=== PATIENT | male | born 1935 | race Two or more races ===

== ENCOUNTER → 2019-11-28 08:22 | Outpatient (BNVA) | payer MEDICARE, SELFPAY | PROVIDERS: PCP Internal Medicine; Referring Provider Internal Medicine; Visit Provider Internal Medicine | DX: I48.0 Paroxysmal atrial fibrillation (principal); Z51.81 Encounter for therapeutic drug level monitoring; Z79.01 Long term (current) use of anticoagulants | CPT/HCPCS: 85610; 99211 ==

== ENCOUNTER → 2019-12-12 11:10 | Outpatient (BNVA) | payer MEDICARE, SELFPAY | PROVIDERS: PCP Internal Medicine; Visit Provider Internal Medicine | DX: I48.0 Paroxysmal atrial fibrillation (principal); Z51.81 Encounter for therapeutic drug level monitoring; Z79.01 Long term (current) use of anticoagulants | CPT/HCPCS: 85610 ==

== ENCOUNTER → 2019-12-20 08:06 | Outpatient (BNVA) | payer MEDICARE, SELFPAY | PROVIDERS: PCP Internal Medicine; Referring Provider Internal Medicine; Visit Provider Nurse Practitioner Family | DX: G47.33 Obstructive sleep apnea (adult) (pediatric) (principal) | CPT/HCPCS: 99204 ==

== ENCOUNTER → 2019-12-21 10:58 | Outpatient (BNVA) | payer MEDICARE, SELFPAY | PROVIDERS: PCP Internal Medicine; Referring Provider Internal Medicine; Visit Provider Orthopaedic Surgery | DX: M17.11 Unilateral primary osteoarthritis, right knee (principal); S83.241D Other tear of medial meniscus, current injury, right knee, subsequent encounter | CPT/HCPCS: 99212 ==

== ENCOUNTER → 2019-12-26 10:36 | Outpatient (BNVA) | payer MEDICARE, SELFPAY | PROVIDERS: PCP Internal Medicine; Visit Provider Internal Medicine | DX: I48.0 Paroxysmal atrial fibrillation (principal); Z51.81 Encounter for therapeutic drug level monitoring; Z79.01 Long term (current) use of anticoagulants | CPT/HCPCS: 85610; 99211 ==

== ENCOUNTER → 2020-01-09 10:36 | Outpatient (BNVA) | payer MEDICARE, SELFPAY | PROVIDERS: PCP Internal Medicine; Visit Provider Internal Medicine | DX: I48.0 Paroxysmal atrial fibrillation (principal); Z51.81 Encounter for therapeutic drug level monitoring; Z79.01 Long term (current) use of anticoagulants | CPT/HCPCS: 85610; 99211 ==

== ENCOUNTER 2020-01-14 11:07 | Emergency (ER) | payer MEDICARE, SELFPAY ==
[2020-01-14 11:48] VITALS: BP 123/52; PULSE 70; RESP 16; TEMP 38.1; O2SAT 97; BMI 38.5
[2020-01-14 12:23] VITALS: BP 117/51; PULSE 64; RESP 18; TEMP 37.5; O2SAT 96
--- NOTE | 2020-01-14 12:59 | ED.ABDPAIN ---
HPI - Abdominal Pain General Chief Complaint: Abdominal Pain Stated Complaint: abd, face, eye pain Time Seen by Provider: 01/14/20 12:58 Source: patient Mode of arrival: ambulatory Limitations: no limitations History of Present Illness HPI narrative: This is a 84-year-old male with past medical history as noted below including history of anemia, anxiety / depression, BPH, COPD not on oxygen, gastroesophageal reflux disease, prior history of CVA, hypercholesteremia, hypertension, obesity, obstructive sleep apnea, paroxysmal atrial fibrillation on Pradaxa/Eliquis, peripheral vascular disease with surgical history of left knee replacement, tonsillectomy, total hip replacement transurethral reduction of the prostate presenting today with complaint of 1 day of left-sided abdominal pain in the left lower quadrant. Pain described as sharp and achy intermittent. There is some associated nausea but no vomiting or diarrhea. No dysuria. Patient is noted to be febrile with T-max on triage of 100.6 he otherwise denies any rhinorrhea, cough. Denies any dysuria or hematuria. MD elicited complaint: abdominal pain Pertinent past history: none Onset (ago): hour(s) Pain Consistency: constant Location: [facility] Severity: moderate Pain scale (0-10): 5 Quality: stabbing and aching Migration to: no migration Exacerbating factors: nothing Relieving factors: nothing Associated symptoms: denies other symptoms Related Data Home Medications Medication Instructions Recorded Confirmed albuterol sulfate 90 mcg/actuation 2 puff INHALATION Q4-6H PRN 12/15/19 01/13/20 aerosol inhaler atorvastatin 80 mg tablet 80 mg PO DAILY 12/15/19 01/13/20 carvedilol 25 mg tablet 25 mg PO BID 12/15/19 01/13/20 chlorthalidone 25 mg tablet 25 mg PO DAILY 12/15/19 01/13/20 losartan 100 mg tablet 100 mg PO DAILY 12/15/19 01/13/20 multivitamin-ferrous 1 tab PO DAILY 12/15/19 01/13/20 fumarate-folic acid 18 mg-400 mcg tablet qzliwtbqnadc-ortqwpjq-jhltja tablet 1 tab PO DAILY 12/15/19 01/13/20 sennosides 8.6 mg tablet 8.6 mg PO DAILY 12/15/19 01/13/20 terazosin 5 mg capsule 5 mg PO DAILY 12/15/19 01/13/20 verapamil 180 mg 24 hr 180 mg PO DAILY 12/15/19 01/13/20 capsule,extended release warfarin 5 mg tablet 5 mg PO DAILY 12/15/19 01/13/20 Previous Rx's Medication Instructions Recorded warfarin 5 mg tablet 5 mg PO DAILY #90 tab 11/28/19 diaper,brief,adult,disposable #56 ea 12/15/19 adult pull ups XL #120 ea 12/28/19 duloxetine 30 mg capsule,delayed 30 mg PO DAILY #28 cap 01/10/20 release furosemide 20 mg tablet 20 mg PO DAILY #28 tab 01/10/20 amoxicillin-pot clavulanate 1 tab PO Q12H 10 Days #20 tab 01/14/20 [Augmentin] ondansetron HCl [Zofran] 4 mg PO Q8H PRN #10 tab 01/14/20 Allergies Allergy/AdvReac Type Severity Reaction Status Date / Time dabigatran etexilate Allergy Intermediate ITCHING Verified 12/26/19 11:11 [From PRADAXA] JORGE L Inhibitors Allergy Mild UNKNOWN, Verified 12/26/19 11:11 [Jorge L Inhibitors] FOUND IN MEDICAL RECORD 04/[address] GIPSON ezetimibe [From Zetia] Allergy Mild ANAPHYLAXIS Verified 12/26/19 11:11 apixaban [From ELIQUIS] Allergy Unknown UNKNOWN, Verified 12/26/19 11:11 rash atorvastatin [From LIPITOR] Allergy Unknown UNKNOWN Verified 12/26/19 11:11 rosuvastatin [Crestor] Allergy Unknown myalgia Verified 12/26/19 11:11 Review of Systems Review of Systems Constitutional: No Weight loss, No Fever, No Chills, No Night Sweats, No Fatigue, No Malaise ENT/Mouth: No Hearing loss, No Ear Pain, No Nasal Congestion, No Sinus Pain, No Hoarseness, No sore throat, No Rhinorrhea, No Swallowing Difficulty Eyes: No Eye Pain, No Swelling, No Redness, No Foreign Body, No Discharge, No Vision Changes Cardiovascular: No Chest Pain, No SOB, No Dyspnea on Exertion, No Orthopnea, No Edema, No Palpitations Respiratory: No Cough, No Sputum, No Wheezing, No Smoke Exposure, No Dyspnea Gastrointestinal: + Nausea, No Vomiting, No Diarrhea, No Constipation, + abdominal Pain, No Hematochezia, No Melena Genitourinary: no irregular bleeding, No Dysuria, No Urinary Frequency, No Hematuria, No Urinary Incontinence, No Urgency, No Flank Pain, No Urinary Flow Changes, No Hesitancy Musculoskeletal: No joint pain, No Myalgias, No Joint Swelling Skin: No Skin Lesions, No rash Neuro: No Weakness, No Numbness, No Paresthesias, No Loss of Consciousness, No Dizziness, No Headache Psych: No Anxiety/Panic, No Depression, No SI/HI/AH/VH, No Social Issues Heme/Lymph: No Bruising, No Bleeding,No Lymphadenopathy Endocrine: No Polyuria, No Polydipsia, No Temperature Intolerance Yes all other systems are reviewed and are negative Physical Exam Vital Signs: Vital Signs: Last Vital Signs Temp 98.7 F 01/14/20 15:59 Pulse 62 01/14/20 15:59 Resp 14 01/14/20 15:59 BP 142/59 H 01/14/20 15:59 Pulse Ox 98 01/14/20 15:59 Body Mass Index 38.5 Reviewed Const: General: cooperative and healthy appearing; No acute distress or intoxicated appearing Nutritional Appearance: average body habitus Orientation/consciousness: patient oriented x3 HENMT: Head: Yes normal to inspection Ears: hearing grossly normal bilaterally Eyes: General: appearance normal, both eyes and all related structures Visual Rose: normal visual rose by confrontation Neck: Neck: Yes normal visual inspection and No tender Thyroid: Thyroid normal Chest: Chest palpation & inspection: normal inspection of the chest Resp: Effort & Inspection: normal respiratory effort Cardio: Jugular venous distension: no JVD GI: Inspection: Yes normal to inspection Palpation (GI): Soft to palpation, no guarding, not rigid and no masses Percussion: Yes normal to percussion Auscultation: normal bowel sounds : General: Yes no CVA tenderness Back/Spine/Pelvis: Back: no CVA tenderness Skin: General skin exam: no rashes or lesions noted Neuro: General: patient oriented x3 Extrem: General: Yes normal to inspection Course Course Course Narrative: Labs overall stable. No leukocytosis. Chest x-ray, COVID-19 negative[address]. [address] CT shows acute uncomplicated diverticulitis at the junction of the descending colon and sigmoid colon. No evidence of peritonitis. Patient well nontoxic appearing declined any pain medicine here. Will be discharged home with Augmentin/Zofran with clear return follow-up instructions. Stable for discharge. MDM - Abdominal Pain Differential Diagnosis Differential diagnosis: Likely abdominal pain, calculus of kidney and diverticulitis; Unlikely aortic dissection, acute appendicitis, bowel perforation, constipation, gastroenteritis, gastritis, mesenteric ischemia, pancreatitis, peptic ulcer disease, renal colic and small bowel obstruction Medical Records Attestation: I reviewed the patient's medical records. Lab Data Attestation: I reviewed the patient's lab results. Result diagrams: 01/14/20 13:51 01/14/20 13:51 Labs: Lab Results 01/14/20 01/14/20 01/14/20 Range/Units 13:51 13:51 13:51 WBC 10.3 (4.8-10.8) X10*3/uL RBC 3.93 L (4.60-5.80) X10*6/uL Hgb 11.0 L (14.0-18.0) g/dl Hct 34.3 L (42-52) % MCV 87.3 (80-98) fL MCH 28.0 (27.0-33.0) pg MCHC 32.1 (31.0-36.0) g/dl RDW 14.3 (11.0-16.0) % Plt Count 229 (160-400) X10*3/uL MPV 10.3 (9.4-12.4) fL Immature Gran % (Auto) 0.3 (0.0-0.4) % Neut % (Auto) 63.3 (45-73) % Lymph % (Auto) 27.1 (20-40) % Crisp % (Auto) 7.4 (2-11) % Eos % (Auto) 1.6 (0-4) % Baso % (Auto) 0.3 (0-2) % Lymph # (Auto) 2.8 (1.2-4.9) X10*3/uL Crisp # (Auto) 0.8 (0.1-1.2) X10*3/uL Eos # (Auto) 0.2 (0.0-0.4) X10*3/uL Baso # (Auto) 0.0 (0.0-0.2) X10*3/uL Abs Immat Gran (auto) 0.03 (0.00-0.03) X10*3/uL Absolute Neuts (auto) 6.5 (2.0-8.3) X10*3/uL Absolute Nucleated RBC 0.000 (0.0-0.012) X10*3/uL Nucleated RBC % (auto) 0.0 (0.0-0.2) /100WBC PT 38.5 H (10.8-13.0) SEC INR 3.2 H (0.9-1.1) APTT 46.2 H (24.1-38.0) SEC Sodium (135-145) mmol/L Potassium (3.3-5.1) mmol/l Chloride (96-108) mmol/L Carbon Dioxide (22-29) mmol/L Anion Gap (12-20) BUN (9-16) mg/dL Creatinine (0.5-1.4) mg/dL Estim Creat Clear Calc Estimated GFR Random Glucose (60-115) mg/dL Lactic Acid (0.5-2.0) mmol/L Calcium (8.4-10.2) mg/dL Total Bilirubin (0.0-1.0) mg/dL AST (5-37) U/L ALT (0-40) U/L Alkaline Phosphatase (39-117) U/L Total Protein (6.5-8.0) g/dL Albumin (3.5-5.0) g/dL Urine Color Urine Appearance Urine pH (5.0-8.0) Ur Specific [place] (1.005-1.025) Urine Protein (NEG-TRACE) MG/DL Urine Glucose (UA) (NEG) MG/DL Urine Ketones (NEG) MG/DL Urine Blood (NEG) Urine Nitrite (NEG) Ur Leukocyte Esterase (NEG) Urine RBC (0) /HPF Urine WBC (0-4) /HPF Ur Squamous Epith Cells /LPF Urine Bacteria /LPF COVID-19 (FERMIN) Negative (Negative) COVID-19 Clin Com See Note 01/14/20 01/14/20 01/14/20 Range/Units 13:51 13:51 13:51 WBC (4.8-10.8) X10*3/uL RBC (4.60-5.80) X10*6/uL Hgb (14.0-18.0) g/dl Hct (42-52) % MCV (80-98) fL MCH (27.0-33.0) pg MCHC (31.0-36.0) g/dl RDW (11.0-16.0) % Plt Count (160-400) X10*3/uL MPV (9.4-12.4) fL Immature Gran % (Auto) (0.0-0.4) % Neut % (Auto) (45-73) % Lymph % (Auto) (20-40) % Crisp % (Auto) (2-11) % Eos % (Auto) (0-4) % Baso % (Auto) (0-2) % Lymph # (Auto) (1.2-4.9) X10*3/uL Crisp # (Auto) (0.1-1.2) X10*3/uL Eos # (Auto) (0.0-0.4) X10*3/uL Baso # (Auto) (0.0-0.2) X10*3/uL Abs Immat Gran (auto) (0.00-0.03) X10*3/uL Absolute Neuts (auto) (2.0-8.3) X10*3/uL Absolute Nucleated RBC (0.0-0.012) X10*3/uL Nucleated RBC % (auto) (0.0-0.2) /100WBC PT (10.8-13.0) SEC INR (0.9-1.1) APTT (24.1-38.0) SEC Sodium 140 (135-145) mmol/L Potassium 3.3 (3.3-5.1) mmol/l Chloride 104 (96-108) mmol/L Carbon Dioxide 25 (22-29) mmol/L Anion Gap 14 (12-20) BUN 16 (9-16) mg/dL Creatinine 1.00 (0.5-1.4) mg/dL Estim Creat Clear Calc 56.2 Estimated GFR > 60 Random Glucose 95 (60-115) mg/dL Lactic Acid 1.2 (0.5-2.0) mmol/L Calcium 8.3 L (8.4-10.2) mg/dL Total Bilirubin 0.5 (0.0-1.0) mg/dL AST 19 (5-37) U/L ALT 20 (0-40) U/L Alkaline Phosphatase 71 (39-117) U/L Total Protein 6.1 L (6.5-8.0) g/dL Albumin 3.9 (3.5-5.0) g/dL Urine Color YELLOW Urine Appearance CLEAR Urine pH 6.5 (5.0-8.0) Ur Specific [place] 1.010 (1.005-1.025) Urine Protein NEG (NEG-TRACE) MG/DL Urine Glucose (UA) NEG (NEG) MG/DL Urine Ketones NEG (NEG) MG/DL Urine Blood NEG (NEG) Urine Nitrite NEG (NEG) Ur Leukocyte Esterase NEG (NEG) Urine RBC 0 (0) /HPF Urine WBC 0 (0-4) /HPF Ur Squamous Epith Cells TRACE /LPF Urine Bacteria NONE /LPF COVID-19 (FERMIN) (Negative) COVID-19 Clin Com Imaging Data CT scan - abdomen: Radiologist's impression: [place] [id number] CT Scan Report Signed Patient: Pal Da Silva SRMR#: [id number] : 1935cct:[id number] Age/Sex: 84 / MADM Date: 01/14/20 Loc: HO.ED Attending Dr: Ordering Physician: Bo Pierce NP Date of Service: 01/14/20 Procedure(s): CT abdomen pelvis wo con Accession Number(s): [id number] cc: Bo Pierce NP~ EXAMINATION: CT ABDOMEN AND PELVIS WITHOUT CONTRAST CLINICAL INFORMATION: Left-sided abdominal pain and fever COMPARISON: CT abdomen pelvis 11/15/2019 TECHNIQUE: Multidetector volumetric imaging was performed from the superior aspect of the liver through the pubic symphysis. Sagittal and coronal reformatted images were obtained on the technologist's workstation. This CT examination was performed using dose optimization techniques as appropriate, variously including the following: *Automated exposure control *Adjustment of mA and/or kV according to patient size (this includes techniques or standardized protocols for targeted exams where dose is matched to indication/reason for exam; i.e. extremities or head) *Use of iterative reconstruction technique DLP: 919 mGy-cm FINDINGS: LUNG BASES: Old left-sided rib fractures are seen. No infiltrates or effusions are present. LIVER, GALLBLADDER, AND BILIARY TREE: The liver is normal in size, shape, and attenuation. No focal hepatic lesion or biliary ductal dilatation is present. The gallbladder is unremarkable with no evidence of radiopaque gallstones, gallbladder wall thickening, or obvious pericholecystic inflammatory changes. PANCREAS: Unremarkable. SPLEEN: Unremarkable. ADRENAL GLANDS: Unremarkable. KIDNEYS AND URETERS: The kidneys are normal in size, shape, and attenuation. No hydronephrosis, hydroureter, or calculi seen. No perinephric stranding. BLADDER: Unremarkable. GASTROINTESTINAL TRACT: Diverticular changes are present in the colon, at the junction of the descending colon and sigmoid colon there are pericolonic inflammatory changes present with thickening of the anterior pararenal and lateral conal fascia consistent with acute diverticulitis. No extraluminal air or drainable fluid collection is seen. The small and large bowel are otherwise unremarkable. The appendix is is not seen. ABDOMINAL WALL: No significant hernia is appreciated. Tiny periumbilical hernia seen containing only fat. LYMPH NODES: No retroperitoneal lymphadenopathy seen. VASCULAR: Calcific atherosclerotic changes present in the aorta and iliofemoral vessels PELVIC VISCERA: Prostate and seminal vesicles appear normal. OSSEOUS STRUCTURES: A right hip prosthesis is present. Degenerative changes present in the spine with grade 1 anterolisthesis of L5 upon S1 with associated L5 bilateral pars defects. CT/CT abdomen pelvis wo con IMPRESSION: Acute uncomplicated diverticulitis at the junction of the descending colon and sigmoid colon. Dictated By:JACKSON CAZARES MD Signed By:<Electronically signed by JACKSON CAZARES MD in OV>01/14/20 1507 DD/ 1315 TD/TT: [employer] Operator: PAMELA Chest x-ray: Attestation: I personally reviewed and interpreted this imaging study as follows: Radiologist's impression: [address] [address] XRay Report Signed Patient: Pal Da Silva SRMR#: [id number] : 1936Acct:[id number] Age/Sex: 84 / MADM Date: 01/14/20 Loc: HO.ED Attending Dr: Ordering Physician: Bo Pierce NP Date of Service: 01/14/20 Procedure(s): XR chest 1V Accession Number(s): [id number] cc: Bo Pierce COVERING AND LINING SUPERVISOR~ EXAMINATION: XR CHEST CLINICAL INFORMATION: Fever COMPARISON: Previous chest x-ray February 2019 TECHNIQUE: Frontal view of the chest was obtained. FINDINGS: The cardiac and mediastinal contours are stable. The lungs are clear. There is no pleural effusion or pneumothorax. There are degenerative changes of the spine and right shoulder. XR/XR chest 1V IMPRESSION: No evidence of pneumonia. Dictated By:DAVEY SORIANO MD Signed By:<Electronically signed by DAVEY SORIANO MD in OV>01/14/20 1322 DD/ 1300 TD/TT: [employer] Operator: BETTY Discharge Plan Discharge Clinical Impression: Diverticulitis Patient Disposition: Home, Self-Care Instructions: Diverticulitis (ED), Diverticulitis Diet (ED) Prescriptions: New amoxicillin-pot clavulanate [Augmentin] 875-125 mg tablet 1 tab PO Q12H 10 Days Qty: 20 RF: 0 ondansetron HCl [Zofran] 4 mg tablet 4 mg PO Q8H PRN (Reason: nausea and vomiting) Qty: 10 RF: 0 No Action (DME) adult pull ups XL See Rx Instructions .Route .MEDSUPPLY Qty: 120 RF: 5 duloxetine 30 mg capsule,delayed release(DR/EC) 30 mg PO DAILY Qty: 28 RF: 3 furosemide 20 mg tablet 20 mg PO DAILY Qty: 28 RF: 3 Cerovite Advanced Formula 18-400 mg-mcg tablet 1 tab PO DAILY RF: 0 sennosides [Natural Senna Laxative] 8.6 mg tablet 8.6 mg PO DAILY RF: 0 omjzjqwnocjt-ceawioro-lxslhn Tablet 1 tab PO DAILY RF: 0 atorvastatin 80 mg tablet 80 mg PO DAILY RF: 0 terazosin 5 mg capsule 5 mg PO DAILY RF: 0 albuterol sulfate [ProAir HFA] 90 mcg/actuation HFA aerosol inhaler 2 puff inhalation Q4-6H PRN (Reason: Shortness Of Breath) RF: 0 losartan 100 mg tablet 100 mg PO DAILY RF: 0 carvedilol 25 mg tablet 25 mg PO BID RF: 0 verapamil [Verelan] 180 mg capsule,ext rel. pellets 24 hr 180 mg PO DAILY RF: 0 chlorthalidone 25 mg tablet 25 mg PO DAILY RF: 0 warfarin 5 mg tablet 5 mg PO DAILY RF: 0 (DME) Depend Underwear For Men L-XL Misc See Rx Instructions .ROUTE .MEDSUPPLY Qty: 56 RF: 0 warfarin 5 mg tablet 5 mg PO DAILY Qty: 90 RF: 0 Referrals: Po,Kenny Chavez MD [Primary Care Provider] - 5 days PMF Past Medical History Attestation statement: The following information was validated with the patient. Medical History Anemia Anxiety and depression BPH (benign prostatic hyperplasia) COPD (chronic obstructive pulmonary disease) GERD (gastroesophageal reflux disease) History of CVA (cerebrovascular accident) History of rib fracture Hypercholesterolemia Hypertension Obesity (BMI 30-39.9) Obstructive sleep apnea Paroxysmal atrial fibrillation Peripheral vascular disease Protrusion of lumbar intervertebral disc Surgical History History of left knee replacement History of tonsillectomy History of total right hip replacement History of transurethral resection of prostate Family History Family History (Updated 12/15/19 @ 09:07 by CHRISTY Patterson) Father No problems noted. Mother No problems noted. Social History Social History (Updated 12/21/19 @ 11:10 by Brittny Maldonado CMA) Smoking Status: Never smoker Use of substances other than those prescribed or required for medical reasons: No Advance Directives: No Advance Directives Information Provided: Yes Current occupational status: retired Current occupation: Right Handed
--- NOTE | 2020-01-14 13:00 | ECG_ITS ---
Test Reason : LLQPAIN Blood Pressure : / mmHG Vent. Rate : 063 BPM Atrial Rate : 063 BPM P-R Int : 264 ms QRS Dur : 132 ms QT Int : 470 ms P-R-T Axes : 052 003 057 degrees QTc Int : 480 ms Sinus rhythm with 1st degree A-V block Right bundle branch block Possible Lateral infarct (cited on or before 21-APR-2017) Abnormal ECG When compared with ECG of 15-NOV-2019 00:35, No significant change was found Referred By: Bo Pierce Electronically Signed By:MARIA FERNANDA ZHANG MD
--- NOTE | 2020-01-14 13:15 | CT_ITS ---
EXAMINATION: CT ABDOMEN AND PELVIS WITHOUT CONTRAST CLINICAL INFORMATION: Left-sided abdominal pain and fever COMPARISON: CT abdomen pelvis 11/15/2019 TECHNIQUE: Multidetector volumetric imaging was performed from the superior aspect of the liver through the pubic symphysis. Sagittal and coronal reformatted images were obtained on the technologist's workstation. This CT examination was performed using dose optimization techniques as appropriate, variously including the following: *Automated exposure control *Adjustment of mA and/or kV according to patient size (this includes techniques or standardized protocols for targeted exams where dose is matched to indication/reason for exam; i.e. extremities or head) *Use of iterative reconstruction technique DLP: 919 mGy-cm FINDINGS: LUNG BASES: Old left-sided rib fractures are seen. No infiltrates or effusions are present. LIVER, GALLBLADDER, AND BILIARY TREE: The liver is normal in size, shape, and attenuation. No focal hepatic lesion or biliary ductal dilatation is present. The gallbladder is unremarkable with no evidence of radiopaque gallstones, gallbladder wall thickening, or obvious pericholecystic inflammatory changes. PANCREAS: Unremarkable. SPLEEN: Unremarkable. ADRENAL GLANDS: Unremarkable. KIDNEYS AND URETERS: The kidneys are normal in size, shape, and attenuation. No hydronephrosis, hydroureter, or calculi seen. No perinephric stranding. BLADDER: Unremarkable. GASTROINTESTINAL TRACT: Diverticular changes are present in the colon, at the junction of the descending colon and sigmoid colon there are pericolonic inflammatory changes present with thickening of the anterior pararenal and lateral conal fascia consistent with acute diverticulitis. No extraluminal air or drainable fluid collection is seen. The small and large bowel are otherwise unremarkable. The appendix is is not seen. ABDOMINAL WALL: No significant hernia is appreciated. Tiny periumbilical hernia seen containing only fat. LYMPH NODES: No retroperitoneal lymphadenopathy seen. VASCULAR: Calcific atherosclerotic changes present in the aorta and iliofemoral vessels PELVIC VISCERA: Prostate and seminal vesicles appear normal. OSSEOUS STRUCTURES: A right hip prosthesis is present. Degenerative changes present in the spine with grade 1 anterolisthesis of L5 upon S1 with associated L5 bilateral pars defects. CT/CT abdomen pelvis wo con IMPRESSION: Acute uncomplicated diverticulitis at the junction of the descending colon and sigmoid colon.
--- NOTE | 2020-01-14 13:55 | PC.NURSE ---
PT DIFFICULT STICK. APRIL RN TO BEDSIDE WITH ULTRASOUND
[2020-01-14] MEDS: 0.9 % Sodium Chloride 1,000 ML 1000 ML IV (13:59)
[2020-01-14 14:22] LABS: MANUAL DIFF FLAG NO
[2020-01-14 14:26] LABS: Basophils Percent Auto 0.3 % (0-2); Eosinophils Absolute Auto 0.2 X10*3/uL (0.0-0.4); Eosinophils Percent Auto 1.6 % (0-4); Hematocrit 34.3 % (42-52); Imm Gran Abs Auto 0.03 X10*3/uL (0.00-0.03); Imm Gran Pct Auto 0.3 % (0.0-0.4); Lymphocytes Absolute Auto 2.8 X10*3/uL (1.2-4.9); Lymphocytes Percent Auto 27.1 % (20-40); Mean Corpuscular HGB Conc 32.1 g/dl (31.0-36.0); Mean Corpuscular Volume 87.3 fL (80-98); Mean Platelet Volume 10.3 fL (9.4-12.4); Monocytes Absolute Auto 0.8 X10*3/uL (0.1-1.2); Monocytes Percent Auto 7.4 % (2-11); Neutrophils Absolute Auto 6.5 X10*3/uL (2.0-8.3); Neutrophils Percent Auto 63.3 % (45-73); Platelet Count 229 X10*3/uL (160-400); Red Blood Count 3.93 X10*6/uL (4.60-5.80); Red Cell Distribution Width 14.3 % (11.0-16.0); White Blood Count 10.3 X10*3/uL (4.8-10.8)
[2020-01-14 14:31] LABS: Glucose Urine UA NEG (NEG); Leukocyte Esterase Urine NEG (NEG); Nitrite Urine NEG (NEG); PH 6.5 (5.0-8.0); Urine Blood NEG (NEG); Urine Ketones NEG (NEG); Urine Protein NEG (NEG-TRACE)
[2020-01-14 14:35] LABS: Appearance Urine CLEAR; Color Urine YELLOW
[2020-01-14 14:37] VITALS: BP 134/54; PULSE 63; RESP 16; TEMP 37; O2SAT 98
[2020-01-14 14:37] LABS: INTERNATIONAL NORM RATIO 3.2 (0.9-1.1); Prothrombin Time 38.5 SEC (10.8-13.0)
[2020-01-14 14:38] LABS: RBC Urine 0 /HPF (0); Squamous Epithelial Cell Urine TRACE /LPF; WBC Urine 0 /HPF (0-4)
[2020-01-14 14:40] LABS: COVID-19 Test Negative (Negative); IDNOW Serial# 9DD0AD1C; Partial Thromboplastin Time 46.2 SEC (24.1-38.0)
[2020-01-14 14:43] LABS: Lactic Acid 1.2 mmol/L (0.5-2.0)
[2020-01-14 14:48] LABS: Alanine Aminotransferase 20 U/L (0-40); Albumin Level 3.9 g/dL (3.5-5.0); Alkaline Phosphatase 71 U/L (39-117); Anion Gap 14 (12-20); Aspartate Amino Transferase 19 U/L (5-37); Bilirubin Total 0.5 mg/dL (0.0-1.0); Blood Urea Nitrogen 16 mg/dL (9-16); Calcium 8.3 mg/dL (8.4-10.2); Carbon Dioxide 25 mmol/L (22-29); Chloride 104 mmol/L (96-108); Creatinine Clr Calc Pharmacy 56.2; Estimated Glomerular Filt Rate > 60; Glucose Random 95 mg/dL (60-115); Potassium 3.3 mmol/l (3.3-5.1); Sodium 140 mmol/L (135-145); Total Protein 6.1 g/dL (6.5-8.0)
--- NOTE | 2020-01-14 15:11 | PC.NURSE ---
PT REFUSED MORPHINE AND ZOFRAN, STATING HE DID IS NOT EXPERIENCING PAIN AT THIS TIME, AND WOULD LIKE TO BE ABLE TO DRIVE HOME IF HE HAS TO. ALSO DENYING ANY NAUSEA AT THIS TIME. PAIN CURRENTLY CONTROLLED AT REST, BUT REMAINS REPRODUCIBLE IN [facility].
[2020-01-14 15:59] VITALS: BP 142/59; PULSE 62; RESP 14; TEMP 37.1; O2SAT 98
== END 2020-01-14 16:29 | disposition home or self-care (01) ==
PROVIDERS: Nurse Practitioner Primary Care; Emergency Provider Emergency Medicine; PCP Internal Medicine
DX: K57.92 Diverticulitis of intestine, part unspecified, without perforation or abscess without bleeding (principal); J44.9 Chronic obstructive pulmonary disease, unspecified; R10.12 Left upper quadrant pain; Z79.899 Other long term (current) drug therapy; Z20.828 Contact with and (suspected) exposure to other viral communicable diseases
CPT/HCPCS: 36415; 71045; 74176; 80053; 81001; 83605; 85025; 85610; 85730; 87040; 87635; 93005; 96361; 96374; 96375; 99284

== ENCOUNTER → 2020-01-16 13:46 | Outpatient (BNVA) | payer MEDICARE, SELFPAY | PROVIDERS: PCP Internal Medicine; Referring Provider Internal Medicine; Visit Provider Nurse Practitioner Family | DX: K21.9 Gastro-esophageal reflux disease without esophagitis (principal); K59.00 Constipation, unspecified | CPT/HCPCS: Q3014 ==

== ENCOUNTER → 2020-01-31 14:12 | Outpatient (BNVA) | payer MEDICARE, SELFPAY | PROVIDERS: PCP Internal Medicine; Visit Provider Internal Medicine | DX: I48.0 Paroxysmal atrial fibrillation (principal); Z51.81 Encounter for therapeutic drug level monitoring; Z79.01 Long term (current) use of anticoagulants | CPT/HCPCS: 85610; 99211 ==

== ENCOUNTER → 2020-02-07 09:09 | Outpatient (BNVA) | payer MEDICARE, SELFPAY | PROVIDERS: Visit Provider Student in an Organized Health Care Education/Training Program | DX: Z76.89 Persons encountering health services in other specified circumstances (principal) | CPT/HCPCS: 99202 ==

== ENCOUNTER 2020-02-07 13:32 | Emergency (ER) | payer MEDICARE, SELFPAY ==
[2020-02-07 13:34] VITALS: BP 135/66; PULSE 61; RESP 18; TEMP 37.1; O2SAT 98; BMI 37.3
[2020-02-07 16:00] VITALS: BP 132/62; PULSE 66; RESP 16; TEMP 37.1; O2SAT 100
== END 2020-02-07 16:30 | disposition left against medical advice (07) ==
PROVIDERS: Emergency Provider Emergency Medicine; PCP Internal Medicine
DX: R10.9 Unspecified abdominal pain (principal)
CPT/HCPCS: 99283

== ENCOUNTER 2020-02-08 14:33 | Inpatient (IN) | payer MEDICARE, SELFPAY ==
[2020-02-08 14:41] VITALS: BP 131/43; BP 135/70; PULSE 60; PULSE 85; RESP 16; TEMP 36.5; O2SAT 100; O2SAT 98; BMI 36.6
--- NOTE | 2020-02-08 14:49 | ECG_ITS ---
Test Reason : ABD PAIN Blood Pressure : / mmHG Vent. Rate : 053 BPM Atrial Rate : 053 BPM P-R Int : 230 ms QRS Dur : 124 ms QT Int : 490 ms P-R-T Axes : 044 008 073 degrees QTc Int : 459 ms Sinus bradycardia with 1st degree A-V block Right bundle branch block Abnormal ECG When compared with ECG of 14-JAN-2020 15:17, No significant changes seen Referred By: Nena Dumont Electronically Signed By:Jose F Lee
--- NOTE | 2020-02-08 14:53 | ED_ITS ---
HPI - Abdominal Pain General Chief Complaint: Abdominal Pain Stated Complaint: ABDPAIN Time Seen by Provider: 02/08/20 14:33 Source: patient and EMS Mode of arrival: EMS Limitations: no limitations History of Present Illness HPI narrative: 84-year-old male with past medical history of GERD, obstructive sleep apnea, BPH, hypertension, hyperlipidemia, AFib on Coumadin, COPD, hypertension presenting to the emergency department with abdominal pain x4 days. He states the pain is diffuse across his abdomen, described as a burning sensation. He states that has been intermittent pain but today has been more constant. He does suffer from constipation but had a bowel movement earlier today. He denies fevers, chest pain, cough, vomiting, dysuria, hematuria. He has shortness of breath which is his baseline due to his COPD disease, not on supplemental oxygen. MD elicited complaint: abdominal pain Onset (ago): day(s) (4) Related Data Home Medications Medication Instructions Recorded Confirmed albuterol sulfate 90 mcg/actuation 2 puff INHALATION Q4-6H PRN 12/15/19 02/07/20 aerosol inhaler atorvastatin 80 mg tablet 80 mg PO DAILY 12/15/19 02/07/20 carvedilol 25 mg tablet 25 mg PO BID 12/15/19 02/07/20 chlorthalidone 25 mg tablet 25 mg PO DAILY 12/15/19 02/07/20 losartan 100 mg tablet 100 mg PO DAILY 12/15/19 02/07/20 multivitamin-ferrous 1 tab PO DAILY 12/15/19 02/07/20 fumarate-folic acid 18 mg-400 mcg tablet dsjbvauyrjpw-kwhszqrl-aewfug tablet 1 tab PO DAILY 12/15/19 02/07/20 sennosides 8.6 mg tablet 8.6 mg PO DAILY 12/15/19 02/07/20 terazosin 5 mg capsule 5 mg PO DAILY 12/15/19 02/07/20 verapamil 180 mg 24 hr 180 mg PO DAILY 12/15/19 02/07/20 capsule,extended release warfarin 5 mg tablet 5 mg PO DAILY tab 02/07/20 02/07/20 Previous Rx's Medication Instructions Recorded diaper,brief,adult,disposable #56 ea 12/15/19 adult pull ups XL #120 ea 12/28/19 duloxetine 30 mg capsule,delayed 30 mg PO DAILY #28 cap 11/17/20 release furosemide 20 mg tablet 20 mg PO DAILY #28 tab 01/10/20 ondansetron HCl [Zofran] 4 mg PO Q8H PRN #10 tab 01/14/20 docusate sodium 100 mg capsule 100 mg PO DAILY #30 cap 01/16/20 fluticasone furoate 200 1 ea PO DAILY #56 cap 01/24/20 mcg-vilanterol 25 mcg/dose inhalation powder pantoprazole 40 mg tablet,delayed 40 mg PO DAILY #30 tab 01/24/20 release Allergies Allergy/AdvReac Type Severity Reaction Status Date / Time dabigatran etexilate Allergy Intermediate ITCHING Verified 02/07/20 09:24 [From PRADAXA] JORGE L Inhibitors Allergy Mild UNKNOWN, Verified 02/07/20 09:24 [Jorge L Inhibitors] FOUND IN MEDICAL RECORD 04/[address] GIPSON ezetimibe [From Zetia] Allergy Mild ANAPHYLAXIS Verified 02/07/20 09:24 apixaban [From ELIQUIS] Allergy Unknown UNKNOWN, Verified 02/07/20 09:24 rash atorvastatin [From LIPITOR] Allergy Unknown UNKNOWN Verified 02/07/20 09:24 rosuvastatin [Crestor] Allergy Unknown myalgia Verified 02/07/20 09:24 Review of Systems Constitutional: Denies fever(s) and Denies headache(s) Eyes: Reports no additional eye complaints Denies headache(s) and Denies nasal congestion Cardiovascular: Denies chest pain Respiratory: Denies cough Gastrointestinal: Reports abdominal pain, Denies constipation, Denies diarrhea and Denies vomiting Genitourinary: Denies hematuria Comments: no dysuria Musculoskeletal: Denies back pain Denies headache(s) Hematologic/Lymphatic: Reports easy bleeding and Reports easy bruising Physical Exam Vital Signs: Vital Signs: Last Vital Signs Temp 99.2 F 02/08/20 15:14 Pulse 57 02/08/20 15:14 Resp 13 02/08/20 15:14 BP 126/46 L 02/08/20 15:14 Pulse Ox 99 02/08/20 15:14 Body Mass Index 36.6 Const: General: cooperative Orientation/consciousness: patient oriented x3 HENMT: Head: Yes atraumatic Eyes: Pupils: Equal, round and reactive pupils present Neck: Neck: Yes trachea midline and Yes supple Chest: Chest palpation & inspection: normal inspection of the chest Resp: Effort & Inspection: normal respiratory effort and able to speak in complete sentences Auscultation: clear to auscultation bilaterally Cardio: Rate: regular rate Rhythm: regular rhythm and abnormal rhythm irregularly irregular GI: Inspection: No distended Palpation (GI): Soft to palpation and Tenderness to palpation present (GI) (diffuse tendernes but more focal to LLQ ) : General: Yes no CVA tenderness Back/Spine/Pelvis: Back: no CVA tenderness Skin: Other: warm skin Rashes: no rashes Neuro: General: patient oriented x3 and moves all extremities Cranial nerves: Yes Equal, round and reactive pupils present Extrem: General: No edema Course Reevaluation(s) Reevaluation #1: pt. resting, VS remain stable. He states he is resting, abdominal pain improving. Time: 16:07 Reevaluation #2: Labs reviewed, leukocytosis of 14.4, stable anemia, baseline, BUN is elevated. Normal LFTs. Normal lipase. Troponin unremarkable. Urine is negative for infection. Waiting on CT imaging of his abdomen. Time: 16:43 Reevaluation #3: CT reviewed, pt.having persistent inflammatory changes and focally tender to abdomen will admit and provide IV antibiotics. Pt. aware of admission. Awaiting database administration manager back from hospitalist. Time: 18:20 Additional Reevaluation(s): 18:39, hospitalist called and accepted the pt. MDM - Abdominal Pain MDM Narrative Medical decision making narrative: 84-year-old male presenting to the emergency department with abdominal pain x4 days, recent diverticulitis on 01/13, history of prior cholecystectomy Vitals stable, nontoxic appearing, hemodynamically stable Check basic labs to assess for leukocytosis, anemia, renal dysfunction. We will check for electrolyte abnormalities. Will check LFTs for acute hepatobiliary disease, lipase for acute pancreatitis. Will check UA for signs of infection. Patient has diffuse tenderness will plan for abdominal CT. He had a recent diagnosis of diverticulitis that was treated with antibiotics pain could be secondary to gastritis however this is a diagnosis of exclusion. Will assess for perforation on CT as well, however the this has been several weeks since his treatment therefore this is lower suspicion. Mesenteric ischemia considered given his history however pain is not out of proportion to exam. Less likely h ave an obstruction given he is not vomiting, had a bowel movement today. Will check troponin and EKG for signs of ischemia as well. Will check INR given he is on Coumadin. EKG is sinus bradycardia rate 53, T wave inversion V1, RBBB, no STEMI Will give him a GI cocktail and monitor on the property assessment monitor Lab Data Result diagrams: 02/08/20 15:48 02/08/20 15:48 Labs: Lab Results 02/08/20 02/08/20 02/08/20 Range/Units 15:48 15:48 15:48 WBC 14.4 H (4.8-10.8) X10*3/uL RBC 3.98 L (4.60-5.80) X10*6/uL Hgb 11.3 L (14.0-18.0) g/dl Hct 35.1 L (42-52) % MCV 88.2 (80-98) fL MCH 28.4 (27.0-33.0) pg MCHC 32.2 (31.0-36.0) g/dl RDW 14.9 (11.0-16.0) % Plt Count 222 (160-400) X10*3/uL MPV 10.0 (9.4-12.4) fL Immature Gran % (Auto) 0.5 H (0.0-0.4) % Neut % (Auto) 72.6 (45-73) % Lymph % (Auto) 18.0 L (20-40) % [place] % (Auto) 8.5 (2-11) % Eos % (Auto) 0.3 (0-4) % Baso % (Auto) 0.1 (0-2) % Lymph # (Auto) 2.6 (1.2-4.9) X10*3/uL [place] # (Auto) 1.2 (0.1-1.2) X10*3/uL Eos # (Auto) 0.0 (0.0-0.4) X10*3/uL Baso # (Auto) 0.0 (0.0-0.2) X10*3/uL Abs Immat Gran (auto) 0.07 H (0.00-0.03) X10*3/uL Absolute Neuts (auto) 10.5 H (2.0-8.3) X10*3/uL Absolute Nucleated RBC 0.000 (0.0-0.012) X10*3/uL Nucleated RBC % (auto) 0.0 (0.0-0.2) /100WBC PT (10.8-13.0) SEC INR (0.9-1.1) Sodium 140 (135-145) mmol/L Potassium 4.2 D (3.3-5.1) mmol/l Chloride 107 (96-108) mmol/L Carbon Dioxide 27 (22-29) mmol/L Anion Gap 10 L (12-20) BUN 33 H D (9-16) mg/dL Creatinine 1.11 (0.5-1.4) mg/dL Estim Creat Clear Calc 49.2 Estimated GFR > 60 Random Glucose 118 H (60-115) mg/dL Lactic Acid (0.5-2.0) mmol/L Calcium 8.1 L (8.4-10.2) mg/dL Total Bilirubin 0.3 (0.0-1.0) mg/dL Direct Bilirubin 0.2 (0.0-0.5) mg/dL AST 21 (5-37) U/L ALT 26 (0-40) U/L Alkaline Phosphatase 57 (39-117) U/L Troponin I High Sens (<3.5-35.0) ng/L Total Protein 6.0 L (6.5-8.0) g/dL Albumin 3.9 (3.5-5.0) g/dL Lipase 24 (8-78) U/L Urine Color Urine Appearance Urine pH (5.0-8.0) Ur Specific [place] (1.005-1.025) Urine Protein (NEG-TRACE) MG/DL Urine Glucose (UA) (NEG) MG/DL Urine Ketones (NEG) MG/DL Urine Blood (NEG) Urine Nitrite (NEG) Ur Leukocyte Esterase (NEG) 02/08/20 02/08/20 02/08/20 Range/Units 15:48 15:48 15:48 WBC (4.8-10.8) X10*3/uL RBC (4.60-5.80) X10*6/uL Hgb (14.0-18.0) g/dl Hct (42-52) % MCV (80-98) fL MCH (27.0-33.0) pg MCHC (31.0-36.0) g/dl RDW (11.0-16.0) % Plt Count (160-400) X10*3/uL MPV (9.4-12.4) fL Immature Gran % (Auto) (0.0-0.4) % Neut % (Auto) (45-73) % Lymph % (Auto) (20-40) % [place] % (Auto) (2-11) % Eos % (Auto) (0-4) % Baso % (Auto) (0-2) % Lymph # (Auto) (1.2-4.9) X10*3/uL [place] # (Auto) (0.1-1.2) X10*3/uL Eos # (Auto) (0.0-0.4) X10*3/uL Baso # (Auto) (0.0-0.2) X10*3/uL Abs Immat Gran (auto) (0.00-0.03) X10*3/uL Absolute Neuts (auto) (2.0-8.3) X10*3/uL Absolute Nucleated RBC (0.0-0.012) X10*3/uL Nucleated RBC % (auto) (0.0-0.2) /100WBC PT 33.6 H (10.8-13.0) SEC INR 2.8 H (0.9-1.1) Sodium (135-145) mmol/L Potassium (3.3-5.1) mmol/l Chloride (96-108) mmol/L Carbon Dioxide (22-29) mmol/L Anion Gap (12-20) BUN (9-16) mg/dL Creatinine (0.5-1.4) mg/dL Estim Creat Clear Calc Estimated GFR Random Glucose (60-115) mg/dL Lactic Acid 1.4 (0.5-2.0) mmol/L Calcium (8.4-10.2) mg/dL Total Bilirubin (0.0-1.0) mg/dL Direct Bilirubin (0.0-0.5) mg/dL AST (5-37) U/L ALT (0-40) U/L Alkaline Phosphatase (39-117) U/L Troponin I High Sens 14.1 (<3.5-35.0) ng/L Total Protein (6.5-8.0) g/dL Albumin (3.5-5.0) g/dL Lipase (8-78) U/L Urine Color Urine Appearance Urine pH (5.0-8.0) Ur Specific [place] (1.005-1.025) Urine Protein (NEG-TRACE) MG/DL Urine Glucose (UA) (NEG) MG/DL Urine Ketones (NEG) MG/DL Urine Blood (NEG) Urine Nitrite (NEG) Ur Leukocyte Esterase (NEG) 02/08/20 Range/Units 15:48 WBC (4.8-10.8) X10*3/uL RBC (4.60-5.80) X10*6/uL Hgb (14.0-18.0) g/dl Hct (42-52) % MCV (80-98) fL MCH (27.0-33.0) pg MCHC (31.0-36.0) g/dl RDW (11.0-16.0) % Plt Count (160-400) X10*3/uL MPV (9.4-12.4) fL Immature Gran % (Auto) (0.0-0.4) % Neut % (Auto) (45-73) % Lymph % (Auto) (20-40) % [place] % (Auto) (2-11) % Eos % (Auto) (0-4) % Baso % (Auto) (0-2) % Lymph # (Auto) (1.2-4.9) X10*3/uL [place] # (Auto) (0.1-1.2) X10*3/uL Eos # (Auto) (0.0-0.4) X10*3/uL Baso # (Auto) (0.0-0.2) X10*3/uL Abs Immat Gran (auto) (0.00-0.03) X10*3/uL Absolute Neuts (auto) (2.0-8.3) X10*3/uL Absolute Nucleated RBC (0.0-0.012) X10*3/uL Nucleated RBC % (auto) (0.0-0.2) /100WBC PT (10.8-13.0) SEC INR (0.9-1.1) Sodium (135-145) mmol/L Potassium (3.3-5.1) mmol/l Chloride (96-108) mmol/L Carbon Dioxide (22-29) mmol/L Anion Gap (12-20) BUN (9-16) mg/dL Creatinine (0.5-1.4) mg/dL Estim Creat Clear Calc Estimated GFR Random Glucose (60-115) mg/dL Lactic Acid (0.5-2.0) mmol/L Calcium (8.4-10.2) mg/dL Total Bilirubin (0.0-1.0) mg/dL Direct Bilirubin (0.0-0.5) mg/dL AST (5-37) U/L ALT (0-40) U/L Alkaline Phosphatase (39-117) U/L Troponin I High Sens (<3.5-35.0) ng/L Total Protein (6.5-8.0) g/dL Albumin (3.5-5.0) g/dL Lipase (8-78) U/L Urine Color YELLOW Urine Appearance CLEAR Urine pH 5.5 (5.0-8.0) Ur Specific [place] 1.020 (1.005-1.025) Urine Protein NEG (NEG-TRACE) MG/DL Urine Glucose (UA) NEG (NEG) MG/DL Urine Ketones NEG (NEG) MG/DL Urine Blood NEG (NEG) Urine Nitrite NEG (NEG) Ur Leukocyte Esterase NEG (NEG) [place] [id number] CT Scan Report Signed Patient: Pal Da Silva SRMR#: [id number] : 7Acct:[id number] Age/Sex: 84 / MADM Date: 02/08/20 Loc: HO.ED Attending Dr: Ordering Physician: JANETT LUGO Date of Service: 02/08/20 Procedure(s): CT abdomen pelvis w con Accession Number(s): [id number] cc: JANETT LUGO~ EXAMINATION: CT ABDOMEN AND PELVIS WITH CONTRAST CLINICAL INFORMATION: Abdominal pain with recent diagnosis of diverticulitis. COMPARISON: CT abdomen and pelvis 01/14/2020. TECHNIQUE: Multidetector volumetric images were obtained from the superior aspect of the liver through the pubic symphysis following administration 85 mL of Omnipaque 350 intravenous contrast. Sagittal and coronal reformatted images were obtained on the technologist's workstation. Oral Contrast: No. This CT examination was performed using dose optimization techniques as appropriate, variously including the following: *Automated exposure control. *Adjustment of mA and/or kV according to patient size (this includes techniques or standardized protocols for targeted exams where dose is matched to indication/reason for exam; i.e. extremities or head). *Use of iterative reconstruction technique. DLP: 923 mGy-cm FINDINGS: LUNG BASES: The visualized lung bases are unremarkable. LIVER, GALLBLADDER, AND BILIARY TREE: The liver is normal in size, shape, and attenuation. No focal hepatic lesion or biliary ductal dilatation is present. The gallbladder is contracted but otherwise unremarkable with no evidence of radiopaque gallstones, gallbladder wall thickening, or obvious pericholecystic inflammatory changes. PANCREAS: Unremarkable. SPLEEN: Unremarkable. ADRENAL GLANDS: Unremarkable. KIDNEYS AND URETERS: The kidneys are normal in size, shape, and attenuation. A small right lower pole renal cyst is apparent. No solid masses are seen. No hydronephrosis, hydroureter, or calculi seen. No perinephric stranding. BLADDER: Unremarkable. GASTROINTESTINAL TRACT: Again seen are changes of diverticulitis in the distal descending colon and proximal sigmoid. Compared to the prior study, the inflammatory changes are slightly improved with decreased thickening of the anterior pararenal fascia. As before, no extraluminal air or fluid collections are seen. Diverticular changes are also present right in the right colon without evidence of diverticulitis. The small and large bowel are otherwise unremarkable. The appendix is not seen. ABDOMINAL WALL: A tiny periumbilical hernia is seen containing only fat. LYMPH NODES: No retroperitoneal lymphadenopathy. VASCULAR: Again seen are calcific atherosclerotic changes in the aorta and iliofemoral vessels. PELVIC VISCERA: Unremarkable. OSSEOUS STRUCTURES: Right hip prosthesis present along with redemonstrated degenerative changes in the spine most marked at L5-S1. CT/CT abdomen pelvis w con IMPRESSION: A cause for worsening abdominal pain has not been found. Resolving changes of diverticulitis as described above. Some inflammatory changes persist. Dictated By:JACKSON CAZARES MD Signed By:<Electronically signed by JACKSON CAZARES MD in OV>02/08/20 1871 Discharge Plan Discharge Clinical Impression: Diverticulitis Patient Disposition: Admitted As Inpatient [facility] Past Medical History Medical History Anemia Anxiety and depression BPH (benign prostatic hyperplasia) COPD (chronic obstructive pulmonary disease) GERD (gastroesophageal reflux disease) History of CVA (cerebrovascular accident) History of rib fracture Hypercholesterolemia Hypertension Obesity (BMI 30-39.9) Obstructive sleep apnea Paroxysmal atrial fibrillation Peripheral vascular disease Protrusion of lumbar intervertebral disc Surgical History History of left knee replacement History of tonsillectomy History of total right hip replacement History of transurethral resection of prostate Family History Family History Father No problems noted. Mother No problems noted. 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
[2020-02-08 15:14] VITALS: BP 126/46; PULSE 57; RESP 13; TEMP 37.3; O2SAT 99
[2020-02-08] MEDS: Famotidine/PF 20 MG/2 ML VIAL IVPUSH (15:52)
[2020-02-08] MEDS: Lidocaine HCl Viscous 2 % 15 ML SOLUTION MUCOUS MEM (15:52)
[2020-02-08] MEDS: Magnesium Hydrox/Alum Hydrox 30 ML ORAL.SUSP PO (15:52)
[2020-02-08 16:02] LABS: Basophils Percent Auto 0.1 % (0-2); Eosinophils Percent Auto 0.3 % (0-4); Hematocrit 35.1 % (42-52); Hemoglobin 11.3 g/dl (14.0-18.0); Imm Gran Abs Auto 0.07 X10*3/uL (0.00-0.03); Imm Gran Pct Auto 0.5 % (0.0-0.4); Lymphocytes Absolute Auto 2.6 X10*3/uL (1.2-4.9); MANUAL DIFF FLAG NO; Mean Corpuscular HGB Conc 32.2 g/dl (31.0-36.0); Mean Corpuscular Hemoglobin 28.4 pg (27.0-33.0); Mean Corpuscular Volume 88.2 fL (80-98); Monocytes Absolute Auto 1.2 X10*3/uL (0.1-1.2); Monocytes Percent Auto 8.5 % (2-11); Neutrophils Absolute Auto 10.5 X10*3/uL (2.0-8.3); Neutrophils Percent Auto 72.6 % (45-73); Platelet Count 222 X10*3/uL (160-400); Red Blood Count 3.98 X10*6/uL (4.60-5.80); Red Cell Distribution Width 14.9 % (11.0-16.0); White Blood Count 14.4 X10*3/uL (4.8-10.8)
[2020-02-08 16:05] LABS: Glucose Urine UA NEG (NEG); Leukocyte Esterase Urine NEG (NEG); Nitrite Urine NEG (NEG); PH 5.5 (5.0-8.0); Urine Blood NEG (NEG); Urine Ketones NEG (NEG); Urine Protein NEG (NEG-TRACE)
[2020-02-08 16:09] LABS: Appearance Urine CLEAR; Color Urine YELLOW; INTERNATIONAL NORM RATIO 2.8 (0.9-1.1); Prothrombin Time 33.6 SEC (10.8-13.0)
[2020-02-08 16:27] LABS: Lactic Acid 1.4 mmol/L (0.5-2.0)
[2020-02-08 16:31] LABS: Anion Gap 10 (12-20); Blood Urea Nitrogen 33 mg/dL (9-16); Calcium 8.1 mg/dL (8.4-10.2); Carbon Dioxide 27 mmol/L (22-29); Chloride 107 mmol/L (96-108); Creatinine Clr Calc Pharmacy 49.2; Estimated Glomerular Filt Rate > 60; Glucose Random 118 mg/dL (60-115); Potassium 4.2 mmol/l (3.3-5.1); Sodium 140 mmol/L (135-145)
[2020-02-08 16:32] LABS: Alanine Aminotransferase 26 U/L (0-40); Albumin Level 3.9 g/dL (3.5-5.0); Alkaline Phosphatase 57 U/L (39-117); Aspartate Amino Transferase 21 U/L (5-37); Bilirubin Direct 0.2 mg/dL (0.0-0.5); Bilirubin Total 0.3 mg/dL (0.0-1.0); Lipase 24 U/L (8-78)
[2020-02-08 16:36] LABS: Troponin-I High Sensitivity 14.1 ng/L (<3.5-35.0)
[2020-02-08] MEDS: iohexoL 350 MG/ML 100 ML INFUS..BTL IV (16:50)
[2020-02-08] MEDS: cefTRIAXone sodium 1 GM in 0.9 % Sodium Chloride 50 ML IV (18:46)
[2020-02-08 18:49] VITALS: BP 160/66; PULSE 57; RESP 13; TEMP 37.3; O2SAT 99
[2020-02-08] MEDS: metroNIDAZOLE/NS 500 MG/100 ML PIGGYBACK 100 MG IV (19:23)
[2020-02-08 19:53] LABS: COVID-19 Test Negative (Negative)
--- NOTE | 2020-02-08 21:58 | PM.IMHP ---
History of Present Illness Date of Service: 02/08/20 Chief Complaint: abdominal pain 84 y/o male who PMHX of PMH of TIA, COPD, GHULAM, HTN, AFib who presented from home c/o abdominal pain x 4 days. Per history provided by the patient, for the past 4 days has been having worsening abdominal pain, diffuse, 10/10 in intensity, diffuse, sharp like, not associated with any chest pain, SOB, nausea or vomiting. Patient was treated one month ago for diverticulitis. On presentation to the ED vitals were stable, no evidence of fever, WBC of 14, CT abdomen showing resolving diverticulitis but inflammatory changes that persist. Patient was given Rocephin, Flagyl and Pain control meds in the ED. Decision for admission given. Patient seen and examined at the bedside, laying down in bed in no acute distress. Abdominal pain resolved at present. ROS as above otherwise negative. Physical exam unremarkable. PMHx: TIA, COPD, GHULAM, HTN, HOCM and AFib PSx; 1. Left total knee arthroplasty in 2007 about . 2. Tonsillectomy. 3. He has also reported that he has had a hip surgery on the right side before. Toxic habits: Remote smoker, no hx of alcohol abuse or IVDA Review of Systems Constitutional: Constitutional: Reports as per HPI Gastrointestinal: Gastrointestinal: Reports abdominal pain [facility] Medical History Anemia Anxiety and depression BPH (benign prostatic hyperplasia) COPD (chronic obstructive pulmonary disease) GERD (gastroesophageal reflux disease) History of CVA (cerebrovascular accident) History of rib fracture Hypercholesterolemia Hypertension Obesity (BMI 30-39.9) Obstructive sleep apnea Paroxysmal atrial fibrillation Peripheral vascular disease Protrusion of lumbar intervertebral disc Family History Father No problems noted. Mother No problems noted. 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 GIPSON ezetimibe [From Zetia] Allergy Mild ANAPHYLAXIS Verified 02/07/20 09:24 apixaban [From ELIQUIS] Allergy Unknown UNKNOWN, Verified 02/07/20 09:24 rash atorvastatin [From LIPITOR] Allergy Unknown UNKNOWN Verified 02/07/20 09:24 rosuvastatin [Crestor] Allergy Unknown myalgia Verified 02/07/20 09:24 Home Medications Medication Instructions Recorded Confirmed Type albuterol sulfate 90 mcg/actuation 2 puff INHALATION Q4-6H PRN 12/15/19 02/08/20 History aerosol inhaler atorvastatin 80 mg tablet 80 mg PO DAILY 12/15/19 02/08/20 History carvedilol 25 mg tablet 25 mg PO BID 12/15/19 02/08/20 History chlorthalidone 25 mg tablet 25 mg PO DAILY 12/15/19 02/08/20 History losartan 100 mg tablet 100 mg PO DAILY 12/15/19 02/08/20 History sennosides 8.6 mg tablet 8.6 mg PO DAILY PRN 12/15/19 02/08/20 History terazosin 5 mg capsule 5 mg PO DAILY 12/15/19 02/08/20 History verapamil 180 mg 24 hr 180 mg PO DAILY 12/15/19 02/08/20 History capsule,extended release warfarin 5 mg tablet 5 mg PO DAILY tab 02/07/20 02/07/20 History [id number] tab PO 02/08/20 History [Cerovite Senior] simethicone [Mi-Acid Gas mg PO 02/08/20 History Relief(simethicon)] tamsulosin 1 cap PO DAILY 02/08/20 02/08/20 History warfarin 2.5 mg PO SUTUWETHSA@1800 02/08/20 02/08/20 History warfarin 5 mg PO MOWEFR@1800 02/08/20 02/08/20 History Physical Exam Vital Signs and Narrative: Vital Signs: Last Vital Signs Temp 99.1 F 02/08/20 18:49 Pulse 57 02/08/20 18:49 Resp 13 02/08/20 18:49 BP 160/66 H 02/08/20 18:49 Pulse Ox 99 02/08/20 18:49 Body Mass Index 36.6 Const: General: cooperative, comfortable and no acute distress HENMT: Head: Yes normal to inspection Eyes: General: appearance normal, both eyes and all related structures Neck: Yes normal visual inspection Chest: Chest palpation & inspection: normal inspection of the chest Resp: Effort & Inspection: normal respiratory effort Auscultation: clear to auscultation bilaterally Cardio: Jugular venous distension: no JVD Rate: regular rate Rhythm: regular rhythm Heart sounds: S1 normal heart sound present and S2 normal heart sound present GI: Inspection: Yes normal to inspection Percussion: Yes normal to percussion Skin: General skin exam: no rashes or lesions noted Results Labs CBC and Chem 7: 02/08/20 15:48 02/08/20 15:48 Labs: Laboratory Results - last 24 hr 02/08/20 02/08/20 02/08/20 15:48 15:48 15:48 MCV 88.2 MCH 28.4 MCHC 32.2 RDW 14.9 Plt Count 222 MPV 10.0 Immature Gran % (Auto) 0.5 H Neut % (Auto) 72.6 Lymph % (Auto) 18.0 L [place] % (Auto) 8.5 Eos % (Auto) 0.3 Baso % (Auto) 0.1 Lymph # (Auto) 2.6 [place] # (Auto) 1.2 Eos # (Auto) 0.0 Baso # (Auto) 0.0 Abs Immat Gran (auto) 0.07 H Absolute Neuts (auto) 10.5 H Absolute Nucleated RBC 0.000 Nucleated RBC % (auto) 0.0 PT INR Anion Gap 10 L Estim Creat Clear Calc 49.2 Estimated GFR > 60 Random Glucose 118 H Lactic Acid Calcium 8.1 L Total Bilirubin 0.3 Direct Bilirubin 0.2 AST 21 ALT 26 Alkaline Phosphatase 57 Troponin I High Sens Total Protein 6.0 L Albumin 3.9 Lipase 24 Urine Color Urine Appearance Urine pH Ur Specific [place] Urine Protein Urine Glucose (UA) Urine Ketones Urine Blood Urine Nitrite Ur Leukocyte Esterase COVID-19 (FERMIN) COVID-19 Clin Com 02/08/20 02/08/20 02/08/20 15:48 15:48 15:48 MCV MCH MCHC RDW Plt Count MPV Immature Gran % (Auto) Neut % (Auto) Lymph % (Auto) [place] % (Auto) Eos % (Auto) Baso % (Auto) Lymph # (Auto) [place] # (Auto) Eos # (Auto) Baso # (Auto) Abs Immat Gran (auto) Absolute Neuts (auto) Absolute Nucleated RBC Nucleated RBC % (auto) PT 33.6 H INR 2.8 H Anion Gap Estim Creat Clear Calc Estimated GFR Random Glucose Lactic Acid 1.4 Calcium Total Bilirubin Direct Bilirubin AST ALT Alkaline Phosphatase Troponin I High Sens 14.1 Total Protein Albumin Lipase Urine Color Urine Appearance Urine pH Ur Specific [place] Urine Protein Urine Glucose (UA) Urine Ketones Urine Blood Urine Nitrite Ur Leukocyte Esterase COVID-19 (FERMIN) COVID-19 [employer] Com 02/08/20 02/08/20 15:48 19:29 MCV MCH MCHC RDW Plt Count MPV Immature Gran % (Auto) Neut % (Auto) Lymph % (Auto) [place] % (Auto) Eos % (Auto) Baso % (Auto) Lymph # (Auto) [place] # (Auto) Eos # (Auto) Baso # (Auto) Abs Immat Gran (auto) Absolute Neuts (auto) Absolute Nucleated RBC Nucleated RBC % (auto) PT INR Anion Gap Estim Creat Clear Calc Estimated GFR Random Glucose Lactic Acid Calcium Total Bilirubin Direct Bilirubin AST ALT Alkaline Phosphatase Troponin I High Sens Total Protein Albumin Lipase Urine Color YELLOW Urine Appearance CLEAR Urine pH 5.5 Ur Specific [place] 1.020 Urine Protein NEG Urine Glucose (UA) NEG Urine Ketones NEG Urine Blood NEG Urine Nitrite NEG Ur Leukocyte Esterase NEG COVID-19 (FERMIN) Negative COVID-19 Clin Com See Note Imaging Radiologist's Impressions: Impressions Abdomen/Pelvis CT 02/08/20 14:51 IMPRESSION: A cause for worsening abdominal pain has not been found. Resolving changes of diverticulitis as described above. Some inflammatory changes persist. Assessment and Plan (1) Diverticulitis: Status: Acute NPO / advance diet as tolerated Continue with IV antbx as ordered Follow up Bcx Pain control Infectious disease consult in the am GI consult in the am (2) COPD (chronic obstructive pulmonary disease): Qualifiers: COPD type: emphysema Emphysema type: unspecified Qualified Code(s): J43.9 - Emphysema, unspecified Status: Acute continue with inhalers home dose (3) Hypercholesterolemia: Status: Acute continue with statin home dose (4) Hypertension: Qualifiers: Hypertension type: essential hypertension Qualified Code(s): I10 - Essential (primary) hypertension Status: Acute continue with carvedilol home dose continue with chlorthalidone home dose continue with losartan home dose continue with verapamil home dose (5) Constipation: Status: Acute continue with docusate home dose continue with senna home dose (6) Peripheral neuropathy: Status: Acute continue with duloxetine home dose (7) CHF (congestive heart failure): Status: Acute continue with lasix home dose (8) GERD (gastroesophageal reflux disease): Status: Acute (9) BPH (benign prostatic hyperplasia): Problem details: Dora Alegria 11/2017 Status: Acute continue with flomax home dose (10) Paroxysmal atrial fibrillation: Problem details: May 2018 normal LV with a symmetric hypertrophy, mild dilatation left atrium mild mitral regurg, H 0 cm cardiomyopathy nuclear stress June 24 [id number] July 2018 negative Status: Acute continue with coumadin home dose monitor INR daily
[2020-02-08 22:01] VITALS: BP 133/55; PULSE 57
[2020-02-08] MEDS: carvediloL 25 MG TABLET PO (22:01)
[2020-02-08] MEDS: Heparin Sodium,Porcine 5,000 UNIT/ML VIAL 5000 UNIT SUBCUT (22:04)
[2020-02-09 01:01] VITALS: BP 164/71; PULSE 50; RESP 18; TEMP 36.8; O2SAT 99
[2020-02-09] MEDS: 0.9 % Sodium Chloride Flush 3 ML SYRINGE IVFLUSH ×2 (01:14→10:39)
[2020-02-09 03:05] VITALS: BP 137/58; PULSE 54; RESP 17; TEMP 36.1; O2SAT 99
[2020-02-09] MEDS: metroNIDAZOLE/NS 500 MG/100 ML PIGGYBACK 100 MG IV ×2 (03:26→10:43)
[2020-02-09] MEDS: Omeprazole 20 MG CAPSULE.DR PO (05:44)
[2020-02-09 06:48] LABS: MANUAL DIFF FLAG NO
[2020-02-09 06:56] LABS: Basophils Percent Auto 0.1 % (0-2); Eosinophils Percent Auto 0.3 % (0-4); Hematocrit 36.2 % (42-52); Hemoglobin 11.5 g/dl (14.0-18.0); Imm Gran Abs Auto 0.06 X10*3/uL (0.00-0.03); Imm Gran Pct Auto 0.5 % (0.0-0.4); Lymphocytes Absolute Auto 2.5 X10*3/uL (1.2-4.9); Lymphocytes Percent Auto 22.3 % (20-40); Mean Corpuscular HGB Conc 31.8 g/dl (31.0-36.0); Mean Corpuscular Volume 88.1 fL (80-98); Mean Platelet Volume 10.4 fL (9.4-12.4); Monocytes Absolute Auto 0.8 X10*3/uL (0.1-1.2); Monocytes Percent Auto 6.8 % (2-11); Neutrophils Absolute Auto 7.7 X10*3/uL (2.0-8.3); Platelet Count 191 X10*3/uL (160-400); Red Blood Count 4.11 X10*6/uL (4.60-5.80)
[2020-02-09 07:07] LABS: INTERNATIONAL NORM RATIO 2.3 (0.9-1.1); Prothrombin Time 28.1 SEC (10.8-13.0)
[2020-02-09 07:11] LABS: Anion Gap 14 (12-20); Blood Urea Nitrogen 26 mg/dL (9-16); Calcium 8.3 mg/dL (8.4-10.2); Carbon Dioxide 25 mmol/L (22-29); Chloride 107 mmol/L (96-108); Estimated Glomerular Filt Rate > 60; Glucose Random 94 mg/dL (60-115); Potassium 4.5 mmol/l (3.3-5.1); Sodium 141 mmol/L (135-145)
[2020-02-09 07:29] VITALS: BP 178/77; PULSE 52; RESP 16; TEMP 36.9; O2SAT 99
--- NOTE | 2020-02-09 09:33 | MHC.CM.PN ---
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 PT REPORTS HE HAS A CANE, WALKER AND CPAP, BUT DOES NOT ALWAYS REQUIRE AND ASSISTIVE DEVICE TO AMBULATE. 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 PT HAS A HCP ON FILE AND CONFIRMS HIS PCP IS BERENICE GIPSON. IMM DELIVERED CURRENT DC PLAN IS HOME WITH RESUMPTION OF PROCESSOR INSPECTOR AND [employer] PT WILL NEED A CHAIR VAN HOME
[2020-02-09] MEDS: hydroCHLOROthiazide 25 MG TABLET PO (10:38)
[2020-02-09] MEDS: carvediloL 25 MG TABLET PO (10:38)
[2020-02-09] MEDS: Furosemide 20 MG TABLET PO (10:38)
[2020-02-09] MEDS: VerapamiL HCL SR 180 MG TABLET.ER PO (10:38)
[2020-02-09] MEDS: Tamsulosin HCL 0.4 MG CAPSULE PO (10:38)
[2020-02-09] MEDS: DULoxetine HCl 30 MG CAPSULE.DR PO (10:38)
[2020-02-09] MEDS: Docusate Sodium 100 MG CAPSULE PO (10:38)
[2020-02-09] MEDS: Atorvastatin Calcium 80 MG TABLET PO (10:39)
[2020-02-09] MEDS: Losartan Potassium 50 MG TABLET 100 MG PO (10:39)
[2020-02-09] MEDS: Fluticasone/Vilanterol 200/25 BLST.W.DEV 1 PUFF INHALE (10:43)
[2020-02-09 10:49] VITALS: BP 187/84; PULSE 52; RESP 18; TEMP 36.8; O2SAT 98
--- NOTE | 2020-02-09 11:44 | P.CDIC_ITS ---
CDI Concurrent Query Service Date: 02/09/20 Documentation Clarification: Please clarify if you are treating a proba ble/suspected/likely or confirmed: Specifics: Chronic diastolic and/or systolic Congestive heart failure Acute on chronic diastolic and/or systolic Congestive heart failure Please specify if known Provider Response: Other ( chronic diastolic CHF compensated) Other Diagnosis: chronic diastolic CHF compensated PLEASE DO NOT DELETE/MODIFY EXISTING CONTENT Additional information is needed in order to code to the highest accuracy and appropriate Severity of Illness (SOI). Please clarify the information noted below in your progress notes and discharge summary. Risk Factors/Clinical Indicators/Treatments Past medical history: Congestive heart failure H&P: Assessment/plan: CHF Continue home Lasix. CDS: Aneta Dhillon CCS, CDIS Contact Number: [phone] Please Review the information above and exercise your independent professional judgment in responding to the query. If you concur, pleas document in the PROGRESS NOTES and DISCHARGE SUMMARY. If you do not agree with the query, please document in the query above. THIS QUERY IS PART OF THE PERMANENT MEDICAL RECORD
[2020-02-09 13:09] VITALS: BMI 36.6
--- NOTE | 2020-02-09 13:18 | P.PNIM_ITS ---
Subjective Subjective Date of Service: 02/09/20 Interval History: Patient seen and examined at bedside patient reported abdominal pain improving Constitutional Constitutional: Reports as per HPI Gastrointestinal Gastrointestinal: Reports abdominal pain Physical Exam Vital Signs: Vital Signs: Last Vital Signs Temp 98.2 F 02/09/20 10:49 Pulse 52 02/09/20 10:49 Resp 18 02/09/20 10:49 BP 187/84 H 02/09/20 10:49 Pulse Ox 98 02/09/20 10:49 Body Mass Index 36.6 Const: General: cooperative, comfortable and no acute distress HENMT: Head: Yes normal to inspection Eyes: General: appearance normal, both eyes and all related structures Neck: Neck: Yes normal visual inspection Chest: Chest palpation & inspection: normal inspection of the chest Resp: Effort & Inspection: normal respiratory effort Auscultation: clear to auscultation bilaterally Cardio: Jugular venous distension: no JVD Rate: regular rate Rhythm: regular rhythm Heart sounds: S1 normal heart sound present and S2 normal heart sound present GI: Inspection: Yes normal to inspection Percussion: Yes normal to percussion Skin: General skin exam: no rashes or lesions noted Objective Data Current Medications Generic Name Dose Route Start Last Admin Trade Name Freq PRN Reason Stop Dose Admin Albuterol Sulfate 2 puff 02/08/20 20:16 Albuterol Sulfate 90 Mcg 8 Gm Inhaler INHALE Q4H PRN Shortness Of Breath Atorvastatin Calcium 80 mg 02/09/20 09:00 02/09/20 10:39 Atorvastatin Calcium 80 Mg Tablet PO 80 mg DAILY DEEPAK Administration Carvedilol 25 mg 02/08/20 21:00 02/09/20 10:38 Carvedilol 25 Mg Tablet PO 25 mg BID DEEPAK Administration Protocol Docusate Sodium 100 mg 02/09/20 09:00 02/09/20 10:38 Docusate Sodium 100 Mg Capsule PO 100 mg DAILY DEEPAK Administration Duloxetine HCl 30 mg 02/09/20 09:00 02/09/20 10:38 Duloxetine Hcl 30 Mg Capsule.Dr PO 30 mg DAILY DEEPAK Administration Fluticasone/Vilanterol 1 puff 02/09/20 09:00 02/09/20 10:43 Fluticasone/Vilanterol 200/25 Blst.W.Dev INHALE 1 puff DAILY DEEPAK Administration Furosemide 20 mg 02/09/20 09:00 02/09/20 10:38 Furosemide 20 Mg Tablet PO 20 mg DAILY [facility] Administration Protocol Heparin Sodium (Porcine) 5,000 unit 02/08/20 21:45 02/09/20 05:44 Heparin Sodium,Porcine 5,000 Unit/Ml Vial SUBCUT Not Given Q8H [facility] Hydrochlorothiazide 25 mg 02/09/20 09:00 02/09/20 10:38 Hydrochlorothiazide 25 Mg Tablet PO 25 mg DAILY [facility] Administration Ceftriaxone Sodium 1 gm/ 50 mls @ 100 mls/hr 02/09/20 18:00 Sodium Chloride IV Q24H DEEPAK Metronidazole 500 mg in 100 mls @ 100 mls/hr 02/09/20 03:00 02/09/20 12:13 Flagyl IV Infused Q8H [facility] Infusion Sodium Chloride 1,000 mls @ 75 mls/hr 02/09/20 12:45 Ns IVCONT .[id number] [facility] Losartan Potassium 100 mg 02/09/20 09:00 02/09/20 10:39 Losartan Potassium 50 Mg Tablet PO 100 mg DAILY [facility] Administration Protocol Omeprazole 20 mg 02/09/20 06:30 02/09/20 05:44 Omeprazole 20 Mg Capsule. PO 20 mg DAILY@0630 [facility] Administration Pharmacy Consult 1 each 02/08/20 19:25 Consult Rx Perform Med Rec MISCELLANE ONCE PRN Consult order Senna 8.6 mg 02/08/20 20:16 Sennosides 8.6 Mg Tablet PO DAILY PRN Constipation Sodium Chloride 3 ml 02/09/20 00:00 02/09/20 10:39 0.9 % Sodium Chloride Flush 3 Ml Syringe IVFLUSH 3 ml QSHIFT [facility] Administration Tamsulosin HCl 0.4 mg 02/09/20 09:00 02/09/20 10:38 Tamsulosin Hcl 0.4 Mg Capsule PO 0.4 mg DAILY [facility] Administration Verapamil HCl 180 mg 02/09/20 09:00 02/09/20 10:38 Verapamil Hcl Sr 180 Mg Tablet.Er PO 180 mg DAILY [facility] Administration Protocol Warfarin Sodium 2.5 mg 02/09/20 18:00 Warfarin Sodium 2.5 Mg Tablet PO SUTUWETHSA@1800 [facility] Warfarin Sodium 5 mg 02/10/20 18:00 Warfarin Sodium 5 Mg Tablet PO MOWEFR@1800 [facility] Labs CBC & Chem 7: 02/09/20 06:12 02/09/20 06:12 Assessment and Plan (1) Diverticulitis: Status: Acute (2) COPD (chronic obstructive pulmonary disease): Status: Acute (3) Hypercholesterolemia: Status: Acute (4) Hypertension: Status: Acute (5) Constipation: Status: Acute (6) Peripheral neuropathy: Status: Acute (7) CHF (congestive heart failure): Status: Acute (8) GERD (gastroesophageal reflux disease): Status: Acute (9) BPH (benign prostatic hyperplasia): Problem details: Laser Dr. Alegria 11/2017 Status: Acute (10) Paroxysmal atrial fibrillation: Status: Acute Assessment and Plan: Diverticulitis patient recently treated for diverticulitis NPO / advance diet as tolerated Continue with IV antbx as ordered Follow up Bcx Pain control Infectious disease consult in the am GI consult in the am continue with inhalers home dose continue with statin home dose continue with carvedilol home dose continue with chlorthalidone home dose continue with losartan home dose continue with verapamil home dose continue with docusate home dose continue with senna home dose continue with duloxetine home dose continue with lasix home dose continue with flomax home dose continue with coumadin home dose monitor INR daily
--- NOTE | 2020-02-09 13:33 | PM.DS ---
DS: Providers Provider Date of admission: 02/08/20 21:40 Primary care physician: Unknown Physician Consults: 02/08/20 21:40 Consult to Gastroenterology Routine Consulting Provider: [facility] Reason for consultation: diverticulitis Has provider been notified: No Consult to Infectious Diseases Routine Consulting Provider: Marilyn Quintero Reason for consultation: diverticulitis Has provider been notified: No DS: Diagnosis Discharge Diagnosis (1) Diverticulitis: Status: Acute (2) COPD (chronic obstructive pulmonary disease): Status: Acute (3) Hypercholesterolemia: Status: Acute (4) Hypertension: Status: Acute (5) Constipation: Status: Acute (6) Peripheral neuropathy: Status: Acute (7) CHF (congestive heart failure): Status: Acute (8) GERD (gastroesophageal reflux disease): Status: Acute (9) BPH (benign prostatic hyperplasia): Status: Acute Problem details: Dora Alegria 11/2017 (10) Paroxysmal atrial fibrillation: Status: Acute DS: Medications Discharge Medications Home Medications: Home Medications Medication Instructions Recorded Confirmed albuterol sulfate 90 mcg/actuation 2 puff INHALATION Q4-6H PRN 12/15/19 02/08/20 aerosol inhaler atorvastatin 80 mg tablet 80 mg PO DAILY 12/15/19 02/08/20 carvedilol 25 mg tablet 25 mg PO BID 12/15/19 02/08/20 chlorthalidone 25 mg tablet 25 mg PO DAILY 12/15/19 02/08/20 losartan 100 mg tablet 100 mg PO DAILY 12/15/19 02/08/20 sennosides 8.6 mg tablet 8.6 mg PO DAILY PRN 12/15/19 02/08/20 terazosin 5 mg capsule 5 mg PO DAILY 12/15/19 02/08/20 verapamil 180 mg 24 hr 180 mg PO DAILY 12/15/19 02/08/20 capsule,extended release Cerovite Senior tab PO 02/08/20 simethicone [Mi-Acid Gas mg PO 02/08/20 Relief(simethicon)] tamsulosin 1 cap PO DAILY 02/08/20 02/08/20 warfarin 2.5 mg PO SUTUWETHSA@1800 02/08/20 02/08/20 warfarin 5 mg PO MOWEFR@1800 02/08/20 02/08/20 Previous Rx's Medication Instructions Recorded duloxetine 30 mg capsule,delayed 30 mg PO DAILY #28 cap 01/10/20 release furosemide 20 mg tablet 20 mg PO DAILY #28 tab 01/10/20 docusate sodium 100 mg capsule 100 mg PO DAILY #30 cap 01/16/20 fluticasone furoate 200 1 ea PO DAILY #56 cap 01/24/20 mcg-vilanterol 25 mcg/dose inhalation powder pantoprazole 40 mg tablet,delayed 40 mg PO DAILY #30 tab 01/24/20 release cefuroxime axetil 500 mg PO BID 10 Days #20 tab 02/09/20 metronidazole [Flagyl] 500 mg PO TID #21 tab 02/09/20 DS: Summary Hospital Course Hospital Course: HPI 84 y/o male who PMHX of PMH of TIA, COPD, GHULAM, HTN, AFib who presented from home c/o abdominal pain x 4 days. Per history provided by the patient, for the past 4 days has been having worsening abdominal pain, diffuse, 10/10 in intensity, diffuse, sharp like, not associated with any chest pain, SOB, nausea or vomiting. Patient was treated one month ago for diverticulitis. On presentation to the ED vitals were stable, no evidence of fever, WBC of 14, CT abdomen showing resolving diverticulitis but inflammatory changes that persist. Patient was given Rocephin, Flagyl and Pain control meds in the ED. Decision for admission given. Patient seen and examined at the bedside, laying down in bed in no acute distress. Abdominal pain resolved at present. ROS as above otherwise negative. Physical exam unremarkable. hospital course 84-year-old male recently treated for diverticulitis presented with worsening abdominal pain , CT abdomen on admission shows diverticulitis improving, patient was started on Rocephin and Flagyl, patient's abdominal pain resolved, patient was tolerating a diet, patient was seen by GI recommended continue antibiotic follow-up as outpatient in 4-6 weeks for colonoscopy, patient wants to go home, patient was stable discharged home on p.o. Ceftin and Flagyl, patient will follow up Gastroenterology Dr. taylor as outpatient for colonoscopy in 4-6 weeks PMHx: TIA, COPD, GHULAM, HTN, HOCM and AFib Time Spent with Patient Time attestation: Total time spent providing and/or coordinating discharge services: Physical Exam Vital Signs: Vital Signs: Last Vital Signs Temp 98.2 F 12/17/20 10:49 Pulse 52 02/09/20 10:49 Resp 18 02/09/20 10:49 BP 187/84 H 02/09/20 10:49 Pulse Ox 98 02/09/20 10:49 Body Mass Index 36.6 Const: General: cooperative, comfortable and no acute distress Orientation/consciousness: patient oriented x3 HENMT: Head: Yes normal to inspection and Yes atraumatic Eyes: General: appearance normal, both eyes and all related structures Pupils: Equal, round and reactive pupils present Neck: Neck: Yes normal visual inspection, Yes trachea midline and Yes supple Chest: Chest palpation & inspection: normal inspection of the chest Resp: Effort & Inspection: normal respiratory effort and able to speak in complete sentences Auscultation: clear to auscultation bilaterally Cardio: Jugular venous distension: no JVD Rate: regular rate Rhythm: regular rhythm and abnormal rhythm irregularly irregular Heart sounds: S1 normal heart sound present and S2 normal heart sound present GI: Inspection: Yes normal to inspection and No distended Palpation (GI): Soft to palpation and Tenderness to palpation present (GI) (diffuse tendernes but more focal to LLQ ) Percussion: Yes normal to percussion : General: Yes no CVA tenderness Back/Spine/Pelvis: Back: no CVA tenderness Skin: General skin exam: no rashes or lesions noted Rashes: no rashes Neuro: General: patient oriented x3 and moves all extremities Cranial nerves: Yes Equal, round and reactive pupils present Extrem: General: No edema DS: Data Data Completed and Pending Labs on day of discharge: 02/08/20 14:49 ECG 12 lead EKG Stat Famotidine/PF [Pepcid/PF] 20 mg IVPUSH ONCE ONE Lidocaine HCl Viscous 2 % [Xylocaine Viscous 2 % Oral Kimi] 15 ml MUCOUS MEM ONCE ONE Magnesium Hydrox/Alum Hydrox [Maalox] 30 ml PO ONCE ONE 02/08/20 14:50 EKG Documentation DIRECTED 02/08/20 14:51 CT abdomen pelvis w con Stat 02/08/20 15:48 Basic Metabolic Panel Stat Complete Blood Count Auto Diff Stat Lactic Acid Stat Lipase Stat Liver Panel Stat Prothrombin Time INR Stat Troponin-I High Sensitivity Stat UA CC w/rflx Micro + Cult Stat 02/08/20 16:49 iohexoL 350 MG/ML [Omnipaque 350 MG/ML] 100 ml IV ONCE ONE 02/08/20 18:12 cefTRIAXone sodium [Rocephin] 1 gm 0.9 % Sodium Chloride [Ns] 50 ml IV ONCE metroNIDAZOLE/NS [Flagyl] 500 mg in 100 ml IV ONCE 02/08/20 18:31 cefTRIAXone sodium [Rocephin] 1 gm .ROUTE .STK-MED ONE 02/08/20 19:29 COVID-19 ID NOW ([place]) Stat 02/08/20 20:20 Transfer Order Routine 02/08/20 21:40 Intake and Output QSHIFTE Vital Signs QSHIFT 02/09/20 06:12 Basic Metabolic Panel Routine Complete Blood Count Auto Diff Routine Prothrombin Time INR Stat 02/09/20 12:45 0.9 % Sodium Chloride [Ns] 1,000 ml IVCONT 75 mls/hr Laboratory Last Values WBC 11.0 X10*3/uL (4.8-10.8) H 02/09/20 06:12 RBC 4.11 X10*6/uL (4.60-5.80) L 02/09/20 06:12 Hgb 11.5 g/dl (14.0-18.0) L 02/09/20 06:12 Hct 36.2 % (42-52) L 02/09/20 06:12 MCV 88.1 fL (80-98) 02/09/20 06:12 MCH 28.0 pg (27.0-33.0) 02/09/20 06:12 MCHC 31.8 g/dl (31.0-36.0) 02/09/20 06:12 RDW 15.0 % (11.0-16.0) 02/09/20 06:12 Plt Count 191 X10*3/uL (160-400) 02/09/20 06:12 MPV 10.4 fL (9.4-12.4) 02/09/20 06:12 Immature Gran % (Auto) 0.5 % (0.0-0.4) H 02/09/20 06:12 Neut % (Auto) 70.0 % (45-73) 02/09/20 06:12 Lymph % (Auto) 22.3 % (20-40) 02/09/20 06:12 [place] % (Auto) 6.8 % (2-11) 02/09/20 06:12 Eos % (Auto) 0.3 % (0-4) 02/09/20 06:12 Baso % (Auto) 0.1 % (0-2) 02/09/20 06:12 Lymph # (Auto) 2.5 X10*3/uL (1.2-4.9) 02/09/20 06:12 [place] # (Auto) 0.8 X10*3/uL (0.1-1.2) 02/09/20 06:12 Eos # (Auto) 0.0 X10*3/uL (0.0-0.4) 02/09/20 06:12 Baso # (Auto) 0.0 X10*3/uL (0.0-0.2) 02/09/20 06:12 Abs Immat Gran (auto) 0.06 X10*3/uL (0.00-0.03) H 02/09/20 06:12 Absolute Neuts (auto) 7.7 X10*3/uL (2.0-8.3) 02/09/20 06:12 Absolute Nucleated RBC 0.000 X10*3/uL (0.0-0.012) 02/09/20 06:12 Nucleated RBC % (auto) 0.0 /100WBC (0.0-0.2) 02/09/20 06:12 PT 28.1 SEC (10.8-13.0) H 02/09/20 06:12 INR 2.3 (0.9-1.1) H 02/09/20 06:12 Sodium 141 mmol/L (135-145) 02/09/20 06:12 Potassium 4.5 mmol/l (3.3-5.1) 02/09/20 06:12 Chloride 107 mmol/L (96-108) 02/09/20 06:12 Carbon Dioxide 25 mmol/L (22-29) 02/09/20 06:12 Anion Gap 14 (12-20) 02/09/20 06:12 BUN 26 mg/dL (9-16) H 02/09/20 06:12 Creatinine 0.91 mg/dL (0.5-1.4) 02/09/20 06:12 Estim Creat Clear Calc 60.0 02/09/20 06:12 Estimated GFR > 60 02/09/20 06:12 Random Glucose 94 mg/dL (60-115) 02/09/20 06:12 Lactic Acid 1.4 mmol/L (0.5-2.0) 02/08/20 15:48 Calcium 8.3 mg/dL (8.4-10.2) L 02/09/20 06:12 Total Bilirubin 0.3 mg/dL (0.0-1.0) 02/08/20 15:48 Direct Bilirubin 0.2 mg/dL (0.0-0.5) 02/08/20 15:48 AST 21 U/L (5-37) 02/08/20 15:48 ALT 26 U/L (0-40) 02/08/20 15:48 Alkaline Phosphatase 57 U/L (39-117) 02/08/20 15:48 Troponin I High Sens 14.1 ng/L (<3.5-35.0) 02/08/20 15:48 Total Protein 6.0 g/dL (6.5-8.0) L 02/08/20 15:48 Albumin 3.9 g/dL (3.5-5.0) 02/08/20 15:48 Lipase 24 U/L (8-78) 02/08/20 15:48 Urine Color YELLOW 02/08/20 15:48 Urine Appearance CLEAR 02/08/20 15:48 Urine pH 5.5 (5.0-8.0) 02/08/20 15:48 Ur Specific [place] 1.020 (1.005-1.025) 02/08/20 15:48 Urine Protein NEG MG/DL (NEG-TRACE) 02/08/20 15:48 Urine Glucose (UA) NEG MG/DL (NEG) 02/08/20 15:48 Urine Ketones NEG MG/DL (NEG) 02/08/20 15:48 Urine Blood NEG (NEG) 02/08/20 15:48 Urine Nitrite NEG (NEG) 02/08/20 15:48 Ur Leukocyte Esterase NEG (NEG) 02/08/20 15:48 COVID-19 (FERMIN) Negative (Negative) 02/08/20 19:29 COVID-19 Clin Com See Note 02/08/20 19:29 Discharge Plan Discharge Anticipated Discharge Date/Time: 02/09/20 13:24 Patient Disposition: Home, Self-Care Referrals: Ayah Taylor MD [Physician] - Physician,Unknown [Primary Care Provider] - Discharge Medications: New cefuroxime axetil 500 mg tablet 500 mg PO BID 10 Days Qty: 20 RF: 0 metronidazole [Flagyl] 500 mg tablet 500 mg PO TID Qty: 21 RF: 0 Continued duloxetine 30 mg capsule,delayed release(DR/EC) 30 mg PO DAILY Qty: 28 RF: 3 furosemide 20 mg tablet 20 mg PO DAILY Qty: 28 RF: 3 pantoprazole 40 mg tablet,delayed release (DR/EC) 40 mg PO DAILY Qty: 30 RF: 4 fluticasone furoate-vilanterol [Breo Ellipta] 200-25 mcg/dose blister with device 1 ea PO DAILY Qty: 56 RF: 2 warfarin 2.5 mg Tablet 2.5 mg PO SUTUWETHSA@1800 RF: 0 tamsulosin 0.4 mg capsule 1 cap PO DAILY RF: 0 warfarin 5 mg Tablet 5 mg PO MOWEFR@1800 RF: 0 simethicone [Mi-Acid Gas Relief(simethicon)] 80 mg tablet,chewable PO RF: 0 Cerovite Senior Tablet PO RF: 0 sennosides [Natural Senna Laxative] 8.6 mg tablet 8.6 mg PO DAILY PRN (Reason: Constipation) RF: 0 atorvastatin 80 mg tablet 80 mg PO DAILY RF: 0 terazosin 5 mg capsule 5 mg PO DAILY RF: 0 albuterol sulfate [ProAir HFA] 90 mcg/actuation HFA aerosol inhaler 2 puff inhalation Q4-6H PRN (Reason: Shortness Of Breath) RF: 0 losartan 100 mg tablet 100 mg PO DAILY RF: 0 carvedilol 25 mg tablet 25 mg PO BID RF: 0 verapamil [Verelan] 180 mg capsule,ext rel. pellets 24 hr 180 mg PO DAILY RF: 0 chlorthalidone 25 mg tablet 25 mg PO DAILY RF: 0 docusate sodium 100 mg capsule 100 mg PO DAILY Qty: 30 RF: 3 Discharge Orders: Discharge Order (Routine); Ordered 02/09/20 Ordered By: [place] Diet: advance to usual diet Activity on Discharge: As tolerated Discharge Date/Time: 02/09/20 16:23 Visit Report Forms: Patient Portal Discharge page Care Plan Goals: treat diverticulitis Health Concerns: diverticulitis Plan of Treatment: p.o. antibiotic and follow-up with GI
--- NOTE | 2020-02-09 13:34 | MHC.CM.PN ---
Addendum entered by Hoa Rodrigues 02/09/20 14:33: transportation via [employer] Original Note: Pt will DC home today with resumption of [employer] services. Family to transport
[2020-02-09 13:51] VITALS: BP 145/66; RESP 18
--- NOTE | 2020-02-09 21:45 | P.CNGI_ITS ---
History of Present Illness Data of Consult Service Date: 02/09/20 Requesting physician: [place] Primary Care Provider: Unknown Physician HPI Reason for consult: abdominal pain 84 y/o male w/ PMHX of PMH of TIA, COPD, GHULAM, HTN, AFib who I am seeing for assessment for 4 d of lower left abdominal pain. He had sudden onset sharp LLQ pain 10/10 severity, no radiaiton and no exacerbating factors, joaquín fevr, chills or nausea and vomiting. HE had no diarrhea or constipation. On presentation to the ED vitals were stable, no evidence of fever, WBC of 14, CT abdomen showing resolving diverticulitis but persistent inflammatory changes. Patient was given Rocephin, Flagyl and Pain control meds in the ED. Now he feels totally fine today and is keen to go home, he ate and had no problems with PO diet. He had an episode of diverticulitis 3-4 weeks ago. Review of Systems Constitutional: Constitutional: Denies headache(s) ENT: Denies headache(s) Neurologic: Denies headache(s) [facility] Past Medical History Medical History Anemia Anxiety and depression BPH (benign prostatic hyperplasia) COPD (chronic obstructive pulmonary disease) GERD (gastroesophageal reflux disease) History of CVA (cerebrovascular accident) History of rib fracture Hypercholesterolemia Hypertension Obesity (BMI 30-39.9) Obstructive sleep apnea Paroxysmal atrial fibrillation Peripheral vascular disease Protrusion of lumbar intervertebral disc Family History Family History Father No problems noted. Mother No problems noted. Surgical History Surgical History History of left knee replacement History of tonsillectomy History of total right hip replacement History of transurethral resection of prostate Social History Social History Household Members: Spouse Housing: House Do you presently have visiting nurse or other home services: Yes Alcohol intake: never Smoking Status: Former smoker Smoked in Last 30 Days: No Use of substances other than those prescribed or required for medical reasons: No Currently Displaying Signs/Symptoms of Drug Intoxication Withdrawal: No Have you been hit, kicked, punched, or otherwise hurt by someone within the past year? If so, by whom?: No Do you feel safe in your current relationship?: Yes Is there a partner from a previous relationship who is making you feel unsafe now?: No Are you made to feel afraid or neglected: No Advance Directives: No Advance Directives Information Provided: No Do you have thoughts of harming others: None Do you have a plan to hurt others: No Plan Recently lost weight without trying: No service: No Current occupational status: retired Current occupation: Right [employer]ed Meds Allergies Allergy/AdvReac Type Severity Reaction Status Date / Time dabigatran etexilate Allergy Intermediate ITCHING Verified 02/07/20 09:24 [From PRADAXA] JORGE L Inhibitors Allergy Mild UNKNOWN, Verified 02/07/20 09:24 [Jorge L Inhibitors] FOUND IN MEDICAL RECORD 04/[address] GIPSON ezetimibe [From Zetia] Allergy Mild ANAPHYLAXIS Verified 02/07/20 09:24 apixaban [From ELIQUIS] Allergy Unknown UNKNOWN, Verified 02/07/20 09:24 rash atorvastatin [From LIPITOR] Allergy Unknown UNKNOWN Verified 02/07/20 09:24 rosuvastatin [Crestor] Allergy Unknown myalgia Verified 02/07/20 09:24 Home Medications Medication Instructions Recorded Confirmed Type albuterol sulfate 90 mcg/actuation 2 puff INHALATION Q4-6H PRN 12/15/19 02/08/20 History aerosol inhaler atorvastatin 80 mg tablet 80 mg PO DAILY 12/15/19 02/08/20 History carvedilol 25 mg tablet 25 mg PO BID 12/15/19 02/08/20 History chlorthalidone 25 mg tablet 25 mg PO DAILY 12/15/19 02/08/20 History losartan 100 mg tablet 100 mg PO DAILY 12/15/19 02/08/20 History sennosides 8.6 mg tablet 8.6 mg PO DAILY PRN 12/15/19 02/08/20 History terazosin 5 mg capsule 5 mg PO DAILY 12/15/19 02/08/20 History verapamil 180 mg 24 hr 180 mg PO DAILY 12/15/19 02/08/20 History capsule,extended release Cerovite Senior tab PO 02/08/20 History simethicone [Mi-Acid Gas mg PO 02/08/20 History Relief(simethicon)] tamsulosin 1 cap PO DAILY 02/08/20 02/08/20 History warfarin 2.5 mg PO SUTUWETHSA@1800 02/08/20 02/08/20 History warfarin 5 mg PO MOWEFR@1800 02/08/20 02/08/20 History Physical Exam Vital Signs: Vital Signs: Last Vital Signs Temp 98.2 F 02/09/20 10:49 Pulse 52 02/09/20 10:49 Resp 18 02/09/20 13:51 BP 145/66 H 02/09/20 13:51 Pulse Ox 98 02/09/20 10:49 Body Mass Index 36.6 Const: General: cooperative, comfortable and no acute distress Orientation/consciousness: patient oriented x3 HENMT: Head: Yes normal to inspection and Yes atraumatic Eyes: General: appearance normal, both eyes and all related structures Pupils: Equal, round and reactive pupils present Neck: Neck: Yes normal visual inspection, Yes trachea midline and Yes supple Chest: Chest palpation & inspection: normal inspection of the chest Resp: Effort & Inspection: normal respiratory effort and able to speak in complete sentences Auscultation: clear to auscultation bilaterally Cardio: Jugular venous distension: no JVD Rate: regular rate Rhythm: reg ular rhythm and abnormal rhythm irregularly irregular Heart sounds: S1 normal heart sound present and S2 normal heart sound present GI: Inspection: Yes normal to inspection and No distended Palpation (GI): Soft to palpation Percussion: Yes normal to percussion : General: Yes no CVA tenderness Back/Spine/Pelvis: Back: no CVA tenderness Skin: General skin exam: no rashes or lesions noted Rashes: no rashes Neuro: General: patient oriented x3 and moves all extremities Cranial nerves: Yes Equal, round and reactive pupils present Extrem: General: No edema Results Labs CBC & Chem 7: 02/09/20 06:12 02/09/20 06:12 Labs: Short CBC 02/09/20 Range/Units 06:12 WBC 11.0 H (4.8-10.8) X10*3/uL Hgb 11.5 L (14.0-18.0) g/dl Hct 36.2 L (42-52) % Plt Count 191 (160-400) X10*3/uL [facility] 02/09/20 06:12 Sodium 141 Potassium 4.5 Chloride 107 Carbon Dioxide 25 BUN 26 H Creatinine 0.91 Calcium 8.3 L Assessment and Plan (1) Diverticulitis: Status: Acute 1/ Recurrent diverticulitis, he has not had a colonoscopy for at least 10 years. He feels totally fine now, recommend o/p colonoscopy for assessment to r/o underlying polyp or mass and assess severity of diverticulosis. He can be d/c'ed on antiibiotics, should maintain high fiber diet and avoid constipation. If he has recurrent bouts of diverticulitis he may need surgical assessment for left hemicolectomy
== END 2020-02-09 16:23 | disposition home or self-care (01) | DRG 392 ==
LOC: HO.ED 18:34 → HO.IMC 23:22
PROVIDERS: Physician Assistant Medical; Admitting Provider Internal Medicine; Emergency Provider Emergency Medicine; Visit Provider Internal Medicine
DX: K57.32 Diverticulitis of large intestine without perforation or abscess without bleeding (principal); I50.32 Chronic diastolic (congestive) heart failure; K21.9 Gastro-esophageal reflux disease without esophagitis; N40.0 Benign prostatic hyperplasia without lower urinary tract symptoms; Z96.652 Presence of left artificial knee joint; Z96.641 Presence of right artificial hip joint; J43.9 Emphysema, unspecified; I48.0 Paroxysmal atrial fibrillation; I11.0 Hypertensive heart disease with heart failure; Z20.828 Contact with and (suspected) exposure to other viral communicable diseases; Z86.73 Personal history of transient ischemic attack (TIA), and cerebral infarction without residual deficits; Z87.891 Personal history of nicotine dependence; Z79.01 Long term (current) use of anticoagulants; Z79.51 Long term (current) use of inhaled steroids; Z79.899 Other long term (current) drug therapy
CPT/HCPCS: 36415; 74177; 80048; 80076; 81003; 83605; 83690; 84484; 85025; 85610; 87635; 93005; 96365; 96375; 99202; 99283; 99285; J0696; Q9967

== ENCOUNTER 2020-02-14 11:19 | Emergency (ER) | payer MEDICARE, SELFPAY ==
[2020-02-14 11:25] VITALS: BP 108/55; BP 118/62; PULSE 56; PULSE 73; RESP 18; TEMP 36.8; O2SAT 98; BMI 37.9
--- NOTE | 2020-02-14 11:44 | CT_ITS ---
EXAMINATION: CT HEAD WITHOUT CONTRAST CLINICAL INFORMATION: Left-sided headache and dizziness. Patient is anticoagulated. COMPARISON: Previous exam October 2019 TECHNIQUE: Contiguous axial imaging was performed from the skull base to vertex without intravenous administration of contrast. This CT examination was performed using dose optimization techniques as appropriate, variously including the following: *Automated exposure control *Adjustment of mA and/or kV according to patient size (this includes techniques or standardized protocols for targeted exams where dose is matched to indication/reason for exam; i.e. extremities or head) *Use of iterative reconstruction technique DLP: 730 mGy-cm FINDINGS: There is no evidence of acute intracranial hemorrhage or territorial infarction. No abnormal mass effect or midline shift is seen. Nunez to white matter differentiation is well preserved. No extra-axial fluid collections are identified. The ventricles are normal in size. There is no abnormal attenuation within the brain parenchyma. The osseous structures and soft tissues are normal. The mastoid air cells and visualized portions of the paranasal sinuses are well aerated. CT/CT head/brain wo con IMPRESSION: No acute intracranial pathology.
--- NOTE | 2020-02-14 11:46 | ED.HA ---
HPI - Headache General Chief Complaint: Headache Stated Complaint: HEADACHE Time Seen by Provider: 02/14/20 11:42 Source: patient and EMS Mode of arrival: EMS Limitations: no limitations History of Present Illness HPI Narrative: 84 y/o male with history of headaches, PAF on Coumadin, anxiety/depression, HTN, HLD, COPD, recent dx diverticulitis 02/07 presenting with left sided headache that started 4 hours ago. He took 2 XR Tylenol without improvement. He states this headache is worse that his usual headaches. It starts behind his left eye, extends to the back of his head and into his lateral neck. It is not worse with noise or light. He denies vision changes, weakness. He admits to dizziness but states it is chronic for years. No vision changes. MD elicited complaint: headache Pertinent past history: migraines and hypertension Onset (ago): hour(s) (4) Location: left and retro-orbital Severity: severe Quality & Timing: aching and throbbing Exacerbating factors: none Relieving factors: nothing Context: occurred at rest Associated symptoms: eye pain Treatments prior to arrival: acetaminophen Related Data Home Medications Medication Instructions Recorded Confirmed albuterol sulfate 90 mcg/actuation 2 puff INHALATION Q4-6H PRN 12/15/19 02/08/20 aerosol inhaler atorvastatin 80 mg tablet 80 mg PO DAILY 12/15/19 02/08/20 carvedilol 25 mg tablet 25 mg PO BID 12/15/19 02/08/20 chlorthalidone 25 mg tablet 25 mg PO DAILY 12/15/19 02/08/20 losartan 100 mg tablet 100 mg PO DAILY 12/15/19 02/08/20 sennosides 8.6 mg tablet 8.6 mg PO DAILY PRN 12/15/19 02/08/20 terazosin 5 mg capsule 5 mg PO DAILY 12/15/19 02/08/20 verapamil 180 mg 24 hr 180 mg PO DAILY 12/15/19 02/08/20 capsule,extended release Cerovite Senior tab PO 02/08/20 simethicone [Mi-Acid Gas mg PO 02/08/20 Relief(simethicon)] tamsulosin 1 cap PO DAILY 02/08/20 02/08/20 warfarin 2.5 mg PO SUTUWETHSA@1800 02/08/20 02/08/20 warfarin 5 mg PO MOWEFR@1800 02/08/20 02/08/20 Previous Rx's Medication Instructions Recorded duloxetine 30 mg capsule,delayed 30 mg PO DAILY #28 cap 01/10/20 release furosemide 20 mg tablet 20 mg PO DAILY #28 tab 01/10/20 docusate sodium 100 mg capsule 100 mg PO DAILY #30 cap 01/16/20 fluticasone furoate 200 1 ea PO DAILY #56 cap 01/24/20 mcg-vilanterol 25 mcg/dose inhalation powder pantoprazole 40 mg tablet,delayed 40 mg PO DAILY #30 tab 01/24/20 release cefuroxime axetil 500 mg PO BID 10 Days #20 tab 02/09/20 metronidazole [Flagyl] 500 mg PO TID #21 tab 02/09/20 Allergies Allergy/AdvReac Type Severity Reaction Status Date / Time dabigatran etexilate Allergy Intermediate ITCHING Verified 02/07/20 09:24 [From PRADAXA] JORGE L Inhibitors Allergy Mild UNKNOWN, Verified 02/07/20 09:24 [Jorge L Inhibitors] FOUND IN MEDICAL RECORD 04/[address] GIPSON ezetimibe [From Zetia] Allergy Mild ANAPHYLAXIS Verified 02/07/20 09:24 apixaban [From ELIQUIS] Allergy Unknown UNKNOWN, Verified 02/07/20 09:24 rash atorvastatin [From LIPITOR] Allergy Unknown UNKNOWN Verified 02/07/20 09:24 rosuvastatin [Crestor] Allergy Unknown myalgia Verified 02/07/20 09:24 Review of Systems Review of Systems: Constitutional: No Fever, No Chills ENT/Mouth: No sore throat, No Rhinorrhea, No Swallowing Difficulty Eyes: +Eye Pain, No Swelling, No Redness Cardiovascular: No Chest Pain, No SOB, No Orthopnea, No Edema Respiratory: No Cough, No Sputum, No Wheezing, No dyspnea Gastrointestinal: No Nausea, No Vomiting, No Diarrhea, No abdominal Pain Genitourinary: No Dysuria, No Urinary Frequency, No Hematuria Musculoskeletal: + joint pain (neck), No Myalgias Skin: No Skin Lesions, No rash Neuro: No Weakness, No Numbness, + Dizziness, + Headache Psych: No Anxiety/Panic, No Depression Heme/Lymph: No Bruising, No Lymphadenopathy Endocrine: No Polyuria, No Polydipsia PMFSH Past Medical History Medical History Anemia Anxiety and depression BPH (benign prostatic hyperplasia) COPD (chronic obstructive pulmonary disease) GERD (gastroesophageal reflux disease) History of CVA (cerebrovascular accident) History of rib fracture Hypercholesterolemia Hypertension Obesity (BMI 30-39.9) Obstructive sleep apnea Paroxysmal atrial fibrillation Peripheral vascular disease Protrusion of lumbar intervertebral disc Surgical History History of left knee replacement History of tonsillectomy History of total right hip replacement History of transurethral resection of prostate Family History Family History Father No problems noted. Mother No problems noted. Social History Social History Household Members: Spouse Housing: House Alcohol intake: never Smoking Status: Former smoker Advance Directives: No Advance Directives Information Provided: Yes service: No Current occupational status: retired Current occupation: Right Handed Physical Exam Vital Signs: Vital Signs: Last Vital Signs Temp 98.2 F 02/14/20 11:25 Pulse 100 02/14/20 11:54 Resp 18 02/14/20 11:25 BP 94/44 L 02/14/20 11:54 Pulse Ox 98 02/14/20 11:25 Body Mass Index 37.9 Appearance: Alert. Oriented X3. No acute distress. Eyes: Pupils equal, round and reactive to light. Pterygium noted on medial right eye. No nystagmus ENT: Pharynx normal. Neck: Normal inspection. Neck supple. CVS: Normal heart rate and rhythm. Pulses normal. Respiratory: No respiratory distress. Breath sounds normal. Abdomen: Obese, soft and nontender. +BS x4 Skin: Skin warm and dry. Normal skin color. Normal skin turgor. No rashes. Extremities: No lower extremity edema. Neuro: Oriented X 3. No motor deficit. No sensory deficit. Normal speech Course Course Course Narrative: 84 y/o male presenting with acute onset of left sided headache, retroorbital, worse than usual headaches. No trauma. Neuro exam is non-focal. Given he is on anticoagulation will check CT head. Low dose oxycodone given for headache, will avoid benadryl, reglan and NSAID given age. Doubt posterior CVA given his report of chronic dizziness for several years, unchanged. Reevaluation(s) Reevaluation #1: CT head negative. Pain completely resolved after low dose oxycodone. He is stable for discharge. MDM - Headache Differential Diagnosis Differential diagnosis: Likely migraine, tension headache, subarachnoid hemorrhage and headache Discharge Plan Discharge Clinical Impression: Migraine Qualifiers: Migraine type: ophthalmoplegic Intractability: not intractable Qualified Code(s): G43.B0 - Ophthalmoplegic migraine, not intractable Patient Disposition: Home, Self-Care Instructions: Migraine Headache (ED), Ocular Migraine (ED) Additional Instructions: Follow up with your doctor as needed. Take Tylenol as needed for headaches. Do not exceed 4,000 mg in a 24 hour period. If you develop weakness, worsening dizziness, difficulty walking or speaking, recurrent headache call 911 or come back to the ER for further evaluation. Prescriptions: No Action duloxetine 30 mg capsule,delayed release(DR/EC) 30 mg PO DAILY Qty: 28 RF: 3 furosemide 20 mg tablet 20 mg PO DAILY Qty: 28 RF: 3 pantoprazole 40 mg tablet,delayed release (DR/EC) 40 mg PO DAILY Qty: 30 RF: 4 fluticasone furoate-vilanterol [Breo Ellipta] 200-25 mcg/dose blister with device 1 ea PO DAILY Qty: 56 RF: 2 warfarin 2.5 mg Tablet 2.5 mg PO SUTUWETHSA@1800 RF: 0 tamsulosin 0.4 mg capsule 1 cap PO DAILY RF: 0 warfarin 5 mg Tablet 5 mg PO MOWEFR@1800 RF: 0 simethicone [Mi-Acid Gas Relief(simethicon)] 80 mg tablet,chewable PO RF: 0 Cerovite Senior Tablet PO RF: 0 cefuroxime axetil 500 mg tablet 500 mg PO BID 10 Days Qty: 20 RF: 0 metronidazole [Flagyl] 500 mg tablet 500 mg PO TID Qty: 21 RF: 0 sennosides [Natural Senna Laxative] 8.6 mg tablet 8.6 mg PO DAILY PRN (Reason: Constipation) RF: 0 atorvastatin 80 mg tablet 80 mg PO DAILY RF: 0 terazosin 5 mg capsule 5 mg PO DAILY RF: 0 albuterol sulfate [ProAir HFA] 90 mcg/actuation HFA aerosol inhaler 2 puff inhalation Q4-6H PRN (Reason: Shortness Of Breath) RF: 0 losartan 100 mg tablet 100 mg PO DAILY RF: 0 carvedilol 25 mg tablet 25 mg PO BID RF: 0 verapamil [Verelan] 180 mg capsule,ext rel. pellets 24 hr 180 mg PO DAILY RF: 0 chlorthalidone 25 mg tablet 25 mg PO DAILY RF: 0 docusate sodium 100 mg capsule 100 mg PO DAILY Qty: 30 RF: 3
[2020-02-14 11:53] VITALS: BP 95/51; BP 97/51; PULSE 78; PULSE 92
[2020-02-14 11:54] VITALS: BP 94/44; PULSE 100
[2020-02-14] MEDS: oxyCODONE HCl Immed Release 5 MG TABLET PO (11:58)
--- NOTE | 2020-02-14 12:03 | PC.NURSE ---
Patient in CT scan
== END 2020-02-14 13:59 | disposition home or self-care (01) ==
PROVIDERS: Emergency Provider Emergency Medicine
DX: G43.B0 Ophthalmoplegic migraine, not intractable (principal); H57.13 Ocular pain, bilateral; Z87.891 Personal history of nicotine dependence; Z79.01 Long term (current) use of anticoagulants; Z79.899 Other long term (current) drug therapy; Z86.73 Personal history of transient ischemic attack (TIA), and cerebral infarction without residual deficits
CPT/HCPCS: 70450; 99284

== ENCOUNTER → 2020-02-21 14:24 | Outpatient (BNVA) | payer MEDICARE, SELFPAY | PROVIDERS: PCP Internal Medicine; Visit Provider Internal Medicine | DX: I48.0 Paroxysmal atrial fibrillation (principal); Z51.81 Encounter for therapeutic drug level monitoring; Z79.01 Long term (current) use of anticoagulants | CPT/HCPCS: 85610; 99211 ==

== ENCOUNTER → 2020-02-23 13:31 | Outpatient (BNVA) | payer MEDICARE, SELFPAY | PROVIDERS: PCP Internal Medicine; Visit Provider Nurse Practitioner Family | DX: Z13.89 Encounter for screening for other disorder (principal) | CPT/HCPCS: Q3014 ==

== ENCOUNTER 2020-02-27 14:15 | Outpatient (REF) | payer MEDICARE, SELFPAY ==
[2020-02-27 15:32] LABS: Hematocrit 34.2 % (42-52); Mean Corpuscular HGB Conc 32.2 g/dl (31.0-36.0); Mean Corpuscular Hemoglobin 28.6 pg (27.0-33.0); Mean Corpuscular Volume 88.8 fL (80-98); Mean Platelet Volume 10.1 fL (9.4-12.4); Platelet Count 201 X10*3/uL (160-400); Red Blood Count 3.85 X10*6/uL (4.60-5.80); White Blood Count 9.1 X10*3/uL (4.8-10.8)
[2020-02-27 15:51] LABS: INTERNATIONAL NORM RATIO 2.3 (0.9-1.1); Prothrombin Time 27.7 SEC (10.8-13.0)
[2020-02-27 16:14] LABS: Alanine Aminotransferase 26 U/L (0-40); Albumin Level 3.5 g/dL (3.5-5.0); Alkaline Phosphatase 41 U/L (39-117); Anion Gap 9 (12-20); Aspartate Amino Transferase 18 U/L (5-37); Bilirubin Total 0.3 mg/dL (0.0-1.0); Blood Urea Nitrogen 21 mg/dL (9-16); Calcium 8.2 mg/dL (8.4-10.2); Carbon Dioxide 28 mmol/L (22-29); Chloride 108 mmol/L (96-108); Estimated Glomerular Filt Rate > 60; Glucose Random 94 mg/dL (60-115); Sodium 141 mmol/L (135-145); Total Protein 5.4 g/dL (6.5-8.0)
== END 2020-02-27 14:16 | disposition home or self-care (01) ==
LOC: HO.LAB 14:15
PROVIDERS: PCP Internal Medicine; Visit Provider Nurse Practitioner Family
DX: Z12.11 Encounter for screening for malignant neoplasm of colon (principal); Z79.01 Long term (current) use of anticoagulants
CPT/HCPCS: 36415; 80053; 85027; 85610; 99202; Q3014

== ENCOUNTER → 2020-02-28 09:06 | Outpatient (BNVA) | payer MEDICARE, SELFPAY | PROVIDERS: PCP Internal Medicine; Visit Provider Nurse Practitioner Family | DX: Z76.89 Persons encountering health services in other specified circumstances (principal) ==

== ENCOUNTER → 2020-03-13 14:01 | Outpatient (BNVA) | payer MEDICARE, SELFPAY | PROVIDERS: PCP Internal Medicine; Visit Provider Internal Medicine | DX: I48.0 Paroxysmal atrial fibrillation (principal); Z51.81 Encounter for therapeutic drug level monitoring; Z79.01 Long term (current) use of anticoagulants | CPT/HCPCS: 85610; 99211 ==

== ENCOUNTER 2020-03-19 16:44 | Emergency (ER) | payer MEDICARE, SELFPAY ==
[2020-03-19 16:56] VITALS: BP 146/79; PULSE 80; RESP 18; TEMP 37.8; O2SAT 96; BMI 36.7
--- NOTE | 2020-03-19 17:14 | PC.NURSE ---
tolerated walking to br well. no increased work of breathing. [id number] [id number]%
--- NOTE | 2020-03-19 17:27 | ED.GENADULT ---
HPI - General Adult General Chief complaint: Upper Respiratory Symptoms Stated complaint: fever headache Time Seen by Provider: 03/19/20 16:58 Source: patient Mode of arrival: EMS Limitations: no limitations History of Present Illness HPI narrative: [age] old male notes emergency your. Patient states that last night he felt hot at around 11:00 p.m.. He states that his took his temperature and it was normal. Today at around 1:00 p.m. he again felt warm. His took his temperature was 100.4?. He states that he has headache chronically x3 years which is unchanged from his baseline. He denied sore throat. He states he has a cough which is occasionally productive. He denied chest pain or pleuritic symptoms. He denied myalgias arthralgias, diarrhea, loss of sense of taste or smell. He denied weakness or fatigue. The patient states that he has been vaccinated for influenza, he has not received his COVID-19 vaccine yet. He has no known primary COVID exposure. Related Data Home Medications Medication Instructions Recorded Confirmed albuterol sulfate 90 mcg/actuation 2 puff INHALATION Q4-6H PRN 12/15/19 03/16/20 aerosol inhaler atorvastatin 80 mg tablet 80 mg PO DAILY 12/15/19 03/16/20 carvedilol 25 mg tablet 25 mg PO BID 12/15/19 03/16/20 chlorthalidone 25 mg tablet 25 mg PO DAILY 12/15/19 03/16/20 losartan 100 mg tablet 100 mg PO DAILY 12/15/19 02/23/20 Cerovite Senior tab PO 02/08/20 03/16/20 warfarin 2.5 mg PO SUTUWETHSA@1800 02/08/20 03/16/20 warfarin 5 mg PO MOWEFR@1800 02/08/20 03/16/20 Previous Rx's Medication Instructions Recorded furosemide 20 mg tablet 20 mg PO DAILY #28 tab 01/10/20 fluticasone furoate 200 1 ea PO DAILY #56 cap 01/24/20 mcg-vilanterol 25 mcg/dose inhalation powder pantoprazole 40 mg tablet,delayed 40 mg PO DAILY #30 tab 01/24/20 release bisacodyl 5 mg tablet,delayed 10 mg PO ONCE 1 Days #2 tab 02/16/20 release sucralfate 1 gram tablet 1 g PO DAILY #30 tab 02/27/20 Allergies Allergy/AdvReac Type Severity Reaction Status Date / Time dabigatran etexilate Allergy Intermediate ITCHING Verified 03/13/20 14:22 [From PRADAXA] JORGE L Inhibitors Allergy Mild UNKNOWN, Verified 03/13/20 14:22 [Jorge L Inhibitors] FOUND IN MEDICAL RECORD 04/[address] GIPSON ezetimibe [From Zetia] Allergy Mild ANAPHYLAXIS Verified 03/13/20 14:22 apixaban [From ELIQUIS] Allergy Unknown UNKNOWN, Verified 03/13/20 14:22 rash atorvastatin [From LIPITOR] Allergy Unknown UNKNOWN Verified 03/13/20 14:22 rosuvastatin [Crestor] Allergy Unknown myalgia Verified 03/13/20 14:22 Review of Systems Review of Systems: Yes all other systems are reviewed and are negative Neurologic: Reports Abnormal speech present PMFSH Past Medical History Source: unable to obtain Medical History (Updated 03/19/20 @ 17:41 by Darryl Donato MD) Anemia Anxiety and depression BPH (benign prostatic hyperplasia) Chronic abdominal pain COPD (chronic obstructive pulmonary disease) GERD (gastroesophageal reflux disease) History of CVA (cerebrovascular accident) History of rib fracture Hypercholesterolemia Hypertension Obesity (BMI 30-39.9) Obstructive sleep apnea Paroxysmal atrial fibrillation Peripheral vascular disease Protrusion of lumbar intervertebral disc Surgical History History of left knee replacement History of tonsillectomy History of total right hip replacement History of transurethral resection of prostate Family History Family History Father No problems noted. Mother Hx of type 1 diabetes mellitus Social History Social History Household Members: Spouse Housing: House Alcohol intake: never Smoking Status: Former smoker Tobacco Type: Cigarette Years Smoked: 30 yrs ago Advance Directives: No Advance Directives Information Provided: No service: No Current occupational status: retired Current occupation: Right Handed Physical Exam Vital Signs: Vital Signs: Last Vital Signs Temp 100.1 F 03/19/20 16:56 Pulse 80 03/19/20 16:56 Resp 18 03/19/20 16:56 BP 146/79 H 03/19/20 16:56 Pulse Ox 96 01/25/21 16:56 Body Mass Index 36.7 Const: General: cooperative and healthy appearing Orientation/consciousness: oriented to person and oriented to place Limitations: no limitations HENMT: Head: Yes normal to inspection, Yes normocephalic and Yes atraumatic Ears: external ears normal General nose exam: Normal external nose present Face and sinus: Yes normal facial exam Mouth: Normal oral and palatal mucosa present Throat: Yes posterior oropharynx normal Eyes: Periorbital: periorbital findings normal Eyelids: Yes eyelids normal Conjunctivae: conjunctivae normal Sclerae: sclerae normal Corneas: corneas normal Pupils: Equal, round and reactive pupils present Direct Ophthalmoscopy: normal light reflex Neck: Neck: Yes full ROM, Yes no lymphadenopathy, Yes no meningeal signs, Yes trachea midline and Yes supple Chest: Chest palpation & inspection: normal inspection of the chest and normal palpation of entire chest wall Resp: Effort & Inspection: normal respiratory effort and able to speak in complete sentences Auscultation: clear to auscultation bilaterally Cardio: Rate: regular rate Rhythm: regular rhythm Heart sounds: S1 normal heart sound present, S2 normal heart sound present and no murmurs GI: Inspection: Yes normal to inspection Palpation (GI): Soft to palpation, nontender, no guarding, not rigid and No hepatosplenomegaly present : General: Yes no CVA tenderness Back/Spine/Pelvis: Back: no CVA tenderness Cervical Spine: normal cervical lordosis Thoracic/Lumbar Spine: thoracic and lumbar spine normal to inspection Skin: Lesions: no lesions Rashes: no rashes Wounds: no wounds Neuro: General: oriented to person, oriented to place and no meningeal signs Cranial nerves: Yes CN's II-XII intact bilaterally, Yes Equal, round and reactive pupils present and Yes Nystagmus not present Cognition (Neuro): normal cognition Speech: Abnormal speech present Motor exam (neuro): 5/5 motor strength present throughout Extrem: General: Yes normal to inspection and Yes full ROM Psych: Appearance: well kempt Mental Status: mental status grossly normal Speech and movement: Normal speech and movement present Affect: normal affect Attitude: cooperative Thought process: Normal thought process present Thought content: Normal thought content present Course Course Course Narrative: 84-year-old male who presents emergency department for evaluation of fever which developed yesterday, he has a occasional cough with no other significant symptoms. Patient's physical examination here was unremarkable with normal O2 saturation at rest and with exertion. The patient most likely has a viral syndrome. He will be tested for COVID-19, influenza and RSV. I will discharge the patient home with printed instructions and I did advise him that we will contact him with these results but he should isolate until he gets his results. Discharge Plan Discharge Clinical Impression: Viral syndrome Patient Disposition: Home, Self-Care Additional Instructions: Based on your symptoms and history, you were tested forCOVID-19, influenza and RSV virus. Your results are PENDING at this time. Your result should be back today, I will call you with results. You will be contacted with either a NEGATIVE OR POSITIVE results. Please wait until we contact you for your results. Based on your evaluation today, it is okay to send you home. Please plan for self quarantine for up to 14 days. Do not expose yourself to others. You may not go to work. If testing does come back negative you may return to activities as long as you are no longer having any symptoms for at least 3 days. Please continue to wear a mask, follow cold instructions and wash your hands frequently. You may take Tylenol 325 mg pills, 2 pills every 4 hours as needed for pain or fever. You may also take ibuprofen(Motrin/Advil) 200 mg pills, 2 pills every 6 hours as needed for pain or fever. Patient seen in the emergency department should be excused from work until negative test results AND until 72 hours without any symptoms have gone away completely OR at least 10 days have passed since symptoms first appeared or since last exposure to COVID-19 positive patient CDC Guidelines for home isolation: - Stay away from others - WEAR A MASK if you are sick AND STAY HOME - Cover your mouth and nose with a tissue when you cough or sneeze. Dispose of tissues in a lined trash can and wash your hands immediately with soap and water for at least 20 seconds. If soap and water are not available, clean hands with alcohol-based hand oral health therapist that contains at least 60% alcohol. - Clean your hands often with soap and water for at least 20 seconds - Avoid touching your eyes, nose and mouth with unwashed hands - Do not share dishes, drinking glasses, cups, eating utensils, towels, or bedding with other people in your home. After using these items, wash them thoroughly with soap and water or put in the grants director. - Clean high-touch surfaces in your isolation area ( sick room and bathroom) every day; let a caregiver clean and disinfect high-touch surfaces in other areas of the home. Clean the area or item with soap and water or another detergent if it is dirty. Then, use a household disinfectant. - Limit contact with pets and animals: If you must care for a pet, wash your hands before and after interacting with them). Prescriptions: No Action furosemide 20 mg tablet 20 mg PO DAILY Qty: 28 RF: 3 pantoprazole 40 mg tablet,delayed release (DR/EC) 40 mg PO DAILY Qty: 30 RF: 4 fluticasone furoate-vilanterol [Breo Ellipta] 200-25 mcg/dose blister with device 1 ea PO DAILY Qty: 56 RF: 2 bisacodyl [Dulcolax (bisacodyl)] 5 mg tablet,delayed release (DR/EC) 10 mg PO ONCE 1 Days Qty: 2 RF: 0 warfarin 2.5 mg Tablet 2.5 mg PO SUTUWETHSA@1800 RF: 0 warfarin 5 mg Tablet 5 mg PO MOWEFR@1800 RF: 0 Cerovite Senior Tablet PO RF: 0 atorvastatin 80 mg tablet 80 mg PO DAILY RF: 0 albuterol sulfate [ProAir HFA] 90 mcg/actuation HFA aerosol inhaler 2 puff inhalation Q4-6H PRN (Reason: Shortness Of Breath) RF: 0 losartan 100 mg tablet 100 mg PO DAILY RF: 0 carvedilol 25 mg tablet 25 mg PO BID RF: 0 chlorthalidone 25 mg tablet 25 mg PO DAILY RF: 0 sucralfate 1 gram tablet 1 g PO DAILY Qty: 30 RF: 2
[2020-03-19 18:23] VITALS: BP 127/62; PULSE 74; RESP 14; TEMP 36.6; O2SAT 97
[2020-03-19 19:13] LABS: Influenza A PCR NEGATIVE (Negative); Influenza B PCR NEGATIVE (Negative); Resp Syncy Virus RNA Qual PCR NEGATIVE (Negative); SARS COV2 PCR INHOUSE POSITIVE (Negative)
== END 2020-03-19 20:37 | disposition home or self-care (01) ==
PROVIDERS: Emergency Provider Emergency Medicine Emergency Medical Services
DX: U07.1 COVID-19 (principal); I10 Essential (primary) hypertension; I48.91 Unspecified atrial fibrillation; J44.9 Chronic obstructive pulmonary disease, unspecified; F17.210 Nicotine dependence, cigarettes, uncomplicated
CPT/HCPCS: 0241U; 36415; 99283

== ENCOUNTER 2020-04-01 05:00 | Inpatient (IN) | payer MEDICARE, SELFPAY ==
[2020-04-01] VITALS (18 sets, daily range): BP systolic 80–164; BP diastolic 39–83; PULSE 83–102; RESP 16–45; TEMP 36.9–40.2; O2SAT 84–99; BMI 35.9
--- NOTE | ~2020-04-01 | XR_ITS ---
EXAMINATION: CHEST 1 VIEW CLINICAL INFORMATION: Shortness of breath. COMPARISON: 01/14/2020. TECHNIQUE: An AP view of the chest is provided. FINDINGS: The cardiac silhouette is stable. The mediastinal and hilar contours are unremarkable. There are neither pleural effusions nor pneumothoraces. There are no consolidations. There is nonspecific interstitial prominence noted throughout both lungs. The osseous structures are stable. XR/XR chest 1V IMPRESSION: Nonspecific interstitial prominence present throughout both lungs.
--- NOTE | ~2020-04-01 | XR_ITS ---
EXAMINATION: XR CHEST CLINICAL INFORMATION: Central line COMPARISON: 04/01/2020 and priors TECHNIQUE: AP upright portable view of the chest was obtained. FINDINGS: There is a right central venous catheter with tip projecting over the lower SVC. No pneumothorax. Lung volumes have slightly diminished in the interval. Nevertheless, multifocal bilateral pneumonia appears to have significantly worsened. Some increasing prominence of the heart and mediastinum may reflect volume status. Nonobstructive gas pattern. Chronic deformity of the right proximal humerus. XR/XR chest 1V IMPRESSION: 1. Right central venous catheter tip projects over lower SVC. 2. Rapidly worsening multifocal bilateral airspace disease.
--- NOTE | ~2020-04-01 | XR_ITS ---
EXAMINATION: XR CHEST CLINICAL INFORMATION: Covid COMPARISON: April 05, 2020 and April 01, 2020 TECHNIQUE: AP portable view of the chest was obtained. FINDINGS: There is a similar appearance to previous study with bilateral regions of patchy disease more prominent peripherally. No pneumothorax or significant pleural effusion appreciated. Heart normal size. No evidence of pulmonary edema. Nasogastric tube seen traversing to the stomach. Endotracheal tube tip 2 cm above the solitario. A right internal jugular central venous catheter seen with tip at the caval atrial junction. There is severe degenerative change of the right shoulder. XR/XR chest 1V IMPRESSION: Stable appearance of patchy disease bilaterally which support devices as described above.
--- NOTE | ~2020-04-01 | CT_ITS ---
EXAMINATION: CT HEAD WITHOUT CONTRAST CLINICAL INFORMATION: INR 8 COMPARISON: 02/14/2020 TECHNIQUE: Contiguous axial imaging was performed from the skull base to vertex without intravenous administration of contrast. This CT examination was performed using dose optimization techniques as appropriate, variously including the following: *Automated exposure control *Adjustment of mA and/or kV according to patient size (this includes techniques or standardized protocols for targeted exams where dose is matched to indication/reason for exam; i.e. extremities or head) *Use of iterative reconstruction technique DLP: 792 mGy-cm FINDINGS: There is no evidence of acute intracranial hemorrhage or territorial infarction. No abnormal mass effect or midline shift is seen. Nunez to white matter differentiation is well preserved. No extra-axial fluid collections are identified. The ventricles are normal in size. Similar appearance of patchy periventricular and subcortical white matter hypodensity consistent with chronic microvascular white matter ischemic changes. The osseous structures and soft tissues are normal. The mastoid air cells and visualized portions of the paranasal sinuses are well aerated. CT/CT head/brain wo con IMPRESSION: No acute intracranial pathology.
--- NOTE | ~2020-04-01 | CT_ITS ---
EXAMINATION: CT CHEST WITHOUT CONTRAST CLINICAL INFORMATION: Acute respiratory failure. COVID pneumonia. COMPARISON: Plain chest radiographs from 04/01/2020 the most recent demonstrate rapidly progressive multifocal airspace disease consistent with known COVID pneumonia. TECHNIQUE: Multidetector volumetric CT imaging of the chest was done. Axial MIP volume rendering provided. Sagittal and coronal reformatted images were obtained. Patient was unable to breath-hold resulting in motion artifact. Arms at sides resulting in artifact. This CT examination was performed using dose optimization techniques as appropriate, variously including the following: *Automated exposure control *Adjustment of mA and/or kV according to patient size (this includes techniques or standardized protocols for targeted exams where dose is matched to indication/reason for exam; i.e. extremities or head) *Use of iterative reconstruction technique DLP: 599 mGy-cm FINDINGS: TURNER MACHINE: Multifocal airspace disease is again noted increased compared with this morning's chest radiograph. LUNGS: As on plain radiography, there is multifocal confluent peripheral consolidation and patchy groundglass opacities consistent with atypical viral pneumonia. Lung volumes and decreased compared with priors. No complicating pneumothorax. No evidence for cavitation. The central airways are grossly patent. MEDIASTINUM: No bulky adenopathy. Three-vessel coronary disease. Aortic valve disease with top normal caliber 4 cm ascending thoracic aorta. Regurgitant/stenotic valve is suspected. No thyroid lesion. No esophageal lesion. Mediastinal lipomatosis. PLEURA: No pleural or pericardial effusion. Minor pleural thickening at the lung bases underlying lung consolidation. AXILLA: Marked bilateral gynecomastia. No axillary adenopathy. UPPER ABDOMEN: Atherosclerotic peripheral vascular disease. The gallbladder is distended without wall thickening stones or pericholecystic fluid. This may represent physiologic distention. No biliary ductal dilation. Nonspecific perinephric fat stranding, typically age-related. OSSEOUS STRUCTURES: Old healed left rib fractures. Severe deformity with heterotopic calcifications of the proximal right humerus consistent with remote trauma. CT/CT chest wo con IMPRESSION: 1. Rapidly progressive multifocal pneumonia. 2. Aortic valve disease. Coronary artery disease. Atherosclerotic peripheral vascular disease.
--- NOTE | ~2020-04-01 | XR_ITS ---
EXAMINATION: XR CHEST CLINICAL INFORMATION: COVID positive. COMPARISON: 04/01/2020 chest radiograph. TECHNIQUE: Frontal view of the chest was obtained. FINDINGS: Support devices: Interval placement of endotracheal tube with tip approximately 1.5 cm proximal to solitario. Right internal jugular catheter with tip terminating in superior vena cava. Nasogastric tube with tip not included on the study, but tip and side-port below the left hemidiaphragm. Persistent diffuse infiltrates are seen bilaterally with interval improvement. The heart and mediastinal structures are unremarkable. XR/XR chest 1V IMPRESSION: 1. Persistent bilateral diffuse infiltrates with mild interval improvement. 2. Support devices as detailed above.
--- NOTE | 2020-04-01 05:21 | ECG_ITS ---
Test Reason : DIFF BREATHING Blood Pressure : / mmHG Vent. Rate : 091 BPM Atrial Rate : 091 BPM P-R Int : 200 ms QRS Dur : 126 ms QT Int : 432 ms P-R-T Axes : 093 -25 008 degrees QTc Int : 531 ms Sinus rhythm with marked sinus arrhythmia Right bundle branch block Abnormal ECG When compared with ECG of 08-FEB-2020 18:38, No significant changes seen Referred By: Mariusz Javed Electronically Signed By:CAM MALDONADO
--- NOTE | 2020-04-01 05:23 | ED.GENADULT ---
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 And cough. No fever or chills. Patient declined any chest pain, Related Data Home Medications Medication Instructions Recorded Confirmed albuterol sulfate 90 mcg/actuation 2 puff INHALATION Q4-6H PRN 12/15/19 03/16/20 aerosol inhaler atorvastatin 80 mg tablet 80 mg PO DAILY 12/15/19 04/01/20 carvedilol 25 mg tablet 25 mg PO BID 12/15/19 04/01/20 warfarin 2.5 mg PO SUTUWETHSA@1800 02/08/20 03/16/20 warfarin 5 mg PO MOWEFR@1800 02/08/20 03/16/20 Previous Rx's Medication Instructions Recorded furosemide 20 mg tablet 20 mg PO DAILY #28 tab 01/10/20 fluticasone furoate 200 1 ea PO DAILY #56 cap 01/24/20 mcg-vilanterol 25 mcg/dose inhalation powder pantoprazole 40 mg tablet,delayed 40 mg PO DAILY #30 tab 01/24/20 release bisacodyl 5 mg tablet,delayed 10 mg PO ONCE 1 Days #2 tab 02/16/20 release sucralfate 1 gram tablet 1 g PO DAILY #30 tab 02/27/20 chlorthalidone 25 mg tablet 25 mg PO QAM #28 tab 03/30/20 docusate sodium 100 mg capsule 100 mg PO DAILY #30 cap 03/30/20 losartan 100 mg tablet 100 mg PO DAILY #28 tab 03/30/20 ypxptpqeznot-ggiqhudd-qnqegu tablet 1 tab PO DAILY #28 tab 03/30/20 tamsulosin 0.4 mg capsule 0.4 mg PO DAILY #28 cap 03/30/20 verapamil 180 mg 24 hr 180 mg PO DAILY #28 cap 03/30/20 capsule,extended release Allergies Allergy/AdvReac Type Severity Reaction Status Date / Time dabigatran etexilate Allergy Intermediate ITCHING Verified 03/13/20 14:22 [From PRADAXA] JORGE L Inhibitors Allergy Mild UNKNOWN, Verified 03/13/20 14:22 [Jorge L Inhibitors] FOUND IN MEDICAL RECORD 04/[address] GIPSON ezetimibe [From Zetia] Allergy Mild ANAPHYLAXIS Verified 03/13/20 14:22 apixaban [From ELIQUIS] Allergy Unknown UNKNOWN, Verified 03/13/20 14:22 rash atorvastatin [From LIPITOR] Allergy Unknown UNKNOWN Verified 03/13/20 14:22 rosuvastatin [Crestor] Allergy Unknown myalgia Verified 03/13/20 14:22 Review of Systems Review of Systems: All other systems are reviewed and are negative Constitutional: Reports as per HPI and Reports no additional constitutional complaints Eyes: Reports as per HPI and Reports no additional eye complaints Reports system reviewed and no additional complaints, except as documented Cardiovascular: Reports as per HPI and Reports no additional cardiovascular complaints Respiratory: Reports as per HPI and Reports no additional respiratory complaints Gastrointestinal: Reports as per HPI and Reports no additional gastrointestinal complaints Genitourinary: Reports no additional female genitourinary complaints Musculoskeletal: Reports no additional musculoskeletal complaints Skin/Breast: Reports system reviewed and no additional complaints, except as docu Psychiatric: Reports no additional psychiatric complaints Endocrine: Reports no additional endocrine complaints Hematologic/Lymphatic: Reports no additional hematologic/lymphatic complaints Allergic/Immunologic: Reports no additional allergic/immunologic complaints Reports system reviewed and no additional complaints, except as documented and Reports Abnormal speech present COUNTS INCLUDE 234 BEDS AT THE [facility] Past Medical History Medical History Anemia Anxiety and depression BPH (benign prostatic hyperplasia) Chronic abdominal pain COPD (chronic obstructive pulmonary disease) GERD (gastroesophageal reflux disease) History of CVA (cerebrovascular accident) History of rib fracture Hypercholesterolemia Hypertension Obesity (BMI 30-39.9) Obstructive sleep apnea Paroxysmal atrial fibrillation Peripheral vascular disease Protrusion of lumbar intervertebral disc Surgical History History of left knee replacement History of tonsillectomy History of total right hip replacement History of transurethral resection of prostate Family History Family History Father No problems noted. Mother Hx of type 1 diabetes mellitus Social History Social History Household Members: Spouse Housing: House Alcohol intake: never Smoking Status: Never smoker Tobacco Type: Cigarette Years Smoked: 30 yrs ago Advance Directives: No Advance Directives Information Provided: No service: No Current occupational status: retired Current occupation: Right Handed Physical Exam Vital Signs: Vital Signs: Last Vital Signs Temp 98.5 F 04/01/20 05:24 Pulse 94 04/01/20 05:24 Resp 30 H 04/01/20 05:24 BP 125/65 04/01/20 05:24 Pulse Ox 98 04/01/20 05:33 Body Mass Index 35.9 Vital signs have been reviewed as normal and appeared to be correct. Blood pressure normal. Heart rate normal. Respiration rate normal. Temperature normal. Oxygen saturation: Hypoxic 93% on room air.. Appearance: Alert. Oriented X3. No acute distress. Head: Normal external exam. Normocephalic. Atraumatic. No Norris signs noted. No raccoon eyes noted Eyes: PERRLA. EOMI. Conjunctiva and sclera normal. Eyelids normal. ENT: EAC normal. TM's Normal. Pharynx normal. Uvula midline. Moist mucous membranes. No trismus noted. No drooling noted. No muffled voice noted. Neck: Normal inspection. Neck supple. FROM. No adenopathy. Thyroid Normal. No meningeal signs. No neck mass noted. CVS: Normal heart rate and rhythm. Heart sound normal. No murmurs noted. Pulses normal throughout. Respiratory: Mild respiratory distress. Painless inspiration. Breath sounds normal. Diffuse expiratory wheezing, no rales/rhonchi noted. Chest nontender. No accessory muscle usage noted or decreased air movement noted. Abdomen: Soft and nontender. Bowel sounds normal in all 4 quadrants. No distention noted. No organomegaly noted. No visible injury noted. Back: No CVA tenderness. Full range of motion noted. Skin: Skin warm and dry. Normal skin color. Normal skin turgor. No rashes/lesions/lacerations noted. Extremities: No lower extremity edema. Extremities exhibit normal range of motion. Extremities nontender. Neuro: Oriented X 3. No motor deficit. No sensory deficit. Reflexes normal. Course Course Course Narrative: Assessment and plan 84-year-old male with history of COPD recently diagnosed with COVID 19 infection, patient complaining of shortness of breath and becoming hypoxic at 81% on room air at home, patient improved with 3 L of oxygen while in the emergency department now is satting 91-93%. Medical Decision Making Lab Data Lab results reviewed: Yes I reviewed the patient's lab results. Result diagrams: 04/01/20 05:54 04/01/20 05:54 Labs: Lab Results 04/01/20 04/01/20 Range/Units 05:54 05:54 WBC 8.2 (4.8-10.8) X10*3/uL RBC 4.11 L (4.60-5.80) X10*6/uL Hgb 11.7 L (14.0-18.0) g/dl Hct 35.3 L (42-52) % MCV 85.9 (80-98) fL MCH 28.5 (27.0-33.0) pg MCHC 33.1 (31.0-36.0) g/dl RDW 15.8 (11.0-16.0) % Plt Count 226 (160-400) X10*3/uL MPV 11.3 (9.4-12.4) fL Immature Gran % (Auto) 0.7 H (0.0-0.4) % Neut % (Auto) 83.3 H (45-73) % Lymph % (Auto) 12.9 L (20-40) % Andrews % (Auto) 2.9 (2-11) % Eos % (Auto) 0.1 (0-4) % Baso % (Auto) 0.1 (0-2) % Lymph # (Auto) 1.1 L (1.2-4.9) X10*3/uL Andrews # (Auto) 0.2 (0.1-1.2) X10*3/uL Eos # (Auto) 0.0 (0.0-0.4) X10*3/uL Baso # (Auto) 0.0 (0.0-0.2) X10*3/uL Abs Immat Gran (auto) 0.06 H (0.00-0.03) X10*3/uL Absolute Neuts (auto) 6.9 (2.0-8.3) X10*3/uL Absolute Nucleated RBC 0.000 (0.0-0.012) X10*3/uL Nucleated RBC % (auto) 0.0 (0.0-0.2) /100WBC Smear Tech's Comments VERIFIED Troponin I High Sens 215.3 H D (<3.5-35.0) ng/L B-Natriuretic Peptide 636 H (<100) pg/mL Imaging Data Chest x-ray: Radiologist's impression: Nonspecific interstitial prominence present throughout both lungs. ECG Data Interpretation: Sinus rhythm with marked sinus arrhythmia, at 91 beats per minute, right bundle-branch block. Discharge Plan Discharge Clinical Impression: COVID-19 virus infection, Acute exacerbation of chronic obstructive pulmonary disease (COPD) Patient Disposition: Admitted As Inpatient
[2020-04-01 06:12] LABS: Eosinophils Percent Auto 0.1 % (0-4); MANUAL DIFF FLAG SCAN; Mean Corpuscular HGB Conc 33.1 g/dl (31.0-36.0); Mean Corpuscular Hemoglobin 28.5 pg (27.0-33.0); PLT CLUMP 1; Red Cell Distribution Width 15.8 % (11.0-16.0); SCAN SMEAR FLAG 1
[2020-04-01 06:14] LABS: Basophils Percent Auto 0.1 % (0-2); Hematocrit 35.3 % (42-52); Hemoglobin 11.7 g/dl (14.0-18.0); Imm Gran Abs Auto 0.06 X10*3/uL (0.00-0.03); Imm Gran Pct Auto 0.7 % (0.0-0.4); Lymphocytes Absolute Auto 1.1 X10*3/uL (1.2-4.9); Lymphocytes Percent Auto 12.9 % (20-40); Mean Corpuscular Volume 85.9 fL (80-98); Mean Platelet Volume 11.3 fL (9.4-12.4); Monocytes Absolute Auto 0.2 X10*3/uL (0.1-1.2); Monocytes Percent Auto 2.9 % (2-11); Neutrophils Absolute Auto 6.9 X10*3/uL (2.0-8.3); Neutrophils Percent Auto 83.3 % (45-73); Platelet Count 226 X10*3/uL (160-400); Red Blood Count 4.11 X10*6/uL (4.60-5.80); SLIDE REVIEW VERIFIED; White Blood Count 8.2 X10*3/uL (4.8-10.8)
[2020-04-01 06:40] LABS: B Type Natriuretic Peptide 636 pg/mL (<100); Troponin-I High Sensitivity 215.3 ng/L (<3.5-35.0)
[2020-04-01 09:26] LABS: Alanine Aminotransferase 50 U/L (0-40); Alkaline Phosphatase 91 U/L (39-117); Anion Gap 19 (12-20); Aspartate Amino Transferase 91 U/L (5-37); Bilirubin Direct 0.3 mg/dL (0.0-0.5); Bilirubin Total 0.4 mg/dL (0.0-1.0); Blood Urea Nitrogen 27 mg/dL (9-16); Calcium 7.4 mg/dL (8.4-10.2); Carbon Dioxide 20 mmol/L (22-29); Chloride 107 mmol/L (96-108); Creatinine Clr Calc Pharmacy 55.2; Estimated Glomerular Filt Rate > 60; Glucose Random 102 mg/dL (60-115); Lipase 36 U/L (8-78); Potassium 2.8 mmol/L (3.3-5.1); Sodium 143 mmol/L (135-145); Total Protein 5.3 g/dL (6.5-8.0)
--- NOTE | 2020-04-01 09:43 | P.HPHOSP_ITS ---
History of Present Illness Date of Service: 04/01/20 Chief Complaint: Shortness of breath cough 84-year-old male with history of COPD presented with flu-like symptoms and was diagnosed with covid on 03/19/20, patient was reporting worsening cough and shortness of breath last 4-5 days, patient denies any fever chills or sick contact, patient was found to be hypoxic with saturation in 80s placed on oxygen, COVID PCR was positive and chest x-ray shows bilateral infiltrates, patient denies any chest pain nausea vomiting or diarrhea, inpatient admission was requested for acute hypoxic respiratory failure secondary to COVID pneumonia, Review of Systems Constitutional: Constitutional: Reports fatigue, Denies fever(s) and Reports weakness Eyes: Eyes: Reports no additional eye complaints Cardiovascular: Cardiovascular: Denies chest pain and Reports dyspnea Respiratory: Respiratory: Reports cough and Reports dyspnea Gastrointestinal: Gastrointestinal: Denies vomiting Musculoskeletal: Musculoskeletal: Reports no additional musculoskeletal complaints Neurologic: Denies focal weakness and Reports weakness Endocrine: Endocrine: Reports fatigue [facility] Medical History Anemia Anxiety and depression BPH (benign prostatic hyperplasia) Chronic abdominal pain COPD (chronic obstructive pulmonary disease) GERD (gastroesophageal reflux disease) History of CVA (cerebrovascular accident) History of rib fracture Hypercholesterolemia Hypertension Obesity (BMI 30-39.9) Obstructive sleep apnea Paroxysmal atrial fibrillation Peripheral vascular disease Protrusion of lumbar intervertebral disc Family History Father No problems noted. Mother Hx of type 1 diabetes mellitus Surgical History History of left knee replacement History of tonsillectomy History of total right hip replacement History of transurethral resection of prostate Social History (Updated 04/01/20 @ 10:12 by [place] Or[place]ñez MD) Household Members: Spouse Housing: Apartment Do you presently have visiting nurse or other home services: No Alcohol intake: never Smoking Status: Former smoker Tobacco Type: Cigarette Years Smoked: 30 yrs ago Smoked in Last 30 Days: No Patient Interested in Nicotine Replacement: No Patient Given Instructions on How to Stop Smoking: Yes Date Education Initiated: 04/02/20 Second Hand Smoke Exposure: No Use of substances other than those prescribed or required for medical reasons: No Currently Displaying Signs/Symptoms of Drug Intoxication Withdrawal: No Any prior treatment program specific to substance use: No Have you been hit, kicked, punched, or otherwise hurt by someone within the past year? 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 GIPSON ezetimibe [From Zetia] Allergy Mild ANAPHYLAXIS Verified 03/13/20 14:22 apixaban [From ELIQUIS] Allergy Unknown UNKNOWN, Verified 03/13/20 14:22 rash atorvastatin [From LIPITOR] Allergy Unknown UNKNOWN Verified 03/13/20 14:22 rosuvastatin [Crestor] Allergy Unknown myalgia Verified 03/13/20 14:22 Home Medications Medication Instructions Recorded Confirmed Type albuterol sulfate 90 mcg/actuation 2 puff INHALATION Q4-6H PRN 12/15/19 03/16/20 History aerosol inhaler atorvastatin 80 mg tablet 80 mg PO DAILY 12/15/19 04/01/20 History carvedilol 25 mg tablet 25 mg PO BID 12/15/19 04/01/20 History warfarin 2.5 mg PO SUTUWETHSA@1800 02/08/20 03/16/20 History warfarin 5 mg PO MOWEFR@1800 02/08/20 03/16/20 History Physical Exam Vital Signs and Narrative: Vital Signs: Last Vital Signs Temp 98.5 F 04/01/20 05:24 Pulse 94 04/01/20 05:24 Resp 30 H 04/01/20 05:24 BP 125/65 04/01/20 05:24 Pulse Ox 98 02/07/21 05:33 Body Mass Index 35.9 Const: General: no acute distress and tired appearing Eyes: General: appearance normal, both eyes and all related structures Neck: Yes normal visual inspection Resp: Effort & Inspection: Actively coughing Auscultation: wheezes Cardio: Jugular venous distension: no JVD Heart sounds: S1 normal heart sound present and S2 normal heart sound present GI: Inspection: Yes normal to inspection Auscultation: normal bowel sounds Skin: General skin exam: no rashes or lesions noted Neuro: General: patient oriented x3 Motor exam (neuro): 5/5 motor strength present throughout Results Labs CBC and Chem 7: 04/02/20 05:53 04/02/20 05:52 Labs: Laboratory Results - last 24 hr 04/01/20 04/01/20 04/01/20 05:54 05:54 08:09 MCV 85.9 MCH 28.5 MCHC 33.1 RDW 15.8 Plt Count 226 MPV 11.3 Immature Gran % (Auto) 0.7 H Neut % (Auto) 83.3 H Lymph % (Auto) 12.9 L [place] % (Auto) 2.9 Eos % (Auto) 0.1 Baso % (Auto) 0.1 Lymph # (Auto) 1.1 L [place] # (Auto) 0.2 Eos # (Auto) 0.0 Baso # (Auto) 0.0 Abs Immat Gran (auto) 0.06 H Absolute Neuts (auto) 6.9 Absolute Nucleated RBC 0.000 Nucleated RBC % (auto) 0.0 Smear Tech's Comments VERIFIED Anion Gap 19 Estim Creat Clear Calc 55.2 Estimated GFR > 60 Random Glucose 102 Lactic Acid Calcium 7.4 L D Total Bilirubin 0.4 Direct Bilirubin 0.3 AST 91 H ALT 50 H Alkaline Phosphatase 91 D Troponin I High Sens 215.3 H D B-Natriuretic Peptide 636 H Total Protein 5.3 L Albumin 3.0 L Lipase 36 04/01/20 08:09 MCV MCH MCHC RDW Plt Count MPV Immature Gran % (Auto) Neut % (Auto) Lymph % (Auto) [place] % (Auto) Eos % (Auto) Baso % (Auto) Lymph # (Auto) [place] # (Auto) Eos # (Auto) Baso # (Auto) Abs Immat Gran (auto) Absolute Neuts (auto) Absolute Nucleated RBC Nucleated RBC % (auto) Smear Tech's Comments Anion Gap Estim Creat Clear Calc Estimated GFR Random Glucose Lactic Acid 2.0 Calcium Total Bilirubin Direct Bilirubin AST ALT Alkaline Phosphatase Troponin I High Sens B-Natriuretic Peptide Total Protein Albumin Lipase Imaging Radiologist's Impressions: Impressions Chest X-Ray 04/01/20 05:21 IMPRESSION: Nonspecific interstitial prominence present throughout both lungs. Assessment and Plan (1) COVID-19 virus infection: Status: Acute (2) Acute exacerbation of chronic obstructive pulmonary disease (COPD): Status: Acute (3) GERD with esophagitis: Qualifiers: Esophagitis bleeding: without hemorrhage Qualified Code(s): K21.00 - Gastro-esophageal reflux disease with esophagitis, without bleeding Status: Acute (4) CHF (congestive heart failure): Qualifiers: Heart failure chronicity: chronic Heart failure type: diastolic Qualified Code(s): I50.32 - Chronic diastolic (congestive) heart failure Status: Acute (5) Urinary incontinence: Status: Acute (6) Obstructive sleep apnea: Problem details: Cannot tolerate CPAP. Status: Acute (7) BPH (benign prostatic hyperplasia): Qualifiers: Lower urinary tract symptom detail: urinary frequency Lower urinary tr act symptom presence: symptoms present Qualified Code(s): N40.1 - Benign prostatic hyperplasia with lower urinary tract symptoms; R35.0 - Frequency of micturition Problem details: Dora Alegria 11/2017 Status: Acute (8) Paroxysmal atrial fibrillation: Status: Acute (9) Anxiety and depression: Status: Acute (10) Hypertension: Qualifiers: Hypertension type: essential hypertension Qualified Code(s): I10 - Essential (primary) hypertension Status: Acute 84-year-old male presented with shortness of breath and cough for last 4- 5 days found to be hypoxic and COVID positive, chest x-ray shows bilateral infiltrates Acute hypoxic respiratory failure secondary to COVID pneumonia Continue dexamethasone Continue supportive management Will start on Rocephin and doxycycline Continue oxygen supplementation Continue isolation COPD with exacerbation Continue Breo Continue albuterol as needed Continue steroid Hypokalemia replaced Monitor potassium Hypercholesterolemia: Continue statin Hypertension: continue with carvedilol continue with chlorthalidone continue with losartan continue with verapamil CHF not in exacerbation continue with lasix GERD Continue PPI BPH continue with flomax home dose Paroxysmal atrial fibrillation: Continue Coreg Continue verapamil Hold Coumadin given INR supratherapeutic 8.7 DVT prophylax INR supratherapeutic hold Coumadin
[2020-04-01] MEDS: Potassium Chloride ER 20 MEQ TAB.ER.PRT 40 MEQ PO (10:00)
[2020-04-01 10:41] LABS: Prothrombin Time 105.6 SEC (10.8-13.0)
[2020-04-01 10:46] LABS: INTERNATIONAL NORM RATIO 8.7 (0.9-1.1)
[2020-04-01] MEDS: Losartan Potassium 50 MG TABLET 100 MG PO (12:00)
[2020-04-01] MEDS: carvediloL 25 MG TABLET PO (12:00)
[2020-04-01] MEDS: Tamsulosin HCL 0.4 MG CAPSULE PO (12:00)
[2020-04-01] MEDS: cefTRIAXone sodium 1 GM in 0.9 % Sodium Chloride 50 ML IV (12:01)
[2020-04-01] MEDS: VerapamiL HCL SR 180 MG TABLET.ER PO (12:34)
--- NOTE | 2020-04-01 13:29 | PC.NURSE ---
up to commode for second time. pt is unsteady on feet and hesitant with motions. sa o2 remains above 90% on 4l NC but patient is tachpnic with exertion. Diarrhea in small amount both times. brown.
--- NOTE | 2020-04-01 15:35 | PC.NURSE ---
patient had large bm at bedside commode.
--- NOTE | 2020-04-01 16:15 | PC.NURSE ---
pt was sating 77-79% on 6l NC while at rest in bed. Sats improving to 90% on 55% VENTI MASK. WAS TACHIPNIC BUT DENIES DISTRESS. [employer] HEAD TO BEDSIDE TO DESCRIBE BENIFITS OF LYING PRONE. PT STATES HE'LL TRY.
[2020-04-01] MEDS: 0.9 % Sodium Chloride Flush 3 ML SYRINGE IVFLUSH (16:17)
--- NOTE | 2020-04-01 17:13 | PC.NURSE ---
pt positioned left side lying without good effect. sao2 in mid 80's on 55% venti and tachipnea remains. primary rn in communication with MD regarding fever. now positioned supine at 45% but sao2 not imporoving. This rn to use NRB again and consult RT.
--- NOTE | 2020-04-01 17:55 | PC.NURSE ---
pt becoming slightl aggitated in bed, trying to sit up. hospitalist contacted again by Matt PAYNE. bp dropping, fever feels like it's broke but rectal needed. was on NRB in high 90's and now switched back to venti mask.
--- NOTE | 2020-04-01 18:02 | PC.NURSE ---
doc sing on phone. aware of patient condition and decompensation. bp improving and pt attempting to urinate. still tachipnic and now slightly diaphoretic.
[2020-04-01 18:29] LABS: ABG PCO2 25 mmHg (32-45); pH ABG 7.54 (7.35-7.45)
[2020-04-01 18:31] LABS: Base Excess ABG 0.9; HCO3 ABG 21 mmol/L (22-26); PO2 ABG 50 mmHg (83-108)
[2020-04-01] MEDS: Acetaminophen Supp 650 MG SUPP.RECT PR (18:38)
--- NOTE | 2020-04-01 18:42 | PC.NURSE ---
continues to be tachipnic. less dioriented after urinating. remains on nrb. anwers questions to person only but is not speaking much. increased work of breathing, denae lipscomb at bedside.
--- NOTE | 2020-04-01 19:05 | PC.NURSE ---
resp called by this rn. will reassess patient and consider high flow NC.
--- NOTE | 2020-04-01 19:22 | PM.EVENT ---
Event Note Date of Service: 04/01/20 Event Note: Called by the ED staff: Patient is becoming more hypoxic and blood pressure fluctuating. Patient seems to be confused Could able to say his name but says sob Follows some commands moves all extremities but seems very confused This morning's labs seems to be significant hadley: Acute respiratory failure secondary to COVID pneumonia, hypokalemia, INR of 8 Physical exam: Cvs: rrr, [id number] , no murmur res:diminished breath sounds at bases , few rhonchi but no rales. abd: no rebound or guarding ,nt, bs present. ext pulses present , no cyanosis neuro: axo1, nonfocal. Assessment and plan coordinated in H&P note In addition patient has acute respiratory hypoxemic respiratory failure secondary to COVID infection. Will repeat CBC, BMP, INR, lactic acid, chest and head CT ABG reviewed Id evaluation added-for remdesvir will need. ICU consult added and ICU is aware to follow-up on the patient. Night staff is aware to follow the patient and the labs above. Discussed with the patient's over the phone in detail she says the patient is full code.
--- NOTE | 2020-04-01 19:47 | ED.SOB ---
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 Mode of arrival: ambulatory Limitations: no limitations Related Data Home Medications Medication Instructions Recorded Confirmed albuterol sulfate 90 mcg/actuation 2 puff INHALATION Q4-6H PRN 12/15/19 03/16/20 aerosol inhaler atorvastatin 80 mg tablet 80 mg PO DAILY 12/15/19 04/01/20 carvedilol 25 mg tablet 25 mg PO BID 12/15/19 04/01/20 warfarin 2.5 mg PO SUTUWETHSA@1800 02/08/20 03/16/20 warfarin 5 mg PO MOWEFR@1800 02/08/20 03/16/20 Previous Rx's Medication Instructions Recorded furosemide 20 mg tablet 20 mg PO DAILY #28 tab 01/10/20 fluticasone furoate 200 1 ea PO DAILY #56 cap 01/24/20 mcg-vilanterol 25 mcg/dose inhalation powder pantoprazole 40 mg tablet,delayed 40 mg PO DAILY #30 tab 01/24/20 release bisacodyl 5 mg tablet,delayed 10 mg PO ONCE 1 Days #2 tab 02/16/20 release sucralfate 1 gram tablet 1 g PO DAILY #30 tab 02/27/20 chlorthalidone 25 mg tablet 25 mg PO QAM #28 tab 03/30/20 docusate sodium 100 mg capsule 100 mg PO DAILY #30 cap 03/30/20 losartan 100 mg tablet 100 mg PO DAILY #28 tab 03/30/20 nqfcagmklgna-cfiahluh-dvgumd tablet 1 tab PO DAILY #28 tab 03/30/20 tamsulosin 0.4 mg capsule 0.4 mg PO DAILY #28 cap 03/30/20 verapamil 180 mg 24 hr 180 mg PO DAILY #28 cap 03/30/20 capsule,extended release Allergies Allergy/AdvReac Type Severity Reaction Status Date / Time dabigatran etexilate Allergy Intermediate ITCHING Verified 03/13/20 14:22 [From PRADAXA] JORGE L Inhibitors Allergy Mild UNKNOWN, Verified 03/13/20 14:22 [Jorge L Inhibitors] FOUND IN MEDICAL RECORD 04/[address] GIPSON ezetimibe [From Zetia] Allergy Mild ANAPHYLAXIS Verified 03/13/20 14:22 apixaban [From ELIQUIS] Allergy Unknown UNKNOWN, Verified 03/13/20 14:22 rash atorvastatin [From LIPITOR] Allergy Unknown UNKNOWN Verified 03/13/20 14:22 rosuvastatin [Crestor] Allergy Unknown myalgia Verified 03/13/20 14:22 [facility] Past Medical History Medical History Anemia Anxiety and depression BPH (benign prostatic hyperplasia) Chronic abdominal pain COPD (chronic obstructive pulmonary disease) GERD (gastroesophageal reflux disease) History of CVA (cerebrovascular accident) History of rib fracture Hypercholesterolemia Hypertension Obesity (BMI 30-39.9) Obstructive sleep apnea Paroxysmal atrial fibrillation Peripheral vascular disease Protrusion of lumbar intervertebral disc Surgical History History of left knee replacement History of tonsillectomy History of total right hip replacement History of transurethral resection of prostate Family History Family History Father No problems noted. Mother Hx of type 1 diabetes mellitus Social History Social History (Updated 04/01/20 @ 10:12 by North Ordoñez MD) Household Members: Spouse Housing: House Alcohol intake: never Smoking Status: Former smoker Tobacco Type: Cigarette Years Smoked: 30 yrs ago Advance Directives: No Advance Directives Information Provided: No service: No Current occupational status: retired Current occupation: Right Handed Physical Exam Vital Signs: Vital Signs: Last Vital Signs Temp 104.4 F H 04/01/20 18:10 Pulse 92 04/01/20 18:10 Resp 35 H 04/01/20 18:10 BP 116/52 L 04/01/20 18:10 Pulse Ox 86 L 04/01/20 18:10 Body Mass Index 35.9 Procedures Central Line Placement Right IJ: Time Out Performed: Yes Patient Placed on Monitor/Pulse Ox: Yes MD Prep: mask, gown and gloves Central Line Prep: Chlorhexidine scrub Local Anesthetic: lidocaine 2% Amount of anesthesia used (mL): 5 Ultrasound Used for Placement: Yes Central Line Lumen Inserted: triple Post Procedure: sutured in place, good blood return, all ports aspirated, flushed, capped and sterile dressing applied Post Procedure X-Ray: tip of catheter in good position and no pneumothorax seen Patient Tolerated Procedure: well Complications: none MDM - SOB/Dyspnea Lab Data Result diagrams: 04/01/20 05:54 04/01/20 08:09 Labs: Lab Results 04/01/20 04/01/20 04/01/20 Range/Units 05:54 05:54 08:09 WBC 8.2 (4.8-10.8) X10*3/uL RBC 4.11 L (4.60-5.80) X10*6/uL Hgb 11.7 L (14.0-18.0) g/dl Hct 35.3 L (42-52) % MCV 85.9 (80-98) fL MCH 28.5 (27.0-33.0) pg MCHC 33.1 (31.0-36.0) g/dl RDW 15.8 (11.0-16.0) % Plt Count 226 (160-400) X10*3/uL MPV 11.3 (9.4-12.4) fL Immature Gran % (Auto) 0.7 H (0.0-0.4) % Neut % (Auto) 83.3 H (45-73) % Lymph % (Auto) 12.9 L (20-40) % Davidson % (Auto) 2.9 (2-11) % Eos % (Auto) 0.1 (0-4) % Baso % (Auto) 0.1 (0-2) % Lymph # (Auto) 1.1 L (1.2-4.9) X10*3/uL Davidson # (Auto) 0.2 (0.1-1.2) X10*3/uL Eos # (Auto) 0.0 (0.0-0.4) X10*3/uL Baso # (Auto) 0.0 (0.0-0.2) X10*3/uL Abs Immat Gran (auto) 0.06 H (0.00-0.03) X10*3/uL Absolute Neuts (auto) 6.9 (2.0-8.3) X10*3/uL Absolute Nucleated RBC 0.000 (0.0-0.012) X10*3/uL Nucleated RBC % (auto) 0.0 (0.0-0.2) /100WBC Smear Tech's Comments VERIFIED Sodium 143 (135-145) mmol/L Potassium 2.8 L (3.3-5.1) mmol/L Chloride 107 (96-108) mmol/L Carbon Dioxide 20 L (22-29) mmol/L Anion Gap 19 (12-20) BUN 27 H (9-16) mg/dL Creatinine 0.98 (0.5-1.4) mg/dL Estim Creat Clear Calc 55.2 Estimated GFR > 60 Random Glucose 102 (60-115) mg/dL Lactic Acid (0.5-2.0) mmol/L Calcium 7.4 L D (8.4-10.2) mg/dL Total Bilirubin 0.4 (0.0-1.0) mg/dL Direct Bilirubin 0.3 (0.0-0.5) mg/dL AST 91 H (5-37) U/L ALT 50 H (0-40) U/L Alkaline Phosphatase 91 D (39-117) U/L Troponin I High Sens 215.3 H D (<3.5-35.0) ng/L B-Natriuretic Peptide 636 H (<100) pg/mL Total Protein 5.3 L (6.5-8.0) g/dL Albumin 3.0 L (3.5-5.0) g/dL Lipase 36 (8-78) U/L 04/01/20 Range/Units 08:09 WBC (4.8-10.8) X10*3/uL RBC (4.60-5.80) X10*6/uL Hgb (14.0-18.0) g/dl Hct (42-52) % MCV (80-98) fL MCH (27.0-33.0) pg MCHC (31.0-36.0) g/dl RDW (11.0-16.0) % Plt Count (160-400) X10*3/uL MPV (9.4-12.4) fL Immature Gran % (Auto) (0.0-0.4) % Neut % (Auto) (45-73) % Lymph % (Auto) (20-40) % Davidson % (Auto) (2-11) % Eos % (Auto) (0-4) % Baso % (Auto) (0-2) % Lymph # (Auto) (1.2-4.9) X10*3/uL Davidson # (Auto) (0.1-1.2) X10*3/uL Eos # (Auto) (0.0-0.4) X10*3/uL Baso # (Auto) (0.0-0.2) X10*3/uL Abs Immat Gran (auto) (0.00-0.03) X10*3/uL Absolute Neuts (auto) (2.0-8.3) X10*3/uL Absolute Nucleated RBC (0.0-0.012) X10*3/uL Nucleated RBC % (auto) (0.0-0.2) /100WBC Smear Tech's Comments Sodium (135-145) mmol/L Potassium (3.3-5.1) mmol/L Chloride (96-108) mmol/L Carbon Dioxide (22-29) mmol/L Anion Gap (12-20) BUN (9-16) mg/dL Creatinine (0.5-1.4) mg/dL Estim Creat Clear Calc Estimated GFR Random Glucose (60-115) mg/dL Lactic Acid 2.0 (0.5-2.0) mmol/L Calcium (8.4-10.2) mg/dL Total Bilirubin (0.0-1.0) mg/dL Direct Bilirubin (0.0-0.5) mg/dL AST (5-37) U/L ALT (0-40) U/L Alkaline Phosphatase (39-117) U/L Troponin I High Sens (<3.5-35.0) ng/L B-Natriuretic Peptide (<100) pg/mL Total Protein (6.5-8.0) g/dL Albumin (3.5-5.0) g/dL Lipase (8-78) U/L Discharge Plan Discharge Clinical Impression: COVID-19 virus infection, Acute exacerbation of chronic obstructive pulmonary disease (COPD) Patient Disposition: Admitted As Inpatient
[2020-04-01 19:52] LABS: Hematocrit 33.6 % (42-52); Hemoglobin 11.1 g/dl (14.0-18.0); Mean Corpuscular Hemoglobin 28.4 pg (27.0-33.0); Mean Corpuscular Volume 85.9 fL (80-98); Mean Platelet Volume 9.8 fL (9.4-12.4); Platelet Count 433 X10*3/uL (160-400); Red Blood Count 3.91 X10*6/uL (4.60-5.80); Red Cell Distribution Width 15.9 % (11.0-16.0); White Blood Count 10.1 X10*3/uL (4.8-10.8)
--- NOTE | 2020-04-01 20:00 | PC.NURSE ---
Late entry. Patient was a very difficulrt stick and was consisitently tachipnic. Dr. Thompson and Doc Doug were at bedside, Donna trying initially for peripheral access via ultrasound but changing to central line. pt didn't tolerate central line well and was moving, slightly diaphoretic and complaining of diff breathing. Access was established however. At 45 degrees RR improved and patient was no longer diaphoretic. Pt brought to CT with Pat RN for CTA.
[2020-04-01 20:04] LABS: Prothrombin Time 94.8 SEC (10.8-13.0)
[2020-04-01 20:07] LABS: INTERNATIONAL NORM RATIO 7.8 (0.9-1.1)
[2020-04-01 20:34] LABS: Alanine Aminotransferase 44 U/L (0-40); Albumin Level 2.9 g/dL (3.5-5.0); Alkaline Phosphatase 83 U/L (39-117); Anion Gap 18 (12-20); Aspartate Amino Transferase 73 U/L (5-37); Bilirubin Direct 0.3 mg/dL (0.0-0.5); Bilirubin Total 0.4 mg/dL (0.0-1.0); Blood Urea Nitrogen 28 mg/dL (9-16); Calcium 7.2 mg/dL (8.4-10.2); Carbon Dioxide 21 mmol/L (22-29); Chloride 108 mmol/L (96-108); Creatinine Clr Calc Pharmacy 51.1; Estimated Glomerular Filt Rate > 60; Glucose Random 118 mg/dL (60-115); Lactic Acid 2.2 mmol/L (0.5-2.0); Magnesium 1.6 mg/dL (1.6-2.6); Potassium 3.5 mmol/L (3.3-5.1); Sodium 143 mmol/L (135-145); Total Protein 5.2 g/dL (6.5-8.0)
--- NOTE | 2020-04-01 20:45 | PC.NURSE ---
LE Rivas in ICU recommending patient remain in hospitalist care, have HOB at 45 with pillow between scapula, RT reeval, and continue to monitor BP and SaO2. Enoc lo, given update [phone]
--- NOTE | 2020-04-01 21:22 | PC.NURSE ---
frazier was difficult to pass and inflate but 150ml clear turning pink urine out. bladder scan afterwards shows empty bladder.
[2020-04-01 21:50] LABS: Reflex Lactate? Lactic Acid Added
[2020-04-01] MEDS: Potassium Chloride Packet 20 MEQ PACKET 40 MEQ PO (22:18)
--- NOTE | 2020-04-01 22:20 | PC.NURSE ---
sitting upright, alert, no increased work of breathing. nsr on monitor. taking po fluids and meds, has spoken with son on phone. still tachipnic but improving. high flow o2 remains at 40L/80%
[2020-04-02] VITALS (12 sets, daily range): BP systolic 105–134; BP diastolic 55–63; PULSE 80–106; RESP 18–30; TEMP 35.9–37.2; O2SAT 92–100; BMI 35.9
--- NOTE | 2020-04-02 00:45 | PC.NURSE ---
rn to rn elijah patterson on I[facility]
[2020-04-02 01:03] LABS: Glucose Urine UA NEG (NEG); Leukocyte Esterase Urine NEG (NEG); Nitrite Urine NEG (NEG); PH 6.5 (5.0-8.0); Specific Gravity - Urine 1.025 (1.005-1.025); Urine Blood 2+ (NEG); Urine Ketones NEG (NEG); Urine Protein 2+ MG/DL (NEG-TRACE)
[2020-04-02 01:06] LABS: Appearance Urine HAZY; Color Urine YELLOW
[2020-04-02 01:09] LABS: Glucose, Whole Blood 122 mg/dL (60-115)
[2020-04-02 01:11] LABS: Bacteria Urine 1+ /LPF; RBC Urine 50-75 /HPF (0); Squamous Epithelial Cell Urine 1+ /LPF
[2020-04-02 01:19] LABS: ~Lactic Acid-LAB USE ONLY 1.6 mmol/L (0.5-2.0)
[2020-04-02] MEDS: 0.9 % Sodium Chloride Flush 3 ML SYRINGE IVFLUSH ×3 (02:29→17:04)
[2020-04-02 06:10] LABS: MANUAL DIFF FLAG NO
[2020-04-02 06:16] LABS: Basophils Percent Auto 0.1 % (0-2); Hematocrit 33.3 % (42-52); Imm Gran Abs Auto 0.05 X10*3/uL (0.00-0.03); Imm Gran Pct Auto 0.5 % (0.0-0.4); Lymphocytes Absolute Auto 1.2 X10*3/uL (1.2-4.9); Lymphocytes Percent Auto 13.6 % (20-40); Mean Corpuscular Hemoglobin 28.8 pg (27.0-33.0); Mean Corpuscular Volume 87.2 fL (80-98); Mean Platelet Volume 10.2 fL (9.4-12.4); Monocytes Absolute Auto 0.4 X10*3/uL (0.1-1.2); Monocytes Percent Auto 4.1 % (2-11); Neutrophils Absolute Auto 7.5 X10*3/uL (2.0-8.3); Neutrophils Percent Auto 81.7 % (45-73); Platelet Count 395 X10*3/uL (160-400); Red Blood Count 3.82 X10*6/uL (4.60-5.80); Red Cell Distribution Width 16.1 % (11.0-16.0); White Blood Count 9.1 X10*3/uL (4.8-10.8)
[2020-04-02 06:50] LABS: Anion Gap 15 (12-20); Blood Urea Nitrogen 36 mg/dL (9-16); Calcium 7.3 mg/dL (8.4-10.2); Carbon Dioxide 25 mmol/L (22-29); Chloride 107 mmol/L (96-108); Creatinine Clr Calc Pharmacy 38.7; Estimated Glomerular Filt Rate 48; Glucose Random 115 mg/dL (60-115); Potassium 3.8 mmol/L (3.3-5.1); Sodium 143 mmol/L (135-145)
[2020-04-02 07:01] LABS: Prothrombin Time 78.6 SEC (10.8-13.0)
[2020-04-02 07:31] LABS: INTERNATIONAL NORM RATIO 6.5 (0.9-1.1)
[2020-04-02] MEDS: dexAMETHasone sod phosphate 4 MG/ML VIAL 6 MG IVPUSH (07:35)
[2020-04-02] MEDS: Docusate Sodium 100 MG CAPSULE PO (07:39)
[2020-04-02] MEDS: Fluticasone/Vilanterol 100/25 BLST.W.DEV 1 PUFF INHALE (07:59)
--- NOTE | 2020-04-02 08:46 | MHC.CM.PN ---
Addendum entered by Hoa Rodrigues 04/02/20 16:23: unable to reach pt/. UPSTAIRS MAID completed using EMR. per records, pt lives at home with his and has both a AWAKE OVERNIGHT MONITOR and CCA nurse. Pt uses a walker, CPAP and O2 at home. Pts PCP is Jakub Lin and he has a HCP on file. VM left regarding pts medicare rights and a copy was sent. current DC plan is home with resumption of services. Original Note: CM ATTEMPTING TO REACH PT. CM CALLED PTS CELL PHONE, , AND ROOM EXTENSION 0612. A VM MESSAGE WAS LEFT ON PTS CELL PHONE EXPLAINING HIS MEDICARE RIGHTS AND INFORMING HIM A COPY WOULD BE MAILED TO HIS HOME. CM WILL TRY TO CONTACT PT LATER IN THE DAY, IF PT STILL UNAVAILABLE, CM WILL CONTACT HIS .
[2020-04-02 10:12] LABS: D Dimer 317 NG/ML
--- NOTE | 2020-04-02 10:28 | P.CDIC_ITS ---
CDI Concurrent Query Service Date: 04/03/20 Documentation Clarification: Please clarify if you are treating a proba ble/suspected/likely or confirmed: Acute hypoxic respiratory failure Acute on chronic hypoxic respiratory failure Please specify if known Provider Response: Other Other Diagnosis: acute on chronic hypoxic respiratory failure PLEASE DO NOT DELETE/MODIFY EXISTING CONTENT Additional information is needed in order to code to the highest accuracy and appropriate Severity of Illness (SOI). Please clarify the information noted below in your progress notes and discharge summary. Risk Factors/Clinical Indicators/Treatments Ed: patient normally uses 3 liters supplemental oxygen at home, difficulty breathing, satting to 81%. hypoxic Acute hypoxic respiratory failure 2nd to covid pneumonia. CDS: Aneta Dhillon CCS, CDIS Contact Number: [phone] Please Review the information above and exercise your independent professional judgment in responding to the query. If you concur, pleas document in the PROGRESS NOTES and DISCHARGE SUMMARY. If you do not agree with the query, please document in the query above. THIS QUERY IS PART OF THE PERMANENT MEDICAL RECORD
--- NOTE | 2020-04-02 11:11 | CONS_ITS ---
DATE OF SERVICE: 04/02/2020 REFERRING PHYSICIAN: Notrh Ordoñez MD REASON FOR CONSULTATION: Worsening respiratory failure. CHIEF COMPLAINT: Shortness of breath. HISTORY OF PRESENT ILLNESS: Mr. Da Silva is an 84-year-old gentleman with a known history of COPD, cardiovascular disease, obesity, who apparently was in usual state of health until back on March 19 when he started developing flu-like symptoms. He did come in and he got swab positive for COVID-19 via PCR. The patient denied any sick contacts at the time. He was under quarantine at home. However, his symptoms got worse and decided to come back to the ED for further evaluation. There, he was found to be hypoxic down to the 80s. Chest x-ray, bilateral airspace disease. The patient had a CT scan of the chest demonstrating diffuse airspace disease and some tracheobronchomalacia. The patient was admitted to the intermediate medical care unit. There, he is initially on a Ventimask and now on high-flow. The patient is getting more short of breath. He has been coughing, some productive phlegm. Complains of the shortness of breath. Denies any chest pains. On further evaluation as far as his blood work, he does have an IgG level of 543, demonstrating evidence of hypogammaglobulinemia and likely this immunocompromised condition that may result in worsening of the viral syndrome. REVIEW OF SYSTEMS: Ten systems reviewed. Complains of constitutional symptoms as stated above, malaise. Complains of the respiratory symptoms as stated above. Denies any cardiac symptoms. Denies any GI symptoms except for decreased p.o. intake. Denies any symptoms. Does feel generalized weakness. The rest of the 10-organ system is negative. PAST MEDICAL HISTORY: Please refer to the HPI, but includes anemia, anxiety, BPH, COPD, GERD, CVA, rib fractures causes anemia, hypertension, obesity, GHULAM, atrial fibrillation on Coumadin, peripheral vascular disease, and lumbar intervertebral disk disease. FAMILY HISTORY: Positive for diabetes. PAST SURGICAL HISTORY: Knee replacement, tonsillectomy, right hip replacement, and TURP for prostate cancer apparently. ALLERGIES: PLEASE REFER TO THE MAR FOR THE FULL LIST. MEDICATIONS: Please refer to the MAR for the full list. Currently on albuterol, Coreg, losartan, Flomax, verapamil, ceftriaxone, doxycycline, Breo, dexamethasone 6 mg IV daily, multivitamins, and Lipitor. He is off Coumadin right now, because the INR is elevated. PHYSICAL EXAMINATION: GENERAL: The patient is a pleasant gentleman, ill-appearing. VITAL SIGNS: The patient is afebrile, although T-max was 102.6 that was yesterday, breathing 24 times a minute, saturating 92% on high-flow 100%. Pleasant gentleman, ill-appearing. HEENT: Pupils equal and reactive to light. Oropharynx clear. LUNGS: With some crackles, some rhonchi. CARDIAC: Regular rhythm. Tachycardic. ABDOMEN: Positive bowel sound, soft. EXTREMITIES: No clubbing or cyanosis. LABORATORY DATA: His white count was 9.1, hemoglobin 11.0, platelet count stable, he has a left shift. Microbiology, no growth to date. Again, serology positive for COVID back on . IgG level back on 03/15/2019 was 543, also has IgM deficiency consistent with hypogammaglobulinemia. His INR was elevated at 6.5 today. IMAGING STUDIES: CT scan of the chest with extensive airspace disease consistent with viral process and likely now postviral bacterial pneumonia, coronary artery disease, aortic valve disease also mentioned. ASSESSMENT: Mr. Da Silva is an 84-year-old gentleman with significant comorbidities, presenting after developing COVID-19, now with acute respiratory failure. 1. The patient with acute hypoxic respiratory failure secondary to significant lower respiratory disease with significant pneumonitis and pneumonia, resulting worsening V/Q mismatch and significant oxygen requirements. 2. 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 Da Silva can develop a longer course and a more severe course of disease based on his immunodeficiencies. It is unlikely the patient is able to mount an antibody response. Therefore, convalescent plasma become helpful. 3. Pneumonia, likely bacterial. RECOMMENDATIONS: 1. Continue with current antibiotics, ceftriaxone, and doxycycline. 2. Continue dexamethasone 6 mg IV daily for now. 3. No need for anticoagulation since he is supratherapeutic on his Coumadin. Try to get that INR down to avoid diffuse alveolar hemorrhage. 4. We will check his antibodies for SARS-CoV-2, but also order convalescent plasma since it may delay his treatment and the patient should receive 2 dosages of convalescent plasma. Further recommendations, continue with the high-flow. Continue with awake proning and the patient is a full code at this time. MD CHAI Patino/TYRESE / [id number]
[2020-04-02] MEDS: cefTRIAXone sodium 1 GM in 0.9 % Sodium Chloride 50 ML IV (13:27)
--- NOTE | 2020-04-02 16:16 | P.CNID_ITS ---
History of Present Illness Data of Consult Service Date: 04/02/20 Requesting physician: [place] Primary Care Provider: Unknown Physician HPI Reason for consult: shortness of breath He has shortness of breath for last four days He has increased oxygen requirements He has had Zpack and no better Review of Systems Cardiovascular: Cardiovascular: Reports dyspnea Respiratory: Respiratory: Reports dyspnea PMFSH Past Medical History Medical History Anemia Anxiety and depression BPH (benign prostatic hyperplasia) Chronic abdominal pain COPD (chronic obstructive pulmonary disease) GERD (gastroesophageal reflux disease) History of CVA (cerebrovascular accident) History of rib fracture Hypercholesterolemia Hypertension Obesity (BMI 30-39.9) Obstructive sleep apnea Paroxysmal atrial fibrillation Peripheral vascular disease Protrusion of lumbar intervertebral disc Family History Family History Father No problems noted. Mother Hx of type 1 diabetes mellitus Family history: reviewed and not pertinent Surgical History Surgical History History of left knee replacement History of tonsillectomy History of total right hip replacement History of transurethral resection of prostate Social History Social History Household Members: Spouse Housing: Apartment Do you presently have visiting nurse or other home services: No Alcohol intake: never Smoking Status: Former smoker Tobacco Type: Cigarette Years Smoked: 30 yrs ago Smoked in Last 30 Days: No Patient Interested in Nicotine Replacement: No Patient Given Instructions on How to Stop Smoking: Yes Date Education Initiated: 04/02/20 Second Hand Smoke Exposure: No Use of substances other than those prescribed or required for medical reasons: No Currently Displaying Signs/Symptoms of Drug Intoxication Withdrawal: No Any prior treatment program specific to substance use: No Have you been hit, kicked, punched, or otherwise hurt by someone within the past year? 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 GIPSON ezetimibe [From Zetia] Allergy Mild ANAPHYLAXIS Verified 03/13/20 14:22 apixaban [From ELIQUIS] Allergy Unknown UNKNOWN, Verified 03/13/20 14:22 rash atorvastatin [From LIPITOR] Allergy Unknown UNKNOWN Verified 03/13/20 14:22 rosuvastatin [Crestor] Allergy Unknown myalgia Verified 03/13/20 14:22 Home Medications Medication Instructions Recorded Confirmed Type albuterol sulfate 90 mcg/actuation 2 puff INHALATION Q4-6H PRN 12/15/19 03/16/20 History aerosol inhaler atorvastatin 80 mg tablet 80 mg PO DAILY 12/15/19 04/01/20 History carvedilol 25 mg tablet 25 mg PO BID 12/15/19 04/01/20 History warfarin 2.5 mg PO SUTUWETHSA@1800 02/08/20 03/16/20 History warfarin 5 mg PO MOWEFR@1800 02/08/20 03/16/20 History Physical Exam Vital Signs: Vital Signs: Last Vital Signs Temp 98.5 F 04/02/20 15:41 Pulse 89 04/02/20 15:41 Resp 30 H 04/02/20 15:41 BP 109/58 L 04/02/20 15:41 Pulse Ox 98 04/02/20 15:41 Body Mass Index 35.9 Const: General: cooperative HENMT: Head: Yes normal to inspection General nose exam: Normal external nose present Mouth: Normal oral and palatal mucosa present Eyes: General: appearance normal, both eyes and all related structures Resp: Effort & Inspection: normal respiratory effort Cardio: Rate: regular rate Rhythm: regular rhythm GI: Palpation (GI): nontender Skin: General skin exam: no rashes or lesions noted Extrem: General: Yes normal to inspection Assessment and Plan (1) COVID-19 virus infection: Problem details: He has had shortness of breath He has oxygen requirements above baseline He has no signs of bacterial pneumonia Status: Acute Continue Dexamethasone Oxygen as needed Results Labs CBC & Chem 7: 04/02/20 05:53 04/02/20 05:52 Labs: Short CBC 04/01/20 04/02/20 Range/Units 19:42 05:53 WBC 10.1 9.1 (4.8-10.8) X10*3/uL Hgb 11.1 L 11.0 L (14.0-18.0) g/dl Hct 33.6 L 33.3 L (42-52) % Plt Count 433 H D 395 (160-400) X10*3/uL BMP 04/01/20 04/02/20 19:42 05:52 Sodium 143 143 Potassium 3.5 D 3.8 Chloride 108 107 Carbon Dioxide 21 L 25 BUN 28 H 36 H Creatinine 1.06 1.40 Calcium 7.2 L 7.3 L Liver Function 04/01/20 Range/Units 19:42 Total Bilirubin 0.4 (0.0-1.0) mg/dL Direct Bilirubin 0.3 (0.0-0.5) mg/dL AST 73 H (5-37) U/L ALT 44 H (0-40) U/L Alkaline Phosphatase 83 (39-117) U/L Albumin 2.9 L (3.5-5.0) g/dL Urine 04/02/20 Range/Units 00:51 Urine Color YELLOW Urine Appearance HAZY Urine pH 6.5 (5.0-8.0) Ur Specific [place] 1.025 (1.005-1.025) Urine Protein 2+ H (NEG-TRACE) MG/DL Urine Glucose (UA) NEG (NEG) MG/DL Microbiology Microbiology Results: Microbiology 04/01/20 06:18 Blood - Venous Blood Culture - Preliminary No growth after 24 hours. 04/01/20 05:54 Blood - Venous Blood Culture - Preliminary No growth after 24 hours.
--- NOTE | 2020-04-02 17:15 | HO.PM.IMPN ---
Subjective Subjective Date of Service: 04/02/20 Interval History: Patient seen and examined at bedside patient currently on high-flow Constitutional Constitutional: Reports fatigue, Denies fever(s) and Reports weakness Eyes Eyes: Reports no additional eye complaints Cardiovascular Cardiovascular: Denies chest pain and Reports dyspnea Respiratory Respiratory: Reports cough and Reports dyspnea Gastrointestinal Gastrointestinal: Denies vomiting Musculoskeletal Musculoskeletal: Reports no additional musculoskeletal complaints Neurologic Neurologic: Denies focal weakness and Reports weakness Endocrine Endocrine: Reports fatigue Physical Exam Vital Signs: Vital Signs: Last Vital Signs Temp 98.5 F 04/02/20 15:41 Pulse 89 04/02/20 15:41 Resp 20 04/02/20 16:14 BP 109/58 L 04/02/20 15:41 Pulse Ox 98 04/02/20 15:41 Body Mass Index 35.9 Const: General: no acute distress and tired appearing Orientation/consciousness: patient oriented x3 Eyes: General: appearance normal, both eyes and all related structures Neck: Neck: Yes normal visual inspection Resp: Effort & Inspection: Actively coughing Auscultation: wheezes Cardio: Jugular venous distension: no JVD Heart sounds: S1 normal heart sound present and S2 normal heart sound present GI: Inspection: Yes normal to inspection Auscultation: normal bowel sounds Skin: General skin exam: no rashes or lesions noted Neuro: General: patient oriented x3 Motor exam (neuro): 5/5 motor strength present throughout Objective Data Current Medications Generic Name Dose Route Start Last Admin Trade Name Freq PRN Reason Stop Dose Admin Acetaminophen 650 mg 04/01/20 18:29 04/01/20 18:38 Acetaminophen Supp 650 Mg Supp.Rect SC 650 mg Q6H PRN Administration Fever Albuterol Sulfate 2 puff 04/01/20 11:15 Albuterol Sulfate 90 Mcg 8 Gm Inhaler INHALE RQ4H PRN Dyspnea Atorvastatin Calcium 80 mg 04/02/20 21:00 Atorvastatin Calcium 80 Mg Tablet PO BEDTIME DEEPAK Carvedilol 25 mg 04/01/20 11:15 04/01/20 12:00 Carvedilol 25 Mg Tablet PO 25 mg BID DEEPAK Administration Protocol Dexamethasone Sodium Phosphate 6 mg 04/02/20 09:00 04/02/20 07:35 Dexamethasone Sod Phosphate 4 Mg/Ml Vial IVPUSH 6 mg DAILY DEEPAK Administration Docusate Sodium 100 mg 04/02/20 09:00 04/02/20 07:39 Docusate Sodium 100 Mg Capsule PO 100 mg DAILY DEEPAK Administration Doxycycline Hyclate 100 mg 04/01/20 20:00 04/02/20 07:39 Doxycycline Hyclate 100 Mg Tablet PO 100 mg Q12H DEEPAK Administration Fluticasone/Vilanterol 1 puff 04/02/20 08:00 04/02/20 07:59 Fluticasone/Vilanterol 100/25 Blst.W.Dev INHALE 1 puff RDAILY [facility] Administration Ceftriaxone Sodium 1 gm/ 50 mls @ 100 mls/hr 04/01/20 12:00 04/02/20 14:38 Sodium Chloride IV Infused Q24H DEEPAK Infusion Remdesivir 200 mg/ Sodium 210 mls @ 105 mls/hr 04/02/20 18:00 Chloride IV 04/02/20 19:59 ONCE ONE Remdesivir 100 mg/ Sodium 230 mls @ 115 mls/hr 04/03/20 18:00 Chloride IV 04/06/20 19:59 Q24H DEEPAK Losartan Potassium 100 mg 04/01/20 11:15 04/01/20 12:00 Losartan Potassium 50 Mg Tablet PO 100 mg DAILY [facility] Administration Protocol Multivitamins/Minerals 1 tab 04/02/20 09:00 04/02/20 07:39 Multivitamin With Minerals Tablet PO 1 tab DAILY [facility] Administration Sodium Chloride 3 ml 04/01/20 16:00 04/02/20 17:04 0.9 % Sodium Chloride Flush 3 Ml Syringe IVFLUSH 3 ml QSHIFT [facility] Administration Tamsulosin HCl 0.4 mg 04/01/20 11:15 04/01/20 12:00 Tamsulosin Hcl 0.4 Mg Capsule PO 0.4 mg DAILY [facility] Administration Verapamil HCl 180 mg 04/01/20 11:15 04/01/20 12:34 Verapamil Hcl Sr 180 Mg Tablet.Er PO 180 mg DAILY [facility] Administration Protocol Labs CBC & Chem 7: 04/02/20 05:53 04/02/20 05:52 Microbiology Microbiology Results: Microbiology 04/01/20 06:18 Blood - Venous Blood Culture - Preliminary No growth after 24 hours. 04/01/20 05:54 Blood - Venous Blood Culture - Preliminary No growth after 24 hours. Assessment and Plan (1) COVID-19 virus infection: Problem details: H Status: Acute (2) Acute exacerbation of chronic obstructive pulmonary disease (COPD): Status: Acute (3) GERD with esophagitis: Status: Acute (4) CHF (congestive heart failure): Status: Acute (5) Urinary incontinence: Status: Acute (6) Obstructive sleep apnea: Problem details: Cannot tolerate CPAP. Status: Acute (7) BPH (benign prostatic hyperplasia): Problem details: Laser Dr. Alegria 11/2017 Status: Acute (8) Paroxysmal atrial fibrillation: Status: Acute (9) Anxiety and depression: Status: Acute (10) Hypertension: Status: Acute Assessment and Plan: 84-year-old male presented with shortness of breath and cough for last 4- 5 days found to be hypoxic and COVID positive, chest x-ray shows bilateral infiltrates Acute hypoxic respiratory failure secondary to COVID pneumonia Continue dexamethasone Continue supportive management continueRocephin and doxycycline Continue oxygen supplementation currently on high-flow Continue isolation COPD with exacerbation Continue Breo Continue albuterol as needed Continue steroid Hypokalemia replaced Monitor potassium Hypercholesterolemia: Continue statin Hypertension: continue with carvedilol continue with chlorthalidone continue with losartan continue with verapamil CHF not in exacerbation continue with lasix GERD Continue PPI BPH continue with flomax home dose Paroxysmal atrial fibrillation: Continue Coreg Continue verapamil Hold Coumadin given INR supratherapeutic 8.7 DVT prophylax INR supratherapeutic hold Coumadin
[2020-04-02 18:37] LABS: NT-proBNP 5850 pg/mL
[2020-04-02] MEDS: Remdesivir 200 MG in 0.9 % Sodium Chloride 210 ML 105 MG IV (19:02)
[2020-04-02] MEDS: Atorvastatin Calcium 80 MG TABLET PO (21:07)
[2020-04-03] VITALS (10 sets, daily range): BP systolic 104–140; BP diastolic 58–72; PULSE 77–128; RESP 18–22; TEMP 36.3–36.7; O2SAT 94–98
[2020-04-03] MEDS: 0.9 % Sodium Chloride Flush 3 ML SYRINGE IVFLUSH ×3 (01:50→15:45)
[2020-04-03] MEDS: VerapamiL HCL SR 180 MG TABLET.ER PO (04:35)
--- NOTE | 2020-04-03 06:10 | PC.NURSE ---
care assumed 3am...awake..alert...oriented but vague at times..hi-son o2 55% & 40 l/m..no distress at rest...sao2 96-97%...monitor atrial fib hr 120's-130's...coreg & verapamil previously held 04/01 for marginal bp...bp stable now..hospitalist updated....verapamil er order resumed and am dose given eraly per md...current hr 98-102...nsr 1sr-degree av-block with pac's...denies discomfort
[2020-04-03 07:08] LABS: Prothrombin Time 67.2 SEC (10.8-13.0)
[2020-04-03 07:12] LABS: INTERNATIONAL NORM RATIO 5.6 (0.9-1.1)
[2020-04-03] MEDS: Fluticasone/Vilanterol 100/25 BLST.W.DEV 1 PUFF INHALE (07:47)
[2020-04-03] MEDS: dexAMETHasone sod phosphate 4 MG/ML VIAL 6 MG IVPUSH (08:46)
[2020-04-03] MEDS: Docusate Sodium 100 MG CAPSULE PO (08:47)
--- NOTE | 2020-04-03 09:17 | MHC.CM.PN ---
CM spoke wiith patient's /HCP [place] [phone] who reports patient has [employer] services with [facility] and his son is his GENERAL SCRAP WORKER who lives with patient and his . Patient amb with a cane and sometimes a walker. HCP is on file and patient does not have VNA at this time. Patient will need transportation home. CM will continue to follow for discharge needs.
--- NOTE | 2020-04-03 10:50 | PM.PNPUL ---
Subjective Subjective Date of Service: 04/03/20 Interval history: The patient was seen on exam. The patient has been doing a little better. He was weaned off the high-flow to 10 L nasal cannula. He did not receive the cuffless and plasma. Objective Data Labs CBC & Chem 7: 04/02/20 05:53 04/02/20 05:52 Labs: Laboratory Results - last 24 hr 04/01/20 04/02/20 04/03/20 19:42 15:12 05:57 PT 67.2 H INR 5.6 H* NT-Pro-B Natriuret Pep 5850 H Blood Type A Positive Antibody Screen NEGATIVE Microbiology Microbiology Results: Microbiology 04/01/20 06:18 Blood - Venous Blood Culture - Preliminary No growth after 48 hours. 04/01/20 05:54 Blood - Venous Blood Culture - Preliminary No growth after 48 hours. Physical Exam Vital Signs: Vital Signs: Last Vital Signs Temp 97.6 F 04/03/20 07:51 Pulse 86 04/03/20 07:54 Resp 20 04/03/20 07:56 BP 140/72 H 04/03/20 07:51 Pulse Ox 98 04/03/20 07:51 Body Mass Index 35.9 Assessment and Plan Assessment and plan (1) COVID-19 virus infection: Problem details: H Status: Acute (2) Acute exacerbation of chronic obstructive pulmonary disease (COPD): Status: Acute (3) Acute respiratory failure with hypoxia: Status: Acute (4) Pneumonia: Status: Acute Assessment and Plan: continue respiratory therapy Dry HF Awake proning Tacho Nash Time Spent With Patient Time: Total time spent is greater than 50% in coordination of care (as documented) at patient's floor/unit and/or counseling patient: Time with patient: 15 - 24 minutes
[2020-04-03] MEDS: cefTRIAXone sodium 1 GM in 0.9 % Sodium Chloride 50 ML IV (13:47)
--- NOTE | 2020-04-03 17:00 | HO.PM.IMPN ---
Subjective Subjective Date of Service: 04/03/20 Interval History: Patient seen and examined at bedside patient currently on high-flow reported weakness Constitutional Constitutional: Reports fatigue, Denies fever(s) and Reports weakness Eyes Eyes: Reports no additional eye complaints Cardiovascular Cardiovascular: Denies chest pain and Reports dyspnea Respiratory Respiratory: Reports cough and Reports dyspnea Gastrointestinal Gastrointestinal: Denies vomiting Musculoskeletal Musculoskeletal: Reports no additional musculoskeletal complaints Neurologic Neurologic: Denies focal weakness and Reports weakness Endocrine Endocrine: Reports fatigue Physical Exam Vital Signs: Vital Signs: Last Vital Signs Temp 97.6 F 04/03/20 15:35 Pulse 77 04/03/20 15:35 Resp 18 04/03/20 15:35 BP 131/60 04/03/20 15:35 Pulse Ox 98 04/03/20 15:35 Body Mass Index 35.9 Const: General: no acute distress and tired appearing Orientation/consciousness: patient oriented x3 Eyes: General: appearance normal, both eyes and all related structures Neck: Neck: Yes normal visual inspection Resp: Effort & Inspection: Actively coughing Auscultation: wheezes Cardio: Jugular venous distension: no JVD Heart sounds: S1 normal heart sound present and S2 normal heart sound present GI: Inspection: Yes normal to inspection Auscultation: normal bowel sounds Skin: General skin exam: no rashes or lesions noted Neuro: General: patient oriented x3 Motor exam (neuro): 5/5 motor strength present throughout Objective Data Current Medications Generic Name Dose Route Start Last Admin Trade Name Freq PRN Reason Stop Dose Admin Acetaminophen 650 mg 04/01/20 18:29 04/01/20 18:38 Acetaminophen Supp 650 Mg Supp.Rect MS 650 mg Q6H PRN Administration Fever Albuterol Sulfate 2 puff 04/01/20 11:15 Albuterol Sulfate 90 Mcg 8 Gm Inhaler INHALE RQ4H PRN Dyspnea Atorvastatin Calcium 80 mg 04/02/20 21:00 04/02/20 21:07 Atorvastatin Calcium 80 Mg Tablet PO 80 mg BEDTIME DEEPAK Administration Carvedilol 25 mg 04/01/20 11:15 04/01/20 12:00 Carvedilol 25 Mg Tablet PO 25 mg BID DEEPAK Administration Protocol Dexamethasone Sodium Phosphate 6 mg 04/02/20 09:00 04/03/20 08:46 Dexamethasone Sod Phosphate 4 Mg/Ml Vial IVPUSH 6 mg DAILY DEEPAK Administration Docusate Sodium 100 mg 04/02/20 09:00 04/03/20 08:47 Docusate Sodium 100 Mg Capsule PO 100 mg DAILY DEEPAK Administration Doxycycline Hyclate 100 mg 04/01/20 20:00 04/03/20 08:46 Doxycycline Hyclate 100 Mg Tablet PO 100 mg Q12H DEEPAK Administration Fluticasone/Vilanterol 1 puff 04/02/20 08:00 04/03/20 07:47 Fluticasone/Vilanterol 100/25 Blst.W.Dev INHALE 1 puff RDAILY [facility] Administration Ceftriaxone Sodium 1 gm/ 50 mls @ 100 mls/hr 04/01/20 12:00 04/03/20 15:50 Sodium Chloride IV Infused Q24H DEEPAK Infusion Remdesivir 100 mg/ Sodium 230 mls @ 115 mls/hr 04/03/20 18:00 Chloride IV 04/06/20 19:59 Q24H DEEPAK Losartan Potassium 100 mg 04/01/20 11:15 04/01/20 12:00 Losartan Potassium 50 Mg Tablet PO 100 mg DAILY [facility] Administration Protocol Multivitamins/Minerals 1 tab 04/02/20 09:00 04/03/20 08:47 Multivitamin With Minerals Tablet PO 1 tab DAILY [facility] Administration Sodium Chloride 3 ml 04/01/20 16:00 04/03/20 15:45 0.9 % Sodium Chloride Flush 3 Ml Syringe IVFLUSH 3 ml QSHIFT [facility] Administration Tamsulosin HCl 0.4 mg 04/01/20 11:15 04/01/20 12:00 Tamsulosin Hcl 0.4 Mg Capsule PO 0.4 mg DAILY [facility] Administration Verapamil HCl 180 mg 04/01/20 11:15 04/03/20 04:35 Verapamil Hcl Sr 180 Mg Tablet.Er PO 180 mg DAILY DEEPAK Administration Protocol Labs CBC & Chem 7: 04/02/20 05:53 04/02/20 05:52 Microbiology Microbiology Results: Microbiology 04/01/20 06:18 Blood - Venous Blood Culture - Preliminary No growth after 48 hours. 04/01/20 05:54 Blood - Venous Blood Culture - Preliminary No growth after 48 hours. Assessment and Plan (1) COVID-19 virus infection: Problem details: H Status: Acute (2) Acute exacerbation of chronic obstructive pulmonary disease (COPD): Status: Acute (3) GERD with esophagitis: Status: Acute (4) CHF (congestive heart failure): Status: Acute (5) Urinary incontinence: Status: Acute (6) Obstructive sleep apnea: Problem details: Cannot tolerate CPAP. Status: Acute (7) BPH (benign prostatic hyperplasia): Problem details: Laser Dr. Alegria 11/2017 Status: Acute (8) Paroxysmal atrial fibrillation: Status: Acute (9) Anxiety and depression: Status: Acute (10) Hypertension: Status: Acute Assessment and Plan: 84-year-old male presented with shortness of breath and cough for last 4- 5 days found to be hypoxic and COVID positive, chest x-ray shows bilateral infiltrates Acute hypoxic respiratory failure secondary to COVID pneumonia still requiring high-flow Continue dexamethasone Continue supportive management continue Rocephin and doxycycline Continue oxygen supplementation currently on high-flow Continue isolation COPD with exacerbation Continue Breo Continue albuterol as needed Continue steroid Hypokalemia replaced Monitor potassium Hypercholesterolemia: Continue statin Hypertension: continue with carvedilol continue with chlorthalidone continue with losartan continue with verapamil CHF not in exacerbation continue with lasix GERD Continue PPI BPH continue with flomax home dose Paroxysmal atrial fibrillation: Continue Coreg Continue verapamil Hold Coumadin given INR supratherapeutic 8.7 DVT prophylax INR supratherapeutic hold Coumadin
[2020-04-03] MEDS: Remdesivir 100 MG in 0.9 % Sodium Chloride 230 ML 115 MG IV (18:11)
[2020-04-03] MEDS: Atorvastatin Calcium 80 MG TABLET PO (20:56)
[2020-04-04] VITALS (10 sets, daily range): BP systolic 136–174; BP diastolic 63–81; PULSE 74–87; RESP 16–20; TEMP 36.3–36.8; O2SAT 91–98
[2020-04-04] MEDS: 0.9 % Sodium Chloride Flush 3 ML SYRINGE IVFLUSH ×3 (00:04→15:52)
[2020-04-04 06:42] LABS: INTERNATIONAL NORM RATIO 3.2 (0.9-1.1)
[2020-04-04] MEDS: Fluticasone/Vilanterol 100/25 BLST.W.DEV 1 PUFF INHALE (07:21)
[2020-04-04] MEDS: dexAMETHasone sod phosphate 4 MG/ML VIAL 6 MG IVPUSH (08:28)
[2020-04-04] MEDS: Docusate Sodium 100 MG CAPSULE PO (08:28)
[2020-04-04] MEDS: VerapamiL HCL SR 180 MG TABLET.ER PO (08:28)
--- NOTE | 2020-04-04 09:28 | P.PNPL_ITS ---
Subjective Subjective Date of Service: 04/04/20 Interval history: The patient was seen on exam. Overall doing a little better. Oxygen has been decreasing now to 8 L nasal cannula. Eating some breakfast this morning. He did receive the convalescent plasma 1 unit last night. Which still waiting for his IgG levels. His IgG levels are low could also consider IVIG. Objective Data Labs CBC & Chem 7: 04/02/20 05:53 04/02/20 05:52 Labs: Laboratory Results - last 24 hr 04/02/20 04/04/20 15:12 05:22 PT 39.0 H D INR 3.2 H Blood Type A Positive Antibody Screen NEGATIVE Microbiology Microbiology Results: Microbiology 04/01/20 06:18 Blood - Venous Blood Culture - Preliminary No growth after 48 hours. 04/01/20 05:54 Blood - Venous Blood Culture - Preliminary No growth after 48 hours. Review of Systems Constitutional: Denies night sweats Denies change in voice, Denies mouth pain, Reports nasal congestion and Reports nasal discharge Cardiovascular: Denies chest pain and Reports dyspnea on exertion Respiratory: Reports cough and Reports dyspnea on exertion Gastrointestinal: Denies abdominal pain Musculoskeletal: Denies no additional musculoskeletal complaints Psychiatric: Denies no additional psychiatric complaints Hematologic/Lymphatic: Denies easy bleeding and Denies lymphadenopathy Physical Exam Vital Signs: Vital Signs: Last Vital Signs Temp 97.9 F 04/04/20 08:00 Pulse 87 04/04/20 08:00 Resp 20 04/04/20 08:00 BP 159/71 H 04/04/20 08:00 Pulse Ox 98 04/04/20 08:00 Body Mass Index 35.9 Const: General: alert Neck: Neck: Yes normal visual inspection, Yes full ROM and Yes no lymphadenopathy Chest: Chest palpation & inspection: normal inspection of the chest Resp: Auscultation: diminished lung sounds Cardio: Rate: regular rate Rhythm: regular rhythm Heart sounds: S1 normal heart sound present and S2 normal heart sound present GI: Palpation (GI): Soft to palpation and nontender Auscultation: normal bowel sounds Assessment and Plan Assessment and plan (1) Pneumonia: Status: Acute (2) Acute respiratory failure with hypoxia: Status: Acute (3) COVID-19 virus infection: Problem details: H Status: Acute (4) Hypogammaglobulinemia: Status: Acute Assessment and Plan: Continue oxygen supplementation to maintain a pulse ox above 90% Completing Remdisivir Status post convalescent plasma x1 unit Continue Decadron Complete 8 days of antibiotics. Out of bed to chair Awaiting IgG levels, if low she received 40 g of Flebogamma Time Spent With Patient Time: Total time spent is greater than 50% in coordination of care (as document ed) at patient's floor/unit and/or counseling patient: Time with patient: 15 - 24 minutes
--- NOTE | 2020-04-04 11:36 | MHC.CM.PN ---
Patient is on IV Ceftriaxone for +UTI. Also on 8 liters O2 via [place], IV Decadron and IV Remdesivir for +COVID. Discharge plan is home with resumption of [employer] services with [place] who will also provide transport. CM will continue to follow patient for discharge needs.
[2020-04-04] MEDS: cefTRIAXone sodium 1 GM in 0.9 % Sodium Chloride 50 ML IV (12:51)
[2020-04-04 13:58] LABS: Immunoglobulin G 494 mg/dL (600-1540)
[2020-04-04] MEDS: Acetaminophen Supp 650 MG SUPP.RECT PR (15:51)
--- NOTE | 2020-04-04 16:06 | HO.PM.IMPN ---
Subjective Subjective Date of Service: 04/04/20 Interval History: Patient seen and examined at bedside patient reported some improvement Constitutional Constitutional: Reports fatigue, Denies fever(s) and Reports weakness Eyes Eyes: Reports no additional eye complaints Cardiovascular Cardiovascular: Denies chest pain and Reports dyspnea Respiratory Respiratory: Reports cough and Reports dyspnea Gastrointestinal Gastrointestinal: Denies vomiting Musculoskeletal Musculoskeletal: Reports no additional musculoskeletal complaints Neurologic Neurologic: Denies focal weakness and Reports weakness Endocrine Endocrine: Reports fatigue Physical Exam Vital Signs: Vital Signs: Last Vital Signs Temp 97.4 F 04/04/20 15:50 Pulse 79 04/04/20 15:50 Resp 16 04/04/20 15:50 BP 144/75 H 04/04/20 15:50 Pulse Ox 96 04/04/20 15:50 Body Mass Index 35.9 Const: General: no acute distress and tired appearing Orientation/consciousness: patient oriented x3 Eyes: General: appearance normal, both eyes and all related structures Neck: Neck: Yes normal visual inspection Resp: Effort & Inspection: Actively coughing Auscultation: wheezes Cardio: Jugular venous distension: no JVD Heart sounds: S1 normal heart sound present and S2 normal heart sound present GI: Inspection: Yes normal to inspection Auscultation: normal bowel sounds Skin: General skin exam: no rashes or lesions noted Neuro: General: patient oriented x3 Motor exam (neuro): 5/5 motor strength present throughout Objective Data Current Medications Generic Name Dose Route Start Last Admin Trade Name Freq PRN Reason Stop Dose Admin Acetaminophen 650 mg 04/01/20 18:29 04/04/20 15:51 Acetaminophen Supp 650 Mg Supp.Rect NV 650 mg Q6H PRN Administration Fever Albuterol Sulfate 2 puff 04/01/20 11:15 Albuterol Sulfate 90 Mcg 8 Gm Inhaler INHALE RQ4H PRN Dyspnea Atorvastatin Calcium 80 mg 04/02/20 21:00 04/03/20 20:56 Atorvastatin Calcium 80 Mg Tablet PO 80 mg BEDTIME DEEPAK Administration Carvedilol 25 mg 04/01/20 11:15 04/01/20 12:00 Carvedilol 25 Mg Tablet PO 25 mg BID DEEPAK Administration Protocol Dexamethasone Sodium Phosphate 6 mg 04/02/20 09:00 04/04/20 08:28 Dexamethasone Sod Phosphate 4 Mg/Ml Vial IVPUSH 6 mg DAILY DEEPAK Administration Docusate Sodium 100 mg 04/02/20 09:00 04/04/20 08:28 Docusate Sodium 100 Mg Capsule PO 100 mg DAILY DEEPAK Administration Doxycycline Hyclate 100 mg 04/01/20 20:00 04/04/20 08:28 Doxycycline Hyclate 100 Mg Tablet PO 100 mg Q12H DEEPAK Administration Fluticasone/Vilanterol 1 puff 04/02/20 08:00 04/04/20 07:21 Fluticasone/Vilanterol 100/25 Blst.W.Dev INHALE 1 puff RDAILY DEEPAK Administration Ceftriaxone Sodium 1 gm/ 50 mls @ 100 mls/hr 04/01/20 12:00 04/04/20 13:28 Sodium Chloride IV Infused Q24H DEEPAK Infusion Remdesivir 100 mg/ Sodium 230 mls @ 115 mls/hr 04/03/20 18:00 04/03/20 20:56 Chloride IV 04/06/20 19:59 Infused Q24H DEEPAK Infusion Losartan Potassium 100 mg 04/01/20 11:15 04/01/20 12:00 Losartan Potassium 50 Mg Tablet PO 100 mg DAILY DEEPAK Administration Protocol Multivitamins/Minerals 1 tab 04/02/20 09:00 04/04/20 08:28 Multivitamin With Minerals Tablet PO 1 tab DAILY DEEPAK Administration Sodium Chloride 3 ml 04/01/20 16:00 04/04/20 15:52 0.9 % Sodium Chloride Flush 3 Ml Syringe IVFLUSH 3 ml QSHIFT DEEPAK Administration Tamsulosin HCl 0.4 mg 04/01/20 11:15 04/01/20 12:00 Tamsulosin Hcl 0.4 Mg Capsule PO 0.4 mg DAILY DEEPAK Administration Verapamil HCl 180 mg 04/01/20 11:15 04/04/20 08:28 Verapamil Hcl Sr 180 Mg Tablet.Er PO 180 mg DAILY DEEPAK Administration Protocol Labs CBC & Chem 7: 04/02/20 05:53 04/02/20 05:52 Microbiology Microbiology Results: Microbiology 04/01/20 06:18 Blood - Venous Blood Culture - Preliminary No growth after 48 hours. 04/01/20 05:54 Blood - Venous Blood Culture - Preliminary No growth after 48 hours. Assessment and Plan (1) COVID-19 virus infection: Problem details: H Status: Acute (2) Acute exacerbation of chronic obstructive pulmonary disease (COPD): Status: Acute (3) GERD with esophagitis: Status: Acute (4) CHF (congestive heart failure): Status: Acute (5) Urinary incontinence: Status: Acute (6) Obstructive sleep apnea: Problem details: Cannot tolerate CPAP. Status: Acute (7) BPH (benign prostatic hyperplasia): Problem details: Laser Dr. Alegria 11/2017 Status: Acute (8) Paroxysmal atrial fibrillation: Status: Acute (9) Anxiety and depression: Status: Acute (10) Hypertension: Status: Acute Assessment and Plan: 84-year-old male presented with shortness of breath and cough for last 4- 5 days found to be hypoxic and COVID positive, chest x-ray shows bilateral infiltrates Acute hypoxic respiratory failure secondary to COVID pneumonia weaned down from high-flow to 8 L of Oxy Continue dexamethasone Continue supportive management continue Rocephin and doxycycline Continue oxygen supplementation Continue isolation COPD with exacerbation Continue Breo Continue albuterol as needed Continue steroid Hypokalemia replaced Monitor potassium Hypercholesterolemia: Continue statin Hypertension: continue with carvedilol continue with chlorthalidone continue with losartan continue with verapamil CHF not in exacerbation continue with lasix GERD Continue PPI BPH continue with flomax home dose Paroxysmal atrial fibrillation: Continue Coreg Continue verapamil Hold Coumadin given INR supratherapeutic 3.2 DVT prophylax INR supratherapeutic hold Coumadin
[2020-04-04] MEDS: Remdesivir 100 MG in 0.9 % Sodium Chloride 230 ML 115 MG IV (18:12)
[2020-04-04] MEDS: carvediloL 25 MG TABLET PO (20:18)
[2020-04-04] MEDS: Atorvastatin Calcium 80 MG TABLET PO (20:19)
[2020-04-05] VITALS (11 sets, daily range): BP systolic 93–174; BP diastolic 59–79; PULSE 50–102; RESP 13–20; TEMP 35.1–36.8; O2SAT 90–99
[2020-04-05] MEDS: 0.9 % Sodium Chloride Flush 3 ML SYRINGE IVFLUSH ×3 (00:05→23:50)
[2020-04-05] MEDS: guaiFENesin DM 100/10/5 ML 5 ML SYRUP PO ×2 (04:45→11:48)
[2020-04-05 07:11] LABS: INTERNATIONAL NORM RATIO 3.5 (0.9-1.1); Prothrombin Time 41.6 SEC (10.8-13.0)
[2020-04-05] MEDS: Fluticasone/Vilanterol 100/25 BLST.W.DEV 1 PUFF INHALE (07:43)
--- NOTE | 2020-04-05 09:31 | PM.PNPUL ---
Subjective Subjective Date of Service: 04/05/20 Interval history: The patient was seen on exam. Oxygen requirements are going down. He is IgG is critically low. The patient did respond well to the convalescent plasma. At this point based on his or respiratory failure, extensive pneumonia the patient will benefit from IVIG. I did submit a request to the pharmacy. The patient appears to be more confused today. Seems to be delirious. Objective Data Labs CBC & Chem 7: 04/02/20 05:53 04/02/20 05:52 Labs: Laboratory Results - last 24 hr 04/03/20 04/05/20 09:40 06:23 PT 41.6 H INR 3.5 H IgG 494 L Microbiology Microbiology Results: Microbiology 04/01/20 06:18 Blood - Venous Blood Culture - Preliminary No growth after 48 hours. 04/01/20 05:54 Blood - Venous Blood Culture - Preliminary No growth after 48 hours. Review of Systems Constitutional: Denies night sweats Denies change in voice, Denies mouth pain, Reports nasal congestion and Reports nasal discharge Cardiovascular: Denies chest pain and Reports dyspnea on exertion Respiratory: Reports cough and Reports dyspnea on exertion Gastrointestinal: Denies abdominal pain Musculoskeletal: Denies no additional musculoskeletal complaints Reports confusion Psychiatric: Denies no additional psychiatric complaints and Reports confusion Hematologic/Lymphatic: Denies easy bleeding and Denies lymphadenopathy Physical Exam Vital Signs: Vital Signs: Last Vital Signs Temp 97.1 F 04/05/20 03:27 Pulse 102 H 04/05/20 07:29 Resp 20 04/05/20 07:29 BP 165/66 H 04/05/20 07:29 Pulse Ox 93 04/05/20 07:29 Body Mass Index 35.9 Const: General: confusion Orientation/consciousness: oriented to person, No oriented to place and confusion HENMT: General nose exam: Abnormal external nose present and Nasal discharge present Neck: Neck: Yes normal visual inspection, Yes full ROM and Yes no lymphadenopathy Chest: Chest palpation & inspection: normal inspection of the chest Resp: Auscultation: diminished lung sounds Cardio: Rate: regular rate Rhythm: regular rhythm Heart sounds: S1 normal heart sound present and S2 normal heart sound present GI: Palpation (GI): Soft to palpation and nontender Auscultation: normal bowel sounds Neuro: General: oriented to person, No oriented to place and confusion Assessment and Plan Assessment and plan (1) Hypogammaglobulinemia: Status: Acute (2) Pneumonia: Status: Acute (3) Acute respiratory failure with hypoxia: Status: Acute (4) COVID-19 virus infection: Problem details: H Status: Acute (5) Confusion: Status: Acute Assessment and Plan: IVIG Decrease steroids if the patient continues to be confused Continue oxygen requirements to maintain a pulse ox above 90% Time Spent With Patient Time: Total time spent is greater than 50% in coordination of care (as documented) at patient's floor/unit and/or counseling patient: Time with patient: 15 - 24 minutes
[2020-04-05] MEDS: dexAMETHasone sod phosphate 4 MG/ML VIAL 6 MG IVPUSH (09:40)
[2020-04-05] MEDS: Docusate Sodium 100 MG CAPSULE PO (09:41)
[2020-04-05] MEDS: Losartan Potassium 50 MG TABLET 100 MG PO (09:41)
[2020-04-05] MEDS: VerapamiL HCL SR 180 MG TABLET.ER PO (09:41)
[2020-04-05] MEDS: carvediloL 25 MG TABLET PO (09:41)
[2020-04-05] MEDS: Acetaminophen 325 MG TABLET 650 MG PO (10:29)
[2020-04-05] MEDS: diphenhydrAMINE HCL 50 MG/ML VIAL 25 MG IVPUSH (10:30)
[2020-04-05] MEDS: LORazepam 2 MG/ML VIAL 0.5 MG IVPUSH ×2 (11:36→15:08)
--- NOTE | 2020-04-05 11:42 | PC.NURSE ---
pt has been very confused and agitated today. He has removed monitor, attempted to exit, and tried to pull out his central line. He needed frequent redirection from staff. He was medicated for agitation with little improvement. Pt currently has sitter at bedside and continues to attempt to manipulate monitors, wires and tubing
[2020-04-05] MEDS: cefTRIAXone sodium 1 GM in 0.9 % Sodium Chloride 50 ML IV (13:10)
--- NOTE | 2020-04-05 13:40 | HO.PM.IMPN ---
Subjective Subjective Date of Service: 04/05/20 Interval History: Patient seen and examined at bedside patient reported shortness of breath patient was confused today Constitutional Constitutional: Reports fatigue, Denies fever(s) and Reports weakness Eyes Eyes: Reports no additional eye complaints Cardiovascular Cardiovascular: Denies chest pain and Reports dyspnea Respiratory Respiratory: Reports cough and Reports dyspnea Gastrointestinal Gastrointestinal: Denies vomiting Musculoskeletal Musculoskeletal: Reports no additional musculoskeletal complaints Neurologic Neurologic: Denies focal weakness and Reports weakness Endocrine Endocrine: Reports fatigue Physical Exam Vital Signs: Vital Signs: Last Vital Signs Temp 98.2 F 04/05/20 11:11 Pulse 82 04/05/20 11:11 Resp 18 04/05/20 11:11 BP 143/59 H 04/05/20 11:11 Pulse Ox 93 04/05/20 11:11 Body Mass Index 35.9 Const: General: no acute distress and tired appearing Orientation/consciousness: patient oriented x3 Eyes: General: appearance normal, both eyes and all related structures Neck: Neck: Yes normal visual inspection Resp: Effort & Inspection: Actively coughing Auscultation: wheezes Cardio: Jugular venous distension: no JVD Heart sounds: S1 normal heart sound present and S2 normal heart sound present GI: Inspection: Yes normal to inspection Auscultation: normal bowel sounds Skin: General skin exam: no rashes or lesions noted Neuro: General: patient oriented x3 Motor exam (neuro): 5/5 motor strength present throughout Objective Data Current Medications Generic Name Dose Route Start Last Admin Trade Name Freq PRN Reason Stop Dose Admin Acetaminophen 650 mg 04/01/20 18:29 04/04/20 15:51 Acetaminophen Supp 650 Mg Supp.Rect IN 650 mg Q6H PRN Administration Fever Albuterol Sulfate 2 puff 04/01/20 11:15 Albuterol Sulfate 90 Mcg 8 Gm Inhaler INHALE RQ4H PRN Dyspnea Atorvastatin Calcium 80 mg 04/02/20 21:00 04/04/20 20:19 Atorvastatin Calcium 80 Mg Tablet PO 80 mg BEDTIME DEEPAK Administration Carvedilol 25 mg 04/01/20 11:15 04/05/20 09:41 Carvedilol 25 Mg Tablet PO 25 mg BID DEEPAK Administration Protocol Dexamethasone Sodium Phosphate 6 mg 04/02/20 09:00 04/05/20 09:40 Dexamethasone Sod Phosphate 4 Mg/Ml Vial IVPUSH 6 mg DAILY DEEPAK Administration Diphenhydramine HCl 25 mg 04/05/20 10:30 04/05/20 10:30 Diphenhydramine Hcl 50 Mg/Ml Vial IVPUSH 25 mg ONCE DEEPAK Administration Docusate Sodium 100 mg 04/02/20 09:00 04/05/20 09:41 Docusate Sodium 100 Mg Capsule PO 100 mg DAILY DEEPAK Administration Doxycycline Hyclate 100 mg 04/01/20 20:00 04/05/20 09:42 Doxycycline Hyclate 100 Mg Tablet PO 100 mg Q12H DEEPAK Administration Fluticasone/Vilanterol 1 puff 04/02/20 08:00 04/05/20 07:43 Fluticasone/Vilanterol 100/25 Blst.W.Dev INHALE 1 puff RDAILY DEEPAK Administration Guaifenesin/Dextromethorphan 5 ml 04/05/20 02:53 04/05/20 11:48 Guaifenesin Dm 100/10/5 Ml 5 Ml Syrup PO 5 ml Q6H PRN Administration Cough Ceftriaxone Sodium 1 gm/ 50 mls @ 100 mls/hr 04/01/20 12:00 04/05/20 13:10 Sodium Chloride IV 100 mls/hr Q24H DEEPAK Administration Remdesivir 100 mg/ Sodium 230 mls @ 115 mls/hr 04/03/20 18:00 04/04/20 20:23 Chloride IV 04/06/20 19:59 Infused Q24H DEEPAK Infusion Immune Globulin 20 gm in 200 mls @ 50 mls/hr 04/05/20 11:00 04/05/20 11:30 Flebogamma 10% IV 50 mls/hr ONCE@1100 DEEPAK Administration As Directed Immune Globulin 20 gm in 200 mls @ 50 mls/hr 04/05/20 15:00 Flebogamma 10% IV 04/05/20 18:59 ONCE@1500 ONE As Directed Losartan Potassium 100 mg 04/01/20 11:15 04/05/20 09:41 Losartan Potassium 50 Mg Tablet PO 100 mg DAILY DEEPAK Administration Protocol Multivitamins/Minerals 1 tab 04/02/20 09:00 04/05/20 09:41 Multivitamin With Minerals Tablet PO 1 tab DAILY DEEPAK Administration Sodium Chloride 3 ml 04/01/20 16:00 04/05/20 08:22 0.9 % Sodium Chloride Flush 3 Ml Syringe IVFLUSH 3 ml QSHIFT DEEPAK Administration Tamsulosin HCl 0.4 mg 04/01/20 11:15 04/01/20 12:00 Tamsulosin Hcl 0.4 Mg Capsule PO 0.4 mg DAILY DEEPAK Administration Verapamil HCl 180 mg 04/01/20 11:15 04/05/20 09:41 Verapamil Hcl Sr 180 Mg Tablet.Er PO 180 mg DAILY DEEPAK Administration Protocol Labs CBC & Chem 7: 04/02/20 05:53 04/02/20 05:52 Microbiology Microbiology Results: Microbiology 04/01/20 06:18 Blood - Venous Blood Culture - Preliminary No growth after 48 hours. 04/01/20 05:54 Blood - Venous Blood Culture - Preliminary No growth after 48 hours. Assessment and Plan (1) COVID-19 virus infection: Problem details: H Status: Acute (2) Acute exacerbation of chronic obstructive pulmonary disease (COPD): Status: Acute (3) GERD with esophagitis: Status: Acute (4) CHF (congestive heart failure): Status: Acute (5) Urinary incontinence: Status: Acute (6) Obstructive sleep apnea: Problem details: Cannot tolerate CPAP. Status: Acute (7) BPH (benign prostatic hyperplasia): Problem details: Laser Dr. Alegria 11/2017 Status: Acute (8) Paroxysmal atrial fibrillation: Status: Acute (9) Anxiety and depression: Status: Acute (10) Hypertension: Status: Acute Assessment and Plan: 84-year-old male presented with shortness of breath and cough for last 4- 5 days found to be hypoxic and COVID positive, chest x-ray shows bilateral infiltrates Acute hypoxic respiratory failure secondary to COVID pneumonia currently requiring 8 L of oxygen Continue dexamethasone Continue supportive management continue Rocephin and doxycycline Continue oxygen supplementation Continue isolation toxic metabolic encephalopathy likely secondary to hypoxia and COVID pneumonia patient is more confused today monitor mental status COPD with exacerbation Continue Breo Continue albuterol as needed Continue steroid Hypokalemia replaced Monitor potassium Hypercholesterolemia: Continue statin Hypertension: continue with carvedilol continue with chlorthalidone continue with losartan continue with verapamil CHF not in exacerbation continue with lasix GERD Continue PPI BPH continue with flomax home dose Paroxysmal atrial fibrillation: Continue Coreg Continue verapamil Hold Coumadin given INR supratherapeutic 3.2 DVT prophylax INR supratherapeutic hold Coumadin
[2020-04-05 14:17] LABS: MANUAL DIFF FLAG NO
[2020-04-05 14:19] LABS: Basophils Percent Auto 0.1 % (0-2); Hematocrit 35.2 % (42-52); Hemoglobin 11.5 g/dl (14.0-18.0); Imm Gran Abs Auto 0.19 X10*3/uL (0.00-0.03); Imm Gran Pct Auto 1.2 % (0.0-0.4); Lymphocytes Absolute Auto 1.1 X10*3/uL (1.2-4.9); Lymphocytes Percent Auto 6.7 % (20-40); Mean Corpuscular HGB Conc 32.7 g/dl (31.0-36.0); Mean Corpuscular Hemoglobin 28.7 pg (27.0-33.0); Mean Corpuscular Volume 87.8 fL (80-98); Mean Platelet Volume 10.3 fL (9.4-12.4); Monocytes Absolute Auto 0.5 X10*3/uL (0.1-1.2); NRBC Pct Auto 0.3 /100WBC (0.0-0.2); Neutrophils Absolute Auto 14.2 X10*3/uL (2.0-8.3); Platelet Count 162 X10*3/uL (160-400); Red Blood Count 4.01 X10*6/uL (4.60-5.80); Red Cell Distribution Width 16.5 % (11.0-16.0); White Blood Count 15.9 X10*3/uL (4.8-10.8)
--- NOTE | 2020-04-05 14:30 | ECG_ITS ---
Test Reason : QTC CHECK Blood Pressure : / mmHG Vent. Rate : 082 BPM Atrial Rate : 082 BPM P-R Int : 224 ms QRS Dur : 122 ms QT Int : 438 ms P-R-T Axes : 108 006 -52 degrees QTc Int : 511 ms Sinus rhythm with 1st degree A-V block Right bundle branch block Possible Lateral infarct (cited on or before 05-APR-2020) Abnormal ECG When compared with ECG of 05-APR-2020 14:50, ST no longer depressed in Anterior leads Nonspecific T wave abnormality, improved in Lateral leads Referred By: [place] Electronically Signed By: DEON DALAL MD MTDD
[2020-04-05 14:42] LABS: Anion Gap 18 (12-20); Blood Urea Nitrogen 46 mg/dL (9-16); Calcium 8.1 mg/dL (8.4-10.2); Carbon Dioxide 23 mmol/L (22-29); Chloride 109 mmol/L (96-108); Creatinine Clr Calc Pharmacy 44.4; Estimated Glomerular Filt Rate 57; Glucose Random 135 mg/dL (60-115); Potassium 4.2 mmol/L (3.3-5.1); Sodium 146 mmol/L (135-145)
[2020-04-05 17:22] LABS: Pt Ventilation O2% 5 L
--- NOTE | 2020-04-05 17:37 | PM.EVENT ---
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
[2020-04-05 17:43] LABS: ABG PCO2 30 mmHg (32-45); Base Excess ABG -3.5; HCO3 ABG 19 mmol/L (22-26); PO2 ABG 61 mmHg (83-108); pH ABG 7.41 (7.35-7.45)
[2020-04-05 17:45] LABS: Base Excess VBG -1.5 mmol/L; HCO3 VBG 23 mmol/L; PCO2 VBG 38 mmHg; PO2 VBG 42 mmHg; pH VBG 7.38 (7.32-7.43)
[2020-04-05 18:09] LABS: Alanine Aminotransferase 46 U/L (0-40); Alkaline Phosphatase 82 U/L (39-117); Aspartate Amino Transferase 50 U/L (5-37); Bilirubin Direct 0.2 mg/dL (0.0-0.5); Bilirubin Total 0.3 mg/dL (0.0-1.0); Total Protein 6.1 g/dL (6.5-8.0)
--- NOTE | 2020-04-05 18:21 | P.CONCC_ITS ---
History of Present Illness Data of Consult Service Date: 04/05/20 Requesting physician: [place] Primary Care Provider: Unknown Physician HPI Reason for consult: Altered mental status/agitated delirium 84-year-old male with with morbid obesity type 2 diabetes and hypertension obstructive sleep apnea admitted with bilateral COVID-19 pneumonitis and ARDS developing progressive acute on chronic hypercarbic and hypoxic respiratory failure and today developed progressive agitated delirium and while waiting for blood gas could no longer delay and presented to the ICU for emergent intubation which went without complication Subsequent to intubation for his mental status we noted that the blood gas came back and did not reflect an elevated pCO2 so this was not an an acute hypercarbic respiratory failure so presumably there was another toxic mechanism and could veno this could easily be the no as and encephalitis related to COVID but unfortunately we cannot access cerebrospinal fluid because of elevated INR He supposedly has a background of CHF and when looking at his CT scan given the extensive parenchymal involvement very difficult to rule out co associated pulmonary edema but INR is modest for man his age diminishing that likelihood but until the CVP is up I did bedside echo showing marked concentric left ventricular hypertrophy with small LV cavity but preserved systolic ejection fraction and no pericardial or primary valve disease at the very least 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 and possibly secondary to hypertension but he will have diastolic dysfunction so it CVP arbitrarily is greater than 8 I would withhold IV fluids Review of Systems Review of Systems: Yes Unobtainable due to mental status PMFSH Past Medical History Medical History (Updated 04/06/20 @ 11:50 by Daisy Vicente MD) Anemia Anxiety and depression BPH (benign prostatic hyperplasia) Chronic abdominal pain COPD (chronic obstructive pulmonary disease) GERD (gastroesophageal reflux disease) History of CVA (cerebrovascular accident) History of rib fracture Hypercholesterolemia Hypertension Hypogammaglobulinemia Obesity (BMI 30-39.9) Obstructive sleep apnea Paroxysmal atrial fibrillation Peripheral vascular disease Protrusion of lumbar intervertebral disc Family History Family History Father No problems noted. Mother Hx of type 1 diabetes mellitus Family history: reviewed and not pertinent Surgical History Surgical History History of left knee replacement History of tonsillectomy History of total right hip replacement History of transurethral resection of prostate Social History Social History Household Members: Spouse Housing: Apartment Do you presently have visiting nurse or other home services: No Alcohol intake: never Smoking Status: Former smoker Tobacco Type: Cigarette Years Smoked: 30 yrs ago Smoked in Last 30 Days: No Patient Interested in Nicotine Replacement: No Patient Given Instructions on How to Stop Smoking: Yes Date Education Initiated: 04/02/20 Second Hand Smoke Exposure: No Use of substances other than those prescribed or required for medical reasons: No Currently Displaying Signs/Symptoms of Drug Intoxication Withdrawal: No Any prior treatment program specific to substance use: No Have you been hit, kicked, punched, or otherwise hurt by someone within the past year? 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 GIPSON ezetimibe [From Zetia] Allergy Mild ANAPHYLAXIS Verified 03/13/20 14:22 apixaban [From ELIQUIS] Allergy Unknown UNKNOWN, Verified 03/13/20 14:22 rash atorvastatin [From LIPITOR] Allergy Unknown UNKNOWN Verified 03/13/20 14:22 rosuvastatin [Crestor] Allergy Unknown myalgia Verified 03/13/20 14:22 Active Medications: Current Medications Generic Name Dose Route Start Last Admin Trade Name Freq PRN Reason Stop Dose Admin Acetaminophen 650 mg 04/01/20 18:29 04/04/20 15:51 Acetaminophen Supp 650 Mg Supp.Rect AL 650 mg Q6H PRN Administration Fever Albuterol Sulfate 2 puff 04/01/20 11:15 Albuterol Sulfate 90 Mcg 8 Gm Inhaler INHALE RQ4H PRN Dyspnea Atorvastatin Calcium 80 mg 04/02/20 21:00 04/04/20 20:19 Atorvastatin Calcium 80 Mg Tablet PO 80 mg BEDTIME DEEPAK Administration Carvedilol 25 mg 04/01/20 11:15 04/05/20 09:41 Carvedilol 25 Mg Tablet PO 25 mg BID DEEPAK Administration Protocol Dexamethasone Sodium Phosphate 6 mg 04/02/20 09:00 04/05/20 09:40 Dexamethasone Sod Phosphate 4 Mg/Ml Vial IVPUSH 6 mg DAILY DEEPAK Administration Diphenhydramine HCl 25 mg 04/05/20 10:30 04/05/20 10:30 Diphenhydramine Hcl 50 Mg/Ml Vial IVPUSH 25 mg ONCE DEEPAK Administration Docusate Sodium 100 mg 04/02/20 09:00 04/05/20 09:41 Docusate Sodium 100 Mg Capsule PO 100 mg DAILY DEEPAK Administration Doxycycline Hyclate 100 mg 04/01/20 20:00 04/05/20 09:42 Doxycycline Hyclate 100 Mg Tablet PO 100 mg Q12H DEEPAK Administration Fluticasone/Vilanterol 1 puff 04/02/20 08:00 04/05/20 07:43 Fluticasone/Vilanterol 100/25 Blst.W.Dev INHALE 1 puff RDAILY DEEPAK Administration Guaifenesin/Dextromethorphan 5 ml 04/05/20 02:53 04/05/20 11:48 Guaifenesin Dm 100/10/5 Ml 5 Ml Syrup PO 5 ml Q6H PRN Administration Cough Ceftriaxone Sodium 1 gm/ 50 mls @ 100 mls/hr 04/01/20 12:00 04/05/20 14:29 Sodium Chloride IV Infused Q24H DEEPAK Infusion Immune Globulin 20 gm in 200 mls @ 50 mls/hr 04/05/20 15:00 04/05/20 15:10 Flebogamma 10% IV 04/05/20 18:59 50 mls/hr ONCE@1500 ONE Administration As Directed Losartan Potassium 100 mg 04/01/20 11:15 04/05/20 09:41 Losartan Potassium 50 Mg Tablet PO 100 mg DAILY DEEPAK Administration Protocol Multivitamins/Minerals 1 tab 04/02/20 09:00 04/05/20 09:41 Multivitamin With Minerals Tablet PO 1 tab DAILY DEEPAK Administration Sodium Chloride 3 ml 04/01/20 16:00 04/05/20 15:21 0.9 % Sodium Chloride Flush 3 Ml Syringe IVFLUSH Not Given QSHIFT [facility] Tamsulosin HCl 0.4 mg 04/01/20 11:15 04/01/20 12:00 Tamsulosin Hcl 0.4 Mg Capsule PO 0.4 mg DAILY DEEPAK Administration Verapamil HCl 180 mg 04/01/20 11:15 04/05/20 09:41 Verapamil Hcl Sr 180 Mg Tablet.Er PO 180 mg DAILY DEEPAK Administration Protocol Home Medications Medication Instructions Recorded Confirmed Last Taken Type albuterol sulfate 90 mcg/actuation 2 puff INHALATION Q4-6H PRN 12/15/19 03/16/20 03/31/20 History aerosol inhaler atorvastatin 80 mg tablet 80 mg PO DAILY 12/15/19 04/01/20 03/31/20 History carvedilol 25 mg tablet 25 mg PO BID 12/15/19 04/01/20 03/31/20 History warfarin 2.5 mg PO SUTUWETHSA@1800 02/08/20 03/16/20 Unknown History warfarin 5 mg PO MOWEFR@1800 02/08/20 03/16/20 03/31/20 History Physical Exam Vital Signs: Vital Signs: Last Vital Signs Temp 98.2 F 04/05/20 11:11 Pulse 71 04/05/20 16:00 Resp 20 04/05/20 16:00 BP 143/59 H 04/05/20 11:11 Pulse Ox 98 04/05/20 16:00 Body Mass Index 35.9 On physical exam he had no new cognitive function and was clearly agitated but on vital signs was not hypoxic Skin was intact with no edema no acrocyanosis no wounds no rash Neurological pupils were equal and reactive to light and he had negative Babinski's Abdomen soft with no organomegaly and good bowel sounds Chest with scattered bilateral expiratory wheezing with diaphragmatic effort and scattered rales Results Labs CBC & Chem 7: 04/06/20 05:16 04/06/20 05:16 Labs: Short CBC 04/05/20 Range/Units 14:02 WBC 15.9 H (4.8-10.8) X10*3/uL Hgb 11.5 L (14.0-18.0) g/dl Hct 35.2 L (42-52) % Plt Count 162 D (160-400) X10*3/uL BMP 04/05/20 14:02 Sodium 146 H Potassium 4.2 Chloride 109 H Carbon Dioxide 23 BUN 46 H Creatinine 1.22 Calcium 8.1 L D Liver Function 04/05/20 Range/Units 14:02 Total Bilirubin 0.3 (0.0-1.0) mg/dL Direct Bilirubin 0.2 (0.0-0.5) mg/dL AST 50 H (5-37) U/L ALT 46 H (0-40) U/L Alkaline Phosphatase 82 (39-117) U/L Albumin 3.0 L (3.5-5.0) g/dL Microbiology Microbiology Results: Microbiology 04/01/20 06:18 Blood - Venous Blood Culture - Preliminary No growth after 48 hours. 04/01/20 05:54 Blood - Venous Blood Culture - Preliminary No growth after 48 hours. Assessment and Plan (1) Confusion: Status: Acute (2) Acute respiratory failure with hypoxia: Status: Acute (3) Hypogammaglobulinemia: Status: Acute (4) Pneumonia: Status: Acute (5) COVID-19 virus infection: Problem details: H Status: Acute (6) Acute exacerbation of chronic obstructive pulmonary disease (COPD): Status: Acute (7) Headache: Status: Acute (8) Anemia: Status: Acute (9) Polyarthralgia: Status: Acute (10) Diverticulitis: Status: Acute (11) Constipation: Status: Acute (12) Peripheral neuropathy: Status: Acute (13) CHF (congestive heart failure): Qualifiers: Heart failure type: diastolic Heart failure chronicity: chronic Qualified Code(s): I50.32 - Chronic diastolic (congestive) heart failure Status: Acute (14) GERD with esophagitis: Qualifiers: Esophagitis bleeding: without hemorrhage Qualified Code(s): K21.00 - Gastro-esophageal reflux disease with esophagitis, without bleeding Status: Acute (15) Chronic abdominal pain: Status: Acute (16) Frequency of micturition: Status: Acute (17) GERD (gastroesophageal reflux disease): Status: Acute (18) Obstructive sleep apnea: Problem details: Cannot tolerate CPAP. Status: Acute (19) BPH (benign prostatic hyperplasia): Qualifiers: Lower urinary tract symptom presence: symptoms present Lower urinary tract symptom detail: urinary frequency Qualified Code(s): N40.1 - Benign prostatic hyperplasia with lower urinary tract symptoms; R35.0 - Frequency of micturition Problem details: Dora Alegria 11/2017 Status: Acute (20) Paroxysmal atrial fibrillation: Status: Acute (21) COPD (chronic obstructive pulmonary disease): Qualifiers: COPD type: emphysema Emphysema type: unspecified Qualified Code(s): J43.9 - Emphysema, unspecified Status: Acute (22) Obesity (BMI 30-39.9): Status: Acute (23) Hypercholesterolemia: Status: Acute (24) Hypertension: Qualifiers: Hypertension type: essential hypertension Qualified Code(s): I10 - Essential (primary) hypertension Status: Acute (25) Current use of anticoagulant therapy: Status: Acute (26) ARDS (adult respiratory distress syndrome): Status: Acute (27) Diastolic CHF, acute on chronic: Status: Acute (28) Delirium: Status: Acute The plan is to maintain ventilator and sedation for now while actively delirious and this will help protect his airway as well in case aspiration might have contributed and treat his hemodynamics fluid management via CVP readings and frequently test cognitive function by weaning his medication and assessing with a strip catcher in the room The thinking of a MRI with gadolinium to look for signs of a in cephalo meningeal inflammation
--- NOTE | 2020-04-05 18:24 | W.PM.CCHP ---
Procedures Intubation Intubation Comments: Progressive delirium in the face of acute hypoxic and hypercarbic respiratory failure from COVID-19 ARDS and underwent emergent intubation using a 8. ET tube and glide scope ultrasound guidance with easy visualization of the vocal cords and very rapid uncomplicated intubation with confirmation by end-tidal CO2 ultimately chest x-ray showing with 24 cm at the lip that the tip was of just above the solitario no evidence of barotrauma Consent for Procedure: Emergent-no informed consent obtained Time out performed: Yes Sedative: propofol Paralytic: rocuronium Laryngoscope: fiber optic video scope ET tube size: 8 ET tube uncuffed: No Tube secured depth (cm): 24 Tube secured location: lips Tube placement confirmation: visualized tube passing through cords, equal breath sounds bilaterally, no breath sounds over epigastrium and confirmation by capnometry Patient tolerated procedure: well and no complications Intubation complications: none
[2020-04-05] MEDS: Rocuronium Bromide 50 MG/5 ML VIAL 40 MG IVPUSH (19:19)
--- NOTE | 2020-04-05 19:24 | PC.NURSE ---
Patient IMC transfer to ICU at approximately 1800. Pt emergently intubated. OGT and central line placement verified by CXR. Propofol infusion started for sedation. Sigala catheter placed. Vitals stable. Patient continues on IVIG. Will continue to monitor.
[2020-04-05] MEDS: vancomycin HCL 1,000 MG in 0.9 % Sodium Chloride 250 ML 270 MG IV (20:43)
[2020-04-05 21:09] LABS: Lactic Acid 2.1 mmol/L (0.5-2.0)
[2020-04-05] MEDS: Midazolam HCl/NS 50 MG/50 ML PLAST..BAG IVCONT (22:19)
[2020-04-05 22:24] LABS: B Type Natriuretic Peptide 131 pg/mL (<100)
[2020-04-05] MEDS: propofoL 1,000 MG/100 ML VIAL 10.7 MG IVCONT (22:25)
[2020-04-05 22:33] LABS: Reflex Lactate? Lactic Acid Added
[2020-04-06] VITALS (30 sets, daily range): BP systolic 93–169; BP diastolic 49–72; PULSE 59–81; RESP 18–23; TEMP 35.4–37.1; O2SAT 92–98; BMI 35.9
[2020-04-06 00:07] LABS: ~Lactic Acid-LAB USE ONLY 1.1 mmol/L (0.5-2.0)
[2020-04-06] MEDS: Chlorhexidine Gluc Oral Rinse 15 ML MOUTHWASH BUCCAL ×3 (01:59→17:23)
[2020-04-06 05:27] LABS: MANUAL DIFF FLAG NO
[2020-04-06 05:30] LABS: pH VBG 7.47 (7.32-7.43)
[2020-04-06 05:31] LABS: HCO3 VBG 24 mmol/L; PCO2 VBG 32 mmHg; PO2 VBG 57 mmHg
[2020-04-06 05:35] LABS: Basophils Percent Auto 0.1 % (0-2); Hematocrit 31.3 % (42-52); Hemoglobin 10.2 g/dl (14.0-18.0); Imm Gran Abs Auto 0.14 X10*3/uL (0.00-0.03); Lymphocytes Absolute Auto 1.1 X10*3/uL (1.2-4.9); Lymphocytes Percent Auto 8.1 % (20-40); Mean Corpuscular HGB Conc 32.6 g/dl (31.0-36.0); Mean Corpuscular Hemoglobin 28.4 pg (27.0-33.0); Mean Corpuscular Volume 87.2 fL (80-98); Mean Platelet Volume 10.5 fL (9.4-12.4); Monocytes Absolute Auto 0.6 X10*3/uL (0.1-1.2); Monocytes Percent Auto 4.4 % (2-11); NRBC Pct Auto 0.2 /100WBC (0.0-0.2); Neutrophils Absolute Auto 11.7 X10*3/uL (2.0-8.3); Neutrophils Percent Auto 86.4 % (45-73); Platelet Count 185 X10*3/uL (160-400); Red Blood Count 3.59 X10*6/uL (4.60-5.80); Red Cell Distribution Width 16.2 % (11.0-16.0); White Blood Count 13.6 X10*3/uL (4.8-10.8)
[2020-04-06] MEDS: Pantoprazole Sodium 40 MG/10 ML VIAL IVPUSH (05:37)
[2020-04-06 05:52] LABS: INTERNATIONAL NORM RATIO 3.1 (0.9-1.1); Prothrombin Time 37.4 SEC (10.8-13.0)
[2020-04-06 05:54] LABS: Partial Thromboplastin Time 34.6 SEC (24.1-38.0)
[2020-04-06 06:01] LABS: B Type Natriuretic Peptide 153 pg/mL (<100)
[2020-04-06 06:09] LABS: Anion Gap 12 (12-20); Blood Urea Nitrogen 40 mg/dL (9-16); Calcium 7.6 mg/dL (8.4-10.2); Carbon Dioxide 24 mmol/L (22-29); Chloride 111 mmol/L (96-108); Creatinine Clr Calc Pharmacy 52.6; Estimated Glomerular Filt Rate > 60; Glucose Random 155 mg/dL (60-115); Lactate Dehydrogenase 608 U/L (118-273); Magnesium 1.9 mg/dL (1.6-2.6); Phosphorus 2.9 mg/dL (2.7-4.5); Potassium 3.4 mmol/L (3.3-5.1); Sodium 144 mmol/L (135-145)
[2020-04-06 06:20] LABS: TSH reflex Free T4 0.49 uIU/mL (0.32-4.0)
[2020-04-06 06:21] LABS: Ferritin 396 ng/mL (20-250)
[2020-04-06] MEDS: Midazolam HCl/NS 50 MG/50 ML PLAST..BAG IVCONT ×2 (06:39→22:08)
[2020-04-06] MEDS: propofoL 1,000 MG/100 ML VIAL 10.7 MG IVCONT ×3 (06:39→22:08)
[2020-04-06 06:58] LABS: D Dimer 7770 NG/ML
[2020-04-06 07:57] LABS: Free T4 (Free Thyroxine) 0.91 ng/dL (0.71-1.85)
[2020-04-06] MEDS: vancomycin HCL 1,000 MG in 0.9 % Sodium Chloride 250 ML 270 MG IV (08:20)
[2020-04-06] MEDS: dexAMETHasone sod phosphate 4 MG/ML VIAL 6 MG IVPUSH (08:21)
[2020-04-06] MEDS: carvediloL 6.25 MG TABLET PO (08:22)
[2020-04-06] MEDS: Losartan Potassium 50 MG TABLET 100 MG PO (08:22)
[2020-04-06 08:41] LABS: Base Excess VBG 2.5 mmol/L; HCO3 VBG 25 mmol/L; PCO2 VBG 34 mmHg; PO2 VBG 48 mmHg; pH VBG 7.48 (7.32-7.43)
--- NOTE | 2020-04-06 10:40 | MHC.CLN ---
RECOMMEND TF PROMOTE AT MAX GOAL RATE 50CC/HR TO PROVIDE 1200KCALS (1428KCALS WITH SEDATION; 22KCALS/KG BASED ON CMW), 75G PROTEIN (1.1G/KG), 1007CC FREE WATER FROM FORMULA MONITOR RESIDUALS, TOLERANCE AND LYTES
--- NOTE | 2020-04-06 10:43 | MHC.CM.PN ---
Patient was transferred to ICU on 04/05. Patient currently intubated/vented. Patient is from home with his and his son who is his [employer]. Continue to monitor for d/c needs.
[2020-04-06 12:04] LABS: PCO2 VBG 32 mmHg; pH VBG 7.47 (7.32-7.43)
[2020-04-06 12:05] LABS: Base Excess VBG 0.7 mmol/L; HCO3 VBG 23 mmol/L; PO2 VBG 54 mmHg
[2020-04-06 12:06] LABS: Baso%MD 0.1 %; Hematocrit 29.8 % (42-52); Hemoglobin 9.7 g/dl (14.0-18.0); IG%MD 1.5 %; Lymph%MD 7.9 %; Mean Corpuscular HGB Conc 32.6 g/dl (31.0-36.0); Mean Corpuscular Hemoglobin 28.3 pg (27.0-33.0); Mean Corpuscular Volume 86.9 fL (80-98); Mean Platelet Volume 10.6 fL (9.4-12.4); Mono%MD 4.2 %; NRBC Pct Auto 0.2 /100WBC (0.0-0.2); Neut%MD 86.3 %; Platelet Count 170 X10*3/uL (160-400); Red Blood Count 3.43 X10*6/uL (4.60-5.80); Red Cell Distribution Width 16.5 % (11.0-16.0); White Blood Count 12.7 X10*3/uL (4.8-10.8)
[2020-04-06 12:12] LABS: Fibrinogen 379 MG/DL (259-690); INTERNATIONAL NORM RATIO 3.1 (0.9-1.1); Prothrombin Time 36.7 SEC (10.8-13.0)
[2020-04-06 12:14] LABS: Partial Thromboplastin Time 33.1 SEC (24.1-38.0)
[2020-04-06 12:30] LABS: Anion Gap 10 (12-20); Blood Urea Nitrogen 33 mg/dL (9-16); Calcium 6.4 mg/dL (8.4-10.2); Carbon Dioxide 23 mmol/L (22-29); Chloride 118 mmol/L (96-108); Creatinine Clr Calc Pharmacy 66.8; Estimated Glomerular Filt Rate > 60; Glucose Random 119 mg/dL (60-115); Potassium 2.9 mmol/L (3.3-5.1); Sodium 148 mmol/L (135-145)
[2020-04-06 13:30] LABS: Band Neutrophils Percent 1 % (3-5); Lymphocytes Percent Manual 8 % (20-40); Monocytes Absolute Manual 0.9 X10*3/uL (0.0-1.2); Monocytes Percent Manual 7 % (2-11); Neutrophils Absolute Manual 10.8 X10*3/uL (2.2-7.9); Neutrophils Percent Manual 84 % (45-73)
[2020-04-06 13:31] LABS: Platelet Estimate NORMAL (NORMAL); Platelet Morphology Comment NORMAL; RBC Morphology NOTED
[2020-04-06 13:32] LABS: Acanthocytes 1+; Hypochromasia 1+; Ovalocytes 1+
--- NOTE | 2020-04-06 14:17 | PM.CCPN ---
Subjective Subjective Date of Service: 04/06/20 Interval History: 84-year-old male with bilateral COVID-19 pneumonitis/ARDS 5 days in the hospital yesterday developed altered mental status with clearly an agitated delirium it was not due to hypercarbia and toxicologic screen was negative cultures are pending and because of length of time in the hospital covered so far with 2 stat doses of meropenem and vancomycin and INR is still elevated at 3.1 so no spinal tap could be undertaken for airway protection patient was intubated and is currently doing well on the on the ventilator he does awaken if you stop the sedation ever so briefly he did have a hypertrophic myopathy with small LV cavity diastolic dysfunction and were watching his CVP and currently he remains hypernatremic and hyperchloremic and hypo Ayleen soha and so I am based on a low CVP now all of below 7 I will replete free water as well as potassium in I am going to initiated diet with free water by that mechanism follow his electrolytes with the intent of a sedation holiday in the morning Physical Exam Vital Signs: Vital Signs: Last Vital Signs Temp 97.5 F 04/06/20 14:00 Pulse 63 04/06/20 14:00 Resp 18 04/06/20 14:00 BP 120/63 04/06/20 14:00 Pulse Ox 96 04/06/20 14:00 Body Mass Index 35.9 Const: Other: Sedated and intubated but but he does awaken Respiratory with bilateral ventilator associated breath sounds Cardiac known hyper trophic cardiomyopathy and CVP measures below 7 currently in sinus rhythm with borderline 1st degree AV block Skin intact with no wounds no acrocyanosis Abdomen soft with good bowel sounds Objective Data Labs CBC & Chem 7: 04/06/20 11:50 04/06/20 11:50 Labs: Laboratory Results - last 24 hr 04/05/20 04/05/20 04/05/20 14:02 14:02 17:17 WBC 15.9 H RBC 4.01 L Hgb 11.5 L Hct 35.2 L MCV 87.8 MCH 28.7 MCHC 32.7 RDW 16.5 H Plt Count 162 D MPV 10.3 Immature Gran % (Auto) 1.2 H Neut % (Auto) 89.0 H Lymph % (Auto) 6.7 L Stephenson % (Auto) 3.0 Eos % (Auto) 0.0 Baso % (Auto) 0.1 Lymph # (Auto) 1.1 L Stephenson # (Auto) 0.5 Eos # (Auto) 0.0 Baso # (Auto) 0.0 Abs Immat Gran (auto) 0.19 H Absolute Neuts (auto) 14.2 H Absolute Nucleated RBC 0.050 H Nucleated RBC % (auto) 0.3 H Neutrophils % (Manual) Band Neutrophils % Lymphocytes % (Manual) Monocytes % (Manual) Abs Neuts (Manual) Lymphocytes # (Manual) Monocytes # (Manual) Platelet Estimate Plt Morphology Comment RBC Morphology Hypochromasia Ovalocytes Acanthocytes (Spur) PT INR APTT Fibrinogen D-Dimer ABG pH 7.41 ABG pCO2 30 L ABG pO2 61 L ABG HCO3 19 L ABG O2 Saturation 88.0 ABG Base Excess -3.5 VBG pH VBG pCO2 VBG pO2 VBG HCO3 VBG O2 Saturation VBG Base Excess Oxygen Given 5 L Sodium 146 H Potassium 4.2 Chloride 109 H Carbon Dioxide 23 Anion Gap 18 BUN 46 H Creatinine 1.22 Estim Creat Clear Calc 44.4 Estimated GFR 57 Random Glucose 135 H Lactic Acid Lactic Acid Fup @ 2Hr Calcium 8.1 L D Phosphorus Magnesium Ferritin Total Bilirubin 0.3 Direct Bilirubin 0.2 AST 50 H ALT 46 H Alkaline Phosphatase 82 Lactate Dehydrogenase B-Natriuretic Peptide Total Protein 6.1 L Albumin 3.0 L TSH Free T4 04/05/20 04/05/20 04/05/20 17:24 20:20 21:28 WBC RBC Hgb Hct MCV MCH MCHC RDW Plt Count MPV Immature Gran % (Auto) Neut % (Auto) Lymph % (Auto) Stephenson % (Auto) Eos % (Auto) Baso % (Auto) Lymph # (Auto) Stephenson # (Auto) Eos # (Auto) Baso # (Auto) Abs Immat Gran (auto) Absolute Neuts (auto) Absolute Nucleated RBC Nucleated RBC % (auto) Neutrophils % (Manual) Band Neutrophils % Lymphocytes % (Manual) Monocytes % (Manual) Abs Neuts (Manual) Lymphocytes # (Manual) Monocytes # (Manual) Platelet Estimate Plt Morphology Comment RBC Morphology Hypochromasia Ovalocytes Acanthocytes (Spur) PT INR APTT Fibrinogen D-Dimer ABG pH ABG pCO2 ABG pO2 ABG HCO3 ABG O2 Saturation ABG Base Excess VBG pH 7.38 VBG pCO2 38 VBG pO2 42 VBG HCO3 23 VBG O2 Saturation 68.0 VBG Base Excess -1.5 Oxygen Given Sodium Potassium Chloride Carbon Dioxide Anion Gap BUN Creatinine Estim Creat Clear Calc Estimated GFR Random Glucose Lactic Acid 2.1 H* Lactic Acid Fup @ 2Hr Calcium Phosphorus Magnesium Ferritin Total Bilirubin Direct Bilirubin AST ALT Alkaline Phosphatase Lactate Dehydrogenase B-Natriuretic Peptide 131 H Total Protein Albumin TSH Free T4 04/05/20 04/06/20 04/06/20 23:45 05:16 05:16 WBC RBC Hgb Hct MCV MCH MCHC RDW Plt Count MPV Immature Gran % (Auto) Neut % (Auto) Lymph % (Auto) Stephenson % (Auto) Eos % (Auto) Baso % (Auto) Lymph # (Auto) Stephenson # (Auto) Eos # (Auto) Baso # (Auto) Abs Immat Gran (auto) Absolute Neuts (auto) Absolute Nucleated RBC Nucleated RBC % (auto) Neutrophils % (Manual) Band Neutrophils % Lymphocytes % (Manual) Monocytes % (Manual) Abs Neuts (Manual) Lymphocytes # (Manual) Monocytes # (Manual) Platelet Estimate Plt Morphology Comment RBC Morphology Hypochromasia Ovalocytes Acanthocytes (Spur) PT 37.4 H INR 3.1 H APTT 34.6 D Fibrinogen D-Dimer 7770 ABG pH ABG pCO2 ABG pO2 ABG HCO3 ABG O2 Saturation ABG Base Excess VBG pH VBG pCO2 VBG pO2 VBG HCO3 VBG O2 Saturation VBG Base Excess Oxygen Given Sodium 144 Potassium 3.4 Chloride 111 H Carbon Dioxide 24 Anion Gap 12 BUN 40 H Creatinine 1.03 Estim Creat Clear Calc 52.6 Estimated GFR > 60 Random Glucose 155 H Lactic Acid Lactic Acid Fup @ 2Hr 1.1 Calcium 7.6 L D Phosphorus 2.9 Magnesium 1.9 Ferritin 396 H Total Bilirubin Direct Bilirubin AST ALT Alkaline Phosphatase Lactate Dehydrogenase 608 H B-Natriuretic Peptide Total Protein Albumin TSH Free T4 04/06/20 04/06/20 04/06/20 05:16 05:16 05:16 WBC 13.6 H RBC 3.59 L Hgb 10.2 L Hct 31.3 L MCV 87.2 MCH 28.4 MCHC 32.6 RDW 16.2 H Plt Count 185 MPV 10.5 Immature Gran % (Auto) 1.0 H Neut % (Auto) 86.4 H Lymph % (Auto) 8.1 L Stephenson % (Auto) 4.4 Eos % (Auto) 0.0 Baso % (Auto) 0.1 Lymph # (Auto) 1.1 L Stephenson # (Auto) 0.6 Eos # (Auto) 0.0 Baso # (Auto) 0.0 Abs Immat Gran (auto) 0.14 H Absolute Neuts (auto) 11.7 H Absolute Nucleated RBC 0.030 H Nucleated RBC % (auto) 0.2 Neutrophils % (Manual) Band Neutrophils % Lymphocytes % (Manual) Monocytes % (Manual) Abs Neuts (Manual) Lymphocytes # (Manual) Monocytes # (Manual) Platelet Estimate Plt Morphology Comment RBC Morphology Hypochromasia Ovalocytes Acanthocytes (Spur) PT INR APTT Fibrinogen D-Dimer ABG pH ABG pCO2 ABG pO2 ABG HCO3 ABG O2 Saturation ABG Base Excess VBG pH VBG pCO2 VBG pO2 VBG HCO3 VBG O2 Saturation VBG Base Excess Oxygen Given Sodium Potassium Chloride Carbon Dioxide Anion Gap BUN Creatinine Estim Creat Clear Calc Estimated GFR Random Glucose Lactic Acid Lactic Acid Fup @ 2Hr Calcium Phosphorus Magnesium Ferritin Total Bilirubin Direct Bilirubin AST ALT Alkaline Phosphatase Lactate Dehydrogenase B-Natriuretic Peptide 153 H Total Protein Albumin TSH 0.49 Free T4 04/06/20 04/06/20 04/06/20 05:16 07:00 08:22 WBC RBC Hgb Hct MCV MCH MCHC RDW Plt Count MPV Immature Gran % (Auto) Neut % (Auto) Lymph % (Auto) Stephenson % (Auto) Eos % (Auto) Baso % (Auto) Lymph # (Auto) Stephenson # (Auto) Eos # (Auto) Baso # (Auto) Abs Immat Gran (auto) Absolute Neuts (auto) Absolute Nucleated RBC Nucleated RBC % (auto) Neutrophils % (Manual) Band Neutrophils % Lymphocytes % (Manual) Monocytes % (Manual) Abs Neuts (Manual) Lymphocytes # (Manual) Monocytes # (Manual) Platelet Estimate Plt Morphology Comment RBC Morphology Hypochromasia Ovalocytes Acanthocytes (Spur) PT INR APTT Fibrinogen D-Dimer ABG pH ABG pCO2 ABG pO2 ABG HCO3 ABG O2 Saturation ABG Base Excess VBG pH 7.47 H 7.48 H VBG pCO2 32 34 VBG pO2 57 48 VBG HCO3 24 25 VBG O2 Saturation 87.0 79.0 VBG Base Excess 1.0 2.5 Oxygen Given Sodium Potassium Chloride Carbon Dioxide Anion Gap BUN Creatinine Estim Creat Clear Calc Estimated GFR Random Glucose Lactic Acid Lactic Acid Fup @ 2Hr Calcium Phosphorus Magnesium Ferritin Total Bilirubin Direct Bilirubin AST ALT Alkaline Phosphatase Lactate Dehydrogenase B-Natriuretic Peptide Total Protein Albumin TSH Free T4 0.91 04/06/20 04/06/20 04/06/20 11:50 11:50 11:50 WBC 12.7 H RBC 3.43 L Hgb 9.7 L Hct 29.8 L MCV 86.9 MCH 28.3 MCHC 32.6 RDW 16.5 H Plt Count 170 MPV 10.6 Immature Gran % (Auto) Neut % (Auto) Lymph % (Auto) Stephenson % (Auto) Eos % (Auto) Baso % (Auto) Lymph # (Auto) Stephenson # (Auto) Eos # (Auto) Baso # (Auto) Abs Immat Gran (auto) Absolute Neuts (auto) Absolute Nucleated RBC 0.020 H Nucleated RBC % (auto) 0.2 Neutrophils % (Manual) 84 H Band Neutrophils % 1 L Lymphocytes % (Manual) 8 L Monocytes % (Manual) 7 Abs Neuts (Manual) 10.8 H Lymphocytes # (Manual) 1.0 Monocytes # (Manual) 0.9 Platelet Estimate NORMAL Plt Morphology Comment NORMAL RBC Morphology NOTED Hypochromasia 1+ Ovalocytes 1+ Acanthocytes (Spur) 1+ PT 36.7 H INR 3.1 H APTT 33.1 Fibrinogen 379 D-Dimer ABG pH ABG pCO2 ABG pO2 ABG HCO3 ABG O2 Saturation ABG Base Excess VBG pH VBG pCO2 VBG pO2 VBG HCO3 VBG O2 Saturation VBG Base Excess Oxygen Given Sodium 148 H Potassium 2.9 L Chloride 118 H Carbon Dioxide 23 Anion Gap 10 L BUN 33 H Creatinine 0.81 Estim Creat Clear Calc 66.8 Estimated GFR > 60 Random Glucose 119 H Lactic Acid Lactic Acid Fup @ 2Hr Calcium 6.4 L D Phosphorus Magnesium Ferritin Total Bilirubin Direct Bilirubin AST ALT Alkaline Phosphatase Lactate Dehydrogenase B-Natriuretic Peptide Total Protein Albumin TSH Free T4 04/06/20 11:50 WBC RBC Hgb Hct MCV MCH MCHC RDW Plt Count MPV Immature Gran % (Auto) Neut % (Auto) Lymph % (Auto) Stephenson % (Auto) Eos % (Auto) Baso % (Auto) Lymph # (Auto) Stephenson # (Auto) Eos # (Auto) Baso # (Auto) Abs Immat Gran (auto) Absolute Neuts (auto) Absolute Nucleated RBC Nucleated RBC % (auto) Neutrophils % (Manual) Band Neutrophils % Lymphocytes % (Manual) Monocytes % (Manual) Abs Neuts (Manual) Lymphocytes # (Manual) Monocytes # (Manual) Platelet Estimate Plt Morphology Comment RBC Morphology Hypochromasia Ovalocytes Acanthocytes (Spur) PT INR APTT Fibrinogen D-Dimer ABG pH ABG pCO2 ABG pO2 ABG HCO3 ABG O2 Saturation ABG Base Excess VBG pH 7.47 H VBG pCO2 32 VBG pO2 54 VBG HCO3 23 VBG O2 Saturation 87.0 VBG Base Excess 0.7 Oxygen Given Sodium Potassium Chloride Carbon Dioxide Anion Gap BUN Creatinine Estim Creat Clear Calc Estimated GFR Random Glucose Lactic Acid Lactic Acid Fup @ 2Hr Calcium Phosphorus Magnesium Ferritin Total Bilirubin Direct Bilirubin AST ALT Alkaline Phosphatase Lactate Dehydrogenase B-Natriuretic Peptide Total Protein Albumin TSH Free T4 Microbiology Microbiology Results: Microbiology 04/05/20 21:10 Urine Catheterized - Sigala Catheter Urine Culture - Preliminary No growth to date. 04/05/20 21:10 Sputum - Suctioned Gram Stain - Final 04/05/20 21:10 Sputum - Suctioned Sputum Culture - Preliminary Culture in progress. 04/01/20 06:18 Blood - Venous Blood Culture - Final No growth after 5 days. 04/01/20 05:54 Blood - Venous Blood Culture - Final No growth after 5 days. Progress Note: A&P Assessment and plan (1) Delirium: Status: Acute (2) Diastolic CHF, acute on chronic: Status: Acute (3) ARDS (adult respiratory distress syndrome): Status: Acute (4) Hypogammaglobulinemia: Status: Acute (5) Pneumonia: Status: Acute (6) Acute respiratory failure with hypoxia: Status: Acute (7) COVID-19 virus infection: Problem details: H Status: Acute (8) Acute exacerbation of chronic obstructive pulmonary disease (COPD): Status: Acute (9) GERD with esophagitis: Status: Acute (10) CHF (congestive heart failure): Status: Acute (11) Peripheral neuropathy: Status: Acute (12) Constipation: Status: Acute (13) Diverticulitis: Status: Acute (14) Polyarthralgia: Status: Acute (15) Anemia: Status: Acute (16) Obstructive sleep apnea: Problem details: Cannot tolerate CPAP. Status: Acute (17) BPH (benign prostatic hyperplasia): Problem details: Laser Dr. Alegria 11/2017 Status: Acute (18) Anxiety and depression: Status: Acute (19) Paroxysmal atrial fibrillation: Status: Acute (20) COPD (chronic obstructive pulmonary disease): Status: Acute (21) Obesity (BMI 30-39.9): Status: Acute (22) Hypercholesterolemia: Status: Acute (23) Hypertension: Status: Acute (24) Current use of anticoagulant therapy: Status: Acute (25) Hypernatremia: Status: Acute (26) Hyperchloremia: Status: Acute (27) Hypokalemia due to excessive renal loss of potassium: Status: Acute Assessment and Plan: Will replete free water and potassium and keep him sedated the rest of the night recheck electrolytes and then recheck in the morning on sedation holiday his cognitive function continue to attempt ventilator weaning if he awakens appropriately Time Spent With Patient Time: Total time spent is greater than 50% in coordination of care (as documented) at patient's floor/unit and/or counseling patient: Total time spent with greater than 50% in coordination of care (as documented) at patient's floor/unit and/or counseling patient:: 45
[2020-04-06] MEDS: Potassium Chloride Packet 20 MEQ PACKET 40 MEQ PO ×2 (14:26→17:23)
[2020-04-06] MEDS: Dextrose 5 % 1,000 ML 75 ML IVCONT ×2 (15:02→22:08)
--- NOTE | 2020-04-06 15:18 | PC.NURSE ---
pt remains sedated on propofol and versed, levo at 0.02mcg, AC settings on ventilator, fio2 40%, no secretions noted orally or inline, mouth care done, pt bathed, repositioned q2h, updated family, plan to let patient rest today, pt moves arms and coughs when repositioned, MD aware, urine output 0-10ml/hr, MD aware, promote tube feed started at 20ml/hr, potassium replacement as ordered, will cont to monitor
[2020-04-06] MEDS: 0.9 % Sodium Chloride Flush 3 ML SYRINGE IVFLUSH (15:51)
[2020-04-06 22:30] LABS: pH VBG 7.45 (7.32-7.43)
[2020-04-06 22:31] LABS: Base Excess VBG -0.1 mmol/L; HCO3 VBG 23 mmol/L; PCO2 VBG 32 mmHg; PO2 VBG 52 mmHg
[2020-04-07] VITALS (28 sets, daily range): BP systolic 86–144; BP diastolic 45–69; PULSE 55–93; RESP 18–22; TEMP 35.4–37.4; O2SAT 91–99
[2020-04-07] MEDS: 0.9 % Sodium Chloride Flush 3 ML SYRINGE IVFLUSH ×4 (03:13→21:03)
[2020-04-07 03:37] LABS: Triiodothyronine T3 Free 1.5 pg/mL (2.3-4.2)
[2020-04-07 05:33] LABS: Basophils Percent Auto 0.1 % (0-2); Hematocrit 27.4 % (42-52); Hemoglobin 8.9 g/dl (14.0-18.0); Imm Gran Abs Auto 0.09 X10*3/uL (0.00-0.03); Lymphocytes Absolute Auto 0.5 X10*3/uL (1.2-4.9); Lymphocytes Percent Auto 5.9 % (20-40); MANUAL DIFF FLAG SCAN; Mean Corpuscular HGB Conc 32.5 g/dl (31.0-36.0); Mean Corpuscular Hemoglobin 28.3 pg (27.0-33.0); Mean Corpuscular Volume 87.3 fL (80-98); Mean Platelet Volume 10.5 fL (9.4-12.4); Monocytes Absolute Auto 0.4 X10*3/uL (0.1-1.2); NRBC Pct Auto 0.2 /100WBC (0.0-0.2); Neutrophils Absolute Auto 7.8 X10*3/uL (2.0-8.3); Platelet Count 135 X10*3/uL (160-400); Red Blood Count 3.14 X10*6/uL (4.60-5.80); Red Cell Distribution Width 16.8 % (11.0-16.0); SCAN SMEAR FLAG 1; White Blood Count 8.8 X10*3/uL (4.8-10.8)
[2020-04-07] MEDS: Chlorhexidine Gluc Oral Rinse 15 ML MOUTHWASH BUCCAL ×3 (05:49→18:25)
[2020-04-07] MEDS: propofoL 1,000 MG/100 ML VIAL 10.7 MG IVCONT ×2 (05:49→20:59)
[2020-04-07] MEDS: Pantoprazole Sodium 40 MG/10 ML VIAL IVPUSH (05:49)
[2020-04-07 06:11] LABS: Anion Gap 9 (12-20); Blood Urea Nitrogen 34 mg/dL (9-16); Calcium 7.2 mg/dL (8.4-10.2); Carbon Dioxide 24 mmol/L (22-29); Chloride 111 mmol/L (96-108); Creatinine Clr Calc Pharmacy 59.5; Estimated Glomerular Filt Rate > 60; Glucose Random 247 mg/dL (60-115); Lactate Dehydrogenase 410 U/L (118-273); Phosphorus 1.9 mg/dL (2.7-4.5); Potassium 4.2 mmol/L (3.3-5.1); Sodium 140 mmol/L (135-145)
[2020-04-07 06:12] LABS: B Type Natriuretic Peptide 84 pg/mL (<100)
[2020-04-07 06:29] LABS: Ferritin 276 ng/mL (20-250)
[2020-04-07 06:34] LABS: INTERNATIONAL NORM RATIO 2.6 (0.9-1.1); Prothrombin Time 31.1 SEC (10.8-13.0)
[2020-04-07 06:37] LABS: Partial Thromboplastin Time 31.1 SEC (24.1-38.0)
[2020-04-07 07:46] LABS: D Dimer 6000 NG/ML
[2020-04-07] MEDS: dexAMETHasone sod phosphate 4 MG/ML VIAL 6 MG IVPUSH (08:57)
[2020-04-07 09:20] LABS: SLIDE REVIEW VERIFIED
--- NOTE | 2020-04-07 10:00 | PC.NURSE ---
Sedation vacation initiated at 0900. Patient over breathing vent settings. Placed on PS. Patient became tachycardia and tachypneic. Patient attempting to lift arms but unable to open his eyes or follow commands with use of a motor vehicle parts interpreter at bedside. 0945 patient placed back on sedation and previous vent settings: AC rate 18, tidal volume of 500, PEEP 5, fi02 30%.
--- NOTE | 2020-04-07 11:26 | PM.CCPN ---
Subjective Subjective Date of Service: 04/07/20 Interval History: 84-year-old male with bilateral COVID-19 pneumonitis and ARDS developed altered mental status with agitated delirium without apparent metabolic etiology so presumably an encephalitic process related to the COVID and the brought down for intubation and today again he failed reduction of his sedation because no demonstrable cognitive function and then he failed on pressure support with clear-cut evidence of respiratory insufficiency My bedside echo demonstrated concentric left ventricular hypertrophy consistent with some form of hypertrophic myopathy but he has got a stable CVP that were following from the standpoint of his volume Physical Exam Vital Signs: Vital Signs: Last Vital Signs Temp 99.3 F 04/07/20 08:00 Pulse 70 04/07/20 11:00 Resp 18 04/07/20 11:00 BP 97/47 L 04/07/20 11:00 Pulse Ox 96 04/07/20 11:00 Body Mass Index 35.9 Const: Other: Off sedation still delirious but nonfocal neurologically Persistent ventilator dependence but no wheezing and no other adventitious sounds Cardiac exam no gallops no neck vein distension with Sable stable CVP Skin intact no acrocyanosis Objective Data Labs CBC & Chem 7: 04/07/20 05:15 04/07/20 05:15 Labs: Laboratory Results - last 24 hr 04/06/20 04/06/20 04/06/20 07:00 07:00 11:50 WBC 12.7 H RBC 3.43 L Hgb 9.7 L Hct 29.8 L MCV 86.9 MCH 28.3 MCHC 32.6 RDW 16.5 H Plt Count 170 MPV 10.6 Immature Gran % (Auto) Neut % (Auto) Lymph % (Auto) [place] % (Auto) Eos % (Auto) Baso % (Auto) Lymph # (Auto) [place] # (Auto) Eos # (Auto) Baso # (Auto) Abs Immat Gran (auto) Absolute Neuts (auto) Absolute Nucleated RBC 0.020 H Nucleated RBC % (auto) 0.2 Neutrophils % (Manual) 84 H Band Neutrophils % 1 L Lymphocytes % (Manual) 8 L Monocytes % (Manual) 7 Abs Neuts (Manual) 10.8 H Lymphocytes # (Manual) 1.0 Monocytes # (Manual) 0.9 Platelet Estimate NORMAL Plt Morphology Comment NORMAL RBC Morphology NOTED Hypochromasia 1+ Ovalocytes 1+ Acanthocytes (Spur) 1+ Smear Tech's Comments PT INR APTT Fibrinogen D-Dimer VBG pH VBG pCO2 VBG pO2 VBG HCO3 VBG O2 Saturation VBG Base Excess Sodium Potassium Chloride Carbon Dioxide Anion Gap BUN Creatinine Estim Creat Clear Calc Estimated GFR Random Glucose Calcium Phosphorus Magnesium Ferritin Lactate Dehydrogenase B-Natriuretic Peptide Free T3 1.5 L Cortisol 4.1 04/06/20 04/06/20 04/06/20 11:50 11:50 11:50 WBC RBC Hgb Hct MCV MCH MCHC RDW Plt Count MPV Immature Gran % (Auto) Neut % (Auto) Lymph % (Auto) [place] % (Auto) Eos % (Auto) Baso % (Auto) Lymph # (Auto) [place] # (Auto) Eos # (Auto) Baso # (Auto) Abs Immat Gran (auto) Absolute Neuts (auto) Absolute Nucleated RBC Nucleated RBC % (auto) Neutrophils % (Manual) Band Neutrophils % Lymphocytes % (Manual) Monocytes % (Manual) Abs Neuts (Manual) Lymphocytes # (Manual) Monocytes # (Manual) Platelet Estimate Plt Morphology Comment RBC Morphology Hypochromasia Ovalocytes Acanthocytes (Spur) Smear Tech's Comments PT 36.7 H INR 3.1 H APTT 33.1 Fibrinogen 379 D-Dimer VBG pH 7.47 H VBG pCO2 32 VBG pO2 54 VBG HCO3 23 VBG O2 Saturation 87.0 VBG Base Excess 0.7 Sodium 148 H Potassium 2.9 L Chloride 118 H Carbon Dioxide 23 Anion Gap 10 L BUN 33 H Creatinine 0.81 Estim Creat Clear Calc 66.8 Estimated GFR > 60 Random Glucose 119 H Calcium 6.4 L D Phosphorus Magnesium Ferritin Lactate Dehydrogenase B-Natriuretic Peptide Free T3 Cortisol 04/06/20 04/07/20 04/07/20 22:05 05:15 05:15 WBC RBC Hgb Hct MCV MCH MCHC RDW Plt Count MPV Immature Gran % (Auto) Neut % (Auto) Lymph % (Auto) [place] % (Auto) Eos % (Auto) Baso % (Auto) Lymph # (Auto) [place] # (Auto) Eos # (Auto) Baso # (Auto) Abs Immat Gran (auto) Absolute Neuts (auto) Absolute Nucleated RBC Nucleated RBC % (auto) Neutrophils % (Manual) Band Neutrophils % Lymphocytes % (Manual) Monocytes % (Manual) Abs Neuts (Manual) Lymphocytes # (Manual) Monocytes # (Manual) Platelet Estimate Plt Morphology Comment RBC Morphology Hypochromasia Ovalocytes Acanthocytes (Spur) Smear Tech's Comments PT 31.1 H INR 2.6 H APTT 31.1 Fibrinogen D-Dimer 6000 VBG pH 7.45 H VBG pCO2 32 VBG pO2 52 VBG HCO3 23 VBG O2 Saturation 82.0 VBG Base Excess -0.1 Sodium 140 Potassium 4.2 D Chloride 111 H Carbon Dioxide 24 Anion Gap 9 L BUN 34 H Creatinine 0.91 Estim Creat Clear Calc 59.5 Estimated GFR > 60 Random Glucose 247 H D Calcium 7.2 L D Phosphorus 1.9 L Magnesium 2.0 Ferritin 276 H Lactate Dehydrogenase 410 H B-Natriuretic Peptide Free T3 Cortisol 04/07/20 04/07/20 05:15 05:15 WBC 8.8 RBC 3.14 L Hgb 8.9 L Hct 27.4 L MCV 87.3 MCH 28.3 MCHC 32.5 RDW 16.8 H Plt Count 135 L MPV 10.5 Immature Gran % (Auto) 1.0 H Neut % (Auto) 89.0 H Lymph % (Auto) 5.9 L [place] % (Auto) 4.0 Eos % (Auto) 0.0 Baso % (Auto) 0.1 Lymph # (Auto) 0.5 L [place] # (Auto) 0.4 Eos # (Auto) 0.0 Baso # (Auto) 0.0 Abs Immat Gran (auto) 0.09 H Absolute Neuts (auto) 7.8 Absolute Nucleated RBC 0.020 H Nucleated RBC % (auto) 0.2 Neutrophils % (Manual) Band Neutrophils % Lymphocytes % (Manual) Monocytes % (Manual) Abs Neuts (Manual) Lymphocytes # (Manual) Monocytes # (Manual) Platelet Estimate Plt Morphology Comment RBC Morphology Hypochromasia Ovalocytes Acanthocytes (Spur) Smear Tech's Comments VERIFIED PT INR APTT Fibrinogen D-Dimer VBG pH VBG pCO2 VBG pO2 VBG HCO3 VBG O2 Saturation VBG Base Excess Sodium Potassium Chloride Carbon Dioxide Anion Gap BUN Creatinine Estim Creat Clear Calc Estimated GFR Random Glucose Calcium Phosphorus Magnesium Ferritin Lactate Dehydrogenase B-Natriuretic Peptide 84 Free T3 Cortisol Microbiology Microbiology Results: Microbiology 04/05/20 20:20 Blood - Venous Blood Culture - Preliminary No growth after 24 hours. 04/05/20 20:25 Blood - Venous Blood Culture - Preliminary No growth after 24 hours. 04/05/20 21:10 Urine Catheterized - Sigala Catheter Urine Culture - Preliminary No growth to date. 04/05/20 21:10 Sputum - Suctioned Gram Stain - Final 04/05/20 21:10 Sputum - Suctioned Sputum Culture - Preliminary Culture in progress. 04/01/20 06:18 Blood - Venous Blood Culture - Final No growth after 5 days. 04/01/20 05:54 Blood - Venous Blood Culture - Final No growth after 5 days. Progress Note: A&P Assessment and plan (1) Hypokalemia due to excessive renal loss of potassium: Status: Acute (2) Hyperchloremia: Status: Acute (3) Hypernatremia: Status: Acute (4) Delirium: Status: Acute (5) Diastolic CHF, acute on chronic: Status: Acute (6) ARDS (adult respiratory distress syndrome): Status: Acute (7) Confusion: Status: Acute (8) Hypogammaglobulinemia: Status: Acute (9) Pneumonia: Status: Acute (10) Acute respiratory failure with hypoxia: Status: Acute (11) COVID-19 virus infection: Problem details: H Status: Acute (12) Acute exacerbation of chronic obstructive pulmonary disease (COPD): Status: Acute (13) Headache: Status: Acute (14) Frequency of micturition: Status: Acute (15) Chronic abdominal pain: Status: Acute (16) GERD with esophagitis: Status: Acute (17) CHF (congestive heart failure): Status: Acute (18) Peripheral neuropathy: Status: Acute (19) Constipation: Status: Acute (20) Diverticulitis: Status: Acute (21) Polyarthralgia: Status: Acute (22) Anemia: Status: Acute (23) Cholecystitis: Status: Acute (24) GERD (gastroesophageal reflux disease): Status: Acute (25) Obstructive sleep apnea: Problem details: Cannot tolerate CPAP. Status: Acute (26) BPH (benign prostatic hyperplasia): Problem details: Dora Alegria 11/2017 Status: Acute (27) Anxiety and depression: Status: Acute (28) Paroxysmal atrial fibrillation: Status: Acute (29) COPD (chronic obstructive pulmonary disease): Status: Acute (30) Obesity (BMI 30-39.9): Status: Acute (31) Hypercholesterolemia: Status: Acute (32) Hypertension: Status: Acute (33) Current use of anticoagulant therapy: Status: Acute Assessment and Plan: Recent dated and replaced on assist control for now and still therapeutically anticoagulated from Coumadin and all surveillance cultures remain negative to date Time Spent With Patient Time: Total time spent is greater than 50% in coordination of care (as documented) at patient's floor/unit and/or counseling patient: Total time spent with greater than 50% in coordination of care (as documented) at patient's floor/unit and/or counseling patient:: 35
[2020-04-07] MEDS: Dextrose 5 % 1,000 ML 75 ML IVCONT ×2 (11:38→21:02)
[2020-04-07] MEDS: propofoL 1,000 MG/100 ML VIAL 8.56 MG IVCONT (14:40)
[2020-04-08] VITALS (30 sets, daily range): BP systolic 104–174; BP diastolic 51–78; PULSE 54–106; RESP 18–44; TEMP 35.8–36.9; O2SAT 91–98
[2020-04-08] MEDS: Midazolam HCl/NS 50 MG/50 ML PLAST..BAG IVCONT
[2020-04-08] MEDS: propofoL 1,000 MG/100 ML VIAL 10.7 MG IVCONT ×3 (02:39→20:53)
[2020-04-08] MEDS: Chlorhexidine Gluc Oral Rinse 15 ML MOUTHWASH BUCCAL ×3 (02:39→17:32)
[2020-04-08] MEDS: Pantoprazole Sodium 40 MG/10 ML VIAL IVPUSH (06:09)
[2020-04-08 06:38] LABS: Basophils Percent Auto 0.1 % (0-2); Hematocrit 27.8 % (42-52); Hemoglobin 8.9 g/dl (14.0-18.0); Imm Gran Abs Auto 0.19 X10*3/uL (0.00-0.03); Lymphocytes Absolute Auto 0.6 X10*3/uL (1.2-4.9); Lymphocytes Percent Auto 6.8 % (20-40); MANUAL DIFF FLAG SCAN; Mean Corpuscular Volume 87.4 fL (80-98); Mean Platelet Volume 11.6 fL (9.4-12.4); Monocytes Absolute Auto 0.6 X10*3/uL (0.1-1.2); Monocytes Percent Auto 5.8 % (2-11); NRBC Pct Auto 0.3 /100WBC (0.0-0.2); Neutrophils Absolute Auto 8.1 X10*3/uL (2.0-8.3); Neutrophils Percent Auto 85.3 % (45-73); Platelet Count 143 X10*3/uL (160-400); Red Blood Count 3.18 X10*6/uL (4.60-5.80); Red Cell Distribution Width 16.4 % (11.0-16.0); SCAN SMEAR FLAG 1; White Blood Count 9.5 X10*3/uL (4.8-10.8)
[2020-04-08 06:54] LABS: Partial Thromboplastin Time 28.8 SEC (24.1-38.0)
[2020-04-08 06:55] LABS: INTERNATIONAL NORM RATIO 2.3 (0.9-1.1); Prothrombin Time 27.1 SEC (10.8-13.0)
[2020-04-08 07:02] LABS: B Type Natriuretic Peptide 50 pg/mL (<100)
[2020-04-08 07:15] LABS: Anion Gap 10 (12-20); Blood Urea Nitrogen 28 mg/dL (9-16); Carbon Dioxide 23 mmol/L (22-29); Chloride 105 mmol/L (96-108); Creatinine Clr Calc Pharmacy 68.5; Estimated Glomerular Filt Rate > 60; Glucose Random 250 mg/dL (60-115); Lactate Dehydrogenase 392 U/L (118-273); Magnesium 1.9 mg/dL (1.6-2.6); Phosphorus 2.6 mg/dL (2.7-4.5); Sodium 134 mmol/L (135-145)
[2020-04-08 07:23] LABS: Ferritin 268 ng/mL (20-250)
[2020-04-08 07:24] LABS: D Dimer 7895 NG/ML
[2020-04-08 07:44] LABS: SLIDE REVIEW VERIFIED
[2020-04-08] MEDS: 0.9 % Sodium Chloride Flush 3 ML SYRINGE IVFLUSH (08:22)
[2020-04-08] MEDS: dexAMETHasone sod phosphate 4 MG/ML VIAL 6 MG IVPUSH (08:25)
--- NOTE | 2020-04-08 10:32 | PC.NURSE ---
Addendum entered by Thais Garrison RN 04/08/20 20:25: FAMILY UPDATED BY THIS RN. Original Note: SEDATION VACATION STARTED AT 08. PROPOFOL AND VERSED GTTS OFF. REMAINED ON AC 18 TV 500 PEEP 5 ON 30% FI02, COUGHING BUT TOLERATING SETTINGS UNTIL 914. VENT SETTINGS CHANGED TO PSV 25/5 ON 30% FI02. PT MOVING ALL 4 EXTREMEITIES, BUT UNABLE TO FOLLOW COMMANDS - DOES NOT SQUEEZE HANDS, TRACK OR OPEN EYES ON COMMAND. HR IN 90S, SBP ELEVATED. PER MD SEDATION TURNED BACK ON AT 1015 - PROPOFOL RESUMED AT 20 MCG/KG/MIN AND VERSED 2 MG/HR. VENT SETTING PC 18/5 ON 30% FI02, TOLERATING WELL. HR 60S, SBP 110-120. WILL CONTINUE TO MONITOR. TUBE FEEDS ON HOLD FROM [id number]. RESUMED AT PREVIOUS SETTINGS OF 50ML/HR.
--- NOTE | 2020-04-08 13:35 | P.PNCC_ITS ---
Subjective Subjective Date of Service: 04/08/20 Interval History: Sedated and intubated and off sedation still it and has his delirium with poor cognitive function but moves all 4 extremities became dyssynchronous with the ventilator markedly tachypneic and had to be restored to assist control because of persistent respiratory failure He has bilateral COVID pneumonitis with ARDS as well as a hypertrophic cardiomyopathy probable contribution from diastolic CHF Physical Exam Vital Signs: Vital Signs: Last Vital Signs Temp 97.9 F 04/08/20 11:57 Pulse 58 04/08/20 13:00 Resp 18 04/08/20 13:00 BP 122/60 04/08/20 13:00 Pulse Ox 98 04/08/20 13:00 Body Mass Index 35.9 Const: Other: Sedated and intubated but nonfocal neurologically Skin intact no wounds no edema no acrocyanosis Cardiac exam CVP of approximately 3 and good bilateral carotid upstrokes normal sinus rhythm no gallops Abdomen obese but benign good bowel sounds no organomegaly Chest with could coarse bilateral ventilator sounds Objective Data Labs CBC & Chem 7: 04/08/20 05:15 04/08/20 05:16 Labs: Laboratory Results - last 24 hr 04/08/20 04/08/20 04/08/20 05:15 05:15 05:15 WBC 9.5 RBC 3.18 L Hgb 8.9 L Hct 27.8 L MCV 87.4 MCH 28.0 MCHC 32.0 RDW 16.4 H Plt Count 143 L MPV 11.6 Immature Gran % (Auto) 2.0 H Neut % (Auto) 85.3 H Lymph % (Auto) 6.8 L [place] % (Auto) 5.8 Eos % (Auto) 0.0 Baso % (Auto) 0.1 Lymph # (Auto) 0.6 L [place] # (Auto) 0.6 Eos # (Auto) 0.0 Baso # (Auto) 0.0 Abs Immat Gran (auto) 0.19 H Absolute Neuts (auto) 8.1 Absolute Nucleated RBC 0.030 H Nucleated RBC % (auto) 0.3 H Smear Tech's Comments VERIFIED PT 27.1 H INR 2.3 H APTT 28.8 D-Dimer 7895 Sodium Potassium Chloride Carbon Dioxide Anion Gap BUN Creatinine Estim Creat Clear Calc Estimated GFR Random Glucose Calcium Phosphorus Magnesium Ferritin Lactate Dehydrogenase B-Natriuretic Peptide 50 04/08/20 05:16 WBC RBC Hgb Hct MCV MCH MCHC RDW Plt Count MPV Immature Gran % (Auto) Neut % (Auto) Lymph % (Auto) [place] % (Auto) Eos % (Auto) Baso % (Auto) Lymph # (Auto) [place] # (Auto) Eos # (Auto) Baso # (Auto) Abs Immat Gran (auto) Absolute Neuts (auto) Absolute Nucleated RBC Nucleated RBC % (auto) Smear Tech's Comments PT INR APTT D-Dimer Sodium 134 L Potassium 4.0 Chloride 105 Carbon Dioxide 23 Anion Gap 10 L BUN 28 H Creatinine 0.79 Estim Creat Clear Calc 68.5 Estimated GFR > 60 Random Glucose 250 H Calcium 7.0 L Phosphorus 2.6 L Magnesium 1.9 Ferritin 268 H Lactate Dehydrogenase 392 H B-Natriuretic Peptide Microbiology Microbiology Results: Microbiology 04/05/20 21:10 Urine Catheterized - Sigala Catheter Urine Culture - Final No growth. 04/05/20 20:25 Blood - Venous Blood Culture - Preliminary No growth after 48 hours. 04/05/20 20:20 Blood - Venous Blood Culture - Preliminary No growth after 48 hours. 04/05/20 21:10 Sputum - Suctioned Gram Stain - Final 04/05/20 21:10 Sputum - Suctioned Sputum Culture - Final 04/01/20 06:18 Blood - Venous Blood Culture - Final No growth after 5 days. 04/01/20 05:54 Blood - Venous Blood Culture - Final No growth after 5 days. Progress Note: A&P Assessment and plan (1) Hypokalemia due to excessive renal loss of potassium: Status: Acute (2) Hyperchloremia: Status: Acute (3) Hypernatremia: Status: Acute (4) Delirium: Status: Acute (5) Diastolic CHF, acute on chronic: Status: Acute (6) ARDS (adult respiratory distress syndrome): Status: Acute (7) Confusion: Status: Acute (8) Hypogammaglobulinemia: Status: Acute (9) Pneumonia: Status: Acute (10) Acute respiratory failure with hypoxia: Status: Acute (11) COVID-19 virus infection: Problem details: H Status: Acute (12) Acute exacerbation of chronic obstructive pulmonary disease (COPD): Status: Acute (13) Headache: Status: Acute (14) Frequency of micturition: Status: Acute (15) Chronic abdominal pain: Status: Acute (16) GERD with esophagitis: Status: Acute (17) CHF (congestive heart failure): Status: Acute (18) Peripheral neuropathy: Status: Acute (19) Constipation: Status: Acute (20) Diverticulitis: Status: Acute (21) Polyarthralgia: Status: Acute (22) Anemia: Status: Acute (23) Tear of medial meniscus of knee: Status: Acute (24) Primary osteoarthritis of right knee: Status: Acute (25) Cholecystitis: Status: Acute (26) Urinary incontinence: Status: Acute (27) GERD (gastroesophageal reflux disease): Status: Acute (28) Obstructive sleep apnea: Problem details: Cannot tolerate CPAP. Status: Acute (29) BPH (benign prostatic hyperplasia): Problem details: Laser Dr. Alegria 11/2017 Status: Acute (30) Anxiety and depression: Status: Acute (31) Obesity (BMI 30-39.9): Status: Acute (32) Paroxysmal atrial fibrillation: Status: Acute (33) COPD (chronic obstructive pulmonary disease): Status: Acute (34) Hypercholesterolemia: Status: Acute (35) Hypertension: Status: Acute (36) Current use of anticoagulant therapy: Status: Acute Assessment and Plan: So over tonight he will remain sedated and on the ventilator but currently pressure control for synchrony Time Spent With Patient Time: Total time spent is greater than 50% in coordination of care (as documented) at patient's floor/unit and/or counseling patient: Total time spent with greater than 50% in coordination of care (as documented) at patient's floor/unit and/or counseling patient:: 40
[2020-04-09] VITALS (31 sets, daily range): BP systolic 98–194; BP diastolic 51–160; PULSE 58–98; RESP 18–29; TEMP 36.1–37.3; O2SAT 94–99
[2020-04-09] MEDS: 0.9 % Sodium Chloride Flush 3 ML SYRINGE IVFLUSH ×3 (01:32→15:58)
[2020-04-09] MEDS: propofoL 1,000 MG/100 ML VIAL 10.7 MG IVCONT ×3 (01:32→16:29)
[2020-04-09] MEDS: Midazolam HCl/NS 50 MG/50 ML PLAST..BAG IVCONT (01:33)
[2020-04-09] MEDS: Chlorhexidine Gluc Oral Rinse 15 ML MOUTHWASH BUCCAL ×3 (03:07→16:28)
[2020-04-09 05:21] LABS: Base Excess VBG -1.7 mmol/L; HCO3 VBG 21 mmol/L; PCO2 VBG 31 mmHg; PO2 VBG 44 mmHg; pH VBG 7.44 (7.32-7.43)
[2020-04-09 05:37] LABS: MANUAL DIFF FLAG NO
[2020-04-09 05:39] LABS: Basophils Percent Auto 0.2 % (0-2); Hematocrit 28.5 % (42-52); Hemoglobin 9.3 g/dl (14.0-18.0); Imm Gran Abs Auto 0.26 X10*3/uL (0.00-0.03); Imm Gran Pct Auto 2.3 % (0.0-0.4); Lymphocytes Absolute Auto 0.7 X10*3/uL (1.2-4.9); Lymphocytes Percent Auto 6.6 % (20-40); Mean Corpuscular HGB Conc 32.6 g/dl (31.0-36.0); Mean Corpuscular Hemoglobin 28.6 pg (27.0-33.0); Mean Corpuscular Volume 87.7 fL (80-98); Mean Platelet Volume 11.2 fL (9.4-12.4); Monocytes Absolute Auto 0.8 X10*3/uL (0.1-1.2); NRBC Pct Auto 0.3 /100WBC (0.0-0.2); Neutrophils Absolute Auto 9.3 X10*3/uL (2.0-8.3); Neutrophils Percent Auto 83.9 % (45-73); Platelet Count 149 X10*3/uL (160-400); Red Blood Count 3.25 X10*6/uL (4.60-5.80); Red Cell Distribution Width 16.3 % (11.0-16.0); White Blood Count 11.1 X10*3/uL (4.8-10.8)
[2020-04-09 05:45] LABS: INTERNATIONAL NORM RATIO 1.9 (0.9-1.1); Prothrombin Time 22.3 SEC (10.8-13.0)
[2020-04-09 05:48] LABS: Partial Thromboplastin Time 27.1 SEC (24.1-38.0)
[2020-04-09] MEDS: Pantoprazole Sodium 40 MG/10 ML VIAL IVPUSH (05:49)
[2020-04-09 06:03] LABS: C Reactive Protein 1.73 mg/dL (< or = 0.50)
[2020-04-09 06:09] LABS: B Type Natriuretic Peptide 78 pg/mL (<100)
[2020-04-09 06:13] LABS: D Dimer 7195 NG/ML
[2020-04-09 06:17] LABS: Anion Gap 11 (12-20); Blood Urea Nitrogen 31 mg/dL (9-16); Calcium 7.1 mg/dL (8.4-10.2); Carbon Dioxide 24 mmol/L (22-29); Chloride 107 mmol/L (96-108); Creatinine Clr Calc Pharmacy 72.2; Estimated Glomerular Filt Rate > 60; Glucose Random 186 mg/dL (60-115); Lactate Dehydrogenase 402 U/L (118-273); Magnesium 1.9 mg/dL (1.6-2.6); Phosphorus 2.8 mg/dL (2.7-4.5); Potassium 4.5 mmol/L (3.3-5.1); Sodium 137 mmol/L (135-145)
[2020-04-09 06:28] LABS: Ferritin 302 ng/mL (20-250)
[2020-04-09] MEDS: dexAMETHasone sod phosphate 4 MG/ML VIAL 6 MG IVPUSH (07:02)
[2020-04-09] MEDS: Heparin Sodium,Porcine 5,000 UNIT/ML VIAL 5000 UNIT SUBCUT ×2 (08:43→15:59)
--- NOTE | 2020-04-09 10:51 | MHC.CLN ---
F/U PT RECEIVING TF PROMOTE AT MAX GOAL RATE 50CC/HR TO PROVIDE 1200KCALS (1428KCALS WITH SEDATION; 22KCALS/KG BASED ON CMW), 75G PROTEIN (1.1G/KG), 1487CC TOTAL FREE WATER FROM FORMULA AND FLUSHES MONITOR RESIDUALS, TOLERANCE AND LYTES
--- NOTE | 2020-04-09 12:51 | PM.CCPN ---
Subjective Subjective Date of Service: 04/09/20 Interval History: 84-year-old gentleman with underlying history of COPD, chronic abdominal pain CVA, rib fractures, AFib, PVD, diastolic dysfunction diagnosed with COVID and 03/19/2020 admitted to [facility] with dyspnea and progressive hypoxemia on 04/01/2020. Treated with dexamethasone, remdesivir, IVIG. With hospital course complicated by progressive hypoxemia requiring transfer to intensive care unit and intubation on 04/05/2020. With hospital course further complicated by encephalopathy and poor return to baseline with sedation vacation. Physical Exam Vital Signs: Vital Signs: Last Vital Signs Temp 98.1 F 04/09/20 12:00 Pulse 79 04/09/20 12:00 Resp 18 04/09/20 12:00 BP 142/83 H 04/09/20 12:00 Pulse Ox 98 04/09/20 12:00 Body Mass Index 35.9 Const: General: no acute distress and other (Sedated on the vent) Eyes: Sclerae: sclerae normal EOM: EOMs intact bilaterally Neck: Neck: Yes no lymphadenopathy, Yes trachea midline and Yes supple Resp: Auscultation: crackles (Bibasilar) Cardio: Rate: regular rate Rhythm: regular rhythm Heart sounds: no gallops, no murmurs and no rubs GI: Palpation (GI): Soft to palpation and Other GI palpation findings present ( Nontender) Auscultation: normal bowel sounds Extrem: General: No clubbing, No cyanosis and Yes edema (Trace bilateral) Objective Data Labs CBC & Chem 7: 04/09/20 05:05 04/09/20 05:05 Labs: Laboratory Results - last 24 hr 04/09/20 04/09/20 04/09/20 05:05 05:05 05:05 WBC RBC Hgb Hct MCV MCH MCHC RDW Plt Count MPV Immature Gran % (Auto) Neut % (Auto) Lymph % (Auto) [place] % (Auto) Eos % (Auto) Baso % (Auto) Lymph # (Auto) [place] # (Auto) Eos # (Auto) Baso # (Auto) Abs Immat Gran (auto) Absolute Neuts (auto) Absolute Nucleated RBC Nucleated RBC % (auto) PT 22.3 H INR 1.9 H APTT 27.1 D-Dimer 7195 VBG pH VBG pCO2 VBG pO2 VBG HCO3 VBG O2 Saturation VBG Base Excess Sodium 137 Potassium 4.5 Chloride 107 Carbon Dioxide 24 Anion Gap 11 L BUN 31 H Creatinine 0.75 Estim Creat Clear Calc 72.2 Estimated GFR > 60 Random Glucose 186 H Calcium 7.1 L Phosphorus 2.8 Magnesium 1.9 Ferritin 302 H Lactate Dehydrogenase 402 H C-Reactive Protein B-Natriuretic Peptide 78 04/09/20 04/09/20 04/09/20 05:05 05:05 05:05 WBC 11.1 H RBC 3.25 L Hgb 9.3 L Hct 28.5 L MCV 87.7 MCH 28.6 MCHC 32.6 RDW 16.3 H Plt Count 149 L MPV 11.2 Immature Gran % (Auto) 2.3 H Neut % (Auto) 83.9 H Lymph % (Auto) 6.6 L [place] % (Auto) 7.0 Eos % (Auto) 0.0 Baso % (Auto) 0.2 Lymph # (Auto) 0.7 L [place] # (Auto) 0.8 Eos # (Auto) 0.0 Baso # (Auto) 0.0 Abs Immat Gran (auto) 0.26 H Absolute Neuts (auto) 9.3 H Absolute Nucleated RBC 0.030 H Nucleated RBC % (auto) 0.3 H PT INR APTT D-Dimer VBG pH 7.44 H VBG pCO2 31 VBG pO2 44 VBG HCO3 21 VBG O2 Saturation 74.0 VBG Base Excess -1.7 Sodium Potassium Chloride Carbon Dioxide Anion Gap BUN Creatinine Estim Creat Clear Calc Estimated GFR Random Glucose Calcium Phosphorus Magnesium Ferritin Lactate Dehydrogenase C-Reactive Protein 1.73 H B-Natriuretic Peptide Microbiology Microbiology Results: Microbiology 04/05/20 21:10 Urine Catheterized - Sigala Catheter Urine Culture - Final No growth. 04/05/20 20:25 Blood - Venous Blood Culture - Preliminary No growth after 48 hours. 04/05/20 20:20 Blood - Venous Blood Culture - Preliminary No growth after 48 hours. 04/05/20 21:10 Sputum - Suctioned Gram Stain - Final 04/05/20 21:10 Sputum - Suctioned Sputum Culture - Final 04/01/20 06:18 Blood - Venous Blood Culture - Final No growth after 5 days. 04/01/20 05:54 Blood - Venous Blood Culture - Final No growth after 5 days. Progress Note: A&P Assessment and plan (1) Diastolic CHF, acute on chronic: Status: Acute Assessment and Plan: Assessment: 84-year-old gentleman with underlying history of CVA, diastolic dysfunction, COPD admitted with acute hypoxic respiratory failure secondary to COVID-19 ARDS with further progression now requiring intubation and ventilatory support. Plan: Neuro: Encephalopathy, likely critical illness related. Also, may be related to underlying history of cerebrovascular accident. Will consider reimaging if no improvement within next 24-48 hours with sedation vacation. Cardiac: Diastolic dysfunction, acute on chronic, continue with gentle diuresis. Underlying history of AFib. Pulmonary: Acute hypoxic respiratory failure secondary to COVID-19 and acute on chronic diastolic dysfunction. Continue to titrate off ventilatory support as tolerated. Renal: No acute issues. Endo: No acute issues. GI: No acute issues. ID: No acute issues Heme/Onc: No acute issues. Psych: No acute issues. Miscellaneous: No acute issues. Prophylaxis: Heparin, ppi Diet: Tube feeds Critical care time spent: 60 minutes (2) Acute respiratory failure with hypoxia: Status: Acute (3) COVID-19 virus infection: Status: Acute Time Spent With Patient Total time spent with greater than 50% in coordination of care (as documented) at patient's floor/unit and/or counseling patient:: 0 Critical Care Time Critical Care Time (minutes): 60
--- NOTE | 2020-04-09 14:47 | PC.NURSE ---
SEDATION VACATION FROM 1205 - 1400. PT MOVES ALL 4 EXTREMITIES, OPENS EYES - BUT NOT TRACKING OR FOLLOWING COMMANDS. AFEBRILE. VSS. MCARE OUTPUT WNL. NO BM THIS SHIFT AT THIS TIME, ONLY SMEARING. TLC DRESSING CHANGED. BATHED, BARRIER CREAM, Q2H REPO, PREVLON MATTRESS AND PILLOWS UTILIZED. FAMILY UPDATED THIS SHIFT.
[2020-04-09] MEDS: propofoL 1,000 MG/100 ML VIAL 16.06 MG IVCONT (20:56)
[2020-04-10] VITALS (28 sets, daily range): BP systolic 100–220; BP diastolic 53–94; PULSE 57–117; RESP 12–30; TEMP 36.5–37.4; O2SAT 90–98
[2020-04-10] MEDS: 0.9 % Sodium Chloride Flush 3 ML SYRINGE IVFLUSH ×4 (02:03→23:23)
[2020-04-10] MEDS: Heparin Sodium,Porcine 5,000 UNIT/ML VIAL 5000 UNIT SUBCUT ×3 (02:03→16:12)
[2020-04-10] MEDS: Chlorhexidine Gluc Oral Rinse 15 ML MOUTHWASH BUCCAL ×2 (02:04→08:07)
[2020-04-10] MEDS: propofoL 1,000 MG/100 ML VIAL 16.06 MG IVCONT ×2 (02:09→06:12)
[2020-04-10 05:42] LABS: MANUAL DIFF FLAG NO
[2020-04-10 05:45] LABS: Basophils Percent Auto 0.1 % (0-2); Hematocrit 29.3 % (42-52); Hemoglobin 9.5 g/dl (14.0-18.0); Imm Gran Pct Auto 4.3 % (0.0-0.4); Lymphocytes Absolute Auto 0.9 X10*3/uL (1.2-4.9); Mean Corpuscular HGB Conc 32.4 g/dl (31.0-36.0); Mean Corpuscular Hemoglobin 28.4 pg (27.0-33.0); Mean Corpuscular Volume 87.5 fL (80-98); Mean Platelet Volume 10.7 fL (9.4-12.4); Monocytes Absolute Auto 0.9 X10*3/uL (0.1-1.2); Monocytes Percent Auto 7.8 % (2-11); NRBC Pct Auto 0.2 /100WBC (0.0-0.2); Neutrophils Absolute Auto 9.3 X10*3/uL (2.0-8.3); Neutrophils Percent Auto 79.8 % (45-73); Platelet Count 169 X10*3/uL (160-400); Red Blood Count 3.35 X10*6/uL (4.60-5.80); Red Cell Distribution Width 16.6 % (11.0-16.0); White Blood Count 11.6 X10*3/uL (4.8-10.8)
[2020-04-10 05:47] LABS: Base Excess VBG -0.6 mmol/L; HCO3 VBG 21 mmol/L; PCO2 VBG 27 mmHg; PO2 VBG 48 mmHg
[2020-04-10 06:19] LABS: Albumin Level 2.3 g/dL (3.5-5.0); Anion Gap 10 (12-20); Blood Urea Nitrogen 31 mg/dL (9-16); Calcium 7.4 mg/dL (8.4-10.2); Carbon Dioxide 27 mmol/L (22-29); Chloride 110 mmol/L (96-108); Creatinine Clr Calc Pharmacy 74.2; Estimated Glomerular Filt Rate > 60; Glucose Random 159 mg/dL (60-115); Phosphorus 2.5 mg/dL (2.7-4.5); Potassium 4.6 mmol/L (3.3-5.1); Sodium 142 mmol/L (135-145)
[2020-04-10] MEDS: dexAMETHasone sod phosphate 4 MG/ML VIAL 6 MG IVPUSH (08:07)
[2020-04-10] MEDS: Sodium,Potassium Phosphates POWD.PACK 2 PACKET PO (08:59)
[2020-04-10] MEDS: Calcium Gluconate/NaCl,Iso-Osm 2 GM/100 ML PLAST..BAG IV (08:59)
[2020-04-10] MEDS: Albumin Human 25 % 100 ML IV (08:59)
[2020-04-10] MEDS: Metoprolol Tartrate 5 MG/5 ML VIAL IVPUSH (13:10)
--- NOTE | 2020-04-10 13:12 | MHC.CM.PN ---
Pt remains intubated in ICU with COVID: starting a sedation vacation to better assess his mentation. Pt will likely require STR d/t extreme deconditioning. Will re-review on 04/11 for ? PT/OT eval to determine d/c needs.
[2020-04-10] MEDS: Albumin Human 25 % 100 ML 200 ML IV ×2 (13:38→19:59)
[2020-04-10] MEDS: niCARdipine HCL 25 MG in 0.9 % Sodium Chloride 250 ML 52 MG IVCONT (14:15)
--- NOTE | 2020-04-10 14:45 | P.PNCC_ITS ---
Subjective Subjective Date of Service: 04/10/20 Interval History: 84-year-old gentleman with underlying history of COPD, chronic abdominal pain CVA, rib fractures, AFib, PVD, diastolic dysfunction diagnosed with COVID and 03/19/2020 admitted to [facility] with dyspnea and progressive hypoxemia on 04/01/2020. Treated with dexamethasone, remdesivir, IVIG. With hospital course complicated by progressive hypoxemia requiring transfer to intensive care unit and intubation on 04/05/2020. With hospital course further complicated by encephalopathy and poor return to baseline with sedation vacation. No events overnight. Mental status improved overnight, responsive to commands with sedation vacation, extubated uneventfully. Physical Exam Vital Signs: Vital Signs: Last Vital Signs Temp 98.8 F 04/10/20 14:00 Pulse 102 H 04/10/20 14:00 Resp 22 H 04/10/20 14:00 BP 220/92 H 04/10/20 14:00 Pulse Ox 95 04/10/20 14:00 Body Mass Index 35.9 Const: General: no acute distress and lethargic (Arousable, follows commands) Nutritional Appearance: obese Eyes: Sclerae: sclerae normal EOM: EOMs intact bilaterally Neck: Neck: Yes no lymphadenopathy, Yes trachea midline and Yes supple Resp: Effort & Inspection: normal respiratory effort and no respiratory distress Auscultation: crackles (Mild bibasilar) Cardio: Rate: regular rate Rhythm: regular rhythm Heart sounds: no gallops, no murmurs and no rubs GI: Palpation (GI): Soft to palpation and Other GI palpation findings present ( Nontender) Auscultation: normal bowel sounds Extrem: General: No clubbing, No cyanosis and Yes edema (Trace bilateral) Objective Data Labs CBC & Chem 7: 04/10/20 05:25 04/10/20 05:25 Labs: Laboratory Results - last 24 hr 04/10/20 04/10/20 04/10/20 05:25 05:25 05:25 WBC 11.6 H RBC 3.35 L Hgb 9.5 L Hct 29.3 L MCV 87.5 MCH 28.4 MCHC 32.4 RDW 16.6 H Plt Count 169 MPV 10.7 Immature Gran % (Auto) 4.3 H Neut % (Auto) 79.8 H Lymph % (Auto) 8.0 L [place] % (Auto) 7.8 Eos % (Auto) 0.0 Baso % (Auto) 0.1 Lymph # (Auto) 0.9 L [place] # (Auto) 0.9 Eos # (Auto) 0.0 Baso # (Auto) 0.0 Abs Immat Gran (auto) 0.50 H Absolute Neuts (auto) 9.3 H Absolute Nucleated RBC 0.020 H Nucleated RBC % (auto) 0.2 VBG pH 7.50 H VBG pCO2 27 VBG pO2 48 VBG HCO3 21 VBG O2 Saturation 74.0 VBG Base Excess -0.6 Sodium 142 Potassium 4.6 Chloride 110 H Carbon Dioxide 27 Anion Gap 10 L BUN 31 H Creatinine 0.73 Estim Creat Clear Calc 74.2 Estimated GFR > 60 Random Glucose 159 H Calcium 7.4 L Phosphorus 2.5 L Magnesium 2.0 Albumin 2.3 L D Microbiology Microbiology Results: Microbiology 04/05/20 21:10 Urine Catheterized - Sigala Catheter Urine Culture - Final No growth. 04/05/20 20:25 Blood - Venous Blood Culture - Preliminary No growth after 48 hours. 04/05/20 20:20 Blood - Venous Blood Culture - Preliminary No growth after 48 hours. 04/05/20 21:10 Sputum - Suctioned Gram Stain - Final 04/05/20 21:10 Sputum - Suctioned Sputum Culture - Final 04/01/20 06:18 Blood - Venous Blood Culture - Final No growth after 5 days. 04/01/20 05:54 Blood - Venous Blood Culture - Final No growth after 5 days. Progress Note: A&P Assessment and plan (1) Diastolic CHF, acute on chronic: Status: Acute Assessment and Plan: Assessment: 84-year-old gentleman with underlying history of CVA, diastolic dysfunction, COPD admitted with acute hypoxic respiratory failure secondary to COVID-19 ARDS with further progression requiring intubation and ventilatory support. Plan: Neuro: Encephalopathy, likely critical illness related. Also, may be related to underlying history of cerebrovascular accident. Improved significantly, follows commands. Cardiac: Diastolic dysfunction, acute on chronic, continue with gentle diuresis. Underlying history of AFib. Now requiring antihypertensive drip. Pulmonary: Acute hypoxic respiratory failure secondary to COVID-19 and acute on chronic diastolic dysfunction. Extubated this a.m.. Renal: No acute issues. Endo: No acute issues. GI: No acute issues. ID: No acute issues Heme/Onc: No acute issues. Psych: No acute issues. Miscellaneous: No acute issues. Prophylaxis: Heparin, ppi Diet: Tube feeds Critical care time spent: 60 minutes (2) Delirium: Status: Acute (3) COVID-19 virus infection: Status: Acute (4) Acute respiratory failure with hypoxia: Status: Acute (5) COPD (chronic obstructive pulmonary disease): Status: Acute Time Spent With Patient Total time spent with greater than 50% in coordination of care (as documented) at patient's floor/unit and/or counseling patient:: 0 Critical Care Time Critical Care Time (minutes): 60
--- NOTE | 2020-04-10 17:08 | PC.NURSE ---
S/E Afebrile Extubated @ 1230 to 3L NC w/ CO2 monitoring Intermittently following directions, restless at times, pulling wires/lines/etc, mumbled speech BP up to 204/94 - started on Nicardipine gtt - BP stable 152/71 Electrolytes replaced HR 100-110's, sinus - MD aware LS dim throughout, dry weak intermittent cough Last BM 04/09 Sigala output 100cc/hr, yellow Buttocks red, blanchable Bathed, repo q2hr Family updated Plan swallow eval tomorrow Second Pot Phosphate dose held d/t impaired swallowing - MD aware
[2020-04-10] MEDS: niCARdipine HCL 25 MG in 0.9 % Sodium Chloride 250 ML 20.8 MG IVCONT (22:42)
[2020-04-11] VITALS (20 sets, daily range): BP systolic 101–158; BP diastolic 48–80; PULSE 68–114; RESP 16–25; TEMP 36.1–37.7; O2SAT 95–100
[2020-04-11] MEDS: Heparin Sodium,Porcine 5,000 UNIT/ML VIAL 5000 UNIT SUBCUT ×3 (01:06→16:48)
[2020-04-11] MEDS: Chlorhexidine Gluc Oral Rinse 15 ML MOUTHWASH BUCCAL (02:10)
[2020-04-11] MEDS: Albumin Human 25 % 100 ML 200 ML IV (02:11)
[2020-04-11 05:29] LABS: Basophils Percent Auto 0.1 % (0-2); Hematocrit 27.4 % (42-52); Imm Gran Abs Auto 0.41 X10*3/uL (0.00-0.03); Imm Gran Pct Auto 3.7 % (0.0-0.4); Lymphocytes Absolute Auto 1.2 X10*3/uL (1.2-4.9); Lymphocytes Percent Auto 10.8 % (20-40); MANUAL DIFF FLAG NO; Mean Corpuscular HGB Conc 32.8 g/dl (31.0-36.0); Mean Corpuscular Hemoglobin 28.9 pg (27.0-33.0); Mean Corpuscular Volume 88.1 fL (80-98); Mean Platelet Volume 10.1 fL (9.4-12.4); Monocytes Absolute Auto 1.1 X10*3/uL (0.1-1.2); Monocytes Percent Auto 10.1 % (2-11); Neutrophils Absolute Auto 8.3 X10*3/uL (2.0-8.3); Neutrophils Percent Auto 75.3 % (45-73); Platelet Count 172 X10*3/uL (160-400); Red Blood Count 3.11 X10*6/uL (4.60-5.80); Red Cell Distribution Width 16.4 % (11.0-16.0)
[2020-04-11 05:39] LABS: pH VBG 7.53 (7.32-7.43)
[2020-04-11 05:40] LABS: Base Excess VBG 7.3 mmol/L; HCO3 VBG 30 mmol/L; PCO2 VBG 35 mmHg; PO2 VBG 47 mmHg
[2020-04-11 06:18] LABS: Albumin Level 3.7 g/dL (3.5-5.0); Anion Gap 12 (12-20); Blood Urea Nitrogen 23 mg/dL (9-16); Calcium 8.6 mg/dL (8.4-10.2); Carbon Dioxide 29 mmol/L (22-29); Chloride 107 mmol/L (96-108); Creatinine Clr Calc Pharmacy 78.5; Estimated Glomerular Filt Rate > 60; Glucose Random 69 mg/dL (60-115); Magnesium 2.3 mg/dL (1.6-2.6); Phosphorus 3.7 mg/dL (2.7-4.5); Potassium 4.2 mmol/L (3.3-5.1); Sodium 144 mmol/L (135-145)
[2020-04-11] MEDS: dexAMETHasone sod phosphate 4 MG/ML VIAL 6 MG IVPUSH (08:07)
[2020-04-11] MEDS: 0.9 % Sodium Chloride Flush 3 ML SYRINGE IVFLUSH ×2 (08:08→16:48)
[2020-04-11] MEDS: Losartan Potassium 50 MG TABLET 100 MG PO (10:05)
[2020-04-11] MEDS: Furosemide 40 MG TABLET PO (10:06)
[2020-04-11] MEDS: VerapamiL HCL SR 180 MG TABLET.ER PO (10:06)
--- NOTE | 2020-04-11 10:48 | MHC.CLN ---
F/U PT EXTUBATED DIET ADVANCING TO REGULAR-APPROPRIATE MONITOR PO INTAKE
--- NOTE | 2020-04-11 12:03 | ECG_ITS ---
Test Reason : RYTHM CHANGE Blood Pressure : / mmHG Vent. Rate : 098 BPM Atrial Rate : 202 BPM P-R Int : 000 ms QRS Dur : 108 ms QT Int : 416 ms P-R-T Axes : 000 017 133 degrees QTc Int : 531 ms Atrial fibrillation Incomplete right bundle branch block Possible Lateral infarct , age undetermined Possible Inferior infarct , age undetermined Prolonged QT Abnormal ECG When compared to the previous EKG of Atrial fibrillation Present now Referred By: Bijan Perea Electronically Signed By:Jose F Lee
[2020-04-11] MEDS: fentaNYL citrate/PF 100 MCG/2 ML VIAL 25 MCG IVPUSH (12:32)
--- NOTE | 2020-04-11 12:32 | P.PNCC_ITS ---
Subjective Subjective Date of Service: 04/11/20 Interval History: 84-year-old gentleman with underlying history of COPD, chronic abdominal pain CVA, rib fractures, AFib, PVD, diastolic dysfunction diagnosed with COVID and 03/19/2020 admitted to [facility] with dyspnea and progressive hypoxemia on 04/01/2020. Treated with dexamethasone, remdesivir, IVIG. With hospital course complicated by progressive hypoxemia requiring transfer to intensive care unit and intubation on 04/05/2020. With hospital course further complicated by encephalopathy and poor return to baseline with sedation vacation. Extubated 04/10/2020. No events overnight. No events overnight, titrated off Cardene. Physical Exam Vital Signs: Vital Signs: Last Vital Signs Temp 99.1 F 04/11/20 12:00 Pulse 81 04/11/20 12:00 Resp 20 04/11/20 12:00 BP 112/48 L 04/11/20 12:00 Pulse Ox 99 04/11/20 12:00 Body Mass Index 35.9 Const: General: no acute distress, alert and awake Nutritional Appearance: obese Eyes: Sclerae: sclerae normal EOM: EOMs intact bilaterally Neck: Neck: Yes no lymphadenopathy, Yes trachea midline and Yes supple Resp: Effort & Inspection: normal respiratory effort and no respiratory distress Auscultation: clear to auscultation bilaterally Cardio: Rate: regular rate Rhythm: abnormal rhythm irregularly irregular Heart sounds: no gallops, no murmurs and no rubs GI: Palpation (GI): Soft to palpation and Other GI palpation findings present ( Nontender) Auscultation: normal bowel sounds Extrem: General: No clubbing, No cyanosis and Yes edema (Trace bilateral) Objective Data Labs CBC & Chem 7: 04/11/20 05:20 04/11/20 05:20 Labs: Laboratory Results - last 24 hr 04/11/20 04/11/20 04/11/20 05:20 05:20 05:20 WBC 11.0 H RBC 3.11 L Hgb 9.0 L Hct 27.4 L MCV 88.1 MCH 28.9 MCHC 32.8 RDW 16.4 H Plt Count 172 MPV 10.1 Immature Gran % (Auto) 3.7 H Neut % (Auto) 75.3 H Lymph % (Auto) 10.8 L [place] % (Auto) 10.1 Eos % (Auto) 0.0 Baso % (Auto) 0.1 Lymph # (Auto) 1.2 [place] # (Auto) 1.1 Eos # (Auto) 0.0 Baso # (Auto) 0.0 Abs Immat Gran (auto) 0.41 H Absolute Neuts (auto) 8.3 Absolute Nucleated RBC 0.000 Nucleated RBC % (auto) 0.0 VBG pH 7.53 H VBG pCO2 35 VBG pO2 47 VBG HCO3 30 VBG O2 Saturation 77.0 VBG Base Excess 7.3 Sodium 144 Potassium 4.2 Chloride 107 Carbon Dioxide 29 Anion Gap 12 BUN 23 H Creatinine 0.69 Estim Creat Clear Calc 78.5 Estimated GFR > 60 Random Glucose 69 D Calcium 8.6 D Phosphorus 3.7 Magnesium 2.3 Albumin 3.7 D Microbiology Microbiology Results: Microbiology 04/05/20 20:25 Blood - Venous Blood Culture - Final No growth after 5 days. 04/05/20 20:20 Blood - Venous Blood Culture - Final No growth after 5 days. 04/05/20 21:10 Urine Catheterized - Sigala Catheter Urine Culture - Final No growth. 04/05/20 21:10 Sputum - Suctioned Gram Stain - Final 04/05/20 21:10 Sputum - Suctioned Sputum Culture - Final 04/01/20 06:18 Blood - Venous Blood Culture - Final No growth after 5 days. 04/01/20 05:54 Blood - Venous Blood Culture - Final No growth after 5 days. Progress Note: A&P Assessment and plan (1) Acute respiratory failure with hypoxia: Status: Acute Assessment and Plan: Assessment: 84-year-old gentleman with underlying history of CVA, diastolic dysfunction, COPD admitted with acute hypoxic respiratory failure secondary to COVID-19 ARDS with further progression requiring intubation and ventilatory support. Plan: Neuro: Encephalopathy, likely critical illness related. Also, may be related to underlying history of cerebrovascular accident. Essentially resolved. Cardiac: Diastolic dysfunction, acute on chronic, continue with gentle diuresis. Underlying history of AFib. Titrated off Cardene. Restarted on furosemide and losartan. Pulmonary: Acute hypoxic respiratory failure secondary to COVID-19 and acute on chronic diastolic dysfunction. Extubated on 04/10/2020. Underlying supplemental oxygen 2-3 L dependent COPD. Renal: No acute issues. Endo: No acute issues. GI: No acute issues. ID: No acute issues Heme/Onc: Restarted on Coumadin, will follow INR. Psych: No acute issues. Miscellaneous: No acute issues. Prophylaxis: Heparin, ppi Diet: Tube feeds Critical care time spent: 60 minutes (2) COVID-19 virus infection: Status: Acute (3) COPD (chronic obstructive pulmonary disease): Status: Acute (4) Obesity (BMI 30-39.9): Status: Acute (5) Hypertension: Status: Acute (6) Current use of anticoagulant therapy: Status: Acute (7) Afib: Status: Acute Time Spent With Patient Total time spent with greater than 50% in coordination of care (as documented) at patient's floor/unit and/or counseling patient:: 0 Critical Care Time Critical Care Time (minutes): 60
--- NOTE | 2020-04-11 12:35 | P.CDIC_ITS ---
CDI Concurrent Query Service Date: 04/11/20 Documentation Clarification: Please clarify if you are treating a proba ble/suspected/likely or confirmed: Acute encephalopathy Metabolic/toxic encephalopathy Please specify if known or other Provider Response: Other Other Diagnosis: Critical illness encephalopathy, now resolved PLEASE DO NOT DELETE/MODIFY EXISTING CONTENT Additional information is needed in order to code to the highest accuracy and appropriate Severity of Illness (SOI). Please clarify the information noted below in your progress notes and discharge summary. Risk Factors/Clinical Indicators/Treatments AMS, delirium, agitation ICU: altered mental status without apparent metabolic etiology so presumably an encephalopathic process related to covid, acute hypoxic respiratory failure. Assessment - Encephalopathy - poor return to baseline w sedation vacation. Encephalopathy likely critical illness related. CDS: Aneta Dhillon CCS, CDIS Contact Number: [phone] Please Review the information above and exercise your independent professional judgment in responding to the query. If you concur, pleas document in the PROGRESS NOTES and DISCHARGE SUMMARY. If you do not agree with the query, please document in the query above. THIS QUERY IS PART OF THE PERMANENT MEDICAL RECORD
--- NOTE | 2020-04-11 12:41 | PC.NURSE ---
Patient [place] [facility] [place] Restarted on home medications verapimil 180mg & Losartan 100mg PO - Cardene gtt off. Patient bathed, OOB to chair, ate 100% of breakfast. 1157 - patient converted from SR to AFib HR 80-90's - MD notified. Coumadin restarted. 1220 - Patient c/o 10/10 mid chest pain radiating to right arm starting 10mins prior - patient placed back to bed, outreach clinician at bedside. EKG obtained. BP 101/62. Fentanyl 25mch IVP and LR 500c bolus ordered and administered. Patient states pain is better . VSS - HR 70-90's AFib, BP 123/58, O2 100% on 3L NC, RR 24. Patient in bed with eyes closed, easily arousable, asking for water and tolerating po liquids well. Home medication doses to be adjusted per MD - Will continue to monitor.
[2020-04-11] MEDS: Lactated Ringers 500 ML 999 ML IVCONT (12:55)
[2020-04-11] MEDS: Warfarin Sodium 5 MG TABLET PO (16:48)
[2020-04-12] VITALS (10 sets, daily range): BP systolic 140–186; BP diastolic 60–88; PULSE 70–77; RESP 16–20; TEMP 36.1–36.7; O2SAT 97–100
[2020-04-12] MEDS: 0.9 % Sodium Chloride Flush 3 ML SYRINGE IVFLUSH ×4 (01:56→20:08)
[2020-04-12] MEDS: Heparin Sodium,Porcine 5,000 UNIT/ML VIAL 5000 UNIT SUBCUT ×3 (03:28→17:10)
[2020-04-12 05:59] LABS: MANUAL DIFF FLAG NO
[2020-04-12 06:09] LABS: Basophils Percent Auto 0.1 % (0-2); Hematocrit 30.4 % (42-52); Hemoglobin 9.7 g/dl (14.0-18.0); Imm Gran Pct Auto 1.5 % (0.0-0.4); Lymphocytes Absolute Auto 1.3 X10*3/uL (1.2-4.9); Lymphocytes Percent Auto 9.5 % (20-40); Mean Corpuscular HGB Conc 31.9 g/dl (31.0-36.0); Mean Corpuscular Hemoglobin 28.5 pg (27.0-33.0); Mean Corpuscular Volume 89.4 fL (80-98); Mean Platelet Volume 11.3 fL (9.4-12.4); Monocytes Absolute Auto 1.1 X10*3/uL (0.1-1.2); Monocytes Percent Auto 8.5 % (2-11); Neutrophils Absolute Auto 10.8 X10*3/uL (2.0-8.3); Neutrophils Percent Auto 80.4 % (45-73); Platelet Count 208 X10*3/uL (160-400); Red Cell Distribution Width 16.2 % (11.0-16.0); White Blood Count 13.4 X10*3/uL (4.8-10.8)
[2020-04-12 06:15] LABS: INTERNATIONAL NORM RATIO 1.3 (0.9-1.1); Prothrombin Time 15.1 SEC (10.8-13.0)
[2020-04-12 06:44] LABS: Albumin Level 3.3 g/dL (3.5-5.0); Anion Gap 14 (12-20); Blood Urea Nitrogen 26 mg/dL (9-16); Calcium 7.7 mg/dL (8.4-10.2); Carbon Dioxide 26 mmol/L (22-29); Chloride 107 mmol/L (96-108); Creatinine Clr Calc Pharmacy 77.4; Estimated Glomerular Filt Rate > 60; Glucose Random 99 mg/dL (60-115); Potassium 4.4 mmol/L (3.3-5.1); Sodium 143 mmol/L (135-145)
[2020-04-12] MEDS: Losartan Potassium 50 MG TABLET 100 MG PO (09:50)
[2020-04-12] MEDS: carvediloL 12.5 MG TABLET PO (09:51)
[2020-04-12] MEDS: Furosemide 40 MG TABLET PO (09:51)
[2020-04-12] MEDS: VerapamiL HCL SR 180 MG TABLET.ER PO (09:55)
[2020-04-12] MEDS: Sucralfate 1 GM TABLET PO (17:10)
[2020-04-12] MEDS: Warfarin Sodium 5 MG TABLET PO (17:10)
--- NOTE | 2020-04-12 18:05 | HO.PM.IMPN ---
Subjective Subjective Date of Service: 04/13/20 Interval History: Respiratory failure initially due to COVID pneumonia. Review of Systems Shortness of breath hadley seems improving still feels generalized weak No fever overnight Denies any new complaints Physical Exam Vital Signs: Vital Signs: Last Vital Signs Temp 97.5 F 04/12/20 15:24 Pulse 70 04/12/20 15:24 Resp 20 04/12/20 15:24 BP 140/60 H 04/12/20 15:24 Pulse Ox 100 04/12/20 15:24 Body Mass Index 35.9 Physical exam: Constitutional: Not in acute distress. Cvs: rrr, [id number] , no murmur res: Fair air entry ,no rhonchii or wheezing abd: no rebound or guarding ,nt, bs present. ext pulses present , no cyanosis neuro: More awake and alert, nonfocal. Objective Data Current Medications Generic Name Dose Route Start Last Admin Trade Name Freq PRN Reason Stop Dose Admin Carvedilol 12.5 mg 04/12/20 09:00 04/12/20 09:51 Carvedilol 12.5 Mg Tablet PO 12.5 mg BID DEEPAK Administration Protocol Furosemide 40 mg 04/11/20 10:00 04/12/20 09:51 Furosemide 40 Mg Tablet PO 40 mg DAILY DEEPAK Administration Protocol Heparin Sodium (Porcine) 5,000 unit 04/09/20 09:00 04/12/20 17:10 Heparin Sodium,Porcine 5,000 Unit/Ml Vial SUBCUT 5,000 unit Q8H DEEPAK Administration Lactated Ringer's 500 mls @ 999 mls/hr 04/11/20 12:30 04/11/20 13:30 Lr IVCONT Infused .Q31M DEEPAK Infusion Losartan Potassium 100 mg 04/11/20 09:50 04/12/20 09:50 Losartan Potassium 50 Mg Tablet PO 100 mg DAILY DEEPAK Administration Protocol Omeprazole 40 mg 04/13/20 06:30 Omeprazole 40 Mg Capsule.Dr PO DAILY@0630 DEEPAK Sodium Chloride 3 ml 04/06/20 16:00 04/12/20 17:09 0.9 % Sodium Chloride Flush 3 Ml Syringe IVFLUSH 3 ml QSHIFT DEEPAK Administration Sucralfate 1 gm 04/12/20 16:30 04/12/20 17:10 Sucralfate 1 Gm Tablet PO 1 gm BIDAC DEEPAK Administration Verapamil HCl 180 mg 04/12/20 09:00 04/12/20 09:55 Verapamil Hcl Sr 180 Mg Tablet.Er PO 180 mg DAILY DEEPAK Administration Protocol Warfarin Sodium 5 mg 04/11/20 18:00 04/12/20 17:10 Warfarin Sodium 5 Mg Tablet PO 5 mg DAILY@1800 DEEPAK Administration Labs CBC & Chem 7: 04/12/20 05:14 04/12/20 05:14 Microbiology Microbiology Results: Microbiology 04/05/20 20:25 Blood - Venous Blood Culture - Final No growth after 5 days. 04/05/20 20:20 Blood - Venous Blood Culture - Final No growth after 5 days. 04/05/20 21:10 Urine Catheterized - Sigala Catheter Urine Culture - Final No growth. 04/05/20 21:10 Sputum - Suctioned Gram Stain - Final 04/05/20 21:10 Sputum - Suctioned Sputum Culture - Final 04/01/20 06:18 Blood - Venous Blood Culture - Final No growth after 5 days. 04/01/20 05:54 Blood - Venous Blood Culture - Final No growth after 5 days. Assessment and Plan (1) ARDS (adult respiratory distress syndrome): Status: Acute (2) Confusion: Status: Acute Assessment and Plan: 1.admitted with bilateral COVID-19 pneumonitis and ARDS developing progressive acute on chronic hypercarbic and hypoxic respiratory failure: Subsequently went to ICU and got intubated. I see course was complicated by delirium also. Acute hypoxic respiratory failure secondary to COVID pneumonia, also treated for the acute on chronic diastolic CHF. as per ICU chart review -Treated with dexamethasone, remdesivir, IVIG. With hospital course complicated by progressive hypoxemia requiring transfer to intensive care unit and intubation on 04/05/2020. With hospital course further complicated by encephalopathy and poor return to baseline with sedation. Status post [id number]/16/2021. Patient was on Cardenedrip, Lasix Mental status seems to be improving hypoxia is alos improving 2. COPD: Continue Breo Continue albuterol as needed 3.Hypertension: Of Cardene drip. continue with carvedilol, losartan,verapamil 4.GERD Continue PPI 5.BPH continue with flomax home dose 6.Paroxysmal atrial fibrillation: Continue Coreg Continue verapamil Hold Coumadin given INR supratherapeutic , on warfarin -will adjust. DVT prophylax INR supratherapeutic hold Coumadin
[2020-04-12] MEDS: Warfarin Sodium 1 MG TABLET PO (18:35)
[2020-04-13] VITALS (13 sets, daily range): BP systolic 117–182; BP diastolic 62–86; PULSE 67–111; RESP 16–20; TEMP 36.1–37.6; O2SAT 92–97
[2020-04-13] MEDS: Heparin Sodium,Porcine 5,000 UNIT/ML VIAL 5000 UNIT SUBCUT ×3 (03:11→17:51)
[2020-04-13] MEDS: guaiFEN/Codeine SF 200/20/10ML 10 ML LIQUID 5 ML PO (03:31)
[2020-04-13] MEDS: Fluticasone/Vilanterol 200/25 BLST.W.DEV 1 PUFF INHALE (07:13)
[2020-04-13] MEDS: Furosemide 40 MG TABLET PO (08:14)
[2020-04-13] MEDS: Omeprazole 40 MG CAPSULE.DR PO (08:14)
[2020-04-13] MEDS: Sucralfate 1 GM TABLET PO ×2 (08:14→17:50)
[2020-04-13] MEDS: carvediloL 12.5 MG TABLET PO ×2 (08:15→20:44)
[2020-04-13] MEDS: Losartan Potassium 50 MG TABLET 100 MG PO (08:15)
[2020-04-13] MEDS: VerapamiL HCL SR 180 MG TABLET.ER PO (08:15)
[2020-04-13] MEDS: 0.9 % Sodium Chloride Flush 3 ML SYRINGE IVFLUSH ×3 (08:16→20:44)
[2020-04-13 08:49] LABS: INTERNATIONAL NORM RATIO 1.8 (0.9-1.1); Prothrombin Time 21.3 SEC (10.8-13.0)
--- NOTE | 2020-04-13 09:50 | MHC.CM.PN ---
CM spoke with patient's /HCP [place] to discuss discharge plan since PT recommends [facility]. [facility]'s 1st choice is [facility]. Referrals made via [facility]. Patient will need BLS transport. CM will continue to follow for discharge needs.
--- NOTE | 2020-04-13 14:04 | MHC.CLN ---
F/U 75% AVG PO DIET RX: REGULAR-APPROPRIATE FOLLOWING
--- NOTE | 2020-04-13 14:44 | MHC.CM.PN ---
Patient has been accepted to [facility]. Transport set up for Thursday04/14/2020 at 12:30 pm. [place] is aware.
--- NOTE | 2020-04-13 15:53 | HO.PM.IMPN ---
Subjective Subjective Date of Service: 04/13/20 Interval History: Respiratory failure initially due to COVID pneumonia. Subtherapeutic INR, generalized weak. Review of Systems Patient still feels weak, denies any chest pain, Was trying to get out of the bed and it helped him to sit on the floor since he has multiple assist. Physical Exam Vital Signs: Vital Signs: Last Vital Signs Temp 98.6 F 04/13/20 15:18 Pulse 67 04/13/20 15:18 Resp 20 04/13/20 15:18 BP 133/67 04/13/20 15:18 Pulse Ox 95 04/13/20 15:18 Body Mass Index 35.9 Physical exam Cvs: rrr, [id number] , no murmur res: clear to auscultation ,no rhonchii or wheezing abd: no rebound or guarding ,nt, bs present. ext pulses present , no cyanosis neuro: nonfocal. Objective Data Current Medications Generic Name Dose Route Start Last Admin Trade Name Freq PRN Reason Stop Dose Admin Albuterol Sulfate 1 puff 04/12/20 18:16 Albuterol Sulfate 90 Mcg 8 Gm Inhaler INHALE RQ4H PRN Wheezing Carvedilol 12.5 mg 04/12/20 09:00 04/13/20 08:15 Carvedilol 12.5 Mg Tablet PO 12.5 mg BID DEEPAK Administration Protocol Fluticasone/Vilanterol 1 puff 04/13/20 08:00 04/13/20 07:13 Fluticasone/Vilanterol 200/25 Blst.W.Dev INHALE 1 puff RDAILY DEEPAK Administration Furosemide 40 mg 04/11/20 10:00 04/13/20 08:14 Furosemide 40 Mg Tablet PO 40 mg DAILY DEEPAK Administration Protocol Guaifenesin/Codeine Phosphate 5 ml 04/13/20 03:20 04/13/20 03:31 Guaifen/Codeine Sf 200/20/10ml 10 Ml Liquid PO 5 ml Q6H PRN Administration Cough Heparin Sodium (Porcine) 5,000 unit 04/09/20 09:00 04/13/20 08:15 Heparin Sodium,Porcine 5,000 Unit/Ml Vial SUBCUT 5,000 unit Q8H DEEPAK Administration Losartan Potassium 100 mg 04/11/20 09:50 04/13/20 08:15 Losartan Potassium 50 Mg Tablet PO 100 mg DAILY DEEPAK Administration Protocol Omeprazole 40 mg 04/13/20 06:30 04/13/20 08:14 Omeprazole 40 Mg Capsule.Dr PO 40 mg DAILY@0630 DEEPAK Administration Sodium Chloride 3 ml 04/06/20 16:00 04/13/20 14:54 0.9 % Sodium Chloride Flush 3 Ml Syringe IVFLUSH 3 ml QSHIFT DEEPAK Administration Sucralfate 1 gm 04/12/20 16:30 04/13/20 08:14 Sucralfate 1 Gm Tablet PO 1 gm BIDAC DEEPAK Administration Verapamil HCl 180 mg 04/12/20 09:00 04/13/20 08:15 Verapamil Hcl Sr 180 Mg Tablet.Er PO 180 mg DAILY DEEPAK Administration Protocol Warfarin Sodium 5 mg 04/11/20 18:00 04/12/20 17:10 Warfarin Sodium 5 Mg Tablet PO 5 mg DAILY@1800 DEEPAK Administration Labs CBC & Chem 7: 04/12/20 05:14 04/12/20 05:14 Microbiology Microbiology Results: Microbiology 04/05/20 20:25 Blood - Venous Blood Culture - Final No growth after 5 days. 04/05/20 20:20 Blood - Venous Blood Culture - Final No growth after 5 days. 04/05/20 21:10 Urine Catheterized - Sigala Catheter Urine Culture - Final No growth. 04/05/20 21:10 Sputum - Suctioned Gram Stain - Final 04/05/20 21:10 Sputum - Suctioned Sputum Culture - Final 04/01/20 06:18 Blood - Venous Blood Culture - Final No growth after 5 days. 04/01/20 05:54 Blood - Venous Blood Culture - Final No growth after 5 days. Assessment and Plan (1) Acute respiratory failure with hypoxia: Status: Acute (2) Pneumonia: Status: Acute (3) ARDS (adult respiratory distress syndrome): Status: Acute (4) Confusion: Status: Acute Assessment and Plan: 1.admitted with bilateral COVID-19 pneumonitis and ARDS developing progressive acute on chronic hypercarbic and hypoxic respiratory failure: Subsequently went to ICU and got intubated. I see course was complicated by delirium also. Acute hypoxic respiratory failure secondary to COVID pneumonia, also treated for the acute on chronic diastolic CHF. as per ICU chart review -Treated with dexamethasone, remdesivir, IVIG. With hospital course complicated by progressive hypoxemia requiring transfer to intensive care unit and intubation on 04/05/2020. With hospital course further complicated by encephalopathy and poor return to baseline with sedation.in addition Patient was on Cardenedrip, Lasix. Status post [id number]/16/2021. Mental status seems to be improving hypoxia is also improving continue lasix , losatran , coreg.oxygen support. 2. COPD: Continue Breo, albuterol as needed 3.Hypertension: continue with carvedilol, losartan. 4.GERD:Continue PPI. 5.BPH:continue with flomax home dose. 6.Paroxysmal atrial fibrillation: Continue Coreg, verapamil continue warfrain: inr subtherapeutic. DVT prophylax INR subtherpaeutic-continue Coumadin.
[2020-04-13] MEDS: Warfarin Sodium 5 MG TABLET PO (17:50)
[2020-04-14] MEDS: Heparin Sodium,Porcine 5,000 UNIT/ML VIAL 5000 UNIT SUBCUT ×2 (01:48→08:43)
[2020-04-14 03:25] VITALS: BP 135/72; PULSE 69; RESP 18; TEMP 36.7; O2SAT 93
[2020-04-14] MEDS: Omeprazole 40 MG CAPSULE.DR PO (05:42)
[2020-04-14 06:59] LABS: Hematocrit 31.4 % (42-52); Mean Corpuscular HGB Conc 31.8 g/dl (31.0-36.0); Mean Platelet Volume 11.1 fL (9.4-12.4); Platelet Count 216 X10*3/uL (160-400); Red Blood Count 3.45 X10*6/uL (4.60-5.80); Red Cell Distribution Width 15.9 % (11.0-16.0); White Blood Count 10.7 X10*3/uL (4.8-10.8)
[2020-04-14 07:15] LABS: Anion Gap 13 (12-20); Blood Urea Nitrogen 33 mg/dL (9-16); Calcium 7.7 mg/dL (8.4-10.2); Carbon Dioxide 28 mmol/L (22-29); Chloride 107 mmol/L (96-108); Creatinine Clr Calc Pharmacy 68.5; Estimated Glomerular Filt Rate > 60; Glucose Random 75 mg/dL (60-115); Potassium 3.6 mmol/L (3.3-5.1); Sodium 144 mmol/L (135-145)
[2020-04-14 08:00] VITALS: BP 130/81; PULSE 82; RESP 18; TEMP 36.3; O2SAT 95
[2020-04-14 08:41] VITALS: BP 135/72; PULSE 69
[2020-04-14] MEDS: Losartan Potassium 50 MG TABLET 100 MG PO (08:41)
[2020-04-14 08:42] VITALS: BP 135/72; PULSE 69
[2020-04-14] MEDS: Furosemide 40 MG TABLET PO (08:42)
[2020-04-14] MEDS: Sucralfate 1 GM TABLET PO (08:42)
[2020-04-14] MEDS: VerapamiL HCL SR 180 MG TABLET.ER PO (08:42)
[2020-04-14] MEDS: carvediloL 12.5 MG TABLET PO (08:42)
[2020-04-14] MEDS: 0.9 % Sodium Chloride Flush 3 ML SYRINGE IVFLUSH (08:45)
--- NOTE | 2020-04-14 10:14 | P.DS_ITS ---
DS: Providers Provider Date of Service: 04/14/20 Date of admission: 04/01/20 09:10 Primary care physician: Unknown Physician Consults: 04/01/20 18:44 Consult to Infectious Diseases Routine Consulting Provider: Marilyn Quintero Reason for consultation: acute respiratory failure due to covid Has provider been notified: No DS: Diagnosis Discharge Diagnosis (1) COVID-19 virus infection: Status: Acute (2) Acute respiratory failure with hypoxia: Status: Acute (3) ARDS (adult respiratory distress syndrome): Status: Acute (4) Pneumonia: Status: Acute (5) Toxic metabolic encephalopathy: Status: Acute DS: Medications Discharge Medications Home Medications: Home Medications Medication Instructions Recorded Confirmed albuterol sulfate 90 mcg/actuation 2 puff INHALATION Q4-6H PRN 12/15/19 03/16/20 aerosol inhaler atorvastatin 80 mg tablet 80 mg PO DAILY 12/15/19 04/01/20 warfarin 2.5 mg PO SUTUWETHSA@1800 02/08/20 03/16/20 warfarin 5 mg PO MOWEFR@1800 02/08/20 03/16/20 Previous Rx's Medication Instructions Recorded fluticasone furoate 200 1 ea PO DAILY #56 cap 01/24/20 mcg-vilanterol 25 mcg/dose inhalation powder pantoprazole 40 mg tablet,delayed 40 mg PO DAILY #30 tab 01/24/20 release bisacodyl 5 mg tablet,delayed 10 mg PO ONCE 1 Days #2 tab 02/16/20 release docusate sodium 100 mg capsule 100 mg PO DAILY #30 cap 03/30/20 losartan 100 mg tablet 100 mg PO DAILY #28 tab 03/30/20 [id number] tablet 1 tab PO DAILY #28 tab 03/30/20 tamsulosin 0.4 mg capsule 0.4 mg PO DAILY #28 cap 03/30/20 verapamil 180 mg 24 hr 180 mg PO DAILY #28 cap 03/30/20 capsule,extended release carvedilol 12.5 mg PO BID #60 tab 04/14/20 furosemide 40 mg PO DAILY #30 tab 04/14/20 sucralfate 1 g PO BIDAC #60 tab 04/14/20 DS: Summary Hospital Course Hospital Course: Patient presented with respiratory symptoms and was diagnosed with COVID-19 pneumonia. He was started on supplemental oxygen and IV Decadron. Unfortunately, his mentation and respiratory status worsened and was ultimately transferred to the intensive care unit where he required intubation and mechanical ventilation. He continued treatment with steroids, remdesivir and IVIG were also added reportedly. Fortunately with these measures, patient melodie nued to improve and was able to be successfully extubated. He was further monitored on the floor for several days past this and his oxygen requirements remained stable at 3 L nasal cannula. Mentation also appeared to be towards baseline. [facility] to [facility] further recovery. His oxygen can be weaned as tolerated. In regards to his AFib, INR level is 2.6 (up from 1.8 the day before) on the day of discharge and this can be monitored serially with goal of INR between 2- 3. Anticipate less than 30 days at SNF Time Spent with Patient Time attestation: Total time spent providing and/or coordinating discharge services: Discharge coordination time: Greater than 30 minutes Physical Exam Vital Signs: Vital Signs: Last Vital Signs Temp 97.4 F 04/14/20 08:00 Pulse 69 04/14/20 08:42 Resp 18 04/14/20 08:00 BP 135/72 04/14/20 08:42 Pulse Ox 95 04/14/20 08:00 Body Mass Index 35.9 Const: Other: General - no acute distress, appears comfortable Cardiovascular - s1s2 Lungs - normal respiratory effort, clear to auscultation bilaterally, no wheezing Abdomen - soft, nontender, no rebound or guarding Extremities - no edema bilaterally Neuro - awake and alert, no focal deficits DS: Data Data Completed and Pending Labs on day of discharge: Laboratory Results - last 24 hr 04/14/20 04/14/20 05:47 05:47 WBC 10.7 RBC 3.45 L Hgb 10.0 L Hct 31.4 L MCV 91.0 MCH 29.0 MCHC 31.8 RDW 15.9 Plt Count 216 MPV 11.1 Absolute Nucleated RBC 0.000 Nucleated RBC % (auto) 0.0 Sodium 144 Potassium 3.6 Chloride 107 Carbon Dioxide 28 Anion Gap 13 BUN 33 H Creatinine 0.79 Estim Creat Clear Calc 68.5 Estimated GFR > 60 Random Glucose 75 Calcium 7.7 L Discharge Plan Discharge Patient Disposition: [facility] Referrals: [facility] [Outside] Physician,Unknown [Primary Care Provider] - Discharge Medications: New carvedilol 12.5 mg Tablet 12.5 mg PO BID Qty: 60 RF: 0 furosemide 40 mg Tablet 40 mg PO DAILY Qty: 30 RF: 0 sucralfate 1 gram Tablet 1 g PO BIDAC Qty: 60 RF: 0 Continued pantoprazole 40 mg tablet,delayed release (DR/EC) 40 mg PO DAILY Qty: 30 RF: 4 fluticasone furoate-vilanterol [Breo Ellipta] 200-25 mcg/dose blister with device 1 ea PO DAILY Qty: 56 RF: 2 bisacodyl [Dulcolax (bisacodyl)] 5 mg tablet,delayed release (DR/EC) 10 mg PO ONCE 1 Days Qty: 2 RF: 0 [id number] [Cerovite Senior] Tablet 1 tab PO DAILY Qty: 28 RF: 11 losartan 100 mg tablet 100 mg PO DAILY Qty: 28 RF: 5 tamsulosin 0.4 mg capsule 0.4 mg PO DAILY Qty: 28 RF: 11 verapamil 180 mg capsule,ext rel. pellets 24 hr 180 mg PO DAILY Qty: 28 RF: 11 docusate sodium 100 mg capsule 100 mg PO DAILY Qty: 30 RF: 3 warfarin 2.5 mg Tablet 2.5 mg PO SUTUWETHSA@1800 RF: 0 warfarin 5 mg Tablet 5 mg PO MOWEFR@1800 RF: 0 atorvastatin 80 mg tablet 80 mg PO DAILY RF: 0 albuterol sulfate [ProAir HFA] 90 mcg/actuation HFA aerosol inhaler 2 puff inhalation Q4-6H PRN (Reason: Shortness Of Breath) RF: 0 Discontinued chlorthalidone 25 mg tablet 25 mg PO QAM Qty: 28 RF: 5 furosemide 20 mg tablet 20 mg PO DAILY Qty: 28 RF: 11 carvedilol 25 mg tablet 25 mg PO BID RF: 0 sucralfate 1 gram tablet 1 g PO DAILY Qty: 30 RF: 2 Discharge Orders: Discharge Order (Routine); Ordered 04/14/20 Ordered By: Leonardo Crowe Diet: advance to usual diet Activity on Discharge: As tolerated Stand Alone Forms: Patient Portal Discharge page Care Plan Goals: To stay healthy and out of the hospital. Health Concerns: COVID Respiratory Failure with Hypoxia Plan of Treatment: Continue recovery at SNF. Continue to use oxygen and wean as tolerated
[2020-04-14 10:50] LABS: INTERNATIONAL NORM RATIO 2.6 (0.9-1.1); Prothrombin Time 31.5 SEC (10.8-13.0)
== END 2020-04-14 14:11 | disposition skilled nursing facility (03) | DRG 207 ==
LOC: HO.ED 07:20 → HO.EDOVER 09:40 → HO.IMC 23:02 → HO.ICU 04-05 18:05 → HO.IMC 04-11 17:53
PROVIDERS: Hospitalist; Internal Medicine; Internal Medicine Cardiovascular Disease; Internal Medicine Pulmonary Disease; Physician Assistant; Admitting Provider Internal Medicine; Emergency Provider Emergency Medicine; PCP Internal Medicine; Visit Provider Family Medicine
DX: U07.1 COVID-19 (principal); J12.82 Pneumonia due to coronavirus disease 2019; J80 Acute respiratory distress syndrome; G92 Toxic encephalopathy; J44.1 Chronic obstructive pulmonary disease with (acute) exacerbation; J44.0 Chronic obstructive pulmonary disease with (acute) lower respiratory infection; F05 Delirium due to known physiological condition; I50.32 Chronic diastolic (congestive) heart failure; J96.11 Chronic respiratory failure with hypoxia; F41.9 Anxiety disorder, unspecified; I11.0 Hypertensive heart disease with heart failure; K21.9 Gastro-esophageal reflux disease without esophagitis; N40.1 Benign prostatic hyperplasia with lower urinary tract symptoms; N39.498 Other specified urinary incontinence; I48.0 Paroxysmal atrial fibrillation; Z96.641 Presence of right artificial hip joint; Z96.652 Presence of left artificial knee joint; G47.33 Obstructive sleep apnea (adult) (pediatric); E66.9 Obesity, unspecified; Z68.36 Body mass index [BMI] 36.0-36.9, adult; Z87.891 Personal history of nicotine dependence; Z86.73 Personal history of transient ischemic attack (TIA), and cerebral infarction without residual deficits; Z99.81 Dependence on supplemental oxygen; E78.00 Pure hypercholesterolemia, unspecified; F32.9 Major depressive disorder, single episode, unspecified; Z79.01 Long term (current) use of anticoagulants; Z79.52 Long term (current) use of systemic steroids; Z79.899 Other long term (current) drug therapy
CPT/HCPCS: 11104; 36415; 36600; 70450; 71045; 71250; 80048; 80076; 81001; 82040; 82533; 82728; 82784; 82803; 82947; 83605; 83615; 83690; 83735; 83880; 84100; 84439; 84443; 84481; 84484; 85007; 85025; 85027; 85379; 85384; 85610; 85730; 86140; 86850; 86900; 86901; 87040; 87070; 87086; 87205; 93005; 94002; 94003; 94799; 97110; 97163; 97530; 99285; J0610; J0696; J1100; J1200; J1572; J2060; J2185; J2250; J3010; J3370; J3490; P9047

== ENCOUNTER 2020-04-16 07:07 | Outpatient (REF) | payer MEDICARE, SELFPAY ==
[2020-04-16 07:47] LABS: INTERNATIONAL NORM RATIO 2.7 (0.9-1.1); Prothrombin Time 31.8 SEC (10.8-13.0)
[2020-04-16 08:13] LABS: Basophils Percent Auto 0.1 % (0-2); Eosinophils Absolute Auto 0.2 X10*3/uL (0.0-0.4); Eosinophils Percent Auto 1.7 % (0-4); Hematocrit 31.4 % (42-52); Imm Gran Abs Auto 0.08 X10*3/uL (0.00-0.03); Imm Gran Pct Auto 0.7 % (0.0-0.4); Lymphocytes Percent Auto 9.4 % (20-40); MANUAL DIFF FLAG SCAN; Mean Corpuscular HGB Conc 31.8 g/dl (31.0-36.0); Mean Corpuscular Hemoglobin 29.1 pg (27.0-33.0); Mean Corpuscular Volume 91.3 fL (80-98); Mean Platelet Volume 12.5 fL (9.4-12.4); Monocytes Absolute Auto 0.6 X10*3/uL (0.1-1.2); Monocytes Percent Auto 5.4 % (2-11); Neutrophils Absolute Auto 9.1 X10*3/uL (2.0-8.3); Neutrophils Percent Auto 82.7 % (45-73); PLT CLUMP 1; Red Blood Count 3.44 X10*6/uL (4.60-5.80); Red Cell Distribution Width 15.9 % (11.0-16.0); SCAN SMEAR FLAG 1
[2020-04-16 08:19] LABS: Alanine Aminotransferase 72 U/L (0-40); Albumin Level 3.3 g/dL (3.5-5.0); Alkaline Phosphatase 68 U/L (39-117); Anion Gap 19 (12-20); Aspartate Amino Transferase 42 U/L (5-37); Bilirubin Total 0.8 mg/dL (0.0-1.0); Blood Urea Nitrogen 38 mg/dL (9-16); Calcium 7.7 mg/dL (8.4-10.2); Carbon Dioxide 24 mmol/L (22-29); Chloride 108 mmol/L (96-108); Estimated Glomerular Filt Rate > 60; Glucose Random 72 mg/dL (60-115); Potassium 3.5 mmol/L (3.3-5.1); Sodium 147 mmol/L (135-145); Total Protein 6.3 g/dL (6.5-8.0)
[2020-04-16 08:57] LABS: SLIDE REVIEW VERIFIED
== END 2020-04-16 07:08 | disposition home or self-care (01) ==
LOC: HO.MMNH1L 07:07
PROVIDERS: Visit Provider Family Medicine
DX: I48.91 Unspecified atrial fibrillation (principal); J18.9 Pneumonia, unspecified organism
CPT/HCPCS: 36415; 80053; 85025; 85610

== ENCOUNTER 2020-04-18 | Outpatient (REF) | payer MEDICARE, SELFPAY ==
[2020-04-18 09:41] LABS: INTERNATIONAL NORM RATIO 2.2 (0.9-1.1); Prothrombin Time 26.8 SEC (10.8-13.0)
== END 2020-04-18 00:01 | disposition home or self-care (01) ==
LOC: HO.MMNH1L
PROVIDERS: Visit Provider Family Medicine
DX: I48.91 Unspecified atrial fibrillation (principal); Z79.01 Long term (current) use of anticoagulants; Z51.81 Encounter for therapeutic drug level monitoring
CPT/HCPCS: 36415; 85610

== ENCOUNTER 2020-04-23 09:49 | Outpatient (REF) | payer MEDICARE, SELFPAY ==
[2020-04-23 08:30] LABS: Hematocrit 26.4 % (42-52); Hemoglobin 8.6 g/dl (14.0-18.0); Mean Corpuscular HGB Conc 32.6 g/dl (31.0-36.0); Mean Corpuscular Hemoglobin 29.7 pg (27.0-33.0); Mean Platelet Volume 10.7 fL (9.4-12.4); Platelet Count 173 X10*3/uL (160-400); Red Cell Distribution Width 16.6 % (11.0-16.0); White Blood Count 5.6 X10*3/uL (4.8-10.8)
[2020-04-23 08:33] LABS: INTERNATIONAL NORM RATIO 2.5 (0.9-1.1); Prothrombin Time 30.4 SEC (10.8-13.0)
[2020-04-23 09:51] LABS: Anion Gap 14 (12-20); Blood Urea Nitrogen 16 mg/dL (9-16); Calcium 7.3 mg/dL (8.4-10.2); Carbon Dioxide 24 mmol/L (22-29); Chloride 109 mmol/L (96-108); Estimated Glomerular Filt Rate > 60; Glucose Random 71 mg/dL (60-115); Potassium 2.9 mmol/L (3.3-5.1); Sodium 144 mmol/L (135-145)
== END 2020-04-23 09:50 | disposition home or self-care (01) ==
LOC: HO.MMNH1L 09:49
PROVIDERS: Visit Provider Family Medicine
DX: I48.91 Unspecified atrial fibrillation (principal); J18.9 Pneumonia, unspecified organism
CPT/HCPCS: 36415; 80048; 85027; 85610

== ENCOUNTER 2020-04-30 00:12 | Outpatient (REF) | payer MEDICARE, SELFPAY ==
[2020-04-30 07:39] LABS: Hemoglobin 9.2 g/dl (14.0-18.0); Mean Corpuscular HGB Conc 32.9 g/dl (31.0-36.0); Mean Corpuscular Hemoglobin 29.5 pg (27.0-33.0); Mean Corpuscular Volume 89.7 fL (80-98); Mean Platelet Volume 10.6 fL (9.4-12.4); Platelet Count 308 X10*3/uL (160-400); Red Blood Count 3.12 X10*6/uL (4.60-5.80); Red Cell Distribution Width 15.9 % (11.0-16.0); White Blood Count 7.7 X10*3/uL (4.8-10.8)
[2020-04-30 08:01] LABS: Anion Gap 13 (12-20); Blood Urea Nitrogen 11 mg/dL (9-16); Carbon Dioxide 27 mmol/L (22-29); Chloride 104 mmol/L (96-108); Estimated Glomerular Filt Rate > 60; Glucose Random 108 mg/dL (60-115); Sodium 142 mmol/L (135-145)
[2020-04-30 08:48] LABS: Potassium 2.4 mmol/L (3.3-5.1)
== END 2020-04-30 00:13 | disposition home or self-care (01) ==
LOC: HO.MMNH1L 00:12
PROVIDERS: Visit Provider Family Medicine
DX: I48.91 Unspecified atrial fibrillation (principal); J18.9 Pneumonia, unspecified organism
CPT/HCPCS: 36415; 80048; 85027; 85610

== ENCOUNTER 2020-05-03 09:45 | Emergency (ER) | payer MEDICARE, SELFPAY ==
--- NOTE | ~2020-05-03 | US_ITS ---
EXAMINATION: US ABDOMEN LIMITED CLINICAL INFORMATION: Right upper quadrant/epigastric abdominal pain x4 days. COMPARISON: None TECHNIQUE: Real-time imaging of the right upper quadrant abdominal viscera. FINDINGS: PANCREAS: Normal. LIVER: Normal. The liver is normal in size. The liver contour is normal. Parenchymal echogenicity is normal. No focal hepatic lesion. There is no intrahepatic biliary duct dilatation seen. GALLBLADDER: There is echogenic bile with sludge and mild gallbladder wall thickening measuring 0.52 cm. No echogenic stones are pericholecystic fluid collection seen. COMMON BILE DUCT: Normal in caliber measuring 0.25 cm in diameter. RIGHT KIDNEY: No hydronephrosis. No renal calculi or focal parenchymal lesions. The kidney measures there is echogenic cyst in the lower pole measuring 1.6 x 1.0 x 1.1 cm in maximum dimension. FREE FLUID: None. US/US abdomen limited IMPRESSION: Echogenic sludge with gravel. Mild gallbladder wall thickening measuring 0.52 cm. Small anechoic cyst lower pole measuring 1.6 cm.
--- NOTE | ~2020-05-03 | XR_ITS ---
EXAMINATION: XR CHEST CLINICAL INFORMATION: Intermittent cough; history COVID in February 2020. COMPARISON: None TECHNIQUE: Sitting AP and lateral views of the chest are obtained. FINDINGS: There are low lung volumes with inspiration to the eighth posterior intercostal space. Patchy bilateral streaky groundglass opacities are present upper and lower zones slightly increased from prior exam 04/07/2020. There is no effusion. There is no pneumothorax or pneumomediastinum. The heart is normal in size. No acute bony abnormality. Chronic changes right shoulder again seen. XR/XR chest 2V IMPRESSION: Patchy bilateral streaky groundglass opacities slightly increased from prior exam 04/07/2020. Low lung volumes.
--- NOTE | ~2020-05-03 | CT_ITS ---
EXAMINATION: CT ABDOMEN AND PELVIS WITHOUT CONTRAST CLINICAL INFORMATION: Epigastric and right upper quadrant pain. COMPARISON: Abdominal ultrasound 05/03/2020, CT abdomen 02/08/2020; upper GI series 03/17/2019. TECHNIQUE: Multidetector volumetric imaging was performed from the superior aspect of the liver through the pubic symphysis. Sagittal and coronal reformatted images were obtained on the technologist's workstation. No oral or intravenous contrast. This CT examination was performed using dose optimization techniques as appropriate, variously including the following: *Automated exposure control *Adjustment of mA and/or kV according to patient size (this includes techniques or standardized protocols for targeted exams where dose is matched to indication/reason for exam; i.e. extremities or head) *Use of iterative reconstruction technique DLP: 797 mGy-cm FINDINGS: LUNG BASES: Scattered patchy airspace opacities and coarsening interstitial markings. Small right effusion with dependent atelectasis. LIVER, GALLBLADDER, AND BILIARY TREE: The liver is normal in size and smooth in contour and homogeneous. The gallbladder is distended to 5 cm in diameter. There is circumferential gallbladder wall thickening and stranding in the adjacent mesentery extending towards the descending duodenum and pancreatic head. No fluid collection. There are no visible calculi. No intrahepatic ductal dilatation. Common duct unremarkable. PANCREAS: Normal in size. No pancreatic ductal distention. There are a few small gas bubbles between the duodenum and pancreatic head similar to prior CT 02/08/2020 and likely corresponding to the duodenal diverticulum noted on upper GI 03/17/2019. SPLEEN: Unremarkable. ADRENAL GLANDS: Unremarkable. KIDNEYS AND URETERS: The kidneys are normal in size, shape, and attenuation. No hydronephrosis, hydroureter, or calculi seen. No perinephric stranding. BLADDER: Unremarkable. GASTROINTESTINAL TRACT: No bowel obstruction or intestinal inflammatory changes. No pneumatosis. No ascites or loculated fluid collection. ABDOMINAL WALL: Small fat-containing umbilical hernia, under 3 cm. LYMPH NODES: No lymphadenopathy. VASCULAR: Unremarkable. PELVIC VISCERA: Unremarkable. OSSEOUS STRUCTURES: No acute bony abnormality. Degenerative changes again seen lower thoracic and lumbosacral spine. CT/CT abdomen pelvis wo con IMPRESSION: 1. Enlarged gallbladder with circumferential wall thickening and pericholecystic inflammatory changes extending to descending duodenum and pancreatic groove. Findings are consistent with cholecystitis. No visible calculi. No ductal dilatation. 2. Pancreas normal in size. No pancreatic ductal distention. 3. Scattered patchy bibasilar airspace opacities. Small right effusion.
[2020-05-03 09:52] VITALS: BP 112/48; PULSE 80; RESP 18; TEMP 36.6; O2SAT 98; BMI 34.5
--- NOTE | 2020-05-03 11:06 | PC.NURSE ---
ultrasound at bedside
[2020-05-03 12:11] LABS: Basophils Percent Auto 0.1 % (0-2); Eosinophils Absolute Auto 0.1 X10*3/uL (0.0-0.4); Eosinophils Percent Auto 1.2 % (0-4); Hematocrit 29.7 % (42-52); Hemoglobin 9.5 g/dl (14.0-18.0); Imm Gran Abs Auto 0.05 X10*3/uL (0.00-0.03); Imm Gran Pct Auto 0.6 % (0.0-0.4); Lymphocytes Absolute Auto 0.7 X10*3/uL (1.2-4.9); Lymphocytes Percent Auto 7.5 % (20-40); MANUAL DIFF FLAG SCAN; Mean Corpuscular Hemoglobin 29.1 pg (27.0-33.0); Mean Corpuscular Volume 91.1 fL (80-98); Mean Platelet Volume 9.9 fL (9.4-12.4); Monocytes Absolute Auto 0.8 X10*3/uL (0.1-1.2); Monocytes Percent Auto 9.6 % (2-11); Platelet Count 325 X10*3/uL (160-400); Red Blood Count 3.26 X10*6/uL (4.60-5.80); Red Cell Distribution Width 15.5 % (11.0-16.0); SCAN SMEAR FLAG 1; White Blood Count 8.7 X10*3/uL (4.8-10.8)
[2020-05-03 12:16] LABS: INTERNATIONAL NORM RATIO 2.6 (0.9-1.1); Prothrombin Time 31.6 SEC (10.8-13.0)
--- NOTE | 2020-05-03 12:28 | ED.ABDPAIN ---
HPI - Abdominal Pain General Chief Complaint: Abdominal Pain Stated Complaint: RUQ PAIN Time Seen by Provider: 05/03/20 10:03 Source: patient and EMS Mode of arrival: EMS Limitations: language barrier (Greek-speaking) History of Present Illness HPI narrative: 84-year-old male with multiple comorbidities which include CVA, atrial fibrillation currently on anticoagulation, CHF, hypertension, hypercholesterolemia, COPD, anemia, GERD with esophagitis and chronic cholecystitis being followed by Dr. Velazquez and SARAI Caraballo seen on 02/27/2020 currently residing at [facility] presenting to the ED with complaints of right upper quadrant abdominal pain for the past 4 days worse today reports he was unable to sleep all night due to the pain. Denies any dizziness, headaches, nausea/vomiting, chest pain, shortness of breath, dyspnea on exertion, orthopnea, palpitations, radiation of the abdominal pain, back pain, dysuria, hematuria, diarrhea constipation or any other symptom complaints or concerns at this time. Denies recent travel or sick contacts. MD elicited complaint: abdominal pain Pertinent past history: other (Chronic cholecystitis) Onset (ago): day(s) (4 days worse today) Pain Consistency: constant Location: RUQ Severity: moderate Quality: aching Radiation: none Migration to: no migration Exacerbating factors: eating Relieving factors: nothing Associated symptoms: denies other symptoms Related Data Home Medications Medication Instructions Recorded Confirmed albuterol sulfate 90 mcg/actuation 2 puff INHALATION Q4-6H PRN 12/15/19 03/16/20 aerosol inhaler atorvastatin 80 mg tablet 80 mg PO DAILY 12/15/19 04/01/20 warfarin 2.5 mg PO SUTUWETHSA@1800 02/08/20 03/16/20 warfarin 5 mg PO MOWEFR@1800 02/08/20 03/16/20 Previous Rx's Medication Instructions Recorded fluticasone furoate 200 1 ea PO DAILY #56 cap 01/24/20 mcg-vilanterol 25 mcg/dose inhalation powder pantoprazole 40 mg tablet,delayed 40 mg PO DAILY #30 tab 01/24/20 release bisacodyl 5 mg tablet,delayed 10 mg PO ONCE 1 Days #2 tab 02/16/20 release docusate sodium 100 mg capsule 100 mg PO DAILY #30 cap 03/30/20 losartan 100 mg tablet 100 mg PO DAILY #28 tab 03/30/20 sdjlwjmvekau-nmurrjdw-hnkjpb tablet 1 tab PO DAILY #28 tab 03/30/20 tamsulosin 0.4 mg capsule 0.4 mg PO DAILY #28 cap 03/30/20 verapamil 180 mg 24 hr 180 mg PO DAILY #28 cap 03/30/20 capsule,extended release carvedilol 12.5 mg PO BID #60 tab 04/14/20 furosemide 40 mg PO DAILY #30 tab 04/14/20 sucralfate 1 g PO BIDAC #60 tab 04/14/20 tramadol 100 mg PO TID PRN #20 tab 05/03/20 Allergies Allergy/AdvReac Type Severity Reaction Status Date / Time dabigatran etexilate Allergy Intermediate ITCHING Verified 03/13/20 14:22 [From PRADAXA] JORGE L Inhibitors Allergy Mild UNKNOWN, Verified 03/13/20 14:22 [Jorge L Inhibitors] FOUND IN MEDICAL RECORD 04/[address] GIPSON ezetimibe [From Zetia] Allergy Mild ANAPHYLAXIS Verified 03/13/20 14:22 apixaban [From ELIQUIS] Allergy Unknown UNKNOWN, Verified 03/13/20 14:22 rash atorvastatin [From LIPITOR] Allergy Unknown UNKNOWN Verified 03/13/20 14:22 rosuvastatin [Crestor] Allergy Unknown myalgia Verified 03/13/20 14:22 Review of Systems Review of Systems Constitutional : No Weight loss, No Fever, No Chills, No Night Sweats, No Fatigue, No Malaise ENT/Mouth: No ear pain, No sore throat, No Difficulty swallowing Cardiovascular : No Chest Pain, No SOB, No Dyspnea on Exertion, No Orthopnea, NoEdema, No Palpitations Respiratory : No Cough, No Sputum, No Wheezing, No Dyspnea Gastrointestinal : + Abdominal pain, No Nausea, No Vomiting, No Diarrhea, No Hematochezia, No Melena Genitourinary : No irregular bleeding, No Dysuria, No Urinary Frequency, No Hematuria,No Urinary Incontinence, No Urgency, No Flank Pain Musculoskeletal : No joint pain, No Myalgias, No Joint Swelling Skin : No Skin Lesions, No rash Neuro : No Weakness, No Numbness, No Paresthesias, No Loss of Consciousness, NoDizziness, No Headache Psych : No Social Issues, Heme/Lymph: No Bruising, No Bleeding,No Lymphadenopathy Endocrine : No Polyuria, No Polydipsia, No Temperature Intolerance Yes all other systems are reviewed and are negative Physical Exam Vital Signs: Vital Signs: Last Vital Signs Temp 97.8 F 05/03/20 14:00 Pulse 81 05/03/20 14:00 Resp 14 05/03/20 14:00 BP 154/65 H 05/03/20 14:00 Pulse Ox 94 05/03/20 14:00 Body Mass Index 34.5 vital signs have been reviewed as normal and appeared to be correct. Blood pressure hypotensive at 112/48. Heart rate normal. Respiration rate normal. Temperature normal. Oxygen saturation normal. Appearance: Alert. Oriented X3. No acute distress. Head: Normal external exam. Normocephalic. Eyes: PERRLA. EOMI. Conjunctiva and sclera normal. Eyelids normal. ENT: Pharynx normal. Uvula midline. Moist mucous membranes. Neck: Normal inspection. Neck supple. FROM. No adenopathy. No meningeal signs. CVS: Normal heart rate and rhythm. Heart sound normal. No murmurs noted. Pulses normal throughout. Respiratory: No respiratory distress. Painless inspiration. Breath sounds normal. No wheezes/rales/rhonchi noted. Chest nontender. No accessory muscle usage noted or decreased air movement noted. Abdomen: Soft and moderate right upper quadrant/epigastric abdominal pain with guarding positive Chaudhari sign. Nondistended. No guarding. No rigidity. Bowel sounds normal in all 4 quadrants. No distention noted. No organomegaly noted. No visible injury noted. No rebound tenderness. Negative Rovsing sign. Negative obturator's sign. Negative psoas sign. Back: No CVA tenderness. Full range of motion noted. Skin: Skin warm and dry. Normal skin color. Normal skin turgor. No rashes/lesions/lacerations noted. Extremities: Extremities exhibit normal range of motion. Extremities nontender. Neuro: Oriented X 3. No motor deficit. No sensory deficit. Reflexes normal. Course Course Course Narrative: 10:15am - 84-year-old male with multiple comorbidities which include CVA, atrial fibrillation currently on anticoagulation, CHF, hypertension, hypercholesterolemia, COPD, anemia, GERD with esophagitis and chronic cholecystitis being followed by Dr. Velazquez and SARAI Caraballo seen on 02/27/2020 currently residing at [facility] presenting to the ED with complaints of right upper quadrant abdominal pain for the past 4 days worse today - on exam patient is alert and oriented x3. Not in any acute distress. Mildly hypotensive at 112/48 otherwise all other vitals are within normal limits. Patient is neuro intact no focal neuro deficits noted. CV RRR, lungs clear to auscultation, abdomen is soft although patient has moderate tenderness to the epigastric/right upper quadrant. Patient also noted to have bilateral +1 pitting edema. No calf tenderness noted. - concern for acute on chronic cholecystitis vs ACS vs CHF exacerbation - Plan: Labs, chest x-ray, EKG, limited abdominal ultrasound to right upper quadrant/epigastric abdominal area if negative will obtain a CT scan of abdomen and pelvis then re-evaluate. Reevaluation(s) Reevaluation #1: - patient with baseline anemia similar compared to prior. - potassium 3.2 - BUN/creatinine 32/1.5 increased when compared to prior patient has never had an elevated BUN or creatinine - BNP 516 - troponin 31.3 - otherwise all other labs are within normal limits including amylase and lipase. - patient with patchy bilateral streaky ground-glass opacity slightly increased from prior exam 04/07/2020 with low lung volumes patient was positive for COVID in February of 2020 although reports he has been having a persistent intermittent cough which has been improving since February 2020. - abdominal ultrasound revealed Echogenic sludge with gravel. Mild gallbladder wall thickening measuring 0.52 cm. Small anechoic cyst lower pole measuring 1.6 cm. - therefore will repeat a troponin in 3 hours. Give 500 mL of IV fluids and 40 mg of IV Lasix and 40 mg of p.o. potassium - then recheck the patient's kidney function - will also do a CT scan of abdomen and pelvis without IV contrast due to patient's elevated kidney function - patient's was updated via phone - will then re-evaluate - patient and understand and agree with this plan. Time: 13:15 Reevaluation #2: - repeat labs of BUN and creatinine have improved. GFR improved. - BNP improved. - troponin trended down there for negative delta. - EKG sinus rhythm with premature atrial complexes with a ventricular rate of 84 with a right bundle-branch block with nonspecific ST wave abnormality similar when compared to prior EKG on 04/05/2019 - CT scan of abdomen and pelvis revealed IMPRESSION: 1. Enlarged gallbladder with circumferential wall thickening and pericholecystic inflammatory changes extending to descending duodenum and pancreatic groove. Findings are consistent with cholecystitis. No visible calculi. No ductal dilatation. 2. Pancreas normal in size. No pancreatic ductal distention. 3. Scattered patchy bibasilar airspace opacities. Small right effusion. - therefore consulted with Dr. Nobles from General surgery he reported nothing to do at this time for the patient's chronic cholecystitis that he can continue to follow-up with GI for this. Will DC home with symptomatic treatment along with instructions to return if any new or worsening symptoms to follow up with GI as usual. Patient and understand and agree with this plan. Time: 16:21 MDM - Abdominal Pain Medical Records Attestation: I reviewed the patient's medical records. Lab Data Attestation: I reviewed the patient's lab results. Result diagrams: 05/03/20 12:01 05/03/20 15:14 Labs: Lab Results 05/03/20 05/03/20 05/03/20 Range/Units 12:01 12:01 12:01 WBC 8.7 (4.8-10.8) X10*3/uL RBC 3.26 L (4.60-5.80) X10*6/uL Hgb 9.5 L (14.0-18.0) g/dl Hct 29.7 L (42-52) % MCV 91.1 (80-98) fL MCH 29.1 (27.0-33.0) pg MCHC 32.0 (31.0-36.0) g/dl RDW 15.5 (11.0-16.0) % Plt Count 325 (160-400) X10*3/uL MPV 9.9 (9.4-12.4) fL Immature Gran % (Auto) 0.6 H (0.0-0.4) % Neut % (Auto) 81.0 H (45-73) % Lymph % (Auto) 7.5 L (20-40) % [place] % (Auto) 9.6 (2-11) % Eos % (Auto) 1.2 (0-4) % Baso % (Auto) 0.1 (0-2) % Lymph # (Auto) 0.7 L (1.2-4.9) X10*3/uL [place] # (Auto) 0.8 (0.1-1.2) X10*3/uL Eos # (Auto) 0.1 (0.0-0.4) X10*3/uL Baso # (Auto) 0.0 (0.0-0.2) X10*3/uL Abs Immat Gran (auto) 0.05 H (0.00-0.03) X10*3/uL Absolute Neuts (auto) 7.0 (2.0-8.3) X10*3/uL Absolute Nucleated RBC 0.000 (0.0-0.012) X10*3/uL Nucleated RBC % (auto) 0.0 (0.0-0.2) /100WBC Smear Tech's Comments VERIFIED Hold Purple Top PT 31.6 H (10.8-13.0) SEC INR 2.6 H (0.9-1.1) Sodium 139 (135-145) mmol/L Potassium 3.2 L D (3.3-5.1) mmol/L Chloride 101 (96-108) mmol/L Carbon Dioxide 29 (22-29) mmol/L Anion Gap 12 (12-20) BUN 32 H D (9-16) mg/dL Creatinine 1.50 H (0.5-1.4) mg/dL Estim Creat Clear Calc 35.3 Estimated GFR 45 Random Glucose 93 (60-115) mg/dL Calcium 7.5 L D (8.4-10.2) mg/dL Magnesium 1.7 (1.6-2.6) mg/dL Total Bilirubin 0.3 (0.0-1.0) mg/dL Direct Bilirubin 0.3 (0.0-0.5) mg/dL AST 28 (5-37) U/L ALT 41 H (0-40) U/L Alkaline Phosphatase 130 H D (39-117) U/L Lactate Dehydrogenase (118-273) U/L Troponin I High Sens (<3.5-35.0) ng/L B-Natriuretic Peptide (<100) pg/mL Total Protein 5.2 L (6.5-8.0) g/dL Albumin 2.8 L (3.5-5.0) g/dL Amylase 42 (28-100) U/L Lipase (8-78) U/L Urine Color Urine Appearance Urine pH (5.0-8.0) Ur Specific Ina (1.005-1.025) Urine Protein (NEG-TRACE) MG/DL Urine Glucose (UA) (NEG) MG/DL Urine Ketones (NEG) MG/DL Urine Blood (NEG) Urine Nitrite (NEG) Ur Leukocyte Esterase (NEG) Urine RBC (0) /HPF Urine WBC (0-4) /HPF Ur Squamous Epith Cells /LPF Urine Bacteria /LPF 05/03/20 05/03/20 05/03/20 Range/Units 12:01 12:01 12:01 WBC (4.8-10.8) X10*3/uL RBC (4.60-5.80) X10*6/uL Hgb (14.0-18.0) g/dl Hct (42-52) % MCV (80-98) fL MCH (27.0-33.0) pg MCHC (31.0-36.0) g/dl RDW (11.0-16.0) % Plt Count (160-400) X10*3/uL MPV (9.4-12.4) fL Immature Gran % (Auto) (0.0-0.4) % Neut % (Auto) (45-73) % Lymph % (Auto) (20-40) % [place] % (Auto) (2-11) % Eos % (Auto) (0-4) % Baso % (Auto) (0-2) % Lymph # (Auto) (1.2-4.9) X10*3/uL [place] # (Auto) (0.1-1.2) X10*3/uL Eos # (Auto) (0.0-0.4) X10*3/uL Baso # (Auto) (0.0-0.2) X10*3/uL Abs Immat Gran (auto) (0.00-0.03) X10*3/uL Absolute Neuts (auto) (2.0-8.3) X10*3/uL Absolute Nucleated RBC (0.0-0.012) X10*3/uL Nucleated RBC % (auto) (0.0-0.2) /100WBC Smear Tech's Comments Hold Purple Top SEE NOTE PT (10.8-13.0) SEC INR (0.9-1.1) Sodium (135-145) mmol/L Potassium (3.3-5.1) mmol/L Chloride (96-108) mmol/L Carbon Dioxide (22-29) mmol/L Anion Gap (12-20) BUN (9-16) mg/dL Creatinine (0.5-1.4) mg/dL Estim Creat Clear Calc Estimated GFR Random Glucose (60-115) mg/dL Calcium (8.4-10.2) mg/dL Magnesium (1.6-2.6) mg/dL Total Bilirubin (0.0-1.0) mg/dL Direct Bilirubin (0.0-0.5) mg/dL AST (5-37) U/L ALT (0-40) U/L Alkaline Phosphatase (39-117) U/L Lactate Dehydrogenase 254 (118-273) U/L Troponin I High Sens 31.3 D (<3.5-35.0) ng/L B-Natriuretic Peptide 516 H (<100) pg/mL Total Protein (6.5-8.0) g/dL Albumin (3.5-5.0) g/dL Amylase (28-100) U/L Lipase 29 (8-78) U/L Urine Color Urine Appearance Urine pH (5.0-8.0) Ur Specific Ina (1.005-1.025) Urine Protein (NEG-TRACE) MG/DL Urine Glucose (UA) (NEG) MG/DL Urine Ketones (NEG) MG/DL Urine Blood (NEG) Urine Nitrite (NEG) Ur Leukocyte Esterase (NEG) Urine RBC (0) /HPF Urine WBC (0-4) /HPF Ur Squamous Epith Cells /LPF Urine Bacteria /LPF 05/03/20 05/03/20 05/03/20 Range/Units 14:04 15:14 15:14 WBC (4.8-10.8) X10*3/uL RBC (4.60-5.80) X10*6/uL Hgb (14.0-18.0) g/dl Hct (42-52) % MCV (80-98) fL MCH (27.0-33.0) pg MCHC (31.0-36.0) g/dl RDW (11.0-16.0) % Plt Count (160-400) X10*3/uL MPV (9.4-12.4) fL Immature Gran % (Auto) (0.0-0.4) % Neut % (Auto) (45-73) % Lymph % (Auto) (20-40) % [place] % (Auto) (2-11) % Eos % (Auto) (0-4) % Baso % (Auto) (0-2) % Lymph # (Auto) (1.2-4.9) X10*3/uL [place] # (Auto) (0.1-1.2) X10*3/uL Eos # (Auto) (0.0-0.4) X10*3/uL Baso # (Auto) (0.0-0.2) X10*3/uL Abs Immat Gran (auto) (0.00-0.03) X10*3/uL Absolute Neuts (auto) (2.0-8.3) X10*3/uL Absolute Nucleated RBC (0.0-0.012) X10*3/uL Nucleated RBC % (auto) (0.0-0.2) /100WBC Smear Tech's Comments Hold Purple Top PT (10.8-13.0) SEC INR (0.9-1.1) Sodium 139 (135-145) mmol/L Potassium 3.7 (3.3-5.1) mmol/L Chloride 102 (96-108) mmol/L Carbon Dioxide 30 H (22-29) mmol/L Anion Gap 11 L (12-20) BUN 29 H (9-16) mg/dL Creatinine 1.32 (0.5-1.4) mg/dL Estim Creat Clear Calc 40.2 Estimated GFR 52 Random Glucose 93 (60-115) mg/dL Calcium 7.5 L (8.4-10.2) mg/dL Magnesium (1.6-2.6) mg/dL Total Bilirubin (0.0-1.0) mg/dL Direct Bilirubin (0.0-0.5) mg/dL AST (5-37) U/L ALT (0-40) U/L Alkaline Phosphatase (39-117) U/L Lactate Dehydrogenase (118-273) U/L Troponin I High Sens 27.4 (<3.5-35.0) ng/L B-Natriuretic Peptide (<100) pg/mL Total Protein (6.5-8.0) g/dL Albumin (3.5-5.0) g/dL Amylase (28-100) U/L Lipase (8-78) U/L Urine Color YELLOW Urine Appearance CLEAR Urine pH 6.5 (5.0-8.0) Ur Specific Ina 1.010 (1.005-1.025) Urine Protein NEG (NEG-TRACE) MG/DL Urine Glucose (UA) NEG (NEG) MG/DL Urine Ketones NEG (NEG) MG/DL Urine Blood TRACE (NEG) Urine Nitrite NEG (NEG) Ur Leukocyte Esterase NEG (NEG) Urine RBC 0 (0) /HPF Urine WBC 0 (0-4) /HPF Ur Squamous Epith Cells NONE /LPF Urine Bacteria NONE /LPF 05/03/20 Range/Units 15:14 WBC (4.8-10.8) X10*3/uL RBC (4.60-5.80) X10*6/uL Hgb (14.0-18.0) g/dl Hct (42-52) % MCV (80-98) fL MCH (27.0-33.0) pg MCHC (31.0-36.0) g/dl RDW (11.0-16.0) % Plt Count (160-400) X10*3/uL MPV (9.4-12.4) fL Immature Gran % (Auto) (0.0-0.4) % Neut % (Auto) (45-73) % Lymph % (Auto) (20-40) % [place] % (Auto) (2-11) % Eos % (Auto) (0-4) % Baso % (Auto) (0-2) % Lymph # (Auto) (1.2-4.9) X10*3/uL [place] # (Auto) (0.1-1.2) X10*3/uL Eos # (Auto) (0.0-0.4) X10*3/uL Baso # (Auto) (0.0-0.2) X10*3/uL Abs Immat Gran (auto) (0.00-0.03) X10*3/uL Absolute Neuts (auto) (2.0-8.3) X10*3/uL Absolute Nucleated RBC (0.0-0.012) X10*3/uL Nucleated RBC % (auto) (0.0-0.2) /100WBC Smear Tech's Comments Hold Purple Top PT (10.8-13.0) SEC INR (0.9-1.1) Sodium (135-145) mmol/L Potassium (3.3-5.1) mmol/L Chloride (96-108) mmol/L Carbon Dioxide (22-29) mmol/L Anion Gap (12-20) BUN (9-16) mg/dL Creatinine (0.5-1.4) mg/dL Estim Creat Clear Calc Estimated GFR Random Glucose (60-115) mg/dL Calcium (8.4-10.2) mg/dL Magnesium (1.6-2.6) mg/dL Total Bilirubin (0.0-1.0) mg/dL Direct Bilirubin (0.0-0.5) mg/dL AST (5-37) U/L ALT (0-40) U/L Alkaline Phosphatase (39-117) U/L Lactate Dehydrogenase (118-273) U/L Troponin I High Sens (<3.5-35.0) ng/L B-Natriuretic Peptide 497 H (<100) pg/mL Total Protein (6.5-8.0) g/dL Albumin (3.5-5.0) g/dL Amylase (28-100) U/L Lipase (8-78) U/L Urine Color Urine Appearance Urine pH (5.0-8.0) Ur Specific Ina (1.005-1.025) Urine Protein (NEG-TRACE) MG/DL Urine Glucose (UA) (NEG) MG/DL Urine Ketones (NEG) MG/DL Urine Blood (NEG) Urine Nitrite (NEG) Ur Leukocyte Esterase (NEG) Urine RBC (0) /HPF Urine WBC (0-4) /HPF Ur Squamous Epith Cells /LPF Urine Bacteria /LPF Imaging Data Chest x-ray: Attestation: I personally reviewed and interpreted this imaging study as follows: Radiologist's impression: FINDINGS: There are low lung volumes with inspiration to the eighth posterior intercostal space. Patchy bilateral streaky groundglass opacities are present upper and lower zones slightly increased from prior exam 04/07/2020. There is no effusion. There is no pneumothorax or pneumomediastinum. The heart is normal in size. No acute bony abnormality. Chronic changes right shoulder again seen. XR/XR chest 2V IMPRESSION: Patchy bilateral streaky groundglass opacities slightly increased from prior exam 04/07/2020. Low lung volumes. Abdominal ultrasound: Attestation: I personally reviewed and interpreted this imaging study as follows: Radiologist's impression: FINDINGS: PANCREAS: Normal. LIVER: Normal. The liver is normal in size. The liver contour is normal. Parenchymal echogenicity is normal. No focal hepatic lesion. There is no intrahepatic biliary duct dilatation seen. GALLBLADDER: There is echogenic bile with sludge and mild gallbladder wall thickening measuring 0.52 cm. No echogenic stones are pericholecystic fluid collection seen. COMMON BILE DUCT: Normal in caliber measuring 0.25 cm in diameter. RIGHT KIDNEY: No hydronephrosis. No renal calculi or focal parenchymal lesions. The kidney measures there is echogenic cyst in the lower pole measuring 1.6 x 1.0 x 1.1 cm in maximum dimension. FREE FLUID: None. US/US abdomen limited IMPRESSION: Echogenic sludge with gravel. Mild gallbladder wall thickening measuring 0.52 cm. Small anechoic cyst lower pole measuring 1.[address] scan of abdomen and pelvis without IV contrast: Attestation: I personally reviewed and interpreted this imaging study as follows: Radiologist's impression: FINDINGS: LUNG BASES: Scattered patchy airspace opacities and coarsening interstitial markings. Small right effusion with dependent atelectasis. LIVER, GALLBLADDER, AND BILIARY TREE: The liver is normal in size and smooth in contour and homogeneous. The gallbladder is distended to 5 cm in diameter. There is circumferential gallbladder wall thickening and stranding in the adjacent mesentery extending towards the descending duodenum and pancreatic head. No fluid collection. There are no visible calculi. No intrahepatic ductal dilatation. Common duct unremarkable. PANCREAS: Normal in size. No pancreatic ductal distention. There are a few small gas bubbles between the duodenum and pancreatic head similar to prior CT 02/08/2020 and likely corresponding to the duodenal diverticulum noted on upper GI 03/17/2019. SPLEEN: Unremarkable. ADRENAL GLANDS: Unremarkable. KIDNEYS AND URETERS: The kidneys are normal in size, shape, and attenuation. No hydronephrosis, hydroureter, or calculi seen. No perinephric stranding. BLADDER: Unremarkable. GASTROINTESTINAL TRACT: No bowel obstruction or intestinal inflammatory changes. No pneumatosis. No ascites or loculated fluid collection. ABDOMINAL WALL: Small fat-containing umbilical hernia, under 3 cm. LYMPH NODES: No lymphadenopathy. VASCULAR: Unremarkable. PELVIC VISCERA: Unremarkable. OSSEOUS STRUCTURES: No acute bony abnormality. Degenerative changes again seen lower thoracic and lumbosacral spine. CT/CT abdomen pelvis wo con IMPRESSION: 1. Enlarged gallbladder with circumferential wall thickening and pericholecystic inflammatory changes extending to descending duodenum and pancreatic groove. Findings are consistent with cholecystitis. No visible calculi. No ductal dilatation. 2. Pancreas normal in size. No pancreatic ductal distention. 3. Scattered patchy bibasilar airspace opacities. Small right effusion. ECG Data Attestation: I personally reviewed and interpreted this ECG as follows: ECG interpretation date: 05/03/20 ECG interpretation time: 15:06 Interpretation: EKG sinus rhythm with premature atrial complexes with a ventricular rate of 84 with a right bundle-branch block with nonspecific ST wave abnormality similar when compared to prior EKG on 04/05/2019 Critical Care Time Critical Care Time Critical Care Time: Yes Total Critical Care Time: 60 Attestation: I personally attest to this time spent taking care of the patient Discharge Plan Discharge Clinical Impression: Acute dehydration, Acute on chronic clinical systolic heart failure, Acute hypokalemia, Cholecystitis, chronic, Acute kidney injury Patient Disposition: [facility] Instructions: Cholecystitis (ED), Dehydration (ED), Low Fat Diet (ED), Hypokalemia (ED) Prescriptions: New tramadol 100 mg tablet 100 mg PO TID PRN (Reason: pain) Qty: 20 RF: 0 No Action pantoprazole 40 mg tablet,delayed release (DR/EC) 40 mg PO DAILY Qty: 30 RF: 4 fluticasone furoate-vilanterol [Breo Ellipta] 200-25 mcg/dose blister with device 1 ea PO DAILY Qty: 56 RF: 2 bisacodyl [Dulcolax (bisacodyl)] 5 mg tablet,delayed release (DR/EC) 10 mg PO ONCE 1 Days Qty: 2 RF: 0 [id number] [Cerovite Senior] Tablet 1 tab PO DAILY Qty: 28 RF: 11 losartan 100 mg tablet 100 mg PO DAILY Qty: 28 RF: 5 tamsulosin 0.4 mg capsule 0.4 mg PO DAILY Qty: 28 RF: 11 verapamil 180 mg capsule,ext rel. pellets 24 hr 180 mg PO DAILY Qty: 28 RF: 11 docusate sodium 100 mg capsule 100 mg PO DAILY Qty: 30 RF: 3 warfarin 2.5 mg Tablet 2.5 mg PO SUTUWETHSA@1800 RF: 0 warfarin 5 mg Tablet 5 mg PO MOWEFR@1800 RF: 0 carvedilol 12.5 mg Tablet 12.5 mg PO BID Qty: 60 RF: 0 furosemide 40 mg Tablet 40 mg PO DAILY Qty: 30 RF: 0 sucralfate 1 gram Tablet 1 g PO BIDAC Qty: 60 RF: 0 atorvastatin 80 mg tablet 80 mg PO DAILY RF: 0 albuterol sulfate [ProAir HFA] 90 mcg/actuation HFA aerosol inhaler 2 puff inhalation Q4-6H PRN (Reason: Shortness Of Breath) RF: 0 Referrals: Ayah Velazquez MD [Physician] - 2 days Po,Kenny Chavez MD [Primary Care Provider] - 2 days Print Language: [facility] Past Medical History Attestation statement: The following information was validated with the patient. Medical History Acute exacerbation of chronic obstructive pulmonary disease (COPD) Acute respiratory failure with hypoxia Afib Anemia Anemia Anxiety and depression ARDS (adult respiratory distress syndrome) BPH (benign prostatic hyperplasia) CHF (congestive heart failure) Cholecystitis Chronic abdominal pain Constipation COPD (chronic obstructive pulmonary disease) COVID-19 virus infection Current use of anticoagulant therapy Diastolic CHF, acute on chronic Diverticulitis Frequency of micturition GERD (gastroesophageal reflux disease) GERD with esophagitis Headache History of CVA (cerebrovascular accident) History of rib fracture Hypercholesterolemia Hypertension Hypogammaglobulinemia Obesity (BMI 30-39.9) Obstructive sleep apnea Paroxysmal atrial fibrillation Peripheral neuropathy Peripheral vascular disease Polyarthralgia Primary osteoarthritis of right knee Protrusion of lumbar intervertebral disc Tear of medial meniscus of knee Urinary incontinence Surgical History History of left knee replacement History of tonsillectomy History of total right hip replacement History of transurethral resection of prostate Family History Family History Father No problems noted. Mother Hx of type 1 diabetes mellitus Social History Social History Household Members: Spouse Housing: Apartment Alcohol intake: never Smoking Status: Never smoker Tobacco Type: Cigarette Years Smoked: 30 yrs ago Second Hand Smoke Exposure: No Use of substances other than those prescribed or required for medical reasons: No Advance Directives: Yes Advance Directives on File: Yes Advance Directives Date on File: 04/06/20 service: No Current occupational status: retired Current occupation: Right Handed
[2020-05-03 12:30] LABS: SLIDE REVIEW VERIFIED
[2020-05-03 12:35] LABS: B Type Natriuretic Peptide 516 pg/mL (<100)
[2020-05-03 12:42] LABS: Lactate Dehydrogenase 254 U/L (118-273); Lipase 29 U/L (8-78)
[2020-05-03 12:44] LABS: Alanine Aminotransferase 41 U/L (0-40); Albumin Level 2.8 g/dL (3.5-5.0); Alkaline Phosphatase 130 U/L (39-117); Amylase 42 U/L (28-100); Anion Gap 12 (12-20); Aspartate Amino Transferase 28 U/L (5-37); Bilirubin Direct 0.3 mg/dL (0.0-0.5); Bilirubin Total 0.3 mg/dL (0.0-1.0); Blood Urea Nitrogen 32 mg/dL (9-16); Calcium 7.5 mg/dL (8.4-10.2); Carbon Dioxide 29 mmol/L (22-29); Chloride 101 mmol/L (96-108); Creatinine Clr Calc Pharmacy 35.3; Estimated Glomerular Filt Rate 45; Glucose Random 93 mg/dL (60-115); Magnesium 1.7 mg/dL (1.6-2.6); Potassium 3.2 mmol/L (3.3-5.1); Sodium 139 mmol/L (135-145); Total Protein 5.2 g/dL (6.5-8.0)
[2020-05-03] MEDS: Furosemide 40 MG/4 ML VIAL IVPUSH (13:30)
[2020-05-03] MEDS: Potassium Chloride Packet 20 MEQ PACKET 40 MEQ PO (13:30)
[2020-05-03] MEDS: 0.9 % Sodium Chloride 500 ML IV (13:30)
[2020-05-03 13:37] LABS: Troponin-I High Sensitivity 31.3 ng/L (<3.5-35.0)
[2020-05-03 14:00] VITALS: BP 154/65; PULSE 81; RESP 14; TEMP 36.6; O2SAT 94
--- NOTE | 2020-05-03 14:12 | ECG_ITS ---
Test Reason : WEAKNESS Blood Pressure : / mmHG Vent. Rate : 084 BPM Atrial Rate : 084 BPM P-R Int : 192 ms QRS Dur : 124 ms QT Int : 424 ms P-R-T Axes : 079 -08 040 degrees QTc Int : 501 ms Sinus rhythm with Premature atrial complexes Right bundle branch block Septal infarct , age undetermined Possible Lateral infarct (cited on or before 05-APR-2020) Abnormal ECG When compared with ECG of 11-APR-2020 12:22, Sinus rhythm has replaced Atrial fibrillation Right bundle branch block has replaced Incomplete right bundle branch block Borderline criteria for Inferior infarct are no longer Present Questionable change in initial forces of Lateral leads Referred By: Ya Figueroa Electronically Signed By:DEON DALAL MD
[2020-05-03 14:18] LABS: Glucose Urine UA NEG (NEG); Leukocyte Esterase Urine NEG (NEG); Nitrite Urine NEG (NEG); PH 6.5 (5.0-8.0); Urine Blood TRACE (NEG); Urine Ketones NEG (NEG); Urine Protein NEG (NEG-TRACE)
[2020-05-03 14:34] LABS: Appearance Urine CLEAR; Color Urine YELLOW
[2020-05-03 14:54] LABS: RBC Urine 0 /HPF (0); WBC Urine 0 /HPF (0-4)
[2020-05-03 15:54] LABS: Anion Gap 11 (12-20); Blood Urea Nitrogen 29 mg/dL (9-16); Calcium 7.5 mg/dL (8.4-10.2); Carbon Dioxide 30 mmol/L (22-29); Chloride 102 mmol/L (96-108); Creatinine Clr Calc Pharmacy 40.2; Estimated Glomerular Filt Rate 52; Glucose Random 93 mg/dL (60-115); Potassium 3.7 mmol/L (3.3-5.1); Sodium 139 mmol/L (135-145)
[2020-05-03 16:00] VITALS: RESP 16; O2SAT 98
[2020-05-03 16:01] LABS: B Type Natriuretic Peptide 497 pg/mL (<100); Troponin-I High Sensitivity 27.4 ng/L (<3.5-35.0)
--- NOTE | 2020-05-03 16:53 | PC.NURSE ---
plan for dc to [facility]. ambulance booked.
== END 2020-05-03 17:47 | disposition skilled nursing facility (03) ==
PROVIDERS: Physician Assistant Medical; Emergency Provider Emergency Medicine Emergency Medical Services; PCP Internal Medicine
DX: I50.23 Acute on chronic systolic (congestive) heart failure (principal); K81.1 Chronic cholecystitis; N17.9 Acute kidney failure, unspecified; E86.0 Dehydration; E87.6 Hypokalemia; R10.11 Right upper quadrant pain; I48.91 Unspecified atrial fibrillation; J44.9 Chronic obstructive pulmonary disease, unspecified; Z79.01 Long term (current) use of anticoagulants; Z79.899 Other long term (current) drug therapy; Z86.16 Personal history of COVID-19; Z87.891 Personal history of nicotine dependence
CPT/HCPCS: 36415; 71046; 74176; 76705; 80048; 80076; 81001; 82150; 83615; 83690; 83735; 83880; 84484; 85025; 85610; 93005; 96365; 96375; 99284; 99285; 99291; J1940

== ENCOUNTER 2020-05-07 00:31 | Outpatient (REF) | payer MEDICARE, SELFPAY ==
[2020-05-07 07:03] LABS: INTERNATIONAL NORM RATIO 3.3 (0.9-1.1); Prothrombin Time 39.9 SEC (10.8-13.0)
[2020-05-07 07:10] LABS: Hematocrit 27.2 % (42-52); Hemoglobin 8.6 g/dl (14.0-18.0); Mean Corpuscular HGB Conc 31.6 g/dl (31.0-36.0); Mean Corpuscular Volume 91.6 fL (80-98); Mean Platelet Volume 10.2 fL (9.4-12.4); Platelet Count 404 X10*3/uL (160-400); Red Blood Count 2.97 X10*6/uL (4.60-5.80); Red Cell Distribution Width 15.1 % (11.0-16.0); White Blood Count 7.5 X10*3/uL (4.8-10.8)
[2020-05-07 07:57] LABS: Anion Gap 12 (12-20); Blood Urea Nitrogen 10 mg/dL (9-16); Calcium 7.2 mg/dL (8.4-10.2); Carbon Dioxide 32 mmol/L (22-29); Chloride 104 mmol/L (96-108); Estimated Glomerular Filt Rate > 60; Glucose Random 71 mg/dL (60-115); Potassium 3.1 mmol/L (3.3-5.1); Sodium 145 mmol/L (135-145)
== END 2020-05-07 00:32 | disposition home or self-care (01) ==
LOC: HO.MMNH1L 00:31
PROVIDERS: Visit Provider Family Medicine
DX: I48.91 Unspecified atrial fibrillation (principal); J18.9 Pneumonia, unspecified organism
CPT/HCPCS: 36415; 80048; 85027; 85610

== ENCOUNTER 2020-05-14 00:31 | Outpatient (REF) | payer MEDICARE, SELFPAY | END 2020-05-14 00:32 | disposition home or self-care (01) | LOC: HO.MMNH1L 00:31 | PROVIDERS: Visit Provider Family Medicine | DX: Z13.89 Encounter for screening for other disorder (principal) ==

== ENCOUNTER 2020-05-22 07:04 | Outpatient (REF) | payer MEDICARE, SELFPAY ==
[2020-05-22 12:04] LABS: INTERNATIONAL NORM RATIO 2.1 (0.9-1.1); Prothrombin Time 24.6 SEC (10.8-13.0)
== END 2020-05-22 07:05 | disposition home or self-care (01) ==
LOC: HO.LHD 07:04
PROVIDERS: Visit Provider Physician Assistant
DX: I48.91 Unspecified atrial fibrillation (principal); Z79.01 Long term (current) use of anticoagulants
CPT/HCPCS: 36415; 85610; Q3014

== ENCOUNTER → 2020-05-24 14:53 | Outpatient (BNVA) | payer MEDICARE, SELFPAY | PROVIDERS: PCP Internal Medicine; Visit Provider Internal Medicine | DX: I48.0 Paroxysmal atrial fibrillation (principal); Z79.01 Long term (current) use of anticoagulants; Z51.81 Encounter for therapeutic drug level monitoring | CPT/HCPCS: Q3014 ==

== ENCOUNTER → 2020-05-29 14:18 | Outpatient (BNVA) | payer MEDICARE, SELFPAY | PROVIDERS: PCP Internal Medicine; Visit Provider Internal Medicine | DX: I48.91 Unspecified atrial fibrillation (principal); Z79.01 Long term (current) use of anticoagulants; Z51.81 Encounter for therapeutic drug level monitoring | CPT/HCPCS: Q3014 ==

== ENCOUNTER → 2020-05-31 13:41 | Outpatient (BNVA) | payer MEDICARE, SELFPAY | PROVIDERS: PCP Internal Medicine; Visit Provider Internal Medicine | DX: I48.0 Paroxysmal atrial fibrillation (principal); Z79.01 Long term (current) use of anticoagulants; Z51.81 Encounter for therapeutic drug level monitoring | CPT/HCPCS: Q3014 ==

== ENCOUNTER 2020-06-03 14:35 | Emergency (ER) | payer MEDICARE, SELFPAY ==
--- NOTE | ~2020-06-03 | CT_ITS ---
EXAMINATION: CT ABDOMEN AND PELVIS WITH CONTRAST CLINICAL INFORMATION: Lower abdominal pain for 4 days. Rule out appendicitis, diverticulitis COMPARISON: 05/03/2020 TECHNIQUE: Multidetector volumetric images were obtained from the superior aspect of the liver through the pubic symphysis following administration 85 mL of Omnipaque 350 intravenous contrast. Sagittal and coronal reformatted images were obtained on the technologist's workstation. Oral contrast: No This CT examination was performed using dose optimization techniques as appropriate, variously including the following: *Automated exposure control *Adjustment of mA and/or kV according to patient size (this includes techniques or standardized protocols for targeted exams where dose is matched to indication/reason for exam; i.e. extremities or head) *Use of iterative reconstruction technique DLP: 796 mGy-cm FINDINGS: LUNG BASES: Again seen are reticular changes at the lung bases which may represent atelectasis or possibly fibrosis. Normal heart size. No pleural or pericardial effusion. LIVER, GALLBLADDER, AND BILIARY TREE: The liver is normal in size, shape, and attenuation. No focal hepatic lesion or biliary ductal dilatation is present. Gallbladder is partially distended. Again seen is a thickened edematous gallbladder wall, improved from the prior study. No calcified gallstones seen. No biliary ductal dilatation. PANCREAS: Unremarkable. SPLEEN: Unremarkable. ADRENAL GLANDS: Unremarkable. KIDNEYS AND URETERS: The kidneys are normal in size, shape, and attenuation. No hydronephrosis, hydroureter, or calculi seen. No perinephric stranding. BLADDER: Unremarkable. GASTROINTESTINAL TRACT: Stomach and small bowel are nondilated. Incidental duodenal diverticulum again noted. The appendix is normal. Scattered colonic diverticulosis. There is subtle fat stranding within the mesentery adjacent the distal left colon and proximal sigmoid colon. The corresponding segment of colon is collapsed with wall thickening which could be attributable to underdistention although a subtle degree of abnormal wall thickening could be obscured. ABDOMINAL WALL: Small fat-containing umbilical hernia. LYMPH NODES: Normal. VASCULAR: Moderate calcified and noncalcified atherosclerotic changes. PELVIC VISCERA: The prostate and seminal vesicles are unremarkable. OSSEOUS STRUCTURES: Left total hip arthroplasty. There is a proximal cerclage cable. Multilevel degenerative changes of the thoracolumbar spine. Grade 1 anterolisthesis of L5 on S1 with vacuum disc phenomenon. Severe lower lumbar facet arthropathy. Chronic bilateral L5 pars defects. Several healed left-sided rib fractures with bridging fracture callus. CT/CT abdomen pelvis w con IMPRESSION: There is subtle fat stranding within the mesentery adjacent the distal left colon and proximal sigmoid colon best seen on coronal images. The corresponding segment of colon is collapsed with wall thickening which could be attributable to underdistention although a subtle degree of abnormal wall thickening could be obscured. A subtle colitis or less likely diverticulitis are possible.
[2020-06-03 14:43] VITALS: BP 120/76; BP 146/60; PULSE 72; PULSE 93; RESP 16; TEMP 36.6; O2SAT 100; O2SAT 97; BMI 34.7
--- NOTE | 2020-06-03 15:15 | ED.GENADULT ---
HPI - General Adult General Chief complaint: Abdominal Pain Stated complaint: LOW ABD PAIN Time Seen by Provider: 06/03/20 14:56 Source: patient Mode of arrival: ambulatory Limitations: no limitations History of Present Illness HPI narrative: 84-year-old male who presents emergency department for evaluation of lower abdominal pain x4 days. The patient states that he has a constant sharp pain in his lower abdomen which waxes and wanes in intensity and is currently 7/10. The patient states the pain has gotten progressively worse. He denied frequency, urgency or dysuria. He denied change in his bowel movements. He denied fever or chills. He states this is 1st episode of this type of abdominal pain. Denies any previous abdominal surgeries. The patient was hospitalized from April 01, 2020 until April 14, 2020 with acute respiratory failure secondary to COVID-19 pneumonia. Related Data Home Medications Medication Instructions Recorded Confirmed albuterol sulfate 90 mcg/actuation 2 puff INHALATION Q4-6H PRN 12/15/19 05/22/20 aerosol inhaler warfarin 2.5 mg PO SUTUWETHSA@1800 02/08/20 05/31/20 Previous Rx's Medication Instructions Recorded fluticasone furoate 200 1 ea PO DAILY #56 cap 01/24/20 mcg-vilanterol 25 mcg/dose inhalation powder pantoprazole 40 mg tablet,delayed 40 mg PO DAILY #30 tab 01/24/20 release bisacodyl 5 mg tablet,delayed 10 mg PO ONCE 1 Days #2 tab 02/16/20 release docusate sodium 100 mg capsule 100 mg PO DAILY #30 cap 03/30/20 losartan 100 mg tablet 100 mg PO DAILY #28 tab 03/30/20 hysnthpxplxt-cqatvaus-qsdaaq tablet 1 tab PO DAILY #28 tab 03/30/20 tamsulosin 0.4 mg capsule 0.4 mg PO DAILY #28 cap 03/30/20 verapamil 180 mg 24 hr 180 mg PO DAILY #28 cap 03/30/20 capsule,extended release sucralfate 1 g PO BIDAC #60 tab 04/14/20 tramadol 100 mg PO TID PRN #20 tab 05/03/20 warfarin 5 mg tablet 5 mg PO MOWEFR@1800 #90 tab 05/18/20 atorvastatin 80 mg tablet 80 mg PO DAILY #28 tab 05/25/20 carvedilol 12.5 mg tablet 12.5 mg PO BID #60 tab 05/28/20 hydroxyzine HCl 25 mg tablet 25 mg PO BEDTIME #10 tab 05/30/20 furosemide 40 mg tablet 40 mg PO DAILY #30 tab 06/01/20 Allergies Allergy/AdvReac Type Severity Reaction Status Date / Time dabigatran etexilate Allergy Intermediate ITCHING Verified 05/29/20 14:19 [From PRADAXA] JORGE L Inhibitors Allergy Mild UNKNOWN, Verified 05/29/20 14:19 [Jorge L Inhibitors] FOUND IN MEDICAL RECORD 04/[address] GIPSON ezetimibe [From Zetia] Allergy Mild ANAPHYLAXIS Verified 05/29/20 14:19 apixaban [From ELIQUIS] Allergy Unknown UNKNOWN, Verified 05/29/20 14:19 rash atorvastatin [From LIPITOR] Allergy Unknown UNKNOWN Verified 05/29/20 14:19 rosuvastatin [Crestor] Allergy Unknown myalgia Verified 05/29/20 14:19 Review of Systems Review of Systems: Yes all other systems are reviewed and are negative [facility] Past Medical History [facility] Narrative: The patient lives with his . He denies tobacco, alcohol and drug use. Source: unable to obtain Medical History Acute exacerbation of chronic obstructive pulmonary disease (COPD) Acute respiratory failure with hypoxia Afib Anemia Anemia Anxiety and depression ARDS (adult respiratory distress syndrome) BPH (benign prostatic hyperplasia) CHF (congestive heart failure) Cholecystitis Chronic abdominal pain Constipation COPD (chronic obstructive pulmonary disease) COVID-19 virus infection Current use of anticoagulant therapy Diastolic CHF, acute on chronic Diverticulitis Frequency of micturition GERD (gastroesophageal reflux disease) GERD with esophagitis Headache History of CVA (cerebrovascular accident) History of rib fracture Hypercholesterolemia Hypertension Hypogammaglobulinemia Obesity (BMI 30-39.9) Obstructive sleep apnea Paroxysmal atrial fibrillation Peripheral neuropathy Peripheral vascular disease Polyarthralgia Primary osteoarthritis of right knee Protrusion of lumbar intervertebral disc Tear of medial meniscus of knee Urinary incontinence Surgical History History of left knee replacement History of tonsillectomy History of total right hip replacement History of transurethral resection of prostate Family History Family History Father No problems noted. Mother Hx of type 1 diabetes mellitus Social History Social History Household Members: Spouse Housing: Apartment Alcohol intake: never Smoking Status: Never smoker Tobacco Type: Cigarette Years Smoked: 30 yrs ago Second Hand Smoke Exposure: No Advance Directives: Yes Advance Directives on File: Yes Advance Directives Date on File: 04/06/20 service: No Current occupational status: retired Current occupation: Right Handed Physical Exam Vital Signs: Vital Signs: Last Vital Signs Temp 97.9 F 06/03/20 14:43 Pulse 72 06/03/20 14:43 Resp 16 06/03/20 14:43 BP 146/60 H 06/03/20 14:43 Pulse Ox 100 06/03/20 14:43 Body Mass Index 34.7 Const: General: cooperative Nutritional Appearance: obese Orientation/consciousness: oriented to person and oriented to place Limitations: no limitations HENMT: Head: Yes normal to inspection, Yes normocephalic and Yes atraumatic Ears: external ears normal General nose exam: Normal external nose present Face and sinus: Yes normal facial exam Mouth: Normal oral and palatal mucosa present Throat: Yes posterior oropharynx normal Eyes: Periorbital: periorbital findings normal Eyelids: Yes eyelids normal Conjunctivae: conjunctivae normal Sclerae: sclerae normal Corneas: corneas normal Pupils: Equal, round and reactive pupils present Direct Ophthalmoscopy: normal light reflex Neck: Neck: Yes full ROM, Yes no lymphadenopathy, Yes no meningeal signs, Yes trachea midline and Yes supple Chest: Chest palpation & inspection: normal inspection of the chest and normal palpation of entire chest wall Resp: Effort & Inspection: normal respiratory effort and able to speak in complete sentences Auscultation: clear to auscultation bilaterally Cardio: Rate: regular rate Rhythm: regular rhythm Heart sounds: S1 normal heart sound present, S2 normal heart sound present and no murmurs GI: Inspection: Yes normal to inspection Palpation (GI): Soft to palpation, Tenderness to palpation present (GI) in the LLQ (Moderate), in the RLQ (Moderate) and suprapubicly (Moderate), no guarding, not rigid and No hepatosplenomegaly present : General: Yes no CVA tenderness Back/Spine/Pelvis: Back: no CVA tenderness Cervical Spine: normal cervical lordosis Thoracic/Lumbar Spine: thoracic and lumbar spine normal to inspection Skin: Lesions: no lesions Rashes: no rashes Wounds: no wounds Neuro: General: oriented to person, oriented to place and no meningeal signs Cranial nerves: Yes CN's II-XII intact bilaterally and Yes Equal, round and reactive pupils present Cognition (Neuro): normal cognition Motor exam (neuro): 5/5 motor strength present throughout Extrem: General: Yes normal to inspection and Yes full ROM Psych: Appearance: well kempt Mental Status: mental status grossly normal Speech and movement: Normal speech and movement present Affect: normal affect Attitude: cooperative Thought process: Normal thought process present Thought content: Normal thought content present Course Course Course Narrative: 84-year-old male presents emergency department for evaluation of lower abdominal pain x4 days. Physical examination revealed normal vital signs. The patient had moderate lower abdominal tenderness. I ordered a CBC, CMP, lipase, lactic acid UA PT/INR, PTT. Patient was ordered to get morphine 4 mg IV and Zofran 4 mg IV for his pain and nausea. He also ordered to get normal saline x1 L. 1622: Laboratory evaluation revealed normal white blood, 1200, anemia with an H&H of 9.8 and 31.3, this is chronic. INR is elevated at 3.2 and this is secondary to warfarin therapy. Comprehensive metabolic panel was unremarkable, lipase was not elevated. CT scan of the abdomen pelvis with IV contrast is pending. The patient's care was turned over to my colleague, . Medical Decision Making Lab Data Result diagrams: 06/03/20 15:35 06/03/20 15:36 Labs: Lab Results 06/03/20 06/03/20 06/03/20 Range/Units 15:35 15:35 15:35 WBC 8.2 (4.8-10.8) X10*3/uL RBC 3.44 L (4.60-5.80) X10*6/uL Hgb 9.8 L (14.0-18.0) g/dl Hct 31.3 L (42-52) % MCV 91.0 (80-98) fL MCH 28.5 (27.0-33.0) pg MCHC 31.3 (31.0-36.0) g/dl RDW 14.2 (11.0-16.0) % Plt Count 265 D (160-400) X10*3/uL MPV 9.8 (9.4-12.4) fL Immature Gran % (Auto) 0.4 (0.0-0.4) % Neut % (Auto) 69.5 (45-73) % Lymph % (Auto) 17.9 L (20-40) % [place] % (Auto) 9.0 (2-11) % Eos % (Auto) 2.8 (0-4) % Baso % (Auto) 0.4 (0-2) % Lymph # (Auto) 1.5 (1.2-4.9) X10*3/uL [place] # (Auto) 0.7 (0.1-1.2) X10*3/uL Eos # (Auto) 0.2 (0.0-0.4) X10*3/uL Baso # (Auto) 0.0 (0.0-0.2) X10*3/uL Abs Immat Gran (auto) 0.03 (0.00-0.03) X10*3/uL Absolute Neuts (auto) 5.7 (2.0-8.3) X10*3/uL Absolute Nucleated RBC 0.000 (0.0-0.012) X10*3/uL Nucleated RBC % (auto) 0.0 (0.0-0.2) /100WBC PT 38.9 H D (10.8-13.0) SEC INR 3.2 H (0.9-1.1) APTT 45.0 H (24.1-38.0) SEC Lactic Acid 1.3 (0.5-2.0) mmol/L Discharge Plan Discharge Prescriptions: No Action pantoprazole 40 mg tablet,delayed release (DR/EC) 40 mg PO DAILY Qty: 30 RF: 4 fluticasone furoate-vilanterol [Breo Ellipta] 200-25 mcg/dose blister with device 1 ea PO DAILY Qty: 56 RF: 2 bisacodyl [Dulcolax (bisacodyl)] 5 mg tablet,delayed release (DR/EC) 10 mg PO ONCE 1 Days Qty: 2 RF: 0 [id number] [Cerovite Senior] Tablet 1 tab PO DAILY Qty: 28 RF: 11 losartan 100 mg tablet 100 mg PO DAILY Qty: 28 RF: 5 tamsulosin 0.4 mg capsule 0.4 mg PO DAILY Qty: 28 RF: 11 verapamil 180 mg capsule,ext rel. pellets 24 hr 180 mg PO DAILY Qty: 28 RF: 11 docusate sodium 100 mg capsule 100 mg PO DAILY Qty: 30 RF: 3 warfarin 5 mg tablet 5 mg PO MOWEFR@1800 Qty: 90 RF: 1 atorvastatin 80 mg tablet 80 mg PO DAILY Qty: 28 RF: 11 carvedilol 12.5 mg tablet 12.5 mg PO BID Qty: 60 RF: 11 furosemide 40 mg tablet 40 mg PO DAILY Qty: 30 RF: 0 warfarin 2.5 mg Tablet 2.5 mg PO SUTUWETHSA@1800 RF: 0 sucralfate 1 gram Tablet 1 g PO BIDAC Qty: 60 RF: 0 tramadol 100 mg tablet 100 mg PO TID PRN (Reason: pain) Qty: 20 RF: 0 albuterol sulfate [ProAir HFA] 90 mcg/actuation HFA aerosol inhaler 2 puff inhalation Q4-6H PRN (Reason: Shortness Of Breath) RF: 0 hydroxyzine HCl 25 mg tablet 25 mg PO BEDTIME Qty: 10 RF: 0
[2020-06-03] MEDS: ondansetron HCL 4 MG/2 ML VIAL IVPUSH (15:39)
[2020-06-03] MEDS: 0.9 % Sodium Chloride 1,000 ML 999 ML IV (15:40)
[2020-06-03] MEDS: Morphine Sulfate 4 MG/ML CARTRIDGE IVPUSH (15:41)
[2020-06-03 15:42] LABS: MANUAL DIFF FLAG NO
[2020-06-03 15:43] LABS: Basophils Percent Auto 0.4 % (0-2); Eosinophils Absolute Auto 0.2 X10*3/uL (0.0-0.4); Eosinophils Percent Auto 2.8 % (0-4); Hematocrit 31.3 % (42-52); Hemoglobin 9.8 g/dl (14.0-18.0); Imm Gran Abs Auto 0.03 X10*3/uL (0.00-0.03); Imm Gran Pct Auto 0.4 % (0.0-0.4); Lymphocytes Absolute Auto 1.5 X10*3/uL (1.2-4.9); Lymphocytes Percent Auto 17.9 % (20-40); Mean Corpuscular HGB Conc 31.3 g/dl (31.0-36.0); Mean Corpuscular Hemoglobin 28.5 pg (27.0-33.0); Mean Platelet Volume 9.8 fL (9.4-12.4); Monocytes Absolute Auto 0.7 X10*3/uL (0.1-1.2); Neutrophils Absolute Auto 5.7 X10*3/uL (2.0-8.3); Neutrophils Percent Auto 69.5 % (45-73); Platelet Count 265 X10*3/uL (160-400); Red Blood Count 3.44 X10*6/uL (4.60-5.80); Red Cell Distribution Width 14.2 % (11.0-16.0); White Blood Count 8.2 X10*3/uL (4.8-10.8)
[2020-06-03 15:50] LABS: INTERNATIONAL NORM RATIO 3.2 (0.9-1.1); Prothrombin Time 38.9 SEC (10.8-13.0)
[2020-06-03 16:00] VITALS: BP 160/75; PULSE 66; RESP 16; TEMP 36.9; O2SAT 100
[2020-06-03 16:14] LABS: Lactic Acid 1.3 mmol/L (0.5-2.0)
[2020-06-03 16:21] LABS: Alanine Aminotransferase 14 U/L (0-40); Albumin Level 3.4 g/dL (3.5-5.0); Alkaline Phosphatase 62 U/L (39-117); Anion Gap 13 (12-20); Aspartate Amino Transferase 23 U/L (5-37); Bilirubin Total 0.3 mg/dL (0.0-1.0); Blood Urea Nitrogen 13 mg/dL (9-16); Calcium 8.3 mg/dL (8.4-10.2); Carbon Dioxide 27 mmol/L (22-29); Chloride 108 mmol/L (96-108); Creatinine Clr Calc Pharmacy 64.9; Estimated Glomerular Filt Rate > 60; Glucose Random 94 mg/dL (60-115); Lipase 26 U/L (8-78); Potassium 3.6 mmol/L (3.3-5.1); Sodium 144 mmol/L (135-145); Total Protein 5.6 g/dL (6.5-8.0)
[2020-06-03] MEDS: iohexoL 350 MG/ML 100 ML INFUS..BTL IV (16:41)
[2020-06-03 16:43] LABS: Glucose Urine UA NEG (NEG); Leukocyte Esterase Urine NEG (NEG); Nitrite Urine NEG (NEG); PH 6.5 (5.0-8.0); Urine Blood NEG (NEG); Urine Ketones NEG (NEG); Urine Protein NEG (NEG-TRACE)
[2020-06-03 16:45] LABS: Appearance Urine CLEAR; Color Urine YELLOW
[2020-06-03 18:00] VITALS: RESP 18
== END 2020-06-03 20:17 | disposition home or self-care (01) ==
PROVIDERS: Emergency Provider Emergency Medicine Emergency Medical Services
DX: R10.32 Left lower quadrant pain (principal); I11.0 Hypertensive heart disease with heart failure; I50.33 Acute on chronic diastolic (congestive) heart failure; J44.9 Chronic obstructive pulmonary disease, unspecified; I48.91 Unspecified atrial fibrillation; D64.9 Anemia, unspecified; F41.9 Anxiety disorder, unspecified; K21.9 Gastro-esophageal reflux disease without esophagitis; E78.00 Pure hypercholesterolemia, unspecified; Z86.73 Personal history of transient ischemic attack (TIA), and cerebral infarction without residual deficits; Z86.16 Personal history of COVID-19; Z87.01 Personal history of pneumonia (recurrent); Z79.899 Other long term (current) drug therapy; Z79.01 Long term (current) use of anticoagulants
CPT/HCPCS: 36415; 74177; 80053; 81003; 83605; 83690; 85025; 85610; 85730; 96361; 96374; 96375; 99284; J2270; J2405; Q9967

== ENCOUNTER → 2020-06-05 14:16 | Outpatient (BNVA) | payer MEDICARE, SELFPAY | PROVIDERS: PCP Internal Medicine; Visit Provider Internal Medicine | DX: I48.0 Paroxysmal atrial fibrillation (principal); Z79.01 Long term (current) use of anticoagulants; Z51.81 Encounter for therapeutic drug level monitoring | CPT/HCPCS: Q3014 ==

== ENCOUNTER → 2020-06-07 15:50 | Outpatient (BNVA) | payer MEDICARE, SELFPAY | PROVIDERS: PCP Internal Medicine; Visit Provider Internal Medicine | DX: I48.0 Paroxysmal atrial fibrillation (principal); Z79.01 Long term (current) use of anticoagulants; Z51.81 Encounter for therapeutic drug level monitoring | CPT/HCPCS: 99211 ==

== ENCOUNTER → 2020-06-14 15:28 | Outpatient (BNVA) | payer MEDICARE, SELFPAY | PROVIDERS: PCP Internal Medicine; Visit Provider Internal Medicine | DX: I48.19 Other persistent atrial fibrillation (principal); Z79.01 Long term (current) use of anticoagulants; Z51.81 Encounter for therapeutic drug level monitoring | CPT/HCPCS: Q3014 ==

== ENCOUNTER → 2020-06-21 13:51 | Outpatient (BNVA) | payer MEDICARE, SELFPAY | PROVIDERS: PCP Internal Medicine; Visit Provider Internal Medicine ==

== ENCOUNTER 2020-06-22 08:58 | Outpatient (REF) | payer MEDICARE, SELFPAY ==
[2020-06-22 09:50] LABS: MANUAL DIFF FLAG NO
[2020-06-22 09:57] LABS: Basophils Percent Auto 0.4 % (0-2); Eosinophils Absolute Auto 0.2 X10*3/uL (0.0-0.4); Eosinophils Percent Auto 2.4 % (0-4); Hematocrit 33.1 % (42-52); Hemoglobin 10.3 g/dl (14.0-18.0); Imm Gran Abs Auto 0.03 X10*3/uL (0.00-0.03); Imm Gran Pct Auto 0.3 % (0.0-0.4); Immature Retic Fraction 9.8 % (2.3-13.4); Lymphocytes Absolute Auto 1.8 X10*3/uL (1.2-4.9); Lymphocytes Percent Auto 18.8 % (20-40); Mean Corpuscular HGB Conc 31.1 g/dl (31.0-36.0); Mean Corpuscular Hemoglobin 27.1 pg (27.0-33.0); Mean Corpuscular Volume 87.1 fL (80-98); Monocytes Absolute Auto 0.7 X10*3/uL (0.1-1.2); Monocytes Percent Auto 7.7 % (2-11); Neutrophils Absolute Auto 6.7 X10*3/uL (2.0-8.3); Neutrophils Percent Auto 70.4 % (45-73); Platelet Count 289 X10*3/uL (160-400); Red Cell Distribution Width 13.9 % (11.0-16.0); Retic HGB Equivalent 28.5 pg (30.0-35.0); Reticulocytes Absolute 0.039 X10*6/uL (0.026-0.095); White Blood Count 9.5 X10*3/uL (4.8-10.8)
[2020-06-22 10:27] LABS: Iron 42 mcg/dL (45-160); Percent Iron Saturation 13 % (15-50); Total Iron Binding Capacity 317 mcg/dL (228-428); Unsaturated Iron Binding 275 ug/dL
[2020-06-22 10:34] LABS: Ferritin 25 ng/mL (20-250); Free T4 (Free Thyroxine) 1.03 ng/dL (0.71-1.85); Thyroid Stimulating Hormone 2.48 uIU/mL (0.32-4.0)
[2020-06-22 11:01] LABS: Folate 19.1 ng/mL (> or = 4.0); Vitamin B12 285 pg/mL (200-900)
[2020-06-22 11:06] LABS: Erythrocyte Sedimentation Rate 67 MM/HR (0-15)
== END 2020-06-22 08:59 | disposition home or self-care (01) ==
LOC: HO.LAB 08:58
PROVIDERS: PCP Internal Medicine; Visit Provider Internal Medicine
DX: D64.9 Anemia, unspecified (principal); R51.9 Headache, unspecified
CPT/HCPCS: 36415; 82607; 82728; 82746; 83540; 84439; 84443; 85025; 85045; 85652

== ENCOUNTER → 2020-06-25 13:00 | Outpatient (BNVA) | payer MEDICARE, SELFPAY | PROVIDERS: PCP Internal Medicine; Referring Provider Internal Medicine; Visit Provider Nurse Practitioner Family | DX: R10.9 Unspecified abdominal pain (principal) | CPT/HCPCS: 99212 ==

== ENCOUNTER → 2020-06-27 09:43 | Outpatient (BNVA) | payer MEDICARE, SELFPAY | PROVIDERS: PCP Internal Medicine; Visit Provider Internal Medicine | DX: I48.0 Paroxysmal atrial fibrillation (principal); Z51.81 Encounter for therapeutic drug level monitoring; Z79.01 Long term (current) use of anticoagulants | CPT/HCPCS: 85610; 99211 ==

== ENCOUNTER 2020-07-04 09:29 | Outpatient (REF) | payer MEDICARE, SELFPAY ==
--- NOTE | 2020-07-04 13:45 | MHC.AU.ANO ---
Adult Audiological Evaluation Date of Visit: 07/04/20 Reason for Appointment: Patient reports that he has been increasing gradually increasing hearing difficulty. He finds there are times that he seems to hear okay, and other times when he struggles to follow along in conversation. Does patient feel they have a hearing loss?: Yes If Yes, Which Ear?: Both Ears Has hearing been tested previously?: No Hearing Handicap Inventory: HHIE SCORE: 22 Based on HHIE score, patient has: Mild to moderate perceived hearing handicap Ear History: Recent Ear Drainage: None Reported Family History of Hearing Loss?: No Ear Infections in Childhood: None Reported Bothersome Tinnitus/Ringing/Noises in Ears: Both Ears Ear used on the phone: Left Ear History of occupational noise exposure?: Yes History: No Medical History: Medical History: Afib, COPD, Hypertension, COVID-19 infection in February 2020, Peripheral neuropathy, CVA of Right Internal 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 Otoscopy: Right Ear: Unremarkable Left Ear: Unremarkable Tympanometry: Tympanometry performed due to: To assess integrity of the middle ear system Right Ear: Normal Middle Ear System (Type A) Left Ear: Normal Middle Ear System (Type A) Hearing Evaluation: Transducer(s) Used: Insert Earphones Method: Conventional Audiometry Stimuli Used: Pure Tones Right Ear: Description of Hearing: Moderate to severe sensorineural hearing loss Left Ear: Description of Hearing: Moderate to severe sensorineural hearing loss Speech Recognition Threshold (SRT): Method Used: Recorded Lists Stimuli Used: Spondee Words Right Ear: 60 dBHL Left Ear: 50 dBHL Word Discrimination: Method: Recorded Lists Word Lists Used: NU-6 Right Ear: 80% at 85 dBHL Left Ear: 88% at 85 dBHL Recommendations: Audiological re-evaluation in one year. Trial with amplification is recommended. Hearing Aid Fitting will be scheduled when all materials arrive. See Hearing Aid Evaluation report for more information. Diagnosis: Primary Diagnosis: H90.3 Bilateral Sensorineural Hearing Loss Services Performed: Comprehensive Audiological Evaluation (CPT 03342), Tympanometry (CPT 12880) Signature: Provider: Tim Wade, CCC-A
--- NOTE | 2020-07-04 13:46 | MHC.AU.HAS ---
Hearing Aid Evaluation Date of Visit: 07/04/20 Historical Information: Description of Hearing: Moderate to severe sensorineural hearing loss bilaterally Summary: Patient was seen today for an audiological evaluation (see separate report for details). Patient is interested in amplification. Options were discussed. Hearing Aid Prescription: Based on the individual?s shared listening needs, communication environments, dexterity, desire for connectivity, and personal preferences, the following prescription for amplification has been made: Right ear: Overcoiler: Phonak Model: Audeo P70-R Battery Size: Rechargeable Color: 01 Bistro Attendant: 1M Left ear: Overcoiler: Phonak Model: Audeo P70-R Battery Size: Rechargeable Color: 01 Bistro Attendant: 1M Action Taken/Action Needed: Prior authorization to be requested Medical Clearance to be requested from PCP/ENT Hearing Fitting to be scheduled when materials arrive Primary Diagnosis: H90.3 Bilateral Sensorineural Hearing Loss Signature: Provider: Tim Wade, MENDEZ-A
--- NOTE | 2020-07-04 13:56 | MHC.AU.MED ---
Medical Clearance for Hearing Instrumentation Date: 07/04/20 Patient Name: Pal Da Silva Sr Date of : 1935 Primary Care Provider: Referring Provider: Kenny Lin MD We have seen your patient on 07/04/20 and have determined that they are a candidate for amplification (See accompanying report). Specifically, they would benefit from: Hearing aid use in both ears There is a statute that addresses Medical Evaluation Requirements prior to fitting a patient with a hearing aid. According to [place] statute 265 CMR:6.03(1), (a) General. Except as provided in 265 CMR 6.03(1)(b), a curriculum facilitator shall not sell a hearing aid unless the prospective user has presented to the curriculum facilitator a written statement signed by a licensed physician that states that the patient's hearing loss has been medically evaluated and the patient may be considered a candidate for a hearing aid. The medical evaluation must have taken place within the preceding six months. Please note: Due to the [place] Statute referenced above, we cannot accept a signature other than that of a licensed physician. UTILITY SERVICE WORKER and PA signatures cannot be accepted. I am in agreement with the above recommendation. There is no medical contraindication for hearing instrumentation. Physician Signature Date Physician Name (Printed)
--- NOTE | 2020-07-04 13:57 | MHC.AU.MED ---
Medical Clearance for Hearing Instrumentation Date: 07/04/20 Patient Name: Pal Da Silva Sr Date of : 1935 Primary Care Provider: Referring Provider: Kenny Lin MD We have seen your patient on 07/04/20 and have determined that they are a candidate for amplification (See accompanying report). Specifically, they would benefit from: Hearing aid use in both ears There is a statute that addresses Medical Evaluation Requirements prior to fitting a patient with a hearing aid. According to [place] statute 265 CMR:6.03(1), (a) General. Except as provided in 265 CMR 6.03(1)(b), a hearings reporter shall not sell a hearing aid unless the prospective user has presented to the hearings reporter a written statement signed by a licensed physician that states that the patient's hearing loss has been medically evaluated and the patient may be considered a candidate for a hearing aid. The medical evaluation must have taken place within the preceding six months. Please note: Due to the [place] Statute referenced above, we cannot accept a signature other than that of a licensed physician. DIRECTOR OF MARKETING AND PROMOTIONS and PA signatures cannot be accepted. I am in agreement with the above recommendation. There is no medical contraindication for hearing instrumentation. Physician Signature Date Physician Name (Printed)
== END 2020-07-04 09:30 | disposition home or self-care (01) ==
LOC: HO.SH 09:29
PROVIDERS: Visit Provider Internal Medicine
DX: Z46.1 Encounter for fitting and adjustment of hearing aid (principal); H90.3 Sensorineural hearing loss, bilateral
CPT/HCPCS: 92557; 92567; 92591

== ENCOUNTER → 2020-07-05 09:54 | Outpatient (BNVA) | payer MEDICARE, SELFPAY | PROVIDERS: PCP Internal Medicine; Visit Provider Internal Medicine | DX: I48.0 Paroxysmal atrial fibrillation (principal); Z51.81 Encounter for therapeutic drug level monitoring; Z79.01 Long term (current) use of anticoagulants | CPT/HCPCS: 85610; 99211 ==

== ENCOUNTER 2020-07-10 09:55 | Inpatient (IN) | payer MEDICARE, SELFPAY ==
[2020-07-10] VITALS (11 sets, daily range): BP systolic 132–199; BP diastolic 50–96; PULSE 62–85; RESP 15–20; TEMP 36.4–36.9; O2SAT 95–100; BMI 35.4
--- NOTE | ~2020-07-10 | CT_ITS ---
EXAMINATION: CT angio head neck CLINICAL INFORMATION: Left-sided weakness. COMPARISON: CT scan of the head 04/01/2020. TECHNIQUE: Guest Relations Receptionist images were obtained. A CT angiogram of the head and neck was performed in the arterial phase after the intravenous administration of 70 mL Omnipaque 350. Pre and delayed postcontrast images of the head were also obtained. MIP reconstructions were generated in multiple orientations at the acquisition workstation. Multiple three-dimensional surface rendered images and maximum intensity projection images were generated on a dedicated 3-D lab workstation. Arterial stenoses are measured in accordance with NASCET criteria or similar method if applicable. This CT examination was performed using dose optimization techniques as appropriate, including one or more of the following: Automated exposure control, iterative reconstruction, and adjustment of technique factors (mA and/or kVp) according to patient size (this includes techniques or standardized protocols for targeted exams where dose is matched to indication/reason for exam). Total exam dose-length product 2389 mGy-cm FINDINGS: Head: There is no acute intracranial hemorrhage or abnormal extra-axial collection. Postcontrast images demonstrate a small dome-shaped dural based mass involving the midline anterior skull base best depicted on coronal image 36 of 131 series 22 measuring approximately 3 mm from base apex. No other mass or no abnormal enhancement visualized elsewhere within the intracranial compartment. No intracranial mass effect midline shift. Lateral and third ventricles are normal. No hydrocephalus. Scattered nonspecific foci of hypoattenuation are visualized within the periventricular white matter. Nunez-white matter differentiation is otherwise preserved and there is no evidence of acute territorial infarct. The calvarium and skull base are intact. Mastoid air cells and middle ear cavities are well aerated. No active paranasal sinus disease. CT angiogram neck: Scattered atheromatous caliber indication involve the aortic arch apex. Origins of the major aortic branches are widely patent. Common carotid arteries are patent. Partially calcified atheromatous plaque involves both carotid bifurcations. No stenosis of the extracranial internal carotid arteries. The cervical segments of the vertebral arteries as well as their origins are patent. CT angiogram head: Intracranial internal carotid arteries are patent. The intradural vertebral artery segments and basilar artery are patent. Anterior, middle, and posterior cerebral artery complexes are normal. No high-grade stenosis or proximal occlusion is visualized within the intracranial vessels. The timing of the contrast injection provides adequate opacification of the dural venous sinuses which are patent. Other: Soft tissues of the neck including the thyroid gland are normal. No pathologically enlarged cervical lymph nodes. Although only partially included within the wmley-el-iuhs of this examination there is chronic appearing thickening of the extrapleural fat primarily within the right hemithorax. Extensive pleural-parenchymal scarring is also visualized within both lungs. There is no acute osseous finding. CT/CT angio head neck IMPRESSION: No evidence of acute territorial infarct or hemorrhage. Incidentally there is a small dome-shaped dural based mass involving the anterior cranial fossa along the midline that measures approximately 3 mm from base apex. There is mild associated hyperostosis at the site of the lesion. Findings are most consistent with a meningioma. Otherwise no abnormal mass or enhancement visualized elsewhere within the intracranial compartment. No evidence of acute territorial infarct or hemorrhage. Partially calcified atheromatous plaque involves both carotid bifurcations. No stenosis of the cervical carotid or vertebral arteries. No high-grade stenosis or proximal occlusion is visualized within the intracranial vessels.
--- NOTE | ~2020-07-10 | MR_ITS ---
EXAMINATION: MR BRAIN WITHOUT AND WITH CONTRAST CLINICAL INFORMATION: Cerebrovascular accident. Left-sided weakness. COMPARISON: CT angiogram of the head and neck 07/10/2020. TECHNIQUE: Multiplanar MR imaging of the brain was performed without and with contrast. A total of 9 mL Gadavist was utilized for this examination. FINDINGS: Postcontrast images reveal no abnormal mass or enhancement within the intracranial compartment. No intracranial mass effect or midline shift. Lateral and third ventricles are normal. No hydrocephalus. Midline structures including the cervicomedullary junction are normal. No acute bone marrow signal changes. There are scattered nonspecific foci of T2 FLAIR signal hyperintensity within the periventricular white matter. No acute territorial infarct. No pathological magnetic susceptibility artifact. Intracranial vascular flow voids are grossly maintained. There is no mastoid or middle ear effusion. Mild paranasal sinus mucosal thickening within ethmoid air cells. Globes and orbits are symmetric. MR/MR head/brain wo/w con IMPRESSION: There are scattered chronic small vessel ischemic changes within the periventricular white matter. No evidence of acute territorial infarct or hemorrhage. No abnormal intracranial mass or enhancement.
--- NOTE | 2020-07-10 10:26 | ED_ITS ---
HPI - General Adult General Chief complaint: General Medical Stated complaint: LEFT SIDED NUMBNESS Time Seen by Provider: 07/10/20 10:26 Source: patient Mode of arrival: EMS Limitations: no limitations History of Present Illness HPI narrative: Left sided weakness and numbness for 10 hours. Onset (ago): hour(s) Location: left, upper extremity and lower extremity Severity: mild Quality: other (weakness and numbness) Relieving factors: none Exacerbating factors: none Associated symptoms: denies other symptoms Related Data Home Medications Medication Instructions Recorded Confirmed atorvastatin 80 mg PO DAILY 06/03/20 07/10/20 carvedilol 12.5 mg PO BID 06/03/20 07/10/20 losartan 100 mg PO DAILY 06/03/20 07/10/20 tamsulosin 0.4 mg PO DAILY 06/03/20 07/10/20 verapamil 180 mg PO DAILY 06/03/20 07/10/20 warfarin 5 mg PO DAILY 06/03/20 07/10/20 famotidine 20 mg tablet 20 mg PO DAILY 06/15/20 06/15/20 sennosides 8.6 mg tablet 8.6 mg PO DAILY 06/15/20 06/15/20 sucralfate 1 gram tablet 1 g PO DAILY tab 06/25/20 06/25/20 rfajrtlmobap-leudljzf-aaguzp 1 tab PO DAILY 07/10/20 07/10/20 [Cerovite Senior] Previous Rx's Medication Instructions Recorded pantoprazole 40 mg tablet,delayed 40 mg PO DAILY #90 tab 06/05/20 release ascorbate calcium (vitamin C) 500 500 mg PO DAILY #30 tab 06/22/20 mg tablet cyanocobalamin (vitamin B-12) 1,000 mcg PO DAILY #30 cap 06/22/20 1,000 mcg capsule ferrous sulfate 325 mg (65 mg 325 mg PO DAILY #30 tab 06/22/20 iron) tablet,delayed release methylcellulose (laxative) 500 mg 500 mg PO DAILY #30 tab 06/25/20 tablet furosemide 40 mg tablet 40 mg PO DAILY #90 tab 07/02/20 fluticasone furoate 200 1 ea INHALATION DAILY #60 ea 07/05/20 mcg-vilanterol 25 mcg/dose inhalation powder Allergies Allergy/AdvReac Type Severity Reaction Status Date / Time dabigatran etexilate Allergy Intermediate ITCHING Verified 07/05/20 09:56 [From PRADAXA] JORGE L Inhibitors Allergy Mild UNKNOWN, Verified 07/05/20 09:56 [Jorge L Inhibitors] FOUND IN MEDICAL RECORD 04/[address] GIPSON ezetimibe [From Zetia] Allergy Mild ANAPHYLAXIS Verified 07/05/20 09:56 apixaban [From ELIQUIS] Allergy Unknown UNKNOWN, Verified 07/05/20 09:56 rash rosuvastatin [Crestor] Allergy Unknown myalgia Verified 07/05/20 09:56 Review of Systems Constitutional: Constitutional: Reports no additional constitutional complaints Eyes: Eyes: Reports no additional eye complaints ENT: Denies dizziness Cardiovascular: Cardiovascular: Reports no additional cardiovascular complaints Respiratory: Respiratory: Reports as per HPI Gastrointestinal: Gastrointestinal: Reports no additional gastrointestinal complaints Musculoskeletal: Musculoskeletal: Reports no additional musculoskeletal complaints Integumentary/Breasts: Skin/Breast: Denies rash Neurologic: Reports system reviewed and no additional complaints, except as documented, Denies dizziness and Denies Sensory deficit (Neuro) Psychiatric: Psychiatric: Denies anxiety PMFSH Past Medical History Medical History Acute respiratory failure with hypoxia Afib Anemia Anxiety and depression ARDS (adult respiratory distress syndrome) BPH (benign prostatic hyperplasia) Cholecystitis Chronic abdominal pain Constipation COPD (chronic obstructive pulmonary disease) COVID-19 virus infection Current use of anticoagulant therapy Diastolic CHF, acute on chronic Diverticulitis Frequency of micturition GERD (gastroesophageal reflux disease) Headache History of CVA (cerebrovascular accident) History of rib fracture Hypercholesterolemia Hypertension Hypogammaglobulinemia Obesity (BMI 30-39.9) Obstructive sleep apnea Paroxysmal atrial fibrillation Peripheral neuropathy Peripheral vascular disease Polyarthralgia Primary osteoarthritis of right knee Protrusion of lumbar intervertebral disc Tear of medial meniscus of knee Urinary incontinence Surgical History H/O colonoscopy History of left knee replacement History of tonsillectomy History of total right hip replacement History of transurethral resection of prostate Family History Family History Father No problems noted. Mother Hx of type 1 diabetes mellitus Social History Social History Household Members: Spouse Housing: Apartment Alcohol intake: never Smoking Status: Never smoker Tobacco Type: Cigarette Years Smoked: 30 yrs ago Second Hand Smoke Exposure: No Use of substances other than those prescribed or required for medical reasons: No Advance Directives: Yes Advance Directives on File: Yes Advance Directives Date on File: 04/06/20 service: No Current occupational status: retired Current occupation: Right Handed Physical Exam Vital Signs: Vital Signs: Last Vital Signs Temp 98.3 F 07/10/20 15:55 Pulse 70 07/10/20 15:55 Resp 16 07/10/20 15:55 BP 132/72 07/10/20 15:55 Pulse Ox 98 07/10/20 15:55 Body Mass Index 35.4 Const: Other: elderly male in no acute distress Nutritional Appearance: average body habitus Orientation/consciousness: oriented to person and patient oriented x3 Limitations: no limitations HENMT: Head: Yes normal to inspection Ears: external ears normal General nose exam: Normal external nose present Mouth: Normal oral and palatal mucosa present and oropharynx normal Throat: Yes posterior oropharynx normal Eyes: General: appearance normal, both eyes and all related structures Neck: Other: supple Neck: Yes normal visual inspection Chest: Chest palpation & inspection: normal inspection of the chest Resp: Auscultation: clear to auscultation bilaterally Cardio: Jugular venous distension: no JVD Rate: regular rate Rhythm: regular rhythm Heart sounds: S1 normal heart sound present and S2 normal heart sound present GI: Inspection: Yes normal to inspection Palpation (GI): Soft to palpation, nontender and No hepatosplenomegaly present Auscultation: normal bowel sounds : General: Yes no CVA tenderness Back/Spine/Pelvis: Back: no CVA tenderness Skin: General skin exam: no rashes or lesions noted Neuro: Other: left leg with weakness General: oriented to person and patient oriented x3 Cranial nerves: Yes CN's II-XII intact bilaterally Sensory Exam: No Sensory deficit (Neuro) Extrem: General: Yes normal to inspection Psych: Appearance: grossly normal NIH Stroke Scale Internal: Initial- Upon Arrival Time: 10:35 Level of Consciousness: Alert Level of Consciousness Questions: Answers both questions correctly Level of Consciousness Commands: Performs both tasks correctly Best Gaze: Normal Visual: No visual loss Facial Palsy: Normal Motor Arm (Right): No drift Motor Arm (Left): No drift Motor Leg (Right): No drift Motor Leg (Left): Drift Limb Ataxia: Absent Sensory: Normal Best Language: No aphasia Dysarthia: Normal Extinction and Inattention: No abnormality Score: 1 Course Course Course Narrative: Discussed with Dr. Ferrer will admit for stroke Medical Decision Making MDM Narrative Medical decision making narrative: will admit patient for CVA despite being on coumadin and not having LVO Lab Data Result diagrams: 07/10/20 10:46 07/10/20 10:45 Labs: Lab Results 07/10/20 07/10/20 07/10/20 Range/Units 10:45 10:45 10:45 WBC (4.8-10.8) X10*3/uL RBC (4.60-5.80) X10*6/uL Hgb (14.0-18.0) g/dl Hct (42-52) % MCV (80-98) fL MCH (27.0-33.0) pg MCHC (31.0-36.0) g/dl RDW (11.0-16.0) % Plt Count (160-400) X10*3/uL MPV (9.4-12.4) fL Immature Gran % (Auto) (0.0-0.4) % Neut % (Auto) (45-73) % Lymph % (Auto) (20-40) % [place] % (Auto) (2-11) % Eos % (Auto) (0-4) % Baso % (Auto) (0-2) % Lymph # (Auto) (1.2-4.9) X10*3/uL [place] # (Auto) (0.1-1.2) X10*3/uL Eos # (Auto) (0.0-0.4) X10*3/uL Baso # (Auto) (0.0-0.2) X10*3/uL Abs Immat Gran (auto) (0.00-0.03) X10*3/uL Absolute Neuts (auto) (2.0-8.3) X10*3/uL Absolute Nucleated RBC (0.0-0.012) X10*3/uL Nucleated RBC % (auto) (0.0-0.2) /100WBC PT 38.0 H (10.8-13.0) SEC INR 3.2 H (0.9-1.1) Sodium 144 (135-145) mmol/L Potassium 3.5 (3.3-5.1) mmol/L Chloride 111 H (96-108) mmol/L Carbon Dioxide 27 (22-29) mmol/L Anion Gap 10 L (12-20) BUN 11 (9-16) mg/dL Creatinine 0.88 (0.5-1.4) mg/dL Estim Creat Clear Calc 61.1 Estimated GFR > 60 Random Glucose 139 H D (60-115) mg/dL Calcium 8.4 (8.4-10.2) mg/dL Troponin I High Sens 10.1 (<3.5-35.0) ng/L 07/10/20 Range/Units 10:46 WBC 4.9 (4.8-10.8) X10*3/uL RBC 3.71 L (4.60-5.80) X10*6/uL Hgb 10.0 L (14.0-18.0) g/dl Hct 31.9 L (42-52) % MCV 86.0 (80-98) fL MCH 27.0 (27.0-33.0) pg MCHC 31.3 (31.0-36.0) g/dl RDW 14.3 (11.0-16.0) % Plt Count 233 (160-400) X10*3/uL MPV 9.7 (9.4-12.4) fL Immature Gran % (Auto) 0.2 (0.0-0.4) % Neut % (Auto) 61.0 (45-73) % Lymph % (Auto) 21.1 (20-40) % [place] % (Auto) 12.8 H (2-11) % Eos % (Auto) 4.3 H (0-4) % Baso % (Auto) 0.6 (0-2) % Lymph # (Auto) 1.0 L (1.2-4.9) X10*3/uL [place] # (Auto) 0.6 (0.1-1.2) X10*3/uL Eos # (Auto) 0.2 (0.0-0.4) X10*3/uL Baso # (Auto) 0.0 (0.0-0.2) X10*3/uL Abs Immat Gran (auto) 0.01 (0.00-0.03) X10*3/uL Absolute Neuts (auto) 3.0 (2.0-8.3) X10*3/uL Absolute Nucleated RBC 0.000 (0.0-0.012) X10*3/uL Nucleated RBC % (auto) 0.0 (0.0-0.2) /100WBC PT (10.8-13.0) SEC INR (0.9-1.1) Sodium (135-145) mmol/L Potassium (3.3-5.1) mmol/L Chloride (96-108) mmol/L Carbon Dioxide (22-29) mmol/L Anion Gap (12-20) BUN (9-16) mg/dL Creatinine (0.5-1.4) mg/dL Estim Creat Clear Calc Estimated GFR Random Glucose (60-115) mg/dL Calcium (8.4-10.2) mg/dL Troponin I High Sens (<3.5-35.0) ng/L Imaging Data CT scan - head: Radiologist's impression: IMPRESSION: No evidence of acute territorial infarct or hemorrhage. Incidentally there is a small dome-shaped dural based mass involving the anterior cranial fossa along the midline that measures approximately 3 mm from base apex. There is mild associated hyperostosis at the site of the lesion. Findings are most consistent with a meningioma. Otherwise no abnormal mass or enhancement visualized elsewhere within the intracranial compartment. No evidence of acute territorial infarct or hemorrhage. Partially calcified atheromatous plaque involves both carotid bifurcations. No stenosis of the cervical carotid or vertebral arteries. No high-grade stenosis or proximal occlusion is visualized within the intracranial vessels. ECG Data Attestation: I personally reviewed and interpreted this ECG as follows: Interpretation: sinus rate 70, no st or twave changes Critical Care Time Critical Care Time Attestation: I spent 40 minutes of critical care, with interventions, assessments, speaking to patient, consultants, and family. 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
--- NOTE | 2020-07-10 10:29 | ECG_ITS ---
Test Reason : WEAKNESS Blood Pressure : / mmHG Vent. Rate : 069 BPM Atrial Rate : 069 BPM P-R Int : 258 ms QRS Dur : 128 ms QT Int : 454 ms P-R-T Axes : 020 -27 029 degrees QTc Int : 486 ms Sinus rhythm with 1st degree A-V block Right bundle branch block Possible Lateral infarct (cited on or before 05-APR-2020) Abnormal ECG When compared with ECG of 03-MAY-2020 15:06, Premature atrial complexes are no longer Present ME interval has increased Referred By: Klever Yun Electronically Signed By:DEON DALAL MD
[2020-07-10 10:54] LABS: MANUAL DIFF FLAG NO
[2020-07-10 10:55] LABS: Basophils Percent Auto 0.6 % (0-2); Eosinophils Absolute Auto 0.2 X10*3/uL (0.0-0.4); Eosinophils Percent Auto 4.3 % (0-4); Hematocrit 31.9 % (42-52); Imm Gran Abs Auto 0.01 X10*3/uL (0.00-0.03); Imm Gran Pct Auto 0.2 % (0.0-0.4); Lymphocytes Percent Auto 21.1 % (20-40); Mean Corpuscular HGB Conc 31.3 g/dl (31.0-36.0); Mean Platelet Volume 9.7 fL (9.4-12.4); Monocytes Absolute Auto 0.6 X10*3/uL (0.1-1.2); Monocytes Percent Auto 12.8 % (2-11); Platelet Count 233 X10*3/uL (160-400); Red Blood Count 3.71 X10*6/uL (4.60-5.80); Red Cell Distribution Width 14.3 % (11.0-16.0); White Blood Count 4.9 X10*3/uL (4.8-10.8)
[2020-07-10 11:03] LABS: INTERNATIONAL NORM RATIO 3.2 (0.9-1.1)
[2020-07-10 11:25] LABS: Anion Gap 10 (12-20); Blood Urea Nitrogen 11 mg/dL (9-16); Calcium 8.4 mg/dL (8.4-10.2); Carbon Dioxide 27 mmol/L (22-29); Chloride 111 mmol/L (96-108); Creatinine Clr Calc Pharmacy 61.1; Estimated Glomerular Filt Rate > 60; Glucose Random 139 mg/dL (60-115); Potassium 3.5 mmol/L (3.3-5.1); Sodium 144 mmol/L (135-145)
[2020-07-10 11:26] LABS: Troponin-I High Sensitivity 10.1 ng/L (<3.5-35.0)
[2020-07-10] MEDS: iohexoL 350 MG/ML 100 ML INFUS..BTL IV (12:40)
--- NOTE | 2020-07-10 15:53 | PM.IMHP ---
History of Present Illness Date of Service: 07/10/20 Chief Complaint: left sided numbness This is an 84-year-old male with multiple medical issues including paroxysmal AFib on Coumadin, prior CVA, COVID-19 infection earlier this year who presents to the hospital with complaints of left-sided numbness. The patient went to bed plan around 22:00 without any symptoms and woke up to day with left-sided abnormal sensation/numbness which she reports was initially on the entire left side from head to toe. Due to these reasons he presented to the hospital. He denies any facial drooping or speech abnormalities. Denies feeling weak on 1 side. He does endorse intermittent headache but none currently. Upon arrival to the emergency room, he underwent a CTA of the head and neck which was negative for any large vessel occlusion or any acute infarct or bleed. There was an incidental finding of a 3 mm mass, likely a meningioma. Due to being on Coumadin with INR of 3.2 as well as unknown duration of symptoms he was deemed not a candidate for tPA. His case was discussed by the ED provider with Neurology who recommended MRI and admission for further workup. Review of Systems Review of Systems: General - denies fevers or chills, denies weakness or fatigue HEENT -denies blurred vision, denies headache, denies sore throat Cardiovascular - denies chest pain or palpitations, denies edema Respiratory - denies shortness of breath, coughing, wheezing Gastrointestinal - denies abdominal pain, nausea, vomiting, diarrhea - denies flank pain, denies dysuria, denies frequency or urgency Musculoskeletal - denies back pain, denies hip pain, denies knee pain, denies shoulder pain Neurological - left head/face/arm/leg numbness this AM, now with just LLE numbness, denies slurred speech Skin, denies any bruising or redness Psychiatric - denies any suicidal ideation, hallucinations, homicidal ideation Endocrinology - denies intolerance to hot / cold temperatures [facility] Medical History Acute respiratory failure with hypoxia Afib Anemia Anxiety and depression ARDS (adult respiratory distress syndrome) BPH (benign prostatic hyperplasia) Cholecystitis Chronic abdominal pain Constipation COPD (chronic obstructive pulmonary disease) COVID-19 virus infection Current use of anticoagulant therapy Diastolic CHF, acute on chronic Diverticulitis Frequency of micturition GERD (gastroesophageal reflux disease) Headache History of CVA (cerebrovascular accident) History of rib fracture Hypercholesterolemia Hypertension Hypogammaglobulinemia Obesity (BMI 30-39.9) Obstructive sleep apnea Paroxysmal atrial fibrillation Peripheral neuropathy Peripheral vascular disease Polyarthralgia Primary osteoarthritis of right knee Protrusion of lumbar intervertebral disc Tear of medial meniscus of knee Urinary incontinence Family History Father No problems noted. Mother Hx of type 1 diabetes mellitus Surgical History H/O colonoscopy History of left knee replacement History of tonsillectomy History of total right hip replacement History of transurethral resection of prostate Social History Household Members: Spouse Housing: Apartment Alcohol intake: never Smoking Status: Never smoker Tobacco Type: Cigarette Years Smoked: 30 yrs ago Second Hand Smoke Exposure: No Use of substances other than those prescribed or required for medical reasons: No Advance Directives: Yes Advance Directives on File: Yes Advance Directives Date on File: 04/06/20 service: No Current occupational status: retired Current occupation: Right Handed Meds Allergies Allergy/AdvReac Type Severity Reaction Status Date / Time dabigatran etexilate Allergy Intermediate ITCHING Verified 07/05/20 09:56 [From PRADAXA] JORGE L Inhibitors Allergy Mild UNKNOWN, Verified 07/05/20 09:56 [Jorge L Inhibitors] FOUND IN MEDICAL RECORD 04/[address] GIPSON ezetimibe [From Zetia] Allergy Mild ANAPHYLAXIS Verified 07/05/20 09:56 apixaban [From ELIQUIS] Allergy Unknown UNKNOWN, Verified 07/05/20 09:56 rash rosuvastatin [Crestor] Allergy Unknown myalgia Verified 07/05/20 09:56 Active Medications: Current Medications Generic Name Dose Route Start Last Admin Trade Name Freq PRN Reason Stop Dose Admin Pharmacy Consult 1 each 07/10/20 15:44 Consult Rx Perform Med Rec MISCELLANE ONCE PRN Consult order Home Medications Medication Instructions Recorded Confirmed Last Taken Type atorvastatin 1 tab PO DAILY 06/03/20 06/15/20 Unknown History carvedilol 1 tab PO BID 06/03/20 06/15/20 Unknown History losartan 1 tab PO DAILY 06/03/20 06/15/20 Unknown History tamsulosin 1 cap PO DAILY 06/03/20 06/15/20 Unknown History verapamil 1 cap PO DAILY 06/03/20 06/15/20 Unknown History warfarin 1 tab PO DAILY 06/03/20 07/05/20 Unknown History famotidine 20 mg tablet 20 mg PO DAILY 06/15/20 06/15/20 Unknown History sennosides 8.6 mg tablet 8.6 mg PO DAILY 06/15/20 06/15/20 Unknown History sucralfate 1 gram tablet 1 g PO DAILY tab 06/25/20 06/25/20 Unknown History xcpluwaieyfr-jedwryic-yorfyo 1 tab PO DAILY 07/10/20 07/10/20 Unknown History [Eric Senior] Physical Exam Vital Signs and Narrative: Vital Signs: Last Vital Signs Temp 98.2 F 07/10/20 14:04 Pulse 77 07/10/20 14:28 Resp 17 07/10/20 14:28 BP 148/67 H 07/10/20 14:28 Pulse Ox 98 07/10/20 14:28 Body Mass Index 35.4 Const: Other: Constitutional - Awake and Alert, No apparent distress Eyes - PERRLA, EOMI Cardiovascular - S1S2, RRR, No edema Respiratory - Normal lung expansion, Normal respiratory effort, No respiratory distress, CTA bilaterally Gastrointestinal - NT / ND; +BS; No rebound or guarding - No CVA tenderness Extremities - no calf tenderness bilaterally, no swelling Musculoskeletal - Normal inspection, normal ROM Skin - Warm/Dry Neurological - Alert & oriented x3, RUE/RLE strength normal; LUE strength normal; LLE strength 4+/5; altered sensation on the LLE medial side of ankle, speech normal and comprehensible, no facial asymmetry Psychological - Appropriate affect Results Labs CBC and Chem 7: 07/10/20 10:46 07/10/20 10:45 Labs: Laboratory Results - last 24 hr 07/10/20 07/10/20 07/10/20 10:45 10:45 10:45 MCV MCH MCHC RDW Plt Count MPV Immature Gran % (Auto) Neut % (Auto) Lymph % (Auto) [place] % (Auto) Eos % (Auto) Baso % (Auto) Lymph # (Auto) [place] # (Auto) Eos # (Auto) Baso # (Auto) Abs Immat Gran (auto) Absolute Neuts (auto) Absolute Nucleated RBC Nucleated RBC % (auto) PT 38.0 H INR 3.2 H Anion Gap 10 L Estim Creat Clear Calc 61.1 Estimated GFR > 60 Random Glucose 139 H D Calcium 8.4 Troponin I High Sens 10.1 07/10/20 10:46 MCV 86.0 MCH 27.0 MCHC 31.3 RDW 14.3 Plt Count 233 MPV 9.7 Immature Gran % (Auto) 0.2 Neut % (Auto) 61.0 Lymph % (Auto) 21.1 [place] % (Auto) 12.8 H Eos % (Auto) 4.3 H Baso % (Auto) 0.6 Lymph # (Auto) 1.0 L [place] # (Auto) 0.6 Eos # (Auto) 0.2 Baso # (Auto) 0.0 Abs Immat Gran (auto) 0.01 Absolute Neuts (auto) 3.0 Absolute Nucleated RBC 0.000 Nucleated RBC % (auto) 0.0 PT INR Anion Gap Estim Creat Clear Calc Estimated GFR Random Glucose Calcium Troponin I High Sens Imaging Radiologist's Impressions: Impressions Head/Neck CTA 07/10/20 10:29 IMPRESSION: No evidence of acute territorial infarct or hemorrhage. Incidentally there is a small dome-shaped dural based mass involving the anterior cranial fossa along the midline that measures approximately 3 mm from base apex. There is mild associated hyperostosis at the site of the lesion. Findings are most consistent with a meningioma. Otherwise no abnormal mass or enhancement visualized elsewhere within the intracranial compartment. No evidence of acute territorial infarct or hemorrhage. Partially calcified atheromatous plaque involves both carotid bifurcations. No stenosis of the cervical carotid or vertebral arteries. No high-grade stenosis or proximal occlusion is visualized within the intracranial vessels. Assessment and Plan (1) Left sided numbness: Status: Acute This is an 84-year-old male with a past medical history significant for multiple medical problems including prior CVA, paroxysmal AFib on Coumadin, hyperlipidemia, COVID-19 infection earlier this year who presents to the hospital after waking up and having left-sided numbness which initially he reported was on the complete left side and now reports is at the left ankle. His CTA of the head and neck is negative for any large vessel occlusion in due to his persistent numbness, possibility of a stroke is raised and as such he is admitted for further workup 1. Left-sided numbness Possible acute CVA Out of the tPA window as he woke up with the symptoms and additionally he is on Coumadin Will need MRI and if indeed he does have a small stroke, likely would be Coumadin failure and will require transition to a alternative anticoagulation Neurology consult - will hold off further work up until formally evaluated by neurology Usual stroke protocol -- RN to completed bedside swallow screen, PT/OT, formal 2. Paroxysmal atrial fibrillation Currently in sinus Continue his rate control meds once med rec is completed INR is 3.2 today, will hold Coumadin and re-evaluate INR tomorrow 3. Possible meningioma 3mm on the CT scan doubt this is causing his symptoms MRI and neurology input 4. GERD PPI + baseline meds 5. BPH flomax 6. HTN continue baseline meds his medications will be continued once med rec is completed Full Code DVT pptx, Coumadin Endorses his spouse as his HCP
--- NOTE | 2020-07-10 16:24 | PC.NURSE ---
Med-rec, covid-swab, and dysphagia screen completed for admission
[2020-07-10] MEDS: Aspirin Enteric Coated 81 MG TABLET.DR PO (16:26)
[2020-07-10 17:07] LABS: IDNOW Serial# 9DD0AD1C
[2020-07-10 17:08] LABS: COVID-19 Test Negative (Negative)
[2020-07-10] MEDS: Atorvastatin Calcium 80 MG TABLET PO (20:17)
[2020-07-11] VITALS (12 sets, daily range): BP systolic 161–217; BP diastolic 72–88; PULSE 66–97; RESP 16–18; TEMP 36.2–36.9; O2SAT 95–98
[2020-07-11] MEDS: Acetaminophen 325 MG TABLET 650 MG PO (02:04)
[2020-07-11 05:17] LABS: INTERNATIONAL NORM RATIO 2.7 (0.9-1.1); Prothrombin Time 32.5 SEC (10.8-13.0)
[2020-07-11 05:32] LABS: Cholesterol 129 mg/dL; HDL Cholesterol 29 mg/dL; LDL Cholesterol Calculated 73 mg/dl; Triglycerides 136 mg/dL
[2020-07-11] MEDS: Omeprazole 20 MG CAPSULE.DR PO (05:32)
[2020-07-11] MEDS: Fluticasone/Vilanterol 200/25 BLST.W.DEV 1 PUFF INHALE (07:46)
--- NOTE | 2020-07-11 09:03 | P.CNNE_ITS ---
History of Present Illness Data of Consult Service Date: 07/11/20 Primary Care Provider: Kenny Gipson MD 84 years old man who came to hospital with 1 day history of left-sided numbness. The night before he noted that his left side from left foot to legs trunk arm and face were numb or different. There was no weakness dizziness speech or language difficulty or pain. He took a couple of Tylenol and slept. When he woke up he still was numb and then decided to come to emergency room. Now his symptoms were mostly resolved except mild numbness and left foreleg. Review of Systems Review of Systems: No recent trauma fever chills or cold or flu-like illness. No cardiac symptoms PMFSH Past Medical History Medical History Acute respiratory failure with hypoxia Afib Anemia Anxiety and depression ARDS (adult respiratory distress syndrome) BPH (benign prostatic hyperplasia) Cholecystitis Chronic abdominal pain Constipation COPD (chronic obstructive pulmonary disease) COVID-19 virus infection Current use of anticoagulant therapy Diastolic CHF, acute on chronic Diverticulitis Frequency of micturition GERD (gastroesophageal reflux disease) Headache History of CVA (cerebrovascular accident) History of rib fracture Hypercholesterolemia Hypertension Hypogammaglobulinemia Obesity (BMI 30-39.9) Obstructive sleep apnea Paroxysmal atrial fibrillation Peripheral neuropathy Peripheral vascular disease Polyarthralgia Primary osteoarthritis of right knee Protrusion of lumbar intervertebral disc Tear of medial meniscus of knee Urinary incontinence Family History Family History Father No problems noted. Mother Hx of type 1 diabetes mellitus Surgical History Surgical History H/O colonoscopy History of left knee replacement History of tonsillectomy History of total right hip replacement History of transurethral resection of prostate Social History Social History Household Members: Spouse Housing: House Do you presently have visiting nurse or other home services: No Alcohol intake: never Smoking Status: Never smoker Tobacco Type: Cigarette Years Smoked: 30 yrs ago Second Hand Smoke Exposure: No Use of substances other than those prescribed or required for medical reasons: No Currently Displaying Signs/Symptoms of Drug Intoxication Withdrawal: No Have you been hit, kicked, punched, or otherwise hurt by someone within the past year? If so, by whom?: No Do you feel safe in your current relationship?: Yes Is there a partner from a previous relationship who is making you feel unsafe now?: No Are you made to feel afraid or neglected: No Advance Directives: Yes Advance Directives on File: Yes Advance Directives Date on File: 04/06/20 Do you have thoughts of harming others: None Do you have a plan to hurt others: No Plan Recently lost weight without trying: No Nutrition Risks: No Nutritional Risk service: No Current occupational status: retired Current occupation: Right Handed Meds Allergies Allergy/AdvReac Type Severity Reaction Status Date / Time dabigatran etexilate Allergy Intermediate ITCHING Verified 07/05/20 09:56 [From PRADAXA] JORGE L Inhibitors Allergy Mild UNKNOWN, Verified 07/05/20 09:56 [Jorge L Inhibitors] FOUND IN MEDICAL RECORD 04/[address] GIPSON ezetimibe [From Zetia] Allergy Mild ANAPHYLAXIS Verified 07/05/20 09:56 apixaban [From ELIQUIS] Allergy Unknown UNKNOWN, Verified 07/05/20 09:56 rash rosuvastatin [Crestor] Allergy Unknown myalgia Verified 07/05/20 09:56 Active Medications: Current Medications Generic Name Dose Route Start Last Admin Trade Name Freq PRN Reason Stop Dose Admin Acetaminophen 650 mg 07/10/20 17:51 07/11/20 02:04 Acetaminophen 325 Mg Tablet PO 650 mg Q6H PRN Administration Pain, Mild (Pain Scale 1-3) Aspirin 81 mg 07/10/20 16:13 07/10/20 16:26 Aspirin Enteric Coated 81 Mg Tablet.Dr GIPSON 81 mg DAILY DEEPAK Administration Atorvastatin Calcium 80 mg 07/10/20 21:00 07/10/20 20:17 Atorvastatin Calcium 80 Mg Tablet PO 80 mg BEDTIME DEEPAK Administration Cyanocobalamin 1,000 mcg 07/11/20 09:00 Cyanocobalamin (Vitamin B-12) 1,000 Mcg Tablet PO DAILY DEEPAK Fluticasone/Vilanterol 1 puff 07/11/20 08:00 07/11/20 07:46 Fluticasone/Vilanterol 200/25 Blst.W.Dev INHALE 1 puff RDAILY DEEPAK Administration Omeprazole 20 mg 07/11/20 06:30 07/11/20 05:32 Omeprazole 20 Mg Capsule. PO 20 mg DAILY@0630 [facility] Administration Pharmacy Consult 1 each 07/10/20 15:44 Consult Rx Perform Med Rec MISCELLANE ONCE PRN Consult order Tamsulosin HCl 0.4 mg 07/11/20 09:00 Tamsulosin Hcl 0.4 Mg Capsule PO DAILY [facility] Home Medications Medication Instructions Recorded Confirmed Last Taken Type atorvastatin 80 mg PO BEDTIME 06/03/20 07/10/20 07/09/10 History carvedilol 12.5 mg PO BID 06/03/20 07/10/20 07/10/20 09:00 History losartan 100 mg PO DAILY 06/03/20 07/10/20 07/10/20 09:00 History tamsulosin 0.4 mg PO DAILY 06/03/20 07/10/20 07/10/20 09:00 History verapamil 180 mg PO DAILY 06/03/20 07/10/20 07/10/20 09:00 History famotidine 20 mg tablet 20 mg PO DAILY 06/15/20 07/10/20 07/10/20 09:00 History sennosides 8.6 mg tablet 8.6 mg PO DAILY 06/15/20 07/10/20 07/10/20 09:00 History cyanocobalamin (vitamin B-12) 1,000 mcg PO BEDTIME 07/10/20 07/10/20 07/09/20 History [id number] 1 tab PO DAILY 07/10/20 07/10/20 07/10/20 09:00 History [Cerovite Senior] warfarin 2.5 mg PO TUFR 07/10/20 07/10/20 07/06/20 History warfarin 5 mg PO SUMOWETHSA 07/10/20 07/10/20 07/09/20 History Physical Exam Vital Signs: Vital Signs: Last Vital Signs Temp 98.5 F 07/11/20 08:00 Pulse 70 07/11/20 08:00 Resp 16 07/11/20 08:00 BP 168/75 H 07/11/20 08:00 Pulse Ox 98 07/11/20 08:00 Body Mass Index 35.4 He was alert and awake with normal spontaneity of speech fluency comprehension and affect. Pupils were equal and reactive to light and extraocular muscles were intact. Visual leung are full to confrontation. Face was symmetrical. Tongue was midline. Teeth were missing. There was no obvious focal weakness. Deep tendon reflexes were absent with flexor plantars. He was walking with a walker with no obvious asymmetry or ataxia. Affect was normal. Results Labs CBC & Chem 7: 07/10/20 10:46 07/10/20 10:45 Labs: Short CBC 07/10/20 Range/Units 10:46 WBC 4.9 (4.8-10.8) X10*3/uL Hgb 10.0 L (14.0-18.0) g/dl Hct 31.9 L (42-52) % Plt Count 233 (160-400) X10*3/uL BMP 07/10/20 10:45 Sodium 144 Potassium 3.5 Chloride 111 H Carbon Dioxide 27 BUN 11 Creatinine 0.88 Calcium 8.4 His CTA of brain and neck reveal no obvious acute lesion. Mild chronic microvascular ischemic changes and mild cerebral atrophy was noted. Small meningioma was also noted. Assessment and Plan (1) Left sided numbness: Status: Acute 84 years old man who probably had her small microvascular right lateral thalamic ischemic infarct. This type of infarcts are typically atherothrombotic triggered by high blood pressure. Mainstay of management is anti-platelet therapy, statin, and blood pressure control. I would recommend combination of baby aspirin and Plavix 75 mg for next 6 months. 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
--- NOTE | 2020-07-11 09:43 | HO.PM.IMPN ---
Subjective Subjective Date of Service: 07/11/20 Interval History: probable cva Review of Systems patient's left sided numbness seems to be improving but still has left foot numbness Denies any chest pain or shortness of breath or abdominal pain or fever chills. Physical Exam Vital Signs: Vital Signs: Last Vital Signs Temp 98.5 F 07/11/20 08:00 Pulse 70 07/11/20 08:00 Resp 16 07/11/20 08:00 BP 168/75 H 07/11/20 08:00 Pulse Ox 98 07/11/20 08:00 Body Mass Index 35.4 Physical exam: Cvs: rrr, [id number] , no murmur res: clear to auscultation ,no rhonchii or wheezing abd: no rebound or guarding ,nt, bs present. ext pulses present , no cyanosis neuro: axo3 , nonfocal, left foot numbness Objective Data Current Medications Generic Name Dose Route Start Last Admin Trade Name Freq PRN Reason Stop Dose Admin Acetaminophen 650 mg 07/10/20 17:51 07/11/20 02:04 Acetaminophen 325 Mg Tablet PO 650 mg Q6H PRN Administration Pain, Mild (Pain Scale 1-3) Aspirin 81 mg 07/10/20 16:13 07/10/20 16:26 Aspirin Enteric Coated 81 Mg Tablet. PO 81 mg DAILY DEEPAK Administration Atorvastatin Calcium 80 mg 07/10/20 21:00 07/10/20 20:17 Atorvastatin Calcium 80 Mg Tablet PO 80 mg BEDTIME DEEPAK Administration Cyanocobalamin 1,000 mcg 07/11/20 09:00 Cyanocobalamin (Vitamin B-12) 1,000 Mcg Tablet PO DAILY [facility] Fluticasone/Vilanterol 1 puff 07/11/20 08:00 07/11/20 07:46 Fluticasone/Vilanterol 200/25 Blst.W.Dev INHALE 1 puff RDAILY [facility] Administration Omeprazole 20 mg 07/11/20 06:30 07/11/20 05:32 Omeprazole 20 Mg Capsule. PO 20 mg DAILY@0630 [facility] Administration Pharmacy Consult 1 each 07/10/20 15:44 Consult Rx Perform Med Rec MISCELLANE ONCE PRN Consult order Tamsulosin HCl 0.4 mg 07/11/20 09:00 Tamsulosin Hcl 0.4 Mg Capsule PO DAILY [facility] Labs CBC & Chem 7: 07/10/20 10:46 07/10/20 10:45 Assessment and Plan (1) Meningioma: Status: Acute (2) Left sided numbness: Status: Acute Assessment and Plan: 84-year-old male with a past medical history significant for multiple medical problems including prior CVA, paroxysmal AFib on Coumadin, hyperlipidemia, COVID-19 infection earlier this year who presents to the hospital after waking up and having left-sided numbness which initially he reported was on the complete left side and now reports is at the left ankle. His CTA of the head and neck is negative for any large vessel occlusion in due to his persistent numbness, possibility of a stroke is raised and as such he is admitted for further workup 1. Left-sided numbness-Possible acute CVA Out of the tPA window as he woke up with the symptoms and additionally he is on Coumadin. inr therapeutic as per neuro recomended to continue warfarin since allergic to pradaxa and epixiban PT/OT, formal 2. Paroxysmal atrial fibrillation Currently in sinus Continue his rate control meds once med rec is completed INR is 2.7 today, will hold Coumadin and re-evaluate INR tomorrow 3. Possible meningioma 3mm on the CT scan doubt this is causing his symptoms MRI pending 4. GERD PPI + baseline meds 5. BPH flomax 6. HTN continue baseline meds
[2020-07-11] MEDS: Cyanocobalamin (Vitamin B-12) 1,000 MCG TABLET 1000 MCG PO (09:50)
[2020-07-11] MEDS: Tamsulosin HCL 0.4 MG CAPSULE PO (09:53)
[2020-07-11] MEDS: Aspirin Enteric Coated 81 MG TABLET.DR PO (09:53)
--- NOTE | 2020-07-11 11:58 | MHC.CM.PN ---
CM met with patient at the bedside who reports he amb with a walker, does have PVA with [facility] and lives with his . patient does have a HCP [place] [phone] and a copy is on file. Discussed discharge plan, home with resumption of [employer] services. Patient will need assistance with transportation. IMM addressed. CM will continue to follow patient for discharge needs.
--- NOTE | 2020-07-11 12:09 | MHC.STROKE ---
07/10/20 EMS PRE-NOTIFIED AT 0952, NO STROKE ALERT CALLED IN, ARRIVED 0955. C/O LEFT SIDED NUMBNESS/WEAKNESS, NIHSS = [address]G DRIFT. CT, CTA HEAD/NECK DONE, NO BLEED NO LVO. INR 3.2 ON COUMADIN. LAST KNOWN WELL 07/09/20 AT 2200, SYMPTOMS DISCOVERED 07/10/20 AT 0200. HE IS EXCLUDED FROM TPA DUE TO INR 3.2 AND DELAY IN ARRIVAL, PLUS NIHSS = 1. STROKE SEVERITY MILD NON-DISABLING. HE HAS MULTIPLE RISK FACTORS, HE PASSED SWALLOW SCREEN IN ED PRIOR TO ANY PO AT 1621. I CHECKED WITH THE [facility]TICOAGULATION CLINIC AND HE IS COMPLIANT WITH HIS APPOINTMENTS, ALTHOUGH HE WAS IN A SNF AND THERE WAS A GAP WITH THE VNA FROM THE SNF TO HOME. HIS LAST INR WAS 1.9 ON 06/27/20. HE IS ALLERGIC TO ALL NOAC'S, SEE LIST. I MET WITH THE PATIENT AND HE WAS ON HIS WAY TO MRI. I DISCUSSED THE CASE WITH DR RICHTER AND THE PLAN OF CARE WAS REVIEWED. HE HAD RECOMMENDED ASPIRIN AND PLAVIX FOR [address] RICHTER WILL REVIEW THIS AGAIN. I COMMUNICATED THIS TO DR ANTONY. H&H 12/23, HISTORY OF ANEMIA. I WILL CONTINUE TO FOLLOW.
[2020-07-11] MEDS: carvediloL 6.25 MG TABLET PO (15:49)
[2020-07-11] MEDS: VerapamiL HCL SR 180 MG TABLET.ER PO (19:27)
[2020-07-11] MEDS: Losartan Potassium 50 MG TABLET 100 MG PO (21:22)
[2020-07-11] MEDS: Atorvastatin Calcium 80 MG TABLET PO (21:22)
[2020-07-12] VITALS (11 sets, daily range): BP systolic 104–170; BP diastolic 57–76; PULSE 54–89; RESP 16–20; TEMP 36.5–36.9; O2SAT 96–99
[2020-07-12] MEDS: Omeprazole 20 MG CAPSULE.DR PO (05:32)
[2020-07-12] MEDS: Fluticasone/Vilanterol 200/25 BLST.W.DEV 1 PUFF INHALE (07:53)
[2020-07-12] MEDS: Cyanocobalamin (Vitamin B-12) 1,000 MCG TABLET 1000 MCG PO (08:49)
[2020-07-12] MEDS: Tamsulosin HCL 0.4 MG CAPSULE PO (08:49)
[2020-07-12] MEDS: Aspirin Enteric Coated 81 MG TABLET.DR PO (08:49)
[2020-07-12 09:18] LABS: INTERNATIONAL NORM RATIO 1.9 (0.9-1.1); Prothrombin Time 23.1 SEC (10.8-13.0)
[2020-07-12] MEDS: carvediloL 12.5 MG TABLET PO ×2 (09:23→20:29)
[2020-07-12] MEDS: VerapamiL HCL SR 180 MG TABLET.ER PO (09:24)
[2020-07-12] MEDS: Warfarin Sodium 6 MG TABLET PO (16:56)
--- NOTE | 2020-07-12 17:21 | HO.PM.IMPN ---
Subjective Subjective Date of Service: 07/13/20 Interval History: htn Review of Systems Page patient denies any chest pain or shortness of breath or abdominal pain or fever or chills Physical Exam Vital Signs: Vital Signs: Last Vital Signs Temp 97.7 F 07/12/20 15:07 Pulse 54 07/12/20 15:07 Resp 18 07/12/20 15:07 BP 104/57 L 07/12/20 15:07 Pulse Ox 98 07/12/20 15:07 Body Mass Index 35.4 Physical exam: Cvs: rrr, [id number] , no murmur res: clear to auscultation ,no rhonchii or wheezing abd: no rebound or guarding ,nt, bs present. ext pulses present , no cyanosis neuro: axo3 , nonfocal, left foot numbness Objective Data Current Medications Generic Name Dose Route Start Last Admin Trade Name Freq PRN Reason Stop Dose Admin Acetaminophen 650 mg 07/10/20 17:51 07/11/20 02:04 Acetaminophen 325 Mg Tablet PO 650 mg Q6H PRN Administration Pain, Mild (Pain Scale 1-3) Aspirin 81 mg 07/10/20 16:13 07/12/20 08:49 Aspirin Enteric Coated 81 Mg Tablet. PO 81 mg DAILY DEEPAK Administration Atorvastatin Calcium 80 mg 07/10/20 21:00 07/11/20 21:22 Atorvastatin Calcium 80 Mg Tablet PO 80 mg BEDTIME DEEPAK Administration Carvedilol 12.5 mg 07/12/20 09:00 07/12/20 09:23 Carvedilol 12.5 Mg Tablet PO 12.5 mg BID DEEPAK Administration Protocol Cyanocobalamin 1,000 mcg 07/11/20 09:00 07/12/20 08:49 Cyanocobalamin (Vitamin B-12) 1,000 Mcg Tablet PO 1,000 mcg DAILY DEEPAK Administration Fluticasone/Vilanterol 1 puff 07/11/20 08:00 07/12/20 07:53 Fluticasone/Vilanterol 200/25 Blst.W.Dev INHALE 1 puff RDAILY DEEPAK Administration Omeprazole 20 mg 07/11/20 06:30 07/12/20 05:32 Omeprazole 20 Mg Capsule. PO 20 mg DAILY@0630 [facility] Administration Pharmacy Consult 1 each 07/10/20 15:44 Consult Rx Perform Med Rec MISCELLANE ONCE PRN Consult order Tamsulosin HCl 0.4 mg 07/11/20 09:00 07/12/20 08:49 Tamsulosin Hcl 0.4 Mg Capsule PO 0.4 mg DAILY DEEPAK Administration Verapamil HCl 180 mg 07/12/20 09:00 07/12/20 09:24 Verapamil Hcl Sr 180 Mg Tablet.Er PO 180 mg DAILY DEEPAK Administration Protocol Warfarin Sodium 2.5 mg 07/13/20 18:00 Warfarin Sodium 2.5 Mg Tablet PO TUFR [facility] Warfarin Sodium 5 mg 07/12/20 18:00 Warfarin Sodium 5 Mg Tablet PO SUMOWETHSA [facility] Warfarin Sodium 6 mg 07/12/20 18:00 07/12/20 16:56 Warfarin Sodium 6 Mg Tablet PO 07/12/20 18:01 6 mg ONCE@1800 [facility] Administration Labs CBC & Chem 7: 07/10/20 10:46 07/10/20 10:45 Assessment and Plan (1) Left sided numbness: Status: Acute Assessment and Plan: 84-year-old male with a past medical history significant for multiple medical problems including prior CVA, paroxysmal AFib on Coumadin, hyperlipidemia, COVID-19 infection earlier this year who presents to the hospital after waking up and having left-sided numbness which initially he reported was on the complete left side and now reports is at the left ankle. His CTA of the head and neck is negative for any large vessel occlusion in due to his persistent numbness, possibility of a stroke is raised and as such he is admitted for further workup 1. Left-sided numbness-Possible acute CVA Out of the tPA window as he woke up with the symptoms and additionally he is on Coumadin. inr 1.9 as per neuro recomended to continue warfarin adjusted 6 mg since allergic to pradaxa and epixiban PT/OT, formal 2. Paroxysmal atrial fibrillation: Continue his rate control meds once med rec is completed INR is 1.9 today, started Coumadin and re-evaluate INR tomorrow if still low we will add lovenox bridging 3. Possible meningioma 3mm on the CT scan doubt this is causing his symptoms MRI noted -not likely cva 4. GERD PPI + baseline meds 5. BPH flomax 6. HTN continue baseline meds
[2020-07-12] MEDS: Atorvastatin Calcium 80 MG TABLET PO (20:29)
[2020-07-13 03:34] VITALS: BP 148/70; PULSE 61; RESP 18; TEMP 36.8; O2SAT 97
[2020-07-13] MEDS: Omeprazole 20 MG CAPSULE.DR PO (06:51)
[2020-07-13 06:56] LABS: INTERNATIONAL NORM RATIO 1.6 (0.9-1.1); Prothrombin Time 19.4 SEC (10.8-13.0)
[2020-07-13] MEDS: Fluticasone/Vilanterol 200/25 BLST.W.DEV 1 PUFF INHALE (07:27)
[2020-07-13 07:28] VITALS: PULSE 69
[2020-07-13 07:48] VITALS: BP 151/67; PULSE 68; RESP 20; TEMP 36.2; O2SAT 98
[2020-07-13] MEDS: Aspirin Enteric Coated 81 MG TABLET.DR PO (08:50)
[2020-07-13] MEDS: Tamsulosin HCL 0.4 MG CAPSULE PO (08:50)
[2020-07-13] MEDS: Cyanocobalamin (Vitamin B-12) 1,000 MCG TABLET 1000 MCG PO (08:50)
[2020-07-13] MEDS: carvediloL 12.5 MG TABLET PO (08:50)
[2020-07-13] MEDS: VerapamiL HCL SR 180 MG TABLET.ER PO (08:50)
[2020-07-13 11:46] VITALS: BP 160/59; PULSE 69; RESP 20; TEMP 36.8; O2SAT 97
[2020-07-13] MEDS: Enoxaparin Sodium 150 MG/ML SYRINGE 130 MG SUBCUT (14:50)
[2020-07-13] MEDS: Warfarin Sodium 5 MG TABLET PO (14:50)
--- NOTE | 2020-07-13 15:17 | PM.DS ---
DS: Providers Provider Date of Service: 08/09/20 Date of admission: 07/10/20 15:51 Primary care physician: Kenny Lin MD Consults: 07/10/20 17:51 Consult to Neurology Routine Consulting Provider: Manuel Pugh Reason for consultation: left sided numbness DS: Diagnosis Discharge Diagnosis (1) Left sided numbness: Status: Acute DS: Medications Discharge Medications Home Medications: Home Medications Medication Instructions Recorded Confirmed atorvastatin 80 mg PO BEDTIME 06/03/20 07/10/20 carvedilol 12.5 mg PO BID 06/03/20 07/10/20 losartan 100 mg PO DAILY 06/03/20 07/10/20 tamsulosin 0.4 mg PO DAILY 06/03/20 07/10/20 verapamil 180 mg PO DAILY 06/03/20 07/10/20 famotidine 20 mg tablet 20 mg PO DAILY 06/15/20 07/10/20 sennosides 8.6 mg tablet 8.6 mg PO DAILY 06/15/20 07/10/20 cyanocobalamin (vitamin B-12) 1,000 mcg PO BEDTIME 07/10/20 07/10/20 vnddisawxbrl-htzvheyj-gkjsih 1 tab PO DAILY 07/10/20 07/10/20 [Cerovite Senior] warfarin 2.5 mg PO TUFR 07/10/20 07/10/20 warfarin 5 mg PO SUMOWETHSA 07/10/20 07/10/20 Previous Rx's Medication Instructions Recorded pantoprazole 40 mg tablet,delayed 40 mg PO DAILY #90 tab 06/05/20 release ascorbate calcium (vitamin C) 500 500 mg PO DAILY #30 tab 06/22/20 mg tablet ferrous sulfate 325 mg (65 mg 325 mg PO DAILY #30 tab 06/22/20 iron) tablet,delayed release furosemide 40 mg tablet 40 mg PO DAILY #90 tab 07/02/20 fluticasone furoate 200 1 ea INHALATION DAILY #60 ea 07/05/20 mcg-vilanterol 25 mcg/dose inhalation powder enoxaparin 130 mg SUBCUT ONCE #2 ml 07/13/20 DS: Summary Hospital Course Hospital Course: 84-year-old male with a past medical history significant for multiple medical problems including prior CVA, paroxysmal AFib on Coumadin, hyperlipidemia, COVID-19 infection earlier this year who presents to the hospital after waking up and having left-sided numbness which initially he reported was on the complete left side and now reports is at the left ankle. His CTA of the head and neck is negative for any large vessel occlusion in due to his persistent numbness, possibility of a stroke is raised and as such he is admitted for further workup. hospital course problem section: 1. Left-sided numbness- initially was suspicious for CVA, subsequently patient's symptoms seems to be resolved, Patient came to the hospital because of left sided numbness which is significantly improved spontaneously. Neurological workup including MRI -does not show any evidence of New stroke. patient's INR is subtherapeutic, patient was advised to bridged with Lovenox and adjusted warfarin 5 mg for now will give weak and bridging with Lovenox: monitor INR closely daily, further management outpatient as per PCP. hypertension: Patient blood pressure is fluctuating, will continue his home hypertension regimen. Further management outpatient as per PCP. Above management discussed with the patient in detail length he understand and in agreement with the above plan. 2. Paroxysmal atrial fibrillation: Continue his rate control meds once med rec is completed INR is 1.6 today as above. 3. Possible meningioma 3mm on the CT scan doubt this is causing his symptoms MRI noted -not likely cva. not mention of meningioma as per report. neuro saw the patient, no further intervention follow up outpatiently with neuro. patient To go home with VNA Above management discussed with the patient in detail length she understand and in agreement with the above plan, time spent 50 minutes and 50% time spent on counseling. Significant findings: As above. Procedures performed: None. Treatment and response: As above. Complications: None. Time Spent with Patient Time attestation: Total time spent providing and/or coordinating discharge services: Discharge coordination time: Greater than 30 minutes Quality: Stroke Does the patient have a stroke diagnosis?: No Pt Provided Written Stroke Discharge Instructions: Patient given written information Physical Exam Vital Signs: Vital Signs: Last Vital Signs Temp 98.2 F 07/13/20 11:46 Pulse 69 07/13/20 11:46 Resp 20 07/13/20 11:46 BP 160/59 H 07/13/20 11:46 Pulse Ox 97 07/13/20 11:46 Body Mass Index 35.4 physical exam: Cvs: rrr, [id number] , no murmur res: clear to auscultation ,no rhonchii or wheezing abd: no rebound or guarding ,nt, bs present. ext pulses present , no cyanosis neuro: axo3 , nonfocal. DS: Data Data Completed and Pending Completed studies during hospitalization [Text1]: Procedures Insertion of Endotracheal Airway into Trachea, Via Natural or Artificial Opening Endoscopic (04/01/20) Insertion of Infusion Device into Superior Vena Cava, Percutaneous Approach (04/01/20) Introduction of Remdesivir Anti-infective into Peripheral Vein, Percutaneous Approach, [employer] (04/01/20) Respiratory Ventilation, Greater than 96 Consecutive Hours (04/01/20) Transfusion of Convalescent Plasma (Nonautologous) into Peripheral Vein, Percutaneous Approach, [employer] (04/01/20) Ultrasonography of Superior Vena Cava, Guidance (04/01/20) Labs on day of discharge: Laboratory Results - last 24 hr 07/13/20 05:13 PT 19.4 H INR 1.6 H Discharge Plan Discharge Patient Disposition: Home Health Service Discharge Diagnosis: left lower ext numbness ,htn, suptherapeutic inr Referrals: [facility] [Other] - 1 Week (INR and daily lovenox) Po,Kenny Chavez MD [Primary Care Provider] - 1 Week Discharge Medications: Continued pantoprazole 40 mg tablet,delayed release (DR/EC) 40 mg PO DAILY Qty: 90 RF: 1 ferrous sulfate 325 mg (65 mg iron) tablet,delayed release (DR/EC) 325 mg PO DAILY Qty: 30 RF: 3 ascorbate calcium (vitamin C) 500 mg tablet 500 mg PO DAILY Qty: 30 RF: 2 furosemide 40 mg tablet 40 mg PO DAILY Qty: 90 RF: 0 Breo Ellipta 200-25 mcg/dose blister with device 1 ea inhalation DAILY Qty: 60 RF: 2 atorvastatin 80 mg tablet 80 mg PO BEDTIME RF: 0 carvedilol 12.5 mg tablet 12.5 mg PO BID RF: 0 verapamil 180 mg capsule,ext rel. pellets 24 hr 180 mg PO DAILY RF: 0 tamsulosin 0.4 mg capsule 0.4 mg PO DAILY RF: 0 losartan 100 mg tablet 100 mg PO DAILY RF: 0 Cerovite Senior Tablet 1 tab PO DAILY RF: 0 cyanocobalamin (vitamin B-12) 1,000 mcg capsule 1,000 mcg PO BEDTIME RF: 0 famotidine 20 mg tablet 20 mg PO DAILY RF: 0 Discontinued warfarin 2.5 mg Tablet 2.5 mg PO TUFR RF: 0 warfarin 5 mg Tablet 5 mg PO SUMOWETHSA RF: 0 No Action metronidazole [Flagyl] 500 mg tablet 500 mg PO TID 10 Days Qty: 30 RF: 0 levofloxacin 500 mg tablet 500 mg PO DAILY 10 Days Qty: 10 RF: 0 sennosides [Senokot] 8.6 mg tablet 8.6 mg PO DAILY Qty: 30 RF: 6 Xarelto 15 mg tablet 15 mg PO DAILY RF: 0 simethicone [Gas Relief (simethicone)] 125 mg capsule 125 mg PO TID-QID PRN (Reason: abdominal distention) Qty: 120 RF: 2 Discharge Orders: Discharge Order (Routine); Ordered 07/13/20 Ordered By: Elisa Bullock Diet: advance to usual diet Activity on Discharge: As tolerated Stand Alone Forms: Patient Portal Discharge page Other Ambulatory Orders: Prothrombin Time INR (Routine) Timeframe: 20200714 Facility: [facility] - Location: Laboratory Ordered By: Elisa Bullock Prothrombin Time INR (Routine) Timeframe: 20200715 Facility: [facility] - Location: Laboratory Ordered By: Elisa Bullock Care Plan Goals: Patient came to the hospital because of left sided numbness which is significantly improved spontaneously. Neurological workup including MRI -does not show any evidence of New stroke, question TIA. patient's INR is subtherapeutic, patient was advised to bridged with Lovenox and adjusted warfarin 5 mg for now. please stop Lovenox once the INR between 2 -3. will give weak and bridging with Lovenox: monitor INR closely daily, further management outpatient as per PCP. hypertension: Patient blood pressure is fluctuating, will continue his home hypertension regimen. Further management outpatient as per PCP. Above management discussed with the patient in detail length he understand and in agreement with the above plan. Health Concerns: As above. Plan of Treatment: As above. Assessment: As above. Discharge Date/Time: 07/13/20 17:00
--- NOTE | 2020-07-13 15:41 | W.MHC.F2F ---
Service Date Service Date: 07/13/20 Encounter Date of encounter: 07/13/20 Encounter: left lower ext numbnes , htn . Reasons for Services Homebound: Leaving the home is medically contraindicated at this time without the asist of a device and/or another person due th the listed conditions above and below. Certification: Based on the above findings, I certify that this patient is confined to the home and needs intermittent correction care, physical therapy and/or speech therapy, or continues to need occupational therapy. The patient is under my care, and I have initiated the establishment of the plan of care. The patient will be followed by a physician who will periodically review the plan of care.
[2020-07-13 16:00] VITALS: BP 132/63; PULSE 57; RESP 18; TEMP 36.8; O2SAT 99
--- NOTE | 2020-07-13 16:15 | MHC.CM.PN ---
IMM 07/13/20 Male DX Lside Numbness. He is discharged to home today. He will have [facility] nurse for INR and lovenox injection. Transportation has been booked, chair car. He will have an ambulance for transport as Chair van not available this time of day.
== END 2020-07-13 17:00 | disposition home health service (06) | DRG 93 ==
LOC: HO.ED 14:52 → HO.IMC 16:30
PROVIDERS: Admitting Provider Family Medicine; Emergency Provider Emergency Medicine; PCP Internal Medicine; Visit Provider Internal Medicine
DX: R20.0 Anesthesia of skin (principal); I48.0 Paroxysmal atrial fibrillation; K21.9 Gastro-esophageal reflux disease without esophagitis; D32.0 Benign neoplasm of cerebral meninges; N40.0 Benign prostatic hyperplasia without lower urinary tract symptoms; Z20.822 Contact with and (suspected) exposure to COVID-19; Z79.01 Long term (current) use of anticoagulants; Z79.51 Long term (current) use of inhaled steroids; Z79.899 Other long term (current) drug therapy
CPT/HCPCS: 36415; 70496; 70498; 70551; 70553; 80048; 80061; 84484; 85025; 85610; 87635; 93005; 94640; 97161; 97166; 99284; A9585; J1650; Q9967

== ENCOUNTER → 2020-07-30 13:00 | Outpatient (BNVA) | payer MEDICARE, SELFPAY | PROVIDERS: Visit Provider Nurse Practitioner Family | DX: K59.00 Constipation, unspecified (principal); R14.0 Abdominal distension (gaseous) | CPT/HCPCS: 99212 ==

== ENCOUNTER 2020-08-03 12:58 | Outpatient (REF) | payer MEDICARE, SELFPAY ==
--- NOTE | 2020-08-03 16:15 | MHC.AU.HFA ---
Hearing Instrument Fitting- Adult- Binaural Date of Visit: 08/03/20 Hearing Instruments Dispensed: Right Ear: Ornamental Rail Installer: Phonak Model: Audeo P70-R Serial Number: [id number] Repair Warranty: 10/12/2023 Loss and Damage Warranty: 10/12/2023 Battery Size: Rechargeable Color: 01 Balance Clerk: 1M Type of Dome: Small Power Type of Wax Guard: CeruShield Left Ear: Ornamental Rail Installer: Phonak Model: Audeo P70-R Serial Number: [id number] Repair Warranty: 10/12/2023 Loss and Damage Warranty: 10/12/2023 Battery Size: Rechargeable Color: 01 Balance Clerk: 1M Type of Dome: Small Power Type of Wax Guard: CeruShield Summary of Fitting: Patient arrived for hearing aid fitting. Feedback manager of internal was run. Verifit was performed and levels adjusted to better reach targets. Patient felt 100% was too loud- lowered to 90% target, with 2 additional steps down. Patient was pleased with the sound of the instruments. Hearing aid care and maintenance were discussed and practiced. Patient does not have a phone that is compatible with the hearing aids at this time. Discussed that if he upgrades his phone in the future, he is welcome to make an appointment for us to help him pair the phone to the hearing aids. Recommendations: Recommendations: A hearing instrument follow-up was scheduled. Diagnosis Code(s): Primary Diagnosis: H90.3 Bilateral Sensorineural Hearing Loss Signature: Provider: Tim Wade, [facility]
== END 2020-08-03 12:59 | disposition home or self-care (01) ==
LOC: HO.HAP 12:58
PROVIDERS: Visit Provider Internal Medicine Geriatric Medicine
DX: Z46.1 Encounter for fitting and adjustment of hearing aid (principal); H90.3 Sensorineural hearing loss, bilateral
CPT/HCPCS: V5011; V5020; V5160; V5261

== ENCOUNTER 2020-08-04 14:42 | Emergency (ER) | payer MEDICARE, SELFPAY ==
--- NOTE | ~2020-08-04 | CT_ITS ---
EXAMINATION: CT ABDOMEN AND PELVIS WITHOUT CONTRAST CLINICAL INFORMATION: Left flank pain. COMPARISON: CT abdomen 06/03/2020. TECHNIQUE: Multidetector volumetric imaging was performed from the superior aspect of the liver through the pubic symphysis. Sagittal and coronal reformatted images were obtained on the technologist's workstation. This CT examination was performed using dose optimization techniques as appropriate, variously including the following: *Automated exposure control *Adjustment of mA and/or kV according to patient size (this includes techniques or standardized protocols for targeted exams where dose is matched to indication/reason for exam; i.e. extremities or head) *Use of iterative reconstruction technique DLP: 816 mGy-cm FINDINGS: LUNG BASES: The lung bases are clear. There is minimal bilateral posterior pleural thickening. There is atelectasis or scarring in the right middle lobe heart size is normal. There are coronary artery calcifications present. LIVER, GALLBLADDER, AND BILIARY TREE: The liver is normal in size, shape, and attenuation. No focal hepatic lesion or biliary ductal dilatation is present. The gallbladder is unremarkable with no evidence of radiopaque gallstones, gallbladder wall thickening, or obvious pericholecystic inflammatory changes. PANCREAS: Unremarkable. SPLEEN: Unremarkable. ADRENAL GLANDS: Unremarkable. KIDNEYS AND URETERS: The kidneys are normal in size, shape, and attenuation. No hydronephrosis, hydroureter, or calculi seen. No perinephric stranding. BLADDER: Unremarkable. GASTROINTESTINAL TRACT: There is diffuse colonic diverticulosis with subtle fat stranding surrounding the redundant sigmoid colon, question early changes of diverticulitis. No bowel distention seen.. The small bowel loops are normal caliber. Appendix is normal caliber. ABDOMINAL WALL: Small umbilical hernia. LYMPH NODES: Normal. VASCULAR: There is atherosclerotic calcification of abdominal aorta without aneurysmal dilatation. PELVIC VISCERA: Unremarkable. OSSEOUS STRUCTURES: There are degenerative disc changes with vacuum disc phenomena L5-S1 disc level. No fracture or lytic process seen. There is a total right hip prosthesis. CT/CT abdomen pelvis wo con IMPRESSION: Diffuse colonic diverticulosis with minimal fat stranding in the redundant horizontal segment of sigmoid colon question early diverticulitis. No radiopaque urolith or hydroureteronephrosis.
[2020-08-04 14:56] VITALS: BP 160/62; BP 160/80; PULSE 70; PULSE 87; RESP 16; TEMP 36.8; O2SAT 96; BMI 34.7
--- NOTE | 2020-08-04 14:56 | ECG_ITS ---
Test Reason : CP Blood Pressure : / mmHG Vent. Rate : 065 BPM Atrial Rate : 065 BPM P-R Int : 266 ms QRS Dur : 130 ms QT Int : 464 ms P-R-T Axes : 024 -18 045 degrees QTc Int : 482 ms Sinus rhythm with 1st degree A-V block Right bundle branch block Possible Lateral infarct (cited on or before 05-APR-2020) Abnormal ECG When compared with ECG of 10-JUL-2020 10:37, No significant change was found Referred By: Darryl Donato Electronically Signed By:CAM MALDONADO
[2020-08-04 15:24] LABS: MANUAL DIFF FLAG NO
[2020-08-04 15:25] LABS: Basophils Percent Auto 0.5 % (0-2); Eosinophils Absolute Auto 0.2 X10*3/uL (0.0-0.4); Eosinophils Percent Auto 2.6 % (0-4); Hematocrit 33.3 % (42-52); Hemoglobin 10.5 g/dl (14.0-18.0); Imm Gran Abs Auto 0.01 X10*3/uL (0.00-0.03); Imm Gran Pct Auto 0.2 % (0.0-0.4); Lymphocytes Absolute Auto 1.3 X10*3/uL (1.2-4.9); Mean Corpuscular HGB Conc 31.5 g/dl (31.0-36.0); Mean Corpuscular Hemoglobin 26.6 pg (27.0-33.0); Mean Corpuscular Volume 84.3 fL (80-98); Mean Platelet Volume 10.1 fL (9.4-12.4); Monocytes Absolute Auto 0.5 X10*3/uL (0.1-1.2); Monocytes Percent Auto 8.4 % (2-11); Neutrophils Percent Auto 66.3 % (45-73); Platelet Count 173 X10*3/uL (160-400); Red Blood Count 3.95 X10*6/uL (4.60-5.80); White Blood Count 6.1 X10*3/uL (4.8-10.8)
[2020-08-04 15:27] LABS: Glucose Urine UA NEG (NEG); Leukocyte Esterase Urine NEG (NEG); Nitrite Urine NEG (NEG); Urine Blood NEG (NEG); Urine Ketones NEG (NEG); Urine Protein NEG (NEG-TRACE)
[2020-08-04 15:30] LABS: Appearance Urine CLEAR; Color Urine YELLOW
[2020-08-04 15:32] LABS: INTERNATIONAL NORM RATIO 1.3 (0.9-1.1)
[2020-08-04 15:34] LABS: Partial Thromboplastin Time 34.7 SEC (24.1-38.0)
[2020-08-04 15:59] LABS: Troponin-I High Sensitivity 13.3 ng/L (<3.5-35.0)
[2020-08-04 16:47] LABS: Alanine Aminotransferase 50 U/L (0-40); Albumin Level 3.6 g/dL (3.5-5.0); Alkaline Phosphatase 116 U/L (39-117); Anion Gap 12 (12-20); Aspartate Amino Transferase 129 U/L (5-37); Bilirubin Total 0.4 mg/dL (0.0-1.0); Blood Urea Nitrogen 16 mg/dL (9-16); Calcium 8.4 mg/dL (8.4-10.2); Carbon Dioxide 29 mmol/L (22-29); Chloride 108 mmol/L (96-108); Creatinine Clr Calc Pharmacy 54.3; Estimated Glomerular Filt Rate > 60; Glucose Random 92 mg/dL (60-115); Lipase 26 U/L (8-78); Potassium 3.8 mmol/L (3.3-5.1); Sodium 145 mmol/L (135-145); Total Protein 5.7 g/dL (6.5-8.0)
--- NOTE | 2020-08-04 17:44 | ED_ITS ---
HPI - Abdominal Pain General Chief Complaint: Chest Pain Stated Complaint: chest pain Time Seen by Provider: 08/04/20 14:53 Source: patient Mode of arrival: EMS Limitations: no limitations History of Present Illness HPI narrative: 84-year-old male who was brought to the emergency department for evaluation of abdominal pain. The patient states that at 2:00 p.m. he developed pain in his lower chest and lower abdomen. He describes the pain is a pressure- like pain which felt like gas. He states that the pain did not change with breathing or with movement. States the pain got worse to the point were was 10/10. He denied nausea or vomiting. States he did have some diarrhea. A denied urinary frequency urgency or dysuria. He states that the pain then radiated from his abdomen to his chest. Points to his left upper chest when asked to localize the chest pain. He states that this felt like a gas pain as well. States the pain in his abdomen chest was 8/10 at its worst. He denied fever, chills, shortness of breath, dyspnea on exertion, pain or swelling in his lower extremities. Related Data Home Medications Medication Instructions Recorded Confirmed atorvastatin 80 mg PO BEDTIME 06/03/20 07/30/20 carvedilol 12.5 mg PO BID 06/03/20 07/30/20 losartan 100 mg PO DAILY 06/03/20 07/30/20 tamsulosin 0.4 mg PO DAILY 06/03/20 07/30/20 verapamil 180 mg PO DAILY 06/03/20 07/30/20 famotidine 20 mg tablet 20 mg PO DAILY 06/15/20 07/30/20 Cerovite Senior 1 tab PO DAILY 07/10/20 07/30/20 cyanocobalamin (vitamin B-12) 1,000 mcg PO BEDTIME 07/10/20 07/30/20 rivaroxaban 15 mg tablet 15 mg PO DAILY 07/30/20 07/30/20 Previous Rx's Medication Instructions Recorded pantoprazole 40 mg tablet,delayed 40 mg PO DAILY #90 tab 06/05/20 release ascorbate calcium (vitamin C) 500 500 mg PO DAILY #30 tab 06/22/20 mg tablet ferrous sulfate 325 mg (65 mg 325 mg PO DAILY #30 tab 06/22/20 iron) tablet,delayed release furosemide 40 mg tablet 40 mg PO DAILY #90 tab 07/02/20 fluticasone furoate 200 1 ea INHALATION DAILY #60 ea 07/05/20 mcg-vilanterol 25 mcg/dose inhalation powder sennosides 8.6 mg tablet 8.6 mg PO DAILY #30 tab 07/30/20 simethicone 125 mg capsule 125 mg PO TID-QID PRN #120 cap 07/30/20 levofloxacin 500 mg PO DAILY 10 Days #10 tab 08/04/20 metronidazole [Flagyl] 500 mg PO TID 10 Days #30 tab 08/04/20 Allergies Allergy/AdvReac Type Severity Reaction Status Date / Time dabigatran etexilate Allergy Intermediate ITCHING Verified 07/30/20 13:18 [From PRADAXA] JORGE L Inhibitors Allergy Mild UNKNOWN, Verified 07/30/20 13:18 [Jorge L Inhibitors] FOUND IN MEDICAL RECORD 04/[address] GIPSON ezetimibe [From Zetia] Allergy Mild ANAPHYLAXIS Verified 07/30/20 13:18 apixaban [From ELIQUIS] Allergy Unknown UNKNOWN, Verified 07/30/20 13:18 rash rosuvastatin [Crestor] Allergy Unknown myalgia Verified 07/30/20 13:18 Review of Systems Review of Systems Yes all other systems are reviewed and are negative Reports Abnormal speech present Physical Exam Vital Signs: Vital Signs: Last Vital Signs Temp 98.3 F 08/04/20 14:56 Pulse 70 08/04/20 14:56 Resp 16 08/04/20 14:56 BP 160/62 H 08/04/20 14:56 Pulse Ox 96 08/04/20 14:56 Body Mass Index 34.7 Const: General: cooperative Nutritional Appearance: obese Orientation/consciousness: oriented to person and oriented to place Limitations: no limitations HENMT: Head: Yes normal to inspection, Yes normocephalic and Yes atraumatic Ears: external ears normal General nose exam: Normal external nose present Face and sinus: Yes normal facial exam Mouth: Normal oral and palatal mucosa present Throat: Yes posterior oropharynx normal Eyes: Periorbital: periorbital findings normal Eyelids: Yes eyelids normal Conjunctivae: conjunctivae normal Sclerae: sclerae normal Corneas: corneas normal Pupils: Equal, round and reactive pupils present Direct Ophthalmoscopy: normal light reflex Neck: Neck: Yes full ROM, Yes no lymphadenopathy, Yes no meningeal signs, Yes trachea midline and Yes supple Chest: Chest palpation & inspection: normal inspection of the chest and normal palpation of entire chest wall Resp: Effort & Inspection: normal respiratory effort and able to speak in complete sentences Auscultation: clear to auscultation bilaterally Cardio: Rate: regular rate Rhythm: regular rhythm Heart sounds: S1 normal heart sound present, S2 normal heart sound present and no murmurs GI: Inspection: Yes normal to inspection Palpation (GI): Soft to palpation, Tenderness to palpation present (GI) in the LLQ (Moderate) and in the LUQ (Moderate), no guarding, not rigid and No hepatosplenomegaly present : General: Yes no CVA tenderness Back/Spine/Pelvis: Back: no CVA tenderness Cervical Spine: normal cervical lordosis Thoracic/Lumbar Spine: thoracic and lumbar spine normal to inspection Skin: Lesions: no lesions Rashes: no rashes Wounds: no wounds Neuro: General: oriented to person, oriented to place and no meningeal signs Cranial nerves: Yes CN's II-XII intact bilaterally and Yes Equal, round and reactive pupils present Cognition (Neuro): normal cognition Speech: Abnormal speech present Motor exam (neuro): 5/5 motor strength present throughout Extrem: General: Yes normal to inspection and Yes full ROM Psych: Appearance: well kempt Mental Status: mental status grossly normal Speech and movement: Normal speech and movement present Affect: normal affect Attitude: cooperative Thought process: Normal thought process present Thought content: Normal thought content present Course Course Course Narrative: 84-year-old male who presents emergency department for evaluation of left-sided chest and abdominal pain. Vital signs revealed hypertension with a blood pressure 160/62 otherwise were normal. Physical examination did reveal left upper quadrant and left lower quadrant abdominal tenderness otherwise was unremarkable. I was concerned that the patient may have a kidney stone versus diverticulitis as the cause of his pain. Laboratory evaluation revealed anemia with an H&H of 10.5 and 33.3 this is chronic. WBC was normal. Coags revealed a slight elevation in INR 1.3. CT scan of the abdomen pelvis is concerning for possible sigmoid diverticulitis. I did discuss this with the patient. Patient was started on Levaquin 500 mg once a day for 10 days and metronidazole 500 mg 3 times a day for 10 days. He was given his 1st dose his medications here in the emergency department. He was discharged home with verbal and printed instructions advised to follow-up with his PCP and return if his symptoms get worse. MDM - Abdominal Pain Lab Data Result diagrams: 08/04/20 15:19 08/04/20 15:58 Labs: Lab Results 08/04/20 08/04/20 08/04/20 Range/Units 15:10 15:19 15:19 WBC 6.1 (4.8-10.8) X10*3/uL RBC 3.95 L (4.60-5.80) X10*6/uL Hgb 10.5 L (14.0-18.0) g/dl Hct 33.3 L (42-52) % MCV 84.3 (80-98) fL MCH 26.6 L (27.0-33.0) pg MCHC 31.5 (31.0-36.0) g/dl RDW 15.0 (11.0-16.0) % Plt Count 173 D (160-400) X10*3/uL MPV 10.1 (9.4-12.4) fL Immature Gran % (Auto) 0.2 (0.0-0.4) % Neut % (Auto) 66.3 (45-73) % Lymph % (Auto) 22.0 (20-40) % [place] % (Auto) 8.4 (2-11) % Eos % (Auto) 2.6 (0-4) % Baso % (Auto) 0.5 (0-2) % Lymph # (Auto) 1.3 (1.2-4.9) X10*3/uL [place] # (Auto) 0.5 (0.1-1.2) X10*3/uL Eos # (Auto) 0.2 (0.0-0.4) X10*3/uL Baso # (Auto) 0.0 (0.0-0.2) X10*3/uL Abs Immat Gran (auto) 0.01 (0.00-0.03) X10*3/uL Absolute Neuts (auto) 4.0 (2.0-8.3) X10*3/uL Absolute Nucleated RBC 0.000 (0.0-0.012) X10*3/uL Nucleated RBC % (auto) 0.0 (0.0-0.2) /100WBC PT 16.0 H (10.8-13.0) SEC INR 1.3 H (0.9-1.1) APTT 34.7 (24.1-38.0) SEC Sodium (135-145) mmol/L Potassium (3.3-5.1) mmol/L Chloride (96-108) mmol/L Carbon Dioxide (22-29) mmol/L Anion Gap (12-20) BUN (9-16) mg/dL Creatinine (0.5-1.4) mg/dL Estim Creat Clear Calc Estimated GFR Random Glucose (60-115) mg/dL Calcium (8.4-10.2) mg/dL Total Bilirubin (0.0-1.0) mg/dL AST (5-37) U/L ALT (0-40) U/L Alkaline Phosphatase (39-117) U/L Troponin I High Sens (<3.5-35.0) ng/L Total Protein (6.5-8.0) g/dL Albumin (3.5-5.0) g/dL Lipase (8-78) U/L Urine Color YELLOW Urine Appearance CLEAR Urine pH 6.0 (5.0-8.0) Ur Specific Maurice 1.010 (1.005-1.025) Urine Protein NEG (NEG-TRACE) MG/DL Urine Glucose (UA) NEG (NEG) MG/DL Urine Ketones NEG (NEG) MG/DL Urine Blood NEG (NEG) Urine Nitrite NEG (NEG) Ur Leukocyte Esterase NEG (NEG) 08/04/20 08/04/20 Range/Units 15:19 15:58 WBC (4.8-10.8) X10*3/uL RBC (4.60-5.80) X10*6/uL Hgb (14.0-18.0) g/dl Hct (42-52) % MCV (80-98) fL MCH (27.0-33.0) pg MCHC (31.0-36.0) g/dl RDW (11.0-16.0) % Plt Count (160-400) X10*3/uL MPV (9.4-12.4) fL Immature Gran % (Auto) (0.0-0.4) % Neut % (Auto) (45-73) % Lymph % (Auto) (20-40) % [place] % (Auto) (2-11) % Eos % (Auto) (0-4) % Baso % (Auto) (0-2) % Lymph # (Auto) (1.2-4.9) X10*3/uL [place] # (Auto) (0.1-1.2) X10*3/uL Eos # (Auto) (0.0-0.4) X10*3/uL Baso # (Auto) (0.0-0.2) X10*3/uL Abs Immat Gran (auto) (0.00-0.03) X10*3/uL Absolute Neuts (auto) (2.0-8.3) X10*3/uL Absolute Nucleated RBC (0.0-0.012) X10*3/uL Nucleated RBC % (auto) (0.0-0.2) /100WBC PT (10.8-13.0) SEC INR (0.9-1.1) APTT (24.1-38.0) SEC Sodium 145 (135-145) mmol/L Potassium 3.8 (3.3-5.1) mmol/L Chloride 108 (96-108) mmol/L Carbon Dioxide 29 (22-29) mmol/L Anion Gap 12 (12-20) BUN 16 (9-16) mg/dL Creatinine 0.98 (0.5-1.4) mg/dL Estim Creat Clear Calc 54.3 Estimated GFR > 60 Random Glucose 92 (60-115) mg/dL Calcium 8.4 (8.4-10.2) mg/dL Total Bilirubin 0.4 (0.0-1.0) mg/dL AST 129 H (5-37) U/L ALT 50 H (0-40) U/L Alkaline Phosphatase 116 D (39-117) U/L Troponin I High Sens 13.3 (<3.5-35.0) ng/L Total Protein 5.7 L (6.5-8.0) g/dL Albumin 3.6 (3.5-5.0) g/dL Lipase 26 (8-78) U/L Urine Color Urine Appearance Urine pH (5.0-8.0) Ur Specific Maurice (1.005-1.025) Urine Protein (NEG-TRACE) MG/DL Urine Glucose (UA) (NEG) MG/DL Urine Ketones (NEG) MG/DL Urine Blood (NEG) Urine Nitrite (NEG) Ur Leukocyte Esterase (NEG) Discharge Plan Discharge Clinical Impression: Diverticulitis Patient Disposition: Home, Self-Care Instructions: Diverticulitis (ED) Additional Instructions: Your CT scan is consistent with diverticulitis of the sigmoid colon. You received Levaquin 500 mg orally here in the emergency department Take Levaquin 500 mg pills, 1 pill daily days . Take your next dose tomorrow night at 6:00 p.m.. You received Flagyl (metronidazole) 500 mg orally here in the emergency department Take Flagyl (metronidazole) 500 mg, 1 pill 3 times a day for 10 days. Take your next dose tomorrow morning when you get the prescription filled. Take Tylenol (acetaminophen) 500 mg pills, 2 pills every 4 to 6 hours as needed for pain. Follow-up with your doctor in 2 days. Please return to the emergency department if your symptoms get worse or if you develop any symptoms that are concerning to you. Prescriptions: New metronidazole [Flagyl] 500 mg tablet 500 mg PO TID 10 Days Qty: 30 RF: 0 levofloxacin 500 mg tablet 500 mg PO DAILY 10 Days Qty: 10 RF: 0 No Action pantoprazole 40 mg tablet,delayed release (DR/EC) 40 mg PO DAILY Qty: 90 RF: 1 ferrous sulfate 325 mg (65 mg iron) tablet,delayed release (DR/EC) 325 mg PO DAILY Qty: 30 RF: 3 ascorbate calcium (vitamin C) 500 mg tablet 500 mg PO DAILY Qty: 30 RF: 2 furosemide 40 mg tablet 40 mg PO DAILY Qty: 90 RF: 0 Breo Ellipta 200-25 mcg/dose blister with device 1 ea inhalation DAILY Qty: 60 RF: 2 atorvastatin 80 mg tablet 80 mg PO BEDTIME RF: 0 carvedilol 12.5 mg tablet 12.5 mg PO BID RF: 0 verapamil 180 mg capsule,ext rel. pellets 24 hr 180 mg PO DAILY RF: 0 tamsulosin 0.4 mg capsule 0.4 mg PO DAILY RF: 0 losartan 100 mg tablet 100 mg PO DAILY RF: 0 Cerovite Senior Tablet 1 tab PO DAILY RF: 0 cyanocobalamin (vitamin B-12) 1,000 mcg capsule 1,000 mcg PO BEDTIME RF: 0 famotidine 20 mg tablet 20 mg PO DAILY RF: 0 sennosides [Senokot] 8.6 mg tablet 8.6 mg PO DAILY Qty: 30 RF: 6 Xarelto 15 mg tablet 15 mg PO DAILY RF: 0 simethicone [Gas Relief (simethicone)] 125 mg capsule 125 mg PO TID-QID PRN (Reason: abdominal distention) Qty: 120 RF: 2 PMFSH Past Medical History Medical History Acute respiratory failure with hypoxia Afib Anemia Anxiety and depression ARDS (adult respiratory distress syndrome) BPH (benign prostatic hyperplasia) Cholecystitis Chronic abdominal pain Constipation COPD (chronic obstructive pulmonary disease) COVID-19 virus infection Current use of anticoagulant therapy Diastolic CHF, acute on chronic Diverticulitis Frequency of micturition GERD (gastroesophageal reflux disease) Headache History of CVA (cerebrovascular accident) History of rib fracture Hypercholesterolemia Hypertension Hypogammaglobulinemia Obesity (BMI 30-39.9) Obstructive sleep apnea Paroxysmal atrial fibrillation Peripheral neuropathy Peripheral vascular disease Polyarthralgia Primary osteoarthritis of right knee Protrusion of lumbar intervertebral disc Tear of medial meniscus of knee Urinary incontinence Surgical History H/O colonoscopy History of left knee replacement History of tonsillectomy History of total right hip replacement History of transurethral resection of prostate Family History Family History Father No problems noted. Mother Hx of type 1 diabetes mellitus Social History Social History Household Members: Spouse Housing: House Do you presently have visiting nurse or other home services: No Alcohol intake: never Years Smoked: 30 yrs ago Second Hand Smoke Exposure: No Advance Directives: No Advance Directives Information Provided: No Advance Directives Date on File: 04/06/20 service: No Current occupational status: unemployed and retired Current occupation: Right Handed
[2020-08-04 17:53] VITALS: BP 160/67; PULSE 70; RESP 14; TEMP 36.7; O2SAT 99
[2020-08-04] MEDS: metroNIDAZOLE 500 MG TABLET PO (18:06)
[2020-08-04] MEDS: levoFLOXacin 500 MG TABLET PO (18:06)
== END 2020-08-04 18:31 | disposition home or self-care (01) ==
PROVIDERS: Emergency Provider Emergency Medicine Emergency Medical Services
DX: K57.32 Diverticulitis of large intestine without perforation or abscess without bleeding (principal); R07.9 Chest pain, unspecified; I10 Essential (primary) hypertension
CPT/HCPCS: 36415; 74176; 80053; 81003; 83690; 84484; 85025; 85610; 85730; 93005; 99284; 99285

== ENCOUNTER 2020-08-20 09:56 | Outpatient (REF) | payer MEDICARE, SELFPAY ==
[2020-08-20 10:52] LABS: MANUAL DIFF FLAG NO
[2020-08-20 11:10] LABS: Basophils Percent Auto 0.4 % (0-2); Eosinophils Absolute Auto 0.1 X10*3/uL (0.0-0.4); Eosinophils Percent Auto 2.1 % (0-4); Hemoglobin 10.3 g/dl (14.0-18.0); Imm Gran Abs Auto 0.01 X10*3/uL (0.00-0.03); Imm Gran Pct Auto 0.1 % (0.0-0.4); Lymphocytes Absolute Auto 1.3 X10*3/uL (1.2-4.9); Lymphocytes Percent Auto 18.8 % (20-40); Mean Corpuscular HGB Conc 31.2 g/dl (31.0-36.0); Mean Corpuscular Hemoglobin 26.5 pg (27.0-33.0); Mean Corpuscular Volume 84.8 fL (80-98); Mean Platelet Volume 9.9 fL (9.4-12.4); Monocytes Absolute Auto 0.5 X10*3/uL (0.1-1.2); Monocytes Percent Auto 7.9 % (2-11); Neutrophils Absolute Auto 4.8 X10*3/uL (2.0-8.3); Neutrophils Percent Auto 70.7 % (45-73); Platelet Count 301 X10*3/uL (160-400); Red Blood Count 3.89 X10*6/uL (4.60-5.80); Red Cell Distribution Width 16.9 % (11.0-16.0); White Blood Count 6.8 X10*3/uL (4.8-10.8)
[2020-08-20 11:11] LABS: Immature Retic Fraction 7.4 % (2.3-13.4); Retic HGB Equivalent 31.8 pg (30.0-35.0); Reticulocyte Percent 1.1 % (0.5-1.8); Reticulocytes Absolute 0.045 X10*6/uL (0.026-0.095)
[2020-08-20 11:16] LABS: B Type Natriuretic Peptide 250 pg/mL (<100)
[2020-08-20 11:17] LABS: Alanine Aminotransferase 24 U/L (0-40); Albumin Level 3.5 g/dL (3.5-5.0); Alkaline Phosphatase 65 U/L (39-117); Anion Gap 9 (12-20); Aspartate Amino Transferase 25 U/L (5-37); Bilirubin Total 0.5 mg/dL (0.0-1.0); Blood Urea Nitrogen 19 mg/dL (9-16); Calcium 8.7 mg/dL (8.4-10.2); Carbon Dioxide 27 mmol/L (22-29); Chloride 112 mmol/L (96-108); Estimated Glomerular Filt Rate > 60; Glucose Random 123 mg/dL (60-115); INTERNATIONAL NORM RATIO 1.7 (0.9-1.1); Iron 51 mcg/dL (45-160); Percent Iron Saturation 18 % (15-50); Potassium 3.6 mmol/L (3.3-5.1); Prothrombin Time 19.9 SEC (10.8-13.0); Sodium 144 mmol/L (135-145); Total Iron Binding Capacity 277 mcg/dL (228-428); Total Protein 5.6 g/dL (6.5-8.0); Unsaturated Iron Binding 226 ug/dL
[2020-08-20 11:31] LABS: Ferritin 30 ng/mL (20-250); Free T4 (Free Thyroxine) 1.18 ng/dL (0.71-1.85)
[2020-08-20 11:38] LABS: Thyroid Stimulating Hormone 1.44 uIU/mL (0.32-4.0)
[2020-08-20 12:05] LABS: Folate > 20.0 ng/mL (> or = 4.0); Vitamin B12 459 pg/mL (200-900)
== END 2020-08-20 09:57 | disposition home or self-care (01) ==
LOC: HO.LAB 09:56
PROVIDERS: Internal Medicine; Internal Medicine Medical Oncology; PCP Internal Medicine Geriatric Medicine; Visit Provider Registered Nurse
DX: D64.9 Anemia, unspecified (principal); E78.00 Pure hypercholesterolemia, unspecified; I50.33 Acute on chronic diastolic (congestive) heart failure; I48.0 Paroxysmal atrial fibrillation; Z51.81 Encounter for therapeutic drug level monitoring; Z79.01 Long term (current) use of anticoagulants
CPT/HCPCS: 36415; 80053; 80299; 82607; 82728; 82746; 83540; 83880; 84439; 84443; 85025; 85045; 85610

== ENCOUNTER 2020-08-21 08:55 | Outpatient (REF) | payer MEDICARE, SELFPAY ==
[2020-08-21 10:12] LABS: INTERNATIONAL NORM RATIO 1.8 (0.9-1.1); Prothrombin Time 21.2 SEC (10.8-13.0)
[2020-08-21 10:37] LABS: Cholesterol 146 mg/dL; HDL Cholesterol 42 mg/dL; LDL Cholesterol Calculated 81 mg/dl; Triglycerides 116 mg/dL
== END 2020-08-21 08:56 | disposition home or self-care (01) ==
LOC: HO.LAB 08:55
PROVIDERS: Absent Provider Internal Medicine; PCP Internal Medicine Geriatric Medicine; Visit Provider Internal Medicine
DX: E78.00 Pure hypercholesterolemia, unspecified (principal); I48.0 Paroxysmal atrial fibrillation
CPT/HCPCS: 36415; 80061; 85610

== ENCOUNTER 2020-08-22 10:38 | Outpatient (REF) | payer MEDICARE, SELFPAY | END 2020-08-22 10:39 | disposition home or self-care (01) | LOC: HO.HAP 10:38 | PROVIDERS: Visit Provider Internal Medicine Geriatric Medicine | DX: Z13.89 Encounter for screening for other disorder (principal) ==

== ENCOUNTER 2020-09-21 15:07 | Outpatient (REF) | payer MEDICARE, SELFPAY | END 2020-09-21 15:08 | disposition home or self-care (01) | LOC: HO.LAB 15:07 | PROVIDERS: PCP Registered Nurse; Visit Provider Registered Nurse | DX: Z79.01 Long term (current) use of anticoagulants (principal) | CPT/HCPCS: 36415; 80299 ==

== ENCOUNTER → 2020-09-25 13:05 | Outpatient (REF) | payer MEDICARE, SELFPAY ==
--- NOTE | 2020-09-25 13:10 | CA_ITS ---
Transthoracic Echocardiogram Patient (Last, First, Middle): Pal Da Silva, Gender: Male Date of : 1935 Age: 84 Procedure Date: 09/25/2020 Procedure Type: Transthoracic Echocardiogram Location: OP Height: 157.48 cm Weight: 88. kg BSA: 1.89 m2 Heart Rate: bpm BP: 151 / 73 mmHg Lift Electrician: YOLY Referring MD: Hai Edwards MD Symptoms: HTN Study Quality: Fair ECG Rhythm: Sinus Conclusions: - The left ventricular systolic function is hyperdynamic. The visually estimated ejection fraction is >70%. - There is mild calcification of the aortic valve. - No obvious valvular pathology seen on this study. Findings Left Ventricle Normal left ventricular cavity size. There is mildly increased left ventricular wall thickness. The left ventricular systolic function is hyperdynamic. The visually estimated ejection fraction is >70%. There is no evidence of regional wall motion abnormalities. There is no dynamic left ventricular outflow tract obstruction. E/E prime ratio is >15, consistent with elevated filling pressures. Evidence suggests grade I (mild) diastolic dysfunction. There is moderate septal and moderate basal asymmetric hypertrophy. Gradients-resting- [place] 1mmHg; mid ventricle 3mmHg; base 14mmHg; with valsalva apex 2mmHg; mid 9mmHg; base 20mmHg; LVOT 16mmHg. Right Ventricle Normal right ventricular cavity size and systolic function. Atria The left atrium is mildly dilated. The right atrium is normal in size. Aortic Valve There is a normal trileaflet aortic valve. There is mild calcification of the aortic valve. There is no aortic valve stenosis. There is trace (trivial) aortic valve regurgitation. Mitral Valve The mitral valve appears normal. There is trace mitral valve regurgitation. There is no mitral valve stenosis. Pulmonic Valve The pulmonic valve was not well visualized. Tricuspid Valve Normal tricuspid valve structure. There is trace tricuspid valve regurgitation. The pulmonary artery systolic pressure is normal. Great Vessels The aortic annulus, sinuses of valsalva, asc aorta, and aortic arch are normal in size. Venous The inferior vena cava is normal in size and collapses greater than 50% with inspiration. Pericardium/Pleural There is no evidence of pericardial effusion. Prior Study Comparison No significant change compared to prior study dated: 09/28/2019. Recommendations, Care & Conclusions No obvious valvular pathology seen on this study. Measurements 2D Linear Measurements IVSd: 1.47 0.6-0.9/0.6-1.0 cm LVIDd: 3.99 3.9-5.3/4.2-5.9 cm LVIDd Index: 2.11 2.4-3.2/2.2-3.1 cm/m2 LVIDs: 2.80 2.0-3.6 cm LVPWd: 1.19 0.7-1.1 cm Ao Root: 3.50 2.1-3.5 cm LA Diam: 4.50 2.7-3.8/3.0-4.0 cm LAIDs Index: 2.38 1.5-2.3 cm/m2 LV Mass: 239.78 67-162/88-224 g LV Mass Index: 126.87 43-95/49-115 g/m2 LVOT Diam: 2.20 3.0+(-)1.3 cm 2D Systolic Function EF 4C: 64.20 >55% EF 2C: 62.60 >55% EF BiP: 62.50 >55% Mitral Valve MV Pk E: 0.84 MV PK A: 1.04 MV Decel Time: 280.00 E/A: 0.80 E'Lateral: 5.11 E'Medial: 5.77 E/E' Med: 14.50 E/E' Lat: 16.40 PHT: 82.00 MVA PHT: 2.68 Decel Edgar: 3.00 Aortic Valve AoV Pk [place]: 1.77 AoV Mn [place]a: 1.25 AoV VTI: 0.41 AoV Pk Grad: 13.00 Aov Mn Grad: 7.00 SHYAM Cont.VTI: 3.74 LVOT LVOT Pk [place]: 1.69 LVOT Mn [place]: 1.15 LVOT VTI: 0.40 LVOT Pk Grad: 11.00 LVOT Mn Grad: 6.00 LVOT Diam: 2.20 LVOT Area: 3.80 Diastolic Function MV Pk E: 0.84 MV Pk A: 1.04 E/A: 0.80 E'Medial: 5.77 E/E' Med: 14.50 E' Laterial: 5.11 E/E' Lat: 16.40 Right Ventricle TAPSE (mm): 1.89 Tricuspid Valve TR Pk [place]a: 2.12 TR Pk Grad: 18.00 RA Press: 8.00 RVSP: 26.00 Great Vessels Aorta Ao Root-2D: 3.50 2.0-3.7 cm Ao Asc: 3.80 2.1-3.4 cm Ao Arch: 2.70 Updated in Other Vendor System with Status of Final Hai Edwards MD electronically signed on 09/25/2020 3:43:41 PM with status of Final
== END ==
LOC: HO.CARD 13:05
PROVIDERS: Visit Provider Internal Medicine
DX: I42.2 Other hypertrophic cardiomyopathy (principal); I11.9 Hypertensive heart disease without heart failure
CPT/HCPCS: 93306

== ENCOUNTER → 2020-10-01 12:57 | Outpatient (BNVA) | payer MEDICARE, SELFPAY | PROVIDERS: PCP Registered Nurse; Referring Provider Registered Nurse; Visit Provider Nurse Practitioner Family | DX: K59.01 Slow transit constipation (principal); R14.0 Abdominal distension (gaseous) | CPT/HCPCS: 99212 ==

== ENCOUNTER → 2020-10-04 11:00 | Outpatient (BNVA) | payer MEDICARE, SELFPAY | PROVIDERS: PCP Internal Medicine Geriatric Medicine; Visit Provider Internal Medicine | DX: I42.2 Other hypertrophic cardiomyopathy (principal); I48.0 Paroxysmal atrial fibrillation; I44.0 Atrioventricular block, first degree; G47.33 Obstructive sleep apnea (adult) (pediatric) | CPT/HCPCS: 99212 ==

== ENCOUNTER 2020-11-03 14:56 | Emergency (ER) | payer MEDICARE, SELFPAY ==
--- NOTE | ~2020-11-03 | CT_ITS ---
EXAMINATION: CT ABDOMEN AND PELVIS WITH CONTRAST CLINICAL INFORMATION: Left lower quadrant pain with history of diverticulitis COMPARISON: CT abdomen pelvis 08/04/2020 TECHNIQUE: Multidetector volumetric images were obtained from the superior aspect of the liver through the pubic symphysis following administration 85 mL of Omnipaque 350 intravenous contrast. Sagittal and coronal reformatted images were obtained on the technologist's workstation. Oral contrast: No This CT examination was performed using dose optimization techniques as appropriate, variously including the following: *Automated exposure control *Adjustment of mA and/or kV according to patient size (this includes techniques or standardized protocols for targeted exams where dose is matched to indication/reason for exam; i.e. extremities or head) *Use of iterative reconstruction technique DLP: 853 mGy-cm FINDINGS: LUNG BASES: Emphysematous changes are present at the lung bases with scarring. LIVER, GALLBLADDER, AND BILIARY TREE: The liver is normal in size, shape, and attenuation. No focal hepatic lesion or biliary ductal dilatation is present. The gallbladder is unremarkable with no evidence of radiopaque gallstones, gallbladder wall thickening, or obvious pericholecystic inflammatory changes. PANCREAS: Unremarkable. SPLEEN: Unremarkable. ADRENAL GLANDS: Unremarkable. KIDNEYS AND URETERS: The kidneys are normal in size, shape, and attenuation. A 1.5 cm simple cyst present in the right kidney with some smaller hypodensities on the left, also presumably cysts. No suspicious solid renal masses are seen. No hydronephrosis, hydroureter, or calculi seen. No perinephric stranding. BLADDER: Unremarkable. GASTROINTESTINAL TRACT: Again seen are diverticular changes present in the colon, predominantly in the sigmoid. The very proximal sigmoid, there is a new area of perisigmoid inflammation with thickening of the fascia consistent with early uncomplicated diverticulitis. No extraluminal air or fluid collections are seen the remainder of the colon is unremarkable. Small bowel appears unremarkable. The appendix is not seen. ABDOMINAL WALL: No significant hernia is appreciated. LYMPH NODES: No retroperitoneal lymphadenopathy. VASCULAR: Calcific atherosclerotic changes present in the aorta and iliofemoral vessels. No aneurysm. PELVIC VISCERA: Prostate and seminal vesicles appear normal. OSSEOUS STRUCTURES: Degenerative changes are present spine most marked in the lower thoracic spine as well as at L5-S1 where there is a grade 1 anterolisthesis and bilateral pars interarticularis defects. A right hip prosthesis is present. CT/CT abdomen pelvis w con IMPRESSION: 1. Acute uncomplicated diverticulitis involving the proximal sigmoid colon 2. Emphysematous changes at the lung bases, calcific atherosclerotic changes, renal cysts and degenerative changes in the spine.
[2020-11-03 15:12] VITALS: BP 156/67; PULSE 62; RESP 16; TEMP 37.4; O2SAT 97; BMI 35.6
--- NOTE | 2020-11-03 15:18 | ECG_ITS ---
Test Reason : ABD PAIN Blood Pressure : / mmHG Vent. Rate : 059 BPM Atrial Rate : 059 BPM P-R Int : 294 ms QRS Dur : 122 ms QT Int : 468 ms P-R-T Axes : 031 -18 069 degrees QTc Int : 463 ms Sinus bradycardia with 1st degree A-V block Right bundle branch block Possible Lateral infarct (cited on or before 05-APR-2020) Abnormal ECG When compared with ECG of 04-AUG-2020 14:56, No significant change was found Referred By: Bela Nickerson Electronically Signed By:MICHAEL CARABALLO
--- NOTE | 2020-11-03 15:20 | ED_ITS ---
HPI - Abdominal Pain General Chief Complaint: Abdominal Pain Stated Complaint: LOW LEFT ABD PAIN Time Seen by Provider: 11/03/20 15:02 Source: patient Mode of arrival: ambulatory Limitations: no limitations History of Present Illness HPI narrative: Patient comes to the emergency room complaining of left lower quadrant pain for 3 days. Patient states he has had diverticulitis in the past. Patient states that he was seen by Gastroenterology about a month ago, he was put on medications for constipation, states that since then he has been having normal bowel movements. Patient denies nausea or vomiting, no diarrhea, no constipation. Patient denies chest pain, no shortness of breath Related Data Home Medications Medication Instructions Recorded Confirmed atorvastatin 80 mg tablet 80 mg PO BEDTIME 06/03/20 10/04/20 carvedilol 12.5 mg tablet 12.5 mg PO BID 06/03/20 10/04/20 tamsulosin 0.4 mg capsule 0.4 mg PO DAILY 06/03/20 10/04/20 verapamil 180 mg 24 hr 180 mg PO DAILY 06/03/20 10/04/20 capsule,extended release biypxjfitklh-vxgldmto-zebxll 1 tab PO DAILY 07/10/20 10/04/20 tablet (Cerovite Senior) ciprofloxacin HCl 500 mg tablet 500 mg PO BID 10/01/20 10/04/20 Previous Rx's Medication Instructions Recorded pantoprazole 40 mg tablet,delayed 40 mg PO DAILY #90 tab 06/05/20 release fluticasone furoate 200 1 ea INHALATION DAILY #60 ea 07/05/20 mcg-vilanterol 25 mcg/dose inhalation powder (Breo Ellipta) sennosides 8.6 mg tablet (Senokot) 8.6 mg PO DAILY #30 tab 07/30/20 simethicone 125 mg capsule (Gas 125 mg PO TID-QID PRN #120 cap 07/30/20 Relief (simethicone)) levofloxacin 500 mg tablet 500 mg PO DAILY 10 Days #10 tab 08/04/20 ascorbate calcium (vitamin C) 500 500 mg PO DAILY 90 Days #90 tab 08/17/20 mg tablet cyanocobalamin (vitamin B-12) 1,000 mcg PO BEDTIME 90 Days #90 09/13/20 1,000 mcg capsule cap ferrous sulfate 325 mg (65 mg 325 mg PO DAILY 90 Days #90 tab 09/13/20 iron) tablet,delayed release furosemide 40 mg tablet 40 mg PO DAILY #90 tab 09/13/20 methylcellulose (laxative) 500 mg 500 mg PO DAILY #30 tab 10/01/20 tablet (Citrucel) plecanatide 3 mg tablet (Trulance) 3 mg PO DAILY #30 tab 10/05/20 rivaroxaban 15 mg tablet (Xarelto) 15 mg PO DAILY 90 Days #90 tab 10/08/20 losartan 100 mg tablet 100 mg PO DAILY #90 tab 10/11/20 Allergies Allergy/AdvReac Type Severity Reaction Status Date / Time dabigatran etexilate Allergy Intermediate ITCHING Verified 10/04/20 11:09 [From PRADAXA] JORGE L Inhibitors Allergy Mild UNKNOWN, Verified 10/04/20 11:09 [Jorge L Inhibitors] FOUND IN MEDICAL RECORD 04/[address] GIPSON ezetimibe [From Zetia] Allergy Mild ANAPHYLAXIS Verified 10/04/20 11:09 apixaban [From ELIQUIS] Allergy Unknown UNKNOWN, Verified 10/04/20 11:09 rash rosuvastatin [Crestor] Allergy Unknown myalgia Verified 10/04/20 11:09 Review of Systems Review of Systems Constitutional : No Weight loss, No Fever, No Chills, No Night Sweats, No Fatigue, No Malaise ENT/Mouth : No Hearing loss, No Ear Pain, No Nasal Congestion, No Sinus Pain, No Hoarseness, No sore throat, No Rhinorrhea, No Swallowing Difficulty Eyes: No Eye Pain, No Swelling, No Redness, No Foreign Body, No Discharge, No Vision Changes Cardiovascular : No Chest Pain, No SOB, No Dyspnea on Exertion, No Orthopnea, No Edema, No Palpitations Respiratory : No Cough, No Sputum, No Wheezing, No Smoke Exposure, No Dyspnea Gastrointestinal : No Nausea, No Vomiting, No Diarrhea, No Constipation, co mplaining of left lower quadrant pain, No Hematochezia, No Melena Genitourinary : no irregular bleeding, No Dysuria, No Urinary Frequency, No Hematuria, No Urinary Incontinence, No Urgency, No Flank Pain, No Urinary Flow Changes, No Hesitancy Musculoskeletal : No joint pain, No Myalgias, No Joint Swelling Skin : No Skin Lesions, No rash Neuro : No Weakness, No Numbness, No Paresthesias, No Loss of Consciousness, No Dizziness, No Headache Psych : No Anxiety/Panic, No Depression, No SI/HI/AH/VH, No Social Issues, Heme/Lymph: No Bruising, No Bleeding,No Lymphadenopathy Endocrine : No Polyuria, No Polydipsia, No Temperature Intolerance Physical Exam Vital Signs: Vital Signs: Last Vital Signs Temp 99.4 F 11/03/20 15:12 Pulse 62 11/03/20 15:12 Resp 16 11/03/20 15:12 BP 156/67 H 11/03/20 15:12 Pulse Ox 97 11/03/20 15:12 Body Mass Index 35.6 Const: Other: Appearance: Alert. Oriented X3. No acute distress. Eyes: Pupils equal, round and reactive to light. ENT: Pharynx normal. Neck: Normal inspection. Neck supple. No lymph nodes noted. No crepitus CVS: Normal heart rate and rhythm. Pulses normal. Normal S1 and S2 Respiratory: No respiratory distress. Breath sounds normal. No Wheezing. No rales Abdomen: Soft, not distended, no rigidity, mild guarding on deep palpation on the left lower quadrant, pain to palpation over the left lower quadrant Skin: Skin warm and dry. Normal skin color. Normal skin turgor. Extremities: No lower extremity edema. No Lacerations. No Rash Neuro: Oriented X 3. No motor deficit. No sensory deficit. Moving all extermit ies. No slurred speech. Course Course Course Narrative: CT scan pending, sign-out given to Dr. Douglass [facility] - Abdominal Pain Lab Data Result diagrams: 11/03/20 15:50 11/03/20 15:50 Labs: Lab Results 11/03/20 11/03/20 11/03/20 Range/Units 15:50 15:50 16:27 WBC 8.3 (4.8-10.8) X10*3/uL RBC 3.73 L (4.60-5.80) X10*6/uL Hgb 11.1 L (14.0-18.0) g/dl Hct 33.3 L (42-52) % MCV 89.3 (80-98) fL MCH 29.8 (27.0-33.0) pg MCHC 33.3 (31.0-36.0) g/dl RDW 14.3 (11.0-16.0) % Plt Count 161 D (160-400) X10*3/uL MPV 9.6 (9.4-12.4) fL Immature Gran % (Auto) 0.4 (0.0-0.4) % Neut % (Auto) 72.0 (45-73) % Lymph % (Auto) 16.9 L (20-40) % [place] % (Auto) 9.4 (2-11) % Eos % (Auto) 1.1 (0-4) % Baso % (Auto) 0.2 (0-2) % Lymph # (Auto) 1.4 (1.2-4.9) X10*3/uL [place] # (Auto) 0.8 (0.1-1.2) X10*3/uL Eos # (Auto) 0.1 (0.0-0.4) X10*3/uL Baso # (Auto) 0.0 (0.0-0.2) X10*3/uL Abs Immat Gran (auto) 0.03 (0.00-0.03) X10*3/uL Absolute Neuts (auto) 6.0 (2.0-8.3) X10*3/uL Absolute Nucleated RBC 0.000 (0.0-0.012) X10*3/uL Nucleated RBC % (auto) 0.0 (0.0-0.2) /100WBC Sodium 143 (135-145) mmol/L Potassium 3.9 (3.3-5.1) mmol/L Chloride 110 H (96-108) mmol/L Carbon Dioxide 27 (22-29) mmol/L Anion Gap 10 L (12-20) BUN 17 H (9-16) mg/dL Creatinine 0.95 (0.5-1.4) mg/dL Estim Creat Clear Calc 56.7 Estimated GFR > 60 Random Glucose 100 (60-115) mg/dL Calcium 8.8 (8.4-10.2) mg/dL Total Bilirubin 0.3 (0.0-1.0) mg/dL Direct Bilirubin 0.2 (0.0-0.5) mg/dL AST 21 (5-37) U/L ALT 22 (0-40) U/L Alkaline Phosphatase 55 (39-117) U/L Total Protein 5.6 L (6.5-8.0) g/dL Albumin 3.7 (3.5-5.0) g/dL Urine Color YELLOW Urine Appearance CLEAR Urine pH 7.0 (5.0-8.0) Ur Specific [place] 1.010 (1.005-1.025) Urine Protein NEG (NEG-TRACE) MG/DL Urine Glucose (UA) NEG (NEG) MG/DL Urine Ketones NEG (NEG) MG/DL Urine Blood NEG (NEG) Urine Nitrite NEG (NEG) Ur Leukocyte Esterase NEG (NEG) Discharge Plan Discharge Clinical Impression: Abdominal pain Prescriptions: No Action pantoprazole 40 mg tablet,delayed release (DR/EC) 40 mg PO DAILY Qty: 90 RF: 1 Breo Ellipta 200-25 mcg/dose blister with device 1 ea inhalation DAILY Qty: 60 RF: 2 ascorbate calcium (vitamin C) 500 mg tablet 500 mg PO DAILY 90 Days Qty: 90 RF: 3 ferrous sulfate 325 mg (65 mg iron) tablet,delayed release (DR/EC) 325 mg PO DAILY 90 Days Qty: 90 RF: 3 furosemide 40 mg tablet 40 mg PO DAILY Qty: 90 RF: 1 cyanocobalamin (vitamin B-12) 1,000 mcg capsule 1,000 mcg PO BEDTIME 90 Days Qty: 90 RF: 3 Xarelto 15 mg tablet 15 mg PO DAILY 90 Days Qty: 90 RF: 3 losartan 100 mg tablet 100 mg PO DAILY Qty: 90 RF: 2 atorvastatin 80 mg tablet 80 mg PO BEDTIME RF: 0 carvedilol 12.5 mg tablet 12.5 mg PO BID RF: 0 verapamil 180 mg capsule,ext rel. pellets 24 hr 180 mg PO DAILY RF: 0 tamsulosin 0.4 mg capsule 0.4 mg PO DAILY RF: 0 Cerovite Senior Tablet 1 tab PO DAILY RF: 0 levofloxacin 500 mg tablet 500 mg PO DAILY 10 Days Qty: 10 RF: 0 sennosides [Senokot] 8.6 mg tablet 8.6 mg PO DAILY Qty: 30 RF: 6 simethicone [Gas Relief (simethicone)] 125 mg capsule 125 mg PO TID-QID PRN (Reason: abdominal distention) Qty: 120 RF: 2 ciprofloxacin HCl 500 mg tablet 500 mg PO BID RF: 0 Citrucel 500 mg tablet 500 mg PO DAILY Qty: 30 RF: 2 Trulance 3 mg tablet 3 mg PO DAILY Qty: 30 RF: 3 PMFSH Past Medical History Medical History Acute respiratory failure with hypoxia Afib Anemia Anxiety and depression ARDS (adult respiratory distress syndrome) BPH (benign prostatic hyperplasia) Cholecystitis Chronic abdominal pain Constipation COPD (chronic obstructive pulmonary disease) COVID-19 virus infection Current use of anticoagulant therapy Diastolic CHF, acute on chronic Diverticulitis Frequency of micturition GERD (gastroesophageal reflux disease) Headache History of CVA (cerebrovascular accident) History of rib fracture Hypercholesterolemia Hypertension Hypertrophic cardiomyopathy Hypogammaglobulinemia Obesity (BMI 30-39.9) Obstructive sleep apnea Paroxysmal atrial fibrillation Peripheral neuropathy Peripheral vascular disease Polyarthralgia Primary osteoarthritis of right knee Protrusion of lumbar intervertebral disc Tear of medial meniscus of knee Urinary incontinence Surgical History H/O colonoscopy History of left knee replacement History of tonsillectomy History of total right hip replacement History of transurethral resection of prostate Family History Family History Father No problems noted. Mother Hx of type 1 diabetes mellitus Social History Social History Household Members: Spouse Housing: House Do you presently have visiting nurse or other home services: No Alcohol intake: never Years Smoked: 30 yrs ago Second Hand Smoke Exposure: No Advance Directives: Yes Advance Directives on File: Yes Advance Directives Date on File: 04/06/20 service: No Current occupational status: unemployed and retired Current occupation: Right Handed
[2020-11-03 15:58] LABS: MANUAL DIFF FLAG NO
[2020-11-03 15:59] LABS: Basophils Percent Auto 0.2 % (0-2); Eosinophils Absolute Auto 0.1 X10*3/uL (0.0-0.4); Eosinophils Percent Auto 1.1 % (0-4); Hematocrit 33.3 % (42-52); Hemoglobin 11.1 g/dl (14.0-18.0); Imm Gran Abs Auto 0.03 X10*3/uL (0.00-0.03); Imm Gran Pct Auto 0.4 % (0.0-0.4); Lymphocytes Absolute Auto 1.4 X10*3/uL (1.2-4.9); Lymphocytes Percent Auto 16.9 % (20-40); Mean Corpuscular HGB Conc 33.3 g/dl (31.0-36.0); Mean Corpuscular Hemoglobin 29.8 pg (27.0-33.0); Mean Corpuscular Volume 89.3 fL (80-98); Mean Platelet Volume 9.6 fL (9.4-12.4); Monocytes Absolute Auto 0.8 X10*3/uL (0.1-1.2); Monocytes Percent Auto 9.4 % (2-11); Platelet Count 161 X10*3/uL (160-400); Red Blood Count 3.73 X10*6/uL (4.60-5.80); Red Cell Distribution Width 14.3 % (11.0-16.0); White Blood Count 8.3 X10*3/uL (4.8-10.8)
[2020-11-03 16:21] LABS: Alanine Aminotransferase 22 U/L (0-40); Albumin Level 3.7 g/dL (3.5-5.0); Alkaline Phosphatase 55 U/L (39-117); Anion Gap 10 (12-20); Aspartate Amino Transferase 21 U/L (5-37); Bilirubin Direct 0.2 mg/dL (0.0-0.5); Bilirubin Total 0.3 mg/dL (0.0-1.0); Blood Urea Nitrogen 17 mg/dL (9-16); Calcium 8.8 mg/dL (8.4-10.2); Carbon Dioxide 27 mmol/L (22-29); Chloride 110 mmol/L (96-108); Creatinine Clr Calc Pharmacy 56.7; Estimated Glomerular Filt Rate > 60; Glucose Random 100 mg/dL (60-115); Potassium 3.9 mmol/L (3.3-5.1); Sodium 143 mmol/L (135-145); Total Protein 5.6 g/dL (6.5-8.0)
[2020-11-03 16:34] LABS: Appearance Urine CLEAR; Color Urine YELLOW; Glucose Urine UA NEG (NEG); Leukocyte Esterase Urine NEG (NEG); Nitrite Urine NEG (NEG); Urine Blood NEG (NEG); Urine Ketones NEG (NEG); Urine Protein NEG (NEG-TRACE)
--- NOTE | 2020-11-03 17:16 | PC.NURSE ---
IV ATTEMPT UNSUCCESSFUL.
[2020-11-03 17:46] VITALS: RESP 16
[2020-11-03] MEDS: Morphine Sulfate 2 MG/ML CARTRIDGE IVPUSH (17:46)
[2020-11-03 17:47] VITALS: BP 139/73; PULSE 64; RESP 16; O2SAT 97
[2020-11-03] MEDS: iohexoL 350 MG/ML 100 ML INFUS..BTL IV (18:33)
[2020-11-03] MEDS: Acetaminophen 325 MG TABLET 975 MG PO (19:09)
[2020-11-03 19:40] VITALS: BP 192/72; PULSE 65; RESP 18; TEMP 37.2; O2SAT 97
[2020-11-03] MEDS: metroNIDAZOLE 500 MG TABLET PO (19:56)
[2020-11-03] MEDS: levoFLOXacin 500 MG TABLET PO (19:56)
== END 2020-11-03 20:37 | disposition home or self-care (01) ==
PROVIDERS: Emergency Medicine; Emergency Provider Emergency Medicine Emergency Medical Services
DX: K57.32 Diverticulitis of large intestine without perforation or abscess without bleeding (principal); R10.30 Lower abdominal pain, unspecified; I48.0 Paroxysmal atrial fibrillation; I10 Essential (primary) hypertension; E78.5 Hyperlipidemia, unspecified; Z86.73 Personal history of transient ischemic attack (TIA), and cerebral infarction without residual deficits; Z79.01 Long term (current) use of anticoagulants; Z79.02 Long term (current) use of antithrombotics/antiplatelets; Z79.899 Other long term (current) drug therapy
CPT/HCPCS: 36415; 74177; 80048; 80076; 81003; 85025; 93005; 96374; 99284; J2270; Q9967

== ENCOUNTER 2020-12-02 09:37 | Emergency (ER) | payer MEDICARE, SELFPAY ==
[2020-12-02 10:30] VITALS: BP 126/84; PULSE 84; RESP 16; TEMP 36.2; O2SAT 98; BMI 35.4
[2020-12-02 12:33] LABS: Appearance Urine CLEAR; Color Urine YELLOW; Glucose Urine UA NEG (NEG); Leukocyte Esterase Urine NEG (NEG); Nitrite Urine NEG (NEG); PH 6.5 (5.0-8.0); Specific Gravity - Urine 1.015 (1.005-1.025); Urine Blood NEG (NEG); Urine Ketones NEG (NEG); Urine Protein NEG (NEG-TRACE)
--- NOTE | 2020-12-02 13:38 | ED.ABDPAIN ---
HPI - Abdominal Pain General Chief Complaint: Abdominal Pain Stated Complaint: abd pain Time Seen by Provider: 12/02/20 13:14 Source: patient Mode of arrival: ambulatory Limitations: no limitations History of Present Illness HPI narrative: 85-year-old male who presents emergency department for evaluation left lower quadrant abdominal pain. Patient states the pain started yesterday. He describes the pain as an intermittent, dull ache which is moderate in intensity. The pain is exacerbated by movement and by eating food. He also states the pain is worse when he moves his bowels. states he has had a decreased appetite but has been able to eat and drink. He denied fever, chills, nausea, vomiting. He states that he has had normal bowel movements. The patient has had multiple similar episodes of this type of pain in the past. He states that is caused by diverticulitis. In reviewing the ED record he was seen on 08/04/2020 and 11/03/2020 for diverticulitis of the left colon. The on the 11/03/2020 visit he was started on Levaquin 500 mg once a day for 10 days and Flagyl 500 mg 3 times a day for 10 days, he states that he completed this regimen. He denied fever, chills, chest pain, shortness of breath, dark tarry stools or bloody stools, frequency, urgency or dysuria. Related Data Home Medications Medication Instructions Recorded Confirmed atorvastatin 80 mg tablet 80 mg PO BEDTIME 06/03/20 10/04/20 carvedilol 12.5 mg tablet 12.5 mg PO BID 06/03/20 10/04/20 tamsulosin 0.4 mg capsule 0.4 mg PO DAILY 06/03/20 10/04/20 verapamil 180 mg 24 hr 180 mg PO DAILY 06/03/20 10/04/20 capsule,extended release [id number]-[id number]-qtptow 1 tab PO DAILY 07/10/20 10/04/20 tablet (Cerovite Senior) ciprofloxacin HCl 500 mg tablet 500 mg PO BID 10/01/20 10/04/20 Previous Rx's Medication Instructions Recorded fluticasone furoate 200 1 ea INHALATION DAILY #60 ea 07/05/20 mcg-vilanterol 25 mcg/dose inhalation powder (Breo Ellipta) sennosides 8.6 mg tablet (Senokot) 8.6 mg PO DAILY #30 tab 07/30/20 simethicone 125 mg capsule (Gas 125 mg PO TID-QID PRN #120 cap 07/30/20 Relief (simethicone)) levofloxacin 500 mg tablet 500 mg PO DAILY 10 Days #10 tab 08/04/20 ascorbate calcium (vitamin C) 500 500 mg PO DAILY 90 Days #90 tab 08/17/20 mg tablet cyanocobalamin (vitamin B-12) 1,000 mcg PO BEDTIME 90 Days #90 09/13/20 1,000 mcg capsule cap ferrous sulfate 325 mg (65 mg 325 mg PO DAILY 90 Days #90 tab 09/13/20 iron) tablet,delayed release furosemide 40 mg tablet 40 mg PO DAILY #90 tab 09/13/20 methylcellulose (laxative) 500 mg 500 mg PO DAILY #30 tab 10/01/20 tablet (Citrucel) plecanatide 3 mg tablet (Trulance) 3 mg PO DAILY #30 tab 10/05/20 rivaroxaban 15 mg tablet (Xarelto) 15 mg PO DAILY 90 Days #90 tab 10/08/20 losartan 100 mg tablet 100 mg PO DAILY #90 tab 10/11/20 levofloxacin 500 mg tablet 500 mg PO DAILY 10 Days #10 tab 11/03/20 metronidazole 500 mg tablet 500 mg PO BID 10 Days #20 tab 11/03/20 (Flagyl) pantoprazole 40 mg tablet,delayed 40 mg PO DAILY #90 tab 11/09/20 release levofloxacin 500 mg tablet 500 mg PO DAILY 10 Days #10 tab 12/02/20 metronidazole 500 mg tablet 500 mg PO TID 10 Days #30 tab 12/02/20 Allergies Allergy/AdvReac Type Severity Reaction Status Date / Time dabigatran etexilate Allergy Intermediate ITCHING Verified 10/04/20 11:09 [From PRADAXA] JORGE L Inhibitors Allergy Mild UNKNOWN, Verified 10/04/20 11:09 [Jorge L Inhibitors] FOUND IN MEDICAL RECORD 04/[address] GIPSON ezetimibe [From Zetia] Allergy Mild ANAPHYLAXIS Verified 10/04/20 11:09 apixaban [From ELIQUIS] Allergy Unknown UNKNOWN, Verified 10/04/20 11:09 rash rosuvastatin [Crestor] Allergy Unknown myalgia Verified 10/04/20 11:09 Review of Systems Review of Systems Yes all other systems are reviewed and are negative Physical Exam Vital Signs: Vital Signs: Last Vital Signs Temp 97.2 F 12/02/20 10:30 Pulse 84 12/02/20 10:30 Resp 16 12/02/20 10:30 BP 126/84 12/02/20 10:30 Pulse Ox 98 12/02/20 10:30 Body Mass Index 35.4 Const: General: cooperative and no acute distress Orientation/consciousness: oriented to person and oriented to place Limitations: no limitations HENMT: Head: Yes normal to inspection, Yes normocephalic and Yes atraumatic Ears: external ears normal General nose exam: Normal external nose present Face and sinus: Yes normal facial exam Mouth: Normal oral and palatal mucosa present Throat: Yes posterior oropharynx normal Eyes: General: appearance normal, both eyes and all related structures Pupils: Equal, round and reactive pupils present Neck: Neck: Yes normal visual inspection, Yes no lymphadenopathy, Yes trachea midline and Yes supple Chest: Chest palpation & inspection: normal inspection of the chest and normal palpation of entire chest wall Resp: Effort & Inspection: normal respiratory effort and able to speak in complete sentences Auscultation: clear to auscultation bilaterally Cardio: Rate: regular rate Rhythm: regular rhythm Heart sounds: S1 normal heart sound present, S2 normal heart sound present and no murmurs GI: Inspection: Yes normal to inspection Palpation (GI): Soft to palpation, Tenderness to palpation present (GI) in the LUQ (Moderate) and no guarding Auscultation: normal bowel sounds : General: Yes no CVA tenderness Back/Spine/Pelvis: Back: no CVA tenderness Skin: General skin exam: no rashes or lesions noted Neuro: General: oriented to person and oriented to place Cranial nerves: Yes CN's II-XII intact bilaterally and Yes Equal, round and reactive pupils present Cognition (Neuro): normal cognition Motor exam (neuro): 5/5 motor strength present throughout Extrem: General: Yes normal to inspection Psych: Appearance: grossly normal Speech and movement: Normal speech and movement present Affect: normal affect Attitude: cooperative Thought process: Normal thought process present Thought content: Normal thought content present Course Course Course Narrative: 85-year-old male with a history of recurrent diverticulitis of the left colon who presents emergency department for evaluation of left lower quadrant pain since yesterday. The pain has been intermittent and he states that the pain right now is mild in intensity but the pain has been moderate in intensity previously. He denied fever, chills, nausea, vomiting. He has been able to eat food and drink liquids done in difficulty. Patient's vital signs were normal. The patient does have left lower quadrant tenderness. Given the fact that he has had recurrent diverticulitis, I believe that his symptoms at this time are consistent with acute diverticulitis. I did discuss empiric treatment and the patient agreed. The patient was started on Levaquin 500 mg once a day for 10 days, he was given his 1st dose here in the emergency department. He was also started on Flagyl 500 mg 3 times a day for 10 days, he is given his 1st dose in the emergency department. He was advised to take Tylenol for his pain. Was discharged home with printed and verbal instructions advised return if his symptoms get worse. MDM - Abdominal Pain Lab Data Labs: Lab Results 12/02/20 Range/Units 12:24 Urine Color YELLOW Urine Appearance CLEAR Urine pH 6.5 (5.0-8.0) Ur Specific [place] 1.015 (1.005-1.025) Urine Protein NEG (NEG-TRACE) MG/DL Urine Glucose (UA) NEG (NEG) MG/DL Urine Ketones NEG (NEG) MG/DL Urine Blood NEG (NEG) Urine Nitrite NEG (NEG) Ur Leukocyte Esterase NEG (NEG) Discharge Plan Discharge Clinical Impression: Acute diverticulitis Patient Disposition: Home, Self-Care Instructions: Diverticulitis (ED), High Fiber Diet (ED) Additional Instructions: Your examination is consistent with acute diverticulitis (inflammation/infection of your colon). Take Levaquin 500 mg pills, 1 pill once a day for 10 days. You received her 1st dose here in the emergency department take your next dose tomorrow morning. Take Flagyl (metronidazole) 500 mg pills, 1 pill every 6 hours while you are awake (3 times a day) for 10 days. You received your 1st dose here in the emergency department. Take your next dose in 6 hours. Take Tylenol (acetaminophen) 500 mg pills, 2 pills every 4 to 6 hour as needed for pain. After you complete your antibiotic treatment, stay on a high-fiber diet. It is believed that high-fiber diet and frequent bowel movement will help prevent recurrence of diverticulitis. After you complete your antibiotics, you should take Metamucil 1 tsp in 8 oz of water twice a day to increase the fiber in your diet and help with bowel movements. Follow-up with your doctor in 2 days. Please return to the emergency department if your symptoms get worse or if you develop any symptoms that are concerning to you. Prescriptions: New levofloxacin 500 mg tablet 500 mg PO DAILY 10 Days Qty: 10 RF: 0 metronidazole 500 mg tablet 500 mg PO TID 10 Days Qty: 30 RF: 0 No Action Breo Ellipta 200-25 mcg/dose blister with device 1 ea inhalation DAILY Qty: 60 RF: 2 ascorbate calcium (vitamin C) 500 mg tablet 500 mg PO DAILY 90 Days Qty: 90 RF: 3 ferrous sulfate 325 mg (65 mg iron) tablet,delayed release (DR/EC) 325 mg PO DAILY 90 Days Qty: 90 RF: 3 furosemide 40 mg tablet 40 mg PO DAILY Qty: 90 RF: 1 cyanocobalamin (vitamin B-12) 1,000 mcg capsule 1,000 mcg PO BEDTIME 90 Days Qty: 90 RF: 3 Xarelto 15 mg tablet 15 mg PO DAILY 90 Days Qty: 90 RF: 3 losartan 100 mg tablet 100 mg PO DAILY Qty: 90 RF: 2 pantoprazole 40 mg tablet,delayed release (DR/EC) 40 mg PO DAILY Qty: 90 RF: 3 atorvastatin 80 mg tablet 80 mg PO BEDTIME RF: 0 carvedilol 12.5 mg tablet 12.5 mg PO BID RF: 0 verapamil 180 mg capsule,ext rel. pellets 24 hr 180 mg PO DAILY RF: 0 tamsulosin 0.4 mg capsule 0.4 mg PO DAILY RF: 0 Cerovite Senior Tablet 1 tab PO DAILY RF: 0 levofloxacin 500 mg tablet 500 mg PO DAILY 10 Days Qty: 10 RF: 0 levofloxacin 500 mg tablet 500 mg PO DAILY 10 Days Qty: 10 RF: 0 metronidazole [Flagyl] 500 mg tablet 500 mg PO BID 10 Days Qty: 20 RF: 0 sennosides [Senokot] 8.6 mg tablet 8.6 mg PO DAILY Qty: 30 RF: 6 simethicone [Gas Relief (simethicone)] 125 mg capsule 125 mg PO TID-QID PRN (Reason: abdominal distention) Qty: 120 RF: 2 ciprofloxacin HCl 500 mg tablet 500 mg PO BID RF: 0 Citrucel 500 mg tablet 500 mg PO DAILY Qty: 30 RF: 2 Trulance 3 mg tablet 3 mg PO DAILY Qty: 30 RF: 3 PMFSH Past Medical History [facility] Narrative: Social history: He denies tobacco use. He denies alcohol use. He denies drug use. Medical History Acute respiratory failure with hypoxia Afib Anemia Anxiety and depression ARDS (adult respiratory distress syndrome) BPH (benign prostatic hyperplasia) Cholecystitis Chronic abdominal pain Constipation COPD (chronic obstructive pulmonary disease) COVID-19 virus infection Current use of anticoagulant therapy Diastolic CHF, acute on chronic Diverticulitis Frequency of micturition GERD (gastroesophageal reflux disease) Headache History of CVA (cerebrovascular accident) History of rib fracture Hypercholesterolemia Hypertension Hypertrophic cardiomyopathy Hypogammaglobulinemia Obesity (BMI 30-39.9) Obstructive sleep apnea Paroxysmal atrial fibrillation Peripheral neuropathy Peripheral vascular disease Polyarthralgia Primary osteoarthritis of right knee Protrusion of lumbar intervertebral disc Tear of medial meniscus of knee Urinary incontinence Surgical History H/O colonoscopy History of left knee replacement History of tonsillectomy History of total right hip replacement History of transurethral resection of prostate Family History Family History Father No problems noted. Mother Hx of type 1 diabetes mellitus Social History Social History Household Members: Spouse Housing: House Do you presently have visiting nurse or other home services: No Alcohol intake: never Years Smoked: 30 yrs ago Second Hand Smoke Exposure: No Advance Directives: Yes Advance Directives on File: Yes Advance Directives Date on File: 04/06/20 service: No Current occupational status: unemployed and retired Current occupation: Right Handed
[2020-12-02] MEDS: metroNIDAZOLE 500 MG TABLET PO (14:29)
[2020-12-02] MEDS: levoFLOXacin 500 MG TABLET PO (14:29)
== END 2020-12-02 14:30 | disposition home or self-care (01) ==
PROVIDERS: Emergency Provider Emergency Medicine Emergency Medical Services; PCP Internal Medicine Geriatric Medicine
DX: K57.92 Diverticulitis of intestine, part unspecified, without perforation or abscess without bleeding (principal); I10 Essential (primary) hypertension; J44.9 Chronic obstructive pulmonary disease, unspecified; I48.0 Paroxysmal atrial fibrillation; Z86.73 Personal history of transient ischemic attack (TIA), and cerebral infarction without residual deficits; Z79.01 Long term (current) use of anticoagulants
CPT/HCPCS: 81003; 99283

== ENCOUNTER → 2020-12-04 13:00 | Outpatient (BNVA) | payer MEDICARE, SELFPAY | PROVIDERS: PCP Internal Medicine Geriatric Medicine; Visit Provider Nurse Practitioner Family | DX: K21.9 Gastro-esophageal reflux disease without esophagitis (principal); K57.92 Diverticulitis of intestine, part unspecified, without perforation or abscess without bleeding; K58.1 Irritable bowel syndrome with constipation | CPT/HCPCS: 99212 ==

== ENCOUNTER 2020-12-08 03:01 | Emergency (ER) | payer MEDICARE, SELFPAY ==
--- NOTE | ~2020-12-08 | CT_ITS ---
EXAMINATION: CT HEAD WITHOUT CONTRAST CLINICAL INFORMATION: Dizziness COMPARISON: MRI brain dated 07/11/2020 TECHNIQUE: Contiguous axial imaging was performed from the skull base to vertex without intravenous administration of contrast. This CT examination was performed using dose optimization techniques as appropriate, variously including the following: *Automated exposure control *Adjustment of mA and/or kV according to patient size (this includes techniques or standardized protocols for targeted exams where dose is matched to indication/reason for exam; i.e. extremities or head) *Use of iterative reconstruction technique DLP: 731 mGy-cm FINDINGS: There is no evidence of acute intracranial hemorrhage or territorial infarction. No abnormal mass effect or midline shift is seen. Nunez to white matter differentiation is well preserved. No extra-axial fluid collections are identified. The ventricles are normal in size. Patchy subcortical and periventricular white matter low-attenuation changes are stable from prior and statistically related to chronic white matter small vessel ischemic disease. The osseous structures and soft tissues are normal. The mastoid air cells and visualized portions of the paranasal sinuses are well aerated. CT/CT head/brain wo con IMPRESSION: No acute intracranial pathology.
--- NOTE | ~2020-12-08 | XR_ITS ---
EXAMINATION: XR CHEST CLINICAL INFORMATION: Cough COMPARISON: 05/03/2020 TECHNIQUE: Frontal view of the chest was obtained. FINDINGS: Stable diffuse linear reticular markings throughout both lungs. Decreased bilateral streaky and patchy airspace opacities compared to the previous exam. No discrete consolidation on the current exam. No pleural effusion or pneumothorax. Stable cardiomegaly. Pulmonary vascularity within normal limits. Aorta is atherosclerotic. Severe right glenohumeral arthrosis. XR/XR chest 1V IMPRESSION: Stable chronic lung markings. No definite acute pulmonary process.
[2020-12-08 03:07] VITALS: BP 144/75; BP 152/90; PULSE 74; PULSE 92; RESP 13; TEMP 36.6; O2SAT 97; O2SAT 98; BMI 36.0
--- NOTE | 2020-12-08 03:20 | ECG_ITS ---
Test Reason : DIZZINESS Blood Pressure : / mmHG Vent. Rate : 069 BPM Atrial Rate : 000 BPM P-R Int : 000 ms QRS Dur : 128 ms QT Int : 446 ms P-R-T Axes : 000 -20 032 degrees QTc Int : 477 ms Atrial fibrillation Right bundle branch block Abnormal ECG When compared with ECG of 03-NOV-2020 15:45, Atrial fibrillation has replaced Sinus rhythm Referred By: Audra Nguyen Electronically Signed By:MARIA FERNANDA ZHANG MD
[2020-12-08 03:24] VITALS: BP 144/75; PULSE 71
[2020-12-08 03:25] LABS: Glucose, Whole Blood 112 mg/dL (60-115)
[2020-12-08 03:26] VITALS: BP 135/71; PULSE 70
[2020-12-08 03:28] VITALS: BP 113/59; PULSE 75
[2020-12-08 03:45] VITALS: BP 140/73; PULSE 83; RESP 20; TEMP 36.6; O2SAT 97
--- NOTE | 2020-12-08 03:46 | ED.GENADULT ---
HPI - General Adult General Chief complaint: General Medical Stated complaint: GENERAL WEAKNESS Time Seen by Provider: 12/08/20 03:20 Source: patient Mode of arrival: EMS History of Present Illness HPI narrative: This is an 85-year-old male who states that he felt dizzy, with room spinning around him, when he got up from his bed and states that it is still persisting. He denies any changes in visual or speech and denies any unilateral numbness/tingling/weakness. He states he does have a history of having had a stroke previously with residual left-sided numbness. He currently denies any fever, chills, cough, shortness of breath, chest pain/palpitations, GI or symptoms. Related Data Home Medications Medication Instructions Recorded Confirmed atorvastatin 80 mg tablet 80 mg PO BEDTIME 06/03/20 10/04/20 carvedilol 12.5 mg tablet 12.5 mg PO BID 06/03/20 10/04/20 tamsulosin 0.4 mg capsule 0.4 mg PO DAILY 06/03/20 10/04/20 verapamil 180 mg 24 hr 180 mg PO DAILY 06/03/20 10/04/20 capsule,extended release [id number]-[id number]-[id number] 1 tab PO DAILY 07/10/20 10/04/20 tablet (Cerovite Senior) ciprofloxacin HCl 500 mg tablet 500 mg PO BID 10/01/20 10/04/20 carvedilol 25 mg tablet 25 mg PO BID 12/04/20 Previous Rx's Medication Instructions Recorded fluticasone furoate 200 1 ea INHALATION DAILY #60 ea 07/05/20 mcg-vilanterol 25 mcg/dose inhalation powder (Breo Ellipta) sennosides 8.6 mg tablet (Senokot) 8.6 mg PO DAILY #30 tab 07/30/20 simethicone 125 mg capsule (Gas 125 mg PO TID-QID PRN #120 cap 07/30/20 Relief (simethicone)) ascorbate calcium (vitamin C) 500 500 mg PO DAILY 90 Days #90 tab 08/17/20 mg tablet cyanocobalamin (vitamin B-12) 1,000 mcg PO BEDTIME 90 Days #90 09/13/20 1,000 mcg capsule cap ferrous sulfate 325 mg (65 mg 325 mg PO DAILY 90 Days #90 tab 09/13/20 iron) tablet,delayed release furosemide 40 mg tablet 40 mg PO DAILY #90 tab 09/13/20 rivaroxaban 15 mg tablet (Xarelto) 15 mg PO DAILY 90 Days #90 tab 10/08/20 losartan 100 mg tablet 100 mg PO DAILY #90 tab 10/11/20 pantoprazole 40 mg tablet,delayed 40 mg PO DAILY #90 tab 11/09/20 release levofloxacin 500 mg tablet 500 mg PO DAILY 10 Days #10 tab 12/02/20 metronidazole 500 mg tablet 500 mg PO TID 10 Days #30 tab 12/02/20 linaclotide 72 mcg capsule 72 mcg PO DAILY #30 cap 12/04/20 (Linzess) methylcellulose (laxative) 500 mg 500 mg PO DAILY #30 tab 12/04/20 tablet (Citrucel) Allergies Allergy/AdvReac Type Severity Reaction Status Date / Time dabigatran etexilate Allergy Intermediate ITCHING Verified 12/04/20 13:17 [From PRADAXA] JORGE L Inhibitors Allergy Mild UNKNOWN, Verified 12/04/20 13:17 [Jorge L Inhibitors] FOUND IN MEDICAL RECORD 04/[address] GIPSON ezetimibe [From Zetia] Allergy Mild ANAPHYLAXIS Verified 12/04/20 13:17 apixaban [From ELIQUIS] Allergy Unknown UNKNOWN, Verified 12/04/20 13:17 rash rosuvastatin [Crestor] Allergy Unknown myalgia Verified 12/04/20 13:17 Review of Systems Review of Systems: Pertinent positives and negatives as stated in HPI 10 point review of systems otherwise negative. FORMERLY [facility], [facility] Past Medical History Source: nursing notes reviewed Medical History Acute respiratory failure with hypoxia Afib Anemia Anxiety and depression ARDS (adult respiratory distress syndrome) BPH (benign prostatic hyperplasia) Cholecystitis Chronic abdominal pain Constipation COPD (chronic obstructive pulmonary disease) COVID-19 virus infection Current use of anticoagulant therapy Diastolic CHF, acute on chronic Diverticulitis Frequency of micturition GERD (gastroesophageal reflux disease) Headache History of CVA (cerebrovascular accident) History of rib fracture Hypercholesterolemia Hypertension Hypertrophic cardiomyopathy Hypogammaglobulinemia Obesity (BMI 30-39.9) Obstructive sleep apnea Paroxysmal atrial fibrillation Peripheral neuropathy Peripheral vascular disease Polyarthralgia Primary osteoarthritis of right knee Protrusion of lumbar intervertebral disc Tear of medial meniscus of knee Urinary incontinence Surgical History H/O colonoscopy History of left knee replacement History of tonsillectomy History of total right hip replacement History of transurethral resection of prostate Family History Family History Father No problems noted. Mother Hx of type 1 diabetes mellitus Social History Social History Household Members: Spouse Housing: House Do you presently have visiting nurse or other home services: No Alcohol intake: never Patient Tobacco Use Status: Never used Tobacco Years Smoked: 30 yrs ago Second Hand Smoke Exposure: No Advance Directives: No Advance Directives Date on File: 04/06/20 service: No Current occupational status: unemployed and retired Current occupation: Right Handed Physical Exam Vital Signs: Vital Signs: Last Vital Signs Temp 98.3 F 12/08/20 05:52 Pulse 71 12/08/20 05:52 Resp 15 12/08/20 05:52 BP 135/71 12/08/20 05:52 Pulse Ox 100 12/08/20 05:52 Body Mass Index 36.0 VITAL SIGNS: Reviewed. GENERAL: Well developed, well nourished, in no acute distress. HEAD: Normocephalic/atraumatic EYES: PERRLA, EOMI OROPHARYNX: no oral lesions noted, posterior pharynx clear, dry mucosa NECK: Supple, no adenopathy LUNGS: Normal breath sounds. No adventitious sounds or accessory muscle use. SpO2<97> CARDIOVASCULAR: Regular rate and rhythm without noted murmurs, no JVD but there is 1+ lower pitting edema to bilateral ankles ABDOMEN: Soft, non-tender, non-distended with bowel sounds. MUSCULOSKELETAL: No tenderness, deformities, or effusions noted on gross inspection. EXTREMITIES: No cyanosis, clubbing or edema. SKIN: Inspection of the skin reveals no rashes NEUROLOGIC: Alert and oriented x 4. Strength and sensation to light touch were grossly intact x 4, no facial asymmetry, no pronator drift, cranial nerves 2-12 are grossly intact, some difficulty with heel to chen testing NIH Stroke Scale Internal: Initial- Upon Arrival Level of Consciousness: Alert Level of Consciousness Questions: Answers both questions correctly Level of Consciousness Commands: Performs both tasks correctly Best Gaze: Normal Visual: No visual loss Facial Palsy: Normal Motor Arm (Right): No drift Motor Arm (Left): No drift Motor Leg (Right): No drift Motor Leg (Left): No drift Limb Ataxia: Absent Sensory: Normal Best Language: No aphasia Dysarthia: Normal Extinction and Inattention: No abnormality Score: 0 Course Course Course Narrative: This is an 85-year-old male with history and clinical presentation consistent with dizziness of unclear etiology, low suspicion for intracranial source and patient is noted to be on Xarelto and will proceed with CT of the head to rule out any bleed and initial NIH score is 0 but low clinical suspicion again for acute ischemic event. Suspect that this may be volume versus infection in etiology. Review of all investigations negative for acute findings and on ambulation patient has a steady gait and endorses that he feels much better. Patient is otherwise discharged home in stable condition. Medical Decision Making Lab Data Result diagrams: 12/08/20 03:44 12/08/20 03:44 Labs: Lab Results 12/08/20 12/08/20 12/08/20 Range/Units 03:17 03:37 03:43 WBC (4.8-10.8) X10*3/uL RBC (4.60-5.80) X10*6/uL Hgb (14.0-18.0) g/dl Hct (42-52) % MCV (80-98) fL MCH (27.0-33.0) pg MCHC (31.0-36.0) g/dl RDW (11.0-16.0) % Plt Count (160-400) X10*3/uL MPV (9.4-12.4) fL Immature Gran % (Auto) (0.0-0.4) % Neut % (Auto) (45-73) % Lymph % (Auto) (20-40) % [place] % (Auto) (2-11) % Eos % (Auto) (0-4) % Baso % (Auto) (0-2) % Lymph # (Auto) (1.2-4.9) X10*3/uL [place] # (Auto) (0.1-1.2) X10*3/uL Eos # (Auto) (0.0-0.4) X10*3/uL Baso # (Auto) (0.0-0.2) X10*3/uL Abs Immat Gran (auto) (0.00-0.03) X10*3/uL Absolute Neuts (auto) (2.0-8.3) X10*3/uL Absolute Nucleated RBC (0.0-0.012) X10*3/uL Nucleated RBC % (auto) (0.0-0.2) /100WBC PT (9.9-13.0) SEC INR (0.9-1.1) Sodium (135-145) mmol/L Potassium (3.3-5.1) mmol/L Chloride (96-108) mmol/L Carbon Dioxide (22-29) mmol/L Anion Gap (12-20) BUN (9-16) mg/dL Creatinine (0.5-1.4) mg/dL Estim Creat Clear Calc Estimated GFR POC Glucose 112 (60-115) mg/dL Random Glucose (60-115) mg/dL Lactic Acid 1.5 (0.5-2.0) mmol/L Calcium (8.4-10.2) mg/dL Total Bilirubin (0.0-1.0) mg/dL AST (5-37) U/L ALT (0-40) U/L Alkaline Phosphatase (39-117) U/L Troponin I High Sens (<3.5-35.0) ng/L B-Natriuretic Peptide (<100) pg/mL Total Protein (6.5-8.0) g/dL Albumin (3.5-5.0) g/dL Urine Color YELLOW Urine Appearance CLEAR Urine pH 6.5 (5.0-8.0) Ur Specific [place] 1.010 (1.005-1.025) Urine Protein NEG (NEG-TRACE) MG/DL Urine Glucose (UA) NEG (NEG) MG/DL Urine Ketones NEG (NEG) MG/DL Urine Blood NEG (NEG) Urine Nitrite NEG (NEG) Ur Leukocyte Esterase NEG (NEG) Coronavirus (PCR) (Negative) Influenza Type A (PCR) (Negative) Influenza Type B (PCR) (Negative) RSV RNA Qual (PCR) (Negative) 12/08/20 12/08/20 12/08/20 Range/Units 03:44 03:44 03:44 WBC 7.4 (4.8-10.8) X10*3/uL RBC 4.19 L (4.60-5.80) X10*6/uL Hgb 12.3 L (14.0-18.0) g/dl Hct 37.0 L (42-52) % MCV 88.3 (80-98) fL MCH 29.4 (27.0-33.0) pg MCHC 33.2 (31.0-36.0) g/dl RDW 13.9 (11.0-16.0) % Plt Count 176 (160-400) X10*3/uL MPV 9.9 (9.4-12.4) fL Immature Gran % (Auto) 0.3 (0.0-0.4) % Neut % (Auto) 61.8 (45-73) % Lymph % (Auto) 24.5 (20-40) % [place] % (Auto) 10.7 (2-11) % Eos % (Auto) 2.4 (0-4) % Baso % (Auto) 0.3 (0-2) % Lymph # (Auto) 1.8 (1.2-4.9) X10*3/uL [place] # (Auto) 0.8 (0.1-1.2) X10*3/uL Eos # (Auto) 0.2 (0.0-0.4) X10*3/uL Baso # (Auto) 0.0 (0.0-0.2) X10*3/uL Abs Immat Gran (auto) 0.02 (0.00-0.03) X10*3/uL Absolute Neuts (auto) 4.6 (2.0-8.3) X10*3/uL Absolute Nucleated RBC 0.000 (0.0-0.012) X10*3/uL Nucleated RBC % (auto) 0.0 (0.0-0.2) /100WBC PT (9.9-13.0) SEC INR (0.9-1.1) Sodium 144 (135-145) mmol/L Potassium 3.4 (3.3-5.1) mmol/L Chloride 108 (96-108) mmol/L Carbon Dioxide 27 (22-29) mmol/L Anion Gap 12 (12-20) BUN 15 (9-16) mg/dL Creatinine 1.04 (0.5-1.4) mg/dL Estim Creat Clear Calc 51.2 Estimated GFR > 60 POC Glucose (60-115) mg/dL Random Glucose 110 (60-115) mg/dL Lactic Acid (0.5-2.0) mmol/L Calcium 9.0 (8.4-10.2) mg/dL Total Bilirubin 0.3 (0.0-1.0) mg/dL AST 25 (5-37) U/L ALT 20 (0-40) U/L Alkaline Phosphatase 46 (39-117) U/L Troponin I High Sens (<3.5-35.0) ng/L B-Natriuretic Peptide 97 (<100) pg/mL Total Protein 5.7 L (6.5-8.0) g/dL Albumin 3.8 (3.5-5.0) g/dL Urine Color Urine Appearance Urine pH (5.0-8.0) Ur Specific [place] (1.005-1.025) Urine Protein (NEG-TRACE) MG/DL Urine Glucose (UA) (NEG) MG/DL Urine Ketones (NEG) MG/DL Urine Blood (NEG) Urine Nitrite (NEG) Ur Leukocyte Esterase (NEG) Coronavirus (PCR) (Negative) Influenza Type A (PCR) (Negative) Influenza Type B (PCR) (Negative) RSV RNA Qual (PCR) (Negative) 12/08/20 12/08/20 12/08/20 Range/Units 03:44 03:44 03:45 WBC (4.8-10.8) X10*3/uL RBC (4.60-5.80) X10*6/uL Hgb (14.0-18.0) g/dl Hct (42-52) % MCV (80-98) fL MCH (27.0-33.0) pg MCHC (31.0-36.0) g/dl RDW (11.0-16.0) % Plt Count (160-400) X10*3/uL MPV (9.4-12.4) fL Immature Gran % (Auto) (0.0-0.4) % Neut % (Auto) (45-73) % Lymph % (Auto) (20-40) % [place] % (Auto) (2-11) % Eos % (Auto) (0-4) % Baso % (Auto) (0-2) % Lymph # (Auto) (1.2-4.9) X10*3/uL [place] # (Auto) (0.1-1.2) X10*3/uL Eos # (Auto) (0.0-0.4) X10*3/uL Baso # (Auto) (0.0-0.2) X10*3/uL Abs Immat Gran (auto) (0.00-0.03) X10*3/uL Absolute Neuts (auto) (2.0-8.3) X10*3/uL Absolute Nucleated RBC (0.0-0.012) X10*3/uL Nucleated RBC % (auto) (0.0-0.2) /100WBC PT 29.0 H (9.9-13.0) SEC INR 2.5 H (0.9-1.1) Sodium (135-145) mmol/L Potassium (3.3-5.1) mmol/L Chloride (96-108) mmol/L Carbon Dioxide (22-29) mmol/L Anion Gap (12-20) BUN (9-16) mg/dL Creatinine (0.5-1.4) mg/dL Estim Creat Clear Calc Estimated GFR POC Glucose (60-115) mg/dL Random Glucose (60-115) mg/dL Lactic Acid (0.5-2.0) mmol/L Calcium (8.4-10.2) mg/dL Total Bilirubin (0.0-1.0) mg/dL AST (5-37) U/L ALT (0-40) U/L Alkaline Phosphatase (39-117) U/L Troponin I High Sens 7.9 (<3.5-35.0) ng/L B-Natriuretic Peptide (<100) pg/mL Total Protein (6.5-8.0) g/dL Albumin (3.5-5.0) g/dL Urine Color Urine Appearance Urine pH (5.0-8.0) Ur Specific [place] (1.005-1.025) Urine Protein (NEG-TRACE) MG/DL Urine Glucose (UA) (NEG) MG/DL Urine Ketones (NEG) MG/DL Urine Blood (NEG) Urine Nitrite (NEG) Ur Leukocyte Esterase (NEG) Coronavirus (PCR) NEGATIVE (Negative) Influenza Type A (PCR) NEGATIVE (Negative) Influenza Type B (PCR) NEGATIVE (Negative) RSV RNA Qual (PCR) NEGATIVE (Negative) ECG Data Attestation: I personally reviewed and interpreted this ECG as follows: Prior ECG tracings: available for review (11/03/2020 no acute changes on comparison) Interpretation: Atrial fibrillation, HR -69, right bundle branch block, no STEMI, QTC is within normal limits. Discharge Plan Discharge Clinical Impression: Weakness, Postural dizziness Patient Disposition: Home, Self-Care Instructions: Lightheadedness (ED) Additional Instructions: 1. Resume all home medications as prescribed. 2. Follow-up with your primary care provider on Thursday morning. Return to the ER for acute worsening of your symptoms. Prescriptions: No Action Breo Ellipta 200-25 mcg/dose blister with device 1 ea inhalation DAILY Qty: 60 RF: 2 ascorbate calcium (vitamin C) 500 mg tablet 500 mg PO DAILY 90 Days Qty: 90 RF: 3 ferrous sulfate 325 mg (65 mg iron) tablet,delayed release (DR/EC) 325 mg PO DAILY 90 Days Qty: 90 RF: 3 furosemide 40 mg tablet 40 mg PO DAILY Qty: 90 RF: 1 cyanocobalamin (vitamin B-12) 1,000 mcg capsule 1,000 mcg PO BEDTIME 90 Days Qty: 90 RF: 3 Xarelto 15 mg tablet 15 mg PO DAILY 90 Days Qty: 90 RF: 3 losartan 100 mg tablet 100 mg PO DAILY Qty: 90 RF: 2 pantoprazole 40 mg tablet,delayed release (DR/EC) 40 mg PO DAILY Qty: 90 RF: 3 atorvastatin 80 mg tablet 80 mg PO BEDTIME RF: 0 carvedilol 12.5 mg tablet 12.5 mg PO BID RF: 0 verapamil 180 mg capsule,ext rel. pellets 24 hr 180 mg PO DAILY RF: 0 tamsulosin 0.4 mg capsule 0.4 mg PO DAILY RF: 0 Cerovite Senior Tablet 1 tab PO DAILY RF: 0 levofloxacin 500 mg tablet 500 mg PO DAILY 10 Days Qty: 10 RF: 0 metronidazole 500 mg tablet 500 mg PO TID 10 Days Qty: 30 RF: 0 carvedilol 25 mg tablet 25 mg PO BID RF: 0 Citrucel 500 mg tablet 500 mg PO DAILY Qty: 30 RF: 2 Linzess 72 mcg capsule 72 mcg PO DAILY Qty: 30 RF: 2 sennosides [Senokot] 8.6 mg tablet 8.6 mg PO DAILY Qty: 30 RF: 6 simethicone [Gas Relief (simethicone)] 125 mg capsule 125 mg PO TID-QID PRN (Reason: abdominal distention) Qty: 120 RF: 2 ciprofloxacin HCl 500 mg tablet 500 mg PO BID RF: 0
[2020-12-08 03:54] LABS: Basophils Percent Auto 0.3 % (0-2); Eosinophils Absolute Auto 0.2 X10*3/uL (0.0-0.4); Eosinophils Percent Auto 2.4 % (0-4); Hemoglobin 12.3 g/dl (14.0-18.0); Imm Gran Abs Auto 0.02 X10*3/uL (0.00-0.03); Imm Gran Pct Auto 0.3 % (0.0-0.4); Lymphocytes Absolute Auto 1.8 X10*3/uL (1.2-4.9); Lymphocytes Percent Auto 24.5 % (20-40); MANUAL DIFF FLAG NO; Mean Corpuscular HGB Conc 33.2 g/dl (31.0-36.0); Mean Corpuscular Hemoglobin 29.4 pg (27.0-33.0); Mean Corpuscular Volume 88.3 fL (80-98); Mean Platelet Volume 9.9 fL (9.4-12.4); Monocytes Absolute Auto 0.8 X10*3/uL (0.1-1.2); Monocytes Percent Auto 10.7 % (2-11); Neutrophils Absolute Auto 4.6 X10*3/uL (2.0-8.3); Neutrophils Percent Auto 61.8 % (45-73); Platelet Count 176 X10*3/uL (160-400); Red Blood Count 4.19 X10*6/uL (4.60-5.80); Red Cell Distribution Width 13.9 % (11.0-16.0); White Blood Count 7.4 X10*3/uL (4.8-10.8)
[2020-12-08 03:55] LABS: Appearance Urine CLEAR; Color Urine YELLOW; Glucose Urine UA NEG (NEG); Leukocyte Esterase Urine NEG (NEG); Nitrite Urine NEG (NEG); PH 6.5 (5.0-8.0); UACC Culture Trigger NO; Urine Blood NEG (NEG); Urine Ketones NEG (NEG); Urine Protein NEG (NEG-TRACE)
[2020-12-08 03:59] LABS: INTERNATIONAL NORM RATIO 2.5 (0.9-1.1)
[2020-12-08 04:14] LABS: Lactic Acid 1.5 mmol/L (0.5-2.0)
[2020-12-08 04:23] LABS: B Type Natriuretic Peptide 97 pg/mL (<100); Troponin-I High Sensitivity 7.9 ng/L (<3.5-35.0)
[2020-12-08 04:31] LABS: Alanine Aminotransferase 20 U/L (0-40); Albumin Level 3.8 g/dL (3.5-5.0); Alkaline Phosphatase 46 U/L (39-117); Anion Gap 12 (12-20); Aspartate Amino Transferase 25 U/L (5-37); Bilirubin Total 0.3 mg/dL (0.0-1.0); Blood Urea Nitrogen 15 mg/dL (9-16); Carbon Dioxide 27 mmol/L (22-29); Chloride 108 mmol/L (96-108); Creatinine Clr Calc Pharmacy 51.2; Estimated Glomerular Filt Rate > 60; Glucose Random 110 mg/dL (60-115); Potassium 3.4 mmol/L (3.3-5.1); Sodium 144 mmol/L (135-145); Total Protein 5.7 g/dL (6.5-8.0)
[2020-12-08 04:35] LABS: Influenza A PCR NEGATIVE (Negative); Influenza B PCR NEGATIVE (Negative); Resp Syncy Virus RNA Qual PCR NEGATIVE (Negative); SARS COV2 PCR INHOUSE NEGATIVE (Negative)
[2020-12-08 05:52] VITALS: BP 135/71; PULSE 71; RESP 15; TEMP 36.8; O2SAT 100
--- NOTE | 2020-12-08 06:31 | PC.NURSE ---
Pt alert and oriented x4, calm and cooperative. pt denies pain. Pt denies numbness at this time. No left sided weakness. Pt denies headache, blurred vision, or dizziness at this time. IV removed. Vitals stable. Pt ambulated with RN and steady on his feet, did not appear weak pt stated I feel good when ambulating. Pt educated on discharged and agrees to plan.
== END 2020-12-08 07:55 | disposition home or self-care (01) ==
PROVIDERS: Emergency Provider Student in an Organized Health Care Education/Training Program
DX: R53.1 Weakness (principal); R42 Dizziness and giddiness; I11.0 Hypertensive heart disease with heart failure; I50.30 Unspecified diastolic (congestive) heart failure; J44.9 Chronic obstructive pulmonary disease, unspecified; I48.0 Paroxysmal atrial fibrillation; Z20.822 Contact with and (suspected) exposure to COVID-19; Z86.73 Personal history of transient ischemic attack (TIA), and cerebral infarction without residual deficits; Z79.01 Long term (current) use of anticoagulants
CPT/HCPCS: 0241U; 36415; 70450; 71045; 80053; 81003; 82947; 83605; 83880; 84484; 85025; 85610; 87040; 93005; 99284; 99285

== ENCOUNTER → 2021-01-11 12:59 | Outpatient (BNVA) | payer MEDICARE, SELFPAY | PROVIDERS: PCP Internal Medicine Geriatric Medicine; Visit Provider Nurse Practitioner Family | DX: K21.9 Gastro-esophageal reflux disease without esophagitis (principal); K58.1 Irritable bowel syndrome with constipation; K59.04 Chronic idiopathic constipation; R13.10 Dysphagia, unspecified | CPT/HCPCS: Q3014 ==

== ENCOUNTER 2021-03-15 09:16 | Outpatient (REF) | payer MEDICARE, SELFPAY ==
--- NOTE | ~2021-03-15 | FL_ITS ---
EXAMINATION: FL BARIUM SWALLOW CLINICAL INFORMATION: Dysphagia COMPARISON: None TECHNIQUE: Barium swallow examination is performed using fluoroscopic evaluation in addition to multiple fluoroscopic spot views. The patient is imaged both upright and prone and using both thick and thin sulfate along with effervescent granules. Barium tablet was also administered. Fluoroscopy time: 0.8 minutes DAP: 12 Gycm2 Images: 43 FINDINGS: The swallowing mechanism is normal. No aspiration or penetration is seen. Esophageal motility is normal. There is a small sliding-type hiatal hernia. There is significant gastroesophageal reflux. No mass or stricture is seen. There is a small duodenal diverticulum. Barium tablet passed freely into the stomach. FL/FL barium swallow IMPRESSION: Small sliding-type hiatal hernia. Significant gastroesophageal reflux.
== END 2021-03-15 09:17 | disposition home or self-care (01) ==
LOC: HO.XRAY 09:16
PROVIDERS: PCP Internal Medicine Geriatric Medicine; Visit Provider Nurse Practitioner Family
DX: R13.10 Dysphagia, unspecified (principal)
CPT/HCPCS: 74220

== ENCOUNTER → 2021-03-18 10:19 | Outpatient (BNVA) | payer MEDICARE, SELFPAY | PROVIDERS: PCP Internal Medicine Geriatric Medicine; Visit Provider Nurse Practitioner Family | DX: K21.9 Gastro-esophageal reflux disease without esophagitis (principal); K58.1 Irritable bowel syndrome with constipation; K59.04 Chronic idiopathic constipation | CPT/HCPCS: 99212 ==

== ENCOUNTER 2021-05-27 04:36 | Emergency (ER) | payer OTHER, SELFPAY ==
--- NOTE | ~2021-05-27 | CT_ITS ---
EXAMINATION: CT ABDOMEN AND PELVIS WITH CONTRAST CLINICAL INFORMATION: Left lower quadrant pain COMPARISON: 11/03/2020 TECHNIQUE: Multidetector volumetric images were obtained from the superior aspect of the liver through the pubic symphysis following administration 85 mL of Omnipaque 350 intravenous contrast. Sagittal and coronal reformatted images were obtained on the technologist's workstation. Oral contrast: No This CT examination was performed using dose optimization techniques as appropriate, variously including the following: *Automated exposure control *Adjustment of mA and/or kV according to patient size (this includes techniques or standardized protocols for targeted exams where dose is matched to indication/reason for exam; i.e. extremities or head) *Use of iterative reconstruction technique DLP: 615 mGy-cm FINDINGS: LUNG BASES: Bibasilar minimal atelectasis. The visualized cardiac structures are unremarkable. LIVER, GALLBLADDER, AND BILIARY TREE: The liver is normal in size, shape, and attenuation. No focal hepatic lesion or biliary ductal dilatation is present. The gallbladder is unremarkable with no evidence of radiopaque gallstones, gallbladder wall thickening, or obvious pericholecystic inflammatory changes. PANCREAS: Unremarkable. SPLEEN: Unremarkable. ADRENAL GLANDS: Unremarkable. KIDNEYS AND URETERS: The kidneys are normal in size, shape, and attenuation. No hydronephrosis, hydroureter, or calculi seen. No perinephric stranding. Simple cyst at the midpole of the right kidney. No follow-up imaging recommended. BLADDER: Unremarkable. GASTROINTESTINAL TRACT: Stomach is unremarkable. Normal caliber small bowel. There is no obstruction. There is diffuse colonic diverticulosis. Focal wall thickening of the sigmoid colon with adjacent inflammatory changes, consistent with diverticulitis. No free air. No fluid collection. ABDOMINAL WALL: No significant hernia is appreciated. LYMPH NODES: Normal. VASCULAR: Normal caliber aorta with mild to moderate atherosclerotic calcification. PELVIC VISCERA: Limited evaluation due to artifact from hip arthroplasty hardware. No pelvic mass. OSSEOUS STRUCTURES: There is a total right hip arthroplasty. The femoral component articulates appropriately with the acetabular component. No periprosthetic lucency or fracture. Bilateral L5 pars defects. Degenerative changes throughout the spine. CT/CT abdomen pelvis w con IMPRESSION: Acute sigmoid diverticulitis. No free air or fluid collection. Fleischner guidelines were followed.
[2021-05-27 04:52] VITALS: BP 198/98; PULSE 64; RESP 16; TEMP 35.8; O2SAT 98; BMI 35.6
[2021-05-27 04:56] VITALS: BP 150/80; PULSE 67
[2021-05-27 06:11] LABS: MANUAL DIFF FLAG NO
[2021-05-27 06:12] LABS: Basophils Percent Auto 0.3 % (0-2); Eosinophils Absolute Auto 0.2 X10*3/uL (0.0-0.4); Eosinophils Percent Auto 1.7 % (0-4); Hematocrit 37.6 % (42.0-52.0); Hemoglobin 12.1 g/dl (14.0-18.0); Imm Gran Abs Auto 0.03 X10*3/uL (0.00-0.03); Imm Gran Pct Auto 0.3 % (0.0-0.4); Lymphocytes Absolute Auto 1.7 X10*3/uL (1.2-4.9); Lymphocytes Percent Auto 19.6 % (20-40); Mean Corpuscular HGB Conc 32.2 g/dl (31.0-36.0); Mean Corpuscular Volume 93.1 fL (80.0-98.0); Mean Platelet Volume 9.7 fL (9.4-12.4); Monocytes Absolute Auto 0.8 X10*3/uL (0.1-1.2); Monocytes Percent Auto 9.3 % (2-11); Neutrophils Percent Auto 68.8 % (45-73); Platelet Count 163 X10*3/uL (160-400); Red Blood Count 4.04 X10*6/uL (4.60-5.80); Red Cell Distribution Width 13.1 % (11.0-16.0); White Blood Count 8.7 X10*3/uL (4.8-10.8)
[2021-05-27 06:32] LABS: Alanine Aminotransferase 33 U/L (0-40); Albumin Level 3.5 g/dL (3.5-5.0); Alkaline Phosphatase 55 U/L (39-117); Anion Gap 13 (12-20); Aspartate Amino Transferase 39 U/L (5-37); Bilirubin Total 0.4 mg/dL (0.0-1.0); Blood Urea Nitrogen 19 mg/dL (9-16); Calcium 8.7 mg/dL (8.4-10.2); Carbon Dioxide 24 mmol/L (22-29); Chloride 111 mmol/L (96-108); Creatinine Clr Calc Pharmacy 58.8; Estimated Glomerular Filt Rate > 60; Glucose Random 94 mg/dL (60-115); Potassium 3.9 mmol/L (3.3-5.1); Sodium 144 mmol/L (135-145); Total Protein 5.7 g/dL (6.5-8.0)
--- NOTE | 2021-05-27 07:10 | ED_ITS ---
HPI - Abdominal Pain General Chief Complaint: Abdominal Pain Stated Complaint: Abd pain Time Seen by Provider: 05/27/21 05:09 Source: patient Mode of arrival: ambulatory History of Present Illness HPI narrative: 85-year-old male with history of diverticulitis presents with acute onset of left lower quadrant pain for which he tried have a bowel movement and the pain increased. Patient states that the pain extends into the groin area and has not been associated with any fever, chills, nausea, vomiting. Related Data Home Medications Medication Instructions Recorded Confirmed atorvastatin 80 mg tablet 80 mg PO BEDTIME 06/03/20 10/04/20 carvedilol 12.5 mg tablet 12.5 mg PO BID 06/03/20 10/04/20 carvedilol 25 mg tablet 25 mg PO BID 12/04/20 Previous Rx's Medication Instructions Recorded fluticasone furoate 200 1 ea INHALATION DAILY #60 ea 07/05/20 mcg-vilanterol 25 mcg/dose inhalation powder (Breo Ellipta) simethicone 125 mg capsule (Gas 125 mg PO TID-QID PRN #120 cap 07/30/20 Relief (simethicone)) ascorbate calcium (vitamin C) 500 500 mg PO DAILY 90 Days #90 tab 08/17/20 mg tablet cyanocobalamin (vitamin B-12) 1,000 mcg PO BEDTIME 90 Days #90 09/13/20 1,000 mcg capsule cap ferrous sulfate 325 mg (65 mg 325 mg PO DAILY 90 Days #90 tab 09/13/20 iron) tablet,delayed release rivaroxaban 15 mg tablet (Xarelto) 15 mg PO DAILY 90 Days #90 tab 10/08/20 losartan 100 mg tablet 100 mg PO DAILY #90 tab 10/11/20 pantoprazole 40 mg tablet,delayed 40 mg PO DAILY #90 tab 11/09/20 release methylcellulose (laxative) 500 mg 500 mg PO DAILY #30 tab 12/04/20 tablet (Citrucel) linaclotide 145 mcg capsule 145 mcg PO DAILY #30 cap 01/11/21 (Linzess) sennosides 8.6 mg tablet (Senokot) 8.6 mg PO DAILY #30 tab 01/15/21 furosemide 40 mg tablet 40 mg PO DAILY #90 tab 03/11/21 sucralfate 100 mg/mL oral 10 ml PO BEDTIME #400 ml 03/18/21 suspension epqiwovyrogv-qwglfstc-prdlsn 1 tab PO DAILY #90 tab 03/29/21 tablet (Cerovite Senior) tamsulosin 0.4 mg capsule 0.4 mg PO DAILY 90 Days #90 cap 03/29/21 verapamil 180 mg 24 hr 180 mg PO DAILY #90 cap 03/29/21 capsule,extended release Allergies Allergy/AdvReac Type Severity Reaction Status Date / Time dabigatran etexilate Allergy Intermediate ITCHING Verified 03/18/21 10:41 [From PRADAXA] JORGE L Inhibitors Allergy Mild UNKNOWN, Verified 03/18/21 10:41 [Jorge L Inhibitors] FOUND IN MEDICAL RECORD 04/[address] GIPSON ezetimibe [From Zetia] Allergy Mild ANAPHYLAXIS Verified 03/18/21 10:41 apixaban [From ELIQUIS] Allergy Unknown UNKNOWN, Verified 03/18/21 10:41 rash rosuvastatin [Crestor] Allergy Unknown myalgia Verified 03/18/21 10:41 Review of Systems Review of Systems Pertinent positives and negatives as stated in HPI 10 point review of systems is otherwise negative. [facility] Past Medical History Source: nursing notes reviewed Medical History Acute respiratory failure with hypoxia Afib Anemia Anxiety and depression ARDS (adult respiratory distress syndrome) BPH (benign prostatic hyperplasia) Cholecystitis Chronic abdominal pain Constipation COPD (chronic obstructive pulmonary disease) COVID-19 virus infection Current use of anticoagulant therapy Diastolic CHF, acute on chronic Diverticulitis Frequency of micturition GERD (gastroesophageal reflux disease) Headache History of CVA (cerebrovascular accident) History of rib fracture Hypercholesterolemia Hypertension Hypertrophic cardiomyopathy Hypogammaglobulinemia Obesity (BMI 30-39.9) Obstructive sleep apnea Paroxysmal atrial fibrillation Peripheral neuropathy Peripheral vascular disease Polyarthralgia Primary osteoarthritis of right knee Protrusion of lumbar intervertebral disc Tear of medial meniscus of knee Urinary incontinence Surgical History H/O colonoscopy History of left knee replacement History of tonsillectomy History of total right hip replacement History of transurethral resection of prostate Family History Family History Father No problems noted. Mother Hx of type 1 diabetes mellitus Social History Social History Household Members: Spouse Housing: House Do you presently have visiting nurse or other home services: No Alcohol intake: never Patient Tobacco Use Status: Never used Tobacco Years Smoked: 30 yrs ago Second Hand Smoke Exposure: No Advance Directives: Yes Advance Directives on File: Yes Advance Directives Date on File: 04/06/20 service: No Current occupational status: unemployed and retired Current occupation: Right Handed Physical Exam ED Vital Signs: Vital Signs - 24 hr 05/27/21 04:52 Temperature 96.5 F L Pulse Rate 64 Respiratory Rate 16 Blood Pressure 198/98 H Pulse Oximetry 98 BMI result Body Mass Index 35.6 VITAL SIGNS: Reviewed. GENERAL: Well developed, well nourished, in no acute distress. HEAD: Normocephalic/atraumatic EYES: PERRLA, EOMI EARS: Ext canals without abnormality OROPHARYNX: no oral lesions noted, posterior pharynx clear LUNGS: Normal breath sounds. No adventitious sounds or accessory muscle use. SpO2<98> CARDIOVASCULAR: Regular rate and rhythm without noted murmurs, no JVD or lower extremity edema. ABDOMEN: Soft, left lower quadrant pain on palpation without rebound, non- distended with bowel sounds. MUSCULOSKELETAL: No tenderness, deformities, or effusions noted on gross inspection. EXTREMITIES: No cyanosis, clubbing or edema. SKIN: Inspection of the skin reveals no rashes NEUROLOGIC: Alert and oriented x 4. Strength and sensation to light touch were grossly intact x 4. Course Course Course Narrative: 85-year-old male with history and clinical presentation suggestive of possible recurrence of diverticulitis, less likely renal colic/hernia. Patient is not nauseous or vomiting so if CT scan is positive he could go home on p.o. antibiotics. Review of all investigations thus far negative for acute findings. Signed out to Dr Yun. MDM - Abdominal Pain Lab Data Result diagrams: 05/27/21 06:08 05/27/21 06:08 Labs: Lab Results 05/27/21 05/27/21 Range/Units 06:08 06:08 WBC 8.7 (4.8-10.8) X10*3/uL RBC 4.04 L (4.60-5.80) X10*6/uL Hgb 12.1 L (14.0-18.0) g/dl Hct 37.6 L (42.0-52.0) % MCV 93.1 (80.0-98.0) fL MCH 30.0 (27.0-33.0) pg MCHC 32.2 (31.0-36.0) g/dl RDW 13.1 (11.0-16.0) % Plt Count 163 (160-400) X10*3/uL MPV 9.7 (9.4-12.4) fL Immature Gran % (Auto) 0.3 (0.0-0.4) % Neut % (Auto) 68.8 (45-73) % Lymph % (Auto) 19.6 L (20-40) % [place] % (Auto) 9.3 (2-11) % Eos % (Auto) 1.7 (0-4) % Baso % (Auto) 0.3 (0-2) % Lymph # (Auto) 1.7 (1.2-4.9) X10*3/uL [place] # (Auto) 0.8 (0.1-1.2) X10*3/uL Eos # (Auto) 0.2 (0.0-0.4) X10*3/uL Baso # (Auto) 0.0 (0.0-0.2) X10*3/uL Abs Immat Gran (auto) 0.03 (0.00-0.03) X10*3/uL Absolute Neuts (auto) 6.0 (2.0-8.3) x10*3/uL Absolute Nucleated RBC 0.000 (0.0-0.012) X10*3/uL Nucleated RBC % (auto) 0.0 (0.0-0.2) /100WBC Sodium 144 (135-145) mmol/L Potassium 3.9 (3.3-5.1) mmol/L Chloride 111 H (96-108) mmol/L Carbon Dioxide 24 (22-29) mmol/L Anion Gap 13 (12-20) BUN 19 H (9-16) mg/dL Creatinine 0.90 (0.5-1.4) mg/dL Estim Creat Clear Calc 58.8 Estimated GFR > 60 Random Glucose 94 (60-115) mg/dL Calcium 8.7 (8.4-10.2) mg/dL Total Bilirubin 0.4 (0.0-1.0) mg/dL AST 39 H D (5-37) U/L ALT 33 (0-40) U/L Alkaline Phosphatase 55 (39-117) U/L Total Protein 5.7 L (6.5-8.0) g/dL Albumin 3.5 (3.5-5.0) g/dL Discharge Plan Discharge Clinical Impression: Abdominal pain, left lower quadrant Patient Disposition: Still a Patient Prescriptions: No Action Breo Ellipta 200-25 mcg/dose blister with device 1 ea inhalation DAILY Qty: 60 2RF ascorbate calcium (vitamin C) 500 mg tablet 500 mg PO DAILY 90 Days Qty: 90 3RF ferrous sulfate 325 mg (65 mg iron) tablet,delayed release (DR/EC) 325 mg PO DAILY 90 Days Qty: 90 3RF cyanocobalamin (vitamin B-12) 1,000 mcg capsule 1,000 mcg PO BEDTIME 90 Days Qty: 90 3RF Xarelto 15 mg tablet 15 mg PO DAILY 90 Days Qty: 90 3RF Rx Instructions: must administer with evening meal losartan 100 mg tablet 100 mg PO DAILY Qty: 90 2RF pantoprazole 40 mg tablet,delayed release (DR/EC) 40 mg PO DAILY Qty: 90 3RF sennosides [Senokot] 8.6 mg tablet 8.6 mg PO DAILY Qty: 30 6RF furosemide 40 mg tablet 40 mg PO DAILY Qty: 90 1RF tamsulosin 0.4 mg capsule 0.4 mg PO DAILY 90 Days Qty: 90 3RF verapamil 180 mg capsule,ext rel. pellets 24 hr 180 mg PO DAILY Qty: 90 3RF Cerovite Senior Tablet 1 tab PO DAILY Qty: 90 3RF atorvastatin 80 mg tablet 80 mg PO BEDTIME 0RF carvedilol 12.5 mg tablet 12.5 mg PO BID 0RF carvedilol 25 mg tablet 25 mg PO BID 0RF Citrucel 500 mg tablet 500 mg PO DAILY Qty: 30 2RF Rx Instructions: take it with full glass of water simethicone [Gas Relief (simethicone)] 125 mg capsule 125 mg PO TID-QID PRN (Reason: abdominal distention) Qty: 120 2RF sucralfate 100 mg/mL suspension 10 ml PO BEDTIME Qty: 400 3RF Linzess 145 mcg capsule 145 mcg PO DAILY Qty: 30 2RF
[2021-05-27] MEDS: iohexoL 350 MG/ML 100 ML INFUS..BTL IV (08:10)
[2021-05-27 08:43] LABS: Appearance Urine CLEAR; Color Urine YELLOW; Glucose Urine UA NEG (NEG); Leukocyte Esterase Urine NEG (NEG); Nitrite Urine NEG (NEG); Specific Gravity - Urine <= 1.005 (1.005-1.025); Urine Blood NEG (NEG); Urine Ketones NEG (NEG); Urine Protein NEG (NEG-TRACE)
[2021-05-27 09:09] VITALS: BP 211/83; PULSE 84; RESP 15; O2SAT 98
[2021-05-27] MEDS: carvediloL 25 MG TABLET PO (09:20)
[2021-05-27] MEDS: metroNIDAZOLE 500 MG TABLET PO (09:20)
[2021-05-27] MEDS: levoFLOXacin 500 MG TABLET PO (09:21)
[2021-05-27] MEDS: Furosemide 40 MG TABLET PO (09:21)
[2021-05-27] MEDS: Losartan Potassium 50 MG TABLET 100 MG PO (09:21)
[2021-05-27] MEDS: VerapamiL HCL SR 180 MG TABLET.ER PO (10:11)
[2021-05-27 10:30] VITALS: BP 220/97
[2021-05-27 11:45] VITALS: BP 170/79; PULSE 59; RESP 18
== END 2021-05-27 12:05 | disposition home or self-care (01) ==
PROVIDERS: Student in an Organized Health Care Education/Training Program; Emergency Provider Emergency Medicine
DX: K57.32 Diverticulitis of large intestine without perforation or abscess without bleeding (principal); R10.32 Left lower quadrant pain
CPT/HCPCS: 36415; 74177; 80053; 81003; 85025; 99284; Q9967

== ENCOUNTER 2021-05-30 13:21 | Emergency (ER) | payer OTHER, SELFPAY ==
--- NOTE | ~2021-05-30 | XR_ITS ---
EXAMINATION: XR CHEST CLINICAL INFORMATION: Shortness of breath. COMPARISON: 12/08/[address] scan dated 04/01/2020 TECHNIQUE: 2 views of the chest were obtained. FINDINGS: Mild coarsened interstitial markings are seen bilaterally without significant change. Mild pleural thickening bilaterally without significant change as well. There are no pleural effusions. The heart and mediastinal structures are unremarkable. XR/XR chest 2V IMPRESSION: Coarsened interstitial markings bilaterally are similar to previous studies and correlate with known chronic interstitial changes. No acute cardiopulmonary process.
--- NOTE | 2021-05-30 13:40 | ECG_ITS ---
Test Reason : CHEST PAIN Blood Pressure : / mmHG Vent. Rate : 056 BPM Atrial Rate : 056 BPM P-R Int : 284 ms QRS Dur : 126 ms QT Int : 486 ms P-R-T Axes : 056 -18 073 degrees QTc Int : 468 ms Sinus bradycardia with 1st degree A-V block with Blocked Premature atrial complexes Right bundle branch block Septal infarct , age undetermined Possible Lateral infarct , age undetermined Abnormal ECG When compared with ECG of 08-DEC-2020 03:23, Sinus rhythm has replaced Atrial fibrillation T wave inversion now evident in Lateral leads Referred By: Generic ED Physician Electronically Signed By:DEON DALAL MD
[2021-05-30 13:42] VITALS: BP 160/90; BP 161/49; PULSE 64; PULSE 65; RESP 16; TEMP 37.2; O2SAT 97; BMI 37.0
--- NOTE | 2021-05-30 15:50 | ED.CHESTPAIN ---
HPI - Chest Pain General Chief Complaint: Chest Pain Stated Complaint: CP Time Seen by Provider: 05/30/21 15:50 Source: patient Mode of arrival: ambulatory Limitations: no limitations History of Present Illness HPI narrative: This is an 85-year-old male past medical history significant for hypertension, atrial fibrillation on Xarelto, peripheral vascular disease, meningioma, hypertrophic cardiomyopathy, first-degree AV block presenting to the emergency department with complaints of chest pain since yesterday. Patient tells me that yesterday he had 1 episode of chest tightness / discomfort that lasted approximately an hour localized to the substernal region, nonradiating. Patient tells me he has never had chest pain like this before. He tells me that today he again experienced an episode of chest pain that lasted a few hours, he tells me he was at physical therapy and he got this discomfort and shortness of breath while at physical therapy that inhibited him from completed his physical therapy session. He tells me that he became short of breath, and he tells me that the shortness of breath is worse with ambulation. He tells me he usually does not have shortness of breath on exertion. After physical therapy he went home and spoke to his primary care provider who advised him to come to the emergency department today. He denies any significant cardiac family history. He is anticoagulated with Xarelto. He denies palpitations, diaphoresis, radiation of pain, nausea, vomiting, abdominal pain, headache, dizziness, weakness, leg swelling, calf pain or tenderness, disequilibrium, dizziness. MD complaint: chest pain Pertinent past history: coronary artery disease Onset (ago): day(s) (2) Timing of current episode: episodic Prior episodes: No Onset: during rest and during exertion Pain location: substernal Pain radiation: none Severity: moderate Quality: tightness Relieving factors: nothing Exacerbating factors: nothing Associated symptoms: dyspnea Treatment prior to arrival: none Related Data Home Medications Medication Instructions Recorded Confirmed atorvastatin 80 mg tablet 80 mg PO BEDTIME 06/03/20 10/04/20 carvedilol 12.5 mg tablet 12.5 mg PO BID 06/03/20 10/04/20 carvedilol 25 mg tablet 25 mg PO BID 12/04/20 Previous Rx's Medication Instructions Recorded fluticasone furoate 200 1 ea INHALATION DAILY #60 ea 07/05/20 mcg-vilanterol 25 mcg/dose inhalation powder (Breo Ellipta) simethicone 125 mg capsule (Gas 125 mg PO TID-QID PRN #120 cap 07/30/20 Relief (simethicone)) ascorbate calcium (vitamin C) 500 500 mg PO DAILY 90 Days #90 tab 08/17/20 mg tablet cyanocobalamin (vitamin B-12) 1,000 mcg PO BEDTIME 90 Days #90 09/13/20 1,000 mcg capsule cap ferrous sulfate 325 mg (65 mg 325 mg PO DAILY 90 Days #90 tab 09/13/20 iron) tablet,delayed release rivaroxaban 15 mg tablet (Xarelto) 15 mg PO DAILY 90 Days #90 tab 10/08/20 losartan 100 mg tablet 100 mg PO DAILY #90 tab 10/11/20 pantoprazole 40 mg tablet,delayed 40 mg PO DAILY #90 tab 11/09/20 release methylcellulose (laxative) 500 mg 500 mg PO DAILY #30 tab 12/04/20 tablet (Citrucel) linaclotide 145 mcg capsule 145 mcg PO DAILY #30 cap 01/11/21 (Linzess) sennosides 8.6 mg tablet (Senokot) 8.6 mg PO DAILY #30 tab 01/15/21 furosemide 40 mg tablet 40 mg PO DAILY #90 tab 03/11/21 sucralfate 100 mg/mL oral 10 ml PO BEDTIME #400 ml 03/18/21 suspension wtzldkpeqtuc-bwsmvdeh-kurvls 1 tab PO DAILY #90 tab 03/29/21 tablet (Cerovite Senior) tamsulosin 0.4 mg capsule 0.4 mg PO DAILY 90 Days #90 cap 03/29/21 verapamil 180 mg 24 hr 180 mg PO DAILY #90 cap 03/29/21 capsule,extended release levofloxacin 500 mg tablet 500 mg PO DAILY 10 Days #10 tab 05/27/21 metronidazole 500 mg tablet 500 mg PO TID #30 tab 05/27/21 Allergies Allergy/AdvReac Type Severity Reaction Status Date / Time dabigatran etexilate Allergy Intermediate ITCHING Verified 03/18/21 10:41 [From PRADAXA] JORGE L Inhibitors Allergy Mild UNKNOWN, Verified 03/18/21 10:41 [Jorge L Inhibitors] FOUND IN MEDICAL RECORD 04/[address] GIPSON ezetimibe [From Zetia] Allergy Mild ANAPHYLAXIS Verified 03/18/21 10:41 apixaban [From ELIQUIS] Allergy Unknown UNKNOWN, Verified 03/18/21 10:41 rash rosuvastatin [Crestor] Allergy Unknown myalgia Verified 03/18/21 10:41 Review of Systems Review of Systems: Constitutional : No Weight loss, No Fever, No Chills, No Fatigue, No Malaise ENT/Mouth : No sore throat, No Rhinorrhea Eyes: No Eye Pain, No Swelling, No Redness Cardiovascular : No Chest Pain, No SOB, No Dyspnea on Exertion, No Orthopnea, No Edema, No Palpitations Respiratory : No Cough, No Sputum, No Wheezing Gastrointestinal : No Nausea, No Vomiting, No Diarrhea, No Constipation, No abdominal Pain, No Hematochezia, No Melena Genitourinary : No Dysuria, No Urinary Frequency, No Hematuria, Musculoskeletal : No joint pain, No Myalgias, No Joint Swelling Skin : No Skin Lesions, No rash Neuro : No Weakness, No Numbness, No Dizziness, No Headache Psych : No Anxiety/Panic, No Depression All other systems reviewed and are negative Yes all other systems are reviewed and are negative FORMERLY [facility], 1928–1983 Past Medical History Attestation statement: The following information was validated with the patient. Source: old records reviewed and nursing notes reviewed Medical History Acute respiratory failure with hypoxia Afib Anemia Anxiety and depression ARDS (adult respiratory distress syndrome) BPH (benign prostatic hyperplasia) Cholecystitis Chronic abdominal pain Constipation COPD (chronic obstructive pulmonary disease) COVID-19 virus infection Current use of anticoagulant therapy Diastolic CHF, acute on chronic Diverticulitis Frequency of micturition GERD (gastroesophageal reflux disease) Headache History of CVA (cerebrovascular accident) History of rib fracture Hypercholesterolemia Hypertension Hypertrophic cardiomyopathy Hypogammaglobulinemia Obesity (BMI 30-39.9) Obstructive sleep apnea Paroxysmal atrial fibrillation Peripheral neuropathy Peripheral vascular disease Polyarthralgia Primary osteoarthritis of right knee Protrusion of lumbar intervertebral disc Tear of medial meniscus of knee Urinary incontinence Surgical History H/O colonoscopy History of left knee replacement History of tonsillectomy History of total right hip replacement History of transurethral resection of prostate Family History Family History Father No problems noted. Mother Hx of type 1 diabetes mellitus Social History Social History Household Members: Spouse Housing: House Do you presently have visiting nurse or other home services: No Alcohol intake: never Patient Tobacco Use Status: Never used Tobacco Years Smoked: 30 yrs ago Second Hand Smoke Exposure: No Advance Directives: Yes Advance Directives on File: Yes Advance Directives Date on File: 04/06/20 service: No Current occupational status: unemployed and retired Current occupation: Right Handed Physical Exam Vital Signs: Vital Signs: Last Vital Signs Temp 98.1 F 05/30/21 16:19 Pulse 88 05/30/21 22:37 Resp 14 05/30/21 22:37 BP 160/83 H 05/30/21 22:37 Pulse Ox 99 05/30/21 22:37 BMI result Body Mass Index 37.0 Vital signs stable. Appearance: Alert.? Oriented X3.? No acute distress.? Head: Normocephalic, atraumatic, no step-offs or deformities Eyes: Pupils equal, round and reactive to light.? ENT: Pharynx normal.? Neck: Normal inspection.? Neck supple.? CVS: Normal heart rate and rhythm.? Pulses normal.? No pain with palpation. Respiratory: No respiratory distress.? Breath sounds normal.? Abdomen: Soft and nontender.? Skin: Skin warm and dry.? Normal skin color.? Normal skin turgor.? Extremities: No lower extremity edema.? No calf ttp, Negative Riaz bilaterally. 5/5 strength to bilateral upper and lower extremities Back: No midline tenderness, no C-spine tenderness, full range of motion, no CVA tenderness bilaterally Neuro: Oriented X 3.? No motor deficit.? No sensory deficit. CN 2-12 intact Course Reevaluation(s) Reevaluation #1: Patient tells me that he is no longer having chest pain or discomfort. It is completely subsided. CBC appears to be at patient's baseline. Chemistry with no acute electrolyte abnormalities requiring intervention. BNP 217 unlikely CHF. Patient also not reporting shortness of breath at this time. Initial troponin 15.2nd troponin is 16.6 unlikely ACS no significant changes on EKG. Urine clean. Chest x-ray with no acute findings. It does show coarsened interstitial markings bilaterally similar to previous studies. Patient's blood pressure is noted to be elevated he will get his home dose of carvedilol 25 mg. He is not experiencing vision changes, headache, dizziness. Time: 21:26 Reevaluation #2: Patient's blood pressure improved after giving him his home dose of his blood pressure medication. Again he tells me he is not experiencing chest pain or shortness of breath at this time. Patient feeling much better requesting to go home. I feel comfortable with this I will have him follow-up with Cardiology, and his PCP. Give worrisome signs and symptoms and advised him to return if any of these arise. Time: 22:40 MDM - Chest Pain MDM Narrative Medical decision making narrative: 1555 85 yo m w/ pmhx afib on xerelto, htn, pvd, emmanuel, obesity, first degree av block presents w/ complaints of CP and SOB X2 days. Upon chart reviewed is noted the patient was seen here in the emergency department on 05/27/2021 for left lower abdominal pain found to have diverticulitis. At that time he did not report chest pain. Physical exam benign. Negative Riaz bilaterally. Vital signs stable. Lungs clear. Regular rate and rhythm. Abdomen soft nontender nondistended Based off patient history and physical examination patient on anticoagulation negative Riaz bilaterally unlikely that this is a PE. Pain is not reproducible on likely musculoskeletal. At this time will rule out CHF and ACS. History and physical examination not consistent with aortic dissection. I will also rule out pneumonia. Plan at this time is to obtain basic labs, imaging, troponin, BNP, cardiac monitoring and chest x-ray. Medical Records Data Attestation: I reviewed the patient's medical records. Lab Data Attestation: I reviewed the patient's lab results. Result diagrams: 05/30/21 15:59 05/30/21 15:59 Labs: Lab Results 05/30/21 05/30/21 05/30/21 Range/Units 15:59 15:59 15:59 WBC 8.2 (4.8-10.8) X10*3/uL RBC 3.93 L (4.60-5.80) X10*6/uL Hgb 11.9 L (14.0-18.0) g/dl Hct 36.0 L (42.0-52.0) % MCV 91.6 (80.0-98.0) fL MCH 30.3 (27.0-33.0) pg MCHC 33.1 (31.0-36.0) g/dl RDW 13.1 (11.0-16.0) % Plt Count 179 (160-400) X10*3/uL MPV 9.7 (9.4-12.4) fL Immature Gran % (Auto) 0.2 (0.0-0.4) % Neut % (Auto) 63.6 (45-73) % Lymph % (Auto) 27.1 (20-40) % Caldwell % (Auto) 7.6 (2-11) % Eos % (Auto) 1.1 (0-4) % Baso % (Auto) 0.4 (0-2) % Lymph # (Auto) 2.2 (1.2-4.9) X10*3/uL Caldwell # (Auto) 0.6 (0.1-1.2) X10*3/uL Eos # (Auto) 0.1 (0.0-0.4) X10*3/uL Baso # (Auto) 0.0 (0.0-0.2) X10*3/uL Abs Immat Gran (auto) 0.02 (0.00-0.03) X10*3/uL Absolute Neuts (auto) 5.2 (2.0-8.3) x10*3/uL Absolute Nucleated RBC 0.000 (0.0-0.012) X10*3/uL Nucleated RBC % (auto) 0.0 (0.0-0.2) /100WBC Sodium 143 (135-145) mmol/L Potassium 4.4 (3.3-5.1) mmol/L Chloride 109 H (96-108) mmol/L Carbon Dioxide 27 (22-29) mmol/L Anion Gap 11 L (12-20) BUN 17 H (9-16) mg/dL Creatinine 0.97 (0.5-1.4) mg/dL Estim Creat Clear Calc 55.7 Estimated GFR > 60 Random Glucose 101 (60-115) mg/dL Calcium 9.0 (8.4-10.2) mg/dL Total Bilirubin 0.5 (0.0-1.0) mg/dL AST 33 (5-37) U/L ALT 39 (0-40) U/L Alkaline Phosphatase 76 D (39-117) U/L Troponin I High Sens 15.5 (<3.5-35.0) ng/L B-Natriuretic Peptide 217 H (<100) pg/mL Total Protein 5.6 L (6.5-8.0) g/dL Albumin 3.6 (3.5-5.0) g/dL 05/30/21 Range/Units 19:57 WBC (4.8-10.8) X10*3/uL RBC (4.60-5.80) X10*6/uL Hgb (14.0-18.0) g/dl Hct (42.0-52.0) % MCV (80.0-98.0) fL MCH (27.0-33.0) pg MCHC (31.0-36.0) g/dl RDW (11.0-16.0) % Plt Count (160-400) X10*3/uL MPV (9.4-12.4) fL Immature Gran % (Auto) (0.0-0.4) % Neut % (Auto) (45-73) % Lymph % (Auto) (20-40) % Caldwell % (Auto) (2-11) % Eos % (Auto) (0-4) % Baso % (Auto) (0-2) % Lymph # (Auto) (1.2-4.9) X10*3/uL Caldwell # (Auto) (0.1-1.2) X10*3/uL Eos # (Auto) (0.0-0.4) X10*3/uL Baso # (Auto) (0.0-0.2) X10*3/uL Abs Immat Gran (auto) (0.00-0.03) X10*3/uL Absolute Neuts (auto) (2.0-8.3) x10*3/uL Absolute Nucleated RBC (0.0-0.012) X10*3/uL Nucleated RBC % (auto) (0.0-0.2) /100WBC Sodium (135-145) mmol/L Potassium (3.3-5.1) mmol/L Chloride (96-108) mmol/L Carbon Dioxide (22-29) mmol/L Anion Gap (12-20) BUN (9-16) mg/dL Creatinine (0.5-1.4) mg/dL Estim Creat Clear Calc Estimated GFR Random Glucose (60-115) mg/dL Calcium (8.4-10.2) mg/dL Total Bilirubin (0.0-1.0) mg/dL AST (5-37) U/L ALT (0-40) U/L Alkaline Phosphatase (39-117) U/L Troponin I High Sens 16.6 (<3.5-35.0) ng/L B-Natriuretic Peptide (<100) pg/mL Total Protein (6.5-8.0) g/dL Albumin (3.5-5.0) g/dL Critical Care Time Critical Care Time Critical Care Time: No Discharge Plan Discharge Clinical Impression: Chest pain not due to acute coronary syndrome Patient Disposition: Home, Self-Care Instructions: Chest Pain (ED) Additional Instructions: Take your medications as prescribed. If you were prescribed antibiotics today, it is important that you take your medication to their entirety, do not skip any doses, do not finish them early. Follow-up with your primary care provider this week. Please follow-up with Cardiology within a week. Return to the emergency department with new or worsening symptoms. Such as fevers, chills, chest pain, shortness of breath, nausea, vomiting, dizziness, headache, vision changes, lethargy , weakness, changes in speech, back pain In case of emergency call 911 Prescriptions: No Action Breo Ellipta 200-25 mcg/dose blister with device 1 ea inhalation DAILY Qty: 60 2RF ascorbate calcium (vitamin C) 500 mg tablet 500 mg PO DAILY 90 Days Qty: 90 3RF ferrous sulfate 325 mg (65 mg iron) tablet,delayed release (DR/EC) 325 mg PO DAILY 90 Days Qty: 90 3RF cyanocobalamin (vitamin B-12) 1,000 mcg capsule 1,000 mcg PO BEDTIME 90 Days Qty: 90 3RF Xarelto 15 mg tablet 15 mg PO DAILY 90 Days Qty: 90 3RF Rx Instructions: must administer with evening meal losartan 100 mg tablet 100 mg PO DAILY Qty: 90 2RF pantoprazole 40 mg tablet,delayed release (DR/EC) 40 mg PO DAILY Qty: 90 3RF sennosides [Senokot] 8.6 mg tablet 8.6 mg PO DAILY Qty: 30 6RF furosemide 40 mg tablet 40 mg PO DAILY Qty: 90 1RF tamsulosin 0.4 mg capsule 0.4 mg PO DAILY 90 Days Qty: 90 3RF verapamil 180 mg capsule,ext rel. pellets 24 hr 180 mg PO DAILY Qty: 90 3RF Cerovite Senior Tablet 1 tab PO DAILY Qty: 90 3RF atorvastatin 80 mg tablet 80 mg PO BEDTIME 0RF carvedilol 12.5 mg tablet 12.5 mg PO BID 0RF levofloxacin 500 mg tablet 500 mg PO DAILY 10 Days Qty: 10 0RF metronidazole 500 mg tablet 500 mg PO TID Qty: 30 0RF carvedilol 25 mg tablet 25 mg PO BID 0RF Citrucel 500 mg tablet 500 mg PO DAILY Qty: 30 2RF Rx Instructions: take it with full glass of water simethicone [Gas Relief (simethicone)] 125 mg capsule 125 mg PO TID-QID PRN (Reason: abdominal distention) Qty: 120 2RF sucralfate 100 mg/mL suspension 10 ml PO BEDTIME Qty: 400 3RF Linzess 145 mcg capsule 145 mcg PO DAILY Qty: 30 2RF Referrals: Arti Catalan, [employer]IVER [Primary Care Provider] -
[2021-05-30 16:07] LABS: MANUAL DIFF FLAG NO
[2021-05-30 16:10] LABS: Basophils Percent Auto 0.4 % (0-2); Eosinophils Absolute Auto 0.1 X10*3/uL (0.0-0.4); Eosinophils Percent Auto 1.1 % (0-4); Hemoglobin 11.9 g/dl (14.0-18.0); Imm Gran Abs Auto 0.02 X10*3/uL (0.00-0.03); Imm Gran Pct Auto 0.2 % (0.0-0.4); Lymphocytes Absolute Auto 2.2 X10*3/uL (1.2-4.9); Lymphocytes Percent Auto 27.1 % (20-40); Mean Corpuscular HGB Conc 33.1 g/dl (31.0-36.0); Mean Corpuscular Hemoglobin 30.3 pg (27.0-33.0); Mean Corpuscular Volume 91.6 fL (80.0-98.0); Mean Platelet Volume 9.7 fL (9.4-12.4); Monocytes Absolute Auto 0.6 X10*3/uL (0.1-1.2); Monocytes Percent Auto 7.6 % (2-11); Neutrophils Absolute Auto 5.2 x10*3/uL (2.0-8.3); Neutrophils Percent Auto 63.6 % (45-73); Platelet Count 179 X10*3/uL (160-400); Red Blood Count 3.93 X10*6/uL (4.60-5.80); Red Cell Distribution Width 13.1 % (11.0-16.0); White Blood Count 8.2 X10*3/uL (4.8-10.8)
[2021-05-30 16:19] VITALS: BP 188/83; PULSE 72; RESP 11; TEMP 36.7; O2SAT 97
[2021-05-30 16:29] LABS: B Type Natriuretic Peptide 217 pg/mL (<100); Troponin-I High Sensitivity 15.5 ng/L (<3.5-35.0)
[2021-05-30 16:32] LABS: Alanine Aminotransferase 39 U/L (0-40); Albumin Level 3.6 g/dL (3.5-5.0); Alkaline Phosphatase 76 U/L (39-117); Anion Gap 11 (12-20); Aspartate Amino Transferase 33 U/L (5-37); Bilirubin Total 0.5 mg/dL (0.0-1.0); Blood Urea Nitrogen 17 mg/dL (9-16); Carbon Dioxide 27 mmol/L (22-29); Chloride 109 mmol/L (96-108); Creatinine Clr Calc Pharmacy 55.7; Estimated Glomerular Filt Rate > 60; Glucose Random 101 mg/dL (60-115); Potassium 4.4 mmol/L (3.3-5.1); Sodium 143 mmol/L (135-145); Total Protein 5.6 g/dL (6.5-8.0)
[2021-05-30 20:13] VITALS: BP 184/92; PULSE 80; RESP 14; O2SAT 98
[2021-05-30 20:25] LABS: Troponin-I High Sensitivity 16.6 ng/L (<3.5-35.0)
[2021-05-30 22:37] VITALS: BP 160/83; PULSE 88; RESP 14; O2SAT 99
--- NOTE | 2021-05-30 23:04 | PC.NURSE ---
Patient did not want any medication, currently waiting for ride home, pleasant
== END 2021-05-31 00:59 | disposition home or self-care (01) ==
PROVIDERS: Physician Assistant; Emergency Provider Internal Medicine; PCP Registered Nurse
DX: R07.89 Other chest pain (principal); R06.02 Shortness of breath; I11.0 Hypertensive heart disease with heart failure; I50.33 Acute on chronic diastolic (congestive) heart failure; E78.00 Pure hypercholesterolemia, unspecified; I48.0 Paroxysmal atrial fibrillation; Z79.01 Long term (current) use of anticoagulants; Z79.899 Other long term (current) drug therapy
CPT/HCPCS: 36415; 71046; 80053; 83880; 84484; 85025; 93005; 99284; 99285

== ENCOUNTER → 2021-06-24 12:57 | Outpatient (BNVA) | payer OTHER, SELFPAY | PROVIDERS: PCP Registered Nurse; Visit Provider Nurse Practitioner Family | DX: D32.9 Benign neoplasm of meninges, unspecified (principal); R51.9 Headache, unspecified | CPT/HCPCS: 99202 ==

== ENCOUNTER → 2021-07-15 09:56 | Outpatient (BNVA) | payer MEDICARE, SELFPAY | PROVIDERS: PCP Registered Nurse; Visit Provider Nurse Practitioner Family | DX: K21.9 Gastro-esophageal reflux disease without esophagitis (principal); K59.04 Chronic idiopathic constipation | CPT/HCPCS: 99212 ==

== ENCOUNTER 2021-07-16 13:07 | Outpatient (REF) | payer OTHER, SELFPAY ==
--- NOTE | ~2021-07-16 | MR_ITS ---
EXAMINATION: MR BRAIN WITHOUT AND WITH CONTRAST CLINICAL INFORMATION: Meningioma. COMPARISON: CT head from 12/08/2020. Brain MRI from 07/11/2020. TECHNIQUE: MRI of the brain was obtained using routine sequences without and following the administration of 9 mL of Gadavist intravenous contrast. FINDINGS: No focal restricted diffusion is demonstrated to suggest acute or subacute cerebral ischemia. No evidence of acute or chronic hemorrhagic products on heme-sensitive imaging. Scattered periventricular, deep white matter, and brainstem T2 FLAIR hyperintensities consistent with mild to moderate underlying microangiopathy. Proportional prominence of the ventricles and sulcal spaces without evidence of obstructive hydrocephalus. No midline shift. Stable appearance of 0.3 cm deep extra-axial enhancing soft tissue thickness along the cribriform plate suggestive of a tiny meningioma. No abnormal mass effect. No additional abnormal intracranial enhancement. Normal appearance of the pituitary gland. Normal positioning of the cerebellar tonsils. Normal arterial and venous vascular flow voids are present. No abnormal contrast enhancement. Normal, homogeneous marrow signal. Moderate to advanced degenerative spondyloarthropathy of the visualized upper cervical spine. Mild mucosal thickening of the paranasal sinuses. No signal abnormalities within the mastoids. MR/MR head/brain wo/w con IMPRESSION: 1. Stable appearance of a 0.3 cm region of extra-axial soft tissue enhancement along the cribriform plate suggestive of a tiny meningioma. 2. No acute intracranial abnormalities. No additional abnormal intracranial enhancement. 3. Mild to moderate underlying microangiopathy and generalized cerebral volume loss.
== END 2021-07-16 13:08 | disposition home or self-care (01) ==
LOC: HO.MRI 13:07
PROVIDERS: Visit Provider Nurse Practitioner Family
DX: D32.9 Benign neoplasm of meninges, unspecified (principal)
CPT/HCPCS: 70553; A9585

== ENCOUNTER 2021-07-19 11:44 | Emergency (ER) | payer OTHER, SELFPAY ==
--- NOTE | ~2021-07-19 | CT_ITS ---
EXAMINATION: CT HEAD WITHOUT CONTRAST CLINICAL INFORMATION: Fall. Patient on blood thinning medicine. COMPARISON: Previous head CT most recent November 2020 and brain MRI 07/16/2020 TECHNIQUE: Contiguous axial imaging was performed from the skull base to vertex without intravenous administration of contrast. This CT examination was performed using dose optimization techniques as appropriate, variously including the following: *Automated exposure control *Adjustment of mA and/or kV according to patient size (this includes techniques or standardized protocols for targeted exams where dose is matched to indication/reason for exam; i.e. extremities or head) *Use of iterative reconstruction technique DLP: 778 mGy-cm FINDINGS: There is no evidence of acute intracranial hemorrhage or territorial infarction. No abnormal mass effect or midline shift is seen. Nunez to white matter differentiation is well preserved. No extra-axial fluid collections are identified. The ventricles are normal in size. There is no abnormal attenuation within the brain parenchyma. The osseous structures and soft tissues are normal. The mastoid air cells and visualized portions of the paranasal sinuses are well aerated. CT/CT head/brain wo con IMPRESSION: Unremarkable exam.
--- NOTE | ~2021-07-19 | XR_ITS ---
EXAMINATION: XR SHOULDER, RIGHT CLINICAL INFORMATION: Fall. Pain. COMPARISON: None TECHNIQUE: 2 views of the right shoulder. FINDINGS: There is evidence of an old healed fracture of the right proximal humerus. There is an acute oblique minimally displaced fracture of the right proximal humeral shaft. There is severe arthritis at the glenohumeral and acromioclavicular joints. There are periarticular soft tissue ossifications suggestive of ossified loose bodies. XR/XR shoulder RT min 2V IMPRESSION: Acute minimally displaced fracture of the proximal shaft of humerus. Old fracture of the right proximal humerus and severe arthritis.
--- NOTE | ~2021-07-19 | XR_ITS ---
EXAMINATION: XR KNEE, RIGHT CLINICAL INFORMATION: Fall. Pain. COMPARISON: Previous x-ray June 2019 TECHNIQUE: Four views of the right knee. FINDINGS: Bone alignment is normal. No fracture or dislocation is seen. There is arthritis at the femoral tibial and patellofemoral joints. There is no joint effusion. There is soft tissue arterial calcification. XR/XR knee RT 4V IMPRESSION: Arthritis. No fracture or dislocation.
[2021-07-19 12:21] VITALS: BP 166/78; PULSE 64; O2SAT 98
[2021-07-19 12:36] VITALS: BP 173/86; PULSE 55; RESP 16; TEMP 35.8; O2SAT 100; BMI 36.2
[2021-07-19] MEDS: Acetaminophen 325 MG TABLET 650 MG PO (12:45)
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
--- NOTE | 2021-07-19 15:05 | PC.NURSE ---
PT WALKED TO BATHROOM STEADY SLOW GAIT, MOVING ALL EXTREMITIES, PT RANG JUAREZ FOR HELP BACK TO ROOM.
== END 2021-07-19 15:27 | disposition home or self-care (01) ==
LOC: HO.ED 15:21
PROVIDERS: Emergency Provider Emergency Medicine
DX: S42.331A Displaced oblique fracture of shaft of humerus, right arm, initial encounter for closed fracture (principal); S80.01XA Contusion of right knee, initial encounter; V00.831A Fall from motorized mobility scooter, initial encounter; I10 Essential (primary) hypertension; I48.91 Unspecified atrial fibrillation; E78.00 Pure hypercholesterolemia, unspecified; Z79.01 Long term (current) use of anticoagulants; Z79.02 Long term (current) use of antithrombotics/antiplatelets; Z79.899 Other long term (current) drug therapy; Y93.89 Activity, other specified; Y92.480 Sidewalk as the place of occurrence of the external cause; Y99.9 Unspecified external cause status
CPT/HCPCS: 70450; 73030; 73564; 99283; 99284

== ENCOUNTER → 2021-07-23 14:03 | Outpatient (BNVA) | payer OTHER, SELFPAY | PROVIDERS: Visit Provider Anesthesiology | DX: G44.209 Tension-type headache, unspecified, not intractable (principal); D32.9 Benign neoplasm of meninges, unspecified | CPT/HCPCS: Q3014 ==

== ENCOUNTER 2021-07-26 07:15 | Outpatient (REF) | payer OTHER, SELFPAY ==
--- NOTE | ~2021-07-26 | XR_ITS ---
EXAMINATION: XR SHOULDER, RIGHT CLINICAL INFORMATION: Pain COMPARISON: 07/19/2021 TECHNIQUE: Two views of the right shoulder. FINDINGS: There is chronic destructive appearance of the right humeral head. Flattening of the humeral head with abutment to the glenoid. Corticated intra-articular bodies remain present. The fracture of the right humeral neck is again noted, similar in appearance to prior. No dislocation. The acromioclavicular joint is intact with hypertrophic change. XR/XR shoulder RT min 2V IMPRESSION: Chronic changes of the right glenohumeral joint. Unchanged appearance of the right humeral neck fracture.
== END 2021-07-26 07:16 | disposition home or self-care (01) ==
LOC: HO.HOSX 07:15
PROVIDERS: Visit Provider Physician Assistant
DX: M25.511 Pain in right shoulder (principal); S42.201A Unspecified fracture of upper end of right humerus, initial encounter for closed fracture; V00.141A Fall from scooter (nonmotorized), initial encounter; Y93.I9 Activity, other involving external motion; Y92.512 Supermarket, store or market as the place of occurrence of the external cause; Y99.8 Other external cause status
CPT/HCPCS: 73030; 99202

== ENCOUNTER 2021-08-23 08:15 | Outpatient (REF) | payer OTHER, SELFPAY ==
--- NOTE | ~2021-08-23 | XR_ITS ---
EXAMINATION: XR SHOULDER, RIGHT CLINICAL INFORMATION: Proximal humeral fracture. Follow-up. COMPARISON: Radiographs right shoulder is imaged 322, 07/19/2021, 12/27/2012; chest radiograph 01/08/2021. TECHNIQUE: Right shoulder is imaged in 2 views. FINDINGS: There is again a recent fracture proximal humerus superimposed upon chronic posttraumatic deformity and glenohumeral arthropathy. Given mild variation in positioning, there is no significant change in alignment. There is likely some callus formation. There is mottled mineralization likely osteoporosis. Pathologic fracture would be difficult to exclude. There are degenerative changes acromioclavicular joint. No acromioclavicular separation. XR/XR shoulder RT min 2V IMPRESSION: -Proximal humeral fracture superimposed upon chronic post obstructive deformity and chronic glenohumeral arthropathy. No significant change in alignment.
== END 2021-08-23 08:16 | disposition home or self-care (01) ==
LOC: HO.HOSX 08:15
PROVIDERS: Visit Provider Physician Assistant
DX: S42.201A Unspecified fracture of upper end of right humerus, initial encounter for closed fracture (principal)
CPT/HCPCS: 73030; 99212

== ENCOUNTER 2021-09-03 14:45 | Emergency (ER) | payer OTHER, SELFPAY ==
--- NOTE | ~2021-09-03 | CT_ITS ---
EXAMINATION: CT HEAD WITHOUT CONTRAST CLINICAL INFORMATION: Headache. COMPARISON: CT head 07/19/2021 TECHNIQUE: Contiguous axial imaging was performed from the skull base to vertex without intravenous administration of contrast. Coronal and sagittal reformatted images are performed at CT scanner This CT examination was performed using dose optimization techniques as appropriate, variously including the following: *Automated exposure control *Adjustment of mA and/or kV according to patient size (this includes techniques or standardized protocols for targeted exams where dose is matched to indication/reason for exam; i.e. extremities or head) *Use of iterative reconstruction technique DLP: 782 mGy-cm FINDINGS: There is no evidence of acute intracranial hemorrhage or territorial infarction. No abnormal mass effect or midline shift is seen. Nunez to white matter differentiation is well preserved. No extra-axial fluid collections are identified. The ventricles are normal in size. There is no abnormal attenuation within the brain parenchyma. The osseous structures and soft tissues are normal. The mastoid air cells and visualized portions of the paranasal sinuses are well aerated. CT/CT head/brain wo con IMPRESSION: No acute intracranial pathology.
[2021-09-03 14:56] VITALS: BP 158/76; BP 172/56; PULSE 62; PULSE 70; RESP 18; TEMP 36.9; O2SAT 97; O2SAT 99; BMI 36.2
--- NOTE | 2021-09-03 15:57 | ED_ITS ---
HPI - General Adult General Chief complaint: General Medical <LE Macias Last Filed: 09/03/21 17:45> Stated complaint: Dizziness,headache <LE Macias Last Filed: 09/03/21 17:45> Time Seen by Provider: 09/03/21 15:57 <LE Macias Last Filed: 09/03/21 17:45> Source: patient <LE Macias Last Filed: 09/03/21 17:45> Mode of arrival: ambulatory <LE Macias Last Filed: 09/03/21 17:45> Limitations: no limitations <LE Macias Last Filed: 09/03/21 17:45> History of Present Illness HPI narrative: Patient is an 85 year old male presenting to the emergency department today with a headache and a low potassium. Patient states that he has been having a headache for 3 days that came on all of a sudden. Patient states that he takes Xarelto for atrial fibrillation. Patient states that his doctor got lab work done on him and he was told that he has a decreased potassium. Patient denies any dizziness, lightheadedness, abdominal pain, nausea, vomiting, fever, chills, blurry vision, double vision, loss of vision, chest pain, difficulty breathing, shortness of breath, back pain, night sweats, pain with urination, increased urinary frequency, increased urinary urgency, blood in his urine or stool, syncope or a near syncopal episode, recent trauma or falls, bowel incontinence, bladder incontinence, bowel retention, bladder retention, or any other complaints at this time. <LE Macias Last Filed: 09/03/21 17:45> Onset (ago): day(s) (3) <LE Macias Last Filed: 09/03/21 17:45> Location: head <LE Macias Last Filed: 09/03/21 17:45> Radiation: non-radiation <LE Macias Last Filed: 09/03/21 17:45> Severity: mild <LE Macias Last Filed: 09/03/21 17:45> Severity scale (1-10): 1 <LE Macias Last Filed: 09/03/21 17:45> Quality: dull <LE Macias - Last Filed: 09/03/21 17:45> Pain Consistency: constant <LE Macias - Last Filed: 09/03/21 17:45> Relieving factors: none <LE Macias - Last Filed: 09/03/21 17:45> Exacerbating factors: none <LE Macias - Last Filed: 09/03/21 17:45> Associated symptoms: denies other symptoms <LE Macias - Last Filed: 09/03/21 17:45> Treatments prior to arrival: none <LE Macias - Last Filed: 09/03/21 17:45> Related Data Home medications: Home Medications Medication Instructions Recorded Confirmed atorvastatin 80 mg tablet 80 mg PO BEDTIME 06/03/20 10/04/20 carvedilol 12.5 mg tablet 12.5 mg PO BID 06/03/20 10/04/20 carvedilol 25 mg tablet 25 mg PO BID 12/04/20 Previous Rx's Medication Instructions Recorded fluticasone furoate 200 1 ea inhalation DAILY #60 ea 07/05/20 mcg-vilanterol 25 mcg/dose inhalation powder (Breo Ellipta) simethicone 125 mg capsule (Gas 125 mg PO TID-QID PRN abdominal 07/30/20 Relief (simethicone)) distention #120 caps ascorbate calcium (vitamin C) 500 500 mg PO DAILY 90 days #90 tabs 08/17/20 mg tablet cyanocobalamin (vitamin B-12) 1,000 mcg PO BEDTIME 90 days #90 09/13/20 1,000 mcg capsule caps ferrous sulfate 325 mg (65 mg 325 mg PO DAILY 90 days #90 tabs 09/13/20 iron) tablet,delayed release pantoprazole 40 mg tablet,delayed 40 mg PO DAILY #90 tabs 11/09/20 release methylcellulose (laxative) 500 mg 500 mg PO DAILY #30 tabs 12/04/20 tablet (Citrucel) furosemide 40 mg tablet 40 mg PO DAILY #90 tabs 03/11/21 tamsulosin 0.4 mg capsule 0.4 mg PO DAILY 90 days #90 caps 03/29/21 verapamil 180 mg 24 hr 180 mg PO DAILY #90 caps 03/29/21 capsule,extended release levofloxacin 500 mg tablet 500 mg PO DAILY 10 days #10 tabs 05/27/21 metronidazole 500 mg tablet 500 mg PO TID #30 tabs 05/27/21 losartan 100 mg tablet 100 mg PO DAILY #90 tabs 07/02/21 sucralfate 100 mg/mL oral 10 ml PO BEDTIME #400 mL 07/11/21 suspension linaclotide 145 mcg capsule 145 mcg PO DAILY #90 caps 07/15/21 (Linzess) sennosides 8.6 mg tablet (Senokot) 8.6 mg PO DAILY #30 tabs 07/19/21 tramadol 50 mg tablet 50 mg PO TID PRN pain (scale score 08/05/21 4-6) 7 days #21 tabs rivaroxaban 20 mg tablet (Xarelto) 20 mg PO DAILY #90 tabs 08/16/21 <LE Macias Last Filed: 09/03/21 17:45> Allergies/adverse reactions: Allergies Allergy/AdvReac Type Severity Reaction Status Date / Time dabigatran etexilate Allergy Intermediate ITCHING Verified 08/23/21 12:34 [From PRADAXA] JORGE L Inhibitors Allergy Mild UNKNOWN, Verified 08/23/21 12:34 [Jorge L Inhibitors] FOUND IN MEDICAL RECORD 04/[address] GIPSON ezetimibe [From Zetia] Allergy Mild ANAPHYLAXIS Verified 08/23/21 12:34 apixaban [From ELIQUIS] Allergy Unknown UNKNOWN, Verified 08/23/21 12:34 rash rosuvastatin [Crestor] Allergy Unknown myalgia Verified 08/23/21 12:34 <LE Macias Last Filed: 09/03/21 17:45> Review of Systems 2 Constitutional: Constitutional: Reports no additional constitutional complaints, Denies chills, Denies fever(s), Reports headache(s) and Denies night sweats <LE Macias Last Filed: 09/03/21 17:45> Eyes: Eyes: Reports no additional eye complaints, Denies blurry vision, Denies change in vision, Denies diplopia, Denies eye discharge, Denies loss of vision and Denies eye pain <LE Macias Last Filed: 09/03/21 17:45> ENT: Denies dizziness and Reports headache(s) <LE Macias Last Filed: 09/03/21 17:45> Cardiovascular: Cardiovascular: Reports no additional cardiovascular complaints, Denies chest pain, Denies lightheadedness, Denies Loss of Consciousness and Denies dyspnea <LE Macias - Last Filed: 09/03/21 17:45> Respiratory: Respiratory: Reports no additional respiratory complaints and Denies dyspnea <LE Macias - Last Filed: 09/03/21 17:45> Gastrointestinal: Gastrointestinal: Reports no additional gastrointestinal complaints, Denies abdominal pain, Denies melena, Denies hematochezia, Denies change in bowel habits and Denies change in stool character <LE Macias - Last Filed: 09/03/21 17:45> Genitourinary: Genitourinary: Reports no additional male genitourinary complaints, Denies hematuria, Denies oliguria, Denies difficulty urinating, Denies dysuria, Denies urinary frequency, Denies urinary hesitancy, Denies urinary incontinence and Denies urinary urgency <LE Macias Last Filed: 09/03/21 17:45> Musculoskeletal: Musculoskeletal: Reports no additional musculoskeletal complaints, Denies numbness and Denies tingling <LE Macias Last Filed: 09/03/21 17:45> Neurologic: Denies dizziness, Reports headache(s), Denies loss of vision, Denies numbness and Denies tingling <LE Macias Last Filed: 09/03/21 17:45> Psychiatric: Psychiatric: Reports no additional psychiatric complaints <LE Macias Last Filed: 09/03/21 17:45> Endocrine: Endocrine: Reports no additional endocrine complaints <LE Macias Last Filed: 09/03/21 17:45> Hematologic/Lymphatic: Hematologic/Lymphatic: Reports no additional hematologic/lymphatic complaints <LE Macias Last Filed: 09/03/21 17:45> Allergic/Immunologic: Allergic/Immunologic: Reports no additional allergic/immunologic complaints <LE Macias Last Filed: 09/03/21 17:45> PMFSH Past Medical History Attestation statement: The following information was validated with the patient. <LE Finch - Last Filed: 09/03/21 17:45> Source: old records reviewed <LE Macias - Last Filed: 09/03/21 17:45> Medical History: Medical History Acute respiratory failure with hypoxia Afib Anemia Anxiety and depression ARDS (adult respiratory distress syndrome) BPH (benign prostatic hyperplasia) Cholecystitis Chronic abdominal pain Constipation COPD (chronic obstructive pulmonary disease) COVID-19 virus infection Current use of anticoagulant therapy Diastolic CHF, acute on chronic Diverticulitis Frequency of micturition GERD (gastroesophageal reflux disease) Headache History of CVA (cerebrovascular accident) History of rib fracture Hypercholesterolemia Hypertension Hypertrophic cardiomyopathy Hypogammaglobulinemia Meningioma Obesity (BMI 30-39.9) Obstructive sleep apnea Paroxysmal atrial fibrillation Peripheral neuropathy Peripheral vascular disease Polyarthralgia Primary osteoarthritis of right knee Protrusion of lumbar intervertebral disc Tear of medial meniscus of knee Urinary incontinence <LE Macias - Last Filed: 09/03/21 17:45> Surgical History: Surgical History H/O colonoscopy History of left knee replacement History of tonsillectomy History of total right hip replacement History of transurethral resection of prostate <LE Macias - Last Filed: 09/03/21 17:45> Family History Family History: Family History Father No problems noted. Mother Hx of type 1 diabetes mellitus <LE Macias - Last Filed: 09/03/21 17:45> Social History Social History: Social History Household Members: Spouse Housing: House Do you presently have visiting nurse or other home services: No Alcohol intake: never Patient Tobacco Use Status: Former Tobacco user Years Smoked: 30 yrs ago Second Hand Smoke Exposure: No Use of substances other than those prescribed or required for medical reasons: No Advance Directives: Yes Advance Directives on File: Yes Advance Directives Date on File: 04/06/20 service: No Current occupational status: unemployed and retired Current occupation: Right Handed <LE Macias - Last Filed: 09/03/21 17:45> Physical Exam ED Vital Signs: Vital Signs - 24 hr 09/03/21 14:56 09/03/21 16:29 09/03/21 18:10 Temperature 98.4 F Pulse Rate 62 64 64 Respiratory Rate 18 20 18 Blood Pressure 172/56 H 183/74 H Pulse Oximetry 97 99 Oxygen Delivery Method Room Air Room Air BMI result Body Mass Index 36.2 <LE Macias - Last Filed: 09/03/21 17:45> Vital Signs - 24 hr 09/03/21 14:56 09/03/21 16:29 09/03/21 18:10 Temperature 98.4 F Pulse Rate 62 64 64 Respiratory Rate 18 20 18 Blood Pressure 172/56 H 183/74 H Pulse Oximetry 97 99 Oxygen Delivery Method Room Air Room Air BMI result Body Mass Index 36.2 <LE Vu Last Filed: 09/03/21 23:59> Const General: cooperative, no acute distress, alert and awake <LE Macias - Last Filed: 09/03/21 17:45> Nutritional Appearance: well nourished <LE Macias Last Filed: 09/03/21 17:45> Orientation/consciousness: patient oriented x3 <LE Macias Last Filed: 09/03/21 17:45> Limitations: no limitations <LE Macias Last Filed: 09/03/21 17:45> HENMT Head: Yes normal to inspection and Yes atraumatic <LE Macias Last Filed: 09/03/21 17:45> Ears: hearing grossly normal bilaterally and external ears normal <LE Macias - Last Filed: 09/03/21 17:45> General nose exam: Normal external nose present, no nasal discharge noted and no epistaxis <LE Macias Last Filed: 09/03/21 17:45> Face and sinus: Yes normal facial exam, No abrasion and No laceration <LE Macias Last Filed: 09/03/21 17:45> Mouth: Normal oral and palatal mucosa present, no drooling and no muffled voice <LE Macias - Last Filed: 09/03/21 17:45> Eyes General: appearance normal, both eyes and all related structures <Elvia Gonzalez PA - Last Filed: 09/03/21 17:45> Periorbital: periorbital findings normal <Elvia Gonzalez PA - Last Filed: 09/03/21 17:45> Eyelids: Yes eyelids normal <Elvia Gonzalez PA - Last Filed: 09/03/21 17:45> Conjunctivae: conjunctivae normal <Elvia Gonzalez PA - Last Filed: 09/03/21 17:45> Pupils: Equal, round and reactive pupils present <Elvia Gonzalez PA - Last Filed: 09/03/21 17:45> EOM: EOMs intact bilaterally <Elvia Gonzalez PA - Last Filed: 09/03/21 17:45> Neck Neck: Yes normal visual inspection, Yes full ROM and Yes no lymphadenopathy < Elvia Gonzalez PA - Last Filed: 09/03/21 17:45> Chest Chest palpation & inspection: normal inspection of the chest <Elvia Gonzalez PA - Last Filed: 09/03/21 17:45> Resp Effort & Inspection: normal respiratory effort and able to speak in complete sentences <Elvia Gonzalez PA - Last Filed: 09/03/21 17:45> Auscultation: clear to auscultation bilaterally <Elvia Gonzalez PA - Last Filed: 09/03/21 17:45> Cardio Rate: regular rate <Elvia Gonzalez PA - Last Filed: 09/03/21 17:45> Rhythm: regular rhythm <Elvia Gonzalez PA - Last Filed: 09/03/21 17:45> GI Inspection: Yes normal to inspection <Elvia Gonzalez PA - Last Filed: 09/03/21 17:45> Neuro General: patient oriented x3 and moves all extremities <Elvia Gonzalez PA - Last Filed: 09/03/21 17:45> Cranial nerves: Yes Equal, round and reactive pupils present <Elvia Gonzalez PA - Last Filed: 09/03/21 17:45> Cognition (Neuro): normal cognition <Elvia Gonzalez PA - Last Filed: 09/03/21 17:45> Motor exam (neuro): 5/5 motor strength present throughout <Elvia De La PazLE abdul - Last Filed: 09/03/21 17:45> Sensory Exam: Normal double simultaneous stimulation for sensation <Elvia GonzalezLE - Last Filed: 09/03/21 17:45> Coordination: [id number] test normal <Elvia GonzalezLE - Last Filed: 09/03/21 17:45> Extrem General: Yes normal to inspection, Yes full ROM and Yes capillary refill normal <Elvia De La PazLE abdul - Last Filed: 09/03/21 17:45> Psych Appearance: grossly normal <Elvia GonzalezLE - Last Filed: 09/03/21 17:45> Mental Status: mental status grossly normal <Elvia De La PazLE abdul - Last Filed: 09/03/21 17:45> Affect: normal affect <Elvia De La PazLE abdul - Last Filed: 09/03/21 17:45> Attitude: cooperative <Elvia De La PazLE abdul - Last Filed: 09/03/21 17:45> Thought process: Normal thought process present <Elvia De La PazLE abdul - Last Filed: 09/03/21 17:45> Thought content: Normal thought content present <Elvia De La PazLE abdul - Last Filed: 09/03/21 17:45> Insight: Good insight present (Psych) <Elvia De La PazLE abdul - Last Filed: 09/03/21 17:45> Course Reevaluation(s) Reevaluation #1: patient alert oriented x3. Negative for any neuro deficits. CT scan is normal. Labs are normal. Second troponin is negative. Patient discharged from active follow-up with primary care provider. negative for any temporal tenderness to indicate temporal arthritis. Negative for neck stiffness, photophobia, or fever to indicate meningitis. Not suspecting stroke. No brain bleed. <LE Vu - Last Filed: 09/03/21 23:59> Time: 21:55 <LE Vu - Last Filed: 09/03/21 23:59> Medical Decision Making MDM Narrative Medical decision making narrative: Patient is an 85 year old male presenting to the emergency department today with a headache. Patient's physical exam was unremarkable. Patient's blood work was unremarkable. Patient's head CT is pending. I explained my physical exam findings as well as all test results to the patient. I answered all questions asked by the patient. Patient disposition is awaiting CT results. Sign out given to NIYAH Kam <LE Macias - Last Filed: 09/03/21 17:45> Differential Diagnosis Differential Diagnosis: hypokalemia, headache <LE Macias - Last Filed: 09/03/21 17:45> Medical Records Medical records reviewed: Yes I reviewed the patient's medical records. <LE Macias - Last Filed: 09/03/21 17:45> Lab Data Lab results reviewed: Yes I reviewed the patient's lab results. <LE Macias - Last Filed: 09/03/21 17:45> Result diagrams: : 09/03/21 16:27 09/03/21 17:01 <LE Macias - Last Filed: 09/03/21 17:45> Labs: Lab Results 09/03/21 09/03/21 09/03/21 Range/Units 16:27 16:27 16:27 WBC 8.7 (4.8-10.8) X10*3/uL RBC 3.79 L (4.60-5.80) X10*6/uL Hgb 11.2 L (14.0-18.0) g/dl Hct 34.2 L (42.0-52.0) % MCV 90.2 (80.0-98.0) fL MCH 29.6 (27.0-33.0) pg MCHC 32.7 (31.0-36.0) g/dl RDW 13.9 (11.0-16.0) % Plt Count 194 (160-400) X10*3/uL MPV 10.2 (9.4-12.4) fL Immature Gran % (Auto) 0.3 (0.0-0.4) % Neut % (Auto) 67.3 (45-73) % Lymph % (Auto) 24.2 (20-40) % Mcmullen % (Auto) 6.7 (2-11) % Eos % (Auto) 1.3 (0-4) % Baso % (Auto) 0.2 (0-2) % Lymph # (Auto) 2.1 (1.2-4.9) X10*3/uL Mcmullen # (Auto) 0.6 (0.1-1.2) X10*3/uL Eos # (Auto) 0.1 (0.0-0.4) X10*3/uL Baso # (Auto) 0.0 (0.0-0.2) X10*3/uL Abs Immat Gran (auto) 0.03 (0.00-0.03) X10*3/uL Absolute Neuts (auto) 5.9 (2.0-8.3) x10*3/uL Absolute Nucleated RBC 0.000 (0.0-0.012) X10*3/uL Nucleated RBC % (auto) 0.0 (0.0-0.2) /100WBC PT (10.0-13.1) SEC INR (0.9-1.1) APTT (24.1-38.0) SEC Sodium (135-145) mmol/L Potassium (3.3-5.1) mmol/L Chloride (96-108) mmol/L Carbon Dioxide (22-29) mmol/L Anion Gap (12-20) BUN (9-16) mg/dL Creatinine (0.5-1.4) mg/dL Estim Creat Clear Calc Estimated GFR Random Glucose (60-115) mg/dL Calcium (8.4-10.2) mg/dL Magnesium (1.6-2.6) mg/dL Total Bilirubin (0.0-1.0) mg/dL AST (5-37) U/L ALT (0-40) U/L Alkaline Phosphatase (39-117) U/L Troponin I High Sens 15.5 (<3.5-35.0) ng/L Total Protein (6.5-8.0) g/dL Albumin (3.5-5.0) g/dL Urine Color Urine Appearance Urine pH (5.0-8.0) Ur Specific [place] (1.005-1.025) Urine Protein (NEG-TRACE) MG/DL Urine Glucose (UA) (NEG) MG/DL Urine Ketones (NEG) MG/DL Urine Blood (NEG) Urine Nitrite (NEG) Ur Leukocyte Esterase (NEG) COVID-19 (FERMIN) Negative (Negative) COVID-19 Clin Com See Note 09/03/21 09/03/21 09/03/21 Range/Units 16:27 16:27 17:01 WBC (4.8-10.8) X10*3/uL RBC (4.60-5.80) X10*6/uL Hgb (14.0-18.0) g/dl Hct (42.0-52.0) % MCV (80.0-98.0) fL MCH (27.0-33.0) pg MCHC (31.0-36.0) g/dl RDW (11.0-16.0) % Plt Count (160-400) X10*3/uL MPV (9.4-12.4) fL Immature Gran % (Auto) (0.0-0.4) % Neut % (Auto) (45-73) % Lymph % (Auto) (20-40) % Mcmullen % (Auto) (2-11) % Eos % (Auto) (0-4) % Baso % (Auto) (0-2) % Lymph # (Auto) (1.2-4.9) X10*3/uL Mcmullen # (Auto) (0.1-1.2) X10*3/uL Eos # (Auto) (0.0-0.4) X10*3/uL Baso # (Auto) (0.0-0.2) X10*3/uL Abs Immat Gran (auto) (0.00-0.03) X10*3/uL Absolute Neuts (auto) (2.0-8.3) x10*3/uL Absolute Nucleated RBC (0.0-0.012) X10*3/uL Nucleated RBC % (auto) (0.0-0.2) /100WBC PT 17.1 H (10.0-13.1) SEC INR 1.5 H (0.9-1.1) APTT 38.2 H (24.1-38.0) SEC Sodium 143 (135-145) mmol/L Potassium 3.5 D (3.3-5.1) mmol/L Chloride 109 H (96-108) mmol/L Carbon Dioxide 27 (22-29) mmol/L Anion Gap 11 L (12-20) BUN 13 (9-16) mg/dL Creatinine 0.82 (0.5-1.4) mg/dL Estim Creat Clear Calc 65.1 Estimated GFR > 60 Random Glucose 100 (60-115) mg/dL Calcium 8.4 D (8.4-10.2) mg/dL Magnesium 1.7 (1.6-2.6) mg/dL Total Bilirubin 0.4 (0.0-1.0) mg/dL AST 21 (5-37) U/L ALT 16 (0-40) U/L Alkaline Phosphatase 76 (39-117) U/L Troponin I High Sens (<3.5-35.0) ng/L Total Protein 5.5 L (6.5-8.0) g/dL Albumin 3.6 (3.5-5.0) g/dL Urine Color YELLOW Urine Appearance CLEAR Urine pH 6.5 (5.0-8.0) Ur Specific [place] <= 1.005 (1.005-1.025) Urine Protein NEG (NEG-TRACE) MG/DL Urine Glucose (UA) NEG (NEG) MG/DL Urine Ketones NEG (NEG) MG/DL Urine Blood NEG (NEG) Urine Nitrite NEG (NEG) Ur Leukocyte Esterase NEG (NEG) COVID-19 (FERMIN) (Negative) COVID-19 Clin Com 09/03/21 Range/Units 20:16 WBC (4.8-10.8) X10*3/uL RBC (4.60-5.80) X10*6/uL Hgb (14.0-18.0) g/dl Hct (42.0-52.0) % MCV (80.0-98.0) fL MCH (27.0-33.0) pg MCHC (31.0-36.0) g/dl RDW (11.0-16.0) % Plt Count (160-400) X10*3/uL MPV (9.4-12.4) fL Immature Gran % (Auto) (0.0-0.4) % Neut % (Auto) (45-73) % Lymph % (Auto) (20-40) % Mcmullen % (Auto) (2-11) % Eos % (Auto) (0-4) % Baso % (Auto) (0-2) % Lymph # (Auto) (1.2-4.9) X10*3/uL Mcmullen # (Auto) (0.1-1.2) X10*3/uL Eos # (Auto) (0.0-0.4) X10*3/uL Baso # (Auto) (0.0-0.2) X10*3/uL Abs Immat Gran (auto) (0.00-0.03) X10*3/uL Absolute Neuts (auto) (2.0-8.3) x10*3/uL Absolute Nucleated RBC (0.0-0.012) X10*3/uL Nucleated RBC % (auto) (0.0-0.2) /100WBC PT (10.0-13.1) SEC INR (0.9-1.1) APTT (24.1-38.0) SEC Sodium (135-145) mmol/L Potassium (3.3-5.1) mmol/L Chloride (96-108) mmol/L Carbon Dioxide (22-29) mmol/L Anion Gap (12-20) BUN (9-16) mg/dL Creatinine (0.5-1.4) mg/dL Estim Creat Clear Calc Estimated GFR Random Glucose (60-115) mg/dL Calcium (8.4-10.2) mg/dL Magnesium (1.6-2.6) mg/dL Total Bilirubin (0.0-1.0) mg/dL AST (5-37) U/L ALT (0-40) U/L Alkaline Phosphatase (39-117) U/L Troponin I High Sens 14.8 (<3.5-35.0) ng/L Total Protein (6.5-8.0) g/dL Albumin (3.5-5.0) g/dL Urine Color Urine Appearance Urine pH (5.0-8.0) Ur Specific [place] (1.005-1.025) Urine Protein (NEG-TRACE) MG/DL Urine Glucose (UA) (NEG) MG/DL Urine Ketones (NEG) MG/DL Urine Blood (NEG) Urine Nitrite (NEG) Ur Leukocyte Esterase (NEG) COVID-19 (FERMIN) (Negative) COVID-19 Clin Com <LE Macias - Last Filed: 09/03/21 17:45> Lab Results 09/03/21 09/03/21 09/03/21 Range/Units 16:27 16:27 16:27 WBC 8.7 (4.8-10.8) X10*3/uL RBC 3.79 L (4.60-5.80) X10*6/uL Hgb 11.2 L (14.0-18.0) g/dl Hct 34.2 L (42.0-52.0) % MCV 90.2 (80.0-98.0) fL MCH 29.6 (27.0-33.0) pg MCHC 32.7 (31.0-36.0) g/dl RDW 13.9 (11.0-16.0) % Plt Count 194 (160-400) X10*3/uL MPV 10.2 (9.4-12.4) fL Immature Gran % (Auto) 0.3 (0.0-0.4) % Neut % (Auto) 67.3 (45-73) % Lymph % (Auto) 24.2 (20-40) % Mcmullen % (Auto) 6.7 (2-11) % Eos % (Auto) 1.3 (0-4) % Baso % (Auto) 0.2 (0-2) % Lymph # (Auto) 2.1 (1.2-4.9) X10*3/uL [place] # (Auto) 0.6 (0.1-1.2) X10*3/uL Eos # (Auto) 0.1 (0.0-0.4) X10*3/uL Baso # (Auto) 0.0 (0.0-0.2) X10*3/uL Abs Immat Gran (auto) 0.03 (0.00-0.03) X10*3/uL Absolute Neuts (auto) 5.9 (2.0-8.3) x10*3/uL Absolute Nucleated RBC 0.000 (0.0-0.012) X10*3/uL Nucleated RBC % (auto) 0.0 (0.0-0.2) /100WBC PT (10.0-13.1) SEC INR (0.9-1.1) APTT (24.1-38.0) SEC Sodium (135-145) mmol/L Potassium (3.3-5.1) mmol/L Chloride (96-108) mmol/L Carbon Dioxide (22-29) mmol/L Anion Gap (12-20) BUN (9-16) mg/dL Creatinine (0.5-1.4) mg/dL Estim Creat Clear Calc Estimated GFR Random Glucose (60-115) mg/dL Calcium (8.4-10.2) mg/dL Magnesium (1.6-2.6) mg/dL Total Bilirubin (0.0-1.0) mg/dL AST (5-37) U/L ALT (0-40) U/L Alkaline Phosphatase (39-117) U/L Troponin I High Sens 15.5 (<3.5-35.0) ng/L Total Protein (6.5-8.0) g/dL Albumin (3.5-5.0) g/dL Urine Color Urine Appearance Urine pH (5.0-8.0) Ur Specific [place] (1.005-1.025) Urine Protein (NEG-TRACE) MG/DL Urine Glucose (UA) (NEG) MG/DL Urine Ketones (NEG) MG/DL Urine Blood (NEG) Urine Nitrite (NEG) Ur Leukocyte Esterase (NEG) COVID-19 (FERMIN) Negative (Negative) COVID-19 Clin Com See Note 09/03/21 09/03/21 09/03/21 Range/Units 16:27 16:27 17:01 WBC (4.8-10.8) X10*3/uL RBC (4.60-5.80) X10*6/uL Hgb (14.0-18.0) g/dl Hct (42.0-52.0) % MCV (80.0-98.0) fL MCH (27.0-33.0) pg MCHC (31.0-36.0) g/dl RDW (11.0-16.0) % Plt Count (160-400) X10*3/uL MPV (9.4-12.4) fL Immature Gran % (Auto) (0.0-0.4) % Neut % (Auto) (45-73) % Lymph % (Auto) (20-40) % [place] % (Auto) (2-11) % Eos % (Auto) (0-4) % Baso % (Auto) (0-2) % Lymph # (Auto) (1.2-4.9) X10*3/uL [place] # (Auto) (0.1-1.2) X10*3/uL Eos # (Auto) (0.0-0.4) X10*3/uL Baso # (Auto) (0.0-0.2) X10*3/uL Abs Immat Gran (auto) (0.00-0.03) X10*3/uL Absolute Neuts (auto) (2.0-8.3) x10*3/uL Absolute Nucleated RBC (0.0-0.012) X10*3/uL Nucleated RBC % (auto) (0.0-0.2) /100WBC PT 17.1 H (10.0-13.1) SEC INR 1.5 H (0.9-1.1) APTT 38.2 H (24.1-38.0) SEC Sodium 143 (135-145) mmol/L Potassium 3.5 D (3.3-5.1) mmol/L Chloride 109 H (96-108) mmol/L Carbon Dioxide 27 (22-29) mmol/L Anion Gap 11 L (12-20) BUN 13 (9-16) mg/dL Creatinine 0.82 (0.5-1.4) mg/dL Estim Creat Clear Calc 65.1 Estimated GFR > 60 Random Glucose 100 (60-115) mg/dL Calcium 8.4 D (8.4-10.2) mg/dL Magnesium 1.7 (1.6-2.6) mg/dL Total Bilirubin 0.4 (0.0-1.0) mg/dL AST 21 (5-37) U/L ALT 16 (0-40) U/L Alkaline Phosphatase 76 (39-117) U/L Troponin I High Sens (<3.5-35.0) ng/L Total Protein 5.5 L (6.5-8.0) g/dL Albumin 3.6 (3.5-5.0) g/dL Urine Color YELLOW Urine Appearance CLEAR Urine pH 6.5 (5.0-8.0) Ur Specific [place] <= 1.005 (1.005-1.025) Urine Protein NEG (NEG-TRACE) MG/DL Urine Glucose (UA) NEG (NEG) MG/DL Urine Ketones NEG (NEG) MG/DL Urine Blood NEG (NEG) Urine Nitrite NEG (NEG) Ur Leukocyte Esterase NEG (NEG) COVID-19 (FERMIN) (Negative) COVID-19 Clin Com 09/03/21 Range/Units 20:16 WBC (4.8-10.8) X10*3/uL RBC (4.60-5.80) X10*6/uL Hgb (14.0-18.0) g/dl Hct (42.0-52.0) % MCV (80.0-98.0) fL MCH (27.0-33.0) pg MCHC (31.0-36.0) g/dl RDW (11.0-16.0) % Plt Count (160-400) X10*3/uL MPV (9.4-12.4) fL Immature Gran % (Auto) (0.0-0.4) % Neut % (Auto) (45-73) % Lymph % (Auto) (20-40) % [place] % (Auto) (2-11) % Eos % (Auto) (0-4) % Baso % (Auto) (0-2) % Lymph # (Auto) (1.2-4.9) X10*3/uL [place] # (Auto) (0.1-1.2) X10*3/uL Eos # (Auto) (0.0-0.4) X10*3/uL Baso # (Auto) (0.0-0.2) X10*3/uL Abs Immat Gran (auto) (0.00-0.03) X10*3/uL Absolute Neuts (auto) (2.0-8.3) x10*3/uL Absolute Nucleated RBC (0.0-0.012) X10*3/uL Nucleated RBC % (auto) (0.0-0.2) /100WBC PT (10.0-13.1) SEC INR (0.9-1.1) APTT (24.1-38.0) SEC Sodium (135-145) mmol/L Potassium (3.3-5.1) mmol/L Chloride (96-108) mmol/L Carbon Dioxide (22-29) mmol/L Anion Gap (12-20) BUN (9-16) mg/dL Creatinine (0.5-1.4) mg/dL Estim Creat Clear Calc Estimated GFR Random Glucose (60-115) mg/dL Calcium (8.4-10.2) mg/dL Magnesium (1.6-2.6) mg/dL Total Bilirubin (0.0-1.0) mg/dL AST (5-37) U/L ALT (0-40) U/L Alkaline Phosphatase (39-117) U/L Troponin I High Sens 14.8 (<3.5-35.0) ng/L Total Protein (6.5-8.0) g/dL Albumin (3.5-5.0) g/dL Urine Color Urine Appearance Urine pH (5.0-8.0) Ur Specific [place] (1.005-1.025) Urine Protein (NEG-TRACE) MG/DL Urine Glucose (UA) (NEG) MG/DL Urine Ketones (NEG) MG/DL Urine Blood (NEG) Urine Nitrite (NEG) Ur Leukocyte Esterase (NEG) COVID-19 (FERMIN) (Negative) COVID-19 Clin Com <LE Vu - Last Filed: 09/03/21 23:59> Discharge Plan Discharge Clinical Impression: Acute hypokalemia, Headache <LE Macias - Last Filed: 09/03/21 17:45> Patient Disposition: Home, Self-Care <LE Macias - Last Filed: 09/03/21 17:45> Additional Instructions: Ross evaluaci?n m?dica result? normal. Los an?lisis de marisela y la tomog tracy?a computarizada de la adelaide resultaron normales. Omid un seguimiento con ross proveedor de atenci?n primaria para dodie evaluaci?n adicional. Regrese al servicio de urgencias de inmediato si empeora el dolor de adelaide, habla arrastrando las palabras, ca?da facial, par?lisis de las extremidades, p?rdida de la visi?n, dolor tor?cico, dificultad para respirar, dolor abdominal, n?useas, v?mitos o cualquier otro s?ntoma preocupante. <LE Macias - Last Filed: 09/03/21 17:45> Prescriptions: No Action Breo Ellipta 200-25 mcg/dose blister with device 1 ea inhalation DAILY Qty: 60 2RF ascorbate calcium (vitamin C) 500 mg tablet 500 mg PO DAILY 90 Days Qty: 90 3RF ferrous sulfate 325 mg (65 mg iron) tablet,delayed release (DR/EC) 325 mg PO DAILY 90 Days Qty: 90 3RF cyanocobalamin (vitamin B-12) 1,000 mcg capsule 1,000 mcg PO BEDTIME 90 Days Qty: 90 3RF pantoprazole 40 mg tablet,delayed release (DR/EC) 40 mg PO DAILY Qty: 90 3RF furosemide 40 mg tablet 40 mg PO DAILY Qty: 90 1RF tamsulosin 0.4 mg capsule 0.4 mg PO DAILY 90 Days Qty: 90 3RF verapamil 180 mg capsule,ext rel. pellets 24 hr 180 mg PO DAILY Qty: 90 3RF losartan 100 mg tablet 100 mg PO DAILY Qty: 90 0RF sucralfate 100 mg/mL suspension 10 ml PO BEDTIME Qty: 400 0RF sennosides [Senokot] 8.6 mg tablet 8.6 mg PO DAILY Qty: 30 6RF tramadol 50 mg tablet 50 mg PO TID PRN (Reason: pain (scale score 4-6)) 7 Days Qty: 21 0RF Xarelto 20 mg tablet 20 mg PO DAILY Qty: 90 1RF Rx Instructions: must administer with evening meal appropriate dose for current kidney function atorvastatin 80 mg tablet 80 mg PO BEDTIME carvedilol 12.5 mg tablet 12.5 mg PO BID levofloxacin 500 mg tablet 500 mg PO DAILY 10 Days Qty: 10 0RF metronidazole 500 mg tablet 500 mg PO TID Qty: 30 0RF carvedilol 25 mg tablet 25 mg PO BID Citrucel 500 mg tablet 500 mg PO DAILY Qty: 30 2RF Rx Instructions: take it with full glass of water simethicone [Gas Relief (simethicone)] 125 mg capsule 125 mg PO TID-QID PRN (Reason: abdominal distention) Qty: 120 2RF Linzess 145 mcg capsule 145 mcg PO DAILY Qty: 90 2RF <LE Macias - Last Filed: 09/03/21 17:45> Interventions: ED Discharge Assessment Last Done: 09/03/21 22:42 <LE Macias - Last Filed: 09/03/21 17:45> Discharge Date/Time: 09/03/21 22:45 <LE Macias - Last Filed: 09/03/21 17:45> Print Language: Nepali <LE Macias - Last Filed: 09/03/21 17:45>
--- NOTE | 2021-09-03 16:08 | PC.NURSE ---
Pt to CT scan at this time. Pt report sudden headache 3 days ago. On Xarelto for A fib, denies trauma. Neuros intact at this time. Skin pale, denies vomiting blood or bloody stool. +2 pitting edema b/l. states new for pt.
[2021-09-03 16:29] VITALS: PULSE 64; RESP 20
[2021-09-03 16:33] LABS: MANUAL DIFF FLAG NO
[2021-09-03 16:39] LABS: Basophils Percent Auto 0.2 % (0-2); Eosinophils Absolute Auto 0.1 X10*3/uL (0.0-0.4); Eosinophils Percent Auto 1.3 % (0-4); Hematocrit 34.2 % (42.0-52.0); Hemoglobin 11.2 g/dl (14.0-18.0); Imm Gran Abs Auto 0.03 X10*3/uL (0.00-0.03); Imm Gran Pct Auto 0.3 % (0.0-0.4); Lymphocytes Absolute Auto 2.1 X10*3/uL (1.2-4.9); Lymphocytes Percent Auto 24.2 % (20-40); Mean Corpuscular HGB Conc 32.7 g/dl (31.0-36.0); Mean Corpuscular Hemoglobin 29.6 pg (27.0-33.0); Mean Corpuscular Volume 90.2 fL (80.0-98.0); Mean Platelet Volume 10.2 fL (9.4-12.4); Monocytes Absolute Auto 0.6 X10*3/uL (0.1-1.2); Monocytes Percent Auto 6.7 % (2-11); Neutrophils Absolute Auto 5.9 x10*3/uL (2.0-8.3); Neutrophils Percent Auto 67.3 % (45-73); Platelet Count 194 X10*3/uL (160-400); Red Blood Count 3.79 X10*6/uL (4.60-5.80); Red Cell Distribution Width 13.9 % (11.0-16.0); White Blood Count 8.7 X10*3/uL (4.8-10.8)
[2021-09-03 16:45] LABS: Appearance Urine CLEAR; Color Urine YELLOW; Glucose Urine UA NEG (NEG); INTERNATIONAL NORM RATIO 1.5 (0.9-1.1); Leukocyte Esterase Urine NEG (NEG); Nitrite Urine NEG (NEG); PH 6.5 (5.0-8.0); Prothrombin Time 17.1 SEC (10.0-13.1); Specific Gravity - Urine <= 1.005 (1.005-1.025); Urine Blood NEG (NEG); Urine Ketones NEG (NEG); Urine Protein NEG (NEG-TRACE)
[2021-09-03] MEDS: Potassium Chloride ER 20 MEQ TAB.ER.PRT 40 MEQ PO (16:46)
[2021-09-03 16:47] LABS: Partial Thromboplastin Time 38.2 SEC (24.1-38.0)
[2021-09-03 16:52] LABS: COVID-19 Test Negative (Negative); IDNOW Serial# 08D9AD1C
[2021-09-03 17:03] LABS: Troponin-I High Sensitivity 15.5 ng/L (<3.5-35.0)
[2021-09-03 17:33] LABS: Alanine Aminotransferase 16 U/L (0-40); Albumin Level 3.6 g/dL (3.5-5.0); Alkaline Phosphatase 76 U/L (39-117); Anion Gap 11 (12-20); Aspartate Amino Transferase 21 U/L (5-37); Bilirubin Total 0.4 mg/dL (0.0-1.0); Blood Urea Nitrogen 13 mg/dL (9-16); Calcium 8.4 mg/dL (8.4-10.2); Carbon Dioxide 27 mmol/L (22-29); Chloride 109 mmol/L (96-108); Creatinine Clr Calc Pharmacy 65.1; Estimated Glomerular Filt Rate > 60; Glucose Random 100 mg/dL (60-115); Magnesium 1.7 mg/dL (1.6-2.6); Potassium 3.5 mmol/L (3.3-5.1); Sodium 143 mmol/L (135-145); Total Protein 5.5 g/dL (6.5-8.0)
[2021-09-03 18:10] VITALS: BP 183/74; PULSE 64; RESP 18; O2SAT 99
[2021-09-03 20:51] LABS: Troponin-I High Sensitivity 14.8 ng/L (<3.5-35.0)
== END 2021-09-03 22:45 | disposition home or self-care (01) ==
PROVIDERS: Physician Assistant; Physician Assistant Medical; Emergency Provider Emergency Medicine; PCP Registered Nurse
DX: R51.9 Headache, unspecified (principal); R42 Dizziness and giddiness; E87.6 Hypokalemia; Z20.822 Contact with and (suspected) exposure to COVID-19; Z79.899 Other long term (current) drug therapy; Z79.01 Long term (current) use of anticoagulants; Z87.891 Personal history of nicotine dependence
CPT/HCPCS: 36415; 70450; 80053; 81003; 83735; 84484; 85025; 85610; 85730; 87635; 99284

== ENCOUNTER → 2021-10-23 09:57 | Outpatient (BNVA) | payer OTHER, SELFPAY | PROVIDERS: PCP Registered Nurse; Visit Provider Internal Medicine | DX: I11.9 Hypertensive heart disease without heart failure (principal); I42.2 Other hypertrophic cardiomyopathy; I48.0 Paroxysmal atrial fibrillation; G47.33 Obstructive sleep apnea (adult) (pediatric); I44.0 Atrioventricular block, first degree; Z79.01 Long term (current) use of anticoagulants; Z79.899 Other long term (current) drug therapy; Z87.891 Personal history of nicotine dependence | CPT/HCPCS: 93005; 99212 ==

== ENCOUNTER 2021-11-01 12:35 | Outpatient (REF) | payer OTHER, SELFPAY ==
--- NOTE | ~2021-11-01 | US_ITS ---
EXAMINATION: US ABDOMEN COMPLETE CLINICAL INFORMATION: Pain in right upper quadrant especially after eating. COMPARISON: CT abdomen and pelvis 05/27/2021. Ultrasound abdomen limited 05/03/2020 and 11/15/2019. TECHNIQUE: Real-time imaging of the abdominal viscera. FINDINGS: PANCREAS: Normal. ABDOMINAL AORTA: Not well visualized. INFERIOR VENA CAVA: Visualized portions are normal. LIVER: Normal. The liver is normal in size. The liver contour is normal. Parenchymal echogenicity is normal. No focal hepatic lesion. There is no intrahepatic biliary duct dilatation seen. GALLBLADDER: Gallbladder wall appears slightly thickened measuring between 3 and 6 mm echogenic. No gallstones are seen. The gallbladder is normal in size. COMMON BILE DUCT: Normal in caliber measuring 0.7 cm in diameter. RIGHT KIDNEY: There is mild caliectasis. There is a 8 mm cyst in the lateral midpole No hydronephrosis or renal calculi. The kidney measures 11.1 cm in maximum dimension. LEFT KIDNEY: There is a 5 mm stone in the midpole. There is a 5 mm cyst in the upper pole. No hydronephrosis. The kidney measures 10.4 cm in maximum dimension. SPLEEN: Normal. The spleen measures 9.3 cm in maximum dimension. FREE FLUID: None. US/US abdomen complete IMPRESSION: Slightly thickened echogenic gallbladder wall. Appearance is questionable for chronic cholecystitis. No gallstone seen. This could be further evaluated with HIDA scan if clinically indicated. Small bilateral renal cysts. Left renal stone. Mild right renal caliectasis. Limited visualization of the aorta.
== END 2021-11-01 12:36 | disposition home or self-care (01) ==
LOC: HO.US 12:35
PROVIDERS: Visit Provider Registered Nurse
DX: R10.11 Right upper quadrant pain (principal)
CPT/HCPCS: 76700

== ENCOUNTER 2021-11-14 02:52 | Emergency (ER) | payer OTHER, SELFPAY ==
--- NOTE | ~2021-11-14 | XR_ITS ---
EXAMINATION: XR CHEST CLINICAL INFORMATION: COVID+ COMPARISON: 05/30/2021 TECHNIQUE: Frontal view of the chest was obtained. FINDINGS: As in the prior study, there are subtle thin reticular interstitial opacities in both lungs which are unchanged and correspond to chronic interstitial changes. No new airspace consolidation. No pneumothorax or pleural effusion. Cardiac and mediastinal contours are within normal limits. No acute osseous findings. 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 XR/XR chest 1V IMPRESSION: 1. No acute cardiopulmonary process. 2. Stable chronic interstitial changes.
--- NOTE | ~2021-11-14 | CT_ITS ---
EXAMINATION: CT SOFT TISSUE NECK WITH CONTRAST CLINICAL INFORMATION: Change in voice COMPARISON: None TECHNIQUE: Following the intravenous administration of 60 mL of Omnipaque 350 intravenous contrast, helical imaging was performed in the axial plane with generation of coronal and sagittal reformatted images. This CT examination was performed using dose optimization techniques as appropriate, variously including the following: *Automated exposure control *Adjustment of mA and/or kV according to patient size (this includes techniques or standardized protocols for targeted exams where dose is matched to indication/reason for exam; i.e. extremities or head) *Use of iterative reconstruction technique DLP: 635 mGy-cm FINDINGS: No cervical adenopathy is identified. The parotid glands are homogeneous in attenuation. The submandibular glands are normal. No contour abnormality is seen within the oral cavity or pharyngeal mucosal space. The laryngeal structures are normal. The parapharyngeal fat is preserved. No extra mucosal soft tissue mass or fluid collection is seen. No retropharyngeal fluid collection is seen. Calcifications are seen throughout the carotid vasculature without flow-limiting stenosis. The thyroid gland is normal. Coronary artery calcifications noted.. Chronic changes of pleural thickening noted at the lung apices with subpleural changes in the lung parenchyma.. The mastoid air cells and visualized portions of the paranasal sinuses are well-aerated. The temporomandibular joints are normal. No periapical disease is identified. No acute osseous abnormalities are seen. Mild degenerative changes throughout the spine. Chronic healed posterior left-sided rib fractures. The imaged portions of the brain parenchyma are unremarkable. CT/CT soft tissue neck w IV con IMPRESSION: No suspicious findings of the neck soft tissues. No lymphadenopathy. No mass identified. The airway is normal.
[2021-11-14 03:02] VITALS: BP 167/68; BP 172/88; PULSE 73; RESP 14; TEMP 36.7; O2SAT 100; O2SAT 98; BMI 36.6
--- NOTE | 2021-11-14 03:27 | ECG_ITS ---
Test Reason : THROAT TIGHTNESS Blood Pressure : / mmHG Vent. Rate : 052 BPM Atrial Rate : 052 BPM P-R Int : 274 ms QRS Dur : 128 ms QT Int : 468 ms P-R-T Axes : 027 -19 063 degrees QTc Int : 435 ms Sinus bradycardia with marked sinus arrhythmia with 1st degree A-V block Right bundle branch block Possible Lateral infarct (cited on or before 30-MAY-2021) Possible Inferior infarct , age undetermined Abnormal ECG When compared with ECG of 30-MAY-2021 13:44, Premature atrial complexes are no longer Present Referred By: Kaylee Weber Electronically Signed By:MICHAEL CARABALLO
--- NOTE | 2021-11-14 03:44 | ED.GENADULT ---
HPI - General Adult General Chief complaint: General Medical Stated complaint: throat tightness Time Seen by Provider: 11/14/21 03:26 History of Present Illness HPI narrative: Patient is an 85-year-old male presents today with hoarseness in his voice. Has a history of atrial fibrillation currently is on Eliquis. Also history of high cholesterol history of congestive heart failure. No chest pain or shortness of breath no diaphoresis no pain in the throat. This feels that his voice is hoarse feels that there is something there. Patient denies any diaphoresis. No coughing congestion upper respiratory symptoms Related Data Home Medications Medication Instructions Recorded Confirmed atorvastatin 80 mg tablet 80 mg PO BEDTIME 06/03/20 10/23/21 carvedilol 25 mg tablet 25 mg PO BID 12/04/20 10/23/21 Previous Rx's Medication Instructions Recorded fluticasone furoate 200 1 ea inhalation DAILY #60 ea 07/05/20 mcg-vilanterol 25 mcg/dose inhalation powder (Breo Ellipta) simethicone 125 mg capsule (Gas 125 mg PO TID-QID PRN abdominal 07/30/20 Relief (simethicone)) distention #120 caps ascorbate calcium (vitamin C) 500 500 mg PO DAILY 90 days #90 tabs 08/17/20 mg tablet cyanocobalamin (vitamin B-12) 1,000 mcg PO BEDTIME 90 days #90 09/13/20 1,000 mcg capsule caps ferrous sulfate 325 mg (65 mg 325 mg PO DAILY 90 days #90 tabs 09/13/20 iron) tablet,delayed release methylcellulose (laxative) 500 mg 500 mg PO DAILY #30 tabs 12/04/20 tablet (Citrucel) furosemide 40 mg tablet 40 mg PO DAILY #90 tabs 03/11/21 tamsulosin 0.4 mg capsule 0.4 mg PO DAILY 90 days #90 caps 03/29/21 verapamil 180 mg 24 hr 180 mg PO DAILY #90 caps 03/29/21 capsule,extended release losartan 100 mg tablet 100 mg PO DAILY #90 tabs 07/02/21 sucralfate 100 mg/mL oral 10 ml PO BEDTIME #400 mL 07/11/21 suspension linaclotide 145 mcg capsule 145 mcg PO DAILY #90 caps 07/15/21 (Linzess) sennosides 8.6 mg tablet (Senokot) 8.6 mg PO DAILY #30 tabs 07/19/21 tramadol 50 mg tablet 50 mg PO TID PRN pain (scale score 08/05/21 4-6) 7 days #21 tabs rivaroxaban 20 mg tablet (Xarelto) 20 mg PO DAILY #90 tabs 08/16/21 pantoprazole 40 mg tablet,delayed 40 mg PO DAILY #90 tabs 10/27/21 release Allergies Allergy/AdvReac Type Severity Reaction Status Date / Time dabigatran etexilate Allergy Intermediate ITCHING Verified 11/14/21 03:02 [From PRADAXA] JORGE L Inhibitors Allergy Mild UNKNOWN, Verified 11/14/21 03:02 [Jorge L Inhibitors] FOUND IN MEDICAL RECORD 04/[address] GIPSON ezetimibe [From Zetia] Allergy Mild ANAPHYLAXIS Verified 11/14/21 03:02 apixaban [From ELIQUIS] Allergy Unknown UNKNOWN, Verified 11/14/21 03:02 rash rosuvastatin [Crestor] Allergy Unknown myalgia Verified 11/14/21 03:02 Review of Systems Review of Systems: No chest pain or diaphoresis Positive tightness in the throat positive change in voice Yes all other systems are reviewed and are negative PMFSH Past Medical History Attestation statement: The following information was validated with the patient. Medical History Acute respiratory failure with hypoxia Afib Anemia Anxiety and depression ARDS (adult respiratory distress syndrome) BPH (benign prostatic hyperplasia) Cholecystitis Chronic abdominal pain Constipation COPD (chronic obstructive pulmonary disease) COVID-19 virus infection Current use of anticoagulant therapy Diastolic CHF, acute on chronic Diverticulitis Frequency of micturition GERD (gastroesophageal reflux disease) Headache History of CVA (cerebrovascular accident) History of rib fracture Hypercholesterolemia Hypertension Hypertrophic cardiomyopathy Hypogammaglobulinemia Meningioma Obesity (BMI 30-39.9) Obstructive sleep apnea Paroxysmal atrial fibrillation Peripheral neuropathy Peripheral vascular disease Polyarthralgia Primary osteoarthritis of right knee Protrusion of lumbar intervertebral disc Tear of medial meniscus of knee Urinary incontinence Surgical History H/O colonoscopy History of left knee replacement History of tonsillectomy History of total right hip replacement History of transurethral resection of prostate Family History Family History Father No problems noted. Mother Hx of type 1 diabetes mellitus Social History Social History Household Members: Spouse Housing: House Do you presently have visiting nurse or other home services: No Alcohol intake: never Patient Tobacco Use Status: Former Tobacco user Years Smoked: 30 yrs ago Second Hand Smoke Exposure: No Advance Directives: Yes Advance Directives on File: Yes Advance Directives Date on File: 04/06/20 service: No Current occupational status: unemployed and retired Current occupation: Right Handed Physical Exam ED Vital Signs: Vital Signs - 24 hr 11/14/21 03:02 11/14/21 03:48 Temperature 98.1 F Pulse Rate 73 67 Respiratory Rate 14 12 Blood Pressure 167/68 H 154/74 H Pulse Oximetry 98 98 Oxygen Delivery Method Room Air Room Air BMI result Body Mass Index 36.6 Appearance: Alert. Oriented X3. No acute distress. Eyes: Pupils equal, round and reactive to light. ENT: Pharynx normal. Neck: Normal inspection. Neck supple. No lymph nodes noted. No crepitus CVS: Normal heart rate and rhythm. Pulses normal. Normal S1 and S2 Respiratory: No respiratory distress. Breath sounds normal. No Wheezing. No rales Abdomen: Soft and nontender. No rigidity. No distention. good BS x4 Skin: Skin warm and dry. Normal skin color. Normal skin turgor. Extremities: No lower extremity edema. Neurovascular intact to all extremities. No Lacerations. No Rash Neuro: Oriented X 3. No motor deficit. No sensory deficit. Moving all extermities. No slurred speech Medical Decision Making MDM Narrative Medical decision making narrative: EKG showed a sinus pattern with marked sinus arrhythmia DE is prolonged. QRS narrow. There is a partial right bundle branch block. There is no acute ST segment elevation EKG similar to previous. Patient's electrolytes unremarkable. She chest x-ray did not show any new focal infiltrate. Patient's troponin is negative. Electrolytes unremarkable. Patient's COVID test came back positive. Patient is not a good candidate for [place] loaded as he is on rivaroxaban. Will discharge patient home. Patient is vaccinated for COVID. He is in stable condition. Lab Data Result diagrams: 11/14/21 04:01 11/14/21 04:01 Labs: Lab Results 11/14/21 11/14/21 11/14/21 Range/Units 04:01 04:01 04:01 WBC 9.6 (4.8-10.8) X10*3/uL RBC 4.25 L (4.60-5.80) X10*6/uL Hgb 12.4 L (14.0-18.0) g/dl Hct 38.3 L (42.0-52.0) % MCV 90.1 (80.0-98.0) fL MCH 29.2 (27.0-33.0) pg MCHC 32.4 (31.0-36.0) g/dl RDW 13.3 (11.0-16.0) % Plt Count 167 (160-400) X10*3/uL MPV 9.7 (9.4-12.4) fL Immature Gran % (Auto) 0.4 (0.0-0.4) % Neut % (Auto) 69.2 (45-73) % Lymph % (Auto) 19.6 L (20-40) % [place] % (Auto) 8.9 (2-11) % Eos % (Auto) 1.6 (0-4) % Baso % (Auto) 0.3 (0-2) % Lymph # (Auto) 1.9 (1.2-4.9) X10*3/uL [place] # (Auto) 0.9 (0.1-1.2) X10*3/uL Eos # (Auto) 0.2 (0.0-0.4) X10*3/uL Baso # (Auto) 0.0 (0.0-0.2) X10*3/uL Abs Immat Gran (auto) 0.04 H (0.00-0.03) X10*3/uL Absolute Neuts (auto) 6.6 (2.0-8.3) x10*3/uL Absolute Nucleated RBC 0.000 (0.0-0.012) X10*3/uL Nucleated RBC % (auto) 0.0 (0.0-0.2) /100WBC Sodium (135-145) mmol/L Potassium (3.3-5.1) mmol/L Chloride (96-108) mmol/L Carbon Dioxide (22-29) mmol/L Anion Gap (12-20) BUN (9-16) mg/dL Creatinine (0.5-1.4) mg/dL Estim Creat Clear Calc Estimated GFR Random Glucose (60-115) mg/dL Calcium (8.4-10.2) mg/dL Total Bilirubin (0.0-1.0) mg/dL Direct Bilirubin (0.0-0.5) mg/dL AST (5-37) U/L ALT (0-40) U/L Alkaline Phosphatase (39-117) U/L Troponin I High Sens (<3.5-35.0) ng/L Total Protein (6.5-8.0) g/dL Albumin (3.5-5.0) g/dL COVID-19 (FERMIN) Positive A (Negative) COVID-19 Clin Com See Note S. pyogenes GrpA AAMRA Negative (Negative) 11/14/21 11/14/21 Range/Units 04:01 04:01 WBC (4.8-10.8) X10*3/uL RBC (4.60-5.80) X10*6/uL Hgb (14.0-18.0) g/dl Hct (42.0-52.0) % MCV (80.0-98.0) fL MCH (27.0-33.0) pg MCHC (31.0-36.0) g/dl RDW (11.0-16.0) % Plt Count (160-400) X10*3/uL MPV (9.4-12.4) fL Immature Gran % (Auto) (0.0-0.4) % Neut % (Auto) (45-73) % Lymph % (Auto) (20-40) % [place] % (Auto) (2-11) % Eos % (Auto) (0-4) % Baso % (Auto) (0-2) % Lymph # (Auto) (1.2-4.9) X10*3/uL [place] # (Auto) (0.1-1.2) X10*3/uL Eos # (Auto) (0.0-0.4) X10*3/uL Baso # (Auto) (0.0-0.2) X10*3/uL Abs Immat Gran (auto) (0.00-0.03) X10*3/uL Absolute Neuts (auto) (2.0-8.3) x10*3/uL Absolute Nucleated RBC (0.0-0.012) X10*3/uL Nucleated RBC % (auto) (0.0-0.2) /100WBC Sodium 145 (135-145) mmol/L Potassium 4.2 (3.3-5.1) mmol/L Chloride 107 (96-108) mmol/L Carbon Dioxide 27 (22-29) mmol/L Anion Gap 15 (12-20) BUN 16 (9-16) mg/dL Creatinine 1.10 (0.5-1.4) mg/dL Estim Creat Clear Calc 48.8 Estimated GFR > 60 Random Glucose 95 (60-115) mg/dL Calcium 9.2 D (8.4-10.2) mg/dL Total Bilirubin 0.4 (0.0-1.0) mg/dL Direct Bilirubin 0.2 (0.0-0.5) mg/dL AST 22 (5-37) U/L ALT 22 (0-40) U/L Alkaline Phosphatase 66 (39-117) U/L Troponin I High Sens 11.3 (<3.5-35.0) ng/L Total Protein 6.1 L (6.5-8.0) g/dL Albumin 3.9 (3.5-5.0) g/dL COVID-19 (FERMIN) (Negative) COVID-19 Clin Com S. pyogenes GrpA AMARA (Negative) Discharge Plan Discharge Clinical Impression: COVID-19 Patient Disposition: Home, Self-Care Instructions: COVID-19 (Coronavirus Disease 2019) (ED) Prescriptions: No Action Breo Ellipta 200-25 mcg/dose blister with device 1 ea inhalation DAILY Qty: 60 2RF ascorbate calcium (vitamin C) 500 mg tablet 500 mg PO DAILY 90 Days Qty: 90 3RF ferrous sulfate 325 mg (65 mg iron) tablet,delayed release (DR/EC) 325 mg PO DAILY 90 Days Qty: 90 3RF cyanocobalamin (vitamin B-12) 1,000 mcg capsule 1,000 mcg PO BEDTIME 90 Days Qty: 90 3RF furosemide 40 mg tablet 40 mg PO DAILY Qty: 90 1RF tamsulosin 0.4 mg capsule 0.4 mg PO DAILY 90 Days Qty: 90 3RF verapamil 180 mg capsule,ext rel. pellets 24 hr 180 mg PO DAILY Qty: 90 3RF losartan 100 mg tablet 100 mg PO DAILY Qty: 90 0RF sucralfate 100 mg/mL suspension 10 ml PO BEDTIME Qty: 400 0RF sennosides [Senokot] 8.6 mg tablet 8.6 mg PO DAILY Qty: 30 6RF tramadol 50 mg tablet 50 mg PO TID PRN (Reason: pain (scale score 4-6)) 7 Days Qty: 21 0RF Xarelto 20 mg tablet 20 mg PO DAILY Qty: 90 1RF Rx Instructions: must administer with evening meal appropriate dose for current kidney function pantoprazole 40 mg tablet,delayed release (DR/EC) 40 mg PO DAILY Qty: 90 0RF atorvastatin 80 mg tablet 80 mg PO BEDTIME carvedilol 25 mg tablet 25 mg PO BID Citrucel 500 mg tablet 500 mg PO DAILY Qty: 30 2RF Rx Instructions: take it with full glass of water simethicone [Gas Relief (simethicone)] 125 mg capsule 125 mg PO TID-QID PRN (Reason: abdominal distention) Qty: 120 2RF Linzess 145 mcg capsule 145 mcg PO DAILY Qty: 90 2RF Referrals: Arti Catalan, [employer] [Primary Care Provider] -
[2021-11-14 03:48] VITALS: BP 154/74; PULSE 67; RESP 12; O2SAT 98
[2021-11-14 04:12] LABS: Basophils Percent Auto 0.3 % (0-2); Eosinophils Absolute Auto 0.2 X10*3/uL (0.0-0.4); Eosinophils Percent Auto 1.6 % (0-4); Hematocrit 38.3 % (42.0-52.0); Hemoglobin 12.4 g/dl (14.0-18.0); Imm Gran Abs Auto 0.04 X10*3/uL (0.00-0.03); Imm Gran Pct Auto 0.4 % (0.0-0.4); Lymphocytes Absolute Auto 1.9 X10*3/uL (1.2-4.9); Lymphocytes Percent Auto 19.6 % (20-40); MANUAL DIFF FLAG NO; Mean Corpuscular HGB Conc 32.4 g/dl (31.0-36.0); Mean Corpuscular Hemoglobin 29.2 pg (27.0-33.0); Mean Corpuscular Volume 90.1 fL (80.0-98.0); Mean Platelet Volume 9.7 fL (9.4-12.4); Monocytes Absolute Auto 0.9 X10*3/uL (0.1-1.2); Monocytes Percent Auto 8.9 % (2-11); Neutrophils Absolute Auto 6.6 x10*3/uL (2.0-8.3); Neutrophils Percent Auto 69.2 % (45-73); Platelet Count 167 X10*3/uL (160-400); Red Blood Count 4.25 X10*6/uL (4.60-5.80); Red Cell Distribution Width 13.3 % (11.0-16.0); White Blood Count 9.6 X10*3/uL (4.8-10.8)
[2021-11-14 04:18] LABS: COVID-19 Test Positive (Negative); IDNOW Serial# 16C4AD1C; Strep A Nucleic Acid Negative (Negative)
[2021-11-14 04:32] LABS: Alanine Aminotransferase 22 U/L (0-40); Albumin Level 3.9 g/dL (3.5-5.0); Alkaline Phosphatase 66 U/L (39-117); Anion Gap 15 (12-20); Aspartate Amino Transferase 22 U/L (5-37); Bilirubin Direct 0.2 mg/dL (0.0-0.5); Bilirubin Total 0.4 mg/dL (0.0-1.0); Blood Urea Nitrogen 16 mg/dL (9-16); Calcium 9.2 mg/dL (8.4-10.2); Carbon Dioxide 27 mmol/L (22-29); Chloride 107 mmol/L (96-108); Creatinine Clr Calc Pharmacy 48.8; Estimated Glomerular Filt Rate > 60; Glucose Random 95 mg/dL (60-115); Potassium 4.2 mmol/L (3.3-5.1); Sodium 145 mmol/L (135-145); Total Protein 6.1 g/dL (6.5-8.0)
[2021-11-14 04:35] LABS: Troponin-I High Sensitivity 11.3 ng/L (<3.5-35.0)
[2021-11-14] MEDS: iohexoL 350 MG/ML 100 ML INFUS..BTL IV (04:53)
--- NOTE | 2021-11-14 05:45 | PC.NURSE ---
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 There are no trucks available
[2021-11-14 06:00] VITALS: BP 139/68; PULSE 69; RESP 18; O2SAT 96
--- NOTE | 2021-11-14 07:55 | PC.NURSE ---
call was placed to [facility] at 0710 to book a ride home. [facility] stated they are going to try for 9, 9:30 carla.
--- NOTE | 2021-11-14 09:55 | PC.NURSE ---
call was placed to [facility] at 0955 . Justin from [facility] said within the hour.
--- NOTE | 2021-11-14 11:21 | PC.NURSE ---
call was placed at 1121 to [facility] to find out when transportation will happen . [facility] stated they will give us a call when transport is in route.
== END 2021-11-14 12:51 | disposition home or self-care (01) ==
PROVIDERS: Emergency Provider Emergency Medicine Emergency Medical Services; PCP Registered Nurse
DX: U07.1 COVID-19 (principal); I48.91 Unspecified atrial fibrillation; M54.2 Cervicalgia; Z79.01 Long term (current) use of anticoagulants; Z79.899 Other long term (current) drug therapy; Z87.891 Personal history of nicotine dependence
CPT/HCPCS: 36415; 70491; 71045; 80048; 80076; 84484; 85025; 87635; 87651; 93005; 99284; Q9967

== ENCOUNTER 2021-11-14 18:59 | Observation (INO) | payer OTHER, SELFPAY ==
--- NOTE | ~2021-11-14 | XR_ITS ---
EXAMINATION: XR CHEST CLINICAL INFORMATION: Covid positive COMPARISON: Chest x-ray 11/14/2021 at 4:00 AM TECHNIQUE: Frontal view of the chest was obtained. FINDINGS: Stable mild enlargement of the cardiac silhouette. Atherosclerotic disease of the aortic arch. Lungs are adequately aerated. Similar diffuse coarsening of the interstitial markings. No gross lobar consolidation. No large pleural effusion. No pneumothorax. Severe degenerative versus posttraumatic changes of the right shoulder. XR/XR chest 1V IMPRESSION: Stable examination demonstrating diffuse coarsening of the interstitial markings without lobar consolidation.
[2021-11-14 19:24] VITALS: BP 167/64; PULSE 67; RESP 20; TEMP 39.6; O2SAT 96; BMI 38.9
--- NOTE | 2021-11-14 19:26 | ECG_ITS ---
Test Reason : ALTERED MENTAL Blood Pressure : / mmHG Vent. Rate : 065 BPM Atrial Rate : 108 BPM P-R Int : 000 ms QRS Dur : 120 ms QT Int : 426 ms P-R-T Axes : 000 -15 068 degrees QTc Int : 443 ms Sinus rhythm with 2nd degree A-V block ([place]ob[place] I) Right bundle branch block Abnormal ECG When compared with ECG of 14-NOV-2021 03:43, Sinus rhythm is now with 2nd degree A-V block ([place]obitz I) Borderline criteria for Lateral infarct are no longer Present Borderline criteria for Inferior infarct are no longer Present Referred By: Anupam Dickens Electronically Signed By:MICHAEL CARABALLO
--- NOTE | 2021-11-14 19:26 | ED.AMS ---
HPI - Altered Mental Status General Chief Complaint: Altered Mental Status Stated Complaint: Confusion Time Seen by Provider: 11/14/21 19:21 Related Data Home Medications Medication Instructions Recorded Confirmed atorvastatin 80 mg tablet 80 mg PO BEDTIME 06/03/20 10/23/21 carvedilol 25 mg tablet 25 mg PO BID 12/04/20 10/23/21 Previous Rx's Medication Instructions Recorded fluticasone furoate 200 1 ea inhalation DAILY #60 ea 07/05/20 mcg-vilanterol 25 mcg/dose inhalation powder (Breo Ellipta) simethicone 125 mg capsule (Gas 125 mg PO TID-QID PRN abdominal 07/30/20 Relief (simethicone)) distention #120 caps ascorbate calcium (vitamin C) 500 500 mg PO DAILY 90 days #90 tabs 08/17/20 mg tablet cyanocobalamin (vitamin B-12) 1,000 mcg PO BEDTIME 90 days #90 09/13/20 1,000 mcg capsule caps ferrous sulfate 325 mg (65 mg 325 mg PO DAILY 90 days #90 tabs 09/13/20 iron) tablet,delayed release methylcellulose (laxative) 500 mg 500 mg PO DAILY #30 tabs 12/04/20 tablet (Citrucel) furosemide 40 mg tablet 40 mg PO DAILY #90 tabs 03/11/21 tamsulosin 0.4 mg capsule 0.4 mg PO DAILY 90 days #90 caps 03/29/21 verapamil 180 mg 24 hr 180 mg PO DAILY #90 caps 03/29/21 capsule,extended release losartan 100 mg tablet 100 mg PO DAILY #90 tabs 07/02/21 sucralfate 100 mg/mL oral 10 ml PO BEDTIME #400 mL 07/11/21 suspension linaclotide 145 mcg capsule 145 mcg PO DAILY #90 caps 07/15/21 (Linzess) sennosides 8.6 mg tablet (Senokot) 8.6 mg PO DAILY #30 tabs 07/19/21 tramadol 50 mg tablet 50 mg PO TID PRN pain (scale score 08/05/21 4-6) 7 days #21 tabs rivaroxaban 20 mg tablet (Xarelto) 20 mg PO DAILY #90 tabs 08/16/21 pantoprazole 40 mg tablet,delayed 40 mg PO DAILY #90 tabs 10/27/21 release Allergies Allergy/AdvReac Type Severity Reaction Status Date / Time dabigatran etexilate Allergy Intermediate ITCHING Verified 11/14/21 03:02 [From PRADAXA] JORGE L Inhibitors Allergy Mild UNKNOWN, Verified 11/14/21 03:02 [Jorge L Inhibitors] FOUND IN MEDICAL RECORD 04/[address] GIPSON ezetimibe [From Zetia] Allergy Mild ANAPHYLAXIS Verified 11/14/21 03:02 apixaban [From ELIQUIS] Allergy Unknown UNKNOWN, Verified 11/14/21 03:02 rash rosuvastatin [Crestor] Allergy Unknown myalgia Verified 11/14/21 03:02 Review of Systems Review of Systems: Review of systems: General: Patient denies any fever chills recent illness or falls Musculoskeletal: Denies back pain or body aches or other injuries HEENT: denies headache, runny nose, ear pain Respiratory: denies shortness of breath, cough Cardiovascular: no chest pain or palpitations : denies dysuria, frequency Abdomen: no nausea vomiting denies abdominal pain Extremities: no swelling, no pain Skin: no diaphoresis Yes all other systems are reviewed and are negative PMFSH Past Medical History Attestation statement: The following information was validated with the patient. Medical History Acute respiratory failure with hypoxia Afib Anemia Anxiety and depression ARDS (adult respiratory distress syndrome) BPH (benign prostatic hyperplasia) Cholecystitis Chronic abdominal pain Constipation COPD (chronic obstructive pulmonary disease) COVID-19 virus infection Current use of anticoagulant therapy Diastolic CHF, acute on chronic Diverticulitis Frequency of micturition GERD (gastroesophageal reflux disease) Headache History of CVA (cerebrovascular accident) History of rib fracture Hypercholesterolemia Hypertension Hypertrophic cardiomyopathy Hypogammaglobulinemia Meningioma Obesity (BMI 30-39.9) Obstructive sleep apnea Paroxysmal atrial fibrillation Peripheral neuropathy Peripheral vascular disease Polyarthralgia Primary osteoarthritis of right knee Protrusion of lumbar intervertebral disc Tear of medial meniscus of knee Urinary incontinence Surgical History H/O colonoscopy History of left knee replacement History of tonsillectomy History of total right hip replacement History of transurethral resection of prostate Family History Family History Father No problems noted. Mother Hx of type 1 diabetes mellitus Social History Social History Household Members: Spouse Housing: House Do you presently have visiting nurse or other home services: No Alcohol intake: never Patient Tobacco Use Status: Former Tobacco user Years Smoked: 30 yrs ago Second Hand Smoke Exposure: No Advance Directives: Yes Advance Directives Information Provided: No Advance Directives on File: Yes Advance Directives Date on File: 04/06/20 service: No Current occupational status: unemployed and retired Current occupation: Right Handed Physical Exam ED Vital Signs: Vital Signs - 24 hr 11/14/21 19:24 Temperature 103.2 F H Pulse Rate 67 Respiratory Rate 20 Blood Pressure 167/64 H Pulse Oximetry 96 Oxygen Delivery Method Room Air BMI result Body Mass Index 38.9 Neurological exam: CN II- XII tested. Patient is alert and oriented to person place and time. Patient has no dysphagia or dysarthia, denies good vision in all four vision leung no nystagmus on exam, good strength to upper and lower extremities with normal reflexes to brachioradialis, wrist, patella and achilles.? Negative romberg, good finger to nose and heel to chen.?? General: Well-appearing well-nourished in no signs of distress HEENT: Normocephalic atraumatic? Neck: No signs of JVD, no masses no tenderness or lymphadenopathy Cardiovascular: Regular rate and rhythm Respiratory: Clear to auscultation bilaterally Abdomen: Soft nontender no masses Extremities: Normal pedal pulses no signs of edema Skin: Dry warm no rashes Back: No tenderness full ROM NIH Stroke Scale Internal: Initial- Upon Arrival Level of Consciousness: Alert Level of Consciousness Questions: Answers both questions correctly Level of Consciousness Commands: Performs both tasks correctly Best Gaze: Normal Visual: No visual loss Facial Palsy: Normal Motor Arm (Right): No drift Motor Arm (Left): No drift Motor Leg (Right): No drift Motor Leg (Left): No drift Limb Ataxia: Absent Sensory: Normal Best Language: No aphasia Dysarthia: Normal Extinction and Inattention: No abnormality Score: 0 MDM - Altered Mental Status MDM Narrative Medical decision making narrative: Patient is COVID positive as of this morning patient does have a fever here old comes time also ibuprofen I would repeat an x-ray and repeat labs I see the patient ambulance I am unsure if the patient may require admission. He is not a candidate for Paxil that and was safe to go home earlier today. 2119 Patient still alterd I will admit with doxycycline is 85 and getting worse with AMS, weakness worsening liver function tests and creatinine. Differential Diagnosis Differential diagnosis: Likely altered mental status, delirium, dementia, encephalopathy, hypoglycemia, renal failure and sepsis Medical Records Attestation: I reviewed the patient's medical records. Lab Data Attestation: I reviewed the patient's lab results. Result diagrams: 11/14/21 20:11/14/21 20:23 Labs: Lab Results 11/14/21 11/14/21 11/14/21 Range/Units 20: 20: 20:25 WBC 13.5 H (4.8-10.8) X10*3/uL RBC 4.51 L (4.60-5.80) X10*6/uL Hgb 13.1 L (14.0-18.0) g/dl Hct 39.9 L (42.0-52.0) % MCV 88.5 (80.0-98.0) fL MCH 29.0 (27.0-33.0) pg MCHC 32.8 (31.0-36.0) g/dl RDW 13.3 (11.0-16.0) % Plt Count 186 (160-400) X10*3/uL MPV 10.0 (9.4-12.4) fL Immature Gran % (Auto) 0.4 (0.0-0.4) % Neut % (Auto) 71.4 (45-73) % Lymph % (Auto) 17.1 L (20-40) % [place] % (Auto) 10.7 (2-11) % Eos % (Auto) 0.1 (0-4) % Baso % (Auto) 0.3 (0-2) % Lymph # (Auto) 2.3 (1.2-4.9) X10*3/uL [place] # (Auto) 1.4 H (0.1-1.2) X10*3/uL Eos # (Auto) 0.0 (0.0-0.4) X10*3/uL Baso # (Auto) 0.0 (0.0-0.2) X10*3/uL Abs Immat Gran (auto) 0.06 H (0.00-0.03) X10*3/uL Absolute Neuts (auto) 9.6 H (2.0-8.3) x10*3/uL Absolute Nucleated RBC 0.000 (0.0-0.012) X10*3/uL Nucleated RBC % (auto) 0.0 (0.0-0.2) /100WBC Sodium 142 (135-145) mmol/L Potassium 4.3 (3.3-5.1) mmol/L Chloride 105 (96-108) mmol/L Carbon Dioxide 24 (22-29) mmol/L Anion Gap 17 (12-20) BUN 20 H (9-16) mg/dL Creatinine 1.25 (0.5-1.4) mg/dL Estim Creat Clear Calc 44.4 Estimated GFR 55 Random Glucose 116 H (60-115) mg/dL Calcium 9.0 (8.4-10.2) mg/dL Total Bilirubin 0.5 (0.0-1.0) mg/dL Direct Bilirubin 0.2 (0.0-0.5) mg/dL AST 64 H (5-37) U/L ALT 42 H (0-40) U/L Alkaline Phosphatase 78 (39-117) U/L Total Protein 6.2 L (6.5-8.0) g/dL Albumin 3.9 (3.5-5.0) g/dL Lipase 21 (8-78) U/L Urine Color Yellow Urine Appearance Clear Urine pH 6.5 (5.0-9.0) Ur Specific [place] 1.020 (1.005-1.025) Urine Protein Trace (Neg-Trace) mg/dL Urine Glucose (UA) Negative (Negative) mg/dL Urine Ketones Negative (Negative) mg/dL Urine Blood Small (1+) H (Negative) Urine Nitrite Negative (Negative) Ur Leukocyte Esterase Trace H (Negative) Urine RBC 6-10 H (0-2) /HPF Urine WBC 0-5 (0-5) /HPF Ur Squamous Epith Cells 0-2 (0-2) /HPF Urine Bacteria None Seen (None Seen) Hyaline Casts 0-2 (0-2) /LPF ECG Data ECG #1: Attestation: I personally reviewed and interpreted this ECG as follows: Interpretation: RAte 52 sinus bradycardia no signs of ischemia Discharge Plan Discharge Clinical Impression: Current use of anticoagulant therapy, COPD (chronic obstructive pulmonary disease), COVID-19, Altered mental status, Acute kidney failure Patient Disposition: Admitted As Inpatient
[2021-11-14] MEDS: Acetaminophen 325 MG TABLET 650 MG PO (20:11)
[2021-11-14] MEDS: Ibuprofen 400 MG TABLET PO (20:11)
[2021-11-14] MEDS: 0.9 % Sodium Chloride 1,000 ML 999 ML IV ×3 (20:29→23:29)
[2021-11-14 20:30] LABS: MANUAL DIFF FLAG NO
[2021-11-14 20:33] LABS: Basophils Percent Auto 0.3 % (0-2); Eosinophils Percent Auto 0.1 % (0-4); Hematocrit 39.9 % (42.0-52.0); Hemoglobin 13.1 g/dl (14.0-18.0); Imm Gran Abs Auto 0.06 X10*3/uL (0.00-0.03); Imm Gran Pct Auto 0.4 % (0.0-0.4); Lymphocytes Absolute Auto 2.3 X10*3/uL (1.2-4.9); Lymphocytes Percent Auto 17.1 % (20-40); Mean Corpuscular HGB Conc 32.8 g/dl (31.0-36.0); Mean Corpuscular Volume 88.5 fL (80.0-98.0); Monocytes Absolute Auto 1.4 X10*3/uL (0.1-1.2); Monocytes Percent Auto 10.7 % (2-11); Neutrophils Absolute Auto 9.6 x10*3/uL (2.0-8.3); Neutrophils Percent Auto 71.4 % (45-73); Platelet Count 186 X10*3/uL (160-400); Red Blood Count 4.51 X10*6/uL (4.60-5.80); Red Cell Distribution Width 13.3 % (11.0-16.0); White Blood Count 13.5 X10*3/uL (4.8-10.8)
[2021-11-14 20:33] LABS: Appearance Urine Clear; Color Urine Yellow; Glucose Urine UA Negative (Negative); Leukocyte Esterase Urine Trace (Negative); Nitrite Urine Negative (Negative); PH 6.5 (5.0-9.0); UMIC TRIGGER UACC YES; Urine Blood Small (1+) (Negative); Urine Ketones Negative (Negative); Urine Protein Trace mg/dL (Neg-Trace)
[2021-11-14 20:38] LABS: Bacteria Urine None Seen (None Seen); Hyaline Casts Urine 0-2 /LPF (0-2); Squamous Epithelial Cell Urine 0-2 /HPF (0-2); WBC Urine 0-5 /HPF (0-5)
[2021-11-14 20:52] LABS: Alanine Aminotransferase 42 U/L (0-40); Albumin Level 3.9 g/dL (3.5-5.0); Alkaline Phosphatase 78 U/L (39-117); Anion Gap 17 (12-20); Aspartate Amino Transferase 64 U/L (5-37); Bilirubin Direct 0.2 mg/dL (0.0-0.5); Bilirubin Total 0.5 mg/dL (0.0-1.0); Blood Urea Nitrogen 20 mg/dL (9-16); Carbon Dioxide 24 mmol/L (22-29); Chloride 105 mmol/L (96-108); Creatinine Clr Calc Pharmacy 44.4; Estimated Glomerular Filt Rate 55; Glucose Random 116 mg/dL (60-115); Lipase 21 U/L (8-78); Potassium 4.3 mmol/L (3.3-5.1); Sodium 142 mmol/L (135-145); Total Protein 6.2 g/dL (6.5-8.0)
[2021-11-14 21:48] VITALS: BP 142/67; PULSE 90; RESP 20; TEMP 37.7; O2SAT 96
[2021-11-14] MEDS: dexAMETHasone sod phosphate 10 MG/ML VIAL IVPUSH (21:49)
--- NOTE | 2021-11-14 22:26 | PM.IMHP ---
History of Present Illness Date of Service: 11/14/21 Chief Complaint: Altered mental status This is a 85-year-old male with a pertinent history of prior CVA, paroxysmal atrial fibrillation on anticoagulation, benign prostatic hyperplasia, essential hypertension, gastroesophageal reflux disease who was brought to the emergency department for confusion. Patient tested positive for COVID-19 infection earlier in the day and was discharged with symptomatic treatment. As per chart history, patient was brought to the ER for evaluation of confusion. At the time of my evaluation, patient does not know why he was brought to the ER. He does endorse dry cough and upper respiratory tract symptoms for the last 24-48 hours. He has received for vaccinations for COVID-19. No sick contacts. He denies fever, chills, chest discomfort, shortness of breath, palpitations, abdominal discomfort, changes in urinary or bowel habits. Review of Systems Review of Systems: All 13 review of systems are negative except as noted in HPI [facility] Medical History Acute respiratory failure with hypoxia Afib Anemia Anxiety and depression ARDS (adult respiratory distress syndrome) BPH (benign prostatic hyperplasia) Cholecystitis Chronic abdominal pain Constipation COPD (chronic obstructive pulmonary disease) COVID-19 virus infection Current use of anticoagulant therapy Diastolic CHF, acute on chronic Diverticulitis Frequency of micturition GERD (gastroesophageal reflux disease) Headache History of CVA (cerebrovascular accident) History of rib fracture Hypercholesterolemia Hypertension Hypertrophic cardiomyopathy Hypogammaglobulinemia Meningioma Obesity (BMI 30-39.9) Obstructive sleep apnea Paroxysmal atrial fibrillation Peripheral neuropathy Peripheral vascular disease Polyarthralgia Primary osteoarthritis of right knee Protrusion of lumbar intervertebral disc Tear of medial meniscus of knee Urinary incontinence Family History Father No problems noted. Mother Hx of type 1 diabetes mellitus Surgical History H/O colonoscopy History of left knee replacement History of tonsillectomy History of total right hip replacement History of transurethral resection of prostate Social History Household Members: Spouse Housing: House Do you presently have visiting nurse or other home services: No Alcohol intake: never Patient Tobacco Use Status: Former Tobacco user Years Smoked: 30 yrs ago Second Hand Smoke Exposure: No Advance Directives: Yes Advance Directives Information Provided: No Advance Directives on File: Yes Advance Directives Date on File: 04/06/20 service: No Current occupational status: unemployed and retired Current occupation: Right Handed Meds Allergies Allergy/AdvReac Type Severity Reaction Status Date / Time dabigatran etexilate Allergy Intermediate ITCHING Verified 11/14/21 03:02 [From PRADAXA] JORGE L Inhibitors Allergy Mild UNKNOWN, Verified 11/14/21 03:02 [Jorge L Inhibitors] FOUND IN MEDICAL RECORD 04/[address] GIPSON ezetimibe [From Zetia] Allergy Mild ANAPHYLAXIS Verified 11/14/21 03:02 apixaban [From ELIQUIS] Allergy Unknown UNKNOWN, Verified 11/14/21 03:02 rash rosuvastatin [Crestor] Allergy Unknown myalgia Verified 11/14/21 03:02 Active Medications: Current Medications Acetaminophen (Acetaminophen 325 Mg Tablet) 650 mg PO Q6H PRN PRN Reason: Pain, Mild (Pain Scale 1-3) Sodium Chloride (Ns) 1,000 mls @ 999 mls/hr IV .Q1H1M ONE Stop: 11/14/21 23:24 Melatonin (Melatonin 3 Mg Tablet) 6 mg PO BEDTIME PRN PRN Reason: Insomnia Ondansetron HCl (Ondansetron Hcl 4 Mg/2 Ml Vial) 4 mg IVPUSH Q8H PRN PRN Reason: Nausea and Vomiting Pharmacy Consult (Consult Rx Perform Med Rec) 1 each MISCELLANE ONCE STA Stop: 11/14/21 21:45 Sodium Chloride (0.9 % Sodium Chloride Flush 3 Ml Syringe) 3 ml IVFLUSH [facility] Medications Medication Instructions Recorded Confirmed Last Taken Type atorvastatin 80 mg tablet 80 mg PO BEDTIME 06/03/20 11/14/21 07/09/10 History carvedilol 25 mg tablet 25 mg PO BID 12/04/20 11/14/21 Unknown History potassium chloride 10 mEq 1 tab PO BID 11/14/21 11/14/21 Unknown History tablet,extended release Physical Exam Vital Signs and Narrative: Vital Signs: Last Vital Signs Temp 99.9 F 11/14/21 21:48 Pulse 90 11/14/21 21:48 Resp 20 11/14/21 21:48 BP 142/67 H 11/14/21 21:48 Pulse Ox 96 09/22/22 21:48 O2 Del Method 11/14/21 21:48 BMI result Body Mass Index 38.9 Elderly male lying in ER bed in no distress Neck supple, no JVD Regular rate and rhythm, S1-S2 heard Bilateral crackles without wheezing Abdomen soft nontender, no guarding, no rigidity Patient is awake, alert and oriented to self, place, disoriented to time ; no focal motor deficit Psych: Normal mood No pedal edema Results Labs CBC and Chem 7: 11/14/21 20:23 11/14/21 20:23 Labs: Laboratory Results - last 24 hr 11/14/21 11/14/21 11/14/21 20:23 20:23 20:25 MCV 88.5 MCH 29.0 MCHC 32.8 RDW 13.3 Plt Count 186 MPV 10.0 Immature Gran % (Auto) 0.4 Neut % (Auto) 71.4 Lymph % (Auto) 17.1 L [place] % (Auto) 10.7 Eos % (Auto) 0.1 Baso % (Auto) 0.3 Lymph # (Auto) 2.3 [place] # (Auto) 1.4 H Eos # (Auto) 0.0 Baso # (Auto) 0.0 Abs Immat Gran (auto) 0.06 H Absolute Neuts (auto) 9.6 H Absolute Nucleated RBC 0.000 Nucleated RBC % (auto) 0.0 Anion Gap 17 Estim Creat Clear Calc 44.4 Estimated GFR 55 Random Glucose 116 H Calcium 9.0 Total Bilirubin 0.5 Direct Bilirubin 0.2 AST 64 H ALT 42 H Alkaline Phosphatase 78 Total Protein 6.2 L Albumin 3.9 Lipase 21 Urine Color Yellow Urine Appearance Clear Urine pH 6.5 Ur Specific [place] 1.020 Urine Protein Trace Urine Glucose (UA) Negative Urine Ketones Negative Urine Blood Small (1+) H Urine Nitrite Negative Ur Leukocyte Esterase Trace H Urine RBC 6-10 H Urine WBC 0-5 Ur Squamous Epith Cells 0-2 Urine Bacteria None Seen Hyaline Casts 0-2 Imaging Radiologist's Impressions: Impressions Chest X-Ray 11/14/21 19:47 IMPRESSION: Stable examination demonstrating diffuse coarsening of the interstitial markings without lobar consolidation. Assessment and Plan (1) Sepsis: Status: Acute (2) Encephalopathy due to COVID-19 virus: Status: Acute (3) COVID-19 virus infection: Status: Acute (4) Paroxysmal atrial fibrillation: Status: Acute (5) Hypertension: Qualifiers: Hypertension type: essential hypertension Qualified Code(s): I10 - Essential (primary) hypertension Status: Acute (6) Hypercholesterolemia: Status: Acute (7) History of CVA (cerebrovascular accident): Status: Acute (8) GERD (gastroesophageal reflux disease): Qualifiers: Esophagitis presence: esophagitis presence not specified Qualified Code(s): K21.9 - Gastro-esophageal reflux disease without esophagitis Status: Acute (9) COPD (chronic obstructive pulmonary disease): Status: Acute (10) BPH (benign prostatic hyperplasia): Qualifiers: Lower urinary tract symptom detail: urinary frequency Lower urinary tract symptom presence: symptoms present Qualified Code(s): N40.1 - Benign prostatic hyperplasia with lower urinary tract symptoms; R35.0 - Frequency of micturition Status: Acute Plan This is a 85-year-old male with a pertinent history of prior CVA, paroxysmal atrial fibrillation on anticoagulation, benign prostatic hyperplasia, essential hypertension, gastroesophageal reflux disease who was brought to the emergency department for confusion. #. Encephalopathy due to COVID-19 infection, positive test date: 11/14/2021 #. Sepsis due to above -will admit for observation with airborne and contact precautions. Encephalopathy improving with IV fluid resuscitation. Blood cultures and lactic acid pending. No concern for secondary bacterial superinfection, hold off antibiotics. Patient is not hypoxemic and therefore no indication for Decadron. May discharge in a.m. if patient returns to baseline. #. BPH on Flomax #. COPD on fluticasone and vilanterol. No concern for exacerbation at the time of admission #. Paroxysmal atrial fibrillation -rate well controlled on admission. Continue Xarelto #. Gastroesophageal reflux disease -continue PPI #. Essential hypertension -continue home medications DVT prophylaxis: On Xarelto Code status: Full code Diet: Cardiac diet Will admit for observation to monitor mental status and resuscitate with IV crystalloids. Quality Stroke Does the patient have a stroke diagnosis?: No VTE Prior VTE?: No VTE Risk Level:: Medical - moderate - high VTE Device Contraindication: Treatment Not Indicated VTE Drug Contraindication: N/A - Med Ordered
[2021-11-14 22:28] LABS: Lactic Acid 0.8 mmol/L (0.5-2.0)
--- NOTE | 2021-11-14 22:28 | PHA.MEDREC ---
Pharmacy Consult ? Medication Reconciliation Pharmacy has completed the medication reconciliation.
[2021-11-14] MEDS: Tamsulosin HCL 0.4 MG CAPSULE PO (23:29)
[2021-11-15] VITALS (10 sets, daily range): BP systolic 121–167; BP diastolic 52–77; PULSE 49–79; RESP 16–20; TEMP 36.7–37.1; O2SAT 96–100
[2021-11-15 00:50] LABS: COVID-19 Test Positive (Negative); IDNOW Serial# 16C4AD1C
[2021-11-15] MEDS: Omeprazole 40 MG CAPSULE.DR PO (06:50)
[2021-11-15 08:22] LABS: MANUAL DIFF FLAG NO
[2021-11-15 08:25] LABS: Basophils Percent Auto 0.2 % (0-2); Hematocrit 38.2 % (42.0-52.0); Hemoglobin 12.4 g/dl (14.0-18.0); Imm Gran Abs Auto 0.09 X10*3/uL (0.00-0.03); Imm Gran Pct Auto 0.9 % (0.0-0.4); Lymphocytes Absolute Auto 1.3 X10*3/uL (1.2-4.9); Lymphocytes Percent Auto 12.8 % (20-40); Mean Corpuscular HGB Conc 32.5 g/dl (31.0-36.0); Mean Corpuscular Hemoglobin 28.9 pg (27.0-33.0); Mean Platelet Volume 9.9 fL (9.4-12.4); Monocytes Absolute Auto 0.2 X10*3/uL (0.1-1.2); Monocytes Percent Auto 1.6 % (2-11); Neutrophils Absolute Auto 8.2 x10*3/uL (2.0-8.3); Neutrophils Percent Auto 84.5 % (45-73); Platelet Count 157 X10*3/uL (160-400); Red Blood Count 4.29 X10*6/uL (4.60-5.80); Red Cell Distribution Width 13.5 % (11.0-16.0); White Blood Count 9.7 X10*3/uL (4.8-10.8)
[2021-11-15 08:42] LABS: Anion Gap 17 (12-20); Blood Urea Nitrogen 18 mg/dL (9-16); Calcium 8.5 mg/dL (8.4-10.2); Carbon Dioxide 20 mmol/L (22-29); Chloride 110 mmol/L (96-108); Creatinine Clr Calc Pharmacy 51.9; Estimated Glomerular Filt Rate > 60; Glucose Random 201 mg/dL (60-115); Potassium 3.8 mmol/L (3.3-5.1); Sodium 143 mmol/L (135-145)
[2021-11-15] MEDS: Losartan Potassium 50 MG TABLET 100 MG PO (09:15)
[2021-11-15] MEDS: carvediloL 25 MG TABLET PO ×2 (09:15→21:52)
[2021-11-15] MEDS: 0.9 % Sodium Chloride Flush 3 ML SYRINGE IVFLUSH ×2 (09:18→16:27)
--- NOTE | 2021-11-15 09:50 | P.PNIM_ITS ---
Subjective Subjective Date of Service: 11/15/21 Interval History: Seen in [place] for encephalopathy, covid interval history: confusion is better, no hypOxia Review of Systems Gen: no fever +confusion no sob Physical Exam Vital Signs: Vital Signs: Last Vital Signs Temp 98.2 F 11/15/21 07:29 Pulse 79 11/15/21 09:17 Resp 19 11/15/21 09:17 BP 148/67 H 11/15/21 09:17 Pulse Ox 99 11/15/21 09:17 O2 Del Method 11/15/21 09:17 BMI result Body Mass Index 38.9 Objective Data Active Medications Acetaminophen (Acetaminophen 325 Mg Tablet) 650 mg PO Q6H PRN PRN Reason: Pain, Mild (Pain Scale 1-3) Albuterol/Ipratropium (Albuterol/Iprat 2.5/0.5mg 3 Ml Ampul.Neb) 3 ml INHALE RQ4H PRN PRN Reason: Wheezing Atorvastatin Calcium (Atorvastatin Calcium 80 Mg Tablet) 80 mg PO BEDTIME [facility] Carvedilol (Carvedilol 25 Mg Tablet) 25 mg PO BID [facility]; Protocol Last Admin: 11/15/21 09:15 Dose: 25 mg Documented By: RIVER Fluticasone/Vilanterol (Fluticasone/Vilanterol 200/25 Blst.W.Dev) 1 puff INHALE RDAILY [facility] Losartan Potassium (Losartan Potassium 50 Mg Tablet) 100 mg PO DAILY [facility]; Protocol Last Admin: 11/15/21 09:15 Dose: 100 mg Documented By: RIVER Melatonin (Melatonin 3 Mg Tablet) 6 mg PO BEDTIME PRN PRN Reason: Insomnia Omeprazole (Omeprazole 40 Mg Capsule.Dr) 40 mg PO DAILY@0630 [facility] Last Admin: 11/15/21 06:50 Dose: 40 mg Documented By: NAZANIN Ondansetron HCl (Ondansetron Hcl 4 Mg/2 Ml Vial) 4 mg IVPUSH Q8H PRN PRN Reason: Nausea and Vomiting Rivaroxaban (Rivaroxaban 15 Mg Tablet) 15 mg PO DAILY [facility] Sodium Chloride (0.9 % Sodium Chloride Flush 3 Ml Syringe) 3 ml IVFLUSH QSHIFT [facility] Last Admin: 11/15/21 09:18 Dose: 3 ml Documented By: RIVER Tamsulosin HCl (Tamsulosin Hcl 0.4 Mg Capsule) 0.4 mg PO BEDTIME [facility] Last Admin: 11/14/21 23:29 Dose: 0.4 mg Documented By: NAZANIN Verapamil HCl (Verapamil Hcl Sr 180 Mg Tablet.Er) 180 mg PO DAILY [facility]; Protocol Labs CBC & Chem 7: 11/15/21 08:08 11/15/21 08:08 Labs: Laboratory Results - last 24 hr 11/14/21 11/14/21 11/14/21 20:23 20:23 20:25 MCV 88.5 MCH 29.0 MCHC 32.8 RDW 13.3 Plt Count 186 MPV 10.0 Immature Gran % (Auto) 0.4 Neut % (Auto) 71.4 Lymph % (Auto) 17.1 L [place] % (Auto) 10.7 Eos % (Auto) 0.1 Baso % (Auto) 0.3 Lymph # (Auto) 2.3 [place] # (Auto) 1.4 H Eos # (Auto) 0.0 Baso # (Auto) 0.0 Abs Immat Gran (auto) 0.06 H Absolute Neuts (auto) 9.6 H Absolute Nucleated RBC 0.000 Nucleated RBC % (auto) 0.0 Anion Gap 17 Estim Creat Clear Calc 44.4 Estimated GFR 55 Random Glucose 116 H Lactic Acid Calcium 9.0 Total Bilirubin 0.5 Direct Bilirubin 0.2 AST 64 H ALT 42 H Alkaline Phosphatase 78 Total Protein 6.2 L Albumin 3.9 Lipase 21 Urine Color Yellow Urine Appearance Clear Urine pH 6.5 Ur Specific [place] 1.020 Urine Protein Trace Urine Glucose (UA) Negative Urine Ketones Negative Urine Blood Small (1+) H Urine Nitrite Negative Ur Leukocyte Esterase Trace H Urine RBC 6-10 H Urine WBC 0-5 Ur Squamous Epith Cells 0-2 Urine Bacteria None Seen Hyaline Casts 0-2 COVID-19 (FERMIN) COVID-19 Clin Com 11/14/21 11/15/21 11/15/21 22:06 00:31 08:08 MCV 89.0 MCH 28.9 MCHC 32.5 RDW 13.5 Plt Count 157 L MPV 9.9 Immature Gran % (Auto) 0.9 H Neut % (Auto) 84.5 H Lymph % (Auto) 12.8 L [place] % (Auto) 1.6 L Eos % (Auto) 0.0 Baso % (Auto) 0.2 Lymph # (Auto) 1.3 [place] # (Auto) 0.2 Eos # (Auto) 0.0 Baso # (Auto) 0.0 Abs Immat Gran (auto) 0.09 H Absolute Neuts (auto) 8.2 Absolute Nucleated RBC 0.000 Nucleated RBC % (auto) 0.0 Anion Gap Estim Creat Clear Calc Estimated GFR Random Glucose Lactic Acid 0.8 Calcium Total Bilirubin Direct Bilirubin AST ALT Alkaline Phosphatase Total Protein Albumin Lipase Urine Color Urine Appearance Urine pH Ur Specific [place] Urine Protein Urine Glucose (UA) Urine Ketones Urine Blood Urine Nitrite Ur Leukocyte Esterase Urine RBC Urine WBC Ur Squamous Epith Cells Urine Bacteria Hyaline Casts COVID-19 (FERMIN) Positive A COVID-19 Clin Com See Note 11/15/21 08:08 MCV MCH MCHC RDW Plt Count MPV Immature Gran % (Auto) Neut % (Auto) Lymph % (Auto) [place] % (Auto) Eos % (Auto) Baso % (Auto) Lymph # (Auto) [place] # (Auto) Eos # (Auto) Baso # (Auto) Abs Immat Gran (auto) Absolute Neuts (auto) Absolute Nucleated RBC Nucleated RBC % (auto) Anion Gap 17 Estim Creat Clear Calc 51.9 Estimated GFR > 60 Random Glucose 201 H D Lactic Acid Calcium 8.5 Total Bilirubin Direct Bilirubin AST ALT Alkaline Phosphatase Total Protein Albumin Lipase Urine Color Urine Appearance Urine pH Ur Specific [place] Urine Protein Urine Glucose (UA) Urine Ketones Urine Blood Urine Nitrite Ur Leukocyte Esterase Urine RBC Urine WBC Ur Squamous Epith Cells Urine Bacteria Hyaline Casts COVID-19 (FERMIN) COVID-19 Clin Com Assessment and Plan (1) COVID-19 virus infection: Status: Acute (2) Encephalopathy due to COVID-19 virus: Status: Acute (3) Sepsis: Status: Acute Plan This is a 85-year-old male with a pertinent history of prior CVA, paroxysmal atrial fibrillation on anticoagulation, benign prostatic hyperplasia, essential hypertension, gastroesophageal reflux disease who was brought to the emergency department for confusion. #. Encephalopathy due to COVID-19 infection, positive test date: 11/14/2021 #. Viral Sepsis due to above - Encephalopathy improving with IV fluid resuscitation. Blood cultures pending. No concern for secondary bacterial superinfection at this time , hold off antibiotics. Patient is not hypoxemic and therefore no indication for Decadron. May discharge in a.m. if patient returns to baseline. #. BPH on Flomax #. COPD on fluticasone and vilanterol. No concern for exacerbation at the time of admission #. Paroxysmal atrial fibrillation -rate well controlled on admission. Continue Xarelto #. Gastroesophageal reflux disease -continue PPI #. Essential hypertension -continue home medications DVT prophylaxis: On Xarelto Code status: Full code Diet: Cardiac diet Need for inpatient: Encephalopathy due to covid, viral sepsis need close observation for deterioration and hydration Quality Stroke Does the patient have a stroke diagnosis?: No VTE Prior VTE?: No VTE Risk Level:: Medical - moderate - high VTE Device Contraindication: Treatment Not Indicated VTE Drug Contraindication: N/A - Med Ordered
[2021-11-15] MEDS: VerapamiL HCL SR 180 MG TABLET.ER PO (10:01)
[2021-11-15] MEDS: Rivaroxaban 15 MG TABLET PO (10:04)
--- NOTE | 2021-11-15 19:32 | MHC.CM.PN ---
GARVEY 11/15. HCP on file. HCP/ [facility] Valera ([phone]). +Covid 11/14. Vax x2/Boosted x2 (Moderna/Pfizer). Lives with . Uses cane, walker and scooter. [employer] (3/12 hours/day). Nurse [id number] ([facility]). D/C plan: Home. Will need chair van or transport via [facility]. CM to follow for d/c needs.
[2021-11-15] MEDS: Atorvastatin Calcium 80 MG TABLET PO (21:53)
[2021-11-15] MEDS: Tamsulosin HCL 0.4 MG CAPSULE PO (21:53)
[2021-11-16 01:50] VITALS: BP 154/52; PULSE 66; RESP 18; TEMP 36.2; O2SAT 99
[2021-11-16] MEDS: Omeprazole 40 MG CAPSULE.DR PO (06:42)
--- NOTE | 2021-11-16 07:00 | PC.NURSE ---
Assumed care of patient at this time.
[2021-11-16 08:11] VITALS: BP 149/74; PULSE 68; RESP 20; TEMP 36.6; O2SAT 100
[2021-11-16] MEDS: carvediloL 25 MG TABLET PO (08:39)
[2021-11-16] MEDS: Losartan Potassium 50 MG TABLET 100 MG PO (08:39)
[2021-11-16] MEDS: Acetaminophen 325 MG TABLET 650 MG PO (08:39)
--- NOTE | 2021-11-16 10:25 | P.DS_ITS ---
DS: Providers Provider Date of Service: 11/16/21 Date of admission: 11/14/21 22:17 Primary care physician: [facility] Attending physician on admission: Shanta Stark Attending physician on discharge: Papito Ocampo Discharging clinician: Lexie Jimenez DS: Diagnosis Discharge Diagnosis (1) COVID-19 virus infection: Status: Acute (2) Encephalopathy due to COVID-19 virus: Status: Acute (3) Sepsis: Status: Acute DS: Summary Hospital Course Hospital Course: HPI on arrival: This is a 85-year-old male with a pertinent history of prior CVA, paroxysmal atrial fibrillation on anticoagulation, benign prostatic hyperplasia, essential hypertension, gastroesophageal reflux disease who was brought to the emergency department for confusion.? Patient tested positive for COVID-19 infection earlier in the day and was discharged with symptomatic treatment.? As per chart history, patient was brought to the ER for evaluation of confusion.? At the time of my evaluation, patient does not know why he was brought to the ER.? He does endorse dry cough and upper respiratory tract symptoms for the last 24-48 hours.? He has received for vaccinations for COVID-19.? No sick contacts.? He denies fever, chills, chest discomfort, shortness of breath, palpitations, abdominal discomfort, changes in urinary or bowel habits. Hospital course: Pt admitted for management of sepsis related to COVID-19 infection with metabolic encephalopathy. Pt met sepsis with fever 103.2, leumocytosis 13.5 in the setting of COVID-19 infection. Renal function baseline creat 1.07, BUN 18. On admission he was disoriented to time. Lactic acid was normal and he was not hypotensive. CXR showed coarse interstitial markings without any lobar consolidation. He was rescusitated with IV fluids with improvement in mental status. There was no hypoxia so patient was not felt to be a candidate for IV antivirals or steroids. He has been receiving home ICS and has not required any albuterol. He has denied sob or chest pain. Encephalopathy resolved and patient mental status improved to baseline A&Ox3. He is feeling well and has no complaints at this time. Status at Discharge Cognitive/behavioral status at discharge: Mental status improved to baseline A&Ox3. Time Spent with Patient Time attestation: Total time spent providing and/or coordinating discharge services: Discharge coordination time: Less than 30 minutes Quality: Safe Use of Opioids Does Pt have an Active Cancer Diagnosis on the Problem List?: No Quality: Stroke Does the patient have a stroke diagnosis?: No Physical Exam Vital Signs: Vital Signs: Last Vital Signs Temp 97.9 F 11/16/21 08:11 Pulse 68 11/16/21 08:11 Resp 20 11/16/21 08:11 BP 149/74 H 11/16/21 08:11 Pulse Ox 100 11/16/21 08:11 O2 Del Method 11/16/21 08:11 BMI result Body Mass Index 38.9 Constitutional - Awake and Alert, No apparent distress Eyes - PERRLA, EOMI Cardiovascular - S1S2, RRR, No edema Respiratory -Coarse crackles bilaterally. Normal lung expansion, Normal respiratory effort, No respiratory distress, no wheezing Gastrointestinal - NT / ND; +BS; No rebound or guarding Extremities - no calf tenderness bilaterally, no swelling Skin - Warm/Dry Neurological - Alert & oriented x3, CN II-XII in tact, 5/5 strength BUE and BLE Psychological - Appropriate affect DS: Data Data Completed and Pending Completed studies during hospitalization [Text1]: Procedures Insertion of Endotracheal Airway into Trachea, Via Natural or Artificial Opening Endoscopic (04/01/20) Insertion of Infusion Device into Superior Vena Cava, Percutaneous Approach (04/01/20) Introduction of Remdesivir Anti-infective into Peripheral Vein, Percutaneous Approach, [employer] (04/01/20) Respiratory Ventilation, Greater than 96 Consecutive Hours (04/01/20) Transfusion of Convalescent Plasma (Nonautologous) into Peripheral Vein, Percutaneous Approach, [employer] (04/01/20) Ultrasonography of Superior Vena Cava, Guidance (04/01/20) Labs on day of discharge: Preliminary micro results at discharge 11/14/21 22:49 Blood Culture - Preliminary Blood - Venous No growth after 24 hours. 11/14/21 22:35 Blood Culture - Preliminary Blood - Venous No growth after 24 hours. Discharge Plan Discharge Patient Disposition: Home, Self-Care Discharge Diagnosis: COVID-19 infection with sepsis and encephalopathy Referrals: [place],[facility] [Primary Care Provider] - 1 Week Discharge Medications: New albuterol sulfate [Ventolin HFA] 90 mcg/actuation HFA aerosol inhaler 2 puff inhalation Q6H PRN (Reason: shortness of breath or wheezing) Qty: 8.5 0RF Continued Breo Ellipta 200-25 mcg/dose blister with device 1 ea inhalation DAILY Qty: 60 2RF furosemide 40 mg tablet 40 mg PO DAILY Qty: 90 1RF tamsulosin 0.4 mg capsule 0.4 mg PO DAILY 90 Days Qty: 90 3RF verapamil 180 mg capsule,ext rel. pellets 24 hr 180 mg PO DAILY Qty: 90 3RF losartan 100 mg tablet 100 mg PO DAILY Qty: 90 0RF sennosides [Senokot] 8.6 mg tablet 8.6 mg PO DAILY Qty: 30 6RF Xarelto 20 mg tablet 20 mg PO DAILY Qty: 90 1RF Rx Instructions: must administer with evening meal appropriate dose for current kidney function pantoprazole 40 mg tablet,delayed release (DR/EC) 40 mg PO DAILY Qty: 90 0RF atorvastatin 80 mg tablet 80 mg PO BEDTIME potassium chloride 10 mEq tablet extended release 1 tab PO BID carvedilol 25 mg tablet 25 mg PO BID Linzess 145 mcg capsule 145 mcg PO DAILY Qty: 90 2RF Discharge Orders: Discharge Order (Routine); Ordered 11/16/21 Ordered By: Lexie Jimenez Diet: Regular diet Activity on Discharge: As tolerated Stand Alone Forms: Patient Portal Discharge page Care Plan Goals: COVID-19- complete isolation per CDC guidelines. Return to the ER for any worsening shortness of breath, chest pain, or confusion Health Concerns: COVID-19 with sepsis and encephalopthy Plan of Treatment: You should completed your isolation period per CDC guidelines due to your COVID- 19 diagnosis. Treat any fevers with tylenol. You can take cough syrup, flonase, throat lozenges as needed for symptomatic relief. Be sure to hydrate with water. Continue your home treatments for COPD. Return to the ED for any worsening symptoms. Assessment: You were admitted to the hospital due to COVID-19 wtih sepsis. Sepsis is your immune systems response to serious infection. Because of this you also developed encephalopathy which causes confusion. This resolved with IV fluids. You mental status improved back to baseline and your vital signs improved. Patient Instructions: COVID-19 (Coronavirus Disease 2019) (DC)
[2021-11-16] MEDS: VerapamiL HCL SR 180 MG TABLET.ER PO (10:49)
[2021-11-16] MEDS: Rivaroxaban 15 MG TABLET PO (10:49)
[2021-11-16 11:53] VITALS: BP 143/63; PULSE 59; RESP 20; TEMP 36.6; O2SAT 97
--- NOTE | 2021-11-16 14:19 | MHC.CM.PN ---
CM INFORMED PT IS BEING DISCHARGED AND DOES NOT HAVE TRANSPORTATION HOME CM CALLED LOCAL AMBULANCE COMPANIES: [facility], [facility], [facility] AND NONE WERE ABLE TO PROVIDE TRANSPORT CM CALLED [facility] TRANSPORTATION LINE [phone] AND LEFT A MESSAGE REQUESTING TRANSPORT, AWAITING CALL BACK PT IS COVID+ AND THEREFORE NOT APPROPRIATE FOR [facility] TRANSPORT TO BE ARRANGED
[2021-11-16 16:44] VITALS: BP 121/57; PULSE 49; RESP 17; TEMP 36.9; O2SAT 97
--- NOTE | 2021-11-16 19:03 | PC.NURSE ---
Report given to ELMER Rock assuming care of patient at this time.
== END 2021-11-16 19:50 | disposition home or self-care (01) ==
LOC: HO.ED 21:22 → HO.EDOVER 22:33
PROVIDERS: Internal Medicine; Admitting Provider Student in an Organized Health Care Education/Training Program; Emergency Provider Student in an Organized Health Care Education/Training Program; Visit Provider Physician Assistant
DX: A41.89 Other specified sepsis (principal); U07.1 COVID-19; G93.49 Other encephalopathy; N17.9 Acute kidney failure, unspecified; I11.0 Hypertensive heart disease with heart failure; I50.9 Heart failure, unspecified; I48.0 Paroxysmal atrial fibrillation; J44.9 Chronic obstructive pulmonary disease, unspecified; E78.00 Pure hypercholesterolemia, unspecified; K21.9 Gastro-esophageal reflux disease without esophagitis; N40.1 Benign prostatic hyperplasia with lower urinary tract symptoms; R35.0 Frequency of micturition; I44.0 Atrioventricular block, first degree; E66.9 Obesity, unspecified; Z68.38 Body mass index [BMI] 38.0-38.9, adult; Z86.73 Personal history of transient ischemic attack (TIA), and cerebral infarction without residual deficits; Z79.02 Long term (current) use of antithrombotics/antiplatelets; Z79.01 Long term (current) use of anticoagulants; Z79.899 Other long term (current) drug therapy; Z87.891 Personal history of nicotine dependence
CPT/HCPCS: 36415; 71045; 80048; 80076; 81001; 83605; 83690; 85025; 87040; 87635; 93005; 96361; 96374; 99219; 99285; J1100

== ENCOUNTER 2021-11-28 15:33 | Emergency (ER) | payer OTHER, SELFPAY ==
--- NOTE | ~2021-11-28 | CT_ITS ---
EXAMINATION: CT ABDOMEN AND PELVIS WITH CONTRAST CLINICAL INFORMATION: Left lower quadrant abdomen pain, history of diverticulitis COMPARISON: CT abdomen and pelvis 05/27/2021 and multiple prior abdominal CTs TECHNIQUE: Multidetector volumetric images were obtained from the superior aspect of the liver through the pubic symphysis following administration 85 mL of Omnipaque 350 intravenous contrast. Sagittal and coronal reformatted images were obtained on the technologist's workstation. Oral contrast: No This CT examination was performed using dose optimization techniques as appropriate, variously including the following: *Automated exposure control *Adjustment of mA and/or kV according to patient size (this includes techniques or standardized protocols for targeted exams where dose is matched to indication/reason for exam; i.e. extremities or head) *Use of iterative reconstruction technique DLP: 776 mGy-cm FINDINGS: LUNG BASES: Bilateral gynecomastia. Mildly enlarged heart. Bulky coronary artery calcifications. Atelectasis in lung bases. LIVER, GALLBLADDER, AND BILIARY TREE: The liver is normal in size, shape, and attenuation. No focal hepatic lesion or biliary ductal dilatation is present. The gallbladder is unremarkable with no evidence of radiopaque gallstones, gallbladder wall thickening, or obvious pericholecystic inflammatory changes. PANCREAS: Unremarkable. SPLEEN: Unremarkable. ADRENAL GLANDS: Unremarkable. KIDNEYS AND URETERS: The kidneys are normal in size, shape, and attenuation. No hydronephrosis, hydroureter, or calculi seen. No perinephric stranding. Cyst in the midpole the right kidney that does not require imaging follow-up. BLADDER: Unremarkable. GASTROINTESTINAL TRACT: Small hiatal hernia. No bowel obstruction. There is colonic diverticulosis with focal wall thickening and mild pericolonic stranding in the sigmoid colon, the overall appearance is similar to the prior exam from 05/27/2021. No free air or organized fluid collection. ABDOMINAL WALL: No significant hernia is appreciated. LYMPH NODES: Normal. VASCULAR: Moderate to severe atherosclerotic calcification in the abdominal aorta without aneurysm. PELVIC VISCERA: Unremarkable. OSSEOUS STRUCTURES: Degenerative changes in the spine. Right hip arthroplasty. CT/CT abdomen pelvis w IV con IMPRESSION: Similar to multiple prior abdominal CTs dating back to 2019, there is mild diverticulitis involving the descending colon and. 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 There is no organized fluid collection or free air. When symptoms resolve, consider correlation with colonoscopy with attention to the descending colon sigmoid junction. Extensive atherosclerotic disease including coronary artery disease. Fleischner guidelines were followed.
[2021-11-28 16:21] VITALS: BP 155/65; BP 155/78; PULSE 70; PULSE 76; RESP 16; TEMP 37.2; O2SAT 98; BMI 36.6
--- NOTE | 2021-11-28 17:03 | ED.ABDPAIN ---
HPI - Abdominal Pain General Chief Complaint: Abdominal Pain Stated Complaint: abdominal pain Time Seen by Provider: 11/28/21 16:37 Source: patient Mode of arrival: ambulatory History of Present Illness HPI narrative: 86 male with past medical history of AFib on Xarelto, HLD, HTN, CHF, anxiety, depression, BPH, COVID-19, diverticulitis, presenting to the ED complaining of left lower quadrant abdominal pain, nausea, and vomiting since yesterday. Denies known fever, chills, diarrhea/ constipation, dysuria /hematuria MD elicited complaint: abdominal pain Onset (ago): day(s) Related Data Home Medications Medication Instructions Recorded Confirmed atorvastatin 80 mg tablet 80 mg PO BEDTIME 06/03/20 11/14/21 carvedilol 25 mg tablet 25 mg PO BID 12/04/20 11/14/21 potassium chloride 10 mEq 1 tab PO BID 11/14/21 11/14/21 tablet,extended release Previous Rx's Medication Instructions Recorded fluticasone furoate 200 1 ea inhalation DAILY #60 ea 07/05/20 mcg-vilanterol 25 mcg/dose inhalation powder (Breo Ellipta) furosemide 40 mg tablet 40 mg PO DAILY #90 tabs 03/11/21 tamsulosin 0.4 mg capsule 0.4 mg PO DAILY 90 days #90 caps 03/29/21 verapamil 180 mg 24 hr 180 mg PO DAILY #90 caps 03/29/21 capsule,extended release losartan 100 mg tablet 100 mg PO DAILY #90 tabs 07/02/21 linaclotide 145 mcg capsule 145 mcg PO DAILY #90 caps 07/15/21 (Linzess) sennosides 8.6 mg tablet (Senokot) 8.6 mg PO DAILY #30 tabs 07/19/21 rivaroxaban 20 mg tablet (Xarelto) 20 mg PO DAILY #90 tabs 08/16/21 pantoprazole 40 mg tablet,delayed 40 mg PO DAILY #90 tabs 10/27/21 release albuterol sulfate 90 mcg/actuation 2 puff inhalation Q6H PRN 11/16/21 aerosol inhaler (Ventolin HFA) shortness of breath or wheezing #8.5 grams amoxicillin 875 mg-potassium 1 tab PO BID 7 days #14 tabs 11/28/21 clavulanate 125 mg tablet Allergies Allergy/AdvReac Type Severity Reaction Status Date / Time dabigatran etexilate Allergy Intermediate ITCHING Verified 11/14/21 03:02 [From PRADAXA] JORGE L Inhibitors Allergy Mild UNKNOWN, Verified 11/14/21 03:02 [Jorge L Inhibitors] FOUND IN MEDICAL RECORD 04/[address] GIPSON ezetimibe [From Zetia] Allergy Mild ANAPHYLAXIS Verified 11/14/21 03:02 apixaban [From ELIQUIS] Allergy Unknown UNKNOWN, Verified 11/14/21 03:02 rash rosuvastatin [Crestor] Allergy Unknown myalgia Verified 11/14/21 03:02 Review of Systems Review of Systems Constitutional: No Fever, No Chills, No Fatigue, No Malaise ENT/Mouth: No Ear Pain, No Nasal Congestion, No sore throat, No Rhinorrhea, No Swallowing Difficulty Eyes: No Eye Pain, No Swelling, No Redness, No Foreign Body, No Discharge, No Vision Changes Cardiovascular: No Chest Pain, No SOB, No Edema, No Palpitations Respiratory: No Cough, No Sputum, No Dyspnea Gastrointestinal: + Nausea, + Vomiting, No Diarrhea, No Constipation, + Abdominal pain Genitourinary: No Dysuria, No Urinary Frequency, No Hematuria, No Urinary Incontinence/retention, No Flank Pain Musculoskeletal: No joint pain, No Myalgias, No Joint Swelling Skin: No Skin Lesions, No rash Neuro: No Weakness, No Dizziness, No Headache Yes all other systems are reviewed and are negative Constitutional: Reports as per [facility] Past Medical History Attestation statement: The following information was validated with the patient. Medical History Acute kidney failure Acute respiratory failure with hypoxia Afib Altered mental status Anemia Anxiety and depression ARDS (adult respiratory distress syndrome) BPH (benign prostatic hyperplasia) Cholecystitis Chronic abdominal pain Constipation COPD (chronic obstructive pulmonary disease) COVID-19 COVID-19 virus infection Current use of anticoagulant therapy Diastolic CHF, acute on chronic Diverticulitis Frequency of micturition GERD (gastroesophageal reflux disease) Headache History of CVA (cerebrovascular accident) History of rib fracture Hypercholesterolemia Hypertension Hypertrophic cardiomyopathy Hypogammaglobulinemia Meningioma Obesity (BMI 30-39.9) Obstructive sleep apnea Paroxysmal atrial fibrillation Peripheral neuropathy Peripheral vascular disease Polyarthralgia Primary osteoarthritis of right knee Protrusion of lumbar intervertebral disc Tear of medial meniscus of knee Urinary incontinence Surgical History H/O colonoscopy History of left knee replacement History of tonsillectomy History of total right hip replacement History of transurethral resection of prostate Family History Family History Father No problems noted. Mother Hx of type 1 diabetes mellitus Social History Social History Household Members: Spouse Housing: House Do you presently have visiting nurse or other home services: No Alcohol intake: never Patient Tobacco Use Status: Former Tobacco user Years Smoked: 30 yrs ago Second Hand Smoke Exposure: No Use of substances other than those prescribed or required for medical reasons: No Advance Directives: Yes Advance Directives on File: Yes Advance Directives Date on File: 04/06/20 service: No Current occupational status: unemployed and retired Current occupation: Right Handed Physical Exam ED Vital Signs: Vital Signs - 24 hr 11/28/21 16:21 Temperature 98.9 F Pulse Rate 70 Respiratory Rate 16 Blood Pressure 155/65 H Pulse Oximetry 98 Oxygen Delivery Method Room Air BMI result Body Mass Index 36.6 Const General: cooperative, healthy appearing and no acute distress Orientation/consciousness: patient oriented x3 Limitations: no limitations HENMT Head: Yes normal to inspection and Yes atraumatic Ears: hearing grossly normal bilaterally General nose exam: Normal external nose present Face and sinus: Yes normal facial exam Eyes General: appearance normal, both eyes and all related structures EOM: EOMs intact bilaterally Neck Neck: Yes normal visual inspection and Yes no meningeal signs Resp Effort & Inspection: normal respiratory effort and no respiratory distress Auscultation: clear to auscultation bilaterally Cardio Rate: regular rate Heart sounds: S1 normal heart sound present and S2 normal heart sound present GI Inspection: Yes normal to inspection Palpation (GI): Soft to palpation, Tenderness to palpation present (GI) in the LLQ; with no rebound tenderness, no guarding and not rigid General: Yes no CVA tenderness Back/Spine/Pelvis Back: no CVA tenderness Skin Rashes: no rashes Wounds: no wounds Neuro General: patient oriented x3, tone normal and no meningeal signs Gait exam (Neuro): Normal gait present Extrem General: Yes normal to inspection Course Course Course Narrative: -1848-- mild leukocytosis of 11.7. H&H at patient's baseline. Labs otherwise unremarkable - UA negative 2013-- CT abdomen pelvis w IV con IMPRESSION: Similar to multiple prior abdominal CTs dating back to 2019, there is mild diverticulitis involving the descending colon and. 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 There is no organized fluid collection or free air. When symptoms resolve, consider correlation with colonoscopy with attention to the descending colon sigmoid junction. ? Extensive atherosclerotic disease including coronary artery disease. ? Fleischner guidelines were followed. >> results discussed with patient. Plan to DC home with p.o. antibiotics. Results discussed with patient including worrisome signs and symptoms and strict return precautions, and when to return to the emergency department. They verbalized understanding and feel safe for discharge at this time. MDM - Abdominal Pain MDM Narrative Medical decision making narrative: 86 male with past medical history of AFib on Xarelto, HLD, HTN, CHF, anxiety, depression, BPH, COVID-19, diverticulitis, presenting to the ED complaining of left lower quadrant abdominal pain, nausea, and vomiting since yesterday. on exam vital signs stable, NAD, nontoxic appearing, abdomen soft with left lower quadrant tenderness, no rebound or guarding, no CVA tenderness. Concern for diverticulitis vs UTI. Lower suspicion for appendicitis, renal stone/pyelo plan: Labs, UA, CT AP, IVF, pain management, re-evaluate Differential Diagnosis Differential diagnosis: Likely abdominal pain, acute appendicitis, constipation, diverticulitis, gastroenteritis and small bowel obstruction Medical Records Attestation: I reviewed the patient's medical records. Lab Data Attestation: I reviewed the patient's lab results. Result diagrams: 11/28/21 17:57 11/28/21 17:57 Labs: Lab Results 11/28/21 11/28/21 11/28/21 Range/Units 17:57 17:57 17:57 WBC 11.7 H (4.8-10.8) X10*3/uL RBC 4.05 L (4.60-5.80) X10*6/uL Hgb 11.7 L (14.0-18.0) g/dl Hct 36.2 L (42.0-52.0) % MCV 89.4 (80.0-98.0) fL MCH 28.9 (27.0-33.0) pg MCHC 32.3 (31.0-36.0) g/dl RDW 13.3 (11.0-16.0) % Plt Count 220 D (160-400) X10*3/uL MPV 9.3 L (9.4-12.4) fL Immature Gran % (Auto) 0.3 (0.0-0.4) % Neut % (Auto) 71.5 (45-73) % Lymph % (Auto) 21.3 (20-40) % [place] % (Auto) 5.6 (2-11) % Eos % (Auto) 1.0 (0-4) % Baso % (Auto) 0.3 (0-2) % Lymph # (Auto) 2.5 (1.2-4.9) X10*3/uL [place] # (Auto) 0.7 (0.1-1.2) X10*3/uL Eos # (Auto) 0.1 (0.0-0.4) X10*3/uL Baso # (Auto) 0.0 (0.0-0.2) X10*3/uL Abs Immat Gran (auto) 0.04 H (0.00-0.03) X10*3/uL Absolute Neuts (auto) 8.4 H (2.0-8.3) x10*3/uL Absolute Nucleated RBC 0.000 (0.0-0.012) X10*3/uL Nucleated RBC % (auto) 0.0 (0.0-0.2) /100WBC Sodium 144 (135-145) mmol/L Potassium 5.0 D (3.3-5.1) mmol/L Chloride 107 (96-108) mmol/L Carbon Dioxide 27 (22-29) mmol/L Anion Gap 15 (12-20) BUN 17 H (9-16) mg/dL Creatinine 1.08 (0.5-1.4) mg/dL Estim Creat Clear Calc 48.8 Estimated GFR > 60 Random Glucose 118 H D (60-115) mg/dL Calcium 9.0 (8.4-10.2) mg/dL Magnesium 1.9 (1.6-2.6) mg/dL Total Bilirubin 0.4 (0.0-1.0) mg/dL Direct Bilirubin 0.2 (0.0-0.5) mg/dL AST 23 D (5-37) U/L ALT 18 (0-40) U/L Alkaline Phosphatase 58 D (39-117) U/L Total Protein 6.3 L (6.5-8.0) g/dL Albumin 3.9 (3.5-5.0) g/dL Lipase 24 (8-78) U/L Urine Color Yellow Urine Appearance Clear Urine pH 7.0 (5.0-9.0) Ur Specific Mitchell 1.010 (1.005-1.025) Urine Protein Negative (Neg-Trace) mg/dL Urine Glucose (UA) Negative (Negative) mg/dL Urine Ketones Negative (Negative) mg/dL Urine Blood Negative (Negative) Urine Nitrite Negative (Negative) Ur Leukocyte Esterase Negative (Negative) Discharge Plan Discharge Clinical Impression: Diverticulitis Patient Disposition: Home, Self-Care Instructions: Diverticulitis (ED), Diverticulitis Diet (ED) Additional Instructions: your CT scan shows mild diverticulitis. Augmentin as an antibiotic please take as prescribed. Practice a bland diet for the next 3 days. It is recommended you have a colonoscopy once her symptoms have resolved, please follow-up with her primary care doctor/ GI doctor. If symptoms persist or worsen you develop constant worsening abdominal pain, you are not able to eat or drink, have fever or not having bowel movements in turn to the emergency department immediately Prescriptions: New amoxicillin-pot clavulanate 875-125 mg tablet 1 tab PO BID 7 Days Qty: 14 0RF No Action Breo Ellipta 200-25 mcg/dose blister with device 1 ea inhalation DAILY Qty: 60 2RF furosemide 40 mg tablet 40 mg PO DAILY Qty: 90 1RF tamsulosin 0.4 mg capsule 0.4 mg PO DAILY 90 Days Qty: 90 3RF verapamil 180 mg capsule,ext rel. pellets 24 hr 180 mg PO DAILY Qty: 90 3RF losartan 100 mg tablet 100 mg PO DAILY Qty: 90 0RF sennosides [Senokot] 8.6 mg tablet 8.6 mg PO DAILY Qty: 30 6RF Xarelto 20 mg tablet 20 mg PO DAILY Qty: 90 1RF Rx Instructions: must administer with evening meal appropriate dose for current kidney function pantoprazole 40 mg tablet,delayed release (DR/EC) 40 mg PO DAILY Qty: 90 0RF atorvastatin 80 mg tablet 80 mg PO BEDTIME potassium chloride 10 mEq tablet extended release 1 tab PO BID albuterol sulfate [Ventolin HFA] 90 mcg/actuation HFA aerosol inhaler 2 puff inhalation Q6H PRN (Reason: shortness of breath or wheezing) Qty: 8.5 0RF carvedilol 25 mg tablet 25 mg PO BID Linzess 145 mcg capsule 145 mcg PO DAILY Qty: 90 2RF Referrals: Johny Su MD [Physician] - 1 week Physician,Unknown J [Primary Care Provider] - Interventions: ED Discharge Assessment Last Done: 11/28/21 21:13 Discharge Date/Time: 11/28/21 21:14
[2021-11-28 18:02] LABS: MANUAL DIFF FLAG NO
[2021-11-28 18:04] LABS: Basophils Percent Auto 0.3 % (0-2); Eosinophils Absolute Auto 0.1 X10*3/uL (0.0-0.4); Hematocrit 36.2 % (42.0-52.0); Hemoglobin 11.7 g/dl (14.0-18.0); Imm Gran Abs Auto 0.04 X10*3/uL (0.00-0.03); Imm Gran Pct Auto 0.3 % (0.0-0.4); Lymphocytes Absolute Auto 2.5 X10*3/uL (1.2-4.9); Lymphocytes Percent Auto 21.3 % (20-40); Mean Corpuscular HGB Conc 32.3 g/dl (31.0-36.0); Mean Corpuscular Hemoglobin 28.9 pg (27.0-33.0); Mean Corpuscular Volume 89.4 fL (80.0-98.0); Mean Platelet Volume 9.3 fL (9.4-12.4); Monocytes Absolute Auto 0.7 X10*3/uL (0.1-1.2); Monocytes Percent Auto 5.6 % (2-11); Neutrophils Absolute Auto 8.4 x10*3/uL (2.0-8.3); Neutrophils Percent Auto 71.5 % (45-73); Platelet Count 220 X10*3/uL (160-400); Red Blood Count 4.05 X10*6/uL (4.60-5.80); Red Cell Distribution Width 13.3 % (11.0-16.0); White Blood Count 11.7 X10*3/uL (4.8-10.8)
[2021-11-28 18:08] LABS: Appearance Urine Clear; Color Urine Yellow; Glucose Urine UA Negative (Negative); Leukocyte Esterase Urine Negative (Negative); Nitrite Urine Negative (Negative); Urine Blood Negative (Negative); Urine Ketones Negative (Negative); Urine Protein Negative (Neg-Trace)
[2021-11-28] MEDS: 0.9 % Sodium Chloride 1,000 ML 999 ML IV (18:18)
[2021-11-28 18:27] LABS: Alanine Aminotransferase 18 U/L (0-40); Albumin Level 3.9 g/dL (3.5-5.0); Alkaline Phosphatase 58 U/L (39-117); Anion Gap 15 (12-20); Aspartate Amino Transferase 23 U/L (5-37); Bilirubin Direct 0.2 mg/dL (0.0-0.5); Bilirubin Total 0.4 mg/dL (0.0-1.0); Blood Urea Nitrogen 17 mg/dL (9-16); Carbon Dioxide 27 mmol/L (22-29); Chloride 107 mmol/L (96-108); Creatinine Clr Calc Pharmacy 48.8; Estimated Glomerular Filt Rate > 60; Glucose Random 118 mg/dL (60-115); Lipase 24 U/L (8-78); Magnesium 1.9 mg/dL (1.6-2.6); Sodium 144 mmol/L (135-145); Total Protein 6.3 g/dL (6.5-8.0)
--- NOTE | 2021-11-28 18:27 | PC.NURSE ---
pt is a/o x 3 no sob/[place] speaks in full sentences. lungs - cta, abd obese, soft and n/t. bs x 4 QUADS .noted skin pink warm dry. PT AWARE OF PLAN OF CARE.
[2021-11-28] MEDS: iohexoL 350 MG/ML 100 ML INFUS..BTL 85 ML IV (19:18)
== END 2021-11-28 21:14 | disposition home or self-care (01) ==
PROVIDERS: Physician Assistant; Emergency Provider Emergency Medicine
DX: K57.32 Diverticulitis of large intestine without perforation or abscess without bleeding (principal); R11.2 Nausea with vomiting, unspecified; I11.0 Hypertensive heart disease with heart failure; I50.9 Heart failure, unspecified; E78.5 Hyperlipidemia, unspecified; I48.0 Paroxysmal atrial fibrillation; Z87.891 Personal history of nicotine dependence; Z79.01 Long term (current) use of anticoagulants; Z79.02 Long term (current) use of antithrombotics/antiplatelets; Z79.899 Other long term (current) drug therapy
CPT/HCPCS: 36415; 74177; 80048; 80076; 81003; 83690; 83735; 85025; 96361; 96374; 99284; J1885; Q9967

== ENCOUNTER → 2021-12-10 16:18 | Outpatient (BNVA) | payer OTHER, SELFPAY | PROVIDERS: Visit Provider Nurse Practitioner Family | DX: K57.92 Diverticulitis of intestine, part unspecified, without perforation or abscess without bleeding (principal); K21.9 Gastro-esophageal reflux disease without esophagitis; K59.04 Chronic idiopathic constipation; K58.1 Irritable bowel syndrome with constipation; J31.0 Chronic rhinitis; Z86.16 Personal history of COVID-19 | CPT/HCPCS: 99212 ==

== ENCOUNTER 2021-12-17 10:14 | Emergency (ER) | payer OTHER, SELFPAY ==
--- NOTE | ~2021-12-17 | CT_ITS ---
EXAMINATION: CT ABDOMEN AND PELVIS WITH CONTRAST CLINICAL INFORMATION: Right lower quadrant abdominal pain. COMPARISON: None TECHNIQUE: Multidetector volumetric images were obtained from the superior aspect of the liver through the pubic symphysis following administration 85 mL of Omnipaque 350 intravenous contrast. Sagittal and coronal reformatted images were obtained on the technologist's workstation. Oral contrast: No This CT examination was performed using dose optimization techniques as appropriate, variously including the following: *Automated exposure control *Adjustment of mA and/or kV according to patient size (this includes techniques or standardized protocols for targeted exams where dose is matched to indication/reason for exam; i.e. extremities or head) *Use of iterative reconstruction technique DLP: 739 mGy-cm FINDINGS: LUNG BASES: The visualized lung bases are unremarkable. LIVER, GALLBLADDER, AND BILIARY TREE: Unremarkable. PANCREAS: Unremarkable. SPLEEN: Unremarkable. ADRENAL GLANDS: Unremarkable. KIDNEYS AND URETERS: Small low-attenuation foci bilaterally not requiring follow-up. No nephrolithiasis or hydroureteronephrosis. BLADDER: Unremarkable. GASTROINTESTINAL TRACT: The stomach is unremarkable. Small medial second segment duodenal diverticuli without abnormality. The remainder the small bowel is unremarkable. No evidence for acute appendicitis. Mild to moderate colonic diverticulosis is seen. Mild mural thickening and pericolonic infiltrative changes are seen at the descending/sigmoid junction in the left lower quadrant. No evidence for perforation or abscess formation. The rectum is unremarkable. ABDOMINAL WALL: Very small fat-containing umbilical hernia. LYMPH NODES: Normal. VASCULAR: Moderate atherosclerosis in the visualized arteries. No aneurysmal dilatation. PELVIC VISCERA: Unremarkable. OSSEOUS STRUCTURES: L5-S1 severe degenerative disc disease, grade 1 anterolisthesis and bilateral spondylolysis. Mild multilevel degenerative changes. CT/CT abdomen pelvis w IV con IMPRESSION: 1. Mural thickening at the descending/sigmoid junction without significant change compared to previous studies. This suggests chronic changes however, recurrent mild diverticulitis cannot be excluded. 2. Other incidental findings detailed above without significant change. Fleischner guidelines were followed.
--- NOTE | ~2021-12-17 | XR_ITS ---
EXAMINATION: XR CHEST CLINICAL INFORMATION: Cough, positive RSV. COMPARISON: 11/14/[address] scan dated 04/01/2020. TECHNIQUE: 2 views of the chest were obtained. FINDINGS: Coarsened interstitial markings are seen bilaterally without significant change. The heart and mediastinal structures are unremarkable. Multilevel healed left rib fractures are seen. Severe right glenohumeral degenerative joint changes are again seen. XR/XR chest 2V IMPRESSION: Coarsened interstitial markings bilaterally are similar to previous studies consistent with chronic changes. No acute cardiopulmonary process.
[2021-12-17 10:40] VITALS: BP 152/75; PULSE 75; O2SAT 97
[2021-12-17 10:41] VITALS: BP 150/62; PULSE 78; RESP 20; TEMP 37.1; O2SAT 96; BMI 36.6
[2021-12-17 11:13] LABS: Appearance Urine Clear; Color Urine Yellow; Glucose Urine UA Negative (Negative); Leukocyte Esterase Urine Negative (Negative); Nitrite Urine Negative (Negative); Urine Blood Negative (Negative); Urine Ketones Negative (Negative); Urine Protein Negative (Neg-Trace)
[2021-12-17 12:00] LABS: MANUAL DIFF FLAG NO
[2021-12-17 12:01] LABS: Basophils Percent Auto 0.4 % (0-2); Eosinophils Absolute Auto 0.1 X10*3/uL (0.0-0.4); Eosinophils Percent Auto 1.5 % (0-4); Hematocrit 37.3 % (42.0-52.0); Hemoglobin 11.9 g/dl (14.0-18.0); Imm Gran Abs Auto 0.03 X10*3/uL (0.00-0.03); Imm Gran Pct Auto 0.3 % (0.0-0.4); Lymphocytes Absolute Auto 2.1 X10*3/uL (1.2-4.9); Mean Corpuscular HGB Conc 31.9 g/dl (31.0-36.0); Mean Corpuscular Hemoglobin 28.7 pg (27.0-33.0); Mean Corpuscular Volume 90.1 fL (80.0-98.0); Mean Platelet Volume 9.6 fL (9.4-12.4); Monocytes Absolute Auto 0.9 X10*3/uL (0.1-1.2); Monocytes Percent Auto 9.4 % (2-11); Neutrophils Absolute Auto 6.4 x10*3/uL (2.0-8.3); Neutrophils Percent Auto 66.4 % (45-73); Platelet Count 221 X10*3/uL (160-400); Red Blood Count 4.14 X10*6/uL (4.60-5.80); Red Cell Distribution Width 13.7 % (11.0-16.0); White Blood Count 9.6 X10*3/uL (4.8-10.8)
[2021-12-17 12:09] LABS: Influenza A PCR NEGATIVE (Negative); Influenza B PCR NEGATIVE (Negative); Resp Syncy Virus RNA Qual PCR POSITIVE (Negative); SARS COV2 PCR INHOUSE NEGATIVE (Negative)
[2021-12-17 12:25] LABS: Alanine Aminotransferase 31 U/L (0-40); Albumin Level 3.9 g/dL (3.5-5.0); Alkaline Phosphatase 72 U/L (39-117); Anion Gap 16 (12-20); Aspartate Amino Transferase 41 U/L (5-37); Bilirubin Direct 0.2 mg/dL (0.0-0.5); Bilirubin Total 0.4 mg/dL (0.0-1.0); Blood Urea Nitrogen 16 mg/dL (9-16); Calcium 8.7 mg/dL (8.4-10.2); Carbon Dioxide 25 mmol/L (22-29); Chloride 107 mmol/L (96-108); Creatinine Clr Calc Pharmacy 53.8; Estimated Glomerular Filt Rate > 60; Glucose Random 111 mg/dL (60-115); Lipase 17 U/L (8-78); Potassium 3.8 mmol/L (3.3-5.1); Sodium 144 mmol/L (135-145); Total Protein 6.3 g/dL (6.5-8.0)
--- NOTE | 2021-12-17 14:17 | ED_ITS ---
HPI - General Adult General Chief complaint: General Medical Stated complaint: cough with flank pain Time Seen by Provider: 12/17/21 13:45 Source: patient Mode of arrival: ambulatory Limitations: no limitations History of Present Illness HPI narrative: 86 year old male with past medical history of AFib on Xarelto, HLD, HTN, CHF, anxiety, depression, BPH, COVID-19, diverticulitis, presenting to the ED complaining?right lower quadrant/right flank pain over the past few days. Reports that he was recently diagnosed with diverticulitis and placed on Augmentin on 11/28/2021 and completed the course of antibiotics and continued having pain therefore his PCP placed him on another course of antibiotics of ciprofloxacin that he recently started and he is taking as prescribed. He reports he is unsure if it is related to the coughing he recently developed over the past 3 days with some mild nasal congestion/rhinorrhea. He reports every time he coughs it hurts in the right lower quadrant. Otherwise he denies any fevers, chills, dizziness, headaches, neck pain/stiffness, sore throat, ear pain, trouble swallowing or breathing, chest pain or shortness of breath, dyspnea on exertion, orthopnea, palpitations, paresthesias, nausea/vomiting/diarrhea, black or bloody stools, dysuria, hematuria, abnormal penile discharge, lower extremity edema or calf tenderness, recent travel or sick contacts that he is aware of or any other symptoms complaints or concerns at this time. MD complaint: Nasal congestion, cough, right lower quadrant/right flank pain Onset (ago): day(s) (3) Related Data Home Medications Medication Instructions Recorded Confirmed atorvastatin 80 mg tablet 80 mg PO BEDTIME 06/03/20 11/14/21 carvedilol 25 mg tablet 25 mg PO BID 12/04/20 11/14/21 potassium chloride 10 mEq 1 tab PO BID 11/14/21 11/14/21 tablet,extended release Previous Rx's Medication Instructions Recorded fluticasone furoate 200 1 ea inhalation DAILY #60 ea 07/05/20 mcg-vilanterol 25 mcg/dose inhalation powder (Breo Ellipta) furosemide 40 mg tablet 40 mg PO DAILY #90 tabs 03/11/21 tamsulosin 0.4 mg capsule 0.4 mg PO DAILY 90 days #90 caps 03/29/21 verapamil 180 mg 24 hr 180 mg PO DAILY #90 caps 03/29/21 capsule,extended release losartan 100 mg tablet 100 mg PO DAILY #90 tabs 07/02/21 linaclotide 145 mcg capsule 145 mcg PO DAILY #90 caps 07/15/21 (Linzess) sennosides 8.6 mg tablet (Senokot) 8.6 mg PO DAILY #30 tabs 07/19/21 rivaroxaban 20 mg tablet (Xarelto) 20 mg PO DAILY #90 tabs 08/16/21 pantoprazole 40 mg tablet,delayed 40 mg PO DAILY #90 tabs 10/27/21 release albuterol sulfate 90 mcg/actuation 2 puff inhalation Q6H PRN 11/16/21 aerosol inhaler (Ventolin HFA) shortness of breath or wheezing #8.5 grams cetirizine 10 mg tablet (Zyrtec) 10 mg PO DAILY PRN allergy 12/10/21 symptoms #30 tabs docusate sodium 100 mg capsule 100 mg PO DAILY #30 caps 12/10/21 sucralfate 100 mg/mL oral 10 ml PO BEDTIME #400 mL 12/10/21 suspension codeine 10 mg-guaifenesin 100 mg/5 5 ml PO Q6H PRN cold symptoms #120 12/17/21 mL oral liquid (Guaifenesin AC) mL cyclobenzaprine 10 mg tablet 10 mg PO Q8H #14 tabs 12/17/21 Allergies Allergy/AdvReac Type Severity Reaction Status Date / Time dabigatran etexilate Allergy Intermediate ITCHING Verified 12/10/21 16:26 [From PRADAXA] JORGE L Inhibitors Allergy Mild UNKNOWN, Verified 12/10/21 16:26 [Jorge L Inhibitors] FOUND IN MEDICAL RECORD 04/[address] GIPSON ezetimibe [From Zetia] Allergy Mild ANAPHYLAXIS Verified 12/10/21 16:26 apixaban [From ELIQUIS] Allergy Unknown UNKNOWN, Verified 12/10/21 16:26 rash rosuvastatin [Crestor] Allergy Unknown myalgia Verified 12/10/21 16:26 Review of Systems Review of Systems: Constitutional : No Weight loss, No Fever, No Chills, No Night Sweats, No Fatigue, No Malaise ENT/Mouth : No Hearing loss, No Ear Pain, + Nasal Congestion, No Sinus Pain, No Hoarseness, No sore throat, + Rhinorrhea, No Swallowing Difficulty Eyes: No Eye Pain, No Swelling, No Redness, No Foreign Body, No Discharge, No Vision Changes Cardiovascular : No Chest Pain, No SOB, No Dyspnea on Exertion, No Orthopnea, No Edema, No Palpitations Respiratory : + Cough, No Sputum, No Wheezing, No Smoke Exposure, No Dyspnea Gastrointestinal : No Nausea, No Vomiting, No Diarrhea, No Constipation, + abdominal Pain, No Hematochezia, No Melena Genitourinary : no irregular bleeding, No Dysuria, No Urinary Frequency, No Hematuria, No Urinary Incontinence, No Urgency, + Flank Pain, No Urinary Flow Changes, No Hesitancy Musculoskeletal : No joint pain, No Myalgias, No Joint Swelling Skin : No Skin Lesions, No rash Neuro : No Weakness, No Numbness, No Paresthesias, No Loss of Consciousness, No Dizziness, No Headache Psych : No Anxiety/Panic, No Depression, No SI/HI/AH/VH, No Social Issues, Heme/Lymph: No Bruising, No Bleeding,No Lymphadenopathy Endocrine : No Polyuria, No Polydipsia, No Temperature Intolerance Yes all other systems are reviewed and are negative [facility] Past Medical History Attestation statement: The following information was validated with the patient. Source: old records reviewed and nursing notes reviewed Medical History Acute kidney failure Acute respiratory failure with hypoxia Afib Altered mental status Anemia Anxiety and depression ARDS (adult respiratory distress syndrome) BPH (benign prostatic hyperplasia) Cholecystitis Chronic abdominal pain Constipation COPD (chronic obstructive pulmonary disease) COVID-19 COVID-19 virus infection Current use of anticoagulant therapy Diastolic CHF, acute on chronic Diverticulitis Frequency of micturition GERD (gastroesophageal reflux disease) Headache History of CVA (cerebrovascular accident) History of rib fracture Hypercholesterolemia Hypertension Hypertrophic cardiomyopathy Hypogammaglobulinemia Meningioma Obesity (BMI 30-39.9) Obstructive sleep apnea Paroxysmal atrial fibrillation Peripheral neuropathy Peripheral vascular disease Polyarthralgia Primary osteoarthritis of right knee Protrusion of lumbar intervertebral disc Tear of medial meniscus of knee Urinary incontinence Surgical History H/O colonoscopy History of left knee replacement History of tonsillectomy History of total right hip replacement History of transurethral resection of prostate Family History Family History Father No problems noted. Mother Hx of type 1 diabetes mellitus Social History Social History Household Members: Spouse Housing: House Do you presently have visiting nurse or other home services: No Alcohol intake: never Patient Tobacco Use Status: Former Tobacco user Years Smoked: 30 yrs ago Second Hand Smoke Exposure: No Advance Directives: Yes Advance Directives on File: Yes Advance Directives Date on File: 04/06/20 service: No Current occupational status: unemployed and retired Current occupation: Right Handed Physical Exam ED Vital Signs: Vital Signs - 24 hr 12/17/21 10:41 Temperature 98.7 F Pulse Rate 78 Respiratory Rate 20 Blood Pressure 150/62 H Pulse Oximetry 96 Oxygen Delivery Method Room Air BMI result Body Mass Index 36.6 vital signs have been reviewed as normal and appeared to be correct. Blood pressure 150/62 Heart rate normal. Respiration rate normal. Temperature normal. Oxygen saturation normal. Appearance: Alert. Oriented X3. No acute distress. Head: Normal external exam. Normocephalic. Atraumatic. Eyes: PERRLA. EOMI. Conjunctiva and sclera normal. Eyelids normal. ENT: EAC normal. TM's Normal. Pharynx normal. Uvula midline. Moist mucous membranes. No lesions/ulcerations or masses noted on the tongue. Normal voice. No trismus noted. No drooling noted. No muffled voice noted. Neck: Normal inspection. Neck supple. FROM. No adenopathy. Thyroid Normal. No tracheal deviation noted. No crepitus is noted. No meningeal signs. No neck mass noted. No signs of trauma noted. CVS: Normal heart rate and rhythm. Heart sound normal. Pulses normal throughout. No murmurs/rales/gallops. Respiratory: No respiratory distress. Painless inspiration. Breath sounds normal. No wheezes/rales/rhonchi noted. Chest nontender. No crepitus is noted. No signs of trauma noted. No accessory muscle usage noted or decreased air movement noted. No signs of trauma. Abdomen: Soft and mild TTP tp RLQ/R flank area. Bowel sounds normal in all 4 quadrants. No distention noted. No organomegaly noted. No visible injury noted. Back: No CVA tenderness. Full range of motion noted. Nontender. Skin: Skin warm and dry. Normal skin color. Normal skin turgor. No rashes/lesions/lacerations noted. Extremities: Extremities exhibit normal range of motion and nontender. Neuro: Oriented X 3. No motor deficit. No sensory deficit. Reflexes normal. Normal steady gait. No focal neuro deficits noted. CN's II-XII intact bilaterally? Vascular: + radial pulses/+ 2 distal pedal pulses/+2 dorsalis pedis b/l. Normal cap refill. No cyanosis noted to upper extremity nails and lower extremity toes nails. Course Course Course Narrative: 14pm - 86 year old male with past medical history of AFib on Xarelto, HLD, HTN, CHF, anxiety, depression, BPH, COVID-19, diverticulitis, presenting to the ED complaining?right lower quadrant/right flank pain over the past few days. Reports that he was recently diagnosed with diverticulitis and placed on Augmentin on 11/28/2021 and completed the course of antibiotics and continued having pain therefore his PCP placed him on another course of antibiotics of ciprofloxacin that he recently started and he is taking as prescribed. He reports he is unsure if it is related to the coughing he recently developed over the past 3 days with some mild nasal congestion/rhinorrhea. He reports every time he coughs it hurts in the right lower quadrant. Labs were obtained while the patient was in the waiting room and revealed mild anemia c H/H of 11.9/37.3. AST at 41. Total protein at 6.3. Otherwise all other labs WNL. UA WNL. Pt + for RSV. Pt megative for COVID and Influenza. Plan: Obtain CXR and CT scan of abd/pelvis c IV contrast and reevaluate. Reevaluation(s) Reevaluation #1: - CXR revealed chronic changes and CT scan revealed similar since last CT no acute changes. Will dc home with symptomatic tx and instructions to f/u pcp. Pt understands and agree with plan. Time: 16:21 Medical Decision Making Medical Records Medical records reviewed: Yes I reviewed the patient's medical records. Lab Data Lab results reviewed: Yes I reviewed the patient's lab results. Result diagrams: 12/17/21 11:55 12/17/21 11:55 Labs: Lab Results 12/17/21 12/17/21 12/17/21 Range/Units 10:50 10:58 11:55 WBC 9.6 (4.8-10.8) X10*3/uL RBC 4.14 L (4.60-5.80) X10*6/uL Hgb 11.9 L (14.0-18.0) g/dl Hct 37.3 L (42.0-52.0) % MCV 90.1 (80.0-98.0) fL MCH 28.7 (27.0-33.0) pg MCHC 31.9 (31.0-36.0) g/dl RDW 13.7 (11.0-16.0) % Plt Count 221 (160-400) X10*3/uL MPV 9.6 (9.4-12.4) fL Immature Gran % (Auto) 0.3 (0.0-0.4) % Neut % (Auto) 66.4 (45-73) % Lymph % (Auto) 22.0 (20-40) % [place] % (Auto) 9.4 (2-11) % Eos % (Auto) 1.5 (0-4) % Baso % (Auto) 0.4 (0-2) % Lymph # (Auto) 2.1 (1.2-4.9) X10*3/uL [place] # (Auto) 0.9 (0.1-1.2) X10*3/uL Eos # (Auto) 0.1 (0.0-0.4) X10*3/uL Baso # (Auto) 0.0 (0.0-0.2) X10*3/uL Abs Immat Gran (auto) 0.03 (0.00-0.03) X10*3/uL Absolute Neuts (auto) 6.4 (2.0-8.3) x10*3/uL Absolute Nucleated RBC 0.000 (0.0-0.012) X10*3/uL Nucleated RBC % (auto) 0.0 (0.0-0.2) /100WBC Sodium (135-145) mmol/L Potassium (3.3-5.1) mmol/L Chloride (96-108) mmol/L Carbon Dioxide (22-29) mmol/L Anion Gap (12-20) BUN (9-16) mg/dL Creatinine (0.5-1.4) mg/dL Estim Creat Clear Calc Estimated GFR Random Glucose (60-115) mg/dL Calcium (8.4-10.2) mg/dL Total Bilirubin (0.0-1.0) mg/dL Direct Bilirubin (0.0-0.5) mg/dL AST (5-37) U/L ALT (0-40) U/L Alkaline Phosphatase (39-117) U/L B-Natriuretic Peptide (<100) pg/mL Total Protein (6.5-8.0) g/dL Albumin (3.5-5.0) g/dL Lipase (8-78) U/L Urine Color Yellow Urine Appearance Clear Urine pH 7.0 (5.0-9.0) Ur Specific [place] 1.010 (1.005-1.025) Urine Protein Negative (Neg-Trace) mg/dL Urine Glucose (UA) Negative (Negative) mg/dL Urine Ketones Negative (Negative) mg/dL Urine Blood Negative (Negative) Urine Nitrite Negative (Negative) Ur Leukocyte Esterase Negative (Negative) Influenza Type A (PCR) NEGATIVE (Negative) Influenza Type B (PCR) NEGATIVE (Negative) RSV RNA Qual (PCR) POSITIVE A (Negative) SARS-CoV-2 RNA (RT-PCR) NEGATIVE (Negative) 12/17/21 12/17/21 Range/Units 11:55 11:55 WBC (4.8-10.8) X10*3/uL RBC (4.60-5.80) X10*6/uL Hgb (14.0-18.0) g/dl Hct (42.0-52.0) % MCV (80.0-98.0) fL MCH (27.0-33.0) pg MCHC (31.0-36.0) g/dl RDW (11.0-16.0) % Plt Count (160-400) X10*3/uL MPV (9.4-12.4) fL Immature Gran % (Auto) (0.0-0.4) % Neut % (Auto) (45-73) % Lymph % (Auto) (20-40) % [place] % (Auto) (2-11) % Eos % (Auto) (0-4) % Baso % (Auto) (0-2) % Lymph # (Auto) (1.2-4.9) X10*3/uL [place] # (Auto) (0.1-1.2) X10*3/uL Eos # (Auto) (0.0-0.4) X10*3/uL Baso # (Auto) (0.0-0.2) X10*3/uL Abs Immat Gran (auto) (0.00-0.03) X10*3/uL Absolute Neuts (auto) (2.0-8.3) x10*3/uL Absolute Nucleated RBC (0.0-0.012) X10*3/uL Nucleated RBC % (auto) (0.0-0.2) /100WBC Sodium 144 (135-145) mmol/L Potassium 3.8 D (3.3-5.1) mmol/L Chloride 107 (96-108) mmol/L Carbon Dioxide 25 (22-29) mmol/L Anion Gap 16 (12-20) BUN 16 (9-16) mg/dL Creatinine 0.98 (0.5-1.4) mg/dL Estim Creat Clear Calc 53.8 Estimated GFR > 60 Random Glucose 111 (60-115) mg/dL Calcium 8.7 (8.4-10.2) mg/dL Total Bilirubin 0.4 (0.0-1.0) mg/dL Direct Bilirubin 0.2 (0.0-0.5) mg/dL AST 41 H D (5-37) U/L ALT 31 (0-40) U/L Alkaline Phosphatase 72 D (39-117) U/L B-Natriuretic Peptide 69 (<100) pg/mL Total Protein 6.3 L (6.5-8.0) g/dL Albumin 3.9 (3.5-5.0) g/dL Lipase 17 (8-78) U/L Urine Color Urine Appearance Urine pH (5.0-9.0) Ur Specific [place] (1.005-1.025) Urine Protein (Neg-Trace) mg/dL Urine Glucose (UA) (Negative) mg/dL Urine Ketones (Negative) mg/dL Urine Blood (Negative) Urine Nitrite (Negative) Ur Leukocyte Esterase (Negative) Influenza Type A (PCR) (Negative) Influenza Type B (PCR) (Negative) RSV RNA Qual (PCR) (Negative) SARS-CoV-2 RNA (RT-PCR) (Negative) Imaging Data Chest x-ray: Attestation: I personally reviewed and interpreted this imaging study as follows: Radiologist's impression: FINDINGS: Coarsened interstitial markings are seen bilaterally without significant change. The heart and mediastinal structures are unremarkable. Multilevel healed left rib fractures are seen. Severe right glenohumeral degenerative joint changes are again seen. XR/XR chest 2V IMPRESSION: Coarsened interstitial markings bilaterally are similar to previous studies consistent with chronic changes. No acute cardiopulmonary process. CT scan - abdomen: Attestation: I personally reviewed and interpreted this imaging study as follows: Radiologist's impression: FINDINGS: LUNG BASES: The visualized lung bases are unremarkable.? LIVER, GALLBLADDER, AND BILIARY TREE: Unremarkable. PANCREAS: Unremarkable.? SPLEEN: Unremarkable.? ADRENAL GLANDS: Unremarkable.? KIDNEYS AND URETERS: Small low-attenuation foci bilaterally not requiring follow-up. No nephrolithiasis or hydroureteronephrosis. BLADDER: Unremarkable.? GASTROINTESTINAL TRACT: The stomach is unremarkable. Small medial second segment duodenal diverticuli without abnormality. The remainder the small bowel is unremarkable. No evidence for acute appendicitis. Mild to moderate colonic diverticulosis is seen. Mild mural thickening and pericolonic infiltrative changes are seen at the descending/sigmoid junction in the left lower quadrant. No evidence for perforation or abscess formation. The rectum is unremarkable. ABDOMINAL WALL: Very small fat-containing umbilical hernia. LYMPH NODES: Normal. VASCULAR: Moderate atherosclerosis in the visualized arteries. No aneurysmal dilatation. PELVIC VISCERA: Unremarkable.? OSSEOUS STRUCTURES: L5-S1 severe degenerative disc disease, grade 1 anterolisthesis and bilateral spondylolysis. Mild multilevel degenerative changes.? CT/CT abdomen pelvis w IV con IMPRESSION: ? 1. Mural thickening at the descending/sigmoid junction without significant change compared to previous studies. This suggests chronic changes however, recurrent mild diverticulitis cannot be excluded. ? 2. Other incidental findings detailed above without significant change. ? Fleischner guidelines were followed. Discharge Plan Discharge Clinical Impression: RSV bronchitis, Diverticulitis Patient Disposition: Home, Self-Care Instructions: Respiratory Syncytial Virus (ED), Diverticulitis (ED), Diverticulitis Diet (ED) Prescriptions: New codeine-guaifenesin [Guaifenesin AC] 10-100 mg/5 mL liquid 5 ml PO Q6H PRN (Reason: cold symptoms) Qty: 120 0RF cyclobenzaprine 10 mg tablet 10 mg PO Q8H Qty: 14 0RF No Action Breo Ellipta 200-25 mcg/dose blister with device 1 ea inhalation DAILY Qty: 60 2RF furosemide 40 mg tablet 40 mg PO DAILY Qty: 90 1RF tamsulosin 0.4 mg capsule 0.4 mg PO DAILY 90 Days Qty: 90 3RF verapamil 180 mg capsule,ext rel. pellets 24 hr 180 mg PO DAILY Qty: 90 3RF losartan 100 mg tablet 100 mg PO DAILY Qty: 90 0RF sennosides [Senokot] 8.6 mg tablet 8.6 mg PO DAILY Qty: 30 6RF Xarelto 20 mg tablet 20 mg PO DAILY Qty: 90 1RF Rx Instructions: must administer with evening meal appropriate dose for current kidney function pantoprazole 40 mg tablet,delayed release (DR/EC) 40 mg PO DAILY Qty: 90 0RF atorvastatin 80 mg tablet 80 mg PO BEDTIME potassium chloride 10 mEq tablet extended release 1 tab PO BID albuterol sulfate [Ventolin HFA] 90 mcg/actuation HFA aerosol inhaler 2 puff inhalation Q6H PRN (Reason: shortness of breath or wheezing) Qty: 8.5 0RF carvedilol 25 mg tablet 25 mg PO BID Linzess 145 mcg capsule 145 mcg PO DAILY Qty: 90 2RF sucralfate 100 mg/mL suspension 10 ml PO BEDTIME Qty: 400 3RF cetirizine [Zyrtec] 10 mg tablet 10 mg PO DAILY PRN (Reason: allergy symptoms) Qty: 30 0RF docusate sodium 100 mg capsule 100 mg PO DAILY Qty: 30 3RF Referrals: Physician,Unknown J [Primary Care Provider] - 2 days (your pcp) Print Language: Citizen Of [place]
[2021-12-17] MEDS: iohexoL 350 MG/ML 100 ML INFUS..BTL IV (14:41)
[2021-12-17 15:01] LABS: B Type Natriuretic Peptide 69 pg/mL (<100)
== END 2021-12-17 17:06 | disposition home or self-care (01) ==
PROVIDERS: Physician Assistant Medical; Emergency Provider Emergency Medicine Emergency Medical Services
DX: J20.5 Acute bronchitis due to respiratory syncytial virus (principal); K57.32 Diverticulitis of large intestine without perforation or abscess without bleeding; R10.31 Right lower quadrant pain; R06.02 Shortness of breath; F33.1 Major depressive disorder, recurrent, moderate; I10 Essential (primary) hypertension; I48.91 Unspecified atrial fibrillation; Z20.822 Contact with and (suspected) exposure to COVID-19; Z79.01 Long term (current) use of anticoagulants; Z79.899 Other long term (current) drug therapy; Z87.891 Personal history of nicotine dependence
CPT/HCPCS: 0241U; 71046; 74177; 80048; 80076; 81003; 83690; 83880; 85025; 99283; 99284; Q9967

== ENCOUNTER 2022-01-30 02:08 | Inpatient (IN) | payer OTHER, SELFPAY ==
[2022-01-30] VITALS (9 sets, daily range): BP systolic 139–209; BP diastolic 60–88; PULSE 55–68; RESP 11–21; TEMP 36.1–36.9; O2SAT 97–99; BMI 38.4
--- NOTE | ~2022-01-30 | MR_ITS ---
MRI OF THE BRAIN WITHOUT IV CONTRAST INDICATION: CVA. COMPARISON: Head CT January 30, 2022. TECHNIQUE: Multiplanar multisequence MR imaging of the brain was obtained without IV contrast. FINDINGS: Etat crible appearance of the basal ganglia bilaterally as the sequela of chronic hypertension. An extra-axial nodule along the floor the anterior cranial fossa is better demonstrated on prior postcontrast studies and again most likely reflects a meningioma which is likely stable. There is global cerebral volume loss and there is mild chronic microangiopathy. There is no hydrocephalus, extra-axial surface collection, or herniation. The major flow voids at the skull base are preserved. There is no acute infarct on diffusion-weighted imaging. There is no intracranial hemorrhage on the gradient recalled echo acquisition. The midline structures are normal. The cerebellar tonsils are normally positioned. The cerebellum and brainstem are normal. The craniocervical junction is normal. There are multiple foci of bone marrow replacement scattered throughout the bony calvarium that are nonspecific and that can be further assessed with a bone scan. MR/MR head/brain wo con IMPRESSION: - There are multiple foci of bone marrow replacement scattered throughout the bony calvarium that are nonspecific and that can be further assessed with a bone scan. - An extra-axial nodule along the floor the anterior cranial fossa is better demonstrated on prior postcontrast studies and again most likely reflects a meningioma which is likely stable. - There are no acute intracranial findings. There are no acute infarcts. - Etat crible appearance of the basal ganglia bilaterally as the sequela of chronic hypertension. There is global cerebral volume loss and there is mild chronic microangiopathy.
--- NOTE | ~2022-01-30 | CT_ITS ---
CT ANGIOGRAM NECK WITH CONTRAST CT ANGIOGRAM BRAIN WITH CONTRAST CLINICAL INFORMATION: Facial droop. COMPARISON: Brain MRI January 30, 2022. Head CT January 30, 2022. TECHNIQUE: Test bolus sequences followed by intravenous administration 70 mL of Omnipaque 350. Helical imaging was performed in the axial plane from the thoracic inlet to the skull vertex. Delayed postcontrast imaging of the head was also performed. The data was processed at the staff technologist workstation for generation of MIP sequences. Angled MIPs and volume rendered reformatted images were also generated at an offline 3D workstation under concurrent supervision. Stenoses are assessed in accordance with NASCET criteria unless otherwise indicated. This CT examination was performed using dose optimization techniques as appropriate, variously including the following: *Automated exposure control *Adjustment of mA and/or kV according to patient size (this includes techniques or standardized protocols for targeted exams where dose is matched to indication/reason for exam; i.e. extremities or head) *Use of iterative reconstruction technique FINDINGS: BRAIN: An extra-axial nodule along the floor of the anterior cranial fossa is better demonstrated on prior postcontrast MRI studies and again most likely reflects a meningioma which is likely stable. Etat crible appearance of the basal ganglia bilaterally as the sequela of chronic hypertension. There is global cerebral volume loss and there is mild chronic microangiopathy.[There is no intracranial hemorrhage, hydrocephalus, extra-axial surface collection, midline shift, or other herniation pattern. Nunez to white matter differentiation is diffusely maintained without evidence of an evolved acute territorial infarct. The basilar cisterns are preserved. No significant soft tissue abnormality. Multiple calvarial lesions are better demonstrated on the previous MRI study with better assessed with a whole-body bone scan. CERVICAL SOFT TISSUES AND LUNG APICES: Imaged upper lungs are clear. Multilevel cervical spondylosis. No significant soft tissue findings are appreciated within the neck. NECK CTA: [There is a classic 3 vessel configuration of the aortic arch. Proximal arch vessels are non-stenotic. The right vertebral artery is dominant. No significant ostial stenosis is visualized on either side. Both vertebral arteries are widely patent throughout their extracranial cervical course. Both common carotid arteries are normal in course and caliber.] There is atherosclerotic disease involving the carotid bifurcations bilaterally without significant stenosis involving the internal carotid arteries on either side. BRAIN CTA: [There is normal opacification of major intracranial arteries. No focal flow-limiting stenosis nor discrete proximal large artery occlusion. No aneurysm. Timing of the contrast bolus allows assessment of the major dural venous sinuses, which all opacify normally] CT/CT angio head neck stroke IMPRESSION: - There are no acute intracranial findings. There are no acute infarcts. - No acute arterial occlusions intracranially. - There is atherosclerotic disease involving the carotid bifurcations bilaterally without significant stenosis involving the internal carotid arteries on either side. - An extra-axial nodule along the floor of the anterior cranial fossa is better demonstrated on prior postcontrast MRI studies and again most likely reflects a meningioma which is likely stable. - Etat crible appearance of the basal ganglia bilaterally as the sequela of chronic hypertension. There is global cerebral volume loss and there is mild chronic microangiopathy. - Multiple calvarial lesions are better demonstrated on the previous MRI study with better assessed with a whole-body bone scan.
--- NOTE | ~2022-01-30 | US_ITS ---
EXAMINATION: US EXTRACRANIAL CAROTID DUPLEX, BILATERAL CLINICAL INFORMATION: Stroke COMPARISON: None TECHNIQUE: Real-time ultrasound and Doppler techniques (integrating B-mode 2-D vascular images, Doppler spectral analysis and color-flow Doppler imaging) were utilized to interrogate the extracranial carotid arteries, the vertebral arteries and proximal subclavian arteries bilaterally. The degree of stenosis is determined by criteria similar to NASCET. FINDINGS: Right Side: 1. There is mild atherosclerotic plaque seen in the bifurcation/proximal ICA region. 2. The common carotid artery PSV proximally is 65 cm/s and distally 51 cm/s. 3. The proximal internal carotid artery velocities are 97 cm/s systolic and 21 cm/s diastolic. 4. The proximal external carotid artery PSV is 86 cm/s. 5. The vertebral artery shows antegrade flow. 6. The subclavian artery waveforms are normal. Left Side: 1. There is mild atherosclerotic plaque seen in the bifurcation/proximal ICA region. 2. The common carotid artery PSV proximally is 68 cm/s and distally 50 cm/s. 3. The proximal internal carotid artery velocities are 59 cm/s systolic and 13 cm/s diastolic. 4. The proximal external carotid artery PSV is 88 cm/s. 5. The vertebral artery shows antegrade flow. 6. The subclavian artery waveforms are normal. US/US carotid duplex BI IMPRESSION: 1. RIGHT: Minimal, non-hemodynamically significant stenosis of the proximal right internal carotid artery corresponding to a 0-49% stenosis by velocity criteria. 2. LEFT: Minimal, non-hemodynamically significant stenosis of the proximal left internal carotid artery corresponding to a 0-49% stenosis by velocity criteria.
--- NOTE | ~2022-01-30 | CT_ITS ---
EXAMINATION: CT HEAD WITHOUT CONTRAST (STROKE PROTOCOL) CLINICAL INFORMATION: Stroke protocol. Stroke. Resolved left weakness. COMPARISON: None TECHNIQUE: Contiguous axial imaging was performed from the skull base to vertex without intravenous administration of contrast. This CT examination was performed using dose optimization techniques as appropriate, variously including the following: *Automated exposure control *Adjustment of mA and/or kV according to patient size (this includes techniques or standardized protocols for targeted exams where dose is matched to indication/reason for exam; i.e. extremities or head) *Use of iterative reconstruction technique DLP: 774 mGy-cm FINDINGS: Mild diffuse commensurate prominence of ventricles and sulci and mild periventricular white matter patchy hypodensities are visualized. No intrarenal hemorrhage, tumors or acute infarcts are noted. Segmental calcific atherosclerosis is present in the cavernous portions of the internal carotid arteries. Focal calcific atherosclerosis is noted in the intradural segment of the right vertebral artery. Bilateral ocular senescent calcifications are identified. No significant opacification of the visualized paranasal sinuses, mastoid air cells and middle ear cavities. Mild hyperostosis frontalis interna. CT/CT head for stroke IMPRESSION: *No acute intracranial abnormalities. *Mild chronic microangiopathic ischemic changes. This result was discussed with Mariusz Javed MD by telephone at 01/30/2022 2:28 AM and it was ascertained that the content and urgency of the report was understood at the time of direct communication.
--- NOTE | ~2022-01-30 | XR_ITS ---
EXAMINATION: XR CHEST CLINICAL INFORMATION: Stroke. COMPARISON: Chest radiograph 12/17/2021. CT abdomen pelvis 12/17/2021. TECHNIQUE: Frontal view of the chest was obtained. FINDINGS: Cardiac silhouette is normal in size. Dense aortic calcific atherosclerosis noted. Mild blunting of left costophrenic sulcus is noted and corresponds with mild pleural thickening visualized better advantage on the comparison CT. No effusions or pneumothoraces identified. A normal pattern of pulmonary vasculature is visualized. Partial visualization is made of chronic posttraumatic deformity and arthropathic changes of the right humeral head. XR/XR chest 1V IMPRESSION: *No acute cardiopulmonary abnormalities.
--- NOTE | 2022-01-30 02:13 | ECG_ITS ---
Test Reason : STROKE Blood Pressure : / mmHG Vent. Rate : 059 BPM Atrial Rate : 059 BPM P-R Int : 278 ms QRS Dur : 132 ms QT Int : 478 ms P-R-T Axes : 062 -17 079 degrees QTc Int : 473 ms Sinus bradycardia with 1st degree A-V block with Premature atrial complexes Right bundle branch block Possible Lateral infarct , age undetermined Abnormal ECG When compared with ECG of 14-NOV-2021 19:39, Premature atrial complexes are now Present Sinus rhythm is no longer with 2nd degree A-V block (Mobitz I) Minimal criteria for Inferior infarct are now Present Referred By: Mariusz Javed Electronically Signed By:DEON DALAL MD
--- NOTE | 2022-01-30 02:14 | ED_ITS ---
HPI - Neuro Symptoms/Deficit General Chief Complaint: Stroke Stated Complaint: stroke alert Time Seen by Provider: 01/30/22 02:18 Source: patient and EMS Mode of arrival: EMS Limitations: no limitations History of Present Illness HPI Narrative: 86-year-old male brought in by EMS for stroke alert. Patient last known well at 22:00 last night went to bed woke up at 01:00 feeling left upper extremities weakness and noted left facial droop patient with history of AFib on Xarelto. Patient on arrival was able to raise left upper extremities with no weakness, no facial droop was appreciated however patient is not wearing his denture so subtle left facial droop cannot be ruled out completely. No CP, no SOB, no nausea, no vomiting. Related Data Home Medications Medication Instructions Recorded Confirmed atorvastatin 80 mg tablet 80 mg PO BEDTIME 06/03/20 11/14/21 carvedilol 25 mg tablet 25 mg PO BID 12/04/20 11/14/21 potassium chloride 10 mEq 1 tab PO BID 11/14/21 11/14/21 tablet,extended release Previous Rx's Medication Instructions Recorded fluticasone furoate 200 1 ea inhalation DAILY #60 ea 07/05/20 mcg-vilanterol 25 mcg/dose inhalation powder (Breo Ellipta) furosemide 40 mg tablet 40 mg PO DAILY #90 tabs 03/11/21 tamsulosin 0.4 mg capsule 0.4 mg PO DAILY 90 days #90 caps 03/29/21 verapamil 180 mg 24 hr 180 mg PO DAILY #90 caps 03/29/21 capsule,extended release losartan 100 mg tablet 100 mg PO DAILY #90 tabs 07/02/21 linaclotide 145 mcg capsule 145 mcg PO DAILY #90 caps 07/15/21 (Linzess) sennosides 8.6 mg tablet (Senokot) 8.6 mg PO DAILY #30 tabs 07/19/21 rivaroxaban 20 mg tablet (Xarelto) 20 mg PO DAILY #90 tabs 08/16/21 pantoprazole 40 mg tablet,delayed 40 mg PO DAILY #90 tabs 10/27/21 release albuterol sulfate 90 mcg/actuation 2 puff inhalation Q6H PRN 11/16/21 aerosol inhaler (Ventolin HFA) shortness of breath or wheezing #8.5 grams cetirizine 10 mg tablet (Zyrtec) 10 mg PO DAILY PRN allergy 12/10/21 symptoms #30 tabs docusate sodium 100 mg capsule 100 mg PO DAILY #30 caps 12/10/21 sucralfate 100 mg/mL oral 10 ml PO BEDTIME #400 mL 12/10/21 suspension codeine 10 mg-guaifenesin 100 mg/5 5 ml PO Q6H PRN cold symptoms #120 12/17/21 mL oral liquid (Guaifenesin AC) mL cyclobenzaprine 10 mg tablet 10 mg PO Q8H #14 tabs 12/17/21 Allergies Allergy/AdvReac Type Severity Reaction Status Date / Time dabigatran etexilate Allergy Intermediate ITCHING Verified 12/10/21 16:26 [From PRADAXA] JORGE L Inhibitors Allergy Mild UNKNOWN, Verified 12/10/21 16:26 [Jorge L Inhibitors] FOUND IN MEDICAL RECORD 04/[address] GIPSON ezetimibe [From Zetia] Allergy Mild ANAPHYLAXIS Verified 12/10/21 16:26 apixaban [From ELIQUIS] Allergy Unknown UNKNOWN, Verified 12/10/21 16:26 rash rosuvastatin [Crestor] Allergy Unknown myalgia Verified 12/10/21 16:26 Review of Systems Review of Systems: All other systems are reviewed and are negative Constitutional: Reports as per HPI and Reports no additional constitutional complaints Eyes: Reports as per HPI and Reports no additional eye complaints Reports system reviewed and no additional complaints, except as documented Cardiovascular: Reports as per HPI and Reports no additional cardiovascular complaints Respiratory: Reports as per HPI and Reports no additional respiratory complaints Gastrointestinal: Reports as per HPI and Reports no additional gastrointestinal complaints Genitourinary: Reports no additional female genitourinary complaints Musculoskeletal: Reports no additional musculoskeletal complaints Skin/Breast: Reports system reviewed and no additional complaints, except as docu Psychiatric: Reports no additional psychiatric complaints Endocrine: Reports no additional endocrine complaints Hematologic/Lymphatic: Reports no additional hematologic/lymphatic complaints Allergic/Immunologic: Reports no additional allergic/immunologic complaints Reports system reviewed and no additional complaints, except as documented and Reports Abnormal speech present [facility] Past Medical History Medical History Acute kidney failure Acute respiratory failure with hypoxia Afib Altered mental status Anemia Anxiety and depression ARDS (adult respiratory distress syndrome) BPH (benign prostatic hyperplasia) Cholecystitis Chronic abdominal pain Constipation COPD (chronic obstructive pulmonary disease) COVID-19 COVID-19 virus infection Current use of anticoagulant therapy Diastolic CHF, acute on chronic Diverticulitis Frequency of micturition GERD (gastroesophageal reflux disease) Headache History of CVA (cerebrovascular accident) History of rib fracture Hypercholesterolemia Hypertension Hypertrophic cardiomyopathy Hypogammaglobulinemia Meningioma Obesity (BMI 30-39.9) Obstructive sleep apnea Paroxysmal atrial fibrillation Peripheral neuropathy Peripheral vascular disease Polyarthralgia Primary osteoarthritis of right knee Protrusion of lumbar intervertebral disc Tear of medial meniscus of knee Urinary incontinence Surgical History H/O colonoscopy History of left knee replacement History of tonsillectomy History of total right hip replacement History of transurethral resection of prostate Family History Family History Father No problems noted. Mother Hx of type 1 diabetes mellitus Social History Social History Household Members: Spouse Housing: House Do you presently have visiting nurse or other home services: No Alcohol intake: never Patient Tobacco Use Status: Former Tobacco user Years Smoked: 30 yrs ago Smoked in Last 30 Days: No Second Hand Smoke Exposure: No Use of substances other than those prescribed or required for medical reasons: No Advance Directives: Yes Advance Directives on File: Yes Advance Directives Date on File: 04/06/20 service: No Current occupational status: unemployed and retired Current occupation: Right Handed Physical Exam Vital Signs: Vital Signs: Last Vital Signs Temp 98.3 F 01/30/22 02:43 Pulse 62 01/30/22 02:43 Resp 15 01/30/22 02:43 BP 168/65 H 01/30/22 02:43 Pulse Ox 99 01/30/22 02:43 O2 Del Method 01/30/22 02:43 BMI result Body Mass Index 38.4 Vital signs have been reviewed as appeared to be correct. Blood pressure normal. Heart rate normal. Respiration rate normal. Temperature normal. Oxygen saturation normal. Appearance: Alert. Oriented X3. No acute distress. Head: Normal external exam. Normocephalic. Atraumatic. No Norris signs noted. No raccoon eyes noted Eyes: PERRLA. EOMI. Conjunctiva and sclera normal. Eyelids normal. ENT: TM's Normal. Pharynx normal. Uvula midline. Moist mucous membranes. No trismus noted. No drooling noted. No muffled voice noted. Neck: Normal inspection. Neck supple. FROM. No adenopathy. Thyroid Normal. No meningeal signs. No neck mass noted. CVS: Normal heart rate and rhythm. Heart sound normal. No murmurs noted. Pulses normal throughout. Respiratory: No respiratory distress. Painless inspiration. Breath sounds normal. No wheezes/rales/rhonchi noted. Chest nontender. No accessory muscle usage noted or decreased air movement noted. Abdomen: Soft and nontender. Bowel sounds normal in all 4 quadrants. No distention noted. No organomegaly noted. No visible injury noted. Back: No CVA tenderness. Full range of motion noted. Skin: Skin warm and dry. Normal skin color. Normal skin turgor. No rashes/lesions/lacerations noted. Extremities: No lower extremity edema. Extremities exhibit normal range of motion. Extremities nontender. Neuro: Oriented X 3. Cranial nerve exam: II-XII are grossly intact No motor deficit. No sensory deficit. Reflexes normal. Course Course Course Narrative: Patient is not a candidate for oral thrombolysis because patient's symptoms is minor and improved and patient is taking Xarelto for atrial fibrillation. Patient's symptoms has improved patient was monitored in the emergency department remained stable with unremarkable finding on the labs or x-ray or head CT will admit for further neurological evaluation. Medical Decision Making Medical Decision Making Differential Diagnoses: Differential diagnosis (Stroke/TIA/electrolyte disturbance/hypoglycemia) Consideration of admission/observation: Consideration of Admission/Observation Discussion of management with other physician/healthcare provider/other source (e.g., hospitalist, service loss control consultant, behavioral health): Discussion w/other physician/healthcare provider Management of the patient was discussed with: Hospitalist My interpretation is Lab Attestation: I reviewed the patient's lab results. Independent interpretation of EKG, rhythm strip, radiology study: Independent interp EKG,rhythm strip, radiology study I performed an independent interpretation of the: EKG My interpretation is Sinus bradycardia with first-degree AV block with occasional PACs, right bundle branch block. Discussion of test interpretation with radiology: Discussion of test interpretation with radiology NIH Stroke Scale Time: 02:18 Level of Consciousness: Alert Level of Consciousness Questions: Answers both questions correctly Level of Consciousness Commands: Performs both tasks correctly Best Gaze: Normal Visual: No visual loss Facial Palsy: Normal Motor Arm (Right): No drift Motor Arm (Left): No drift Motor Leg (Right): No drift Motor Leg (Left): No drift Limb Ataxia: Absent Sensory: Normal Best Language: No aphasia Dysarthia: Normal Extinction and Inattention: No abnormality Score: 0 Discharge Plan Discharge Clinical Impression: Brain TIA Patient Disposition: Admitted As Inpatient Prescriptions: No Action Breo Ellipta 200-25 mcg/dose blister with device 1 ea inhalation DAILY Qty: 60 2RF furosemide 40 mg tablet 40 mg PO DAILY Qty: 90 1RF tamsulosin 0.4 mg capsule 0.4 mg PO DAILY 90 Days Qty: 90 3RF verapamil 180 mg capsule,ext rel. pellets 24 hr 180 mg PO DAILY Qty: 90 3RF losartan 100 mg tablet 100 mg PO DAILY Qty: 90 0RF sennosides [Senokot] 8.6 mg tablet 8.6 mg PO DAILY Qty: 30 6RF Xarelto 20 mg tablet 20 mg PO DAILY Qty: 90 1RF Rx Instructions: must administer with evening meal appropriate dose for current kidney function pantoprazole 40 mg tablet,delayed release (DR/EC) 40 mg PO DAILY Qty: 90 0RF atorvastatin 80 mg tablet 80 mg PO BEDTIME potassium chloride 10 mEq tablet extended release 1 tab PO BID albuterol sulfate [Ventolin HFA] 90 mcg/actuation HFA aerosol inhaler 2 puff inhalation Q6H PRN (Reason: shortness of breath or wheezing) Qty: 8.5 0RF codeine-guaifenesin [Guaifenesin AC] 10-100 mg/5 mL liquid 5 ml PO Q6H PRN (Reason: cold symptoms) Qty: 120 0RF cyclobenzaprine 10 mg tablet 10 mg PO Q8H Qty: 14 0RF carvedilol 25 mg tablet 25 mg PO BID Linzess 145 mcg capsule 145 mcg PO DAILY Qty: 90 2RF sucralfate 100 mg/mL suspension 10 ml PO BEDTIME Qty: 400 3RF cetirizine [Zyrtec] 10 mg tablet 10 mg PO DAILY PRN (Reason: allergy symptoms) Qty: 30 0RF docusate sodium 100 mg capsule 100 mg PO DAILY Qty: 30 3RF
[2022-01-30 02:33] LABS: Glucose, Whole Blood 105 mg/dL (60-115)
[2022-01-30 02:33] LABS: MANUAL DIFF FLAG NO
[2022-01-30 02:33] LABS: Prothrombin Time Whole Bld POC 21.3 sec (11.1-13.5); ~PT, ~INR - Anti Coag Clinic 1.8 (0.9-1.1)
[2022-01-30 02:34] LABS: Basophils Percent Auto 0.4 % (0-2); Eosinophils Absolute Auto 0.2 X10*3/uL (0.0-0.4); Eosinophils Percent Auto 2.4 % (0-4); Hemoglobin 12.2 g/dl (14.0-18.0); Imm Gran Abs Auto 0.02 X10*3/uL (0.00-0.03); Imm Gran Pct Auto 0.3 % (0.0-0.4); Lymphocytes Absolute Auto 2.3 X10*3/uL (1.2-4.9); Lymphocytes Percent Auto 30.9 % (20-40); Mean Corpuscular HGB Conc 32.1 g/dl (31.0-36.0); Mean Corpuscular Hemoglobin 28.6 pg (27.0-33.0); Mean Platelet Volume 9.5 fL (9.4-12.4); Monocytes Absolute Auto 0.6 X10*3/uL (0.1-1.2); Monocytes Percent Auto 7.7 % (2-11); Neutrophils Absolute Auto 4.4 x10*3/uL (2.0-8.3); Neutrophils Percent Auto 58.3 % (45-73); Platelet Count 205 X10*3/uL (160-400); Red Blood Count 4.27 X10*6/uL (4.60-5.80); Red Cell Distribution Width 13.4 % (11.0-16.0); White Blood Count 7.6 X10*3/uL (4.8-10.8)
[2022-01-30 02:41] LABS: INTERNATIONAL NORM RATIO 2.4 (0.9-1.1); Prothrombin Time 28.5 SEC (10.0-13.1)
[2022-01-30 02:43] LABS: Partial Thromboplastin Time 43.6 SEC (26.0-36.4)
[2022-01-30 02:44] LABS: Stroke Lab Use COMPLETE
--- NOTE | 2022-01-30 02:49 | PC.NURSE ---
Pt aox4. GCS 15. Speech is clear and appropriate. Answers questions appropriately. Breaths are even and unlabored. HR 62. Normal sinus rhythm. Abd distented and tender. Active bowel sounds in all quadrants. Minimal bilateral edema noted on lower extremities. Skin pink warm and dry. Pt able to ambulate from stretcher to bed. Able to reposition self in bed. Pt able to move all extremities with some left sided weakness. Pt reports headache, 4/10. MD aware.
[2022-01-30 02:53] LABS: COVID-19 Test Negative (Negative)
[2022-01-30 03:03] LABS: Troponin-I High Sensitivity 8.8 ng/L (<3.5-35.0)
[2022-01-30 03:10] LABS: Anion Gap 13 (12-20); Blood Urea Nitrogen 19 mg/dL (9-16); Carbon Dioxide 25 mmol/L (22-29); Chloride 111 mmol/L (96-108); Creatinine Clr Calc Pharmacy 55.8; Estimated Glomerular Filt Rate > 60; Glucose Random 99 mg/dL (60-115); Potassium 3.9 mmol/L (3.3-5.1); Sodium 145 mmol/L (135-145)
--- NOTE | 2022-01-30 04:03 | P.HPHOSP_ITS ---
History of Present Illness Date of Service: 01/30/22 Chief Complaint: facial droop This is a 85-year-old male with a pertinent history of prior CVA, paroxysmal atrial fibrillation on anticoagulation, benign prostatic hyperplasia, essential hypertension, gastroesophageal reflux disease who presents to the emergency department for evaluation of left extremity weakness and facial droop. Patient states he went to bed at 22:00 and around 01:00 patient felt left upper extremity weakness. At the same time, his noted left facial droop. Both symptoms resolved by the time the patient was brought to the ER. He is on Xarelto for atrial fibrillation and states he is compliant with it. Not on antiplatelet agent. Patient denies fever, chills, chest discomfort, palpitations, shortness of breath, loss of consciousness, tongue bite, urinary or bowel incontinence, shaky movement of extremities, abdominal pain, changes in urinary or bowel habits Review of Systems Constitutional: Constitutional: Reports weakness Cardiovascular: Cardiovascular: Reports no additional cardiovascular complaints Respiratory: Respiratory: Reports no additional respiratory complaints Gastrointestinal: Gastrointestinal: Reports no additional gastrointestinal complaints Genitourinary: Genitourinary: Reports no additional male genitourinary complaints Neurologic: Reports weakness Comments: Facial droop [facility] Medical History Acute kidney failure Acute respiratory failure with hypoxia Afib Altered mental status Anemia Anxiety and depression ARDS (adult respiratory distress syndrome) BPH (benign prostatic hyperplasia) Cholecystitis Chronic abdominal pain Constipation COPD (chronic obstructive pulmonary disease) COVID-19 COVID-19 virus infection Current use of anticoagulant therapy Diastolic CHF, acute on chronic Diverticulitis Frequency of micturition GERD (gastroesophageal reflux disease) Headache History of CVA (cerebrovascular accident) History of rib fracture Hypercholesterolemia Hypertension Hypertrophic cardiomyopathy Hypogammaglobulinemia Meningioma Obesity (BMI 30-39.9) Obstructive sleep apnea Paroxysmal atrial fibrillation Peripheral neuropathy Peripheral vascular disease Polyarthralgia Primary osteoarthritis of right knee Protrusion of lumbar intervertebral disc Tear of medial meniscus of knee Urinary incontinence Family History Father No problems noted. Mother Hx of type 1 diabetes mellitus Surgical History H/O colonoscopy History of left knee replacement History of tonsillectomy History of total right hip replacement History of transurethral resection of prostate Social History Household Members: Spouse Housing: House Do you presently have visiting nurse or other home services: No Alcohol intake: never Patient Tobacco Use Status: Former Tobacco user Years Smoked: 30 yrs ago Smoked in Last 30 Days: No Second Hand Smoke Exposure: No Use of substances other than those prescribed or required for medical reasons: No Advance Directives: Yes Advance Directives on File: Yes Advance Directives Date on File: 04/06/20 service: No Current occupational status: unemployed and retired Current occupation: Right Handed Meds Allergies Allergy/AdvReac Type Severity Reaction Status Date / Time dabigatran etexilate Allergy Intermediate ITCHING Verified 12/10/21 16:26 [From PRADAXA] JORGE L Inhibitors Allergy Mild UNKNOWN, Verified 12/10/21 16:26 [Jorge L Inhibitors] FOUND IN MEDICAL RECORD 04/[address] GIPSON ezetimibe [From Zetia] Allergy Mild ANAPHYLAXIS Verified 12/10/21 16:26 apixaban [From ELIQUIS] Allergy Unknown UNKNOWN, Verified 12/10/21 16:26 rash rosuvastatin [Crestor] Allergy Unknown myalgia Verified 12/10/21 16:26 Home Medications Medication Instructions Recorded Confirmed Last Taken Type atorvastatin 80 mg tablet 80 mg PO BEDTIME 06/03/20 11/14/21 07/09/10 History carvedilol 25 mg tablet 25 mg PO BID 12/04/20 11/14/21 Unknown History potassium chloride 10 mEq 1 tab PO BID 11/14/21 11/14/21 Unknown History tablet,extended release Physical Exam Vital Signs and Narrative: Vital Signs: Last Vital Signs Temp 98.3 F 01/30/22 02:43 Pulse 62 01/30/22 02:43 Resp 15 01/30/22 02:43 BP 168/65 H 01/30/22 02:43 Pulse Ox 99 01/30/22 02:43 O2 Del Method 01/30/22 02:43 BMI result Body Mass Index 38.4 Elderly male lying in ER bed in no distress Neck supple, no JVD Regular rate and rhythm, S1-S2 heard Decreased breath sound at bases Abdomen soft nontender, no guarding, no rigidity Patient is awake, alert and oriented to self, place, disoriented to time ; no weakness in bilateral upper and lower extremity, no nystagmus, tongue and uvula midline, no facial droop Psych: Normal mood No pedal edema Results Labs CBC and Chem 7: 01/30/22 02:29 01/30/22 02:29 Labs: Laboratory Results - last 24 hr 01/30/22 01/30/22 01/30/22 02:24 02:28 02:29 MCV 89.0 MCH 28.6 MCHC 32.1 RDW 13.4 Plt Count 205 MPV 9.5 Immature Gran % (Auto) 0.3 Neut % (Auto) 58.3 Lymph % (Auto) 30.9 Hamlin % (Auto) 7.7 Eos % (Auto) 2.4 Baso % (Auto) 0.4 Lymph # (Auto) 2.3 [place]lin # (Auto) 0.6 Eos # (Auto) 0.2 Baso # (Auto) 0.0 Abs Immat Gran (auto) 0.02 Absolute Neuts (auto) 4.4 Absolute Nucleated RBC 0.000 Nucleated RBC % (auto) 0.0 PT Whole Blood PT 21.3 H INR Whole Blood INR 1.8 H APTT Anion Gap Estim Creat Clear Calc Estimated GFR POC Glucose Random Glucose Calcium Total Creatine Kinase Troponin I High Sens 8.8 COVID-19 (FERMIN) COVID-19 Clin Com 01/30/22 01/30/22 01/30/22 02:29 02:29 02:29 MCV MCH MCHC RDW Plt Count MPV Immature Gran % (Auto) Neut % (Auto) Lymph % (Auto) Hamlin % (Auto) Eos % (Auto) Baso % (Auto) Lymph # (Auto) Hamlin # (Auto) Eos # (Auto) Baso # (Auto) Abs Immat Gran (auto) Absolute Neuts (auto) Absolute Nucleated RBC Nucleated RBC % (auto) PT 28.5 H Whole Blood PT INR 2.4 H Whole Blood INR APTT 43.6 H Anion Gap 13 Estim Creat Clear Calc 55.8 Estimated GFR > 60 POC Glucose Random Glucose 99 Calcium 9.0 Total Creatine Kinase 44 Troponin I High Sens COVID-19 (FERMIN) Negative COVID-19 Clin Com See Note 01/30/22 02:30 MCV MCH MCHC RDW Plt Count MPV Immature Gran % (Auto) Neut % (Auto) Lymph % (Auto) Hamlin % (Auto) Eos % (Auto) Baso % (Auto) Lymph # (Auto) Hamlin # (Auto) Eos # (Auto) Baso # (Auto) Abs Immat Gran (auto) Absolute Neuts (auto) Absolute Nucleated RBC Nucleated RBC % (auto) PT Whole Blood PT INR Whole Blood INR APTT Anion Gap Estim Creat Clear Calc Estimated GFR POC Glucose 105 Random Glucose Calcium Total Creatine Kinase Troponin I High Sens COVID-19 (FERMIN) COVID-19 Clin Com Imaging Radiologist's Impressions: Impressions Head CT 01/30/22 02:22 IMPRESSION: *No acute intracranial abnormalities. *Mild chronic microangiopathic ischemic changes. This result was discussed with Mariusz Javed MD by telephone at 01/30/2022 2:28 AM and it was ascertained that the content and urgency of the report was understood at the time of direct communication. Chest X-Ray 01/30/22 02:25 IMPRESSION: *No acute cardiopulmonary abnormalities. Assessment and Plan (1) Brain TIA: Status: Acute (2) Paroxysmal atrial fibrillation: Status: Acute (3) Obstructive sleep apnea: Status: Acute (4) Obesity (BMI 30-39.9): Status: Acute (5) History of CVA (cerebrovascular accident): Status: Acute Plan This is a 85-year-old male with a pertinent history of prior CVA, paroxysmal atrial fibrillation on anticoagulation, benign prostatic hyperplasia, essential hypertension, gastroesophageal reflux disease who presents to the emergency depa rtment for evaluation of left extremity weakness and facial droop. #. Concern for TIA -will admit patient with cardiac monitoring. Ordered MRI of the brain. Obtaining transthoracic echo, A1c, lipid panel and carotid Doppler ultrasound to complete workup. Consulted Neurology, appreciate assistance. Patient anticoagulated with Xarelto and on high-intensity statin. Not on antiplatelet agent. #.? BPH on Flomax #.? COPD on fluticasone and vilanterol.? No concern for exacerbation at the time of admission #.? Paroxysmal atrial fibrillation -rate well controlled on admission.? Continue Xarelto #.? Gastroesophageal reflux disease -continue PPI #.? Essential hypertension -continue home medications DVT prophylaxis: On Xarelto Code status: Full code NPO until patient passes swallow screen Will admit as inpatient for stroke workup. Neurology consult pending Quality Stroke Does the patient have a stroke diagnosis?: No VTE Prior VTE?: No VTE Risk Level:: Medical - moderate - high VTE Device Contraindication: Treatment Not Indicated VTE Drug Contraindication: N/A - Med Ordered
[2022-01-30 06:51] LABS: MANUAL DIFF FLAG NO
[2022-01-30 06:53] LABS: Basophils Percent Auto 0.4 % (0-2); Eosinophils Absolute Auto 0.2 X10*3/uL (0.0-0.4); Eosinophils Percent Auto 2.3 % (0-4); Hematocrit 34.5 % (42.0-52.0); Imm Gran Abs Auto 0.02 X10*3/uL (0.00-0.03); Imm Gran Pct Auto 0.3 % (0.0-0.4); Lymphocytes Absolute Auto 2.1 X10*3/uL (1.2-4.9); Lymphocytes Percent Auto 28.1 % (20-40); Mean Corpuscular HGB Conc 31.9 g/dl (31.0-36.0); Mean Corpuscular Hemoglobin 29.1 pg (27.0-33.0); Mean Corpuscular Volume 91.3 fL (80.0-98.0); Mean Platelet Volume 9.9 fL (9.4-12.4); Monocytes Absolute Auto 0.7 X10*3/uL (0.1-1.2); Monocytes Percent Auto 9.2 % (2-11); Neutrophils Absolute Auto 4.4 x10*3/uL (2.0-8.3); Neutrophils Percent Auto 59.7 % (45-73); Platelet Count 180 X10*3/uL (160-400); Red Blood Count 3.78 X10*6/uL (4.60-5.80); Red Cell Distribution Width 13.3 % (11.0-16.0); White Blood Count 7.3 X10*3/uL (4.8-10.8)
--- NOTE | 2022-01-30 07:00 | CA_ITS ---
Transthoracic Echocardiogram Patient (Last, First, Middle): Pal Da Silva, Gender: Male Date of : 1935 Age: 86 Procedure Date: 01/30/2022 Procedure Type: Transthoracic Echocardiogram Location: ER Height: 157.48 cm Weight: 95.26 kg BSA: 1.95 m2 Heart Rate: bpm BP: 209 / 88 mmHg Gastroenterologist: TO Referring MD: Shanta Stark MD Dramatic Coach: Corey Sandoval MD Symptoms: CVA Study Quality: Fair ECG Rhythm: Sinus Conclusions: - 1. Normal LV systolic function with mild LVH with LVEF of 60 65% with impaired relaxation filling pattern 2. Moderately dilated left atrium 3. Mildly calcified aortic valve and mild mitral calcification with mild mitral regurgitation 4. Mildly dilated ascending aorta with mild atherosclerotic changes noted 5. No gross pericardial effusion Findings Left Ventricle Normal left ventricular size and systolic function. There is mildly increased left ventricular wall thickness. The visually estimated ejection fraction is between 60-65%. Spectral Doppler is indicative of an impaired relaxation filling pattern. Right Ventricle Normal right ventricular cavity size. There is normal right ventricular systolic function. Atria The left atrium is moderately dilated. Interatrial shunt cannot be excluded. The right atrium was not well visualized. Aortic Valve There is mild calcification of the aortic valve. There is no aortic valve stenosis. There is no aortic valve regurgitation. Mitral Valve There is mild anterior and posterior mitral leaflet thickening. There is mild mitral annular calcification. There is mild mitral valve regurgitation. There is no mitral valve stenosis. Pulmonic Valve The pulmonic valve was not well visualized. Tricuspid Valve Likely normal tricuspid valve structure and function. Tricuspid regurgitation envelope is inadequate for calculation of right ventricular systolic pressure. Normal right atrial pressure. Great Vessels The pulmonary artery was not well visualized. Small plaque is seen in the sino tubular ridge and ascending aorta. Venous The inferior vena cava is normal in size and collapses greater than 50% with inspiration. Pericardium/Pleural There is no evidence of pericardial effusion. Prior Study Comparison No significant change compared to prior study dated: 09/25/2020. Measurements 2D Linear Measurements IVSd: 1.24 0.6-0.9/0.6-1.0 cm LVIDd: 5.21 3.9-5.3/4.2-5.9 cm LVIDd Index: 2.67 2.4-3.2/2.2-3.1 cm/m2 LVIDs: 3.08 2.0-3.6 cm LVPWd: 1.16 0.7-1.1 cm LA Diam: 4.20 2.7-3.8/3.0-4.0 cm LAIDs Index: 2.15 1.5-2.3 cm/m2 LV Mass: 311.26 67-162/88-224 g LV Mass Index: 159.62 43-95/49-115 g/m2 LVOT Diam: 2.10 3.0+(-)1.3 cm 2D Systolic Function EF 4C: 61.40 >55% EF 2C: 60.40 >55% EF BiP: 61.00 >55% Mitral Valve MV VTI: 0.30 MV Pk [place]: 1.10 MV Mn [place]: 0.67 MV Pk Grad: 5.00 MV Mn Grad: 2.00 MV Pk E: 0.95 MV PK A: 0.87 MV Decel Time: 198.00 E/A: 1.10 E'Lateral: 7.72 E'Medial: 5.77 E/E' Med: 16.40 E/E' Lat: 12.30 PHT: 58.00 MVA PHT: 3.79 MVA Continuity: 3.[address] [facility]: 4.78 Aortic Valve AoV Pk [place]: 1.19 AoV Mn [place]: 0.83 AoV VTI: 0.30 AoV Pk Grad: 6.00 Aov Mn Grad: 3.00 SHYAM Cont.VTI: 3.44 LVOT LVOT Pk [place]: 1.10 LVOT Mn [place]: 0.76 LVOT VTI: 0.29 LVOT Pk Grad: 5.00 LVOT Mn Grad: 3.00 LVOT Diam: 2.10 LVOT Area: 3.46 Diastolic Function MV Pk E: 0.95 MV Pk A: 0.87 E/A: 1.10 E'Medial: 5.77 E/E' Med: 16.40 E' Laterial: 7.72 E/E' Lat: 12.30 Right Ventricle TAPSE (mm): 23.40 TVS' [place]a: 10.00 Tricuspid Valve RA Press: 8.00 Great Vessels Aorta Sinus of Valsalva: 3.45 2.0-3.[address] [place]: 2.90 1.7-3.4 cm Ao Asc: 3.80 2.1-3.4 cm Updated in Other Vendor System with Status of Final Corey Sandoval MD electronically signed on 01/30/2022 3:55:01 PM with status of Final
[2022-01-30 07:09] LABS: Estimated Average Glucose 103 mg/dL; Hemoglobin A1c % 5.2 %
[2022-01-30 07:13] LABS: Anion Gap 10 (12-20); Blood Urea Nitrogen 17 mg/dL (9-16); Calcium 8.1 mg/dL (8.4-10.2); Carbon Dioxide 26 mmol/L (22-29); Chloride 113 mmol/L (96-108); Creatinine Clr Calc Pharmacy 67.6; Estimated Glomerular Filt Rate > 60; Glucose Random 86 mg/dL (60-115); Potassium 3.6 mmol/L (3.3-5.1); Sodium 145 mmol/L (135-145)
--- NOTE | 2022-01-30 09:05 | PHA.MEDREC ---
Pharmacy Consult ? Medication Reconciliation Pharmacy has completed the medication reconciliation. Patient had a list at bedside
--- NOTE | 2022-01-30 11:17 | PM.NEUROCN ---
History of Present Illness Data of Consult Service Date: 01/30/22 Primary Care Provider: Unknown Physician HPI Reason for consult: TIA TIA 86 years old man with hypertension who came to hospital with new onset of left-sided numbness. He said that he woke up and noted that his whole left side was numb. There was no other associated symptoms such as headache dizziness or nausea. There was no change in his vision or speech. When he arrived emergency room his symptoms were already resolved. Review of Systems Review of Systems: No recent cold or flu-like illness or headache PMFSH Past Medical History Medical History Acute kidney failure Acute respiratory failure with hypoxia Afib Altered mental status Anemia Anxiety and depression ARDS (adult respiratory distress syndrome) BPH (benign prostatic hyperplasia) Cholecystitis Chronic abdominal pain Constipation COPD (chronic obstructive pulmonary disease) COVID-19 COVID-19 virus infection Current use of anticoagulant therapy Diastolic CHF, acute on chronic Diverticulitis Frequency of micturition GERD (gastroesophageal reflux disease) Headache History of CVA (cerebrovascular accident) History of rib fracture Hypercholesterolemia Hypertension Hypertrophic cardiomyopathy Hypogammaglobulinemia Meningioma Obesity (BMI 30-39.9) Obstructive sleep apnea Paroxysmal atrial fibrillation Peripheral neuropathy Peripheral vascular disease Polyarthralgia Primary osteoarthritis of right knee Protrusion of lumbar intervertebral disc Tear of medial meniscus of knee Urinary incontinence Family History Family History Father No problems noted. Mother Hx of type 1 diabetes mellitus Surgical History Surgical History H/O colonoscopy History of left knee replacement History of tonsillectomy History of total right hip replacement History of transurethral resection of prostate Social History Social History Household Members: Spouse Housing: House Do you presently have visiting nurse or other home services: No Alcohol intake: never Patient Tobacco Use Status: Former Tobacco user Years Smoked: 30 yrs ago Smoked in Last 30 Days: No Second Hand Smoke Exposure: No Use of substances other than those prescribed or required for medical reasons: No Advance Directives: Yes Advance Directives on File: Yes Advance Directives Date on File: 04/06/20 service: No Current occupational status: unemployed and retired Current occupation: Right Handed Meds Allergies Allergy/AdvReac Type Severity Reaction Status Date / Time dabigatran etexilate Allergy Intermediate ITCHING Verified 12/10/21 16:26 [From PRADAXA] JORGE L Inhibitors Allergy Mild UNKNOWN, Verified 12/10/21 16:26 [Jorge L Inhibitors] FOUND IN MEDICAL RECORD 04/[address] GIPSON ezetimibe [From Zetia] Allergy Mild ANAPHYLAXIS Verified 12/10/21 16:26 apixaban [From ELIQUIS] Allergy Unknown UNKNOWN, Verified 12/10/21 16:26 rash rosuvastatin [Crestor] Allergy Unknown myalgia Verified 12/10/21 16:26 Active Medications: Current Medications Acetaminophen (Acetaminophen 325 Mg Tablet) 650 mg PO Q6H PRN PRN Reason: Pain, Mild (Pain Scale 1-3) Melatonin (Melatonin 3 Mg Tablet) 6 mg PO BEDTIME PRN PRN Reason: Insomnia Ondansetron HCl (Ondansetron Hcl 4 Mg/2 Ml Vial) 4 mg IVPUSH Q8H PRN PRN Reason: Nausea and Vomiting Pharmacy Consult (Consult Rx Perform Med Rec) 1 each MISCELLANE ONCE PRN PRN Reason: Consult order Home Medications Medication Instructions Recorded Confirmed Last Taken Type atorvastatin 80 mg tablet 80 mg PO BEDTIME 06/03/20 01/30/22 07/09/10 History carvedilol 25 mg tablet 25 mg PO BID 12/04/20 01/30/22 Unknown History potassium chloride 10 mEq 1 tab PO BID 11/14/21 01/30/22 Unknown History tablet,extended release esmcbryfrejm-knlnqrsz-llbayl tablet 1 tab PO DAILY 01/30/22 01/30/22 Unknown History sennosides 8.6 mg tablet (Senokot) 8.6 mg PO DAILY PRN Constipation 01/30/22 01/30/22 Unknown History Physical Exam Vital Signs: Vital Signs: Last Vital Signs Temp 98.0 F 01/30/22 07:13 Pulse 68 01/30/22 08:29 Resp 19 01/30/22 08:29 BP 179/81 H 01/30/22 08:29 Pulse Ox 99 01/30/22 08:29 O2 Del Method 01/30/22 08:29 BMI result Body Mass Index 38.4 Neuro: Other: alert and awake with normal spontaneity of speech fluency comprehension and affect. There was mild left-sided central facial weakness. Visual leung are full. Extraocular muscles were intact. Pupils were equal and reactive to light. There was no focal arm or leg weakness. Plantars were flat. Speech was normal. Results Labs CBC & Chem 7: 01/30/22 06:38 01/30/22 06:38 Labs: Short CBC 01/30/22 01/30/22 Range/Units 02:29 06:38 WBC 7.6 7.3 (4.8-10.8) X10*3/uL Hgb 12.2 L 11.0 L (14.0-18.0) g/dl Hct 38.0 L 34.5 L (42.0-52.0) % Plt Count 205 180 (160-400) X10*3/uL BMP 01/30/22 01/30/22 02:29 06:38 Sodium 145 145 Potassium 3.9 3.6 Chloride 111 H 113 H Carbon Dioxide 25 26 BUN 19 H 17 H Creatinine 0.97 0.80 Calcium 9.0 8.1 L D Cardiac Enzymes 01/30/22 Range/Units 02:29 Total Creatine Kinase 44 (38-174) U/L MRI of brain revealed moderately severe chronic microvascular ischemic lesions but no acute lesion. Assessment and Plan (1) Brain TIA: Status: Acute 86 years old man with uncontrolled hypertension and transient left hemibody numbness likely from transient ischemic attack related to microvascular atherothrombotic disease. Mainstay of management is blood pressure control, anti-platelet agent and statins. I would recommend baby aspirin and clopidogrel 75 mg daily for 8 weeks and then discontinuing clopidogrel. Blood pressure management and statin should continue CTA of brain and neck is also recommended to rule out any possibility of vascular lesion that could require alternate treatment. Procedures Date of Service Date of Service: 01/30/22
[2022-01-30] MEDS: iohexoL 350 MG/ML 100 ML INFUS..BTL IV (12:47)
[2022-01-30] MEDS: Tamsulosin HCL 0.4 MG CAPSULE PO (14:09)
[2022-01-30] MEDS: Rivaroxaban 20 MG TABLET PO (14:09)
[2022-01-30] MEDS: Docusate Sodium 100 MG CAPSULE PO (14:09)
[2022-01-30] MEDS: carvediloL 25 MG TABLET PO ×2 (14:09→21:48)
[2022-01-30] MEDS: VerapamiL HCL SR 180 MG TABLET.ER PO (14:09)
[2022-01-30] MEDS: Furosemide 40 MG TABLET PO (14:10)
[2022-01-30] MEDS: Multivitamin TABLET 1 TAB PO (14:10)
[2022-01-30] MEDS: Losartan Potassium 50 MG TABLET 100 MG PO (14:10)
--- NOTE | 2022-01-30 14:12 | PC.NURSE ---
coco rn medicate pt per APR. Pt requesting food and RN noticed, NPO pending swallow eval order. Pt previously passed swallow eval and MD Back made aware. New orders for regular diet entered and kitchen called to prepare pt a meal tray. Pt hypertensive at this time however pt had not received his BP medication prior to this time. Staff will continue to monitor. CAll [place] in reach
--- NOTE | 2022-01-30 16:45 | PC.NURSE ---
Addendum entered by Arlyn Anna RN 01/30/22 19:02: report given to ELMER Bradford Original Note: report received from ELMER Dumont pt is alert and oriented x4 resting comfortably in bed no signs of acute distress notice pt on continuos cardiac monitoring breathing equally unlabored
[2022-01-30 21:28] LABS: Glucose, Whole Blood 99 mg/dL (60-115)
[2022-01-30] MEDS: Acetaminophen 325 MG TABLET 650 MG PO (21:47)
[2022-01-30] MEDS: Atorvastatin Calcium 80 MG TABLET PO (21:47)
[2022-01-31 01:29] VITALS: BP 155/66; PULSE 60; RESP 17; TEMP 37; O2SAT 98
[2022-01-31 05:45] VITALS: BP 156/66; PULSE 57; RESP 16; TEMP 36.9; O2SAT 99
--- NOTE | 2022-01-31 06:34 | PC.NURSE ---
Pt V/S are stable, pt is on the monitor and it shows a-fib. Pt is a/O X5, gcs 15 AND ABLE TO AMBULATE TO THE COMMODE NEXT TO HIS BED. Pt has an IV on his LAC.
[2022-01-31 07:57] LABS: Cholesterol 145 mg/dL; HDL Cholesterol 44 mg/dL; LDL Cholesterol Calculated 84 mg/dl; Triglycerides 88 mg/dL
[2022-01-31] MEDS: Losartan Potassium 50 MG TABLET 100 MG PO (08:49)
[2022-01-31] MEDS: Multivitamin TABLET 1 TAB PO (08:49)
[2022-01-31] MEDS: Omeprazole 20 MG CAPSULE.DR PO (08:49)
[2022-01-31] MEDS: carvediloL 25 MG TABLET PO (08:49)
[2022-01-31] MEDS: Tamsulosin HCL 0.4 MG CAPSULE PO (08:49)
[2022-01-31] MEDS: Furosemide 40 MG TABLET PO (08:49)
[2022-01-31] MEDS: Docusate Sodium 100 MG CAPSULE PO (08:49)
[2022-01-31] MEDS: Rivaroxaban 20 MG TABLET PO (08:49)
[2022-01-31 08:51] VITALS: BP 189/76; PULSE 70; RESP 15; O2SAT 97
[2022-01-31] MEDS: VerapamiL HCL SR 180 MG TABLET.ER PO (09:45)
[2022-01-31 10:00] VITALS: BP 154/66; PULSE 55; O2SAT 97
--- NOTE | 2022-01-31 11:09 | PM.DS ---
DS: Providers Provider Date of Service: 01/31/22 Date of admission: 01/30/22 04:11 Primary care physician: Unknown Physician Consults: 01/30/22 04:14 Consult to Neurology Routine Consulting Provider: [facility] Reason for consultation: CVA DS: Diagnosis Discharge Diagnosis (1) Brain TIA: Status: Acute DS: Summary Hospital Course Hospital Course: Chief Complaint: facial droop This is a 85-year-old male with a pertinent history of prior CVA, paroxysmal atrial fibrillation on anticoagulation, benign prostatic hyperplasia, essential hypertension, gastroesophageal reflux disease who presents to the emergency department for evaluation of left extremity weakness and facial droop.? Patient states he went to bed at 22:00 and around 01:00 patient felt left upper extremity weakness.? At the same time, his noted left facial droop.? Both symptoms resolved by the time the patient was brought to the ER.? He is on Xarelto for atrial fibrillation and states he is compliant with it.? Not on antiplatelet agent.? Patient denies fever, chills, chest discomfort, palpitations, shortness of breath, loss of consciousness, tongue bite, urinary or bowel incontinence, shaky movement of extremities, abdominal pain, changes in urinary or bowel habits Patient presented with transient facial droop, head CT no acute stroke, MRI no acute finding, CTA of head and neck no acute finding. His symptoms have resolved. Was seen by Neurology initially recommended Plavix, ASA but since patient is on Xarelto, the recommendation is aspirin + Xarelto. He remains symptoms free and will be discharged home. Time Spent with Patient Time attestation: Total time spent providing and/or coordinating discharge services: Discharge coordination time: Greater than 30 minutes Quality: Safe Use of Opioids Does Pt have an Active Cancer Diagnosis on the Problem List?: No Quality: Stroke Does the patient have a stroke diagnosis?: No Physical Exam Vital Signs: Vital Signs: Last Vital Signs Temp 98.5 F 01/31/22 05:45 Pulse 70 01/31/22 08:51 Resp 15 01/31/22 08:51 BP 189/76 H 01/31/22 08:51 Pulse Ox 97 01/31/22 08:51 O2 Del Method 01/31/22 08:51 BMI result Body Mass Index 38.4 DS: Data Data Completed and Pending Completed studies during hospitalization [Text1]: Procedures Insertion of Endotracheal Airway into Trachea, Via Natural or Artificial Opening Endoscopic (04/01/20) Insertion of Infusion Device into Superior Vena Cava, Percutaneous Approach (04/01/20) Introduction of Remdesivir Anti-infective into Peripheral Vein, Percutaneous Approach, [employer] (04/01/20) Respiratory Ventilation, Greater than 96 Consecutive Hours (04/01/20) Transfusion of Convalescent Plasma (Nonautologous) into Peripheral Vein, Percutaneous Approach, [employer] (04/01/20) Ultrasonography of Superior Vena Cava, Guidance (04/01/20) Labs on day of discharge: Laboratory Results - last 24 hr 01/30/22 01/31/22 21:23 06:49 POC Glucose 99 Triglycerides 88 Cholesterol 145 LDL Cholesterol, Calc 84 HDL Cholesterol 44 Discharge Plan Discharge Anticipated Discharge Date/Time: 01/31/22 10:57 Patient Disposition: Home, Self-Care Discharge Diagnosis: TIA Referrals: Physician,Unknown J [Primary Care Provider] - 1 Week Discharge Medications: New aspirin 81 mg capsule 81 mg PO DAILY Qty: 30 0RF Continued Breo Ellipta 200-25 mcg/dose blister with device 1 ea inhalation DAILY Qty: 60 2RF furosemide 40 mg tablet 40 mg PO DAILY Qty: 90 1RF tamsulosin 0.4 mg capsule 0.4 mg PO DAILY 90 Days Qty: 90 3RF verapamil 180 mg capsule,ext rel. pellets 24 hr 180 mg PO DAILY Qty: 90 3RF losartan 100 mg tablet 100 mg PO DAILY Qty: 90 0RF Xarelto 20 mg tablet 20 mg PO DAILY Qty: 90 1RF Rx Instructions: must administer with evening meal appropriate dose for current kidney function pantoprazole 40 mg tablet,delayed release (DR/EC) 40 mg PO DAILY Qty: 90 0RF atorvastatin 80 mg tablet 80 mg PO BEDTIME potassium chloride 10 mEq tablet extended release 1 tab PO BID albuterol sulfate [Ventolin HFA] 90 mcg/actuation HFA aerosol inhaler 2 puff inhalation Q6H PRN (Reason: shortness of breath or wheezing) Qty: 8.5 0RF gzlyxistspyd-szcnnkwe-izxloo Tablet 1 tab PO DAILY sennosides [Senokot] 8.6 mg tablet 8.6 mg PO DAILY PRN (Reason: Constipation) carvedilol 25 mg tablet 25 mg PO BID docusate sodium 100 mg capsule 100 mg PO DAILY Qty: 30 3RF Discharge Orders: Discharge Order (Routine); Ordered 01/31/22 Ordered By: Flaco Back Diet: Advance to usual diet Activity on Discharge: As tolerated Stand Alone Forms: Patient Portal Discharge page Care Plan Goals: Stroke prevention Health Concerns: TIA Plan of Treatment: Continue taking all your usual medication in addition to taking baby aspirin daily. Your tests did not show a new stroke but there is indication that you had a mini stroke Assessment: as above
[2022-01-31 11:12] VITALS: BP 150/64; PULSE 59
--- NOTE | 2022-01-31 11:24 | MHC.CM.PN ---
Patient is medically cleared for dc to home today, self care before CM was able to complete CM admission.
--- NOTE | 2022-01-31 12:54 | PC.NURSE ---
alert, speech clear, steady gait, alfonso, no weakness, inst reviewed
--- NOTE | 2022-03-10 11:16 | MHC.STROKE ---
LATE ENTRY FOR , I VERIFIED WITH THE RN THAT UPON DISCHARGE THE BENINESE VERSION OF THE STROKE EDUCATION BOOKLET WAS GIVEN AND REVIEWED WITH THE PATIENT.
== END 2022-01-31 12:45 | disposition home or self-care (01) | DRG 69 ==
LOC: HO.ED 04:03 → HO.EDOVER 04:41
PROVIDERS: Admitting Provider Student in an Organized Health Care Education/Training Program; Emergency Provider Emergency Medicine; Visit Provider Internal Medicine
DX: G45.9 Transient cerebral ischemic attack, unspecified (principal); I50.32 Chronic diastolic (congestive) heart failure; I11.0 Hypertensive heart disease with heart failure; J44.9 Chronic obstructive pulmonary disease, unspecified; K21.9 Gastro-esophageal reflux disease without esophagitis; I48.0 Paroxysmal atrial fibrillation; G47.33 Obstructive sleep apnea (adult) (pediatric); Z20.822 Contact with and (suspected) exposure to COVID-19; Z87.891 Personal history of nicotine dependence; Z86.73 Personal history of transient ischemic attack (TIA), and cerebral infarction without residual deficits; Z88.8 Allergy status to other drugs, medicaments and biological substances; Z79.01 Long term (current) use of anticoagulants; Z79.51 Long term (current) use of inhaled steroids; Z79.82 Long term (current) use of aspirin; Z79.899 Other long term (current) drug therapy
CPT/HCPCS: 36415; 70450; 70496; 70498; 70551; 71045; 80048; 80061; 82550; 82947; 83036; 84484; 85025; 85610; 85730; 87635; 93005; 93306; 93880; 99285; Q9957; Q9967

== ENCOUNTER → 2022-02-04 12:34 | Outpatient (BNVA) | payer OTHER, SELFPAY | PROVIDERS: PCP Internal Medicine Geriatric Medicine; Visit Provider Nurse Practitioner Family | DX: K21.9 Gastro-esophageal reflux disease without esophagitis (principal); K59.04 Chronic idiopathic constipation; K57.90 Diverticulosis of intestine, part unspecified, without perforation or abscess without bleeding; Z79.899 Other long term (current) drug therapy | CPT/HCPCS: 99212 ==

== ENCOUNTER 2022-03-01 01:53 | Emergency (ER) | payer OTHER, SELFPAY ==
--- NOTE | ~2022-03-01 | CT_ITS ---
EXAMINATION: CT ABDOMEN AND PELVIS WITHOUT CONTRAST CLINICAL INFORMATION: Left lower quadrant pain. History of diverticulitis. COMPARISON: 12/17/2021 and 11/28/2021, as well as priors from 2019 TECHNIQUE: Multidetector volumetric imaging was performed from the superior aspect of the liver through the pubic symphysis. Sagittal and coronal reformatted images were obtained on the technologist's workstation. This CT examination was performed using dose optimization techniques as appropriate, variously including the following: *Automated exposure control *Adjustment of mA and/or kV according to patient size (this includes techniques or standardized protocols for targeted exams where dose is matched to indication/reason for exam; i.e. extremities or head) *Use of iterative reconstruction technique DLP: 781 mGy-cm FINDINGS: LUNG BASES: The visualized lung bases are unremarkable. Coronary calcifications present. LIVER, GALLBLADDER, AND BILIARY TREE: The liver is normal in size, shape, and attenuation. No focal hepatic lesion or biliary ductal dilatation is present. The gallbladder is unremarkable with no evidence of radiopaque gallstones, gallbladder wall thickening, or obvious pericholecystic inflammatory changes. PANCREAS: Unremarkable. SPLEEN: Unremarkable. ADRENAL GLANDS: Unremarkable. KIDNEYS AND URETERS: The kidneys are normal in size, shape, and attenuation. No hydronephrosis, hydroureter, or calculi seen. No perinephric stranding. BLADDER: Unremarkable. GASTROINTESTINAL TRACT: Pancolonic diverticulosis. Again seen is a short segment wall thickening of the proximal sigmoid colon with mild pericolic fat stranding, stable in appearance since 11/28/2021. Normal appendix. Stomach and small bowel unremarkable. ABDOMINAL WALL: No significant hernia is appreciated. LYMPH NODES: Normal. VASCULAR: Aorta is atherosclerotic but normal caliber. PELVIC VISCERA: Unremarkable. OSSEOUS STRUCTURES: No acute or suspicious osseous abnormalities. 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 CT/CT abdomen pelvis wo IV con IMPRESSION: Chronic diverticular disease involving the proximal sigmoid colon persistent wall thickening and right colic fat stranding which is stable in appearance since November 2021. I suspect chronic mild active inflammation in this location. As recommended previously, if not already performed, recommend colonoscopy to further assess this area. Fleischner guidelines were followed.
[2022-03-01 01:59] VITALS: BP 190/82; PULSE 65; PULSE 67; RESP 16; TEMP 36.6; O2SAT 98; O2SAT 99; BMI 38.5
--- NOTE | 2022-03-01 02:12 | PC.NURSE ---
Patient is alert and oriented x3. Had a stroke 3 weeks ago, presented with complain of muscle weakness and constipation. Assessment was performed, GLADYS, strong and equal hands grasp, able to lift up his lower extremity. Provider is aware of that.
[2022-03-01 02:15] VITALS: BP 157/41; PULSE 65; RESP 16; TEMP 36.6
--- NOTE | 2022-03-01 02:41 | ED.ABDPAIN ---
HPI - Abdominal Pain General Chief Complaint: Extremity Problem Stated Complaint: Joint Stiffness, ?Constipation Time Seen by Provider: 03/01/22 02:34 Source: patient Mode of arrival: EMS History of Present Illness HPI narrative: 86-year-old male who comes in from home via EMS stating that he woke up and felt that his ?joints were stiff every were? and then goes on to describe that he has had left-sided abdominal discomfort that began approximately 2 weeks ago and his primary care provider placed him on a single medication that he takes twice a day, but he only took this for 5 days which he says is unusual because it feels like a diverticulitis and he has never been on a course of medications for this short amount of time. He otherwise denies any fever, chills, nausea, vomiting, and states that he had his last bowel movement just before going to bed this evening and denies any urinary symptoms. Related Data Home Medications Medication Instructions Recorded Confirmed atorvastatin 80 mg tablet 80 mg PO BEDTIME 06/03/20 01/30/22 carvedilol 25 mg tablet 25 mg PO BID 12/04/20 01/30/22 potassium chloride 10 mEq 1 tab PO BID 11/14/21 01/30/22 tablet,extended release kcwparddmeim-bcnyorbf-xpsivk tablet 1 tab PO DAILY 01/30/22 01/30/22 Previous Rx's Medication Instructions Recorded fluticasone furoate 200 1 ea inhalation DAILY #60 ea 07/05/20 mcg-vilanterol 25 mcg/dose inhalation powder (Breo Ellipta) furosemide 40 mg tablet 40 mg PO DAILY #90 tabs 03/11/21 tamsulosin 0.4 mg capsule 0.4 mg PO DAILY 90 days #90 caps 03/29/21 verapamil 180 mg 24 hr 180 mg PO DAILY #90 caps 03/29/21 capsule,extended release losartan 100 mg tablet 100 mg PO DAILY #90 tabs 07/02/21 pantoprazole 40 mg tablet,delayed 40 mg PO DAILY #90 tabs 10/27/21 release albuterol sulfate 90 mcg/actuation 2 puff inhalation Q6H PRN 11/16/21 aerosol inhaler (Ventolin HFA) shortness of breath or wheezing #8.5 grams aspirin 81 mg capsule 81 mg PO DAILY #30 caps 01/31/22 rivaroxaban 20 mg tablet (Xarelto) 20 mg PO QPM 30 days #30 tabs 01/31/22 docusate sodium 100 mg capsule 100 mg PO DAILY #90 caps 02/04/22 sucralfate 100 mg/mL oral 10 ml PO BEDTIME #400 mL 02/04/22 suspension sennosides 8.6 mg tablet (Senokot) 8.6 mg PO DAILY PRN Constipation 02/12/22 #90 tabs sulfamethoxazole 800 1 tab PO BID 10 days #20 tabs 03/01/22 mg-trimethoprim 160 mg tablet (Bactrim DS) Allergies Allergy/AdvReac Type Severity Reaction Status Date / Time dabigatran etexilate Allergy Intermediate ITCHING Verified 02/04/22 12:55 [From PRADAXA] JORGE L Inhibitors Allergy Mild UNKNOWN, Verified 02/04/22 12:55 [Jorge L Inhibitors] FOUND IN MEDICAL RECORD 04/[address] GIPSON ezetimibe [From Zetia] Allergy Mild ANAPHYLAXIS Verified 02/04/22 12:55 apixaban [From ELIQUIS] Allergy Unknown UNKNOWN, Verified 02/04/22 12:55 rash rosuvastatin [Crestor] Allergy Unknown myalgia Verified 02/04/22 12:55 Review of Systems Review of Systems Pertinent positives and negatives as stated in HPI. [facility] Past Medical History Source: nursing notes reviewed Medical History Acute kidney failure Acute respiratory failure with hypoxia Afib Altered mental status Anemia Anxiety and depression ARDS (adult respiratory distress syndrome) BPH (benign prostatic hyperplasia) Cholecystitis Chronic abdominal pain Constipation COPD (chronic obstructive pulmonary disease) COVID-19 COVID-19 virus infection Current use of anticoagulant therapy Diastolic CHF, acute on chronic Diverticulitis Frequency of micturition GERD (gastroesophageal reflux disease) Headache History of CVA (cerebrovascular accident) History of rib fracture Hypercholesterolemia Hypertension Hypertrophic cardiomyopathy Hypogammaglobulinemia Meningioma Obesity (BMI 30-39.9) Obstructive sleep apnea Paroxysmal atrial fibrillation Peripheral neuropathy Peripheral vascular disease Polyarthralgia Primary osteoarthritis of right knee Protrusion of lumbar intervertebral disc Tear of medial meniscus of knee Urinary incontinence Surgical History H/O colonoscopy History of left knee replacement History of tonsillectomy History of total right hip replacement History of transurethral resection of prostate Family History Family History Father No problems noted. Mother Hx of type 1 diabetes mellitus Social History Social History Household Members: Spouse Housing: House Do you presently have visiting nurse or other home services: No Alcohol intake: never Patient Tobacco Use Status: Former Tobacco user Years Smoked: 30 yrs ago Second Hand Smoke Exposure: No Advance Directives: Yes Advance Directives on File: Yes Advance Directives Date on File: 04/06/20 service: No Current occupational status: unemployed and retired Current occupation: Right Handed Physical Exam ED Vital Signs: Vital Signs - 24 hr 03/01/22 01:59 03/01/22 02:15 Temperature 97.9 F 97.8 F Pulse Rate 65 65 Respiratory Rate 16 16 Blood Pressure 157/41 H Pulse Oximetry 99 Oxygen Delivery Method Room Air Room Air BMI result Body Mass Index 38.5 VITAL SIGNS: Reviewed. GENERAL: Well developed, well nourished, in no acute distress. HEAD: Normocephalic/atraumatic EYES: PERRLA, EOMI EARS: Ext canals without abnormality OROPHARYNX: no oral lesions noted, posterior pharynx clear LUNGS: Normal breath sounds. No adventitious sounds or accessory muscle use. SpO2<99> CARDIOVASCULAR: Regular rate and rhythm without noted murmurs, no JVD or lower extremity edema. ABDOMEN: Soft, left-sided pain on palpation without rebound, non-distended with bowel sounds. MUSCULOSKELETAL: No tenderness, deformities, or effusions noted on gross inspection. EXTREMITIES: No cyanosis, clubbing or edema. SKIN: Inspection of the skin reveals no rashes NEUROLOGIC: Alert and oriented x 4. Strength and sensation to light touch were grossly intact x 4. Medical Decision Making Medical Decision Making MDM Narrative: 86-year-old male with presentation of joint pain everywhere and left-sided abdominal pain. 0355: My review and interpretation of the workup is that patient has persistent diverticulitis with pain but is otherwise able to tolerate oral intake. I did review radiology's recommendation for follow-up colonoscopy and I have provided the patient with a referral to Gastroenterology. Patient was informed of all results and as the infection was not resolving with Augmentin, will switch him over to Bactrim. Differential Diagnosis Differential Diagnoses: The differential diagnosis associated with the presentation includes Intra-abdominal problem, urine problem Lab Data MDM Lab Attestation statement: I reviewed the patient's lab results. Please see the discussion above Labs: Lab Results 03/01/22 Range/Units 02:24 Influenza Type A (PCR) NEGATIVE (Negative) Influenza Type B (PCR) NEGATIVE (Negative) RSV RNA Qual (PCR) NEGATIVE (Negative) SARS-CoV-2 RNA (RT-PCR) NEGATIVE (Negative) Radiology Impression Radiologist Impression: My interpretation is in agreement with radiology's impression of the imaging study. Discharge Plan Discharge Clinical Impression: Diverticulitis Patient Disposition: Home, Self-Care Instructions: Diverticulitis (ED), Diverticulitis Diet (ED) Additional Instructions: 1. Resume all home medications with the exception of the antibiotic that you were just taking for diverticulitis. 2. Stop taking the antibiotic that you were just prescribed for diverticulitis, I have started you on a different course of medication. 3. I have also provided you with a referral to follow-up with gastroenterology as well as General surgery. 4. Please follow-up with your primary care provider on Thursday. Return to the ER for worsening symptoms. Prescriptions: New sulfamethoxazole-trimethoprim [Bactrim DS] 800-160 mg tablet 1 tab PO BID 10 Days Qty: 20 0RF No Action Breo Ellipta 200-25 mcg/dose blister with device 1 ea inhalation DAILY Qty: 60 2RF furosemide 40 mg tablet 40 mg PO DAILY Qty: 90 1RF tamsulosin 0.4 mg capsule 0.4 mg PO DAILY 90 Days Qty: 90 3RF verapamil 180 mg capsule,ext rel. pellets 24 hr 180 mg PO DAILY Qty: 90 3RF losartan 100 mg tablet 100 mg PO DAILY Qty: 90 0RF pantoprazole 40 mg tablet,delayed release (DR/EC) 40 mg PO DAILY Qty: 90 0RF Xarelto 20 mg tablet 20 mg PO QPM 30 Days Qty: 30 5RF sennosides [Senokot] 8.6 mg tablet 8.6 mg PO DAILY PRN (Reason: Constipation) Qty: 90 1RF atorvastatin 80 mg tablet 80 mg PO BEDTIME potassium chloride 10 mEq tablet extended release 1 tab PO BID albuterol sulfate [Ventolin HFA] 90 mcg/actuation HFA aerosol inhaler 2 puff inhalation Q6H PRN (Reason: shortness of breath or wheezing) Qty: 8.5 0RF ifsotndxoqdb-hqvkpsnv-wmqbpz Tablet 1 tab PO DAILY aspirin 81 mg capsule 81 mg PO DAILY Qty: 30 0RF carvedilol 25 mg tablet 25 mg PO BID docusate sodium 100 mg capsule 100 mg PO DAILY Qty: 90 3RF sucralfate 100 mg/mL suspension 10 ml PO BEDTIME Qty: 400 3RF Referrals: [facility] [Primary Care Provider] - Sesar Ruiz [Physician] - (86-year-old gentleman with persistent diverticulitis, was not able to resolve infection with course of Augmentin, patient was switched over to Bactrim.)
[2022-03-01 03:05] LABS: Influenza A PCR NEGATIVE (Negative); Influenza B PCR NEGATIVE (Negative); Resp Syncy Virus RNA Qual PCR NEGATIVE (Negative); SARS COV2 PCR INHOUSE NEGATIVE (Negative)
[2022-03-01 04:13] VITALS: BP 165/68; PULSE 59; RESP 16; TEMP 36.3; O2SAT 98
--- NOTE | 2022-03-01 04:14 | PC.NURSE ---
Patient is aler6t and oriented x4. Denies to be in pain. Vitals are monitored, no signs of resp distress noted. Skin is dry and warm. Safety maintained.
== END 2022-03-01 05:10 | disposition home or self-care (01) ==
PROVIDERS: Emergency Provider Student in an Organized Health Care Education/Training Program
DX: K57.32 Diverticulitis of large intestine without perforation or abscess without bleeding (principal); Z20.822 Contact with and (suspected) exposure to COVID-19; Z20.828 Contact with and (suspected) exposure to other viral communicable diseases
CPT/HCPCS: 0241U; 74176; 99283; 99284

== ENCOUNTER 2022-03-25 13:21 | Inpatient (IN) | payer OTHER, SELFPAY ==
--- NOTE | ~2022-03-25 | CT_ITS ---
EXAMINATION: CT HEAD WITHOUT CONTRAST CT CERVICAL SPINE WITHOUT CONTRAST CLINICAL INFORMATION: Vision changes. COMPARISON: Multiple prior exams. CT head 01/30/2002 TECHNIQUE: Imaging was performed from the skull base to vertex without intravenous administration of contrast. In addition, helical noncontrast CT imaging was acquired through the cervical spine and source images were reviewed along with axial reconstructions and sagittal and coronal MPRs. [This CT examination was performed using dose optimization techniques as appropriate, variously including the following: *Automated exposure control *Adjustment of mA and/or kV according to patient size (this includes techniques or standardized protocols for targeted exams where dose is matched to indication/reason for exam; i.e. extremities or head) *Use of iterative reconstruction technique] DLP: 1264 mGy-cm FINDINGS: HEAD: No intracranial mass, hemorrhage, or midline shift is visualized. There is generalized global volume loss. There is mild prominence of the ventricles and the sulci . There are vascular calcifications of the internal carotid arteries bilaterally. . No extra-axial collections are identified. The paranasal sinuses and mastoid air cells are well aerated. CERVICAL SPINE: There is no evidence of acute cervical spine fracture. Vertebral bodies remain normal in height. Cervical vertebrae have normal alignment. There is multilevel degenerative spondylosis of the cervical spine with disc height narrowing and endplate spurs and facet joint arthrosis No pre- or paravertebral soft tissue abnormality is identified. Limited assessment of the lung apices is unremarkable. CT/CT cervical spine wo IV con IMPRESSION: 1. No acute intracranial pathology. 2. No CT evidence of acute cervical spine fracture or traumatic subluxation
--- NOTE | ~2022-03-25 | XR_ITS ---
EXAMINATION: XR CHEST CLINICAL INFORMATION: Pacemaker insertion COMPARISON: Chest x-ray 01/30/2022 TECHNIQUE: AP upright portable chest at 1822 hours. FINDINGS: The heart size is mildly enlarged. Pulmonary vascularity is normal. There are dual pacer electrodes in right atrium and right ventricle. The lungs are expanded with slight increased vascular markings but no acute consolidation. No pleural effusion. Chronic deformity of right humeral head is noted. XR/XR chest 1V IMPRESSION: 1. Dual mural pacer electrodes in right atrium and right ventricle. 2. Mild cardiomegaly. Slight prominent pulmonary vascularity suggestive mild congestion 3. No acute pneumonic process seen.
--- NOTE | ~2022-03-25 | CT_ITS ---
EXAMINATION: CT HEAD WITHOUT CONTRAST CT CERVICAL SPINE WITHOUT CONTRAST CLINICAL INFORMATION: Vision changes. COMPARISON: Multiple prior exams. CT head 01/30/2002 TECHNIQUE: Imaging was performed from the skull base to vertex without intravenous administration of contrast. In addition, helical noncontrast CT imaging was acquired through the cervical spine and source images were reviewed along with axial reconstructions and sagittal and coronal MPRs. [This CT examination was performed using dose optimization techniques as appropriate, variously including the following: *Automated exposure control *Adjustment of mA and/or kV according to patient size (this includes techniques or standardized protocols for targeted exams where dose is matched to indication/reason for exam; i.e. extremities or head) *Use of iterative reconstruction technique] DLP: 1264 mGy-cm FINDINGS: HEAD: No intracranial mass, hemorrhage, or midline shift is visualized. There is generalized global volume loss. There is mild prominence of the ventricles and the sulci . There are vascular calcifications of the internal carotid arteries bilaterally. . No extra-axial collections are identified. The paranasal sinuses and mastoid air cells are well aerated. CERVICAL SPINE: There is no evidence of acute cervical spine fracture. Vertebral bodies remain normal in height. Cervical vertebrae have normal alignment. There is multilevel degenerative spondylosis of the cervical spine with disc height narrowing and endplate spurs and facet joint arthrosis No pre- or paravertebral soft tissue abnormality is identified. Limited assessment of the lung apices is unremarkable. CT/CT head/brain wo IV con IMPRESSION: 1. No acute intracranial pathology. 2. No CT evidence of acute cervical spine fracture or traumatic subluxation
--- NOTE | ~2022-03-25 | XR_ITS ---
EXAMINATION: XR SHOULDER, LEFT CLINICAL INFORMATION: Pain COMPARISON: None TECHNIQUE: AP external rotation, Grashey, scapular Y, and axillary views of the left shoulder. FINDINGS: No acute fracture or dislocation. Small marginal osteophytes along the glenohumeral joint. Prominent marginal osteophytes of the acromioclavicular joint with periarticular heterotopic ossification. There is a round density projecting along the posterior aspect of the humeral head which may represent an intra-articular calcification or enostosis in the posterior humeral head.. Soft tissues unremarkable. XR/XR shoulder LT min 2V IMPRESSION: * No acute fracture or dislocation. * Degenerative changes as described.
--- NOTE | ~2022-03-25 | FL_ITS ---
EXAMINATION: XR FLUOROSCOPY WITH IMAGES CLINICAL INFORMATION: Pacemaker COMPARISON: Chest radiographs 123, 01/30/2022 TECHNIQUE: Fluoroscopy Supervised By: Dr. Chin Handley. Fluoroscopy Time: 8.9 minutes. Cumulative Dose: 205.85 mGy. Images: 2. FINDINGS: Pacer wires are seen overlying the cardiopericardial silhouette in region of right atrium and right ventricle. FL/FL guidance in OR IMPRESSION: Fluoroscopy for pacemaker placement.
[2022-03-25 13:29] VITALS: BP 101/76; BP 116/42; PULSE 53; RESP 16; TEMP 36.8; O2SAT 98; BMI 36.6
--- NOTE | 2022-03-25 15:10 | ED.GENADULT ---
HPI - General Adult General Chief complaint: General Medical Stated complaint: LT SHLDR PAIN X 2 WEEKS,HEAD/EYE PAIN X 2 DAYS Time Seen by Provider: 03/25/22 14:56 Source: patient and old records reviewed Limitations: no limitations History of Present Illness HPI narrative: Patient complaining of 2 weeks of left shoulder pain. He describes it as sharp. It is worse with movement. It started 2 weeks ago after he closed his shower curtain. He felt a snap and it has hurt ever since. No prior history of shoulder injury. He did not fall. The pain radiates into the left side of his neck. He is also concerned because over the past few days he has had 2 episodes of decreased vision which have lasted about 20 minutes each. One episode yesterday and 2 episodes today. He states he has never had that before. He was seen here last month for a TIA with left-sided weakness. Workup was negative and he was discharged home. Those symptoms have not returned. He denies chest pain or shortness of breath. He does describe a headache which is left-sided. That has been there for several days as well. No fevers or chills. No posterior neck pain. No causative factors of which patient is aware. Related Data Home Medications Medication Instructions Recorded Confirmed atorvastatin 80 mg tablet 80 mg PO BEDTIME 06/03/20 01/30/22 carvedilol 25 mg tablet 25 mg PO BID 12/04/20 01/30/22 potassium chloride 10 mEq 1 tab PO BID 11/14/21 01/30/22 tablet,extended release qrjczffurndr-fxkcmogz-bjqiyb tablet 1 tab PO DAILY 01/30/22 01/30/22 Previous Rx's Medication Instructions Recorded fluticasone furoate 200 1 ea inhalation DAILY #60 ea 07/05/20 mcg-vilanterol 25 mcg/dose inhalation powder (Breo Ellipta) furosemide 40 mg tablet 40 mg PO DAILY #90 tabs 03/11/21 tamsulosin 0.4 mg capsule 0.4 mg PO DAILY 90 days #90 caps 03/29/21 verapamil 180 mg 24 hr 180 mg PO DAILY #90 caps 03/29/21 capsule,extended release losartan 100 mg tablet 100 mg PO DAILY #90 tabs 07/02/21 albuterol sulfate 90 mcg/actuation 2 puff inhalation Q6H PRN 11/16/21 aerosol inhaler (Ventolin HFA) shortness of breath or wheezing #8.5 grams aspirin 81 mg capsule 81 mg PO DAILY #30 caps 01/31/22 rivaroxaban 20 mg tablet (Xarelto) 20 mg PO QPM 30 days #30 tabs 01/31/22 sucralfate 100 mg/mL oral 10 ml PO BEDTIME #400 mL 02/04/22 suspension sulfamethoxazole 800 1 tab PO BID 10 days #20 tabs 03/01/22 mg-trimethoprim 160 mg tablet (Bactrim DS) pantoprazole 40 mg tablet,delayed 40 mg PO DAILY #90 tabs 03/04/22 release docusate sodium 100 mg capsule 200 mg PO DAILY #180 caps 03/11/22 polyethylene glycol 3350 17 17 g PO DAILY #510 grams 03/11/22 gram/dose oral powder (Miralax) sennosides 8.6 mg tablet (Senokot) 8.6 mg PO DAILY PRN Constipation 03/11/22 #90 tabs Allergies Allergy/AdvReac Type Severity Reaction Status Date / Time dabigatran etexilate Allergy Intermediate ITCHING Verified 02/04/22 12:55 [From PRADAXA] JORGE L Inhibitors Allergy Mild UNKNOWN, Verified 02/04/22 12:55 [Jorge L Inhibitors] FOUND IN MEDICAL RECORD 04/[address] GIPSON ezetimibe [From Zetia] Allergy Mild ANAPHYLAXIS Verified 02/04/22 12:55 apixaban [From ELIQUIS] Allergy Unknown UNKNOWN, Verified 02/04/22 12:55 rash rosuvastatin [Crestor] Allergy Unknown myalgia Verified 02/04/22 12:55 Review of Systems Constitutional: Comments: No fevers or chills Eyes: Comments: Vision is normal at the moment but with episodes decreased vision as mentioned Cardiovascular: Comments: No chest pain or palpitations Respiratory: Comments: No cough or dyspnea Gastrointestinal: Comments: No nausea vomiting diarrhea constipation or abdominal pain Genitourinary: Comments: No urinary symptoms Musculoskeletal: Comments: Left shoulder pain as mentioned Integumentary/Breasts: Comments: No rash Neurologic: Comments: Vision changes but no focal weakness PMFSH Past Medical History Medical History Acute kidney failure Acute respiratory failure with hypoxia Afib Altered mental status Anemia Anxiety and depression ARDS (adult respiratory distress syndrome) BPH (benign prostatic hyperplasia) Cholecystitis Chronic abdominal pain Constipation COPD (chronic obstructive pulmonary disease) COVID-19 COVID-19 virus infection Current use of anticoagulant therapy Diastolic CHF, acute on chronic Diverticulitis Frequency of micturition GERD (gastroesophageal reflux disease) Headache History of CVA (cerebrovascular accident) History of rib fracture Hypercholesterolemia Hypertension Hypertrophic cardiomyopathy Hypogammaglobulinemia Meningioma Obesity (BMI 30-39.9) Obstructive sleep apnea Paroxysmal atrial fibrillation Peripheral neuropathy Peripheral vascular disease Polyarthralgia Primary osteoarthritis of right knee Protrusion of lumbar intervertebral disc Tear of medial meniscus of knee Urinary incontinence Surgical History H/O colonoscopy History of left knee replacement History of tonsillectomy History of total right hip replacement History of transurethral resection of prostate Family History Family History Father No problems noted. Mother Hx of type 1 diabetes mellitus Social History Social History Household Members: Spouse Housing: House Do you presently have visiting nurse or other home services: No Alcohol intake: never Patient Tobacco Use Status: Former Tobacco user Years Smoked: 30 yrs ago Second Hand Smoke Exposure: No Advance Directives: Yes Advance Directives on File: Yes Advance Directives Date on File: 04/06/20 service: No Current occupational status: unemployed and retired Current occupation: Right Handed Physical Exam ED Vital Signs: Vital Signs - 24 hr 03/25/22 13:29 Temperature 98.2 F Pulse Rate 533 H Respiratory Rate 16 Blood Pressure 116/42 L Oxygen Delivery Method Room Air BMI result Body Mass Index 36.6 Const Other: Awake and alert. No acute distress. HENMT Other: Mild tenderness to left lateral neck. Some tenderness to left temporal area of scalp. No obvious swelling or crepitus or abnormalities. Eyes Other: Pupils equal round reactive to light. Extraocular muscles intact. Neck Other: No midline C-spine tenderness. Positive left trapezius tenderness Chest Other: Chest wall nontender Resp Other: Clear and equal bilaterally without wheezes rales or rhonchi Cardio Other: Regular rate and rhythm without murmurs rubs or gallops GI Other: Soft nontender nondistended Skin Other: Warm pink and dry without rash Neuro Other: Nonfocal neuro exam Extrem Other: Left shoulder with limited range of motion secondary to pain. Some tenderness to left anterior shoulder. No crepitus deformity or erythema or increased warmth noted. Left hand with normal watershed coordinator strength normal sensation. No discomfort in the forearm, wrist, elbow. Remainder of musculoskeletal exam is unremarkable Medical Decision Making Medical Decision Making MDM Narrative: Patient with left shoulder pain most consistent with atraumatic pain such as bursitis or calcific tendinosis. X-ray for potential abnormalities. Clinically does not appear to be dislocated. Fracture possible but unlikely given mechanism. Secondary complaint of left-sided head pain with transient vision changes is more concerning especially in the light of recent TIA. He could be having episodes of amaurosis fugax. Temporal arteritis is a possibility. Looking through his old records his last sed rate was 2 years ago and was elevated at 65 at the time. Will repeat a sed rate, CT scan, other lab work. X-ray of left shoulder for workup. 16:07. CBC shows white count of 11 but otherwise unremarkable with a hemoglobin of 11 which is at patient's baseline. Chemistries with no significant acute changes. Creatinine is 1. Shoulder x-ray shows degenerative changes but no acute abnormalities by my interpretation. EKG, however, shows third-degree heart block which is new. Patient will need to be hospitalized and will likely require pacemaker insertion. He is hemodynamically stable at the moment. Will put pacer pads at bedside but he currently does not require internal or external pacing acutely. Sed rate is 53 which is lower than his prior sed rate 2 years ago. Unlikely to represent temporal arteritis and this instance His visual changes may be secondary to the heart block, but will still need to complete the remainder of workup including CT scan Lab Data 03/25/22 15:16 03/25/22 15:16 Labs: Lab Results 03/25/22 03/25/22 03/25/22 Range/Units 15:16 15:16 15:16 WBC 11.5 H (4.8-10.8) X10*3/uL RBC 3.88 L (4.60-5.80) X10*6/uL Hgb 11.0 L (14.0-18.0) g/dl Hct 34.5 L (42.0-52.0) % MCV 88.9 (80.0-98.0) fL MCH 28.4 (27.0-33.0) pg MCHC 31.9 (31.0-36.0) g/dl RDW 14.1 (11.0-16.0) % Plt Count 203 (160-400) X10*3/uL MPV 10.1 (9.4-12.4) fL Immature Gran % (Auto) 0.3 (0.0-0.4) % Neut % (Auto) 70.9 (45-73) % Lymph % (Auto) 18.9 L (20-40) % [place] % (Auto) 7.6 (2-11) % Eos % (Auto) 1.9 (0-4) % Baso % (Auto) 0.4 (0-2) % Lymph # (Auto) 2.2 (1.2-4.9) X10*3/uL [place] # (Auto) 0.9 (0.1-1.2) X10*3/uL Eos # (Auto) 0.2 (0.0-0.4) X10*3/uL Baso # (Auto) 0.1 (0.0-0.2) X10*3/uL Abs Immat Gran (auto) 0.03 (0.00-0.03) X10*3/uL Absolute Neuts (auto) 8.2 (2.0-8.3) x10*3/uL Absolute Nucleated RBC 0.000 (0.0-0.012) X10*3/uL Nucleated RBC % (auto) 0.0 (0.0-0.2) /100WBC ESR 53 H (0-15) MM/HR Sodium 145 (135-145) mmol/L Potassium 4.5 D (3.3-5.1) mmol/L Chloride 111 H (96-108) mmol/L Carbon Dioxide 27 (22-29) mmol/L Anion Gap 12 (12-20) BUN 23 H (9-16) mg/dL Creatinine 1.00 (0.5-1.4) mg/dL Estim Creat Clear Calc 52.7 Estimated GFR > 60 Random Glucose 109 (60-115) mg/dL Calcium 8.9 D (8.4-10.2) mg/dL Total Bilirubin 0.3 (0.0-1.0) mg/dL AST 34 (5-37) U/L ALT 28 (0-40) U/L Alkaline Phosphatase 68 (39-117) U/L Total Protein 5.6 L (6.5-8.0) g/dL Albumin 3.6 (3.5-5.0) g/dL Discharge Plan Discharge Prescriptions: No Action Breo Ellipta 200-25 mcg/dose blister with device 1 ea inhalation DAILY Qty: 60 2RF furosemide 40 mg tablet 40 mg PO DAILY Qty: 90 1RF tamsulosin 0.4 mg capsule 0.4 mg PO DAILY 90 Days Qty: 90 3RF verapamil 180 mg capsule,ext rel. pellets 24 hr 180 mg PO DAILY Qty: 90 3RF losartan 100 mg tablet 100 mg PO DAILY Qty: 90 0RF Xarelto 20 mg tablet 20 mg PO QPM 30 Days Qty: 30 5RF pantoprazole 40 mg tablet,delayed release (DR/EC) 40 mg PO DAILY Qty: 90 2RF docusate sodium 100 mg capsule 200 mg PO DAILY Qty: 180 3RF sennosides [Senokot] 8.6 mg tablet 8.6 mg PO DAILY PRN (Reason: Constipation) Qty: 90 1RF polyethylene glycol 3350 [Miralax] 17 gram/dose powder 17 g PO DAILY Qty: 510 2RF atorvastatin 80 mg tablet 80 mg PO BEDTIME potassium chloride 10 mEq tablet extended release 1 tab PO BID albuterol sulfate [Ventolin HFA] 90 mcg/actuation HFA aerosol inhaler 2 puff inhalation Q6H PRN (Reason: shortness of breath or wheezing) Qty: 8.5 0RF sulfamethoxazole-trimethoprim [Bactrim DS] 800-160 mg tablet 1 tab PO BID 10 Days Qty: 20 0RF nekhysmfyvza-rqmdegbv-cbejnp Tablet 1 tab PO DAILY aspirin 81 mg capsule 81 mg PO DAILY Qty: 30 0RF carvedilol 25 mg tablet 25 mg PO BID sucralfate 100 mg/mL suspension 10 ml PO BEDTIME Qty: 400 3RF
--- NOTE | 2022-03-25 15:13 | ECG_ITS ---
Test Reason : SHOULDER PAIN Blood Pressure : / mmHG Vent. Rate : 044 BPM Atrial Rate : 059 BPM P-R Int : 000 ms QRS Dur : 124 ms QT Int : 490 ms P-R-T Axes : 032 004 103 degrees QTc Int : 418 ms Sinus bradycardia with complete heart block and Wide QRS rhythm Right bundle branch block Septal infarct , age undetermined T wave abnormality, consider lateral ischemia Abnormal ECG When compared with ECG of 30-JAN-2022 02:33, Complete heart block present Referred By: Corby Clay Electronically Signed By:Jose F Lee
[2022-03-25 15:25] LABS: MANUAL DIFF FLAG NO
[2022-03-25 15:27] LABS: Basophils Absolute Auto 0.1 X10*3/uL (0.0-0.2); Basophils Percent Auto 0.4 % (0-2); Eosinophils Absolute Auto 0.2 X10*3/uL (0.0-0.4); Eosinophils Percent Auto 1.9 % (0-4); Hematocrit 34.5 % (42.0-52.0); Imm Gran Abs Auto 0.03 X10*3/uL (0.00-0.03); Imm Gran Pct Auto 0.3 % (0.0-0.4); Lymphocytes Absolute Auto 2.2 X10*3/uL (1.2-4.9); Lymphocytes Percent Auto 18.9 % (20-40); Mean Corpuscular HGB Conc 31.9 g/dl (31.0-36.0); Mean Corpuscular Hemoglobin 28.4 pg (27.0-33.0); Mean Corpuscular Volume 88.9 fL (80.0-98.0); Mean Platelet Volume 10.1 fL (9.4-12.4); Monocytes Absolute Auto 0.9 X10*3/uL (0.1-1.2); Monocytes Percent Auto 7.6 % (2-11); Neutrophils Absolute Auto 8.2 x10*3/uL (2.0-8.3); Neutrophils Percent Auto 70.9 % (45-73); Platelet Count 203 X10*3/uL (160-400); Red Blood Count 3.88 X10*6/uL (4.60-5.80); Red Cell Distribution Width 14.1 % (11.0-16.0); White Blood Count 11.5 X10*3/uL (4.8-10.8)
[2022-03-25 15:43] LABS: Alanine Aminotransferase 28 U/L (0-40); Albumin Level 3.6 g/dL (3.5-5.0); Alkaline Phosphatase 68 U/L (39-117); Anion Gap 12 (12-20); Aspartate Amino Transferase 34 U/L (5-37); Bilirubin Total 0.3 mg/dL (0.0-1.0); Blood Urea Nitrogen 23 mg/dL (9-16); Calcium 8.9 mg/dL (8.4-10.2); Carbon Dioxide 27 mmol/L (22-29); Chloride 111 mmol/L (96-108); Creatinine Clr Calc Pharmacy 52.7; Estimated Glomerular Filt Rate > 60; Glucose Random 109 mg/dL (60-115); Potassium 4.5 mmol/L (3.3-5.1); Sodium 145 mmol/L (135-145); Total Protein 5.6 g/dL (6.5-8.0)
[2022-03-25 16:00] LABS: Erythrocyte Sedimentation Rate 53 MM/HR (0-15)
--- NOTE | 2022-03-25 17:17 | PM.CNCAR ---
History of Present Illness History of Present Illness Date of Service: 03/25/22 Requesting physician: Corby Clay Chief complaint: CHB Narrative: 86-year-old gentleman presenting with left shoulder pain due to arthritis and was noticed to have complete heart block. He has been experiencing some which will changes but denying any dizziness or lightheadedness. No syncope. No chest pain or shortness of breath. He has been on carvedilol and verapamil in the past. He has been on anticoagulation with previous history of paroxysmal atrial fibrillation. Currently asymptomatic. Has known right bundle-branch block and currently has a junctional escape which is quite reliable. [facility] Past Medical History Medical History Acute kidney failure Acute respiratory failure with hypoxia Afib Altered mental status Anemia Anxiety and depression ARDS (adult respiratory distress syndrome) BPH (benign prostatic hyperplasia) Cholecystitis Chronic abdominal pain Constipation COPD (chronic obstructive pulmonary disease) COVID-19 COVID-19 virus infection Current use of anticoagulant therapy Diastolic CHF, acute on chronic Diverticulitis Frequency of micturition GERD (gastroesophageal reflux disease) Headache History of CVA (cerebrovascular accident) History of rib fracture Hypercholesterolemia Hypertension Hypertrophic cardiomyopathy Hypogammaglobulinemia Meningioma Obesity (BMI 30-39.9) Obstructive sleep apnea Paroxysmal atrial fibrillation Peripheral neuropathy Peripheral vascular disease Polyarthralgia Primary osteoarthritis of right knee Protrusion of lumbar intervertebral disc Tear of medial meniscus of knee Urinary incontinence Family History Family History Father No problems noted. Mother Hx of type 1 diabetes mellitus Surgical History Surgical History H/O colonoscopy History of left knee replacement History of tonsillectomy History of total right hip replacement History of transurethral resection of prostate Social History Social History Household Members: Spouse Housing: House Do you presently have visiting nurse or other home services: No Alcohol intake: never Patient Tobacco Use Status: Former Tobacco user Years Smoked: 30 yrs ago Second Hand Smoke Exposure: No Advance Directives: Yes Advance Directives on File: Yes Advance Directives Date on File: 04/06/20 service: No Current occupational status: unemployed and retired Current occupation: Right [employer]ed Meds Allergies Allergy/AdvReac Type Severity Reaction Status Date / Time dabigatran etexilate Allergy Intermediate ITCHING Verified 02/04/22 12:55 [From PRADAXA] JORGE L Inhibitors Allergy Mild UNKNOWN, Verified 02/04/22 12:55 [Jorge L Inhibitors] FOUND IN MEDICAL RECORD 04/[address] GIPSON ezetimibe [From Zetia] Allergy Mild ANAPHYLAXIS Verified 02/04/22 12:55 apixaban [From ELIQUIS] Allergy Unknown UNKNOWN, Verified 02/04/22 12:55 rash rosuvastatin [Crestor] Allergy Unknown myalgia Verified 02/04/22 12:55 Home Medications Medication Instructions Recorded Confirmed Last Taken Type atorvastatin 80 mg tablet 80 mg PO BEDTIME 06/03/20 03/25/22 07/09/10 History carvedilol 25 mg tablet 25 mg PO BID 12/04/20 03/25/22 Unknown History potassium chloride 10 mEq 1 tab PO BID 11/14/21 03/25/22 Unknown History tablet,extended release kfbwtkostzns-kbektyqa-thvsvx tablet 1 tab PO DAILY 01/30/22 03/25/22 Unknown History docusate sodium 100 mg capsule 100 mg PO DAILY 03/25/22 03/25/22 Unknown History pantoprazole 40 mg tablet,delayed 40 mg PO DAILY@0630 03/25/22 03/25/22 Unknown History release rivaroxaban 20 mg tablet (Xarelto) 20 mg PO DAILY@1700 03/25/22 03/25/22 Unknown History simethicone 80 mg chewable tablet 80 mg PO QID PRN GAS 03/25/22 03/25/22 Unknown History Physical Exam Vital Signs: Vital Signs: Last Vital Signs Temp 98.2 F 03/25/22 13:29 Pulse 533 H 03/25/22 13:29 Resp 16 03/25/22 13:29 BP 116/42 L 03/25/22 13:29 O2 Del Method 03/25/22 13:29 BMI result Body Mass Index 36.6 GENERAL APPEARANCE: in no acute distress, pleasant. NECK: no carotid bruit, no jugular venous distention. SKIN: no suspicious lesions, warm and dry. HEART: no murmurs, regular rate and rhythm. Bradycardic. LUNGS: clear to auscultation bilaterally. ABDOMEN: soft, nontender. EXTREMITIES: no edema. PERIPHERAL PULSES: equal. NEUROLOGIC: No gross deficits, AAO X 3 Objective Labs and Meds 03/25/22 15:16 03/25/22 15:16 Lab results: Laboratory Results - last 24 hr 03/25/22 03/25/22 03/25/22 15:16 15:16 15:16 WBC 11.5 H RBC 3.88 L Hgb 11.0 L Hct 34.5 L MCV 88.9 MCH 28.4 MCHC 31.9 RDW 14.1 Plt Count 203 MPV 10.1 Immature Gran % (Auto) 0.3 Neut % (Auto) 70.9 Lymph % (Auto) 18.9 L [place] % (Auto) 7.6 Eos % (Auto) 1.9 Baso % (Auto) 0.4 Lymph # (Auto) 2.2 [place] # (Auto) 0.9 Eos # (Auto) 0.2 Baso # (Auto) 0.1 Abs Immat Gran (auto) 0.03 Absolute Neuts (auto) 8.2 Absolute Nucleated RBC 0.000 Nucleated RBC % (auto) 0.0 ESR 53 H Sodium 145 Potassium 4.5 D Chloride 111 H Carbon Dioxide 27 Anion Gap 12 BUN 23 H Creatinine 1.00 Estim Creat Clear Calc 52.7 Estimated GFR > 60 Random Glucose 109 Calcium 8.9 D Total Bilirubin 0.3 AST 34 ALT 28 Alkaline Phosphatase 68 Total Protein 5.6 L Albumin 3.6 Imaging Radiologist's impression: Impressions Shoulder X-Ray 03/25/22 15:44 IMPRESSION: * No acute fracture or dislocation. * Degenerative changes as described. Cervical Spine CT 03/25/22 16:11 IMPRESSION: 1. No acute intracranial pathology. 2. No CT evidence of acute cervical spine fracture or traumatic subluxation Head CT 03/25/22 16:11 IMPRESSION: 1. No acute intracranial pathology. 2. No CT evidence of acute cervical spine fracture or traumatic subluxation Assessment and Plan (1) Heart block AV third degree: Status: Acute Plan Pleasant 86-year-old gentleman presenting for left shoulder pain due to arthritis and instantly found to have complete heart block. Currently asymptomatic. Blood pressure is good. Hold the carvedilol and verapamil. Keep him NPO after midnight. We will consult thoracic surgery and see if he can get permanent pacemaker tomorrow. Hold the Xarelto tonight. He does not need to be bridged with Lovenox. We will follow along with you. Thank you for allowing me to participate in the care of your patient. Please feel free to contact me if you have any questions. Time Spent With Patient Time: Total time managing care of this patient today ____ minutes. Procedures Date of Service Date of Service: 03/25/22
--- NOTE | 2022-03-25 17:23 | PM.IMHP ---
History of Present Illness Date of Service: 03/25/22 Attending physician on admission: Lul Castro Chief Complaint: Blurry vision 86-year-old gentleman with past medical history significant for hypertension, paroxysmal atrial fibrillation on Xarelto, history of chronic diastolic heart failure,, anxiety depression, recent hospitalization to [facility] in January with TIA presented to [facility] due to multiple complaints as per patient for last 2 weeks he is having intermittent lightheadedness, dizziness, and left shoulder discomfort, that he described as worse with movement ,that started after he closed his shower curtain, pain radiates to left side of his neck, but what brought him to hospital today was pressure in head since yesterday, associated with blurry vision, yesterday at 09:30 patient was watching TV and suddenly lost his vision that lasted for 30 minutes, later vision returned, same thing happened again this morning without associated weakness, numbness, no associated chest pain, no palpitation no syncope or near syncope, workup in ER showed degenerative changes of shoulder x-ray, otherwise no acute abnormality sed rate was 53, CT head showed no acute intracranial pathology, CT cervical spine showed no acute cervical spine fractures, or traumatic subluxation, and EKG showed third-degree heart block therefore patient is being admitted to [facility] for continued monitoring treatment and pacemaker placement. Review of Systems Review of Systems: General head pressure, no dizziness ,no fever chills. CVS no chest pain, no palpitation. Respiratory no cough, chronic shortness of breath unchanged Gastrointestinal no nausea no vomiting, no abdominal pain no urinary frequency, no urgency Yes all other systems are reviewed and are negative [facility] Medical History Acute kidney failure Acute respiratory failure with hypoxia Afib Altered mental status Anemia Anxiety and depression ARDS (adult respiratory distress syndrome) BPH (benign prostatic hyperplasia) Cholecystitis Chronic abdominal pain Constipation COPD (chronic obstructive pulmonary disease) COVID-19 COVID-19 virus infection Current use of anticoagulant therapy Diastolic CHF, acute on chronic Diverticulitis Frequency of micturition GERD (gastroesophageal reflux disease) Headache History of CVA (cerebrovascular accident) History of rib fracture Hypercholesterolemia Hypertension Hypertrophic cardiomyopathy Hypogammaglobulinemia Meningioma Obesity (BMI 30-39.9) Obstructive sleep apnea Paroxysmal atrial fibrillation Peripheral neuropathy Peripheral vascular disease Polyarthralgia Primary osteoarthritis of right knee Protrusion of lumbar intervertebral disc Tear of medial meniscus of knee Urinary incontinence Family History Father No problems noted. Mother Hx of type 1 diabetes mellitus Surgical History H/O colonoscopy History of left knee replacement History of tonsillectomy History of total right hip replacement History of transurethral resection of prostate Social History Household Members: Family Housing: House Housing Other:: Home for the elderly Do you presently have visiting nurse or other home services: Yes Alcohol intake: never Patient Tobacco Use Status: Former Tobacco user Years Smoked: 30 yrs ago Second Hand Smoke Exposure: No Use of substances other than those prescribed or required for medical reasons: No Currently Displaying Signs/Symptoms of Drug Intoxication Withdrawal: No Have you been hit, kicked, punched, or otherwise hurt by someone within the past year? If so, by whom?: No Do you feel safe in your current relationship?: Yes Is there a partner from a previous relationship who is making you feel unsafe now?: No Are you made to feel afraid or neglected: No Advance Directives: Yes Advance Directives on File: Yes Advance Directives Date on File: 04/06/20 Do you have thoughts of harming others: None Do you have a plan to hurt others: No Plan Nutrition Risks: No Nutritional Risk service: No Current occupational status: unemployed and retired Current occupation: Right [employer]ed Meds Allergies Allergy/AdvReac Type Severity Reaction Status Date / Time dabigatran etexilate Allergy Intermediate ITCHING Verified 02/04/22 12:55 [From PRADAXA] JORGE L Inhibitors Allergy Mild UNKNOWN, Verified 02/04/22 12:55 [Jorge L Inhibitors] FOUND IN MEDICAL RECORD 04/[address] GIPSON ezetimibe [From Zetia] Allergy Mild ANAPHYLAXIS Verified 02/04/22 12:55 apixaban [From ELIQUIS] Allergy Unknown UNKNOWN, Verified 02/04/22 12:55 rash rosuvastatin [Crestor] Allergy Unknown myalgia Verified 02/04/22 12:55 Home Medications Medication Instructions Recorded Confirmed Last Taken Type atorvastatin 80 mg tablet 80 mg PO BEDTIME 06/03/20 03/25/2211 History carvedilol 25 mg tablet 25 mg PO BID 12/04/20 03/25/22 Unknown History potassium chloride 10 mEq 1 tab PO BID 11/14/21 03/25/22 Unknown History tablet,extended release smildslfxlev-fslplrpw-neqazt tablet 1 tab PO DAILY 01/30/22 03/25/22 Unknown History docusate sodium 100 mg capsule 100 mg PO DAILY 03/25/22 03/25/22 Unknown History pantoprazole 40 mg tablet,delayed 40 mg PO DAILY@0630 03/25/22 03/25/22 Unknown History release rivaroxaban 20 mg tablet (Xarelto) 20 mg PO DAILY@1700 03/25/22 03/25/22 Unknown History simethicone 80 mg chewable tablet 80 mg PO QID PRN GAS 03/25/22 03/25/22 Unknown History Physical Exam Vital Signs and Narrative: Vital Signs: Last Vital Signs Temp 98.2 F 03/25/22 13:29 Pulse 533 H 03/25/22 13:29 Resp 16 03/25/22 13:29 BP 116/42 L 03/25/22 13:29 O2 Del Method 03/25/22 13:29 BMI result Body Mass Index 36.6 Const: Other: General resting comfortably in no acute distress. Pupil equal reactive to light and accommodation anicteric sclera Neck no JVD. CVS regular rate rhythm, Respiratory lungs clear to auscultation, no respiratory distress, no wheeze, no rhonchi. Gastrointestinal abdomen soft, nontender, bowel sounds audible, Extremities no edema. Neuro nonfocal , speech clear. Skin no rash Psych appropriate affect Results Labs 03/25/22 15:16 03/25/22 15:16 Labs: Laboratory Results - last 24 hr 03/25/22 03/25/22 03/25/22 15:16 15:16 15:16 MCV 88.9 MCH 28.4 MCHC 31.9 RDW 14.1 Plt Count 203 MPV 10.1 Immature Gran % (Auto) 0.3 Neut % (Auto) 70.9 Lymph % (Auto) 18.9 L [place] % (Auto) 7.6 Eos % (Auto) 1.9 Baso % (Auto) 0.4 Lymph # (Auto) 2.2 [place] # (Auto) 0.9 Eos # (Auto) 0.2 Baso # (Auto) 0.1 Abs Immat Gran (auto) 0.03 Absolute Neuts (auto) 8.2 Absolute Nucleated RBC 0.000 Nucleated RBC % (auto) 0.0 ESR 53 H Anion Gap 12 Estim Creat Clear Calc 52.7 Estimated GFR > 60 Random Glucose 109 Calcium 8.9 D Total Bilirubin 0.3 AST 34 ALT 28 Alkaline Phosphatase 68 Total Protein 5.6 L Albumin 3.6 Imaging Radiologist's Impressions: Impressions Shoulder X-Ray 03/25/22 15:44 IMPRESSION: * No acute fracture or dislocation. * Degenerative changes as described. Cervical Spine CT 03/25/22 16:11 IMPRESSION: 1. No acute intracranial pathology. 2. No CT evidence of acute cervical spine fracture or traumatic subluxation Head CT 03/25/22 16:11 IMPRESSION: 1. No acute intracranial pathology. 2. No CT evidence of acute cervical spine fracture or traumatic subluxation Assessment and Plan (1) Heart block AV third degree: Status: Acute (2) Acute shoulder pain: Status: Acute Plan 86-year-old gentleman with past medical history of prior CVA, paroxysmal atrial fibrillation on Xarelto, hypertension, GERD, hyperlipidemia, benign prostate hyperplasia presented to emergency room due to symptoms of lightheadedness and dizziness of 2 weeks duration as well as left shoulder pain, since yesterday patient had 2 episodes of loss of vision lasting for 30 minutes that prompted him to come to the hospital, patient EKG showed third-degree block therefore being admitted to telemetry unit.. Third-degree AV block Admitted to telemetry, hold aspirin, Xarelto, verapamil and Coreg No chest pain, normal troponin. Consult thoracic surgery , keep patient NPO after midnight Essential hypertension Hold Coreg and verapamil and resume Lasix and losartan Left shoulder pain likely musculoskeletal, hot pack and Tylenol as needed BPH continue Flomax COPD no acute exacerbation, continue home inhalers Paroxysmal atrial fibrillation now in sinus bradycardia will hold beta-blockers, and Xarelto for possible pacemaker placement Hyperlipidemia continue statins Code status full code DVT prophylaxis with compression boots avoid anticoagulation for possible surgery In my clinical opinion patient need two night inpatient stay for complete heart block requiring pacemaker placement. Time Spent With Patient Time: Total time managing care of this patient today ____ minutes. Quality Stroke Does the patient have a stroke diagnosis?: No VTE Prior VTE?: No VTE Risk Level:: Medical - moderate - high VTE Device Contraindication: N/A - Device Ordered VTE Drug Contraindication: Treatment Not Indicated
[2022-03-25 17:40] VITALS: BP 160/61; PULSE 56; RESP 16; TEMP 36.8; O2SAT 99
[2022-03-25 17:59] LABS: COVID-19 Test Negative (Negative); IDNOW Serial# 16C4AD1C
[2022-03-25 18:05] LABS: Troponin-I High Sensitivity 9.7 ng/L (<3.5-35.0)
--- NOTE | 2022-03-25 19:22 | PC.NURSE ---
This nurse was given report at 19:00. Pt was transfer by Mukund at 19:22.
--- NOTE | 2022-03-25 19:28 | PC.NURSE ---
The admission sheet was completed by this nurse, but report was given by ELMER adamson.
[2022-03-25 19:52] VITALS: BP 182/96; PULSE 65; RESP 18; TEMP 36.1; O2SAT 98
[2022-03-25] MEDS: Atorvastatin Calcium 80 MG TABLET PO (20:37)
[2022-03-25] MEDS: 0.9 % Sodium Chloride Flush 3 ML SYRINGE IVFLUSH (20:37)
[2022-03-25] MEDS: Sucralfate Oral Suspension 1 GM/10 ML ORAL.SUSP PO (20:37)
[2022-03-25 23:07] VITALS: BP 192/81; PULSE 60; RESP 18; TEMP 37.1; O2SAT 96
[2022-03-25 23:29] VITALS: BP 170/68
[2022-03-25] MEDS: Acetaminophen 325 MG TABLET 650 MG PO (23:43)
[2022-03-26] VITALS (10 sets, daily range): BP systolic 125–187; BP diastolic 57–96; PULSE 62–85; RESP 16–20; TEMP 36.1–37.2; O2SAT 95–100
[2022-03-26] MEDS: Acetaminophen 325 MG TABLET 650 MG PO (06:12)
[2022-03-26] MEDS: ceFAZolin Sodium/Dextrose,Iso 2 GM/50 ML PIGGYBACK IV (06:13)
[2022-03-26 07:28] LABS: INTERNATIONAL NORM RATIO 1.3 (0.9-1.1); Prothrombin Time 15.5 SEC (10.0-13.1)
[2022-03-26 07:32] LABS: Partial Thromboplastin Time 32.4 SEC (26.0-36.4)
[2022-03-26] MEDS: 0.9 % Sodium Chloride Flush 3 ML SYRINGE IVFLUSH (08:49)
[2022-03-26] MEDS: Lactated Ringers 1,000 ML 50 ML IVCONT (08:49)
[2022-03-26] MEDS: Losartan Potassium 50 MG TABLET 100 MG PO (08:52)
--- NOTE | 2022-03-26 09:46 | MHC.CM.PN ---
Patient is here with AMS; CM spoke with /HCP/[place] @ [phone] and addressed IMM with her (original will be mailed certified letter to [place] and a copy will be placed on the chart). Patient lives in an apartment with his and he uses a walker to assist with mobility. Patient receives [address] [employer] hours/week and a weekly CCA/RN visit and home/resume said services is the goal. CM has initiated and will follow for dc planning. Patient has received Moderna vax x3 and the PCP is Dr. Arti Catalan.
--- NOTE | 2022-03-26 11:52 | PM.EVENT ---
Event Note Date of Service: 03/26/22 Event Note: THORACIC SURGERY Patient scheduled for dual chamber pacemaker insertion today @ 2:30pm with Dr. Handley. Time Spent With Patient Time: Total time managing care of this patient today ____ minutes.
--- NOTE | 2022-03-26 14:09 | HO.PM.IMPN ---
Subjective Subjective Date of Service: 03/26/22 Interval History: Complaining of feeling hungry denies headache lightheadedness dizziness, no chest pain, no palpitation, tele monitor showed sinus rhythm, no acute abnormalities overnight, patient is NPO for pacemaker placement at 14:30 today. Review of Systems General no headache, no dizziness no fever chills. CVS no chest pain, no palpitation. Respiratory no cough, no sob. Gastrointestinal no nausea, no vomiting, no abdominal pain Review of Systems: Yes all other systems are reviewed and are negative Physical Exam Vital Signs: Vital Signs: Last Vital Signs Temp 98.0 F 03/26/22 10:55 Pulse 68 03/26/22 10:55 Resp 18 03/26/22 10:55 BP 160/88 H 03/26/22 10:55 Pulse Ox 100 03/26/22 10:55 O2 Del Method 03/26/22 10:55 O2 Flow Rate 96 03/25/22 23:07 BMI result Body Mass Index 36.6 Const: Other: General? resting comfortably in no acute distress.? Pupil equal reactive to light and accommodation anicteric sclera Neck? no JVD. CVS? regular rate rhythm, Respiratory lungs clear to auscultation, no respiratory distress, no wheeze, no rhonchi. Gastrointestinal abdomen soft, nontender, bowel sounds audible, Extremities no edema. Neuro nonfocal , speech clear. Skin no rash Psych appropriate affect Objective Data Active Medications Acetaminophen (Acetaminophen 325 Mg Tablet) 650 mg PO Q6H PRN PRN Reason: Pain, Mild (Pain Scale 1-3) Last Admin: 03/26/22 06:12 Dose: 650 mg Documented By: SHALONDA Albuterol Sulfate (Albuterol Sulfate 90 Mcg 8 Gm Inhaler) 2 puff INHALE Q6H PRN PRN Reason: shortness of breath or wheezing Atorvastatin Calcium (Atorvastatin Calcium 80 Mg Tablet) 80 mg PO BEDTIME [facility] Last Admin: 03/25/22 20:37 Dose: 80 mg Documented By: SHALONDA Docusate Sodium (Docusate Sodium 100 Mg Capsule) 100 mg PO DAILY [facility] Last Admin: 03/26/22 07:49 Dose: Not Given Documented By: EDU Non-Admin Reason: NPO Fluticasone/Vilanterol (Fluticasone/Vilanterol 200/25 Blst.W.Dev) 1 puff INHALE RDAILY [facility] Last Admin: 03/26/22 08:44 Dose: Not Given Documented By: AMBER Non-Admin Reason: med unavail pharmacy called Lactated Ringer's (Lr) 1,000 mls @ 50 mls/hr IVCONT .Q20H [facility] Last Admin: 03/26/22 08:49 Dose: 50 mls/hr Documented By: EDU Losartan Potassium (Losartan Potassium 50 Mg Tablet) 100 mg PO DAILY [facility]; Protocol Last Admin: 03/26/22 08:52 Dose: 100 mg Documented By: EDU Comments: verbal order to administer BP med. Pt NPO Melatonin (Melatonin 3 Mg Tablet) 3 mg PO BEDTIME PRN PRN Reason: Insomnia Ondansetron HCl (Ondansetron Hcl 4 Mg/2 Ml Vial) 4 mg IVPUSH Q8H PRN PRN Reason: Nausea and Vomiting Polyethylene Glycol (Polyethylene Glycol 3350 17 Gm Powd.Pack) 17 gm PO DAILY [facility] Last Admin: 03/26/22 07:49 Dose: Not Given Documented By: EDU Non-Admin Reason: NPO Senna (Sennosides 8.6 Mg Tablet) 8.6 mg PO DAILY PRN PRN Reason: Constipation Simethicone (Simethicone 80 Mg Tab.Chew) 80 mg PO QID PRN PRN Reason: Gas Sodium Chloride (0.9 % Sodium Chloride Flush 3 Ml Syringe) 3 ml IVFLUSH QSHIFT [facility] Last Admin: 03/26/22 08:49 Dose: 3 ml Documented By: EDU Sucralfate (Sucralfate Oral Suspension 1 Gm/10 Ml Oral.Susp) 1 gm PO BEDTIME [facility] Last Admin: 03/25/22 20:37 Dose: 1 gm Documented By: SHALONDA Tamsulosin HCl (Tamsulosin Hcl 0.4 Mg Capsule) 0.4 mg PO DAILY [facility] Last Admin: 03/26/22 07:49 Dose: Not Given Documented By: EDU Non-Admin Reason: NPO Labs 03/25/22 15:16 03/25/22 15:16 Labs: Laboratory Results - last 24 hr 03/25/22 03/25/22 03/25/22 15:16 15:16 15:16 MCV 88.9 MCH 28.4 MCHC 31.9 RDW 14.1 Plt Count 203 MPV 10.1 Immature Gran % (Auto) 0.3 Neut % (Auto) 70.9 Lymph % (Auto) 18.9 L [place] % (Auto) 7.6 Eos % (Auto) 1.9 Baso % (Auto) 0.4 Lymph # (Auto) 2.2 [place] # (Auto) 0.9 Eos # (Auto) 0.2 Baso # (Auto) 0.1 Abs Immat Gran (auto) 0.03 Absolute Neuts (auto) 8.2 Absolute Nucleated RBC 0.000 Nucleated RBC % (auto) 0.0 ESR 53 H PT INR APTT Anion Gap 12 Estim Creat Clear Calc 52.7 Estimated GFR > 60 Random Glucose 109 Calcium 8.9 D Total Bilirubin 0.3 AST 34 ALT 28 Alkaline Phosphatase 68 Troponin I High Sens Total Protein 5.6 L Albumin 3.6 COVID-19 (FERMIN) COVID-19 [employer] Com Blood Type Antibody Screen 03/25/22 03/25/22 03/26/22 17:31 17:38 06:36 MCV MCH MCHC RDW Plt Count MPV Immature Gran % (Auto) Neut % (Auto) Lymph % (Auto) [place] % (Auto) Eos % (Auto) Baso % (Auto) Lymph # (Auto) [place] # (Auto) Eos # (Auto) Baso # (Auto) Abs Immat Gran (auto) Absolute Neuts (auto) Absolute Nucleated RBC Nucleated RBC % (auto) ESR PT 15.5 H INR 1.3 H APTT 32.4 D Anion Gap Estim Creat Clear Calc Estimated GFR Random Glucose Calcium Total Bilirubin AST ALT Alkaline Phosphatase Troponin I High Sens 9.7 Total Protein Albumin COVID-19 (FERMIN) Negative COVID-19 [employer] [facility] See Note Blood Type Antibody Screen 03/26/22 03/26/22 06:36 06:36 MCV MCH MCHC RDW Plt Count MPV Immature Gran % (Auto) Neut % (Auto) Lymph % (Auto) [place] % (Auto) Eos % (Auto) Baso % (Auto) Lymph # (Auto) [place] # (Auto) Eos # (Auto) Baso # (Auto) Abs Immat Gran (auto) Absolute Neuts (auto) Absolute Nucleated RBC Nucleated RBC % (auto) ESR PT INR APTT Cancelled Anion Gap Estim Creat Clear Calc Estimated GFR Random Glucose Calcium Total Bilirubin AST ALT Alkaline Phosphatase Troponin I High Sens Total Protein Albumin COVID-19 (FERMIN) COVID-19 Clin Com Blood Type A Positive Antibody Screen NEGATIVE Assessment and Plan (1) Heart block AV third degree: Status: Acute (2) Acute shoulder pain: Status: Acute Plan 86-year-old gentleman with past medical history of prior CVA, paroxysmal atrial fibrillation on Xarelto, hypertension, GERD, hyperlipidemia, benign prostate hyperplasia presented to emergency room due to symptoms of lightheadedness and dizziness of 2 weeks duration as well as left shoulder pain, since yesterday patient had 2 episodes of loss of vision lasting for 30 minutes that prompted him to come to the hospital, patient EKG showed third-degree block therefore being admitted to telemetry unit.. Third-degree AV block Scheduled for pacemaker placement this afternoon, aspirin, Xarelto, verapamil and Coreg are on hold No chest pain, normal troponin. Resume diet after pacemaker placement. Essential hypertension Continue losartan, Coreg and verapamil on hold, will discuss with Cardiology if okay to resume medication after pacemaker placement. Left shoulder pain likely musculoskeletal, x-ray showed degenerative changes, continue hot pack and Tylenol as needed. BPH continue Flomax COPD no acute exacerbation, continue home inhalers. Paroxysmal atrial fibrillation now in sinus rhythm, beta-blockers, and Xarelto on hold for pacemaker placement. Hyperlipidemia continue statins Code status full code DVT prophylaxis with compression boots avoid anticoagulation for possible surgery patient need continued inpatient stay for complete heart block is scheduled for pacemaker placement this afternoon. Time Spent With Patient Time: Total time managing care of this patient today ____ minutes. Quality Stroke Does the patient have a stroke diagnosis?: No VTE Prior VTE?: No VTE Risk Level:: Medical - moderate - high VTE Device Contraindication: N/A - Device Ordered VTE Drug Contraindication: Treatment Not Indicated
--- NOTE | 2022-03-26 14:32 | P.PNCA_ITS ---
Subjective Subjective Date of Service: 03/26/22 Interval history: Seen and examined at bedside. Currently he is stable. Telemetry showing sinus rhythm first-degree AV block. He is waiting for permanent pacemaker. Physical Exam Vital Signs: Last Vital Signs Temp 98.0 F 03/26/22 10:55 Pulse 68 03/26/22 10:55 Resp 18 03/26/22 10:55 BP 160/88 H 03/26/22 10:55 Pulse Ox 100 03/26/22 10:55 O2 Del Method 03/26/22 10:55 O2 Flow Rate 96 03/25/22 23:07 BMI result Body Mass Index 36.6 GENERAL APPEARANCE: in no acute distress, pleasant. NECK: no carotid bruit, no jugular venous distention. SKIN: no suspicious lesions, warm and dry. HEART: no murmurs, regular rate and rhythm. LUNGS: clear to auscultation bilaterally. ABDOMEN: soft, nontender. EXTREMITIES: no edema. PERIPHERAL PULSES: equal. NEUROLOGIC: No gross deficits, AAO X 3 Objective Labs and Meds 03/25/22 15:16 03/25/22 15:16 Lab results: Laboratory Results - last 24 hr 03/25/22 03/25/22 03/25/22 15:16 15:16 15:16 WBC 11.5 H RBC 3.88 L Hgb 11.0 L Hct 34.5 L MCV 88.9 MCH 28.4 MCHC 31.9 RDW 14.1 Plt Count 203 MPV 10.1 Immature Gran % (Auto) 0.3 Neut % (Auto) 70.9 Lymph % (Auto) 18.9 L [place] % (Auto) 7.6 Eos % (Auto) 1.9 Baso % (Auto) 0.4 Lymph # (Auto) 2.2 [place] # (Auto) 0.9 Eos # (Auto) 0.2 Baso # (Auto) 0.1 Abs Immat Gran (auto) 0.03 Absolute Neuts (auto) 8.2 Absolute Nucleated RBC 0.000 Nucleated RBC % (auto) 0.0 ESR 53 H PT INR APTT Sodium 145 Potassium 4.5 D Chloride 111 H Carbon Dioxide 27 Anion Gap 12 BUN 23 H Creatinine 1.00 Estim Creat Clear Calc 52.7 Estimated GFR > 60 Random Glucose 109 Calcium 8.9 D Total Bilirubin 0.3 AST 34 ALT 28 Alkaline Phosphatase 68 Troponin I High Sens Total Protein 5.6 L Albumin 3.6 COVID-19 (FERMIN) COVID-19 Clin Com Blood Type Antibody Screen 03/25/22 03/25/22 03/26/22 17:31 17:38 06:36 WBC RBC Hgb Hct MCV MCH MCHC RDW Plt Count MPV Immature Gran % (Auto) Neut % (Auto) Lymph % (Auto) [place] % (Auto) Eos % (Auto) Baso % (Auto) Lymph # (Auto) [place] # (Auto) Eos # (Auto) Baso # (Auto) Abs Immat Gran (auto) Absolute Neuts (auto) Absolute Nucleated RBC Nucleated RBC % (auto) ESR PT 15.5 H INR 1.3 H APTT 32.4 D Sodium Potassium Chloride Carbon Dioxide Anion Gap BUN Creatinine Estim Creat Clear Calc Estimated GFR Random Glucose Calcium Total Bilirubin AST ALT Alkaline Phosphatase Troponin I High Sens 9.7 Total Protein Albumin COVID-19 (FERMIN) Negative COVID-19 Clin Com See Note Blood Type Antibody Screen 03/26/22 03/26/22 06:36 06:36 WBC RBC Hgb Hct MCV MCH MCHC RDW Plt Count MPV Immature Gran % (Auto) Neut % (Auto) Lymph % (Auto) [place] % (Auto) Eos % (Auto) Baso % (Auto) Lymph # (Auto) [place] # (Auto) Eos # (Auto) Baso # (Auto) Abs Immat Gran (auto) Absolute Neuts (auto) Absolute Nucleated RBC Nucleated RBC % (auto) ESR PT INR APTT Cancelled Sodium Potassium Chloride Carbon Dioxide Anion Gap BUN Creatinine Estim Creat Clear Calc Estimated GFR Random Glucose Calcium Total Bilirubin AST ALT Alkaline Phosphatase Troponin I High Sens Total Protein Albumin COVID-19 (FERMIN) COVID-19 Clin Com Blood Type A Positive Antibody Screen NEGATIVE Imaging Radiologist's impression: Impressions Shoulder X-Ray 03/25/22 15:44 IMPRESSION: * No acute fracture or dislocation. * Degenerative changes as described. Cervical Spine CT 03/25/22 16:11 IMPRESSION: 1. No acute intracranial pathology. 2. No CT evidence of acute cervical spine fracture or traumatic subluxation Head CT 03/25/22 16:11 IMPRESSION: 1. No acute intracranial pathology. 2. No CT evidence of acute cervical spine fracture or traumatic subluxation Progress Note: A&P Assessment and plan (1) Heart block AV third degree: Status: Acute Plan Pleasant 86 gentleman presenting with left shoulder pain due to arthritis and incidentally found to have complete heart block. He has known history of right bundle-branch block in the past. He was on carvedilol and verapamil. His medications were held interestingly he went back into first-degree AV block. His known history of atrial fibrillation and has been on AV bradley blockers for that indication. He has advanced age and underlying conduction system disease in the form right bundle-branch block. I think given transient complete heart block he should have permanent pacemaker implanted. I think that is the safest approach for this old gentleman. Once PPM is implanted then his home medications should be resumed. Thank you for allowing me to participate in the care of your patient. Please feel free to contact me if you have any questions. Time Spent With Patient Time: Total time managing care of this patient today ____ minutes. Progress Note: Quality Stroke Does the patient have a stroke diagnosis?: No Procedures Date of Service Date of Service: 03/26/22
--- NOTE | 2022-03-26 15:01 | P.CONAN_ITS ---
HPI - Anesthesia Eval Consult details Narrative: 86 year old male with 3 rd degree heart block for pacer implant [facility] Active Problems Active Problems: All Active Problems (Updated 03/25/22 @ 16:12 by Corby Clay MD) Heart block AV third degree (Acute) Brain TIA (Acute) Acute shoulder pain (Acute) Sepsis (Acute) COVID-19 virus infection (Acute) Encephalopathy due to COVID-19 virus (Acute) Fracture of proximal end of right humerus (Acute) Tension headache (Acute) Meningioma (Acute) Chronic daily headache (Acute) First degree atrioventricular block (Acute) Hypertrophic cardiomyopathy (Acute) Meningioma (Acute) Left sided numbness (Acute) Hearing loss (Acute) Pruritus (Acute) Polyarthralgia (Acute) Peripheral vascular disease (Acute) Peripheral neuropathy (Acute) Hypogammaglobulinemia (Acute) Hypertension (Acute) Hypercholesterolemia (Acute) GERD (gastroesophageal reflux disease) (Acute) Diastolic CHF, acute on chronic (Acute) COVID-19 virus infection (Acute) COPD (chronic obstructive pulmonary disease) (Acute) Current use of anticoagulant therapy (Acute) BPH (benign prostatic hyperplasia) (Acute) Anxiety and depression (Acute) Anemia (Acute) Toxic metabolic encephalopathy (Acute) Past Medical History Medical History Acute kidney failure Acute respiratory failure with hypoxia Afib Altered mental status Anemia Anxiety and depression ARDS (adult respiratory distress syndrome) BPH (benign prostatic hyperplasia) Cholecystitis Chronic abdominal pain Constipation COPD (chronic obstructive pulmonary disease) COVID-19 COVID-19 virus infection Current use of anticoagulant therapy Diastolic CHF, acute on chronic Diverticulitis Frequency of micturition GERD (gastroesophageal reflux disease) Headache History of CVA (cerebrovascular accident) History of rib fracture Hypercholesterolemia Hypertension Hypertrophic cardiomyopathy Hypogammaglobulinemia Meningioma Obesity (BMI 30-39.9) Obstructive sleep apnea Paroxysmal atrial fibrillation Peripheral neuropathy Peripheral vascular disease Polyarthralgia Primary osteoarthritis of right knee Protrusion of lumbar intervertebral disc Tear of medial meniscus of knee Urinary incontinence Family History Family History Father No problems noted. Mother Hx of type 1 diabetes mellitus Family history of problems with anesthesia: No Surgical History Surgical History H/O colonoscopy History of left knee replacement History of tonsillectomy History of total right hip replacement History of transurethral resection of prostate History of Problems with Anesthesia: No Social History Social History Household Members: Family Housing: House Housing Other:: Home for the elderly Do you presently have visiting nurse or other home services: Yes Alcohol intake: never Patient Tobacco Use Status: Former Tobacco user Years Smoked: 30 yrs ago Second Hand Smoke Exposure: No Use of substances other than those prescribed or required for medical reasons: No Currently Displaying Signs/Symptoms of Drug Intoxication Withdrawal: No Have you been hit, kicked, punched, or otherwise hurt by someone within the past year? If so, by whom?: No Do you feel safe in your current relationship?: Yes Is there a partner from a previous relationship who is making you feel unsafe now?: No Are you made to feel afraid or neglected: No Advance Directives: Yes Advance Directives on File: Yes Advance Directives Date on File: 04/06/20 Do you have thoughts of harming others: None Do you have a plan to hurt others: No Plan Nutrition Risks: No Nutritional Risk service: No Current occupational status: unemployed and retired Current occupation: Right Handed Meds Allergies Allergy/AdvReac Type Severity Reaction Status Date / Time dabigatran etexilate Allergy Intermediate ITCHING Verified 02/04/22 12:55 [From PRADAXA] JORGE L Inhibitors Allergy Mild UNKNOWN, Verified 02/04/22 12:55 [Jorge L Inhibitors] FOUND IN MEDICAL RECORD 04/[address] GIPSON ezetimibe [From Zetia] Allergy Mild ANAPHYLAXIS Verified 02/04/22 12:55 apixaban [From ELIQUIS] Allergy Unknown UNKNOWN, Verified 02/04/22 12:55 rash rosuvastatin [Crestor] Allergy Unknown myalgia Verified 02/04/22 12:55 Active Medications: Current Medications Acetaminophen (Acetaminophen 325 Mg Tablet) 650 mg PO Q6H PRN PRN Reason: Pain, Mild (Pain Scale 1-3) Last Admin: 03/26/22 06:12 Dose: 650 mg Albuterol Sulfate (Albuterol Sulfate 90 Mcg 8 Gm Inhaler) 2 puff INHALE Q6H PRN PRN Reason: shortness of breath or wheezing Atorvastatin Calcium (Atorvastatin Calcium 80 Mg Tablet) 80 mg PO BEDTIME [facility] Last Admin: 03/25/22 20:37 Dose: 80 mg Docusate Sodium (Docusate Sodium 100 Mg Capsule) 100 mg PO DAILY [facility] Last Admin: 03/26/22 07:49 Dose: Not Given Fluticasone/Vilanterol (Fluticasone/Vilanterol 200/25 Blst.W.Dev) 1 puff INHALE RDAILY [facility] Last Admin: 03/26/22 08:44 Dose: Not Given Lactated Ringer's (Lr) 1,000 mls @ 50 mls/hr IVCONT .Q20H [facility] Last Admin: 03/26/22 08:49 Dose: 50 mls/hr Losartan Potassium (Losartan Potassium 50 Mg Tablet) 100 mg PO DAILY [facility]; Protocol Last Admin: 03/26/22 08:52 Dose: 100 mg Melatonin (Melatonin 3 Mg Tablet) 3 mg PO BEDTIME PRN PRN Reason: Insomnia Ondansetron HCl (Ondansetron Hcl 4 Mg/2 Ml Vial) 4 mg IVPUSH Q8H PRN PRN Reason: Nausea and Vomiting Polyethylene Glycol (Polyethylene Glycol 3350 17 Gm Powd.Pack) 17 gm PO DAILY [facility] Last Admin: 03/26/22 07:49 Dose: Not Given Senna (Sennosides 8.6 Mg Tablet) 8.6 mg PO DAILY PRN PRN Reason: Constipation Simethicone (Simethicone 80 Mg Tab.Chew) 80 mg PO QID PRN PRN Reason: Gas Sodium Chloride (0.9 % Sodium Chloride Flush 3 Ml Syringe) 3 ml IVFLUSH QSHIFT [facility] Last Admin: 03/26/22 08:49 Dose: 3 ml Sucralfate (Sucralfate Oral Suspension 1 Gm/10 Ml Oral.Susp) 1 gm PO BEDTIME [facility] Last Admin: 03/25/22 20:37 Dose: 1 gm Tamsulosin HCl (Tamsulosin Hcl 0.4 Mg Capsule) 0.4 mg PO DAILY [facility] Last Admin: 03/26/22 07:49 Dose: Not Given Home Medications Medication Instructions Recorded Confirmed Last Taken Type atorvastatin 80 mg tablet 80 mg PO BEDTIME 06/03/20 03/25/22 07/09/10 History carvedilol 25 mg tablet 25 mg PO BID 12/04/20 03/25/22 Unknown History potassium chloride 10 mEq 1 tab PO BID 11/14/21 03/25/22 Unknown History tablet,extended release [id number] tablet 1 tab PO DAILY 01/30/22 03/25/22 Unknown History docusate sodium 100 mg capsule 100 mg PO DAILY 03/25/22 03/25/22 Unknown History pantoprazole 40 mg tablet,delayed 40 mg PO DAILY@0630 03/25/22 03/25/22 Unknown History release rivaroxaban 20 mg tablet (Xarelto) 20 mg PO DAILY@1700 03/25/22 03/25/22 Unknown History simethicone 80 mg chewable tablet 80 mg PO QID PRN GAS 03/25/22 03/25/22 Unknown History Exam Exam Date and Time: March 26, 2022 1501 Height,Weight and Vital Signs: Height 5 ft 2 in Weight 90.718 kg Last Vital Signs Temp 98.0 F 03/26/22 10:55 Pulse 68 03/26/22 10:55 Resp 18 03/26/22 10:55 BP 160/88 H 03/26/22 10:55 Pulse Ox 100 03/26/22 10:55 O2 Del Method 03/26/22 10:55 O2 Flow Rate 96 03/25/22 23:07 Pertinent Lab Results Pertinent Lab Results: Laboratory Tests 03/25/22 03/25/22 03/25/22 15:16 15:16 15:16 WBC 11.5 H RBC 3.88 L Hgb 11.0 L Hct 34.5 L MCV 88.9 MCH 28.4 MCHC 31.9 RDW 14.1 Plt Count 203 MPV 10.1 Immature Gran % (Auto) 0.3 Neut % (Auto) 70.9 Lymph % (Auto) 18.9 L [place] % (Auto) 7.6 Eos % (Auto) 1.9 Baso % (Auto) 0.4 Lymph # (Auto) 2.2 [place] # (Auto) 0.9 Eos # (Auto) 0.2 Baso # (Auto) 0.1 Abs Immat Gran (auto) 0.03 Absolute Neuts (auto) 8.2 Absolute Nucleated RBC 0.000 Nucleated RBC % (auto) 0.0 ESR 53 H PT INR APTT Sodium 145 Potassium 4.5 D Chloride 111 H Carbon Dioxide 27 Anion Gap 12 BUN 23 H Creatinine 1.00 Estim Creat Clear Calc 52.7 Estimated GFR > 60 Random Glucose 109 Calcium 8.9 D Total Bilirubin 0.3 AST 34 ALT 28 Alkaline Phosphatase 68 Troponin I High Sens Total Protein 5.6 L Albumin 3.6 COVID-19 (FERMIN) [facility] Blood Type Antibody Screen 03/25/22 03/25/22 03/26/22 17:31 17:38 06:36 WBC RBC Hgb Hct MCV MCH MCHC RDW Plt Count MPV Immature Gran % (Auto) Neut % (Auto) Lymph % (Auto) [place] % (Auto) Eos % (Auto) Baso % (Auto) Lymph # (Auto) [place] # (Auto) Eos # (Auto) Baso # (Auto) Abs Immat Gran (auto) Absolute Neuts (auto) Absolute Nucleated RBC Nucleated RBC % (auto) ESR PT 15.5 H INR 1.3 H APTT 32.4 D Sodium Potassium Chloride Carbon Dioxide Anion Gap BUN Creatinine Estim Creat Clear Calc Estimated GFR Random Glucose Calcium Total Bilirubin AST ALT Alkaline Phosphatase Troponin I High Sens 9.7 Total Protein Albumin COVID-19 (FERMIN) Negative [id number] See Note Blood Type Antibody Screen 03/26/22 03/26/22 06:36 06:36 WBC RBC Hgb Hct MCV MCH MCHC RDW Plt Count MPV Immature Gran % (Auto) Neut % (Auto) Lymph % (Auto) [place] % (Auto) Eos % (Auto) Baso % (Auto) Lymph # (Auto) [place] # (Auto) Eos # (Auto) Baso # (Auto) Abs Immat Gran (auto) Absolute Neuts (auto) Absolute Nucleated RBC Nucleated RBC % (auto) ESR PT INR APTT Cancelled Sodium Potassium Chloride Carbon Dioxide Anion Gap BUN Creatinine Estim Creat Clear Calc Estimated GFR Random Glucose Calcium Total Bilirubin AST ALT Alkaline Phosphatase Troponin I High Sens Total Protein Albumin COVID-19 (FERMIN) [facility] Blood Type A Positive Antibody Screen NEGATIVE Airway Heart: 3 rd degree heart block Lungs: cta Assessment and Plan Assessment Anesthesia Assessment: Anesthesia Plan Discussed and Chart Reviewed Final Anesthetic Review Family History of Problems with Anesthesia: No History of Problems with Anesthesia: No NPO: Yes ASA Class: IV and Emergency Final Preanesthetic Review: No Changes in Pt Med Stat, Meds/Allgs Chart Reviewed, Consent Obtained/Reviewed and Anes Risks/Benef Reviewed Patient Risk: High Procedure Risk: Intermediate Anesthetic Plan Anesthetic Plan: MAC: Disposition: Inp. Admit - Standard Bed
--- NOTE | 2022-03-26 15:24 | PC.NURSE ---
report received from overnight RN, bio medical technician per APR. pt NPO for procedure today, verbal orders to give BP PO meds. BP running high, notified. Safety precautions in place, call [place] within reach, bed alarm on. Pt down for procedure at 1520.
--- NOTE | 2022-03-26 16:06 | MHC.SHP ---
Pre-Procedural Eval Section A Date of Service: 03/26/22 The patient is an INPATIENT: Yes The History & Physical has been completed within 30 days and I have reviewed it.: Yes Section B Chief Complaint: Thrid-degree AV Block Allergies: Allergies Allergy/AdvReac Type Severity Reaction Status Date / Time dabigatran etexilate Allergy Intermediate ITCHING Verified 02/04/22 12:55 [From PRADAXA] JORGE L Inhibitors Allergy Mild UNKNOWN, Verified 02/04/22 12:55 [Jorge L Inhibitors] FOUND IN MEDICAL RECORD 04/[address] GIPSON ezetimibe [From Zetia] Allergy Mild ANAPHYLAXIS Verified 02/04/22 12:55 apixaban [From ELIQUIS] Allergy Unknown UNKNOWN, Verified 02/04/22 12:55 rash rosuvastatin [Crestor] Allergy Unknown myalgia Verified 02/04/22 12:55 Plan I have reviewed the history and physical and performed a pertinent physical examination on my patient. No changes have occurred unless specified.Discussed the risks, benefits, and alternatives of a dual-chamber permanent pacemaker which he understood and agreed to proceed. Plan is to proceed today with dual-chamber pacemaker. He will need to be in the sling for 2 days afterwards and the pacemaker will be tested again in the morning. Time Spent With Patient Time: Total time managing care of this patient today ____ minutes.
--- NOTE | 2022-03-26 16:07 | P.CONGS_ITS ---
History of Present Illness Consult details Consult date: 03/26/22 Requesting physician: Jose F Lee Narrative: 86-year-old gentleman presenting with left shoulder pain due to arthritis and was noticed to have complete heart block.? He has been experiencing some which will changes but denying any dizziness or lightheadedness.? No syncope.? No chest pain or shortness of breath.? He has been on carvedilol and verapamil in the past.? He has been on anticoagulation with previous history of paroxysmal atrial fibrillation.? Currently asymptomatic.? Has known right bundle-branch block and currently has a junctional escape which is quite reliable. Other than above, 12 point review of systems was done and Negative PMFSH Past Medical History Medical History Acute kidney failure Acute respiratory failure with hypoxia Afib Altered mental status Anemia Anxiety and depression ARDS (adult respiratory distress syndrome) BPH (benign prostatic hyperplasia) Cholecystitis Chronic abdominal pain Constipation COPD (chronic obstructive pulmonary disease) COVID-19 COVID-19 virus infection Current use of anticoagulant therapy Diastolic CHF, acute on chronic Diverticulitis Frequency of micturition GERD (gastroesophageal reflux disease) Headache History of CVA (cerebrovascular accident) History of rib fracture Hypercholesterolemia Hypertension Hypertrophic cardiomyopathy Hypogammaglobulinemia Meningioma Obesity (BMI 30-39.9) Obstructive sleep apnea Paroxysmal atrial fibrillation Peripheral neuropathy Peripheral vascular disease Polyarthralgia Primary osteoarthritis of right knee Protrusion of lumbar intervertebral disc Tear of medial meniscus of knee Urinary incontinence Family History Family History Father No problems noted. Mother Hx of type 1 diabetes mellitus Surgical History Surgical History H/O colonoscopy History of left knee replacement History of tonsillectomy History of total right hip replacement History of transurethral resection of prostate Social History Social History Household Members: Family Housing: House Housing Other:: Home for the elderly Do you presently have visiting nurse or other home services: Yes Alcohol intake: never Patient Tobacco Use Status: Former Tobacco user Years Smoked: 30 yrs ago Smoked in Last 30 Days: No Second Hand Smoke Exposure: No Use of substances other than those prescribed or required for medical reasons: No Currently Displaying Signs/Symptoms of Drug Intoxication Withdrawal: No Have you been hit, kicked, punched, or otherwise hurt by someone within the past year? 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 GIPSON ezetimibe [From Zetia] Allergy Mild ANAPHYLAXIS Verified 02/04/22 12:55 apixaban [From ELIQUIS] Allergy Unknown UNKNOWN, Verified 02/04/22 12:55 rash rosuvastatin [Crestor] Allergy Unknown myalgia Verified 02/04/22 12:55 Active Medications: Current Medications Acetaminophen (Acetaminophen 325 Mg Tablet) 650 mg PO Q6H PRN PRN Reason: Pain, Mild (Pain Scale 1-3) Last Admin: 03/26/22 06:12 Dose: 650 mg Albuterol Sulfate (Albuterol Sulfate 90 Mcg 8 Gm Inhaler) 2 puff INHALE Q6H PRN PRN Reason: shortness of breath or wheezing Atorvastatin Calcium (Atorvastatin Calcium 80 Mg Tablet) 80 mg PO BEDTIME [facility] Last Admin: 03/25/22 20:37 Dose: 80 mg Docusate Sodium (Docusate Sodium 100 Mg Capsule) 100 mg PO DAILY [facility] Last Admin: 03/26/22 07:49 Dose: Not Given Fluticasone/Vilanterol (Fluticasone/Vilanterol 200/25 Blst.W.Dev) 1 puff INHALE RDAILY [facility] Last Admin: 03/26/22 08:44 Dose: Not Given Lactated Ringer's (Lr) 1,000 mls @ 50 mls/hr IVCONT .Q20H [facility] Last Admin: 03/26/22 08:49 Dose: 50 mls/hr Losartan Potassium (Losartan Potassium 50 Mg Tablet) 100 mg PO DAILY [facility]; Protocol Last Admin: 03/26/22 08:52 Dose: 100 mg Melatonin (Melatonin 3 Mg Tablet) 3 mg PO BEDTIME PRN PRN Reason: Insomnia Ondansetron HCl (Ondansetron Hcl 4 Mg/2 Ml Vial) 4 mg IVPUSH Q8H PRN PRN Reason: Nausea and Vomiting Polyethylene Glycol (Polyethylene Glycol 3350 17 Gm Powd.Pack) 17 gm PO DAILY [facility] Last Admin: 03/26/22 07:49 Dose: Not Given Senna (Sennosides 8.6 Mg Tablet) 8.6 mg PO DAILY PRN PRN Reason: Constipation Simethicone (Simethicone 80 Mg Tab.Chew) 80 mg PO QID PRN PRN Reason: Gas Sodium Chloride (0.9 % Sodium Chloride Flush 3 Ml Syringe) 3 ml IVFLUSH QSHIFT [facility] Last Admin: 03/26/22 15:27 Dose: Not Given Sucralfate (Sucralfate Oral Suspension 1 Gm/10 Ml Oral.Susp) 1 gm PO BEDTIME [facility] Last Admin: 03/25/22 20:37 Dose: 1 gm Tamsulosin HCl (Tamsulosin Hcl 0.4 Mg Capsule) 0.4 mg PO DAILY [facility] Last Admin: 03/26/22 07:49 Dose: Not Given Home Medications Medication Instructions Recorded Confirmed Last Taken Type atorvastatin 80 mg tablet 80 mg PO BEDTIME 06/03/20 03/25/22 07/09/10 History carvedilol 25 mg tablet 25 mg PO BID 12/04/20 03/25/22 Unknown History potassium chloride 10 mEq 1 tab PO BID 11/14/21 03/25/22 Unknown History tablet,extended release nifpcxwxpvnb-aqoialeg-vesbxn tablet 1 tab PO DAILY 01/30/22 03/25/22 Unknown History docusate sodium 100 mg capsule 100 mg PO DAILY 03/25/22 03/25/22 Unknown History pantoprazole 40 mg tablet,delayed 40 mg PO DAILY@0630 03/25/22 03/25/22 Unknown History release rivaroxaban 20 mg tablet (Xarelto) 20 mg PO DAILY@1700 03/25/22 03/25/22 Unknown History simethicone 80 mg chewable tablet 80 mg PO QID PRN GAS 03/25/22 03/25/22 Unknown History Physical Exam Vital Signs: Vital Signs: Last Vital Signs Temp 98.4 F 03/26/22 15:39 Pulse 83 03/26/22 15:39 Resp 18 03/26/22 15:39 BP 187/88 H 03/26/22 15:39 Pulse Ox 98 03/26/22 15:39 O2 Del Method 03/26/22 15:39 O2 Flow Rate 96 03/25/22 23:07 BMI result Body Mass Index 36.6 General: No acute distress HEENT: Moist mucous membranes, normocephalic, pupils equal round and reactive to light. Neck: No thyromegaly, supple, no JVD Lymph: No cervical, supraclavicular, or other lymphadenopathy Chest: No chest wall abnormalities or deformities Heart: Regular rate and rhythm Lungs: Clear to auscultation bilaterally Abdomen: Soft, nontender, normal bowel sounds Extremities: No edema, cyanosis, or clubbing. Full range of motion Neuro: Grossly intact, alert and oriented x3, and nonfocal Skin: Warm and dry no rashes Affect: Normal Results Labs 03/25/22 15:16 03/25/22 15:16 Labs: Abnormal lab results 03/26/22 Range/Units 06:36 PT 15.5 H (10.0-13.1) SEC INR 1.3 H (0.9-1.1) All other labs normal. Imaging Chest x-ray: report reviewed and image reviewed EKG: report reviewed and image reviewed Assessment and Plan (1) Heart block AV third degree: Status: Acute Plan 86-year-old male with multiple medical comorbidities who presents in complete heart block with a junctional escape rhythm. I do agree dual-chamber permanent pacemaker is indicated and I did discussion with him about the pacemaker in general and the risks, benefits, and alternatives. We also discussed the postprocedure recovery and restrictions. Plan is to move forward with dual- chamber permanent pacemaker today as he has been NPO. He has not taken Xar elto for 2 days now. the pacemaker will be tested again in the morning. Time Spent With Patient Time: Total time managing care of this patient today ____ minutes. Procedures Date of Service Date of Service: 03/26/22
--- NOTE | 2022-03-26 16:14 | PC.NURSE ---
PIV #[id number] INSERTED WITH U/S BY DR. HILLMAN AND TEAM
--- NOTE | 2022-03-26 18:08 | P.OP_ITS ---
Operative Note Operative Note Date of Service: 03/26/22 Narrative: Preoperative diagnosis: Complete heart block Postoperative diagnosis: Same Operation: Placement of dual-chamber permanent pacemaker with fluoroscopic guidance Surgeon: Chin Handley MD Specimens: None EBL: 5 cc Operative findings: The pacemaker placed was a Medtronic serial [id number]. The atrial lead was a Medtronic serial [id number]. The ventricular lead was a Medtronic [id number]. Parameters in the right atrial lead sensing was 2.8 with impedance of 646 Ohms with a threshold of 0.75 at 0.7 milliseconds. In the ventricular lead threshold was 0.5 volts at 0.4 milliseconds with an impedance of 684 Ohms and R-wave of 13 mV. Patient tolerated procedure well. Operation in detail: The patient was brought to the operating room, placed supine on the operating room table, anesthesia moderate of ices were placed, and the patient was gently sedated. A time-out was performed confirming the correct patient site and procedure. After injection of local anesthetic, a 3 cm incision was made in the left infraclavicular region and carried down to the pectoralis fascia with electrocautery. The patient was then placed in Trendelenburg and an 18 gauge needle was used to access subclavian vein on the 1st take. And a wire was placed into the right atrium under fluoroscopic guidance. A 2nd 18 gauge needle was then used to access the subclavian vein again on the 1st ache and a wire was placed under fluoroscopic guidance and parked in the right atrium. The patient was then taken out of Trendelenburg and a pocket was formed using blunt and electrocautery dissection. The 1st 6 [place] sheath was then placed over wire and the wire and dilator were removed. The ventricular lead was then placed through the sheath and parked in the right atrium and the peel-away sheath was removed. After several attempts using a curved stylet we were eventually able to access the right ventricle and the tip of the lead was positioned at the right ventricular apex. The endocardial screw was deployed and the lead was tested with excellent parameters above. This lead was then secured with silk sutures to the pectoralis fascia. The 2nd 6 [place] sheath was then placed over the 2nd wire and a wire dilator removed. The atrial lead was then placed and parked in the right atrium. AJ stylet was used to position this in the right atrial appendage. The endocardial screws deployed and the lead was tested with excellent parameters above. This lead was also secured with silk sutures to the pectoralis fascia. The pocket was then copiously irrigated with antibiotic solution. The leads were then placed in their appropriate receptacles and the pacemaker was tested again with excellent parameters. The generator and excess lead was then placed into the pocket. The wound was then closed with a deep running 3-0 Vicryl suture followed by running 3-0 Vicryl suture and Dermabond glue in the skin. The patient was then brought back to the recovery room in stable condition.
[2022-03-26] MEDS: Sucralfate Oral Suspension 1 GM/10 ML ORAL.SUSP PO (20:36)
[2022-03-26] MEDS: Atorvastatin Calcium 80 MG TABLET PO (20:36)
[2022-03-26] MEDS: Melatonin 3 MG TABLET PO (23:07)
[2022-03-27] MEDS: 0.9 % Sodium Chloride Flush 3 ML SYRINGE IVFLUSH (01:06)
[2022-03-27] MEDS: Acetaminophen 325 MG TABLET 650 MG PO (02:21)
[2022-03-27 04:00] VITALS: BP 192/88; PULSE 75; RESP 20; TEMP 37.1; O2SAT 99
[2022-03-27 04:21] VITALS: BP 188/64
[2022-03-27] MEDS: Lactated Ringers 1,000 ML 50 ML IVCONT (04:46)
[2022-03-27] MEDS: Losartan Potassium 50 MG TABLET 100 MG PO ×2 (04:46→07:46)
--- NOTE | 2022-03-27 04:56 | PC.NURSE ---
03/27/22 0427: Notified MD of PT manual BP 188/64 informed MD pt BP meds were held 03/27/22 for placement of PACEMAKER MD respond to give Losartan 100mg prior to 0900.
[2022-03-27 07:24] VITALS: BP 182/70; PULSE 67; RESP 20; TEMP 36.5; O2SAT 97
[2022-03-27] MEDS: Tamsulosin HCL 0.4 MG CAPSULE PO (07:45)
[2022-03-27] MEDS: Docusate Sodium 100 MG CAPSULE PO (07:46)
[2022-03-27] MEDS: polyethylene glycoL 3350 17 GM POWD.PACK PO (07:46)
[2022-03-27] MEDS: carvediloL 25 MG TABLET PO (09:29)
[2022-03-27] MEDS: Furosemide 40 MG TABLET PO (09:29)
[2022-03-27] MEDS: VerapamiL HCL SR 180 MG TABLET.ER PO (09:29)
[2022-03-27 11:00] VITALS: BP 128/60; PULSE 64; RESP 20; TEMP 36.2; O2SAT 98
--- NOTE | 2022-03-27 11:14 | P.DS_ITS ---
DS: Providers Provider Date of Service: 03/27/22 Date of admission: 03/25/22 17:19 Primary care physician: Arti Catalan NP Consults: 03/25/22 17:20 Consult to Thoracic Surgery Routine Consulting Provider: Chin Handley Reason for consultation: Complete heart block. needs pacemaker 03/26/22 08:05 Consult to Cardiology Routine Consulting Provider: Jose F Lee Reason for consultation: heart block Has provider been notified: Yes DS: Diagnosis Discharge Diagnosis (1) Heart block AV third degree: Status: Acute DS: Summary Hospital Course Hospital Course: Date of Service: 03/25/22 Attending physician on admission: Lul Castro Chief Complaint: Blurry vision 86-year-old gentleman with past medical history significant for hypertension, paroxysmal atrial fibrillation on Xarelto, history of chronic diastolic heart failure,, anxiety depression, recent hospitalization to [facility] in January with TIA presented to [facility] due to multiple complaints as per patient for last 2 weeks he is having intermittent lightheadedness, dizziness, and left shoulder discomfort, that he described as worse with movement ,that started after he closed his shower curtain, pain radiates to left side of his neck, but what brought him to hospital today was pressure in head since yesterday, associated with blurry vision, yesterday at 09:30 patient was watching TV and suddenly lost his vision that lasted for 30 minutes, later vision returned, same thing happened again this morning without associated weakness, numbness, no associated chest pain, no palpitation no syncope or near syncope, workup in ER showed degenerative changes of shoulder x-ray, otherwise no acute abnormality sed rate was 53, CT head showed no acute intracranial pathology, CT cervical spine showed no acute cervical spine fractures, or traumatic subluxation, and EKG showed third-degree heart block therefore patient is being admitted to [facility] for continued monitoring treatment and pacemaker placement. Hospital course 86-year-old gentleman with past medical history of prior CVA, paroxysmal atrial fibrillation on Xarelto, hypertension, GERD, hyperlipidemia, benign prostate hyperplasia presented to emergency room due to symptoms of lightheadedness and dizziness of 2 weeks duration as well as left shoulder pain, since 2 days prior to presentation had 2 episodes of loss of vision lasting for 30 minutes that prompted him to come to the hospital, patient EKG showed third-degree block with junctional escape rhythm, therefore patient admitted to telemetry unit, aspirin Xarelto verapamil and Coreg were held patient underwent pacemaker placement by Dr. Ruiz on March 26 postprocedure pacer interrogated and is good therefore being discharged home with outpatient follow-up with Dr. Ruiz in 2 weeks. In regard to paroxysmal atrial fibrillation patient has been restarted back on home medications Xarelto, Coreg and verapamil. Essential hypertension BP noted to be elevated since home meds were held prior to procedure, hold home medications have been resume blood pressure improved recommend to continue all medications as before. Left shoulder pain likely musculoskeletal, improved use Tylenol as needed BPH continue Flomax COPD no acute exacerbation, continue home inhalers Hyperlipidemia continue statins Time Spent with Patient Time attestation: Total time managing care of this patient today ____ minutes. Discharge coordination time: Greater than 30 minutes Quality: Safe Use of Opioids Does Pt have an Active Cancer Diagnosis on the Problem List?: No Quality: Stroke Does the patient have a stroke diagnosis?: No Physical Exam Vital Signs: Vital Signs: Last Vital Signs Temp 97.2 F 03/27/22 11:00 Pulse 64 03/27/22 11:00 Resp 20 03/27/22 11:00 BP 128/60 03/27/22 11:00 Pulse Ox 98 03/27/22 11:00 O2 Del Method 03/27/22 11:00 O2 Flow Rate 2 03/26/22 18:47 BMI result Body Mass Index 36.6 Const: Other: General? resting c omfortably in no a cute distress.? Le ft anterior chest wall well-healed p acemaker scar left arm in sling Neck ? no JVD. CVS? reg ular rate rhythm, Respiratory lungs clear to auscultat ion, no respirator y distress, no whe chino, no rhonchi. G astrointestinal ab domen soft, non te nder, bowel sounds audible, Extremit ies no edema. Neur o non focal , spee ch clear. Skin no rash Psych appropr iate affect DS: Data Data Completed and Pending Completed studies during hospitalization [Text1]: Procedures Insertion of Endotracheal Airway into Trachea, Via Natural or Artificial Opening Endoscopic (04/01/20) Insertion of Infusion Device into Superior Vena Cava, Percutaneous Approach (04/01/20) Introduction of Remdesivir Anti-infective into Peripheral Vein, Percutaneous Approach, [employer] (04/01/20) Respiratory Ventilation, Greater than 96 Consecutive Hours (04/01/20) Transfusion of Convalescent Plasma (Nonautologous) into Peripheral Vein, Percutaneous Approach, [employer] 5 (04/01/20) Ultrasonography of Superior Vena Cava, Guidance (04/01/20) Discharge Plan Discharge Anticipated Discharge Date/Time: 03/27/22 11:09 Patient Disposition: Home, Self-Care Discharge Diagnosis: Third-degree AV block Referrals: Arti Catalan NP [Primary Care Provider] - 1 Week Chin Handley MD [Physician] - 04/11/22 10:30 am Discharge Medications: Continued Breo Ellipta 200-25 mcg/dose blister with device 1 ea inhalation DAILY Qty: 60 2RF furosemide 40 mg tablet 40 mg PO DAILY Qty: 90 1RF tamsulosin 0.4 mg capsule 0.4 mg PO DAILY 90 Days Qty: 90 3RF verapamil 180 mg capsule,ext rel. pellets 24 hr 180 mg PO DAILY Qty: 90 3RF losartan 100 mg tablet 100 mg PO DAILY Qty: 90 0RF sennosides [Senokot] 8.6 mg tablet 8.6 mg PO DAILY PRN (Reason: Constipation) Qty: 90 1RF polyethylene glycol 3350 [Miralax] 17 gram/dose powder 17 g PO DAILY Qty: 510 2RF atorvastatin 80 mg tablet 80 mg PO BEDTIME potassium chloride 10 mEq tablet extended release 1 tab PO BID albuterol sulfate [Ventolin HFA] 90 mcg/actuation HFA aerosol inhaler 2 puff inhalation Q6H PRN (Reason: shortness of breath or wheezing) Qty: 8.5 0RF simethicone 80 mg tablet,chewable 80 mg PO QID PRN (Reason: GAS) pantoprazole 40 mg tablet,delayed release (DR/EC) 40 mg PO DAILY@0630 docusate sodium 100 mg capsule 100 mg PO DAILY Xarelto 20 mg tablet 20 mg PO DAILY@1700 dxtrwbawmmza-jwbqtzro-xsnzmi Tablet 1 tab PO DAILY aspirin 81 mg capsule 81 mg PO DAILY Qty: 30 0RF carvedilol 25 mg tablet 25 mg PO BID sucralfate 100 mg/mL suspension 10 ml PO BEDTIME Qty: 400 3RF Discharge Orders: Discharge Order (Routine); Ordered 03/27/22 Ordered By: Lul Castro Diet: Advance to usual diet Activity on Discharge: As tolerated Stand Alone Forms: Patient Portal Discharge page Activity Restrictions/Additional Instructions: ACTIVITY: * ARM MOVEMENT RESTRICTIONS: No lifting your left arm over your head or behind your back, no pushing/pulling/lifting anything >10lb with your left arm for 6- 8 weeks. This ensures the pacemaker wires stay in place and do not get pulled out accidentally. Make sure you are doing gentle range of motion exercises with the left arm (such as pendulum exercise) to make sure your elbow and shoulder do not get frozen up. * ARM SLING: Keep the sling on until 03/28/22. You may then take the sling off and leave it off. HOWEVER, if you are noticing a difficulty limiting your left arm movement (as outline above) then wear your sling during the day to make sure you are adhering to the restrictions above. * Ask your doctor when you can expect to return to work. * You can still exercise. It is good for your body and your heart. Talk with your doctor about an exercise plan. INCISION CARE: * If there is a dressing on the incision you can remove that on 03/28/22 and leave it open to air. * You may shower starting 03/28/22. Sponge bathe only until then. * Do not submerge yourself in water (baths, pools, etc.) for 2 weeks. * Monitor the incision for increased redness, swelling, bruising, pain, open area, or drainage. OTHER PRECAUTIONS: * Before you receive any treatment, tell all healthcare providers (including your dentist) that you have a pacemaker. * You will be given an ID card that contains information about your pacemaker. Always carry this card with you. You can show this card if your pacemaker sets off a metal detector. You should also show it to avoid screening with a hand-held security wand. * Keep your cell phone away from your pacemaker. Do not carry the phone in your shirt pocket, even it if is turned off. * Avoid strong magnets. Examples are those used in MRI's or in hand-held security wands. * Avoid strong electrical leung. Examples are those made by radio transmitting towers, [employer] radios, and heavy-duty electrical equipment. * Avoid leaning over the open arreaga of a running car. A running engine creates an electrical field. Most household and yard appliances will not cause any problems. If you use any large power tools, such as an industrial research and development specialist, talk with your doctor. WHEN TO CALL YOUR DOCTOR: Call your doctor immediately if you have any of the following: * Dizziness * Chest pain * Lack of energy * Fainting spells * Twitching chest muscles * Rapid pule or pounding heartbeat * Shortness of breath * Pain around your pacemaker * Fever above 100.4 F (38 C) or other signs of infection (redness, swelling, drainage, or warmth at the incision site). * Hiccups that will not stop FOLLOWUP APPOINTMENTS: * You have an appointment with Dr. Handley at the [facility] office on March 11 @ 10:30am for a postop appointment and pacemaker check. [facility] 1st floor, next to the main entrance * Call your thread machine operator to make an appointment for the next couple weeks. Make regular follow-up appointments with your doctor. He or she will check the pacemaker to make sure it is working properly. Care Plan Goals: Follow post pacemaker instructions as above Health Concerns: Resume all home medications Plan of Treatment: Outpatient follow-up with Dr. Ruiz on March 11 as above, follow-up with primary care physician call for appointment Assessment: As above
--- NOTE | 2022-03-27 11:29 | MHC.CM.PN ---
Patient has been medically cleared for dc to home today self care. Last IMM addressed yesterday.
--- NOTE | 2022-03-27 12:53 | PM.PNCARD ---
Subjective Subjective Date of Service: 03/27/22 Interval history: Seen examined at bedside. Status post pacemaker. Doing well. His blood pressure is elevated and his home medications are being resumed today. Physical Exam Vital Signs: Last Vital Signs Temp 97.2 F 03/27/22 11:00 Pulse 64 03/27/22 11:00 Resp 20 03/27/22 11:00 BP 128/60 03/27/22 11:00 Pulse Ox 98 03/27/22 11:00 O2 Del Method 03/27/22 11:00 O2 Flow Rate 2 03/26/22 18:47 BMI result Body Mass Index 36.6 GENERAL APPEARANCE: in no acute distress, pleasant. NECK: no carotid bruit, no jugular venous distention. SKIN: no suspicious lesions, warm and dry. Left chest wall pacemaker site looks stable. No obvious hematoma. HEART: Systolic murmur left sternal border, regular rate and rhythm. LUNGS: clear to auscultation bilaterally. ABDOMEN: soft, nontender. EXTREMITIES: no edema. PERIPHERAL PULSES: equal. NEUROLOGIC: No gross deficits, AAO X 3 Objective Labs and Meds 03/25/22 15:16 03/25/22 15:16 Imaging Radiologist's impression: Impressions Guidance Fluoroscopy 03/26/22 17:56 IMPRESSION: Fluoroscopy for pacemaker placement. Chest X-Ray 03/26/22 18:20 IMPRESSION: 1. Dual mural pacer electrodes in right atrium and right ventricle. 2. Mild cardiomegaly. Slight prominent pulmonary vascularity suggestive mild congestion 3. No acute pneumonic process seen. Progress Note: A&P Assessment and plan (1) Heart block AV third degree: Status: Acute (2) Hypertrophic cardiomyopathy: Status: Acute Plan Pleasant 86-year-old gentleman with history of hypertrophic cardiomyopathy presenting with complete heart block. He is now status post pacemaker placement. His blood pressure is elevated and I think his home medications including carvedilol and verapamil should be resumed. Continue the medications as before. As his BP improved with medications he can return home. Pacemaker was interrogated and is functioning fine. Thank you for allowing me to participate in the care of your patient. Please feel free to contact me if you have any questions. Time Spent With Patient Time: Total time managing care of this patient today ____ minutes. Progress Note: Quality Stroke Does the patient have a stroke diagnosis?: No Procedures Date of Service Date of Service: 03/27/22
--- NOTE | 2022-03-27 15:32 | HO.POSTANES ---
Post Anesthesia Evaluation Post Anesthesia Evaluation Vital Signs: Vital Signs Temp Pulse Resp BP Pulse Ox O2 Del Method 03/27/22 11:00 97.2 F 64 20 128/60 98 Room Air 03/27/22 07:24 97.7 F 67 20 182/70 H 97 Room Air 03/27/22 04:21 188/64 H 03/27/22 04:00 98.8 F 75 20 192/88 H 99 Room Air Anesthesia: Monitored Mental Status: Awake Pain Control: Satisfactory Nausea/Vomiting: None Hydration: Adequate Anesthesia-Related Issues: No Anes. Related Issues
== END 2022-03-27 15:25 | disposition home or self-care (01) | DRG 243 ==
LOC: HO.ED 17:19 → HO.EDOVER 17:32 → HO.IMC 18:11
PROVIDERS: Physician Assistant; Surgery; Admitting Provider Hospitalist; Emergency Provider Emergency Medicine; PCP Registered Nurse; Visit Provider Hospitalist
PROC: 0JH606Z Insertion of Pacemaker, Dual Chamber into Chest Subcutaneous Tissue and Fascia, Open Approach (ICD-10-PCS; principal; 2022-03-26 14:30)
DX: I44.2 Atrioventricular block, complete (principal); I42.2 Other hypertrophic cardiomyopathy; I50.32 Chronic diastolic (congestive) heart failure; I11.0 Hypertensive heart disease with heart failure; G47.33 Obstructive sleep apnea (adult) (pediatric); N40.0 Benign prostatic hyperplasia without lower urinary tract symptoms; J44.9 Chronic obstructive pulmonary disease, unspecified; I48.0 Paroxysmal atrial fibrillation; E78.5 Hyperlipidemia, unspecified; Z20.822 Contact with and (suspected) exposure to COVID-19; Z86.73 Personal history of transient ischemic attack (TIA), and cerebral infarction without residual deficits; Z87.891 Personal history of nicotine dependence; Z88.8 Allergy status to other drugs, medicaments and biological substances; Z79.01 Long term (current) use of anticoagulants; Z79.51 Long term (current) use of inhaled steroids; Z79.82 Long term (current) use of aspirin; Z79.899 Other long term (current) drug therapy
CPT/HCPCS: 36415; 70450; 71045; 72125; 73030; 80053; 84484; 85025; 85610; 85652; 85730; 86850; 86900; 86901; 87635; 93005; 99285; C1785; C1892; C1898; J0131; J0690; J1100; J2405; J2795; J3010; J3370

== ENCOUNTER → 2022-04-11 10:06 | Outpatient (BNVA) | payer OTHER, SELFPAY | PROVIDERS: PCP Registered Nurse; Visit Provider Surgery | DX: Z13.89 Encounter for screening for other disorder (principal) ==

== ENCOUNTER → 2022-05-23 11:14 | Outpatient (BNVA) | payer OTHER, SELFPAY | PROVIDERS: PCP Internal Medicine; Visit Provider Nurse Practitioner Family | DX: K21.9 Gastro-esophageal reflux disease without esophagitis (principal); K59.04 Chronic idiopathic constipation; K57.90 Diverticulosis of intestine, part unspecified, without perforation or abscess without bleeding | CPT/HCPCS: 99212 ==

== ENCOUNTER → 2022-06-04 14:17 | Outpatient (BNVA) | payer OTHER, SELFPAY | PROVIDERS: PCP Registered Nurse; Visit Provider Internal Medicine | DX: I42.2 Other hypertrophic cardiomyopathy (principal); I48.0 Paroxysmal atrial fibrillation; I44.2 Atrioventricular block, complete; I10 Essential (primary) hypertension; G47.33 Obstructive sleep apnea (adult) (pediatric) | CPT/HCPCS: 99212 ==

== ENCOUNTER 2022-06-24 11:22 | Inpatient (IN) | payer OTHER, SELFPAY ==
--- NOTE | ~2022-06-24 | CT_ITS ---
EXAMINATION: CT ABDOMEN AND PELVIS WITHOUT CONTRAST CLINICAL INFORMATION: abd pain r/o perforated viscus hx of diverticular COMPARISON: CT abdomen pelvis 03/01/2022 TECHNIQUE: Multidetector volumetric imaging was performed from the superior aspect of the liver through the pubic symphysis. Sagittal and coronal reformatted images were obtained on the technologist's workstation. This CT examination was performed using dose optimization techniques as appropriate, variously including the following: *Automated exposure control *Adjustment of mA and/or kV according to patient size (this includes techniques or standardized protocols for targeted exams where dose is matched to indication/reason for exam; i.e. extremities or head) *Use of iterative reconstruction technique DLP: 809 mGy-cm FINDINGS: LUNG BASES: Pacemaker leads within the heart. Fine reticular opacities at both lung bases. No focal consolidation. No pleural effusion. LIVER, GALLBLADDER, AND BILIARY TREE: The liver is normal in size, shape, and attenuation. No focal hepatic lesion or biliary ductal dilatation is present. The gallbladder is unremarkable with no evidence of radiopaque gallstones, gallbladder wall thickening, or obvious pericholecystic inflammatory changes. PANCREAS: Unremarkable. SPLEEN: Unremarkable. ADRENAL GLANDS: Unremarkable. KIDNEYS AND URETERS: The kidneys are normal in size, shape, and attenuation. No hydronephrosis, hydroureter, or calculi seen. No perinephric stranding. BLADDER: Unremarkable. GASTROINTESTINAL TRACT: There are numerous diverticula throughout the colon. The diverticula are most numerous at the distal descending and proximal sigmoid colon. Redemonstration of an area of mild bowel wall thickening and pericolonic edema suggesting a mild diverticulitis. The appearance is unchanged since prior CAT scan 03/01/2022. There is no evidence of bowel perforation. No abscess. There is no bowel obstruction. There is a moderate volume of stool in the colon. The appendix is nonvisualized . No edema in the mesentery in the right lower quadrant. The small bowel loops are unremarkable. The stomach is normal. There is small hiatal hernia. ABDOMINAL WALL: Small fat-containing umbilical hernia. LYMPH NODES: Normal. VASCULAR: Vascular calcifications throughout the abdomen and pelvis. There is no aneurysm. PELVIC VISCERA: Unremarkable. OSSEOUS STRUCTURES: Multilevel degenerative spondylosis spine. Grade 1 anterolisthesis of L5 on S1. Bilateral spondylolysis L5 pars interarticularis. Status post right replacement. CT/CT abdomen pelvis wo IV con IMPRESSION: Marked diverticulosis of the colon. There is a mild diverticulitis of the distal descending colon and proximal sigmoid colon similar to prior CAT scan 03/01/2022. No evidence of bowel perforation or abscess. Fleischner guidelines were followed.
[2022-06-24 11:41] VITALS: BP 140/62; BP 140/65; PULSE 60; RESP 16; TEMP 36.8; O2SAT 98; O2SAT 99; BMI 36.6
[2022-06-24 11:50] VITALS: RESP 16
--- NOTE | 2022-06-24 11:54 | PC.NURSE ---
Pt on stretcher, airway open and patent, no difficulty/labored breathing, no obvious distress, equal chest rise and fall. Pt a&ox4, skin normal for ethnicity, warm, and dry. Lung sounds clr and equal bilaterally. Heart sounds normal. Bowel sounds present and active all leung, abdomen soft, and tender. Pt rates pain 6/10. Pt hx diverticulitis, pt reports that his last flare up was 3 years ago and this feels similar.
--- NOTE | 2022-06-24 12:01 | ED.ABDPAIN ---
HPI - Abdominal Pain General Chief Complaint: Abdominal Pain Stated Complaint: L side abd pain per ems Time Seen by Provider: 06/24/22 11:26 Source: patient and EMS Mode of arrival: EMS Limitations: no limitations History of Present Illness HPI narrative: 86-year-old male came in for evaluation of abdominal pain. Past medical history significant for HTN, paroxysmal AFib on Xarelto, chronic diastolic heart failure, anxiety, depression, diverticular disease. Abdominal pain started since last night localized to the left side of the lower abdomen unit was described as a sharp pain started as 10/10 now it is about 6/10, no nausea, no vomiting, normal bowel movement this morning, no dysuria, no frequency urination, no hematuria. No past surgical abdominal history. Related Data Home Medications Medication Instructions Recorded Confirmed atorvastatin 80 mg tablet 80 mg PO BEDTIME 06/03/20 06/04/22 carvedilol 25 mg tablet 25 mg PO BID 12/04/20 06/04/22 potassium chloride 10 mEq 1 tab PO BID 11/14/21 06/04/22 tablet,extended release vgjzfzkzsuyi-arvbmwuh-kfvurv tablet 1 tab PO DAILY 01/30/22 06/04/22 docusate sodium 100 mg capsule 100 mg PO DAILY 03/25/22 06/04/22 pantoprazole 40 mg tablet,delayed 40 mg PO DAILY@0630 03/25/22 06/04/22 release rivaroxaban 20 mg tablet (Xarelto) 20 mg PO DAILY@1700 03/25/22 06/04/22 Previous Rx's Medication Instructions Recorded fluticasone furoate 200 1 ea inhalation DAILY #60 ea 07/05/20 mcg-vilanterol 25 mcg/dose inhalation powder (Breo Ellipta) tamsulosin 0.4 mg capsule 0.4 mg PO DAILY 90 days #90 caps 03/29/21 verapamil 180 mg 24 hr 180 mg PO DAILY #90 caps 03/29/21 capsule,extended release losartan 100 mg tablet 100 mg PO DAILY #90 tabs 07/02/21 albuterol sulfate 90 mcg/actuation 2 puff inhalation Q6H PRN 11/16/21 aerosol inhaler (Ventolin HFA) shortness of breath or wheezing #8.5 grams aspirin 81 mg capsule 81 mg PO DAILY #30 caps 01/31/22 sucralfate 100 mg/mL oral 10 ml PO BEDTIME #400 mL 02/04/22 suspension sennosides 8.6 mg tablet (Senokot) 8.6 mg PO DAILY PRN Constipation 03/11/22 #90 tabs furosemide 20 mg tablet 20 mg PO .PRN #7 tabs 06/16/22 furosemide 40 mg tablet 40 mg PO DAILY #90 tabs 06/16/22 Allergies Allergy/AdvReac Type Severity Reaction Status Date / Time ezetimibe [From Zetia] Allergy Severe Anaphylaxis Verified 06/04/22 14:23 dabigatran etexilate Allergy Intermediate ITCHING Verified 06/04/22 14:23 [From PRADAXA] JORGE L Inhibitors Allergy Mild UNKNOWN, Verified 06/04/22 14:23 [Jorge L Inhibitors] FOUND IN MEDICAL RECORD 04/[address] GIPSON apixaban [From ELIQUIS] Allergy Unknown Rash Verified 06/04/22 14:23 rosuvastatin [Crestor] Allergy Unknown myalgia Verified 06/04/22 14:23 Review of Systems Review of Systems All other systems are reviewed and are negative Constitutional: Reports as per HPI and Reports no additional constitutional complaints Eyes: Reports as per HPI and Reports no additional eye complaints Reports system reviewed and no additional complaints, except as documented Cardiovascular: Reports as per HPI and Reports no additional cardiovascular complaints Respiratory: Reports as per HPI and Reports no additional respiratory complaints Gastrointestinal: Reports as per HPI and Reports no additional gastrointestinal complaints Genitourinary: Reports no additional female genitourinary complaints Musculoskeletal: Reports no additional musculoskeletal complaints Skin/Breast: Reports system reviewed and no additional complaints, except as docu Psychiatric: Reports no additional psychiatric complaints Endocrine: Reports no additional endocrine complaints Hematologic/Lymphatic: Reports no additional hematologic/lymphatic complaints Allergic/Immunologic: Reports no additional allergic/immunologic complaints Reports system reviewed and no additional complaints, except as documented and Reports Abnormal speech present [facility] Past Medical History Medical History Anemia Anxiety and depression BPH (benign prostatic hyperplasia) Chronic abdominal pain Constipation COPD (chronic obstructive pulmonary disease) Current use of anticoagulant therapy Diastolic CHF, acute on chronic Diverticulitis Frequency of micturition GERD (gastroesophageal reflux disease) Hearing loss History of COVID-19 History of CVA (cerebrovascular accident) (~2018) History of rib fracture History of TIA (transient ischemic attack) (~2021) Hypercholesterolemia Hypertension Hypertrophic cardiomyopathy Hypogammaglobulinemia Meningioma Obesity (BMI 30-39.9) Obstructive sleep apnea Pacemaker Paroxysmal atrial fibrillation Peripheral neuropathy Peripheral vascular disease Polyarthralgia Primary osteoarthritis of right knee Protrusion of lumbar intervertebral disc Tension headache Urinary incontinence Surgical History History of colonoscopy History of left knee replacement (~2007) History of pacemaker History of tonsillectomy History of total right hip replacement (~2017) History of transurethral resection of prostate Family History Family History Father No problems noted. Mother Hx of type 1 diabetes mellitus Social History Social History Household Members: Family Housing: House Housing Other:: Home for the elderly Do you presently have visiting nurse or other home services: Yes Alcohol intake: never Patient Tobacco Use Status: Former Tobacco user Years Smoked: 30 yrs ago Smoked in Last 30 Days: No Second Hand Smoke Exposure: No Use of substances other than those prescribed or required for medical reasons: No Advance Directives: Yes Advance Directives on File: Yes Advance Directives Date on File: 04/06/20 service: No Current occupational status: unemployed and retired Current occupation: Right Handed Physical Exam ED Vital Signs: Vital Signs - 24 hr 06/24/22 11:41 06/24/22 11:50 06/24/22 15:32 Temperature 98.3 F 97 F Pulse Rate 60 60 Respiratory Rate 16 16 17 Blood Pressure 140/65 H 191/72 H Pulse Oximetry 99 97 Oxygen Delivery Method Room Air Room Air BMI result Body Mass Index 36.6 Vital signs have been reviewed as appeared to be correct. Blood pressure normal. Heart rate normal. Respiration rate normal. Temperature normal. Oxygen saturation normal. Appearance: Alert. Oriented X3. No acute distress. Head: Normal external exam. Normocephalic. Atraumatic. No Norris signs noted. No raccoon eyes noted Eyes: PERRLA. EOMI. Conjunctiva and sclera normal. Eyelids normal. ENT: TM's Normal. Pharynx normal. Uvula midline. Moist mucous membranes. No trismus noted. No drooling noted. No muffled voice noted. Neck: Normal inspection. Neck supple. FROM. No adenopathy. Thyroid Normal. No meningeal signs. No neck mass noted. CVS: Normal heart rate and rhythm. Heart sound normal. No murmurs noted. Pulses normal throughout. Respiratory: No respiratory distress. Painless inspiration. Breath sounds normal. No wheezes/rales/rhonchi noted. Chest nontender. No accessory muscle usage noted or decreased air movement noted. Abdomen: Soft, left abdominal tenderness, no rebound tenderness, no guarding.. Bowel sounds normal in all 4 quadrants. No distention noted. No organomegaly noted. No visible injury noted. Back: No CVA tenderness. Full range of motion noted. Skin: Skin warm and dry. Normal skin color. Normal skin turgor. No rashes/lesions/lacerations noted. Extremities: No lower extremity edema. Extremities exhibit normal range of motion. Extremities nontender. Neuro: Oriented X 3. Cranial nerve exam: II-XII are grossly intact No motor deficit. No sensory deficit. Reflexes normal. Course Course Course Narrative: 86-year-old male presented with abdominal pain with history of diverticulitis CT scan is showing diverticulitis, patient do not meet criteria for sepsis given the patient age should be treated with IV antibiotic and observation for 1 day. Medical Decision Making Differential Diagnosis Differential Diagnoses: The differential diagnosis associated with the presentation includes (Perforated viscus, diverticulitis, sepsis, electrolyte abnormalities, dehydration, severe anemia.) Admission/Observation Consideration of admission/observation: Escalation of care including admission/observation considered Consult Healthcare Provider Management of the patient was discussed with: Hospitalist Lab Data MDM Lab Attestation statement: I reviewed the patient's lab results. 06/24/22 12:20 06/24/22 12:20 Labs: Lab Results 06/24/22 06/24/22 06/24/22 Range/Units 12:10 12:20 12:20 WBC 10.7 (4.8-10.8) X10*3/uL RBC 3.97 L (4.60-5.80) X10*6/uL Hgb 11.1 L (14.0-18.0) g/dl Hct 35.2 L (42.0-52.0) % MCV 88.7 (80.0-98.0) fL MCH 28.0 (27.0-33.0) pg MCHC 31.5 (31.0-36.0) g/dl RDW 13.2 (11.0-16.0) % Plt Count 209 (160-400) X10*3/uL MPV 9.8 (9.4-12.4) fL Immature Gran % (Auto) 0.4 (0.0-0.4) % Neut % (Auto) 68.5 (45-73) % Lymph % (Auto) 21.0 (20-40) % [place] % (Auto) 8.1 (2-11) % Eos % (Auto) 1.7 (0-4) % Baso % (Auto) 0.3 (0-2) % Lymph # (Auto) 2.3 (1.2-4.9) X10*3/uL [place] # (Auto) 0.9 (0.1-1.2) X10*3/uL Eos # (Auto) 0.2 (0.0-0.4) X10*3/uL Baso # (Auto) 0.0 (0.0-0.2) X10*3/uL Abs Immat Gran (auto) 0.04 H (0.00-0.03) X10*3/uL Absolute Neuts (auto) 7.4 (2.0-8.3) x10*3/uL Absolute Nucleated RBC 0.000 (0.0-0.012) X10*3/uL Nucleated RBC % (auto) 0.0 (0.0-0.2) /100WBC Sodium 144 (135-145) mmol/L Potassium 4.3 (3.3-5.1) mmol/L Chloride 108 (96-108) mmol/L Carbon Dioxide 28 (22-29) mmol/L Anion Gap 12 (12-20) BUN 20 H (9-16) mg/dL Creatinine 1.05 (0.5-1.4) mg/dL Estim Creat Clear Calc 50.2 Estimated GFR > 60 Random Glucose 101 (60-115) mg/dL Calcium 9.4 (8.4-10.2) mg/dL Total Bilirubin 0.5 (0.0-1.0) mg/dL Direct Bilirubin 0.1 (0.0-0.5) mg/dL AST 26 (5-37) U/L ALT 21 (0-40) U/L Alkaline Phosphatase 73 (39-117) U/L Troponin I High Sens (<3.5-35.0) ng/L Total Protein 6.2 L (6.5-8.0) g/dL Albumin 4.0 (3.5-5.0) g/dL Lipase 21 (8-78) U/L Urine Color Yellow Urine Appearance Clear Urine pH 6.0 (5.0-9.0) Ur Specific [place] <= 1.005 (1.005-1.025) Urine Protein Negative (Neg-Trace) mg/dL Urine Glucose (UA) Negative (Negative) mg/dL Urine Ketones Negative (Negative) mg/dL Urine Blood Negative (Negative) Urine Nitrite Negative (Negative) Ur Leukocyte Esterase Negative (Negative) 06/24/22 Range/Units 12:20 WBC (4.8-10.8) X10*3/uL RBC (4.60-5.80) X10*6/uL Hgb (14.0-18.0) g/dl Hct (42.0-52.0) % MCV (80.0-98.0) fL MCH (27.0-33.0) pg MCHC (31.0-36.0) g/dl RDW (11.0-16.0) % Plt Count (160-400) X10*3/uL MPV (9.4-12.4) fL Immature Gran % (Auto) (0.0-0.4) % Neut % (Auto) (45-73) % Lymph % (Auto) (20-40) % [place] % (Auto) (2-11) % Eos % (Auto) (0-4) % Baso % (Auto) (0-2) % Lymph # (Auto) (1.2-4.9) X10*3/uL [place] # (Auto) (0.1-1.2) X10*3/uL Eos # (Auto) (0.0-0.4) X10*3/uL Baso # (Auto) (0.0-0.2) X10*3/uL Abs Immat Gran (auto) (0.00-0.03) X10*3/uL Absolute Neuts (auto) (2.0-8.3) x10*3/uL Absolute Nucleated RBC (0.0-0.012) X10*3/uL Nucleated RBC % (auto) (0.0-0.2) /100WBC Sodium (135-145) mmol/L Potassium (3.3-5.1) mmol/L Chloride (96-108) mmol/L Carbon Dioxide (22-29) mmol/L Anion Gap (12-20) BUN (9-16) mg/dL Creatinine (0.5-1.4) mg/dL Estim Creat Clear Calc Estimated GFR Random Glucose (60-115) mg/dL Calcium (8.4-10.2) mg/dL Total Bilirubin (0.0-1.0) mg/dL Direct Bilirubin (0.0-0.5) mg/dL AST (5-37) U/L ALT (0-40) U/L Alkaline Phosphatase (39-117) U/L Troponin I High Sens 10.3 (<3.5-35.0) ng/L Total Protein (6.5-8.0) g/dL Albumin (3.5-5.0) g/dL Lipase (8-78) U/L Urine Color Urine Appearance Urine pH (5.0-9.0) Ur Specific [place] (1.005-1.025) Urine Protein (Neg-Trace) mg/dL Urine Glucose (UA) (Negative) mg/dL Urine Ketones (Negative) mg/dL Urine Blood (Negative) Urine Nitrite (Negative) Ur Leukocyte Esterase (Negative) Independent Interpretation I performed an independent interpretation of an: CT Scan (Abdomen: Acute diverticulitis of distal descending colon/sigmoid colon.) Radiology Impression Discussion of test interpretation with radiology: I have reviewed the radiologist's reading. Medications Administered Discontinued Medications Generic Name Dose Route Start Last Admin Trade Name Freq PRN Reason Stop Dose Admin Sodium Chloride 1,000 mls @ 999 mls/hr 06/24/22 11:26 06/24/22 12:22 Ns IV 06/24/22 12:26 999 mls/hr .Q1H1M ONE Administration Discharge Plan Discharge Clinical Impression: Abdominal pain, Diverticulitis Patient Disposition: Admitted As Inpatient
[2022-06-24] MEDS: 0.9 % Sodium Chloride 1,000 ML 999 ML IV (12:22)
[2022-06-24 12:24] LABS: MANUAL DIFF FLAG NO
[2022-06-24 12:28] LABS: Appearance Urine Clear; Color Urine Yellow; Glucose Urine UA Negative (Negative); Leukocyte Esterase Urine Negative (Negative); Nitrite Urine Negative (Negative); Specific Gravity - Urine <= 1.005 (1.005-1.025); Urine Blood Negative (Negative); Urine Ketones Negative (Negative); Urine Protein Negative (Neg-Trace)
[2022-06-24 12:29] LABS: Basophils Percent Auto 0.3 % (0-2); Eosinophils Absolute Auto 0.2 X10*3/uL (0.0-0.4); Eosinophils Percent Auto 1.7 % (0-4); Hematocrit 35.2 % (42.0-52.0); Hemoglobin 11.1 g/dl (14.0-18.0); Imm Gran Abs Auto 0.04 X10*3/uL (0.00-0.03); Imm Gran Pct Auto 0.4 % (0.0-0.4); Lymphocytes Absolute Auto 2.3 X10*3/uL (1.2-4.9); Mean Corpuscular HGB Conc 31.5 g/dl (31.0-36.0); Mean Corpuscular Volume 88.7 fL (80.0-98.0); Mean Platelet Volume 9.8 fL (9.4-12.4); Monocytes Absolute Auto 0.9 X10*3/uL (0.1-1.2); Monocytes Percent Auto 8.1 % (2-11); Neutrophils Absolute Auto 7.4 x10*3/uL (2.0-8.3); Neutrophils Percent Auto 68.5 % (45-73); Platelet Count 209 X10*3/uL (160-400); Red Blood Count 3.97 X10*6/uL (4.60-5.80); Red Cell Distribution Width 13.2 % (11.0-16.0); White Blood Count 10.7 X10*3/uL (4.8-10.8)
[2022-06-24 12:54] LABS: Alanine Aminotransferase 21 U/L (0-40); Alkaline Phosphatase 73 U/L (39-117); Anion Gap 12 (12-20); Aspartate Amino Transferase 26 U/L (5-37); Bilirubin Direct 0.1 mg/dL (0.0-0.5); Bilirubin Total 0.5 mg/dL (0.0-1.0); Blood Urea Nitrogen 20 mg/dL (9-16); Calcium 9.4 mg/dL (8.4-10.2); Carbon Dioxide 28 mmol/L (22-29); Chloride 108 mmol/L (96-108); Creatinine Clr Calc Pharmacy 50.2; Estimated Glomerular Filt Rate > 60; Glucose Random 101 mg/dL (60-115); Lipase 21 U/L (8-78); Potassium 4.3 mmol/L (3.3-5.1); Sodium 144 mmol/L (135-145); Total Protein 6.2 g/dL (6.5-8.0)
[2022-06-24 13:00] LABS: Troponin-I High Sensitivity 10.3 ng/L (<3.5-35.0)
[2022-06-24 15:32] VITALS: BP 191/72; PULSE 60; RESP 17; TEMP 36.1; O2SAT 97
--- NOTE | 2022-06-24 15:57 | PC.NURSE ---
Current trouble getting blood cultures done on patient, will hang IV abx when cultures are complete
--- NOTE | 2022-06-24 16:16 | P.HPHOSP_ITS ---
History of Present Illness Date of Service: 06/24/22 Chief Complaint: abdominal pain 86 year old man presenting with left lower quadrant abdominal pain that is sharp, only with palpation, without radiation that started yesterday evening 1 hour after he got into bed. He denied any fever, chills, nausea, vomiting, diarrhea, bloody stools. Reports a history of diverticulosis. Abd ct showing mild diverticulitis of the distal descending colon and proximal sigmoid colon without perforation or abscess. Labs all within acceptable limits. Blood pressure noted to be elevated. He was given a dose of Zosyn in the ED. He will be admitted for further management and treatment of diverticulitis. Review of Systems Review of Systems: Denies any recent fever chills or decrease in appetite respiratory denies any shortness of breath coverage production cardiovascular denied chest pain gastrointestinal pain to LLQ with palpation genitourinary denies any dysuria frequency or hematuria musculoskeletal denies any joint pain or swelling neuropsych denies any weakness or seizures all other systems reviewed are negative [facility] Medical History Anemia Anxiety and depression BPH (benign prostatic hyperplasia) Chronic abdominal pain Constipation COPD (chronic obstructive pulmonary disease) Current use of anticoagulant therapy Diastolic CHF, acute on chronic Diverticulitis Frequency of micturition GERD (gastroesophageal reflux disease) Hearing loss History of COVID-19 History of CVA (cerebrovascular accident) (~2018) History of rib fracture History of TIA (transient ischemic attack) (~2021) Hypercholesterolemia Hypertension Hypertrophic cardiomyopathy Hypogammaglobulinemia Meningioma Obesity (BMI 30-39.9) Obstructive sleep apnea Pacemaker Paroxysmal atrial fibrillation Peripheral neuropathy Peripheral vascular disease Polyarthralgia Primary osteoarthritis of right knee Protrusion of lumbar intervertebral disc Tension headache Urinary incontinence Family History Father No problems noted. Mother Hx of type 1 diabetes mellitus Surgical History History of colonoscopy History of left knee replacement (~2007) History of pacemaker History of tonsillectomy History of total right hip replacement (~2017) History of transurethral resection of prostate Social History Household Members: Family Housing: House Housing Other:: Home for the elderly Do you presently have visiting nurse or other home services: Yes Alcohol intake: never Patient Tobacco Use Status: Former Tobacco user Years Smoked: 30 yrs ago Smoked in Last 30 Days: No Second Hand Smoke Exposure: No Use of substances other than those prescribed or required for medical reasons: No Advance Directives: Yes Advance Directives on File: Yes Advance Directives Date on File: 04/06/20 service: No Current occupational status: unemployed and retired Current occupation: Right Handed Meds Allergies Allergy/AdvReac Type Severity Reaction Status Date / Time ezetimibe [From Zetia] Allergy Severe Anaphylaxis Verified 06/04/22 14:23 dabigatran etexilate Allergy Intermediate ITCHING Verified 06/04/22 14:23 [From PRADAXA] JORGE L Inhibitors Allergy Mild UNKNOWN, Verified 06/04/22 14:23 [Jorge L Inhibitors] FOUND IN MEDICAL RECORD 04/[address] GIPSON apixaban [From ELIQUIS] Allergy Unknown Rash Verified 06/04/22 14:23 rosuvastatin [Crestor] Allergy Unknown myalgia Verified 06/04/22 14:23 Active Medications: Current Medications Pharmacy Consult (Consult Rx Perform Med Rec) 1 each MISCELLANE ONCE PRN PRN Reason: Consult order Home Medications Medication Instructions Recorded Confirmed Last Taken Type atorvastatin 80 mg tablet 80 mg PO BEDTIME 06/03/20 06/24/22 07/09/10 History carvedilol 25 mg tablet 25 mg PO BID 12/04/20 06/24/22 Unknown History potassium chloride 10 mEq 1 tab PO BID 11/14/21 06/24/22 Unknown History tablet,extended release vzfrgztpitoa-rgcrwfya-qlxhwx tablet 1 tab PO DAILY 01/30/22 06/24/22 Unknown History docusate sodium 100 mg capsule 200 mg PO DAILY 03/25/22 06/24/22 Unknown History pantoprazole 40 mg tablet,delayed 40 mg PO DAILY@0630 03/25/22 06/24/22 Unknown History release rivaroxaban 20 mg tablet (Xarelto) 20 mg PO DAILY@1700 03/25/22 06/24/22 Unknown History Physical Exam Vital Signs and Narrative: Vital Signs: Last Vital Signs Temp 97 F 06/24/22 15:32 Pulse 60 06/24/22 15:32 Resp 17 06/24/22 15:32 BP 191/72 H 06/24/22 15:32 Pulse Ox 97 06/24/22 15:32 O2 Del Method Room Air 06/24/22 15:32 BMI result Body Mass Index 36.6 Appearing in no acute distress head is normocephalic atraumatic eyes pupils are PERRLA sclera is anicteric mouth throat mucous membranes are intact and moist neck is supple no lymphadenopathy, no JVD noted lung sounds are clear to auscultation heart regular rate rhythm, clear S1, S2 positive bowel sounds, abdomen is soft, nontender neuro patient is alert x3, no focal deficits Results Labs 06/24/22 12:20 06/24/22 12:20 Labs: Laboratory Results - last 24 hr 06/24/22 06/24/22 06/24/22 12:10 12:20 12:20 MCV 88.7 MCH 28.0 MCHC 31.5 RDW 13.2 Plt Count 209 MPV 9.8 Immature Gran % (Auto) 0.4 Neut % (Auto) 68.5 Lymph % (Auto) 21.0 [place] % (Auto) 8.1 Eos % (Auto) 1.7 Baso % (Auto) 0.3 Lymph # (Auto) 2.3 [place] # (Auto) 0.9 Eos # (Auto) 0.2 Baso # (Auto) 0.0 Abs Immat Gran (auto) 0.04 H Absolute Neuts (auto) 7.4 Absolute Nucleated RBC 0.000 Nucleated RBC % (auto) 0.0 Anion Gap 12 Estim Creat Clear Calc 50.2 Estimated GFR > 60 Random Glucose 101 Calcium 9.4 Total Bilirubin 0.5 Direct Bilirubin 0.1 AST 26 ALT 21 Alkaline Phosphatase 73 Troponin I High Sens Total Protein 6.2 L Albumin 4.0 Lipase 21 Urine Color Yellow Urine Appearance Clear Urine pH 6.0 Ur Specific [place] <= 1.005 Urine Protein Negative Urine Glucose (UA) Negative Urine Ketones Negative Urine Blood Negative Urine Nitrite Negative Ur Leukocyte Esterase Negative 06/24/22 12:20 MCV MCH MCHC RDW Plt Count MPV Immature Gran % (Auto) Neut % (Auto) Lymph % (Auto) [place] % (Auto) Eos % (Auto) Baso % (Auto) Lymph # (Auto) [place] # (Auto) Eos # (Auto) Baso # (Auto) Abs Immat Gran (auto) Absolute Neuts (auto) Absolute Nucleated RBC Nucleated RBC % (auto) Anion Gap Estim Creat Clear Calc Estimated GFR Random Glucose Calcium Total Bilirubin Direct Bilirubin AST ALT Alkaline Phosphatase Troponin I High Sens 10.3 Total Protein Albumin Lipase Urine Color Urine Appearance Urine pH Ur Specific [place] Urine Protein Urine Glucose (UA) Urine Ketones Urine Blood Urine Nitrite Ur Leukocyte Esterase Imaging Radiologist's Impressions: Impressions Abdomen/Pelvis CT 06/24/22 13:30 IMPRESSION: Marked diverticulosis of the colon. There is a mild diverticulitis of the distal descending colon and proximal sigmoid colon similar to prior CAT scan 03/01/2022. No evidence of bowel perforation or abscess. Fleischner guidelines were followed. Assessment and Plan (1) Diverticulitis: Status: Acute Plan 86 year old man admitted with acute non blood loss diverticulitis Acute non blood loss diverticulitis Rocephin and flagyl pain management GI consult clear liquid diet for now follow blood cx Afib , paroxysmal Continue carvedilol and Xarelto HTN Elevated blood pressure likely secondary to pain Continue losartan, verapamil Will add as needed hydralazine PVD/HLD Aspirin and statin History of heart failure with preserved ejection fraction No exacerbation Continue Lasix, verapamil COPD No exacerbation Albuterol as needed BPH Tamsulosin DVT prophylaxis with Attending Dr. Bullock Full code 2 midnights for treatment of acute diverticulitis requiring IV antibiotics and follow-up from manufacturing machine operator Time Spent With Patient Time: Total time managing care of this patient today ____ minutes. Quality Stroke Does the patient have a stroke diagnosis?: No VTE Prior VTE?: No VTE Risk Level:: Medical - moderate - high VTE Device Contraindication: Treatment Not Indicated VTE Drug Contraindication: N/A - Med Ordered
[2022-06-24 16:46] VITALS: BP 198/72; PULSE 59; RESP 16; TEMP 36.5; O2SAT 98
--- NOTE | 2022-06-24 17:11 | MHC.EDTECH ---
PT BLOOD CULTURE AND LACTIC ACID DRAWN AND SENT TO LAB.
[2022-06-24] MEDS: Piperacillin Sodium/Tazobactam 3.375 GM in 0.9 % Sodium Chloride 50 ML IV (17:12)
--- NOTE | 2022-06-24 17:19 | PHA.MEDREC ---
Pharmacy Consult ? Medication Reconciliation Pharmacy has completed the medication reconciliation. Received list from [facility]. Patient also had a list of medications that were last delivered to his home. Used claim history, med list from patient and med list from hospital. Erika Hdez, IrvinD
[2022-06-24 17:35] LABS: Lactic Acid 1.2 mmol/L (0.5-2.0)
[2022-06-24] MEDS: hydrALAZINE HCl 25 MG TABLET PO (18:13)
[2022-06-24] MEDS: metroNIDAZOLE/NS 500 MG/100 ML PIGGYBACK 100 MG IV (18:13)
[2022-06-24] MEDS: Rivaroxaban 20 MG TABLET PO (18:14)
[2022-06-24 19:42] VITALS: BP 190/77; PULSE 60; RESP 18; TEMP 36.2; O2SAT 97
[2022-06-24] MEDS: cefTRIAXone sodium 1 GM in 0.9 % Sodium Chloride 50 ML IV (20:12)
[2022-06-24] MEDS: Atorvastatin Calcium 80 MG TABLET PO (20:13)
[2022-06-24] MEDS: Sucralfate Oral Suspension 1 GM/10 ML ORAL.SUSP PO (20:13)
[2022-06-24] MEDS: carvediloL 25 MG TABLET PO (20:14)
[2022-06-24] MEDS: Potassium Chloride ER 10 MEQ TABLET.ER PO (20:27)
[2022-06-25] VITALS (9 sets, daily range): BP systolic 119–180; BP diastolic 58–78; PULSE 59–68; RESP 16–18; TEMP 36.2–37.1; O2SAT 98–99
[2022-06-25] MEDS: metroNIDAZOLE/NS 500 MG/100 ML PIGGYBACK 100 MG IV ×3 (00:34→16:19)
[2022-06-25] MEDS: 0.9 % Sodium Chloride Flush 3 ML SYRINGE IVFLUSH ×3 (00:34→16:18)
[2022-06-25] MEDS: Acetaminophen 325 MG TABLET 650 MG PO ×2 (00:40→14:02)
[2022-06-25] MEDS: hydrALAZINE HCl 20 MG/ML VIAL 5 MG IVPUSH (01:30)
[2022-06-25] MEDS: carvediloL 25 MG TABLET PO ×3 (01:31→19:42)
--- NOTE | 2022-06-25 04:54 | PC.NURSE ---
PATIENT BLOOD PRESSURE REMAINS ELEVATED AND NOTED HIGH IN ED SETTING PREVIOUS DAY AND PT WAS TREATED. VITALS 98.7-64-16-180/78, 97%ROOM AIR AT 0030 AND PT STATED TO HAVE A MILD HEADACHE AND ASKING FOR TYLENOL. PT STATED THAT HE DOES HAVE FREQUENT HEADACHES AND BELIEVES HE TOOK HIS MORNING BP MEDICATIONS AT HOME. MEDICATED WITH PO TYLENOL FOR STATED 3/10 MILD H/A AT 0045 AND ALSO SENT MESSAGE TO HOSPITALIST FOR A SUSTAINED READING RANGE FROM 191/72-198/72-190/77PREVIOUS TIMES AND 0030 OF THE MENTIONED 180/78. NEW ORDERS OBTAINED FOR PO COREG DOSE AND ALSO TO ADMINISTER HYDRAZINE IVP 5MG X 1 DOSE. MEDICATIONS GIVEN WITH EFFECT BP ON 15 MINUTE CYCLE 172/74-68, 151/67-62, 144/65-62, 147/64-60, 142/67-68. HOSPITALIST UPDATED AND PT ABLE TO REST COMFORTABLY WITH STATED NO ABDOMEN PAIN ONLY TENDER TO TOUCH. WILL CONT TO MONITOR CLOSELY.
[2022-06-25] MEDS: Omeprazole 20 MG CAPSULE.DR PO (05:36)
[2022-06-25 06:17] LABS: MANUAL DIFF FLAG NO
[2022-06-25 06:32] LABS: Basophils Percent Auto 0.3 % (0-2); Eosinophils Absolute Auto 0.1 X10*3/uL (0.0-0.4); Eosinophils Percent Auto 1.6 % (0-4); Hematocrit 31.9 % (42.0-52.0); Hemoglobin 10.4 g/dl (14.0-18.0); Imm Gran Abs Auto 0.03 X10*3/uL (0.00-0.03); Imm Gran Pct Auto 0.3 % (0.0-0.4); Lymphocytes Percent Auto 22.3 % (20-40); Mean Corpuscular HGB Conc 32.6 g/dl (31.0-36.0); Mean Platelet Volume 10.2 fL (9.4-12.4); Monocytes Absolute Auto 0.7 X10*3/uL (0.1-1.2); Monocytes Percent Auto 8.3 % (2-11); Neutrophils Absolute Auto 5.9 x10*3/uL (2.0-8.3); Neutrophils Percent Auto 67.2 % (45-73); Platelet Count 190 X10*3/uL (160-400); Red Blood Count 3.71 X10*6/uL (4.60-5.80); Red Cell Distribution Width 13.2 % (11.0-16.0); White Blood Count 8.8 X10*3/uL (4.8-10.8)
[2022-06-25 07:00] LABS: Anion Gap 11 (12-20); Blood Urea Nitrogen 16 mg/dL (9-16); Calcium 8.6 mg/dL (8.4-10.2); Carbon Dioxide 24 mmol/L (22-29); Chloride 109 mmol/L (96-108); Creatinine Clr Calc Pharmacy 58.6; Estimated Glomerular Filt Rate > 60; Glucose Random 88 mg/dL (60-115); Potassium 3.6 mmol/L (3.3-5.1); Sodium 140 mmol/L (135-145)
[2022-06-25] MEDS: Potassium Chloride ER 10 MEQ TABLET.ER PO ×2 (09:27→19:42)
[2022-06-25] MEDS: Losartan Potassium 50 MG TABLET 100 MG PO (09:27)
[2022-06-25] MEDS: Furosemide 40 MG TABLET PO (09:27)
[2022-06-25] MEDS: Multivitamin TABLET 1 TAB PO (09:27)
[2022-06-25] MEDS: VerapamiL HCL SR 180 MG TABLET.ER PO (09:28)
[2022-06-25] MEDS: Tamsulosin HCL 0.4 MG CAPSULE PO (09:28)
[2022-06-25] MEDS: Aspirin Enteric Coated 81 MG TABLET.DR PO (09:28)
--- NOTE | 2022-06-25 12:55 | HO.PM.IMPN ---
Subjective Subjective Date of Service: 06/25/22 Review of Systems Follow-up diverticulitis Feeling better having some loose stool, requesting regular diet Physical Exam Vital Signs: Vital Signs: Last Vital Signs Temp 97.2 F 06/25/22 07:27 Pulse 60 06/25/22 07:27 Resp 18 06/25/22 07:27 BP 151/68 H 06/25/22 07:27 Pulse Ox 98 06/25/22 07:27 O2 Del Method Room Air 06/25/22 07:27 BMI result Body Mass Index 36.6 Appearing in no acute distress lung sounds are clear to auscultation heart regular rate rhythm, clear S1, S2 positive bowel sounds, abdomen is soft, nontender neuro patient is alert x3, no focal deficits Objective Data Active Medications Acetaminophen (Acetaminophen 325 Mg Tablet) 650 mg PO Q6H PRN PRN Reason: Pain, Mild (Pain Scale 1-3) Last Admin: 06/25/22 00:40 Dose: 650 mg Documented By: MIS Aspirin (Aspirin Enteric Coated 81 Mg Tablet.) 81 mg PO DAILY [facility] Last Admin: 06/25/22 09:28 Dose: 81 mg Documented By: JUNG Atorvastatin Calcium (Atorvastatin Calcium 80 Mg Tablet) 80 mg PO BEDTIME [facility] Last Admin: 06/24/22 20:13 Dose: 80 mg Documented By: VARGHESE Carvedilol (Carvedilol 25 Mg Tablet) 25 mg PO BID [facility]; Protocol Last Admin: 06/25/22 09:27 Dose: 25 mg Documented By: JUNG Docusate Sodium (Docusate Sodium 100 Mg Capsule) 100 mg PO DAILY [facility] Last Admin: 06/25/22 09:29 Dose: Not Given Documented By: JUNG Non-Admin Reason: STATES LOOSE STOOLS Furosemide (Furosemide 40 Mg Tablet) 40 mg PO DAILY [facility]; Protocol Last Admin: 06/25/22 09:27 Dose: 40 mg Documented By: JUNG Ceftriaxone Sodium 1 gm/ (Sodium Chloride) 50 mls @ 100 mls/hr IV Q24H [facility] Last Infusion: 06/24/22 21:05 Dose: 0 mls/hr Documented By: VARGHESE Metronidazole (Flagyl) 500 mg in 100 mls @ 100 mls/hr IV Q8H [facility] Last Infusion: 06/25/22 10:46 Dose: 0 mls/hr Documented By: JUNG Losartan Potassium (Losartan Potassium 50 Mg Tablet) 100 mg PO DAILY [facility]; Protocol Last Admin: 06/25/22 09:27 Dose: 100 mg Documented By: JUNG Morphine Sulfate (Morphine Sulfate 2 Mg/Ml Cartridge) 2 mg IVPUSH Q4H PRN; Protocol PRN Reason: Pain, Mild (Pain Scale 1-3) Multivitamins/Vitamin C (Multivitamin Tablet) 1 tab PO DAILY [facility] Last Admin: 06/25/22 09:27 Dose: 1 tab Documented By: JUNG Omeprazole (Omeprazole 20 Mg Capsule.Dr) 20 mg PO DAILY@0630 [facility] Last Admin: 06/25/22 05:36 Dose: 20 mg Documented By: MIS Ondansetron HCl (Ondansetron Hcl 4 Mg/2 Ml Vial) 4 mg IVPUSH Q8H PRN PRN Reason: Nausea and Vomiting Pharmacy Consult (Consult Rx Perform Med Rec) 1 each MISCELLANE ONCE PRN PRN Reason: Consult order Potassium Chloride (Potassium Chloride Er 10 Meq Tablet.Er) 10 meq PO BID [facility] Last Admin: 06/25/22 09:27 Dose: 10 meq Documented By: JUNG Rivaroxaban (Rivaroxaban 20 Mg Tablet) 20 mg PO DAILY@1700 [facility] Last Admin: 06/24/22 18:14 Dose: 20 mg Documented By: LARS Senna (Sennosides 8.6 Mg Tablet) 8.6 mg PO DAILY PRN PRN Reason: Constipation Sodium Chloride (0.9 % Sodium Chloride Flush 3 Ml Syringe) 3 ml IVFLUSH QSHIFT [facility] Last Admin: 06/25/22 09:28 Dose: 3 ml Documented By: JUNG Sucralfate (Sucralfate Oral Suspension 1 Gm/10 Ml Oral.Susp) 1 gm PO BEDTIME [facility] Last Admin: 06/24/22 20:13 Dose: 1 gm Documented By: VARGHESE Tamsulosin HCl (Tamsulosin Hcl 0.4 Mg Capsule) 0.4 mg PO DAILY [facility] Last Admin: 06/25/22 09:28 Dose: 0.4 mg Documented By: JUNG Verapamil HCl (Verapamil Hcl Sr 180 Mg Tablet.Er) 180 mg PO DAILY [facility]; Protocol Last Admin: 06/25/22 09:28 Dose: 180 mg Documented By: JUNG Labs 06/25/22 05:17 06/25/22 05:17 Labs: Laboratory Results - last 24 hr 06/24/22 06/24/22 06/25/22 12:20 17:08 05:17 MCV 86.0 MCH 28.0 MCHC 32.6 RDW 13.2 Plt Count 190 MPV 10.2 Immature Gran % (Auto) 0.3 Neut % (Auto) 67.2 Lymph % (Auto) 22.3 [place] % (Auto) 8.3 Eos % (Auto) 1.6 Baso % (Auto) 0.3 Lymph # (Auto) 2.0 [place] # (Auto) 0.7 Eos # (Auto) 0.1 Baso # (Auto) 0.0 Abs Immat Gran (auto) 0.03 Absolute Neuts (auto) 5.9 Absolute Nucleated RBC 0.000 Nucleated RBC % (auto) 0.0 Anion Gap Estim Creat Clear Calc Estimated GFR Random Glucose Lactic Acid 1.2 Calcium Troponin I High Sens 10.3 06/25/22 05:17 MCV MCH MCHC RDW Plt Count MPV Immature Gran % (Auto) Neut % (Auto) Lymph % (Auto) [place] % (Auto) Eos % (Auto) Baso % (Auto) Lymph # (Auto) [place] # (Auto) Eos # (Auto) Baso # (Auto) Abs Immat Gran (auto) Absolute Neuts (auto) Absolute Nucleated RBC Nucleated RBC % (auto) Anion Gap 11 L Estim Creat Clear Calc 58.6 Estimated GFR > 60 Random Glucose 88 Lactic Acid Calcium 8.6 D Troponin I High Sens Assessment and Plan (1) Diverticulitis: Status: Acute Plan 86 year old man admitted with acute non blood loss diverticulitis Acute non blood loss diverticulitis Rocephin and flagyl pain management GI following Advanced to regular diet Blood cultures pending Afib , paroxysmal Continue carvedilol and Xarelto HTN Elevated blood pressure likely secondary to pain Continue losartan, verapamil PVD/HLD Aspirin and statin History of heart failure with preserved ejection fraction No exacerbation Continue Lasix, verapamil COPD No exacerbation Albuterol as needed BPH Tamsulosin DVT prophylaxis with Attending Dr. Crowe Full code Continue hospitalization for treatment of acute diverticulitis requiring IV antibiotics and follow-up from ceramic mold designer Time Spent With Patient Time: Total time managing care of this patient today ____ minutes. Quality Stroke Does the patient have a stroke diagnosis?: No VTE Prior VTE?: No VTE Risk Level:: Medical - moderate - high VTE Device Contraindication: Treatment Not Indicated VTE Drug Contraindication: N/A - Med Ordered
--- NOTE | 2022-06-25 14:24 | PM.GICN ---
History of Present Illness Data of Consult Service Date: 06/25/22 Requesting physician: Kiki Child Primary Care Provider: Arti Catalan NP HPI Reason for consult: abdominal pain 86 yr old m with PMHX of PMH of TIA, COPD, GHULAM, HTN, AFib who I am seeing for assessment of lower left abdominal pain. He noted sudden onset left lower quadrant, sharp abdominal pain without radiation. He denied any fever, chills, nausea, vomiting, diarrhea, bloody stools. He has had several episodes of diverticulitis in the past and this felt very simialr to that CT imaging with mild diverticulitis of distal descending colon and proximal sigmoid colon without perforation or abscess. Today he feels back to baseline and wihes to advance diet, passng gas and normal stools Review of Systems Review of Systems: Constitutional : No Weight loss, No Fever, No Chills ENT/Mouth : No sore throat, No Rhinorrhea Eyes: No Swelling, No Redness Cardiovascular : No Chest Pain, No SOB, No Edema Respiratory : No Cough, No Sputum, No Wheezing Gastrointestinal : see HPI Genitourinary : NO Dysuria, No Urinary Frequency, No Hematuria, No Urgency Musculoskeletal : No joint pain, No Myalgias, No Joint Swelling Skin : No Skin Lesions, No rash Neuro : No Weakness, No Numbness, No Dizziness, No Headache Psych : No Anxiety/Panic, No Depression Heme/Lymph: No Bruising, No Lymphadenopathy Endocrine : No Polyuria, No Polydipsia All other systems reviewed and are negative. [facility] Past Medical History Medical History Anemia Anxiety and depression BPH (benign prostatic hyperplasia) Chronic abdominal pain Constipation COPD (chronic obstructive pulmonary disease) Current use of anticoagulant therapy Diastolic CHF, acute on chronic Diverticulitis Frequency of micturition GERD (gastroesophageal reflux disease) Hearing loss History of COVID-19 History of CVA (cerebrovascular accident) (~2018) History of rib fracture History of TIA (transient ischemic attack) (~2021) Hypercholesterolemia Hypertension Hypertrophic cardiomyopathy Hypogammaglobulinemia Meningioma Obesity (BMI 30-39.9) Obstructive sleep apnea Pacemaker Paroxysmal atrial fibrillation Peripheral neuropathy Peripheral vascular disease Polyarthralgia Primary osteoarthritis of right knee Protrusion of lumbar intervertebral disc Tension headache Urinary incontinence Family History Family History Father No problems noted. Mother Hx of type 1 diabetes mellitus Surgical History Surgical History History of colonoscopy History of left knee replacement (~2007) History of pacemaker History of tonsillectomy History of total right hip replacement (~2017) History of transurethral resection of prostate Social History Social History Household Members: Spouse Housing: Apartment Housing Other:: Home for the elderly Do you presently have visiting nurse or other home services: Yes Alcohol intake: never Patient Tobacco Use Status: Former Tobacco user Quit Date: 40 years ago Years Smoked: 30 yrs ago Smoked in Last 30 Days: No Second Hand Smoke Exposure: No Use of substances other than those prescribed or required for medical reasons: No Currently Displaying Signs/Symptoms of Drug Intoxication Withdrawal: No Have you been hit, kicked, punched, or otherwise hurt by someone within the past year? If so, by whom?: No Do you feel safe in your current relationship?: Yes Is there a partner from a previous relationship who is making you feel unsafe now?: No Are you made to feel afraid or neglected: No Christianity Healthcare Practices: Pentacostal Advance Directives: Yes Advance Directives on File: Yes Advance Directives Date on File: 04/06/20 Do you have thoughts of harming others: None Do you have a plan to hurt others: No Plan Recently lost weight without trying: No Nutrition Risks: No Nutritional Risk Poor oral hygiene: No service: No Current occupational status: unemployed and retired Current occupation: Right Handed Meds Allergies Allergy/AdvReac Type Severity Reaction Status Date / Time ezetimibe [From Zetia] Allergy Severe Anaphylaxis Verified 06/04/22 14:23 dabigatran etexilate Allergy Intermediate ITCHING Verified 06/04/22 14:23 [From PRADAXA] JORGE L Inhibitors Allergy Mild UNKNOWN, Verified 06/04/22 14:23 [Jorge L Inhibitors] FOUND IN MEDICAL RECORD 04/[address] GIPSON apixaban [From ELIQUIS] Allergy Unknown Rash Verified 06/04/22 14:23 rosuvastatin [Crestor] Allergy Unknown myalgia Verified 06/04/22 14:23 Active Medications: Current Medications Acetaminophen (Acetaminophen 325 Mg Tablet) 650 mg PO Q6H PRN PRN Reason: Pain, Mild (Pain Scale 1-3) Last Admin: 06/25/22 14:02 Dose: 650 mg Aspirin (Aspirin Enteric Coated 81 Mg Tablet.) 81 mg PO DAILY [facility] Last Admin: 06/25/22 09:28 Dose: 81 mg Atorvastatin Calcium (Atorvastatin Calcium 80 Mg Tablet) 80 mg PO BEDTIME [facility] Last Admin: 06/24/22 20:13 Dose: 80 mg Carvedilol (Carvedilol 25 Mg Tablet) 25 mg PO BID [facility]; Protocol Last Admin: 06/25/22 09:27 Dose: 25 mg Docusate Sodium (Docusate Sodium 100 Mg Capsule) 100 mg PO DAILY [facility] Last Admin: 06/25/22 09:29 Dose: Not Given Furosemide (Furosemide 40 Mg Tablet) 40 mg PO DAILY [facility]; Protocol Last Admin: 06/25/22 09:27 Dose: 40 mg Ceftriaxone Sodium 1 gm/ (Sodium Chloride) 50 mls @ 100 mls/hr IV Q24H [facility] Last Infusion: 06/24/22 21:05 Dose: Infused Metronidazole (Flagyl) 500 mg in 100 mls @ 100 mls/hr IV Q8H [facility] Last Infusion: 06/25/22 10:46 Dose: Infused Losartan Potassium (Losartan Potassium 50 Mg Tablet) 100 mg PO DAILY [facility]; Protocol Last Admin: 06/25/22 09:27 Dose: 100 mg Morphine Sulfate (Morphine Sulfate 2 Mg/Ml Cartridge) 2 mg IVPUSH Q4H PRN; Protocol PRN Reason: Pain, Mild (Pain Scale 1-3) Multivitamins/Vitamin C (Multivitamin Tablet) 1 tab PO DAILY [facility] Last Admin: 06/25/22 09:27 Dose: 1 tab Omeprazole (Omeprazole 20 Mg Capsule.) 20 mg PO DAILY@0630 [facility] Last Admin: 06/25/22 05:36 Dose: 20 mg Ondansetron HCl (Ondansetron Hcl 4 Mg/2 Ml Vial) 4 mg IVPUSH Q8H PRN PRN Reason: Nausea and Vomiting Pharmacy Consult (Consult Rx Perform Med Rec) 1 each MISCELLANE ONCE PRN PRN Reason: Consult order Potassium Chloride (Potassium Chloride Er 10 Meq Tablet.Er) 10 meq PO BID [facility] Last Admin: 06/25/22 09:27 Dose: 10 meq Rivaroxaban (Rivaroxaban 20 Mg Tablet) 20 mg PO DAILY@1700 [facility] Last Admin: 06/24/22 18:14 Dose: 20 mg Senna (Sennosides 8.6 Mg Tablet) 8.6 mg PO DAILY PRN PRN Reason: Constipation Sodium Chloride (0.9 % Sodium Chloride Flush 3 Ml Syringe) 3 ml IVFLUSH QSHIFT [facility] Last Admin: 06/25/22 09:28 Dose: 3 ml Sucralfate (Sucralfate Oral Suspension 1 Gm/10 Ml Oral.Susp) 1 gm PO BEDTIME [facility] Last Admin: 06/24/22 20:13 Dose: 1 gm Tamsulosin HCl (Tamsulosin Hcl 0.4 Mg Capsule) 0.4 mg PO DAILY [facility] Last Admin: 06/25/22 09:28 Dose: 0.4 mg Verapamil HCl (Verapamil Hcl Sr 180 Mg Tablet.Er) 180 mg PO DAILY [facility]; Protocol Last Admin: 06/25/22 09:28 Dose: 180 mg Home Medications Medication Instructions Recorded Confirmed Last Taken Type atorvastatin 80 mg tablet 80 mg PO BEDTIME 06/03/20 06/24/22 07/09/10 History carvedilol 25 mg tablet 25 mg PO BID 12/04/20 06/24/22 Unknown History potassium chloride 10 mEq 1 tab PO BID 11/14/21 06/24/22 Unknown History tablet,extended release mfuevneycadk-lsrbgqyd-uksxtk tablet 1 tab PO DAILY 01/30/22 06/24/22 Unknown History docusate sodium 100 mg capsule 200 mg PO DAILY 03/25/22 06/24/22 Unknown History pantoprazole 40 mg tablet,delayed 40 mg PO DAILY@0630 03/25/22 06/24/22 Unknown History release rivaroxaban 20 mg tablet (Xarelto) 20 mg PO DAILY@1700 03/25/22 06/24/22 Unknown History Physical Exam Vital Signs: Vital Signs: Last Vital Signs Temp 97.2 F 06/25/22 07:27 Pulse 60 06/25/22 07:27 Resp 18 06/25/22 07:27 BP 151/68 H 06/25/22 07:27 Pulse Ox 98 06/25/22 07:27 O2 Del Method Room Air 06/25/22 07:27 BMI result Body Mass Index 36.6 EXAM: GENERAL: The patient is well developed and nontoxic. VITAL SIGNS:see workflow HEENT: Nonicteric sclerae, PERRLA, EOMI. Oropharynx clear. Moist mucous membranes. Conjunctivae appear well perfused. No thyroid mass. CHEST: Chest wall is nontender. HEART: Regular rate and rhythm with ESM 2/6 aortic area LUNGS: Clear to auscultation bilaterally. ABDOMEN: Soft, positive bowel sounds, nontender, no organomegaly.no flank tenderness SKIN: No rash, no excessive bruising, petechiae, or purpura. NEUROLOGIC: Cranial nerves II-XII intact without motor/sensory deficit. psych-nml Results Labs 06/25/22 05:17 06/25/22 05:17 Labs: Short CBC 06/25/22 Range/Units 05:17 WBC 8.8 (4.8-10.8) X10*3/uL Hgb 10.4 L (14.0-18.0) g/dl Hct 31.9 L (42.0-52.0) % Plt Count 190 (160-400) X10*3/uL BMP 06/25/22 05:17 Sodium 140 Potassium 3.6 Chloride 109 H Carbon Dioxide 24 BUN 16 Creatinine 0.90 Calcium 8.6 D Assessment and Plan (1) Diverticulitis: Status: Acute Plan 1. Recurrent diverticulitis-same MO as prior attacks, esther back to baseline. Unfortunately no real proven medical intervention to prevent attacks other than a partial colectomy of the affected area. other options incl probiotics and prn antibiotic supply at home to save admission as well as avoidance of constipation PLAN; 1/ advance diet, 2/ complete abx course 3/ consider o/p probiotic e.g vsl #3, align etc / avoid constipation 5/ o/p f/u and colonoscopy 8 weeks or so Time Spent With Patient Time: Total time managing care of this patient today ____ minutes. Procedures Date of Service Date of Service: 06/25/22
--- NOTE | 2022-06-25 15:25 | MHC.CM.PN ---
PATIENT LIVES WITH /HCP (ON FILE AND VERIFIED) HE USES A WALKER AND A 3-PRONG CANE WHEN NEEDED, A [facility] NURSE VISITS. CURRENTLY HE DOES NOT HAVE ANY VISITS HE IS HOPING TO DC HOME WHEN MEDICALLY CLEARED. IMM 5/3 IN CHART PATIENT WILL NEED TRANSPORT ASSIST HOME
[2022-06-25] MEDS: Rivaroxaban 20 MG TABLET PO (16:19)
[2022-06-25] MEDS: cefTRIAXone sodium 1 GM in 0.9 % Sodium Chloride 50 ML IV (19:36)
[2022-06-25] MEDS: Sucralfate Oral Suspension 1 GM/10 ML ORAL.SUSP PO (19:41)
[2022-06-25] MEDS: Atorvastatin Calcium 80 MG TABLET PO (19:42)
[2022-06-26] VITALS: BP 140/66; PULSE 65; RESP 16; TEMP 36; O2SAT 98
[2022-06-26] MEDS: metroNIDAZOLE/NS 500 MG/100 ML PIGGYBACK 100 MG IV ×2 (00:46→09:22)
[2022-06-26] MEDS: 0.9 % Sodium Chloride Flush 3 ML SYRINGE IVFLUSH ×2 (00:46→09:21)
[2022-06-26] MEDS: Omeprazole 20 MG CAPSULE.DR PO (06:15)
[2022-06-26 08:00] VITALS: BP 160/45; PULSE 77; RESP 20; TEMP 36.4; O2SAT 95
[2022-06-26] MEDS: Furosemide 40 MG TABLET PO (09:20)
[2022-06-26] MEDS: Potassium Chloride ER 10 MEQ TABLET.ER PO (09:20)
[2022-06-26] MEDS: Aspirin Enteric Coated 81 MG TABLET.DR PO (09:20)
[2022-06-26] MEDS: Tamsulosin HCL 0.4 MG CAPSULE PO (09:20)
[2022-06-26] MEDS: carvediloL 25 MG TABLET PO (09:20)
[2022-06-26] MEDS: Losartan Potassium 50 MG TABLET 100 MG PO (09:20)
[2022-06-26] MEDS: VerapamiL HCL SR 180 MG TABLET.ER PO (09:20)
[2022-06-26] MEDS: Multivitamin TABLET 1 TAB PO (09:20)
--- NOTE | 2022-06-26 11:42 | PM.DS ---
DS: Providers Provider Date of Service: 06/26/22 Date of admission: 06/24/22 16:23 Date of discharge: 06/26/22 Primary care physician: Arti Catalan NP Consults: 06/24/22 16:23 Consult to Gastroenterology Routine Consulting Provider: Ayah Velazquez Reason for consultation: diverticulitis Attending physician on discharge: Leonardo Crowe Discharging clinician: Mandi Vallecillo DS: Diagnosis Discharge Diagnosis (1) Diverticulitis: Status: Acute DS: Summary Hospital Course Hospital Course: From H&P on day of admission 86 year old man presenting with left lower quadrant abdominal pain that is sharp, only with palpation, without radiation that started yesterday evening 1 hour after he got into bed.? He denied any fever, chills, nausea, vomiting, diarrhea, bloody stools.? Reports a history of diverticulosis. Abd ct showing mild diverticulitis of the distal descending colon and proximal sigmoid colon without perforation or abscess. Labs all within acceptable limits. Blood pressure noted to be elevated. He was given a dose of Zosyn in the ED. He will be admitted for further management and treatment of diverticulitis. Acute diverticulitis, uncomplicated. CT scan showed mild diverticulitis of the distal descending colon and proximal sigmoid colon with no evidence of bowel perforation or abscess. He was treated with IV Rocephin and flagyl. He was seen in consultation by GI who recommended outpatient colonoscopy after inflammation has improved, proximally 8 weeks. Patient reports recurrent bouts of diverticulitis, based on results of colonoscopy may need to consider outpatient surgical evaluation. Patient's diet was advanced, his abdominal pain has resolved and he is currently tolerating a regular diet. He will be discharged home to complete course of antibiotics. Recommended to Avoid constipation. Time Spent with Patient Time attestation: Total time managing care of this patient today ____ minutes. Discharge coordination time: Greater than 30 minutes Quality: Safe Use of Opioids Does Pt have an Active Cancer Diagnosis on the Problem List?: No Quality: Stroke Does the patient have a stroke diagnosis?: No Physical Exam Vital Signs: Vital Signs: Last Vital Signs Temp 97.5 F 06/26/22 08:00 Pulse 77 06/26/22 08:00 Resp 20 06/26/22 08:00 BP 160/45 H 06/26/22 08:00 Pulse Ox 95 06/26/22 08:00 O2 Del Method Room Air 06/26/22 08:00 BMI result Body Mass Index 36.6 Const: General: cooperative, comfortable, alert and awake Nutritional Appearance: overweight Orientation/consciousness: patient oriented x3 Resp: Effort & Inspection: normal respiratory effort and able to speak in complete sentences Cardio: Rate: regular rate Heart sounds: S1 normal heart sound present and S2 normal heart sound present GI: Inspection: No distended Palpation (GI): Soft to palpation and nontender Neuro: General: patient oriented x3 and CN's II-XI intact bilaterally Extrem: General: Yes no pedal edema DS: Data Data Completed and Pending Completed studies during hospitalization [Text1]: Procedures Insertion of Endotracheal Airway into Trachea, Via Natural or Artificial Opening Endoscopic (04/01/20) Insertion of Infusion Device into Superior Vena Cava, Percutaneous Approach (04/01/20) Insertion of Pacemaker Lead into Right Atrium, Percutaneous Approach (03/25/22) Insertion of Pacemaker Lead into Right Ventricle, Percutaneous Approach (03/25/22) Insertion of Pacemaker, Dual Chamber into Chest Subcutaneous Tissue and Fascia, Open Approach (03/25/22) Introduction of Remdesivir Anti-infective into Peripheral Vein, Percutaneous Approach, [employer] (04/01/20) Respiratory Ventilation, Greater than 96 Consecutive Hours (04/01/20) Transfusion of Convalescent Plasma (Nonautologous) into Peripheral Vein, Percutaneous Approach, [employer] (04/01/20) Ultrasonography of Superior Vena Cava, Guidance (04/01/20) Labs on day of discharge: Preliminary micro results at discharge 06/24/22 17:09 Blood Culture - Preliminary Blood - Venous No growth after 24 hours. 06/24/22 17:08 Blood Culture - Preliminary Blood - Venous No growth after 24 hours. Discharge Plan Discharge Anticipated Discharge Date/Time: 06/26/22 11:39 Patient Disposition: Home, Self-Care Discharge Diagnosis: acute diverticulitis Referrals: Ayah Velazquez MD [Physician] - 2 Months Long,Arti Faith NP [Primary Care Provider] - 1 Week Discharge Medications: New amoxicillin-pot clavulanate 875-125 mg tablet 1 tab PO BID 8 Days Qty: 16 0RF Continued Breo Ellipta 200-25 mcg/dose blister with device 1 ea inhalation DAILY Qty: 60 2RF tamsulosin 0.4 mg capsule 0.4 mg PO DAILY 90 Days Qty: 90 3RF verapamil 180 mg capsule,ext rel. pellets 24 hr 180 mg PO DAILY Qty: 90 3RF losartan 100 mg tablet 100 mg PO DAILY Qty: 90 0RF sennosides [Senokot] 8.6 mg tablet 8.6 mg PO DAILY PRN (Reason: Constipation) Qty: 90 1RF furosemide 40 mg tablet 40 mg PO DAILY Qty: 90 1RF atorvastatin 80 mg tablet 80 mg PO BEDTIME potassium chloride 10 mEq tablet extended release 1 tab PO BID pantoprazole 40 mg tablet,delayed release (DR/EC) 40 mg PO DAILY@0630 docusate sodium 100 mg capsule 200 mg PO DAILY Xarelto 20 mg tablet 20 mg PO DAILY@1700 tvyysofkkivt-ivaixeqv-uvmhft Tablet 1 tab PO DAILY aspirin 81 mg capsule 81 mg PO DAILY Qty: 30 0RF carvedilol 25 mg tablet 25 mg PO BID sucralfate 100 mg/mL suspension 10 ml PO BEDTIME Qty: 400 3RF Discharge Orders: Discharge Order (Routine); Ordered 06/26/22 Ordered By: Mandi Vallecillo Activity on Discharge: As tolerated Stand Alone Forms: Patient Portal Discharge page Care Plan Goals: resolution of diverticulitis Health Concerns: acute diverticulitis Plan of Treatment: Complete course of antibiotics as prescribed Call to schedule follow-up appointment with GI for colonoscopy in about 8 weeks If recurrent episodes of diverticulitis may need outpatient evaluation by General surgery Avoid constipation Assessment: See discharge summary
--- NOTE | 2022-06-26 12:34 | MHC.CM.PN ---
HOME - SELF CARE WITH RESUMPTION OF CCA RN VISITS [facility] COVER[facility] FOR CHAIR VAN EXPECTED FOR 1330 RN AND PATIENT AWARE OF PLAN.
== END 2022-06-26 13:45 | disposition home or self-care (01) | DRG 392 ==
LOC: HO.ED 15:25 → HO.EDOVER 18:10 → HO.S3 18:11
PROVIDERS: Admitting Provider Nurse Practitioner Acute Care; Emergency Provider Emergency Medicine; PCP Registered Nurse; Visit Provider Physician Assistant Medical
DX: K57.32 Diverticulitis of large intestine without perforation or abscess without bleeding (principal); I50.32 Chronic diastolic (congestive) heart failure; E78.00 Pure hypercholesterolemia, unspecified; I48.0 Paroxysmal atrial fibrillation; N40.0 Benign prostatic hyperplasia without lower urinary tract symptoms; I73.9 Peripheral vascular disease, unspecified; Z95.0 Presence of cardiac pacemaker; Z87.891 Personal history of nicotine dependence; Z88.8 Allergy status to other drugs, medicaments and biological substances; Z79.01 Long term (current) use of anticoagulants; Z79.51 Long term (current) use of inhaled steroids; Z79.82 Long term (current) use of aspirin; Z79.899 Other long term (current) drug therapy
CPT/HCPCS: 36415; 74176; 80048; 80076; 81003; 83605; 83690; 84484; 85025; 87040; 99285; J0696; J2543

== ENCOUNTER → 2022-07-01 10:37 | Outpatient (BNVA) | payer OTHER, SELFPAY | PROVIDERS: PCP Registered Nurse; Visit Provider Nurse Practitioner Family | DX: K57.92 Diverticulitis of intestine, part unspecified, without perforation or abscess without bleeding (principal); K59.01 Slow transit constipation; K21.9 Gastro-esophageal reflux disease without esophagitis; R10.32 Left lower quadrant pain | CPT/HCPCS: 99212 ==

== ENCOUNTER → 2022-08-12 11:18 | Outpatient (BNVA) | payer OTHER, SELFPAY | PROVIDERS: Visit Provider Nurse Practitioner Family | DX: R10.32 Left lower quadrant pain (principal); K57.92 Diverticulitis of intestine, part unspecified, without perforation or abscess without bleeding; K21.9 Gastro-esophageal reflux disease without esophagitis; K59.01 Slow transit constipation; Z79.899 Other long term (current) drug therapy | CPT/HCPCS: 99212 ==

== ENCOUNTER 2022-09-07 04:14 | Observation (INO) | payer OTHER, SELFPAY ==
[2022-09-07] VITALS (10 sets, daily range): BP systolic 140–200; BP diastolic 48–78; PULSE 60–70; RESP 11–20; TEMP 36.4–37; O2SAT 95–98; BMI 36.6; BMI 37.0
--- NOTE | 2022-09-07 | ECG_ITS ---
Test Reason : HYPERTENSION Blood Pressure : / mmHG Vent. Rate : 060 BPM Atrial Rate : 060 BPM P-R Int : 214 ms QRS Dur : 148 ms QT Int : 468 ms P-R-T Axes : 000 -45 126 degrees QTc Int : 468 ms AV dual-paced rhythm with prolonged AV conduction Abnormal ECG When compared with ECG of 25-MAR-2022 16:00, Electronic ventricular pacemaker has replaced Wide QRS rhythm Referred By: Generic ED Physician Electronically Signed By:DEON DALAL MD
--- NOTE | ~2022-09-07 | CT_ITS ---
EXAMINATION: CT ANGIOGRAM HEAD CT ANGIOGRAM NECK CLINICAL INFORMATION: Intermittent right facial numbness. Left lower extremity numbness. COMPARISON: CT head from 03/25/2022. CTA head and neck from 02/11/2022. Brain MRI from 01/30/2022. TECHNIQUE: Initial noncontrast wood die maker imaging of the head and neck was performed. Noncontrast head CT was also performed. Test bolus sequences followed by intravenous administration 70 mL of Omnipaque 350. Helical imaging was performed in the axial plane from the aortic arch to the skull vertex. Delayed postcontrast imaging of the head was also performed. The data was processed at the nuclear medicine chief technologist's workstation for generation of MIP sequences. Angled MIPs and volume rendered reformatted images were also generated at an offline 3D workstation. Stenoses are assessed in accordance with NASCET criteria unless otherwise indicated. This CT examination was performed using dose optimization techniques as appropriate, variously including the following: *Automated exposure control. *Adjustment of mA and/or kV according to patient size (this includes techniques or standardized protocols for targeted exams where dose is matched to indication/reason for exam; i.e. extremities or head). *Use of iterative reconstruction technique. DLP: 2283 mGy-cm FINDINGS: CT Head: There is no evidence of acute intracranial hemorrhage or edematous territorial infarction. Nunez-white matter differentiation is preserved. A few foci of hypoattenuation in the periventricular and deep white matter are consistent with mild to moderate microangiopathy. Proportional prominence of the ventricles and sulcal spaces without evidence of obstructive hydrocephalus. No abnormal mass effect or midline shift. No extra-axial fluid collections. No pathologic intra-axial enhancement or regional oligemia. No acute soft tissue or osseous abnormalities. The mastoid air cells and visualized paranasal sinuses are clear. The patient is edentulous. CT Neck: The thyroid gland is mildly atrophic. The remaining cervical soft tissues are within normal limits. Straightening of the normal cervical lordosis. Moderate degenerative disc disease at C3-C4 and from C6-T3. Facet and uncovertebral joint arthropathy leads to osseous encroachment on the neural foramina from C2-T1. CT Upper Chest: Left pectoral pacemaker. The visualized lung apices and upper mediastinum are within normal limits. Advanced degenerative arthropathy of the right shoulder. Coronary artery calcifications: Present - advanced. Neck CTA: Aortic Arch: Normal contour and caliber with moderate calcific atherosclerotic disease. Classic 3 vessel branching pattern of the aortic arch. Great Vessel Origins: No significant stenosis of the branch origins. Right Common Carotid Artery: No focal stenosis or occlusion. Cervical Right Internal Carotid Artery: Calcific atherosclerotic disease of the carotid bulb and proximal internal carotid artery causing less than 50% stenosis. Left Common Carotid Artery: No focal stenosis or occlusion. Cervical Left Internal Carotid Artery: Calcific atherosclerotic disease of the carotid bulb and proximal internal carotid artery causing less than 50% stenosis. Cervical Right Vertebral Artery: Dominant. Atherosclerotic disease causes mild stenosis of the origin. No additional focal stenosis or occlusion. Cervical Left Vertebral Artery: Atherosclerotic disease causes moderate stenosis of the origin. No additional focal stenosis or occlusion. Brain CTA: Intracranial Internal Carotid Arteries: Calcific atherosclerotic disease of the intracranial internal carotid arteries without occlusion or flow-limiting stenosis. Right Anterior Cerebral Artery: Normal A1 segment. Normal opacification of the distal LUZ ELENA segments. Left Anterior Cerebral Artery: Normal A1 segment. Normal opacification of the distal LUZ ELENA segments. Anterior Communicating Artery: Normal. Right Middle Cerebral Artery: Normal M1 segment of the MCA without focal stenosis or occlusion. Normal arborization of the distal segments. Left Middle Cerebral Artery: Normal M1 segment of the MCA without focal stenosis or occlusion. Normal arborization of the distal segments. Right Vertebral Artery: Normal V4 segment. Normal opacification of the proximal segments of the posterior inferior cerebellar artery. Left Vertebral Artery: Normal V4 segment. Normal opacification of the proximal segments of the posterior inferior cerebellar artery. Basilar Artery: Normal without focal stenosis or occlusion. Normal appearance of the proximal superior cerebellar arteries. Right Posterior Cerebral Artery: Normal P1 segment. Normal opacification of the distal SQUARING MACHINE OPERATOR segments. Left Posterior Cerebral Artery: The P1 segment is mildly diminutive. origin of the SQUARING MACHINE OPERATOR with robust opacification of the posterior communicating artery. Normal opacification of the distal SQUARING MACHINE OPERATOR segments. Normal opacification of the superior sagittal, straight, transverse, and sigmoid sinuses. CT/CT angio head neck IMPRESSION: 1. No evidence of acute intracranial hemorrhage or edematous territorial infarction. Mild to moderate underlying microangiopathy and generalized cerebral volume loss. 2. CTA of the head and neck without proximal occlusion or flow-limiting stenosis. 3. Moderate multilevel degenerative spondyloarthropathy of the cervical spine.
[2022-09-07 05:04] LABS: MANUAL DIFF FLAG NO
[2022-09-07 05:05] LABS: Basophils Percent Auto 0.4 % (0-2); Eosinophils Absolute Auto 0.2 X10*3/uL (0.0-0.4); Eosinophils Percent Auto 2.6 % (0-4); Hematocrit 32.8 % (42.0-52.0); Hemoglobin 10.2 g/dl (14.0-18.0); Imm Gran Abs Auto 0.02 X10*3/uL (0.00-0.03); Imm Gran Pct Auto 0.3 % (0.0-0.4); Lymphocytes Absolute Auto 2.1 X10*3/uL (1.2-4.9); Lymphocytes Percent Auto 28.3 % (20-40); Mean Corpuscular HGB Conc 31.1 g/dl (31.0-36.0); Mean Corpuscular Hemoglobin 26.8 pg (27.0-33.0); Mean Corpuscular Volume 86.3 fL (80.0-98.0); Mean Platelet Volume 9.8 fL (9.4-12.4); Monocytes Absolute Auto 0.8 X10*3/uL (0.1-1.2); Monocytes Percent Auto 10.2 % (2-11); Neutrophils Absolute Auto 4.3 x10*3/uL (2.0-8.3); Neutrophils Percent Auto 58.2 % (45-73); Platelet Count 183 X10*3/uL (160-400); Red Cell Distribution Width 14.6 % (11.0-16.0); White Blood Count 7.4 X10*3/uL (4.8-10.8)
[2022-09-07 05:23] LABS: Alanine Aminotransferase 18 U/L (0-40); Albumin Level 3.6 g/dL (3.5-5.0); Alkaline Phosphatase 63 U/L (39-117); Anion Gap 15 (12-20); Aspartate Amino Transferase 25 U/L (5-37); Bilirubin Direct 0.1 mg/dL (0.0-0.5); Bilirubin Total 0.3 mg/dL (0.0-1.0); Blood Urea Nitrogen 18 mg/dL (9-16); Calcium 9.4 mg/dL (8.4-10.2); Carbon Dioxide 21 mmol/L (22-29); Chloride 111 mmol/L (96-108); Creatinine Clr Calc Pharmacy 52.7; Estimated Glomerular Filt Rate > 60; Glucose Random 94 mg/dL (60-115); Potassium 3.9 mmol/L (3.3-5.1); Sodium 143 mmol/L (135-145); Total Protein 5.9 g/dL (6.5-8.0)
[2022-09-07 05:26] LABS: B Type Natriuretic Peptide 124 pg/mL (<100); Troponin-I High Sensitivity 7.7 ng/L (<3.5-35.0)
--- NOTE | 2022-09-07 05:49 | ED_ITS ---
HPI - General Adult General Chief complaint: General Medical Stated complaint: weakness HTN Time Seen by Provider: 09/07/22 05:37 Source: patient Mode of arrival: EMS Limitations: no limitations History of Present Illness HPI narrative: Patient comes to the emergency room complaining of high blood pressure. Patient states that he takes regularly all of his blood pressure medications including Lasix, carvedilol, verapamil and losartan. Patient states that the reason that he came to the hospital today is because he had right-sided facial numbness and left leg numbness and weakness. Patient states that he over the last couple of months, he has been experiencing multiple episodes of right facial numbness and left leg numbness sometimes weakness. Patient states that it resolved fairly quickly so he has not been paying much attention to it. However, today it lasted for about an hour before it self-resolved. Patient denies chest pain or shortness of breath Related Data Home Medications Medication Instructions Recorded Confirmed atorvastatin 80 mg tablet 80 mg PO BEDTIME 06/03/20 09/07/22 carvedilol 25 mg tablet 25 mg PO BID 12/04/20 09/07/22 potassium chloride 10 mEq 1 tab PO BID 11/14/21 09/07/22 tablet,extended release [id number] tablet 1 tab PO DAILY 01/30/22 09/07/22 pantoprazole 40 mg tablet,delayed 40 mg PO DAILY@0630 03/25/22 09/07/22 release Previous Rx's Medication Instructions Recorded fluticasone furoate 200 1 ea inhalation DAILY #60 ea 07/05/20 mcg-vilanterol 25 mcg/dose inhalation powder (Breo Ellipta) tamsulosin 0.4 mg capsule 0.4 mg PO DAILY 90 days #90 caps 03/29/21 verapamil 180 mg 24 hr 180 mg PO DAILY #90 caps 03/29/21 capsule,extended release losartan 100 mg tablet 100 mg PO DAILY #90 tabs 07/02/21 aspirin 81 mg capsule 81 mg PO DAILY #30 caps 01/31/22 sucralfate 100 mg/mL oral 10 ml PO BEDTIME #400 mL 02/04/22 suspension furosemide 40 mg tablet 40 mg PO DAILY #90 tabs 06/16/22 Bifidobacterium infantis 10.5 mg See Rx Instructions PO DAILY #30 07/01/22 (10 million cell) chewable tablet tabs (Align) polyethylene glycol 3350 17 17 g PO DAILY #510 grams 07/01/22 gram/dose oral powder (Miralax) Lactobacillus acidophilus 10 10,000 mmu cells PO DAILY #30 caps 07/10/22 billion cell capsule rivaroxaban 20 mg tablet (Xarelto) 20 mg PO DAILY@1700 #90 tabs 07/18/22 docusate sodium 100 mg capsule 200 mg PO DAILY #180 caps 08/12/22 sennosides 8.6 mg tablet (Senokot) 8.6 mg PO DAILY Constipation #90 08/12/22 tabs Allergies Allergy/AdvReac Type Severity Reaction Status Date / Time ezetimibe [From Zetia] Allergy Severe Anaphylaxis Verified 09/07/22 04:21 dabigatran etexilate Allergy Intermediate ITCHING Verified 09/07/22 04:21 [From PRADAXA] JORGE L Inhibitors Allergy Mild UNKNOWN, Verified 09/07/22 04:21 [Jorge L Inhibitors] FOUND IN MEDICAL RECORD 04/[address] GIPSON apixaban [From ELIQUIS] Allergy Unknown Rash Verified 09/07/22 04:21 rosuvastatin [Crestor] Allergy Unknown myalgia Verified 09/07/22 04:21 Review of Systems Review of Systems: Constitutional : No Weight loss, No Fever, No Chills, No Night Sweats, No Fatigue, No Malaise ENT/Mouth : No Hearing loss, No Ear Pain, No Nasal Congestion, No Sinus Pain, No Hoarseness, No sore throat, No Rhinorrhea, No Swallowing Difficulty Eyes: No Eye Pain, No Swelling, No Redness, No Foreign Body, No Discharge, No Vision Changes Cardiovascular : Complaining of high blood pressure, No Chest Pain, No SOB, No Dyspnea on Exertion, No Orthopnea, No Edema, No Palpitations Respiratory : No Cough, No Sputum, No Wheezing, No Smoke Exposure, No Dyspnea Gastrointestinal : No Nausea, No Vomiting, No Diarrhea, No Constipation, No abdominal Pain, No Hematochezia, No Melena Genitourinary : no irregular bleeding, No Dysuria, No Urinary Frequency, No Hematuria, No Urinary Incontinence, No Urgency, No Flank Pain, No Urinary Flow Changes, No Hesitancy Musculoskeletal : No joint pain, No Myalgias, No Joint Swelling Skin : No Skin Lesions, No rash Neuro : No Weakness, complaining of intermittent right facial numbness and left leg numbness and weakness. Psych : No Anxiety/Panic, No Depression, No SI/HI/AH/VH, No Social Issues, Heme/Lymph: No Bruising, No Bleeding,No Lymphadenopathy Endocrine : No Polyuria, No Polydipsia, No Temperature Intolerance [facility] Past Medical History Medical History Anemia Anxiety and depression BPH (benign prostatic hyperplasia) Chronic abdominal pain Constipation COPD (chronic obstructive pulmonary disease) Current use of anticoagulant therapy Diastolic CHF, acute on chronic Diverticulitis Frequency of micturition GERD (gastroesophageal reflux disease) Hearing loss History of COVID-19 History of CVA (cerebrovascular accident) (~2018) History of rib fracture History of TIA (transient ischemic attack) (~2021) Hypercholesterolemia Hypertension Hypertrophic cardiomyopathy Hypogammaglobulinemia Meningioma Obesity (BMI 30-39.9) Obstructive sleep apnea Pacemaker Paroxysmal atrial fibrillation Peripheral neuropathy Peripheral vascular disease Polyarthralgia Primary osteoarthritis of right knee Protrusion of lumbar intervertebral disc Tension headache Urinary incontinence Surgical History History of colonoscopy History of left knee replacement (~2007) History of pacemaker History of tonsillectomy History of total right hip replacement (~2016) History of transurethral resection of prostate Family History Family History Father No problems noted. Mother Hx of type 1 diabetes mellitus Social History Social History Household Members: Spouse Housing: Apartment Housing Other:: Home for the elderly Do you presently have visiting nurse or other home services: Yes Alcohol intake: never Patient Tobacco Use Status: Former Tobacco user Quit Date: 40 years ago Years Smoked: 30 yrs ago Second Hand Smoke Exposure: No Advance Directives: Yes Advance Directives on File: Yes Advance Directives Date on File: 04/06/20 service: No Current occupational status: unemployed and retired Current occupation: Right Handed Physical Exam ED Vital Signs: Vital Signs - 24 hr 09/07/22 04:22 09/07/22 04:26 09/07/22 06:06 Temperature 98.3 F Pulse Rate 63 64 61 Respiratory Rate 20 20 17 Blood Pressure 181/66 H 183/71 H 200/78 H Pulse Oximetry 97 96 97 Oxygen Delivery Method Room Air Room Air Room Air 09/07/22 06:39 09/07/22 07:00 Temperature 98.2 F Pulse Rate 62 60 Respiratory Rate 15 16 Blood Pressure 187/71 H 173/67 H Pulse Oximetry 98 97 Oxygen Delivery Method Room Air Room Air BMI result Body Mass Index 36.6 Const Other: Appearance: Alert. Oriented X3. No acute distress. Eyes: Pupils equal, round and reactive to light. ENT: Pharynx normal. Neck: Normal inspection. Neck supple. No lymph nodes noted. No crepitus CVS: Normal heart rate and rhythm. Pulses normal. Normal S1 and S2 Respiratory: No respiratory distress. Breath sounds normal. No Wheezing. No rales Abdomen: Soft and nontender. No rigidity. No distention. Skin: Skin warm and dry. Normal skin color. Normal skin turgor. Extremities: No lower extremity edema. No Lacerations. No Rash Neuro: Oriented X 3. No motor deficit. No sensory deficit. Moving all extremities. No slurred speech. CN 2 through 12 grossly intact Psych: calm, cooperative, normal affect NIH Stroke Scale Internal: Initial- Upon Arrival Level of Consciousness: Alert Level of Consciousness Questions: Answers both questions correctly Level of Consciousness Commands: Performs both tasks correctly Best Gaze: Normal Visual: No visual loss Facial Palsy: Normal Motor Arm (Right): No drift Motor Arm (Left): No drift Motor Leg (Right): No drift Motor Leg (Left): No drift Limb Ataxia: Absent Sensory: Normal Best Language: No aphasia Dysarthia: Normal Extinction and Inattention: No abnormality Score: 0 Course Course Course Narrative: -of patient's labs and imaging pending Medications Administered Discontinued Medications Generic Name Dose Route Start Last Admin Trade Name Freq PRN Reason Stop Dose Admin Carvedilol 25 mg 09/07/22 06:40 09/07/22 06:46 Carvedilol 25 Mg Tablet PO 09/07/22 06:41 25 mg ONCE ONE Administration Protocol Furosemide 40 mg 09/07/22 06:40 09/07/22 06:46 Furosemide 40 Mg Tablet PO 09/07/22 06:41 40 mg ONCE ONE Administration Protocol Iohexol 70 ml 09/07/22 06:40 09/07/22 06:48 Iohexol 350 Mg/Ml 100 Ml Infus..Btl IV 09/07/22 06:41 70 ml ONCE ONE Administration Labetalol HCl 100 mg 09/07/22 05:48 09/07/22 06:04 Labetalol Hcl 100 Mg Tablet PO 09/07/22 05:49 100 mg ONCE ONE Administration Protocol Labetalol HCl 100 mg 09/07/22 06:39 09/07/22 06:45 Labetalol Hcl 100 Mg Tablet PO 09/07/22 06:40 100 mg ONCE ONE Administration Protocol Medical Decision Making Medical Decision Making MDM Narrative: -patient's history is concerning for TIA. Patient has a very extensive history of TIAs, cardiac history. Admission is considered -of patient's labs and imaging pending. -patient's current blood pressure is 183/71. Patient will be given 1 dose of 1 00 mg p.o. of labetalol and we will reassess -patient's blood pressure did not improve, blood pressure increased to 187/71. Patient on getting his home medications, blister with Lasix and carvedilol. Needed, patient can still take losartan 100 mg and verapamil 180 mg CTA pending, likely needs admission. Sign out given to Dr. Nguyen Differential Diagnosis Differential Diagnoses: The differential diagnosis associated with the pres entation includes (TIA, CVA, migraines, hypertension) Admission/Observation Consideration of admission/observation: Escalation of care including admiss ion/observation considered Lab Data [facility] Lab Attestation statement: I reviewed the patient's lab results. 09/07/22 04:57 09/07/22 04:57 Labs: Lab Results 09/07/22 09/07/22 09/07/22 Range/Units 04:57 04:57 04:57 WBC 7.4 (4.8-10.8) X10*3/uL RBC 3.80 L (4.60-5.80) X10*6/uL Hgb 10.2 L (14.0-18.0) g/dl Hct 32.8 L (42.0-52.0) % MCV 86.3 (80.0-98.0) fL MCH 26.8 L (27.0-33.0) pg MCHC 31.1 (31.0-36.0) g/dl RDW 14.6 (11.0-16.0) % Plt Count 183 (160-400) X10*3/uL MPV 9.8 (9.4-12.4) fL Immature Gran % (Auto) 0.3 (0.0-0.4) % Neut % (Auto) 58.2 (45-73) % Lymph % (Auto) 28.3 (20-40) % Simpson % (Auto) 10.2 (2-11) % Eos % (Auto) 2.6 (0-4) % Baso % (Auto) 0.4 (0-2) % Lymph # (Auto) 2.1 (1.2-4.9) X10*3/uL Simpson # (Auto) 0.8 (0.1-1.2) X10*3/uL Eos # (Auto) 0.2 (0.0-0.4) X10*3/uL Baso # (Auto) 0.0 (0.0-0.2) X10*3/uL Abs Immat Gran (auto) 0.02 (0.00-0.03) X10*3/uL Absolute Neuts (auto) 4.3 (2.0-8.3) x10*3/uL Absolute Nucleated RBC 0.000 (0.0-0.012) X10*3/uL Nucleated RBC % (auto) 0.0 (0.0-0.2) /100WBC Sodium 143 (135-145) mmol/L Potassium 3.9 (3.3-5.1) mmol/L Chloride 111 H (96-108) mmol/L Carbon Dioxide 21 L (22-29) mmol/L Anion Gap 15 (12-20) BUN 18 H (9-16) mg/dL Creatinine 1.00 (0.5-1.4) mg/dL Estim Creat Clear Calc 52.7 Estimated GFR > 60 Random Glucose 94 (60-115) mg/dL Calcium 9.4 D (8.4-10.2) mg/dL Total Bilirubin 0.3 (0.0-1.0) mg/dL Direct Bilirubin 0.1 (0.0-0.5) mg/dL AST 25 (5-37) U/L ALT 18 (0-40) U/L Alkaline Phosphatase 63 (39-117) U/L Troponin I High Sens 7.7 (<3.5-35.0) ng/L B-Natriuretic Peptide (<100) pg/mL Total Protein 5.9 L (6.5-8.0) g/dL Albumin 3.6 (3.5-5.0) g/dL 09/07/22 Range/Units 04:57 WBC (4.8-10.8) X10*3/uL RBC (4.60-5.80) X10*6/uL Hgb (14.0-18.0) g/dl Hct (42.0-52.0) % MCV (80.0-98.0) fL MCH (27.0-33.0) pg MCHC (31.0-36.0) g/dl RDW (11.0-16.0) % Plt Count (160-400) X10*3/uL MPV (9.4-12.4) fL Immature Gran % (Auto) (0.0-0.4) % Neut % (Auto) (45-73) % Lymph % (Auto) (20-40) % Simpson % (Auto) (2-11) % Eos % (Auto) (0-4) % Baso % (Auto) (0-2) % Lymph # (Auto) (1.2-4.9) X10*3/uL Simpson # (Auto) (0.1-1.2) X10*3/uL Eos # (Auto) (0.0-0.4) X10*3/uL Baso # (Auto) (0.0-0.2) X10*3/uL Abs Immat Gran (auto) (0.00-0.03) X10*3/uL Absolute Neuts (auto) (2.0-8.3) x10*3/uL Absolute Nucleated RBC (0.0-0.012) X10*3/uL Nucleated RBC % (auto) (0.0-0.2) /100WBC Sodium (135-145) mmol/L Potassium (3.3-5.1) mmol/L Chloride (96-108) mmol/L Carbon Dioxide (22-29) mmol/L Anion Gap (12-20) BUN (9-16) mg/dL Creatinine (0.5-1.4) mg/dL Estim Creat Clear Calc Estimated GFR Random Glucose (60-115) mg/dL Calcium (8.4-10.2) mg/dL Total Bilirubin (0.0-1.0) mg/dL Direct Bilirubin (0.0-0.5) mg/dL AST (5-37) U/L ALT (0-40) U/L Alkaline Phosphatase (39-117) U/L Troponin I High Sens (<3.5-35.0) ng/L B-Natriuretic Peptide 124 H (<100) pg/mL Total Protein (6.5-8.0) g/dL Albumin (3.5-5.0) g/dL Critical Care Time Critical Care Time Critical Care Time: Yes Total Critical Care Time: 75 Attestation: I have personally provided critical care time. Time includes review of lab data, radiology results, discussion with consultants, and monitoring for potential decompensation. Intervention performed as documented. Discharge Plan Discharge Clinical Impression: History of recurrent TIAs, Hypertension, uncontrolled Patient Disposition: Admitted As Inpatient
[2022-09-07] MEDS: Labetalol HCL 100 MG TABLET PO ×2 (06:04→06:45)
[2022-09-07] MEDS: carvediloL 25 MG TABLET PO ×2 (06:46→20:53)
[2022-09-07] MEDS: Furosemide 40 MG TABLET PO (06:46)
[2022-09-07] MEDS: iohexoL 350 MG/ML 100 ML INFUS..BTL 70 ML IV (06:48)
--- NOTE | 2022-09-07 07:07 | PC.NURSE ---
pt a&ox3, all neuro in tact no facial droop. respirations even and unlabored, lung sounds clear bilaterally. skin appropriate for ethnicity. pt reports no pain. normal sinus paced on tele.
--- NOTE | 2022-09-07 10:12 | P.HPHOSP_ITS ---
History of Present Illness Date of Service: 09/07/22 Attending physician on admission: Elisa Bullock Chief Complaint: facial numbness 86-year-old gentleman with past medical history of prior CVA, paroxysmal atrial fibrillation on Xarelto, hypertension, GERD, hyperlipidemia, benign prostate hyperplasia presented to emergency room due to elevated blood pressure(patient blood pressure was in 180-200 range), in addition patient also had right-sided facial numbness and some leg weakness he could not clarify(as per ED note- documented left leg numbness or weakness). As per the patient he has these symptoms intermittent, he follows up with neurologist in [place] -? Says that he was given some medications for these symptom but does not remember the name, he said he tried it for 1-2 month but did not help. Currently patient says his symptoms are resolved and no symptoms now. Denies any new complaint of chest pain or shortness of breath or abdominal pain or fever or chills or nausea or vomiting Denies any cough In ED: H&H BUN 18 creatinine 1.0 BNP is 124 Troponin 7.7, EKG av paced rhythm. CT/CT angio head neck IMPRESSION: 1.? No evidence of acute intracranial hemorrhage or edematous territorial infarction. Mild to moderate underlying microangiopathy and generalized cerebral volume loss. 2.? CTA of the head and neck without proximal occlusion or flow-limiting stenosis. 3.? Moderate multilevel degenerative spondyloarthropathy of the cervical spine. Patient received labetalol and Coreg in the ED and Lasix. Blood pressure is improving to 140s Review of Systems Review of Systems: As above. [facility] Medical History Anemia Anxiety and depression BPH (benign prostatic hyperplasia) Chronic abdominal pain Constipation COPD (chronic obstructive pulmonary disease) Current use of anticoagulant therapy Diastolic CHF, acute on chronic Diverticulitis Frequency of micturition GERD (gastroesophageal reflux disease) Hearing loss History of COVID-19 History of CVA (cerebrovascular accident) (~2018) History of rib fracture History of TIA (transient ischemic attack) (~2021) Hypercholesterolemia Hypertension Hypertrophic cardiomyopathy Hypogammaglobulinemia Meningioma Obesity (BMI 30-39.9) Obstructive sleep apnea Pacemaker Paroxysmal atrial fibrillation Peripheral neuropathy Peripheral vascular disease Polyarthralgia Primary osteoarthritis of right knee Protrusion of lumbar intervertebral disc Tension headache Urinary incontinence Family History Father No problems noted. Mother Hx of type 1 diabetes mellitus Surgical History History of colonoscopy History of left knee replacement (~2007) History of pacemaker History of tonsillectomy History of total right hip replacement (~2017) History of transurethral resection of prostate Social History Household Members: Spouse Housing: Apartment Housing Other:: Home for the elderly Do you presently have visiting nurse or other home services: Yes Alcohol intake: never Patient Tobacco Use Status: Former Tobacco user Quit Date: 40 years ago Years Smoked: 30 yrs ago Second Hand Smoke Exposure: No Advance Directives: Yes Advance Directives on File: Yes Advance Directives Date on File: 04/06/20 service: No Current occupational status: unemployed and retired Current occupation: Right Handed Meds Allergies Allergy/AdvReac Type Severity Reaction Status Date / Time ezetimibe [From Zetia] Allergy Severe Anaphylaxis Verified 09/07/22 04:21 dabigatran etexilate Allergy Intermediate ITCHING Verified 09/07/22 04:21 [From PRADAXA] JORGE L Inhibitors Allergy Mild UNKNOWN, Verified 09/07/22 04:21 [Jorge L Inhibitors] FOUND IN MEDICAL RECORD 04/[address] GIPSON apixaban [From ELIQUIS] Allergy Unknown Rash Verified 09/07/22 04:21 rosuvastatin [Crestor] Allergy Unknown myalgia Verified 09/07/22 04:21 Active Medications: Current Medications Atorvastatin Calcium (Atorvastatin Calcium 80 Mg Tablet) 80 mg PO BEDTIME [facility] Carvedilol (Carvedilol 25 Mg Tablet) 25 mg PO BID [facility]; Protocol Docusate Sodium (Docusate Sodium 100 Mg Capsule) 200 mg PO DAILY [facility] Furosemide (Furosemide 40 Mg Tablet) 40 mg PO DAILY [facility]; Protocol Losartan Potassium (Losartan Potassium 50 Mg Tablet) 100 mg PO DAILY [facility]; Protocol Multivitamins/Vitamin C (Multivitamin Tablet) 1 tab PO DAILY [facility] Non-Formulary Medication (Bifidobacterium Infantis [Align]) 10.5 mg PO DAILY [facility] Non-Formulary Medication (Lactobacillus Acidophilus) 10,000 mmu cells PO DAILY [facility] Non-Formulary Medication (Pantoprazole) 40 mg PO DAILY@0630 [facility] Non-Formulary Medication (Potassium Chloride) 1 tab PO BID [facility] Pharmacy Consult (Consult Rx Perform Med Rec) 1 each MISCELLANE ONCE PRN PRN Reason: Consult order Polyethylene Glycol (Polyethylene Glycol 3350 17 Gm Powd.Pack) 17 gm PO DAILY [facility] Rivaroxaban (Rivaroxaban 20 Mg Tablet) 20 mg PO DAILY@1700 [facility] Senna (Sennosides 8.6 Mg Tablet) 8.6 mg PO DAILY [facility] Sucralfate (Sucralfate Oral Suspension 1 Gm/10 Ml Oral.Susp) gm PO BEDTIME [facility] Tamsulosin HCl (Tamsulosin Hcl 0.4 Mg Capsule) 0.4 mg PO DAILY [facility] Verapamil HCl (Verapamil Hcl Sr 180 Mg Tablet.Er) 180 mg PO DAILY [facility]; Protocol Home Medications Medication Instructions Recorded Confirmed Last Taken Type atorvastatin 80 mg tablet 80 mg PO BEDTIME 06/03/20 09/07/22 09/06/22 History carvedilol 25 mg tablet 25 mg PO BID 12/04/20 09/07/22 09/06/22 History potassium chloride 10 mEq 1 tab PO BID 11/14/21 09/07/22 09/06/22 History tablet,extended release orwtunoztlnj-uicvqszp-kjymyu tablet 1 tab PO DAILY 01/30/22 09/07/22 09/06/22 History pantoprazole 40 mg tablet,delayed 40 mg PO DAILY@0630 03/25/22 09/07/22 09/06/22 History release docusate sodium 100 mg capsule 100 mg PO BID 09/07/22 09/07/22 09/06/22 History sennosides 8.6 mg tablet (senna) 8.6 mg PO BEDTIME 09/07/22 09/07/22 09/06/22 History Physical Exam Vital Signs and Narrative: Vital Signs: Last Vital Signs Temp 98.2 F 09/07/22 07:00 Pulse 70 09/07/22 08:11 Resp 16 09/07/22 08:11 BP 140/48 H 09/07/22 08:11 Pulse Ox 97 09/07/22 07:00 O2 Del Method Room Air 09/07/22 07:00 BMI result Body Mass Index 36.6 Appearance: Alert.? Oriented X3.? not in distress.? Eyes: Pupils equal, round and reactive to light.? Sclera nonicteric.? ENT: Pharynx normal.? Moist mucous membranes. cvs: rrr, [id number] , no murmur res: clear to auscultation ,no rhonchii or wheezing abd: no rebound or guarding ,nt, bs present. ext pulses present , no cyanosis . neuro: axo3 , nonfocal. no weakness or numbness when seen . Results Labs 09/07/22 04:57 09/07/22 04:57 Labs: Laboratory Results - last 24 hr 09/07/22 09/07/22 09/07/22 04:57 04:57 04:57 MCV 86.3 MCH 26.8 L MCHC 31.1 RDW 14.6 Plt Count 183 MPV 9.8 Immature Gran % (Auto) 0.3 Neut % (Auto) 58.2 Lymph % (Auto) 28.3 [place] % (Auto) 10.2 Eos % (Auto) 2.6 Baso % (Auto) 0.4 Lymph # (Auto) 2.1 [place] # (Auto) 0.8 Eos # (Auto) 0.2 Baso # (Auto) 0.0 Abs Immat Gran (auto) 0.02 Absolute Neuts (auto) 4.3 Absolute Nucleated RBC 0.000 Nucleated RBC % (auto) 0.0 Anion Gap 15 Estim Creat Clear Calc 52.7 Estimated GFR > 60 Random Glucose 94 Calcium 9.4 D Total Bilirubin 0.3 Direct Bilirubin 0.1 AST 25 ALT 18 Alkaline Phosphatase 63 Troponin I High Sens 7.7 B-Natriuretic Peptide Total Protein 5.9 L Albumin 3.6 09/07/22 04:57 MCV MCH MCHC RDW Plt Count MPV Immature Gran % (Auto) Neut % (Auto) Lymph % (Auto) [place] % (Auto) Eos % (Auto) Baso % (Auto) Lymph # (Auto) [place] # (Auto) Eos # (Auto) Baso # (Auto) Abs Immat Gran (auto) Absolute Neuts (auto) Absolute Nucleated RBC Nucleated RBC % (auto) Anion Gap Estim Creat Clear Calc Estimated GFR Random Glucose Calcium Total Bilirubin Direct Bilirubin AST ALT Alkaline Phosphatase Troponin I High Sens B-Natriuretic Peptide 124 H Total Protein Albumin Imaging Radiologist's Impressions: Impressions Head/Neck CTA 09/07/22 06:30 IMPRESSION: 1. No evidence of acute intracranial hemorrhage or edematous territorial infarction. Mild to moderate underlying microangiopathy and generalized cerebral volume loss. 2. CTA of the head and neck without proximal occlusion or flow-limiting stenosis. 3. Moderate multilevel degenerative spondyloarthropathy of the cervical spine. Assessment and Plan (1) Brain TIA: Status: Acute (2) Hypertensive urgency: Status: Acute Plan 86-year-old gentleman with past medical history of prior CVA, paroxysmal atrial fibrillation on Xarelto, hypertension, GERD, hyperlipidemia, benign prostate hyperplasia presented to emergency room due to elevated blood pressure(patient blood pressure was in 180-200 range), in addition patient also had right-sided facial numbness and some leg weakness he could not clarify(as per ED note- documented left leg numbness or weakness). ? tia vs htn urgency related Monitor on tele, neuro checks CTA seems negative as above. Neuro evaluation htn urgency: received labetalol/coreg in ED. bp improving,tele continue home meds Afib , paroxysmal Continue carvedilol and Xarelto HTN Elevated blood pressure likely secondary to pain Continue losartan, verapamil PVD/HLD Aspirin and statin History of heart failure with preserved ejection fraction No exacerbation Continue Lasix, verapamil COPD No exacerbation Albuterol as needed BPH Tamsulosin dvt prophylax:on Xraelto patient need stay for close blood pressure monitoring-if needed blood pressure med adjustment, and neurology workup and input. Time Spent With Patient Time: Total time managing care of this patient today ____ minutes. Quality Stroke Does the patient have a stroke diagnosis?: No VTE Prior VTE?: No VTE Risk Level:: Medical - moderate - high VTE Device Contraindication: N/A - Device Ordered VTE Drug Contraindication: N/A - Med Ordered
--- NOTE | 2022-09-07 10:32 | PHA.MEDREC ---
Pharmacy Consult ? Medication Reconciliation Pharmacy has completed the medication reconciliation. Spoke to patient to confirm meds.
--- NOTE | 2022-09-07 15:39 | PC.NURSE ---
report given to [facility] nurse.
[2022-09-07] MEDS: Rivaroxaban 20 MG TABLET PO (16:22)
[2022-09-07] MEDS: 0.9 % Sodium Chloride Flush 3 ML SYRINGE IVFLUSH ×2 (16:23→20:53)
[2022-09-07] MEDS: Acetaminophen 325 MG TABLET 650 MG PO (17:52)
[2022-09-07] MEDS: Atorvastatin Calcium 80 MG TABLET PO (20:53)
[2022-09-07] MEDS: Sucralfate Oral Suspension 1 GM/10 ML ORAL.SUSP PO (20:53)
[2022-09-07] MEDS: Potassium Chloride ER 10 MEQ TABLET.ER PO (20:53)
[2022-09-07] MEDS: Acetaminophen 325 MG TABLET PO (21:53)
[2022-09-08 03:31] VITALS: BP 150/83; PULSE 62; RESP 18; TEMP 37.3; O2SAT 97
[2022-09-08] MEDS: Omeprazole 20 MG CAPSULE.DR PO (05:48)
[2022-09-08 07:04] VITALS: BP 149/80; PULSE 60; RESP 18; TEMP 36.4; O2SAT 97
[2022-09-08] MEDS: Losartan Potassium 50 MG TABLET 100 MG PO (07:52)
[2022-09-08] MEDS: carvediloL 25 MG TABLET PO (07:52)
[2022-09-08] MEDS: polyethylene glycoL 3350 17 GM POWD.PACK PO (07:52)
[2022-09-08] MEDS: VerapamiL HCL SR 180 MG TABLET.ER PO (07:52)
[2022-09-08] MEDS: Multivitamin TABLET 1 TAB PO (07:52)
[2022-09-08] MEDS: Docusate Sodium 100 MG CAPSULE PO (07:52)
[2022-09-08] MEDS: Sennosides 8.6 MG TABLET PO (07:52)
[2022-09-08] MEDS: Aspirin Enteric Coated 81 MG TABLET.DR PO (07:52)
[2022-09-08] MEDS: Potassium Chloride ER 10 MEQ TABLET.ER PO (07:53)
[2022-09-08] MEDS: Tamsulosin HCL 0.4 MG CAPSULE PO (07:53)
[2022-09-08] MEDS: Furosemide 40 MG TABLET PO (07:53)
[2022-09-08] MEDS: 0.9 % Sodium Chloride Flush 3 ML SYRINGE IVFLUSH (07:54)
[2022-09-08] MEDS: Fluticasone/Vilanterol 200/25 BLST.W.DEV 1 PUFF INHALE (09:04)
[2022-09-08 09:06] VITALS: PULSE 75; RESP 16; O2SAT 96
--- NOTE | 2022-09-08 09:47 | MHC.CM.PN ---
MARE 09/08. Pt on observation with facial numbness. Pt lives at home with his , he uses a walker and a cane. HCP on file/verified. D/C plan pending neuro eval, but home self-care is the goal. Pt will need assistance with transportation. PCP: LE Mercedes vax: [phone]
[2022-09-08 10:10] VITALS: BP 160/80; PULSE 62; O2SAT 97
--- NOTE | 2022-09-08 10:31 | P.CNNE_ITS ---
History of Present Illness Data of Consult Service Date: 09/08/22 Primary Care Provider: Unknown Physician HPI Reason for consult: Facial numbness 86 years old man with underlying history of atrial fibrillation and hypertension came to hospital with headache and uncontrolled blood pressure. Systolic blood pressure was 200 and he was having headache with right-sided facial numbness and left-sided leg numbness. This morning his numbness symptoms were resolved and headache was resolved. There was no other symptom. Review of Systems Review of Systems: No recent cold or flu-like illness or trauma. [facility] Past Medical History Medical History Anemia Anxiety and depression BPH (benign prostatic hyperplasia) Chronic abdominal pain Constipation COPD (chronic obstructive pulmonary disease) Current use of anticoagulant therapy Diastolic CHF, acute on chronic Diverticulitis Frequency of micturition GERD (gastroesophageal reflux disease) Hearing loss History of COVID-19 History of CVA (cerebrovascular accident) (~2018) History of rib fracture History of TIA (transient ischemic attack) (~2021) Hypercholesterolemia Hypertension Hypertrophic cardiomyopathy Hypogammaglobulinemia Meningioma Obesity (BMI 30-39.9) Obstructive sleep apnea Pacemaker Paroxysmal atrial fibrillation Peripheral neuropathy Peripheral vascular disease Polyarthralgia Primary osteoarthritis of right knee Protrusion of lumbar intervertebral disc Tension headache Urinary incontinence Family History Family History Father No problems noted. Mother Hx of type 1 diabetes mellitus Surgical History Surgical History History of colonoscopy History of left knee replacement (~2007) History of pacemaker History of tonsillectomy History of total right hip replacement (~2016) History of transurethral resection of prostate Social History Social History Household Members: Spouse Housing: Apartment Housing Other:: Home for the elderly Do you presently have visiting nurse or other home services: Yes Alcohol intake: never Patient Tobacco Use Status: Never used Tobacco Years Smoked: 30 yrs ago Second Hand Smoke Exposure: No Advance Directives Date on File: 04/06/20 service: No Current occupational status: unemployed and retired Current occupation: Right Handed Meds Allergies Allergy/AdvReac Type Severity Reaction Status Date / Time ezetimibe [From Zetia] Allergy Severe Anaphylaxis Verified 09/07/22 04:21 dabigatran etexilate Allergy Intermediate ITCHING Verified 09/07/22 04:21 [From PRADAXA] JORGE L Inhibitors Allergy Mild UNKNOWN, Verified 09/07/22 04:21 [Jorge L Inhibitors] FOUND IN MEDICAL RECORD 04/08 BY PCP PO apixaban [From ELIQUIS] Allergy Unknown Rash Verified 09/07/22 04:21 rosuvastatin [Crestor] Allergy Unknown myalgia Verified 09/07/22 04:21 Active Medications: Current Medications Acetaminophen (Acetaminophen 325 Mg Tablet) 650 mg PO Q6H PRN PRN Reason: Pain, Mild (Pain Scale 1-3) Last Admin: 09/07/22 17:52 Dose: 650 mg Aspirin (Aspirin Enteric Coated 81 Mg Tablet.) 81 mg PO DAILY [facility] Last Admin: 09/08/22 07:52 Dose: 81 mg Atorvastatin Calcium (Atorvastatin Calcium 80 Mg Tablet) 80 mg PO BEDTIME [facility] Last Admin: 09/07/22 20:53 Dose: 80 mg Carvedilol (Carvedilol 25 Mg Tablet) 25 mg PO BID [facility]; Protocol Last Admin: 09/08/22 07:52 Dose: 25 mg Docusate Sodium (Docusate Sodium 100 Mg Capsule) 100 mg PO BID [facility] Last Admin: 09/08/22 07:52 Dose: 100 mg Docusate Sodium (Docusate Sodium 100 Mg Capsule) 100 mg PO BID [facility] Last Admin: 09/08/22 08:05 Dose: Not Given Fluticasone/Vilanterol (Fluticasone/Vilanterol 200/25 Blst.W.Dev) 1 puff INHALE RDAILY [facility] Last Admin: 09/08/22 09:04 Dose: 1 puff Furosemide (Furosemide 40 Mg Tablet) 40 mg PO DAILY [facility]; Protocol Last Admin: 09/08/22 07:53 Dose: 40 mg Losartan Potassium (Losartan Potassium 50 Mg Tablet) 100 mg PO DAILY [facility]; Protocol Last Admin: 09/08/22 07:52 Dose: 100 mg Multivitamins/Vitamin C (Multivitamin Tablet) 1 tab PO DAILY [facility] Last Admin: 09/08/22 07:52 Dose: 1 tab Omeprazole (Omeprazole 20 Mg Capsule.) 20 mg PO DAILY@0630 [facility] Last Admin: 09/08/22 05:48 Dose: 20 mg Pharmacy Consult (Consult Rx Perform Med Rec) 1 each MISCELLANE ONCE PRN PRN Reason: Consult order Polyethylene Glycol (Polyethylene Glycol 3350 17 Gm Powd.Pack) 17 gm PO DAILY [facility] Last Admin: 09/08/22 07:52 Dose: 17 gm Potassium Chloride (Potassium Chloride Er 10 Meq Tablet.Er) 1 meq PO BID [facility] Last Admin: 09/08/22 07:53 Dose: 1 meq Rivaroxaban (Rivaroxaban 20 Mg Tablet) 20 mg PO DAILY@1700 [facility] Last Admin: 09/07/22 16:22 Dose: 20 mg Senna (Sennosides 8.6 Mg Tablet) 8.6 mg PO DAILY PRN PRN Reason: Constipation Senna (Sennosides 8.6 Mg Tablet) 8.6 mg PO BEDTIME [facility] Last Admin: 09/08/22 07:52 Dose: 8.6 mg Sodium Chloride (0.9 % Sodium Chloride Flush 3 Ml Syringe) 3 ml IVFLUSH QSHIFT [facility] Last Admin: 09/08/22 07:54 Dose: 3 ml Sucralfate (Sucralfate Oral Suspension 1 Gm/10 Ml Oral.Susp) 1 gm PO BEDTIME [facility] Last Admin: 09/07/22 20:53 Dose: 1 gm Tamsulosin HCl (Tamsulosin Hcl 0.4 Mg Capsule) 0.4 mg PO DAILY [facility] Last Admin: 09/08/22 07:53 Dose: 0.4 mg Verapamil HCl (Verapamil Hcl Sr 180 Mg Tablet.Er) 180 mg PO DAILY [facility]; Protocol Last Admin: 09/08/22 07:52 Dose: 180 mg Home Medications Medication Instructions Recorded Confirmed Last Taken Type atorvastatin 80 mg tablet 80 mg PO BEDTIME 06/03/20 09/07/22 09/06/22 History carvedilol 25 mg tablet 25 mg PO BID 12/04/20 09/07/22 09/06/22 History potassium chloride 10 mEq 1 tab PO BID 11/14/21 09/07/22 09/06/22 History tablet,extended release ikqfpvywjhlt-vulaoork-xjrwej tablet 1 tab PO DAILY 01/30/22 09/07/22 09/06/22 History pantoprazole 40 mg tablet,delayed 40 mg PO DAILY@0630 03/25/22 09/07/22 09/06/22 History release docusate sodium 100 mg capsule 100 mg PO BID 09/07/22 09/07/22 09/06/22 History sennosides 8.6 mg tablet (senna) 8.6 mg PO BEDTIME 09/07/22 09/07/22 09/06/22 History Physical Exam Vital Signs: Vital Signs: Last Vital Signs Temp 97.6 F 09/08/22 07:04 Pulse 75 09/08/22 09:06 Resp 16 09/08/22 09:06 BP 149/80 H 09/08/22 07:04 Pulse Ox 97 09/08/22 07:04 O2 Del Method Room Air 09/08/22 07:04 BMI result Body Mass Index 37.0 Neuro: Other: He is alert and awake with normal spontaneity of speech fluency comprehension and affect. Teeth are missing affecting his speech. Face is symmetrical. There is mild right pronator drift. Deep tendon reflexes are absent. Visual leung are full. Results Labs 09/07/22 04:57 09/07/22 04:57 Labs: Head CT revealed mild microvascular ischemic changes with no acute lesion. CTA did not reveal any large vessel disease. Assessment and Plan (1) Hypertensive urgency: Status: Acute 86 years old man with uncontrolled hypertension and symptoms suggestive of microvascular transient ischemic attack now blood pressure was better and he was doing better. He is already anticoagulated for atrial fibrillation. Mainstay of management is blood pressure control. At this time, no additional blood thi nner is recommended. Time Spent With Patient Time: Total time managing care of this patient today ____ minutes. Procedures Date of Service Date of Service: 09/08/22
[2022-09-08 11:07] VITALS: BP 160/80; PULSE 62; RESP 20; TEMP 36.2; O2SAT 97
--- NOTE | 2022-09-08 11:20 | P.DS_ITS ---
DS: Providers Provider Date of Service: 09/08/22 Date of admission: 09/07/22 10:10 Primary care physician: Unknown Physician Consults: 09/07/22 10:10 Consult to Neurology Routine Consulting Provider: [facility] Reason for consultation: ?tia Has provider been notified: No DS: Diagnosis Discharge Diagnosis (1) Hypertensive urgency: Status: Acute DS: Summary Hospital Course Hospital Course: 86-year-old gentleman with past medical history of prior CVA, paroxysmal atrial fibrillation on Xarelto, hypertension, GERD, hyperlipidemia, benign prostate hyperplasia presented to emergency room due to elevated blood pressure(patient blood pressure was in 180-200 range), in addition patient also had right-sided facial numbness and some leg weakness he could not clarify(as per ED note- documented left leg numbness or weakness). As per the patient he has these symptoms intermittent, he follows up with neurologist in [place] -?? Says that he was given some medications for these symptom but does not remember the name, he said he tried it for 1-2 month but did not help.? Currently patient says his symptoms are resolved and no symptoms now. Denies any new complaint of chest pain or shortness of breath or abdominal pain or fever or chills or nausea or vomiting Denies any cough In ED: H&H BUN 18 creatinine 1.0 BNP is 124 Troponin 7.7, EKG av paced rhythm. CT/CT angio head neck IMPRESSION: 1.? No evidence of acute intracranial hemorrhage or edematous territorial infarction. Mild to moderate underlying microangiopathy and generalized cerebral volume loss. 2.? CTA of the head and neck without proximal occlusion or flow-limiting stenosis. 3.? Moderate multilevel degenerative spondyloarthropathy of the cervical spine. Patient received labetalol and Coreg in the ED and Lasix. Blood pressure is improving to 140s. Hsopital course: Patient was admitted for patient facial numbness and uncontrolled hypertension: Patient seems to be feeling better after the blood pressure is improving. Currently blood pressure is acceptable with home medications-discussed with patient in detail to continue home blood pressure medication regimen and monitor blood pressure closely at home. Seen by Neurology-initial symptoms seems to be hypertension related-his blood pressure still in 140-160 range, we added amlodipine upon discharge. Patient was strongly advised to monitor blood pressure at home. Above management discussed the patient detail length he understand and in agreement with the plan. Time spent 50 minute. Time Spent with Patient Time attestation: Total time managing care of this patient today ____ minutes. Discharge coordination time: Greater than 30 minutes Quality: Safe Use of Opioids Does Pt have an Active Cancer Diagnosis on the Problem List?: No Quality: Stroke Does the patient have a stroke diagnosis?: No Physical Exam Vital Signs: Vital Signs: Last Vital Signs Temp 97.2 F 09/08/22 11:07 Pulse 62 09/08/22 11:07 Resp 20 09/08/22 11:07 BP 160/80 H 09/08/22 11:07 Pulse Ox 97 09/08/22 11:07 O2 Del Method Room Air 09/08/22 11:07 BMI result Body Mass Index 37.0 Appearance: Alert.? Oriented X3.? not in distress.? cvs: rrr, [id number] , no murmur res: clear to auscultation ,no rhonchii or wheezing abd: no rebound or guarding ,nt, bs present. ext pulses present , no cyanosis . neuro: axo3 , nonfocal. no weakness or numbness when seen? DS: Data Data Completed and Pending Completed studies during hospitalization [Text1]: Procedures Insertion of Endotracheal Airway into Trachea, Via Natural or Artificial Opening Endoscopic (04/01/20) Insertion of Infusion Device into Superior Vena Cava, Percutaneous Approach (04/01/20) Insertion of Pacemaker Lead into Right Atrium, Percutaneous Approach (03/25/22) Insertion of Pacemaker Lead into Right Ventricle, Percutaneous Approach (03/25/22) Insertion of Pacemaker, Dual Chamber into Chest Subcutaneous Tissue and Fascia, Open Approach (03/25/22) Introduction of Remdesivir Anti-infective into Peripheral Vein, Percutaneous Approach, [employer] (04/01/20) Respiratory Ventilation, Greater than 96 Consecutive Hours (04/01/20) Transfusion of Convalescent Plasma (Nonautologous) into Peripheral Vein, Percutaneous Approach, [employer] 5 (04/01/20) Ultrasonography of Superior Vena Cava, Guidance (04/01/20) Imaging Chest x-ray: Radiologist's impression: ITS Impressions Head/Neck CTA 09/07/22 06:30 IMPRESSION: 1. No evidence of acute intracranial hemorrhage or edematous territorial infarction. Mild to moderate underlying microangiopathy and generalized cerebral volume loss. 2. CTA of the head and neck without proximal occlusion or flow-limiting stenosis. 3. Moderate multilevel degenerative spondyloarthropathy of the cervical spine. Discharge Plan Discharge Anticipated Discharge Date/Time: 09/08/22 10:31 Patient Disposition: Home, Self-Care Discharge Diagnosis: facial numbness , htn urgency Referrals: Physician,Unknown J [Primary Care Provider] - 1 Week Discharge Medications: New amlodipine 2.5 mg tablet 2.5 mg PO DAILY Qty: 30 0RF Continued Breo Ellipta 200-25 mcg/dose blister with device 1 ea inhalation DAILY Qty: 60 2RF tamsulosin 0.4 mg capsule 0.4 mg PO DAILY 90 Days Qty: 90 3RF verapamil 180 mg capsule,ext rel. pellets 24 hr 180 mg PO DAILY Qty: 90 3RF losartan 100 mg tablet 100 mg PO DAILY Qty: 90 0RF furosemide 40 mg tablet 40 mg PO DAILY Qty: 90 1RF Xarelto 20 mg tablet 20 mg PO DAILY@1700 Qty: 90 3RF atorvastatin 80 mg tablet 80 mg PO BEDTIME potassium chloride 10 mEq tablet extended release 1 tab PO BID pantoprazole 40 mg tablet,delayed release (DR/EC) 40 mg PO DAILY@0630 isxybyxmpyqt-whajlmnp-odkquc Tablet 1 tab PO DAILY aspirin 81 mg capsule 81 mg PO DAILY Qty: 30 0RF docusate sodium 100 mg capsule 100 mg PO BID sennosides [senna] 8.6 mg tablet 8.6 mg PO BEDTIME carvedilol 25 mg tablet 25 mg PO BID sucralfate 100 mg/mL suspension 10 ml PO BEDTIME Qty: 400 3RF polyethylene glycol 3350 [Miralax] 17 gram/dose powder 17 g PO DAILY Qty: 510 2RF Discharge Orders: Discharge Order (Routine); Ordered 09/08/22 Ordered By: Elisa Bullock Diet: Advance to usual diet Activity on Discharge: As tolerated Stand Alone Forms: Patient Portal Discharge page Care Plan Goals: Patient was admitted for patient facial numbness and uncontrolled hypertension: Patient seems to be feeling better after the blood pressure is improving. Currently blood pressure is acceptable with home medications-discussed with patient in detail to continue home blood pressure medication regimen and monitor blood pressure closely at home. Seen by Neurology-initial symptoms seems to be hypertension related-his blood pressure still in 140-160 range, we added amlodipine upon discharge. Patient was strongly advised to monitor blood pressure at home. Health Concerns: As above. Plan of Treatment: As above. Assessment: as above. Patient Instructions: Chronic Hypertension (DC)
[2022-09-08] MEDS: amLODIPine Besylate 2.5 MG TABLET PO (12:28)
[2022-09-08 13:35] VITALS: BP 116/55
== END 2022-09-08 16:00 | disposition home or self-care (01) ==
LOC: HO.ED 07:09 → HO.EDOVER 10:15 → HO.IMC 14:54
PROVIDERS: Emergency Medicine; Admitting Provider Internal Medicine; Emergency Provider Student in an Organized Health Care Education/Training Program; PCP Registered Nurse; Visit Provider Internal Medicine
DX: I16.0 Hypertensive urgency (principal); R53.1 Weakness; R20.0 Anesthesia of skin; I48.0 Paroxysmal atrial fibrillation; N40.0 Benign prostatic hyperplasia without lower urinary tract symptoms; I11.0 Hypertensive heart disease with heart failure; I50.33 Acute on chronic diastolic (congestive) heart failure; Z86.73 Personal history of transient ischemic attack (TIA), and cerebral infarction without residual deficits; Z79.899 Other long term (current) drug therapy; Z79.01 Long term (current) use of anticoagulants; J44.9 Chronic obstructive pulmonary disease, unspecified
CPT/HCPCS: 36415; 70496; 70498; 80048; 80076; 83880; 84484; 85025; 93005; 94640; 97161; 99222; 99285; Q9967

== ENCOUNTER → 2022-09-07 04:35 | Outpatient (BNV) | payer OTHER, SELFPAY | PROVIDERS: Admitting Provider Internal Medicine; Emergency Provider Student in an Organized Health Care Education/Training Program; Visit Provider Internal Medicine Cardiovascular Disease | DX: R94.31 Abnormal electrocardiogram [ECG] [EKG] (principal) | CPT/HCPCS: 93010 ==

== ENCOUNTER → 2022-09-07 10:10 | Outpatient (BNV) | payer OTHER, SELFPAY | PROVIDERS: Admitting Provider Internal Medicine; Emergency Provider Student in an Organized Health Care Education/Training Program; Visit Provider Internal Medicine | DX: G45.9 Transient cerebral ischemic attack, unspecified (principal); I16.0 Hypertensive urgency | CPT/HCPCS: 99222; 99239 ==

== ENCOUNTER 2022-09-11 11:53 | Outpatient (REF) | payer OTHER, SELFPAY ==
[2022-09-11 12:27] LABS: MANUAL DIFF FLAG NO
[2022-09-11 12:31] LABS: Basophils Percent Auto 0.4 % (0-2); Eosinophils Absolute Auto 0.2 X10*3/uL (0.0-0.4); Eosinophils Percent Auto 2.4 % (0-4); Hematocrit 34.1 % (42.0-52.0); Hemoglobin 10.6 g/dl (14.0-18.0); Imm Gran Abs Auto 0.02 X10*3/uL (0.00-0.03); Imm Gran Pct Auto 0.2 % (0.0-0.4); Lymphocytes Absolute Auto 2.4 X10*3/uL (1.2-4.9); Mean Corpuscular HGB Conc 31.1 g/dl (31.0-36.0); Mean Corpuscular Hemoglobin 27.2 pg (27.0-33.0); Mean Corpuscular Volume 87.7 fL (80.0-98.0); Mean Platelet Volume 9.4 fL (9.4-12.4); Monocytes Absolute Auto 0.7 X10*3/uL (0.1-1.2); Monocytes Percent Auto 7.7 % (2-11); Neutrophils Absolute Auto 5.6 x10*3/uL (2.0-8.3); Neutrophils Percent Auto 62.3 % (45-73); Platelet Count 215 X10*3/uL (160-400); Red Blood Count 3.89 X10*6/uL (4.60-5.80); Red Cell Distribution Width 14.6 % (11.0-16.0); White Blood Count 8.9 X10*3/uL (4.8-10.8)
[2022-09-11 13:37] LABS: Erythrocyte Sedimentation Rate 44 MM/HR (0-15)
[2022-09-11 13:49] LABS: C Reactive Protein 0.47 mg/dL (< or = 0.50)
== END 2022-09-11 11:54 | disposition home or self-care (01) ==
LOC: HO.LAB 11:53
PROVIDERS: PCP Registered Nurse; Visit Provider Physician Assistant
DX: Z96.651 Presence of right artificial knee joint (principal)
CPT/HCPCS: 36415; 85025; 85652; 86140

== ENCOUNTER 2022-09-22 16:00 | Emergency (ER) | payer OTHER, SELFPAY ==
[2022-09-22 16:16] VITALS: BP 102/77; PULSE 64; RESP 18; TEMP 36.8; O2SAT 99; BMI 36.6
--- NOTE | 2022-09-22 16:35 | ED_ITS ---
HPI - General Adult General Chief complaint: Dizziness Stated complaint: sent from quita russell of dizziness Related Data Home Medications ?Medication ?Instructions ?Recorded ?Confirmed atorvastatin 80 mg tablet 80 mg PO BEDTIME 06/03/20 12/06/22 carvedilol 25 mg tablet 25 mg PO BID 12/04/20 12/06/22 potassium chloride 10 mEq 1 tab PO BID 11/14/21 12/06/22 tablet,extended release fluticasone furoate 200 1 inh inhalation DAILY 12/06/22 12/06/22 mcg-vilanterol 25 mcg/dose inhalation powder (Breo Ellipta) ferrous sulfate 325 mg (65 mg 325 mg PO DAILY 12/07/22 12/07/22 iron) tablet (FeroSul) fluticasone propionate 50 1 spray intranasal DAILY PRN 12/07/22 12/07/22 mcg/actuation nasal Allergy Symptoms spray,suspension losartan 50 mg tablet 50 mg PO DAILY 12/07/22 12/07/22 multivitamin 1 tab PO DAILY 12/07/22 12/07/22 hcdzeslq-lzv-vpujz acid 0.4 tab PO 01/14/23 mg-lycopene 300 mcg-lutein 250 mcg tablet (CertaVite Senior) aspirin 81 mg tablet,delayed 81 mg PO DAILY 08/17/23 release ketorolac 0.5 % eye drops drp ophthalmic (eye) 08/17/23 levocetirizine 5 mg tablet 5 mg PO DAILY 08/17/23 losartan 25 mg tablet 25 mg PO DAILY 08/17/23 methylprednisolone 8 mg tablet mg PO 08/17/23 verapamil 120 mg tablet,extended 120 mg PO DAILY 08/17/23 release Previous Rx's ?Medication ?Instructions ?Recorded tamsulosin 0.4 mg capsule 0.4 mg PO DAILY 90 days #90 caps 03/29/21 furosemide 40 mg tablet 40 mg PO DAILY #30 tabs 12/05/22 levofloxacin 500 mg tablet 500 mg PO DAILY #8 tabs 12/07/22 molnupiravir 200 mg capsule (EUA) 800 mg (4 x 200 mg) PO Q12H 5 days 04/10/23 #40 caps sucralfate 100 mg/mL oral 10 ml PO BEDTIME #400 mL 05/15/23 suspension docusate sodium 100 mg capsule 100 mg PO BID #60 caps 05/20/23 rivaroxaban 20 mg tablet (Xarelto) 20 mg PO QPM #28 tabs 06/19/23 amoxicillin 875 mg-potassium 1 tab PO BID 10 days #20 tabs 07/28/23 clavulanate 125 mg tablet pantoprazole 40 mg tablet,delayed 40 mg PO DAILY@0630 #30 tabs 08/17/23 release sennosides 8.6 mg tablet (senna) 8.6 mg PO BEDTIME #30 tabs 08/17/23 Allergies Allergy/AdvReac Type Severity Reaction Status Date / Time ezetimibe [From Zetia] Allergy Severe Anaphylaxis Verified 08/17/23 12:59 dabigatran etexilate Allergy Intermediate ITCHING Verified 08/17/23 12:59 [From PRADAXA] JORGE L Inhibitors Allergy Mild UNKNOWN, Verified 08/17/23 12:59 [Jorge L Inhibitors] FOUND IN MEDICAL RECORD 04/[address] GIPSON apixaban [From ELIQUIS] Allergy Unknown Rash Verified 08/17/23 12:59 rosuvastatin [Crestor] Allergy Unknown myalgia Verified 08/17/23 12:59 [facility] Past Medical History Medical History Stasis leg ulcer Pacemaker History of TIA (transient ischemic attack) (~2021) History of COVID-19 Tension headache Meningioma Hypertrophic cardiomyopathy Hearing loss Diastolic CHF, 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 Frequency of micturition Chronic abdominal pain Peripheral neuropathy Constipation Diverticulitis Polyarthralgia Primary osteoarthritis of right knee Urinary incontinence History of CVA (cerebrovascular accident) (~2018) Protrusion of lumbar intervertebral disc History of rib fracture Peripheral vascular disease GERD (gastroesophageal reflux disease) Obstructive sleep apnea BPH (benign prostatic hyperplasia) Anxiety and depression Paroxysmal atrial fibrillation COPD (chronic obstructive pulmonary disease) Obesity (BMI 30-39.9) Hypercholesterolemia Hypertension Anemia Current use of anticoagulant therapy Surgical History History of pacemaker History of colonoscopy History of total right hip replacement (~2016) History of transurethral resection of prostate History of tonsillectomy History of left knee replacement (~2007) Family History Family History Father No problems noted. 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 86-year-old male presents with dizziness and visual disturbances for the past 2 days intermittent in nature, never happened to him before. Patient is currently on aspirin and rivaroxaban, he states right now he feels okay other than intermittent dizziness described as room spinning. Last known well time 2 days ago. Outside of stroke window. Low suspicion for stroke. Concerns for vertigo. Unlikely posterior stroke. CT head, CT angio head and neck, basic labs. Discharge Plan Discharge Clinical Impression: Eloped from emergency department Patient Disposition: Elopement Prescriptions: No Action tamsulosin 0.4 mg capsule 0.4 mg PO DAILY 90 Days Qty: 90 3RF furosemide 40 mg tablet 40 mg PO DAILY Qty: 30 5RF docusate sodium 100 mg capsule 100 mg PO BID Qty: 60 5RF Xarelto 20 mg tablet 20 mg PO QPM Qty: 28 5RF atorvastatin 80 mg tablet 80 mg PO BEDTIME potassium chloride 10 mEq tablet extended release 1 tab PO BID fluticasone furoate-vilanterol [Breo Ellipta] 200-25 mcg/dose Blister With Device 1 inh INHALATION DAILY multivitamin Tablet 1 tab PO DAILY losartan 50 mg tablet 50 mg PO DAILY ferrous sulfate [FeroSul] 325 mg (65 mg iron) tablet 325 mg PO DAILY fluticasone propionate 50 mcg/actuation spray,suspension 1 spray intranasal DAILY PRN (Reason: Allergy Symptoms) levofloxacin 500 mg tablet 500 mg PO DAILY Qty: 8 0RF molnupiravir 200 mg capsule 800 mg PO Q12H 5 Days Qty: 40 0RF amoxicillin-pot clavulanate 875-125 mg tablet 1 tab PO BID 10 Days Qty: 20 0RF carvedilol 25 mg tablet 25 mg PO BID CertaVite Senior 0.4 mg-300 mcg- 250 mcg tablet PO sucralfate 100 mg/mL suspension 10 ml PO BEDTIME Qty: 400 3RF losartan 25 mg tablet 25 mg PO DAILY ketorolac 0.5 % drops ophthalmic (eye) levocetirizine 5 mg tablet 5 mg PO DAILY aspirin 81 mg tablet,delayed release (DR/EC) 81 mg PO DAILY verapamil 120 mg tablet extended release 120 mg PO DAILY methylprednisolone 8 mg tablet PO pantoprazole 40 mg tablet,delayed release (DR/EC) 40 mg PO DAILY@0630 Qty: 30 3RF sennosides [senna] 8.6 mg tablet 8.6 mg PO BEDTIME Qty: 30 4RF Interventions: ED Discharge Assessment Last Done: 09/22/22 23:37 Discharge Date/Time: 09/22/22 23:38 Print Language: Amharic
== END 2022-09-22 23:38 | disposition left against medical advice (07) ==
PROVIDERS: Emergency Provider Internal Medicine
DX: R42 Dizziness and giddiness (principal); I11.0 Hypertensive heart disease with heart failure; I50.9 Heart failure, unspecified; I48.0 Paroxysmal atrial fibrillation; E78.00 Pure hypercholesterolemia, unspecified; Z95.0 Presence of cardiac pacemaker; Z86.73 Personal history of transient ischemic attack (TIA), and cerebral infarction without residual deficits; Z79.01 Long term (current) use of anticoagulants; Z79.899 Other long term (current) drug therapy; Z79.82 Long term (current) use of aspirin
CPT/HCPCS: 99281; 99282

== ENCOUNTER 2022-09-23 11:36 | Outpatient (AMB) | payer OTHER, SELFPAY ==
--- NOTE | 2022-09-23 11:46 | A.OFFVIS_ITS ---
Intake Vital Signs 09/23/22 11:50 Height 5 ft 2 in Weight 206 lb 12.697 oz BMI 37.8 BP 110/56 L Blood Pressure Location Lt brachial Position Sitting Pulse 60 Intake Visit Reasons: 6 week follow up Intake Note: Pal presents in office as a est.patient for a 6weeks f/u for abdominal pain. 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 GIPSON apixaban [From ELIQUIS] Allergy (Unknown, Verified 09/23/22 11:56) Rash rosuvastatin [Crestor] Allergy (Unknown, Verified 09/23/22 11:56) myalgia HPI 6 week follow up HPI Details LAST VISIT: (1) Abdominal pain: ?Code(s): R10.9 - Unspecified abdominal pain ?Qualifiers: ?Abdominal location:?left lower quadrant? Qualified Code(s):?R10.32 - Left lower quadrant pain ?Plan: Chronic occasional abdominal discomfort.? Patient reports that he had pain on Thursday, pain lasted only for few minutes.? Cramping like pain.? Patient does feel like he has gas.? Patient reports that the cramps moves around.? Patient can take simethicone most likely gas trapping pain.? Patient denies any fevers or chills.? Denies any nausea or vomiting. (2) Diverticulitis: ?Code(s): K57.92 - Diverticulitis of intestine, part unspecified, without perforation or abscess without bleeding ?Plan: History of diverticulitis in the past treated with antibiotics.? Patient does not want to go for colonoscopy.? States that he had colonoscopy in the past.? He knows that he needs to move his bowels and stay away from food that can cause his symptoms.? Continue high-fiber diet, however patient was encouraged to be cautious as high-fiber food can be very gassy and that can cause increased bloating, pain. (3) GERD (gastroesophageal reflux disease): ?Code(s): K21.9 - Gastro-esophageal reflux disease without esophagitis ?Qualifiers: ?Esophagitis presence:?esophagitis presence not specified? Qualified Code(s):?K21.9 - Gastro-esophageal reflux disease without esophagitis ?Plan: Continue pantoprazole every morning half an hour before breakfast. (4) Constipation: ?Code(s): K59.00 - Constipation, unspecified ?Qualifiers: ?Constipation type:?slow transit constipation? Qualified Code(s):?K59.01 - Slow transit constipation ?Plan: Continue Senokot and Colace as recommended.? I will see patient in 6 weeks, sooner on as needed basis.? Patient is agreeable to this plan and verbalizes understanding of instructions.? He was given the opportunity to ask questions and all questions answered.? TODAY'S VISIT: Patient is here today for follow-up has been doing well. Take Senokot and Colace and is moving bowels daily. Patient states that he takes pantoprazole in the morning every day. Denies dyspepsia, dysphagia or odynophagia. Denies melena, hematochezia, unintentional weight loss or ribbon like stools. Patient reports that he has been feeling well. Denies any GI concerning symptoms today. Moving his bowels every day. [facility] Medical History Anemia Anxiety and depression BPH (benign prostatic hyperplasia) Chronic abdominal pain Constipation COPD (chronic obstructive pulmonary disease) Current use of anticoagulant therapy Diastolic CHF, acute on chronic Diverticulitis Frequency of micturition GERD (gastroesophageal reflux disease) Hearing loss History of COVID-19 History of CVA (cerebrovascular accident) (~2018) History of rib fracture History of TIA (transient ischemic attack) (~2021) Hypercholesterolemia Hypertension Hypertrophic cardiomyopathy Hypogammaglobulinemia Meningioma Obesity (BMI 30-39.9) Obstructive sleep apnea Pacemaker Paroxysmal atrial fibrillation Peripheral neuropathy Peripheral vascular disease Polyarthralgia Primary osteoarthritis of right knee Protrusion of lumbar intervertebral disc Tension headache Urinary incontinence Surgical History History of colonoscopy History of left knee replacement (~2007) History of pacemaker History of tonsillectomy History of total right hip replacement (~2016) History of transurethral resection of prostate Family History Father No problems noted. Mother Hx of type 1 diabetes mellitus Social History Household Members: Spouse Housing: Apartment Housing Other:: Home for the elderly Do you presently have visiting nurse or other home services: Yes Alcohol intake: never Patient Tobacco Use Status: Never used Tobacco Years Smoked: 30 yrs ago Second Hand Smoke Exposure: No Advance Directives Date on File: 04/06/20 service: No Current occupational status: unemployed and retired Current occupation: Right Handed Review of Systems Const Denies weight gain and Denies weight loss ENT Reports no additional complaints, Denies dysphagia and Denies odynophagia Card Reports no additional complaints Resp Reports no additional complaints GI Denies abdominal pain, Denies belching, Denies melena, Denies bloating, Denies change in bowel habits, Denies dysphagia, Denies excessive flatus, Denies dys pepsia, Denies heartburn, Denies diarrhea, Denies loose stools, Denies nausea, Denies odynophagia and Denies vomiting Reports no additional complaints Musc Reports no additional complaints Neuro Reports no additional complaints Psych Reports no additional complaints Endo Reports no additional complaints Physical Exam Vital Signs: Last Vital Signs Pulse 60 09/23/22 11:50 BP 110/56 L 09/23/22 11:50 BMI result Body Mass Index 37.8 Const General: healthy appearing, no acute distress and well developed Nutritional Appearance: obese Orientation/consciousness: patient oriented x3 HEENT Head: Yes normal to inspection, Yes normocephalic and Yes atraumatic Face and sinus: Yes normal facial exam Mouth: Normal oral and palatal mucosa present Throat: Yes posterior oropharynx normal, Yes tonsils normal and Yes uvula midline Eyes General: appearance normal, both eyes and all related structures Neck Neck: Yes normal visual inspection, Yes full ROM and Yes trachea midline Thyroid: Thyroid normal Resp Effort & Inspection: normal respiratory effort, able to speak in complete sentences, no tracheal deviation and symmetric chest movement Auscultation: clear to auscultation bilaterally Cardio Rate: regular rate Heart sounds: S1 normal heart sound present and S2 normal heart sound present GI Inspection: Yes normal to inspection, No distended and Yes obesity Palpation (GI): Soft to palpation, not firm, nontender and No hepatosplenomegaly present Auscultation: normal bowel sounds General: Yes no CVA tenderness Back/Spine/Pelvis Back: no CVA tenderness Skin General skin exam: elasticity normal, turgor normal and dry skin Neuro General: patient oriented x3 Psych Appearance: grossly normal Mental Status: mental status grossly normal Speech and movement: Normal speech and movement present Assessment & Plan Assessment & Plan (1) Abdominal pain: Code(s): R10.9 - Unspecified abdominal pain Qualifiers: Abdominal location: left lower quadrant Qualified Code(s): R10.32 - Left lower quadrant pain Plan: Continue taking Senokot and Colace. Patient denies any abdominal pain or discomfort. (2) Diverticulitis: Code(s): K57.92 - Diverticulitis of intestine, part unspecified, without perforation or abscess without bleeding Plan: History of diverticulitis in the past. Patient was encouraged to take probiotic every morning. Patient denies any pain or discomfort. (3) GERD (gastroesophageal reflux disease): Code(s): K21.9 - Gastro-esophageal reflux disease without esophagitis Qualifiers: Esophagitis presence: esophagitis presence not specified Qualified Code(s): K21.9 - Gastro-esophageal reflux disease without esophagitis Plan: Continue pantoprazole every morning half an hour before breakfast. Avoid dietary triggers and late night snacking. Staying upright for minimal 3 hours after meals discussed with patient (4) Constipation: Code(s): K59.00 - Constipation, unspecified Qualifiers: Constipation type: slow transit constipation Qualified Code(s): K59.01 - Slow transit constipation Plan: Continue colon and senna. Patient was encouraged to eat more vegetables. I will see him in 6 weeks. Patient will bring medications in so we can review. Patient is agreeable to this plan and verbalizes understanding of instructions. He was given the opportunity to ask questions and all questions answered. Thank you for allowing me to participate in his care Medications: Discontinued Bifidobacterium infantis ONE orally daily; 30 tabs 5RF K57.92 - Diverticulitis of intestine, part unspecified, without perforation or abscess without bleeding, R10.9 - Unspecified abdominal pain Coding Level of Care Code Est Pt Level 3 (66310) Diagnoses Abdominal pain R10.32 Abdominal location: left lower quadrant Diverticulitis K57.92 GERD (gastroesophageal reflux disease) K21.9 Esophagitis presence: esophagitis presence not specified Constipation K59.01 Constipation type: slow transit constipation Time Spent (min) 30 Comment 20 minutes spent with patient and additional 10 minutes spent reviewing his records
[2022-09-23 11:50] VITALS: BP 110/56; PULSE 60; BMI 37.8
== END 2022-09-23 12:56 | disposition home or self-care (01) ==
PROVIDERS: PCP Registered Nurse; Visit Provider Nurse Practitioner Family
DX: R10.32 Left lower quadrant pain (principal); K57.92 Diverticulitis of intestine, part unspecified, without perforation or abscess without bleeding; K21.9 Gastro-esophageal reflux disease without esophagitis; K59.01 Slow transit constipation
CPT/HCPCS: 99213

== ENCOUNTER → 2022-09-23 11:36 | Outpatient (BNVA) | payer OTHER, SELFPAY | PROVIDERS: PCP Registered Nurse; Visit Provider Nurse Practitioner Family | DX: K59.01 Slow transit constipation (principal); K21.9 Gastro-esophageal reflux disease without esophagitis; K57.92 Diverticulitis of intestine, part unspecified, without perforation or abscess without bleeding; R10.32 Left lower quadrant pain | CPT/HCPCS: 99212 ==

== ENCOUNTER 2022-10-16 01:51 | Emergency (ER) | payer OTHER, SELFPAY ==
[2022-10-16 07:31] VITALS: BP 106/85; BP 194/83; PULSE 63; PULSE 65; RESP 12; RESP 15; TEMP 36.7; O2SAT 98; O2SAT 99
--- NOTE | 2022-10-16 07:32 | PC.NURSE ---
see downtime paperwork
[2022-10-16 08:23] VITALS: BP 184/75; PULSE 60; RESP 15; TEMP 36.6; O2SAT 99
--- NOTE | 2022-10-16 08:24 | PC.NURSE ---
patient states last night after 10pm he had a headache, took blood pressure at home and noted it was high. patient then called ems due to concern for bp. states he took his blood pressure medications as prescribed.
--- NOTE | 2022-10-16 08:29 | ECG_ITS ---
Test Reason : htn Blood Pressure : / mmHG Vent. Rate : 063 BPM Atrial Rate : 063 BPM P-R Int : 216 ms QRS Dur : 124 ms QT Int : 436 ms P-R-T Axes : 050 -26 128 degrees QTc Int : 446 ms Atrial-sensed ventricular-paced rhythm with prolonged AV conduction Abnormal ECG When compared with ECG of 07-SEP-2022 04:35, Vent. rate has increased BY 3 BPM Referred By: Mari Hurley Electronically Signed By:MICHAEL CARABALLO
--- NOTE | 2022-10-16 08:31 | ED_ITS ---
HPI - General Adult General Chief complaint: General Medical Time Seen by Provider: 10/16/22 08:25 Source: patient and old records reviewed Mode of arrival: EMS Limitations: no limitations History of Present Illness HPI narrative: 86 yo male with hx of TIA, HTN, dCHF, HTN, HLD, PVD, cardiomyopathy, PPM, BPH, hypogammaglobulinemia, anxiety and depression here with c/o elevated BP at home 180s and mild headache but no chest pain, numbness, weakness or vision changes. He also notes for the last day or so he feels he has to urinate but not all of it is coming out. He has hx of BPH - no pain or n/v/d no fevers. He has had this before. bladder scan was 23. He states he needs his AM medications and is eager to go home. MD complaint: HTN, urinary hesitancy Onset (ago): day(s) (1) Location: head and abdomen Radiation: non-radiation Severity: mild Quality: dull Pain Consistency: intermittent Relieving factors: other (urination) Exacerbating factors: none Associated symptoms: headaches Treatments prior to arrival: none Related Data Home Medications Medication Instructions Recorded Confirmed atorvastatin 80 mg tablet 80 mg PO BEDTIME 06/03/20 09/07/22 carvedilol 25 mg tablet 25 mg PO BID 12/04/20 09/07/22 potassium chloride 10 mEq 1 tab PO BID 11/14/21 09/07/22 tablet,extended release rplfqjsdslsl-ujqkvnve-njwywf tablet 1 tab PO DAILY 01/30/22 09/07/22 pantoprazole 40 mg tablet,delayed 40 mg PO DAILY@0630 03/25/22 09/07/22 release docusate sodium 100 mg capsule 100 mg PO BID 09/07/22 09/07/22 sennosides 8.6 mg tablet (senna) 8.6 mg PO BEDTIME 09/07/22 09/07/22 Previous Rx's Medication Instructions Recorded fluticasone furoate 200 1 ea inhalation DAILY #60 ea 07/05/20 mcg-vilanterol 25 mcg/dose inhalation powder (Breo Ellipta) tamsulosin 0.4 mg capsule 0.4 mg PO DAILY 90 days #90 caps 03/29/21 verapamil 180 mg 24 hr 180 mg PO DAILY #90 caps 03/29/21 capsule,extended release losartan 100 mg tablet 100 mg PO DAILY #90 tabs 07/02/21 aspirin 81 mg capsule 81 mg PO DAILY #30 caps 01/31/22 sucralfate 100 mg/mL oral 10 ml PO BEDTIME #400 mL 02/04/22 suspension furosemide 40 mg tablet 40 mg PO DAILY #90 tabs 06/16/22 polyethylene glycol 3350 17 17 g PO DAILY #510 grams 07/01/22 gram/dose oral powder (Miralax) rivaroxaban 20 mg tablet (Xarelto) 20 mg PO DAILY@1700 #90 tabs 07/18/22 amlodipine 2.5 mg tablet 2.5 mg PO DAILY #30 tabs 09/08/22 amlodipine 5 mg tablet 5 mg PO DAILY #30 tabs 10/16/22 Allergies Allergy/AdvReac Type Severity Reaction Status Date / Time ezetimibe [From Zetia] Allergy Severe Anaphylaxis Verified 09/23/22 11:56 dabigatran etexilate Allergy Intermediate ITCHING Verified 09/23/22 11:56 [From PRADAXA] JORGE L Inhibitors Allergy Mild UNKNOWN, Verified 09/23/22 11:56 [Jorge L Inhibitors] FOUND IN MEDICAL RECORD 04/[address] GIPSON apixaban [From ELIQUIS] Allergy Unknown Rash Verified 09/23/22 11:56 rosuvastatin [Crestor] Allergy Unknown myalgia Verified 09/23/22 11:56 Review of Systems Review of Systems: Constitutional : No Fever, No Chills, No Fatigue ENT/Mouth : No sore throat, No Rhinorrhea Eyes: No Eye Pain, No Swelling, No Redness Cardiovascular : No Chest Pain, No SOB, No Dyspnea on Exertion Respiratory : No Cough, No Sputum Gastrointestinal : No Nausea, No Vomiting, No Diarrhea, No abdominal Pain Genitourinary : No Dysuria, No Urinary Frequency, No Hematuria, pos hesitancy Musculoskeletal : No joint pain, No Myalgias, No Joint Swelling Skin : No Skin Lesions, No rash Neuro : No Weakness, No Numbness, No Dizziness, positive Headache Psych : No Anxiety/Panic, No Depression Heme/Lymph: No Bruising, No Bleeding,No Lymphadenopathy Endocrine : No Polyuria, No Polydipsia All other systems reviewed and are negative PMFSH Past Medical History Attestation statement: The following information was validated with the patient. Source: old records reviewed Medical History Anemia Anxiety and depression BPH (benign prostatic hyperplasia) Chronic abdominal pain Constipation COPD (chronic obstructive pulmonary disease) Current use of anticoagulant therapy Diastolic CHF, acute on chronic Diverticulitis Frequency of micturition GERD (gastroesophageal reflux disease) Hearing loss History of COVID-19 History of CVA (cerebrovascular accident) (~2019) History of rib fracture History of TIA (transient ischemic attack) (~2021) Hypercholesterolemia Hypertension Hypertrophic cardiomyopathy Hypogammaglobulinemia Meningioma Obesity (BMI 30-39.9) Obstructive sleep apnea Pacemaker Paroxysmal atrial fibrillation Peripheral neuropathy Peripheral vascular disease Polyarthralgia Primary osteoarthritis of right knee Protrusion of lumbar intervertebral disc Tension headache Urinary incontinence Surgical History History of colonoscopy History of left knee replacement (~2007) History of pacemaker History of tonsillectomy History of total right hip replacement (~2016) History of transurethral resection of prostate Family History Family History Father No problems noted. Mother Hx of type 1 diabetes mellitus Social History Social History Household Members: Spouse Housing: Apartment Housing Other:: Home for the elderly Do you presently have visiting nurse or other home services: Yes Alcohol intake: never Patient Tobacco Use Status: Never used Tobacco Years Smoked: 30 yrs ago Smoked in Last 30 Days: No Second Hand Smoke Exposure: No Use of substances other than those prescribed or required for medical reasons: No Advance Directives: Yes Advance Directives on File: Yes Advance Directives Date on File: 04/06/20 service: No Current occupational status: unemployed and retired Current occupation: Right Handed Physical Exam ED Vital Signs: Vital Signs - 24 hr 10/16/22 07:31 10/16/22 07:31 10/16/22 08:23 Temperature 98.0 F 97.8 F Pulse Rate 63 65 60 Respiratory Rate 12 15 15 Blood Pressure 194/83 H 106/85 184/75 H Pulse Oximetry 98 99 99 Oxygen Delivery Method Room Air Room Air 10/16/22 09:50 Temperature Pulse Rate 60 Respiratory Rate 15 Blood Pressure 185/79 H Pulse Oximetry 97 Oxygen Delivery Method Room Air Appearance: Alert. Oriented X3. No acute distress. smiling and laughing Eyes: Pupils equal, round and reactive to light. ENT: Pharynx normal. Neck: Normal inspection. Neck supple. CVS: Normal heart rate and rhythm. Pulses normal. Respiratory: No respiratory distress. Breath sounds normal. Abdomen: Soft and nontender. Skin: Skin warm and dry. Normal skin color. Normal skin turgor. Extremities: trace pitting ankle lower extremity edema. No calf ttp Neuro: Oriented X 3. No motor deficit. No sensory deficit. Course Course Course Narrative: no symptoms - labs stable, UA negative eating and wants to go home did give extra dose of amlodipine will DC on 5mg daily and follow up with PCP Medications Administered Discontinued Medications Generic Name Dose Route Start Last Admin Trade Name Freq PRN Reason Stop Dose Admin Amlodipine Besylate 2.5 mg 10/16/22 08:29 10/16/22 08:41 Amlodipine Besylate 2.5 Mg Tablet PO 10/16/22 08:30 2.5 mg ONCE ONE Administration Protocol Amlodipine Besylate 2.5 mg 10/16/22 10:10 10/16/22 10:15 Amlodipine Besylate 2.5 Mg Tablet PO 10/16/22 10:11 2.5 mg ONCE ONE Administration Protocol Carvedilol 25 mg 10/16/22 08:30 10/16/22 08:41 Carvedilol 25 Mg Tablet PO 10/16/22 08:31 25 mg ONCE ONE Administration Protocol Medical Decision Making Medical Decision Making [facility] Narrative: 86 yo male with hx of TIA, HTN, dCHF, HTN, HLD, PVD, cardiomyopathy, PPM, BPH, hypogammaglobulinemia, anxiety and depression here with mild headache but overall asymptomatic HTN - will give AM meds and recheck could go up on his amlodipine. The patient also c/o some retention but only 23 on bladder scan - will obtain basic labs and UA for infection though no infectious symptoms. No signs of end organ damage and not toxic. Eager to go home. Differential Diagnosis Differential Diagnoses: The differential diagnosis associated with the presentation includes BPH, HTN, retention, no end organ damage at this time Admission/Observation Consideration of admission/observation: Escalation of care including admission/observation considered asymptomatic HTN no signs of end organ damage can follow up with PCP Lab Data [facility] Lab Attestation statement: I reviewed the patient's lab results. 10/16/22 09:27 10/16/22 09:27 Labs: Lab Results 10/16/22 10/16/22 10/16/22 Range/Units 09:14 09:27 09:27 WBC 9.0 (4.8-10.8) X10*3/uL RBC 3.87 L (4.60-5.80) X10*6/uL Hgb 10.4 L (14.0-18.0) g/dl Hct 33.4 L (42.0-52.0) % MCV 86.3 (80.0-98.0) fL MCH 26.9 L (27.0-33.0) pg MCHC 31.1 (31.0-36.0) g/dl RDW 14.8 (11.0-16.0) % Plt Count 212 (160-400) X10*3/uL MPV 9.9 (9.4-12.4) fL Immature Gran % (Auto) 0.2 (0.0-0.4) % Neut % (Auto) 66.5 (45-73) % Lymph % (Auto) 24.0 (20-40) % [place] % (Auto) 6.7 (2-11) % Eos % (Auto) 2.3 (0-4) % Baso % (Auto) 0.3 (0-2) % Lymph # (Auto) 2.2 (1.2-4.9) X10*3/uL [place] # (Auto) 0.6 (0.1-1.2) X10*3/uL Eos # (Auto) 0.2 (0.0-0.4) X10*3/uL Baso # (Auto) 0.0 (0.0-0.2) X10*3/uL Abs Immat Gran (auto) 0.02 (0.00-0.03) X10*3/uL Absolute Neuts (auto) 6.0 (2.0-8.3) x10*3/uL Absolute Nucleated RBC 0.000 (0.0-0.012) X10*3/uL Nucleated RBC % (auto) 0.0 (0.0-0.2) /100WBC Sodium 143 (135-145) mmol/L Potassium 4.3 (3.3-5.1) mmol/L Chloride 110 H (96-108) mmol/L Carbon Dioxide 26 (22-29) mmol/L Anion Gap 11 L (12-20) BUN 19 H (9-16) mg/dL Creatinine 0.93 (0.5-1.4) mg/dL Estim Creat Clear Calc TNP Estimated GFR > 60 Random Glucose 92 (60-115) mg/dL Calcium 8.9 (8.4-10.2) mg/dL Total Bilirubin 0.3 (0.0-1.0) mg/dL Direct Bilirubin 0.1 (0.0-0.5) mg/dL AST 30 (5-37) U/L ALT 21 (0-40) U/L Alkaline Phosphatase 59 (39-117) U/L Total Protein 6.1 L (6.5-8.0) g/dL Albumin 3.5 (3.5-5.0) g/dL Urine Color Yellow Urine Appearance Clear Urine pH 6.5 (5.0-9.0) Ur Specific [place] 1.020 (1.005-1.025) Urine Protein Negative (Neg-Trace) mg/dL Urine Glucose (UA) Negative (Negative) mg/dL Urine Ketones Negative (Negative) mg/dL Urine Blood Negative (Negative) Urine Nitrite Negative (Negative) Ur Leukocyte Esterase Negative (Negative) Independent Interpretation I performed an independent interpretation of an: EKG Interpretation: Rate: 63 Rhythm: NSR [place]: left, LVH Normal P waves. Normal TESSIE. Normal QRS complex. ST T wave : no ROMAINE, inverted t waves I and aVL qTC: normal prior studies: no acute ischemia - unchanged The study has been interpreted contemporaneously by me. . Independent Historian Clinical information obtained from an independent historian. History obtained from or confirmed by: EMS External Record Review External record reviewed: Inpatient record Prescription Management I considered prescription management with: Other (amlodipine) Discharge Plan Discharge Clinical Impression: Hypertension, uncontrolled BPH (benign prostatic hyperplasia) Qualifiers: Lower urinary tract symptom presence: symptoms present Lower urinary tract symptom detail: urinary hesitancy Qualified Code(s): N40.1 - Benign prostatic hyperplasia with lower urinary tract symptoms Patient Disposition: Home, Self-Care Instructions: Enlarged Prostate (BPH) (ED), Chronic Hypertension (ED) Additional Instructions: return for severe headaches, numbness weakness, chest pain, fevers inability to urinate or any other concerns. make appointment with your doctor for blood pressure check next week INCREASE AMLODIPINE TO 5MG DAILY - STOP TAKING THE 2.5MG DAILY RETURN FOR DIZZINESS WEAKNESS HOLD THE AMLODIPINE 5MG IF YOUR BLOOD PRESSURE IS BELOW 100 Prescriptions: New amlodipine 5 mg tablet 5 mg PO DAILY Qty: 30 0RF No Action Breo Ellipta 200-25 mcg/dose blister with device 1 ea inhalation DAILY Qty: 60 2RF tamsulosin 0.4 mg capsule 0.4 mg PO DAILY 90 Days Qty: 90 3RF verapamil 180 mg capsule,ext rel. pellets 24 hr 180 mg PO DAILY Qty: 90 3RF losartan 100 mg tablet 100 mg PO DAILY Qty: 90 0RF furosemide 40 mg tablet 40 mg PO DAILY Qty: 90 1RF Xarelto 20 mg tablet 20 mg PO DAILY@1700 Qty: 90 3RF atorvastatin 80 mg tablet 80 mg PO BEDTIME potassium chloride 10 mEq tablet extended release 1 tab PO BID pantoprazole 40 mg tablet,delayed release (DR/EC) 40 mg PO DAILY@0630 gkehxabnqdnj-fhzunopv-nrtunp Tablet 1 tab PO DAILY aspirin 81 mg capsule 81 mg PO DAILY Qty: 30 0RF docusate sodium 100 mg capsule 100 mg PO BID sennosides [senna] 8.6 mg tablet 8.6 mg PO BEDTIME amlodipine 2.5 mg tablet 2.5 mg PO DAILY Qty: 30 0RF carvedilol 25 mg tablet 25 mg PO BID sucralfate 100 mg/mL suspension 10 ml PO BEDTIME Qty: 400 3RF polyethylene glycol 3350 [Miralax] 17 gram/dose powder 17 g PO DAILY Qty: 510 2RF
[2022-10-16] MEDS: carvediloL 25 MG TABLET PO (08:41)
[2022-10-16] MEDS: amLODIPine Besylate 2.5 MG TABLET PO ×2 (08:41→10:15)
--- NOTE | 2022-10-16 09:16 | PC.NURSE ---
able to stand at the side of the bed and urinate into urinal. approx 200mL urine output with no pain or discomfort.
[2022-10-16 09:26] LABS: Appearance Urine Clear; Color Urine Yellow; Glucose Urine UA Negative (Negative); Leukocyte Esterase Urine Negative (Negative); Nitrite Urine Negative (Negative); PH 6.5 (5.0-9.0); Urine Blood Negative (Negative); Urine Ketones Negative (Negative); Urine Protein Negative (Neg-Trace)
[2022-10-16 09:36] LABS: MANUAL DIFF FLAG NO
[2022-10-16 09:38] LABS: Basophils Percent Auto 0.3 % (0-2); Eosinophils Absolute Auto 0.2 X10*3/uL (0.0-0.4); Eosinophils Percent Auto 2.3 % (0-4); Hematocrit 33.4 % (42.0-52.0); Hemoglobin 10.4 g/dl (14.0-18.0); Imm Gran Abs Auto 0.02 X10*3/uL (0.00-0.03); Imm Gran Pct Auto 0.2 % (0.0-0.4); Lymphocytes Absolute Auto 2.2 X10*3/uL (1.2-4.9); Mean Corpuscular HGB Conc 31.1 g/dl (31.0-36.0); Mean Corpuscular Hemoglobin 26.9 pg (27.0-33.0); Mean Corpuscular Volume 86.3 fL (80.0-98.0); Mean Platelet Volume 9.9 fL (9.4-12.4); Monocytes Absolute Auto 0.6 X10*3/uL (0.1-1.2); Monocytes Percent Auto 6.7 % (2-11); Neutrophils Percent Auto 66.5 % (45-73); Platelet Count 212 X10*3/uL (160-400); Red Blood Count 3.87 X10*6/uL (4.60-5.80); Red Cell Distribution Width 14.8 % (11.0-16.0)
[2022-10-16 09:50] VITALS: BP 185/79; PULSE 60; RESP 15; O2SAT 97
[2022-10-16 10:11] LABS: Alanine Aminotransferase 21 U/L (0-40); Albumin Level 3.5 g/dL (3.5-5.0); Alkaline Phosphatase 59 U/L (39-117); Anion Gap 11 (12-20); Aspartate Amino Transferase 30 U/L (5-37); Bilirubin Direct 0.1 mg/dL (0.0-0.5); Bilirubin Total 0.3 mg/dL (0.0-1.0); Blood Urea Nitrogen 19 mg/dL (9-16); Calcium 8.9 mg/dL (8.4-10.2); Carbon Dioxide 26 mmol/L (22-29); Chloride 110 mmol/L (96-108); Estimated Glomerular Filt Rate > 60; Glucose Random 92 mg/dL (60-115); Potassium 4.3 mmol/L (3.3-5.1); Sodium 143 mmol/L (135-145); Total Protein 6.1 g/dL (6.5-8.0)
[2022-10-16 11:09] VITALS: BP 146/59; PULSE 66; RESP 14; TEMP 36.5; O2SAT 98
== END 2022-10-16 11:25 | disposition home or self-care (01) ==
PROVIDERS: Emergency Provider Emergency Medicine
DX: I11.0 Hypertensive heart disease with heart failure (principal); I50.33 Acute on chronic diastolic (congestive) heart failure; N40.1 Benign prostatic hyperplasia with lower urinary tract symptoms; R39.11 Hesitancy of micturition; E78.00 Pure hypercholesterolemia, unspecified; D64.9 Anemia, unspecified; Z86.73 Personal history of transient ischemic attack (TIA), and cerebral infarction without residual deficits; Z95.0 Presence of cardiac pacemaker; Z79.899 Other long term (current) drug therapy; Z79.02 Long term (current) use of antithrombotics/antiplatelets; Z79.82 Long term (current) use of aspirin; Z79.01 Long term (current) use of anticoagulants
CPT/HCPCS: 36415; 80048; 80076; 81003; 85025; 93005; 99284

== ENCOUNTER → 2022-10-26 23:59 | Outpatient (BNV) | payer OTHER, SELFPAY ==
--- NOTE | 2022-11-02 17:21 | MHC.OFFVIS ---
Intake Intake Visit Reasons: Remote Device Check- [employer] Allergies ezetimibe [From Zetia] Allergy (Severe, Verified 09/23/22 11:56) Anaphylaxis dabigatran etexilate [From PRADAXA] Allergy (Intermediate, Verified 09/23/22 11:56) ITCHING JORGE L Inhibitors [Jorge L Inhibitors] Allergy (Mild, Verified 09/23/22 11:56) UNKNOWN, FOUND IN MEDICAL RECORD 04/[address] GIPSON apixaban [From ELIQUIS] Allergy (Unknown, Verified 09/23/22 11:56) Rash rosuvastatin [Crestor] Allergy (Unknown, Verified 09/23/22 11:56) myalgia PFSH Medical History Anemia Anxiety and depression BPH (benign prostatic hyperplasia) Chronic abdominal pain Constipation COPD (chronic obstructive pulmonary disease) Current use of anticoagulant therapy Diastolic CHF, acute on chronic Diverticulitis Frequency of micturition GERD (gastroesophageal reflux disease) Hearing loss History of COVID-19 History of CVA (cerebrovascular accident) (~2018) History of rib fracture History of TIA (transient ischemic attack) (~2021) Hypercholesterolemia Hypertension Hypertrophic cardiomyopathy Hypogammaglobulinemia Meningioma Obesity (BMI 30-39.9) Obstructive sleep apnea Pacemaker Paroxysmal atrial fibrillation Peripheral neuropathy Peripheral vascular disease Polyarthralgia Primary osteoarthritis of right knee Protrusion of lumbar intervertebral disc Tension headache Urinary incontinence Surgical History History of colonoscopy History of left knee replacement (~2007) History of pacemaker History of tonsillectomy History of total right hip replacement (~2017) History of transurethral resection of prostate Family History Father No problems noted. Mother Hx of type 1 diabetes mellitus Social History Household Members: Spouse Housing: Apartment Housing Other:: Home for the elderly Do you presently have visiting nurse or other home services: Yes Alcohol intake: never Patient Tobacco Use Status: Never used Tobacco Years Smoked: 30 yrs ago Smoked in Last 30 Days: No Second Hand Smoke Exposure: No Use of substances other than those prescribed or required for medical reasons: No Advance Directives: Yes Advance Directives on File: Yes Advance Directives Date on File: 04/06/20 service: No Current occupational status: unemployed and retired Current occupation: Right Handed Office Procedures Cardiac Device Check Cardiac Device Check Details: Date of service- 10/26/2022 ; Battery life >11 years; normal lead parameters; AP 60%; [employer] >99%; brief atrial tachycardia, transient NSVT. Overall normal device function. [id number] Cardiac Device Interrogation, pacemaker Procedure code (CPT) selection complete Assessment & Plan Assessment & Plan (1) Hypertrophic cardiomyopathy: Code(s): I42.2 - Other hypertrophic cardiomyopathy Coding Level of Care Code Procedure Only Diagnoses Hypertrophic cardiomyopathy I42.2 CPT Codes Cardiac Device Check - Cardiac Device 12: [id number] Cardiac Device Interrogation, pacemaker ([id number])
== END ==
PROVIDERS: Visit Provider Internal Medicine
DX: I48.0 Paroxysmal atrial fibrillation (principal); Z95.0 Presence of cardiac pacemaker
CPT/HCPCS: 93294

== ENCOUNTER 2022-11-03 13:21 | Outpatient (AMB) | payer OTHER, SELFPAY ==
--- NOTE | 2022-11-03 13:43 | MHC.OFFVIS ---
Intake Vital Signs 11/03/22 13:44 Height 5 ft 2 in Weight 205 lb 7.533 oz BMI 37.6 BP 116/58 L Blood Pressure Location Lt brachial Position Sitting Pulse 60 Intake Visit Reasons: 4 month follow-up after [employer]tr[employer] Intake Note: 4 month follow up Psychiatric Nursing Aide Required: No Accompanied by: ASSISTANT [employer]OLF PROFESSIONAL Allergies ezetimibe [From Zetia] Allergy (Severe, Verified 11/03/22 13:48) Anaphylaxis dabigatran etexilate [From PRADAXA] Allergy (Intermediate, Verified 11/03/22 13:48) ITCHING JORGE L Inhibitors [Jorge L Inhibitors] Allergy (Mild, Verified 11/03/22 13:48) UNKNOWN, FOUND IN MEDICAL RECORD 04/[address] GIPSON apixaban [From ELIQUIS] Allergy (Unknown, Verified 11/03/22 13:48) Rash rosuvastatin [Crestor] Allergy (Unknown, Verified 11/03/22 13:48) myalgia Medication List - Last Reconciled 11/03/22 by Hai Edwards MD aspirin 81 mg PO DAILY atorvastatin 80 mg PO BEDTIME carvedilol 25 mg PO BID docusate sodium 100 mg PO BID fluticasone furoate-vilanterol 200-25 mcg/dose (Breo Ellipta) 1 ea inhalation DAILY furosemide 40 mg PO DAILY losartan 100 mg PO DAILY mhxwextdryug-kwhqaqsj-qvpuhx 1 tab PO DAILY pantoprazole 40 mg PO DAILY@0630 polyethylene glycol 3350 (Miralax) 17 grams PO DAILY potassium chloride ER 1 tab PO BID rivaroxaban (Xarelto) 20 mg PO DAILY@1700 sennosides (senna) 8.6 mg PO BEDTIME tamsulosin 0.4 mg PO DAILY 90 days verapamil ER 180 mg PO DAILY HPI HPI Comments History of Present Illness Details Pal returns for follow-up. Previous patient of Dr. Xiong from [facility]. He carries a diagnosis of hypertensive heart disease, and as well as previous LVOT gradient. He is maintained on a combination of beta-blockers and verapamil. He has also had a stroke in the past and it seems that he had and ILR placed but now explanted and that had shown atrial fibrillation. He was on Coumadin in the past but now on Xarelto. He was recently admitted to the hospital with complete heart block. Subsequently, underwent permanent pacemaker implantation. Sometimes, he can get dizzy and that seems rather orthostatic as it seems to happen when he is getting up. Another occasion, he came to the ER and at that time had very high blood pressure. He was put on amlodipine by the ER physician but per patient, his own primary care physician has put him back on the verapamil. He was taking this for a long time but not in the last few months. But now resumed it. Otherwise, he is feeling quite good. No new cardiac symptoms like angina. [facility] Medical History Anemia Anxiety and depression BPH (benign prostatic hyperplasia) Chronic abdominal pain Constipation COPD (chronic obstructive pulmonary disease) Current use of anticoagulant therapy Diastolic CHF, acute on chronic Diverticulitis Frequency of micturition GERD (gastroesophageal reflux disease) Hearing loss History of COVID-19 History of CVA (cerebrovascular accident) (~2018) History of rib fracture History of TIA (transient ischemic attack) (~2021) Hypercholesterolemia Hypertension Hypertrophic cardiomyopathy Hypogammaglobulinemia Meningioma Obesity (BMI 30-39.9) Obstructive sleep apnea Pacemaker Paroxysmal atrial fibrillation Peripheral neuropathy Peripheral vascular disease Polyarthralgia Primary osteoarthritis of right knee Protrusion of lumbar intervertebral disc Tension headache Urinary incontinence Surgical History History of pacemaker History of colonoscopy History of total right hip replacement (~2016) History of transurethral resection of prostate History of tonsillectomy History of left knee replacement (~2007) Family History Father No problems noted. Mother Hx of type 1 diabetes mellitus Social History Household Members: Spouse Housing: Apartment Housing Other:: Home for the elderly Do you presently have visiting nurse or other home services: Yes Alcohol intake: never Patient Tobacco Use Status: Never used Tobacco Years Smoked: 30 yrs ago Second Hand Smoke Exposure: No Advance Directives Date on File: 04/06/20 service: No Current occupational status: unemployed and retired Current occupation: Right Handed Review of Systems Const Denies weakness ENT Denies dizziness Card Denies chest pain, Denies chest pain with activity, Denies syncope, Denies rapid heart rate, Denies pedal edema, Denies edema, Denies leg edema, Denies lightheadedness, Denies palpitations, Denies dyspnea, Denies dyspnea on exertion and Denies orthopnea Resp Denies cough, Denies dyspnea and Denies dyspnea on exertion GI Denies hematochezia and Denies change in stool character Musc Denies abnormal gait, Denies muscle cramps, Denies muscle weakness, Denies numbness, Denies radiating pain into limb and Denies tingling Neuro Denies abnormal gait, Denies dizziness, Denies syncope, Denies numbness, Denies tingling and Denies weakness Endo Denies palpitations Physical Exam Vital Signs: Last Vital Signs Pulse 60 11/03/22 13:44 BP 116/58 L 11/03/22 13:44 BMI result Body Mass Index 37.6 Const General: comfortable and no acute distress Orientation/consciousness: patient oriented x3 HEENT Other: Unremarkable Head: Yes normal to inspection Neck Neck: Yes normal visual inspection Chest Chest palpation & inspection: normal inspection of the chest Resp Auscultation: clear to auscultation bilaterally Cardio Palpation: normal PMI Heart sounds: S1 normal heart sound present, S2 normal heart sound present, no gallops, no murmurs and no rubs GI Palpation (GI): Soft to palpation Back/Spine/Pelvis Other: unremarkable Skin General skin exam: no rashes or lesions noted Neuro General: patient oriented x3 Extrem General: Yes normal to inspection Psych Mental Status: mental status grossly normal Office Procedures Cardiac Device Check Cardiac Device Check Details: Pacemaker interrogated today. Dual-chamber device, programmed DDD mode. Battery status 11.5 years. Atrial fibrillation burden is 2.1%. Some slightly rapid rates but nothing too fast. Otherwise, atrial pacing 58% ventricular pacing 99%. Normal lead parameters. Overall, normal device function. [id number] Cardiac Device Check, pacemaker dual lead Procedure code (CPT) selection complete Assessment & Plan Assessment & Plan (1) Hypertrophic cardiomyopathy: Code(s): I42.2 - Other hypertrophic cardiomyopathy Plan: In the most recent echocardiogram, LVEF 60-60%. Mild left ventricular hypertrophy. No clear LVOT gradient documented. In earlier study, moderate basal/septal asymmetric hypertrophy. Continue Coreg without changes. He has been offered optimal for a few months but now back on it. No further changes. (2) Paroxysmal atrial fibrillation: Code(s): I48.0 - Paroxysmal atrial fibrillation Plan: [place] on pacemaker interrogation is fairly low. With addition of verapamil, should help. Otherwise, continue anticoagulation. Continue Xarelto. (3) Complete heart block: Code(s): I44.2 - Atrioventricular block, complete Plan: Status post recent permanent pacemaker placement. Normal function. Can follow remotely. (4) Hypertension: Code(s): I10 - Essential (primary) hypertension Qualifiers: Hypertension type: essential hypertension Qualified Code(s): I10 - Essential (primary) hypertension Plan: Recently high blood pressure and then amlodipine was started in the ER. However, per patient PCP switched to verapamil. Today's blood pressure seems stable. No further changes. (5) Obstructive sleep apnea: Comment: (Moderate GHULAM with AHI 21 on 07/07/17 sleep test - Cannot tolerate CPAP) Code(s): G47.33 - Obstructive sleep apnea (adult) (pediatric) Plan: Ideally, should be on CPAP but in the past he has not been able tolerate. (6) Dizziness: Code(s): R42 - Dizziness and giddiness Plan: In the head and neck CTA, description [id number] underlying microangiopathy. No acute hemorrhage or infarction. No significant vascular stenosis. Symptoms possibly from some combination of hypertension/orthostatic symptoms. Appropriate precautions discussed. Coding Level of Care Code Est Pt Level 4 (70621) Diagnoses Hypertrophic cardiomyopathy I42.2 Paroxysmal atrial fibrillation I48.0 Complete heart block I44.2 Essential hypertension I10 Hypertension type: essential hypertension Obstructive sleep apnea G47.33 Dizziness R42 CPT Codes Cardiac Device Check - Cardiac Device 2: [id number] Cardiac Device Check, pacemaker dual lead ([id number])
[2022-11-03 13:44] VITALS: BP 116/58; PULSE 60; BMI 37.6
== END 2022-11-03 14:06 | disposition home or self-care (01) ==
PROVIDERS: Visit Provider Internal Medicine
DX: I42.2 Other hypertrophic cardiomyopathy (principal); I48.0 Paroxysmal atrial fibrillation; I44.2 Atrioventricular block, complete; I10 Essential (primary) hypertension; G47.33 Obstructive sleep apnea (adult) (pediatric); R42 Dizziness and giddiness
CPT/HCPCS: 93280; 99214

== ENCOUNTER → 2022-11-03 13:21 | Outpatient (BNVA) | payer OTHER, SELFPAY | PROVIDERS: Visit Provider Internal Medicine | DX: I42.2 Other hypertrophic cardiomyopathy (principal); I48.0 Paroxysmal atrial fibrillation; I44.2 Atrioventricular block, complete; I10 Essential (primary) hypertension; G47.33 Obstructive sleep apnea (adult) (pediatric); R42 Dizziness and giddiness; Z79.01 Long term (current) use of anticoagulants; Z79.899 Other long term (current) drug therapy; Z45.018 Encounter for adjustment and management of other part of cardiac pacemaker | CPT/HCPCS: 93280; 99212 ==

== ENCOUNTER 2022-12-06 00:28 | Inpatient (IN) | payer OTHER, SELFPAY ==
[2022-12-06] VITALS (11 sets, daily range): BP systolic 101–194; BP diastolic 52–88; PULSE 60–85; RESP 10–18; TEMP 36–36.8; O2SAT 94–98; BMI 33.6
--- NOTE | ~2022-12-06 | CT_ITS ---
EXAMINATION: CT ABDOMEN AND PELVIS WITHOUT CONTRAST CLINICAL INFORMATION: Left lower quadrant tenderness. COMPARISON: 06/24/2022 TECHNIQUE: Multidetector volumetric imaging was performed from the superior aspect of the liver through the pubic symphysis. Sagittal and coronal reformatted images were obtained on the technologist's workstation. This CT examination was performed using dose optimization techniques as appropriate, variously including the following: *Automated exposure control *Adjustment of mA and/or kV according to patient size (this includes techniques or standardized protocols for targeted exams where dose is matched to indication/reason for exam; i.e. extremities or head) *Use of iterative reconstruction technique DLP: 778 mGy-cm FINDINGS: LUNG BASES: Chronic subpleural reticulation in the lower lungs bilaterally. Coronary calcifications. Prominent bilateral dendritic gynecomastia. LIVER, GALLBLADDER, AND BILIARY TREE: The liver is normal in size, shape, and attenuation. No focal hepatic lesion or biliary ductal dilatation is present. Gallbladder unremarkable. PANCREAS: Unremarkable. SPLEEN: Unremarkable. ADRENAL GLANDS: Unremarkable. KIDNEYS AND URETERS: The kidneys are normal in size, shape, and attenuation. No hydronephrosis, hydroureter, or calculi seen. No perinephric stranding. BLADDER: Unremarkable. GASTROINTESTINAL TRACT: Pancolonic diverticulosis. Minimal fat stranding along the distal left colon at the junction of the descending and sigmoid colon with accompanying wall thickening compatible with mild diverticulitis. No complication such as abscess formation or gross perforation. Normal appendix. Stomach and small bowel unremarkable. ABDOMINAL WALL: No significant hernia is appreciated. Small fat-containing umbilical hernia. LYMPH NODES: Normal. VASCULAR: Aorta is atherosclerotic but normal caliber. PELVIC VISCERA: Unremarkable. OSSEOUS STRUCTURES: No acute or suspicious osseous abnormalities. 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 Intact right total hip arthroplasty. CT/CT abdomen pelvis wo IV con IMPRESSION: * Mild acute uncomplicated diverticulitis at the junction of the descending and sigmoid colon. * Pancolonic diverticulosis. Fleischner guidelines were followed.
--- NOTE | ~2022-12-06 | CT_ITS ---
EXAMINATION: CT HEAD WITHOUT CONTRAST (STROKE PROTOCOL) CLINICAL INFORMATION: Stroke protocol. COMPARISON: 09/07/2022 TECHNIQUE: Contiguous axial imaging was performed from the skull base to vertex without intravenous administration of contrast. This CT examination was performed using dose optimization techniques as appropriate, variously including the following: *Automated exposure control *Adjustment of mA and/or kV according to patient size (this includes techniques or standardized protocols for targeted exams where dose is matched to indication/reason for exam; i.e. extremities or head) *Use of iterative reconstruction technique DLP: 698 mGy-cm FINDINGS: There is no evidence of acute intracranial hemorrhage or territorial infarction. No abnormal mass effect or midline shift is seen. Nunez to white matter differentiation is well preserved. No extra-axial fluid collections are identified. No hydrocephalus. No significant volume loss. Patchy periventricular and deep white matter hypoattenuation is consistent with moderate small vessel ischemic changes. No acute osseous or soft tissue abnormality. The mastoid air cells and visualized portions of the paranasal sinuses are well aerated. CT/CT head for stroke IMPRESSION: No acute intracranial pathology. This critical result was discussed with Dr Donato at 12/06/2022 12:49 AM and it was ascertained that the content and urgency of the report was understood at the time of direct communication.
--- NOTE | 2022-12-06 00:34 | ED.NEUROSD ---
HPI - Neuro Symptoms/Deficit General Chief Complaint: Stroke Stated Complaint: stroke alert Time Seen by Provider: 12/06/22 00:34 Source: patient and EMS Mode of arrival: EMS Limitations: no limitations History of Present Illness HPI Narrative: 87-year-old male history of hypertension, TIA, diverticulitis hypertrophic cardiomyopathy, diastolic CHF, paroxysmal atrial fibrillation high cholesterol, COPD, GERD peripheral neuropathy, BPH, anxiety, depression, anemia, hypogammaglobulinemia who was brought to the emergency department for evaluation of possible stroke according to the paramedics the patient complained headache and was noted to have a left sided facial droop and slurred speech therefore he was made a stroke alert. EMS reports that his last well-known time was 04:00 hours prior to arrival pain. The patient is on rivaroxaban for atrial fibrillation . The patient was evaluate by me on the corporate travel expert stretcher and brought directly to CT scan for CT scan of the brain without IV contrast the patient states that he has headaches on and off the trip is them to his high blood pressure. He states that his blood pressure was 188/88. He is complaining of a headache which she states is located in both temporal areas of his head. Headache is a constant, throbbing sensation is 6/10 associated with nausea but no vomiting. He states that he gets these headaches daily. patient also is complaining of abdominal pain. He states that he has been having left lower sided abdominal pain for 1 week, the pain is a constant, throbbing sensation which is 6/10 at its worst. he denied dark black stools or bloody stools. He denied diarrhea. states he has had similar pain in the past. does have a history of diverticulitis but he believes that the pain is different than his diverticulitis pain. he denies any abdominal surgeries. Related Data Home Medications Medication Instructions Recorded Confirmed atorvastatin 80 mg tablet 80 mg PO BEDTIME 06/03/20 12/06/22 carvedilol 25 mg tablet 25 mg PO BID 12/04/20 12/06/22 potassium chloride 10 mEq 1 tab PO BID 11/14/21 12/06/22 tablet,extended release docusate sodium 100 mg capsule 100 mg PO BID 09/07/22 12/06/22 sennosides 8.6 mg tablet (senna) 8.6 mg PO BEDTIME 09/07/22 12/06/22 rivaroxaban 20 mg tablet (Xarelto) 20 mg PO DAILY 12/06/22 12/06/22 Previous Rx's Medication Instructions Recorded tamsulosin 0.4 mg capsule 0.4 mg PO DAILY 90 days #90 caps 03/29/21 verapamil 180 mg 24 hr 180 mg PO DAILY #90 caps 03/29/21 capsule,extended release aspirin 81 mg capsule 81 mg PO DAILY #30 caps 01/31/22 pantoprazole 40 mg tablet,delayed 40 mg PO DAILY@0630 #30 tabs 11/19/22 release furosemide 40 mg tablet 40 mg PO DAILY #30 tabs 12/05/22 Allergies Allergy/AdvReac Type Severity Reaction Status Date / Time ezetimibe [From Zetia] Allergy Severe Anaphylaxis Verified 11/03/22 13:48 dabigatran etexilate Allergy Intermediate ITCHING Verified 11/03/22 13:48 [From PRADAXA] JORGE L Inhibitors Allergy Mild UNKNOWN, Verified 11/03/22 13:48 [Jorge L Inhibitors] FOUND IN MEDICAL RECORD 04/[address] GIPSON apixaban [From ELIQUIS] Allergy Unknown Rash Verified 11/03/22 13:48 rosuvastatin [Crestor] Allergy Unknown myalgia Verified 11/03/22 13:48 Review of Systems Review of Systems: Yes all other systems are reviewed and are negative [facility] Past Medical History Attestation statement: The following information was validated with the patient. [facility] Narrative: social history: Patient states he lives in elderly housing with his . He denies tobacco, alcohol and drug use. Medical History Pacemaker History of TIA (transient ischemic attack) (~2021) History of COVID-19 Tension headache Meningioma Hypertrophic cardiomyopathy Hearing loss Diastolic CHF, 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 Frequency of micturition Chronic abdominal pain Peripheral neuropathy Constipation Diverticulitis Polyarthralgia Primary osteoarthritis of right knee Urinary incontinence History of CVA (cerebrovascular accident) (~2018) Protrusion of lumbar intervertebral disc History of rib fracture Peripheral vascular disease GERD (gastroesophageal reflux disease) Obstructive sleep apnea BPH (benign prostatic hyperplasia) Anxiety and depression Paroxysmal atrial fibrillation COPD (chronic obstructive pulmonary disease) Obesity (BMI 30-39.9) Hypercholesterolemia Hypertension Anemia Current use of anticoagulant therapy Surgical History History of pacemaker History of colonoscopy History of total right hip replacement (~2016) History of transurethral resection of prostate History of tonsillectomy History of left knee replacement (~2007) Family History Family History Father No problems noted. Mother Hx of type 1 diabetes mellitus Social History Social History Household Members: Spouse Housing: Apartment Housing Other:: Home for the elderly Do you presently have visiting nurse or other home services: Yes Alcohol intake: never Patient Tobacco Use Status: Never used Tobacco Years Smoked: 30 yrs ago Smoked in Last 30 Days: No Second Hand Smoke Exposure: No Use of substances other than those prescribed or required for medical reasons: No Advance Directives: Yes Advance Directives on File: Yes Advance Directives Date on File: 04/06/20 service: No Current occupational status: unemployed and retired Current occupation: Right Handed Physical Exam Vital Signs: Vital Signs: Last Vital Signs Temp 98.3 F 12/06/22 01:08 Pulse 85 12/06/22 04:07 Resp 18 12/06/22 04:07 BP 165/66 H 12/06/22 04:07 Pulse Ox 96 12/06/22 04:07 O2 Del Method Room Air 12/06/22 01:08 BMI result Body Mass Index 33.6 Vital signs were unremarkable except for an elevated systolic blood pressure of 180. Exam General: Awake, alert in no distress Head: Normocephalic, atraumatic EENT: PERRL, Lids normal, sclera normal, conjunctiva normal, nose normal , ears normal, throat without erythema or exudates Neck: Supple, no adenopathy, trachea midline and nontender Lung: breath sounds symmetric, no wheezing, rales or rhonchi Chest: symmetric movement, nontender Heart: regular rate and rhythm, normal S1, S2 no murmurs or rubs Abdomen: soft, my left-sided abdominal tenderness, mild to moderate suprapubic tender, nondistended, normal bowel sounds, no rebound Back: no vertebral tenderness, no CVAT Extremities: no deformities, moves all extremities symmetrically Skin: no rashes, no lesion, normal color and warmth Neuro: Awake, alert, oriented speech is dysarthric comprehensive cranial nerves intact the patient is edentulous, there is a slight down return to his lip but I think it secondary to having no T, he is able to hold air in his cheeks without any difficult moves all extremities symmetrically, with normal stray Psych: Pleasant, cooperative Medications Administered Discontinued Medications Generic Name Dose Route Start Last Admin Trade Name Moise PRN Reason Stop Dose Admin Hydromorphone HCl 0.5 mg 12/06/22 01:08 12/06/22 01:24 Hydromorphone Hcl 0.5 Mg/0.5 Ml Syringe IVPUSH 12/06/22 01:09 0.5 mg ONCE ONE Administration Protocol Ondansetron HCl 4 mg 12/06/22 01:08 12/06/22 01:24 Ondansetron Hcl 4 Mg/2 Ml Vial IVPUSH 12/06/22 01:09 4 mg ONCE ONE Administration Medical Decision Making Medical Decision Making MDM Narrative: 87-year-old male history of hypertension, TIA, diverticulitis hypertrophic cardiomyopathy, diastolic CHF, paroxysmal atrial fibrillation high cholesterol, COPD, GERD peripheral neuropathy, BPH, anxiety, depression, anemia, hypogammaglobulinemia who was brought to the emergency department for evaluation of possible stroke. physical examination revealed the patient was oriented, he does have dysarthric speech but I did not see an obvious facial droop. given his headache and the fact that he is on rivaroxaban, he was sent directly to the CT scan to rule out stroke cerebral bleed. radiologist interpreted the CT scan is no acute bleed or stroke, the patient does have chronic changes in the right basal ganglia on region. following evaluation was ordered: CBC, BMP, liver, lipase, CK, ESR, CRP, troponin, PT/ INR, PTT, CT scan of the brain without IV contrast, CT scan abdomen pelvis with IV contrast 04:42 The patient's laboratory evaluation revealed normal WBC but elevated CRP and ESR. Patient has chronic anemia. Patient's LFTs and lipase were normal. CT scan of the patient's brain revealed no acute bleed or stroke. CT scan of the abdomen pelvis did reveal mild uncomplicated diverticulitis. Given the patient's age and his hypogammaglobulinemia, I I believe they would benefit from being hospitalized and receiving IV antibiotics for his diverticulitis. Patient was treated with Zosyn 4.5 g IV Patient's pain did improve after receiving IV Dilaudid. I will did discuss admission with the covering hospitalist, Dr. Stark and the patient will be admitted to the hospital service. Differential Diagnosis Differential Diagnoses: The differential diagnosis associated with the presentation includes Differential diagnosis includes was not limited to stroke, cerebral bleed, diverticulitis, pancreatitis. Electrolyte abnormality, anemia Admission/Observation Consideration of admission/observation: Escalation of care including admission/observation considered Consult Healthcare Provider Management of the patient was discussed with: Hospitalist Lab Data MDM Lab Attestation statement: I reviewed the patient's lab results. My interpretation patient's laboratory evaluation is as follows: WBC was normal. Patient's chronic anemia with an H&H of 10 and 33.2. Patient's INR and PTT were elevated at 3.0 and 36.7. PTT was elevated 43.1. This is most likely caused by the rivaroxaban. Patient's CRP and ESR elevated 2.82 and 58. Patient's liver tests and lipase were normal. 12/06/22 01:01 12/06/22 01:01 Labs: Lab Results 12/06/22 12/06/22 12/06/22 Range/Units 01:01 01:34 01:59 WBC 8.5 (4.8-10.8) X10*3/uL RBC 3.91 L (4.60-5.80) X10*6/uL Hgb 10.6 L (14.0-18.0) g/dl Hct 33.2 L (42.0-52.0) % MCV 84.9 (80.0-98.0) fL MCH 27.1 (27.0-33.0) pg MCHC 31.9 (31.0-36.0) g/dl RDW 14.6 (11.0-16.0) % Plt Count 235 (160-400) X10*3/uL MPV 10.1 (9.4-12.4) fL Immature Gran % (Auto) 0.4 (0.0-0.4) % Neut % (Auto) 57.7 (45-73) % Lymph % (Auto) 25.5 (20-40) % Menard % (Auto) 9.4 (2-11) % Eos % (Auto) 6.5 H (0-4) % Baso % (Auto) 0.5 (0-2) % Lymph # (Auto) 2.2 (1.2-4.9) X10*3/uL Menard # (Auto) 0.8 (0.1-1.2) X10*3/uL Eos # (Auto) 0.6 H (0.0-0.4) X10*3/uL Baso # (Auto) 0.0 (0.0-0.2) X10*3/uL Abs Immat Gran (auto) 0.03 (0.00-0.03) X10*3/uL Absolute Neuts (auto) 4.9 (2.0-8.3) x10*3/uL Absolute Nucleated RBC 0.000 (0.0-0.012) X10*3/uL Nucleated RBC % (auto) 0.0 (0.0-0.2) /100WBC ESR 58 H (0-15) MM/HR PT 36.7 H (11.1-13.3) SEC Whole Blood PT 29.5 H (11.1-13.5) sec INR 3.0 H (0.9-1.1) Whole Blood INR 2.5 H (0.9-1.1) APTT 43.1 H D (26.0-36.4) SEC Sodium 141 (135-145) mmol/L Potassium 4.0 (3.3-5.1) mmol/L Chloride 109 H (96-108) mmol/L Carbon Dioxide 21 L (22-29) mmol/L Anion Gap 15 (12-20) BUN 18 H (9-16) mg/dL Creatinine 0.98 (0.5-1.4) mg/dL Estim Creat Clear Calc 58.2 Estimated GFR > 60 POC Glucose 91 (60-115) mg/dL Random Glucose 98 (60-115) mg/dL Calcium 9.2 (8.4-10.2) mg/dL Total Bilirubin 0.3 (0.0-1.0) mg/dL Direct Bilirubin 0.1 (0.0-0.5) mg/dL AST 29 (5-37) U/L ALT 20 (0-40) U/L Alkaline Phosphatase 76 (39-117) U/L Total Creatine Kinase 37 L (38-174) U/L Troponin I High Sens 5.9 (<3.5-35.0) ng/L C-Reactive Protein 2.82 H (< or = 0.50) mg/dL Total Protein 6.3 L (6.5-8.0) g/dL Albumin 3.5 (3.5-5.0) g/dL Lipase 14 (8-78) U/L Independent Interpretation I performed an independent interpretation of an: EKG Interpretation: my independent interpretation patient's 12 EKG is as follows paced rhythm with a rate of 70 Radiology Impression Discussion of test interpretation with radiology: I have reviewed the radiologist's reading. Radiologist Impression: CT head for stroke IMPRESSION: No acute intracranial pathology. This critical result was discussed with Dr Donato at 12/06/2022 12:49 AM and it was ascertained that the content and urgency of the report was understood at the time of direct communication. Dictated By: Mukund Jordan MD CT abdomen pelvis wo IV con IMPRESSION: * Mild acute uncomplicated diverticulitis at the junction of the descending and sigmoid colon. * Pancolonic diverticulosis. Fleischner guidelines were followed. Dictated By: Mukund Jordan MD Chronic Conditions Patient?s care impacted by: Hypertension and Other ( COPD, hypogammaglobulinemia) Critical Care Time Critical Care Time Critical Care Time: Yes Total Critical Care Time: 45 Attestation: Critical Care: The patient was critically ill with a high probability of imminent or life threatening deterioration. I spent greater than 30 minutes of discontinuous time evaluating the patient,delivering critical care at the bedside, discussing and evaluating pertinent data with consultants. Critical care time does not include time spent performing separately billable procedures or teaching. Total time spent performing critical care was 45 minutes. Discharge Plan Discharge Patient Disposition: Admitted As Inpatient Prescriptions: No Action tamsulosin 0.4 mg capsule 0.4 mg PO DAILY 90 Days Qty: 90 3RF verapamil 180 mg capsule,ext rel. pellets 24 hr 180 mg PO DAILY Qty: 90 3RF pantoprazole 40 mg tablet,delayed release (DR/EC) 40 mg PO DAILY@0630 Qty: 30 3RF furosemide 40 mg tablet 40 mg PO DAILY Qty: 30 5RF atorvastatin 80 mg tablet 80 mg PO BEDTIME potassium chloride 10 mEq tablet extended release 1 tab PO BID aspirin 81 mg capsule 81 mg PO DAILY Qty: 30 0RF Xarelto 20 mg tablet 20 mg PO DAILY docusate sodium 100 mg capsule 100 mg PO BID sennosides [senna] 8.6 mg tablet 8.6 mg PO BEDTIME carvedilol 25 mg tablet 25 mg PO BID
--- NOTE | 2022-12-06 00:35 | ECG_ITS ---
Test Reason : STROKE Blood Pressure : / mmHG Vent. Rate : 070 BPM Atrial Rate : 070 BPM P-R Int : 214 ms QRS Dur : 132 ms QT Int : 430 ms P-R-T Axes : 067 -29 129 degrees QTc Int : 464 ms Atrial-sensed ventricular-paced rhythm with prolonged AV conduction Abnormal ECG When compared with ECG of 16-OCT-2022 09:14, Vent. rate has increased BY 7 BPM Referred By: Darryl Donato Electronically Signed By:MARIA FERNANDA ZHANG MD
[2022-12-06 01:06] LABS: MANUAL DIFF FLAG NO
[2022-12-06 01:09] LABS: Basophils Percent Auto 0.5 % (0-2); Eosinophils Absolute Auto 0.6 X10*3/uL (0.0-0.4); Eosinophils Percent Auto 6.5 % (0-4); Hematocrit 33.2 % (42.0-52.0); Hemoglobin 10.6 g/dl (14.0-18.0); Imm Gran Abs Auto 0.03 X10*3/uL (0.00-0.03); Imm Gran Pct Auto 0.4 % (0.0-0.4); Lymphocytes Absolute Auto 2.2 X10*3/uL (1.2-4.9); Lymphocytes Percent Auto 25.5 % (20-40); Mean Corpuscular HGB Conc 31.9 g/dl (31.0-36.0); Mean Corpuscular Hemoglobin 27.1 pg (27.0-33.0); Mean Corpuscular Volume 84.9 fL (80.0-98.0); Mean Platelet Volume 10.1 fL (9.4-12.4); Monocytes Absolute Auto 0.8 X10*3/uL (0.1-1.2); Monocytes Percent Auto 9.4 % (2-11); Neutrophils Absolute Auto 4.9 x10*3/uL (2.0-8.3); Neutrophils Percent Auto 57.7 % (45-73); Platelet Count 235 X10*3/uL (160-400); Red Blood Count 3.91 X10*6/uL (4.60-5.80); Red Cell Distribution Width 14.6 % (11.0-16.0); White Blood Count 8.5 X10*3/uL (4.8-10.8)
[2022-12-06 01:10] LABS: Glucose, Whole Blood 91 mg/dL (60-115)
--- NOTE | 2022-12-06 01:12 | PC.NURSE ---
Pt presents to ED via EMS. Pt called 911 for a headache and hypertension that started at 1700. When EMS arrived, crew noted slight left sided facial droop and dysphasia. Pt reports he has a history of frequent headaches and has had a stroke in the past. Pt is on blood thinners. Pt is also complaining of left sided abdominal pain 7/10, and loose, bloody stool. Pt is A&Ox4, GCS 15, with warm, dry skin. Eyes are PERRLA, strength and movement equal in all four extremities. Dr Donato assessed pt while on EMS stretcher and sent pt directly to CT, then moved to bed 5. EKG obtained. Pt is a hard stick, multiple attempts were made to place an IV.
[2022-12-06] MEDS: ondansetron HCL 4 MG/2 ML VIAL IVPUSH (01:24)
[2022-12-06] MEDS: HYDROmorphone HCl 0.5 MG/0.5 ML SYRINGE IVPUSH (01:24)
--- OUTSIDE RECORDS SUMMARY | 2022-12-06 01:24 | XMS_ITS | Continuity of Care Document ---
Author Name Unknown Organization [facility] Address [address] [place] [address] [address] [place] [address]- Care Team Providers [employer] Controls Engineer Name Role Phone Snehal West MD Primary Care Physician [phone] Encounter [facility] Date(s): 01/13/22 - 01/20/[address] [place] [address]- Attending Physician: Joseph Espinoza MD Referring Physician: Snehal West MD Allergies, Adverse Reactions, Alerts Substance Reaction Severity Status Lipitor Body Aches Active apixaban 1 Active 1caused entire body to itch Immunizations Given and Recorded Vaccine Date Status Refusal Reason SARS-CoV-2 (COVID-19) mRNA-1273 vaccine 05/24/20 R ecorded SARS-CoV-2 (COVID-19) mRNA-1273 vaccine 04/23/20 R ecorded influenza virus vaccine, inactivated 12/14/15 Give n influenza virus vaccine, inactivated 12/21/14 Give n influenza virus vaccine, inactivated 1 12/24/13 Re corded pneumococcal 13-valent vaccine 11/15/14 Given Zostavax (oldterm) 2 12/24/13 Given pneumococcal 23-valent vaccine 3 09/20/12 Given tetanus/diphtheria/pertussis, acel(Tdap) 4 09/20/12 Given 1Result Comment: [03/03/2014] [facility] 2Admin Note: [facility] 3Admin Note: VIS GIVEN VIS DATE 05/2008 4Admin Note: VIS GIVEN VIS DATE 03/18/2011 Medications atorvastatin 80 mg oral tablet 1 tablet = 80 mg, By Mouth, Daily, # 30 tablet, 11 Refills, Maintenance, Tablet, Route to Pharmacy Electronically, [id number], [facility] Start Date: 12/05/16 Stop Date: 11/30/17 Status: Ordered Breo Ellipta 200 mcg-25 mcg/inh inhalation powder 1 puffs, Inhalation, Daily, 0 Refills, Maintenance, 11/17/19 12:32:00 EDT, Powder Start Date: 11/17/19 Status: Ordered Cerovite Senior Therapeutic Multiple Vitamins with Minerals oral tablet 1 tablet, By Mouth, Daily, # 30 tablet, 5 Refills, Maintenance, 07/02/17 20:44:46 EDT, Tablet, 1 tablet By Mouth Daily,x30 days Start Date: 07/02/17 Stop Date: 12/29/17 Status: Ordered chlorthalidone 25 mg oral tablet 25 mg, 1, tablet, By Mouth, Daily, # 30 tablet, Refills 11, Tot. Refills 11, Maintenance, 12/05/16 9:25:33, Route to Pharmacy Electronically, [id number], [facility] Start Date: 12/05/16 Stop Date: 11/30/17 Status: Ordered Coreg 25 mg oral tablet 25 mg, By Mouth, 2 times a day, # 60 tablet, Refills 11, Tot. Refills 11, Maintenance, 12/05/16 9:23:00, Route to Pharmacy Electronically, [id number], [id number] Start Date: 12/05/16 Stop Date: 11/30/17 Status: Ordered ferrous sulfate 325 mg oral enteric coated tablet 325 mg, 1, tablet, By Mouth, Daily, # 30 tablet, Refills 0, Maintenance, 07/25/20 0:00:00 EDT, Partial fill upon patient request if the prescription is for a schedule II opioid drug. Start Date: 07/25/20 Status: Ordered losartan 100 mg oral tablet 1 tablet = 100 mg, By Mouth, Daily, Bubble Packing, # 30 tablet, 11 Refills, Maintenance, 12/05/16 9:23:00, Tablet Start Date: 12/05/16 Stop Date: 10/8/18 Status: Ordered pantoprazole 40 mg oral delayed release tablet 1 tablet = 40 mg, By Mouth, Daily, # 30 tablet, 0 Refills, Maintenance, 11/17/19 12:47:00 EDT, EC Tablet Start Date: 11/17/19 Status: Ordered Senna Plus 50 mg-8.6 mg oral tablet 1-2 tablet, By Mouth, Daily at bedtime, as needed, # 30 tablet, 0 Refills, Maintenance, 11/18/19 12:22:00 EDT, Tablet Start Date: 11/18/19 Status: Ordered tamsulosin 0.4 mg oral capsule 0.4 mg, 1, capsule, By Mouth, Daily, Refills 0, Maintenance, 09/10/16 15:59:16 EDT Start Date: 09/10/16 Status: Ordered verapamil 180 mg oral capsule, extended release 1 capsule = 180 mg, By Mouth, Daily, Bubble Packing, # 30 capsule, 11 Refills, Maintenance, 12/05/16 9:23:00, CR Capsule Start Date: 12/05/16 Stop Date: 11/30/17 Status: Ordered VITAMIN B-12 TAB 1000MCG VITAMIN B-12 TAB 1000MCG, 1,000 mcg, By Mouth, Daily, 0 Refills, Maintenance, 07/25/20 0:00:00 EDT Start Date: 07/25/20 Status: Ordered Vitamin C 500 mg oral tablet 1 tablet = 500 mg, By Mouth, Daily, # 30 tablet, 0 Refills, Maintenance, 07/25/20 0:00:00 EDT, Tablet, Partial fill upon patient request if the prescription is for a schedule II opioid drug. Start Date: 07/25/20 Status: Ordered Xarelto 20 mg oral tablet 1 tablet = 20 mg, By Mouth, Daily before dinner, 0 Refills, Maintenance, 10/08/20 11:21:00 EDT, Partial fill upon patient request if the prescription is for a schedule II opioid drug. 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 [place] (myocardial infarction) 1 Confirmed Active Obese class II Confirmed Active Obstructive sleep apnea Confirmed Active OA (osteoarthritis) of hip 2, 3 Confirmed Active Intermittent right upper quadrant abdominal discomfort Confirmed Active Tonsillectomy without Adenoidectomy Confirmed Active Total Knee Replacement 4 Confirmed Active Treatment-emergent central sleep apnea Confirmed Active 1In [place] in 1992 2s/p THR on 01/21/16 3Severe with Trochanteric Bursitis 4Left Procedures Procedure Date Related Diagnosis Body Site Status Total replacement of left knee joint Completed Total replacement of right hip joint Completed Vital Signs Most recent to oldest [Reference Range]: 1 Height 158 cm (01/13/22 1:26 PM) Weight 93.4 kg (01/13/22 1:26 PM) Pulse Rate [55-90 bpm] 60 bpm (01/13/22 1:26 PM) Body Mass Index [18.5-24.99 kg/m2] 37.41 kg/m2 *>HHI* (01/13/22 1:26 PM) Blood Pressure [90-138/55-84 mm Hg] 145/ 71mm Hg *H* (01/13/22 1:26 PM) Respiratory Rate [16-30 br/min] 18 br/mi n (01/13/22 1:26 PM) Temperature [96.8-100.4 DegF] 97.9 DegF (01/13/22 1:26 PM) Blood pressure sites Arm, right (01/13/22 1:26 PM) Temperature Route Temporal (01/13/22 1:26 PM) Weight Obtained Via Standing scale (01/13/22 1:26 PM) Social History Social History Type Response Smoking Status Former smoker, quit more than 30 days ago; Other: Quit Over 40 years ago; entered on: 01/13/22 Sex Male Note * Margarita Capone MA: PERFORM, SIGN, VERIFY Event Display: Patient Education/Instruction Authored Date: [id number] [facility] *BSA Gen Surg Clinical Summary Name MIKE TAYLOR Age 86 Years 1935 PCP Snehal West MD PCP Visit Date 01/13/2022 13:17:00 Additional Instructions: Scheduled Appointments?? Future Appointments ?No Future Appointments Scheduled Follow-Up Instructions ?? Diagnosis Medications: Please continue your medications until treatment is completed or stopped by your provider. Discuss any questions related to medications with your provider. Medications to Continue with No Changes These medications were not printed or sent to your pharmacy Ascorbic Acid (Vitamin C 500 mg oral tablet) 1 tab(s) Oral Daily. Next Dose: Atorvastatin (atorvastatin 80 mg oral tablet) 1 tab(s) Oral Daily for 30 Days. Refills: 11. Next Dose: Carvedilol (Coreg 25 mg oral tablet) 25 Milligram Oral twice a day for 30 Days. Refills: 11. Next Dose: Chlorthalidone (chlorthalidone 25 mg oral tablet) 1 tab(s) Oral Daily for 30 Days. Refills: 11. Next Dose: Docusate-Senna (Senna Plus 50 mg-8.6 mg oral tablet) 1-2 tablet Oral Daily at Bedtime. as needed. Next Dose: Ferrous Sulfate (ferrous sulfate 325 mg oral enteric coated tablet) 1 tab(s) Oral Daily. Next Dose: fluticasone-vilanterol (Breo Ellipta 200 mcg-25 mcg/inh inhalation powder) 1 puff(s) Inhalation Daily. Next Dose: Losartan (losartan 100 mg oral tablet) 1 tab(s) Oral Daily for 30 Days. Bubble Packing. Refills: 11. Next Dose: Miscellaneous Rx (VITAMIN B-12 TAB 1000MCG) 1,000 Microgram Oral Daily. Next Dose: Multivitamin With Minerals (Cerovite Senior Therapeutic Multiple Vitamins with Minerals oral tablet) 1 tab(s) Oral Daily for 30 Days. Refills: 5. Next Dose: Pantoprazole (pantoprazole 40 mg oral delayed release tablet) 1 tab(s) Oral Daily. Next Dose: rivaroxaban (Xarelto 20 mg oral tablet) 1 tab(s) Oral Daily before dinner. Next Dose: Tamsulosin (tamsulosin 0.4 mg oral capsule) 1 capsule Oral Daily. Next Dose: Verapamil (verapamil 180 mg oral capsule, extended release) 1 capsule Oral Daily for 30 Days. Bubble Packing. Refills: 11. Next Dose: Allergy Info:?? apixaban; Lipitor Medications Given This Visit Future Orders ?No future orders Vital Signs Height 158 cm Weight 93.4 kg BMI 37.41 kg/m2 Blood Pressure 145 mm Hg/71 mm Hg Temperature 97.9 DegF Pulse Rate 60 bpm Respiratory Rate 18 br/min 02 Sat Mode of Delivery / You can now view a summary of your hospital visit from the comfort of your home through a free online portal called [employer]. [employer] is a website that allows you to securely view your medical information including discharge summary, medications and follow-up visits. ??You can alsosend a secure electronic message to your doctor???s office to request appointments, renew medications or just ask a question. You can enroll at [email or web address] or register during your next office visit. Disclaimer:?? The information provided is of a general nature and is intended to be used in conjunction with the recommendations and advice of your health care practitioner. ??Every effort has been made to ensure that the information provided is accurate and complete at the time it is provided to you however, as your needs change, or, as new ??information becomes available, different or additional instructions may be required. If you have questions, please consult with your primary care provider or pharmacist, as appropriate. ??This information is not intended to serve as substitution for assessment and evaluation by a qualified health care provider. If you do not have a primary care provider, you may find a [facility] provider by calling [facility] [employer] at [phone]. For information about the plan of care including goals and instructions for your diagnosis, please see the patient education orders section of this document. Patient Education Materials?? The content of this educational material or handout may have been modified, supplemented, or adapted from its original content and format to support your individualized medical care. Please follow instructions discussed with your provider during this visit as well as any education documents you were given today. Patient Care team information Care Team Personnel Name: Snehal West MD Position: [facility] Physician -Physician Practices Member Role: PCP Address: Address: [address] [place] [id number] Name: Raquel Carlos RN Position: [facility] RN Member Role: Primary Care Nurse Name: Christelle Chamberlain RN Position: [facility] RN Member Role: Primary Care Nurse Name: Arti Nava RN Position: [facility] RN Member Role: Primary Care Nurse Name: Kimmie Montague RN Position: [facility] RN Member Role: Primary Care Nurse Name: Irene Schwarz RN Position: [facility] RN Member Role: Primary Care Nurse Name: Karmen Fajardo RN Position: [facility] Hospital [employer] Sales Representative Member Role: Primary Care Nurse Care Team Related Persons Name: TAYLOR, AGGIE Address: [address] [address]
--- OUTSIDE RECORDS SUMMARY | 2022-12-06 01:24 | XMS_ITS | Continuity of Care Document ---
Author Name Unknown Organization [facility] Address [address] [place] [address]- Care Team Providers Care Map Clerk Name Role Phone Po Kneny ARMENTA Primary Care Physician Encounter [facility] Date(s): 11/17/19 - 11/20/[address] [address]- [facility] Encounter Diagnosis Fever(Final) - 11/17/19 Discharge Disposition: A-D/C Home Attending Physician: Zan Segura MD, Gera Reagan Admitting Physician: Lisa ARMENTA, Lay Collado Referring Physician: Not on Staff, Referring MD Allergies, Adverse Reactions, Alerts Substance Reaction Severity Status Lipitor Active apixaban 1 Active 1caused entire body to itch Immunizations Given and Recorded Vaccine Date Status Refusal Reason influenza virus vaccine, inactivated 12/14/15 Give n [...] Refills, Maintenance, Tablet, Route to Pharmacy Electronically, [id number], [facility] Start Date: 10/13/17 Stop Date: 11/30/17 Status: Ordered Breo Ellipta [...] Maintenance, 12/05/16 9:25:33, Route to Pharmacy Electronically, [id number], [facility] Start Date: 12/05/16 Stop Date: 11/30/17 Status: Ordered ciprofloxacin 500 mg oral tablet = 10 mg/kg, By Mouth, Every 12 hours, for 3 days, # 6 tablet, 0 Refills, Acute 11/23/19 13:31:00 EDT, 11/20/19 13:31:00 EDT, Tablet, [facility], 158, cm, 11/20/19 8:41:00 EDT, Height,100, kg, 11/18/19 18:00:00 EDT, Dry Weight Start Date: 11/20/19 Stop Date: 11/23/19 Status: Ordered Coreg 25 mg oral tablet 25 mg, By Mouth, 2 times a day, # 60 tablet, Refills 11, Tot. Refills 11, Maintenance, 12/05/16 9:23:00, Route to Pharmacy Electronically, [id number], [id number] Start Date: 12/05/16 Stop Date: 11/30/17 Status: Ordered Cymbalta 30 mg oral enteric coated capsule 1 capsule = 30 mg, By Mouth, Daily, do not crush or chew, # 30 capsule, 2 Refills, Maintenance, 03/06/17 11:06:05 Start Date: 03/06/17 Stop Date: 06/04/17 Status: Ordered Flagyl 500 mg oral tablet 1 tablet = 500 mg, By Mouth, 3 times a day, for 3 days, # 9 tablet, 0 Refills, Acute 11/23/19 13:31:00 EDT, 11/20/19 13:31:00 EDT, Tablet, [facility], 158, cm, 11/20/19 8:41:00 EDT, Height, 100, kg, 11/18/19 18:00:00 EDT, Dry Weight Start Date: 11/20/19 Stop Date: 11/23/19 Status: Ordered furosemide 20 mg oral tablet 1, capsule, By Mouth, Daily, # 1 tablet, Refills 0, Maintenance, 11/18/19 12:22:00 EDT Start Date: 11/18/19 Status: Ordered lidocaine 5% topical ointment 1 application, Topically, 3 times a day, # 35 Gm, 0 Refills, Maintenance, 11/17/19 12:32:00 EDT, Ointment Start Date: 11/17/19 Status: Ordered losartan 100 mg oral tablet 1 tablet = 100 mg, By Mouth, Daily, Bubble Packing, # 30 tablet, 11 Refills, Maintenance, 12/05/16 9:23:00, Tablet Start Date: 12/05/16 Stop Date: 11/30/17 Status: Ordered pantoprazole 40 mg oral delayed [...] 15:59:16 EDT Start Date: 09/10/16 Status: Ordered terazosin 5 mg oral capsule 5 mg, 1, capsule, By Mouth, Daily at bedtime, # 30 capsule, Refills 0, Maintenance, 11/17/19 12:47:00 EDT Start Date: 11/17/19 Status: Ordered verapamil 180 mg oral capsule, extended release 1 capsule = 180 mg, By Mouth, Daily, Bubble Packing, # 30 capsule, 11 Refills, Maintenance, 12/05/16 9:23:00, CR Capsule Start Date: 12/05/16 Stop Date: 11/30/17 Status: Ordered warfarin 5 mg oral tablet 1 tablet = 5 mg, By Mouth, Daily, # 30 tablet, 0 Refills, Maintenance, 11/18/19 12:24:00 EDT, Tablet Start Date: 11/18/19 Status: Ordered Problem List Condition Effective Dates Status Health Status Inform ant Atrial fibrillation(Confirmed) Active BPH (benign prostatic hyperplasia)(Confirmed) Active Chronic pain(Confirmed) Active De Quervain's tenosynovitis(Confirmed) Active Hyperlipidemia NOS(Confirmed) Active Hypertension(Confirmed) Active 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) Active [place] (myocardial infarction)(C onfirmed) 1 Active OA (osteoarthritis) of hip(C onfirmed) 2, 3 Active Tonsillectomy without Adenoidectomy(Confirmed) Active Total Knee Replacement(Confirmed) 4 Active 1In [place] in 1992 2s/p THR on 01/21/16 3Severe with Trochanteric Bursitis 4Left Results Orders for Microbiology Reports Name Date Blood Culture 11/17/19 Blood Culture #2 11/17/19 Microbiology Reports TEST:Blood Culture, Second Order STATUS:Unauthenticated BODY SITE: SOURCE:Blood COLLECTED DATE/TIME:11/17/19 1:29 PM Blood Culture, Second Order SPECIMEN DESCRIPTION : BLOOD L HAND SPECIAL REQUESTS : NONE CULTURE : NO GROWTH 3 DAYS REPORT STATUS : PRELIMINARY REPORT TEST:Blood Culture STATUS:Unauthenticated BODY SITE: SOURCE:Blood COLLECTED DATE/TIME:11/17/19 1:04 PM Blood Culture SPECIMEN DESCRIPTION : BLOOD R SPECIAL REQUESTS : NONE CULTURE : NO GROWTH 3 DAYS REPORT STATUS : PRELIMINARY REPORT Radiology Reports * Exam Date Time Procedure Performing Provider Status 11/16/19 11:01 PM Chest Portable Do Jimenez; Aut h (Verified) Notes: (Chest Portable) Reason For Exam: Shortness of Breath RESULT: Chest Portable Chest Portable AP upright and 54 hours Hx of Present Illness: pt presents w CC of general malaise w onset of fever;pt reports being seen at [place] [facility], dx w gastritis appx 4 days RN SURGERY ICU COMPARISON: 04/30/2015 FINDINGS: LINES AND TUBES: None. LUNGS AND PLEURA: Clear lungs. Normal pulmonary vascularity. No pleural effusion. No pneumothorax. HEART, MEDIASTINUM AND MARTIN: Heart is normal in size. Aorta is mildly calcified. BONES AND SOFT TISSUES: No acute abnormality. 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 IMPRESSION: No acute abnormality. WSN: [id number] Ordering Physician: Lance Sheppard Dictated By: Werner Lew DO Dictated Date/Time: 11/16/19 11:12 p Reviewed By: Werner Lew DO Signed By: Werner Lew DO Signed Date/Time: 11/16/19 11:12 pm Transcribed By: RADU Transcribed Date/Time: 11/16/19 11:11 pm Vital Signs Most recent to oldest [Reference Range]: 1 2 3 4 Height 158 cm (11/20/19 8:41 AM) 158 cm (11/20/19 1:22 AM) 158 cm (11/19/19 8:41 PM) Weight 83.1 kg (11/20/19 1:22 AM) 78.5 kg (11/19/19 2:55 AM) 101 kg (11/18/19 6:00 PM) Oxygen Saturation [94-100 %] 100 % (11/20/19 8:41 AM) 98 % (11/20/19 1:22 AM) 97 % (11/19/19 8:41 PM) Pulse Rate [55-90 bpm] 63 bpm (11/20/19 8:41 AM) 63 bpm (11/20/19 8:09 AM) 63 bpm (11/20/19 8:09 AM) Body Mass Index [18.5-24.99] 33.29 *>HHI* (11/20/19 1:22 AM) 31.45 *>HHI* (11/19/19 2:55 AM) 40.46 *>HHI* (11/18/19 6:00 PM) Blood Pressure [90-138/55-84 mm Hg] 180/68mm Hg *H* (11/20/19 8:41 AM) 171/70mm Hg *H* (11/20/19 8:09 AM) 171/70mm Hg *H* (11/20/19 8:09 AM) 171/70mm Hg *H* (11/20/19 8:09 AM) Respiratory Rate [16-30 br/min] 18 br/min (11/20/19 8:41 AM) 18 br/min (11/20/19 1:22 AM) 18 br/min (11/19/19 8:41 PM) Temperature [96.8-100.4 DegF] 98.5 DegF (11/20/19 8:41 AM) 98.5 DegF (11/20/19 1:22 AM) 98.7 DegF (11/19/19 8:41 PM) Mode of Delivery (Oxygen) Room air (11/20/19 8:41 AM) Room air (11/20/19 1:22 AM) Room air (11/19/19 8:41 PM) Blood pressure sites Arm, right (11/20/19 8:41 AM) Arm, right (11/20/19 1:22 AM) Arm, right (11/19/19 8:41 PM) Temperature Route Oral (11/20/19 8:41 AM) Oral (11/20/19 1:22 AM) Oral (11/19/19 8:41 PM) Dry Weight 100 kg (11/18/19 6:00 PM) Weight Obtained Via Bed scale (11/20/19 1:22 AM) Bed scale (11/19/19 2:55 AM) Bed scale (11/18/19 6:00 PM) Dry Weight Obtained Via Patient/family stated (11/18/19 6:00 PM) Social History Social History Type Response Smoking Status Never smoker entered on: 01/21/16 Sex Male
--- OUTSIDE RECORDS SUMMARY | 2022-12-06 01:24 | XMS_ITS | Continuity of Care Document ---
Author Name Unknown Organization [facility] ter Address [address] [place] [address]- Care Team Providers Care Marine Service Station Attendant Name Role Phone Po Kenny ARMENTA Primary Care Physician [place] [facility] - 02/03/[address] [address]- [facility] Attending Physician: Marisela Austin Allergies, Adverse Reactions, Alerts Substance Reaction Severity [...] Note: VIS GIVEN VIS DATE 03/18/2011 Medications acetaminophen 325 mg oral tablet 650 mg, By Mouth, Every 6 hours, PRN, Refills 0, Maintenance, as needed for pain, 01/24/16 9:58:26 Start Date: 01/24/16 Status: Ordered albuterol CFC free 90 mcg/inh inhalation aerosol 2, puffs, Inhalation, Every 4 hours, PRN, bubble pack dept, # 18 Gm, Refills 11, Tot. Refills 11, Maintenance, 12/05/16 9:23:00, Inhaler, Route to Pharmacy Electronically, [id number], [facility] Start Date: 12/05/16 Stop Date: 11/30/17 Status: Ordered atorvastatin 80 mg oral tablet 1 tablet = 80 mg, By Mouth, Daily, # 30 tablet, 11 Refills, Maintenance, Tablet, Route to Pharmacy Electronically, [id number], [facility] Start Date: 12/05/16 Stop Date: 11/30/17 Status: Ordered BiPAP Machine See Instructions, # 1 each, Maintenance, Patient should be started on BiPAP 19/14 cm H2O with a heated humidifier. Recommend ordering a machine with compliance data capabilities and following residual AHI. SENT TO [facility], 01/06/17 13:41:27, Compound Start Date: 01/06/17 Status: Ordered Cerovite Senior Therapeutic Multiple Vitamins [...] Maintenance, 12/05/16 9:25:33, Route to Pharmacy Electronically, [id number], [facility] Start Date: 12/05/16 Stop Date: 11/30/17 Status: Ordered Coreg 25 mg oral tablet 25 mg, By Mouth, 2 times a day, # 60 tablet, Refills 11, Tot. Refills 11, Maintenance, 12/05/16 9:23:00, Route to Pharmacy Electronically, [id number], [id number] Start Date: 12/05/16 Stop Date: 11/30/17 Status: Ordered Cymbalta 30 mg oral enteric coated capsule 1 capsule = 30 mg, By Mouth, Daily, do not crush or chew, # 30 capsule, 2 Refills, Maintenance, 03/06/17 11:06:05 Start Date: 03/06/17 Stop Date: 06/04/17 Status: Ordered docusate sodium 100 mg oral capsule 100 mg, 1, capsule, By Mouth, 2 times a day, PRN, use only as needed do not put in medi bubble withplenty of water, # 60 capsule, Refills 5, Tot. Refills 5, Maintenance, for constipation, 12/04/16 15:44:38, Route to Pharmacy Electronically, [id number] Start Date: 12/04/16 Stop Date: 06/02/17 Status: Ordered famotidine 20 mg oral tablet 20 mg, By Mouth, Daily, PRN, Take once/day for now., # 30 tablet, Refills 2, Tot. Refills 2, Maintenance, Dyspepsia, 12/04/16 15:45:24, Route to Pharmacy Electronically, [id number], [facility] Start Date: 12/04/16 Stop Date: 03/04/17 Status: Ordered losartan 100 mg oral tablet 1 tablet = 100 mg, By Mouth, Daily, Bubble Packing, # 30 tablet, 11 Refills, Maintenance, 12/05/16 9:23:00, Tablet Start Date: 12/05/16 Stop Date: 11/30/17 Status: Ordered nabumetone 500 mg oral tablet 1 tablet = 500 mg, By Mouth, 2 times a day, # 28 tablet, 1 Refills, Maintenance, 02/09/17 10:14:50,Tablet Start Date: 02/09/17 Stop Date: 03/09/17 Status: Ordered omeprazole 20 mg oral delayed release tablet 1 tablet = 20 mg, By Mouth, Daily, # 30 tablet, 2 Refills, Maintenance, 01/07/17 9:32:07 Start Date: 01/07/17 Status: Ordered tamsulosin 0.4 mg oral capsule Refills 0, Maintenance, 09/10/16 15:59:16 Start Date: 09/10/16 Status: Ordered tiZANidine 2 mg oral tablet 2 mg, 1, tablet, By Mouth, 3 times a day, # 90 tablet, Refills 1, Tot. Refills 1, Maintenance, 05/03/18 8:55:40 EDT, Route to Pharmacy Electronically, [id number], [facility], further refills to be done from pcp, h... Start Date: 05/03/18 Stop Date: 07/02/18 Status: Ordered verapamil 180 mg oral capsule, extended release 1 capsule = 180 mg, By Mouth, Daily, Bubble Packing, # 30 capsule, 11 Refills, Maintenance, 12/05/16 9:23:00, CR Capsule Start Date: 12/05/16 Stop Date: 11/30/17 Status: Ordered warfarin 5 mg oral tablet See Instructions, Take up to 1 1/2 tablets daily as directed by the coumadin clini, # 45 tablet, 3 Refills, Maintenance, 12/04/16 15:45:47, replaces Pradaxa Start Date: 12/04/16 Status: Ordered Problem List Condition Effective Dates Status Health Status Inform ant Atrial fibrillation(Confirmed) Active BPH (benign prostatic hyperplasia)(Confirmed) Active Chronic pain(Confirmed) Active De Quervain's tenosynovitis(Confirmed) Active Hyperlipidemia NOS(Confirmed) Active Hypertension(Confirmed) Active 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) Active [place] (myocardial infarction)(C onfirmed) 1 Active OA (osteoarthritis) of hip(C onfirmed) 2, 3 Active Tonsillectomy without Adenoidectomy(Confirmed) Active Total Knee Replacement(Confirmed) 4 Active 1In [place] in 1992 2s/p THR on 01/21/16 3Severe with Trochanteric Bursitis 4Left Social History Social History Type Response Smoking Status Never smoker entered on: 01/21/16 Sex
--- OUTSIDE RECORDS SUMMARY | 2022-12-06 01:24 | XMS_ITS | Continuity of Care Document ---
Author Name Unknown Organization [facility] Address [address] [place] [address] [address] [place] [address]- Care Team Providers Care Pharm Spec Name Role Phone Snehal West MD Primary Care Physician [phone] [place] [facility] [place]/12/21 - 01/08/[address] [place] [address]- Attending Physician: Joseph Espinoza MD Referring Physician: [...] Refills, Maintenance, Tablet, Route to Pharmacy Electronically, [id number], [facility] Start Date: 12/05/16 Stop [...] Maintenance, 12/05/16 9:25:33, Route to Pharmacy Electronically, [id number], [facility] Start Date: 12/05/16 Stop Date: 11/30/17 Status: Ordered Coreg 25 mg oral tablet 25 mg, By Mouth, 2 times a day, # 60 tablet, Refills 11, Tot. Refills 11, Maintenance, 12/05/16 9:23:00, Route to Pharmacy Electronically, [id number], [id number] Start Date: 12/05/16 Stop Date: 11/30/17 Status: Ordered ferrous sulfate 325 mg oral enteric coated tablet 325 mg, 1, tablet, By Mouth, Daily, # 30 tablet, Refills 0, Maintenance, 07/25/20 0:00:00 EDT, Partial fill upon patient request if the prescription is for a schedule II opioid drug. Start Date: 07/25/20 Status: Ordered furosemide 40 mg oral tablet 40 mg, 1, tablet, By Mouth, Daily, # 30 tablet, Refills 0, Maintenance, 07/24/20 23:59:00 EDT, Partial fill upon patient request if the prescription is for a schedule II opioid drug. 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 [place] (myocardial infarction) 1 Confirmed Active Obese class II Confirmed Active Obstructive sleep apnea Confirmed Active OA (osteoarthritis) of hip 2, 3 Confirmed Active Tonsillectomy without Adenoidectomy Confirmed Active Total Knee Replacement 4 Confirmed Active Treatment-emergent central sleep apnea Confirmed Active 1In [place] in 1992 2s/p THR on 01/21/16 3Severe with Trochanteric Bursitis 4Left Social History Social History Type Response Smoking Status Never smoker entered on: 01/21/16 Sex Male Patient Care team information Care Team Personnel Name: Snehal West MD Position: [facility] Physician -Physician Practices Member Role: PCP Address: Address: [address] [place] [address] [address] [place] [id number] Name: Raquel Carlos RN Position: [facility] RN Member Role: Primary Care Nurse Name: Christelle Chamberlain RN Position: [facility] RN Member Role: Primary Care Nurse Name: Arti Nava RN Position: [facility] RN Member Role: Primary Care Nurse Name: Kimmie Montague RN Position: [facility] RN Member Role: Primary Care Nurse Name: Irene Schwarz RN Position: [facility] RN Member Role: Primary Care Nurse Name: Karmen Fajardo RN Position: [facility] Hospital Costumer Member Role: Primary Care Nurse Care Team Related Persons Name: AGGIE TAYLOR Address: home [address] [address]
--- OUTSIDE RECORDS SUMMARY | 2022-12-06 01:24 | XMS_ITS | Continuity of Care Document ---
Author Name Unknown Organization [facility] Address [address] [place] [address]- Care Team Providers Care Information Security Name Role Phone Jenna ARMENTA, Snehal Primary Care Physician [phone] [facility] [place] Date(s): 07/29/21 - 08/28/[address] [address] Allergies, Adverse Reactions, Alerts Substance Reaction Severity [...] Refills, Maintenance, Tablet, Route to Pharmacy Electronically, [id number], [facility] Start Date: 12/05/16 Stop Date: [...] Maintenance, 12/05/16 9:25:33, Route to Pharmacy Electronically, [id number], [facility] Start Date: 12/05/16 Stop Date: 11/30/17 Status: Ordered Coreg 25 mg oral tablet 25 mg, By Mouth, 2 times a day, # 60 tablet, Refills 11, Tot. Refills 11, Maintenance, 12/05/16 9:23:00, Route to Pharmacy Electronically, [id number], [id number] Start Date: 12/05/16 Stop Date: 11/30/17 Status: [...] opioid drug. Start Date: 07/25/20 Status: Ordered Problem List Condition Effective Dates Status Health Status Inform ant Atrial fibrillation(Confirmed) Active BPH (benign prostatic hyperplasia)(Confirmed) Active COPD without exacerbation(Confirmed) Active Chronic pain(Confirmed) Active CAD in [place] artery(Confirmed) Active De Quervain's tenosynovitis(Confirmed) Active GERD (gastroesophageal reflu x disease)(Confirmed) Active Hyperlipidemia NOS(Confirmed) Active Hypertension(Confirmed) Active 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 [place] (myocardial infarction)(C onfirmed) 1 Active Obese class II(Confirmed) Active Obstructive sleep apnea(Confirmed) Active OA (osteoarthritis) of hip(C onfirmed) 2, 3 Active Tonsillectomy without Adenoidectomy(Confirmed) Active Total Knee Replacement(Confirmed) 4 Active Treatment-emergent central s leep apnea(Confirmed) Active 1In [place] in 1992 2s/p THR on 01/21/16 3Severe with Trochanteric Bursitis 4Left Social History Social History Type Response Smoking Status Never smoker entered on: 01/21/16 Sex Male
--- OUTSIDE RECORDS SUMMARY | 2022-12-06 01:24 | XMS_ITS | Continuity of Care Document ---
Author Name Unknown Organization [facility] ter Address [address] [place] [address]- Care Team Providers Care Dental Service Technician Name Role Phone Po Kenny ARMENTA Primary Care Physician Encounter [facility] [place] Date(s): 03/03/19 - 03/10/[address] [address]- [facility] Attending Physician: Marisela Austin Allergies, Adverse Reactions, [...] 12/05/16 9:23:00, Inhaler, Route to Pharmacy Electronically, [id number], [facility] Start Date: 12/05/16 Stop Date: 11/30/17 Status: Ordered atorvastatin 80 mg oral tablet 1 tablet = 80 mg, By Mouth, Daily, # 30 tablet, 11 Refills, Maintenance, Tablet, Route to Pharmacy Electronically, [id number], [facility] Start Date: 12/05/16 Stop Date: 11/30/17 Status: Ordered BiPAP Machine See Instructions, # 1 each, Maintenance, Patient should be started on BiPAP 19/14 cm H2O with a heated humidifier. Recommend ordering a machine with compliance data capabilities and following residual AHI. SENT TO [facility], 01/06/17 13:41:27, Compound Start Date: 01/06/17 [...] Maintenance, 12/05/16 9:25:33, Route to Pharmacy Electronically, [id number], [facility] Start Date: 12/05/16 Stop Date: 11/30/17 Status: Ordered Coreg 25 mg oral tablet 25 mg, By Mouth, 2 times a day, # 60 tablet, Refills 11, Tot. Refills 11, Maintenance, 12/05/16 9:23:00, Route to Pharmacy Electronically, [id number], [id number] Start Date: 12/05/16 Stop Date: 11/30/17 Status: [...] Dyspepsia, 12/04/16 15:45:24, Route to Pharmacy Electronically, [id number], [facility] Start Date: 12/04/16 Stop [...] 05/03/18 8:55:40 EDT, Route to Pharmacy Electronically, [id number], [facility], further refills to be [...] 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) Active [place] (myocardial infarction)(C onfirmed) 1 Active OA (osteoarthritis) of hip(C onfirmed) 2, 3 Active Tonsillectomy without Adenoidectomy(Confirmed) Active Total Knee Replacement(Confirmed) 4 Active 1In [place] in 1992 2s/p THR on 01/21/16 3Severe with Trochanteric Bursitis 4Left Social History Social History Type Response Smoking Status Never smoker entered on: 01/21/16 Sex
--- OUTSIDE RECORDS SUMMARY | 2022-12-06 01:25 | XMS_ITS | Continuity of Care Document ---
Author Name Unknown Organization [facility] Address [address] [place] [address]- Care Team Providers Care Cement Worker Name Role Phone Jenna ARMENTA, Snehal Primary Care Physician [phone] [place] [facility] [place] [facility] [address] [address] Attending Physician: Le Car Admitting Physician: AdmLe pulido Referring Physician: Admtr ArAltagracia Allergies, Adverse Reactions, Alerts Substance Reaction Severity [...] Refills, Maintenance, Tablet, Route to Pharmacy Electronically, [id number], [facility] Start Date: 12/05/16 Stop [...] Maintenance, 12/05/16 9:25:33, Route to Pharmacy Electronically, [id number] Start Date: 12/05/16 Stop Date: 11/30/17 Status: Ordered Coreg 25 mg oral tablet 25 mg, By Mouth, 2 times a day, # 60 tablet, Refills 11, Tot. Refills 11, Maintenance, 12/05/16 9:23:00, Route to Pharmacy Electronically, [id number], [id number] Start Date: 12/05/16 Stop Date: 11/30/17 Status: [...] exacerbation(Confirmed) Active Chronic pain(Confirmed) Active CAD in [place] artery(Confirmed) Active De Quervain's tenosynovitis(Confirmed) Active GERD (gastroesophageal reflu x disease)(Confirmed) Active Hyperlipidemia NOS(Confirmed) Active Hypertension(Confirmed) Active 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) Active [place] (myocardial infarction)(C onfirmed) 1 Active OA (osteoarthritis) of hip(C onfirmed) 2, 3 Active Tonsillectomy without Adenoidectomy(Confirmed) Active Total Knee Replacement(Confirmed) 4 Active 1In [place] in 1992 2s/p THR on 01/21/16 3Severe with Trochanteric Bursitis 4Left Social History Social History Type Response Smoking Status Never smoker entered on: 01/21/16 Sex Male
--- OUTSIDE RECORDS SUMMARY | 2022-12-06 01:25 | XMS_ITS | Continuity of Care Document ---
Author Name Unknown Organization [facility] Address [address] [place] [address] [address] [place] [address]- Care Team Providers Care [employer] Team Member Name Role Phone Jenna ARMENTA, Snehal Primary Care Physician Encounter [facility] Date(s): 11/12/21 - 12/12/[address] [place], [place] [address] Allergies, Adverse Reactions, Alerts Substance Reaction Severity Status apixaban 1 Active Lipitor Active 1caused entire body to itch Immunizations [...] Refills, Maintenance, Tablet, Route to Pharmacy Electronically, [id number], [facility] Start Date: [...] Maintenance, 12/05/16 9:25:33, Route to Pharmacy Electronically, [id number], [facility] Start Date: 12/05/16 Stop Date: 11/30/17 Status: Ordered Coreg 25 mg oral tablet 25 mg, By Mouth, 2 times a day, # 60 tablet, Refills 11, Tot. 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
--- OUTSIDE RECORDS SUMMARY | 2022-12-06 01:25 | XMS_ITS | Continuity of Care Document ---
Author Name Unknown Organization [facility] ter Address [address] [place] [address]- Care Team Providers Care Regulator Tester Name Role Phone Po Kenny ARMENTA Primary Care Physician [phone] Encounter [facility] [place] Date(s): 02/24/19 - 02/24/[address] [address]- [facility] Attending Physician: Marisela Austin Allergies, [...] 12/05/16 9:23:00, Inhaler, Route to Pharmacy Electronically, [id number], [facility] Start Date: 12/05/16 Stop Date: 11/30/17 Status: Ordered atorvastatin 80 mg oral tablet 1 tablet = 80 mg, By Mouth, Daily, # 30 tablet, 11 Refills, Maintenance, Tablet, Route to Pharmacy Electronically, [id number], [facility] Start Date: 12/05/16 Stop Date: 11/30/17 Status: Ordered BiPAP Machine See Instructions, # 1 each, Maintenance, Patient should be started on BiPAP 19/14 cm H2O with a heated humidifier. Recommend ordering a machine with compliance data capabilities and following residual AHI. SENT TO [facility], 01/06/17 13:41:27, Compound Start Date: 01/06/17 Status: [...] Maintenance, 12/05/16 9:25:33, Route to Pharmacy Electronically, [id number], [facility] Start Date: 12/05/16 Stop Date: 11/30/17 Status: Ordered Coreg 25 mg oral tablet 25 mg, By Mouth, 2 times a day, # 60 tablet, Refills 11, Tot. Refills 11, Maintenance, 12/05/16 9:23:00, Route to Pharmacy Electronically, [id number], [id number] Start Date: 12/05/16 Stop Date: 11/30/17 Status: [...] Dyspepsia, 12/04/16 15:45:24, Route to Pharmacy Electronically, [id number], [facility] Start Date: 12/04/16 Stop [...] 05/03/18 8:55:40 EDT, Route to Pharmacy Electronically, [id number], [facility], further refills to be [...] 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) Active [place] (myocardial infarction)(C onfirmed) 1 Active OA (osteoarthritis) of hip(C onfirmed) 2, 3 Active Tonsillectomy without Adenoidectomy(Confirmed) Active Total Knee Replacement(Confirmed) 4 Active 1In [place] in 1992 2s/p THR on 01/21/16 3Severe with Trochanteric Bursitis 4Left Social History Social History Type Response Smoking Status Never smoker entered on: 01/21/16 Sex
--- OUTSIDE RECORDS SUMMARY | 2022-12-06 01:25 | XMS_ITS | Continuity of Care Document ---
Author Name Unknown Organization [facility] Address [address] [place] [address]- Care Team Providers Care Telemarketer Supervisor Name Role Phone Jenna ARMENTA, Snehal Primary Care Physician [phone] Encounter [facility] [place] Date(s): 05/13/21 - 07/23/[address] [address] Discharge Disposition: A-D/C Home Attending Physician: Arti Catalan NP Admitting Physician: Arti Catalan NP Referring Physician: Arti Catalan NP Allergies, Adverse Reactions, Alerts Substance Reaction Severity [...] Refills, Maintenance, Tablet, Route to Pharmacy Electronically, [id number], [facility] Start Date: 12/05/16 Stop [...] Maintenance, 12/05/16 9:25:33, Route to Pharmacy Electronically, [id number], [facility] Start Date: 12/05/16 Stop Date: 11/30/17 Status: Ordered Coreg 25 mg oral tablet 25 mg, By Mouth, 2 times a day, # 60 tablet, Refills 11, Tot. Refills 11, Maintenance, 12/05/16 9:23:00, Route to Pharmacy Electronically, [id number], [id number] Start Date: 12/05/16 Stop Date: 11/30/17 Status: [...] exacerbation(Confirmed) Active Chronic pain(Confirmed) Active CAD in [place] artery(Confirmed) Active De Quervain's tenosynovitis(Confirmed) Active GERD (gastroesophageal reflu x disease)(Confirmed) Active Hyperlipidemia NOS(Confirmed) Active Hypertension(Confirmed) Active 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 [place] (myocardial infarction)(C onfirmed) 1 Active Obese class II(Confirmed) Active Obstructive sleep apnea(Confirmed) Active OA (osteoarthritis) of hip(C onfirmed) 2, 3 Active Tonsillectomy without Adenoidectomy(Confirmed) Active Total Knee Replacement(Confirmed) 4 Active Treatment-emergent central s leep apnea(Confirmed) Active 1In [place] in 1992 2s/p THR on 01/21/16 3Severe with Trochanteric Bursitis 4Left Social History Social History Type Response Smoking Status Never smoker entered on: 01/21/16 Sex Male
--- OUTSIDE RECORDS SUMMARY | 2022-12-06 01:25 | XMS_ITS | Continuity of Care Document ---
Author Name Unknown Organization [facility] Address [address] [place] [address]- Care Team Providers Care Spanish Language Lecturer Name Role Phone Po Kenny ARMENTA Primary Care Physician Encounter [facility] [id number] Date(s): 04/13/19 - 04/23/19 [facility] [address] [place] [address]- [facility] Attending Physician: Le Car Admitting Physician: Admtr, Le Referring Physician: Admtr, Ar8 Allergies, Adverse Reactions, Alerts Substance Reaction Severity [...] Gm, Refills 11, Tot. Refills 11, Maintenance, 10/13/17 9:23:00, Inhaler, Route to Pharmacy Electronically, [id number], [facility] Start Date: 12/05/16 Stop Date: 11/30/17 Status: Ordered atorvastatin 80 mg oral tablet 1 tablet = 80 mg, By Mouth, Daily, # 30 tablet, 11 Refills, Maintenance, Tablet, Route to Pharmacy Electronically, [id number], [facility] Start Date: 12/05/16 Stop Date: 11/30/17 Status: Ordered BiPAP Machine See Instructions, # 1 each, Maintenance, Patient should be started on BiPAP 19/14 cm H2O with a heated humidifier. Recommend ordering a machine with compliance data capabilities and following residual AHI. SENT TO [facility], 01/06/17 13:41:27, Compound Start Date: [...] Maintenance, 12/05/16 9:25:33, Route to Pharmacy Electronically, [id number], [facility] Start Date: 12/05/16 Stop Date: 11/30/17 Status: Ordered Coreg 25 mg oral tablet 25 mg, By Mouth, 2 times a day, # 60 tablet, Refills 11, Tot. Refills 11, Maintenance, 12/05/16 9:23:00, Route to Pharmacy Electronically, [id number], [id number] Start Date: 12/05/16 Stop Date: 11/30/17 Status: [...] Dyspepsia, 12/04/16 15:45:24, Route to Pharmacy Electronically, [id number], [facility] Start Date: 12/04/16 Stop Date: [...] 05/03/18 8:55:40 EDT, Route to Pharmacy Electronically, [id number], [facility], further refills to be done [...] 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) Active [place] (myocardial infarction)(C onfirmed) 1 Active OA (osteoarthritis) of hip(C onfirmed) 2, 3 Active Tonsillectomy without Adenoidectomy(Confirmed) Active Total Knee Replacement(Confirmed) 4 Active 1In [place] in 1992 2s/p THR on 01/21/16 3Severe with Trochanteric Bursitis 4Left Social History Social History Type Response Smoking Status Never smoker entered on: 01/21/16 Sex
--- OUTSIDE RECORDS SUMMARY | 2022-12-06 01:25 | XMS_ITS | Continuity of Care Document ---
Author Name Unknown Organization [facility] ter Address [address] [place] [address]- Care Team Providers Care Combat Systems Operator Name Role Phone Po Kenny ARMENTA Primary Care Physician [place] [facility] - 04/07/[address] [address]- [facility] Attending Physician: Veda Miller Allergies, Adverse Reactions, Alerts Substance Reaction Severity [...] 12/05/16 9:23:00, Inhaler, Route to Pharmacy Electronically, [id number], [facility] Start Date: 12/05/16 Stop Date: 11/30/17 Status: Ordered atorvastatin 80 mg oral tablet 1 tablet = 80 mg, By Mouth, Daily, # 30 tablet, 11 Refills, Maintenance, Tablet, Route to Pharmacy Electronically, [id number], [facility] Start Date: 12/05/16 Stop Date: 11/30/17 Status: Ordered BiPAP Machine See Instructions, # 1 each, Maintenance, Patient should be started on BiPAP 19/14 cm H2O with a heated humidifier. Recommend ordering a machine with compliance data capabilities and following residual AHI. SENT TO [facility], 01/06/17 13:41:27, Compound Start Date: 01/06/17 Status: [...] Maintenance, 12/05/16 9:25:33, Route to Pharmacy Electronically, [id number], [facility] Start Date: 12/05/16 Stop Date: 11/30/17 Status: Ordered Coreg 25 mg oral tablet 25 mg, By Mouth, 2 times a day, # 60 tablet, Refills 11, Tot. Refills 11, Maintenance, 12/05/16 9:23:00, Route to Pharmacy Electronically, [id number], [id number] Start Date: 12/05/16 Stop Date: 11/30/17 Status: [...] Dyspepsia, 12/04/16 15:45:24, Route to Pharmacy Electronically, [id number], [facility] Start Date: 12/04/16 Stop [...] 05/03/18 8:55:40 EDT, Route to Pharmacy Electronically, [id number], [facility], further refills to be done [...]
--- OUTSIDE RECORDS SUMMARY | 2022-12-06 01:25 | XMS_ITS | Continuity of Care Document ---
Author Name Unknown Organization [facility] ter Address [address] [place] [address]- Care Team Providers Care Program Production Specialist Name Role Phone Po Kenny ARMENTA Primary Care Physician [phone] Encounter [facility] Date(s): 03/31/19 - 03/31/[address] [address]- [facility] Attending Physician: Veda Miller Allergies, Adverse Reactions, [...] 12/05/16 9:23:00, Inhaler, Route to Pharmacy Electronically, [id number], [facility] Start Date: 12/05/16 Stop Date: 11/30/17 Status: Ordered atorvastatin 80 mg oral tablet 1 tablet = 80 mg, By Mouth, Daily, # 30 tablet, 11 Refills, Maintenance, Tablet, Route to Pharmacy Electronically, [id number], [facility] Start Date: 12/05/16 Stop Date: 11/30/17 Status: Ordered BiPAP Machine See Instructions, # 1 each, Maintenance, Patient should be started on BiPAP 19/14 cm H2O with a heated humidifier. Recommend ordering a machine with compliance data capabilities and following residual AHI. SENT TO [facility], 01/06/17 13:41:27, Compound Start Date: [...] Maintenance, 12/05/16 9:25:33, Route to Pharmacy Electronically, [id number], [facility] Start Date: 12/05/16 Stop Date: 11/30/17 Status: Ordered Coreg 25 mg oral tablet 25 mg, By Mouth, 2 times a day, # 60 tablet, Refills 11, Tot. Refills 11, Maintenance, 12/05/16 9:23:00, Route to Pharmacy Electronically, [id number], [id number] Start Date: 12/05/16 Stop Date: 11/30/17 Status: [...] Dyspepsia, 12/04/16 15:45:24, Route to Pharmacy Electronically, [id number], [facility] Start Date: 12/04/16 Stop [...] 05/03/18 8:55:40 EDT, Route to Pharmacy Electronically, [id number], [facility], further refills to be [...] 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) Active [place] (myocardial infarction)(C onfirmed) 1 Active OA (osteoarthritis) of hip(C onfirmed) 2, 3 Active Tonsillectomy without Adenoidectomy(Confirmed) Active Total Knee Replacement(Confirmed) 4 Active 1In [place] in 1992 2s/p THR on 01/21/16 3Severe with Trochanteric Bursitis 4Left Social History Social History Type Response Smoking Status Never smoker entered on: 01/21/16 Sex
--- OUTSIDE RECORDS SUMMARY | 2022-12-06 01:25 | XMS_ITS | Continuity of Care Document ---
Author Name Unknown Organization [facility] Address [address] [place] [address]- Care Team Providers Care Parachute Officer Name Role Phone Jenna ARMENTA, Snehal Primary Care Physician [phone] [place] [facility]/03/[place] - 02/02/[address] [address] Attending Physician: Le Car Admitting Physician: AdmtrLe Referring Physician: Admtr, ArAltagracia Allergies, Adverse Reactions, Alerts Substance Reaction [...] Refills, Maintenance, Tablet, Route to Pharmacy Electronically, [id number], [facility] Start Date: 12/05/16 Stop [...] Maintenance, 12/05/16 9:25:33, Route to Pharmacy Electronically, [id number], [facility] Start Date: 12/05/16 Stop Date: 11/30/17 Status: Ordered Coreg 25 mg oral tablet 25 mg, By Mouth, 2 times a day, # 60 tablet, Refills 11, Tot. Refills 11, Maintenance, 12/05/16 9:23:00, Route to Pharmacy Electronically, [id number], [id number] Start Date: 12/05/16 Stop Date: 11/30/17 Status: [...] exacerbation(Confirmed) Active Chronic pain(Confirmed) Active CAD in [place] artery(Confirmed) Active De Quervain's tenosynovitis(Confirmed) Active GERD [...]
--- OUTSIDE RECORDS SUMMARY | 2022-12-06 01:25 | XMS_ITS | Continuity of Care Document ---
Author Name Unknown Organization [facility] ter Address [address] [place] [address]- Care Team Providers Care Clinical Lab Specialist Name Role Phone Po Kenny ARMENTA Primary Care Physician Encounter [facility] Date(s): 02/10/19 - 02/10/[address] [address]- [facility] Attending Physician: Marisela Austin Allergies, Adverse Reactions, [...] 12/05/16 9:23:00, Inhaler, Route to Pharmacy Electronically, [id number], [facility] Start Date: 12/05/16 Stop Date: 11/30/17 Status: Ordered atorvastatin 80 mg oral tablet 1 tablet = 80 mg, By Mouth, Daily, # 30 tablet, 11 Refills, Maintenance, Tablet, Route to Pharmacy Electronically, [id number], [facility] Start Date: 12/05/16 Stop [...] Maintenance, 12/05/16 9:25:33, Route to Pharmacy Electronically, [id number], [facility] Start Date: 12/05/16 Stop Date: 11/30/17 Status: Ordered Coreg 25 mg oral tablet 25 mg, By Mouth, 2 times a day, # 60 tablet, Refills 11, Tot. 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
--- OUTSIDE RECORDS SUMMARY | 2022-12-06 01:25 | XMS_ITS | Continuity of Care Document ---
Author Name Unknown Organization [facility] Address [address] [place] [address]- Care Team Providers Care It Operations Analyst Name Role Phone Jenna ARMENTA, Snehal Primary Care Physician [place] [facility] [place] - 02/02/[address] [address] Attending Physician: Izabella MOON, Alisha Admitting Physician: Izabella SILK TOP HAT BODY MAKER, Alisha Referring Physician: Izabella SILK TOP HAT BODY MAKER, Alisha Allergies, Adverse Reactions, Alerts Substance Reaction Severity [...] Refills, Maintenance, Tablet, Route to Pharmacy Electronically, [id number], [facility] Start Date: 12/05/16 Stop [...] Maintenance, 12/05/16 9:25:33, Route to Pharmacy Electronically, [id number], [facility] Start Date: 12/05/16 Stop Date: 11/30/17 Status: Ordered Coreg 25 mg oral tablet 25 mg, By Mouth, 2 times a day, # 60 tablet, Refills 11, Tot. 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
--- OUTSIDE RECORDS SUMMARY | 2022-12-06 01:25 | XMS_ITS | Continuity of Care Document ---
Author Name Unknown Organization [facility] Address [address] [place] [address]- Care Team Providers Care Animal Maintenance Supervisor Name Role Phone Po Kenny ARMENTA Primary Care Physician [place] [facility] [place]19 - 05/13/19 [facility] [address] [place] [address]- [facility] Attending Physician: Ana Balderas MD Admitting Physician: Ana Balderas MD Allergies, Adverse Reactions, Alerts Substance Reaction [...] 12/05/16 9:23:00, Inhaler, Route to Pharmacy Electronically, [id number], [facility] Start Date: 12/05/16 Stop Date: 11/30/17 Status: Ordered atorvastatin 80 mg oral tablet 1 tablet = 80 mg, By Mouth, Daily, # 30 tablet, 11 Refills, Maintenance, Tablet, Route to Pharmacy Electronically, [id number], [facility] Start Date: 12/05/16 Stop Date: 11/30/17 Status: Ordered BiPAP Machine See Instructions, # 1 each, Maintenance, Patient should be started on BiPAP 19/14 cm H2O with a heated humidifier. Recommend ordering a machine with compliance data capabilities and following residual AHI. SENT TO [facility] [[email or web address]], 01/06/17 13:41:27, Compound Start Date: 01/06/17 Status: [...] Maintenance, 12/05/16 9:25:33, Route to Pharmacy Electronically, [id number], [facility] Start Date: 12/05/16 Stop Date: 11/30/17 Status: Ordered Coreg 25 mg oral tablet 25 mg, By Mouth, 2 times a day, # 60 tablet, Refills 11, Tot. 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
--- OUTSIDE RECORDS SUMMARY | 2022-12-06 01:25 | XMS_ITS | Continuity of Care Document ---
Author Name Unknown Organization [facility] Address [address] [place] [address]- Care Team Providers Care Digital Marketing Project Manager Name Role Phone Jenna ARMENTA, Snehal Primary Care Physician [phone] En[place] [facility] [place] [id number] Date(s): 10/17/21 - 11/16/[address] [address] Attending Physician: Admtess, Le Admitting Physician: Admtr, Ar8 Referring Physician: Admtr, Ar8 Allergies, Adverse Reactions, [...] Refills, Maintenance, Tablet, Route to Pharmacy Electronically, [id number], [facility] Start Date: 12/05/16 Stop [...] Maintenance, 12/05/16 9:25:33, Route to Pharmacy Electronically, [id number], [facility] Start Date: 12/05/16 Stop Date: 11/30/17 Status: Ordered Coreg 25 mg oral tablet 25 mg, By Mouth, 2 times a day, # 60 tablet, Refills 11, Tot. Refills 11, Maintenance, 12/05/16 9:23:00, Route to Pharmacy Electronically, [id number], [id number] Start Date: 12/05/16 Stop Date: 11/30/17 Status: [...] Date: 10/08/20 Status: Ordered Problem List Condition Effective Dates Status Health Status Inform ant Atrial fibrillation(Confirmed) Active BPH (benign prostatic hyperplasia)(Confirmed) Active COPD without exacerbation(Confirmed) Active Chronic pain(Confirmed) Active CAD in [place] artery(Confirmed) Active De Quervain's tenosynovitis(Confirmed) Active GERD (gastroesophageal reflu x disease)(Confirmed) Active Hyperlipidemia NOS(Confirmed) Active Hypertension(Confirmed) Active 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 [place] (myocardial infarction)(C onfirmed) 1 Active Obese class II(Confirmed) Active Obstructive sleep apnea(Confirmed) Active OA (osteoarthritis) of hip(C onfirmed) 2, 3 Active Tonsillectomy without Adenoidectomy(Confirmed) Active Total Knee Replacement(Confirmed) 4 Active Treatment-emergent central s leep apnea(Confirmed) Active 1In [place] in 1992 2s/p THR on 01/21/16 3Severe with Trochanteric Bursitis 4Left Social History Social History Type Response Smoking Status Never smoker entered on: 01/21/16 Sex Male Care Team Personnel Name: Snehal West MD Address: [address] [place] [address]
--- OUTSIDE RECORDS SUMMARY | 2022-12-06 01:25 | XMS_ITS | Continuity of Care Document ---
Author Name Unknown Organization [facility] Address [address] [place] [address]- Care Team Providers Care Camp Housekeeper Name Role Phone Jenna ARMENTA, Snehal Primary Care Physician Encounter [facility] [place] R [id number] Date(s): 03/03/22 - 04/02/22 [facility] [address] [place] [address] Attending Physician: AdmLe pulido Admitting Physician: Admtr, Le Referring Physician: Admtr, [...] Refills, Maintenance, Tablet, Route to Pharmacy Electronically, [id number], [facility] Start Date: 12/05/16 Stop [...] Maintenance, 12/05/16 9:25:33, Route to Pharmacy Electronically, [id number], [facility] Start Date: 12/05/16 Stop Date: 11/30/17 Status: Ordered Coreg 25 mg oral tablet 25 mg, By Mouth, 2 times a day, # 60 tablet, Refills 11, Tot. Refills 11, Maintenance, 12/05/16 9:23:00, Route to Pharmacy Electronically, [id number], [id number] Start Date: 12/05/16 Stop Date: 11/30/17 Status: [...] Active Chronic pain Confirmed Active CAD in [place] artery Confirmed Active De Quervain's tenosynovitis Confirmed Active GERD (gastroesophageal reflux disease) Confirmed Active Hyperlipidemia NOS Confirmed Active Hypertension Confirmed Active 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 [place] (myocardial infarction) 1 Confirmed Active Obese class [...] years ago; entered on: 01/13/22 Sex Male Patient Care team information Care Team Personnel Name: Snehal West MD Position: [facility] Physician -Physician Practices Member Role: PCP Address: Address: [address] [place] [address] Name: Raquel Carlos RN Position: [facility] RN Member Role: Primary Care Nurse Name: Christelle Chamberlain RN Position: [facility] RN Member Role: Primary Care Nurse Name: Arti Nava RN Position: [facility] RN Member Role: Primary Care Nurse Name: Kimmie Montague RN Position: [facility] RN Member Role: Primary Care Nurse Name: Irene Schwarz RN Position: [facility] RN Member Role: Primary Care Nurse Name: Karmen Fajardo RN Position: [facility] Business Risk Analyst Member Role: Primary Care Nurse Care Team Related Persons Name: AGGIE TAYLOR Address: [address] [address]
--- OUTSIDE RECORDS SUMMARY | 2022-12-06 01:25 | XMS_ITS | Continuity of Care Document ---
Author Name Unknown Organization [facility] Address [address] [place] [address]- Care Team Providers Care Lotus Notes Developer Name Role Phone Snehal West MD Primary Care Physician [phone] [place] [facility] [place] [facility] [id number] Date(s): 05/30/21 - 06/29/[address] [address] Attending Physician: Admtess, Le [...] Refills, Maintenance, Tablet, Route to Pharmacy Electronically, [id number], [facility] Start Date: 12/05/16 Stop [...] Maintenance, 12/05/16 9:25:33, Route to Pharmacy Electronically, [id number], [facility] Start Date: 12/05/16 Stop Date: 11/30/17 Status: Ordered Coreg 25 mg oral tablet 25 mg, By Mouth, 2 times a day, # 60 tablet, Refills 11, Tot. 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
--- OUTSIDE RECORDS SUMMARY | 2022-12-06 01:25 | XMS_ITS | Continuity of Care Document ---
Author Name Unknown Organization [facility] ter Address [address] [place] [address]- Care Team Providers Care Prison Officer Name Role Phone Po Kenny ARMENTA Primary Care Physician [place] [facility] [place] 04/14/[address] [address]- [facility] Attending Physician: Veda Miller Allergies, Adverse Reactions, [...] 12/05/16 9:23:00, Inhaler, Route to Pharmacy Electronically, [id number], [facility] Start Date: 12/05/16 Stop Date: 11/30/17 Status: Ordered atorvastatin 80 mg oral tablet 1 tablet = 80 mg, By Mouth, Daily, # 30 tablet, 11 Refills, Maintenance, Tablet, Route to Pharmacy Electronically, [id number], [facility] Start Date: 12/05/16 Stop Date: 11/30/17 Status: Ordered BiPAP Machine See Instructions, # 1 each, Maintenance, Patient should be started on BiPAP 19/14 cm H2O with a heated humidifier. Recommend ordering a machine with compliance data capabilities and following residual AHI. SENT TO [facility], 01/06/17 13:41:27, Compound Start Date: [...] Maintenance, 12/05/16 9:25:33, Route to Pharmacy Electronically, [id number], [facility] Start Date: 12/05/16 Stop Date: 11/30/17 Status: Ordered Coreg 25 mg oral tablet 25 mg, By Mouth, 2 times a day, # 60 tablet, Refills 11, Tot. 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
--- OUTSIDE RECORDS SUMMARY | 2022-12-06 01:25 | XMS_ITS | Continuity of Care Document ---
Author Name Unknown Organization [facility] Address [address] [place] [address]- Care Team Providers Care Lamp Wirer Name Role Phone Snehal West MD Primary Care Physician Encounter [facility] Date(s): 10/10/20 - 01/23/21 [facility] [address] [place] [address]- Attending Physician: Leyda Caballero MD Admitting Physician: Leyda Caballero MD Referring Physician: Snehal West MD Allergies, [...] Refills, Maintenance, Tablet, Route to Pharmacy Electronically, [id number], [facility] Start Date: 12/05/16 Stop [...] Maintenance, 12/05/16 9:25:33, Route to Pharmacy Electronically, [id number] Start Date: 12/05/16 Stop Date: 11/30/17 Status: Ordered Coreg 25 mg oral tablet 25 mg, By Mouth, 2 times a day, # 60 tablet, Refills 11, Tot. 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
--- OUTSIDE RECORDS SUMMARY | 2022-12-06 01:25 | XMS_ITS | Continuity of Care Document ---
Author Name Unknown Organization [facility] ter Address [address] [place] [address]- Care Team Providers Care Radio Script Writer Name Role Phone Jenna ARMENTA, Snehal Primary Care Physician [place] [facility] [place] 07/24/20 - 07/25/[address] [address] Discharge Disposition: A-D/C Home Attending Physician: Tammy ARMENTA, Meagan Henry Admitting Physician: Lisa ARMENTA, Lay Collado Referring [...] Refills, Maintenance, Tablet, Route to Pharmacy Electronically, [id number], [facility] Start Date: 12/05/16 Stop Date: [...] Maintenance, 12/05/16 9:25:33, Route to Pharmacy Electronically, [id number], [facility] Start Date: 12/05/16 Stop Date: 11/30/17 Status: Ordered Coreg 25 mg oral tablet 25 mg, By Mouth, 2 times a day, # 60 tablet, Refills 11, Tot. Refills 11, Maintenance, 12/05/16 9:23:00, Route to Pharmacy Electronically, [id number], [id number] Start Date: 12/05/16 Stop Date: 11/30/17 Status: Ordered Cymbalta 30 mg oral enteric coated capsule 1 capsule = 30 mg, By Mouth, Daily, do not crush or chew, # 30 capsule, 2 Refills, Maintenance, 03/06/17 11:06:05 Start Date: 03/06/17 Stop Date: 06/04/17 Status: Ordered ferrous sulfate 325 mg oral [...] Date: 12/05/16 Stop Date: 11/30/17 Status: Ordered losartan 50 mg oral tablet 100 mg, Tablet, By Mouth, 07/25/20 9:00:00 EDT Start Date: 07/25/20 Stop Date: 07/25/20 Status: Completed pantoprazole 40 mg oral delayed release tablet [...] Date: 12/05/16 Stop Date: 11/30/17 Status: Ordered Verapamil SR Tablet 180 mg, SR Tablet, By Mouth, 07/25/20 9:00:00 EDT Start Date: 07/25/20 Stop Date: 07/25/20 Status: Completed VITAMIN B-12 TAB 1000MCG VITAMIN B-12 TAB [...] opioid drug. Start Date: 07/25/20 Status: Ordered warfarin 5 mg oral tablet 1 tablet = 5 mg, By Mouth, Daily, # 30 tablet, 0 Refills, Maintenance, 11/18/19 12:24:00 EDT, Tablet Start Date: 11/18/19 Status: Ordered Problem List Condition Effective Dates Status Health Status Inform ant Atrial fibrillation(Confirmed) Active BPH (benign prostatic hyperplasia)(Confirmed) Active COPD without exacerbation(Confirmed) Active Chronic pain(Confirmed) Active CAD in [place] artery(Confirmed) Active De Quervain's tenosynovitis(Confirmed) Active GERD (gastroesophageal reflu x disease)(Confirmed) Active Hyperlipidemia NOS(Confirmed) Active Hypertension(Confirmed) Active 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) Active [place] (myocardial infarction)(C onfirmed) 1 Active OA (osteoarthritis) of hip(C onfirmed) 2, 3 Active Tonsillectomy without Adenoidectomy(Confirmed) Active Total Knee Replacement(Confirmed) 4 Active 1In [place] in 1992 2s/p THR on 01/21/16 3Severe with Trochanteric Bursitis 4Left Vital Signs Most recent to oldest [Reference Range]: 1 2 3 Oxygen Saturation [94-100 %] 100 % (07/25/20 3:05 PM) 100 % (07/25/20 10:52 AM) 100 % (07/25/20 6:48 AM) Pulse Rate [55-90 bpm] 52 bpm *L* (07/25/20 3:05 PM) 52 bpm *L* (07/25/20 10:52 AM) 56 bpm (07/25/20 8:22 AM) Blood Pressure [90-138/55-84 mm Hg] 133/60mm Hg (07/25/20 3:05 PM) 158/64mm Hg *H* (07/25/20 10:52 AM) 178/62mm Hg *H* (07/25/20 8:30 AM) Respiratory Rate [16-30 br/min] 20 br/min (07/25/20 3:05 PM) 20 br/min (07/25/20 10:52 AM) 18 br/min (07/25/20 10:10 AM) Temperature [96.8-100.4 DegF] 98.3 DegF (07/25/20 3:05 PM) 97.9 DegF (07/25/20 10:52 AM) 98.3 DegF (07/25/20 6:48 AM) Mode of Delivery (Oxygen) Room air (07/25/20 3:05 PM) Room air (07/25/20 10:52 AM) Room air (07/25/20 6:48 AM) Blood pressure sites Arm, left (07/25/20 3:05 PM) Arm, left (07/25/20 10:52 AM) Arm, left (07/25/20 6:48 AM) Temperature Route Oral (07/25/20 3:05 PM) Oral (07/25/20 10:52 AM) Oral (07/25/20 6:48 AM) Social History Social History Type Response Smoking Status Never smoker entered on: 01/21/16 Sex Male
--- OUTSIDE RECORDS SUMMARY | 2022-12-06 01:25 | XMS_ITS | Continuity of Care Document ---
Author Name Unknown Organization [facility] Address [address] [place] [address] [address] [place] [address]- Care Team Providers Care Sheep Sticker Name Role Phone Jenna ARMENTA, Snehal Primary Care Physician [phone] Encounter [facility] Date(s): 01/13/22 - 02/12/[address] [place], [place] [address] Attending Physician: Admtr, [id number] Admitting Physician: Admtr, Ar8 Referring Physician: Admtr, [...] Refills, Maintenance, Tablet, Route to Pharmacy Electronically, [id number], [facility] Start Date: 12/05/16 Stop [...] Maintenance, 12/05/16 9:25:33, Route to Pharmacy Electronically, [id number], [facility] Start Date: 12/05/16 Stop Date: 11/30/17 Status: Ordered Coreg 25 mg oral tablet 25 mg, By Mouth, 2 times a day, # 60 tablet, Refills 11, Tot. Refills 11, Maintenance, 12/05/16 9:23:00, Route to Pharmacy Electronically, [id number], [id number] Start Date: 12/05/16 Stop Date: 11/30/17 Status: [...] Active Chronic pain Confirmed Active CAD in [place] artery Confirmed Active De Quervain's tenosynovitis Confirmed Active GERD (gastroesophageal reflux disease) Confirmed Active Hyperlipidemia NOS Confirmed Active Hypertension Confirmed Active 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 [place] (myocardial infarction) 1 Confirmed Active Obese class [...] Team Personnel Name: Snehal West MD Position: [facility] Physician -Physician Practices Member Role: PCP Address: Address: [address] [place] [id number] Name: Raquel Carlos RN Position: [facility] RN Member Role: Primary Care Nurse Name: Christelle Chamberlain RN Position: [facility] RN Member Role: Primary Care Nurse Name: Arti Nava RN Position: [facility] RN Member Role: Primary Care Nurse Name: Kimmie Montague RN Position: [facility] RN Member Role: Primary Care Nurse Name: Irene Schwarz RN Position: [facility] RN Member Role: Primary Care Nurse Name: Karmen Fajardo RN Position: [facility] Air Traffic Control Specialist Center Member Role: Primary Care Nurse Care Team Related Persons Name: AGGIE TAYLOR Address: [address] [address]
--- OUTSIDE RECORDS SUMMARY | 2022-12-06 01:25 | XMS_ITS | Continuity of Care Document ---
Author Name Unknown Organization [facility] ter Address [address] [place] [address]- Care Team Providers Care Lab Aid Name Role Phone Po Kenny ARMENTA Primary Care Physician [place] [facility] [place] 03/24/19 - 03/24/[address] [address]- [facility] Attending Physician: Marisela Austin Allergies, [...] 12/05/16 9:23:00, Inhaler, Route to Pharmacy Electronically, [id number], [facility] Start Date: 12/05/16 Stop Date: 11/30/17 Status: Ordered atorvastatin 80 mg oral tablet 1 tablet = 80 mg, By Mouth, Daily, # 30 tablet, 11 Refills, Maintenance, Tablet, Route to Pharmacy Electronically, [id number], [facility] Start Date: 12/05/16 Stop [...] Maintenance, 12/05/16 9:25:33, Route to Pharmacy Electronically, [id number], [facility] Start Date: 12/05/16 Stop Date: 11/30/17 Status: Ordered Coreg 25 mg oral tablet 25 mg, By Mouth, 2 times a day, # 60 tablet, Refills 11, Tot. 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
--- OUTSIDE RECORDS SUMMARY | 2022-12-06 01:25 | XMS_ITS | Continuity of Care Document ---
Author Name Unknown Organization [facility] Address [address] [place] [address]- Care Team Providers Care Chamber Magistrate Name Role Phone Po Kenny ARMENTA Primary Care Physician [place] [facility] [place] 03/31/19 - 05/28/19 [facility] [address] [place] [address] [facility] Attending Physician: Not on Staff, Attending MD Allergies, Adverse Reactions, Alerts Substance Reaction [...] 12/05/16 9:23:00, Inhaler, Route to Pharmacy Electronically, [id number], [facility] Start Date: 12/05/16 Stop Date: 11/30/17 Status: Ordered atorvastatin 80 mg oral tablet 1 tablet = 80 mg, By Mouth, Daily, # 30 tablet, 11 Refills, Maintenance, Tablet, Route to Pharmacy Electronically, [id number], [facility] Start Date: 12/05/16 Stop Date: 11/30/17 Status: Ordered BiPAP Machine See Instructions, # 1 each, Maintenance, Patient should be started on BiPAP 19/14 cm H2O with a heated humidifier. Recommend ordering a machine with compliance data capabilities and following residual AHI. SENT TO [facility], 01/06/17 13:41:27, Compound Start Date: 01/06/17 [...] Maintenance, 12/05/16 9:25:33, Route to Pharmacy Electronically, [id number], [facility] Start Date: 12/05/16 Stop Date: 11/30/17 Status: Ordered Coreg 25 mg oral tablet 25 mg, By Mouth, 2 times a day, # 60 tablet, Refills 11, Tot. Refills 11, Maintenance, 12/05/16 9:23:00, Route to Pharmacy Electronically, [id number], [id number] Start Date: 12/05/16 Stop Date: 11/30/17 Status: [...] Dyspepsia, 12/04/16 15:45:24, Route to Pharmacy Electronically, [id number], [facility] Start Date: [...] 05/03/18 8:55:40 EDT, Route to Pharmacy Electronically, [id number], [facility], further refills to be [...]
--- OUTSIDE RECORDS SUMMARY | 2022-12-06 01:25 | XMS_ITS | Continuity of Care Document ---
Author Name Unknown Organization [facility] Address [address] [place] [address]- Care Team Providers Care Injury Prevention Coordinator Name Role Phone Jenna ARMENTA, Snehal Primary Care Physician En[place] [facility] [place] Date(s): 11/08/21 - 11/08/[address] [address]- Encounter Diagnosis Kidney stone on left side(Final) - 11/08/21 Discharge Disposition: A-D/C Home Attending Physician: Krunal Epstein MD Admitting Physician: Krunal Epstein MD Referring Physician: Not on Staff, Referring MD [...] Refills, Maintenance, Tablet, Route to Pharmacy Electronically, [id number], [facility] Start Date: 12/05/16 Stop [...] Maintenance, 12/05/16 9:25:33, Route to Pharmacy Electronically, [id number], [facility] Start Date: 12/05/16 Stop Date: 11/30/17 Status: Ordered Coreg 25 mg oral tablet 25 mg, By Mouth, 2 times a day, # 60 tablet, Refills 11, Tot. 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 CT (myocardial infarction)(C onfirmed) 1 Active Obese class II(Confirmed) Active Obstructive sleep apnea(Confirmed) Active OA (osteoarthritis) of hip(C onfirmed) 2, 3 Active Tonsillectomy without Adenoidectomy(Confirmed) Active Total Knee Replacement(Confirmed) 4 Active Treatment-emergent central s leep apnea(Confirmed) Active 1In [place] in 1992 2s/p THR on 01/21/16 3Severe with Trochanteric Bursitis 4Left Vital Signs Most recent to oldest [Reference Range]: 1 2 Height 158 cm (11/08/21 1:12 PM) Weight 91 kg (11/08/21 1:12 PM) Oxygen Saturation [94-100 %] 99 % (11/08/21 3:51 PM) 100 % (11/08/21 1:12 PM) Pulse Rate [55-90 bpm] 63 bpm (11/08/21 3:51 PM) 62 bpm (11/08/21 1:12 PM) Blood Pressure [90-138/55-84 mm Hg] 185/ 74mm Hg *H* (11/08/21 3:51 PM) 176/61mm Hg *H* (11/08/21 1:12 PM) Respiratory Rate [16-30 br/min] 17 br/mi n (11/08/21 3:51 PM) 18 br/min (11/08/21 1:12 PM) Temperature [96.8-100.4 DegF] 97.8 DegF (11/08/21 3:51 PM) 97.5 DegF (11/08/21 1:12 PM) Mode of Delivery (Oxygen) Room air (11/08/21 3:51 PM) Room air (11/08/21 1:12 PM) Blood pressure sites Arm, left (11/08/21 3:51 PM) Arm, left (11/08/21 1:12 PM) Temperature Route Oral (11/08/21 1:12 PM) Dry Weight 91 kg (11/08/21 1:12 PM) Social History Social History Type Response Smoking Status Never smoker entered on: 01/21/16 Sex Male Care Team Personnel Name: Senhal West MD Address: [address] [place] [address] [address] [place] [address]
--- OUTSIDE RECORDS SUMMARY | 2022-12-06 01:25 | XMS_ITS | Continuity of Care Document ---
Author Name Unknown Organization [facility] Address [address] [place] [address]- Care Team Providers Care Head Baggage Porter Name Role Phone Jenna ARMENTA, Snehal Primary Care Physician En[place] [facility] [place] Date(s): 07/03/21 - 08/02/[address] [address] Allergies, Adverse Reactions, Alerts Substance Reaction Severity [...] Refills, Maintenance, Tablet, Route to Pharmacy Electronically, [id number], [facility] Start Date: [...] Maintenance, 12/05/16 9:25:33, Route to Pharmacy Electronically, [id number], [facility] Start Date: 12/05/16 Stop Date: 11/30/17 Status: Ordered Coreg 25 mg oral tablet 25 mg, By Mouth, 2 times a day, # 60 tablet, Refills 11, Tot. 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
--- OUTSIDE RECORDS SUMMARY | 2022-12-06 01:25 | XMS_ITS | Continuity of Care Document ---
Author Name Unknown Organization [facility] Address [address] [place] [address]- Care Team Providers Care Forex Trader Name Role Phone Jenna ARMENTA, Snehal Primary Care Physician En[facility] [place] Date(s): 03/03/22 - 08/06/22 [facility] [address] [place] [address]- Discharge Disposition: A-D/C Home Attending Physician: Rylan Rodriguez MD Admitting Physician: Rylan Rodriguez MD Referring Physician: Arti Catalan NP Allergies, Adverse [...] Refills, Maintenance, Tablet, Route to Pharmacy Electronically, [id number], [facility] Start Date: 12/05/16 Stop [...] Maintenance, 12/05/16 9:25:33, Route to Pharmacy Electronically, [id number], [facility] Start Date: 12/05/16 Stop Date: 11/30/17 Status: Ordered Coreg 25 mg oral tablet 25 mg, By Mouth, 2 times a day, # 60 tablet, Refills 11, Tot. Refills 11, Maintenance, 12/05/16 9:23:00, Route to Pharmacy Electronically, [id number], [id number] Start Date: 12/05/16 Stop Date: 11/30/17 Status: [...] Refills, Maintenance, 12/05/16 9:23:00, Tablet Start Date: 10/13/17 Stop Date: 11/30/17 Status: Ordered pantoprazole 40 [...] Active Chronic pain Confirmed Active CAD in [place] artery Confirmed Active De Quervain's tenosynovitis Confirmed Active GERD (gastroesophageal reflux disease) Confirmed Active Hyperlipidemia NOS Confirmed Active Hypertension Confirmed Active 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 [place] (myocardial infarction) 1 Confirmed Active Obese class [...] Team Personnel Name: Snehal West MD Position: [facility] Outreach Member Role: PCP Address: Address: [address] [place] [id number] Name: Raquel Carlos RN Position: [facility] RN Member Role: Primary Care Nurse Name: Christelle Chamberlain RN Position: [facility] RN Member Role: Primary Care Nurse Name: Arti Nava RN Position: [facility] RN Member Role: Primary Care Nurse Name: Kimmie Montague RN Position: [facility] RN Member Role: Primary Care Nurse Name: Irene Schwarz RN Position: [facility] RN Member Role: Primary Care Nurse Name: Karmen Fajardo RN Position: [facility] Paste Up Worker Member Role: Primary Care Nurse Care Team Related Persons Name: AGGIE TAYLOR Address: home [address] [place] [address]
--- OUTSIDE RECORDS SUMMARY | 2022-12-06 01:25 | XMS_ITS | Continuity of Care Document ---
Author Name Unknown Organization [facility] ter Address [address] [place] [id number] Care Team Providers Care Primary Care Sales Representative Name Role Phone Po Kenny ARMENTA Primary Care Physician Encounter [facility] [place](s): 03/10/19 - 03/17/[address] [address]- [facility] Attending Physician: Marisela Austin Allergies, [...] 12/05/16 9:23:00, Inhaler, Route to Pharmacy Electronically, [id number], [facility] Start Date: 12/05/16 Stop Date: 11/30/17 Status: Ordered atorvastatin 80 mg oral tablet 1 tablet = 80 mg, By Mouth, Daily, # 30 tablet, 11 Refills, Maintenance, Tablet, Route to Pharmacy Electronically, [id number], [facility] Start Date: 12/05/16 Stop Date: 11/30/17 Status: Ordered BiPAP Machine See Instructions, # 1 each, Maintenance, Patient should be started on BiPAP 19/14 cm H2O with a heated humidifier. Recommend ordering a machine with compliance data capabilities and following residual AHI. SENT TO [facility], 01/06/17 13:41:27, Compound Start [...] Maintenance, 12/05/16 9:25:33, Route to Pharmacy Electronically, [id number], [facility] Start Date: 12/05/16 Stop Date: 11/30/17 Status: Ordered Coreg 25 mg oral tablet 25 mg, By Mouth, 2 times a day, # 60 tablet, Refills 11, Tot. Refills 11, Maintenance, 12/05/16 9:23:00, Route to Pharmacy Electronically, [id number], [id number] Start Date: 12/05/16 Stop Date: 11/30/17 Status: [...] Dyspepsia, 12/04/16 15:45:24, Route to Pharmacy Electronically, [id number], [facility] Start Date: 12/04/16 Stop [...] 05/03/18 8:55:40 EDT, Route to Pharmacy Electronically, [id number], [facility], further refills to be [...]
--- OUTSIDE RECORDS SUMMARY | 2022-12-06 01:26 | XMS_ITS | Continuity of Care Document ---
Author Name Unknown Organization [facility] Address Unknown Care Team Providers Care Butting Saw Operator Name Role Phone Snehal West MD Primary Care Physician Encounter [facility] [place] Date(s): 01/31/21 - 03/02/21 [facility] Attending Physician: Le Car Admitting Physician: Le Car Referring Physician: Le Car Allergies, Adverse Reactions, Alerts Substance Reaction Severity [...] Refills, Maintenance, Tablet, Route to Pharmacy Electronically, [id number], [facility] Start Date: [...] Maintenance, 12/05/16 9:25:33, Route to Pharmacy Electronically, [id number], [facility] Start Date: 12/05/16 Stop Date: 11/30/17 Status: Ordered Coreg 25 mg oral tablet 25 mg, By Mouth, 2 times a day, # 60 tablet, Refills 11, Tot. 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
--- NOTE | 2022-12-06 01:30 | PC.NURSE ---
Pt stood at the side of the bed with two nurses at the bedside to urinate. Pt had good strength and balance, was able to hold his own weight and use the urinal independently.
[2022-12-06 01:32] LABS: Troponin-I High Sensitivity 5.9 ng/L (<3.5-35.0)
[2022-12-06 01:34] LABS: Alanine Aminotransferase 20 U/L (0-40); Albumin Level 3.5 g/dL (3.5-5.0); Alkaline Phosphatase 76 U/L (39-117); Anion Gap 15 (12-20); Aspartate Amino Transferase 29 U/L (5-37); Bilirubin Direct 0.1 mg/dL (0.0-0.5); Bilirubin Total 0.3 mg/dL (0.0-1.0); Blood Urea Nitrogen 18 mg/dL (9-16); C Reactive Protein 2.82 mg/dL (< or = 0.50); Calcium 9.2 mg/dL (8.4-10.2); Carbon Dioxide 21 mmol/L (22-29); Chloride 109 mmol/L (96-108); Creatinine Clr Calc Pharmacy 58.2; Estimated Glomerular Filt Rate > 60; Glucose Random 98 mg/dL (60-115); Sodium 141 mmol/L (135-145); Total Protein 6.3 g/dL (6.5-8.0)
[2022-12-06 01:38] LABS: Lipase 14 U/L (8-78)
[2022-12-06 01:39] LABS: Prothrombin Time Whole Bld POC 29.5 sec (11.1-13.5); ~PT, ~INR - Anti Coag Clinic 2.5 (0.9-1.1)
[2022-12-06 01:48] LABS: Erythrocyte Sedimentation Rate 58 MM/HR (0-15)
--- NOTE | 2022-12-06 02:00 | PC.NURSE ---
med rec completed at this time
[2022-12-06 02:16] LABS: Prothrombin Time 36.7 SEC (11.1-13.3)
[2022-12-06 02:19] LABS: Partial Thromboplastin Time 43.1 SEC (26.0-36.4)
[2022-12-06 02:33] LABS: Stroke Lab Use COMPLETE
[2022-12-06] MEDS: Piperacillin Sodium/Tazobactam 4.5 GM in 0.9 % Sodium Chloride 100 ML IV ×4 (04:57→22:23)
--- NOTE | 2022-12-06 05:00 | P.HPHOSP_ITS ---
History of Present Illness Date of Service: 12/06/22 Chief Complaint: Abdominal Pain and Headache This is a 87-year-old male with pertinent history of paroxysmal atrial fibrillation on anticoagulation, BPH, essential hypertension, congestive heart failure with preserved ejection fraction, gastroesophageal reflux disease, essential hypertension who presents to the emergency department for evaluation of headache and abdominal pain. Patient states he has been having left-sided abdominal pain that has been ongoing for a week. It has been progressive, constant, nonradiating and without any relieving factors. Patient states he also has been having a headache which he thinks is due to his high blood pressure which may be due to the abdominal pain. No nausea or vomiting. No dark stools. Patient denies fever, chills, chest discomfort, shortness of breath, palpitations changes in urinary habits In the emergency department, imaging with uncomplicated diverticulitis Review of Systems 2 Constitutional: Constitutional: Reports no additional constitutional complaints and Reports headache(s) ENT: Reports headache(s) Cardiovascular: Cardiovascular: Reports no additional cardiovascular complaints Respiratory: Respiratory: Reports no additional respiratory complaints Gastrointestinal: Gastrointestinal: Reports abdominal pain Genitourinary: Genitourinary: Reports no additional male genitourinary complaints Neurologic: Reports headache(s) [facility] Medical History Pacemaker History of TIA (transient ischemic attack) (~2021) History of COVID-19 Tension headache Meningioma Hypertrophic cardiomyopathy Hearing loss Diastolic CHF, 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 Frequency of micturition Chronic abdominal pain Peripheral neuropathy Constipation Diverticulitis Polyarthralgia Primary osteoarthritis of right knee Urinary incontinence History of CVA (cerebrovascular accident) (~2019) Protrusion of lumbar intervertebral disc History of rib fracture Peripheral vascular disease GERD (gastroesophageal reflux disease) Obstructive sleep apnea BPH (benign prostatic hyperplasia) Anxiety and depression Paroxysmal atrial fibrillation COPD (chronic obstructive pulmonary disease) Obesity (BMI 30-39.9) Hypercholesterolemia Hypertension Anemia Current use of anticoagulant therapy Family History Father No problems noted. Mother Hx of type 1 diabetes mellitus Surgical History History of pacemaker History of colonoscopy History of total right hip replacement (~2017) History of transurethral resection of prostate History of tonsillectomy History of left knee replacement (~2007) Social History Household Members: Spouse Housing: Apartment Housing Other:: Home for the elderly Do you presently have visiting nurse or other home services: Yes Alcohol intake: never Patient Tobacco Use Status: Never used Tobacco Years Smoked: 30 yrs ago Smoked in Last 30 Days: No Second Hand Smoke Exposure: No Use of substances other than those prescribed or required for medical reasons: No Advance Directives: Yes Advance Directives on File: Yes Advance Directives Date on File: 04/06/20 service: No Current occupational status: unemployed and retired Current occupation: Right Handed Meds Allergies Allergy/AdvReac Type Severity Reaction Status Date / Time ezetimibe [From Zetia] Allergy Severe Anaphylaxis Verified 11/03/22 13:48 dabigatran etexilate Allergy Intermediate ITCHING Verified 11/03/22 13:48 [From PRADAXA] JORGE L Inhibitors Allergy Mild UNKNOWN, Verified 11/03/22 13:48 [Jorge L Inhibitors] FOUND IN MEDICAL RECORD 04/[address] GIPSON apixaban [From ELIQUIS] Allergy Unknown Rash Verified 11/03/22 13:48 rosuvastatin [Crestor] Allergy Unknown myalgia Verified 11/03/22 13:48 Active Medications: Current Medications Piperacillin Sod/Tazobactam (Sod 4.5 gm/ Sodium Chloride) 100 mls @ 200 mls/hr IV ONCE STA Stop: 12/06/22 05:13 Last Admin: 12/06/22 04:57 Dose: 200 mls/hr Home Medications Medication Instructions Recorded Confirmed Last Taken Type atorvastatin 80 mg tablet 80 mg PO BEDTIME 06/03/20 12/06/22 12/04/22 History carvedilol 25 mg tablet 25 mg PO BID 12/04/20 12/06/22 12/04/22 History potassium chloride 10 mEq 1 tab PO BID 11/14/21 12/06/22 12/04/22 History tablet,extended release docusate sodium 100 mg capsule 100 mg PO BID 09/07/22 12/06/22 12/04/22 History sennosides 8.6 mg tablet (senna) 8.6 mg PO BEDTIME 09/07/22 12/06/22 12/04/22 History rivaroxaban 20 mg tablet (Xarelto) 20 mg PO DAILY 12/06/22 12/06/22 12/04/22 History Physical Exam 2 Vital Signs and Narrative: Vital Signs: Last Vital Signs Temp 98.3 F 12/06/22 01:08 Pulse 85 12/06/22 04:07 Resp 18 12/06/22 04:07 BP 165/66 H 12/06/22 04:07 Pulse Ox 96 12/06/22 04:07 O2 Del Method Room Air 12/06/22 01:08 BMI result Body Mass Index 33.6 Elderly male lying in bed in no distress Neck supple, no JVD Regular rate and rhythm, S1-S2 heard Regular breath sounds bilaterally, no wheezing or crackles appreciated Abdomen with left lower quadrant tenderness, no guarding, no rigidity, no rebound tenderness Patient is awake, alert and oriented to self, place, time and person ; no focal motor deficit Psych: Normal mood No pedal edema Results Labs 12/06/22 01:01 12/06/22 01:01 Labs: Laboratory Results - last 24 hr 12/06/22 12/06/22 12/06/22 01:01 01:34 01:59 MCV 84.9 MCH 27.1 MCHC 31.9 RDW 14.6 Plt Count 235 MPV 10.1 Immature Gran % (Auto) 0.4 Neut % (Auto) 57.7 Lymph % (Auto) 25.5 [place] % (Auto) 9.4 Eos % (Auto) 6.5 H Baso % (Auto) 0.5 Lymph # (Auto) 2.2 [place] # (Auto) 0.8 Eos # (Auto) 0.6 H Baso # (Auto) 0.0 Abs Immat Gran (auto) 0.03 Absolute Neuts (auto) 4.9 Absolute Nucleated RBC 0.000 Nucleated RBC % (auto) 0.0 ESR 58 H PT 36.7 H Whole Blood PT 29.5 H INR 3.0 H Whole Blood INR 2.5 H APTT 43.1 H D Anion Gap 15 Estim Creat Clear Calc 58.2 Estimated GFR > 60 POC Glucose 91 Random Glucose 98 Calcium 9.2 Total Bilirubin 0.3 Direct Bilirubin 0.1 AST 29 ALT 20 Alkaline Phosphatase 76 Total Creatine Kinase 37 L C-Reactive Protein 2.82 H Total Protein 6.3 L Albumin 3.5 Lipase 14 Imaging Radiologist's Impressions: Impressions Head CT 12/06/22 00:43 IMPRESSION: No acute intracranial pathology. This critical result was discussed with Dr Donato at 12/06/2022 12:49 AM and it was ascertained that the content and urgency of the report was understood at the time of direct communication. Abdomen/Pelvis CT 12/06/22 02:53 IMPRESSION: * Mild acute uncomplicated diverticulitis at the junction of the descending and sigmoid colon. * Pancolonic diverticulosis. Fleischner guidelines were followed. Assessment and Plan (1) Acute diverticulitis: Status: Acute Plan This is a 87-year-old male with pertinent history of paroxysmal atrial fibrillation on anticoagulation, BPH, essential hypertension, congestive heart failure with preserved ejection fraction, gastroesophageal reflux disease, essential hypertension who presents to the emergency department for evaluation of headache and abdominal pain. #. Acute uncomplicated diverticulitis. Will admit patient and initiate empiric IV antibiotics. No sepsis. Will need outpatient colonoscopy in 8 weeks. #.? BPH on Flomax #.? COPD on fluticasone and vilanterol.? No concern for exacerbation at the time of admission #.? Paroxysmal atrial fibrillation :rate well controlled on admission.? Continue Xarelto #.? Gastroesophageal reflux disease :continue PPI #.? Essential hypertension :continue home medications #. Congestive Heart failure with preserved ejection fraction. Continue Lasix DVT prophylaxis: Xarelto Full code Admit as inpatient and will require two night minimum hospital stay for IV antibiotics Time Spent With Patient Time: Total time managing care of this patient today ____ minutes. Quality Stroke Does the patient have a stroke diagnosis?: No VTE Prior VTE?: No VTE Risk Level:: Medical - moderate - high VTE Device Contraindication: Treatment Not Indicated VTE Drug Contraindication: N/A - Med Ordered
--- NOTE | 2022-12-06 05:04 | PC.NURSE ---
spoke to provider, does not want blood cultures
[2022-12-06 05:28] LABS: MANUAL DIFF FLAG NO
[2022-12-06 05:34] LABS: Basophils Absolute Auto 0.1 X10*3/uL (0.0-0.2); Basophils Percent Auto 0.8 % (0-2); Eosinophils Absolute Auto 0.6 X10*3/uL (0.0-0.4); Eosinophils Percent Auto 7.3 % (0-4); Hematocrit 33.9 % (42.0-52.0); Hemoglobin 10.7 g/dl (14.0-18.0); Imm Gran Abs Auto 0.02 X10*3/uL (0.00-0.03); Imm Gran Pct Auto 0.3 % (0.0-0.4); Lymphocytes Absolute Auto 1.9 X10*3/uL (1.2-4.9); Lymphocytes Percent Auto 23.9 % (20-40); Mean Corpuscular HGB Conc 31.6 g/dl (31.0-36.0); Mean Corpuscular Hemoglobin 26.8 pg (27.0-33.0); Mean Platelet Volume 9.5 fL (9.4-12.4); Monocytes Absolute Auto 0.7 X10*3/uL (0.1-1.2); Monocytes Percent Auto 9.4 % (2-11); Neutrophils Absolute Auto 4.6 x10*3/uL (2.0-8.3); Neutrophils Percent Auto 58.3 % (45-73); Platelet Count 219 X10*3/uL (160-400); Red Blood Count 3.99 X10*6/uL (4.60-5.80); Red Cell Distribution Width 14.6 % (11.0-16.0); White Blood Count 7.9 X10*3/uL (4.8-10.8)
[2022-12-06 05:46] LABS: Anion Gap 14 (12-20); Blood Urea Nitrogen 15 mg/dL (9-16); Calcium 8.8 mg/dL (8.4-10.2); Carbon Dioxide 22 mmol/L (22-29); Chloride 110 mmol/L (96-108); Creatinine Clr Calc Pharmacy 70.4; Estimated Glomerular Filt Rate > 60; Glucose Random 91 mg/dL (60-115); Sodium 142 mmol/L (135-145)
[2022-12-06] MEDS: 0.9 % Sodium Chloride Flush 3 ML SYRINGE IVFLUSH ×3 (08:03→23:01)
--- NOTE | 2022-12-06 08:20 | PC.NURSE ---
PT IS A/O X 4 NO SOB/JACKIE NOTED SPEAKS IN FULL SENTENCES. LUNGS - CTA. HEART SOUND REGULAR , PT HAS A PACEMAKER TO L CHEST. ABD OBESE SOFT AND NON-TENDER. BS + X 4 QUADS. L HAND IV INFILTRATE. L HAND IS SWOLLEN. IV D/C'D BY THIS RN. PT HAS A LARGE PURPLE DISCOLORATION TO L LOWER FOREARM. PT STATES THAT THE DISCOLORATION TO L LOWER FOREARM HAS BEEN THERE FOR 3-4 DAYS. NO EDEMA NOTED. PT AWARE OF PLAN OF CARE.
--- NOTE | 2022-12-06 08:57 | PC.NURSE ---
IV in L hand infiltrated. placed new 22G in R hand
--- NOTE | 2022-12-06 09:45 | P.CNGI_ITS ---
History of Present Illness Data of Consult Service Date: 12/06/22 Requesting physician: Kiki Child Primary Care Provider: Unknown Physician HPI Reason for consult: Diverticulitis 87 YM with paroxysmal atrial fibrillation on anticoagulation, BPH, essential hypertension, congestive heart failure with preserved ejection fraction, gastroesophageal reflux disease, hypertension seen at [facility] on 12/06/22 for evaluation of headache and abdominal pain. Patient stated he has been having LLQ abdominal pain for the past 4 days. Pain was mild for the 1st two days and became worse on the 3rd day. Pain has improved today. He describes the pain as constant, nonradiating and without any relieving factors. Patient stated he also has been having a headache which he thinks is due to his high blood pressure which may be due to the abdominal pain. Pt denies nausea, vomiting, heartburn or dysphagia, fever or chills or dark stools. Pt noted small amount of blood on wiping yeseterday which he attributes to hemorrhoids. He reports a good appetite and wt has been stable. Patient notes he had a colonoscopy 15 years ago at [facility] - which was negative per patient. Patient admits to past smoking quitted several years ago. He started using CPAP for sleep apnea and was unable to tolerate it. Patient is has 6 children and lives with his . Patient denies known family history of colon polyps or colon cancer. 12/06/[address] SCAN SHOWED: Mild acute uncomplicated diverticulitis at the junction of the descending and sigmoid colon. * Pancolonic diverticulosis. Review of Systems 2 Constitutional: Constitutional: Reports no additional constitutional complaints and Reports headache(s) ENT: Reports headache(s) Cardiovascular: Cardiovascular: Reports no additional cardiovascular complaints Respiratory: Respiratory: Reports no additional respiratory complaints Gastrointestinal: Gastrointestinal: Reports abdominal pain Genitourinary: Genitourinary: Reports no additional male genitourinary complaints Neurologic: Reports headache(s) [facility] Past Medical History Medical History Pacemaker History of TIA (transient ischemic attack) (~2021) History of COVID-19 Tension headache Meningioma Hypertrophic cardiomyopathy Hearing loss Diastolic CHF, 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 Frequency of micturition Chronic abdominal pain Peripheral neuropathy Constipation Diverticulitis Polyarthralgia Primary osteoarthritis of right knee Urinary incontinence History of CVA (cerebrovascular accident) (~2019) Protrusion of lumbar intervertebral disc History of rib fracture Peripheral vascular disease GERD (gastroesophageal reflux disease) Obstructive sleep apnea BPH (benign prostatic hyperplasia) Anxiety and depression Paroxysmal atrial fibrillation COPD (chronic obstructive pulmonary disease) Obesity (BMI 30-39.9) Hypercholesterolemia Hypertension Anemia Current use of anticoagulant therapy Family History Family History Father No problems noted. Mother Hx of type 1 diabetes mellitus Surgical History Surgical History History of pacemaker History of colonoscopy History of total right hip replacement (~2016) History of transurethral resection of prostate History of tonsillectomy History of left knee replacement (~2007) Social History Social History Household Members: Spouse Housing: Apartment Housing Other:: Home for the elderly Do you presently have visiting nurse or other home services: Yes Alcohol intake: never Patient Tobacco Use Status: Never used Tobacco Years Smoked: 30 yrs ago Smoked in Last 30 Days: No Second Hand Smoke Exposure: No Use of substances other than those prescribed or required for medical reasons: No Advance Directives: Yes Advance Directives on File: Yes Advance Directives Date on File: 04/06/20 Nutrition Risks: No Nutritional Risk service: No Current occupational status: unemployed and retired Current occupation: Right Handed Meds Allergies Allergy/AdvReac Type Severity Reaction Status Date / Time ezetimibe [From Zetia] Allergy Severe Anaphylaxis Verified 11/03/22 13:48 dabigatran etexilate Allergy Intermediate ITCHING Verified 11/03/22 13:48 [From PRADAXA] JORGE L Inhibitors Allergy Mild UNKNOWN, Verified 11/03/22 13:48 [Jorge L Inhibitors] FOUND IN MEDICAL RECORD 04/[address] GIPSON apixaban [From ELIQUIS] Allergy Unknown Rash Verified 11/03/22 13:48 rosuvastatin [Crestor] Allergy Unknown myalgia Verified 11/03/22 13:48 Active Medications: Current Medications Acetaminophen (Acetaminophen 325 Mg Tablet) 650 mg PO Q6H PRN PRN Reason: Pain, Mild (Pain Scale 1-3) Atorvastatin Calcium (Atorvastatin Calcium 80 Mg Tablet) 80 mg PO BEDTIME DEEPAK Carvedilol (Carvedilol 25 Mg Tablet) 25 mg PO BID [facility]; Protocol Docusate Sodium (Docusate Sodium 100 Mg Capsule) 100 mg PO BID [facility] Fluticasone/Vilanterol (Fluticasone/Vilanterol 200/25 Blst.W.Dev) 1 puff INHALE DAILY [facility] Furosemide (Furosemide 40 Mg Tablet) 40 mg PO DAILY [facility]; Protocol Hydromorphone HCl (Hydromorphone Hcl 1 Mg/Ml Syringe) 0.5 mg IVPUSH Q4H PRN; Protocol PRN Reason: Pain, Severe (Pain Scale 7-10) Piperacillin Sod/Tazobactam (Sod 4.5 gm/ Sodium Chloride) 100 mls @ 200 mls/hr IV Q6H [facility] Melatonin (Melatonin 3 Mg Tablet) 6 mg PO BEDTIME PRN PRN Reason: Insomnia Omeprazole (Omeprazole 20 Mg Capsule.Dr) 20 mg PO DAILY@0630 [facility] Ondansetron HCl (Ondansetron Hcl 4 Mg/2 Ml Vial) 4 mg IVPUSH Q8H PRN PRN Reason: Nausea and Vomiting Potassium Chloride (Potassium Chloride Er 10 Meq Tablet.Er) 10 meq PO BID [facility] Senna (Sennosides 8.6 Mg Tablet) 8.6 mg PO BEDTIME [facility] Sodium Chloride (0.9 % Sodium Chloride Flush 3 Ml Syringe) 3 ml IVFLUSH QSHIFT [facility] Last Admin: 12/06/22 08:03 Dose: 3 ml Tamsulosin HCl (Tamsulosin Hcl 0.4 Mg Capsule) 0.4 mg PO DAILY [facility] Verapamil HCl (Verapamil Hcl Sr 180 Mg Tablet.Er) 180 mg PO DAILY [facility]; Protocol Home Medications Medication Instructions Recorded Confirmed Last Taken Type atorvastatin 80 mg tablet 80 mg PO BEDTIME 06/03/20 12/06/22 12/04/22 History carvedilol 25 mg tablet 25 mg PO BID 12/04/20 12/06/22 12/04/22 History potassium chloride 10 mEq 1 tab PO BID 11/14/21 12/06/22 12/04/22 History tablet,extended release docusate sodium 100 mg capsule 100 mg PO BID 09/07/22 12/06/22 12/04/22 History sennosides 8.6 mg tablet (senna) 8.6 mg PO BEDTIME 09/07/22 12/06/22 12/04/22 History fluticasone furoate 200 1 inh inhalation DAILY 12/06/22 12/06/22 Unknown History mcg-vilanterol 25 mcg/dose inhalation powder (Breo Ellipta) rivaroxaban 20 mg tablet (Xarelto) 20 mg PO DAILY 12/06/22 12/06/22 12/04/22 History Physical Exam 2 Vital Signs: Vital Signs: Last Vital Signs Temp 98.2 F 12/06/22 07:25 Pulse 75 12/06/22 07:25 Resp 14 12/06/22 07:25 BP 177/72 H 12/06/22 07:25 Pulse Ox 97 12/06/22 07:25 O2 Del Method Room Air 12/06/22 07:25 BMI result Body Mass Index 33.6 Const: General: no acute distress Nutritional Appearance: obese O rientation/consciousness: patient oriented x3 HEENT: Head: Yes normal to inspection Ears: hearing grossly normal bilaterally Mouth: Normal oral and palatal mucosa present Eyes: Sclerae: sclerae normal Pupils: Equal, round and reactive pupils present Neck: Neck: Yes normal visual inspection Chest: Chest palpation & inspection: normal inspection of the chest Resp: Effort & Inspection: normal respiratory effort Auscultation: clear to auscultation bilaterally Cardio: Palpation: normal PMI Rate: regular rate Rhythm: regular rhythm Heart sounds: S1 normal heart sound present, S2 normal heart sound present and no murmurs GI: Palpation (GI): Soft to palpation, Tenderness to palpation present (GI) (Mild LLQ tenderness) and No hepatosplenomegaly present Auscultation: normal bowel sounds Rectal Exam - Male: Yes deferred Skin: General skin exam: no rashes or lesions noted Neuro: General: patient oriented x3, gait normal and moves all extremities Cranial nerves: Yes Equal, round and reactive pupils present Psych: Appearance: grossly normal Mental Status: mental status grossly normal Results Labs 12/06/22 05:18 12/06/22 05:18 Labs: Short CBC 12/06/22 12/06/22 Range/Units 01:01 05:18 WBC 8.5 7.9 (4.8-10.8) X10*3/uL Hgb 10.6 L 10.7 L (14.0-18.0) g/dl Hct 33.2 L 33.9 L (42.0-52.0) % Plt Count 235 219 (160-400) X10*3/uL BMP 12/06/22 12/06/22 01:01 05:18 Sodium 141 142 Potassium 4.0 4.0 Chloride 109 H 110 H Carbon Dioxide 21 L 22 BUN 18 H 15 Creatinine 0.98 0.81 Calcium 9.2 8.8 Cardiac Enzymes 12/06/22 Range/Units 01:01 Total Creatine Kinase 37 L (38-174) U/L Liver Function 12/06/22 Range/Units 01:01 Total Bilirubin 0.3 (0.0-1.0) mg/dL Direct Bilirubin 0.1 (0.0-0.5) mg/dL AST 29 (5-37) U/L ALT 20 (0-40) U/L Alkaline Phosphatase 76 (39-117) U/L Albumin 3.5 (3.5-5.0) g/dL Assessment and Plan (1) Acute diverticulitis: Status: Acute (2) GERD (gastroesophageal reflux disease): Qualifiers: Esophagitis presence: esophagitis presence not specified Qualified Code(s): K21.9 - Gastro-esophageal reflux disease without esophagitis Status: Acute Plan 87 YM with paroxysmal atrial fibrillation on anticoagulation, BPH, essential hypertension, congestive heart failure with preserved ejection fraction, gastroesophageal reflux disease, hypertension seen at [facility] on 12/06/22 for evaluation of headache and abdominal pain for the past [address] scan showed pandiverticulosis and mild acute uncomplicated diverticulitis at the junction of descending and sigmoid colon Pt was started on IV antibiotics and notes improvement in his symptoms RECOMMENDATIONS: 1. Agree with IV pain and anti nausea medications and antibiotics 2. Pt was advised further evaluation with a colonoscopy as an outpatient in 6 to 8 weeks after diverticulitis resolves. Pt does not want to be scheduled for a colonoscopy. He is willing to reconsider if he has another episode of diverticulitis in the future. 3. If abdominal pain continues to improve, pt can be discharged home tomorrow on PO antibiotics. Time Spent With Patient Time: Total time managing care of this patient today ____ minutes. Procedures Date of Service Date of Service: 12/06/22
[2022-12-06] MEDS: Docusate Sodium 100 MG CAPSULE PO ×2 (09:47→19:51)
[2022-12-06] MEDS: Tamsulosin HCL 0.4 MG CAPSULE PO (09:47)
[2022-12-06] MEDS: Potassium Chloride ER 10 MEQ TABLET.ER PO ×2 (09:47→19:51)
[2022-12-06] MEDS: carvediloL 25 MG TABLET PO ×2 (09:47→19:51)
[2022-12-06] MEDS: Furosemide 40 MG TABLET PO (09:47)
--- NOTE | 2022-12-06 10:54 | HO.PM.IMPN ---
Subjective Subjective Date of Service: 12/06/22 Review of Systems Follow up diverticulitis no nausea, vomiting or diarrhea Physical Exam Vital Signs: Vital Signs: Last Vital Signs Temp 98 F 12/06/22 09:42 Pulse 63 12/06/22 09:42 Resp 16 12/06/22 09:42 BP 194/76 H 12/06/22 09:42 Pulse Ox 94 12/06/22 09:42 O2 Del Method Room Air 12/06/22 09:42 BMI result Body Mass Index 33.6 Appearing in no acute distress lung sounds are clear to auscultation heart regular rate rhythm, clear S1, S2 positive bowel sounds, abdomen is soft, Mild LLQ tenderness neuro patient is alert x3, no focal deficits Objective Data Active Medications Acetaminophen (Acetaminophen 325 Mg Tablet) 650 mg PO Q6H PRN PRN Reason: Pain, Mild (Pain Scale 1-3) Atorvastatin Calcium (Atorvastatin Calcium 80 Mg Tablet) 80 mg PO BEDTIME DEEPAK Carvedilol (Carvedilol 25 Mg Tablet) 25 mg PO BID [facility]; Protocol Last Admin: 12/06/22 09:47 Dose: 25 mg Documented By: ROXY Docusate Sodium (Docusate Sodium 100 Mg Capsule) 100 mg PO BID [facility] Last Admin: 12/06/22 09:47 Dose: 100 mg Documented By: ROXY Fluticasone/Vilanterol (Fluticasone/Vilanterol 200/25 Blst.W.Dev) 1 puff INHALE DAILY [facility] Furosemide (Furosemide 40 Mg Tablet) 40 mg PO DAILY [facility]; Protocol Last Admin: 12/06/22 09:47 Dose: 40 mg Documented By: ROXY Hydromorphone HCl (Hydromorphone Hcl 1 Mg/Ml Syringe) 0.5 mg IVPUSH Q4H PRN; Protocol PRN Reason: Pain, Severe (Pain Scale 7-10) Piperacillin Sod/Tazobactam (Sod 4.5 gm/ Sodium Chloride) 100 mls @ 200 mls/hr IV Q6H [facility] Melatonin (Melatonin 3 Mg Tablet) 6 mg PO BEDTIME PRN PRN Reason: Insomnia Omeprazole (Omeprazole 20 Mg Capsule.Dr) 20 mg PO DAILY@0630 [facility] Ondansetron HCl (Ondansetron Hcl 4 Mg/2 Ml Vial) 4 mg IVPUSH Q8H PRN PRN Reason: Nausea and Vomiting Potassium Chloride (Potassium Chloride Er 10 Meq Tablet.Er) 10 meq PO BID [facility] Last Admin: 12/06/22 09:47 Dose: 10 meq Documented By: ROXY Senna (Sennosides 8.6 Mg Tablet) 8.6 mg PO BEDTIME [facility] Sodium Chloride (0.9 % Sodium Chloride Flush 3 Ml Syringe) 3 ml IVFLUSH QSHIFT [facility] Last Admin: 12/06/22 08:03 Dose: 3 ml Documented By: RAJ Tamsulosin HCl (Tamsulosin Hcl 0.4 Mg Capsule) 0.4 mg PO DAILY [facility] Last Admin: 12/06/22 09:47 Dose: 0.4 mg Documented By: ROXY Verapamil HCl (Verapamil Hcl Sr 180 Mg Tablet.Er) 180 mg PO DAILY [facility]; Protocol Labs 12/06/22 05:18 12/06/22 05:18 Labs: Laboratory Results - last 24 hr 12/06/22 12/06/22 12/06/22 01:01 01:34 01:59 MCV 84.9 MCH 27.1 MCHC 31.9 RDW 14.6 Plt Count 235 MPV 10.1 Immature Gran % (Auto) 0.4 Neut % (Auto) 57.7 Lymph % (Auto) 25.5 Anderson % (Auto) 9.4 Eos % (Auto) 6.5 H Baso % (Auto) 0.5 Lymph # (Auto) 2.2 Anderson # (Auto) 0.8 Eos # (Auto) 0.6 H Baso # (Auto) 0.0 Abs Immat Gran (auto) 0.03 Absolute Neuts (auto) 4.9 Absolute Nucleated RBC 0.000 Nucleated RBC % (auto) 0.0 ESR 58 H PT 36.7 H Whole Blood PT 29.5 H INR 3.0 H Whole Blood INR 2.5 H APTT 43.1 H D Anion Gap 15 Estim Creat Clear Calc 58.2 Estimated GFR > 60 POC Glucose 91 Random Glucose 98 Calcium 9.2 Total Bilirubin 0.3 Direct Bilirubin 0.1 AST 29 ALT 20 Alkaline Phosphatase 76 Total Creatine Kinase 37 L C-Reactive Protein 2.82 H Total Protein 6.3 L Albumin 3.5 Lipase 14 12/06/22 05:18 MCV 85.0 MCH 26.8 L MCHC 31.6 RDW 14.6 Plt Count 219 MPV 9.5 Immature Gran % (Auto) 0.3 Neut % (Auto) 58.3 Lymph % (Auto) 23.9 Anderson % (Auto) 9.4 Eos % (Auto) 7.3 H Baso % (Auto) 0.8 Lymph # (Auto) 1.9 Anderson # (Auto) 0.7 Eos # (Auto) 0.6 H Baso # (Auto) 0.1 Abs Immat Gran (auto) 0.02 Absolute Neuts (auto) 4.6 Absolute Nucleated RBC 0.000 Nucleated RBC % (auto) 0.0 ESR PT Whole Blood PT INR Whole Blood INR APTT Anion Gap 14 Estim Creat Clear Calc 70.4 Estimated GFR > 60 POC Glucose Random Glucose 91 Calcium 8.8 Total Bilirubin Direct Bilirubin AST ALT Alkaline Phosphatase Total Creatine Kinase C-Reactive Protein Total Protein Albumin Lipase Assessment and Plan (1) Acute diverticulitis: Status: Acute Plan This is a 87-year-old male with pertinent history of paroxysmal atrial fibrillation on anticoagulation, BPH, essential hypertension, congestive heart failure with preserved ejection fraction, gastroesophageal reflux disease, essential hypertension who presents to the emergency department for evaluation of headache and abdominal pain. Acute uncomplicated diverticulitis. no nausea, vomiting or diarrhea abd ct showed mild acute uncomplicated diverticultis continue IV Zosyn GI consult>continue abx for now, o/p colonoscopy BPH on Flomax COPD on fluticasone and vilanterol.? No concern for exacerbation at the time of admission Paroxysmal atrial fibrillation rate well controlled on admission.? Continue Xarelto Gastroesophageal reflux disease continue PPI Essential hypertension continue home medications Congestive Heart failure with preserved ejection fraction. no exacerbation Continue Lasix DVT prophylaxis: Akash Attending Dr. Back Full code Admit as inpatient and will require two night minimum hospital stay for IV antibiotics Time Spent With Patient Time: Total time managing care of this patient today ____ minutes. Quality Stroke Does the patient have a stroke diagnosis?: No VTE Prior VTE?: No VTE Risk Level:: Medical - moderate - high VTE Device Contraindication: Treatment Not Indicated VTE Drug Contraindication: N/A - Med Ordered
[2022-12-06] MEDS: VerapamiL HCL SR 180 MG TABLET.ER PO (11:26)
--- NOTE | 2022-12-06 16:00 | PC.NURSE ---
report given to Raoul Sweet
[2022-12-06] MEDS: Melatonin 3 MG TABLET 6 MG PO (19:51)
[2022-12-06] MEDS: Sennosides 8.6 MG TABLET PO (19:51)
[2022-12-06] MEDS: Atorvastatin Calcium 80 MG TABLET PO (19:52)
[2022-12-06] MEDS: guaiFEN/Codeine SF 200/20/10ML 10 ML LIQUID 5 ML PO (22:19)
[2022-12-07 03:38] VITALS: BP 147/71; PULSE 73; RESP 18; TEMP 36.4; O2SAT 94
[2022-12-07] MEDS: Piperacillin Sodium/Tazobactam 4.5 GM in 0.9 % Sodium Chloride 100 ML IV (04:59)
[2022-12-07] MEDS: Omeprazole 20 MG CAPSULE.DR PO (05:45)
--- NOTE | 2022-12-07 07:11 | P.DS_ITS ---
DS: Providers Provider Date of Service: 12/07/22 Date of admission: 12/06/22 04:58 Primary care physician: Unknown Physician Consults: 12/06/22 08:27 Consult to Gastroenterology Routine Consulting Provider: Johny Su Reason for consultation: diverticulitis DS: Diagnosis Discharge Diagnosis (1) Acute diverticulitis: Status: Acute DS: Summary Hospital Course Hospital Course: This is a 87-year-old male with pertinent history of paroxysmal atrial fibrillation on anticoagulation, BPH, essential hypertension, congestive heart failure with preserved ejection fraction, gastroesophageal reflux disease, essential hypertension who presents to the emergency department for evaluation of headache and abdominal pain. Patient states he has been having left-sided abdominal pain that has been ongoing for a week. It has been progressive, constant, nonradiating and without any relieving factors. Patient states he also has been having a headache which he thinks is due to his high blood pressure which may be due to the abdominal pain. No nausea or vomiting. No dark stools. Patient denies fever, chills, chest discomfort, shortness of breath, palpitations changes in urinary habits. In the emergency department, imaging with uncomplicated diverticulitis 87-year-old treated for acute uncomplicated diverticulitis with no nausea, vomiting or diarrhea. Abdominal CT showed mild acute uncomplicated diverticulitis. He was treated with IV Zosyn. He was seen evaluated by Gastroenterology with recommendation for outpatient colonoscopy. He will be treated with a total 10 days of antibiotics, home with Levaquin and Flagyl. Pain resolved. BPH. Continue Flomax COPD. No exacerbation. Continue home medications Paroxysmal atrial fibrillation. New exacerbation. Continue Xarelto Started. Continue PPI Hypertension. Stable blood pressure. Continue home medications Heart failure with preserved ejection fraction. No exacerbation. Continue Lasix Time Spent with Patient Time attestation: Total time managing care of this patient today ____ minutes. Discharge coordination time: Greater than 30 minutes Quality: Safe Use of Opioids Does Pt have an Active Cancer Diagnosis on the Problem List?: No Quality: Stroke Does the patient have a stroke diagnosis?: No Physical Exam Vital Signs: Vital Signs: Last Vital Signs Temp 97.5 F 12/07/22 03:38 Pulse 73 12/07/22 03:38 Resp 18 12/07/22 03:38 BP 147/71 H 12/07/22 03:38 Pulse Ox 94 12/07/22 03:38 O2 Del Method Room Air 12/07/22 03:38 BMI result Body Mass Index 33.6 Appearing in no acute distress head is normocephalic atraumatic eyes pupils are PERRLA sclera is anicteric mouth throat mucous membranes are intact and moist neck is supple no lymphadenopathy, no JVD noted lung sounds are clear to auscultation heart regular rate rhythm, clear S1, S2 positive bowel sounds, abdomen is soft, nontender neuro patient is alert x3, no focal deficits DS: Data Data Completed and Pending Completed studies during hospitalization [Text1]: Procedures Insertion of Endotracheal Airway into Trachea, Via Natural or Artificial Opening Endoscopic (04/01/20) Insertion of Infusion Device into Superior Vena Cava, Percutaneous Approach (04/01/20) Insertion of Pacemaker Lead into Right Atrium, Percutaneous Approach (03/25/22) Insertion of Pacemaker Lead into Right Ventricle, Percutaneous Approach (03/25/22) Insertion of Pacemaker, Dual Chamber into Chest Subcutaneous Tissue and Fascia, Open Approach (03/25/22) Introduction of Remdesivir Anti-infective into Peripheral Vein, Percutaneous Approach, [employer] (04/01/20) Respiratory Ventilation, Greater than 96 Consecutive Hours (04/01/20) Transfusion of Convalescent Plasma (Nonautologous) into Peripheral Vein, Percutaneous Approach, [employer] (04/01/20) Ultrasonography of Superior Vena Cava, Guidance (04/01/20) Discharge Plan Discharge Anticipated Discharge Date/Time: 12/07/22 07:10 Patient Disposition: Home, Self-Care Discharge Diagnosis: Diverticulitis Referrals: Johny Su MD [Physician] - 1 Week Discharge Medications: New levofloxacin 500 mg tablet 500 mg PO DAILY Qty: 8 0RF metronidazole 500 mg tablet 500 mg PO Q8H Qty: 24 0RF Continued tamsulosin 0.4 mg capsule 0.4 mg PO DAILY 90 Days Qty: 90 3RF verapamil 180 mg capsule,ext rel. pellets 24 hr 180 mg PO DAILY Qty: 90 3RF pantoprazole 40 mg tablet,delayed release (DR/EC) 40 mg PO DAILY@0630 Qty: 30 3RF furosemide 40 mg tablet 40 mg PO DAILY Qty: 30 5RF atorvastatin 80 mg tablet 80 mg PO BEDTIME potassium chloride 10 mEq tablet extended release 1 tab PO BID aspirin 81 mg capsule 81 mg PO DAILY Qty: 30 0RF Xarelto 20 mg tablet 20 mg PO DAILY fluticasone furoate-vilanterol [Breo Ellipta] 200-25 mcg/dose Blister With Device 1 inh INHALATION DAILY multivitamin Tablet 1 tab PO DAILY losartan 50 mg tablet 50 mg PO DAILY ferrous sulfate [FeroSul] 325 mg (65 mg iron) tablet 325 mg PO DAILY fluticasone propionate 50 mcg/actuation spray,suspension 1 spray intranasal DAILY PRN (Reason: Allergy Symptoms) docusate sodium 100 mg capsule 100 mg PO BID sennosides [senna] 8.6 mg tablet 8.6 mg PO BEDTIME carvedilol 25 mg tablet 25 mg PO BID Discharge Orders: Discharge Order (Routine); Ordered 12/07/22 Ordered By: Kiki Child Diet: Advance to usual diet Activity on Discharge: As tolerated Stand Alone Forms: Patient Portal Discharge page Care Plan Goals: Complete resolution of symptoms Health Concerns: Acute diverticulitis Plan of Treatment: Follow-up with primary care provider as needed 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
[2022-12-07 07:42] VITALS: BP 162/76; PULSE 69; RESP 18; TEMP 37.1; O2SAT 95
--- NOTE | 2022-12-07 08:45 | PHA.MEDREC ---
Pharmacy Consult ? Medication Reconciliation Pharmacy has completed the medication reconciliation. spoke with patient and used his list from home to confirm medications
[2022-12-07] MEDS: Furosemide 40 MG TABLET PO (08:51)
[2022-12-07] MEDS: carvediloL 25 MG TABLET PO (08:51)
[2022-12-07] MEDS: Tamsulosin HCL 0.4 MG CAPSULE PO (08:51)
[2022-12-07] MEDS: VerapamiL HCL SR 180 MG TABLET.ER PO (08:51)
[2022-12-07] MEDS: 0.9 % Sodium Chloride Flush 3 ML SYRINGE IVFLUSH (08:52)
[2022-12-07] MEDS: Potassium Chloride ER 10 MEQ TABLET.ER PO (08:52)
--- NOTE | 2022-12-07 14:41 | MHC.CM.PN ---
PT LIVES WITH HIS AND HAS DAILY [employer] PATH[employer] SERVICES HE USES A [facility] FOR DME HE HAS A HCP ON FILE HE BELIEVES HIS PCP IS STILL ISABELLA CARR DCP: HOME WITH NO NEW SERVICES TODAY VIA LYFT
== END 2022-12-07 12:06 | disposition home or self-care (01) | DRG 392 ==
LOC: HO.ED 04:45 → HO.EDOVER 05:07 → HO.S3 14:44
PROVIDERS: Admitting Provider Student in an Organized Health Care Education/Training Program; Emergency Provider Emergency Medicine Emergency Medical Services; Visit Provider Nurse Practitioner Acute Care
DX: K57.32 Diverticulitis of large intestine without perforation or abscess without bleeding (principal); I50.32 Chronic diastolic (congestive) heart failure; E78.00 Pure hypercholesterolemia, unspecified; K21.9 Gastro-esophageal reflux disease without esophagitis; N40.0 Benign prostatic hyperplasia without lower urinary tract symptoms; J44.9 Chronic obstructive pulmonary disease, unspecified; I11.0 Hypertensive heart disease with heart failure; I48.0 Paroxysmal atrial fibrillation; Z95.0 Presence of cardiac pacemaker; Z79.01 Long term (current) use of anticoagulants; Z79.51 Long term (current) use of inhaled steroids; Z79.82 Long term (current) use of aspirin; Z79.899 Other long term (current) drug therapy
CPT/HCPCS: 36415; 70450; 74176; 80048; 80076; 82550; 82947; 83690; 84484; 85025; 85610; 85652; 85730; 86140; 93005; 99285; J1170; J2405; J2543

== ENCOUNTER → 2022-12-06 04:58 | Outpatient (BNV) | payer OTHER, SELFPAY | PROVIDERS: Admitting Provider Student in an Organized Health Care Education/Training Program; Emergency Provider Emergency Medicine Emergency Medical Services; Visit Provider Internal Medicine Gastroenterology | DX: K57.92 Diverticulitis of intestine, part unspecified, without perforation or abscess without bleeding (principal); K21.9 Gastro-esophageal reflux disease without esophagitis | CPT/HCPCS: 99232 ==

== ENCOUNTER → 2022-12-06 04:58 | Outpatient (BNV) | payer OTHER, SELFPAY | PROVIDERS: Admitting Provider Student in an Organized Health Care Education/Training Program; Emergency Provider Emergency Medicine Emergency Medical Services; Visit Provider Student in an Organized Health Care Education/Training Program | DX: K57.92 Diverticulitis of intestine, part unspecified, without perforation or abscess without bleeding (principal) | CPT/HCPCS: 99222; 99239; 99499 ==

== ENCOUNTER 2023-01-14 16:01 | Outpatient (AMB) | payer OTHER, SELFPAY ==
--- NOTE | 2023-01-14 16:12 | MHC.OFFVIS ---
Intake Vital Signs 01/14/23 16:13 Height 5 ft 6 in Weight 206 lb 5.643 oz BMI 33.3 BP 152/70 H Blood Pressure Location Lt brachial Position Sitting Pulse 69 Intake Visit Reasons: GERD, CIC, IBS Intake Note: Pal returns to in office visit today in 3 months follow up of GERD, CIC, and IBS. CC: Patient reports he is doing well. He states he is very upset he was given an appointment at this time with his age. He was advised that he can always call and change his appt time but he states he forgot. 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 GIPSON apixaban [From ELIQUIS] Allergy (Unknown, Verified 01/14/23 16:15) Rash rosuvastatin [Crestor] Allergy (Unknown, Verified 01/14/23 16:15) myalgia HPI GERD, CIC, IBS HPI Details LAST VISIT: Abdominal pain Continue taking Senokot and Colace. Patient denies any abdominal pain or discomfort. Diverticulitis History of diverticulitis in the past. Patient was encouraged to take probiotic every morning. Patient denies any pain or discomfort. GERD (gastroesophageal reflux disease) Continue pantoprazole every morning half an hour before breakfast. Avoid dietary triggers and late night snacking. Staying upright for minimal 3 hours after meals discussed with patient Constipation Continue colon and senna. Patient was encouraged to eat more vegetables. I will see him in 6 weeks. Patient will bring medications in so we can review. Patient is agreeable to this plan and verbalizes understanding of instructions. He was given the opportunity to ask questions and all questions answered. ? Thank you for allowing me to participate in his care Plan Medications Discontinued Bifidobacterium infantis ONE orally daily; 30 tabs 5RF K57.92 - Diverticulitis of intestine, part unspecified, without perforation or abscess without bleeding, R10.9 - Unspecified abdominal pain TODAY'S VISIT Patient is here today for follow-up. Patient is upset because his appointment was made late in the day. Patient has to take a bus to [place] and has to walk into his house when it is dark outside. Patient otherwise reports that he has been feeling well. Denies any abdominal pain or discomfort. Reports that he has been eating well and has good appetite. Denies any melena, hematochezia, unintentional weight loss or ribbon like stools. Patient denies any dyspepsia, dysphagia or odynophagia. Patient reports that he has been moving his bowels well. Denies any abdominal pain or discomfort. States that he does not wish to go for colonoscopy. Patient denies any GI concerning symptoms. [facility] Medical History Pacemaker History of TIA (transient ischemic attack) (~2021) History of COVID-19 Tension headache Meningioma Hypertrophic cardiomyopathy Hearing loss Diastolic CHF, 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 Frequency of micturition Chronic abdominal pain Peripheral neuropathy Constipation Diverticulitis Polyarthralgia Primary osteoarthritis of right knee Urinary incontinence History of CVA (cerebrovascular accident) (~2018) Protrusion of lumbar intervertebral disc History of rib fracture Peripheral vascular disease GERD (gastroesophageal reflux disease) Obstructive sleep apnea BPH (benign prostatic hyperplasia) Anxiety and depression Paroxysmal atrial fibrillation COPD (chronic obstructive pulmonary disease) Obesity (BMI 30-39.9) Hypercholesterolemia Hypertension Anemia Current use of anticoagulant therapy Surgical History History of pacemaker History of colonoscopy History of total right hip replacement (~2016) History of transurethral resection of prostate History of tonsillectomy History of left knee replacement (~2007) Family History Father No problems noted. 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 Patient Tobacco Use Status: Never used Tobacco Years Smoked: 30 yrs ago Second Hand Smoke Exposure: No Advance Directives Date on File: 04/06/20 service: No Current occupational status: unemployed and retired Current occupation: Right Handed Review of Systems Const Denies weight gain and Denies weight loss ENT Reports no additional complaints, Denies dysphagia and Denies odynophagia Card Reports no additional complaints Resp Reports no additional complaints GI Denies abdominal pain, Denies belching, Denies melena, Denies bloating, Denies change in bowel habits, Denies dysphagia, Denies excessive flatus, Denies dyspepsia, Denies heartburn, Denies diarrhea, Denies loose stools, Denies nausea, Denies odynophagia and Denies vomiting Reports no additional complaints Musc Reports no additional complaints Neuro Reports no additional complaints Psych Reports no additional complaints Endo Reports no additional complaints Physical Exam Vital Signs: Last Vital Signs Pulse 69 01/14/23 16:13 BP 152/70 H 01/14/23 16:13 BMI result Body Mass Index 33.3 Const General: healthy appearing, no acute distress and well developed Nutritional Appearance: obese Orientation/consciousness: patient oriented x3 HEENT Head: Yes normal to inspection, Yes normocephalic and Yes atraumatic Face and sinus: Yes normal facial exam Mouth: Normal oral and palatal mucosa present Throat: Yes posterior oropharynx normal, Yes tonsils normal and Yes uvula midline Eyes General: appearance normal, both eyes and all related structures Neck Neck: Yes normal visual inspection, Yes full ROM and Yes trachea midline Thyroid: Thyroid normal Resp Effort & Inspection: normal respiratory effort, able to speak in complete sentences, no tracheal deviation and symmetric chest movement Auscultation: clear to auscultation bilaterally Cardio Rate: regular rate GI Inspection: Yes normal to inspection, No distended and Yes obesity Palpation (GI): Soft to palpation, not firm, nontender and No hepatosplenomegaly present Auscultation: normal bowel sounds General: Yes no CVA tenderness Back/Spine/Pelvis Back: no CVA tenderness Skin General skin exam: elasticity normal, turgor normal and dry skin Neuro General: patient oriented x3 Psych Appearance: grossly normal Mental Status: mental status grossly normal Assessment & Plan Assessment & Plan (1) Abdominal pain: Code(s): R10.9 - Unspecified abdominal pain Qualifiers: Abdominal location: left lower quadrant Qualified Code(s): R10.32 - Left lower quadrant pain (2) Diverticulitis: Code(s): K57.92 - Diverticulitis of intestine, part unspecified, without perforation or abscess without bleeding (3) GERD (gastroesophageal reflux disease): Code(s): K21.9 - Gastro-esophageal reflux disease without esophagitis Qualifiers: Esophagitis presence: esophagitis presence not specified Qualified Code(s): K21.9 - Gastro-esophageal reflux disease without esophagitis (4) Constipation: Code(s): K59.00 - Constipation, unspecified Qualifiers: Constipation type: slow transit constipation Qualified Code(s): K59.01 - Slow transit constipation Plan Continue pantoprazole in the morning half an hour before breakfast. Avoid dietary triggers. Patient was encouraged to take Colace twice a day and Senokot in the evening. Patient reports that he is moving his bowels well. Continues to decline going for colonoscopy. Patient states that he does have a pacemaker placed in he does not feel like he wants to go for colonoscopy. Patient will return in the office in 4 months, sooner on as needed basis. Patient is agreeable to this plan and verbalizes understanding of instructions. He was given the opportunity to ask questions and all questions answered. Thank you for allowing me to participate in his care Coding Level of Care Code Est Pt Level 3 (91878) Diagnoses Left lower quadrant abdominal pain R10.32 Abdominal location: left lower quadrant Diverticulitis K57.92 Gastroesophageal reflux disease, unspecified whether esophagitis present K21.9 Esophagitis presence: esophagitis presence not specified Slow transit constipation K59.01 Constipation type: slow transit constipation Time Spent (min) 25 Comment 15 minutes spent with patient and additional 10 minutes spent reviewing his records
[2023-01-14 16:13] VITALS: BP 152/70; PULSE 69; BMI 33.3
== END 2023-01-14 16:48 | disposition home or self-care (01) ==
PROVIDERS: Visit Provider Nurse Practitioner Family
DX: R10.32 Left lower quadrant pain (principal); K57.92 Diverticulitis of intestine, part unspecified, without perforation or abscess without bleeding; K21.9 Gastro-esophageal reflux disease without esophagitis; K59.01 Slow transit constipation
CPT/HCPCS: 99213

== ENCOUNTER → 2023-01-14 16:01 | Outpatient (BNVA) | payer OTHER, SELFPAY | PROVIDERS: Visit Provider Nurse Practitioner Family | DX: K59.04 Chronic idiopathic constipation (principal); K21.9 Gastro-esophageal reflux disease without esophagitis; K58.1 Irritable bowel syndrome with constipation | CPT/HCPCS: 99212 ==

== ENCOUNTER 2023-01-16 15:08 | Emergency (ER) | payer OTHER, SELFPAY ==
--- NOTE | ~2023-01-16 | CT_ITS ---
EXAMINATION: CT ABDOMEN AND PELVIS WITH CONTRAST CLINICAL INFORMATION: Pain. COMPARISON: 12/06/2022. TECHNIQUE: Multidetector volumetric images were obtained from the superior aspect of the liver through the pubic symphysis following administration 85 mL of Omnipaque 350 intravenous contrast. Sagittal and coronal reformatted images were obtained on the technologist's workstation. Oral contrast: No This CT examination was performed using dose optimization techniques as appropriate, variously including the following: *Automated exposure control *Adjustment of mA and/or kV according to patient size (this includes techniques or standardized protocols for targeted exams where dose is matched to indication/reason for exam; i.e. extremities or head) *Use of iterative reconstruction technique DLP: 831 mGy-cm FINDINGS: LUNG BASES: There is scarring at the lung bases. LIVER, GALLBLADDER, AND BILIARY TREE: The liver is normal in size, shape, and attenuation. No focal hepatic lesion or biliary ductal dilatation is present. The gallbladder is unremarkable with no evidence of radiopaque gallstones, gallbladder wall thickening, or obvious pericholecystic inflammatory changes. PANCREAS: Unremarkable. SPLEEN: Unremarkable. ADRENAL GLANDS: Unremarkable. KIDNEYS AND URETERS: The kidneys are normal in size, shape, and attenuation. No hydronephrosis, hydroureter, or calculi seen. No perinephric stranding. BLADDER: Unremarkable. GASTROINTESTINAL TRACT: There are diverticula of the ascending and descending colon with mild infiltrative change along the descending colonic diverticula. The appendix is visualized and is within normal limits ABDOMINAL WALL: No significant hernia is appreciated. LYMPH NODES: Normal. VASCULAR: There is atherosclerotic plaque of the abdominal aorta and proximal branches. PELVIC VISCERA: Unremarkable. OSSEOUS STRUCTURES: There is a right hip prosthesis in place. There is mild to moderate left hip degenerative change. There is diffuse thoracolumbar degenerative change with minimal anterolisthesis L5 over S1. There is bilateral L5 spondylolysis. CT/CT abdomen pelvis w IV con IMPRESSION: Diverticula of the ascending and is likely just within the descending colon with apparent mild acute diverticulitis of the distal descending colon. No other significant abnormality seen. Fleischner guidelines were followed.
[2023-01-16 15:18] VITALS: BP 150/74; BP 169/89; PULSE 64; PULSE 68; RESP 18; TEMP 37.7; O2SAT 98; BMI 38.4
--- NOTE | 2023-01-16 15:42 | ED_ITS ---
HPI - Abdominal Pain General Chief Complaint: Abdominal Pain Stated Complaint: LOWER ABD PAIN X 2 DAYS Time Seen by Provider: 01/16/23 15:25 History of Present Illness HPI narrative: 87 years old with history of paroxysmal atrial fibrillation on anticoagulation, BPH, essential hypertension, congestive heart failure with preserved ejection fraction, GERD, prior diverticulitis, presents emergency room with 2 days history of left lower quadrant pain similar to his prior presentation in November 2022. Patient reports that the pain is been constant since yesterday morning, 10/02 this morning and 05/02 at the time of examination. He denies nausea and vomiting. No urinary symptoms No chest pain, shortness of breath, cough chills or fever. Patient denies recent falls. No prior abdominal surgery Patient denies diarrhea, bloody stools or melena Related Data Home Medications Medication Instructions Recorded Confirmed atorvastatin 80 mg tablet 80 mg PO BEDTIME 06/03/20 12/06/22 carvedilol 25 mg tablet 25 mg PO BID 12/04/20 12/06/22 potassium chloride 10 mEq 1 tab PO BID 11/14/21 12/06/22 tablet,extended release docusate sodium 100 mg capsule 100 mg PO BID 09/07/22 12/06/22 sennosides 8.6 mg tablet (senna) 8.6 mg PO BEDTIME 09/07/22 12/06/22 fluticasone furoate 200 1 inh inhalation DAILY 12/06/22 12/06/22 mcg-vilanterol 25 mcg/dose inhalation powder (Breo Ellipta) rivaroxaban 20 mg tablet (Xarelto) 20 mg PO DAILY 12/06/22 12/06/22 ferrous sulfate 325 mg (65 mg 325 mg PO DAILY 12/07/22 12/07/22 iron) tablet (FeroSul) fluticasone propionate 50 1 spray intranasal DAILY PRN 12/07/22 12/07/22 mcg/actuation nasal Allergy Symptoms spray,suspension losartan 50 mg tablet 50 mg PO DAILY 12/07/22 12/07/22 multivitamin 1 tab PO DAILY 12/07/22 12/07/22 aahaqetg-bkr-begly acid 0.4 tab PO 01/14/23 mg-lycopene 300 mcg-lutein 250 mcg tablet (CertaVite Senior) sucralfate 100 mg/mL oral ml PO 01/14/23 suspension verapamil 180 mg tablet,extended 180 mg PO DAILY 01/14/23 release Previous Rx's Medication Instructions Recorded tamsulosin 0.4 mg capsule 0.4 mg PO DAILY 90 days #90 caps 03/29/21 aspirin 81 mg capsule 81 mg PO DAILY #30 caps 01/31/22 pantoprazole 40 mg tablet,delayed 40 mg PO DAILY@0630 #30 tabs 11/19/22 release furosemide 40 mg tablet 40 mg PO DAILY #30 tabs 12/05/22 levofloxacin 500 mg tablet 500 mg PO DAILY #8 tabs 12/07/22 amoxicillin 875 mg-potassium 1 tab PO Q8H #42 tabs 01/16/23 clavulanate 125 mg tablet Allergies Allergy/AdvReac Type Severity Reaction Status Date / Time ezetimibe [From Zetia] Allergy Severe Anaphylaxis Verified 01/14/23 16:15 dabigatran etexilate Allergy Intermediate ITCHING Verified 01/14/23 16:15 [From PRADAXA] JORGE L Inhibitors Allergy Mild UNKNOWN, Verified 01/14/23 16:15 [Jorge L Inhibitors] FOUND IN MEDICAL RECORD 04/[address] GIPSON apixaban [From ELIQUIS] Allergy Unknown Rash Verified 01/14/23 16:15 rosuvastatin [Crestor] Allergy Unknown myalgia Verified 01/14/23 16:15 Review of Systems Review of Systems Yes all other systems are reviewed and are negative PMFSH Past Medical History Medical History Pacemaker History of TIA (transient ischemic attack) (~2021) History of COVID-19 Tension headache Meningioma Hypertrophic cardiomyopathy Hearing loss Diastolic CHF, 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 Frequency of micturition Chronic abdominal pain Peripheral neuropathy Constipation Diverticulitis Polyarthralgia Primary osteoarthritis of right knee Urinary incontinence History of CVA (cerebrovascular accident) (~2018) Protrusion of lumbar intervertebral disc History of rib fracture Peripheral vascular disease GERD (gastroesophageal reflux disease) Obstructive sleep apnea BPH (benign prostatic hyperplasia) Anxiety and depression Paroxysmal atrial fibrillation COPD (chronic obstructive pulmonary disease) Obesity (BMI 30-39.9) Hypercholesterolemia Hypertension Anemia Current use of anticoagulant therapy Surgical History History of pacemaker History of colonoscopy History of total right hip replacement (~2016) History of transurethral resection of prostate History of tonsillectomy History of left knee replacement (~2007) Family History Family History Father No problems noted. Mother Hx of type 1 diabetes mellitus Social History Household Members: Spouse Housing: Apartment Housing Other:: Home for the elderly Do you presently have visiting nurse or other home services: No Alcohol intake: never Patient Tobacco Use Status: Never used Tobacco Years Smoked: 30 yrs ago Smoked in Last 30 Days: No Second Hand Smoke Exposure: No Use of substances other than those prescribed or required for medical reasons: No Advance Directives: Yes Advance Directives on File: Yes Advance Directives Date on File: 04/06/20 service: No Current occupational status: unemployed and retired Current occupation: Right Handed Physical Exam ED Vital Signs: Vital Signs - 24 hr 01/16/23 15:18 Temperature 99.8 F Pulse Rate 64 Respiratory Rate 18 Blood Pressure 169/89 H Pulse Oximetry 98 Oxygen Delivery Method Room Air BMI result Body Mass Index 38.4 General: Alert, Not in Distress Skin: No rash, warm HEENT: Atraumatic, No Exudate or Pharyngeal Erythema Resp: Normal Breath sounds bilaterally Cardio: Regular rate and Rhythm, Normal S1, S2 ABD: Abd tender in LLQ, no guarding or rebound. Normal Bowel sounds. : No cva tenderness Neuro: Alert, oriented x4, PERRL Strenght 5/5 on all extremities Sensation is preserved in both lower and upper extremities Index to nose: normal Cranial Nerves II-XII grossly intact No dysarthria, or aphasia No neglet. Visual leung are normal bilaterally Psych: Cooperative, NO SI Course Reevaluation(s) Reevaluation #1: Patient reports improvement of his pain which is now resolved. His imaging was consistent with mild diverticulitis. Given patient age case was discussed with hospitalist for admission, patient was given ceftriaxone and metronidazole IV. However after the hospitalist reviewed the case and discuss plan with patient patient will prefer to be discharged and try oral antibiotic. Considering patient pain as complete resolved, considering the patient has capacity discharge patient home weight recommendation to return if pain worsened. Would also recommend clear liquid diet for the 1st 24 hours and then transition to normal diet. Will discharge patient on amoxicillin which should have less side effects than ciprofloxacin and Flagyl and initial have good covered for anaerobic pathogens. + Time: 18:46 Medical Decision Making Medical Decision Making [facility] Narrative: 87 years old presenting to the emergency room for left lower quadrant pain. Possible differential diagnosis include diverticulitis, viral syndrome, enterocolitis, constipation Patient systemically looks well, pain is moderate intensity not associated with the nausea or vomiting. Plan CBC, CMP, lipase, lactic IV fluids Analgesia CT abd w contras. Admission/Observation Consideration of admission/observation: Escalation of care including admission/observation considered Consult Healthcare Provider Management of the patient was discussed with: Hospitalist (patient prefers outpatietn management) Lab Data [facility] Lab Attestation statement: I reviewed the patient's lab results. 01/16/23 16:37 01/16/23 16:37 Labs: Lab Results 01/16/23 Range/Units 16:37 WBC 9.5 (4.8-10.8) X10*3/uL RBC 3.76 L (4.60-5.80) X10*6/uL Hgb 10.3 L (14.0-18.0) g/dl Hct 32.3 L (42.0-52.0) % MCV 85.9 (80.0-98.0) fL MCH 27.4 (27.0-33.0) pg MCHC 31.9 (31.0-36.0) g/dl RDW 15.5 (11.0-16.0) % Plt Count 153 L D (160-400) X10*3/uL MPV 9.4 (9.4-12.4) fL Immature Gran % (Auto) 0.5 H (0.0-0.4) % Neut % (Auto) 72.1 (45-73) % Lymph % (Auto) 17.7 L (20-40) % [place] % (Auto) 6.9 (2-11) % Eos % (Auto) 2.5 (0-4) % Baso % (Auto) 0.3 (0-2) % Lymph # (Auto) 1.7 (1.2-4.9) X10*3/uL [place] # (Auto) 0.7 (0.1-1.2) X10*3/uL Eos # (Auto) 0.2 (0.0-0.4) X10*3/uL Baso # (Auto) 0.0 (0.0-0.2) X10*3/uL Abs Immat Gran (auto) 0.05 H (0.00-0.03) X10*3/uL Absolute Neuts (auto) 6.9 (2.0-8.3) x10*3/uL Absolute Nucleated RBC 0.000 (0.0-0.012) X10*3/uL Nucleated RBC % (auto) 0.0 (0.0-0.2) /100WBC Sodium 144 (135-145) mmol/L Potassium 4.7 (3.3-5.1) mmol/L Chloride 112 H (96-108) mmol/L Carbon Dioxide 25 (22-29) mmol/L Anion Gap 12 (12-20) BUN 22 H (9-16) mg/dL Creatinine 1.02 (0.5-1.4) mg/dL Estim Creat Clear Calc 52.1 Estimated GFR > 60 Random Glucose 98 (60-115) mg/dL Lactic Acid 1.0 (0.5-2.0) mmol/L Calcium 7.8 L D (8.4-10.2) mg/dL Total Bilirubin 0.3 (0.0-1.0) mg/dL Direct Bilirubin 0.1 (0.0-0.5) mg/dL AST 30 (5-37) U/L ALT 23 (0-40) U/L Alkaline Phosphatase 43 (39-117) U/L Total Protein 6.3 L (6.5-8.0) g/dL Albumin 3.3 L (3.5-5.0) g/dL Lipase 14 (8-78) U/L Radiology Impression Discussion of test interpretation with radiology: I have reviewed the radiologist's reading. (Diverticula of the ascending and is likely just within the descending colon with apparent mild acute diverticulitis of the distal descending colon. No other significant abnormality seen. Fleischner guidelines were followed.) Medications Administered Discontinued Medications Generic Name Dose Route Start Last Admin Trade Name Freq PRN Reason Stop Dose Admin Acetaminophen 1,000 mg in 100 mls @ 400 mls/hr 01/16/23 15:38 11/24/23 17:35 Ofirmev IV 01/16/23 15:52 Infused ONCE ONE Infusion Sodium Chloride 1,000 mls @ 999 mls/hr 01/16/23 15:45 01/16/23 17:40 Ns IV 01/16/23 16:45 Infused .Q1H1M DEEPAK Infusion Ceftriaxone Sodium 1 gm/ 50 mls @ 100 mls/hr 01/16/23 18:11 01/16/23 18:22 Sodium Chloride IV 01/16/23 18:40 100 mls/hr ONCE ONE Administration Iohexol 100 ml 01/16/23 17:31 01/16/23 17:32 Iohexol 350 Mg/Ml 100 Ml Infus..Btl IV 01/16/23 17:32 85 ml ONCE ONE Administration Discharge Plan Discharge Clinical Impression: Diverticulitis Patient Disposition: Home, Self-Care Additional Instructions: Your center emergency room for abdominal pain. Your CT scan showed that you have a mild diverticulitis. This is an inflammation of your colon and should improve with antibiotics. It is also important to have a clear liquid diet for the 1st 24 hours. This is an example of critical diet: * Water, plain, carbonated or flavored. * Fruit juices without pulp, such as apple or white grape juice. * Fruit-flavored beverages, such as fruit punch or lemonade. * Carbonated drinks, including dark sodas, such as cola and root beer. * Gelatin without fruit. * Tea or coffee without milk, cream or nondairy creamer. * Sports drinks. * Clear, fat-free broth such as bouillon or consomme. * Honey or sugar. * Hard candy, such as lemon drops or peppermint rounds. * Ice pops without milk, bits of fruit, seeds or nuts. * * We prescribed an antibiotic called Augmentin to take 3 times a day for the next 2 weeks. If pain returns or if you develop vomiting or fever please return to the emergency room immediately Prescriptions: New amoxicillin-pot clavulanate 875-125 mg tablet 1 tab PO Q8H Qty: 42 0RF No Action tamsulosin 0.4 mg capsule 0.4 mg PO DAILY 90 Days Qty: 90 3RF pantoprazole 40 mg tablet,delayed release (DR/EC) 40 mg PO DAILY@0630 Qty: 30 3RF furosemide 40 mg tablet 40 mg PO DAILY Qty: 30 5RF atorvastatin 80 mg tablet 80 mg PO BEDTIME potassium chloride 10 mEq tablet extended release 1 tab PO BID aspirin 81 mg capsule 81 mg PO DAILY Qty: 30 0RF Xarelto 20 mg tablet 20 mg PO DAILY fluticasone furoate-vilanterol [Breo Ellipta] 200-25 mcg/dose Blister With Device 1 inh INHALATION DAILY multivitamin Tablet 1 tab PO DAILY losartan 50 mg tablet 50 mg PO DAILY ferrous sulfate [FeroSul] 325 mg (65 mg iron) tablet 325 mg PO DAILY fluticasone propionate 50 mcg/actuation spray,suspension 1 spray intranasal DAILY PRN (Reason: Allergy Symptoms) levofloxacin 500 mg tablet 500 mg PO DAILY Qty: 8 0RF docusate sodium 100 mg capsule 100 mg PO BID sennosides [senna] 8.6 mg tablet 8.6 mg PO BEDTIME carvedilol 25 mg tablet 25 mg PO BID CertaVite Senior 0.4 mg-300 mcg- 250 mcg tablet PO verapamil 180 mg tablet extended release 180 mg PO DAILY sucralfate 100 mg/mL suspension PO
[2023-01-16] MEDS: 0.9 % Sodium Chloride 1,000 ML 999 ML IV (16:35)
[2023-01-16 16:42] LABS: MANUAL DIFF FLAG NO
--- NOTE | 2023-01-16 16:43 | PC.NURSE ---
hard stick, needs IV for contrast. provider placed IV to R forearm. IVF started
[2023-01-16 16:44] LABS: Basophils Percent Auto 0.3 % (0-2); Eosinophils Absolute Auto 0.2 X10*3/uL (0.0-0.4); Eosinophils Percent Auto 2.5 % (0-4); Hematocrit 32.3 % (42.0-52.0); Hemoglobin 10.3 g/dl (14.0-18.0); Imm Gran Abs Auto 0.05 X10*3/uL (0.00-0.03); Imm Gran Pct Auto 0.5 % (0.0-0.4); Lymphocytes Absolute Auto 1.7 X10*3/uL (1.2-4.9); Lymphocytes Percent Auto 17.7 % (20-40); Mean Corpuscular HGB Conc 31.9 g/dl (31.0-36.0); Mean Corpuscular Hemoglobin 27.4 pg (27.0-33.0); Mean Corpuscular Volume 85.9 fL (80.0-98.0); Mean Platelet Volume 9.4 fL (9.4-12.4); Monocytes Absolute Auto 0.7 X10*3/uL (0.1-1.2); Monocytes Percent Auto 6.9 % (2-11); Neutrophils Absolute Auto 6.9 x10*3/uL (2.0-8.3); Neutrophils Percent Auto 72.1 % (45-73); Platelet Count 153 X10*3/uL (160-400); Red Blood Count 3.76 X10*6/uL (4.60-5.80); Red Cell Distribution Width 15.5 % (11.0-16.0); White Blood Count 9.5 X10*3/uL (4.8-10.8)
[2023-01-16] MEDS: Acetaminophen 1,000 MG/100 ML PIGGYBACK 400 MG IV (16:47)
[2023-01-16 17:04] LABS: Alanine Aminotransferase 23 U/L (0-40); Albumin Level 3.3 g/dL (3.5-5.0); Alkaline Phosphatase 43 U/L (39-117); Anion Gap 12 (12-20); Aspartate Amino Transferase 30 U/L (5-37); Bilirubin Direct 0.1 mg/dL (0.0-0.5); Bilirubin Total 0.3 mg/dL (0.0-1.0); Blood Urea Nitrogen 22 mg/dL (9-16); Calcium 7.8 mg/dL (8.4-10.2); Carbon Dioxide 25 mmol/L (22-29); Chloride 112 mmol/L (96-108); Creatinine Clr Calc Pharmacy 52.1; Estimated Glomerular Filt Rate > 60; Glucose Random 98 mg/dL (60-115); Lipase 14 U/L (8-78); Potassium 4.7 mmol/L (3.3-5.1); Sodium 144 mmol/L (135-145); Total Protein 6.3 g/dL (6.5-8.0)
--- NOTE | 2023-01-16 17:18 | MHC.EDTECH ---
Walked patient to bathroom with walker
--- NOTE | 2023-01-16 17:22 | PC.NURSE ---
pt in CT
[2023-01-16] MEDS: iohexoL 350 MG/ML 100 ML INFUS..BTL IV (17:32)
[2023-01-16] MEDS: cefTRIAXone sodium 1 GM in 0.9 % Sodium Chloride 50 ML IV (18:22)
--- NOTE | 2023-01-16 18:34 | PM.EVENT ---
Event Note Date of Service: 01/16/23 Event Note: Pt seen at bedside for mild diverticulitis. Reports started with 810 nonradiating llq pain that started yesterday. No change in BMs, nausea, vomiting. He is afebrile. No leukocytosis. On exam, abd soft, nondistended, nontender to palpation without rebound or guarding. CT abd/pelvis shows mild diverticulitis, abscess or perforation. He is a currently comfortable without any observed distress. Pt is a&ox3. At this time, patient does not appear to require admission for IV abx. He states he has taken oral antibiotics in the past and would be comfortable doing so at this time. He is advised to return to the ED for any worsening symptoms or if symptoms are not resolving. Message sent to ED provider for consideration. Time Spent With Patient Time: Total time managing care of this patient today ____ minutes.
[2023-01-16] MEDS: metroNIDAZOLE/NS 500 MG/100 ML PIGGYBACK 100 MG IV (18:54)
--- NOTE | 2023-01-16 19:04 | PC.NURSE ---
pt denies any pain at this time. 2nd IV abx started, pt given morena blaze
[2023-01-16 19:56] VITALS: BP 179/82; PULSE 82; RESP 18; TEMP 36.6; O2SAT 98
--- NOTE | 2023-01-16 20:11 | PC.NURSE ---
assist pt to bathroom and then to waiting room via w/c after d/c for family to p/c
== END 2023-01-16 20:11 | disposition home or self-care (01) ==
PROVIDERS: Emergency Provider Student in an Organized Health Care Education/Training Program
DX: K57.32 Diverticulitis of large intestine without perforation or abscess without bleeding (principal); R10.32 Left lower quadrant pain; I48.0 Paroxysmal atrial fibrillation; Z79.01 Long term (current) use of anticoagulants; Z79.899 Other long term (current) drug therapy
CPT/HCPCS: 36415; 74177; 80048; 80076; 83605; 83690; 85025; 96361; 96365; 96367; 99284; J0131; J0696; J1836; Q9967

== ENCOUNTER → 2023-01-24 23:59 | Outpatient (BNV) | payer OTHER, SELFPAY ==
--- NOTE | 2023-01-31 19:01 | A.OFFVIS_ITS ---
Intake Intake Visit Reasons: Remote Device Check- [employer] Allergies ezetimibe [From Zetia] Allergy (Severe, Verified 01/14/23 16:15) Anaphylaxis dabigatran etexilate [From PRADAXA] Allergy (Intermediate, Verified 01/14/23 16:15) ITCHING JORGE L Inhibitors [Jorge L Inhibitors] Allergy (Mild, Verified 01/14/23 16:15) UNKNOWN, FOUND IN MEDICAL RECORD 04/[address] GIPSON apixaban [From ELIQUIS] Allergy (Unknown, Verified 01/14/23 16:15) Rash rosuvastatin [Crestor] Allergy (Unknown, Verified 01/14/23 16:15) myalgia [facility] Medical History Pacemaker History of TIA (transient ischemic attack) (~2021) History of COVID-19 Tension headache Meningioma Hypertrophic cardiomyopathy Hearing loss Diastolic CHF, 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 Frequency of micturition Chronic abdominal pain Peripheral neuropathy Constipation Diverticulitis Polyarthralgia Primary osteoarthritis of right knee Urinary incontinence History of CVA (cerebrovascular accident) (~2018) Protrusion of lumbar intervertebral disc History of rib fracture Peripheral vascular disease GERD (gastroesophageal reflux disease) Obstructive sleep apnea BPH (benign prostatic hyperplasia) Anxiety and depression Paroxysmal atrial fibrillation COPD (chronic obstructive pulmonary disease) Obesity (BMI 30-39.9) Hypercholesterolemia Hypertension Anemia Current use of anticoagulant therapy Surgical History History of pacemaker History of colonoscopy History of total right hip replacement (~2016) History of transurethral resection of prostate History of tonsillectomy History of left knee replacement (~2007) Family History Father No problems noted. 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 Overall normal device function. [id number] Cardiac Device Interrogation, pacemaker Procedure code (CPT) selection complete Assessment & Plan Assessment & Plan (1) Paroxysmal atrial fibrillation: Code(s): I48.0 - Paroxysmal atrial fibrillation Plan x Coding Level of Care Code Procedure Only Diagnoses Paroxysmal atrial fibrillation I48.0 CPT Codes Cardiac Device Check - Cardiac Device 12: [id number] Cardiac Device Interrogation, pacemaker ([id number])
== END ==
PROVIDERS: Visit Provider Internal Medicine
DX: I48.0 Paroxysmal atrial fibrillation (principal); Z95.0 Presence of cardiac pacemaker
CPT/HCPCS: 93294

== ENCOUNTER 2023-02-04 02:43 | Emergency (ER) | payer OTHER, SELFPAY ==
--- NOTE | ~2023-02-04 | CT_ITS ---
EXAMINATION: CT HEAD WITHOUT CONTRAST CT ANGIOGRAM HEAD AND NECK CLINICAL INFORMATION: Right-sided facial numbness COMPARISON: CT head dated 12/06/2022 TECHNIQUE: CT head without contrast was performed initially. Next, test bolus sequences followed by intravenous administration 100 mL of Omnipaque 300 intravenous contrast. Helical imaging was performed in the axial plane from the mediastinum to the skull vertex. Delayed postcontrast imaging of the head was also performed. The data was processed at the ep technologist's workstation for generation of MIP sequences. Three-dimensional volume rendered reformatted images were also generated at an offline 3-D workstation. This CT examination was performed using dose optimization techniques as appropriate, variously including the following: *Automated exposure control *Adjustment of mA and/or kV according to patient size (this includes techniques or standardized protocols for targeted exams where dose is matched to indication/reason for exam; i.e. extremities or head) *Use of iterative reconstruction technique The degree of stenosis determined by NASCET criteria. DLP: 2279 mGy-cm FINDINGS: BONES, SOFT TISSUES AND LUNG APICES: Mosaic attenuation. Diffuse subpleural reticulation. CTA NECK: The aortic arch has a classic configuration and the major arch vessel origins are non-stenotic. Right vertebral artery is dominant. Both vertebral origins are widely patent. Both common carotid arteries are normal in course and caliber. Both internal carotid arteries demonstrate moderate atherosclerotic plaque at the carotid bulbs, more pronounced on the left, however no hemodynamically significant stenosis within either extracranial internal carotid artery. CTA HEAD: Right V4 segment widely patent. There is focal moderate stenosis within the left V4 segment as seen on series 10, image 444. Diminutive left P1 segment with origin of the left posterior cerebral artery. Both posterior cerebral arteries are widely patent. Anterior cerebral arteries and middle cerebral arteries are widely patent with normal arborization bilaterally. No acute proximal large vessel occlusion, focal flow-limiting stenosis, or saccular intracranial aneurysm is identified. No abnormal parenchymal enhancement or regional oligemia is visualized. HEAD (noncontrast and delayed): There is no evidence of acute intracranial hemorrhage or territorial infarction. No abnormal mass effect or midline shift is seen. Nunez to white matter differentiation is well preserved. No pathologic intracranial enhancement. Dural sinuses are patent. No extra-axial fluid collections are identified. No hydrocephalus. No significant volume loss. Patchy periventricular and deep white matter hypoattenuation is consistent with moderate small vessel ischemic changes. Bilateral gangliocapsular lacunar infarcts redemonstrated. No acute osseous or soft tissue abnormality. The mastoid air cells and visualized portions of the paranasal sinuses are well aerated. CT/CT angio head neck IMPRESSION: * No acute intracranial pathology. * No large vessel occlusion or hemodynamically significant stenosis within the intracranial or extracranial arterial vasculature. * Moderate chronic white matter small vessel ischemic changes and bilateral gangliocapsular lacunar infarcts. * Mosaic attenuation in the upper lungs bilaterally may relate to air trapping in the setting of small airways inflammation
[2023-02-04 02:56] VITALS: BP 130/94; BP 209/85; PULSE 68; PULSE 77; RESP 14; TEMP 36.4; O2SAT 98; BMI 37.3
--- NOTE | 2023-02-04 03:02 | ECG_ITS ---
Test Reason : WEAKNESS Blood Pressure : / mmHG Vent. Rate : 067 BPM Atrial Rate : 067 BPM P-R Int : 204 ms QRS Dur : 130 ms QT Int : 470 ms P-R-T Axes : 067 -27 108 degrees QTc Int : 496 ms Atrial-sensed ventricular-paced rhythm Abnormal ECG When compared with ECG of 06-DEC-2022 01:02, Vent. rate has decreased BY 3 BPM Referred By: Mari Hurley Electronically Signed By:Jose F Lee
--- NOTE | 2023-02-04 03:05 | ED.NEUROSD ---
HPI - Neuro Symptoms/Deficit General Chief Complaint: Neuro Symptoms/Deficit Stated Complaint: numbness on right side of face Time Seen by Provider: 02/04/23 03:05 History of Present Illness HPI Narrative: The patient is an 87-year-old male who woke up in the middle of the night tonight at around midnight. He had cramps in his legs and he also felt a bit of a headache. He called 911. Paramedics also felt that the patient complained of some right-sided facial numbness but did not appreciate any objective neurological deficit. He was brought to the hospital. The patient is on rivaroxaban for anticoagulation. No chest pain. No shortness of breath. The patient requires a walker to walk. He lives with his . Related Data Home Medications Medication Instructions Recorded Confirmed atorvastatin 80 mg tablet 80 mg PO BEDTIME 06/03/20 12/06/22 carvedilol 25 mg tablet 25 mg PO BID 12/04/20 12/06/22 potassium chloride 10 mEq 1 tab PO BID 11/14/21 12/06/22 tablet,extended release docusate sodium 100 mg capsule 100 mg PO BID 09/07/22 12/06/22 sennosides 8.6 mg tablet (senna) 8.6 mg PO BEDTIME 09/07/22 12/06/22 fluticasone furoate 200 1 inh inhalation DAILY 12/06/22 12/06/22 mcg-vilanterol 25 mcg/dose inhalation powder (Breo Ellipta) rivaroxaban 20 mg tablet (Xarelto) 20 mg PO DAILY 12/06/22 12/06/22 ferrous sulfate 325 mg (65 mg 325 mg PO DAILY 12/07/22 12/07/22 iron) tablet (FeroSul) fluticasone propionate 50 1 spray intranasal DAILY PRN 12/07/22 12/07/22 mcg/actuation nasal Allergy Symptoms spray,suspension losartan 50 mg tablet 50 mg PO DAILY 12/07/22 12/07/22 multivitamin 1 tab PO DAILY 12/07/22 12/07/22 yegtvaoh-hkz-sukrj acid 0.4 tab PO 01/14/23 mg-lycopene 300 mcg-lutein 250 mcg tablet (CertaVite Senior) sucralfate 100 mg/mL oral ml PO 01/14/23 suspension verapamil 180 mg tablet,extended 180 mg PO DAILY 01/14/23 release Previous Rx's Medication Instructions Recorded tamsulosin 0.4 mg capsule 0.4 mg PO DAILY 90 days #90 caps 03/29/21 aspirin 81 mg capsule 81 mg PO DAILY #30 caps 01/31/22 pantoprazole 40 mg tablet,delayed 40 mg PO DAILY@0630 #30 tabs 11/19/22 release furosemide 40 mg tablet 40 mg PO DAILY #30 tabs 12/05/22 levofloxacin 500 mg tablet 500 mg PO DAILY #8 tabs 12/07/22 amoxicillin 875 mg-potassium 1 tab PO Q8H #42 tabs 01/16/23 clavulanate 125 mg tablet Allergies Allergy/AdvReac Type Severity Reaction Status Date / Time ezetimibe [From Zetia] Allergy Severe Anaphylaxis Verified 01/14/23 16:15 dabigatran etexilate Allergy Intermediate ITCHING Verified 01/14/23 16:15 [From PRADAXA] JORGE L Inhibitors Allergy Mild UNKNOWN, Verified 01/14/23 16:15 [Jorge L Inhibitors] FOUND IN MEDICAL RECORD 04/[address] GIPSON apixaban [From ELIQUIS] Allergy Unknown Rash Verified 01/14/23 16:15 rosuvastatin [Crestor] Allergy Unknown myalgia Verified 01/14/23 16:15 Review of Systems Review of Systems: Yes all other systems are reviewed and are negative PMFSH Past Medical History Medical History Pacemaker History of TIA (transient ischemic attack) (~2021) History of COVID-19 Tension headache Meningioma Hypertrophic cardiomyopathy Hearing loss Diastolic CHF, 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 Frequency of micturition Chronic abdominal pain Peripheral neuropathy Constipation Diverticulitis Polyarthralgia Primary osteoarthritis of right knee Urinary incontinence History of CVA (cerebrovascular accident) (~2018) Protrusion of lumbar intervertebral disc History of rib fracture Peripheral vascular disease GERD (gastroesophageal reflux disease) Obstructive sleep apnea BPH (benign prostatic hyperplasia) Anxiety and depression Paroxysmal atrial fibrillation COPD (chronic obstructive pulmonary disease) Obesity (BMI 30-39.9) Hypercholesterolemia Hypertension Anemia Current use of anticoagulant therapy Surgical History History of pacemaker History of colonoscopy History of total right hip replacement (~2017) History of transurethral resection of prostate History of tonsillectomy History of left knee replacement (~2007) Family History Family History Father No problems noted. 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 Patient Tobacco Use Status: Never used Tobacco Years Smoked: 30 yrs ago Smoked in Last 30 Days: No Second Hand Smoke Exposure: No Use of substances other than those prescribed or required for medical reasons: No Advance Directives: Yes Advance Directives on File: Yes Advance Directives Date on File: 04/06/20 service: No Current occupational status: unemployed and retired Current occupation: Right Handed Physical Exam Vital Signs: Vital Signs: Last Vital Signs Temp 98.0 F 02/04/23 07:25 Pulse 70 02/04/23 07:25 Resp 14 02/04/23 07:25 BP 189/85 H 02/04/23 07:25 Pulse Ox 98 02/04/23 07:25 O2 Del Method Room Air 02/04/23 07:25 BMI result Body Mass Index 37.3 Const: Other: The patient is awake, alert, pleasant, cooperative. He seems chronically ill but does not appear obviously acutely ill and does not show signs of an obvious neurological deficit. HEENT: Other: Face is symmetrical. Tongue is midline. Eyes: Other: Pupils are round equal, conjunctivae are clear, lateral gaze intact, visual leung intact to confrontation. Neck: Other: No JVD. Moving his neck easily Resp: Other: Breath sounds are clear bilaterally. No signs of respiratory difficulty Cardio: Other: The patient has a regular rate and rhythm with no murmur. GI: Other: Soft nontender Skin: Other: Dry and unremarkable. No rash. Neuro: Other: The patient is awake, alert, appropriate. Normal mental status. Lateral gaze intact. Visual leung are intact. Pupils are equal. Face is symmetrical. Speech is clear. Orientation is normal. Intact strength in all 4 extremities. Intact cerebellar testing. The patient was able to walk steadily with a walker. No sensory deficits. The patient seems grossly neurologically intact. Extrem: Other: Some mild thickness of the lower legs without pitting edema Medications Administered Discontinued Medications Generic Name Dose Route Start Last Admin Trade Name Moise PRN Reason Stop Dose Admin Iohexol 70 ml 02/04/23 05:05 02/04/23 05:06 Iohexol 350 Mg/Ml 100 Ml Infus..Btl IV 02/04/23 05:06 70 ml ONCE ONE Administration Medical Decision Making Medical Decision Making [facility] Narrative: Patient is an 87-year-old male with multiple medical problems including history of heart block with a pacemaker. He has a history of hypertrophic cardiomyopathy. He is on rivaroxaban as an anticoagulant. He was woken from sleep tonight by cramps in his legs. He also had a headache. He called an ambulance. He mentioned question of some numbness on the right side of his face. Both with paramedics and on my exam he does not have any obvious signs of a focal neurological deficit. Overall I thought he looked reasonably well and seemed to be functioning well. His workup including a CT angio of the head neck is essentially unremarkable. The patient was observed for several hours and seems stable. He did not seem to exhibit any signs of neurological deficit. He was reassured. He was discharged home. Lab Data 02/04/23 03:36 02/04/23 03:36 Labs: Lab Results 02/04/23 Range/Units 03:36 WBC 7.8 (4.8-10.8) X10*3/uL RBC 4.03 L (4.60-5.80) X10*6/uL Hgb 10.7 L (14.0-18.0) g/dl Hct 34.6 L (42.0-52.0) % MCV 85.9 (80.0-98.0) fL MCH 26.6 L (27.0-33.0) pg MCHC 30.9 L (31.0-36.0) g/dl RDW 14.8 (11.0-16.0) % Plt Count 255 D (160-400) X10*3/uL MPV 9.2 L (9.4-12.4) fL Immature Gran % (Auto) 0.4 (0.0-0.4) % Neut % (Auto) 63.3 (45-73) % Lymph % (Auto) 27.0 (20-40) % [place] % (Auto) 7.3 (2-11) % Eos % (Auto) 1.7 (0-4) % Baso % (Auto) 0.3 (0-2) % Lymph # (Auto) 2.1 (1.2-4.9) X10*3/uL [place] # (Auto) 0.6 (0.1-1.2) X10*3/uL Eos # (Auto) 0.1 (0.0-0.4) X10*3/uL Baso # (Auto) 0.0 (0.0-0.2) X10*3/uL Abs Immat Gran (auto) 0.03 (0.00-0.03) X10*3/uL Absolute Neuts (auto) 4.9 (2.0-8.3) x10*3/uL Absolute Nucleated RBC 0.000 (0.0-0.012) X10*3/uL Nucleated RBC % (auto) 0.0 (0.0-0.2) /100WBC ESR 58 H (0-15) MM/HR PT 23.0 H D (11.1-13.3) SEC INR 1.9 H (0.9-1.1) Sodium 142 (135-145) mmol/L Potassium 3.5 D (3.3-5.1) mmol/L Chloride 109 H (96-108) mmol/L Carbon Dioxide 27 (22-29) mmol/L Anion Gap 10 L (12-20) BUN 13 (9-16) mg/dL Creatinine 0.93 (0.5-1.4) mg/dL Estim Creat Clear Calc 58.3 Estimated GFR > 60 Random Glucose 99 (60-115) mg/dL Calcium 8.9 D (8.4-10.2) mg/dL Magnesium 2.1 (1.6-2.6) mg/dL Total Bilirubin 0.3 (0.0-1.0) mg/dL Direct Bilirubin 0.1 (0.0-0.5) mg/dL AST 26 (5-37) U/L ALT 26 (0-40) U/L Alkaline Phosphatase 53 (39-117) U/L Troponin I High Sens 15.0 D (<3.5-35.0) ng/L C-Reactive Protein 0.65 H (< or = 0.50) mg/dL B-Natriuretic Peptide 166 H (<100) pg/mL Total Protein 6.2 L (6.5-8.0) g/dL Albumin 3.4 L (3.5-5.0) g/dL COVID-19 (FERMIN) Negative (Negative) COVID-19 Clin Com See Note NIH Stroke Scale Level of Consciousness: Alert Level of Consciousness Questions: Answers both questions correctly Level of Consciousness Commands: Performs both tasks correctly Best Gaze: Normal Visual: No visual loss Facial Palsy: Normal Motor Arm (Right): No drift Motor Arm (Left): No drift Motor Leg (Right): No drift Motor Leg (Left): No drift Limb Ataxia: Absent Sensory: Normal Best Language: No aphasia Dysarthia: Normal Extinction and Inattention: No abnormality Score: 0 Discharge Plan Discharge Clinical Impression: Bilateral leg cramps, Headache Patient Disposition: Home, Self-Care Additional Instructions: Your testing in the emergency room today has been very reassuring. Please resume your regular medications. Take your morning medications when you get home. Please follow-up soon with your regular doctor to discuss these symptoms further. Return to the emergency was significantly worse. Prescriptions: No Action tamsulosin 0.4 mg capsule 0.4 mg PO DAILY 90 Days Qty: 90 3RF pantoprazole 40 mg tablet,delayed release (DR/EC) 40 mg PO DAILY@0630 Qty: 30 3RF furosemide 40 mg tablet 40 mg PO DAILY Qty: 30 5RF atorvastatin 80 mg tablet 80 mg PO BEDTIME potassium chloride 10 mEq tablet extended release 1 tab PO BID aspirin 81 mg capsule 81 mg PO DAILY Qty: 30 0RF Xarelto 20 mg tablet 20 mg PO DAILY fluticasone furoate-vilanterol [Breo Ellipta] 200-25 mcg/dose Blister With Device 1 inh INHALATION DAILY multivitamin Tablet 1 tab PO DAILY losartan 50 mg tablet 50 mg PO DAILY ferrous sulfate [FeroSul] 325 mg (65 mg iron) tablet 325 mg PO DAILY fluticasone propionate 50 mcg/actuation spray,suspension 1 spray intranasal DAILY PRN (Reason: Allergy Symptoms) levofloxacin 500 mg tablet 500 mg PO DAILY Qty: 8 0RF docusate sodium 100 mg capsule 100 mg PO BID sennosides [senna] 8.6 mg tablet 8.6 mg PO BEDTIME amoxicillin-pot clavulanate 875-125 mg tablet 1 tab PO Q8H Qty: 42 0RF carvedilol 25 mg tablet 25 mg PO BID CertaVite Senior 0.4 mg-300 mcg- 250 mcg tablet PO verapamil 180 mg tablet extended release 180 mg PO DAILY sucralfate 100 mg/mL suspension PO
--- NOTE | 2023-02-04 03:24 | MHC.EDTECH ---
Patient came in by ambulance,changed into hospital attire and placed on the monitoring tech,vitals and EKG taken.
[2023-02-04 03:40] VITALS: BP 193/81; PULSE 66; RESP 13; O2SAT 97
[2023-02-04 03:43] LABS: MANUAL DIFF FLAG NO
[2023-02-04 03:50] LABS: Basophils Percent Auto 0.3 % (0-2); Eosinophils Absolute Auto 0.1 X10*3/uL (0.0-0.4); Eosinophils Percent Auto 1.7 % (0-4); Hematocrit 34.6 % (42.0-52.0); Hemoglobin 10.7 g/dl (14.0-18.0); Imm Gran Abs Auto 0.03 X10*3/uL (0.00-0.03); Imm Gran Pct Auto 0.4 % (0.0-0.4); Lymphocytes Absolute Auto 2.1 X10*3/uL (1.2-4.9); Mean Corpuscular HGB Conc 30.9 g/dl (31.0-36.0); Mean Corpuscular Hemoglobin 26.6 pg (27.0-33.0); Mean Corpuscular Volume 85.9 fL (80.0-98.0); Mean Platelet Volume 9.2 fL (9.4-12.4); Monocytes Absolute Auto 0.6 X10*3/uL (0.1-1.2); Monocytes Percent Auto 7.3 % (2-11); Neutrophils Absolute Auto 4.9 x10*3/uL (2.0-8.3); Neutrophils Percent Auto 63.3 % (45-73); Platelet Count 255 X10*3/uL (160-400); Red Blood Count 4.03 X10*6/uL (4.60-5.80); Red Cell Distribution Width 14.8 % (11.0-16.0); White Blood Count 7.8 X10*3/uL (4.8-10.8)
[2023-02-04 03:58] LABS: INTERNATIONAL NORM RATIO 1.9 (0.9-1.1)
[2023-02-04 04:02] LABS: COVID-19 Test Negative (Negative); IDNOW Serial# 08D9AD1C
[2023-02-04 04:18] LABS: Alanine Aminotransferase 26 U/L (0-40); Albumin Level 3.4 g/dL (3.5-5.0); Alkaline Phosphatase 53 U/L (39-117); Anion Gap 10 (12-20); Aspartate Amino Transferase 26 U/L (5-37); Bilirubin Direct 0.1 mg/dL (0.0-0.5); Bilirubin Total 0.3 mg/dL (0.0-1.0); Blood Urea Nitrogen 13 mg/dL (9-16); C Reactive Protein 0.65 mg/dL (< or = 0.50); Calcium 8.9 mg/dL (8.4-10.2); Carbon Dioxide 27 mmol/L (22-29); Chloride 109 mmol/L (96-108); Creatinine Clr Calc Pharmacy 58.3; Estimated Glomerular Filt Rate > 60; Glucose Random 99 mg/dL (60-115); Magnesium 2.1 mg/dL (1.6-2.6); Potassium 3.5 mmol/L (3.3-5.1); Sodium 142 mmol/L (135-145); Total Protein 6.2 g/dL (6.5-8.0)
[2023-02-04 04:21] LABS: B Type Natriuretic Peptide 166 pg/mL (<100)
[2023-02-04 04:22] LABS: Erythrocyte Sedimentation Rate 58 MM/HR (0-15)
[2023-02-04 04:30] VITALS: BP 193/75; PULSE 62; RESP 18; TEMP 36.6; O2SAT 97
[2023-02-04] MEDS: iohexoL 350 MG/ML 100 ML INFUS..BTL 70 ML IV (05:06)
--- NOTE | 2023-02-04 05:21 | PC.NURSE ---
BP remains around 190s/70s. aware. no new orders at this time
--- NOTE | 2023-02-04 05:22 | MHC.EDTECH ---
Patient ,ambulated a short distance,and was a little unsteady,patient brought to bathroom in a wheelchair, patient's BP is elevated Liza PAYNE is aware
[2023-02-04 06:19] VITALS: BP 180/74; PULSE 66; RESP 16; TEMP 36.5; O2SAT 100
--- NOTE | 2023-02-04 06:20 | MHC.EDTECH ---
Hourly rounds and vitals completed,BP is elevated 180/74 Liza PAYNE made aware.
[2023-02-04 07:25] VITALS: BP 189/85; PULSE 70; RESP 14; TEMP 36.7; O2SAT 98
== END 2023-02-04 08:30 | disposition home or self-care (01) ==
PROVIDERS: Emergency Medicine; Emergency Provider Emergency Medicine
DX: M79.605 Pain in left leg (principal); M79.604 Pain in right leg; R60.0 Localized edema; R51.9 Headache, unspecified; R29.700 NIHSS score 0; Z11.52 Encounter for screening for COVID-19; I11.0 Hypertensive heart disease with heart failure; I50.33 Acute on chronic diastolic (congestive) heart failure; E78.00 Pure hypercholesterolemia, unspecified; I48.0 Paroxysmal atrial fibrillation; Z86.73 Personal history of transient ischemic attack (TIA), and cerebral infarction without residual deficits; Z95.0 Presence of cardiac pacemaker; Z79.02 Long term (current) use of antithrombotics/antiplatelets; Z79.01 Long term (current) use of anticoagulants; Z79.899 Other long term (current) drug therapy; Z79.82 Long term (current) use of aspirin
CPT/HCPCS: 36415; 70496; 70498; 80048; 80076; 83735; 83880; 84484; 85025; 85610; 85652; 86140; 87635; 93005; 99284; Q9967

== ENCOUNTER → 2023-02-04 03:02 | Outpatient (BNV) | payer OTHER, SELFPAY | PROVIDERS: Emergency Provider Emergency Medicine; Visit Provider Internal Medicine Cardiovascular Disease | DX: R94.31 Abnormal electrocardiogram [ECG] [EKG] (principal) | CPT/HCPCS: 93010 ==

== ENCOUNTER 2023-02-06 13:01 | Outpatient (AMB) | payer OTHER, SELFPAY ==
[2023-02-06 13:06] VITALS: BP 142/58; PULSE 68; BMI 37.7
--- NOTE | 2023-02-06 13:06 | MHC.OFFVIS ---
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 GIPSON apixaban [From ELIQUIS] Allergy (Unknown, Verified 01/14/23 16:15) Rash rosuvastatin [Crestor] Allergy (Unknown, Verified 01/14/23 16:15) myalgia Medication List - Last Reconciled 02/06/23 by Debora Murrieta NP aspirin 81 mg PO DAILY atorvastatin 80 mg PO BEDTIME carvedilol 25 mg PO BID docusate sodium 100 mg PO BID ferrous sulfate (FeroSul) 325 mg PO DAILY fluticasone furoate-vilanterol 200-25 mcg/dose (Breo Ellipta) 1 inh inhalation DAILY fluticasone propionate 50 mcg/actuation 1 spray intranasal DAILY PRN furosemide 40 mg PO DAILY levofloxacin 500 mg PO DAILY losartan 50 mg PO DAILY yxlpcjds-vch-WH-lycopen-lutein 0.4 mg-300 mcg- 250 mcg (CertaVite Senior) tabs PO multivitamin 1 tab PO DAILY pantoprazole 40 mg PO DAILY@0630 potassium chloride ER 1 tab PO BID rivaroxaban (Xarelto) 20 mg PO DAILY sennosides (senna) 8.6 mg PO BEDTIME sucralfate mL PO tamsulosin 0.4 mg PO DAILY 90 days verapamil ER 180 mg PO DAILY HPI HPI Comments History of Present Illness Details 87-year-old male presents today for a follow-up per PCP. He reports he is still getting dizzy mostly with changing positions. Denies chest pain or changes in his breathing. He reports occasional swelling in his legs. he has been compliant with his medications. He reports he is drinking well - he normally drinks about 64 oz of water a day with no complications and he is sure to avoid salt. [facility] Medical History Pacemaker History of TIA (transient ischemic attack) (~2021) History of COVID-19 Tension headache Meningioma Hypertrophic cardiomyopathy Hearing loss Diastolic CHF, 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 Frequency of micturition Chronic abdominal pain Peripheral neuropathy Constipation Diverticulitis Polyarthralgia Primary osteoarthritis of right knee Urinary incontinence History of CVA (cerebrovascular accident) (~2018) Protrusion of lumbar intervertebral disc History of rib fracture Peripheral vascular disease GERD (gastroesophageal reflux disease) Obstructive sleep apnea BPH (benign prostatic hyperplasia) Anxiety and depression Paroxysmal atrial fibrillation COPD (chronic obstructive pulmonary disease) Obesity (BMI 30-39.9) Hypercholesterolemia Hypertension Anemia Current use of anticoagulant therapy Surgical History History of pacemaker History of colonoscopy History of total right hip replacement (~2016) History of transurethral resection of prostate History of tonsillectomy History of left knee replacement (~2007) Family History Father No problems noted. 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 Patient Tobacco Use Status: Never used Tobacco Years Smoked: 30 yrs ago Second Hand Smoke Exposure: No Advance Directives Date on File: 04/06/20 service: No Current occupational status: unemployed and retired Current occupation: Right Handed Physical Exam Vital Signs: Last Vital Signs Pulse 68 02/06/23 13:06 BP 142/58 H 02/06/23 13:06 BMI result Body Mass Index 37.7 Assessment & Plan Assessment & Plan (1) Dizziness: Code(s): R42 - Dizziness and giddiness (2) Hypertension, uncontrolled: Code(s): I10 - Essential (primary) hypertension (3) Pacemaker: Onset Date: ~2022 Comment: ([employer] DCPP - placed 03/2022) Code(s): Z95.0 - Presence of cardiac pacemaker (4) Diastolic CHF, acute on chronic: Code(s): I50.33 - Acute on chronic diastolic (congestive) heart failure Plan Not fluid overloaded on exam. No alerts noted on remote monitoring. Discussed changing positions slowly and logging his blood pressures and symptoms to bring in at his next visit. Report any new or worsening symptoms. ED care if needed or for any syncope. Follow-up as planned with Dr. Edwards. Coding Level of Care Code Est Pt Level 3 (83050) Diagnoses Dizziness R42 Hypertension, uncontrolled I10 Pacemaker Z95.0 Diastolic CHF, acute on chronic I50.33
[2023-02-06 13:29] VITALS: BP 112/64; PULSE 67
[2023-02-06 13:30] VITALS: BP 108/54; BP 112/60; PULSE 65; PULSE 73
== END 2023-02-06 13:41 | disposition home or self-care (01) ==
PROVIDERS: PCP Internal Medicine; Visit Provider Nurse Practitioner
DX: R42 Dizziness and giddiness (principal); I10 Essential (primary) hypertension; Z95.0 Presence of cardiac pacemaker; I50.33 Acute on chronic diastolic (congestive) heart failure
CPT/HCPCS: 99213

== ENCOUNTER → 2023-02-06 13:01 | Outpatient (BNVA) | payer OTHER, SELFPAY | PROVIDERS: Visit Provider Nurse Practitioner | DX: R42 Dizziness and giddiness (principal); I11.0 Hypertensive heart disease with heart failure; I50.33 Acute on chronic diastolic (congestive) heart failure; Z95.0 Presence of cardiac pacemaker | CPT/HCPCS: 99212 ==

== ENCOUNTER 2023-04-10 19:47 | Emergency (ER) | payer OTHER, SELFPAY ==
--- NOTE | ~2023-04-10 | XR_ITS ---
EXAMINATION: XR CHEST CLINICAL INFORMATION: Fever COMPARISON: Previous chest x-ray March 2022 TECHNIQUE: 2 views of the chest were obtained. FINDINGS: The cardiac silhouette is slightly enlarged but stable. Left subclavian dual chamber pacemaker that appears unchanged. The lungs are clear. No pleural effusion. Degenerative changes of the spine and right shoulder. XR/XR chest 2V IMPRESSION: No evidence for acute disease in the chest.
[2023-04-10 20:00] VITALS: BP 148/80; PULSE 82; O2SAT 98
[2023-04-10 20:02] VITALS: BP 174/63; PULSE 85; RESP 14; TEMP 37.3; O2SAT 95; BMI 38.4
--- NOTE | 2023-04-10 20:04 | ED.GENADULT ---
HPI - General Adult General Chief complaint: General Medical Stated complaint: Fever, headache x2days Time Seen by Provider: 04/10/23 19:51 Source: patient Mode of arrival: ambulatory Limitations: no limitations History of Present Illness HPI narrative: 87 yo male with PMH of TIAs, uncontrolled HTN, PPM for complete heart block, cardiomyopathy, afib on xarelto, dCHF, PVD, COPD, anxiety and depression, anemia vaccinated against COVID x 4 here with c/o just not feeling well today with c/o chills and not feeling well with body aches. He states he feels cold. This came on suddenly. No sick contacts is at home with his . MD complaint: viral like illness Onset (ago): day(s) (1) Location: lower extremity (GENERALIZED) Radiation: non-radiation Severity: mild Quality: aching Pain Consistency: constant Relieving factors: rest Exacerbating factors: movement Associated symptoms: fever/chills, headaches, loss of appetite, malaise and weakness Related Data Home Medications Medication Instructions Recorded Confirmed atorvastatin 80 mg tablet 80 mg PO BEDTIME 06/03/20 12/06/22 carvedilol 25 mg tablet 25 mg PO BID 12/04/20 12/06/22 potassium chloride 10 mEq 1 tab PO BID 11/14/21 12/06/22 tablet,extended release docusate sodium 100 mg capsule 100 mg PO BID 09/07/22 12/06/22 sennosides 8.6 mg tablet (senna) 8.6 mg PO BEDTIME 09/07/22 12/06/22 fluticasone furoate 200 1 inh inhalation DAILY 12/06/22 12/06/22 mcg-vilanterol 25 mcg/dose inhalation powder (Breo Ellipta) rivaroxaban 20 mg tablet (Xarelto) 20 mg PO DAILY 12/06/22 12/06/22 ferrous sulfate 325 mg (65 mg 325 mg PO DAILY 12/07/22 12/07/22 iron) tablet (FeroSul) fluticasone propionate 50 1 spray intranasal DAILY PRN 12/07/22 12/07/22 mcg/actuation nasal Allergy Symptoms spray,suspension losartan 50 mg tablet 50 mg PO DAILY 12/07/22 12/07/22 multivitamin 1 tab PO DAILY 12/07/22 12/07/22 suuygwvq-qyp-jiusj acid 0.4 tab PO 11/22/23 mg-lycopene 300 mcg-lutein 250 mcg tablet (CertaVite Senior) sucralfate 100 mg/mL oral ml PO 01/14/23 suspension verapamil 180 mg tablet,extended 180 mg PO DAILY 01/14/23 release Previous Rx's Medication Instructions Recorded tamsulosin 0.4 mg capsule 0.4 mg PO DAILY 90 days #90 caps 03/29/21 aspirin 81 mg capsule 81 mg PO DAILY #30 caps 01/31/22 furosemide 40 mg tablet 40 mg PO DAILY #30 tabs 12/05/22 levofloxacin 500 mg tablet 500 mg PO DAILY #8 tabs 12/07/22 pantoprazole 40 mg tablet,delayed 40 mg PO DAILY@0630 #30 tabs 02/27/23 release molnupiravir 200 mg capsule (EUA) 800 mg (4 x 200 mg) PO Q12H 5 days 04/10/23 #40 caps Allergies Allergy/AdvReac Type Severity Reaction Status Date / Time ezetimibe [From Zetia] Allergy Severe Anaphylaxis Verified 04/10/23 20:11 dabigatran etexilate Allergy Intermediate ITCHING Verified 04/10/23 20:11 [From PRADAXA] JORGE L Inhibitors Allergy Mild UNKNOWN, Verified 04/10/23 20:11 [Jorge L Inhibitors] FOUND IN MEDICAL RECORD 04/[address] GIPSON apixaban [From ELIQUIS] Allergy Unknown Rash Verified 04/10/23 20:11 rosuvastatin [Crestor] Allergy Unknown myalgia Verified 04/10/23 20:11 Review of Systems Review of Systems: Constitutional : No Fever, pos Chills, pos Fatigue ENT/Mouth : No sore throat, No Rhinorrhea Eyes: No Eye Pain, No Swelling, No Redness Cardiovascular : No Chest Pain, No SOB, No Dyspnea on Exertion Respiratory : No Cough, No Sputum Gastrointestinal : No Nausea, No Vomiting, No Diarrhea, No abdominal Pain Genitourinary : No Dysuria, No Urinary Frequency, No Hematuria, Musculoskeletal : No joint pain, pos Myalgias, No Joint Swelling Skin : No Skin Lesions, No rash Neuro : pos Weakness, No Numbness, No Dizziness, no Headache Psych : No Anxiety/Panic, No Depression All other systems reviewed and are negative PMFSH Past Medical History Attestation statement: The following information was validated with the patient. Source: old records reviewed Medical History Pacemaker History of TIA (transient ischemic attack) (~2021) History of COVID-19 Tension headache Meningioma Hypertrophic cardiomyopathy Hearing loss Diastolic CHF, 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 Frequency of micturition Chronic abdominal pain Peripheral neuropathy Constipation Diverticulitis Polyarthralgia Primary osteoarthritis of right knee Urinary incontinence History of CVA (cerebrovascular accident) (~2018) Protrusion of lumbar intervertebral disc History of rib fracture Peripheral vascular disease GERD (gastroesophageal reflux disease) Obstructive sleep apnea BPH (benign prostatic hyperplasia) Anxiety and depression Paroxysmal atrial fibrillation COPD (chronic obstructive pulmonary disease) Obesity (BMI 30-39.9) Hypercholesterolemia Hypertension Anemia Current use of anticoagulant therapy Surgical History History of pacemaker History of colonoscopy History of total right hip replacement (~2016) History of transurethral resection of prostate History of tonsillectomy History of left knee replacement (~2007) Family History Family History Father No problems noted. 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 Patient Tobacco Use Status: Never used Tobacco Years Smoked: 30 yrs ago Second Hand Smoke Exposure: No Advance Directives: Yes Advance Directives on File: Yes Advance Directives Date on File: 04/06/20 service: No Current occupational status: unemployed and retired Current occupation: Right Handed Physical Exam ED Vital Signs: Vital Signs - 24 hr 04/10/23 20:02 Temperature 99.2 F Pulse Rate 85 Respiratory Rate 14 Blood Pressure 174/63 H Pulse Oximetry 95 Oxygen Delivery Method Room Air BMI result Body Mass Index 38.4 Appearance: Alert. Oriented X3. No acute distress. Eyes: Pupils equal, round and reactive to light. ENT: Pharynx normal. Neck: Normal inspection. Neck supple. CVS: Normal heart rate and rhythm. Pulses normal. Respiratory: No respiratory distress. Breath sounds normal. Abdomen: Soft and nontender. Skin: Skin warm and dry. Normal skin color. Normal skin turgor. Extremities: No lower extremity edema. No calf ttp L anterior chen small bump but no overlying cellulitis Neuro: Oriented X 3. No motor deficit. No sensory deficit. Course Course Course Narrative: RME:?87 yo male here for eval of feeling generally unwell. Reports seeing his PCP for cyst to left chen yesterday. On the way home began to feel feverish with a headache. now feeling fatigued. denies cp, sob. dizziness, nv, dysuria, increased frequency, hematuria denies known sick contacts. labs, flu and covid swabs ordered. Full HPI, ROS and PE to be performed by the primary ED provider. Medical Decision Making Medical Decision Making [facility] Narrative: 87 yo male with PMH of TIAs, uncontrolled HTN, PPM for complete heart block, cardiomyopathy, afib on xarelto, dCHF, PVD, COPD, anxiety and depression, anemia vaccinated against COVID x 4 here with c/o viral like illness starting today with body aches not feeling well and malaise at this time labs, CXR and VS done he has no hypoxia symptoms just started today he is positive for COVID now. He is vaccinated after disbussion and review of mediactions will start molnupiravir given he is on xarelto and I cannot stop it for paxlovid he is aware and agrees. He will be given precautions to return and has a pulse ox at home. Differential Diagnosis Differential Diagnoses: The differential diagnosis associated with the presentation includes viral syndrome, weakness, pneumonia Admission/Observation Consideration of admission/observation: Escalation of care including admission/observation considered no covid pneumonia, no hypoxia, tolerating PO Lab Data [facility] Lab Attestation statement: I reviewed the patient's lab results. 04/10/23 20:43 04/10/23 20:43 Labs: Lab Results 04/10/23 Range/Units 20:43 WBC 11.8 H (4.8-10.8) X10*3/uL RBC 3.92 L (4.60-5.80) X10*6/uL Hgb 10.6 L (14.0-18.0) g/dl Hct 34.2 L (42.0-52.0) % MCV 87.2 (80.0-98.0) fL MCH 27.0 (27.0-33.0) pg MCHC 31.0 (31.0-36.0) g/dl RDW 15.1 (11.0-16.0) % Plt Count 228 (160-400) X10*3/uL MPV 9.5 (9.4-12.4) fL Immature Gran % (Auto) 0.3 (0.0-0.4) % Neut % (Auto) 80.7 H (45-73) % Lymph % (Auto) 11.1 L (20-40) % [place] % (Auto) 6.8 (2-11) % Eos % (Auto) 0.8 (0-4) % Baso % (Auto) 0.3 (0-2) % Lymph # (Auto) 1.3 (1.2-4.9) X10*3/uL [place] # (Auto) 0.8 (0.1-1.2) X10*3/uL Eos # (Auto) 0.1 (0.0-0.4) X10*3/uL Baso # (Auto) 0.0 (0.0-0.2) X10*3/uL Abs Immat Gran (auto) 0.04 H (0.00-0.03) X10*3/uL Absolute Neuts (auto) 9.5 H (2.0-8.3) x10*3/uL Absolute Nucleated RBC 0.000 (0.0-0.012) X10*3/uL Nucleated RBC % (auto) 0.0 (0.0-0.2) /100WBC Sodium 146 H (135-145) mmol/L Potassium 4.1 (3.3-5.1) mmol/L Chloride 111 H (96-108) mmol/L Carbon Dioxide 27 (22-29) mmol/L Anion Gap 12 (12-20) BUN 15 (9-16) mg/dL Creatinine 1.04 (0.5-1.4) mg/dL Estim Creat Clear Calc 51.1 Estimated GFR > 60 Random Glucose 99 (60-115) mg/dL Calcium 9.2 (8.4-10.2) mg/dL Magnesium 1.8 (1.6-2.6) mg/dL COVID-19 (FERMIN) Positive A (Negative) COVID-19 Clin Com See Note Influenza Type A (AMARA) Negative (Negative) Influenza Type B (AMARA) Negative (Negative) Influenza A & B Note See Note Independent Interpretation I performed an independent interpretation of an: Plain X-Ray (no pneumonia) Radiology Impression Discussion of test interpretation with radiology: I have reviewed the radiologist's reading. Independent Historian Clinical information obtained from an independent historian. History obtained from or confirmed by: EMS External Record Review External record reviewed: Inpatient record Prescription Management I considered prescription management with: Antiviral Discharge Plan Discharge Clinical Impression: COVID-19 Patient Disposition: Home, Self-Care Instructions: COVID-19 (Coronavirus Disease 2019) (ED) Additional Instructions: return for worsening symptoms, chest pains, inability to breathe O2 sats below 92%, confusion, inability to eat or drink or any other concerns. start the medication prescribed in the next 24 hours. Regrese si los s?ntomas empeoran, bozena en el pecho, incapacidad para respirar niveles de ox?jacqui por debajo del 92%, confusi?n, incapacidad para comer o beber o cualquier otra inquietud. iniciar la medicaci?n prescrita en las pr?ximas 24 horas. Prescriptions: New molnupiravir 200 mg capsule 800 mg PO Q12H 5 Days Qty: 40 0RF No Action tamsulosin 0.4 mg capsule 0.4 mg PO DAILY 90 Days Qty: 90 3RF furosemide 40 mg tablet 40 mg PO DAILY Qty: 30 5RF pantoprazole 40 mg tablet,delayed release (DR/EC) 40 mg PO DAILY@0630 Qty: 30 3RF atorvastatin 80 mg tablet 80 mg PO BEDTIME potassium chloride 10 mEq tablet extended release 1 tab PO BID aspirin 81 mg capsule 81 mg PO DAILY Qty: 30 0RF Xarelto 20 mg tablet 20 mg PO DAILY fluticasone furoate-vilanterol [Breo Ellipta] 200-25 mcg/dose Blister With Device 1 inh INHALATION DAILY multivitamin Tablet 1 tab PO DAILY losartan 50 mg tablet 50 mg PO DAILY ferrous sulfate [FeroSul] 325 mg (65 mg iron) tablet 325 mg PO DAILY fluticasone propionate 50 mcg/actuation spray,suspension 1 spray intranasal DAILY PRN (Reason: Allergy Symptoms) levofloxacin 500 mg tablet 500 mg PO DAILY Qty: 8 0RF docusate sodium 100 mg capsule 100 mg PO BID sennosides [senna] 8.6 mg tablet 8.6 mg PO BEDTIME carvedilol 25 mg tablet 25 mg PO BID CertaVite Senior 0.4 mg-300 mcg- 250 mcg tablet PO verapamil 180 mg tablet extended release 180 mg PO DAILY sucralfate 100 mg/mL suspension PO Print Language: Croatian
[2023-04-10 20:49] LABS: MANUAL DIFF FLAG NO
[2023-04-10 20:51] LABS: Basophils Percent Auto 0.3 % (0-2); Eosinophils Absolute Auto 0.1 X10*3/uL (0.0-0.4); Eosinophils Percent Auto 0.8 % (0-4); Hematocrit 34.2 % (42.0-52.0); Hemoglobin 10.6 g/dl (14.0-18.0); Imm Gran Abs Auto 0.04 X10*3/uL (0.00-0.03); Imm Gran Pct Auto 0.3 % (0.0-0.4); Lymphocytes Absolute Auto 1.3 X10*3/uL (1.2-4.9); Lymphocytes Percent Auto 11.1 % (20-40); Mean Corpuscular Volume 87.2 fL (80.0-98.0); Mean Platelet Volume 9.5 fL (9.4-12.4); Monocytes Absolute Auto 0.8 X10*3/uL (0.1-1.2); Monocytes Percent Auto 6.8 % (2-11); Neutrophils Absolute Auto 9.5 x10*3/uL (2.0-8.3); Neutrophils Percent Auto 80.7 % (45-73); Platelet Count 228 X10*3/uL (160-400); Red Blood Count 3.92 X10*6/uL (4.60-5.80); Red Cell Distribution Width 15.1 % (11.0-16.0); White Blood Count 11.8 X10*3/uL (4.8-10.8)
[2023-04-10 21:01] LABS: COVID-19 Test Positive (Negative); IDNOW Serial# 152EDE1D
[2023-04-10 21:04] LABS: IDNOW Serial# 08D9AD1C; Influenza A Negative (Negative); Influenza B2 Negative (Negative)
[2023-04-10 21:05] LABS: Anion Gap 12 (12-20); Blood Urea Nitrogen 15 mg/dL (9-16); Calcium 9.2 mg/dL (8.4-10.2); Carbon Dioxide 27 mmol/L (22-29); Chloride 111 mmol/L (96-108); Creatinine Clr Calc Pharmacy 51.1; Estimated Glomerular Filt Rate > 60; Glucose Random 99 mg/dL (60-115); Magnesium 1.8 mg/dL (1.6-2.6); Potassium 4.1 mmol/L (3.3-5.1); Sodium 146 mmol/L (135-145)
[2023-04-10 22:00] VITALS: BP 208/78; PULSE 100; RESP 20; TEMP 36.7; O2SAT 96
[2023-04-10] MEDS: Acetaminophen 325 MG TABLET 650 MG PO (22:05)
[2023-04-10 22:35] LABS: Appearance Urine Clear; Color Urine Yellow; Glucose Urine UA Negative (Negative); Leukocyte Esterase Urine Negative (Negative); Nitrite Urine Negative (Negative); PH 5.5 (5.0-9.0); Urine Blood Negative (Negative); Urine Ketones Negative (Negative); Urine Protein Negative (Neg-Trace)
--- NOTE | 2023-04-10 22:43 | PC.NURSE ---
pt presents to dept via EMS s/p MD appt, cc: not feeling well viral swabs obtained, pt found to be covid (+) pt had CXR, which was (-) ve for PNA. APAP given for 2/10 headache pain. pt is afebrile at this time.
--- NOTE | 2023-04-10 22:45 | PC.NURSE ---
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 Per MD Hurley pt does not require admission as his vitals are stable and pt does not have covid PNA. Pt arrived to dept via EMS, and will need transport back home. pt remains on vehicle monitor technician, call [facility] within reach
--- NOTE | 2023-04-10 22:48 | PC.NURSE ---
MD Hurley back at bedside with pt, pt is not a candidate for paxlovid as it is contraindicated in pts taking xarelto. Pt to be started on molnupiravir. ED US booking eduardo THOMPSON back home
== END 2023-04-10 23:59 | disposition home or self-care (01) ==
PROVIDERS: Physician Assistant Medical; Emergency Provider Emergency Medicine
DX: U07.1 COVID-19 (principal); R50.9 Fever, unspecified; R51.9 Headache, unspecified; Z79.899 Other long term (current) drug therapy
CPT/HCPCS: 71046; 80048; 81003; 83735; 85025; 87502; 87635; 99283; 99284

== ENCOUNTER 2023-05-15 13:25 | Outpatient (AMB) | payer OTHER, SELFPAY ==
--- NOTE | 2023-05-15 13:52 | A.OFFVIS_ITS ---
Intake Vital Signs 3 05/15/23 14:05 Height 4 ft 11 in Weight 205 lb BMI 41.4 BP 139/62 Blood Pressure Location Lt brachial Position Sitting Pulse 62 Intake Visit Reasons: Follow up 4 months Intake Note: Patient follow up for abdominal pain Patient cc: Abdominal pain with bloating, acid reflex with burning sensation, and swallowing problems with liquid and solid. Senior Process Analyst Required: No Accompanied by: Family/Other Allergies ezetimibe [From Zetia] Allergy (Severe, Verified 05/15/23 13:51) Anaphylaxis dabigatran etexilate [From PRADAXA] Allergy (Intermediate, Verified 05/15/23 13:51) ITCHING JORGE L Inhibitors [Jorge L Inhibitors] Allergy (Mild, Verified 05/15/23 13:51) UNKNOWN, FOUND IN MEDICAL RECORD 04/[address] GIPSON apixaban [From ELIQUIS] Allergy (Unknown, Verified 05/15/23 13:51) Rash rosuvastatin [Crestor] Allergy (Unknown, Verified 05/15/23 13:51) myalgia HPI Follow up 4 months 2 HPI0 Details LAST VISIT Abdominal pain Diverticulitis GERD (gastroesophageal reflux disease) Constipation Plan Continue pantoprazole in the morning half an hour before breakfast. Avoid dietary triggers. Patient was encouraged to take Colace twice a day and Senokot in the evening. Patient reports that he is moving his bowels well. Continues to decline going for colonoscopy. Patient states that he does have a pacemaker placed in he does not feel like he wants to go for colonoscopy. Patient will return in the office in 4 months, sooner on as needed basis. Patient is agreeable to this plan and verbalizes understanding of instructions. He was given the opportunity to ask questions and all questions answered. ? * TODAY'S VISIT: Patient is here today for follow-up. Patient is accompanied by his BUSINESS EDITOR. Patient reports that he is taking pantoprazole in the morning and he is feeling better, however he continues to have occasional acid reflux. Patient reports that he is avoiding certain foods. However he does not cook his own meals, Meals on wheels or meals cooked by his at home. Patient reports that sometimes he feels like he can swallow very well and feels like the reflux is coming up. Pantoprazole helps but he no longer has anymore sucralfate left at home and he would like to started up again. Patient denies any nausea or vomiting. Reports that he is moving his bowels better now that he is taking Senokot. No episode of diverticulitis since December of last year. Patient also is taking Colace. Denies melena, hematochezia, unintentional weight loss or ribbon like stools. Patient reports occasional dyspepsia with dysphagia without odynophagia. Patient was diagnosed with COVID last month. Denies any respiratory or cardiac symptoms at this time. Patient has left lower extremity ulcer that weeps at night. Patient reports that he had surgery done for this few months ago, however reports that it is healing slowly. Patient does not want to go back to see the surgeon [facility] Medical History (Updated 05/15/23 @ 19:48 by Rashmi Bhardwaj, [facility]) Stasis leg ulcer Pacemaker History of TIA (transient ischemic attack) (~2021) History of COVID-19 Tension headache Meningioma Hypertrophic cardiomyopathy Hearing loss Diastolic CHF, 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 Frequency of micturition Chronic abdominal pain Peripheral neuropathy Constipation Diverticulitis Polyarthralgia Primary osteoarthritis of right knee Urinary incontinence History of CVA (cerebrovascular accident) (~2018) Protrusion of lumbar intervertebral disc History of rib fracture Peripheral vascular disease GERD (gastroesophageal reflux disease) Obstructive sleep apnea BPH (benign prostatic hyperplasia) Anxiety and depression Paroxysmal atrial fibrillation COPD (chronic obstructive pulmonary disease) Obesity (BMI 30-39.9) Hypercholesterolemia Hypertension Anemia Current use of anticoagulant therapy Surgical History History of pacemaker History of colonoscopy History of total right hip replacement (~2016) History of transurethral resection of prostate History of tonsillectomy History of left knee replacement (~2007) Family History Father No problems noted. 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: odinter Patient Tobacco Use Status: Never used Tobacco Years Smoked: 30 yrs ago Second Hand Smoke Exposure: No Advance Directives Date on File: 04/06/20 service: No Current occupational status: unemployed and retired Current occupation: Right Handed Review of Systems Const Denies weight gain and Denies weight loss ENT Reports no additional complaints, Reports dysphagia and Denies odynophagia Card Reports no additional complaints Resp Reports no additional complaints GI Denies abdominal pain, Denies belching, Denies melena, Denies bloating, Denies change in bowel habits, Reports dysphagia, Denies excessive flatus, Denies dyspepsia, Reports heartburn (Occasional), Denies diarrhea, Denies loose stools, Denies nausea, Denies odynophagia and Denies vomiting Reports no additional complaints Musc Reports no additional complaints Neuro Reports no additional complaints Psych Reports no additional complaints Endo Reports no additional complaints Physical Exam Vital Signs: Last Vital Signs Pulse 62 05/15/23 14:05 BP 139/62 05/15/23 14:05 BMI result Body Mass Index 41.4 Const General: no acute distress Nutritional Appearance: obese Orientation/consciousness: patient oriented x3 Resp Effort & Inspection: normal respiratory effort, able to speak in complete sentences, no tracheal deviation and symmetric chest movement Auscultation: clear to auscultation bilaterally Cardio Rate: regular rate GI Inspection: Yes normal to inspection, Yes obesity and Yes other (Large) Palpation (GI): Soft to palpation, not firm and nontender Auscultation: normal bowel sounds General: Yes no CVA tenderness Back/Spine/Pelvis Back: no CVA tenderness Skin General skin exam: elasticity normal, turgor normal and dry skin Neuro General: patient oriented x3 Extrem Upper/lower leg/hip images: 2 1. 5 x 3 wound with 3 x 5 mm weeping areas Psych Appearance: grossly normal Mental Status: mental status grossly normal Assessment & Plan Assessment & Plan (1) Stasis leg ulcer: Code(s): I83.009 - Varicose veins of unspecified lower extremity with ulcer of unspecified site; L97.909 - Non-pressure chronic ulcer of unspecified part of unspecified lower leg with unspecified severity Qualifiers: Laterality: left Qualified Code(s): I83.029 - Varicose veins of left lower extremity with ulcer of unspecified site; L97.929 - Non-pressure chronic ulcer of unspecified part of left lower leg with unspecified severity (2) Abdominal pain: Code(s): R10.9 - Unspecified abdominal pain Qualifiers: Abdominal location: left lower quadrant Qualified Code(s): R10.32 - Left lower quadrant pain (3) Diverticulitis: Code(s): K57.92 - Diverticulitis of intestine, part unspecified, without perforation or abscess without bleeding (4) GERD (gastroesophageal reflux disease): Code(s): K21.9 - Gastro-esophageal reflux disease without esophagitis Qualifiers: Esophagitis presence: esophagitis presence not specified Qualified Code(s): K21.9 - Gastro-esophageal reflux disease without esophagitis (5) Constipation: Code(s): K59.00 - Constipation, unspecified Qualifiers: Constipation type: slow transit constipation Qualified Code(s): K59.01 - Slow transit constipation Plan Referral send to wound care center to help him heal his left lower extremity ulcer/Wound quicker. Patient reports that he is not diabetic. Will check A1c. Patient continues to have occasional dyspepsia. Now he reports to have trouble swallowing at times. Will send him for upper GI with barium swallow. Patient reports that his symptoms are in lower esophagus. Will add sucralfate to treatment. Patient states that he ran out couple months ago. Discussed with patient avoiding dietary triggers and late night snacking. Eating smaller meals and more often. Avoiding food high in salt. I will see him in 3 months, sooner on as needed basis. Patient is agreeable to this plan and verbalizes understanding of instructions. He was given the opportunity to ask questions all questions answered. Thank you for allowing me to participate in his care Orders: Orders 2 Hemoglobin A1c Today E11.9 - Type 2 diabetes mellitus without complications FL upper GI w Ba Swallow Today R13.10 - Dysphagia, unspecified Referrals 2 Wound Care Referral I83.009 - Varicose veins of unspecified lower extremity with ulcer of unspecified site, L97.909 - Non-pressure chronic ulcer of unspecified part of unspecified lower leg with unspecified severity Medications: New 2 sucralfate 10 mL PO BEDTIME 400 mL 3RF K21.9 - Gastro-esophageal reflux disease without esophagitis Coding Level of Care Code Est Pt Level 3 (21376) Diagnoses Venous stasis ulcer of left lower extremity I83.029; L97.929 Laterality: left Left lower quadrant abdominal pain R10.32 Abdominal location: left lower quadrant Diverticulitis K57.92 Gastroesophageal reflux disease, unspecified whether esophagitis present K21.9 Esophagitis presence: esophagitis presence not specified Slow transit constipation K59.01 Constipation type: slow transit constipation Time Spent (min) 30 Comment 20 minutes spent with patient and additional 10 minutes spent reviewing his records
[2023-05-15 14:05] VITALS: BP 139/62; PULSE 62; BMI 41.4
== END 2023-05-15 14:39 | disposition home or self-care (01) ==
PROVIDERS: PCP Internal Medicine; Visit Provider Nurse Practitioner Family
DX: I83.029 Varicose veins of left lower extremity with ulcer of unspecified site (principal); L97.929 Non-pressure chronic ulcer of unspecified part of left lower leg with unspecified severity; R10.32 Left lower quadrant pain; K57.92 Diverticulitis of intestine, part unspecified, without perforation or abscess without bleeding; K21.9 Gastro-esophageal reflux disease without esophagitis; K59.01 Slow transit constipation
CPT/HCPCS: 99213

== ENCOUNTER → 2023-05-15 13:25 | Outpatient (BNVA) | payer OTHER, SELFPAY | PROVIDERS: PCP Internal Medicine; Visit Provider Nurse Practitioner Family | DX: K21.9 Gastro-esophageal reflux disease without esophagitis (principal); I83.028 Varicose veins of left lower extremity with ulcer other part of lower leg; L97.929 Non-pressure chronic ulcer of unspecified part of left lower leg with unspecified severity; R10.32 Left lower quadrant pain; K57.92 Diverticulitis of intestine, part unspecified, without perforation or abscess without bleeding; K59.01 Slow transit constipation | CPT/HCPCS: 99212 ==

== ENCOUNTER 2023-06-15 12:22 | Outpatient (RCR) | payer OTHER, SELFPAY | END 2023-06-15 15:00 | disposition home or self-care (01) | LOC: HO.WCC 12:22 | PROVIDERS: PCP Internal Medicine; Visit Provider Surgery | DX: Z09 Encounter for follow-up examination after completed treatment for conditions other than malignant neoplasm (principal); I11.0 Hypertensive heart disease with heart failure; I50.9 Heart failure, unspecified; I73.9 Peripheral vascular disease, unspecified; G62.9 Polyneuropathy, unspecified; Z87.891 Personal history of nicotine dependence; Z79.01 Long term (current) use of anticoagulants; Z86.73 Personal history of transient ischemic attack (TIA), and cerebral infarction without residual deficits; Z87.2 Personal history of diseases of the skin and subcutaneous tissue | CPT/HCPCS: 99212 ==

== ENCOUNTER 2023-07-15 08:18 | Outpatient (REF) | payer OTHER, SELFPAY ==
--- NOTE | ~2023-07-15 | FL_ITS ---
EXAMINATION: XR FLUOROSCOPY UPPER GI WITH AIR CLINICAL INFORMATION: Dysphagia COMPARISON: None TECHNIQUE: Fluoroscopic air contrast upper GI examination was performed utilizing standard techniques with thin and thick barium and effervescent granules. Numerous spot images were obtained. FINDINGS: Lateral cine images of the oropharynx and hypopharynx demonstrate normal swallow mechanism with normal epiglottic inversion and soft palate elevation. There is excessive pooling of contrast in the vallecula and pyriform sinuses. There is trace laryngeal penetration with thick barium. No tracheal penetration, glottic or subglottic aspiration identified. No nasopharyngeal reflux present. Hypopharyngeal structures appear normal without evidence of mass or diverticulum. There is mild cricopharyngeal achalasia present. A pacemaker is present in the left chest wall. Dual and single contrast images of the esophagus demonstrate normal caliber, contour, and mucosal pattern. No evidence of stricture, mass, or ulcerations identified. Esophageal peristalsis is mildly disorganized. A small type I hiatal hernia is present. Gastroesophageal reflux is seen up to the thoracic inlet. Dual contrast and single contrast images of the stomach demonstrated a normal contour. The gastric rugal folds have a mildly thickened appearance. There is no evidence of mass, ulceration, or other abnormality. Contrast freely passed into the gastric antrum and duodenal bulb without delay. Single and air-contrast images of the duodenal bulb demonstrate no abnormality. The duodenal sweep has a normal appearance, course, and mucosal fold appearance. No malrotation. The imaged proximal jejunum has a normal fold pattern and caliber. FLUOROSCOPY TIME: 4 minutes 39 seconds Number of Spot Images: 13 Number of Cine: 14 DOSE AREA PRODUCT: 3602 uGy-m2 (microgray-meter squared) FL/FL upper GI w Ba Swallow IMPRESSION: 1. Mild laryngeal penetration with thick barium to the level of the laryngeal ventricle. No subglottic aspiration identified. 2. Mild cricopharyngeal achalasia. 3. Small type I hiatal hernia. 4. Moderate gastroesophageal reflux. 5. Mildly thickened gastric rugal folds that likely suggests gastritis. 6. Status post pacemaker. This procedure was performed by Ned Alexander PA-C, and supervised by Dr. Murrieta
== END 2023-07-15 08:19 | disposition home or self-care (01) ==
LOC: HO.XRAY 08:18
PROVIDERS: PCP Internal Medicine; Visit Provider Nurse Practitioner Family
DX: R13.10 Dysphagia, unspecified (principal)
CPT/HCPCS: 74240

== ENCOUNTER → 2023-07-15 08:19 | Outpatient (BNV) | payer OTHER, SELFPAY | PROVIDERS: PCP Internal Medicine; Visit Provider Physician Assistant Surgical | DX: R13.10 Dysphagia, unspecified (principal) | CPT/HCPCS: 74246 ==

== ENCOUNTER 2023-07-27 13:11 | Outpatient (REF) | payer OTHER, SELFPAY ==
--- NOTE | ~2023-07-27 | US_ITS ---
EXAMINATION: Noninvasive assessment of the arteries of both lower extremities to include a single level PVR exam and ANKLE BRACHIAL INDICES (ABIs). CLINICAL INFORMATION: Decreased pedal pulses TECHNIQUE: The ankle/brachial indices of the distal posterior tibial and the dorsalis pedis arteries were obtained of the lower extremity arterial system bilaterally; along with pressures and pulse volume recordings at the ankle level. The study was performed at rest. COMPARISON: None FINDINGS: 1. ANKLE-BRACHIAL INDICES: RIGHT: 0.61 LEFT: 1.04 2. ANKLE PVR WAVEFORMS: RIGHT: Moderately dampened LEFT: Minimally dampened US/US TERRI complete IMPRESSION: Right leg: Moderately decreased ankle brachial index and PVR waveform Left leg: Normal ankle brachial index with minimally dampened PVR waveform
--- NOTE | ~2023-07-27 | US_ITS ---
EXAMINATION: US EXTRACRANIAL CAROTID DUPLEX, BILATERAL CLINICAL INFORMATION: Ocular ischemia syndrome. COMPARISON: Carotid ultrasound 01/30/2022 TECHNIQUE: Real-time ultrasound and Doppler techniques (integrating B-mode 2-D vascular images, Doppler spectral analysis and color-flow Doppler imaging) were utilized to interrogate the extracranial carotid arteries, the vertebral arteries and proximal subclavian arteries bilaterally. The degree of stenosis is determined by criteria similar to NASCET. FINDINGS: Right Side: 1. There is mild atherosclerotic plaque seen in the bifurcation/proximal ICA region. 2. The common carotid artery PSV proximally is 56 cm/s and distally 51 cm/s. 3. The proximal internal carotid artery velocities are 87 cm/s systolic and 17 cm/s diastolic. 4. The proximal external carotid artery PSV is 101 cm/s. 5. The vertebral artery shows antegrade flow. 6. The subclavian artery waveforms are normal. Left Side: 1. There is mild atherosclerotic plaque seen in the bifurcation/proximal ICA region. 2. The common carotid artery PSV proximally is 73 cm/s and distally 58 cm/s. 3. The proximal internal carotid artery velocities are 64 cm/s systolic and 12 cm/s diastolic. 4. The proximal external carotid artery PSV is 96 cm/s. 5. The vertebral artery shows antegrade flow. 6. The subclavian artery waveforms are normal. US/US carotid duplex BI IMPRESSION: 1. RIGHT: Minimal, non-hemodynamically significant stenosis of the proximal right internal carotid artery corresponding to a 0-49% stenosis by velocity criteria. 2. LEFT: Minimal, non-hemodynamically significant stenosis of the proximal left internal carotid artery corresponding to a 0-49% stenosis by velocity criteria. 3. There is no change in the category severity of disease when compared to the previous study dated 01/30/2022..
== END 2023-07-27 13:12 | disposition home or self-care (01) ==
LOC: HO.US 13:11
PROVIDERS: PCP Internal Medicine; Visit Provider Registered Nurse
DX: H35.82 Retinal ischemia (principal); R60.0 Localized edema; R09.89 Other specified symptoms and signs involving the circulatory and respiratory systems
CPT/HCPCS: 93880; 93923

== ENCOUNTER 2023-07-28 05:22 | Emergency (ER) | payer OTHER, SELFPAY ==
--- NOTE | 2023-07-28 | ECG_ITS ---
Test Reason : ABD PAIN Blood Pressure : / mmHG Vent. Rate : 079 BPM Atrial Rate : 079 BPM P-R Int : 234 ms QRS Dur : 106 ms QT Int : 392 ms P-R-T Axes : 091 -26 125 degrees QTc Int : 449 ms Atrial-sensed ventricular-paced rhythm with prolonged AV conduction Abnormal ECG When compared with ECG of 04-FEB-2023 03:06, Vent. rate has increased BY 12 BPM Referred By: Generic ED Physician Electronically Signed By:DEON DALAL MD
--- NOTE | ~2023-07-28 | CT_ITS ---
EXAMINATION: CT ABDOMEN AND PELVIS WITHOUT CONTRAST CLINICAL INFORMATION: Left flank pain COMPARISON: CT abdomen from 01/16/2023 TECHNIQUE: Multidetector volumetric imaging was performed from the superior aspect of the liver through the pubic symphysis. Sagittal and coronal reformatted images were obtained on the technologist's workstation. This CT examination was performed using dose optimization techniques as appropriate, variously including the following: *Automated exposure control *Adjustment of mA and/or kV according to patient size (this includes techniques or standardized protocols for targeted exams where dose is matched to indication/reason for exam; i.e. extremities or head) *Use of iterative reconstruction technique DLP: 735 mGy-cm FINDINGS: LUNG BASES: Emphysematous changes. Bibasilar atelectasis versus scarring. No pneumothorax. No large pleural effusion. Partially visualized pacer wires. Slight elevation the right hemidiaphragm. LIVER, GALLBLADDER, AND BILIARY TREE: The liver is normal in size, shape, and attenuation. No focal hepatic lesion or biliary ductal dilatation is present. The gallbladder is unremarkable with no evidence of radiopaque gallstones, gallbladder wall thickening, or obvious pericholecystic inflammatory changes. PANCREAS: Unremarkable. SPLEEN: Unremarkable. ADRENAL GLANDS: Unremarkable. KIDNEYS AND URETERS: The kidneys are normal in size, shape, and attenuation. No hydronephrosis, hydroureter, or calculi seen. No perinephric stranding. BLADDER: Unremarkable. GASTROINTESTINAL TRACT: Colonic diverticulosis with slight wall thickening and pericolonic inflammatory changes greatest at the descending colon/sigmoid colon suggesting diverticulitis. The small and large bowel are unremarkable. The appendix is not definitively visualized. ABDOMINAL WALL: Fat filled umbilical hernia. MESENTERY: Persistent slight haziness throughout the mesentery, nonspecific. LYMPH NODES: No enlarged lymph nodes per size criteria. VASCULAR: Abdominal aorta is nonaneurysmal. Atherosclerotic calcifications abdominal aorta and its branches. PELVIC VISCERA: Prostate measures 2.5 cm. OSSEOUS STRUCTURES: Right hip arthroplasty with streak artifact, grossly intact. Osteopenia. Grade 1 anterolisthesis of L5 on S1. Multilevel degenerative changes of the thoracolumbar and lumbosacral spine. CT/CT abdomen pelvis wo IV con IMPRESSION: 1. Colonic diverticulosis with slight wall thickening and pericolonic inflammatory changes greatest at the descending colon/sigmoid colon suggesting diverticulitis. 2. Persistent slight haziness throughout the mesentery, nonspecific. 3. Osteopenia. Grade 1 anterolisthesis of L5 on S1.
[2023-07-28 05:33] VITALS: BP 180/90; BP 187/78; PULSE 81; PULSE 84; RESP 14; TEMP 37.1; O2SAT 94; O2SAT 98; BMI 36.7
[2023-07-28 05:49] LABS: Basophils Absolute Auto 0.1 X10*3/uL (0.0-0.2); Basophils Percent Auto 0.5 % (0-2); Eosinophils Absolute Auto 0.3 X10*3/uL (0.0-0.4); Eosinophils Percent Auto 3.1 % (0-4); Hematocrit 33.4 % (42.0-52.0); Hemoglobin 10.7 g/dl (14.0-18.0); Imm Gran Abs Auto 0.03 X10*3/uL (0.00-0.03); Imm Gran Pct Auto 0.3 % (0.0-0.4); Lymphocytes Absolute Auto 2.1 X10*3/uL (1.2-4.9); Lymphocytes Percent Auto 21.9 % (20-40); Mean Corpuscular Hemoglobin 27.3 pg (27.0-33.0); Mean Corpuscular Volume 85.2 fL (80.0-98.0); Mean Platelet Volume 9.4 fL (9.4-12.4); Monocytes Absolute Auto 0.8 X10*3/uL (0.1-1.2); Monocytes Percent Auto 7.9 % (2-11); Neutrophils Absolute Auto 6.3 x10*3/uL (2.0-8.3); Neutrophils Percent Auto 66.3 % (45-73); Platelet Count 229 X10*3/uL (160-400); Red Blood Count 3.92 X10*6/uL (4.60-5.80); Red Cell Distribution Width 15.4 % (11.0-16.0); White Blood Count 9.5 X10*3/uL (4.8-10.8)
--- NOTE | 2023-07-28 05:49 | PC.NURSE ---
medical interpreter at bedside. pt biba from home, a&ox4, respirations even and unlabored. pt reporting onset of left sided upper quadrant pain x3 days, denies n/v/d. pt reports normal bowel movements and denies blood. pt denies urinary symptoms and chest pain. 20G placed in left wrist, labs obtained and sent.
[2023-07-28 05:50] LABS: MANUAL DIFF FLAG NO
--- NOTE | 2023-07-28 05:57 | PC.NURSE ---
pt a-paced on tele at this time, normal sinus 70-75bpm.
[2023-07-28 06:08] LABS: Alanine Aminotransferase 15 U/L (0-40); Albumin Level 3.4 g/dL (3.5-5.0); Alkaline Phosphatase 59 U/L (39-117); Anion Gap 14 (12-20); Aspartate Amino Transferase 30 U/L (5-37); Bilirubin Total 0.3 mg/dL (0.0-1.0); Blood Urea Nitrogen 16 mg/dL (9-16); Calcium 9.3 mg/dL (8.4-10.2); Carbon Dioxide 24 mmol/L (22-29); Chloride 111 mmol/L (96-108); Creatinine Clr Calc Pharmacy 57.6; Estimated Glomerular Filt Rate > 60; Glucose Random 99 mg/dL (60-115); Potassium 3.8 mmol/L (3.3-5.1); Sodium 145 mmol/L (135-145); Total Protein 6.4 g/dL (6.5-8.0)
--- NOTE | 2023-07-28 07:03 | ED.ABDPAIN ---
HPI - Abdominal Pain General Chief Complaint: Abdominal Pain Stated Complaint: abdominal pain Time Seen by Provider: 07/28/23 07:01 Source: patient, EMS and old records reviewed Mode of arrival: EMS Limitations: no limitations History of Present Illness ED Provider: SYLVESTER GARNER narrative: 87 yo male with PMH of CHF, PAF on xarelto, complete heart block s/p PPM, TIAs, HTN, diverticulitis, abdominal pain, HLD, BPH, anemia, anxiety and depression who c/o 3 days L flank pain but no associated fevers n/v/d and no urinary symptoms. He notes he is having normal non bloody BMs. He did feel better yesterday but the pain came back today. It feels different from his diverticulitis. MD elicited complaint: abdominal pain Pertinent past history: diverticulitis Onset (ago): day(s) (3) Pain Consistency: intermittent Location: L flank Severity: moderate Quality: aching Radiation: none Migration to: no migration Exacerbating factors: nothing Relieving factors: nothing Associated symptoms: denies other symptoms Related Data Home Medications ?Medication ?Instructions ?Recorded ?Confirmed atorvastatin 80 mg tablet 80 mg PO BEDTIME 06/03/20 12/06/22 carvedilol 25 mg tablet 25 mg PO BID 12/04/20 12/06/22 potassium chloride 10 mEq 1 tab PO BID 11/14/21 12/06/22 tablet,extended release fluticasone furoate 200 1 inh inhalation DAILY 12/06/22 12/06/22 mcg-vilanterol 25 mcg/dose inhalation powder (Breo Ellipta) ferrous sulfate 325 mg (65 mg 325 mg PO DAILY 12/07/22 12/07/22 iron) tablet (FeroSul) fluticasone propionate 50 1 spray intranasal DAILY PRN 12/07/22 12/07/22 mcg/actuation nasal Allergy Symptoms spray,suspension losartan 50 mg tablet 50 mg PO DAILY 12/07/22 12/07/22 multivitamin 1 tab PO DAILY 12/07/22 12/07/22 [id number] acid 0.4 tab PO 01/14/23 mg-lycopene 300 mcg-lutein 250 mcg tablet (CertaVite Senior) sucralfate 100 mg/mL oral ml PO 01/14/23 suspension verapamil 180 mg tablet,extended 180 mg PO DAILY 01/14/23 release Previous Rx's ?Medication ?Instructions ?Recorded tamsulosin 0.4 mg capsule 0.4 mg PO DAILY 90 days #90 caps 03/29/21 aspirin 81 mg capsule 81 mg PO DAILY #30 caps 01/31/22 furosemide 40 mg tablet 40 mg PO DAILY #30 tabs 12/05/22 levofloxacin 500 mg tablet 500 mg PO DAILY #8 tabs 12/07/22 pantoprazole 40 mg tablet,delayed 40 mg PO DAILY@0630 #30 tabs 02/27/23 release molnupiravir 200 mg capsule (EUA) 800 mg (4 x 200 mg) PO Q12H 5 days 04/10/23 #40 caps sucralfate 100 mg/mL oral 10 ml PO BEDTIME #400 mL 05/15/23 suspension docusate sodium 100 mg capsule 100 mg PO BID #60 caps 05/20/23 sennosides 8.6 mg tablet (senna) 8.6 mg PO BEDTIME #30 tabs 05/20/23 rivaroxaban 20 mg tablet (Xarelto) 20 mg PO QPM #28 tabs 06/19/23 amoxicillin 875 mg-potassium 1 tab PO BID 10 days #20 tabs 07/28/23 clavulanate 125 mg tablet Allergies Allergy/AdvReac Type Severity Reaction Status Date / Time ezetimibe [From Zetia] Allergy Severe Anaphylaxis Verified 07/28/23 05:36 dabigatran etexilate Allergy Intermediate ITCHING Verified 07/28/23 05:36 [From PRADAXA] JORGE L Inhibitors Allergy Mild UNKNOWN, Verified 07/28/23 05:36 [Jorge L Inhibitors] FOUND IN MEDICAL RECORD 04/[address] GIPSON apixaban [From ELIQUIS] Allergy Unknown Rash Verified 07/28/23 05:36 rosuvastatin [Crestor] Allergy Unknown myalgia Verified 07/28/23 05:36 Review of Systems Review of Systems Constitutional : No Weight loss, No Fever, No Chills ENT/Mouth : No sore throat, No Rhinorrhea Eyes: No Swelling, No Redness Cardiovascular : No Chest Pain, No SOB, No edema Respiratory : No Cough, No Sputum, No Wheezing Gastrointestinal : no Nausea, no Vomiting, no Diarrhea, positive abdominal Pain, No Hematochezia, No Melena Genitourinary : No Dysuria, No Urinary Frequency, No Hematuria, No Urgency Musculoskeletal : No joint pain, No Myalgias, No Joint Swelling Skin : No Skin Lesions, No rash Neuro : No Weakness, No Numbness, No Dizziness, No Headache All other systems reviewed and are negative. [facility] Past Medical History Attestation statement: The following information was validated with the patient. Source: old records reviewed Medical History Stasis leg ulcer Pacemaker History of TIA (transient ischemic attack) (~2021) History of COVID-19 Tension headache Meningioma Hypertrophic cardiomyopathy Hearing loss Diastolic CHF, 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 Frequency of micturition Chronic abdominal pain Peripheral neuropathy Constipation Diverticulitis Polyarthralgia Primary osteoarthritis of right knee Urinary incontinence History of CVA (cerebrovascular accident) (~2018) Protrusion of lumbar intervertebral disc History of rib fracture Peripheral vascular disease GERD (gastroesophageal reflux disease) Obstructive sleep apnea BPH (benign prostatic hyperplasia) Anxiety and depression Paroxysmal atrial fibrillation COPD (chronic obstructive pulmonary disease) Obesity (BMI 30-39.9) Hypercholesterolemia Hypertension Anemia Current use of anticoagulant therapy Surgical History History of pacemaker History of colonoscopy History of total right hip replacement (~2016) History of transurethral resection of prostate History of tonsillectomy History of left knee replacement (~2007) Family History Family History Father No problems noted. 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 Patient Tobacco Use Status: Never used Tobacco Years Smoked: 30 yrs ago Smoked in Last 30 Days: No Second Hand Smoke Exposure: No Use of substances other than those prescribed or required for medical reasons: No Advance Directives: Yes Advance Directives on File: Yes Advance Directives Date on File: 04/06/20 Do you have a plan to hurt others: No Plan service: No Current occupational status: unemployed and retired Current occupation: Right Handed Physical Exam ED Vital Signs: Vital Signs - 24 hr 07/28/23 05:33 07/28/23 08:25 07/28/23 08:26 Temperature 98.7 F 98.0 F Pulse Rate 81 68 68 Respiratory Rate 14 18 Blood Pressure 187/78 H 201/80 H 201/80 H Pulse Oximetry 98 97 Oxygen Delivery Method Room Air Room Air BMI result Body Mass Index 36.7 Appearance: Alert. Oriented X3. No acute distress. Eyes: Pupils equal, round and reactive to light. ENT: Pharynx normal. Neck: Normal inspection. Neck supple. CVS: Normal heart rate and rhythm. Pulses normal. Respiratory: No respiratory distress. Breath sounds normal. Abdomen: Soft and L sided abdominal ttp no rebound Skin: Skin warm and dry. Normal skin color. Normal skin turgor. Extremities: trace edema both ankles No calf ttp Neuro: Oriented X 3. No motor deficit. No sensory deficit. Medical Decision Making Medical Decision Making [facility] Narrative: 87 yo male with PMH of CHF, PAF on xarelto, complete heart block s/p PPM, TIAs, HTN, diverticulitis, abdominal pain, HLD, BPH, anemia, anxiety and depression who c/o L sided abdominal pain without any associated GI or symptoms. At this time will obtain basic labs and CT scan to assess for constipation, renal colic, diverticulitis. Differential Diagnosis Differential Diagnoses: The differential diagnosis associated with the presentation includes constipation, abdominal pain, renal colic, diverticulitis Admission/Observation Consideration of admission/observation: Escalation of care including admission/observation considered no severe pain, no bleeding not toxic, mild diverticulitis, labs reasurring Lab Data [facility] Lab Attestation statement: I reviewed the patient's lab results. 07/28/23 05:45 07/28/23 05:45 Labs: Lab Results 07/28/23 Range/Units 05:45 WBC 9.5 (4.8-10.8) X10*3/uL RBC 3.92 L (4.60-5.80) X10*6/uL Hgb 10.7 L (14.0-18.0) g/dl Hct 33.4 L (42.0-52.0) % MCV 85.2 (80.0-98.0) fL MCH 27.3 (27.0-33.0) pg MCHC 32.0 (31.0-36.0) g/dl RDW 15.4 (11.0-16.0) % Plt Count 229 (160-400) X10*3/uL MPV 9.4 (9.4-12.4) fL Immature Gran % (Auto) 0.3 (0.0-0.4) % Neut % (Auto) 66.3 (45-73) % Lymph % (Auto) 21.9 (20-40) % [place] % (Auto) 7.9 (2-11) % Eos % (Auto) 3.1 (0-4) % Baso % (Auto) 0.5 (0-2) % Lymph # (Auto) 2.1 (1.2-4.9) X10*3/uL [place] # (Auto) 0.8 (0.1-1.2) X10*3/uL Eos # (Auto) 0.3 (0.0-0.4) X10*3/uL Baso # (Auto) 0.1 (0.0-0.2) X10*3/uL Abs Immat Gran (auto) 0.03 (0.00-0.03) X10*3/uL Absolute Neuts (auto) 6.3 (2.0-8.3) x10*3/uL Absolute Nucleated RBC 0.000 (0.0-0.012) X10*3/uL Nucleated RBC % (auto) 0.0 (0.0-0.2) /100WBC Sodium 145 (135-145) mmol/L Potassium 3.8 (3.3-5.1) mmol/L Chloride 111 H (96-108) mmol/L Carbon Dioxide 24 (22-29) mmol/L Anion Gap 14 (12-20) BUN 16 (9-16) mg/dL Creatinine 0.90 (0.5-1.4) mg/dL Estim Creat Clear Calc 57.6 Estimated GFR > 60 Random Glucose 99 (60-115) mg/dL Calcium 9.3 (8.4-10.2) mg/dL Total Bilirubin 0.3 (0.0-1.0) mg/dL AST 30 (5-37) U/L ALT 15 (0-40) U/L Alkaline Phosphatase 59 (39-117) U/L Total Protein 6.4 L (6.5-8.0) g/dL Albumin 3.4 L (3.5-5.0) g/dL Lipase 15 (8-78) U/L Independent Interpretation I performed an independent interpretation of an: CT Scan Radiology Impression Discussion of test interpretation with radiology: I have reviewed the radiologist's reading. External Record Review External record reviewed: Inpatient record Prescription Management I considered prescription management with: Pain Medication and Antibiotic Medications Administered Discontinued Medications Generic Name Dose Route Start Last Admin Trade Name Moise PRN Reason Stop Dose Admin Carvedilol 25 mg 07/28/23 07:14 07/28/23 08:26 Carvedilol 25 Mg Tablet PO 07/28/23 07:15 25 mg ONCE ONE Administration Protocol Losartan Potassium 50 mg 07/28/23 07:14 07/28/23 08:26 Losartan Potassium 50 Mg Tablet PO 07/28/23 07:15 50 mg ONCE ONE Administration Protocol Verapamil HCl 120 mg 07/28/23 07:14 07/28/23 08:25 Verapamil Hcl Sr 120 Mg Tablet.Er PO 07/28/23 07:15 120 mg ONCE ONE Administration Protocol Discharge Plan Discharge Clinical Impression: Diverticulitis Patient Disposition: Home, Self-Care Instructions: Diverticulitis (ED) Additional Instructions: return for worsening symptoms or concerns such as bleeding, fevers, vomiting, inability to eat or drink or any other concerns given losartan, verapamil, carvedilol while in the ED Prescriptions: New amoxicillin-pot clavulanate 875-125 mg tablet 1 tab PO BID 10 Days Qty: 20 0RF No Action tamsulosin 0.4 mg capsule 0.4 mg PO DAILY 90 Days Qty: 90 3RF furosemide 40 mg tablet 40 mg PO DAILY Qty: 30 5RF pantoprazole 40 mg tablet,delayed release (DR/EC) 40 mg PO DAILY@0630 Qty: 30 3RF docusate sodium 100 mg capsule 100 mg PO BID Qty: 60 5RF sennosides [senna] 8.6 mg tablet 8.6 mg PO BEDTIME Qty: 30 4RF Xarelto 20 mg tablet 20 mg PO QPM Qty: 28 5RF atorvastatin 80 mg tablet 80 mg PO BEDTIME potassium chloride 10 mEq tablet extended release 1 tab PO BID aspirin 81 mg capsule 81 mg PO DAILY Qty: 30 0RF fluticasone furoate-vilanterol [Breo Ellipta] 200-25 mcg/dose Blister With Device 1 inh INHALATION DAILY multivitamin Tablet 1 tab PO DAILY losartan 50 mg tablet 50 mg PO DAILY ferrous sulfate [FeroSul] 325 mg (65 mg iron) tablet 325 mg PO DAILY fluticasone propionate 50 mcg/actuation spray,suspension 1 spray intranasal DAILY PRN (Reason: Allergy Symptoms) levofloxacin 500 mg tablet 500 mg PO DAILY Qty: 8 0RF molnupiravir 200 mg capsule 800 mg PO Q12H 5 Days Qty: 40 0RF carvedilol 25 mg tablet 25 mg PO BID CertaVite Senior 0.4 mg-300 mcg- 250 mcg tablet PO verapamil 180 mg tablet extended release 180 mg PO DAILY sucralfate 100 mg/mL suspension PO sucralfate 100 mg/mL suspension 10 ml PO BEDTIME Qty: 400 3RF Print Language: Turkish
--- NOTE | 2023-07-28 07:48 | PC.NURSE ---
patient off to ct scan at this time. pharmacy called for medication.
[2023-07-28 07:49] LABS: Lipase 15 U/L (8-78)
[2023-07-28 08:25] VITALS: BP 201/80; PULSE 68
[2023-07-28] MEDS: VerapamiL HCL SR 120 MG TABLET.ER PO (08:25)
[2023-07-28 08:26] VITALS: BP 201/80; PULSE 68; RESP 18; TEMP 36.7; O2SAT 97
[2023-07-28] MEDS: carvediloL 25 MG TABLET PO (08:26)
[2023-07-28] MEDS: Losartan Potassium 50 MG TABLET PO (08:26)
--- NOTE | 2023-07-28 08:29 | PC.NURSE ---
alert and oriented with even and unlabored respirations. patient medicated per the APR - reporting improvement in his abdominal pain at this time. awaiting results from ct scan, call [facility] within reach
[2023-07-28 09:51] VITALS: BP 191/80; PULSE 63; RESP 15; O2SAT 98
[2023-07-28] MEDS: Amoxicillin/Potassium Clav 875 MG TABLET PO (10:00)
[2023-07-28 10:20] VITALS: BP 191/80; PULSE 63; RESP 15; TEMP 37.1; O2SAT 98
== END 2023-07-28 10:21 | disposition home or self-care (01) ==
PROVIDERS: Emergency Provider Emergency Medicine; PCP Internal Medicine
DX: K57.92 Diverticulitis of intestine, part unspecified, without perforation or abscess without bleeding (principal); I10 Essential (primary) hypertension; I48.0 Paroxysmal atrial fibrillation; J44.9 Chronic obstructive pulmonary disease, unspecified; Z86.73 Personal history of transient ischemic attack (TIA), and cerebral infarction without residual deficits; Z79.01 Long term (current) use of anticoagulants
CPT/HCPCS: 36415; 74176; 80053; 83690; 85025; 93005; 99284; 99285

== ENCOUNTER → 2023-07-28 05:36 | Outpatient (BNV) | payer OTHER, SELFPAY | PROVIDERS: Emergency Provider Emergency Medicine; PCP Internal Medicine; Visit Provider Internal Medicine Cardiovascular Disease | DX: R10.9 Unspecified abdominal pain (principal); I49.8 Other specified cardiac arrhythmias; I45.9 Conduction disorder, unspecified; R94.31 Abnormal electrocardiogram [ECG] [EKG] | CPT/HCPCS: 93010 ==

== ENCOUNTER 2023-07-30 08:05 | Outpatient (RCR) | payer OTHER, SELFPAY | END 2023-09-18 12:14 | disposition home or self-care (01) | LOC: HO.WCC 08:05 | PROVIDERS: PCP Internal Medicine; Visit Provider Surgery | DX: Z09 Encounter for follow-up examination after completed treatment for conditions other than malignant neoplasm (principal); I87.302 Chronic venous hypertension (idiopathic) without complications of left lower extremity; I11.0 Hypertensive heart disease with heart failure; I50.9 Heart failure, unspecified; I73.9 Peripheral vascular disease, unspecified; Z86.73 Personal history of transient ischemic attack (TIA), and cerebral infarction without residual deficits; Z87.891 Personal history of nicotine dependence; Z87.2 Personal history of diseases of the skin and subcutaneous tissue | CPT/HCPCS: 99212 ==

== ENCOUNTER 2023-08-03 09:54 | Outpatient (REF) | payer OTHER, SELFPAY ==
--- NOTE | ~2023-08-03 | US_ITS ---
EXAMINATION: US LOWER EXTREMITY VENOUS (REFLUX EXAM), BILATERAL CLINICAL INDICATION: Chronic venous insufficiency with lower extremity edema COMPARISON: None. TECHNIQUE: Color flow triplex imaging and compression Doppler was performed to evaluate both the deep and the superficial systems bilaterally. To evaluate the superficial system, the examination was performed in the upright position. Color-flow Doppler ultrasound and compression ultrasound were utilized. In addition, maneuvers were utilized to demonstrate reflux. FINDINGS: 1. DEEP VENOUS ULTRASOUND OF THE RIGHT LOWER EXTREMITY: Common Femoral Vein: Compressible, normal respiratory variation and augmented flow. Femoral Vein: Compressible, normal color flow and augmentation. Popliteal Vein: Compressible, normal augmentation. Deep Reflux: There is no evidence of reflux in the deep system in either the common femoral vein, superficial femoral or the popliteal vein. There is no evidence of a Saldivar's cyst. Subcutaneous edema within the mid to distal calf 2. SUPERFICIAL ULTRASOUND WITH DOPPLER OF RIGHT LOWER EXTREMITY: GREAT SAPHENOUS VEIN: Saphenofemoral Junction: 0.6 cm; Reflux: 0 ms Proximal Thigh: 0.4 cm; Reflux: 0 ms Mid Thigh: 0.2 cm; Reflux: 0 ms Above Knee: 0.3 cm; Reflux: 0 ms At Knee: 0.2 cm; Reflux: 0 ms Below Knee: 0.2 cm; Reflux: 0 ms Mid Calf: 0.2 cm; Reflux: 0 ms Ankle: 0.2 cm; Reflux: 0 ms DUPLICATED MEDIAL GREAT SAPHENOUS VEIN: Diameter: None imaged Reflux: NA DUPLICATED LATERAL GREAT SAPHENOUS VEIN: Diameter: None imaged Reflux: NA SMALL SAPHENOUS VEIN: Saphenopopliteal Junction: 0.3 cm; Reflux: 0 ms Mid: 0.3 cm; Reflux: 0 ms Distal: 0.2 cm; Reflux: 0 ms VEIN OF GIACOMINI: Size: 0.2 cm Reflux: None PERFORATORS: Location: None imaged Size: NA Reflux: NA VARICOSITIES: Location: None imaged Size: NA Reflux: NA 3. DEEP VENOUS ULTRASOUND OF THE LEFT LOWER EXTREMITY: Common Femoral Vein: Compressible, normal respiratory variation and augmented flow. Femoral Vein: Compressible, normal color flow and augmentation. Popliteal Vein: Compressible, normal augmentation. Deep Reflux: There is no evidence of reflux in the deep system in either the common femoral vein, superficial femoral or the popliteal vein. There is no evidence of a Saldivar's cyst. Subcutaneous edema seen within the mid to distal calf 4. SUPERFICIAL ULTRASOUND WITH DOPPLER OF LEFT LOWER EXTREMITY: GREAT SAPHENOUS VEIN: Saphenofemoral Junction: 0.6 cm; Reflux: 0 ms Proximal Thigh: 0.3 cm; Reflux: 0 ms Mid Thigh: 0.2 cm; Reflux: 0 ms Above Knee: 0.3 cm; Reflux: 0 ms At Knee: 0.3 cm; Reflux: 0 ms Below Knee: 0.2 cm; Reflux: 0 ms Mid Calf: 0.2 cm; Reflux: 0 ms Ankle: 0.2 cm; Reflux: 0 ms DUPLICATED MEDIAL GREAT SAPHENOUS VEIN: Diameter: None imaged Reflux: NA DUPLICATED LATERAL GREAT SAPHENOUS VEIN: Diameter: None imaged Reflux: NA SMALL SAPHENOUS VEIN: Saphenopopliteal Junction: 0.3 cm; Reflux: 0 ms Mid: 0.3 cm; Reflux: 0 ms Distal: 0.3 cm; Reflux: 0 ms VEIN OF GIACOMINI: Size: 0.2 cm Reflux: None PERFORATORS: Location: None imaged Size: NA Reflux: NA VARICOSITIES: Location: None Imaged Size: NA Reflux: NA US/US venous duplex LE BI IMPRESSION: Right: Subcutaneous edema in the mid to distal calf. No significant venous insufficiency or reflux Left: Subcutaneous edema in the mid to distal calf. No significant venous insufficiency or reflux
== END 2023-08-03 09:55 | disposition home or self-care (01) ==
LOC: HO.US 09:54
PROVIDERS: PCP Internal Medicine; Visit Provider Registered Nurse
DX: R60.0 Localized edema (principal)
CPT/HCPCS: 93970

== ENCOUNTER 2023-08-17 12:36 | Outpatient (AMB) | payer OTHER, SELFPAY ==
--- NOTE | 2023-08-17 12:55 | MHC.OFFVIS ---
Vital Signs 08/17/23 12:59 Height 4 ft 10 in Weight 206 lb 5.643 oz BMI 43.1 BP 191/87 H Blood Pressure Location Lt brachial Position Sitting Pulse 62 Intake Visit Reasons: 3 month follow up GERD, CIC Intake Note: Pal presents in the office as a 3 month follow up GERD and CIC. CC: States that he is having issues with his BP. States that the GERD and constipation has been okay. 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 GIPSON apixaban [From ELIQUIS] Allergy (Unknown, Verified 08/17/23 12:59) Rash rosuvastatin [Crestor] Allergy (Unknown, Verified 08/17/23 12:59) myalgia HPI HPI 3 month follow up GERD, CIC: Details: LAST VISIT Stasis leg ulcer Abdominal pain Diverticulitis GERD (gastroesophageal reflux disease) Constipation Plan Referral send to wound care center to help him heal his left lower extremity ulcer/Wound quicker. Patient reports that he is not diabetic. Will check A1c. Patient continues to have occasional dyspepsia. Now he reports to have trouble swallowing at times. Will send him for upper GI with barium swallow. Patient reports that his symptoms are in lower esophagus. Will add sucralfate to treatment. Patient states that he ran out couple months ago. Discussed with patient avoiding dietary triggers and late night snacking. Eating smaller meals and more often. Avoiding food high in salt. I will see him in 3 months, sooner on as needed basis. Patient is agreeable to this plan and verbalizes understanding of instructions. He was given the opportunity to ask questions all questions answered. ? Thank you for allowing me to participate in his care Orders Orders Hemoglobin A1c Today E11.9 FL upper GI w Ba Swallow Today R13.10 Referrals Wound Care Referral I83.009, L97.929 TODAY'S VISIT Patient is here today for follow-up and to discuss lab results as well as upper GI with barium swallow results. Patient has moderate reflux that was seen on radiology report. Patient had 1 episode of mild left lower quadrant pain that radiated from his left flank. Patient described the pain as different coming more from his back area to the front. CT scan showed mild descending/sigmoid colon wall thickening suggestive diverticulitis. Patient reports that he has been doing well. Denies any abdominal pain or discomfort. Patient states that he is moving his bowels well without any issues. Patient reports that he is eating plenty fiber. Takes fiber supplements as well. Patient is taking pantoprazole every morning. Patient is little bit worry about his blood pressure. He also gets very anxious and nervous. He will be seen his PCP next week. Patient denies melena, hematochezia. Denies dyspepsia, dysphagia or odynophagia [facility] Medical History Stasis leg ulcer Pacemaker History of TIA (transient ischemic attack) (~2021) History of COVID-19 Tension headache Meningioma Hypertrophic cardiomyopathy Hearing loss Diastolic CHF, 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 Frequency of micturition Chronic abdominal pain Peripheral neuropathy Constipation Diverticulitis Polyarthralgia Primary osteoarthritis of right knee Urinary incontinence History of CVA (cerebrovascular accident) (~2018) Protrusion of lumbar intervertebral disc History of rib fracture Peripheral vascular disease GERD (gastroesophageal reflux disease) Obstructive sleep apnea BPH (benign prostatic hyperplasia) Anxiety and depression Paroxysmal atrial fibrillation COPD (chronic obstructive pulmonary disease) Obesity (BMI 30-39.9) Hypercholesterolemia Hypertension Anemia Current use of anticoagulant therapy Surgical History History of pacemaker History of colonoscopy History of total right hip replacement (~2016) History of transurethral resection of prostate History of tonsillectomy History of left knee replacement (~2007) Family History Father No problems noted. 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 Patient Tobacco Use Status: Never used Tobacco Years Smoked: 30 yrs ago Second Hand Smoke Exposure: No Advance Directives Date on File: 04/06/20 service: No Current occupational status: unemployed and retired Current occupation: Right Handed Review of Systems Const Denies weight gain and Denies weight loss ENT Reports no additional complaints, Denies dysphagia and Denies odynophagia Card Reports no additional complaints Resp Reports no additional complaints GI Denies abdominal pain, Denies belching, Denies melena, Denies bloating, Denies change in bowel habits, Denies dysphagia, Denies excessive flatus, Denies dyspepsia, Denies heartburn, Denies diarrhea, Denies loose stools, Denies nausea, Denies odynophagia and Denies vomiting Reports no additional complaints Musc Reports no additional complaints Neuro Reports no additional complaints Psych Reports no additional complaints Endo Reports no additional complaints Physical Exam Vital Signs: Last Vital Signs Pulse 62 08/17/23 12:59 BP 191/87 H 08/17/23 12:59 BMI result Body Mass Index 43.1 Const Other: Patient ambulating with a wheeled walker General: no acute distress Nutritional Appearance: obese Orientation/consciousness: patient oriented x3 Resp Effort & Inspection: normal respiratory effort, able to speak in complete sentences, no tracheal deviation and symmetric chest movement Auscultation: clear to auscultation bilaterally Cardio Rate: regular rate GI Inspection: Yes normal to inspection, Yes obesity and Yes other (Large) Palpation (GI): Soft to palpation, not firm and nontender Auscultation: normal bowel sounds General: Yes no CVA tenderness Back/Spine/Pelvis Back: no CVA tenderness Skin General skin exam: elasticity normal, turgor normal and dry skin Neuro General: patient oriented x3 Psych Appearance: grossly normal Mental Status: mental status grossly normal Results Reviewed Results Reviewed: UPPER GI BARIUM SWALLOW IMPRESSION: 1. Mild laryngeal penetration with thick barium to the level of the laryngeal ventricle. No subglottic aspiration identified. 2. Mild cricopharyngeal achalasia. 3. Small type I hiatal hernia. 4. Moderate gastroesophageal reflux. 5. Mildly thickened gastric rugal folds that likely suggests gastritis. 6. Status post pacemaker. CT SCAN FROM ED 07/28/2023 IMPRESSION: 1. Colonic diverticulosis with slight wall thickening and pericolonic inflammatory changes greatest at the descending colon/sigmoid colon suggesting diverticulitis. 2. Persistent slight haziness throughout the mesentery, nonspecific. 3. Osteopenia. Grade 1 anterolisthesis of L5 on S1. Assessment & Plan Assessment & Plan (1) Abdominal pain: Code(s): R10.9 - Unspecified abdominal pain Category: Medical Qualifiers: Abdominal location: left lower quadrant Qualified Code(s): R10.32 - Left lower quadrant pain (2) Diverticulitis: Code(s): K57.92 - Diverticulitis of intestine, part unspecified, without perforation or abscess without bleeding Category: Medical (3) GERD (gastroesophageal reflux disease): Code(s): K21.9 - Gastro-esophageal reflux disease without esophagitis Category: Medical Qualifiers: Esophagitis presence: esophagitis presence not specified Qualified Code(s): K21.9 - Gastro-esophageal reflux disease without esophagitis (4) Constipation: Code(s): K59.00 - Constipation, unspecified Qualifiers: Constipation type: slow transit constipation Qualified Code(s): K59.01 - Slow transit constipation Plan Patient was encouraged to keep up with fiber. Take stool softeners and senna to help him eliminate his bowels better daily. Please remind patient to bring his medications that he takes at home with him. We want to make sure that we update his med list. Patient will return in 3 months, sooner on as needed basis. He is agreeable to this plan and verbalizes understanding of instructions. He was given the opportunity to ask questions and all questions answered. Thank you for allowing me to participate in his care Medications: Refilled pantoprazole 40 mg PO DAILY@0630 30 tabs 3RF sennosides (senna) 8.6 mg PO BEDTIME 30 tabs 4RF Coding Level of Care Code Est Pt Level 4 (99394) Diagnoses Left lower quadrant abdominal pain R10.32 Abdominal location: left lower quadrant Diverticulitis K57.92 Gastroesophageal reflux disease, unspecified whether esophagitis present K21.9 Esophagitis presence: esophagitis presence not specified Slow transit constipation K59.01 Constipation type: slow transit constipation Time Spent (min) 35 Comment 20 minutes spent with patient and additional 15 minutes spent reviewing his records
[2023-08-17 12:59] VITALS: BP 191/87; PULSE 62; BMI 43.1
== END 2023-08-17 13:35 | disposition home or self-care (01) ==
PROVIDERS: PCP Internal Medicine; Visit Provider Nurse Practitioner Family
DX: R10.32 Left lower quadrant pain (principal); K57.92 Diverticulitis of intestine, part unspecified, without perforation or abscess without bleeding; K21.9 Gastro-esophageal reflux disease without esophagitis; K59.01 Slow transit constipation
CPT/HCPCS: 99214

== ENCOUNTER → 2023-08-17 12:36 | Outpatient (BNVA) | payer OTHER, SELFPAY | PROVIDERS: PCP Internal Medicine; Visit Provider Nurse Practitioner Family | DX: R10.32 Left lower quadrant pain (principal); K57.92 Diverticulitis of intestine, part unspecified, without perforation or abscess without bleeding; K21.9 Gastro-esophageal reflux disease without esophagitis; K59.01 Slow transit constipation; Z79.899 Other long term (current) drug therapy | CPT/HCPCS: 99212 ==

== ENCOUNTER 2023-08-30 00:41 | Emergency (ER) | payer OTHER, SELFPAY ==
--- NOTE | 2023-08-30 | ECG_ITS ---
Test Reason : JAW PAIN Blood Pressure : / mmHG Vent. Rate : 064 BPM Atrial Rate : 064 BPM P-R Int : 178 ms QRS Dur : 120 ms QT Int : 442 ms P-R-T Axes : 028 -27 125 degrees QTc Int : 455 ms Atrial-sensed ventricular-paced rhythm with occasional AV dual-paced complexes Abnormal ECG When compared with ECG of 28-JUL-2023 05:36, Vent. rate has decreased BY 15 BPM Referred By: Generic ED Physician Electronically Signed By:CAM MALDONADO
[2023-08-30 01:26] VITALS: BP 146/78; PULSE 77; O2SAT 100; BMI 31.4
[2023-08-30 01:33] LABS: MANUAL DIFF FLAG NO
[2023-08-30 01:34] LABS: Basophils Percent Auto 0.1 % (0-2); Hematocrit 35.5 % (42.0-52.0); Hemoglobin 11.5 g/dl (14.0-18.0); Imm Gran Abs Auto 0.11 X10*3/uL (0.00-0.03); Imm Gran Pct Auto 0.7 % (0.0-0.4); Lymphocytes Percent Auto 13.5 % (20-40); Mean Corpuscular HGB Conc 32.4 g/dl (31.0-36.0); Mean Corpuscular Hemoglobin 27.5 pg (27.0-33.0); Mean Corpuscular Volume 84.9 fL (80.0-98.0); Mean Platelet Volume 9.1 fL (9.4-12.4); Monocytes Absolute Auto 0.7 X10*3/uL (0.1-1.2); Monocytes Percent Auto 4.8 % (2-11); Neutrophils Absolute Auto 12.2 x10*3/uL (2.0-8.3); Neutrophils Percent Auto 80.9 % (45-73); Platelet Count 188 X10*3/uL (160-400); Red Blood Count 4.18 X10*6/uL (4.60-5.80); Red Cell Distribution Width 14.7 % (11.0-16.0); White Blood Count 15.1 X10*3/uL (4.8-10.8)
--- OUTSIDE RECORDS SUMMARY | 2023-08-30 01:41 | XMS_ITS | Continuity of Care Document ---
Author Organization [facility] As [facility] Address [address] [place] [address] [address] [place] [address]- Care Team Providers Care Operations Support Coordinator Name Role Phone Crystal Vera MD Primary Care Physician Encounter [facility] Date(s): 05/26/23 - 06/02/[address] [place] [address]- Attending Physician: Collin Roberts MD Referring Physician: Crystal Vera MD Allergies, Adverse Reactions, Alerts Substance Reaction [...] Note: VIS GIVEN VIS DATE 03/18/2011 Medications Aspirin Low Dose 81 mg oral delayed release tablet 0 Refills, Maintenance, 03/16/23 20:25:00 EST, Partial fill upon patient request if the prescription is for a schedule II opioid drug. Start Date: 03/16/23 Status: Ordered atorvastatin 80 mg oral tablet 1 tablet = 80 mg, By Mouth, Daily, # 30 tablet, 11 Refills, Maintenance, Tablet, Route to Pharmacy Electronically, [id number], [facility] Start Date: 12/05/16 Stop [...] Date: 07/02/17 Stop Date: 12/29/17 Status: Ordered Coreg 25 mg oral tablet 25 mg, By Mouth, 2 times a day, # 60 tablet, Refills 11, Tot. Refills 11, Maintenance, 12/05/16 9:23:00, Route to Pharmacy Electronically, [id number], [id number] Start Date: 12/05/16 Stop Date: 11/30/17 Status: Ordered FeroSul 325 mg oral tablet 0 Refills, Maintenance, 03/16/23 21:29:00 EST, Partial fill upon patient request if the prescription is for a schedule II opioid drug. Start Date: 03/16/23 Status: Ordered Lasix 40 mg oral tablet 40 mg, 1, tablet, By Mouth, Daily, # 30 tablet, Refills 0, Tot. Refills 0, Maintenance, 03/18/23 11:33:00 EST, Route to Pharmacy Electronically, [facility], Partial fill upon patient request if the prescription is for a schedule II opioid... Start Date: 03/18/23 Status: Ordered levocetirizine = 5 mg, By Mouth, Daily before dinner, 0 Refills, Maintenance, 04/20/23 9:41:00 EST, Partial fill upon patient request if the prescription is for a schedule II opioid drug. Start Date: 04/20/23 Status: Ordered losartan 25 mg oral tablet 0 Refills, Maintenance, 03/16/23 21:28:00 EST, Partial fill upon patient request if the prescription is for a schedule II opioid drug. Start Date: 03/16/23 Status: Ordered pantoprazole 40 mg oral delayed release tablet 1 tablet = 40 mg, By Mouth, Daily, # 30 tablet, 0 Refills, Maintenance, 11/17/19 12:47:00 EDT, EC Tablet Start Date: 11/17/19 Status: Ordered Potassium Chloride (Vpe-Nwwk-Ucl 10) 10 mEq oral tablet, extended release 0 Refills, Maintenance, 03/16/23 21:09:00 EST, Partial fill upon patient request if the prescription is for a schedule II opioid drug. Start Date: 03/16/23 Status: Ordered Senna Plus 50 mg-8.6 mg oral tablet 1-2 tablet, By Mouth, Daily at bedtime, as needed, # 30 tablet, 0 Refills, Maintenance, 11/18/19 12:22:00 EDT, Tablet Start Date: 11/18/19 Status: Ordered tamsulosin 0.4 mg oral capsule 0.4 mg, 1, capsule, By Mouth, Daily, Refills 0, Maintenance, 09/10/16 15:59:16 EDT Start Date: 09/10/16 Status: Ordered verapamil 120 mg oral capsule, extended release 1 capsule = 120 mg, By Mouth, Daily, # 90 capsule, 3 Refills, Maintenance, 04/24/23 10:17:00 EST, [facility], Partial fill upon patient request if the prescription is for a schedule II opioid drug., 158, cm, 04/20/23 9:40:00 EST, Height, 9... Start Date: 04/24/23 Status: Ordered VITAMIN B-12 TAB 1000MCG VITAMIN B-12 TAB 1000MCG, 1,000 mcg, By Mouth, Daily, 0 Refills, Maintenance, 07/25/20 0:00:00 EDT Start Date: 07/25/20 Status: Ordered Xarelto 20 mg oral tablet 1 tablet = 20 mg, By Mouth, Daily before dinner, 0 Refills, Maintenance, 10/08/20 11:21:00 EDT, Partial fill upon patient request if the prescription is for a schedule II opioid drug. 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 [place] (myocardial infarction) 1 Confirmed Active Obstructive sleep apnea Confirmed Active OA (osteoarthritis) of hip 2, 3 Confirmed Active Intermittent right upper quadrant abdominal discomfort Confirmed Active Severe obesity (BMI 35.0-39.9) with comorbidity Confirmed Active Tonsillectomy without Adenoidectomy Confirmed Active Total Knee Replacement 4 Confirmed Active Treatment-emergent central sleep apnea Confirmed Active 1In [place] in 1992 2s/p THR on 01/21/16 3Severe with Trochanteric Bursitis 4Left Vital Signs Most recent to oldest [Reference Range]: 1 Height 158 cm (05/26/23 10:47 AM) Weight 94.3 kg (05/26/23 10:47 AM) Pulse Rate [55-90 bpm] 67 bpm (05/26/23 10:47 AM) Body Mass Index [18.5-24.99 kg/m2] 37.77 kg/m2 *>HHI* (05/26/23 10:47 AM) Blood Pressure [90-138/55-84 mm Hg] 147/ 75mm Hg *H* (05/26/23 10:47 AM) Temperature [96.8-100.4 DegF] 97.8 DegF (05/26/23 10:47 AM) Blood pressure sites Arm, left (05/26/23 10:47 AM) Temperature Route Temporal (05/26/23 10:47 AM) Social History Social History Type Response Smoking Status Former smoker, quit more than 30 days ago; Other: Quit Over 40 years ago; entered on: 01/13/22 Sex Male Patient Care team information Care Team Personnel Name: Nickie Parker RN Position: [facility] RN Member Role: Primary Care Nurse Name: Raquel Carlos RN Position: [facility] RN Member Role: Primary Care Nurse Name: Crystal Vera MD Position: [facility] Physician - Primary Care Member Role: PCP Address: Address: [address] [place] [address]- Name: Sofiya Ann RN Position: [facility] RN Member Role: Primary Care Nurse Name: Christelle Chamberlain RN Position: [facility] RN Member Role: Primary Care Nurse Name: Arti Nava RN Position: [facility] RN Member Role: Primary Care Nurse Name: Kimmie Montague RN Position: [facility] RN Member Role: Primary Care Nurse Name: Irene Schwarz RN Position: [facility] RN Member Role: Primary Care Nurse Name: Karmen Fajardo RN Position: [facility] Hospital Set Up Worker Member Role: Primary Care Nurse Care Team Related Persons Name: TAYLORAGGIE Address: home [address] [address]
--- OUTSIDE RECORDS SUMMARY | 2023-08-30 01:41 | XMS_ITS | Continuity of Care Document ---
Author Organization [facility] ter Address [address] [place] [address]- Care Team Providers Care Plant Tour Guide Name Role Phone Crystal Vera MD Primary Care Physician [place] [facility] [place] 02/14/23 - 02/14/[address] [address]- Encounter Diagnosis Paresthesia(Final) - 02/14/23 Discharge Disposition: A-D/C Home Attending Physician: Law Mena MD Admitting Physician: Law Mena MD Referring Physician: Not on Staff, Referring MD Allergies, Adverse Reactions, Alerts Substance Reaction Severity Status apixaban 1 Active Lipitor Body Aches Active 1caused entire body to itch Immunizations [...] Refills, Maintenance, Tablet, Route to Pharmacy Electronically, [id number], [facility] Start Date: 12/05/16 Stop [...] Maintenance, 12/05/16 9:25:33, Route to Pharmacy Electronically, [id number], [facility] Start Date: 12/05/16 Stop Date: 11/30/17 Status: Ordered Coreg 25 mg oral tablet 25 mg, By Mouth, 2 times a day, # 60 tablet, Refills 11, Tot. 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 [place] (myocardial infarction) 1 Confirmed Active Obese class [...] 1 2 3 Oxygen Saturation [94-100 %] 99 % (02/14/23 7:12 AM) 99 % (02/14/23 6:26 AM) 99 % (02/14/23 5:23 AM) Pulse Rate [55-90 bpm] 60 bpm (02/14/23 7:12 AM) 60 bpm (02/14/23 6:26 AM) 60 bpm (02/14/23 5:23 AM) Blood Pressure [90-138/55-84 mm Hg] 190/68mm Hg *H* (02/14/23 7:12 AM) 219/71mm Hg *H* (02/14/23 6:26 AM) 200/75mm Hg *H* (02/14/23 5:23 AM) Respiratory Rate [16-30 br/min] 16 br/min (02/14/23 7:12 AM) 16 br/min (02/14/23 6:26 AM) 16 br/min (02/14/23 5:23 AM) Temperature [96.8-100.4 DegF] 98.2 DegF (02/14/23 2:08 AM) Mode of Delivery (Oxygen) Room air (02/14/23 6:26 AM) Room air (02/14/23 5:23 AM) Room air (02/14/23 2:41 AM) Blood pressure sites Arm, right (02/14/23 7:12 AM) Arm, right (02/14/23 6:26 AM) Arm, right (02/14/23 5:23 AM) Temperature Route Oral (02/14/23 2:08 AM) Social History Social History Type Response Smoking Status Former smoker, quit more than 30 days ago; Other: Quit Over 40 years ago; entered on: 01/13/22 Sex Male Patient Care team information Care Team Personnel Name: Raquel Carlos RN Position: [facility] SN RN Member Role: Primary Care Nurse Name: Crystal Vera MD Position: [facility] Physician - Primary Care Member Role: PCP Address: Address: [address] [place] [address]- [place] Name: Christelle Chamberlain RN Position: [facility] RN Member Role: Primary Care Nurse Name: Arti Nava RN Position: [facility] RN Member Role: Primary Care Nurse Name: Kimmie Montague RN Position: [facility] RN Member Role: Primary Care Nurse Name: Irene Schwarz RN Position: [facility] RN Member Role: Primary Care Nurse Name: Karmen Fajardo RN Position: [facility] Hospital Maintenance Technician Member Role: Primary Care Nurse Name: Brain Lazo Position: [facility] Associate Professional Member Role: ED Physician Review Scheduling Coordinator Address: Address: [address] [place] [address]- [place] Name: Law Mena MD Position: [facility] Resident Member Role: Admitting Physician Address: Address: [address] [place] [address]- [place] Name: Zan Gill RN Position: [facility] ED RN W/OE and Tasks Member Role: Patient Care Provider Name: Milton Martinez Position: [facility] ED TA [facility] Care Team Related Persons Name: AGGIE TAYLOR Address: home [address] [place] [address]
--- OUTSIDE RECORDS SUMMARY | 2023-08-30 01:41 | XMS_ITS | Continuity of Care Document ---
Author Organization [facility] ter Address [address] [place] [address]- Care Team Providers Care Clinical Dietician Name Role Phone Not on Staff, PCP Primary Care Physician Unavail able Encounter [facility] Date(s): 04/10/23 - 04/10/[address] [address] Attending Physician: Arti Catalan NP Allergies, Adverse Reactions, [...] Refills, Maintenance, Tablet, Route to Pharmacy Electronically, [id number], [facility] Start Date: 12/05/16 Stop [...] Maintenance, 12/05/16 9:23:00, Route to Pharmacy Electronically, [id number], [id number] Start Date: 12/05/16 Stop Date: 11/30/17 Status: [...] II opioid... 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 [place] (myocardial infarction) 1 Confirmed Active Obstructive sleep [...] Team Personnel Name: Nickie Parker RN Position: [facility] RN Member Role: Primary Care Nurse Name: Raquel Carlos RN Position: [facility] RN Member Role: Primary Care Nurse Name: Sofiya Ann RN Position: [facility] RN Member Role: Primary Care Nurse Name: Christelle Chamberlain RN Position: [facility] RN Member Role: Primary Care Nurse Name: Not on Staff, PCP Position: [facility] Physician (General Medicine) Member Role: PCP Name: Arti Nava RN Position: [facility] RN Member Role: Primary Care Nurse Name: Kimmie Montague RN Position: [facility] RN Member Role: Primary Care Nurse Name: Irene Schwarz RN Position: [facility] RN Member Role: Primary Care Nurse Name: Karmen Fajardo RN Position: [facility] Wave Solder Offbearer Member Role: Primary Care Nurse Care Team Related Persons Name: AGGIE TAYLOR Address: [address] [address]
--- OUTSIDE RECORDS SUMMARY | 2023-08-30 01:41 | XMS_ITS | Continuity of Care Document ---
Author Organization [facility] Address [address] [address]- Care Team Providers Care Mine Superintendent Name Role Phone Crystal Vera MD Primary Care Physician Encounter [facility] Date(s): 04/27/23 - 05/27/23 [facility] [address] [address]- [place] Allergies, Adverse Reactions, Alerts Substance Reaction Severity [...] Refills, Maintenance, Tablet, Route to Pharmacy Electronically, [id number], [id number] Start Date: 12/05/16 Stop [...] Maintenance, 12/05/16 9:23:00, Route to Pharmacy Electronically, [id number], [id number] Start Date: 12/05/16 Stop Date: 11/30/17 Status: [...] Start Date: 11/17/19 Status: Ordered Potassium Chloride (Duw-Boov-Xno 10) 10 mEq oral tablet, extended release [...] Active Chronic pain Confirmed Active CAD in [place] artery Confirmed Active De Quervain's tenosynovitis Confirmed Active GERD (gastroesophageal reflux disease) Confirmed Active 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 [place] (myocardial infarction) 1 Confirmed Active Obstructive sleep [...] Team Personnel Name: Nickie Parker RN Position: [facility] RN Member Role: Primary Care Nurse Name: Raquel Carlos RN Position: [facility] RN Member Role: Primary Care Nurse Name: Crystal Vera MD Position: [facility] Physician - Primary Care Member Role: PCP Address: Address: [address] [place] [id number]- Name: Sofiya Ann RN Position: [facility] RN Member Role: Primary Care Nurse Name: Christelle Chamberlain RN Position: [facility] RN Member Role: Primary Care Nurse Name: Arti Nava RN Position: [facility] RN Member Role: Primary Care Nurse Name: Kimmie Montague RN Position: [facility] RN Member Role: Primary Care Nurse Name: Irene Schwarz RN Position: [facility] RN Member Role: Primary Care Nurse Name: Karmen Fajardo RN Position: [facility] Hospital Railway Signal Technician Member Role: Primary Care Nurse Care Team Related Persons Name: AGGIE TAYLOR Address: home [address] [place] [id number]
--- OUTSIDE RECORDS SUMMARY | 2023-08-30 01:41 | XMS_ITS | Continuity of Care Document ---
Author Organization [facility] Address [address] [place] [address] [address] [place] [address]- Care Team Providers Care Prosthetist Name Role Phone Crystal Vera MD Primary Care Physician Encounter [facility] Date(s): 04/01/23 - 05/01/[address] [place] [address]- Allergies, Adverse Reactions, Alerts Substance Reaction Severity [...] Refills, Maintenance, Tablet, Route to Pharmacy Electronically, [id number], [id number] Start Date: 12/05/16 Stop [...] Maintenance, 12/05/16 9:23:00, Route to Pharmacy Electronically, [id number], [id number] Start Date: 12/05/16 Stop Date: 11/30/17 Status: [...] Start Date: 11/17/19 Status: Ordered Potassium Chloride (Zhz-Rcef-Btv 10) 10 mEq oral tablet, extended release [...] Active Chronic pain Confirmed Active CAD in [place] artery Confirmed Active De Quervain's tenosynovitis Confirmed Active GERD (gastroesophageal reflux disease) Confirmed Active 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 [place] (myocardial infarction) 1 Confirmed Active Obstructive sleep [...] Team Personnel Name: Nickie Parker RN Position: [facility] RN Member Role: Primary Care Nurse Name: Raquel Carlos RN Position: [facility] RN Member Role: Primary Care Nurse Name: Crystal Vera MD Position: [facility] Physician - Primary Care Member Role: PCP Address: Address: [address] [place] [id number]- Name: Sofiya Ann RN Position: [facility] RN Member Role: Primary Care Nurse Name: Christelle Chamberlain RN Position: [facility] RN Member Role: Primary Care Nurse Name: Arti Nava RN Position: [facility] RN Member Role: Primary Care Nurse Name: Kimmie Montague RN Position: [facility] RN Member Role: Primary Care Nurse Name: Irene Schwarz RN Position: [facility] RN Member Role: Primary Care Nurse Name: Karmen Fajardo RN Position: [facility] Hospital Heel Stainer Member Role: Primary Care Nurse Care Team Related Persons Name: AGGIE TAYLOR Address: home [address] [place] [address]
--- OUTSIDE RECORDS SUMMARY | 2023-08-30 01:41 | XMS_ITS | Continuity of Care Document ---
Author Organization [facility] Address [address] [place] [address] [address] [place] [address]- Care Team Providers Care Senior Vice President Name Role Phone Crystal Vera MD Primary Care Physician Encounter [facility] Date(s): 04/30/23 - 05/07/[address] [place] [address]- Attending Physician: Joseph Espinoza MD Referring Physician: Crystal Vera MD Allergies, [...] Refills, Maintenance, Tablet, Route to Pharmacy Electronically, [id number], [id number] Start Date: 12/05/16 Stop [...] Maintenance, 12/05/16 9:23:00, Route to Pharmacy Electronically, [id number], [id number] Start Date: 12/05/16 Stop Date: 11/30/17 Status: [...] Start Date: 11/17/19 Status: Ordered Potassium Chloride (Mta-Osns-Vya 10) 10 mEq oral tablet, extended release [...] Active Chronic pain Confirmed Active CAD in [place] artery Confirmed Active De Quervain's tenosynovitis Confirmed Active GERD (gastroesophageal reflux disease) Confirmed Active 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 [place] (myocardial infarction) 1 Confirmed Active Obstructive sleep [...] oldest [Reference Range]: 1 Height 158 cm (04/30/23 3:26 PM) Weight 95.4 kg (04/30/23 3:26 PM) Pulse Rate [55-90 bpm] 65 bpm (04/30/23 3:26 PM) Body Mass Index [18.5-24.99 kg/m2] 38.22 kg/m2 *>HHI* (04/30/23 3:26 PM) Blood Pressure [90-138/55-84 mm Hg] 161/ 83mm Hg *H* (04/30/23 3:26 PM) Respiratory Rate [16-30 br/min] 16 br/mi n (04/30/23 3:26 PM) Temperature [96.8-100.4 DegF] 98.1 DegF (04/30/23 3:26 PM) Blood pressure sites Arm, left (04/30/23 3:26 PM) Temperature Route Temporal (04/30/23 3:26 PM) Weight Obtained Via Standing scale (04/30/23 3:26 PM) Social History Social History Type Response Smoking Status Former smoker, quit more than 30 days ago; Other: Quit Over 40 years ago; entered on: 01/13/22 Sex Male Patient Care team information Care Team Personnel Name: Elena PAYNE, Nickie Murdock Position: [facility] RN Member Role: Primary Care Nurse Name: Raquel Carlos RN Position: [facility] SN RN Member Role: Primary Care Nurse Name: Crystal Vera MD Position: [facility] Physician - Primary Care Member Role: PCP Address: Address: [address] [place] [address]- Name: Sofiya Ann RN Position: [facility] RN Member Role: Primary Care Nurse Name: Christelle Chamberlain RN Position: [facility] RN Member Role: Primary Care Nurse Name: Arti Nava RN Position: [facility] RN Member Role: Primary Care Nurse Name: Kimmie Montague RN Position: [facility] RN Member Role: Primary Care Nurse Name: Irene Schwarz RN Position: [facility] RN Member Role: Primary Care Nurse Name: Karmen Fajardo RN Position: [facility] Member Role: Primary Care Nurse Care Team Related Persons Name: AGGIE TAYLOR Address: home [address] [address]
--- OUTSIDE RECORDS SUMMARY | 2023-08-30 01:41 | XMS_ITS | Continuity of Care Document ---
Author Organization [facility] ter Address [address] [place] [id number]- Care Team Providers Care Plant Sprayer Name Role Phone Crystal Vera MD Primary Care Physician Encounter [facility] Date(s): 02/09/23 - 02/09/[address] [address] [[email or web address]] Discharge Disposition: A-D/C Home Attending Physician: Joseph Goode MD Admitting Physician: Joseph Goode MD Referring Physician: Joseph Goode MD Allergies, Adverse Reactions, Alerts Substance Reaction [...] Refills, Maintenance, Tablet, Route to Pharmacy Electronically, [id number], [facility] Start Date: 12/05/16 Stop [...] Maintenance, 12/05/16 9:25:33, Route to Pharmacy Electronically, [id number], [id number] Start Date: 12/05/16 Stop Date: 11/30/17 Status: Ordered Coreg 25 mg oral tablet 25 mg, By Mouth, 2 times a day, # 60 tablet, Refills 11, Tot. 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 NM (myocardial infarction) 1 Confirmed Active Obese class [...] to oldest [Reference Range]: 1 2 3 Weight 96.4 kg (02/09/23 11:15 AM) Oxygen Saturation [94-100 %] 96 % (02/09/23 1:45 PM) 98 % (02/09/23 1:30 PM) 97 % (02/09/23 1:15 PM) Pulse Rate [55-90 bpm] 84 bpm (02/09/23 11:15 AM) Blood Pressure [90-138/55-84 mm Hg] 173/74mm Hg *H* (02/09/23 1:45 PM) 165/77mm Hg *H* (02/09/23 1:30 PM) 160/97mm Hg *H* (02/09/23 1:15 PM) Respiratory Rate [16-30 br/min] 21 br/min (02/09/23 1:45 PM) 22 br/min (02/09/23 1:30 PM) 17 br/min (02/09/23 1:15 PM) Temperature [96.8-100.4 DegF] 98.5 DegF (02/09/23 1:30 PM) 98.7 DegF (02/09/23 12:45 PM) 97.8 DegF (02/09/23 11:15 AM) Mode of Delivery (Oxygen) Room air (02/09/23 1:45 PM) Room air (02/09/23 1:30 PM) Room air (02/09/23 12:45 PM) Blood pressure sites Arm, right (02/09/23 11:15 AM) Temperature Route Temporal (02/09/23 1:30 PM) Temporal (02/09/23 12:45 PM) Temporal (02/09/23 11:15 AM) Dry Weight 96.4 kg (02/09/23 11:15 AM) Dry Weight Obtained Via Standing scale (02/09/23 11:15 AM) Social History Social History Type Response Smoking Status Former smoker, quit more than 30 days ago; Other: Quit Over 40 years ago; entered on: 01/13/22 Sex Male Note * Humberto Padgett: PERFORM Event Display: Discharge/Transfer Note Hospital Authored Date: [id number] Nursing Discharge Note Entered On: 02/09/2023 14:24 EST Performed On: 02/09/2023 14:24 EST by Humberto Padgett Nursing Discharge Note 2 Discharge Time : 02/09/2023 14:23 EST Discharge Level of Care at Discharge : Home/[facility] Patient Left Unit Via : Wheelchair Patient Accompanied Off Unit with : Responsible adult DC Instructions Provided & Signed by Pt : Yes Patient Understands D/C Instructions : Yes Patient Instructions Discharge Signed : Yes Did Pt have Specialty Bed or Wound Vac : No Humberto Padgett - 02/09/2023 14:24 EST * Humberto Padgett: PERFORM, MODIFY Event Display: Patient Education/Instruction Authored Date: [id number] Inpatient Adult Discharge Instructions [address] [address] Name: MIKE TAYLOR : 1935 Visit: 02/09/2023 09:30:00 Current Date: 02/09/2023 13:38 Account: [id number] Inpatient Adult Discharge Instructions We would like to thank you for allowing us to assist you with your healthcare needs. The following includes patient education materials and information regarding your injury/illness. Our entire staffstrives to provide an excellent experience for our patients and their families. PLEASE ENSURE YOU FOLLOW-UP PER THE INSTRUCTIONS BELOW! ?? YOUR OPINION IS IMPORTANT TO US! Please complete the survey you may receive by mail or email. Your feedback will be used to make improvements to the healthcare experiences of our patients and their families. Surveys are administered by [employer] ?? If further treatment with your primary care physician or another doctor is recommended, it is important for you to keep the appointment. Call your primary care physician or return to the Emergency Department immediately if your condition worsens, fails to improve, or new symptoms develop. If you need to find a doctor, you can call [facility] Link for a referral at [phone] or toll free at [phone]) or log in to [email or web address].. ?? [facility], in keeping with [facility] guidance, no longer requires face masks for staff, patientsor visitors in most situations. Similiar to time spent indoors at other locations, there is the chance that you were exposed to repiratory viruses during your time with us (such as flu or COVID-19). If you develop symptoms concerning for a viral respiratory infection, please seek testing (and treatment if indicated) from your medical provider or home test kit. ?? You can view and manage your care through the patient portal or by using a health care jeff of your choosing. [employer] is a website that allows you to securely view your medical information including your hospital discharge summary, office visit summaries, medications and follow-up visits. You can also request appointments, renew medications, and request access to your medical information using a health care jeff of your choosing, or just ask a question. You can enroll at [email or web address] or register during your next office visit. You have been discharged from [facility], Patient Care Unit: PANU. If you have any questions regarding these instructions after you leave, please call us and we will be happy to assist you. [facility] Your Care Team Attending Physician Russel ARMENTA, Joseph Moreno Consulting Providers Arti Machuca MD Discharging Providers Conrado Valencia MD Reason for Admission TEMPORAL ARTERITS RIGHTTEMPORAL ARTERY BX RIGHT Tests Performed Below is a partial list of the tests performed during your hospitalization. You may have had other tests and procedures not included in this list. Please discuss all test results with your provider. Primary Care Provider Crystal Vera MD Advance Directive Health Care Proxy on File Yes - Health Care Proxy Yes - MOLST Discharge Vitals Temperature: 98.7 DegF Weight: 96.4 kg Pulse Rate: 84 bpm ?? Respiratory Rate: 22 br/min ?? Systolic Blood Pressure:??165 mm Hg??High ?? Diastolic Blood Pressure: 77 mm Hg ?? Oxygen Saturation: 98 % ?? Studies Pending All tests and labs ordered during this hospital stay have been completed unless listed below. Please discuss all pending results with your provider listed above in these instructions. ?? No incomplete studies found What to do next Instructions From Your Doctor You can shower starting tomorrow morning Please take Tylenol??over the counter for pain control you can resume all of your normal home medications ?? Discharge Orders You Need to Schedule the Following Appointments Follow Up with??Russel ARMENTA, Joseph Moreno When:??Only if needed Why: You can follow up in 2-3 weeks for post operative check OR if you have no issues or questions can see your primary care doctor. Use the number above if??you would like an appointment?? Where: [address] [place] [address] [place] [address]- Discharge Medications MIKE TAYLOR :1935 Visit Date:02/09/2023 Medications: Please continue your medications until treatment is completed or stopped by your provider. Medications not listed below should be discontinued. Discuss any questions related to medications with your provider. What How Much When Instructions Next Dose Unchanged Ascorbic Acid (Vitamin C 500 mg oral tablet) 1 tab(s) Oral Daily as prescribed Unchanged Atorvastatin (atorvastatin 80 mg oral tablet) 1 tab(s) Oral Daily Duration: 30 Days as prescribed Unchanged Carvedilol (Coreg 25 mg oral tablet) 25 Milligram Oral Twice a day Duration: 30 Days as prescribed Unchanged Chlorthalidone (chlorthalidone 25 mg oral tablet) 1 tab(s) Oral Daily Duration: 30 Days as prescribed Unchanged Docusate-Senna (Senna Plus 50 mg-8.6 mg oral tablet) 1-2 tablet Oral Daily at Bedtime as needed ?? as prescribed Unchanged Ferrous Sulfate (ferrous sulfate 325 mg oral enteric coated tablet) 1 tab(s) Oral Daily as prescribed Unchanged fluticasone-vilanterol (Breo Ellipta 200 mcg-25 mcg/ inh inhalation powder) 1 puff(s) Inhalation Daily as prescribed Unchanged Losartan (losartan 100 mg oral tablet) 1 tab(s) Oral Daily Duration: 30 Days Bubble Packing ?? as prescribed Unchanged Miscellaneous Rx (VITAMIN B-12 TAB 1000MCG) 1,000 Microgram Oral Daily as prescribed Unchanged Multivitamin With Minerals (Cerovite Senior Therapeutic Multiple Vitamins with Minerals oral tablet) 1 tab(s) Oral Daily Duration: 30 Days as prescribed Unchanged Pantoprazole (pantoprazole 40 mg oral delayed release tablet) 1 tab(s) Oral Daily as prescribed Unchanged rivaroxaban (Xarelto 20 mg oral tablet) 1 tab(s) Oral Daily before dinner as prescribed Unchanged Tamsulosin (tamsulosin 0.4 mg oral capsule) 1 capsule Oral Daily as prescribed Unchanged Verapamil (verapamil 180 mg oral capsule, extended release) 1 capsule Oral Daily Duration: 30 Days Bubble Packing ?? as prescribed Test Results Below is a partial list of the most recent Laboratory test results done prior to this discharge. You may have had other tests and procedures not included in this list. Please discuss all test resultswith your provider. Allergies (NKA means No Known Allergies) Lipitor??(Body Aches) apixaban Problems Active Problems??(22) Atrial fibrillation?? BPH (benign prostatic hyperplasia)?? CAD in [place] artery?? Chronic pain?? Complex sleep apnea syndrome?? COPD without exacerbation?? De Quervain's tenosynovitis?? GERD (gastroesophageal reflux disease)?? Hyperlipidemia NOS?? Hypertension?? Intermittent right upper quadrant abdominal discomfort?? Lumbar facet joint pain?? MGUS (monoclonal gammopathy of unknown significance)?? NM (myocardial infarction)?? Morbid obesity(HCC)?? OA (osteoarthritis) of hip?? Obese class II?? Obstructive sleep apnea?? Stroke/cerebrovascular accident?? Tonsillectomy without Adenoidectomy?? Total Knee Replacement?? Treatment-emergent central sleep apnea?? Education Materials Below is the list of Educational Leaflet Providered with your Discharge Instructions. Surgery Medical Daystay Surgical Overnight Discharge Instructions?? Incision Care?? Valuables and Belongings I fully understand and agree that [facility] accepts no responsibility for all my personal property including clothing, toilet articles, radios, jewelry, dentures, hearing aids, rings, money, or any other property that is in my possession or is brought to me after admission. I understand certain valuables may be placed in a hospital safe for a short period of time. I understand that the hospital is not liable for loss or damage due to accident, fire, or other natural occurrence while said property is in the safe. I accept full responsibility for any personal property that I keep with me, and will not hold the hospital responsible in case of loss or disappearance. I acknowledge that i have been encouraged to send valuables and belongings home. ?? Review of Valuable and Belonging List: With patient Disposition of Belongings: Valuables Locked Possessions released to: to pacu Date for Pt to Sign Valuables/Belongings: 02/09/23 11:15:00 ?? Valuables & Belongings ?? Clothes Electronic devices Jewelry Monetary Items Personal devices Miscellaneous Medications (Valuables) Valuables at Bedside Jacket, Pants, Shirt, Shoes, Undergarments, Other: hat ?? Watch ?? Glasses, Wheelchair ? Valuables Sent Home ? Valuables Sent to Security ? Other Discharge Information ? Pulmonary Rehab Status?? Pulmonary Rehab Discharge Status?? Respiratory Rate: 22 br/min ? Common Emergency Awareness Tips IS IT A STROKE? Act FAST and Check for these signs: FACE Does the face look uneven? ARM Does one arm drift down? SPEECH Does their speech sound strange? TIME Call at any sign of stroke ?? Heart Attack Signs Chest discomfort: Most heart attacks involve discomfort in the center of the chest and lasts more than a few minutes, or goes away and comes back. It can feel like uncomfortable pressure, squeezing, fullness or pain. Discomfort in upper body: Symptoms can include pain or discomfort in one or both arms, back, neck, jaw or stomach. Shortness of breath: With or without discomfort. Other signs: Breaking out in a cold sweat, nausea, or lightheaded. Remember, MINUTES DO MATTER. If you experience any of these heart attack warning signs, call to get immediate medical attention! ?? Smoking can increase your chances of developing chronic health problems and can cause harmful effects to other family members in your house. If you smoke, you are strongly encouraged to quit. Please call [facility] at [phone] or [phone] ([phone]) or log in to [email or web address] for referrals to smoking cessation programs. ?? 988 Suicide & Crisis Lifeline is available 15/09 if you or someone you know needs to find a reason to keep living. By calling 548 you'll be connected to a skilled, trained counselor at a crisis center in your area. INPATIENT DISCHARGE INSTRUCTIONS SIGNATURE PAGE MIKE TAYLOR Location:[facility] Registration Date and Time:02/09/2023 09:30 EST Primary Care Physician: Crystal Vera MD, Attending Physician: Russel ARMENTA, Joseph Moreno, I MIKE TAYLOR, have received the above patient education materials/instructions and have verbalized understanding. If ambulance or transport services are being used I further acknowledge being given a choice of service. ?? If you need to contact me, please call me at this number: . Patient/Industrial Maintenance Mechanic Name: Patient/Industrial Maintenance Mechanic Signature: Relationship to Patient: Witness Name/Signature: Date: * Humberto Padgett: PERFORM Event Display: Patient Education Leaflets Authored Date: [id number] Surgery Medical Daystay Surgical Overnight Discharge Instructions ?? 295 Medical Daystay/Surgical Overnight Discharge Instructions ? Since your coordination and judgment may be altered by medication and/or anesthesia, a responsible adult must drive you home from the hospital. ? If you have received medication for pain or sedation while under our care, you should not drive, operate machinery, drink alcohol, or sign any legal documents for 24 hours.?? You should have someone with you at home tonight. ? Remain at home the day of discharge.?? You may be up and about unless otherwise instructed by your physician. ? You may resume your daily prescription medication schedule.?? Any depressant medication should be avoided for 24 hours unless otherwise instructed by your surgeon or anesthesiologist. ? Call your physician for a follow-up appointment.? If you experience unusual or severe pain not relied by your pain medication, excessive bleedingor drainage, persistent nausea and vomiting, excessive swelling or redness, foul odor from incisionsite or fever over 100.6F, you need to call your physician. ? A follow-up phone call by a nurse will be made the day after your procedure.?? If you have stayed with us over night, you will not be receiving a follow-up phone call. ? Nausea and vomiting are a common side effect of prescription pain medication.?? We recommend that pills are not taken on an empty stomach.?? While taking any prescription pain medication you should not drive or drink alcohol. ? * Humberto Padgett: PERFORM Event Display: Patient Education Leaflets Authored Date: [id number] Incision Care ?? [address] Incision Care Reminder Keep all your follow-up visits. They let your healthcare provider make sure your incision is healing well. Keep in mind that there are many types of bandages, tapes, and supplies. Follow the specific instructions from your healthcare team. Ask for phone numbers to call if you need help. Healthcare provider phone number: ?? Home care Tips for home care include: ??? Always wash with soap and dry your hands before touching your incision. ??? Keep your incision clean and dry. Don't put creams or ointments on it unless directed by your healthcare team. ??? Don't do things that could cause dirt or sweat to get on your incision. ??? Don???t pick at scabs. They help protect the wound. ??? Keep your incision dry and out of water, as instructed by your healthcare team. Follow your provider's specific instructions on when to bathe orshower. You may be advised to take a sponge bath to prevent getting your incision wet. ??? If you're instructed to keep your incision out of water, follow your provider's instructions about the best way to keep your incision dry when bathing or showering. ??? Pat stitches dry if they get wet. Don???t rub. ??? Leave the bandage (dressing) in place until you're told to remove it or change it. Change it only as directed, using clean hands. ??? After the first 12 hours, change your dressing every 24 hours, or as directed by your provider. ??? Change your dressing if it gets wet or dirty. ?? Care for types of closures Follow these guidelines: ??? Stitches (sutures) or paola. Once you no longer need to keep these dry, clean the wound each day. First remove the bandage using clean hands. Then wash the area gently with soap and clean, running water. Finally, put on a new bandage. ??? Skin glue. Don???t put liquid, ointment, or cream on your wound while the glue is in place.??Don't do activities that cause heavy sweating. Protect the wound from sunlight. Don't scratch, rub, or pick at the glue. Don't put tape directly over the glue.??The glue should peel off in 5 to 10 days. ??? Surgical tape. Keep the area dry. If it gets wet, blotthe area dry with a clean towel. Surgical tape often falls off in 7 to 10 days. If it hasn't fallenoff after 10 days, contact your healthcare provider before taking it off yourself. If you're told to remove the tape,??put mineral oil or petroleum jelly on a cotton ball. Gently rub the tape until it's removed. ?? Changing your dressing Leave the dressing (bandage) in place until you're told to remove it or change it. Follow the instructions below unless told otherwise by your healthcare provider: ??? Always wash your hands before changing your dressing. ??? After the first??48 hours, the incision wound often will have sealed. If it has, follow your provider's directions. They may advise you to uncover the incision and leave it open to the air.??If the incision hasn't sealed, keep it covered. ??? Cover your incision only if your clothing is rubbing it or causing??irritation, or if it's still draining. ??? Change your dressing if it gets wet or dirty. ?? Follow-up care Follow up with your healthcare provider to ask how long stitches or paola should be left in place. Return for stitch or staple removal as directed. If dissolving stitches were used in an area such as your mouth, these may not need to be removed. They should fall out or dissolve on their own. If tape closures haven't fallen off on their own, remove them yourself when your provider advises. If??skin glue was used, the glue will wear off by itself. ?? When to call your healthcare provider Call your healthcare provider if you have any of these: ??? Pain, redness, swelling, or bleeding that gets worse ??? Smelly fluid from the incision, or changes in color of the drainage from the incision ??? Fever of 100.4??F ( 38??C) or higher, or as advised ??? Shaking or chills ??? Upset stomach (nausea) or vomiting that doesn't go away ??? Numbness, coldness, or tingling around the incision ??? Changes in skin color around the incision ??? The wound opens ??? Stitches that pull apart ??? Paola that fall out ??? Surgical tape that falls off before 7 days ?? Last Reviewed Date: 2020 ?? 9043-4241 [employer]. All rights reserved. This information is not intended as a substitute for professional medical care. Always follow your healthcare professional's instructions. ?? Patient Care team information Care Team Personnel Name: Raquel Carlos RN Position: [facility] RN Member Role: Primary Care Nurse Name: Crystal Vera MD Position: [facility] Physician - Primary Care Member Role: PCP Address: Address: [address] [place] [address] [[email or web address] Name: Christelle Chamberlain RN Position: [facility] RN Member Role: Primary Care Nurse Name: Arti Nava RN Position: [facility] RN Member Role: Primary Care Nurse Name: Kimmie Montague RN Position: [facility] RN Member Role: Primary Care Nurse Name: Irene Schwarz RN Position: [facility] RN Member Role: Primary Care Nurse Name: Karmen Fajardo RN Position: [facility] Hospital Cracking Unit Operator Member Role: Primary Care Nurse Care Team Related Persons Name: AGGIE TAYLOR Address: [address] [address]
--- OUTSIDE RECORDS SUMMARY | 2023-08-30 01:41 | XMS_ITS | Continuity of Care Document ---
Author Organization [facility] Address [address] [place] [address] Dr [address] [place] [address]- Care Team Providers Care Furrier Shop Supervisor Name Role Phone Crystal Vera MD Primary Care Physician Encounter [facility] Date(s): 07/22/23 - 08/21/[address] [place] [address]- Attending Physician: AdmLe pulido Admitting Physician: Admtr, [...] Refills, Maintenance, Tablet, Route to Pharmacy Electronically, [id number], [id number] Start Date: 12/05/16 Stop [...] Maintenance, 12/05/16 9:23:00, Route to Pharmacy Electronically, [id number], [id number] Start Date: 12/05/16 Stop Date: 11/30/17 Status: [...] Start Date: 11/17/19 Status: Ordered Potassium Chloride (Dgy-Kkkd-Lrm 10) 10 mEq oral tablet, extended release [...] 09/10/16 Status: Ordered verapamil 120 mg oral tablet, extended release See Instructions, TAKE 1 TABLET BY MOUTH DAILY, # 28 tablet, 11 Refills, Maintenance, 07/24/23 12:58:00 EDT, [facility], 158, cm, 05/26/23 10:47:00 EDT, Height, 93.8, kg, 04/06/23 10:35:00 EST, Dry Weight Start Date: 07/24/23 Status: Ordered VITAMIN B-12 TAB 1000MCG VITAMIN [...] Active Chronic pain Confirmed Active CAD in [place] artery Confirmed Active De Quervain's tenosynovitis Confirmed Active GERD (gastroesophageal reflux disease) Confirmed Active 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 [place] (myocardial infarction) 1 Confirmed Active Obstructive sleep [...] years ago; entered on: 01/13/22 Sex Male Cardiology * Event Display: Cardiology Office Note, Non- Authored Date: * Event Display: [employer] Cardiac Compass Authored Date: * Event Display: Cardiology Office Note, Non- Authored Date: * Event Display: Device Interrogation Scans Authored Date: * Event Display: Cardiology Office Note, Non- Authored Date: Patient Care team information Care Team Personnel Name: Raquel Carlos RN Position: [facility] SN RN Member Role: Primary Care Nurse Name: Crystal Vera MD Position: [facility] Physician - Primary Care Member Role: PCP Address: Address: [address] [place] [address]- Name: Sofiya Ann RN Position: [facility] RN Member Role: Primary Care Nurse Name: Christelle Chamberlain RN Position: [facility] RN Member Role: Primary Care Nurse Name: Arti Nava RN Position: [facility] RN Member Role: Primary Care Nurse Name: Kimmie Montague RN Position: [facility] RN Member Role: Primary Care Nurse Name: Irene Schwarz RN Position: [facility] RN Member Role: Primary Care Nurse Name: Karmen Fajardo RN Position: [facility] Shopping Centre Manager Member Role: Primary Care Nurse Care Team Related Persons Name: AGGIE TAYLOR Address: [address] [address]
--- OUTSIDE RECORDS SUMMARY | 2023-08-30 01:41 | XMS_ITS | Continuity of Care Document ---
Author Organization [facility] Address [address] [address]- Care Team Providers Care Principal Administrative Clerk Name Role Phone Crystal Vera MD Primary Care Physician [facility] [facility] Date(s): 07/27/23 - 08/03/23 [facility] [address] [address]- Attending Physician: Shirley Mancilla Admitting Physician: Shirley Mancilla Referring Physician: Shirley Mancilla Allergies, Adverse Reactions, Alerts Substance Reaction Severity [...] Refills, Maintenance, Tablet, Route to Pharmacy Electronically, [id number], [id number] Start Date: 12/05/16 Stop [...] Maintenance, 12/05/16 9:23:00, Route to Pharmacy Electronically, [id number], [id number] Start Date: 12/05/16 Stop Date: 11/30/17 Status: [...] Start Date: 11/17/19 Status: Ordered Potassium Chloride (Ytv-Swnz-Qws 10) 10 mEq oral tablet, extended release [...] Active Chronic pain Confirmed Active CAD in [place] artery Confirmed Active De Quervain's tenosynovitis Confirmed Active GERD (gastroesophageal reflux disease) Confirmed Active 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 [place] (myocardial infarction) 1 Confirmed Active Obstructive sleep [...] Team Personnel Name: Raquel Carlos RN Position: [facility] RN Member Role: Primary Care Nurse Name: Crystal Vera MD Position: [facility] Physician - Primary Care Member Role: PCP Address: Address: [address] [place] [address]- Name: Sofiya Ann RN Position: [facility] RN Member Role: Primary Care Nurse Name: Christelle Chamberlain RN Position: [facility] RN Member Role: Primary Care Nurse Name: Arti Nava RN Position: [facility] RN Member Role: Primary Care Nurse Name: Kimmie Montague RN Position: [facility] RN Member Role: Primary Care Nurse Name: Irene Schwarz RN Position: [facility] RN Member Role: Primary Care Nurse Name: Karmen Fajardo RN Position: [facility] Hospital Laborer Rags Member Role: Primary Care Nurse Care Team Related Persons Name: AGGIE TAYLOR Address: home [address] [place] [address]
--- OUTSIDE RECORDS SUMMARY | 2023-08-30 01:41 | XMS_ITS | Continuity of Care Document ---
Author Organization [facility] Address [address] [place] [address]- Care Team Providers Care Chemical Maker Name Role Phone Not on Staff, PCP Primary Care Physician Unavail able Encounter [facility] Date(s): 04/07/23 - 04/08/[address] [address]- Encounter Diagnosis Dyspnea on exertion(Final) - 04/07/23 Congestive heart failure(Final) - 04/07/23 Discharge Disposition: A-D/C Home Attending Physician: Josh Jarquni MD Admitting Physician: Josh Jarquin MD Referring Physician: Not on Staff, Referring [...] Refills, Maintenance, Tablet, Route to Pharmacy Electronically, [id number], [id number] Start Date: 12/05/16 Stop [...] Maintenance, 12/05/16 9:23:00, Route to Pharmacy Electronically, [id number], [id number] Start Date: 12/05/16 Stop Date: 11/30/17 Status: [...] Start Date: 11/17/19 Status: Ordered Potassium Chloride (Naj-Vpvb-Asz 10) 10 mEq oral tablet, extended release [...] Active Chronic pain Confirmed Active CAD in [place] artery Confirmed Active De Quervain's tenosynovitis Confirmed Active GERD (gastroesophageal reflux disease) Confirmed Active 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 Experiencing SOB with exertion.; Reason: Other:; Shortness of Breath, Fever; Clinical Question(s): Pneumonia; Order Comment: Blood work being done. -OS 04 07 2023 12:09:32 EST COMPARISON: 03/16/2023 FINDINGS: LINES AND TUBES: Dual-lead left subclavian pacer/AICD wires are intact. LUNGS AND PLEURA: Central vascular congestion is slightly improved. Mild basilar atelectasis. Upper lungs are otherwise clear with no consolidation. No pleural effusion. No pneumothorax. HEART, MEDIASTINUM AND MARTIN: Heart is at the upper limits of normal for size. Aorta is tortuous and partially calcified. BONES AND SOFT TISSUES: No acute abnormality. Degenerative changes at the right shoulder joint similar to prior. IMPRESSION: Mild bibasilar atelectasis and prominent central vascular markings which are improved. No edema or effusions. No pneumonia. WSN: [id number] Ordering Physician: Chance Prakash Dictated By: Josh Corbett MD Dictated Date/Time: 04/07/23 12:41 p Reviewed By: Josh Corbett MD Signed By: Josh Corbett MD Signed Date/Time: 04/07/23 12:41 pm Transcribed By: RADU Transcribed Date/Time: 04/07/23 12:39 pm Vital Signs Most recent to oldest [Reference Range]: 1 2 3 Oxygen Saturation [94-100 %] 100 % (04/08/23 1:17 AM) 99 % (04/07/23 11:19 PM) 99 % (04/07/23 6:09 PM) Pulse Rate [55-90 bpm] 72 bpm (04/08/23 1:17 AM) 72 bpm (04/07/23 11:19 PM) 72 bpm (04/07/23 6:09 PM) Blood Pressure [90-138/55-84 mm Hg] 186/84mm Hg *H* (04/08/23 1:17 AM) 174/86mm Hg *H* (04/07/23 11:19 PM) 142/99mm Hg *H* (04/07/23 6:09 PM) Respiratory Rate [16-30 br/min] 18 br/min (04/08/23 1:17 AM) 18 br/min (04/07/23 11:19 PM) 18 br/min (04/07/23 6:09 PM) Temperature [96.8-100.4 DegF] 98.8 DegF (04/07/23 11:19 PM) 98.3 DegF (04/07/23 11:29 AM) Mode of Delivery (Oxygen) Room air (04/08/23 1:17 AM) Room air (04/07/23 11:19 PM) Room air (04/07/23 6:09 PM) Blood pressure sites Arm, left (04/08/23 1:17 AM) Temperature Route Oral (04/07/23 11:19 PM) Oral (04/07/23 11:29 AM) Social History Social History Type Response Smoking Status Former smoker, quit more than 30 days ago; Other: Quit Over 40 years ago; entered on: 01/13/22 Sex Male Note * Lis Mcmahon MD: PERFORM Event Display: Patient Education Leaflets Authored Date: [id number] Shortness of Breath (Dyspnea) ?? [id number] Shortness of Breath (Dyspnea) Shortness of breath is the feeling that you can't catch your breath or get enough air. It's also known as dyspnea. Dyspnea can be caused by many different conditions. They include: ??? Acute asthma attack ??? Worsening of chronic lung diseases such as chronic bronchitis and emphysema (COPD) ??? Heart failure. This is when weak heart muscle causes extra fluid to collect in the lungs. ??? Panic attacks or anxiety. Fear can cause rapid breathing (hyperventilation). ??? Pneumonia, or an infection in the lung tissue ??? Exposure to toxic substances, fumes, smoke, or certain medicines ??? Blood clot in the lung (pulmonary embolism). This is often from a piece of blood clot in adeep vein of the leg (deep vein thrombosis) that breaks off and travels to the lungs. ??? Heart attack or heart-related chest pain (angina) ??? Anemia ??? Collapsed lung (pneumothorax) ??? Dehydration ??? Based on your visit today, the exact cause of your shortness of breath is not certain. Your tests don???t show any of the serious causes of dyspnea. You may need other tests to find out if you have aserious problem. It???s important to watch for any new symptoms or symptoms that get worse. Follow up with your healthcare provider as directed. Home care Follow these tips to take care of yourself at home: ??? When your symptoms are better, go back to your usual activities. ??? If you smoke, you should stop. Join a quit-smoking program or ask your healthcare provider for help. ??? Eat a healthy diet and get plenty of sleep. ??? Get regular exercise.Talk with your healthcare provider before starting to exercise, especially if you have other medical problems. ??? Discuss with your healthcare provider about cutting down on the amount of caffeine and stimulants you consume. ?? Follow-up care Follow up with your healthcare provider, or as advised. If tests were done, you will be told if your treatment needs to be changed. You can call as directed for the results. If an X-ray was taken, you will be told of any new findings that may affect your care. ?? Call 911 Shortness of breath may be a sign of a serious medical problem. For example, it may be a problem with your heart or lungs. Call 911 if you have worsening shortness of breath or trouble breathing, especially with any of the symptoms below: ??? Shortness of breath or wheezing ??? Confusion or difficulty waking ??? Fainting or loss of consciousness ??? Fast or irregular heartbeat ??? Coughing up blood ??? Unusual pain in your chest, arm, shoulder, neck, or upper back ??? Unusual sweating ??? Feeling of doom ??? Lips or skin looks blue, purple, or [place] in color ??? Feel dizzy ?? When to seek medical advice Call your healthcare provider right away if any of these occur: ??? Redness, pain or swelling in your leg, arm, or other body area ??? Swelling in both legs or ankles ??? Fast weight gain ??? Weakness ??? Fever of 100.4??F (38??C) or higher, or as directed by your healthcare provider ?? Last Reviewed Date: 2021 ?? [id number] [employer]. All rights reserved. This information is not intended as a substitute for professional medical care. Always follow your healthcare professional's instructions. ?? Patient Care team information Care Team Personnel Name: Nickie Parker RN Position: [facility] RN Member Role: Primary Care Nurse Name: Raquel Carlos RN Position: [facility] RN Member Role: Primary Care Nurse Name: Sofiya Ann RN Position: [facility] RN Member Role: Primary Care Nurse Name: Christelle Chamberlain RN Position: [facility] RN Member Role: Primary Care Nurse Name: Not on Staff, PCP Position: [facility] Physician (General Medicine) Member Role: PCP Name: Arti Nava RN Position: [facility] RN Member Role: Primary Care Nurse Name: Kimmie Montague RN Position: [facility] RN Member Role: Primary Care Nurse Name: Irene Schwarz RN Position: [facility] RN Member Role: Primary Care Nurse Name: Karmen Fajardo RN Position: [facility] Hospital Rod Tape Operator Member Role: Primary Care Nurse Care Team Related Persons Name: AGGIE TAYLOR Address: home [address] [place] [address]
--- OUTSIDE RECORDS SUMMARY | 2023-08-30 01:42 | XMS_ITS | Continuity of Care Document ---
Author Organization [facility] Address [address] [place] [address] [address] [place] [address]- Care Team Providers Care Embryology Teacher Name Role Phone Not on Staff, PCP Primary Care Physician Unavail able Encounter [facility] Date(s): 04/06/23 - 04/13/[address] [place] [address]- Attending Physician: Alexis ARMENTA, Joseph Allergies, Adverse Reactions, Alerts Substance Reaction Severity [...] Refills, Maintenance, Tablet, Route to Pharmacy Electronically, [id number], [facility] Start Date: 12/05/16 Stop [...] Maintenance, 12/05/16 9:23:00, Route to Pharmacy Electronically, [id number], [id number] Start Date: 12/05/16 Stop Date: 11/30/17 Status: [...] Start Date: 11/17/19 Status: Ordered Potassium Chloride (Ixy-Ykfj-Bgo 10) 10 mEq oral tablet, extended release [...] Active Chronic pain Confirmed Active CAD in [place] artery Confirmed Active De Quervain's tenosynovitis Confirmed Active GERD (gastroesophageal reflux disease) Confirmed Active 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 [place] (myocardial infarction) 1 Confirmed Active Obstructive sleep [...] oldest [Reference Range]: 1 Height 158 cm (04/06/23 10:35 AM) Weight 93.8 kg (04/06/23 10:35 AM) Oxygen Saturation [94-100 %] 97 % (04/06/23 10:35 AM) Pulse Rate [55-90 bpm] 60 bpm (04/06/23 10:35 AM) Body Mass Index [18.5-24.99 kg/m2] 37.57 kg/m2 *>HHI* (04/06/23 10:35 AM) Blood Pressure [90-138/55-84 mm Hg] 112/ 73mm Hg (04/06/23 10:35 AM) Mode of Delivery (Oxygen) Room air (04/06/23 10:35 AM) Blood pressure sites Arm, right (04/06/23 10:35 AM) Dry Weight 93.8 kg (04/06/23 10:35 AM) Weight Obtained Via Patient/family state d (04/06/23 10:35 AM) Dry Weight Obtained Via Patient/family s tated (04/06/23 10:35 AM) Social History Social History Type Response Smoking Status Former smoker, quit more than 30 days ago; Other: Quit Over 40 years ago; entered on: 01/13/22 Sex Male Patient Care team information Care Team Personnel Name: Nickie Parker RN Position: [facility] RN Member Role: Primary Care Nurse Name: Raquel Carols RN Position: [facility] RN Member Role: Primary Care Nurse Name: Sofiya Ann RN Position: [facility] RN Member Role: Primary Care Nurse Name: Christelle Chamberlain RN Position: S RN Member Role: Primary Care Nurse Name: Not on Staff, PCP Position: [facility] Physician (General Medicine) Member Role: PCP Name: Arti Nava RN Position: [facility] RN Member Role: Primary Care Nurse Name: Kimmie Montague RN Position: [facility] RN Member Role: Primary Care Nurse Name: Irene Schwarz RN Position: [facility] RN Member Role: Primary Care Nurse Name: Karmen Fajardo RN Position: [facility] Warehouse Administrative Assistant Member Role: Primary Care Nurse Care Team Related Persons Name: AGGIE TAYLOR Address: [address] [address]
--- OUTSIDE RECORDS SUMMARY | 2023-08-30 01:42 | XMS_ITS | Continuity of Care Document ---
Author Organization [facility] Address [address] [place] [address] [address] [place] [address]- Care Team Providers Care All Around Gear Machine Operator Name Role Phone Crystal Vera MD Primary Care Physician Encounter [facility] Date(s): 04/27/23 - 05/27/[address] [place] [address]- Allergies, Adverse Reactions, Alerts Substance Reaction Severity [...] Refills, Maintenance, Tablet, Route to Pharmacy Electronically, [id number], [id number] Start Date: 12/05/16 Stop [...] Maintenance, 12/05/16 9:23:00, Route to Pharmacy Electronically, [id number], [id number] Start Date: 12/05/16 Stop Date: 11/30/17 Status: [...] Start Date: 11/17/19 Status: Ordered Potassium Chloride (Ccm-Qbie-Mar 10) 10 mEq oral tablet, extended release [...] pain Confirmed Active CAD in [place] artery Confirmed Active De Quervain's tenosynovitis Confirmed Active GERD (gastroesophageal reflux disease) Confirmed Active 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 RN Member Role: Primary Care Nurse Name: Crystal Vera MD Position: [facility] Physician - Primary Care Member Role: PCP Address: Address: [address] [place] [address]- Name: Sofiya Ann RN Position: [facility] RN Member Role: Primary Care Nurse Name: Christelle Chamberlain RN Position: [facility] RN Member Role: Primary Care Nurse Name: Arti Nava RN Position: [facility] RN Member Role: Primary Care Nurse Name: Kimmie Montague RN Position: [facility] RN Member Role: Primary Care Nurse Name: Irene Schwarz RN Position: [facility] RN Member Role: Primary Care Nurse Name: Karmen Fajardo RN Position: [facility] Hospital Marketing Operations Manager Member Role: Primary Care Nurse Care Team Related Persons Name: AGGIE TAYLOR Address: home [address] [place] [address]
--- OUTSIDE RECORDS SUMMARY | 2023-08-30 01:42 | XMS_ITS | Continuity of Care Document ---
Author Organization [facility] Address [address] [place] [address] [address] [place] [address]- Care Team Providers Care Wax Specialist Name Role Phone Crystal Vera MD Primary Care Physician Encounter [facility] Date(s): 04/06/23 - 05/06/[address] [place], [place] [address] Attending Physician: Admtr, Le Admitting Physician: Admtr, Ar8 Referring Physician: [...] Refills, Maintenance, Tablet, Route to Pharmacy Electronically, [id number], [id number] Start Date: 12/05/16 Stop [...] Maintenance, 12/05/16 9:23:00, Route to Pharmacy Electronically, [id number], [id number] Start Date: 12/05/16 Stop Date: 11/30/17 Status: [...] Start Date: 11/17/19 Status: Ordered Potassium Chloride (Xhp-Jpkt-Pcs 10) 10 mEq oral tablet, extended release [...] Active Chronic pain Confirmed Active CAD in [place] artery Confirmed Active De Quervain's tenosynovitis Confirmed Active GERD (gastroesophageal reflux disease) Confirmed Active 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 [place] (myocardial infarction) 1 Confirmed Active Obstructive sleep [...] Team Personnel Name: Nickie Parker RN Position: [facility] RN Member Role: Primary Care Nurse Name: Raquel Carlos RN Position: [facility] RN Member Role: Primary Care Nurse Name: Crystal Vera MD Position: [facility] Physician - Primary Care Member Role: PCP Address: Address: [address] [place] [address]- Name: Sofiya Ann RN Position: [facility] RN Member Role: Primary Care Nurse Name: Christelle Chamberlain RN Position: [facility] RN Member Role: Primary Care Nurse Name: Arti Nava RN Position: [facility] RN Member Role: Primary Care Nurse Name: Kimmie Montague RN Position: [facility] RN Member Role: Primary Care Nurse Name: Irene Schwarz RN Position: [facility] RN Member Role: Primary Care Nurse Name: Karmen Fajardo RN Position: [facility] Hospital Senior Net Architect Member Role: Primary Care Nurse Care Team Related Persons Name: AGGIE TAYLOR Address: home [address] [place] [address]
--- OUTSIDE RECORDS SUMMARY | 2023-08-30 01:42 | XMS_ITS | Continuity of Care Document ---
Author Organization [facility] Address [address] [address]- Care Team Providers Care Battery Parts Assembler Name Role Phone Crystal Vera MD Primary Care Physician [place] [facility] [place]23 - 08/07/23 [facility] [address] [address]- Attending Physician: Shirley Mancilla Admitting Physician: Shirley [...] Refills, Maintenance, Tablet, Route to Pharmacy Electronically, [id number], [facility] Start Date: 12/05/16 Stop [...] Maintenance, 12/05/16 9:23:00, Route to Pharmacy Electronically, [id number], [id number] Start Date: 12/05/16 Stop Date: 11/30/17 Status: [...] Start Date: 11/17/19 Status: Ordered Potassium Chloride (Tqh-Dxin-Crw 10) 10 mEq oral tablet, extended release [...] Active Chronic pain Confirmed Active CAD in [place] artery Confirmed Active De Quervain's tenosynovitis Confirmed Active GERD (gastroesophageal reflux disease) Confirmed Active 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 Physician - Primary Care Member Role: PCP Address: Address: [address] [place] [address]- Name: Sofiya Ann RN Position: [facility] RN Member Role: Primary Care Nurse Name: Christelle Chamberlain RN Position: [facility] RN Member Role: Primary Care Nurse Name: Arti Nava RN Position: [facility] RN Member Role: Primary Care Nurse Name: Kimmie Montague RN Position: [facility] RN Member Role: Primary Care Nurse Name: Irene Schwarz RN Position: [facility] RN Member Role: Primary Care Nurse Name: Karmen Fajardo RN Position: [facility] Hospital Silo Operator Member Role: Primary Care Nurse Care Team Related Persons Name: AGGIE TAYLOR Address: home [address] [place] [address]
--- OUTSIDE RECORDS SUMMARY | 2023-08-30 01:42 | XMS_ITS | Continuity of Care Document ---
Author Organization [facility] As [facility] Address [address] [place] [address] [facility] [address] [place] [address]- Care Team Providers Care Fabric Cutter Name Role Phone Crystal Vera MD Primary Care Physician En[place] [facility] [place] [facility] [place] [id number] Date(s): 05/26/23 - 08/21/[address] [place] [address]- Attending Physician: Joseph Espinoza MD Allergies, Adverse Reactions, Alerts Substance Reaction [...] Refills, Maintenance, Tablet, Route to Pharmacy Electronically, [id number], [id number] Start Date: 12/05/16 Stop [...] Maintenance, 12/05/16 9:23:00, Route to Pharmacy Electronically, [id number], [id number] Start Date: 12/05/16 Stop Date: 11/30/17 Status: [...] Start Date: 11/17/19 Status: Ordered Potassium Chloride (Geh-Ngbd-Vyf 10) 10 mEq oral tablet, extended release [...] tablet, 11 Refills, Maintenance, 07/24/23 12:58:00 EDT, [facility], 158, cm, 05/26/23 10:47:00 EDT, Height, [...] Active Chronic pain Confirmed Active CAD in [place] artery Confirmed Active De Quervain's tenosynovitis Confirmed [...] Team Personnel Name: Raquel Carlos RN Position: [facility] RN Member Role: Primary Care Nurse Name: Crystal Vera MD Position: [facility] Physician - Primary Care Member Role: PCP Address: Address: [address] [place] [address]- Name: Sofiya Ann RN Position: [facility] RN Member Role: Primary Care Nurse Name: Christelle Chamberlain RN Position: [facility] RN Member Role: Primary Care Nurse Name: Arti Nava RN Position: [facility] RN Member Role: Primary Care Nurse Name: Kimmie Montague RN Position: [facility] RN Member Role: Primary Care Nurse Name: Irene Schwarz RN Position: [facility] RN Member Role: Primary Care Nurse Name: Karmen Fajardo RN Position: [facility] Hospital Software Configuration Specialist Member Role: Primary Care Nurse Care Team Related Persons Name: AGGIE TAYLOR Address: home [address] [address]
--- OUTSIDE RECORDS SUMMARY | 2023-08-30 01:42 | XMS_ITS | Continuity of Care Document ---
Author Organization [facility] Address [address] [address]- Care Team Providers Care Construction Stonemason Name Role Phone Crystal Vera MD Primary Care Physician [place] [facility] [place] Date(s): 04/20/23 - 04/27/23 [facility] [address] [address]- Attending Physician: Shirley Mancilla Admitting Physician: Shirley [...] Refills, Maintenance, Tablet, Route to Pharmacy Electronically, [id number], [id number] Start Date: 12/05/16 Stop [...] Maintenance, 12/05/16 9:23:00, Route to Pharmacy Electronically, [id number], [id number] Start Date: 12/05/16 Stop Date: 11/30/17 Status: [...] Start Date: 11/17/19 Status: Ordered Potassium Chloride (Txl-Unjj-Efj 10) 10 mEq oral tablet, extended release [...] Active Chronic pain Confirmed Active CAD in [place] artery Confirmed Active De Quervain's tenosynovitis Confirmed Active GERD (gastroesophageal reflux disease) Confirmed Active 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 [place] (myocardial infarction) 1 Confirmed Active Obstructive sleep [...] Team Personnel Name: Nickie Parker RN Position: [facility] RN Member Role: Primary Care Nurse Name: Raquel Carlos RN Position: [facility] RN Member Role: Primary Care Nurse Name: Crystal Vera MD Position: [facility] Physician - Primary Care Member Role: PCP Address: Address: [address] [place] [address]- Name: Sofiya Ann RN Position: [facility] RN Member Role: Primary Care Nurse Name: Christelle Chamberlain RN Position: [facility] RN Member Role: Primary Care Nurse Name: Arti Nava RN Position: [facility] RN Member Role: Primary Care Nurse Name: Kimmie Montague RN Position: [facility] RN Member Role: Primary Care Nurse Name: Irene Schwarz RN Position: [facility] RN Member Role: Primary Care Nurse Name: Karmen Fajardo RN Position: [facility] Hospital Decision Analyst Member Role: Primary Care Nurse Care Team Related Persons Name: AGGIE TAYLOR Address: home [address] [place] [id number]
--- OUTSIDE RECORDS SUMMARY | 2023-08-30 01:42 | XMS_ITS | Continuity of Care Document ---
Author Organization [facility] As [facility] Address [address] [place] [address] [address] [place] [address]- Care Team Providers Care Cook Chief Name Role Phone Not on Staff, PCP Primary Care Physician Unavail able Encounter [facility] Date(s): 04/08/23 - 04/15/[address] [place] [address]- Attending Physician: Alexis ARMENTA, Joseph Allergies, Adverse [...] Refills, Maintenance, Tablet, Route to Pharmacy Electronically, [id number], [id number] Start Date: 12/05/16 Stop [...] Maintenance, 12/05/16 9:23:00, Route to Pharmacy Electronically, [id number], [id number] Start Date: 12/05/16 Stop Date: 11/30/17 Status: [...] Start Date: 11/17/19 Status: Ordered Potassium Chloride (Ndg-Ioqi-Atb 10) 10 mEq oral tablet, extended release [...] Active Chronic pain Confirmed Active CAD in [place] artery Confirmed Active De Quervain's tenosynovitis Confirmed Active GERD (gastroesophageal reflux disease) Confirmed Active 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 [place] (myocardial infarction) 1 Confirmed Active Obstructive sleep [...] oldest [Reference Range]: 1 Height 158 cm (04/08/23 11:02 AM) Weight 93.63 kg (04/08/23 11:02 AM) Pulse Rate [55-90 bpm] 65 bpm (04/08/23 11:02 AM) Body Mass Index [18.5-24.99 kg/m2] 37.51 kg/m2 *>HHI* (04/08/23 11:02 AM) Blood Pressure [90-138/55-84 mm Hg] 99/6 2mm Hg (04/08/23 11:02 AM) Respiratory Rate [16-30 br/min] 18 br/mi n (04/08/23 11:02 AM) Temperature [96.8-100.4 DegF] 98.4 DegF (04/08/23 11:02 AM) Blood pressure sites Arm, right (04/08/23 11:02 AM) Temperature Route Temporal (04/08/23 11:02 AM) Weight Obtained Via Patient/family state d (04/08/23 11:02 AM) Social History Social History Type Response Smoking Status Former smoker, quit more than 30 days ago; Other: Quit Over 40 years ago; entered on: 01/13/22 Sex Male Patient Care team information Care Team Personnel Name: Nickie Parker RN Position: [facility] RN Member Role: Primary Care Nurse Name: Raquel Carlos RN Position: [facility] RN Member Role: Primary Care Nurse Name: Sofiya Ann RN Position: [facility] RN Member Role: Primary Care Nurse Name: Christelle Chamberlain RN Position: [facility] RN Member Role: Primary Care Nurse Name: Not on Staff, PCP Position: [facility] Physician (General Medicine) Member Role: PCP Name: Arti Nava RN Position: [facility] RN Member Role: Primary Care Nurse Name: Kimmie Montague RN Position: [facility] RN Member Role: Primary Care Nurse Name: Irene Schwarz RN Position: [facility] RN Member Role: Primary Care Nurse Name: Karmen Fajardo RN Position: [facility] Lead Sales Consultant Member Role: Primary Care Nurse Care Team Related Persons Name: AGGIE TAYLOR Address: [address] [address]
--- OUTSIDE RECORDS SUMMARY | 2023-08-30 01:42 | XMS_ITS | Continuity of Care Document ---
Author Organization [facility] ter Address [address] [place] [address]- Care Team Providers Care Yield Engineer Name Role Phone Crystal Vera MD Primary Care Physician Encounter [facility] Date(s): 03/05/23 - 03/06/[address] [address]- Discharge Disposition: A-D/C Home Attending Physician: Awilda Last MD Admitting Physician: Awilda Last MD Referring Physician: Not on Staff, Referring [...] Refills, Maintenance, Tablet, Route to Pharmacy Electronically, [id number], [facility] Start Date: 12/05/16 Stop [...] Maintenance, 12/05/16 9:25:33, Route to Pharmacy Electronically, [id number], [facility] Start Date: 12/05/16 Stop Date: 11/30/17 Status: Ordered Coreg 25 mg oral tablet 25 mg, By Mouth, 2 times a day, # 60 tablet, Refills 11, Tot. 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 [place] (myocardial infarction) 1 Confirmed Active Obese class [...] Exam Date Time Procedure Performing Provider Status 03/05/23 10:41 PM US Doppler Ext Lower Venous Left Temi Stewart; Auth (Verified) Notes: (US Doppler Ext Lower Venous Left) Reason For Exam: Pain in limb;Other: RESULT: US Doppler Ext Lower Venous Left US Doppler Ext Lower Venous Left Hx of Present Illness: pt with hx of HTN, compliant with meds but is having pressures of 200 100 athome, c o of ARGUETA; Reason: Other:; Pain in limb; Clinical Question(s): Thrombus COMPARISON: None IMAGING TECHNIQUE: Ultrasound of the veins from the groin through the calf was performed using grayscale, color, and spectral Doppler ultrasound assessing for complete compressibility and normal flowcharacteristics. FINDINGS: Common femoral vein: Patent. No thrombosis. Femoral vein: Patent. No thrombosis. Popliteal vein: Patent. No thrombosis. Gastrocnemius veins: The visualized portions are patent without evidence of thrombosis. Peroneal veins: The visualized portions are patent without evidence of thrombosis. Posterior tibial veins: The visualized portions are patent without evidence of thrombosis. Contralateral common femoral vein: Patent. No thrombosis. OTHER FINDINGS: IMPRESSION: No evidence of deep venous thrombosis. WSN: [id number] Ordering Physician: Aydee Crabtree Dictated By: Josh Corbett MD Dictated Date/Time: 03/05/23 10:47 p Reviewed By: Josh Corbett MD Signed By: Josh Corbett MD Signed Date/Time: 03/05/23 10:47 pm Transcribed By: RADU Transcribed Date/Time: 03/05/23 10:47 pm * Exam Date Time Procedure Performing Provider Status 03/05/23 8:13 PM Ankle Min 3 Views Left Van Nicholson ; Auth (Verified) Notes: (Ankle Min 3 Views Left) Reason For Exam: with Pain;Trauma RESULT: Ankle Min 3 Views Left Ankle Min 3 Views Left CLINICAL INDICATION: Hx of Present Illness: pt with hx of HTN, compliant with meds but is having pressures of 200 100 at home, c o of ARGUETA; Reason: Trauma; with Pain; Clinical Question(s): Fracture COMPARISONS: None TECHNIQUE: AP, lateral and stress views of the left ankle were obtained. FINDINGS: There is no fracture or dislocation. The ankle mortise is not widened. No retained foreign body is identified. Hindfoot midfoot alignment is normal. Vascular calcifications are incidentally noted. Small plantar heel spur. IMPRESSION: No fracture or dislocation. WSN: [id number] Ordering Physician: Aydee Crabtree Dictated By: Josh Corbett MD Dictated Date/Time: 03/05/23 8:27 pm Reviewed By: Josh Corbett MD Signed By: Josh Corbett MD Signed Date/Time: 03/05/23 8:27 pm Transcribed By: RADU Transcribed Date/Time: 03/05/23 8:25 pm Vital Signs Most recent to oldest [Reference Range]: 1 2 3 Oxygen Saturation [94-100 %] 97 % (03/06/23 4:45 AM) 98 % (03/06/23 2:56 AM) 96 % (03/06/23 12:13 AM) Pulse Rate [55-90 bpm] 80 bpm (03/06/23 4:45 AM) 80 bpm (03/06/23 2:56 AM) 79 bpm (03/06/23 12:13 AM) Blood Pressure [90-138/55-84 mm Hg] 192/81mm Hg *H* (03/06/23 4:45 AM) 189/82mm Hg *H* (03/06/23 2:56 AM) 181/66mm Hg *H* (03/06/23 12:13 AM) Respiratory Rate [16-30 br/min] 18 br/min (03/06/23 4:45 AM) 18 br/min (03/06/23 2:56 AM) 20 br/min (03/06/23 12:13 AM) Temperature [96.8-100.4 DegF] 97.8 DegF (03/06/23 12:13 AM) 98.2 DegF (03/05/23 6:47 PM) Mode of Delivery (Oxygen) Room air (03/06/23 4:45 AM) Room air (03/06/23 2:56 AM) Room air (03/06/23 12:13 AM) Blood pressure sites Arm, left (03/06/23 4:45 AM) Arm, left (03/06/23 2:56 AM) Arm, left (03/06/23 12:13 AM) Temperature Route Oral (03/06/23 12:13 AM) Oral (03/05/23 6:47 PM) Social History Social History Type Response Smoking Status Former smoker, quit more than 30 days ago; Other: Quit Over 40 years ago; entered on: 01/13/22 Sex Male Note * Sung Mcnulty MD: PERFORM Event Display: Patient Education Leaflets Authored Date: [id number] Leg Swelling in a Single Leg ?? [id number] Leg Swelling in a Single Leg Swelling of the arms, feet, ankles, and legs is called edema. It's caused by extra fluid collectingin the tissues. Because of gravity, extra fluid in the body settles to the lowest part. That's why the legs and feet are most affected. You have swelling in a single leg. Some of the causes for swelling in only 1 leg include: ??? Infection in the foot or leg ??? Muscle strain or tear in the affected leg ??? Blockage of the leg's lymphatic system ??? A Saldivar's cyst (located behind the knee) ??? Long-term problem with a vein not working well??(venous insufficiency) ??? Swollen, twisted vein in the leg (varicose veins) ???Insect bite or sting on the foot or leg ??? Injury or recent surgery on the foot or leg ??? Blood clot in a deep vein of the leg (deep vein thrombosis or DVT) ??? Inflammation of the joints of the lower leg Medical treatment will depend on what is causing your swelling. Home care Follow these guidelines when caring for yourself at home: ??? Don???t wear tight clothing. ??? Keepyour legs up while lying down or sitting. ??? Take any medicines as directed. ??? If infection, injury, or recent surgery is the cause of your swelling, stay off your legs as much as possible until your symptoms get better. ??? If you have venous insufficiency or varicose veins,??don???t sit or stem dryer maintainer 1 place for a long time. Take breaks and walk around every few hours. Talk with your healthcare provider about wearing support stockings to help reduce swelling during the day. ??? Wear compression stockings with your provider's approval. ?? Follow-up care Follow up with your healthcare provider as advised. ?? Call 911 Call 911 if any of these occur: ??? Shortness of breath or trouble breathing ??? Chest pain or discomfort ??? Coughing up blood ??? Fainting or loss of consciousness? When to get medical advice Call your healthcare provider right away if any of these occur: ??? Increased pain, swelling, warmth, or redness of the leg, ankle, or foot ??? Fever of 100.4??F (38??C) or higher, or as advised by your provider ??? Weakness or dizziness ??? Shaking chills ??? Drenching sweats ?? Last Reviewed Date: 2021 ?? [id number] [employer]. All rights reserved. This information is not intended as a substitute for professional medical care. Always follow your healthcare professional's instructions. ?? Patient Care team information Care Team Personnel Name: Raquel Carlos RN Position: [facility] RN Member Role: Primary Care Nurse Name: Crystal Vera MD Position: [facility] Physician - Primary Care Member Role: PCP Address: Address: [address] [place] [id number] Name: Christelle Chamberlain RN Position: [facility] RN Member Role: Primary Care Nurse Name: Arti Nava RN Position: [facility] RN Member Role: Primary Care Nurse Name: Kimmie Montague RN Position: [facility] RN Member Role: Primary Care Nurse Name: Irene Schwarz RN Position: [facility] RN Member Role: Primary Care Nurse Name: Karmen Fajardo RN Position: [facility] Hospital Entry Level Management Member Role: Primary Care Nurse Name: Awilda Last MD Position: [facility] ED Medicine MD Member Role: ED Attending Physician Address: Address: [address] [place] [address]- Name: Shavonne Kinsey Position: [facility] ED TA [facility] Name: Yordy RNAlejandra Position: [facility] ED RN W/OE and Tasks Member Role: Patient Care Provider Name: Sung Mcnulty MD Position: [facility] Resident Member Role: ED Resident Address: Address: [address] [place] [address]- Care Team Related Persons Name: AGGIE TAYLOR Address: home [address] [place] [address]
--- OUTSIDE RECORDS SUMMARY | 2023-08-30 01:42 | XMS_ITS | Continuity of Care Document ---
Author Organization [facility] Address [address] [place] [address] [place] [address]- Care Team Providers Care Finisher Map And Chart Name Role Phone Crystal Vera MD Primary Care Physician Encounter [facility] [place] Date(s): 04/30/23 - 06/14/[address] [place] [address]- Attending Physician: Not on Staff, Attending MD [...] Refills, Maintenance, Tablet, Route to Pharmacy Electronically, [id number], [id number] Start Date: 12/05/16 Stop [...] Maintenance, 12/05/16 9:23:00, Route to Pharmacy Electronically, [id number], [id number] Start Date: 12/05/16 Stop Date: 11/30/17 Status: [...] Start Date: 11/17/19 Status: Ordered Potassium Chloride (Xsk-Vwja-Hxe 10) 10 mEq oral tablet, extended release [...] Active Chronic pain Confirmed Active CAD in [place] artery Confirmed Active De Quervain's tenosynovitis Confirmed Active GERD (gastroesophageal reflux disease) Confirmed Active 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 [place] (myocardial infarction) 1 Confirmed Active Obstructive sleep [...] Team Personnel Name: Nickie Parker RN Position: [facility] RN Member Role: Primary Care Nurse Name: Raquel Carlos RN Position: [facility] RN Member Role: Primary Care Nurse Name: Crystal Vera MD Position: [facility] Physician - Primary Care Member Role: PCP Address: Address: [address] [place] [address]- Name: Sofiya Ann RN Position: [facility] RN Member Role: Primary Care Nurse Name: Christelle Chamberlain RN Position: [facility] RN Member Role: Primary Care Nurse Name: Arti Nava RN Position: [facility] RN Member Role: Primary Care Nurse Name: Kimmie Montague RN Position: [facility] RN Member Role: Primary Care Nurse Name: Irene Schwarz RN Position: [facility] RN Member Role: Primary Care Nurse Name: Karmen Fajardo RN Position: [facility] Hospital Natural Gas Technician Member Role: Primary Care Nurse Care Team Related Persons Name: AGGIE TAYLOR Address: [address] [address]
--- OUTSIDE RECORDS SUMMARY | 2023-08-30 01:42 | XMS_ITS | Continuity of Care Document ---
Author Organization [facility] Address [address] [address]- Care Team Providers Care Food Production Worker Name Role Phone Crystal Vera MD Primary Care Physician Encounter [facility] [place] Date(s): 04/20/23 - 05/20/23 [facility] [address] [address]- Attending Physician: Admtess, Le Admitting Physician: Admtr, [...] Refills, Maintenance, Tablet, Route to Pharmacy Electronically, [id number], [facility] Start Date: 12/05/16 Stop [...] Maintenance, 12/05/16 9:23:00, Route to Pharmacy Electronically, [id number], [id number] Start Date: 12/05/16 Stop Date: 11/30/17 Status: [...] Start Date: 11/17/19 Status: Ordered Potassium Chloride (Eux-Kmeq-Fut 10) 10 mEq oral tablet, extended release [...] Active Chronic pain Confirmed Active CAD in [place] artery Confirmed Active De Quervain's tenosynovitis Confirmed [...] Team Personnel Name: Nickie Parker RN Position: [facility] RN Member Role: Primary Care Nurse Name: Raquel Carlos RN Position: [facility] RN Member Role: Primary Care Nurse Name: Crystal Vera MD Position: [facility] Physician - Primary Care Member Role: PCP Address: Address: [address] [place] [address]- Name: Sofiya Ann RN Position: [facility] [...] Karmen Fajardo RN Position: [facility] Hospital Equal Opportunity Officer Member Role: Primary Care Nurse Care Team Related Persons Name: AGGIE TAYLOR Address: home [address] [place] [address]
--- OUTSIDE RECORDS SUMMARY | 2023-08-30 01:42 | XMS_ITS | Continuity of Care Document ---
Author Organization [facility] ter Address [address] [place] [address]- Care Team Providers Care Media Relations Manager Name Role Phone Crystal Vera MD Primary Care Physician [place] [facility] [place]): 03/16/23 - 03/18/[address] [address]- Encounter Diagnosis Dizziness(Final) - 03/16/23 Chest pain(Final) - 03/16/23 Shortness of breath(Final) - 03/16/23 Discharge Disposition: A-D/C Home Attending Physician: Aman Barber MD Admitting Physician: Valeriy Moser MD Referring Physician: Not on Staff, Referring [...] Note: VIS GIVEN VIS DATE 03/18/2011 Medications Acetaminophen Tablet 650 mg, Tablet, By Mouth, Every 4 hours, PRN for Pain , Mild, Temperature Greater than 100.5, Routine, 03/16/23 20:21:00 EST Start Date: 03/16/23 Stop Date: 03/18/23 Status: Discontinued Aspirin Low Dose 81 mg oral delayed release tablet 0 Refills, Maintenance, 03/16/23 20:25:00 EST, Partial fill upon patient request if the prescription is for a schedule II opioid drug. Start Date: 03/16/23 Status: Ordered atorvastatin 80 mg oral tablet 1 tablet = 80 mg, By Mouth, Daily, # 30 tablet, 11 Refills, Maintenance, Tablet, Route to Pharmacy Electronically, [id number], [id number] Start Date: 12/05/16 Stop [...] Coreg 25 mg oral tablet 25 mg, Tablet, By Mouth, Hold for: SBP <90 HR <55, 03/18/23 9:00:00 EST Start Date: 03/18/23 Stop Date: 03/18/23 Status: Completed Coreg 25 mg oral tablet 25 mg, By Mouth, 2 times a day, # 60 tablet, Refills 11, Tot. Refills 11, Maintenance, 12/05/16 9:23:00, Route to Pharmacy Electronically, [id number], [id number] Start Date: 12/05/16 Stop Date: 11/30/17 Status: [...] 03/18/23 11:33:00 EST, Route to Pharmacy Electronically, [facility], Partial fill upon patient request if the prescription is for a schedule II opioid... Start Date: 03/18/23 Status: Ordered losartan 25 mg oral tablet 25 mg, Tablet, By Mouth, 03/18/23 9:00:00 EST Start Date: 03/18/23 Stop Date: 03/18/23 Status: Completed losartan 25 mg oral tablet 0 Refills, [...] Start Date: 11/17/19 Status: Ordered Potassium Chloride ([id number] 10) 10 mEq oral tablet, extended release [...] Effective Dates Status H ealth Status Informant BPH (benign prostatic hyperplasia) Confirmed Active COPD without exacerbation Confirmed Active Chronic pain Confirmed Active CAD in [place] artery Confirmed Active De Quervain's tenosynovitis Confirmed Active GERD (gastroesophageal reflux disease) Confirmed Active 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 WI (myocardial infarction) 1 Confirmed Active Obstructive sleep [...] Exam Date Time Procedure Performing Provider Status 03/16/23 4:30 PM Chest 2 Views Frontal and Lat Van Nicholson; Auth (Verified) Notes: (Chest 2 Views Frontal and Lat) Reason For Exam: Shortness of Breath RESULT: Chest 2 Views Frontal and Lat Chest 2 Views Frontal and Lat INDICATION: Reason: Shortness of Breath; Clinical Question(s): Atelectasis; Order Comment: 03 16 2023 COMPARISON: 11/23/2019 FINDINGS: LINES AND TUBES: Interval placement of left-sided cardiac pacemaker with leads overlying the right atrium and right ventricle. LUNGS AND PLEURA: Interval development of mild pulmonary vascular congestion. No evidence of confluent airspace opacity or lung consolidation. Costophrenic sulci are maintained. No evidence of pneumothorax. HEART, MEDIASTINUM AND MARTIN: Cardiomediastinal silhouette is upper limits of normal in size allowing for AP technique. BONES AND SOFT TISSUES: Severe degenerative changes and bony remodeling at the right glenohumeral joint IMPRESSION: Interval cardiac pacemaker placement Mild pulmonary vascular congestion No evidence of lung consolidation or pleural effusion WSN: [id number] Ordering Physician: Boone Gaona Dictated By: Lazaro Garnett Jr, MD Dictated Date/Time: 03/16/23 4:34 pm Reviewed By: Lazaro Garnett Jr, MD Signed By: Lazaro Garnett Jr, MD Signed Date/Time: 03/16/23 4:34 pm Transcribed By: RADU Transcribed Date/Time: 03/16/23 4:32 pm Vital Signs Most recent to oldest [Reference Range]: 1 2 3 Height 158 cm (03/18/23 3:53 AM) 158 cm (03/17/23 10:54 PM) 158 cm (03/17/23 7:22 PM) Weight 93.4 kg (03/16/23 9:43 PM) Oxygen Saturation [94-100 %] 99 % (03/18/23 8:00 AM) 97 % (03/18/23 3:53 AM) 96 % (03/17/23 10:54 PM) Pulse Rate [55-90 bpm] 95 bpm *H* (03/18/23 9:40 AM) 95 bpm *H* (03/18/23 8:00 AM) 73 bpm (03/18/23 3:53 AM) Body Mass Index [18.5-24.99 kg/m2] 37.41 kg/m2 *>HHI* (03/16/23 9:43 PM) Blood Pressure [90-138/55-84 mm Hg] 129/89mm Hg (03/18/23 9:40 AM) 129/89mm Hg (03/18/23 9:40 AM) 129/89mm Hg (03/18/23 8:00 AM) Respiratory Rate [16-30 br/min] 18 br/min (03/18/23 8:00 AM) 18 br/min (03/18/23 3:53 AM) 18 br/min (03/18/23 12:44 AM) Temperature [96.8-100.4 DegF] 97.8 DegF (03/18/23 8:00 AM) 97.9 DegF (03/18/23 3:53 AM) 98.2 DegF (03/17/23 10:54 PM) Mode of Delivery (Oxygen) Room air (03/18/23 8:00 AM) Room air (03/18/23 3:53 AM) Room air (03/17/23 10:54 PM) Blood pressure sites Arm, right (03/18/23 8:00 AM) Arm, right (03/18/23 3:53 AM) Arm, right (03/17/23 10:54 PM) Temperature Route Oral (03/18/23 8:00 AM) Oral (03/18/23 3:53 AM) Oral (03/17/23 10:54 PM) Dry Weight 93.4 kg (03/16/23 9:43 PM) Social History Social History Type Response Smoking Status Former smoker, quit more than 30 days ago; Other: Quit Over 40 years ago; entered on: 01/13/22 Sex Male Admission evaluation note * Corrina ARMENTA, Jeanette Chávez: MODIFY Prasanna ARMENTA, Elaine: PERFORM, MODIFY Prasanna ARMENTA, Elaine: MODIFY, MODIFY Prasanna ARMENTA, Elaine: MODIFY, MODIFY Prasanna ARMENTA, Elaine: MODIFY, MODIFY Prasanna ARMENTA, Elaine: MODIFY Event Display: Admission Note Authored Date: [id number] Patient: ??PAL TAYLOR ? Age:??87 Years?Sex:??Male?:??1935?? Chief Complaint/Reason for Consultation Pt is coming from home developed ??global chest ??pain w/ dizziness/ shortness of ??breath. Pt has a ??Pacemaker in place. History of Present Illness Pal Taylor s a 87-year-old male with past medical history significant for Hypertensive heart disease with LVH, remote history of CAD, elevated LVOT gradient noted with Valsalva on prior echo (improved on recent echo), history of prior CVA, obstructive sleep apnea intolerant of CPAP, paroxysmal atrial fibrillation on Xarelto, benign prostatic hyperplasia, coronary artery disease, COPD, GERD,hypertension, hyperlipidemia, MGUS, CVA, WI, AICD who [facility] with shortness of breath and chest pain. ?? Patient reports he woke up this morning at around 6 AM??with a sudden onset of central chest discomfort and shortness of breath,??this lasted for few??minutes and resolved on its own, patient took his medicines??and fell back asleep.?? Patient was then awoken again at around 9 AM with similar??central chest discomfort??associated with difficulty breathing,??he sat up??and his breathing improved??and he subsequently went back to sleep.?? At around 11 AM patient was again woken??and at this pointhe felt??left-sided nonradiating, nonpleuritic, nonpositional, nonreproducible on palpation??sharp??chest discomfort.?? This pain was intermittent, lasted a few??minutes??and resolved on its own.?? It was associated with difficulty catching his breath and diaphoresis, patient denied any lightheadedness, dizziness,??palpitations, nausea, vomiting, syncopal episodes.?? At baseline patient is activeindependent of his ADLs and requires assistance for IADLs, has no limiting shortness of breath or chest pain with his daily routine, ambulates with the assistance of a walker.?? Patient??quit smoking??around 40 years ago prior to that he smoked 1 to 2 packs for around 30 years,??quit drinking alcohol around 30 years ago, denies any recreational drug use. ??Patient denies any family history of premature coronary artery disease or sudden cardiac . ?? Upon arrival to [facility] [place] patient was afebrile, hemodynamically stable, heart rate 60s to 80s, atrial fibrillation on telemetry, systolic blood pressure 120s to 130s over 80s diastolic, saturating appropriately on room air.?? Lab work done in the ED showed no leukocytosis, chronic stable normocytic anemia, normal platelets, electrolytes within normal limits with sodium 144, potassium 4.6 patient hadan elevated C-reactive protein at 2.4, initial high-sensitivity troponin T 43, NT proBNP 2305, TSH 3.59.?? EKG showing V paced rhythm at 65 bpm, normal axis, normal intervals, no acute ST segment T wave changes indicative of ischemia.?? Patient had a chest x-ray which showed mild pulmonary vascular congestion and no evidence of lung consolidation or pleural effusion.?? Patient was given 20 mg of IV Lasix in the ED and was admitted for new onset CHF exacerbation. ?? Prior Cardiac??Workup:?? Echo 2016: LV size normal, moderate septal thickening with no evidence of LVOT obstruction.?? LVEF 75 to 80%, no regional wall motion abnormalities.?? Grade 1- 2 mild to moderate diastolic dysfunctionwith impaired LV relaxation and increased LA pressure.?? RV normal size and function.?? No valvulardysfunction. ECG (05/04/2018): Sinus rhythm with first-degree AV block, right bundle branch block, possible priorlateral WI.?? 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 Permanent pacemaker placement at [place]??on March 2022 Review of Systems A full review of systems was completed and is otherwise negative except as mentioned in history of present illness. Objective Vital Signs?? Temperature: 98.2 DegF (03/16/23 23:28:00) Temperature Route: Oral (03/16/23 23:28:00) Pulse Rate: 83 bpm (03/16/23 23:28:00) Respiratory Rate: 18 br/min (03/16/23 23:28:00) Systolic Blood Pressure: 135 mm Hg (03/16/23:28:00) Diastolic Blood Pressure: 57 mm Hg (03/16/23 23:28:00) Blood pressure sites: Arm, left (03/16/23 23:28:00) Mean Arterial Pressure: 83 mm Hg (03/16/23 23:28:00) Pulse Pressure: 78 mm Hg (03/16/23 23:28:00) Oxygen Saturation: 96 % (03/16/23 23:28:00) Mode of Delivery (Oxygen): Room air (03/16/23 23:28:00) Early Warning Score: 0 (03/16/23 23:29:12) ? Physical Exam General:??No acute distress HEENT:??PERRLA, EOMI, moist mucus membranes Respiratory:??Mild rales right lower lung base Cardiovascular:??RRR, I/IV holosystolic murmur at??left lower sternal border, no JVD Abdomen:??Normal active bowel sounds, soft, non-tender, non-distended Musculoskeletal:??Moving all extremities normally, trace to +1 bilateral pedal edema Neurologic:??Alert & Oriented, No focal neurologic deficits Skin:??Warm and dry, No rashes or lesions Psych: Normal mood and affect? Assessment/Plan Diagnoses Chest pain ??(R07.9) Dizziness ??(R42) Shortness of breath ??(R06.02) 1. ??Primary hypertension ??(I10) 2. ??Hyperlipidemia, unspecified hyperlipidemia type ??(E78.5) 3. ??CAD in [place] artery ??(I25.10) 4. ??Severe obesity (BMI 35.0-39.9) with comorbidity ??(E66.01) 5. ??MGUS (monoclonal gammopathy of unknown significance) ??(D47.2) 6. ??COPD without exacerbation ??(J44.9) 7. ??Obstructive sleep apnea ??(G47.33) ?? 87-year-old male with past medical history significant for Hypertensive heart disease with LVH, remote history of CAD, elevated LVOT gradient noted with Valsalva on prior echo (improved on recent echo), history of prior CVA, obstructive sleep apnea intolerant of CPAP, paroxysmal atrial fibrillationon Xarelto, benign prostatic hyperplasia, coronary artery disease, COPD, GERD, hypertension, hyperlipidemia, MGUS, CVA, WI, AICD who presents to [facility] emergency department 10/25/2019 with shortness of breath and chest pain admitted for CHF exacerbation. ?? Shortness of breath Atrial fibrillation s/p PPM Remote history of CAD Hypertensive heart disease with LVH Heart failure with preserved ejection fraction Functional status -??NYHA class II, AHA stage C Current medication -??Coreg 25 mg twice daily, losartan 25 mg daily, verapamil 180 mg daily,??aspirin 81??mg daily, atorvastatin 80 mg daily Interventions to date -??Implantable loop recorder for cryptogenic stroke from [id number], [employer]??PPM 03/2022 Most recent Echocardiogram (2016)??-??LV size normal, moderate septal thickening with no evidence of LVOT obstruction.?? LVEF 75 to 80%, no regional wall motion abnormalities.?? Grade 1-2 mild to moderate diastolic dysfunction with impaired LV relaxation and increased LA pressure.?? RV normal size and function.?? No valvular dysfunction. Current symptoms - Asymptomatic, hemodynamically stable, not endorsing any chest pain, shortness ofbreath, palpitations, well perfused Patients shortness of breath may be due to??pulmonary hypertension??in the setting of??GHULAM intolerant to CPAP and hypertensive heart disease ? Plan: ??? Lasix 40 mg IV once, assess response and redose as appropriate ??? Close monitoring I's and O's, daily weights ?Daily electrolytes, renal function test, replete as appropriate ?Echocardiogram ordered ??? Continue aspirin 81 mg daily ??? Continue atorvastatin 80 mg daily ??? Continue home carvedilol 25 mg daily, ?Start losartan 25mg (Rx has both??25 and 50 mg??doses) ??? Hold home verapamil??for now ?Patient's ??will bring??his med list??tomorrow morning ? Chronic, Stable or Resolved Conditions: Hyperlipidemia NOS (E78.5):Continue atorvastatin?? COPD without exacerbation (J44.9):No signs of exacerbation. Continue Breo Ellipta. Prn DuoNeb?? Anemia:??Continue ferrous sulfate GERD (gastroesophageal reflux disease) (K21.9):Continue PPI BPH (benign prostatic hyperplasia) (N40.0):??Continue tamsulosin CAD in [place] artery (I25.10):Continue aspirin and atorvastatin ?? Quality Measures DVT prophylaxis: Xarelto?? Diet:Cardiac Code Status:FULL HCP/Next of kin:??AGGIE TAYLOR Relation to Pt: Spouse updated 03/16 (will bring med list in am) ? Patient case and plan discussed with ??Corrina ? Elaine Mims MD ?Internal Medicine PGY-2? #[id number] ?This note was accomplished using [employer] software. Despite my efforts at performing a careful and accurate dictation, this program is prone to speech recognition errors which may result in inaccurate documentation. If clinical questions should arise, please feel free to contact me. ? 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 ?? Histories Allergies Allergies ?(Active and Proposed Allergies Only) Lipitor? (Severity: Unknown severity, Onset: Unknown) ?Reactions: Body Aches apixaban? (Severity: Unknown severity, Onset: Unknown) ?Comments: caused entire body to itch ? Past Medical History/Problem List Active Problems??(21) Atrial fibrillation BPH (benign prostatic hyperplasia) CAD in [place] artery Chronic pain Complex sleep apnea syndrome COPD without exacerbation De Quervain's tenosynovitis GERD (gastroesophageal reflux disease) Hyperlipidemia NOS Hypertension Intermittent right upper quadrant abdominal discomfort Lumbar facet joint pain MGUS (monoclonal gammopathy of unknown significance) WI (myocardial infarction) OA (osteoarthritis) of hip Obstructive sleep apnea Severe obesity (BMI 35.0-39.9) with comorbidity Stroke/cerebrovascular accident Treatment-emergent central sleep apnea ?? acalculous cholecystitis- no surgery 11/12 COVID 2019,2021 ?? Echo moderate DD, pEF, nl RV and valves ?? Past Surgical History Total replacement of right hip joint Total replacement of left knee joint Tonsillectomy without Adenoidectomy Total Knee Replacement ?? Pacemaker placement 03/2022 TA Bx negative 01/2023 ?? Social History Alcohol Details:??Use: Past. 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 Exercise Details:??Self assessment: Poor condition. Home/Environment Details:??Lives with: Spouse. Nutrition/Health Details:??Diet: Regular. Substance Abuse Details:??Use: Never. Tobacco Details:??Use: Former smoker, quit more than 30 days ago. ??Other: Quit Over 40 years ago. Electronic Cigarette/Vaping Details:??Electronic Cigarette Use: Never. ? Family History Mother (): Diabetes?? Father (): Arthritis ? Medications Home Medications Atorvastatin (atorvastatin 80 mg oral tablet)?1?tab(s)?80?Milligram?By Mouth?Daily?for 30?Days Carvedilol (Coreg 25 mg oral tablet)?25?Milligram?By Mouth?2 times a day?for 30?Days Docusate-Senna (Senna Plus 50 mg-8.6 mg oral tablet)?1-2 tablet?By Mouth?Daily at bedtime?as needed fluticasone-vilanterol (Breo Ellipta 200 mcg-25 mcg/inh inhalation powder)?1?puff(s)?Inhalation?Daily Miscellaneous Rx (VITAMIN B-12 TAB 1000MCG)?1,000?Microgram?By Mouth?Daily Multivitamin With Minerals (Cerovite Senior Therapeutic Multiple Vitamins with Minerals oral tablet)?1?tab(s)?By Mouth?Daily?for 30?Days Pantoprazole (pantoprazole 40 mg oral delayed release tablet)?1?tab(s)?40?Milligram?By Mouth?Daily rivaroxaban (Xarelto 20 mg oral tablet)?1?tab(s)?20?Milligram?By Mouth?Daily before dinner Tamsulosin (tamsulosin 0.4 mg oral capsule)?0.4?Milligram?1?capsule?By Mouth?Daily Verapamil (verapamil 180 mg oral capsule, extended release)?1?capsule?180?Milligram?By Mouth?Daily?for 30?Days?Bubble Packing ? Results Recent Labs BLOOD COUNT & DIFF WBC 9.7 k/mm3 ()?? 03/16/2023 16:44 RBC 3.94 m/mm3 (Low)?? 03/16/2023 16:44 Hgb 10.8 Gm/dL (Low)?? 03/16/2023 16:44 Hct 34.8 % (Low)?? 03/16/2023 16:44 MCV 88.3 femtoliters ()?? 03/16/2023 16:44 MCH 27.4 pg ()?? 03/16/2023 16:44 MCHC 31.0 g/dL (Low)?? 03/16/2023 16:44 Platelet Count 319 k/mm3 ()?? 03/16/2023 16:44 RDW-SD 51.8 femtoliters (High)?? 03/16/2023 16:44 MPV 9.3 femtoliters (Low)?? 03/16/2023 16:44 Nucleated RBC (Automated) 0.0 #/100 WBC'S ()?? 03/16/2023 16:44 Abs. NRBC 0.0 k/mm3 ()?? 03/16/2023 16:44 Abs. Neut 6.8 k/mm3 ()?? 03/16/2023 16:44 Abs. Lymph 1.9 k/mm3 ()?? 03/16/2023 16:44 Abs. Dickey 0.8 k/mm3 ()?? 03/16/2023 16:44 Abs. Eo 0.1 k/mm3 ()?? 03/16/2023 16:44 Abs. Baso 0.0 k/mm3 ()?? 03/16/2023 16:44 Neut % 69.6 % ()?? 03/16/2023 16:44 Lymph % 19.8 % ()?? 03/16/2023 16:44 Dickey % 8.6 % ()?? 03/16/2023 16:44 Eos % 1.2 % ()?? 03/16/2023 16:44 Baso % 0.3 % ()?? 03/16/2023 16:44 Imm Gran 0.5 % ()?? 03/16/2023 16:44 Abs. Imm Gran 0.1 k/mm3 ()?? 03/16/2023 16:44 ?? CARDIAC Nt-Probnp 2305 pg/mL (High)?? 03/16/2023 16:44 High Sensitivity Troponin (HSTnT) 43 ng/L (High)?? 03/16/2023 20:35 ?? CHEM GENERAL Sodium 144 mmol/L ()?? 03/16/2023 16:44 Potassium 4.6 mmol/L ()?? 03/16/2023 16:44 Chloride 109 mmol/L (High)?? 03/16/2023 16:44 Bicarbonate Level 24 mmol/L ()?? 03/16/2023 16:44 Anion Gap 11 ()?? 03/16/2023 16:44 Glucose Level 116 mg/dL (High)?? 03/16/2023 16:44 BUN 18 mg/dL ()?? 03/16/2023 16:44 Creatinine-Blood 1.0 mg/dL ()?? 03/16/2023 16:44 Estimated GFR Creatinine 72 ML/MIN/1.73 M2 ()?? 03/16/2023 16:44 Calcium 8.8 mg/dL ()?? 03/16/2023 16:44 Magnesium 1.9 mg/dL ()?? 03/17/2023 01:07 C-Reactive Protein 2.4 mg/dL (High)?? 03/16/2023 16:44 ?? ENDOCRINE/TUMOR MARKER TSH 3.59 uIU/mL ()?? 03/16/2023 16:44 ?? HEME OTHER Sed Rate 90 mm/hr (High)?? 03/16/2023 16:44 Hold Blue Top SPECIMEN DISCARDED AFTER 4 HOURS. ()?? 03/16/2023 16:44 ?? URINE OTHER Est Creatinine Clearance 41.30 mL/min ()?? 03/16/2023 21:47 ?? VIROLOGY Influenza A PCR NEGATIVE ()?? 03/16/2023 18:20 Influenza B PCR NEGATIVE ()?? 03/16/2023 18:20 RSV PCR NEGATIVE ()?? 03/16/2023 18:20 COVID-19 PCR Specimen Source NASAL ()?? 03/16/2023 18:20 COVID-19 PCR Result NEGATIVE ()?? 03/16/2023 18:20 ? Abnormal Labs ?? BLOOD COUNT & DIFF ??Abs. Imm Gran ??0.1 k/mm3 () ??03/16/2023 16:44 ??Abs. NRBC ??0.0 k/mm3 () ??03/16/2023 16:44 ??Hct ??34.8 % (Low) ??03/16/2023 16:44 ??Hgb ??10.8 Gm/dL (Low) ??03/16/2023 16:44 ??Imm Gran ??0.5 % () ??03/16/2023 16:44 ??MCHC ??31.0 g/dL (Low) ??03/16/2023 16:44 ??MPV ??9.3 femtoliters (Low) ??03/16/2023 16:44 ??Nucleated RBC (Automated) ??0.0 #/100 WBC'S () ??03/16/2023 16:44 ??RBC ??3.94 m/mm3 (Low) ??03/16/2023 16:44 ??RDW-SD ??51.8 femtoliters (High) ??03/16/2023 16:44 ? CARDIAC ??High Sensitivity Troponin (HSTnT) ??43 ng/L (High) ??03/16/2023 20:35 ??Nt-Probnp ??2305 pg/mL (High) ??03/16/2023 16:44 ? CHEM GENERAL ??C-Reactive Protein ??2.4 mg/dL (High) ??03/16/2023 16:44 ??Chloride ??109 mmol/L (High) ??03/16/2023 16:44 ??Estimated GFR Creatinine ??72 ML/MIN/1.73 M2 () ??03/16/2023 16:44 ??Glucose Level ??116 mg/dL (High) ??03/16/2023 16:44 ? HEME OTHER ??Hold Blue Top ??SPECIMEN DISCARDED AFTER 4 HOURS. () ??03/16/2023 16:44 ??Sed Rate ??90 mm/hr (High) ??03/16/2023 16:44 ? VIROLOGY ??COVID-19 PCR Specimen Source ??NASAL () ??03/16/2023 18:20 ??COVID-19 PCR Result ??NEGATIVE () ??03/16/2023 18:20 ??Influenza A PCR ??NEGATIVE () ??03/16/2023 18:20 ??Influenza B PCR ??NEGATIVE () ??03/16/2023 18:20 ??RSV PCR ??NEGATIVE () ??03/16/2023 18:20 ? Note: Critical results are displayed in red. ? Cardiology Labs Nt-Probnp:??2305 pg/mL??High (03/16/23 16:44:00) High Sensitivity Troponin (HSTnT):??43 ng/L??High (03/16/23 20:35:00) High Sensitivity Troponin (HSTnT):??43 ng/L??High (03/16/23 16:44:00) ? US Heart * Event Display: Echocardiogram - Complete Authored Date: Transthoracic Echocardiography Report (TTE) Patient Demographics Patient Name PAL TAYLOR Date of Study 03/17/2023 Corporate Gender Male Facility Race Ethnicity or Date of 1935 Height: 62.2 inches Age 87 year(s) Weight: 205.03 pounds Accession Number [id number] BSA: 1.94 m2 Room Number [id number] BMI: 37.25 kg/m2 Referring Physician Not on Staff Interpreting Sp Mathieu, Referring MD Physician MD Praasnna Henry MD Business Operations Coordinator Lindsay Olivarez [facility] Indications Heart failure. Clinical History Atrial fibrillation. Hypertension. Coronary artery disease. LVOT obstruction Myocardial infarction. AICD CVA GHULAM COPD Hyperlipidemia. Study Data Type of Study TTE procedure:Echo Complete-(Doppler, Colorflow) with Contrast. Procedure Information:Definity was administered by Train Planner . Study Date03/17/2023 Start Time: 09:03 AM Study Location: [facility] [place] Study Status: Echo lab Patient Status: Routine Technical Quality: Technically difficult due to body habitus. Blood Pressure:162/74 mmHg EKG: Normal sinus rhythm HR: 73 bpm Contrast Medium: Definity. Amount - 2 ml 2D Measurements LV Diastolic Dimension: 4.7 cm LV Systolic Dimension: 3.1 cm LV Septum Diastolic: 1.7 cm LV PW Diastolic: 1 cm AO Root Dimension: 3.1 cm LA ESV (BP):70.4 ml LVOT Stroke Volume: 73.05 ml LA ESV Index: 36 ml/m2 Stroke Volume Index37.65 ml/m2 LVOT: 1.7 cm Cardiac Index:2.75 l/min/m2 Ascending Aorta:3.5 cm Doppler Measurements AV Peak Velocity: 148 cm/s MV Peak E-Wave: 65.5 cm/s AV Peak Gradient: 8.76 mmHg MV Peak A-Wave: 97.1 cm/s AV Mean Gradient: 5 mmHg MV E/A Ratio: 0.67 AV VTI:31.7 cm MV P1/2t: 57 msec LVOT Peak Velocity: 138 cm/s LVOT VTI32.2 cm MV Deceleration Time: 194 msec AV Area (Continuity):2.3 cm2 MV Area (PHT): 3.86 cm2 TR Velocity:140 cm/s TR Gradient:7.84 mmHg E' Septal Velocity: 3.73 cm/s E' Lateral Velocity: 3.89 cm/s E/Med E':17.50627 E/Lat E':16.64431 Cardiac Anatomy Left Ventricle/Interventricular Septum The left ventricular size is normal. There is severe asymmetric septal hypertrophy (17 mm). Left ventricular systolic function is normal. LVEF visually estimated at 60 to 70%. Abnormal septal motion consistent with conduction abnormality. Indeterminate diastolic function. There is flow acceleration through the LVOT but no evidence of significant obstruction. Left Atrium/Interatrial Septum The left atrium is mildly dilated. Cannot exclude PFO. Aortic Valve The aortic valve is trileaflet. The aortic valve appears mildly calcified. No significant aortic stenosis or regurgitation. Mitral Valve The mitral valve is grossly normal. There is no significant mitral stenosis. Trace mitral regurgitation. Aorta The ascending aorta and aortic root are normal in size (for age and sex when indexed to body surface area). Right Ventricle The right ventricle is poorly visualized. Right ventricular size and systolic function appear grossly normal. Right Atrium The right atrium is normal in size. Pulmonic Valve The pulmonic valve is poorly visualized. Tricuspid Valve The tricuspid valve is poorly visualized. There is trace tricuspid regurgitation. Pumonary Artery The pulmonary artery systolic pressure estimation is normal. Venous Structures The inferior vena cava size is normal with normal inspiratory collapse. The central venous pressure estimation is normal, 3mmHg. Pericardium/Extracardiac There is no significant pericardial effusion. There is an epicardial fat pad present. Summary The left ventricular size is normal. There is severe asymmetric septal hypertrophy (17 mm). Left ventricular systolic function is normal. LVEF visually estimated at 60 to 70%. Abnormal septal motion consistent with conduction abnormality. Indeterminate diastolic function. There is flow acceleration through the LVOT but no evidence of significant obstruction. Right ventricular size and systolic function appear grossly normal. The left atrium is mildly dilated. Cannot exclude PFO. No hemodynamically significant (worse than mild) valve dysfunction. Normal CVP and PASP estimate. Comparison Comparison is made to the report of the study of October 10, 2015. No definite significant change. Signature * Event Display: Echocardiogram - Complete Authored Date: EKG study * Event Display: EKG Authored Date: Cardiology * Event Display: Cardiac Rhythm Strips Authored Date: Hospital Progress note * Sofiya Ann RN: PERFORM, SIGN, VERIFY Event Display: Progress Note Hospital Authored Date: Patient: PAL TAYLOR Age: 87 years Sex: Male : 1935 Associated Diagnoses: None Author: Sofiya Ann RN Findings Patient seen by , verbal orders given to not give IV lasix states he will switch orderto PO upon d/c today * Aman Barber MD: PERFORM Event Display: Progress Note Hospital Authored Date: Patient: ??PAL TAYLOR ? Age:??87 Years?Sex:??Male?:??1935?? Assessment/Plan Patient was seen in AM Please see h&P documented today for further details of management Updates: -- continue IV lasix for one more day -- Waiting for formal; read on echo * Nenita Pratt RN: PERFORM, SIGN, VERIFY Event Display: Progress Note Hospital Authored Date: Patient: PAL TAYLOR Age: 87 years Sex: Male : 1935 Associated Diagnoses: None Author: Nenita Pratt RN Findings Narrative/Incidental Pt arrived from ED A/Ox4, no SOB, no CP, V/S stable V Paced on Tele, no headache,N/V, Numbness or Tingling senssation. no c/o pain or any discomfort. Walks with cane as baseline. Clear on auscultation. Oriented in the unit. Positioned in comfort. Awaiting for MD to be seen. Callbell within reach. Co ntinously monitored.. Note * Sofiya Ann RN: PERFORM Event Display: Discharge/Transfer Note Hospital Authored Date: [id number] Nursing Discharge Note Entered On: 03/18/2023 13:43 EST Performed On: 03/18/2023 13:43 EST by Sofiya Ann RN Nursing Discharge Note 2 Discharge Time : 03/18/2023 12:00 EST Discharge Level of Care at Discharge : Home/Nursing Home/Foster Care Patient Left Unit Via : Chair Van Patient Accompanied Off Unit with : Responsible adult DC Instructions Provided & Signed by Pt : Yes Patient Understands D/C Instructions : Yes Patient Instructions Discharge Signed : Yes Did Pt have Specialty Bed or Wound Vac : No Sofiya Ann RN - 03/18/2023 13:43 EST * Aman Barber MD: PERFORM Event Display: Discharge/Transfer Note Hospital Authored Date: [id number] Patient: ??PAL TAYLOR ? Age:??87 Years?Sex:??Male?:??1935?? Patient Information Discharge Location: B Primary Care Physician: Crystal Vera MD Admit Date/Time: 03/16/23 14:30 Discharge Disposition Discharge Disposition: Home with Home Health Discharge Diagnosis Primary hypertension (I10) Hyperlipidemia, unspecified hyperlipidemia type (E78.5) CAD in [place] artery (I25.10) Severe obesity (BMI 35.0-39.9) with comorbidity (E66.01) MGUS (monoclonal gammopathy of unknown significance) (D47.2) COPD without exacerbation (J44.9) Obstructive sleep apnea (G47.33) Chest pain (R07.9) Dizziness (R42) Shortness of breath (R06.02) _ Discharge Medications Atorvastatin (atorvastatin 80 mg oral tablet)?1?tab(s)?80?Milligram?By Mouth?Daily?for 30?Days Carvedilol (Coreg 25 mg oral tablet)?25?Milligram?By Mouth?2 times a day?for 30?Days Docusate-Senna (Senna Plus 50 mg-8.6 mg oral tablet)?1-2 tablet?By Mouth?Daily at bedtime?as needed fluticasone-vilanterol (Breo Ellipta 200 mcg-25 mcg/inh inhalation powder)?1?puff(s)?Inhalation?Daily Furosemide (Lasix 40 mg oral tablet)?40?Milligram?1?tablet?By Mouth?Daily Miscellaneous Rx (VITAMIN B-12 TAB 1000MCG)?1,000?Microgram?By Mouth?Daily Multivitamin With Minerals (Cerovite Senior Therapeutic Multiple Vitamins with Minerals oral tablet)?1?tab(s)?By Mouth?Daily?for 30?Days Pantoprazole (pantoprazole 40 mg oral delayed release tablet)?1?tab(s)?40?Milligram?By Mouth?Daily rivaroxaban (Xarelto 20 mg oral tablet)?1?tab(s)?20?Milligram?By Mouth?Daily before dinner Tamsulosin (tamsulosin 0.4 mg oral capsule)?0.4?Milligram?1?capsule?By Mouth?Daily Verapamil (verapamil 180 mg oral capsule, extended release)?1?capsule?180?Milligram?By Mouth?Daily?for 30?Days?Bubble Packing Medications Started Lasix Medications Discontinued none Doses Changed none Hospital Course 87 Y O M with PMH of??Hypertensive heart disease with LVH, remote history of CAD, elevated LVOT gradient noted with Valsalva on prior echo (improved on recent echo), history of prior CVA, obstructivesleep apnea intolerant of CPAP, paroxysmal atrial fibrillation on Xarelto, benign prostatic hyperplasia, coronary artery disease, COPD, GERD, hypertension, hyperlipidemia, MGUS, CVA, WI, AICD who presents to [facility] emergency department with shortness of breath and chest pain and sowas admitted for further evaluation and management ?? acute exacerbation of chronic diastolic CHF -- Functional status -??NYHA class II, AHA stage C -- Current medication -??Coreg 25 mg twice daily, losartan 25 mg daily, verapamil 180 mg daily,??aspirin 81??mg daily, atorvastatin 80 mg daily -- Interventions to date -??Implantable loop recorder for cryptogenic stroke from [id number], [employer]??PPM 03/2022 -- Hospitalized and gave IV lasix for 24 hrs; patient felt much better -- discharged home with lasix 40 mg daily -- underwent echo during hospitalization which showed preserved EF --??Continue aspirin;??atorvastatin,??carvedilol,??losartan??, verapamil??for now ? Chronic, Stable or Resolved Conditions: Atrial fibrillation s/p PPM Remote history of CAD Hypertensive heart disease with LVH Hyperlipidemia NOS (E78.5):Continue atorvastatin?? COPD without exacerbation (J44.9):No signs of exacerbation. Continue Breo Ellipta. Prn DuoNeb?? Anemia:??Continue ferrous sulfate GERD (gastroesophageal reflux disease) (K21.9):Continue PPI BPH (benign prostatic hyperplasia) (N40.0):??Continue tamsulosin CAD in [place] artery (I25.10):Continue aspirin and atorvastatin ?? Exam at discharge: HEENT : Moist mucous membranes. Respiratory : Clear to auscultation bilaterally? Cardiac : no M/G/R.? Abdomen/GI : soft, non-tender.? Extremities : no clubbing, no cyanosis.? Neurologic : Alert & oriented x 3 . ? Follow-Up Appointments Added Follow Up ?Time Frame ?Comments Cherella Crystal ARMENTA?2 to 3 weeks Post Discharge Care Discharge ?03/18/23 11:34:00 EST Discharge Prescriptions ?ePrescribed, 03/18/23 11:34:00 EST 35??minutes spent on discharge * Sofiya Ann RN: PERFORM Event Display: Patient Education/Instruction Authored Date: [id number] Inpatient Adult Discharge Instructions [address] [address] Name: PAL TAYLOR : 1935 Visit: 03/16/2023 14:30:00 Current Date: 03/18/2023 11:36 Account: [id number] Inpatient Adult Discharge Instructions We would like [...] and their families. Surveys are administered by [employer] ?? If further treatment with your primary care physician or another doctor is recommended, it is important for you to keep the appointment. Call your primary care physician or return to the Emergency Department immediately if your condition worsens, fails to improve, or new symptoms develop. If you need to find a doctor, you can call [facility] [employer] [facility] for a referral at [phone] or toll free at [phone] or log in to [email or web address].. ?? [facility], in keeping with [facility] guidance, no longer requires face masks for [...] a health care jeff of your choosing. [employer] is a website that allows you to securely view your medical information including your hospital discharge summary, office visit summaries, medications and follow-up visits. You can also request appointments, renew medications, and request access to your medical information using a health care jeff of your choosing, or just ask a question. You can enroll at [email or web address] or register during your next office visit. You have been discharged from [facility], Patient Care Unit: D3B. If you have any questions regarding these instructions after you leave, please call us and we will be happy to assist you. [facility] Your Care Team Attending Physician Aman Barber MD Discharging Providers Aman Barber MD Reason for Admission Pt is coming from home developed ??global chest ??pain w/ dizziness/ shortness of ??breath. Pt has a ??Pacemaker in place. Your Diagnosis Dizziness Chest pain Shortness of breath Primary hypertension Hyperlipidemia, unspecified hyperlipidemia type CAD in [place] artery Severe obesity (BMI 35.0-39.9) with comorbidity MGUS (monoclonal gammopathy of unknown significance) COPD without exacerbation Obstructive sleep apnea Tests Performed Below is a partial list of the tests performed during your hospitalization. You may have had other tests and procedures not included in this list. Please discuss all test results with your provider. Basic Metabolic Panel C-REACTIVE PROTEIN CBC CBC w/ Differential COVID-19, RSV, and Flu A/B, Rapid PCR High??Sensitivity??Troponin T Hold Blue Top Tube Magnesium Level ProBNP SEDIMENTATION RATE,AUTOMATED Troponin T, High Sensitivity TSH with T4 Reflex (Adults Only) CXR W/ Frontal and Lat Primary Care Provider Crystal eVra MD Advance Directive Health Care Proxy on File Yes - Health Care Proxy Yes - MOLST Discharge Vitals Temperature: 97.8 DegF Height: 158 cm Pulse Rate:??95 bpm??High Weight: 93.4 kg Respiratory Rate: 18 br/min Body Mass Index:??37.41 kg/m2??Critical Systolic Blood Pressure: 129 mm Hg Body surface area: 2.02 Systolic Blood Pressure: 129 mm Hg ?? Diastolic Blood Pressure:??89 mm Hg??High ?? Diastolic Blood Pressure:??89 mm Hg??High ?? Oxygen Saturation: 99 % ?? Studies Pending All tests and labs ordered during this hospital stay have been completed unless listed below. Please discuss all pending results with your provider listed above in these instructions. ?? Add On Lab Order What to do next Instructions From Your Doctor Discharge Orders You Need to Schedule the Following Appointments Follow Up with??Chuy ARMENTA, Crystal Cortes When:??Within 2 to 3 weeks Where: [address] [place] [address]- Discharge Medications PAL TAYLOR :1935 Visit Date:03/16/2023 Medications: Please continue your medications until treatment is completed or stopped by your provider. Medications not listed below should be discontinued. Discuss any questions related to medications with your provider. What How Much When Instructions Next Dose New Furosemide (Lasix 40 mg oral tablet) 1 tab(s) Oral Daily Pickup at [place] [id number] today Changed Ferrous Sulfate (FeroSul 325 mg oral tablet) resume home schedule Changed Losartan (losartan 25 mg oral tablet) 03/19 morning Unchanged Aspirin (Aspirin Low Dose 81 mg oral delayed release tablet) 03/19 morning Unchanged Atorvastatin (atorvastatin 80 mg oral tablet) 1 tab(s) Oral Daily Duration: 30 Days tonight Unchanged Carvedilol (Coreg 25 mg oral tablet) 25 Milligram Oral Twice a day Duration: 30 Days 03/18 evening Unchanged Docusate-Senna (Senna Plus 50 mg-8.6 mg oral tablet) 1-2 tablet Oral Daily at Bedtime as needed ?? as needed Unchanged fluticasone-vilanterol (Breo Ellipta 200 mcg-25 mcg/ inh inhalation powder) 1 puff(s) Inhalation Daily 03/19 morning Unchanged Miscellaneous Rx (VITAMIN B-12 TAB 1000MCG) 1,000 Microgram Oral Daily Unchanged Multivitamin With Minerals (Cerovite Senior Therapeutic Multiple Vitamins with Minerals oral tablet) 1 tab(s) Oral Daily Duration: 30 Days 03/19 morning Unchanged Pantoprazole (pantoprazole 40 mg oral delayed release tablet) 1 tab(s) Oral Daily 03/19 morning Unchanged Potassium Chloride (Potassium Chloride (Thf-Mthk-Gvl 10) 10 mEq oral tablet, extended release) resume home schedule Unchanged rivaroxaban (Xarelto 20 mg oral tablet) 1 tab(s) Oral Daily before dinner today before dinner Unchanged Tamsulosin (tamsulosin 0.4 mg oral capsule) 1 capsule Oral Daily 03/19 morning Unchanged Verapamil (verapamil 180 mg oral capsule, extended release) 1 capsule Oral Daily Duration: 30 Days Bubble Packing ?? today Pharmacy Information [facility]: [address] [place] [id number] [phone] ?? What How Much When Comments Stop Taking Ascorbic Acid (Vitamin C 500 mg oral tablet) 1 tab(s) Oral Daily Stop Taking Chlorthalidone (chlorthalidone 25 mg oral tablet) 1 tab(s) Oral Daily Duration: 30 Days Test Results Below is a partial list of the most recent Laboratory test results done prior to this discharge. You may have had other tests and procedures not included in this list. Please discuss all test resultswith your provider. Est Creatinine Clearance - 34.42 mL/min (03/18/2023) Basic Metabolic Panel (03/18/2023) ???Sodium - 142 mmol/L???Potassium - 3.6 mmol/L???Chloride - 105 mmol/L???Bicarbonate Level - 25 mmol/L???Anion Gap - 12???Glucose Level - 95 mg/dL???BUN - 21 mg/dL???Creatinine-Blood - 1.2 mg/dL???Estimated GFR Creatinine - 61 ML/MIN/1.73 M2???Calcium - 8.7 mg/dL C-REACTIVE PROTEIN (03/16/2023) ???C-Reactive Protein - 2.4 mg/dL CBC (03/18/2023) ???WBC - 7.5 k/mm3???RBC - 3.76 m/mm3???Hgb - 10.2 Gm/dL???Hct - 32.6 %???MCV - 86.7 femtoliters???MCH - 27.1 pg???MCHC - 31.3 g/dL???Platelet Count - 294 k/mm3???RDW-SD - 49.9 femtoliters???MPV - 9.3 femtoliters???Nucleated RBC (Automated) - 0.0 #/100 WBC'S???Abs. NRBC - 0.0 k/mm3 CBC w/ Differential (03/16/2023) ???WBC - 9.7 k/mm3???RBC - 3.94 m/mm3???Hgb - 10.8 Gm/dL???Hct - 34.8 %???MCV - 88.3 femtoliters???MCH - 27.4 pg???MCHC - 31.0 g/dL???Platelet Count - 319 k/mm3???RDW-SD - 51.8 femtoliters???MPV - 9.3 femtoliters???Nucleated RBC (Automated) - 0.0 #/100 WBC'S???Abs. NRBC - 0.0 k/mm3???Abs. Neut - 6.8 k/mm3???Abs. Lymph - 1.9 k/mm3???Abs. Dickey - 0.8 k/mm3???Abs. Eo - 0.1 k/mm3???Abs. Baso - 0.0 k/mm3???Neut % - 69.6 %???Lymph % - 19.8 %???Dickey % - 8.6 %???Eos % - 1.2 %???Baso % - 0.3 %???Imm Gran- 0.5 %???Abs. Imm Gran - 0.1 k/mm3 COVID-19, RSV, and Flu A/B, Rapid PCR (03/16/2023) ???Influenza A PCR - NEGATIVE???Influenza B PCR - NEGATIVE???RSV PCR - NEGATIVE???COVID-19 PCR Specimen Source - NASAL???COVID-19 PCR Result - NEGATIVE High??Sensitivity??Troponin T (03/16/2023) ???High Sensitivity Troponin (HSTnT) - 43 ng/L Hold Blue Top Tube (03/16/2023) ???Hold Blue Top - SPECIMEN DISCARDED AFTER 4 HOURS. Magnesium Level (03/17/2023) ???Magnesium - 1.9 mg/dL ProBNP (03/16/2023) ???Nt-Probnp - 2305 pg/mL SEDIMENTATION RATE,AUTOMATED (03/16/2023) ???Sed Rate - 90 mm/hr Troponin T, High Sensitivity (03/16/2023) ???High Sensitivity Troponin (HSTnT) - 43 ng/L TSH with T4 Reflex (Adults Only) (03/16/2023) ???TSH - 3.59 uIU/mL Allergies (NKA means No Known Allergies) Lipitor??(Body Aches) apixaban Problems Active Problems??(19) BPH (benign prostatic hyperplasia)?? CAD in [place] artery?? Chronic pain?? Complex sleep apnea syndrome?? COPD without exacerbation?? De Quervain's tenosynovitis?? GERD (gastroesophageal reflux disease)?? Intermittent right upper quadrant abdominal discomfort?? Lumbar facet joint pain?? MGUS (monoclonal gammopathy of unknown significance)?? WI (myocardial infarction)?? Morbid obesity(HCC)?? OA (osteoarthritis) of hip?? Obstructive sleep apnea?? Severe obesity (BMI 35.0-39.9) with comorbidity?? Stroke/cerebrovascular accident?? Tonsillectomy without Adenoidectomy?? Total Knee Replacement?? Treatment-emergent central sleep apnea?? Education Materials Below is the list of Educational Leaflet Providered with your Discharge Instructions. Valuables and Belongings I fully understand and agree that [facility] accepts no responsibility for all my personal [...] to send valuables and belongings home. ?? No Valuables/Belongings: No valuables/belongings present Date for Pt to Sign Valuables/Belongings: 03/16/23 21:19:00 ?? Other Discharge Information ? Pulmonary Rehab Status?? Pulmonary Rehab Discharge Status?? Respiratory Rate: 18 br/min ? Common Emergency Awareness Tips IS [...] are strongly encouraged to quit. Please call [facility] [employer] [facility] at [phone] or [phone]) or log in to [email or web address] for referrals to smoking cessation programs. ?? 741 Suicide & Crisis Lifeline is available 15/09 if you or someone you know needs to find a reason to keep living. By calling 382 you'll be connected to a skilled, trained counselor at a crisis center in your area. INPATIENT DISCHARGE INSTRUCTIONS SIGNATURE PAGE PAL TAYLOR Location:[facility] Registration Date and Time:03/16/2023 14:30 EST Primary Care Physician: Crystal Vera MD, Attending Physician: Eder Barber [facility], I PAL TAYLOR, have received the above patient education materials/instructions and have verbalized understanding. If ambulance or transport services are being used I further acknowledge being given a choice of service. ?? If you need to contact me, please call me at this number: . Patient/Auxiliary Operator Name: Patient/Auxiliary Operator Signature: Relationship to Patient: Witness Name/Signature: Date: * Sofiya Ann RN: PERFORM Event Display: Patient Education Leaflets Authored Date: [id number] Possible Causes of Dizziness or Fainting ?? 93[address] Possible Causes of Dizziness or Fainting Dizziness and fainting can have many causes. Below are some examples of??possible causes your healthcare provider will look to rule out. Benign paroxysmal positional vertigo (BPPV) BPPV results when calcium crystals inside the inner ear shift into the wrong position. BPPV causes episodes of vertigo, a spinning sensation. Episodes most often happen when you move your head in a certain way. This is more common in people age 65 and older.? Infection or inflammation The semicircular canals of the inner ear are 3 tiny tubes that loop in 3 different directions. As fluid moves in the tubes, signals are sent to the brain that help you maintain balance. These semicircular canals may become infected or inflamed. In this case, they can send the wrong balance signals.This can cause vertigo. ?? M??ni??re disease M??ni??re disease happens when there is too much fluid in the semicircular canals. This can cause vertigo. It also can cause hearing problems and buzzing or ringing in the ears (called tinnitus). Youmay also have a feeling of pressure or fullness in the ear. ?? Syncope Syncope is fainting that happens when the brain doesn???t get enough oxygen-rich blood. It can be caused by low heart rate or low blood pressure. If this occurs as part of a fear or anxiety response,it is called vasovagal syncope. It can also be caused by sitting or standing up too quickly. This is called orthostatic hypotension. Syncope may also be due to a heart valve problem, an abnormal heart rhythm, or other problems with your heart, lungs, or blood vessels. ?? Other causes Other causes include: ??? Problems with the brain. These include a stroke or bleeding (hemorrhage) in the brain. You may need certain tests to rule out these conditions. ??? Medicines. Certain medicines can cause dizziness and even fainting. In some cases, stopping a medicine too quickly can lead to withdrawal symptoms,including dizziness and fainting. ??? Anxiety. Being anxious can lead to breathing changes, such ashyperventilation. These can lead to dizziness and fainting. Other causes for dizziness and fainting also exist.??Talk with your provider for more information. ? Last Reviewed Date: 2021 ?? 4233-5241 [employer]. All rights reserved. This information is not intended as a substitute for professional medical care. Always follow your healthcare professional's instructions. ?? * Sofiya Ann RN: PERFORM Event Display: Patient Education Leaflets Authored Date: [id number] Uncertain Causes of Chest Pain ?? [id number] Uncertain Causes of Chest Pain Chest pain can happen for a number of reasons. Sometimes the cause can't be determined. If your??condition does not seem serious, and your pain does not appear to be coming from your heart, your healthcare provider may recommend watching it closely. Sometimes the signs of a serious problem take more time to appear. Many problems not related to your heart can cause chest pain. These include: ??? Musculoskeletal. Costochondritis is an inflammation of the tissues around the ribs that can occur from trauma or overuse injuries, or a strain of the muscles of the chest wall. ??? Respiratory. Pneumonia, collapsed lung (pneumothorax), or inflammation of the lining of the chest and lungs (pleurisy). ??? Gastrointestinal. Esophageal reflux, heartburn, ulcers, or gallbladder disease. ??? Anxiety and panic disorders ??? Nerve compression and inflammation ??? Rare problems such as aortic aneurysm or aortic dissection (a swelling of the large artery coming out of the heart or a tear in the wall of the artery), or pulmonary embolism (a blood clot in the lungs). Home care After your visit, follow these recommendations: ??? Rest today and avoid strenuous activity. ??? Take any prescribed medicine as directed. ??? Be aware of any recurrent chest pain and notice any changes ?? Follow-up care Follow up with your healthcare provider if you don't start to feel better within 24 hours, or as advised. ?? Call 911 Call 911 if any of these occur: ??? A change in the type of pain: if it feels different, becomes more severe, lasts longer, or begins to spread into your shoulder, arm, neck, jaw or back ??? Shortness of breath or increased pain with breathing ??? Weakness, dizziness, or fainting ??? Rapid heartbeat ??? Crushing sensation in your chest ??? Coughing up more than a small amount of blood. ?? When to seek medical advice Call your healthcare provider right away if any of the following occur: ??? Cough with dark coloredsputum (phlegm) or small amount of blood ??? Fever of 100.4??F??(38??C) or higher, or as directed by your healthcare provider ??? Swelling, pain or redness in one leg ?? Last Reviewed Date: 2021 ?? [id number] [employer]. All rights reserved. This information is not intended as a substitute for professional medical care. Always follow your healthcare professional's instructions. ?? Patient Care team information Care Team Personnel Name: Nickie Parker RN Position: [facility] RN Member Role: Primary Care Nurse Name: Raquel Carlos RN Position: [facility] RN Member Role: Primary Care Nurse Name: Crystal Vera MD Position: [facility] Physician - Primary Care Member Role: PCP Address: Address: [address] [place] [address]- [place] Name: Sofiya Ann RN Position: [facility] RN Member Role: Primary Care Nurse Name: Christelle Chamberlain RN Position: [facility] RN Member Role: Primary Care Nurse Name: Arti Nava RN Position: [facility] RN Member Role: Primary Care Nurse Name: Kimmie Montague RN Position: [facility] RN Member Role: Primary Care Nurse Name: Irene Schwarz RN Position: [facility] RN Member Role: Primary Care Nurse Name: Karmen Fajardo RN Position: [facility] Area Loss Prevention Manager Member Role: Primary Care Nurse Care Team Related Persons Name: TAYLORAGGIE Address: home [address] [address]
--- OUTSIDE RECORDS SUMMARY | 2023-08-30 01:42 | XMS_ITS | Continuity of Care Document ---
Author Organization [facility] Address [address] [place] [address]- Care Team Providers Care Artificial Glass Eye Maker Name Role Phone Crystal Vera MD Primary Care Physician Encounter [facility] Date(s): 02/04/23 - 03/06/23 [facility] [address] [place] [address] Allergies, Adverse Reactions, Alerts Substance Reaction Severity [...] Refills, Maintenance, Tablet, Route to Pharmacy Electronically, [id number], [id number] Start Date: [...] Maintenance, 12/05/16 9:25:33, Route to Pharmacy Electronically, [id number], [id number] Start Date: 12/05/16 Stop Date: 11/30/17 Status: Ordered Coreg 25 mg oral tablet 25 mg, By Mouth, 2 times a day, # 60 tablet, Refills 11, Tot. Refills 11, Maintenance, 12/05/16 9:23:00, Route to Pharmacy Electronically, [id number], [id number] Start Date: 12/05/16 Stop Date: 11/30/17 Status: [...] Condition Confirmation Course Effective Dates Status H ealt Status Informant Atrial fibrillation Confirmed Active BPH (benign prostatic hyperplasia) Confirmed Active COPD without exacerbation Confirmed Active Chronic pain Confirmed Active CAD in [place] artery Confirmed Active De Quervain's tenosynovitis Confirmed Active GERD (gastroesophageal reflux disease) Confirmed Active Hyperlipidemia NOS Confirmed Active Hypertension Confirmed Active 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 [place] (myocardial infarction) 1 Confirmed Active Obese class [...] Team Personnel Name: Raquel Carlos RN Position: [facility] RN Member Role: Primary Care Nurse Name: Crystal Vera MD Position: [facility] Physician - Primary Care Member Role: PCP Address: Address: [address] [place] [address]- Name: Christelle Chamberlain RN Position: [facility] RN Member Role: Primary Care Nurse Name: Arti Nava RN Position: [facility] RN Member Role: Primary Care Nurse Name: Kimmie Montague RN Position: [facility] RN Member Role: Primary Care Nurse Name: Irene Schwarz RN Position: [facility] RN Member Role: Primary Care Nurse Name: Karmen Fajardo RN Position: [facility] Hospital Used Building Materials Yard Worker Member Role: Primary Care Nurse Care Team Related Persons Name: AGGIE TAYLOR Address: home [address] [address]
--- OUTSIDE RECORDS SUMMARY | 2023-08-30 01:42 | XMS_ITS | Continuity of Care Document ---
Author Organization [facility] Address [address] [place] [address] [address] [place] [address]- Care Team Providers Care Client Services Account Manager Name Role Phone Chyu ARMENTA, Crystal Cortes Primary Care Physician Encounter [facility] Date(s): 04/22/23 - 04/29/[address] [place] [address]- Attending Physician: Jeff ARMENTA, Lelo Chávez Referring Physician: Not on Staff, Referring MD [...] Refills, Maintenance, Tablet, Route to Pharmacy Electronically, [id number], [facility] Start Date: 12/05/16 Stop [...] Maintenance, 12/05/16 9:23:00, Route to Pharmacy Electronically, [id number], [id number] Start Date: 12/05/16 Stop Date: 11/30/17 Status: [...] Start Date: 11/17/19 Status: Ordered Potassium Chloride (Lec-Uwbv-Nek 10) 10 mEq oral tablet, extended release [...] Chronic pain Confirmed Active CAD in [place] artery Confirmed Active De Quervain's tenosynovitis Confirmed Active GERD (gastroesophageal reflux disease) Confirmed Active 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 [place] (myocardial infarction) 1 Confirmed Active Obstructive sleep [...] Most recent to oldest [Reference Range]: 1 Pulse Rate [55-90 bpm] 61 bpm (04/22/23 12:28 PM) Blood Pressure [90-138/55-84 mm Hg] 98/6 2mm Hg (04/22/23 12:28 PM) Temperature [96.8-100.4 DegF] 97.4 DegF (04/22/23 12:28 PM) Blood pressure sites Arm, left (04/22/23 12:28 PM) Temperature Route Temporal (04/22/23 12:28 PM) Social History Social History Type Response Smoking Status Former smoker, quit more than 30 days ago; Other: Quit Over 40 years ago; entered on: 01/13/22 Sex Male Patient Care team information Care Team Personnel Name: Nickie Parker RN Position: [facility] RN Member Role: Primary Care Nurse Name: Raquel Carlos RN Position: [facility] RN Member Role: Primary Care Nurse Name: Crystal Vera MD Position: [facility] Physician - Primary Care Member Role: PCP Address: Address: [address] [place] [address]- Name: Sofiya Ann RN Position: [facility] RN Member Role: Primary Care Nurse Name: Christelle Chamberlain RN Position: [facility] RN Member Role: Primary Care Nurse Name: Arti Nava RN Position: [facility] RN Member Role: Primary Care Nurse Name: Kimmie Montague RN Position: [facility] RN Member Role: Primary Care Nurse Name: Irene Schwarz RN Position: [facility] RN Member Role: Primary Care Nurse Name: Karmen Fajardo RN Position: [facility] Production Control Pegboard Clerk Member Role: Primary Care Nurse Care Team Related Persons Name: AGGIE TAYLOR Address: [address] [address]
--- OUTSIDE RECORDS SUMMARY | 2023-08-30 01:42 | XMS_ITS | Continuity of Care Document ---
Author Organization [facility] Address [address] [address]- Care Team Providers Care Farm Reporter Name Role Phone Crystal Vera MD Primary Care Physician Encounter [facility] Date(s): 04/24/23 - 05/24/23 [facility] [address] [address]- [place] Allergies, Adverse Reactions, Alerts Substance Reaction [...] Refills, Maintenance, Tablet, Route to Pharmacy Electronically, [id number], [id number] Start Date: 12/05/16 Stop [...] Maintenance, 12/05/16 9:23:00, Route to Pharmacy Electronically, [id number], [id number] Start Date: 12/05/16 Stop Date: 11/30/17 Status: [...] Start Date: 11/17/19 Status: Ordered Potassium Chloride (Mgs-Pixp-Mhf 10) 10 mEq oral tablet, extended release [...] Active Chronic pain Confirmed Active CAD in [place] artery Confirmed Active De Quervain's tenosynovitis Confirmed Active GERD (gastroesophageal reflux disease) Confirmed Active 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 [place] (myocardial infarction) 1 Confirmed Active Obstructive sleep [...] Team Personnel Name: Nickie Parker RN [facility] RN Member Role: Primary Care Nurse Name: Raquel Carlos RN Position: [facility] RN Member Role: Primary Care Nurse Name: Crystal Vera MD Position: [facility] Physician - Primary Care Member Role: PCP Address: Address: [address] [place] [address]- Name: Sofiya Ann RN Position: [facility] RN Member Role: Primary Care Nurse Name: Christelle Chamberlain RN Position: [facility] RN Member Role: Primary Care Nurse Name: Arti Nava RN Position: [facility] RN Member Role: Primary Care Nurse Name: Kimmie Montague RN Position: [facility] RN Member Role: Primary Care Nurse Name: Irene Schwarz RN Position: [facility] RN Member Role: Primary Care Nurse Name: Karmen Fajardo RN Position: [facility] Hospital Motor Vehicle Operator Road Supervisor Member Role: Primary Care Nurse Care Team Related Persons Name: AGGIE TAYLOR Address: home [address] [place] [address]
--- OUTSIDE RECORDS SUMMARY | 2023-08-30 01:43 | XMS_ITS | Continuity of Care Document ---
Author Organization [facility] Address [address] [address]- Care Team Providers Care Rail Car Loader Name Role Phone Crystal Vera MD Primary Care Physician Encounter [facility] Date(s): 04/20/23 - 04/27/23 [facility] [address] [address]- Attending Physician: Marisela Villafana MD Admitting Physician: Marisela Villafana MD Referring Physician: Arti Catalan NP Allergies, [...] Refills, Maintenance, Tablet, Route to Pharmacy Electronically, [id number], [facility] Start Date: 12/05/16 Stop [...] Maintenance, 12/05/16 9:23:00, Route to Pharmacy Electronically, [id number], [id number] Start Date: 12/05/16 Stop Date: 11/30/17 Status: [...] a schedule II opioid drug. 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 [place] (myocardial infarction) 1 Confirmed Active Obstructive sleep [...] oldest [Reference Range]: 1 Height 158 cm (04/20/23 9:40 AM) Weight 96.2 kg (04/20/23 9:40 AM) Oxygen Saturation [94-100 %] 100 % (04/20/23 9:40 AM) Pulse Rate [55-90 bpm] 70 bpm (04/20/23 9:40 AM) Body Mass Index [18.5-24.99 kg/m2] 38.54 kg/m2 *>HHI* (04/20/23 9:40 AM) Blood Pressure [90-138/55-84 mm Hg] 139/ 56mm Hg *H* (04/20/23 9:40 AM) Mode of Delivery (Oxygen) Room air (04/20/23 9:40 AM) Blood pressure sites Arm, left (04/20/23 9:40 AM) Weight Obtained Via Standing scale (04/20/23 9:40 AM) Social History Social History Type Response Smoking Status Former smoker, quit more than 30 days ago; Other: Quit Over 40 years ago; entered on: 01/13/22 Sex Male EKG study * Event Display: ECG 12-Lead Authored Date: [id number] Please click on pdf link to open report * Event Display: ECG 12-Lead Authored Date: [id number] Ventricular Rate: 70 BPM Atrial Rate: 70 BPM P-R Interval: 208 ms QRS Duration: 150 ms Q-T Interval: 454 ms QTC Calculation(Bazett): 490 ms P [place]: 69 degrees R [place]: -38 degrees T [place]: 122 degrees Atrial-sensed ventricular-paced rhythm Abnormal ECG When compared with ECG of 07-APR-2023 11:33, Vent. rate has increased BY 10 BPM Confirmed by MARISELA VILLAFANA ([id number]) on 04/21/2023 1:25:36 PM Marydel: MARISELA VILLAFANA Cardiology Outpatient Note * Marisela Villafana MD: PERFORM Event Display: Cardiology Note Office Authored Date: [id number] Patient: ??MIKE TAYLOR ? Age:??87 Years?Sex:??Male?:??1935?? Patient Hx Cardiology Shared Clinical Summary 1. ??Hypertensive heart disease with left ventricular hypertrophy,?? 2. ??Remote history of coronary artery disease 3. ??Hypertension 4. ??Elevated LVOT gradient noted with Valsalva on prior echocardiogram (improved on recent echo) 5. ??History of prior CVA 6. ??Obstructive sleep apnea, intolerant of CPAP 7. ??Paroxysmal atrial fibrillation, on warfarin 8.?PPM at [facility] [place]??for complete heart block 9. RBBB 10. Remote CAD 11. ??TIA 12.?[facility] History of Present Illness/Interval History 87 yo male with the above history who is here??to establish care.?? He has a history of heart failure with preserved ejection fraction,??hypertension,??left ventricular hypertrophy/hypertrophic nonobstructive??cardiomyopathy,??CVA, PAF on warfarin,??SSS status post PPM Medtronic, remote history of CAD.?? He was recently hospitalized??for chest discomfort??dizziness??dyspnea diagnosed with a CHF exacerbation.?? He does follow his weights at home and continues to have lower extremity edema. ??He is also being treated for a left chen abscess??and is followed by surgery.?? He is not experiencing anginal symptoms. ??His main complaint??is dyspnea and??continued but stable lower extremity edema. ?? Past medical history: As above,??right hip replacement,??diverticulitis,??COPD,??TURP,??left TKR, right??THR Review of Systems 11 point review of systems reviewed per intake form Physical Exam Vitals & Measurements HR:??70??(Peripheral)?? BP:??139/56?? SpO2:??100%?? HT:??158??cm?? WT:??96.2??kg?? BMI:??38.54?? Weight lb/oz: 212 lb 1 oz General:??In no acute distress, walks with walker HEENT:??Sclerae anicteric, mucous membranes moist Cardiovascular:?Regular rhythm, normal first and second heart sounds.?distant.?No JVP??Respiratory:?Clear to auscultation all lung leung??Extremities: Warm, 2+ edema Neuro:??Nonfocal??Psych: Alert and oriented with appropriate affect. ?? ECG atrial sensed, ventricular paced rhythm ?? Recent echo reviewed??asymmetric septal hypertrophy 1.7??cm with no significant LVOT obstruction.?? Report enclosed Assessment/Plan CAD (coronary artery disease) #Hypertrophic nonobstructive cardiomyopathy: Continues on??carvedilol,??verapamil. #Heart failure with preserved ejection fraction:??Furosemide, follows weights?? #Hypertension:??Stable blood pressure running on the soft side #Hyperlipidemia: Labs followed by PCP continues on statin #PAF on warfarin #Complete heart block status post Medtronic dual-chamber permanent pacemaker: Will transition to our office #Remote CAD #History of TIA/CVA: Aspirin, statin #Right bundle branch block ?? Patient appears reasonably??compensated from a cardiac standpoint. ??His blood pressure is on the softer side??and there is no evidence of LVOT obstruction I am wondering if we can??back off on the verapamil.?? This may also be contributing to his lower extremity edema.?? Recent echocardiogram was jamaal dahl.?? Will transition his pacer??checks to our office.?? Would recommend no additional changesor testing at this time. ??Follow-up in 6 months. ?? Over 100 pages of outside records were reviewed in detail. ??Total time??of visit today including [id number] contact,??coordinating care, reviewing??old records,??history, examination and documentation was 75 minutes. Allergies Lipitor??(Body Aches) apixaban Home Medications Aspirin Low Dose 81 mg oral delayed release tablet atorvastatin 80 mg oral tablet, 80 mg= 1 tablet, By Mouth, Daily, 11 refills Breo Ellipta 200 mcg-25 mcg/inh inhalation powder, 1 puffs, Inhalation, Daily Cerovite Senior Therapeutic Multiple Vitamins with Minerals oral tablet, 1 tablet, By Mouth, Daily,5 refills Coreg 25 mg oral tablet, 25 mg, By Mouth, 2 times a day, 11 refills FeroSul 325 mg oral tablet Lasix 40 mg oral tablet, 40 mg= 1 tablet, By Mouth, Daily levocetirizine, 5 mg, By Mouth, Daily before dinner losartan 25 mg oral tablet pantoprazole 40 mg oral delayed release tablet, 40 mg= 1 tablet, By Mouth, Daily Potassium Chloride (Jli-Mpxc-Mgz 10) 10 mEq oral tablet, extended release Senna Plus 50 mg-8.6 mg oral tablet, 1-2 tablet, By Mouth, Daily at bedtime tamsulosin 0.4 mg oral capsule, 0.4 mg= 1 capsule, By Mouth, Daily verapamil 180 mg oral capsule, extended release, 180 mg= 1 capsule, By Mouth, Daily, 11 refills VITAMIN B-12 TAB 1000MCG, 1000 mcg, By Mouth, Daily Xarelto 20 mg oral tablet, 20 mg= 1 tablet, By Mouth, Daily before dinner Lab Results Cardiology Labs WBC: 10.8 k/mm3 (04/07/23) RBC:??3.74 m/mm3??Low (04/07/23) Hgb:??10.3 Gm/dL??Low (04/07/23) Hct:??32.9 %??Low (04/07/23) MCV: 88 femtoliters (04/07/23) MCH: 27.5 pg (04/07/23) MCHC:??31.3 g/dL??Low (04/07/23) Platelet Count: 239 k/mm3 (04/07/23) RDW-SD:??48 femtoliters??High (04/07/23) Nucleated RBC (Automated): 0 #/100 WBC'S (04/07/23) Abs. Neut:??7.7 k/mm3??High (04/07/23) Abs. Lymph: 2 k/mm3 (04/07/23) Abs. [place]: 0.9 k/mm3 (04/07/23) Abs. Eo: 0.2 k/mm3 (04/07/23) Abs. Baso: 0.1 k/mm3 (04/07/23) Neut %: 70.8 % (04/07/23) [place] %: 8.1 % (04/07/23) Eos %: 1.8 % (04/07/23) Baso %: 0.5 % (04/07/23) Imm Gran: 0.3 % (04/07/23) Abs. Imm Gran: 0 k/mm3 (04/07/23) INR:??1.5??High (03/06/23) Protime (PT):??15.2 seconds??High (03/06/23) Sodium: 144 mmol/L (04/07/23) Potassium: 4.1 mmol/L (04/07/23) Chloride:??111 mmol/L??High (04/07/23) Bicarbonate Level:??20 mmol/L??Low (04/07/23) Glucose Level:??103 mg/dL??High (04/07/23) BUN: 18 mg/dL (04/07/23) Creatinine-Blood: 1 mg/dL (04/07/23) Calcium: 8.9 mg/dL (04/07/23) Protein, Total:??5.5 Gm/dL??Low (04/07/23) Albumin: 3.8 Gm/dL (04/07/23) Alkaline Phosphatase: 51 units/L (04/07/23) AST (SGOT): 21 units/L (04/07/23) ALT (SGPT): 15 units/L (04/07/23) Bilirubin, Total: 0.2 mg/dL (04/07/23) Nt-Probnp:??909 pg/mL??High (04/07/23) TSH: 3.59 uIU/mL (03/16/23) Free T4: 1.32 ng/dL (09/15/22) Diagnostic Impression ECG ECG 12-Lead ?? 08:26:49 Please click on pdf link to open report ?? Signed By: Marisela Villafana MD ?? ECG 12-Lead ?? 08:26:49 Ventricular Rate: 70 BPM Atrial Rate: 70 BPM P-R Interval: 208 ms QRS Duration: 150 ms Q-T Interval: 454 ms QTC Calculation(Bazett): 490 ms P [place]: 69 degrees R [place]: -38 degrees T [place]: 122 degrees Atrial-sensed ventricular-paced rhythm Abnormal ECG When compared with ECG of 07-APR-2023 11:33, Vent. rate has increased BY 10 BPM Confirmed by MARISELA VILLAFANA ([id number]) on 04/21/2023 1:25:36 PM ?? Marydel: MARISELA VILLAFANA ?? Signed By: Marisela Villafana MD Echo Echocardiogram - Complete ?? 09:03:29 Summary The left ventricular size is normal. [...] valve dysfunction. Normal CVP and PASP estimate. ?? Comparison Comparison is made to the report of the study of October 10, 2015. No definite significant change. ?? Signature ?? Signed By: Sp Murdock MD Problem List/Past Medical History Ongoing BPH (benign prostatic hyperplasia) CAD in [place] artery Chronic pain Complex sleep apnea syndrome COPD without exacerbation Cutaneous abscess of left lower extremity De Quervain's tenosynovitis GERD (gastroesophageal reflux disease) Intermittent right upper quadrant abdominal discomfort Lumbar facet joint pain MGUS (monoclonal gammopathy of unknown significance) IA (myocardial infarction) OA (osteoarthritis) of hip Obstructive sleep apnea Severe obesity (BMI 35.0-39.9) with comorbidity Stroke/cerebrovascular accident Tonsillectomy without Adenoidectomy Total Knee Replacement Treatment-emergent central sleep apnea Procedure/Surgical History Total replacement of right hip joint Total replacement of left knee joint Social History Alcohol Use: Past. Electronic Cigarette/Vaping Electronic Cigarette Use: Never. 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 Exercise Self assessment: Poor condition. Home/Environment Lives with: Spouse. Nutrition/Health Diet: Regular. Substance Abuse Use: Never. Tobacco Use: Former smoker, quit more than 30 days ago. Other: Quit Over 40 years ago. Family History Mother (): Diabetes ?07-DEC-2015 21:52:26<$> Father (): Arthritis Patient Care team information Care Team Personnel Name: Nickie Parker RN Position: [facility] RN Member Role: Primary Care Nurse Name: Raquel Carlos RN Position: [facility] RN Member Role: Primary Care Nurse Name: Crystal Vera MD Position: S Physician - Primary Care Member Role: PCP Address: Address: [address] [place] [address]- Name: Sofiya Ann RN Position: [facility] RN Member Role: Primary Care Nurse Name: Christelle Chamberlain RN Position: [facility] RN Member Role: Primary Care Nurse Name: Arti Nava RN Position: [facility] RN Member Role: Primary Care Nurse Name: Kimmie Montague RN Position: [facility] RN Member Role: Primary Care Nurse Name: Irene Schwarz RN Position: [facility] RN Member Role: Primary Care Nurse Name: Karmen Fajardo RN Position: [facility] Water Truck Driver Member Role: Primary Care Nurse Care Team Related Persons Name: AGGIE TAYLOR Address: home [address] [place] [id number]
[2023-08-30 01:47] VITALS: BP 179/67; PULSE 64; RESP 17; TEMP 36.9; O2SAT 98
[2023-08-30 01:51] LABS: Alanine Aminotransferase 29 U/L (0-40); Albumin Level 3.4 g/dL (3.5-5.0); Alkaline Phosphatase 47 U/L (39-117); Anion Gap 13 (12-20); Aspartate Amino Transferase 18 U/L (5-37); Bilirubin Direct < 0.2 mg/dL (0.0-0.5); Bilirubin Total 0.2 mg/dL (0.0-1.0); Blood Urea Nitrogen 36 mg/dL (9-16); Calcium 8.6 mg/dL (8.4-10.2); Carbon Dioxide 24 mmol/L (22-29); Chloride 107 mmol/L (96-108); Creatinine Clr Calc Pharmacy 47.5; Estimated Glomerular Filt Rate 55; Glucose Random 153 mg/dL (60-115); Lipase 19 U/L (8-78); Potassium 4.5 mmol/L (3.3-5.1); Sodium 139 mmol/L (135-145); Total Protein 5.7 g/dL (6.5-8.0)
[2023-08-30 01:58] LABS: Troponin-I High Sensitivity 24.6 ng/L (<3.5-35.0)
--- NOTE | 2023-08-30 02:31 | ED.GENADULT ---
HPI - General Adult General Chief complaint: General Medical Stated complaint: LEFT JAW TIGHTNESS Time Seen by Provider: 08/30/23 02:31 History of Present Illness ED Provider: Deja GARNER narrative: The patient is an 87-year-old male who says that he was at home when he was woken by symptoms of discomfort on his left side. He had a sense of numbness or tingling in his hands and some tightness in his jaw and a crampy feeling in his left arm. He told his and his called an ambulance. By the time he got here his symptoms had resolved. He has had no headache. No chest pain. No shortness of breath. No abdominal pain. No nausea or vomiting. No dysuria. No diarrhea. Related Data Home Medications ?Medication ?Instructions ?Recorded ?Confirmed atorvastatin 80 mg tablet 80 mg PO BEDTIME 06/03/20 12/06/22 carvedilol 25 mg tablet 25 mg PO BID 12/04/20 12/06/22 potassium chloride 10 mEq 1 tab PO BID 11/14/21 12/06/22 tablet,extended release fluticasone furoate 200 1 inh inhalation DAILY 12/06/22 12/06/22 mcg-vilanterol 25 mcg/dose inhalation powder (Breo Ellipta) ferrous sulfate 325 mg (65 mg 325 mg PO DAILY 12/07/22 12/07/22 iron) tablet (FeroSul) fluticasone propionate 50 1 spray intranasal DAILY PRN 12/07/22 12/07/22 mcg/actuation nasal Allergy Symptoms spray,suspension losartan 50 mg tablet 50 mg PO DAILY 12/07/22 12/07/22 multivitamin 1 tab PO DAILY 12/07/22 12/07/22 [id number] acid 0.4 tab PO 01/14/23 mg-lycopene 300 mcg-lutein 250 mcg tablet (CertaVite Senior) aspirin 81 mg tablet,delayed 81 mg PO DAILY 08/17/23 release ketorolac 0.5 % eye drops drp ophthalmic (eye) 08/17/23 levocetirizine 5 mg tablet 5 mg PO DAILY 08/17/23 losartan 25 mg tablet 25 mg PO DAILY 08/17/23 methylprednisolone 8 mg tablet mg PO 08/17/23 verapamil 120 mg tablet,extended 120 mg PO DAILY 08/17/23 release Previous Rx's ?Medication ?Instructions ?Recorded tamsulosin 0.4 mg capsule 0.4 mg PO DAILY 90 days #90 caps 03/29/21 furosemide 40 mg tablet 40 mg PO DAILY #30 tabs 12/05/22 levofloxacin 500 mg tablet 500 mg PO DAILY #8 tabs 12/07/22 molnupiravir 200 mg capsule (EUA) 800 mg (4 x 200 mg) PO Q12H 5 days 04/10/23 #40 caps sucralfate 100 mg/mL oral 10 ml PO BEDTIME #400 mL 05/15/23 suspension docusate sodium 100 mg capsule 100 mg PO BID #60 caps 05/20/23 rivaroxaban 20 mg tablet (Xarelto) 20 mg PO QPM #28 tabs 06/19/23 amoxicillin 875 mg-potassium 1 tab PO BID 10 days #20 tabs 07/28/23 clavulanate 125 mg tablet pantoprazole 40 mg tablet,delayed 40 mg PO DAILY@0630 #30 tabs 08/17/23 release sennosides 8.6 mg tablet (senna) 8.6 mg PO BEDTIME #30 tabs 08/17/23 Allergies Allergy/AdvReac Type Severity Reaction Status Date / Time ezetimibe [From Zetia] Allergy Severe Anaphylaxis Verified 08/30/23 01:29 dabigatran etexilate Allergy Intermediate ITCHING Verified 08/30/23 01:29 [From PRADAXA] JORGE L Inhibitors Allergy Mild UNKNOWN, Verified 08/30/23 01:29 [Jorge L Inhibitors] FOUND IN MEDICAL RECORD 04/[address] GIPSON apixaban [From ELIQUIS] Allergy Unknown Rash Verified 08/30/23 01:29 rosuvastatin [Crestor] Allergy Unknown myalgia Verified 08/30/23 01:29 Review of Systems Review of Systems: Yes all other systems are reviewed and are negative PMFSH Past Medical History Medical History Stasis leg ulcer Pacemaker History of TIA (transient ischemic attack) (~2021) History of COVID-19 Tension headache Meningioma Hypertrophic cardiomyopathy Hearing loss Diastolic CHF, 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 Frequency of micturition Chronic abdominal pain Peripheral neuropathy Constipation Diverticulitis Polyarthralgia Primary osteoarthritis of right knee Urinary incontinence History of CVA (cerebrovascular accident) (~2018) Protrusion of lumbar intervertebral disc History of rib fracture Peripheral vascular disease GERD (gastroesophageal reflux disease) Obstructive sleep apnea BPH (benign prostatic hyperplasia) Anxiety and depression Paroxysmal atrial fibrillation COPD (chronic obstructive pulmonary disease) Obesity (BMI 30-39.9) Hypercholesterolemia Hypertension Anemia Current use of anticoagulant therapy Surgical History History of pacemaker History of colonoscopy History of total right hip replacement (~2016) History of transurethral resection of prostate History of tonsillectomy History of left knee replacement (~2007) Family History Family History Father No problems noted. 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 Patient Tobacco Use Status: Never used Tobacco Years Smoked: 30 yrs ago Smoked in Last 30 Days: No Second Hand Smoke Exposure: No Use of substances other than those prescribed or required for medical reasons: No Advance Directives: Yes Advance Directives on File: Yes Advance Directives Date on File: 04/06/20 Do you have a plan to hurt others: No Plan service: No Current occupational status: unemployed and retired Current occupation: Right Handed Physical Exam ED Vital Signs: Vital Signs - 24 hr 08/30/23 01:47 08/30/23 04:02 08/30/23 07:18 Temperature 98.4 F 97.7 F 98.0 F Pulse Rate 64 60 66 Respiratory Rate 17 15 16 Blood Pressure 179/67 H 172/69 H 181/72 H Pulse Oximetry 98 98 Oxygen Delivery Method Room Air Room Air BMI result Body Mass Index 31.4 Const Other: The patient is awake and alert. He looks somewhat chronically ill but not obviously acutely ill. His mental status is normal and he seems quite clear. HENMT Other: Face is symmetrical. Mucous membranes moist. Eyes Other: Pupils are round equal, extraocular movements intact lateral gaze is intact Neck Other: Patient is neck is fairly thick. No obvious JVD. Resp Effort & Inspection: normal respiratory effort Auscultation: clear to auscultation bilaterally Cardio Rate: regular rate Rhythm: regular rhythm Heart sounds: S1 normal heart sound present and S2 normal heart sound present GI Other: Abdomen is soft and nontender Skin Other: Skin is dry and unremarkable Neuro Other: The patient is awake and alert with a normal mental status. Pupils are round equal, eye movements are intact, face is symmetrical, speech is clear, strength is 5/5 in all 4 extremities. No pronator drift. The patient seems neurologically intact. Extrem Other: Mild edema to the feet. Good pulses in the feet. Medications Administered Discontinued Medications Generic Name Dose Route Start Last Admin Trade Name Souravq PRN Reason Stop Dose Admin Sodium Chloride 1,000 mls @ 999 mls/hr 08/30/23 03:30 08/30/23 06:06 Ns IV 08/30/23 04:30 Infused .Q1H1M DEEPAK Infusion Medical Decision Making Medical Decision Making [facility] Narrative: The patient is an 87-year-old male with multiple medical problems. He has a history of complete heart block and has a pacemaker. He describes very nonspecific symptoms of left arm cramping. His EKG is nonischemic. Troponins are flat. My overall impression was that his description of the symptoms was not sufficiently concerning for an acute coronary syndrome that he would need to be hospitalized despite flat troponins. The patient's labs suggest that he was somewhat dehydrated ( BUN and creatinine were somewhat elevated). He was given IV fluids and observed. He felt comfortable going home. While waiting for an ambulance to take him home he was observed to have a run of a tachycardia that lasted about 25 seconds. This looks somewhat like a possible run of wide complex tachycardia. Rhythm strips were printed. I texted the on-call police records clerk who requested a [employer] review. A [employer] review was done. The impression was that this was most likely a tachycardia of atrial origin. The patient has a history of atrial fibrillation. He is already anticoagulated. He is on carvedilol. He will be discharged to follow up with Dr. Edwards. Lab Data 08/30/23 01:29 08/30/23 01:29 Labs: Lab Results 08/30/23 08/30/23 08/30/23 Range/Units 01:29 03:57 04:05 WBC 15.1 H (4.8-10.8) X10*3/uL RBC 4.18 L (4.60-5.80) X10*6/uL Hgb 11.5 L (14.0-18.0) g/dl Hct 35.5 L (42.0-52.0) % MCV 84.9 (80.0-98.0) fL MCH 27.5 (27.0-33.0) pg MCHC 32.4 (31.0-36.0) g/dl RDW 14.7 (11.0-16.0) % Plt Count 188 (160-400) X10*3/uL MPV 9.1 L (9.4-12.4) fL Immature Gran % (Auto) 0.7 H (0.0-0.4) % Neut % (Auto) 80.9 H (45-73) % Lymph % (Auto) 13.5 L (20-40) % [place] % (Auto) 4.8 (2-11) % Eos % (Auto) 0.0 (0-4) % Baso % (Auto) 0.1 (0-2) % Lymph # (Auto) 2.0 (1.2-4.9) X10*3/uL [place] # (Auto) 0.7 (0.1-1.2) X10*3/uL Eos # (Auto) 0.0 (0.0-0.4) X10*3/uL Baso # (Auto) 0.0 (0.0-0.2) X10*3/uL Abs Immat Gran (auto) 0.11 H (0.00-0.03) X10*3/uL Absolute Neuts (auto) 12.2 H (2.0-8.3) x10*3/uL Absolute Nucleated RBC 0.000 (0.0-0.012) X10*3/uL Nucleated RBC % (auto) 0.0 (0.0-0.2) /100WBC Sodium 139 (135-145) mmol/L Potassium 4.5 (3.3-5.1) mmol/L Chloride 107 (96-108) mmol/L Carbon Dioxide 24 (22-29) mmol/L Anion Gap 13 (12-20) BUN 36 H (9-16) mg/dL Creatinine 1.24 (0.5-1.4) mg/dL Estim Creat Clear Calc 47.5 Estimated GFR 55 Random Glucose 153 H (60-115) mg/dL Calcium 8.6 D (8.4-10.2) mg/dL Total Bilirubin 0.2 (0.0-1.0) mg/dL Direct Bilirubin < 0.2 (0.0-0.5) mg/dL AST 18 (5-37) U/L ALT 29 (0-40) U/L Alkaline Phosphatase 47 (39-117) U/L Troponin I High Sens 24.6 D 24.2 (<3.5-35.0) ng/L C-Reactive Protein 0.48 (< or = 0.50) mg/dL B-Natriuretic Peptide 113 H (<100) pg/mL Total Protein 5.7 L (6.5-8.0) g/dL Albumin 3.4 L (3.5-5.0) g/dL Lipase 19 (8-78) U/L Urine Color Yellow Urine Appearance Clear Urine pH 6.5 (5.0-9.0) Ur Specific [place] 1.015 (1.005-1.025) Urine Protein Negative (Neg-Trace) mg/dL Urine Glucose (UA) Negative (Negative) mg/dL Urine Ketones Negative (Negative) mg/dL Urine Blood Negative (Negative) Urine Nitrite Negative (Negative) Ur Leukocyte Esterase Negative (Negative) Urine RBC 0-2 (0-2) /HPF Urine WBC 0-5 (0-5) /HPF Ur Squamous Epith Cells 0-2 (0-2) /HPF Urine Bacteria None Seen (None Seen) Hyaline Casts 0-2 (0-2) /LPF Independent Interpretation I performed an independent interpretation of an: EKG Interpretation: EKG at 01:06 shows atrial sensed ventricular paced rhythm at 64 beats per minute. No significant change from previous EKG. Discharge Plan Discharge Clinical Impression: Left arm pain, Dehydration, Atrial arrhythmia Patient Disposition: Home, Self-Care Additional Instructions: Your testing in the emergency room today seems reassuring. Your blood tests suggested you were mildly dehydrated. You were given IV fluids. Please plan on following up soon with your regular doctor. Please continue your regular medications. Please try to increase your fluid intake. The hot weather may have caused you to be somewhat dehydrated. Additionally, you seemed to have a run of a rapid heart rate that lasted about 25 seconds. I discussed this with your police records clerk, Dr. Edwards. We also interrogated your pacemaker. The brief abnormal heart rate you experienced does not seem to be a dangerous episode but you should follow up with your police records clerk, Dr. Edwards. Please call his office on Thursday. Return to the emergency room if significantly worse. Prescriptions: No Action tamsulosin 0.4 mg capsule 0.4 mg PO DAILY 90 Days Qty: 90 3RF furosemide 40 mg tablet 40 mg PO DAILY Qty: 30 5RF docusate sodium 100 mg capsule 100 mg PO BID Qty: 60 5RF Xarelto 20 mg tablet 20 mg PO QPM Qty: 28 5RF atorvastatin 80 mg tablet 80 mg PO BEDTIME potassium chloride 10 mEq tablet extended release 1 tab PO BID fluticasone furoate-vilanterol [Breo Ellipta] 200-25 mcg/dose Blister With Device 1 inh INHALATION DAILY multivitamin Tablet 1 tab PO DAILY losartan 50 mg tablet 50 mg PO DAILY ferrous sulfate [FeroSul] 325 mg (65 mg iron) tablet 325 mg PO DAILY fluticasone propionate 50 mcg/actuation spray,suspension 1 spray intranasal DAILY PRN (Reason: Allergy Symptoms) levofloxacin 500 mg tablet 500 mg PO DAILY Qty: 8 0RF molnupiravir 200 mg capsule 800 mg PO Q12H 5 Days Qty: 40 0RF amoxicillin-pot clavulanate 875-125 mg tablet 1 tab PO BID 10 Days Qty: 20 0RF carvedilol 25 mg tablet 25 mg PO BID CertaVite Senior 0.4 mg-300 mcg- 250 mcg tablet PO sucralfate 100 mg/mL suspension 10 ml PO BEDTIME Qty: 400 3RF losartan 25 mg tablet 25 mg PO DAILY ketorolac 0.5 % drops ophthalmic (eye) levocetirizine 5 mg tablet 5 mg PO DAILY aspirin 81 mg tablet,delayed release (DR/EC) 81 mg PO DAILY verapamil 120 mg tablet extended release 120 mg PO DAILY methylprednisolone 8 mg tablet PO pantoprazole 40 mg tablet,delayed release (DR/EC) 40 mg PO DAILY@0630 Qty: 30 3RF sennosides [senna] 8.6 mg tablet 8.6 mg PO BEDTIME Qty: 30 4RF Referrals: Arti Catalan NP [Nurse Practitioner] - (dehydration) Hai Edwards MD [Physician] - (atrial dysrhythmia) Print Language: Romansh
[2023-08-30 03:12] LABS: C Reactive Protein 0.48 mg/dL (< or = 0.50)
[2023-08-30 03:45] LABS: B Type Natriuretic Peptide 113 pg/mL (<100)
[2023-08-30] MEDS: 0.9 % Sodium Chloride 1,000 ML 999 ML IV (04:01)
[2023-08-30 04:02] VITALS: BP 172/69; PULSE 60; RESP 15; TEMP 36.5
[2023-08-30 04:10] LABS: Appearance Urine Clear; Color Urine Yellow; Glucose Urine UA Negative (Negative); Leukocyte Esterase Urine Negative (Negative); Nitrite Urine Negative (Negative); PH 6.5 (5.0-9.0); Specific Gravity - Urine 1.015 (1.005-1.025); Urine Blood Negative (Negative); Urine Ketones Negative (Negative); Urine Protein Negative (Neg-Trace)
[2023-08-30 04:12] LABS: Bacteria Urine None Seen (None Seen); Hyaline Casts Urine 0-2 /LPF (0-2); RBC Urine 0-2 /HPF (0-2); Squamous Epithelial Cell Urine 0-2 /HPF (0-2); WBC Urine 0-5 /HPF (0-5)
[2023-08-30 04:22] LABS: Troponin-I High Sensitivity 24.2 ng/L (<3.5-35.0)
--- NOTE | 2023-08-30 06:43 | PC.NURSE ---
MD aware of BP; pt has home AM bp meds.
--- NOTE | 2023-08-30 07:14 | PC.NURSE ---
pt currently awaiting transportation via BLS back to his house at this time. while waiting for ride, pt noted to be in 25 seconds of vtach on the monitoring coordinator. pt assessed immediately. denies chest pain/palpitations/sob. pt unaware of this event - stating, it wasn't me. MD notified/aware. pt then seen by provider. plan at this time is to evaluate w/ isotope hydrologist. pt currently resting in no apparent distress w/ the lights dimmed. no sob/wob noted. respirations even/unlabored. plan of care ongoing.
[2023-08-30 07:18] VITALS: BP 181/72; PULSE 66; RESP 16; TEMP 36.7; O2SAT 98
--- NOTE | 2023-08-30 07:42 | PC.NURSE ---
Rip van Wafels analyzer device utilized for pacemaker. information sent out at this time. plan of care ongoing.
--- NOTE | 2023-08-30 09:30 | PC.NURSE ---
provider notified/aware that pt remains hypertensive - states he can take medications at home as prescribed after being transported home via BLS.
[2023-08-30 09:40] VITALS: BP 181/72; PULSE 66; RESP 16; TEMP 36.7; O2SAT 98
--- NOTE | 2023-08-30 09:40 | PC.NURSE ---
report given to DONNA clark at this time.
== END 2023-08-30 10:03 | disposition home or self-care (01) ==
PROVIDERS: Emergency Provider Emergency Medicine
DX: I49.9 Cardiac arrhythmia, unspecified (principal); R20.2 Paresthesia of skin; R68.84 Jaw pain; I11.0 Hypertensive heart disease with heart failure; I50.9 Heart failure, unspecified; Z95.0 Presence of cardiac pacemaker; Z79.01 Long term (current) use of anticoagulants; Z79.899 Other long term (current) drug therapy
CPT/HCPCS: 36415; 80048; 80076; 81001; 83690; 83880; 84484; 85025; 86140; 93005; 96360; 96361; 99284; 99285

== ENCOUNTER → 2023-08-30 01:06 | Outpatient (BNV) | payer OTHER, SELFPAY | PROVIDERS: Emergency Provider Emergency Medicine; Visit Provider Internal Medicine | DX: R94.31 Abnormal electrocardiogram [ECG] [EKG] (principal) | CPT/HCPCS: 93010 ==

== ENCOUNTER 2023-09-28 09:22 | Outpatient (REF) | payer OTHER, SELFPAY ==
[2023-09-28 11:49] LABS: Erythrocyte Sedimentation Rate 14 MM/HR (0-15)
== END 2023-09-28 09:23 | disposition home or self-care (01) ==
LOC: HO.LAB 09:22
PROVIDERS: PCP Registered Nurse; Visit Provider Registered Nurse
DX: M31.6 Other giant cell arteritis (principal)
CPT/HCPCS: 36415; 85652

== ENCOUNTER 2023-10-13 15:35 | Outpatient (AMB) | payer OTHER, SELFPAY ==
[2023-10-13 15:35] VITALS: BP 130/74; BMI 31.2
--- NOTE | 2023-10-13 15:35 | MHC.OFFVIS ---
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 Pt states his left leg is bothering him more than his right. Pt states he has swelling in his feet and ankles but was put on lasix. Pt states he will get numbness from his knee to his toes occasionally. Allergies ezetimibe [From Zetia] Allergy (Severe, Verified 10/13/23 15:38) Anaphylaxis dabigatran etexilate [From PRADAXA] Allergy (Intermediate, Verified 10/13/23 15:38) ITCHING JORGE L Inhibitors [Jorge L Inhibitors] Allergy (Mild, Verified 10/13/23 15:38) UNKNOWN, FOUND IN MEDICAL RECORD 04/[address] 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 He reports that he has had some swelling that has been recurrent on and off for several months and actually has had 2 subsequent recent visits to the emergency room. At that time it appears that he was treated for congestive heart failure and what appears to be an arrhythmia. He now presents for follow-up with swelling of that left lower extremity and discomfort on that leg. He requires the use of walker for more balance issues. 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 Frequency of micturition Chronic abdominal pain Peripheral neuropathy Constipation Diverticulitis Polyarthralgia Primary osteoarthritis of right knee Urinary incontinence History of CVA (cerebrovascular accident) (~2018) Protrusion of lumbar intervertebral disc History of rib fracture Peripheral vascular disease GERD (gastroesophageal reflux disease) Obstructive sleep apnea BPH (benign prostatic hyperplasia) Anxiety and depression Paroxysmal atrial fibrillation COPD (chronic obstructive pulmonary disease) Obesity (BMI 30-39.9) Hypercholesterolemia Hypertension Anemia Current use of anticoagulant therapy Surgical History History of pacemaker History of colonoscopy History of total right hip replacement (~2016) History of transurethral resection of prostate History of tonsillectomy History of left knee replacement (~2007) Family History Father No problems noted. 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 Patient Tobacco Use Status: Never used Tobacco Years Smoked: 30 yrs ago Second Hand Smoke Exposure: No Advance Directives Date on File: 04/06/20 service: No Current occupational status: unemployed and retired Current occupation: Right Handed Review of Systems Const All systems reviewed & are unremarkable except as noted in HPI and below Reports no additional complaints ENT Reports Normal hearing present Card Denies chest pain, Denies chest pain at rest, Denies chest pain with activity and Denies pedal edema Resp Denies cough GI Denies abdominal pain Musc Denies abnormal gait, Denies muscle cramps and Denies radiating pain into limb Skin/Breast Denies skin ulcer and Denies wounds Neuro Reports Normal hearing present and Denies abnormal gait Psych Reports no additional complaints Physical Exam Vital Signs: Last Vital Signs BP 130/74 10/13/23 15:35 BMI result Body Mass Index 31.2 Const General: cooperative, healthy appearing and comfortable Orientation/consciousness: oriented to person, oriented to place and oriented to time HEENT Head: Yes normal to inspection Neck Neck: Yes normal visual inspection Carotids: no bruits Chest Chest palpation & inspection: normal inspection of the chest Resp Effort & Inspection: normal respiratory effort and able to speak in complete sentences Auscultation: clear to auscultation bilaterally, no crackles, no rales, no rhonchi and no wheezes Cardio Other: Bilateral DP signals Rate: regular rate Rhythm: regular rhythm Heart sounds: S1 normal heart sound present and S2 normal heart sound present Bruits: no carotid bruits Peripheral pulses: Peripheral pulses 2+ throughout GI Inspection: Yes normal to inspection Skin Wounds: no wounds Hair: normal Neuro General: oriented to person, oriented to place and oriented to time Cranial nerves: Yes CN's II-XII intact bilaterally and Yes Normal hearing present Cognition (Neuro): normal cognition Motor exam (neuro): 5/5 motor strength present throughout Extrem Other: venous exam: +2 edema General: No clubbing, No cyanosis and No edema Psych Appearance: grossly normal Mental Status: mental status grossly normal Speech and movement: Normal speech and movement present Results Reviewed Results Reviewed: Brief summary of venous insufficiency testing is as follows: right great saphenous vein: negative right small saphenous vein: negative right accessory vein: none present left great saphenous vein: negative left small saphenous vein: negative left accessory vein: none present Please note there is no evidence of any venous aneurysms or significant tortuosity Assessment & Plan Assessment & Plan (1) Peripheral vascular disease: Code(s): I73.9 - Peripheral vascular disease, unspecified Category: Medical Plan: In short patient has lower extremity discomfort may be multifactorial in nature. It does not appear to be venous in nature as testing was negative. I was unable to appreciate palpable arterial pulses. I did take the liberty of ordering arterial ultrasound. In addition some of this may be related to cardiac and congestive heart failure. Patient will follow up with us after arterial testing. Thank you for allowing us to participate in the care of this kind gentleman. If there are any questions or concerns please do not hesitate to contact us. Please note a longitudinal relationship has been created with the patient and we have been following and surveillance this chronic condition. Orders: Orders US arterial duplex LE BI 1 Week I73.9 - Peripheral vascular disease, unspecified Coding Level of Care Code New Pt Level 4 (00062) Complex EM visit Add On G2211 Diagnoses Peripheral vascular disease I73.9
== END 2023-10-13 16:01 | disposition home or self-care (01) ==
PROVIDERS: PCP Internal Medicine; Visit Provider Surgery Vascular Surgery
DX: I73.9 Peripheral vascular disease, unspecified (principal)
CPT/HCPCS: 99204; G2211

== ENCOUNTER → 2023-10-13 15:35 | Outpatient (BNVA) | payer OTHER, SELFPAY | PROVIDERS: PCP Internal Medicine; Visit Provider Surgery Vascular Surgery | DX: I73.9 Peripheral vascular disease, unspecified (principal) | CPT/HCPCS: 99202 ==

== ENCOUNTER → 2023-10-21 10:51 | Outpatient (RCR) | payer MEDICARE, SELFPAY ==
[2020-01-13 10:38] LABS: MANUAL DIFF FLAG NO
[2020-01-13 10:39] VITALS: BMI 38.9
[2020-01-13 10:40] VITALS: BP 105/52; PULSE 76; RESP 18; TEMP 36.4; O2SAT 95
[2020-01-13 10:43] LABS: Basophils Percent Auto 0.2 % (0-2); Eosinophils Absolute Auto 0.2 X10*3/uL (0.0-0.4); Hematocrit 34.5 % (42-52); Hemoglobin 11.2 g/dl (14.0-18.0); Imm Gran Abs Auto 0.02 X10*3/uL (0.00-0.03); Imm Gran Pct Auto 0.2 % (0.0-0.4); Lymphocytes Absolute Auto 2.7 X10*3/uL (1.2-4.9); Lymphocytes Percent Auto 26.9 % (20-40); Mean Corpuscular HGB Conc 32.5 g/dl (31.0-36.0); Mean Corpuscular Hemoglobin 28.1 pg (27.0-33.0); Mean Corpuscular Volume 86.7 fL (80-98); Mean Platelet Volume 9.8 fL (9.4-12.4); Monocytes Absolute Auto 0.9 X10*3/uL (0.1-1.2); Monocytes Percent Auto 8.5 % (2-11); Neutrophils Absolute Auto 6.2 X10*3/uL (2.0-8.3); Neutrophils Percent Auto 62.2 % (45-73); Platelet Count 236 X10*3/uL (160-400); Red Blood Count 3.98 X10*6/uL (4.60-5.80)
--- NOTE | 2020-01-13 10:50 | P.PNHO_ITS ---
Medical Summary - Medical Summary Date of Service: 01/20/20 Chief complaint: F/U for NC/NC ANEMIA. Medical Summary: DIAGNOSIS: ANEMIA. Interval History Interval history: This is a pleasant 84 year-old gentleman, here for a follow-up visit. He is feeling, So So, he says. His energy level is rather low. Sometimes he is weak, though last few weeks he has been okay. He has COPD. He has a H/O sleep Apnea. He is actually scheduled for a Sleep Study, on 01/28. He denies any fever/chills. He has had headaches for the past 3 years. He denies dizziness. He denies CP. He does feel SOB. Sometimes his belly hurts. He localizes it the right upper quadrant and epigastric area. He feels uncomfortable , after he eats. When he is not having pain he feels pressure in the belly. He complains heartburn and indigestion. Nausea but no vomiting. Bowels are working without any gross blood in it. His appetite is good. He has lost weight. He is in good spirits. Rest of the review of systems is unremarkable. PREVIOUS VISIT HISTORY: He does not feel too well. He has a few issues ongoing. He tells me he has had a headache for the past 3 years. His belly hurts. He localizes it the right upper quadrant and epigastric area. Pain is random but worsens after eating. Sometimes even drinking water triggers the pain. When he is not having pain he feels pressure in the belly. The is a day he was in the supermarket when he felt numbness radiating up from his toes to the here. Same thing happened [place] [employer] [place]. He complains heartburn and indigestion. Nausea but no vomiting. Bowels are working without any gross blood in it. His appetite is fair. His weight is stable. Review of Systems - Constitutional Reports system reviewed and no additional complaints, except as documented, Reports fatigue, Denies fever(s) - Eyes Reports system reviewed and no additional complaints, except as documented - ENT Reports system reviewed and no additional complaints, except as documented - Cardiovascular Reports system reviewed and no additional complaints, except as documented, Repo rts shortness of breath - Respiratory Reports no additional respiratory complaints, Reports dyspnea, Denies chest congestion - Gastrointestinal Reports system reviewed and no additional complaints, except as documented, Reports abdominal pain, Reports belching, Reports bloating, Denies bright, red blood in stools - Musculoskeletal Reports system reviewed and no additional complaints, except as documented - Integumentary/Breasts Skin/Breast: Reports no additional skin complaints - Neurologic Reports system reviewed and no additional complaints, except as documented, Denies vertigo - Psychiatric Reports system reviewed and no additional complaints, except as documented - Endocrine Reports no additional endocrine complaints - Hematologic/Lymphatic Reports system reviewed and no additional complaints, except as documented, Denies easy bleeding PMFSH Medical History: Medical History (Last Reviewed 01/14/20 @ 16:17 by Bo Pierce NP) Anemia Anxiety and depression BPH (benign prostatic hyperplasia) COPD (chronic obstructive pulmonary disease) GERD (gastroesophageal reflux disease) History of CVA (cerebrovascular accident) History of rib fracture Hypercholesterolemia Hypertension Obesity (BMI 30-39.9) Obstructive sleep apnea Paroxysmal atrial fibrillation Peripheral vascular disease Protrusion of lumbar intervertebral disc Functional capacity: independent ambulation Patient : No Family History: Family History (Last Updated 12/15/19 @ 09:07 by CHRISTY Patterson) Father No problems noted. Mother No problems noted. Surgical History: Surgical History (Last Reviewed 01/14/20 @ 11:50 by Jazmyne Koroma RN) History of left knee replacement History of tonsillectomy History of total right hip replacement History of transurethral resection of prostate Home Medications and Allergies Home Medications Medication Instructions Recorded Confirmed Type albuterol sulfate 90 mcg/actuation 2 puff INHALATION Q4-6H PRN 12/15/19 01/16/20 History aerosol inhaler atorvastatin 80 mg tablet 80 mg PO DAILY 12/15/19 01/16/20 History carvedilol 25 mg tablet 25 mg PO BID 12/15/19 01/16/20 History chlorthalidone 25 mg tablet 25 mg PO DAILY 12/15/19 01/16/20 History losartan 100 mg tablet 100 mg PO DAILY 12/15/19 01/16/20 History multivitamin-ferrous 1 tab PO DAILY 12/15/19 01/16/20 History fumarate-folic acid 18 mg-400 mcg tablet bpjfodjpnsqd-hxjodcpx-aedrsl tablet 1 tab PO DAILY 12/15/19 01/13/20 History sennosides 8.6 mg tablet 8.6 mg PO DAILY 12/15/19 01/16/20 History terazosin 5 mg capsule 5 mg PO DAILY 12/15/19 01/16/20 History verapamil 180 mg 24 hr 180 mg PO DAILY 12/15/19 01/16/20 History capsule,extended release warfarin 5 mg tablet 5 mg PO DAILY 12/15/19 01/16/20 History Allergies Allergy/AdvReac Type Severity Reaction Status Date / Time dabigatran etexilate Allergy Intermediate ITCHING Verified 12/26/19 11:11 [From PRADAXA] JORGE L Inhibitors Allergy Mild UNKNOWN, Verified 12/26/19 11:11 [Jorge L Inhibitors] FOUND IN MEDICAL RECORD 04/[address] GIPSON ezetimibe [From Zetia] Allergy Mild ANAPHYLAXIS Verified 12/26/19 11:11 apixaban [From ELIQUIS] Allergy Unknown UNKNOWN, Verified 12/26/19 11:11 rash atorvastatin [From LIPITOR] Allergy Unknown UNKNOWN Verified 12/26/19 11:11 rosuvastatin [Crestor] Allergy Unknown myalgia Verified 12/26/19 11:11 Exam Vital signs: Vital Signs Temp 97.6 F 01/13/20 10:40 Pulse 76 01/13/20 10:40 Resp 18 01/13/20 10:40 BP 105/52 L 01/13/20 10:40 Pulse Ox 95 01/13/20 10:40 Intake & Output 01/12/20 01/13/20 01/13/20 18:59 06:59 18:59 Other: Weight 96.7 kg Weight 96.7 kg Body Mass Index 38.9 - Constitutional Present: no acute distress - Routine HEENT Exam Head: Present: normal inspection ENT: Present: mucous membranes moist - Routine Neck Exam Present: full ROM - Routine Respiratory Exam Present: CTAB - Routine Cardiovascular Exam Cardiovascular: Present: RRR, S1, S2 - Routine Abdominal Exam Present: tenderness - Routine Rectal Exam Patient deferred: digital exam - Routine Skin Exam Present: intact - Detailed Neurological Exam: Coma Scale Eye Opening: Spontaneous (4) Verbal Response: Oriented (5) Motor Response: Obeys commands (6) Glascow Coma Scale Total: 15 - Routine Psychiatric Exam Present: normal affect Data - Labs CBC & Chem 7: 01/13/20 10:36 01/13/20 10:36 Labs: 01/13/20 10:36 Complete Blood Count Auto Diff Routine Laboratory Last Values WBC 10.0 X10*3/uL (4.8-10.8) 01/13/20 10:36 RBC 3.98 X10*6/uL (4.60-5.80) L 01/13/20 10:36 Hgb 11.2 g/dl (14.0-18.0) L 01/13/20 10:36 Hct 34.5 % (42-52) L 01/13/20 10:36 MCV 86.7 fL (80-98) 01/13/20 10:36 MCH 28.1 pg (27.0-33.0) 01/13/20 10:36 MCHC 32.5 g/dl (31.0-36.0) 01/13/20 10:36 RDW 14.0 % (11.0-16.0) 01/13/20 10:36 Plt Count 236 X10*3/uL (160-400) 01/13/20 10:36 MPV 9.8 fL (9.4-12.4) 01/13/20 10:36 Immature Gran % (Auto) 0.2 % (0.0-0.4) 01/13/20 10:36 Neut % (Auto) 62.2 % (45-73) 01/13/20 10:36 Lymph % (Auto) 26.9 % (20-40) 01/13/20 10:36 [place] % (Auto) 8.5 % (2-11) 01/13/20 10:36 Eos % (Auto) 2.0 % (0-4) 01/13/20 10:36 Baso % (Auto) 0.2 % (0-2) 01/13/20 10:36 Lymph # (Auto) 2.7 X10*3/uL (1.2-4.9) 01/13/20 10:36 [place] # (Auto) 0.9 X10*3/uL (0.1-1.2) 01/13/20 10:36 Eos # (Auto) 0.2 X10*3/uL (0.0-0.4) 01/13/20 10:36 Baso # (Auto) 0.0 X10*3/uL (0.0-0.2) 01/13/20 10:36 Abs Immat Gran (auto) 0.02 X10*3/uL (0.00-0.03) 01/13/20 10:36 Absolute Neuts (auto) 6.2 X10*3/uL (2.0-8.3) 01/13/20 10:36 Absolute Nucleated RBC 0.000 X10*3/uL (0.0-0.012) 01/13/20 10:36 Nucleated RBC % (auto) 0.0 /100WBC (0.0-0.2) 01/13/20 10:36 Progress Note: A/P (1) Anemia Status: Acute Assessment and plan: This is a pleasant 84-year-old gentleman, with a chronic history of Normochromic normocytic Anemia, dating back to 1996. Blood count has gradually declined over the years. Most likely, he has Anemia of Chronic Disease. DIFFERENTIAL DIAGNOSIS: 2. IRON DEFICIENCY ANEMIA: However his iron profile and ferritin are normal. 3. B12 or FOLATE DEFICIENCY: Recent B12 folate are normal. 4. HEMOLYTIC ANEMIA: This is a possibility. 5. UNDERLYING MYELO INFILTRATIVE DISORDER: MDS vs MULTIPLE MYELOMA. I proceeded with further evaluation. I checked a hemolytic screen: Retic: 0.8, haptoglobin: 166 , LDH:203. Checked SIEP: No abnormal bands. He is complaining of some abdominal complaints. His blood count had been steadily declining, last hemoglobin was 10.9, however today it is 11.2. My concern was for gallstone versus gastritis. He had a CT scan of the abdomen September 22 which revealed: 1. No definite findings to explain patient's symptoms. 2. No evidence of obstructive uropathy. l checked ultrasound of the abdomen to look for any gallbladder disease. This was done on 11/14, and revealed: Echogenic bile without cholelithiasis or cholecystitis. l referred him to GI for further evaluation including a possible endoscopy. He is holding stable. Blood count has improved. PLAN: I will continue to monitor. If the blood count falls lower, will consider proceeding to a bone marrow exam for further evaluation. He will return in 6 months for a follow-up visit. Thank you, CC: Dr. Gipson. - Time Spent With Patient Total time spent is greater than 50% in coordination of care (as documented) at patient's floor/unit and/or counseling patient: 25 - 35 minutes
[2020-01-13 11:14] LABS: Alanine Aminotransferase 20 U/L (0-40); Albumin Level 3.9 g/dL (3.5-5.0); Alkaline Phosphatase 69 U/L (39-117); Anion Gap 14 (12-20); Aspartate Amino Transferase 22 U/L (5-37); Bilirubin Total 0.5 mg/dL (0.0-1.0); Blood Urea Nitrogen 16 mg/dL (9-16); Calcium 8.5 mg/dL (8.4-10.2); Carbon Dioxide 27 mmol/L (22-29); Chloride 106 mmol/L (96-108); Creatinine Clr Calc Pharmacy 49.6; Estimated Glomerular Filt Rate > 60; Glucose Random 77 mg/dL (60-115); Potassium 3.6 mmol/l (3.3-5.1); Sodium 143 mmol/L (135-145); Total Protein 6.1 g/dL (6.5-8.0)
[2020-01-13 11:24] LABS: Ferritin 48 ng/mL (20-250)
== END | disposition home or self-care (01) ==
LOC: HO.ONC 01-13 10:25
PROVIDERS: PCP Internal Medicine; Visit Provider Internal Medicine Medical Oncology
DX: D64.9 Anemia, unspecified (principal)
CPT/HCPCS: 36415; 80053; 82728; 85025; 99214

== ENCOUNTER 2023-11-09 17:01 | Emergency (ER) | payer OTHER, SELFPAY ==
[2023-11-09 17:27] VITALS: BP 104/62; BP 136/74; PULSE 85; PULSE 89; RESP 18; TEMP 37.1; O2SAT 99; BMI 37.9
--- NOTE | 2023-11-09 17:50 | ED.EYEPROB ---
HPI - Eye Problem General Chief complaint: Eye Problems Stated complaint: redness & swelling of R eye after biopsy Time Seen by Provider: 11/09/23 17:14 Source: patient, EMS and old records reviewed Mode of arrival: EMS Limitations: no limitations History of Present Illness ED Provider: SYLVESTER GARNER Narrative: 87 yo male with PMH of HTN, TIAs, PPM for complete heart block, CHF, hypertrophic cardiomyopathy, PAF on xarelto, COPD, anxiety and depression, anemia, prior GCA on R side with R temporal artery biopsy about 4 months ago presents with noticing R eye area had blood in it - denies trauma or vision changes. He has no headache. chief complaint: other (bloody eye) Onset (ago): day(s) (1) Onset description: gradual Duration: constant Location: right eye Eye Symptoms: other (reports bloody R eye) Place: home Mechanism: none Severity: mild Context: other (nervous because last time he had this he had GCA) Associated symptoms: none Treatments Prior to Arrival: none Related Data Home Medications ?Medication ?Instructions ?Recorded ?Confirmed atorvastatin 80 mg tablet 80 mg PO BEDTIME 06/03/20 12/06/22 carvedilol 25 mg tablet 25 mg PO BID 12/04/20 12/06/22 potassium chloride 10 mEq 1 tab PO BID 11/14/21 12/06/22 tablet,extended release fluticasone furoate 200 1 inh inhalation DAILY 12/06/22 12/06/22 mcg-vilanterol 25 mcg/dose inhalation powder (Breo Ellipta) ferrous sulfate 325 mg (65 mg 325 mg PO DAILY 12/07/22 12/07/22 iron) tablet (FeroSul) fluticasone propionate 50 1 spray intranasal DAILY PRN 12/07/22 12/07/22 mcg/actuation nasal Allergy Symptoms spray,suspension losartan 50 mg tablet 50 mg PO DAILY 12/07/22 12/07/22 multivitamin 1 tab PO DAILY 12/07/22 12/07/22 fegmxvvk-znp-txgja acid 0.4 tab PO 01/14/23 mg-lycopene 300 mcg-lutein 250 mcg tablet (CertaVite Senior) aspirin 81 mg tablet,delayed 81 mg PO DAILY 08/17/23 release ketorolac 0.5 % eye drops drp ophthalmic (eye) 08/17/23 levocetirizine 5 mg tablet 5 mg PO DAILY 08/17/23 losartan 25 mg tablet 25 mg PO DAILY 08/17/23 methylprednisolone 8 mg tablet mg PO 08/17/23 verapamil 120 mg tablet,extended 120 mg PO DAILY 08/17/23 release Previous Rx's ?Medication ?Instructions ?Recorded tamsulosin 0.4 mg capsule 0.4 mg PO DAILY 90 days #90 caps 03/29/21 furosemide 40 mg tablet 40 mg PO DAILY #30 tabs 12/05/22 molnupiravir 200 mg capsule (EUA) 800 mg (4 x 200 mg) PO Q12H 5 days 04/10/23 #40 caps sucralfate 100 mg/mL oral 10 ml PO BEDTIME #400 mL 05/15/23 suspension docusate sodium 100 mg capsule 100 mg PO BID #60 caps 05/20/23 rivaroxaban 20 mg tablet (Xarelto) 20 mg PO QPM #28 tabs 06/19/23 pantoprazole 40 mg tablet,delayed 40 mg PO DAILY@0630 #30 tabs 08/17/23 release sennosides 8.6 mg tablet (senna) 8.6 mg PO BEDTIME #30 tabs 08/17/23 Allergies Allergy/AdvReac Type Severity Reaction Status Date / Time ezetimibe [From Zetia] Allergy Severe Anaphylaxis Verified 11/09/23 17:28 dabigatran etexilate Allergy Intermediate ITCHING Verified 11/09/23 17:28 [From PRADAXA] JORGE L Inhibitors Allergy Mild UNKNOWN, Verified 11/09/23 17:28 [Jorge L Inhibitors] FOUND IN MEDICAL RECORD 04/[address] GIPSON apixaban [From ELIQUIS] Allergy Unknown Rash Verified 11/09/23 17:28 rosuvastatin [Crestor] Allergy Unknown myalgia Verified 11/09/23 17:28 Review of Systems Review of Systems: Constitutional : No Fever, No Chills, No Fatigue ENT/Mouth : No sore throat, No Rhinorrhea Eyes: No Eye Pain, No Swelling, pos Redness Cardiovascular : No Chest Pain, No SOB, No Dyspnea on Exertion Respiratory : No Cough, No Sputum Gastrointestinal : No Nausea, No Vomiting, No Diarrhea, No abdominal Pain Genitourinary : No Dysuria, No Urinary Frequency, No Hematuria, Musculoskeletal : No joint pain, No Myalgias, No Joint Swelling Skin : No Skin Lesions, No rash Neuro : No Weakness, No Numbness, No Dizziness, no Headache All other systems reviewed and are negative [facility] Past Medical History Attestation statement: The following information was validated with the patient. Source: old records reviewed Medical History Stasis leg ulcer Pacemaker History of TIA (transient ischemic attack) (~2021) History of COVID-19 Tension headache Meningioma Hypertrophic cardiomyopathy Hearing loss Diastolic CHF, 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 Frequency of micturition Chronic abdominal pain Peripheral neuropathy Constipation Diverticulitis Polyarthralgia Primary osteoarthritis of right knee Urinary incontinence History of CVA (cerebrovascular accident) (~2018) Protrusion of lumbar intervertebral disc History of rib fracture Peripheral vascular disease GERD (gastroesophageal reflux disease) Obstructive sleep apnea BPH (benign prostatic hyperplasia) Anxiety and depression Paroxysmal atrial fibrillation COPD (chronic obstructive pulmonary disease) Obesity (BMI 30-39.9) Hypercholesterolemia Hypertension Anemia Current use of anticoagulant therapy Surgical History History of pacemaker History of colonoscopy History of total right hip replacement (~2016) History of transurethral resection of prostate History of tonsillectomy History of left knee replacement (~2007) Family History Family History Father No problems noted. 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 Oriented X3. No acute distress. Eyes: Pupils equal, round and reactive to light. R eye large subconj hemorrhage no hyphema normal pupil, normal EOM, normal vision, no photophobia, external exam is normal ENT: Pharynx normal. Neck: Normal inspection. Neck supple. CVS: Normal heart rate and rhythm. Pulses normal. Respiratory: No respiratory distress. Breath sounds normal. Abdomen: Soft and nontender. Skin: Skin warm and dry. Normal skin color. Normal skin turgor. Extremities: No lower extremity edema. No calf ttp Neuro: Oriented X 3. No motor deficit. No sensory deficit. Medical Decision Making Medical Decision Making [facility] Narrative: 87 yo male with PMH of HTN, TIAs, PPM for complete heart block, CHF, hypertrophic cardiomyopathy, PAF on xarelto, COPD, anxiety and depression, anemia, prior GCA here with c/o R subconj hemorrhage no trauma reported he has no vision changes on exam at this time will need ESR and did discuss reassurance and that this will take a while to heal. He has no pain or change in vision on my exam. Differential Diagnosis Differential Diagnoses: The differential diagnosis associated with the presentation includes subconj hemorrhage, vasculitis Admission/Observation Consideration of admission/observation: Escalation of care including admission/observation considered not toxic, no vision changes stable for DC Lab Data [facility] Lab Attestation statement: I reviewed the patient's lab results. Independent Historian Clinical information obtained from an independent historian. History obtained from or confirmed by: EMS External Record Review External record reviewed: Inpatient record and Office record Discharge Plan Discharge Clinical Impression: Subconjunctival hemorrhage Patient Disposition: Home, Self-Care Instructions: Subconjunctival Hemorrhage (ED) Additional Instructions: this will take a while to heal. it is going to turn dark red and then yellow return for swollen painful eye that is bulging or loss of vision Prescriptions: No Action tamsulosin 0.4 mg capsule 0.4 mg PO DAILY 90 Days Qty: 90 3RF furosemide 40 mg tablet 40 mg PO DAILY Qty: 30 5RF docusate sodium 100 mg capsule 100 mg PO BID Qty: 60 5RF Xarelto 20 mg tablet 20 mg PO QPM Qty: 28 5RF atorvastatin 80 mg tablet 80 mg PO BEDTIME potassium chloride 10 mEq tablet extended release 1 tab PO BID fluticasone furoate-vilanterol [Breo Ellipta] 200-25 mcg/dose Blister With Device 1 inh INHALATION DAILY multivitamin Tablet 1 tab PO DAILY losartan 50 mg tablet 50 mg PO DAILY ferrous sulfate [FeroSul] 325 mg (65 mg iron) tablet 325 mg PO DAILY fluticasone propionate 50 mcg/actuation spray,suspension 1 spray intranasal DAILY PRN (Reason: Allergy Symptoms) molnupiravir 200 mg capsule 800 mg PO Q12H 5 Days Qty: 40 0RF carvedilol 25 mg tablet 25 mg PO BID CertaVite Senior 0.4 mg-300 mcg- 250 mcg tablet PO sucralfate 100 mg/mL suspension 10 ml PO BEDTIME Qty: 400 3RF losartan 25 mg tablet 25 mg PO DAILY ketorolac 0.5 % drops ophthalmic (eye) levocetirizine 5 mg tablet 5 mg PO DAILY aspirin 81 mg tablet,delayed release (DR/EC) 81 mg PO DAILY verapamil 120 mg tablet extended release 120 mg PO DAILY methylprednisolone 8 mg tablet PO pantoprazole 40 mg tablet,delayed release (DR/EC) 40 mg PO DAILY@0630 Qty: 30 3RF sennosides [senna] 8.6 mg tablet 8.6 mg PO BEDTIME Qty: 30 4RF Print Language: Chinese
--- NOTE | 2023-11-09 19:04 | PC.NURSE ---
This RN assumed pt care @ 1900. Pt ca&ox4, no signs of distress. Pt resting in bed comfortably, denies pain at this time. Plan of care ongoing.
[2023-11-09 19:40] LABS: Erythrocyte Sedimentation Rate 29 MM/HR (0-15)
[2023-11-09 20:00] VITALS: BP 140/64; PULSE 87; RESP 14; TEMP 36.5; O2SAT 96
[2023-11-09 20:02] VITALS: BP 140/64; PULSE 87; RESP 14; TEMP 36.5; O2SAT 96
--- NOTE | 2023-11-09 20:02 | PC.NURSE ---
Pt reports his b/p prob high because he didnt have his meds yet Plan of care ongoing.
== END 2023-11-09 20:10 | disposition home or self-care (01) ==
PROVIDERS: Emergency Provider Emergency Medicine
DX: H11.31 Conjunctival hemorrhage, right eye (principal); H57.11 Ocular pain, right eye; Z79.899 Other long term (current) drug therapy
CPT/HCPCS: 36415; 85652; 99283; 99284

== ENCOUNTER 2023-11-18 11:10 | Outpatient (AMB) | payer OTHER, SELFPAY ==
[2023-11-18 11:17] VITALS: BP 110/56; PULSE 74; O2SAT 100; BMI 36.8
--- NOTE | 2023-11-18 11:17 | MHC.OFFVIS ---
Vital Signs 11/18/23 11:17 Height 5 ft 2 in Weight 201 lb 0.985 oz BMI 36.8 BP 110/56 L Blood Pressure Location Lt brachial Position Sitting Pulse 74 Pulse Source Pulse Oximeter Pulse Oximetry (%) 100 Oxygen Delivery Method Room Air Intake Visit Reasons: 3 month follow up Intake Note: Pal presents in office today for a scheduled 3 mos FUV. CC; Pt was rx'd senna and pantoprazole at their last visit. Pt reports that they have been struggling with their reflux lately and have been worse since their last visit. Pt has been dealing with a worsening cough that seems to be exacerbated by the reflux. Pt states that the pharmacy never refilled his senna or his pantoprazole and informed him that they would call the office . No such call was received. Pt would like a refill today if possible. Pt pharmacy verified. Store Receiving Clerk Required: No Store Receiving Clerk Services: Store Receiving Clerk Offered & Declined Allergies ezetimibe [From Zetia] Allergy (Severe, Verified 11/18/23 11:24) Anaphylaxis dabigatran etexilate [From PRADAXA] Allergy (Intermediate, Verified 11/18/23 11:24) ITCHING JORGE L Inhibitors [Jorge L Inhibitors] Allergy (Mild, Verified 11/18/23 11:24) UNKNOWN, FOUND IN MEDICAL RECORD 04/[address] GIPSON apixaban [From ELIQUIS] Allergy (Unknown, Verified 11/18/23 11:24) Rash rosuvastatin [Crestor] Allergy (Unknown, Verified 11/18/23 11:24) myalgia HPI HPI 3 month follow up: Details: LAST VISIT Abdominal pain Diverticulitis GERD (gastroesophageal reflux disease) Constipation Plan Patient was encouraged to keep up with fiber. Take stool softeners and senna to help him eliminate his bowels better daily. Please remind patient to bring his medications that he takes at home with him. We want to make sure that we update his med list. Patient will return in 3 months, sooner on as needed basis. He is agreeable to this plan and verbalizes understanding of instructions. He was given the opportunity to ask questions and all questions answered. ? Thank you for allowing me to participate in his care Medications Refilled pantoprazole 40 mg PO DAILY@0630 30 tabs 3RF sennosides (senna) 8.6 mg PO BEDTIME 30 tabs 4RF TODAY'S VISIT Patient is here today for follow-up. Patient reports that he has been doing fairly well, however he states that he continues to be on methylprednisolone. Patient states that he has been on it for 6 months and can wait to get of it. Patient states that he gained weight. He feels irritated as he is unable to go for his cataract surgery. Pharmacy did not fill his prescription for pantoprazole. Patient reports that his acid reflux has been bothering him. Increase mucus in his throat. Patient denies respiratory symptoms. Patient denies any nausea or vomiting. Denies any abdominal pain or discomfort. Patient states that he is moving her bowels well. Taking senna every day and feels like this is helping. Patient denies any melena, hematochezia. Patient denies any other GI concerning symptoms. [facility] Medical History Stasis leg ulcer Pacemaker History of TIA (transient ischemic attack) (~2021) History of COVID-19 Tension headache Meningioma Hypertrophic cardiomyopathy Hearing loss Diastolic CHF, 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 Frequency of micturition Chronic abdominal pain Peripheral neuropathy Constipation Diverticulitis Polyarthralgia Primary osteoarthritis of right knee Urinary incontinence History of CVA (cerebrovascular accident) (~2018) Protrusion of lumbar intervertebral disc History of rib fracture Peripheral vascular disease GERD (gastroesophageal reflux disease) Obstructive sleep apnea BPH (benign prostatic hyperplasia) Anxiety and depression Paroxysmal atrial fibrillation COPD (chronic obstructive pulmonary disease) Obesity (BMI 30-39.9) Hypercholesterolemia Hypertension Anemia Current use of anticoagulant therapy Surgical History History of pacemaker History of colonoscopy History of total right hip replacement (~2016) History of transurethral resection of prostate History of tonsillectomy History of left knee replacement (~2007) Family History Father No problems noted. 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 Patient Tobacco Use Status: Never used Tobacco Years Smoked: 30 yrs ago Second Hand Smoke Exposure: No Advance Directives Date on File: 04/06/20 service: No Current occupational status: unemployed and retired Current occupation: Right Handed Physical Exam Vital Signs: Last Vital Signs Pulse 74 11/18/23 11:17 BP 110/56 L 11/18/23 11:17 Pulse Ox 100 11/18/23 11:17 Oxygen Delivery Method Room Air 11/18/23 11:17 BMI result Body Mass Index 36.8 Assessment & Plan Assessment & Plan (1) Abdominal pain: Code(s): R10.9 - Unspecified abdominal pain Category: Medical Qualifiers: Abdominal location: left lower quadrant Qualified Code(s): R10.32 - Left lower quadrant pain (2) Diverticulitis: Code(s): K57.92 - Diverticulitis of intestine, part unspecified, without perforation or abscess without bleeding Category: Medical (3) GERD (gastroesophageal reflux disease): Code(s): K21.9 - Gastro-esophageal reflux disease without esophagitis Category: Medical Qualifiers: Esophagitis presence: esophagitis presence not specified Qualified Code(s): K21.9 - Gastro-esophageal reflux disease without esophagitis (4) Constipation: Code(s): K59.00 - Constipation, unspecified Qualifiers: Constipation type: slow transit constipation Qualified Code(s): K59.01 - Slow transit constipation Plan Pantoprazole daily. Avoid dietary triggers and late night snacking. Staying upright for minimum 3 hours after meals discussed with patient. Continue senna daily. Follow-up in 3 months. Patient will call if he will have any GI concerning symptoms. Medications: Refilled sennosides (senna) 8.6 mg PO BEDTIME 90 tabs 4RF pantoprazole 40 mg PO DAILY@0630 90 tabs 3RF Coding Level of Care Code Est Pt Level 3 (54333) Diagnoses Left lower quadrant abdominal pain R10.32 Abdominal location: left lower quadrant Diverticulitis K57.92 Gastroesophageal reflux disease, unspecified whether esophagitis present K21.9 Esophagitis presence: esophagitis presence not specified Slow transit constipation K59.01 Constipation type: slow transit constipation Time Spent (min) 25 Comment 15 minutes spent with patient and additional 10 minutes spent reviewing his records
== END 2023-11-18 12:02 | disposition home or self-care (01) ==
PROVIDERS: PCP Internal Medicine; Visit Provider Nurse Practitioner Family
DX: R10.32 Left lower quadrant pain (principal); K57.92 Diverticulitis of intestine, part unspecified, without perforation or abscess without bleeding; K21.9 Gastro-esophageal reflux disease without esophagitis; K59.01 Slow transit constipation
CPT/HCPCS: 99213

== ENCOUNTER → 2023-11-18 11:10 | Outpatient (BNVA) | payer OTHER, SELFPAY | PROVIDERS: PCP Internal Medicine; Visit Provider Nurse Practitioner Family | DX: K21.9 Gastro-esophageal reflux disease without esophagitis (principal); K59.01 Slow transit constipation; K57.92 Diverticulitis of intestine, part unspecified, without perforation or abscess without bleeding; R10.32 Left lower quadrant pain | CPT/HCPCS: 99212 ==

== ENCOUNTER 2023-12-17 10:53 | Outpatient (REF) | payer OTHER, SELFPAY ==
--- NOTE | ~2023-12-17 | XR_ITS ---
EXAMINATION: XR FOOT, RIGHT CLINICAL INFORMATION: Pain of right great toe. COMPARISON: None available. TECHNIQUE: AP, lateral, and oblique views of the right foot. FINDINGS: Diffuse demineralization. Severe degenerative changes in the first metatarsophalangeal joint with joint space narrowing and hypertrophic change. Extensive vascular calcifications. Moderate degenerative changes in the IP joint of the great toe. Prominent posterior calcaneal spur. XR/XR foot RT min 3V IMPRESSION: 1. Severe degenerative changes first metatarsophalangeal joint. 2. Prominent posterior calcaneal spur. Electronically signed by: Kasie Franco MD 01/12/2024 07:22 AM EST
== END 2023-12-17 10:54 | disposition home or self-care (01) ==
LOC: HO.XRAY 10:53
PROVIDERS: PCP Registered Nurse; Visit Provider Registered Nurse
DX: M79.674 Pain in right toe(s) (principal)
CPT/HCPCS: 73630

== ENCOUNTER 2024-01-22 17:28 | Emergency (ER) | payer OTHER, SELFPAY ==
--- NOTE | ~2024-01-22 | XR_ITS ---
EXAMINATION: XR LUMBOSACRAL SPINE CLINICAL INFORMATION: pain COMPARISON: Lumbar spine radiographs dated October 13, 2017. TECHNIQUE: 4 views of the lumbosacral spine. FINDINGS / XR/XR lumbar spine 2-3V IMPRESSION: There is grade 1/2 anterolisthesis of L5 in relation to S1.The vertebral bodies demonstrate preserved stature. There is multilevel intervertebral disc space narrowing, most pronounced at L4-5 and L5-S1. There is endplate osteophytosis at L5-S1. There is extensive facet arthropathy at L4-5 and L5-S1. The sacroiliac joints are intact. No acute fracture. There is extensive calcification of the aorta and iliac arteries. Electronically signed by: Luis Colvin DO 01/22/2024 07:59 PM EST
[2024-01-22 17:36] VITALS: BP 162/70; BP 200/80; PULSE 76; RESP 18; TEMP 36.4; O2SAT 96; O2SAT 97; BMI 34.5
--- NOTE | 2024-01-22 18:20 | ED_ITS ---
HPI - General Adult General Chief complaint: General Medical Stated complaint: L flank pain Time Seen by Provider: 01/22/24 17:47 Source: patient, RN notes reviewed and old records reviewed Mode of arrival: EMS Limitations: no limitations History of Present Illness ED Provider: Kalyan HPI narrative: 88-year-old male with past medical history significant for coronary artery disease, brain TIA, heart failure, COPD, obesity, hypertension, hyperlipidemia, status post pacemaker implantation presents for evaluation of back pain The patient has had worsening back pain for the last few days. He denies any specific injury. His pain does not radiate. His pain is worse with movement His pain is a 6/10 Denies any numbness, tingling. Denies any bladder or bowel incontinence pain Denies any burning with urination, blood in the urine. He reports his pain in the middle of his lower back but slightly left of center. He took some Tylenol right before coming to the hospital with minimal improvement No other complaints or concerns at this time. The patient reports he was told many years ago that he has ?a pinched nerve but they can not do surgery because of my health. ? Related Data Home Medications ?Medication ?Instructions ?Recorded ?Confirmed atorvastatin 80 mg tablet 80 mg PO BEDTIME 06/03/20 12/06/22 carvedilol 25 mg tablet 25 mg PO BID 12/04/20 12/06/22 potassium chloride 10 mEq 1 tab PO BID 11/14/21 12/06/22 tablet,extended release fluticasone furoate 200 1 inh inhalation DAILY 12/06/22 12/06/22 mcg-vilanterol 25 mcg/dose inhalation powder (Breo Ellipta) ferrous sulfate 325 mg (65 mg 325 mg PO DAILY 12/07/22 12/07/22 iron) tablet (FeroSul) fluticasone propionate 50 1 spray intranasal DAILY PRN 12/07/22 12/07/22 mcg/actuation nasal Allergy Symptoms spray,suspension losartan 50 mg tablet 50 mg PO DAILY 12/07/22 12/07/22 multivitamin 1 tab PO DAILY 12/07/22 12/07/22 trlbnxks-qjd-ljjfj acid 0.4 tab PO 01/14/23 mg-lycopene 300 mcg-lutein 250 mcg tablet (CertaVite Senior) aspirin 81 mg tablet,delayed 81 mg PO DAILY 08/17/23 release ketorolac 0.5 % eye drops drp ophthalmic (eye) 08/17/23 levocetirizine 5 mg tablet 5 mg PO DAILY 08/17/23 losartan 25 mg tablet 25 mg PO DAILY 08/17/23 methylprednisolone 8 mg tablet mg PO 08/17/23 verapamil 120 mg tablet,extended 120 mg PO DAILY 08/17/23 release albuterol sulfate 90 mcg/actuation inhalation 11/18/23 aerosol inhaler methylprednisolone 4 mg tablet mg PO 11/18/23 Previous Rx's ?Medication ?Instructions ?Recorded tamsulosin 0.4 mg capsule 0.4 mg PO DAILY 90 days #90 caps 03/29/21 furosemide 40 mg tablet 40 mg PO DAILY #30 tabs 12/05/22 molnupiravir 200 mg capsule (EUA) 800 mg (4 x 200 mg) PO Q12H 5 days 04/10/23 #40 caps docusate sodium 100 mg capsule 100 mg PO BID #60 caps 05/20/23 sucralfate 100 mg/mL oral 10 ml PO BEDTIME #400 mL 11/16/23 suspension pantoprazole 40 mg tablet,delayed 40 mg PO DAILY@0630 #90 tabs 11/18/23 release sennosides 8.6 mg tablet (senna) 8.6 mg PO BEDTIME #90 tabs 11/18/23 rivaroxaban 20 mg tablet (Xarelto) 20 mg PO QPM #90 tabs 12/04/23 dexamethasone 4 mg tablet 4 mg PO BID #6 tabs 01/22/24 tramadol 50 mg tablet 50 mg PO Q8H PRN severe pain 01/22/24 (scale score 7-10) #12 tabs Allergies Allergy/AdvReac Type Severity Reaction Status Date / Time ezetimibe [From Zetia] Allergy Severe Anaphylaxis Verified 01/22/24 17:42 dabigatran etexilate Allergy Intermediate ITCHING Verified 01/22/24 17:42 [From PRADAXA] JORGE L Inhibitors Allergy Mild UNKNOWN, Verified 01/22/24 17:42 [Jorge L Inhibitors] FOUND IN MEDICAL RECORD 04/[address] GIPSON apixaban [From ELIQUIS] Allergy Unknown Rash Verified 01/22/24 17:42 rosuvastatin [Crestor] Allergy Unknown myalgia Verified 01/22/24 17:42 Review of Systems 2 Constitutional: Constitutional: Denies body ache(s), Denies chills and Denies fever(s) Eyes: Eyes: Denies blurry vision ENT: Denies dysphagia, Denies vertigo and Denies dizziness Cardiovascular: Cardiovascular: Denies chest pain, Reports leg edema (R>L) and Denies dyspnea Respiratory: Respiratory: Denies cough and Denies dyspnea Gastrointestinal: Gastrointestinal: Denies abdominal pain, Denies dysphagia, Denies nausea and Denies vomiting Musculoskeletal: Musculoskeletal: Reports back pain Integumentary/Breasts: Skin/Breast: Denies rash Neurologic: Denies vertigo and Denies dizziness Psychiatric: Psychiatric: Denies anxiety [facility] Past Medical History Medical History Stasis leg ulcer Pacemaker History of TIA (transient ischemic attack) (~2021) History of COVID-19 Tension headache Meningioma Hypertrophic cardiomyopathy Hearing loss Diastolic CHF, 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 Frequency of micturition Chronic abdominal pain Peripheral neuropathy Constipation Diverticulitis Polyarthralgia Primary osteoarthritis of right knee Urinary incontinence History of CVA (cerebrovascular accident) (~2018) Protrusion of lumbar intervertebral disc History of rib fracture Peripheral vascular disease GERD (gastroesophageal reflux disease) Obstructive sleep apnea BPH (benign prostatic hyperplasia) Anxiety and depression Paroxysmal atrial fibrillation COPD (chronic obstructive pulmonary disease) Obesity (BMI 30-39.9) Hypercholesterolemia Hypertension Anemia Current use of anticoagulant therapy Surgical History History of pacemaker History of colonoscopy History of total right hip replacement (~2016) History of transurethral resection of prostate History of tonsillectomy History of left knee replacement (~2007) Family History Family History Father No problems noted. 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 Patient Tobacco Use Status: Never used Tobacco Years Smoked: 30 yrs ago Second Hand Smoke Exposure: No Advance Directives: Yes Advance Directives on File: Yes Advance Directives Date on File: 04/06/20 Do you have a plan to hurt others: No Plan service: No Current occupational status: unemployed and retired Current occupation: Right Handed Physical Exam ED Vital Signs: Vital Signs - 24 hr 01/22/24 17:36 01/22/24 20:27 Temperature 97.6 F 97.8 F Pulse Rate 76 80 Respiratory Rate 18 15 Blood Pressure 162/70 H 157/60 H Pulse Oximetry 96 97 Oxygen Delivery Method Room Air Room Air BMI result Body Mass Index 34.5 Const General: healthy appearing, comfortable, no acute distress, alert and awake Nutritional Appearance: well nourished Orientation/consciousness: patient oriented x3 HENMT Head: Yes normocephalic and Yes atraumatic Eyes Eyelids: Yes eyelids normal Conjunctivae: conjunctivae normal Sclerae: sclerae normal Corneas: corneas normal Pupils: Equal, round and reactive pupils present EOM: EOMs intact bilaterally Neck Neck: Yes full ROM Resp Effort & Inspection: normal respiratory effort, able to speak in complete sentences and not labored Cardio Other: Patient has bilateral pitting edema, right greater than left. No erythema, nontender. Rate: regular rate Rhythm: regular rhythm GI Inspection: No distended Palpation (GI): Soft to palpation, not firm, nontender, no guarding and not rigid Back/Spine/Pelvis Other: Tenderness to the left lumbosacral region. No step-offs or deformities to the lumbar spine. Skin General skin exam: elasticity normal Neuro General: patient oriented x3 Cranial nerves: Yes Equal, round and reactive pupils present and Yes Bilaterally intact EOM present Cognition (Neuro): normal cognition Motor exam (neuro): 5/5 motor strength present throughout Extrem Other: Moving all extremities well without any obvious deformities Course Reevaluation(s) Reevaluation #1: Patient's x-ray shows degeneration in the back, the urinalysis showed no evidence of UTI or hematuria. He had adequate pain control with tramadol. Time: 23:18 Medications Administered Discontinued Medications Generic Name Dose Route Start Last Admin Trade Name Freq PRN Reason Stop Dose Admin Tramadol HCl 50 mg 01/22/24 18:22 01/22/24 19:37 Tramadol Hcl 50 Mg Tablet PO 01/22/24 18:23 50 mg ONCE ONE Administration Medical Decision Making Medical Decision Making [facility] Narrative: 88-year-old male presents for evaluation of atraumatic back pain. He reports this is chronic but exacerbated over last few days. Denies any specific injury. We will get an x-ray of the lumbar spine. Will get basic lab been urinalysis. He has no GI or symptoms. His pain is most likely muscular in origin as this is reproducible on exam were with positional changes. He is slightly hypertensive but I have a lower suspicion for AAA as the patient has no abdominal pain. Differential Diagnosis Differential Diagnoses: The differential diagnosis associated with the presentation includes Muscle strain Radiculopathy Back pain Compression fracture Lab Data 01/22/24 18:29 01/22/24 18:29 Labs: Lab Results 01/22/24 01/22/24 Range/Units 18: 22:55 WBC 12.5 H (4.8-10.8) X10*3/uL RBC 4.21 L (4.60-5.80) X10*6/uL Hgb 11.1 L (14.0-18.0) g/dl Hct 35.8 L (42.0-52.0) % MCV 85.0 (80.0-98.0) fL MCH 26.4 L (27.0-33.0) pg MCHC 31.0 (31.0-36.0) g/dl RDW 15.1 (11.0-16.0) % Plt Count 201 (160-400) X10*3/uL MPV 8.8 L (9.4-12.4) fL Immature Gran % (Auto) 1.5 H (0.0-0.4) % Neut % (Auto) 75.0 H (45-73) % Lymph % (Auto) 15.6 L (20-40) % Bacon % (Auto) 7.6 (2-11) % Eos % (Auto) 0.2 (0-4) % Baso % (Auto) 0.1 (0-2) % Lymph # (Auto) 2.0 (1.2-4.9) X10*3/uL Bacon # (Auto) 1.0 (0.1-1.2) X10*3/uL Eos # (Auto) 0.0 (0.0-0.4) X10*3/uL Baso # (Auto) 0.0 (0.0-0.2) X10*3/uL Abs Immat Gran (auto) 0.19 H (0.00-0.03) X10*3/uL Absolute Neuts (auto) 9.4 H (2.0-8.3) x10*3/uL Absolute Nucleated RBC 0.000 (0.0-0.012) X10*3/uL Nucleated RBC % (auto) 0.0 (0.0-0.2) /100WBC Sodium 145 (135-145) mmol/L Potassium 4.3 (3.3-5.1) mmol/L Chloride 109 H (96-108) mmol/L Carbon Dioxide 24 (22-29) mmol/L Anion Gap 16 (12-20) BUN 23 H (9-16) mg/dL Creatinine 1.07 (0.5-1.4) mg/dL Estim Creat Clear Calc 46.0 Estimated GFR > 60 Random Glucose 82 (60-115) mg/dL Calcium 8.6 (8.4-10.2) mg/dL Total Bilirubin 0.3 (0.0-1.0) mg/dL AST 24 (5-37) U/L ALT 23 (0-40) U/L Alkaline Phosphatase 39 (39-117) U/L Total Protein 5.4 L (6.5-8.0) g/dL Albumin 3.2 L (3.5-5.0) g/dL Lipase 18 (8-78) U/L Urine Color Yellow Urine Appearance Clear Urine pH 5.5 (5.0-9.0) Ur Specific [place] >= 1.030 H (1.005-1.025) Urine Protein Trace (Neg-Trace) mg/dL Urine Glucose (UA) Negative (Negative) mg/dL Urine Ketones Trace (Negative) mg/dL Urine Blood Negative (Negative) Urine Nitrite Negative (Negative) Ur Leukocyte Esterase Negative (Negative) Urine RBC 0-2 (0-2) /HPF Urine WBC 0-5 (0-5) /HPF Ur Squamous Epith Cells 0-2 (0-2) /HPF Urine Bacteria None Seen (None Seen) Hyaline Casts 0-2 (0-2) /LPF Discharge Plan Discharge Clinical Impression: Back pain Patient Disposition: Home, Self-Care Instructions: Acute Low Back Pain (ED) Additional Instructions: Your x-ray shows degenerative arthritis. Your urinalysis did not show any evidence of blood or an infection. You may take tramadol as needed for pain. You may use dexamethasone twice daily for the next 3 days Prescriptions: New dexamethasone 4 mg tablet 4 mg PO BID Qty: 6 0RF tramadol 50 mg tablet 50 mg PO Q8H PRN (Reason: severe pain (scale score 7-10)) Qty: 12 0RF No Action tamsulosin 0.4 mg capsule 0.4 mg PO DAILY 90 Days Qty: 90 3RF furosemide 40 mg tablet 40 mg PO DAILY Qty: 30 5RF docusate sodium 100 mg capsule 100 mg PO BID Qty: 60 5RF sucralfate 100 mg/mL suspension 10 ml PO BEDTIME Qty: 400 3RF Xarelto 20 mg tablet 20 mg PO QPM Qty: 90 1RF atorvastatin 80 mg tablet 80 mg PO BEDTIME potassium chloride 10 mEq tablet extended release 1 tab PO BID fluticasone furoate-vilanterol [Breo Ellipta] 200-25 mcg/dose Blister With Device 1 inh INHALATION DAILY multivitamin Tablet 1 tab PO DAILY losartan 50 mg tablet 50 mg PO DAILY ferrous sulfate [FeroSul] 325 mg (65 mg iron) tablet 325 mg PO DAILY fluticasone propionate 50 mcg/actuation spray,suspension 1 spray intranasal DAILY PRN (Reason: Allergy Symptoms) molnupiravir 200 mg capsule 800 mg PO Q12H 5 Days Qty: 40 0RF carvedilol 25 mg tablet 25 mg PO BID CertaVite Senior 0.4 mg-300 mcg- 250 mcg tablet PO losartan 25 mg tablet 25 mg PO DAILY ketorolac 0.5 % drops ophthalmic (eye) levocetirizine 5 mg tablet 5 mg PO DAILY aspirin 81 mg tablet,delayed release (DR/EC) 81 mg PO DAILY verapamil 120 mg tablet extended release 120 mg PO DAILY methylprednisolone 8 mg tablet PO methylprednisolone 4 mg tablet PO albuterol sulfate 90 mcg/actuation HFA aerosol inhaler inhalation pantoprazole 40 mg tablet,delayed release (DR/EC) 40 mg PO DAILY@0630 Qty: 90 3RF sennosides [senna] 8.6 mg tablet 8.6 mg PO BEDTIME Qty: 90 4RF Print Language: Vincentian
[2024-01-22 18:35] LABS: MANUAL DIFF FLAG NO
[2024-01-22 18:38] LABS: Basophils Percent Auto 0.1 % (0-2); Eosinophils Percent Auto 0.2 % (0-4); Hematocrit 35.8 % (42.0-52.0); Hemoglobin 11.1 g/dl (14.0-18.0); Imm Gran Abs Auto 0.19 X10*3/uL (0.00-0.03); Imm Gran Pct Auto 1.5 % (0.0-0.4); Lymphocytes Percent Auto 15.6 % (20-40); Mean Corpuscular Hemoglobin 26.4 pg (27.0-33.0); Mean Platelet Volume 8.8 fL (9.4-12.4); Monocytes Percent Auto 7.6 % (2-11); Neutrophils Absolute Auto 9.4 x10*3/uL (2.0-8.3); Platelet Count 201 X10*3/uL (160-400); Red Blood Count 4.21 X10*6/uL (4.60-5.80); Red Cell Distribution Width 15.1 % (11.0-16.0); White Blood Count 12.5 X10*3/uL (4.8-10.8)
[2024-01-22 18:51] LABS: Alanine Aminotransferase 23 U/L (0-40); Albumin Level 3.2 g/dL (3.5-5.0); Alkaline Phosphatase 39 U/L (39-117); Anion Gap 16 (12-20); Aspartate Amino Transferase 24 U/L (5-37); Bilirubin Total 0.3 mg/dL (0.0-1.0); Blood Urea Nitrogen 23 mg/dL (9-16); Calcium 8.6 mg/dL (8.4-10.2); Carbon Dioxide 24 mmol/L (22-29); Chloride 109 mmol/L (96-108); Estimated Glomerular Filt Rate > 60; Glucose Random 82 mg/dL (60-115); Lipase 18 U/L (8-78); Potassium 4.3 mmol/L (3.3-5.1); Sodium 145 mmol/L (135-145); Total Protein 5.4 g/dL (6.5-8.0)
[2024-01-22] MEDS: traMADoL HCL 50 MG TABLET PO ×2 (19:37→23:31)
--- NOTE | 2024-01-22 20:21 | PC.NURSE ---
this rn discussed pt ability to provide urine sample at this time pt states feels urge to urinate though difficulty urinating. per jen jeff order placed for bladder scan
[2024-01-22 20:27] VITALS: BP 157/60; PULSE 80; RESP 15; TEMP 36.6; O2SAT 97
--- NOTE | 2024-01-22 20:54 | PC.NURSE ---
bladder scan showed 139ml urine in bladder this rn made jen jeff aware per jeff encourage po fluids pt boosted up in bed and assisted with po fluids
[2024-01-22 23:00] LABS: Appearance Urine Clear; Color Urine Yellow; Glucose Urine UA Negative (Negative); Leukocyte Esterase Urine Negative (Negative); Nitrite Urine Negative (Negative); PH 5.5 (5.0-9.0); Specific Gravity - Urine >= 1.030 (1.005-1.025); Urine Blood Negative (Negative); Urine Ketones Trace mg/dL (Negative); Urine Protein Trace mg/dL (Neg-Trace)
[2024-01-22 23:05] LABS: Bacteria Urine None Seen (None Seen); Hyaline Casts Urine 0-2 /LPF (0-2); RBC Urine 0-2 /HPF (0-2); Squamous Epithelial Cell Urine 0-2 /HPF (0-2); WBC Urine 0-5 /HPF (0-5)
[2024-01-22 23:30] VITALS: BP 120/66; PULSE 88; RESP 16; TEMP 36.6; O2SAT 98
--- NOTE | 2024-01-23 01:10 | PC.NURSE ---
pt up for discharge awaiting transportation back home due to high fall risk
[2024-01-23 02:02] VITALS: BP 128/64; PULSE 94; RESP 18; TEMP 36.6; O2SAT 94
[2024-01-23 03:46] VITALS: BP 109/72; PULSE 83; RESP 16; TEMP 36.7; O2SAT 99
[2024-01-23 04:00] VITALS: BP 109/72; PULSE 83; RESP 16; TEMP 36.7; O2SAT 99
== END 2024-01-23 04:01 | disposition home or self-care (01) ==
PROVIDERS: Physician Assistant; Emergency Provider Emergency Medicine
DX: M54.50 Low back pain, unspecified (principal); R10.2 Pelvic and perineal pain; I25.10 Atherosclerotic heart disease of native coronary artery without angina pectoris; I10 Essential (primary) hypertension; J44.9 Chronic obstructive pulmonary disease, unspecified; Z79.899 Other long term (current) drug therapy
CPT/HCPCS: 36415; 72100; 80053; 81001; 83690; 85025; 99285

== ENCOUNTER 2024-01-26 18:30 | Emergency (ER) | payer OTHER, SELFPAY ==
[2024-01-26 18:41] VITALS: BP 108/78; BP 146/82; PULSE 81; PULSE 84; RESP 18; TEMP 36.7; O2SAT 95; O2SAT 98; BMI 45.7
--- NOTE | 2024-01-26 19:07 | ED_ITS ---
HPI - Back Pain/Injury General Chief Complaint: Back Pain/Injury Stated Complaint: back pain Time Seen by Provider: 01/26/24 19:05 Source: patient History of Present Illness ED Provider: Dr. Darryl Donato HPI Narrative: 88-year-old male with past medical history significant for coronary artery disease, brain TIA, heart failure, COPD, obesity, hypertension, hyperlipidemia, status post pacemaker implantation presents for evaluation of back pain. Patient states he was had lower back pain for 1 week. It was not recount any injury. He denies radiation of the pain to his lower extremities. He was had no loss of bowel or bladder control. The pain is worse with movement in the pain is 8/10 at its worst. Patient was seen here in the emergency department on 01/22/2024 for similar back pain. Patient had lumbar x-rays which revealed degenerative arthritis, urinalysis was unremarkable. Patient was prescribed tramadol 50 mg every 8 hours. He states that he did get some relief with this pain medication however his doctor told him to stop this medication and he does not know the reason why. Related Data Home Medications ?Medication ?Instructions ?Recorded ?Confirmed atorvastatin 80 mg tablet 80 mg PO BEDTIME 06/03/20 12/06/22 carvedilol 25 mg tablet 25 mg PO BID 12/04/20 12/06/22 potassium chloride 10 mEq 1 tab PO BID 11/14/21 12/06/22 tablet,extended release fluticasone furoate 200 1 inh inhalation DAILY 12/06/22 12/06/22 mcg-vilanterol 25 mcg/dose inhalation powder (Breo Ellipta) ferrous sulfate 325 mg (65 mg 325 mg PO DAILY 12/07/22 12/07/22 iron) tablet (FeroSul) fluticasone propionate 50 1 spray intranasal DAILY PRN 12/07/22 12/07/22 mcg/actuation nasal Allergy Symptoms spray,suspension losartan 50 mg tablet 50 mg PO DAILY 12/07/22 12/07/22 multivitamin 1 tab PO DAILY 12/07/22 12/07/22 [id number]-[id number] acid 0.4 tab PO 01/14/23 mg-lycopene 300 mcg-lutein 250 mcg tablet (CertaVite Senior) aspirin 81 mg tablet,delayed 81 mg PO DAILY 08/17/23 release ketorolac 0.5 % eye drops drp ophthalmic (eye) 08/17/23 levocetirizine 5 mg tablet 5 mg PO DAILY 08/17/23 losartan 25 mg tablet 25 mg PO DAILY 08/17/23 methylprednisolone 8 mg tablet mg PO 08/17/23 verapamil 120 mg tablet,extended 120 mg PO DAILY 08/17/23 release albuterol sulfate 90 mcg/actuation inhalation 11/18/23 aerosol inhaler methylprednisolone 4 mg tablet mg PO 11/18/23 Previous Rx's ?Medication ?Instructions ?Recorded tamsulosin 0.4 mg capsule 0.4 mg PO DAILY 90 days #90 caps 03/29/21 furosemide 40 mg tablet 40 mg PO DAILY #30 tabs 12/05/22 molnupiravir 200 mg capsule (EUA) 800 mg (4 x 200 mg) PO Q12H 5 days 04/10/23 #40 caps docusate sodium 100 mg capsule 100 mg PO BID #60 caps 05/20/23 sucralfate 100 mg/mL oral 10 ml PO BEDTIME #400 mL 11/16/23 suspension pantoprazole 40 mg tablet,delayed 40 mg PO DAILY@0630 #90 tabs 11/18/23 release sennosides 8.6 mg tablet (senna) 8.6 mg PO BEDTIME #90 tabs 11/18/23 rivaroxaban 20 mg tablet (Xarelto) 20 mg PO QPM #90 tabs 12/04/23 dexamethasone 4 mg tablet 4 mg PO BID #6 tabs 01/22/24 tramadol 50 mg tablet 50 mg PO Q8H PRN severe pain 01/22/24 (scale score 7-10) #12 tabs lidocaine 4 % topical patch 1 patch topical DAILY PRN Lower 01/26/24 (Aspercreme (lidocaine)) back pain #5 ea Allergies Allergy/AdvReac Type Severity Reaction Status Date / Time ezetimibe [From Zetia] Allergy Severe Anaphylaxis Verified 01/26/24 18:42 dabigatran etexilate Allergy Intermediate ITCHING Verified 01/26/24 18:42 [From PRADAXA] JORGE L Inhibitors Allergy Mild UNKNOWN, Verified 01/26/24 18:42 [Jorge L Inhibitors] FOUND IN MEDICAL RECORD 04/[address] GIPSON apixaban [From ELIQUIS] Allergy Unknown Rash Verified 01/26/24 18:42 rosuvastatin [Crestor] Allergy Unknown myalgia Verified 01/26/24 18:42 Review of Systems Review of Systems: Yes all other systems are reviewed and are negative [facility] Past Medical History [facility] Narrative: Social history: He lives with his . He denies tobacco and alcohol use. Medical History Stasis leg ulcer Pacemaker History of TIA (transient ischemic attack) (~2021) History of COVID-19 Tension headache Meningioma Hypertrophic cardiomyopathy Hearing loss Diastolic CHF, 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 Frequency of micturition Chronic abdominal pain Peripheral neuropathy Constipation Diverticulitis Polyarthralgia Primary osteoarthritis of right knee Urinary incontinence History of CVA (cerebrovascular accident) (~2018) Protrusion of lumbar intervertebral disc History of rib fracture Peripheral vascular disease GERD (gastroesophageal reflux disease) Obstructive sleep apnea BPH (benign prostatic hyperplasia) Anxiety and depression Paroxysmal atrial fibrillation COPD (chronic obstructive pulmonary disease) Obesity (BMI 30-39.9) Hypercholesterolemia Hypertension Anemia Current use of anticoagulant therapy Surgical History History of pacemaker History of colonoscopy History of total right hip replacement (~2016) History of transurethral resection of prostate History of tonsillectomy History of left knee replacement (~2007) Family History Family History Father No problems noted. 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 Patient Tobacco Use Status: Never used Tobacco Years Smoked: 30 yrs ago Smoked in Last 30 Days: No Second Hand Smoke Exposure: No Use of substances other than those prescribed or required for medical reasons: No Advance Directives: Yes Advance Directives on File: Yes Advance Directives Date on File: 04/06/20 Do you have a plan to hurt others: No Plan service: No Current occupational status: unemployed and retired Current occupation: Right Handed Physical Exam Vital Signs: Vital Signs: Last Vital Signs Temp 98.0 F 01/26/24 18:41 Pulse 81 12/03/24 18:41 Resp 18 01/26/24 18:41 BP 108/78 01/26/24 18:41 Pulse Ox 95 01/26/24 18:41 O2 Del Method Room Air 01/26/24 18:41 BMI result Body Mass Index 45.7 Vital signs were normal Exam: General: Awake, alert in no distress, weight was 113.4 kg, elevated BMI 45.7 kg per m2 Head: Normocephalic, atraumatic EENT: PERRL, Lids normal, sclera normal, conjunctiva normal, nose normal , ears normal, throat without erythema or exudates Neck: Supple, no adenopathy Lung: breath sounds symmetric, no wheezing, rales or rhonchi Chest: symmetric movement, nontender Heart: regular rate and rhythm, normal S1, S2 no murmurs or rubs Abdomen: soft, obese, non-tender, nondistended, normal bowel sounds Back: Patient has no tenderness palpation over his vertebrae, he was negative straight leg raises bilaterally, he was very localized tenderness palpation over the lower lumbar sacral paraspinal muscles on the left with no tenderness in the right, there is no spasm of these medications. Extremities: no deformities, moves all extremities symmetrically Neuro: Awake, alert, oriented, normal speech, cranial nerves intact, moves all extremities symmetrically Psych: Pleasant, cooperative Medical Decision Making Medical Decision Making MDM Narrative: 88-year-old male with past medical history significant for coronary artery disea se, brain TIA, heart failure, COPD, obesity, hypertension, hyperlipidemia, status post pacemaker implantation presents for evaluation of back pain x1 week, this is a 2nd visit. He was seen on 01/22/2024, urinalysis was negative x-rays were consistent with a degenerative arthritis. He was given a prescription for tramadol 50 mg 3 times a day which gave him some relief his pain but is primary care provider told him to stop this medication. States that the pain is now 8/10. Vital signs were normal. Physical exam revealed no point vertebral tenderness negative straight leg raises and tenderness palpation of the paraspinal muscles in the lower lumbar sacral area. Differential diagnosis: ?Includes but is not limited to degenerative disc disease, degenerative arthritis, musculoskeletal strain Course: 19:28 Patient's findings are consistent with musculoskeletal strain of the lumbar sacral paraspinal muscles on the left. Patient was treated with a 4% lidocaine patch to the area of pain. He was advised to remove this patch in 12 hours and then apply 1 patch every 12 hours today pain. She was advised to take Tylenol for pain. I told him that he should contact his doctor to discuss further pain management. He was printed and verbal instructions and discharged home Admission/Observation Consideration of admission/observation: Escalation of care including admission/observation considered (No) Prescription Management I considered prescription management with: Pain Medication (Lidocaine patch) Discharge Plan Discharge Clinical Impression: Strain of lumbar paraspinal muscle Patient Disposition: Home, Self-Care Instructions: Acute Low Back Pain (ED) Additional Instructions: Your exam is consistent with a strain of the muscles of your lower back. Take Tylenol (acetaminophen) 500 mg pills, 2 pills every 6 hours as needed for pain or fever. We applied a lidocaine patch to your left lower back at 8pm. You can leave the patch on for 12 hours and then removed this patch at 8am. Can repeat this for 5 days total to see if this helps your pain. Call your doctor to discuss further pain management, Follow-up with your doctor in 2 days. Please return to the emergency department if your symptoms get worse or if you develop any symptoms that are concerning to you. Prescriptions: New lidocaine [Aspercreme (lidocaine)] 4 % adhesive patch,medicated 1 patch topical DAILY PRN (Reason: Lower back pain ) Qty: 5 0RF Rx Instructions: Remove patch after 12 hours No Action tamsulosin 0.4 mg capsule 0.4 mg PO DAILY 90 Days Qty: 90 3RF furosemide 40 mg tablet 40 mg PO DAILY Qty: 30 5RF docusate sodium 100 mg capsule 100 mg PO BID Qty: 60 5RF sucralfate 100 mg/mL suspension 10 ml PO BEDTIME Qty: 400 3RF Xarelto 20 mg tablet 20 mg PO QPM Qty: 90 1RF atorvastatin 80 mg tablet 80 mg PO BEDTIME potassium chloride 10 mEq tablet extended release 1 tab PO BID fluticasone furoate-vilanterol [Breo Ellipta] 200-25 mcg/dose Blister With Device 1 inh INHALATION DAILY multivitamin Tablet 1 tab PO DAILY losartan 50 mg tablet 50 mg PO DAILY ferrous sulfate [FeroSul] 325 mg (65 mg iron) tablet 325 mg PO DAILY fluticasone propionate 50 mcg/actuation spray,suspension 1 spray intranasal DAILY PRN (Reason: Allergy Symptoms) molnupiravir 200 mg capsule 800 mg PO Q12H 5 Days Qty: 40 0RF dexamethasone 4 mg tablet 4 mg PO BID Qty: 6 0RF tramadol 50 mg tablet 50 mg PO Q8H PRN (Reason: severe pain (scale score 7-10)) Qty: 12 0RF carvedilol 25 mg tablet 25 mg PO BID CertaVite Senior 0.4 mg-300 mcg- 250 mcg tablet PO losartan 25 mg tablet 25 mg PO DAILY ketorolac 0.5 % drops ophthalmic (eye) levocetirizine 5 mg tablet 5 mg PO DAILY aspirin 81 mg tablet,delayed release (DR/EC) 81 mg PO DAILY verapamil 120 mg tablet extended release 120 mg PO DAILY methylprednisolone 8 mg tablet PO methylprednisolone 4 mg tablet PO albuterol sulfate 90 mcg/actuation HFA aerosol inhaler inhalation pantoprazole 40 mg tablet,delayed release (DR/EC) 40 mg PO DAILY@0630 Qty: 90 3RF sennosides [senna] 8.6 mg tablet 8.6 mg PO BEDTIME Qty: 90 4RF Print Language: Scottish
[2024-01-26] MEDS: Lidocaine 4 % Patch ADH..PATCH 1 PATCH TRANSDERMA (19:38)
[2024-01-26 20:58] VITALS: BP 108/78; PULSE 81; RESP 18; TEMP 36.7; O2SAT 95
--- OUTSIDE RECORDS SUMMARY | 2024-02-02 15:59 | XMS_ITS | Continuity of Care Document ---
Author Organization [place] in [facility] Address [address] [place] [address] Care Team Providers Care Supervisor Marble Name Role Phone HIM CCA OTHER KISHORE ROBERSON Primary Care Provider Assessment No assessment recorded. Plan of Treatment Reminders Order Date Submit Date Provider Last Modified By Organization Details Last Modified Time Details Appointments None record ed. Lab None record ed. Referral None record ed. Procedures None record ed. Surgeries None record ed. Imaging None record ed. Medication Orders None record ed. Patient TargetsNo targets recorded. Patient InstructionsNo instructions recorded. Reason for Referral None Reported. Results Created Date Observation Date Name Description Value Unit Range Abnormal Flag Note LastModifiedBy Organization Detail LastModifiedTime 12/11/19 24 12/11/2023 elect anuel diogr am No observ ation record ed. [facility] [address], [place], [address], 12/11/2023 23:09:40 Result Notes None recorded. Medical Equipment None Reported. Allergies Allergen ID Allergen Name Allergen Category Reaction Reaction Severity Criticality Documentation Date Start Date Code Code System Note Provider Name and Address Organization Details Recorded Time 937 dabigatra n etexilate medicatio n Not available Not available Not available 10/22/2021 05326 42 RxNorm Arti Messina MD [address] [place] [address],[address], [place], [address], [facility] 2 17:14:06 938 Product containin g angiotens in-conver ting enzyme inhibitor (product) medicatio n Not available Not available Not available 10/22/2021 82685 009 SNOMED Arti Messina MD [address] [place] [address],[address], [place], [address], [facility] 2 17:14:14 939 ezetimibe medicatio n Not available Not available Not available 10/22/2021 68477 8 RxNorm Not Available [facility] - production 4 16:01:50 940 apixaban medicatio n Not available Not available Not available 10/22/2021 99083 30 RxNorm Not Available [facility] - production 4 16:01:50 941 Lipitor medicatio n Not available Not available Not available 10/22/2021 86860 5 RxNorm Arti Messina MD [address] [facility],[address], [place], [address], [facility] [employer] 2 17:47:42 Medications Name Sig Start Date Stop Date Status Note LastModified by Organization Details LastModified Time delivery fee active Not Available Not Available Not Available verapamil ER (SR) 120 mg tablet,exten ded release active Not Available Not Available Not Available losartan 50 mg tablet active Not Available Not Available No t Available cyclobenzapr ine 10 mg tablet TAKE 1 TABLET BY MOUTH EVERY 8 HOURS active Not Available Not Available No t Available furosemide 40 mg tablet TAKE 1 TABLET BY MOUTH EVERY DAY. active Not Available Not Available No t Available atorvastatin 80 mg tablet active Not Available Not Available Not Available carvedilol 25 mg tablet active Not Available Not Available Not Available prednisone 10 mg tablet active Not Available Not Available Not Available carvedilol 12.5 mg tablet active Not Available Not Available Not Available albuterol sulfate 2.5 mg/3 mL (0.083 %) solution for nebulization Inhale 3 mL 3 times a day by nebulizatio n route as needed. active Not Available Not Available No t Available cetirizine 10 mg tablet active Not Available Not Available Not Available cefpodoxime 200 mg tablet active Not Available Not Available Not Available senna 8.6 mg tablet TAKE 1 TABLET BY MOUTH AT BEDTIME active Not Available Not Available No t Available sucralfate 100 mg/mL oral suspension SHAKE LIQUID AND TAKE 10 ML BY MOUTH AT BEDTIME active Not Available Not Available No t Available polyvinyl alcohol 1.4 % eye drops active Not Available Not Available Not Available prednisone 20 mg tablet active Not Available Not Available Not Available verapamil ER (SR) 180 mg tablet,exten ded release active Not Available Not Available Not Available methylpredni solone 4 mg tablet active Not Available Not Available Not Available cyanocobalam in (vit B-12) 1,000 mcg tablet active Not Available Not Available N ot Available triamcinolon e acetonide 0.5 % topical ointment active Not Available Not Available Not Available amlodipine 2.5 mg tablet active Not Available Not Available Not Available potassium chloride ER 10 mEq tablet,exten ded release active Not Available Not Available Not Available metronidazol e 500 mg tablet TAKE 1 TABLET BY MOUTH EVERY 8 HOURS active Not Available Not Available No t Available dextromethor kimball-guaifen esin 10 mg-100 mg/5 mL oral syrup Take 5 mL every 6 hours by oral route. 2021 active Not Available Not Available Not Avai lable ciprofloxaci n 500 mg tablet Take 1 tablet every 12 hours by oral route for 13 days. active Not Available Not Available No t Available sulfamethoxa zole 800 mg-trimethop rim 160 mg tablet active Not Available Not Available Not Available aspirin 81 mg tablet,delay ed release active Not Available Not Available N ot Available tramadol 50 mg tablet active Not Available Not Available No t Available ketorolac 0.5 % eye drops INSTILL 1 DROP BOTH EYES FOUR TIMES DAILY active Not Available Not Available Not Available cefadroxil 500 mg capsule active Not Available Not Available Not Available verapamil ER 180 mg 24 hr capsule,exte nded release active Not Available Not Available Not Available hydrocortiso ne 2.5 % topical cream with perineal applicator active Not Available Not Available N ot Available tamsulosin 0.4 mg capsule active Not Available Not Available Not Available hydrocortiso ne 1 % topical cream active Not Available Not Available Not Available doxycycline monohydrate 100 mg capsule TAKE 1 CAPSULE BY MOUTH TWICE DAILY FOR 7 DAYS active Not Available Not Available No t Available cephalexin 500 mg capsule Take 1 capsule every 8 hours by oral route for 5 days. active Not Available Not Available Not Available methylpredni solone 8 mg tablet TAKE 1 TABLET BY MOUTH EVERY 8 HOURS WITH FOOD OR MILK FOR 14 DAYS active Not Available Not Available No t Available pantoprazole 40 mg tablet,delay ed release TAKE 1 TABLET BY MOUTH DAILY AT 6.30 AM active Not Available Not Available N ot Available verapamil ER (PM) 200 mg capsule 24hr pellet CT,ext.relea se active Not Available Not Available Not Available losartan 25 mg tablet active Not Available Not Available No t Available docusate sodium 100 mg capsule Take 1 capsule every day by oral route. active Not Available Not Available No t Available codeine 10 mg-guaifenes in 100 mg/5 mL oral liquid TAKE 5 ML BY MOUTH EVERY 6 HOURS NEEDED FOR COLD SYMPTOMS active Not Available Not Available No t Available bisacodyl 5 mg tablet,delay ed release active Not Available Not Available N ot Available furosemide 20 mg tablet Take 20 mg every day by oral route in the morning for 7 days. active Not Available Not Available Not Available gabapentin 100 mg capsule active Not Available Not Available Not Available polyethylene glycol 3350 17 gram/dose oral powder active Not Available Not Available Not Available levofloxacin 500 mg tablet TAKE 1 TABLET BY MOUTH DAILY active Not Available Not Available Not Available levofloxacin 750 mg tablet Take 1 tablet every day by oral route for 1 day. 2021 active Not Available Not Available Not Avai lable ferrous sulfate 325 mg (65 mg iron) tablet,delay ed release active Not Available Not Available N ot Available losartan 100 mg tablet active Not Available Not Available No t Available fluticasone propionate 50 mcg/actuatio n nasal spray,suspen janny active Not Available Not Available Not Available clotrimazole 1 % topical cream active Not Available Not Available Not Available ipratropium bromide 21 mcg (0.03 %) nasal spray active Not Available Not Available Not Available amoxicillin 875 mg-potassium clavulanate 125 mg tablet TAKE 1 TABLET BY MOUTH TWICE DAILY FOR 10 DAYS active Not Available Not Available No t Available Ventolin HFA 90 mcg/actuatio n aerosol inhaler active Not Available Not Available Not Available simethicone 80 mg chewable tablet active Not Available Not Available Not Available cyclobenzapr ine 5 mg tablet Take 1 tablet 3 times a day by oral route for 4 days. 2023 active Not Available Not Available Not Avai lable FeroSul 325 mg (65 mg iron) tablet active Not Available Not Available Not Available levocetirizi ne 5 mg tablet active Not Available Not Available Not Available diclofenac 1 % topical gel active Not Available Not Available Not Available Xarelto 15 mg tablet active Not Available Not Available No t Available Xarelto 20 mg tablet active Not Available Not Available No t Available Linzess 145 mcg capsule active Not Available Not Available Not Available CertaVite Senior 0.4 mg-300 mcg-250 mcg tablet active Not Available Not Available Not Available Breo Ellipta 200 mcg-25 mcg/dose powder for inhalation active Not Available Not Available N ot Available Linzess 72 mcg capsule active Not Available Not Available Not Available Trulance 3 mg tablet active Not Available Not Available No t Available Lagevrio 200 mg capsule (EUA) TAKE 4 CAPSULES BY MOUTH EVERY 12 HOURS FOR 5 DAYS active Not Available Not Available N ot Available Vitals Date Recorded Body temperature Body weight Respiratory rate Heart rate Oxygen saturation Oxygen saturation in Arterial blood by Pulse oximetry Body height Systolic blood pressure Diastolic blood pressure Provider Name and Address Organization Details Last Updated DateTime 98.4 [degF] 60013.3 6 g 18 /min 78 /min 99 % 99 % 157.48 cm 132 mm[Hg] 74 mm[Hg] Not Available [facility] production 4 18:19:34 Social History None recorded. Functional Status None recorded. Mental Status None recorded. Family History Nothing Reported. Medical History No medical history recorded. Past Encounters Encounter ID Performer Location Encounter Start Date Encounter Closed Date Diagnosis/Indication Diagnosis SNOMED-CT Code Diagnosis ICD10 Code [id number] Lance Guerrero MD [facility] [address] [place] [phone] 10/21/2023 16:04:17 10/21/2023 22:32:37 Viral upper respiratory tract infection 015437827 J06.9 [id number] Rachel Armstrong MD [facility] [address] [place] [phone] 10/27/2023 14:33:08 10/27/2023 22:50:48 Upper respiratory infection 49154033 J06.9 [id number] Lance Guerrero MD [facility] [address] [place] [phone] 11/09/2023 16:12:52 11/09/2023 20:35:57 Subconjunctival hemorrhage of right eye 7819300740 33981 H11.31 [id number] Melani Cespedes MD [facility] [address] [place] [phone] 11/16/2023 18:19:32 11/16/2023 20:41:54 Cough 56443076 R05.9 Health Concerns Section Related Observation LastModified by Organization Detai ls LastModified Time None Recorded Concern Status LastModified by Organization Details LastModified Time None Recorded Payers Encounter Date Sequence Insurance Name Policy Number Policy Escamilla Covered Member ID Escamilla Member ID Guarantor Name 11/16/2023 1 [facility] - DOS ON OR AFTER 2022 - DUAL ELIGIBLE - JAIL OPTIONS AND ONE CARE (MEDICARE REPLACEMENT/ADV ANTAGE - HMO) Pal Da Silva [id number] Pal Da Silva Notes Date Note Type Note Provider Name and Address Organization Details Recorded Time 11/16/2023 text/html [facility] Nurse Triage Notes (Irene Payne): Chief Complaints: Cough PMH: CHF, COPD/Asthma, Hypertension, Severe Persistent Mental Illness (SPMI) Allergies: No Known Comments: Patient calling to request visit for cough x2 weeks. Increased cough today. Patient looses his breath with coughing episdoes. Cough is non-productive. Prescribed Breo and inhaler every 4 hours. Took Breo and rescue inhaler this morning. No fever. Speaking full sentences without difficulty .................. .................. .................. .................. .................. .................. .................. ............... Manufacturing Design Engineer Note From Thong Arshad: Dispatched to the call address for the male with a cough. Pt states he has had a cough since he was sick approx 4 weeks ago. He advises it is a dry mild cough but sometimes gets coughing fits. He denies CP or sob/difficulty breathing. He has spoken to his PCP and is taking sucralfate as he feels most of the irritation in is his esophagus. Pt also has Hx of COPD/Asthma and is taking oral steroids as well as BREO and albuterol MDI. Pt advises he has an appt with his gear shaper set up operator tomorrow. Pt was found sitting on edge of bed, CAOx4, airway open and patent, breathing non labored, able to speak in full sentences, -JVD, -HEENT, skin PWD with good turgor, abd soft non tender/distended, mucous membranes pink and moist, lung sounds CTA, +CMSx4, -edema, afebrile. [facility] consulted. Pt was advised to monitor symptoms and follow up with PCP. Red flags discussed. all times are approx. .................. .................. .................. .................. .................. .................. .................. ............... Disposition: Fulfilled Melani Cespedes MD [address] [facility],[address], [place], [address], K[employer] - [employer] 11/16/2023 19:00:53
--- OUTSIDE RECORDS SUMMARY | 2024-02-02 15:59 | XMS_ITS | Continuity of Care Document ---
Author Organization [email or web address], [place] in [facility] Address [address] [place] [phone] Care Team Providers Care Balance Wheel Screw Hole Driller Name Role Phone HIM CCA OTHER KISHORE ROBERSON Primary Care Provider Assessment No assessment recorded. Plan of Treatment Reminders Order Date Submit Date Provider Last Modified By Organization Details Last Modified Time Details Appointments None recorded. Lab None recorded. Referral None recorded. Procedures None recorded. Surgeries None recorded. Imaging None recorded. Medication Orders cyclobenzap rine 5 mg tablet 2023 024 [id number], [address] [place], [place], [id number], 4 17:57:09 Patient TargetsNo targets recorded. Patient InstructionsNo instructions recorded. Reason for Referral None Reported. Medical Equipment None Reported. Allergies Allergen ID Allergen Name Allergen Category Reaction Reaction Severity Criticality Documentation Date Start Date Code Code System Note Provider Name and Address Organization Details Recorded Time 937 dabigatra n etexilate medicatio n Not available Not available Not available 10/22/2021 02605 42 RxNorm Arti Messina MD [address] [place] [address],[address], [place], [address], [email or web address] 2 17:14:06 938 Product containin g angiotens in-conver ting enzyme inhibitor (product) medicatio n Not available Not available Not available 10/22/2021 79095 009 SNOMED Arti Messina MD [address] [place] [address],[address], [place], [address], [email or web address] 17:14:14 939 ezetimibe medicatio n Not available Not available Not available 10/22/2021 03797 8 RxNorm Not Available [facility] production 4 16:01:50 940 apixaban medicatio n Not available Not available Not available 10/22/2021 93311 30 RxNorm Not Available [facility] - production 4 16:01:50 941 Lipitor medicatio n Not available Not available Not available 10/22/2021 39888 5 RxNorm Arti Messina MD [address] [facility],[address], [place], [address], [facility] [employer] 2 17:47:42 Medications Name Sig Start Date [...] Available N ot Available Vitals Date Recorded Heart rate Body height Respiratory rate Oxygen saturation Oxygen saturation in Arterial blood by Pulse oximetry Body temperature Body weight Systolic blood pressure Diastolic blood pressure Provider Name and Address Organization Details Last Updated DateTime 4 70 /min 157.48 cm 16 /min 100 % 100 % 98.7 [degF] 78422.5 84 g 154 mm[Hg] 75 mm[Hg] Not Available 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 Functional Status None recorded. Mental Status None recorded. Family History Nothing Reported. Medical History No medical history recorded. Past Encounters Encounter ID Performer Location Encounter Start Date Encounter Closed Date Diagnosis/Indication Diagnosis SNOMED-CT Code Diagnosis ICD10 Code [id number] Uziel Crowe MD [facility] [address] [place] [phone] 01/27/2024 17:55:12 01/28/2024 08:54:57 Low back pain 278924092 M54.50 Health Concerns Section Related Observation LastModified by Organization Detai ls LastModified Time None Recorded Concern Status LastModified by Organization Details LastModified Time None Recorded Payers Encounter Date Sequence Insurance Name Policy Number Policy Escamilla Covered Member ID Escamilla Member ID Guarantor Name 01/27/2024 1 [facility] - DOS ON OR AFTER 2022 - DUAL ELIGIBLE - USP OPTIONS AND ONE CARE (MEDICARE REPLACEMENT/ADV ANTAGE - HMO) Pal Da Silva [id number] Pal Da Silva Notes Date Note Type Note Provider Name and Address Organization Details Recorded Time 01/27/2024 text/html HPI: 88 yo male with pmh of HTN, CHF, CAD, HLD, a-fib on chronic anticoagulation, 3rd degree heart block s/p ppm placement, asthma, sleep apnea, obesity, MGUS, arthritis, depression. He has had intense back pain x1 week where he went to the ER twice with no relief. Appt scheduled for this thursday w PCP, but sending insted for pain relief and assesment today ................... ................... ................... ................... ................... ................... ................... ........ [facility] Nurse Triage Notes (Irene Payne): Chief Complaints: Back pain PMH: Congestive Heart Failure, COPD/Asthma, Hypertension, Severe Persistent Mental Illness (SPMI), Arrhythmias (e.g., Atrial Fibrillation), Coronary Artery Disease, Sleep Apnea, Stroke, Osteoarthritis, Cholecystectomy, Depression Comments: HPI reviewed- NE ................... ................... ................... ................... ................... ................... ................... ........ Director [employer] Note From Mark Brock: [facility] visit for male pt. Pt presents lying supine in bed with . Pt reports 8 days of severe lumbar back pain with a couple of ED visits for same issue. Pt has been diagnosed with paraspinal muscle sprain and prescribed lidocaine patches and tylenol. Pt also given some tramadol though unspecified person from [facility] called him and told him not to take it. V/S taken as listed. Pt afebrile. Pt had severe right lumbar pain and tenderness. No external signs of injury discoloration etc. Consulted with [facility] Dr. Crowe who advised pt can take toke of tramadol, try hot compresses, and follow up with PCP. Reviewed red flags for ED. Pt education provided. ................... ................... ................... ................... ................... ................... ................... ........ [facility] Consulted: Uziel Crowe ................... ................... ................... ................... ................... ................... ................... ........ Disposition: Fulfilled Uziel Crowe MD [address] [facility],[address] [facility], [place], [address], KAREN - JILL HOLT 01/27/2024 22:26:07
--- OUTSIDE RECORDS SUMMARY | 2024-02-02 15:59 | XMS_ITS | Continuity of Care Document ---
Author Organization [employer] Address [address] [place] [address] Care Team Providers Care Act English Tutor Name Role Phone HIM CCA OTHER KISHORE ROBERSON Primary Care Provider Assessment Encounter Date Assessment Date Assessment LastModified by Organization Details LastModified Time 11/09/2023 11/09/2023 As noted, we maritza jean called to see this patient regarding concerns of low blood pressure. Evaluation in the field was performed by my combination window installer colleague, as noted above, I provided real-time direction and supervision for this visit. The evaluation revealed right subconjunctival hemorrhage. Impression: 87yo/m with multiple chronic medical conditions including HTN, CHD, CAD, afib on AC, heart block with PPM, and unknown eye condition who is evaluated by medic in home initially for call for low blood pressure but found to have new large right sided subconjunctival hemorrhage and blurry vision. Patient and family state that they have noticed patient has had increased dyspnea on exertion, including appearing fatigued and mildly short of breath when ambulating or in the shower. Patient is on lasix, unknown if any recent changes. Additionally they took home blood pressure today and noted to be low at 98/58. Patient found by medic in home, is awake, alert, chronically ill appearing but in no respiratory distress at this time. Denies any dyspnea at rest, no chest pain. No fevers/chills, nausea/vomiting, abdominal pain. For medic lungs are CTAB, no significant LE edema. Vitals are WNL at this time. However patient has a second complaint of a new diffusely red eye with blurry vision. Medic on scene able to investigate further, patient is under treatment of ophthalmology, on methylprednisolone pills and topical ketorolac to the eye. They state he is scheduled for an upcoming procedure this with ophthalmology. They however do not know his current diagnosis or what the procedure is. Today he awoke with a diffusely red eye. No trauma by history, no eye pain but endorses decreased vision in the right eye. Pictures show what appears to be a large subconjunctival hemorrhage of the right eye. Patient is on anticoagulation. Unclear to me the precipitant of the event, however given the circumstances and his vision change I believe he requires an immediate ophthalmology evaluation including eye pressures, visual acuity, and discussion with hogshead stock clerk. I advised that patient call his Ophthalmology clinic now to request in person evaluation, and if this is not possible today to present to the ED for full eye exam. Plan: as above. Primary care, consider eye followup Disposition: We discussed the situation and I recommended referral to the emergency department. This was based on need for eye exam. [email or web address] Not available 11/09/2023 16:29:55 Plan of Treatment Reminders Order Date Submit [...] am No observ ation record ed. [facility] [address] [place] [address], [place], [address], 12/11/2023 23:09:40 Result Notes None recorded. Medical Equipment None Reported. Allergies Allergen ID Allergen Name Allergen Category Reaction Reaction Severity Criticality Documentation Date Start Date Code Code System Note Provider Name and Address Organization Details Recorded Time 937 dabigatra n etexilate medicatio n Not available Not available Not available 10/22/2021 12242 42 RxNorm Arti Messina MD [address] [place] [address],[address], [place], [address], [facility] Truli 17:14:06 938 Product containin g angiotens in-conver ting enzyme inhibitor (product) medicatio n Not available Not available Not available 10/22/2021 01565 009 SNOMED Arti Messina MD [address] [facility],[address], [place], [address], [employer] 2 17:14:14 939 ezetimibe medicatio n Not available Not available Not available 10/22/2021 69226 8 RxNorm Not Available [facility] [employer] 4 16:01:50 940 apixaban medicatio n Not available Not available Not available 10/22/2021 38663 30 RxNorm Not Available [facility] - [facility] 4 16:01:50 941 Lipitor medicatio n Not available Not available Not available 10/22/2021 24055 5 RxNorm Arti Messina MD [address] [facility],[address], [place], [address], [employer] 2 17:47:42 Medications Name Sig Start Date [...] N ot Available Vitals Date Recorded Body weight Respiratory rate Body temperature Body height Oxygen saturation Oxygen saturation in Arterial blood by Pulse oximetry Heart rate Systolic blood pressure Diastolic blood pressure Provider Name and Address Organization Details Last Updated DateTime 4 37946.9 52 g 18 /min 96.9 [degF] 157.48 cm 99 % 99 % 91 /min 109 mm[Hg] 73 mm[Hg] Not Available [facility] - [facility] 4 16:13:08 Social History None recorded. Functional Status None recorded. Mental Status None recorded. Family History Nothing Reported. Medical History No medical history recorded. Past Encounters Encounter ID Performer Location Encounter Start Date Encounter Closed Date Diagnosis/Indication Diagnosis SNOMED-CT Code Diagnosis ICD10 Code [id number] Lance Guerrero MD [facility] - [facility] [address] [place] [phone] 10/21/2023 16:04:17 10/21/2023 22:32:37 Viral upper respiratory tract infection 413631801 J06.9 [id number] Rachel Armstrong MD Main - [facility] [address] [place] [phone] 10/27/2023 14:33:08 10/27/2023 22:50:48 Upper respiratory infection 76580447 J06.9 [id number] Lance Guerrero MD Main - [facility] [address] [place] [phone] 11/09/2023 16:12:52 11/09/2023 20:35:57 Subconjunctival hemorrhage of right eye [id number] 42005 H11.31 Health Concerns Section Related Observation LastModified by Organization Detai ls LastModified Time None Recorded Concern Status LastModified by Organization Details LastModified Time None Recorded Payers Encounter Date Sequence Insurance Name Policy Number Policy Escamilla Covered Member ID Escamilla Member ID Guarantor Name 11/09/2023 1 [facility] - DOS ON OR AFTER 2022 - DUAL ELIGIBLE - PRISON OPTIONS AND ONE CARE (MEDICARE REPLACEMENT/ADV ANTAGE - HMO) Pal Da Silva [id number] Pal Da Silva Notes Date Note Type Note Provider Name and Address Organization Details Recorded Time 11/09/2023 text/html CRC Nurse Triage Notes (Rocio Lutz): Reason For Request: low blood pressure Chief Complaints: Hypotension PMH: CHF, COPD/Asthma, Hypertension, Severe Persistent Mental Illness (SPMI) Allergies: Unknown Comments: Pump Servicer Helper verified the member's name//address and phone number. Member is a 87 yr old male PMH >CHF / HTN / COPD / HTN Allergies >Pt calling with BP 98/58 HR 105 , normally 140's. Pt does take HTN medication. Pt has a ARGUETA. He takes medication for inflammation that he ran out of; per member, he ran out and his eyes are bloodshot. He was unsure what the med was and why he was on it. Pt is a poor historian , he is refusing the ER, hung up on nurse when it was suggested. called back and spoke to the spouse. He denies chest pain. Pt has lower ext edema with sob. He is on a diuretic but unsure which one. He has an inhaler / Neb that he is using. No SC. He continues to refuse ER , Education provided on the response time, and the member was advised to monitor reported s/s and seek emergency treatment if needed .................... .................... .................... .................... .................... .................... .................... . Air Conditioning Unit Tester Note From Mark Brock: [facility] visit for male patient. Pt presents complaining of SOB with exertion and red right eye. SOB has been last 1-2 weeks with history of CHF, pacemaker, CVA, COPD. Grandson noticing pt has been less steady on feet in bathroom and shower. Red eye onset this morning. Family notes this issue happening in the past, with pt having been told he needs procedure or may lose vision in eye. Images taken of eye for [facility] review. Right eye alarmingly red. Pt had biopsy as well but family unsure of what. 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 Pt had been taking oral steriods with ketorolac eye drops for this issue. V/S taken as listed. Pt afebrile. Lung sounds clear. Consulted with [facility] Dr. Guerrero who advised pt see eye doctor or go to ED for eye exam to make sure he doesn't lose vision. No transportation to doctor's office so EMS was called. [place] [facility] unit arriving and receiving report and assuming care of pt. .................... .................... .................... .................... .................... .................... .................... . Disposition: Fulfilled Lance Guerrero MD [address] [facility],[address], [place], [address], [employer] 11/09/2023 18:03:03
--- OUTSIDE RECORDS SUMMARY | 2024-02-02 15:59 | XMS_ITS | Continuity of Care Document ---
Author Organization [employer] [place] [place] [facility] Address [address] [place] [phone] Care Team Providers Care Reliability Manager Name Role Phone HIM CCA OTHER KISHORE ROBERSON Primary Care Provider Assessment No assessment recorded. Plan of Treatment Reminders Order Date Submit Date Provider Last Modified By Organization Details Last Modified Time Details Appointments None recorded. Lab None recorded. Referral None recorded. Procedures None recorded. Surgeries None recorded. Imaging electrocard iogram 2023 [employer] [facility], [address] [place] [address], [phone], 23:09:43 Medication Orders cephalexin 500 mg capsule 2023 024 [facility], [address] [place], [address], 21:36:43 cephalexin 500 mg capsule 2023 024 [facility], [address] [place], [address], 22:52:32 Patient TargetsNo targets recorded. Patient InstructionsNo instructions recorded. Reason for Referral None Reported. Results Created Date Observation Date Name Description Value Unit Range Abnormal Flag Note LastModifiedBy Organization Detail LastModifiedTime 12/11/1912/11/2023 elect anuel englegr am No observ ation record ed. [employer] [address], [address], 12/11/2023 23:09:40 Result Notes None recorded. Procedures Surgical History None recorded. Imaging Results Imaging Date Name Status LastModified by Organization Details LastModified Time 12/11/2023 electrocardiogram completed [facility] Main - [address], [place], [address], 12/11/2023 23:09:40 Procedure Notes None recorded. Medical Equipment None Reported. Allergies Allergen ID Allergen Name Allergen Category Reaction Reaction Severity Criticality Documentation Date Start Date Code Code System Note Provider Name and Address Organization Details Recorded Time 937 dabigatra n etexilate medicatio n Not available Not available Not available 10/22/2021 23712 42 RxNorm Arti Messina MD [address] [place] [address],[address], [place], [address], [employer] 2 17:14:06 938 Product containin g angiotens in-conver ting enzyme inhibitor (product) medicatio n Not available Not available Not available 10/22/2021 15438 009 SNOMED Arti Messina MD [address] [place] [address],[address], [place], [address], [employer] 2 17:14:14 939 ezetimibe medicatio n Not available Not available Not available 10/22/2021 08298 8 RxNorm Not Available [facility] 4 16:01:50 940 apixaban medicatio n Not available Not available Not available 10/22/2021 33118 30 RxNorm Not Available [facility] - production 4 16:01:50 941 Lipitor medicatio n Not available Not available Not available 10/22/2021 76056 5 RxNorm Arti Messina MD [address] [place] [address],[address], [place], [address], [employer] 2 17:47:42 Medications Name Sig Start Date [...] Available N ot Available Vitals Date Recorded Oxygen saturation Oxygen saturation in Arterial blood by Pulse oximetry Body temperature Body height Heart rate Body weight Respiratory rate Systolic blood pressure Diastolic blood pressure Provider Name and Address Organization Details Last Updated DateTime 4 98 % 98 % 98.1 [degF] 157.48 cm 75 /min 85590.4 g 19 /min 85 mm[Hg] 52 mm[Hg] Not Available [employer] [employer] 4 21:22:40 Social History None recorded. Functional Status None recorded. Mental Status None recorded. Family History Nothing Reported. Medical History No medical history recorded. Past Encounters Encounter ID Performer Location Encounter Start Date Encounter Closed Date Diagnosis/Indication Diagnosis SNOMED-CT Code Diagnosis ICD10 Code [id number] Melani Cespedes MD Main - [facility] [address] [place] [phone] 11/16/2023 18:19:32 11/16/2023 20:41:54 Cough [id number] R05.9 [id number] EHSAN RODRIGUEZ MD Main - [address] [phone] 12/11/2023 21:22:23 12/12/2023 15:24:29 Cellulitis of toe of right foot [id number] L03.031 Health Concerns Section Related Observation LastModified by Organization Detai ls LastModified Time None Recorded Concern Status LastModified by Organization Details LastModified Time None Recorded Payers Encounter Date Sequence Insurance Name Policy Number Policy Escamilla Covered Member ID Escamilla Member ID Guarantor Name 12/11/2023 1 [facility] - DOS ON OR AFTER 2022 - DUAL ELIGIBLE - RESIDENTIAL OPTIONS AND ONE CARE (MEDICARE REPLACEMENT/ADV ANTAGE - HMO) Pal Da Silva [id number] Pal Da Silva Notes Date Note Type Note Provider Name and Address Organization Details Recorded Time 12/11/2023 text/html HPI: Patient with HTN, CHF, CAD, HLD, a-fib on chronic anticoagulation, 3rd degree heart block s/p ppm placement, asthma, sleep apnea, obesity, MGUS, arthritis, depression, and complicated cholecystectomy. On oral steroids for giant cell arteritis. Patient reporting 3 days of right great toe having cut with progressively worsening swelling, pain and now appears black . Patient has sensation and reports pain at the site. Denies bleeding, or drainage. Denies injury. Denies other areas like this. Denies fever. Patient Declines to present to ED at this time. .................... .................... .................... .................... .................... .................... .................... . CRC Nurse Triage Notes (Suzie Escoto): Chief Complaints: Wound Care, Pain, Cellulitis PMH: CHF, COPD/Asthma, Hypertension, Severe Persistent Mental Illness (SPMI) Other Allergies: ROSSANA inhibitors, ezetimibe, dabigatran Comments: CRC RN did not require any additional information to process this visit. C Application Developer Organization Information for Jonathan Espinoza [employer] Legal Name: [facility] Address: [address] [place] [address], [place] [address], Display And Banner Designer: Billy Manzo MD SUKHDEV No.: [id number] C Application Developer POC Test Results from Jonathan Espinoza EKG (21:20:36) EKG test performed. Attachments uploaded as part of this test result can be found under Documents section. .................... .................... .................... .................... .................... .................... .................... . C Application Developer Note From Jonathan Espinoza: Pt chief complaint of a wound he acquired on his right big toe. Pt also notes that he has some discoloration of the toe. Pt states that he noticed the discoloration and laceration approx 1 week prior to his visit today. Pt states he has already had blood work drawn and has not been called yet back by his physician for results. Pt also states that he has been having an extreme amount of pain in the toe to where it has now affected his ability to ambulate normally. The pt today is seeking assistance with pain management as well as possible diagnosis of an infection in the area. Pt states that he is not experiencing a fever, chills and or CP, SOB or NVDNon neural focal exam. Pt is noted to be afebrile and extremely hypotension. pt and family state that this is not fully outside of normal range for the pt. Lungs sounds are clear bilaterally. Pt abdominal area is benign on examination however it is noted to be distended at baseline. Pt feels no tenderness or pain upon palpation. Lower extremities are noted to be normal per the pt however upon examination of the chief problem area, there is a noted laceration next to his nail bed and some discoloration that appears to be from a previous cellulitis. Pt states pain on movement and palpation is 10/10 no drainage noted. Pt notes NKDA12 lead ECG performed and shows the pt to be in a ventricularly paced rhythm.[facility] unable to acquire a IV access for Blood work.Ehsan Rodriguez contacted as VMCPt formed t hold his prescription carvedilol as well as furosemide for 48 and to monitor his BP closely. Pt informed that is he notices this extreme level of hypotension continue to persist than he needs to contact emergency services. Pt is also informed of red flag S&S as well. Pt given 5000 mg of oral keflex .................... .................... .................... .................... .................... .................... .................... . Disposition: Fulfilled EHSAN RODRIGUEZ MD [address] [facility],[address], [place], [address], [employer] 12/11/2023 23:11:06
--- OUTSIDE RECORDS SUMMARY | 2024-02-02 15:59 | XMS_ITS | Data Portability ---
Author Organization [facility] In in - [facility] [place] Address [address] [place] [phone] Care Team Providers Care Box Toe Stitcher Name Role Phone HIM CCA OTHER KISHORE ROBERSON Primary Care Provider Assessment Encounter Date Assessment Date Assessment LastModified by Organization Details LastModified Time 10/27/2023 10/27/2023 I provided real -time medical direction via phone for this encounter and was available for additional phone-based assistance as needed. I have reviewed and agree with the Assessment and Plan as documented by the Crop Setting Out Machine Operator. Patient given the opportunity to ask questions. Our service contacted for an assessment of: URI symptoms As per above, patient calls as he was started on abx on 10/20 for presumed PNA. COVID negative then. Slow, gradual improvement in symptoms. Wanted to be rechecked. Per dough catcher on the scene, VSS, AF. COVID and Flu are both negative Impression: Continued symptoms of upper respiratory tract infection - improving Plan: Complete abx. Continue symptom management. Allergies: Reviewed PCP f/u: We discussed the diagnostic uncertainty of home visits and the risk associated with this. In this case, the patient and I felt this to be an acceptable and reasonable amount of risk given the benefit of avoiding an ED visit. We discussed the need to seek care urgently/emergently in the setting of any new or worsening serious symptoms, particularly fever chills lightheadedness altered mental status [email or web address] Not available 10/27/2023 14:37:56 11/09/2023 11/09/2023 As noted, we wer e called to see this patient regarding concerns of low blood pressure. Evaluation in the field was performed by my dough catcher colleague, as noted above, I provided real-time [...] eye pressures, visual acuity, and discussion with instrumentation engineering technician. I advised that patient call his Ophthalmology clinic now to request in person evaluation, and if this is not possible today to present to the ED for full eye exam. Plan: as above. Primary care, consider eye followup Disposition: We discussed the situation and I recommended referral to the emergency department. This was based on need for eye exam. [email or web address] Not available 11/09/2023 16:29:55 Plan of Treatment Reminders Order Date Submit Date Provider Last Modified By Organization Details Last Modified Time Details Appointments None recorded. Lab rapid SARS CoV 2 Ag, QL IA, respiratory specimen [address], [address] [place] [address], [phone], 14:35:01 rapid flu (A+B) 2023 024 [email or web address] [facility], [address] [place] [address], [phone], 14:34:59 Referral None recorded. Procedures None recorded. Surgeries None recorded. Imaging electrocard iogram 2023 024 [facility], [address] [place] [address], [phone], 4 23:09:43 Medication Orders cephalexin 500 mg capsule 2023 [facility], [address] [place], [address], 21:36:43 cephalexin 500 mg capsule 2023 024 [facility], [address] [place], [address], 4 22:52:32 cyclobenzap rine 5 mg tablet 2023 [id number], [address], [place], [phone], 17:57:09 Patient TargetsNo targets recorded. Patient InstructionsNo instructions recorded. Reason for Referral None Reported. Results Created Date Observation Date Name Description Value Unit Range Abnormal Flag Note LastModifiedBy Organization Detail LastModifiedTime 10/21/19 24 10/21/2023 rapid flu (A+B) Flu negati ve Not Available [facility] ed [address] [place] [address], [phone], 10/21/2023 16:11:34 10/21/19 24 10/21/2023 rapid SARS CoV 2 Ag, QL IA, respi rator y speci men rapid SARS CoV 2 Ag, QL IA, respiratory specimen negati ve Not Available [facility] ed [address] [place] [address], [phone], 10/21/2023 16:05:52 10/27/19 24 10/27/2023 rapid flu (A+B) Flu negati ve Not Available [facility] ed [address] [place] [address], [phone], 10/27/2023 14:34:47 10/27/19 24 10/27/2023 rapid SARS CoV 2 Ag, QL IA, respi rator y speci men rapid SARS CoV 2 Ag, QL IA, respiratory specimen negati ve Not Available [facility] ed [address] [place] [address], [phone], 10/27/2023 14:34:45 12/11/19 24 12/11/2023 elect anuel bucio am No observ ation record ed. [address], [phone], 12/11/2023 23:09:40 Result Notes None recorded. Procedures Surgical History None recorded. Imaging Results Imaging Date Name Status LastModified by Organization Details LastModified Time 12/11/2023 electrocardiogram completed [address], [phone], 12/11/2023 23:09:40 Procedure Notes None recorded. Medical Equipment None Reported. Allergies Allergen ID Allergen Name Allergen Category Reaction Reaction Severity Criticality Documentation Date Start Date Code Code System Note Provider Name and Address Organization Details Recorded Time 937 dabigatra n etexilate medicatio n Not available Not available Not available 10/22/2021 41232 42 RxNorm Arti Messina MD [address] [place] [address],[address], [place], [address], [facility] - [employer] [facility] 17:14:06 938 Product containin g angiotens in-conver ting enzyme inhibitor (product) medicatio n Not available Not available Not available 10/22/2021 99209 009 SNOMED Arti Messina MD [address] [place] [address],[address], [place], [address], [facility] 2 17:14:14 939 ezetimibe medicatio n Not available Not available Not available 10/22/2021 00863 8 RxNorm Not Available [employer] - [employer] 4 16:01:50 940 apixaban medicatio n Not available Not available Not available 10/22/2021 22905 30 RxNorm Not Available [employer] - [employer] 4 16:01:50 941 Lipitor medicatio n Not available Not available Not available 10/22/2021 89474 5 RxNorm Arti Messina MD [address] [facility],[address], [place], [address], [facility] 2 17:47:42 Medications Name Sig Start Date [...] ot Available Vitals Date Recorded Body temperature Oxygen saturation Oxygen saturation in Arterial blood by Pulse oximetry Respiratory rate Heart rate Systolic blood pressure Diastolic blood pressure Provider Name and Address Organization Details Last Updated DateTime 4 97.1 [degF] 98 % 98 % 16 /min 89 /min 133 mm[Hg] 78 mm[Hg] Not Available [employer] 4 14:33:14 Date Recorded Body weight Respiratory rate Body temperature Body height Oxygen saturation Oxygen saturation in Arterial blood by Pulse oximetry Heart rate Systolic blood pressure Diastolic blood pressure Provider Name and Address Organization Details Last Updated DateTime 4 88494.9 52 g 18 /min 96.9 [degF] 157.48 cm 99 % 99 % 91 /min 109 mm[Hg] 73 mm[Hg] Not Available [employer] 4 16:13:08 Date Recorded Body temperature Body weight Respiratory rate Heart rate Oxygen saturation Oxygen saturation in Arterial blood by Pulse oximetry Body height Systolic blood pressure Diastolic blood pressure Provider Name and Address Organization Details Last Updated DateTime 4 98.4 [degF] 61586.3 6 g 18 /min 78 /min 99 % 99 % 157.48 cm 132 mm[Hg] 74 mm[Hg] Not Available [employer] 4 18:19:34 Date Recorded Oxygen saturation Oxygen saturation in Arterial blood by Pulse oximetry Body temperature Body height Heart rate Body weight Respiratory rate Systolic blood pressure Diastolic blood pressure Provider Name and Address Organization Details Last Updated DateTime 4 98 % 98 % 98.1 [degF] 157.48 cm 75 /min 71269.4 g 19 /min 85 mm[Hg] 52 mm[Hg] Not Available [employer] 4 21:22:40 Date Recorded Heart rate Body height Respiratory rate Oxygen saturation Oxygen saturation in Arterial blood by Pulse oximetry Body temperature Body weight Systolic blood pressure Diastolic blood pressure Provider Name and Address Organization Details Last Updated DateTime 4 70 /min 157.48 cm 16 /min 100 % 100 % 98.7 [degF] 13011.5 84 g 154 mm[Hg] 75 mm[Hg] Not Available [employer]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 Functional Status None recorded. Mental Status None recorded. Family History Nothing Reported. Medical History No medical history recorded. Past Encounters Encounter ID Performer Location Encounter Start Date Encounter Closed Date Diagnosis/Indication Diagnosis SNOMED-CT Code Diagnosis ICD10 Code [id number] Emelina Hope MD [facility] [address] [place] [id number] 09/03/2021 13:58:40 10/29/2021 16:07:36 Dizziness 162301454 R42 Acute on c hronic diastolic heart failure 486846091 I50.33 [id number] Arti Messina MD [facility] - [facility] [address] [place] [phone] 10/22/2021 16:32:35 11/06/2021 11:46:10 Right upper quadrant pain 573695614 R10.11 [id number] Emelina Hope MD [facility] - [facility] [address] [place] [phone] 12/14/2021 11:53:55 12/16/2021 14:22:24 Left lower quadrant pain 826588418 R10.32 [id number] Valentina Chavarria MD Main - [facility] [address] [place] [id number] 12/18/2021 18:55:27 12/24/2021 15:13:27 Dyspnea 470364486 R06.00 [id number] Laxmi Gomez MD Main - [facility] [address] [place] [phone] 02/19/2022 11:51:07 02/21/2022 13:24:44 Abdominal pain 08071854 R10.9 [id number] Kurt Pineda MD Main - [facility] [address] [place] [id number] 06/09/2022 11:05:58 06/10/2022 11:39:18 Left lower quadrant pain 358737190 R10.32 [id number] Marcelina Ruiz MD Main - [facility] [address] [place] [phone] 06/12/2022 11:29:39 06/13/2022 09:48:14 Acute on chronic diastolic heart failure 364359088 I50.33 [id number] Kurt Pineda MD Main - [facility] [address] [place] [phone] 06/24/2022 10:31:23 06/26/2022 09:21:01 Left lower quadrant pain 529445185 R10.32 [id number] ROSALINDA JUNIOR MD [facility] [address] [place] [phone] 08/09/2022 14:57:47 08/09/2022 23:14:31 Left upper quadrant pain 351061730 R10.12 [id number] Melani Cespedes MD Main - [facility] [address] [place] [phone] 08/11/2022 11:13:36 08/14/2022 15:12:40 Abdominal pain 19060951 R10.9 [id number] Arti Messina MD Main - [facility] [address] [place] [id number] 09/05/2022 11:41:29 09/07/2022 21:23:47 Essential hypertension 73176612 I10 [id number] Sarita Guzman MD Main - [facility] [address] [place] [phone] 11/26/2022 13:49:56 11/27/2022 00:29:17 Low blood pressure 25664283 I95.9 [id number] Karishma Sofia MD Main - [facility] [address] [place] [id number] 01/19/2023 20:46:48 01/19/2023 22:55:13 Diverticulitis 197904853 K57.92 [id number] Arti Messina MD Main - [facility] [address] [place] [phone] 01/26/2023 12:04:24 01/27/2023 09:25:45 Palpitations 68527499 R00.2 [id number] Salo Arriaza MD [facility] - [facility] [address] [place] [id number] 02/20/2023 10:51:29 02/25/2023 14:22:46 Headache 34957683 R51.9 [id number] ROSALINDA JUNIOR MD [facility] [address] [place] [phone] 03/05/2023 16:47:27 03/05/2023 22:42:57 Pain in left lower limb 029759014 M79.605 [id number] Skyler Fajardo MD [facility] [address] [place] [phone] 03/27/2023 20:07:39 03/29/2023 13:03:35 Localized swelling of left lower leg 8666908095 8728858 R22.42 [id number] Skyler Fajardo MD [facility] [address] [place] [address] 0 05/19/2023 17:26:54 05/19/2023 19:18:07 Congestive heart failure 90261405 I50.9 [id number] Skyler Fajardo MD [facility] [address] [place] [address] 0 06/20/2023 17:24:02 06/21/2023 17:15:04 Generalized headache 417687007 R51.9 [id number] Melani Cespedes MD Main - [facility] [address] [place] [phone] 07/13/2023 16:19:49 07/14/2023 17:29:31 Left lower quadrant pain 726523470 R10.32 [id number] Lance Guerrero MD Main - [facility] [address] [place], [place] [phone] 10/21/2023 16:04:17 10/21/2023 22:32:37 Viral upper respiratory tract infection 338264025 J06.9 [id number] Rachel Armstrong MD [facility] [address] [place] [phone] 10/27/2023 14:33:08 10/27/2023 22:50:48 Upper respiratory infection 72855342 J06.9 [id number] Lance Guerrero MD Main - [facility] [address] [place] [phone] 11/09/2023 16:12:52 11/09/2023 20:35:57 Subconjunctival hemorrhage of right eye 8395651348 03507 H11.31 [id number] Melani Cespedes MD [facility] [address] [place] [phone] 11/16/2023 18:19:32 11/16/2023 20:41:54 Cough 48048196 R05.9 [id number] EHSAN RODRIGUEZ MD [facility] [address] [place] [id number] 12/11/2023 21:22:23 12/12/2023 15:24:29 Cellulitis of toe of right foot 5549967562 L03.031 [id number] Uziel Crowe MD [facility] [address] [place] [phone] 01/27/2024 17:55:12 01/28/2024 08:54:57 Low back pain 780188633 M54.50 Health Concerns Section Related Observation LastModified by Organization Detai ls LastModified Time None Recorded Concern Status LastModified by Organization Details LastModified Time None Recorded Advance Directives Directive None Recorded Payers Encounter Date Sequence Insurance Name Policy Number Policy Escamilla Covered Member ID Escamilla Member ID Guarantor Name 10/27/2023 1 [facility] - DOS ON OR AFTER 2022 - DUAL ELIGIBLE - NURSING HOME OPTIONS AND ONE CARE (MEDICARE REPLACEMENT/ADV ANTAGE - HMO) Pal Da Silva [id number] Pal Da Silva 11/09/2023 1 [employer] - DOS ON OR AFTER 2022 - DUAL ELIGIBLE - NURSING HOME OPTIONS AND ONE CARE (MEDICARE REPLACEMENT/ADV ANTAGE - HMO) Pal Da Silav [id number] Pal Da Silva 11/16/2023 1 [employer] - DOS ON OR AFTER 2022 - DUAL ELIGIBLE - NURSING HOME OPTIONS AND ONE CARE (MEDICARE REPLACEMENT/ADV ANTAGE - HMO) Pal Da Silva [id number] Pal Da Silva 12/11/2023 1 [employer] - DOS ON OR AFTER 2022 - DUAL ELIGIBLE - NURSING HOME OPTIONS AND ONE CARE (MEDICARE REPLACEMENT/ADV ANTAGE - HMO) Pal Da Silva [id number] Pal Da Silva 01/27/2024 1 [employer] C[employer] - DOS ON OR AFTER 2022 - DUAL ELIGIBLE - NURSING HOME OPTIONS AND ONE CARE (MEDICARE REPLACEMENT/ADV ANTAGE - HMO) Pal Da Silva [id number] Pal Da Silva Notes Date Note Type Note Provider Name and Address Organization Details Recorded Time 10/27/2023 text/html HPI: Patient had INSTED visit last week then f/u visit with MD on 10/21, where he was prescribed cefpodoxime. His Covid was neg at the time. Patient is still not feeling well, no recheck on covid. Request INSTED visit this afternoon for f/u. Patient requesting afternoon because he is trying to rest this morning. ....................... ....................... ....................... ....................... ....................... ....................... ... CRC Nurse Triage Notes (Suzie Escoto): Chief Complaints: Cough, Weakness/Lethargy PMH: CHF, COPD/Asthma, Hypertension, Severe Persistent Mental Illness (SPMI) Other Allergies: apixaban, Ezetimbibe, rossana inhibitors, Dabigatran Comments: CRC RN did not require any additional information to process this visit. Crop Setting Out Machine Operator Organization Information for Lalit Lubin Business Legal Name: [facility] Address: [address] [place] [address], [employer]: Billy Manzo MD CLIA No.: [id number] Crop Setting Out Machine Operator POC Test Results from Lalit Lubin Rapid COVID antigen (12:48:59) COVID: - Rapid influenza antigen (12:49:00) Flu: - ....................... ....................... ....................... ....................... ....................... ....................... ... Crop Setting Out Machine Operator Note From Lalit Lubin: F/u request from [facility] primary. Pt seen last week for productive cough, presumably PNA, rx cefpodoxime and methylprednisolone which pt is taking as prescribed. Today pt reports feeling slightly better, feeling fatigued and having dry cough at night. Pt denies CP, SOB, DELGADO, f/n/v/d. Pt is alert, NAD. VSS. SpO2 98% ra. Afebrile. Non focal neuro exam. Normal gait, with walker at baseline. Lungs CTA. Benign ABD exam. Trace LE edema. POC covid and flu negative. Pt instructed to stay well hydrated, continue to rest, continue to take meds as prescribed and begin taking Mucinex DM bid. Red flags reviewed. ....................... ....................... ....................... ....................... ....................... ....................... ... Disposition: Fulfilled Rachel Armstrong MD [address] [facility],[address], [place], [address], [employer] 10/27/2023 14:38:56 11/09/2023 text/html CRC Nurse Triage Notes (Rocio Lutz): Reason For Request: low blood pressure Chief Complaints: Hypotension PMH: CHF, COPD/Asthma, Hypertension, Severe Persistent Mental Illness (SPMI) Allergies: Unknown Comments: Sausage Cooker verified the member's name//address and phone number. [...] / Neb that he is using. No AL. He continues to refuse ER , Education provided on the response time, and the member was advised to monitor reported s/s and seek emergency treatment if needed ....................... ....................... ....................... ....................... ....................... ....................... ... Crop Setting Out Machine Operator Note From Mark Brock: [facility] visit for male patient. Pt presents complaining [...] in eye. Images taken of eye for [facility] review. Right eye alarmingly red. Pt had biopsy as well but family unsure of what. 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 Pt had been taking oral steriods with ketorolac eye drops for this issue. V/S taken as listed. Pt afebrile. Lung sounds clear. Consulted with [facility] Dr. Guerrero who advised pt see eye doctor or go to ED for eye exam to make sure he doesn't lose vision. No transportation to doctor's office so EMS was called. [facility] arriving and receiving report and assuming care of pt. ....................... ....................... ....................... ....................... ....................... ....................... ... Disposition: Fulfilled Lance Guerrero MD [address] [place] [address],[address], [place], [address], [facility] 11/09/2023 18:03:03 11/16/2023 text/html CRC Nurse Triage Notes (Irene [...] No fever. Speaking full sentences without difficulty ....................... ....................... ....................... ....................... ....................... ....................... ... Crop Setting Out Machine Operator Note From Thong Arshad: Dispatched to the [...] advises he has an appt with his supervisor prep tomorrow. Pt was found sitting on edge [...] Red flags discussed. all times are approx. ....................... ....................... ....................... ....................... ....................... ....................... ... Disposition: Fulfilled Melani Cespedes MD [address] [facility],[address], [place], [phone], [facility] 11/16/2023 19:00:53 12/11/2023 text/html HPI: Patient with HTN, CHF, [...] to present to ED at this time. ....................... ....................... ....................... ....................... ....................... ....................... ... CRC Nurse Triage Notes (Suzie Escoto): Chief Complaints: Wound Care, Pain, Cellulitis PMH: CHF, COPD/Asthma, Hypertension, Severe Persistent Mental Illness (SPMI) Other Allergies: ROSSANA inhibitors, ezetimibe, dabigatran Comments: CRC RN did not require any additional information to process this visit. Crop Setting Out Machine Operator Organization Information for Esp[employer] Business Legal Name: [facility] Address: [address] [place] [address], [place] [address], [employer]: Billy Manzo MD SUKHDEV No.: [id number] Crop Setting Out Machine Operator POC Test Results from [employer] EKG (21:20:36) EKG test performed. Attachments uploaded as part of this test result can be found under Documents section. ....................... ....................... ....................... ....................... ....................... ....................... ... Crop Setting Out Machine Operator Note From Jonathan Espinoza: Pt chief complaint [...] pt to be in a ventricularly paced rhythm.[facility] unable to acquire a IV access [...] Pt given 5000 mg of oral keflex ....................... ....................... ....................... ....................... ....................... ....................... ... Disposition: Ruthann EHSAN RODRIGUEZ MD [address] [facility],[address], [place], [address], [employer] 12/11/2023 23:11:06 01/27/2024 text/html HPI: 88 yo male with [...] insted for pain relief and assesment today ....................... ....................... ....................... ....................... ....................... ....................... ... CRC Nurse Triage Notes (Irene Payne): Chief Complaints: Back pain PMH: Congestive Heart Failure, COPD/Asthma, Hypertension, Severe Persistent Mental Illness (SPMI), Arrhythmias (e.g., Atrial Fibrillation), Coronary Artery Disease, Sleep Apnea, Stroke, Osteoarthritis, Cholecystectomy, Depression Comments: HPI reviewed- NE ....................... ....................... ....................... ....................... ....................... ....................... ... Crop Setting Out Machine Operator Note From Mark Brock: [facility] visit for male pt. Pt presents lying supine in bed with . Pt reports 8 days of severe lumbar back pain with a couple of ED visits for same issue. Pt has been diagnosed with paraspinal muscle sprain and prescribed lidocaine patches and tylenol. Pt also given some tramadol though unspecified person from [facility] called him and told him not to take it. V/S taken as listed. Pt afebrile. Pt had severe right lumbar pain and tenderness. No external signs of injury discoloration etc. Consulted with [facility] Dr. Crowe who advised pt can take toke of tramadol, try hot compresses, and follow up with PCP. Reviewed red flags for ED. Pt education provided. ....................... ....................... ....................... ....................... ....................... ....................... ... [facility] Consulted: Uziel Crowe ....................... ....................... ....................... ....................... ....................... ....................... ... Disposition: Fulfilled Uziel Crowe MD [address] [facility],[address], [place], [address], JILL FAR[employer] 01/27/2024 22:26:07
== END 2024-01-26 21:00 | disposition home or self-care (01) ==
PROVIDERS: Emergency Provider Emergency Medicine Emergency Medical Services
DX: S39.012A Strain of muscle, fascia and tendon of lower back, initial encounter (principal); J44.9 Chronic obstructive pulmonary disease, unspecified; I25.10 Atherosclerotic heart disease of native coronary artery without angina pectoris; I10 Essential (primary) hypertension; X58.XXXA Exposure to other specified factors, initial encounter; Y93.89 Activity, other specified; Y92.89 Other specified places as the place of occurrence of the external cause; Y99.8 Other external cause status; Z79.899 Other long term (current) drug therapy; Z86.73 Personal history of transient ischemic attack (TIA), and cerebral infarction without residual deficits; Z95.0 Presence of cardiac pacemaker
CPT/HCPCS: 99283; 99284

== ENCOUNTER 2024-02-01 11:23 | Inpatient (IN) | payer OTHER, SELFPAY ==
[2024-02-01] VITALS (7 sets, daily range): BP systolic 118–150; BP diastolic 57–79; PULSE 79–160; RESP 16–23; TEMP 36.8–36.9; O2SAT 93–97; BMI 30.9
--- NOTE | ~2024-02-01 | XR_ITS ---
EXAMINATION: XR LUMBOSACRAL SPINE CLINICAL INFORMATION: back pain COMPARISON: Lumbar spine radiograph January 22, 2024 TECHNIQUE: Three views of the lumbosacral spine. FINDINGS: Possible new compression fracture centrally at L1. Severe multilevel degenerative changes of the lumbar spine with facet arthropathy most pronounced lower lumbar spine. Diffuse osteopenia. XR/XR lumbar spine 2-3V IMPRESSION: Possible new compression fracture centrally at L1, not well profiled on the crosstable lateral views. Recommend correlation for point tenderness, and consider repeat imaging for cross sectional imaging for further evaluation. Electronically signed by: Laurent Astorga MD 02/01/2024 08:00 PM KEYSHA
--- NOTE | ~2024-02-01 | CT_ITS ---
EXAMINATION: CT HEAD WITHOUT CONTRAST CT CERVICAL SPINE WITHOUT CONTRAST CLINICAL INFORMATION: Trauma. COMPARISON: CT head and cervical spine dated 03/25/2022. CT head dated 12/06/2022. TECHNIQUE: Contiguous axial imaging was performed from the skull base to vertex without intravenous administration of contrast. Contiguous axial CT images of the cervical spine were obtained without contrast. Sagittal and coronal reformats were provided and reviewed. This CT examination was performed using dose optimization techniques as appropriate, variously including the following: *Automated exposure control *Adjustment of mA and/or kV according to patient size (this includes techniques or standardized protocols for targeted exams where dose is matched to indication/reason for exam; i.e. extremities or head) *Use of iterative reconstruction technique DLP: 1378 mGy-cm FINDINGS: HEAD: There is no evidence of acute intracranial hemorrhage or territorial infarction. No abnormal mass effect or midline shift is seen. Nunez to white matter differentiation is well preserved. No extra-axial fluid collections are identified. The ventricles are normal in size. There is no abnormal attenuation within the brain parenchyma. The osseous structures and soft tissues are normal. The mastoid air cells and visualized portions of the paranasal sinuses are well aerated. CERVICAL SPINE: Straightening of the normal cervical lordosis which may be positional or related to muscular spasm. No acute fracture or subluxation. No loss of vertebral body or intervertebral disc height. Degenerative endplate changes are redemonstrated, most prominent at C3-C4 and similar when compared to the prior examination. Multilevel bilateral facet arthropathy is redemonstrated. No lytic or blastic osseous lesion. Unremarkable prevertebral soft tissues. No abnormal soft tissue mass or fluid collection. Atrophic thyroid. Visualized lung apices are clear. [id number] multilevel bilateral neural foraminal stenosis, not significantly changed. CT/CT cervical spine wo IV con IMPRESSION: HEAD: No acute intracranial hemorrhage or mass effect. CERVICAL SPINE: No acute fracture or subluxation. Straightening of the normal cervical lordosis which may be positional or related to muscular spasm. 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 Electronically signed by: Zackery Regalado MD 02/01/2024 03:37 PM [facility] [place]
--- NOTE | ~2024-02-01 | CT_ITS ---
EXAMINATION: CT HEAD WITHOUT CONTRAST CT CERVICAL SPINE WITHOUT CONTRAST CLINICAL INFORMATION: Trauma. COMPARISON: CT head and cervical spine dated 03/25/2022. CT head dated 12/06/2022. TECHNIQUE: Contiguous axial imaging was performed from the skull base to vertex without intravenous administration of contrast. Contiguous axial CT images of the cervical spine were obtained without contrast. Sagittal and coronal reformats were provided and reviewed. This CT examination was performed using dose optimization techniques as appropriate, variously including the following: *Automated exposure control *Adjustment of mA and/or kV according to patient size (this includes techniques or standardized protocols for targeted exams where dose is matched to indication/reason for exam; i.e. extremities or head) *Use of iterative reconstruction technique DLP: 1378 mGy-cm FINDINGS: HEAD: There is no evidence of acute intracranial hemorrhage or territorial infarction. No abnormal mass effect or midline shift is seen. Nunez to white matter differentiation is well preserved. No extra-axial fluid collections are identified. The ventricles are normal in size. There is no abnormal attenuation within the brain parenchyma. The osseous structures and soft tissues are normal. The mastoid air cells and visualized portions of the paranasal sinuses are well aerated. CERVICAL SPINE: Straightening of the normal cervical lordosis which may be positional or related to muscular spasm. No acute fracture or subluxation. No loss of vertebral body or intervertebral disc height. Degenerative endplate changes are redemonstrated, most prominent at C3-C4 and similar when compared to the prior examination. Multilevel bilateral facet arthropathy is redemonstrated. No lytic or blastic osseous lesion. Unremarkable prevertebral soft tissues. No abnormal soft tissue mass or fluid collection. Atrophic thyroid. Visualized lung apices are clear. [id number] multilevel bilateral neural foraminal stenosis, not significantly changed. CT/CT head/brain wo IV con IMPRESSION: HEAD: No acute intracranial hemorrhage or mass effect. CERVICAL SPINE: No acute fracture or subluxation. Straightening of the normal cervical lordosis which may be positional or related to muscular spasm. 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 Electronically signed by: Zackery Regalado MD 02/01/2024 03:37 PM [facility] [place]
--- NOTE | 2024-02-01 12:11 | ECG_ITS ---
Test Reason : cp Blood Pressure : / mmHG Vent. Rate : 098 BPM Atrial Rate : 098 BPM P-R Int : 000 ms QRS Dur : 094 ms QT Int : 372 ms P-R-T Axes : 047 -20 119 degrees QTc Int : 474 ms Atrial-sensed ventricular-paced rhythm with occasional Premature ventricular complexes Abnormal ECG When compared with ECG of 30-AUG-2023 01:06, Premature ventricular complexes are now Present Vent. rate has increased BY 34 BPM Referred By: Gonsalo Keen Electronically Signed By:DEON DALAL MD
--- NOTE | 2024-02-01 12:25 | ED_ITS ---
HPI - Fall General Chief Complaint: Fall Stated Complaint: Fall Time Seen by Provider: 02/01/24 12:10 Source: EMS Mode of arrival: EMS History of Present Illness HPI Narrative: this is 88 years old male presented to the emergency department after a fall. He is coming from home the fall was not witnessed. Denies any chest pain or shortness of breath, he has history of CAD, TIA, heart failure, COPD, obesity he has a pacemaker in the past he also has chronic lower back pain MD complaint: fall Onset (ago): hour(s) (2) Fall from: standing Fall witnessed: no Place fall occurred: home Loss of consciousness: none Related Data Home Medications ?Medication ?Instructions ?Recorded ?Confirmed atorvastatin 80 mg tablet 80 mg PO BEDTIME 06/03/20 12/06/22 carvedilol 25 mg tablet 25 mg PO BID 12/04/20 12/06/22 potassium chloride 10 mEq 1 tab PO BID 11/14/21 12/06/22 tablet,extended release fluticasone furoate 200 1 inh inhalation DAILY 12/06/22 12/06/22 mcg-vilanterol 25 mcg/dose inhalation powder (Breo Ellipta) ferrous sulfate 325 mg (65 mg 325 mg PO DAILY 12/07/22 12/07/22 iron) tablet (FeroSul) fluticasone propionate 50 1 spray intranasal DAILY PRN 12/07/22 12/07/22 mcg/actuation nasal Allergy Symptoms spray,suspension losartan 50 mg tablet 50 mg PO DAILY 12/07/22 12/07/22 multivitamin 1 tab PO DAILY 12/07/22 12/07/22 [id number] acid 0.4 tab PO 01/14/23 mg-lycopene 300 mcg-lutein 250 mcg tablet (CertaVite Senior) aspirin 81 mg tablet,delayed 81 mg PO DAILY 08/17/23 release ketorolac 0.5 % eye drops drp ophthalmic (eye) 08/17/23 levocetirizine 5 mg tablet 5 mg PO DAILY 08/17/23 losartan 25 mg tablet 25 mg PO DAILY 08/17/23 methylprednisolone 8 mg tablet mg PO 08/17/23 verapamil 120 mg tablet,extended 120 mg PO DAILY 08/17/23 release albuterol sulfate 90 mcg/actuation inhalation 11/18/23 aerosol inhaler methylprednisolone 4 mg tablet mg PO 09/25/24 Previous Rx's ?Medication ?Instructions ?Recorded tamsulosin 0.4 mg capsule 0.4 mg PO DAILY 90 days #90 caps 03/29/21 furosemide 40 mg tablet 40 mg PO DAILY #30 tabs 12/05/22 molnupiravir 200 mg capsule (EUA) 800 mg (4 x 200 mg) PO Q12H 5 days 04/10/23 #40 caps docusate sodium 100 mg capsule 100 mg PO BID #60 caps 05/20/23 sucralfate 100 mg/mL oral 10 ml PO BEDTIME #400 mL 11/16/23 suspension sennosides 8.6 mg tablet (senna) 8.6 mg PO BEDTIME #90 tabs 11/18/23 rivaroxaban 20 mg tablet (Xarelto) 20 mg PO QPM #90 tabs 12/04/23 dexamethasone 4 mg tablet 4 mg PO BID #6 tabs 01/22/24 tramadol 50 mg tablet 50 mg PO Q8H PRN severe pain 01/22/24 (scale score 7-10) #12 tabs lidocaine 4 % topical patch 1 patch topical DAILY PRN Lower 01/26/24 (Aspercreme (lidocaine)) back pain #5 ea pantoprazole 40 mg tablet,delayed 40 mg PO DAILY@0630 #90 tabs 01/29/24 release Allergies Allergy/AdvReac Type Severity Reaction Status Date / Time ezetimibe [From Zetia] Allergy Severe Anaphylaxis Verified 02/01/24 11:36 dabigatran etexilate Allergy Intermediate ITCHING Verified 02/01/24 11:36 [From PRADAXA] JORGE L Inhibitors Allergy Mild UNKNOWN, Verified 02/01/24 11:36 [Jorge L Inhibitors] FOUND IN MEDICAL RECORD 04/[address] GIPSON apixaban [From ELIQUIS] Allergy Unknown Rash Verified 02/01/24 11:36 rosuvastatin [Crestor] Allergy Unknown myalgia Verified 02/01/24 11:36 Review of Systems 2 Constitutional: Constitutional: Reports no additional constitutional complaints Cardiovascular: Cardiovascular: Reports no additional cardiovascular complaints PMFSH Past Medical History Attestation statement: The following information was validated with the patient. Source: unable to obtain Medical History Stasis leg ulcer Pacemaker History of TIA (transient ischemic attack) (~2021) History of COVID-19 Tension headache Meningioma Hypertrophic cardiomyopathy Hearing loss Diastolic CHF, 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 Frequency of micturition Chronic abdominal pain Peripheral neuropathy Constipation Diverticulitis Polyarthralgia Primary osteoarthritis of right knee Urinary incontinence History of CVA (cerebrovascular accident) (~2018) Protrusion of lumbar intervertebral disc History of rib fracture Peripheral vascular disease GERD (gastroesophageal reflux disease) Obstructive sleep apnea BPH (benign prostatic hyperplasia) Anxiety and depression Paroxysmal atrial fibrillation COPD (chronic obstructive pulmonary disease) Obesity (BMI 30-39.9) Hypercholesterolemia Hypertension Anemia Current use of anticoagulant therapy Surgical History History of pacemaker History of colonoscopy History of total right hip replacement (~2016) History of transurethral resection of prostate History of tonsillectomy History of left knee replacement (~2007) Family History Family History Father No problems noted. 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 Patient Tobacco Use Status: Never used Tobacco Years Smoked: 30 yrs ago Smoked in Last 30 Days: No Second Hand Smoke Exposure: No Advance Directives: Yes Advance Directives on File: Yes Advance Directives Date on File: 04/06/20 Do you have a plan to hurt others: No Plan service: No Current occupational status: unemployed and retired Current occupation: Right Handed Physical Exam 2 Vital Signs: Vital Signs: Last Vital Signs Temp 98.4 F 02/01/24 12:11 Pulse 96 02/01/24 15:58 Resp 18 02/01/24 15:58 BP 131/57 L 02/01/24 15:58 Pulse Ox 93 02/01/24 15:58 O2 Del Method Room Air 02/01/24 15:58 BMI result Body Mass Index 30.9 patient he is not in distress he has a C-collar on Const: General: cooperative HEENT: Head: Yes normal to inspection Face and sinus: Yes normal facial exam Neck: Other: C-collar on Chest: Chest palpation & inspection: normal inspection of the chest Resp: Effort & Inspection: normal respiratory effort Cardio: Jugular venous distension: no JVD Rate: regular rate Rhythm: r egular rhythm GI: Inspection: Yes normal to inspection Palpation (GI): not firm A uscultation: normal bowel sounds : General: Yes no CVA tenderness Back/Spine/Pelvis: Back: no CVA tenderness Neuro: Cranial nerves: Yes CN's II-XII intact bilaterally Course Reevaluation(s) Reevaluation #1: patient is now in rapid atrial fibrillation, we will start him on diltiazem. He also has an elevated sodium will start him on LR which is a bit hypotonic, BUN is elevated patient has been more confused. I think it is reasonable to admit him [place] [facility] I will add x-ray of the lumbar spine, spoke with Dr palma will check lumbar spine xray report Time: 16:33 Medications Administered Discontinued Medications Generic Name Dose Route Start Last Admin Trade Name Freq PRN Reason Stop Dose Admin Diltiazem HCl 15 mg 02/01/24 15:15 02/01/24 15:22 Diltiazem Hcl 50 Mg/10 Ml Vial IVPUSH 02/01/24 15:16 15 mg STAT STA Administration Medical Decision Making Medical Decision Making [facility] Narrative: patient presented after a fall we will do EKG imaging of the brain Differential Diagnosis Differential Diagnoses: The differential diagnosis associated with the presentation includes subdural hematoma/ epidural hematoma / cervical spine fracture/UTI Admission/Observation Consideration of admission/observation: Escalation of care including admission/observation considered Consult Healthcare Provider Management of the patient was discussed with: Hospitalist Dr Palma Lab Data [facility] Lab Attestation statement: I reviewed the patient's lab results. 02/01/24 12:57 02/01/24 12:57 Labs: Lab Results 02/01/24 Range/Units 12:57 WBC 11.3 H (4.8-10.8) X10*3/uL RBC 4.39 L (4.60-5.80) X10*6/uL Hgb 11.4 L (14.0-18.0) g/dl Hct 37.9 L (42.0-52.0) % MCV 86.3 (80.0-98.0) fL MCH 26.0 L (27.0-33.0) pg MCHC 30.1 L (31.0-36.0) g/dl RDW 15.4 (11.0-16.0) % Plt Count 196 (160-400) X10*3/uL MPV 9.3 L (9.4-12.4) fL Immature Gran % (Auto) 0.6 H (0.0-0.4) % Neut % (Auto) 82.5 H (45-73) % Lymph % (Auto) 11.3 L (20-40) % [place] % (Auto) 5.0 (2-11) % Eos % (Auto) 0.5 (0-4) % Baso % (Auto) 0.1 (0-2) % Lymph # (Auto) 1.3 (1.2-4.9) X10*3/uL [place] # (Auto) 0.6 (0.1-1.2) X10*3/uL Eos # (Auto) 0.1 (0.0-0.4) X10*3/uL Baso # (Auto) 0.0 (0.0-0.2) X10*3/uL Abs Immat Gran (auto) 0.07 H (0.00-0.03) X10*3/uL Absolute Neuts (auto) 9.3 H (2.0-8.3) x10*3/uL Absolute Nucleated RBC 0.000 (0.0-0.012) X10*3/uL Nucleated RBC % (auto) 0.0 (0.0-0.2) /100WBC Sodium 146 H (135-145) mmol/L Potassium 3.8 (3.3-5.1) mmol/L Chloride 108 (96-108) mmol/L Carbon Dioxide 31 H (22-29) mmol/L Anion Gap 11 L (12-20) BUN 26 H (9-16) mg/dL Creatinine 0.89 (0.5-1.4) mg/dL Estim Creat Clear Calc 58.4 Estimated GFR > 60 Random Glucose 125 H (60-115) mg/dL Calcium 8.2 L (8.4-10.2) mg/dL Total Bilirubin 0.4 (0.0-1.0) mg/dL AST 27 (5-37) U/L ALT 18 (0-40) U/L Alkaline Phosphatase 48 (39-117) U/L Troponin I High Sens 72.3 H D (<3.5-35.0) ng/L Total Protein 5.5 L (6.5-8.0) g/dL Albumin 3.0 L (3.5-5.0) g/dL Urine Color Yellow Urine Appearance Clear Urine pH 7.0 (5.0-9.0) Ur Specific [place] 1.010 (1.005-1.025) Urine Protein Negative (Neg-Trace) mg/dL Urine Glucose (UA) Negative (Negative) mg/dL Urine Ketones Negative (Negative) mg/dL Urine Blood Negative (Negative) Urine Nitrite Negative (Negative) Ur Leukocyte Esterase Negative (Negative) Independent Interpretation I performed an independent interpretation of an: EKG Interpretation: sinus rhythm rate [address]-T changes Independent Historian Clinical information obtained from an independent historian. History obtained from or confirmed by: EMS External Record Review External record reviewed: Inpatient record Critical Care Time Critical Care Time Critical Care Time: Yes Total Critical Care Time: 60 Attestation: Iv cardizem and titration Discharge Plan Discharge Clinical Impression: Acute hypernatremia, Atrial fibrillation with RVR Fall Qualifiers: Encounter type: initial encounter Qualified Code(s): W19.XXXA - Unspecified fall, initial encounter Head injury Qualifiers: Encounter type: initial encounter Qualified Code(s): S09.90XA - Unspecified injury of head, initial encounter Prescriptions: No Action tamsulosin 0.4 mg capsule 0.4 mg PO DAILY 90 Days Qty: 90 3RF furosemide 40 mg tablet 40 mg PO DAILY Qty: 30 5RF docusate sodium 100 mg capsule 100 mg PO BID Qty: 60 5RF sucralfate 100 mg/mL suspension 10 ml PO BEDTIME Qty: 400 3RF Xarelto 20 mg tablet 20 mg PO QPM Qty: 90 1RF pantoprazole 40 mg tablet,delayed release (DR/EC) 40 mg PO DAILY@0630 Qty: 90 3RF atorvastatin 80 mg tablet 80 mg PO BEDTIME potassium chloride 10 mEq tablet extended release 1 tab PO BID fluticasone furoate-vilanterol [Breo Ellipta] 200-25 mcg/dose Blister With Device 1 inh INHALATION DAILY multivitamin Tablet 1 tab PO DAILY losartan 50 mg tablet 50 mg PO DAILY ferrous sulfate [FeroSul] 325 mg (65 mg iron) tablet 325 mg PO DAILY fluticasone propionate 50 mcg/actuation spray,suspension 1 spray intranasal DAILY PRN (Reason: Allergy Symptoms) molnupiravir 200 mg capsule 800 mg PO Q12H 5 Days Qty: 40 0RF dexamethasone 4 mg tablet 4 mg PO BID Qty: 6 0RF tramadol 50 mg tablet 50 mg PO Q8H PRN (Reason: severe pain (scale score 7-10)) Qty: 12 0RF lidocaine [Aspercreme (lidocaine)] 4 % adhesive patch,medicated 1 patch topical DAILY PRN (Reason: Lower back pain ) Qty: 5 0RF Rx Instructions: Remove patch after 12 hours carvedilol 25 mg tablet 25 mg PO BID CertaVite Senior 0.4 mg-300 mcg- 250 mcg tablet PO losartan 25 mg tablet 25 mg PO DAILY ketorolac 0.5 % drops ophthalmic (eye) levocetirizine 5 mg tablet 5 mg PO DAILY aspirin 81 mg tablet,delayed release (DR/EC) 81 mg PO DAILY verapamil 120 mg tablet extended release 120 mg PO DAILY methylprednisolone 8 mg tablet PO methylprednisolone 4 mg tablet PO albuterol sulfate 90 mcg/actuation HFA aerosol inhaler inhalation sennosides [senna] 8.6 mg tablet 8.6 mg PO BEDTIME Qty: 90 4RF Print Language: Sinhala
--- NOTE | 2024-02-01 12:25 | ED.FALL ---
HPI - Fall General Chief Complaint: Fall Stated Complaint: Fall Time Seen by Provider: 02/01/24 12:10 Related Data Home Medications ?Medication ?Instructions ?Recorded ?Confirmed atorvastatin 80 mg tablet 80 mg PO BEDTIME 06/03/20 02/01/24 carvedilol 25 mg tablet 25 mg PO BID 12/04/20 02/01/24 potassium chloride 10 mEq 1 tab PO BID 11/14/21 02/01/24 tablet,extended release fluticasone furoate 200 1 inh inhalation DAILY 12/06/22 02/01/24 mcg-vilanterol 25 mcg/dose inhalation powder (Breo Ellipta) ferrous sulfate 325 mg (65 mg 325 mg PO DAILY 12/07/22 02/01/24 iron) tablet (FeroSul) fluticasone propionate 50 1 spray intranasal DAILY PRN 12/07/22 02/01/24 mcg/actuation nasal Allergy Symptoms spray,suspension losartan 50 mg tablet 50 mg PO DAILY 12/07/22 02/01/24 aspirin 81 mg tablet,delayed 81 mg PO DAILY 08/17/23 02/01/24 release ketorolac 0.5 % eye drops 1 drp ophthalmic (eye) BID 08/17/23 02/01/24 losartan 25 mg tablet 25 mg PO DAILY 08/17/23 02/01/24 verapamil 120 mg tablet,extended 120 mg PO DAILY 08/17/23 02/01/24 release acetaminophen 650 mg 1,300 mg PO Q8H PRN Pain 02/01/24 02/01/24 tablet,extended release (Tylenol Arthritis Pain) duloxetine 20 mg capsule,delayed 20 mg PO DAILY 02/01/24 02/01/24 release gabapentin 100 mg capsule 100 mg PO BID 02/01/24 02/01/24 methylprednisolone 4 mg tablet 2 mg PO DAILY@1200 02/01/24 02/01/24 methylprednisolone 4 mg tablet 4 mg PO BID 02/01/24 02/01/24 tcqmacni-jpn-enrpa acid 0.4 1 tab PO DAILY 02/01/24 02/01/24 mg-lycopene 300 mcg-lutein 250 mcg tablet (CertaVite Senior) rivaroxaban 20 mg tablet (Xarelto) 20 mg PO BEDTIME 02/01/24 02/01/24 Previous Rx's ?Medication ?Instructions ?Recorded tamsulosin 0.4 mg capsule 0.4 mg PO DAILY 90 days #90 caps 03/29/21 furosemide 40 mg tablet 40 mg PO DAILY #30 tabs 12/05/22 docusate sodium 100 mg capsule 100 mg PO BID #60 caps 05/20/23 sucralfate 100 mg/mL oral 10 ml PO BEDTIME #400 mL 11/16/23 suspension sennosides 8.6 mg tablet (senna) 8.6 mg PO BEDTIME #90 tabs 11/18/23 pantoprazole 40 mg tablet,delayed 40 mg PO DAILY@0630 #90 tabs 01/29/24 release Allergies Allergy/AdvReac Type Severity Reaction Status Date / Time ezetimibe [From Zetia] Allergy Severe Anaphylaxis Verified 02/01/24 11:36 dabigatran etexilate Allergy Intermediate ITCHING Verified 02/01/24 11:36 [From PRADAXA] JORGE L Inhibitors Allergy Mild UNKNOWN, Verified 02/01/24 11:36 [Jorge L Inhibitors] FOUND IN MEDICAL RECORD 04/[address] GIPSON apixaban [From ELIQUIS] Allergy Unknown Rash Verified 02/01/24 11:36 rosuvastatin [Crestor] Allergy Unknown myalgia Verified 02/01/24 11:36 [facility] Past Medical History Medical History Stasis leg ulcer Pacemaker History of TIA (transient ischemic attack) (~2021) History of COVID-19 Tension headache Meningioma Hypertrophic cardiomyopathy Hearing loss Diastolic CHF, 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 Frequency of micturition Chronic abdominal pain Peripheral neuropathy Constipation Diverticulitis Polyarthralgia Primary osteoarthritis of right knee Urinary incontinence History of CVA (cerebrovascular accident) (~2018) Protrusion of lumbar intervertebral disc History of rib fracture Peripheral vascular disease GERD (gastroesophageal reflux disease) Obstructive sleep apnea BPH (benign prostatic hyperplasia) Anxiety and depression Paroxysmal atrial fibrillation COPD (chronic obstructive pulmonary disease) Obesity (BMI 30-39.9) Hypercholesterolemia Hypertension Anemia Current use of anticoagulant therapy Surgical History History of pacemaker History of colonoscopy History of total right hip replacement (~2016) History of transurethral resection of prostate History of tonsillectomy History of left knee replacement (~2007) Family History Family History Father No problems noted. 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 If so, by whom?: No Do you feel safe in your current relationship?: Yes Is there a partner from a previous relationship who is making you feel unsafe now?: No Are you made to feel afraid or neglected: No Advance Directives: Yes Advance Directives on File: Yes Advance Directives Date on File: 04/06/20 Do you have a plan to hurt others: No Plan Recently lost weight without trying: No Eating poorly because of decreased appetite: No Nutrition Risks: No Nutritional Risk Poor oral hygiene: No service: No Current occupational status: unemployed and retired Current occupation: Right Handed Physical Exam Vital Signs: Vital Signs: Last Vital Signs Temp 97.8 F 02/02/24 15:32 Pulse 80 02/02/24 15:32 Resp 18 02/02/24 15:32 BP 109/56 L 02/02/24 15:32 Pulse Ox 97 02/02/24 15:32 O2 Del Method Room Air 02/02/24 15:32 BMI result Body Mass Index 30.9 Course Reevaluation(s) Reevaluation #1: now in rapid a.fib initial rythm was sinus will start diltiazen Time: 15:19 Medications Administered Generic Name Dose Route Start Last Admin Trade Name Freq PRN Reason Stop Dose Admin Acetaminophen 650 mg 02/01/24 17:28 02/02/24 04:44 Acetaminophen 325 Mg Tablet PO 650 mg Q6H PRN Administration Pain, Mild (Pain Scale 1-3), fever or headache Aspirin 81 mg 02/02/24 09:00 02/02/24 08:21 Aspirin Enteric Coated 81 Mg Tablet. PO 81 mg DAILY DEEPAK Administration Carvedilol 25 mg 02/02/24 09:00 02/02/24 08:21 Carvedilol 25 Mg Tablet PO 25 mg BID DEEPAK Administration Protocol Docusate Sodium 100 mg 02/02/24 09:00 02/02/24 08:21 Docusate Sodium 100 Mg Capsule PO 100 mg BID DEEPAK Administration Duloxetine HCl 20 mg 02/02/24 09:00 02/02/24 08:21 Duloxetine Hcl 20 Mg Capsule. PO 20 mg DAILY DEEPAK Administration Ferrous Sulfate 324 mg 02/02/24 09:00 02/02/24 08:21 Ferrous Sulfate 324 Mg Tablet. PO 324 mg DAILY DEEPAK Administration Fluticasone/Vilanterol 1 puff 02/02/24 09:00 02/02/24 11:10 Fluticasone/Vilanterol 200/25 Blst.W.Dev INHALE Not Given DAILY DEEPAK Furosemide 40 mg 02/02/24 09:00 02/02/24 08:22 Furosemide 40 Mg Tablet PO 40 mg DAILY DEEPAK Administration Protocol Gabapentin 100 mg 02/02/24 09:00 02/02/24 08:30 Gabapentin 100 Mg Capsule PO Not Given BID DEEPAK Diltiazem HCl 125 mg/ Sodium 125 mls @ 0 mls/hr 02/01/24 15:30 02/02/24 14:12 Chloride IVCONT 0 mg/hr .Q0M DEEPAK 0 mls/hr Titration Protocol Per Protocol Ketorolac Tromethamine 1 drop 02/02/24 09:00 02/02/24 09:35 Ketorolac Tromethamine 0.5% Op 5 Ml Drops EYE-BOTH 1 drop BID DEEPAK Administration Losartan Potassium 50 mg 02/02/24 09:00 02/02/24 08:21 Losartan Potassium 50 Mg Tablet PO 50 mg DAILY DEEPAK Administration Protocol Losartan Potassium 25 mg 02/02/24 09:00 02/02/24 08:22 Losartan Potassium 25 Mg Tablet PO 25 mg DAILY DEEPAK Administration Protocol Methylprednisolone 2 mg 02/02/24 12:00 02/02/24 11:35 Methylprednisolone 4 Mg Tablet PO 2 mg DAILY@1200 DEEPAK Administration Methylprednisolone 4 mg 02/02/24 08:00 02/02/24 08:22 Methylprednisolone 4 Mg Tablet PO 4 mg BIDWM DEEPAK Administration Multivitamins/Vitamin C 1 tab 02/02/24 09:00 02/02/24 08:21 Multivitamin Tablet PO 1 tab DAILY DEEPAK Administration Omeprazole 20 mg 02/02/24 06:30 02/02/24 04:58 Omeprazole 20 Mg Capsule.Dr PO 20 mg DAILY@0630 DEEPAK Administration Potassium Chloride 10 meq 02/02/24 09:00 02/02/24 08:21 Potassium Chloride Er 10 Meq Tablet.Er PO 10 meq BID DEEPAK Administration Sodium Chloride 3 ml 02/02/24 00:00 02/02/24 14:55 0.9 % Sodium Chloride Flush 3 Ml Syringe IVFLUSH 3 ml QSHIFT DEEPAK Administration Verapamil HCl 120 mg 02/02/24 03:55 02/02/24 04:44 Verapamil Hcl Sr 120 Mg Tablet.Er PO 120 mg DAILY DEEPAK Administration Protocol Discontinued Medications Generic Name Dose Route Start Last Admin Trade Name Freq PRN Reason Stop Dose Admin Diltiazem HCl 15 mg 02/01/24 15:15 02/01/24 15:22 Diltiazem Hcl 50 Mg/10 Ml Vial IVPUSH 02/01/24 15:16 15 mg STAT STA Administration Diltiazem HCl 10 mg 02/02/24 00:47 02/02/24 00:54 Diltiazem Hcl 50 Mg/10 Ml Vial IVPUSH 02/02/24 00:48 10 mg STAT STA Administration Docusate Sodium 100 mg 02/01/24 21:00 02/01/24 23:17 Docusate Sodium 100 Mg Capsule PO Not Given BID DEEPAK Lactated Ringer's 1,000 mls @ 100 mls/hr 02/01/24 16:30 02/02/24 04:43 Lr IVCONT Not Given .Q10H DEEPAK Lactated Ringer's 1,000 mls @ 75 mls/hr 02/01/24 17:30 02/02/24 07:24 Lr IVCONT 02/02/24 06:49 Infused .[id number] DEEPAK Infusion Medical Decision Making Lab Data 02/02/24 09:58 02/02/24 09:58 Labs: Lab Results 02/01/24 Range/Units 12:57 WBC 11.3 H (4.8-10.8) X10*3/uL RBC 4.39 L (4.60-5.80) X10*6/uL Hgb 11.4 L (14.0-18.0) g/dl Hct 37.9 L (42.0-52.0) % MCV 86.3 (80.0-98.0) fL MCH 26.0 L (27.0-33.0) pg MCHC 30.1 L (31.0-36.0) g/dl RDW 15.4 (11.0-16.0) % Plt Count 196 (160-400) X10*3/uL MPV 9.3 L (9.4-12.4) fL Immature Gran % (Auto) 0.6 H (0.0-0.4) % Neut % (Auto) 82.5 H (45-73) % Lymph % (Auto) 11.3 L (20-40) % [place] % (Auto) 5.0 (2-11) % Eos % (Auto) 0.5 (0-4) % Baso % (Auto) 0.1 (0-2) % Lymph # (Auto) 1.3 (1.2-4.9) X10*3/uL [place] # (Auto) 0.6 (0.1-1.2) X10*3/uL Eos # (Auto) 0.1 (0.0-0.4) X10*3/uL Baso # (Auto) 0.0 (0.0-0.2) X10*3/uL Abs Immat Gran (auto) 0.07 H (0.00-0.03) X10*3/uL Absolute Neuts (auto) 9.3 H (2.0-8.3) x10*3/uL Absolute Nucleated RBC 0.000 (0.0-0.012) X10*3/uL Nucleated RBC % (auto) 0.0 (0.0-0.2) /100WBC Sodium 146 H (135-145) mmol/L Potassium 3.8 (3.3-5.1) mmol/L Chloride 108 (96-108) mmol/L Carbon Dioxide 31 H (22-29) mmol/L Anion Gap 11 L (12-20) BUN 26 H (9-16) mg/dL Creatinine 0.89 (0.5-1.4) mg/dL Estim Creat Clear Calc 58.4 Estimated GFR > 60 Random Glucose 125 H (60-115) mg/dL Calcium 8.2 L (8.4-10.2) mg/dL Total Bilirubin 0.4 (0.0-1.0) mg/dL AST 27 (5-37) U/L ALT 18 (0-40) U/L Alkaline Phosphatase 48 (39-117) U/L Troponin I High Sens 72.3 H D (<3.5-35.0) ng/L Total Protein 5.5 L (6.5-8.0) g/dL Albumin 3.0 L (3.5-5.0) g/dL Urine Color Yellow Urine Appearance Clear Urine pH 7.0 (5.0-9.0) Ur Specific [place] 1.010 (1.005-1.025) Urine Protein Negative (Neg-Trace) mg/dL Urine Glucose (UA) Negative (Negative) mg/dL Urine Ketones Negative (Negative) mg/dL Urine Blood Negative (Negative) Urine Nitrite Negative (Negative) Ur Leukocyte Esterase Negative (Negative) Discharge Plan Discharge Clinical Impression: Acute hypernatremia, Atrial fibrillation with RVR Fall Qualifiers: Encounter type: initial encounter Qualified Code(s): W19.XXXA - Unspecified fall, initial encounter Head injury Qualifiers: Encounter type: initial encounter Qualified Code(s): S09.90XA - Unspecified injury of head, initial encounter Patient Disposition: Admitted As Inpatient Interventions: Admission Worksheet (ED) Last Done: 02/01/24 18:35 Discharge Date/Time: 02/02/24 03:52
[2024-02-01 13:01] LABS: MANUAL DIFF FLAG NO
[2024-02-01 13:04] LABS: Basophils Percent Auto 0.1 % (0-2); Eosinophils Absolute Auto 0.1 X10*3/uL (0.0-0.4); Eosinophils Percent Auto 0.5 % (0-4); Hematocrit 37.9 % (42.0-52.0); Hemoglobin 11.4 g/dl (14.0-18.0); Imm Gran Abs Auto 0.07 X10*3/uL (0.00-0.03); Imm Gran Pct Auto 0.6 % (0.0-0.4); Lymphocytes Absolute Auto 1.3 X10*3/uL (1.2-4.9); Lymphocytes Percent Auto 11.3 % (20-40); Mean Corpuscular HGB Conc 30.1 g/dl (31.0-36.0); Mean Corpuscular Volume 86.3 fL (80.0-98.0); Mean Platelet Volume 9.3 fL (9.4-12.4); Monocytes Absolute Auto 0.6 X10*3/uL (0.1-1.2); Neutrophils Absolute Auto 9.3 x10*3/uL (2.0-8.3); Neutrophils Percent Auto 82.5 % (45-73); Platelet Count 196 X10*3/uL (160-400); Red Blood Count 4.39 X10*6/uL (4.60-5.80); Red Cell Distribution Width 15.4 % (11.0-16.0); White Blood Count 11.3 X10*3/uL (4.8-10.8)
[2024-02-01 13:05] LABS: Appearance Urine Clear; Color Urine Yellow; Glucose Urine UA Negative (Negative); Leukocyte Esterase Urine Negative (Negative); Nitrite Urine Negative (Negative); Urine Blood Negative (Negative); Urine Ketones Negative (Negative); Urine Protein Negative (Neg-Trace)
[2024-02-01 13:18] LABS: Alanine Aminotransferase 18 U/L (0-40); Alkaline Phosphatase 48 U/L (39-117); Anion Gap 11 (12-20); Aspartate Amino Transferase 27 U/L (5-37); Bilirubin Total 0.4 mg/dL (0.0-1.0); Blood Urea Nitrogen 26 mg/dL (9-16); Calcium 8.2 mg/dL (8.4-10.2); Carbon Dioxide 31 mmol/L (22-29); Chloride 108 mmol/L (96-108); Creatinine Clr Calc Pharmacy 58.4; Estimated Glomerular Filt Rate > 60; Glucose Random 125 mg/dL (60-115); Potassium 3.8 mmol/L (3.3-5.1); Sodium 146 mmol/L (135-145); Total Protein 5.5 g/dL (6.5-8.0)
[2024-02-01 13:26] LABS: Troponin-I High Sensitivity 72.3 ng/L (<3.5-35.0)
[2024-02-01] MEDS: dilTIAZem HCL 50 MG/10 ML VIAL 15 MG IVPUSH (15:22)
--- NOTE | 2024-02-01 15:53 | PC.NURSE ---
Pt HR noted to be in the 150s. MD Keen made aware, EKG obtained and signed. Medicated per APR with Cardizem 15mg. HR decreased to low 100s. Pt asymptomatic.
--- NOTE | 2024-02-01 16:32 | P.HPHOSP_ITS ---
History of Present Illness Date of Service: 02/01/24 Chief Complaint: fall, confusion an 88-year-old male with pertinent history of paroxysmal atrial fibrillation on anticoagulation, BPH, essential hypertension, congestive heart failure with preserved ejection fraction, gastroesophageal reflux disease, essential hypertension here from home with report of patient having been confused and may have fallen as he was found leaning aginst his bed with presume head strike. Family have been reporting increasing confusion and trouble voiding. Work up troponin I level of [address] head and neck no acute finding. While in the ED went into AFIB with RVR and required iv cardizem. Review of Systems 2 Review of Systems: Gen: no fever Resp: no sob, no cough CV: no chest, no DELGADO, no leg edema GI: No n/v, no abd pain Neuro: No confusion Yes all other systems are reviewed and are negative [facility] Medical History Stasis leg ulcer Pacemaker History of TIA (transient ischemic attack) (~2021) History of COVID-19 Tension headache Meningioma Hypertrophic cardiomyopathy Hearing loss Diastolic CHF, 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 Frequency of micturition Chronic abdominal pain Peripheral neuropathy Constipation Diverticulitis Polyarthralgia Primary osteoarthritis of right knee Urinary incontinence History of CVA (cerebrovascular accident) (~2018) Protrusion of lumbar intervertebral disc History of rib fracture Peripheral vascular disease GERD (gastroesophageal reflux disease) Obstructive sleep apnea BPH (benign prostatic hyperplasia) Anxiety and depression Paroxysmal atrial fibrillation COPD (chronic obstructive pulmonary disease) Obesity (BMI 30-39.9) Hypercholesterolemia Hypertension Anemia Current use of anticoagulant therapy Family History Father No problems noted. 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 If so, by whom?: No Do you feel safe in your current relationship?: Yes Is there a partner from a previous relationship who is making you feel unsafe now?: No Are you made to feel afraid or neglected: No Advance Directives: Yes Advance Directives on File: Yes Advance Directives Date on File: 04/06/20 Do you have a plan to hurt others: No Plan Recently lost weight without trying: No Eating poorly because of decreased appetite: No Nutrition Risks: No Nutritional Risk Poor oral hygiene: No service: No Current occupational status: unemployed and retired Current occupation: Right Handed Meds Allergies Allergy/AdvReac Type Severity Reaction Status Date / Time ezetimibe [From Zetia] Allergy Severe Anaphylaxis Verified 02/01/24 11:36 dabigatran etexilate Allergy Intermediate ITCHING Verified 02/01/24 11:36 [From PRADAXA] JORGE L Inhibitors Allergy Mild UNKNOWN, Verified 02/01/24 11:36 [Jorge L Inhibitors] FOUND IN MEDICAL RECORD 04/[address] GIPSON apixaban [From ELIQUIS] Allergy Unknown Rash Verified 02/01/24 11:36 rosuvastatin [Crestor] Allergy Unknown myalgia Verified 02/01/24 11:36 Active Medications: Current Medications Diltiazem HCl 125 mg/ Sodium (Chloride) 125 mls @ 0 mls/hr IVCONT .Q0M DEEPAK; Protocol Lactated Ringer's (Lr) 1,000 mls @ 100 mls/hr IVCONT .Q10H REPLACED BY [facility] Home Medications ?Medication ?Instructions ?Recorded ?Confirmed ?Last Taken ?Type atorvastatin 80 mg tablet 80 mg PO BEDTIME 06/03/20 02/01/24 01/31/24 History carvedilol 25 mg tablet 25 mg PO BID 12/04/20 02/01/24 02/01/24 History potassium chloride 10 mEq 1 tab PO BID 11/14/21 02/01/24 02/01/24 History tablet,extended release fluticasone furoate 200 1 inh inhalation DAILY 12/06/22 02/01/24 02/01/24 History mcg-vilanterol 25 mcg/dose inhalation powder (Breo Ellipta) ferrous sulfate 325 mg (65 mg 325 mg PO DAILY 12/07/22 02/01/24 02/01/24 History iron) tablet (FeroSul) fluticasone propionate 50 1 spray intranasal DAILY PRN 12/07/22 02/01/24 Unknown History mcg/actuation nasal Allergy Symptoms spray,suspension losartan 50 mg tablet 50 mg PO DAILY 12/07/22 02/01/24 02/01/24 History aspirin 81 mg tablet,delayed 81 mg PO DAILY 08/17/23 02/01/24 02/01/24 History release ketorolac 0.5 % eye drops 1 drp ophthalmic (eye) BID 08/17/23 02/01/24 02/01/24 History losartan 25 mg tablet 25 mg PO DAILY 08/17/23 02/01/24 02/01/24 History verapamil 120 mg tablet,extended 120 mg PO DAILY 08/17/23 02/01/24 02/01/24 History release acetaminophen 650 mg 1,300 mg PO Q8H PRN Pain 02/01/24 02/01/24 Unknown History tablet,extended release (Tylenol Arthritis Pain) duloxetine 20 mg capsule,delayed 20 mg PO DAILY 02/01/24 02/01/24 02/01/24 History release gabapentin 100 mg capsule 100 mg PO BID 02/01/24 02/01/24 02/01/24 History methylprednisolone 4 mg tablet 2 mg PO DAILY@1200 02/01/24 02/01/24 01/31/24 History methylprednisolone 4 mg tablet 4 mg PO BID 02/01/24 02/01/24 01/31/24 History wjwpyyvj-ynw-usivm acid 0.4 1 tab PO DAILY 02/01/24 02/01/24 02/01/24 History mg-lycopene 300 mcg-lutein 250 mcg tablet (CertaVite Senior) rivaroxaban 20 mg tablet (Xarelto) 20 mg PO BEDTIME 02/01/24 02/01/24 02/01/24 History Physical Exam 2 Vital Signs and Narrative: Vital Signs: Last Vital Signs Temp 98.4 F 02/01/24 12:11 Pulse 96 02/01/24 15:58 Resp 18 02/01/24 15:58 BP 131/57 L 02/01/24 15:58 Pulse Ox 93 02/01/24 15:58 O2 Del Method Room Air 02/01/24 15:58 BMI result Body Mass Index 30.9 Const: Other: Constitutional: Alert, in no distress, overweight. Mental Status: Oriented to person, place and time. Eyes: Pupils are equal, round and reactive to light. Ear, Nose and Throat: Oropharynx clear, mucous membranes moist. Ears and nose without eformities. Trachea midline. Respiratory: Clear to auscultation. No wheezing, rales or rhonchi. Cardiovascular: S1 S2 regular. No murmurs, rubs or gallops. Gastrointestinal: Abdomen soft, non-tender, non-distended. Normal bowel sounds.? Neurologic: Cranial nerves II-XII grossly intact. No focal neurological deficits. Moves all extremities spontaneously.? Skin: No rashes or lesions.? Musculoskeletal: No cyanosis or clubbing. Psychiatric: Normal mood and affect? Results Labs 02/02/24 09:58 02/02/24 09:58 Labs: Laboratory Results - last 24 hr 02/01/24 12:57 MCV 86.3 MCH 26.0 L MCHC 30.1 L RDW 15.4 Plt Count 196 MPV 9.3 L Immature Gran % (Auto) 0.6 H Neut % (Auto) 82.5 H Lymph % (Auto) 11.3 L [place] % (Auto) 5.0 Eos % (Auto) 0.5 Baso % (Auto) 0.1 Lymph # (Auto) 1.3 [place] # (Auto) 0.6 Eos # (Auto) 0.1 Baso # (Auto) 0.0 Abs Immat Gran (auto) 0.07 H Absolute Neuts (auto) 9.3 H Absolute Nucleated RBC 0.000 Nucleated RBC % (auto) 0.0 Anion Gap 11 L Estim Creat Clear Calc 58.4 Estimated GFR > 60 Random Glucose 125 H Calcium 8.2 L Total Bilirubin 0.4 AST 27 ALT 18 Alkaline Phosphatase 48 Troponin I High Sens 72.3 H D Total Protein 5.5 L Albumin 3.0 L Urine Color Yellow Urine Appearance Clear Urine pH 7.0 Ur Specific [place] 1.010 Urine Protein Negative Urine Glucose (UA) Negative Urine Ketones Negative Urine Blood Negative Urine Nitrite Negative Ur Leukocyte Esterase Negative Imaging Radiologist's Impressions: Impressions Head CT 02/01/24 12:10 IMPRESSION: HEAD: No acute intracranial hemorrhage or mass effect. CERVICAL SPINE: No acute fracture or subluxation. Straightening of the normal cervical lordosis which may be positional or related to muscular spasm. 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 Electronically signed by: Zackery Regalado MD 02/01/2024 03:37 PM EST RP Cervical Spine CT 02/01/24 13:24 IMPRESSION: HEAD: No acute intracranial hemorrhage or mass effect. CERVICAL SPINE: No acute fracture or subluxation. Straightening of the normal cervical lordosis which may be positional or related to muscular spasm. 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 Electronically signed by: Zackery Regalado MD 02/01/2024 03:37 PM EST RP Assessment and Plan (1) Atrial fibrillation with RVR: Status: Acute Plan 88/m with pertinent history of paroxysmal atrial fibrillation on anticoagulation, BPH, essential hypertension, congestive heart failure with preserved ejection fraction, gastroesophageal reflux disease, essential hypertension here with weakness, confusion, afib with RVR Fall likely d/t multifactorial --dehydration, afib with rvr -hydrate, treat afib AFIB with RVR--RVR resolved with IV cardizem -resume home medication, including anticoaugation (xarelto) -cardiology consult if persistently high Elevated troponin-likely from afib with rvr -repeat and monitor BPH on Flomax COPD on fluticasone and vilanterol.? No concern for exacerbation at the time of admission Gastroesophageal reflux disease :continue PPI Essential hypertension :continue home medications Congestive Heart failure with preserved ejection fraction. Continue Lasix DVT prophylaxis: Xarelto Full code Admit as inpatient and will require two night minimum hospital stay the managment of afib with rvr, Quality Stroke Does the patient have a stroke diagnosis?: No VTE Prior VTE?: No VTE Risk Level:: Medical - moderate - high VTE Device Contraindication: Treatment Not Indicated VTE Drug Contraindication: N/A - Med Ordered
[2024-02-01] MEDS: Lactated Ringers 1,000 ML 75 ML IVCONT (17:51)
--- NOTE | 2024-02-01 17:58 | PHA.MEDREC ---
Addendum entered by Liz Koenig [facility] 02/01/24 18:25: REVIEWED, patient has been consistently picking up both losartan 25 and 50 mg, suspect to make 75 mg. Original Note: Pharmacy Consult ? Medication Reconciliation Pharmacy has completed the medication reconciliation. Spoke to patients HCP/Family [place] and she was able to confirm some of the patients medications, she was not sure what high blood pressure medications the patient was taking but states he is taking 3 different ones, I asked if it was the Carvedilol 25mg tab and the Losartan 25mg and 50mg tabs but she did not remember the names of them, I kept those on the med rec since they were recently filled. She confirmed the patient just finished the Cyclobenzaprine 25mg tab and the Dexamethasone 4mg tab yesterday. She confirmed the patient is taking Gabapentin 100mg tab 1 BID. She confirmed the patient is taking Methyprednisolone 4mg tab and taking 1 tab in the morning 1/2 tab at noon and 1 tab at bedtime. She confirmed the patient took his morning medications this morning.
[2024-02-01 18:01] LABS: Troponin-I High Sensitivity 88.1 ng/L (<3.5-35.0)
[2024-02-02] VITALS (10 sets, daily range): BP systolic 104–152; BP diastolic 56–75; PULSE 66–141; RESP 16–18; TEMP 36–37.1; O2SAT 96–99
--- NOTE | 2024-02-02 00:42 | PC.NURSE ---
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 Dr. Mckeon notified.
--- NOTE | 2024-02-02 00:53 | PC.NURSE ---
New order received from Dr. Mckeon to administer Cardizem 10 mg IV push and start Cardizem gtt per protocol. Patient mediated per APR.
[2024-02-02] MEDS: dilTIAZem HCL 50 MG/10 ML VIAL 10 MG IVPUSH (00:54)
[2024-02-02] MEDS: dilTIAZem HCL 125 MG in 0.9 % Sodium Chloride 100 ML 10 MG IVCONT (01:05)
--- NOTE | 2024-02-02 01:23 | PC.NURSE ---
HR 101-115, no titration required, Cardizem gtt continues to infuse at 10 mg/hr. Patient remaining asymptomatic: denies chest pain/heart palpitations, SOB, non-diaphoretic.
--- NOTE | 2024-02-02 03:51 | PC.NURSE ---
Hr 78-90, Cardizem drip placed o hold. Dr. Mckeon made aware.
[2024-02-02] MEDS: VerapamiL HCL SR 120 MG TABLET.ER PO (04:44)
[2024-02-02] MEDS: Acetaminophen 325 MG TABLET 650 MG PO (04:44)
[2024-02-02] MEDS: Omeprazole 20 MG CAPSULE.DR PO (04:58)
[2024-02-02] MEDS: DULoxetine HCl 20 MG CAPSULE.DR PO (08:21)
[2024-02-02] MEDS: Losartan Potassium 50 MG TABLET PO (08:21)
[2024-02-02] MEDS: Multivitamin TABLET 1 TAB PO (08:21)
[2024-02-02] MEDS: Potassium Chloride ER 10 MEQ TABLET.ER PO ×2 (08:21→19:52)
[2024-02-02] MEDS: Ferrous Sulfate 324 MG TABLET.DR PO (08:21)
[2024-02-02] MEDS: carvediloL 25 MG TABLET PO ×2 (08:21→19:53)
[2024-02-02] MEDS: Docusate Sodium 100 MG CAPSULE PO ×2 (08:21→19:53)
[2024-02-02] MEDS: Aspirin Enteric Coated 81 MG TABLET.DR PO (08:21)
[2024-02-02] MEDS: Losartan Potassium 25 MG TABLET PO (08:22)
[2024-02-02] MEDS: methylPREDNISolone 4 MG TABLET PO ×2 (08:22→16:43)
[2024-02-02] MEDS: Furosemide 40 MG TABLET PO (08:22)
[2024-02-02] MEDS: 0.9 % Sodium Chloride Flush 3 ML SYRINGE IVFLUSH ×3 (08:23→23:58)
[2024-02-02] MEDS: Ketorolac Tromethamine 0.5% Op 5 ML DROPS 1 DROP EYE-BOTH ×2 (09:35→20:14)
[2024-02-02 10:06] LABS: Hematocrit 38.3 % (42.0-52.0); Hemoglobin 11.6 g/dl (14.0-18.0); Mean Corpuscular HGB Conc 30.3 g/dl (31.0-36.0); Mean Corpuscular Volume 85.7 fL (80.0-98.0); Mean Platelet Volume 9.5 fL (9.4-12.4); Platelet Count 210 X10*3/uL (160-400); Red Blood Count 4.47 X10*6/uL (4.60-5.80); Red Cell Distribution Width 15.3 % (11.0-16.0); White Blood Count 10.9 X10*3/uL (4.8-10.8)
[2024-02-02 10:32] LABS: Anion Gap 19 (12-20); Blood Urea Nitrogen 31 mg/dL (9-16); Carbon Dioxide 24 mmol/L (22-29); Chloride 106 mmol/L (96-108); Creatinine Clr Calc Pharmacy 41.2; Estimated Glomerular Filt Rate 54; Glucose Random 146 mg/dL (60-115); Potassium 3.5 mmol/L (3.3-5.1); Sodium 145 mmol/L (135-145)
[2024-02-02] MEDS: methylPREDNISolone 4 MG TABLET 2 MG PO (11:35)
[2024-02-02 12:50] LABS: VBG Base Excess 2.5 mmol/L; VBG HCO3 24 mmol/L (22-26); VBG pCO2 29 mmHg; VBG pH 7.53 (7.32-7.43); VBG pO2 59 mmHg
[2024-02-02 12:53] LABS: Venous Blood Gas Refer to POC result
[2024-02-02 12:53] LABS: Ammonia 36 umol/L (13-55)
--- NOTE | 2024-02-02 13:30 | MHC.CM.PN ---
IMM 02/01. This CM met with pt with the assistance of a contract implementation analyst. Pt lives at home with his , daughter, and grandson. He has 34.75 [employer] hours/week. Pt uses a walker. Pt will need assistance with transportation home at discharge. HCP on file and verified. PCP: Dr. Crystal Vera
--- NOTE | 2024-02-02 13:48 | P.PNIM_ITS ---
Subjective Subjective Date of Service: 02/02/24 Interval History: Patient presented wtih fall and has had periods of confusion, and found to be in afib with rvr overnight noted to have periods of consusiion, but seems clear this morning. Still with intermittently tachychardia and has been on cardizem joaquin Physical Exam 2 Vital Signs: Vital Signs: Last Vital Signs Temp 98.7 F 02/02/24 11:13 Pulse 66 02/02/24 11:13 Resp 18 02/02/24 11:13 BP 104/56 L 02/02/24 11:13 Pulse Ox 96 02/02/24 11:13 O2 Del Method Room Air 02/02/24 11:13 BMI result Body Mass Index 30.9 Const: Other: General: AO X 3, no acute distress Resp: CTA bilateral CVS: S1,S2, iregular iregular GI: +BS, NT, no distention Skin: No rash Neuro: motor grossly intact Psych: appropriate affect Objective Data Active Medications Acetaminophen (Acetaminophen 325 Mg Tablet) 650 mg PO Q6H PRN PRN Reason: Pain, Mild (Pain Scale 1-3), fever or headache Last Admin: 02/02/24 04:44 Dose: 650 mg Documented By: JOSIAH Aspirin (Aspirin Enteric Coated 81 Mg Tablet.) 81 mg PO DAILY [facility] Last Admin: 02/02/24 08:21 Dose: 81 mg Documented By: NEL Atorvastatin Calcium (Atorvastatin Calcium 80 Mg Tablet) 80 mg PO BEDTIME [facility] Calcium Carbonate (Calcium Carbonate 750 Mg Tab.Chew) 750 mg PO Q4H PRN PRN Reason: Heartburn Carvedilol (Carvedilol 25 Mg Tablet) 25 mg PO BID [facility]; Protocol Last Admin: 02/02/24 08:21 Dose: 25 mg Documented By: NEL Docusate Sodium (Docusate Sodium 100 Mg Capsule) 100 mg PO BID [facility] Last Admin: 02/02/24 08:21 Dose: 100 mg Documented By: NEL Duloxetine HCl (Duloxetine Hcl 20 Mg Capsule.) 20 mg PO DAILY [facility] Last Admin: 02/02/24 08:21 Dose: 20 mg Documented By: NEL Ferrous Sulfate (Ferrous Sulfate 324 Mg Tablet.) 324 mg PO DAILY [facility] Last Admin: 02/02/24 08:21 Dose: 324 mg Documented By: NEL Fluticasone Propionate (Fluticasone Propionate Nasal 16 Gm [place]) 1 spray NOSTRIL-B DAILY PRN PRN Reason: Allergy Symptoms Fluticasone/Vilanterol (Fluticasone/Vilanterol 200/25 Blst.W.Dev) 1 puff INHALE DAILY [facility] Last Admin: 02/02/24 11:10 Dose: Not Given Documented By: NEL Non-Admin Reason: Patient Refused Furosemide (Furosemide 40 Mg Tablet) 40 mg PO DAILY [facility]; Protocol Last Admin: 02/02/24 08:22 Dose: 40 mg Documented By: NEL Gabapentin (Gabapentin 100 Mg Capsule) 100 mg PO BID [facility] Last Admin: 02/02/24 08:30 Dose: Not Given Documented By: NEL Non-Admin Reason: Patient Refused Diltiazem HCl 125 mg/ Sodium (Chloride) 125 mls @ 0 mls/hr IVCONT .Q0M DEEPAK; Protocol Last Titration: 02/02/24 07:19 Dose: 5 mg/hr, 5 mls/hr Documented By: NEL Ketorolac Tromethamine (Ketorolac Tromethamine 0.5% Op 5 Ml Drops) 1 drop EYE- BOTH BID [facility] Last Admin: 02/02/24 09:35 Dose: 1 drop Documented By: NEL Losartan Potassium (Losartan Potassium 50 Mg Tablet) 50 mg PO DAILY [facility]; Protocol Last Admin: 02/02/24 08:21 Dose: 50 mg Documented By: NEL Losartan Potassium (Losartan Potassium 25 Mg Tablet) 25 mg PO DAILY [facility]; Protocol Last Admin: 02/02/24 08:22 Dose: 25 mg Documented By: NEL Magnesium Hydroxide (Milk Of Magnesia 30 Ml Oral.Susp) 30 ml PO DAILY PRN PRN Reason: Constipation Melatonin (Melatonin 3 Mg Tablet) 6 mg PO BEDTIME PRN PRN Reason: Insomnia Methylprednisolone (Methylprednisolone 4 Mg Tablet) 2 mg PO DAILY@1200 [facility] Last Admin: 02/02/24 11:35 Dose: 2 mg Documented By: NEL Methylprednisolone (Methylprednisolone 4 Mg Tablet) 4 mg PO BIDWM [facility] Last Admin: 02/02/24 08:22 Dose: 4 mg Documented By: NEL Multivitamins/Vitamin C (Multivitamin Tablet) 1 tab PO DAILY [facility] Last Admin: 02/02/24 08:21 Dose: 1 tab Documented By: NEL Omeprazole (Omeprazole 20 Mg Capsule.Dr) 20 mg PO DAILY@0630 [facility] Last Admin: 02/02/24 04:58 Dose: 20 mg Documented By: JOSIAH Ondansetron HCl (Ondansetron Hcl 4 Mg/2 Ml Vial) 4 mg IVPUSH Q8H PRN PRN Reason: Nausea and Vomiting Polyethylene Glycol (Polyethylene Glycol 3350 17 Gm Powd.Pack) 17 gm PO DAILY PRN PRN Reason: Constipation Potassium Chloride (Potassium Chloride Er 10 Meq Tablet.Er) 10 meq PO BID [facility] Last Admin: 02/02/24 08:21 Dose: 10 meq Documented By: NEL Rivaroxaban (Rivaroxaban 20 Mg Tablet) 20 mg PO DAILY@1700 [facility] Senna (Sennosides 8.6 Mg Tablet) 8.6 mg PO BEDTIME [facility] Sodium Chloride (0.9 % Sodium Chloride Flush 3 Ml Syringe) 3 ml IVFLUSH QSHIFT [facility] Last Admin: 02/02/24 08:23 Dose: 3 ml Documented By: NEL Sucralfate (Sucralfate Oral Suspension 1 Gm/10 Ml Oral.Susp) 1 gm PO BEDTIME [facility] Tamsulosin HCl (Tamsulosin Hcl 0.4 Mg Capsule) 0.4 mg PO DAILY@1730 [facility] Verapamil HCl (Verapamil Hcl Sr 120 Mg Tablet.Er) 120 mg PO DAILY [facility]; Protocol Last Admin: 02/02/24 04:44 Dose: 120 mg Documented By: JOSIAH Labs 02/03/24 08:03 02/03/24 08:03 Labs: Laboratory Results - last 24 hr 02/01/24 02/02/24 02/02/24 17:34 09:58 12:37 MCV 85.7 MCH 26.0 L MCHC 30.3 L RDW 15.3 Plt Count 210 MPV 9.5 Absolute Nucleated RBC 0.000 Nucleated RBC % (auto) 0.0 VBG pH VBG pCO2 VBG pO2 VBG HCO3 VBG O2 Saturation VBG Base Excess Anion Gap 19 Estim Creat Clear Calc 41.2 Estimated GFR 54 Random Glucose 146 H Calcium 8.0 L Ammonia 36 Troponin I High Sens 88.1 H 02/02/24 12:40 MCV MCH MCHC RDW Plt Count MPV Absolute Nucleated RBC Nucleated RBC % (auto) VBG pH 7.53 H VBG pCO2 29 VBG pO2 59 VBG HCO3 24 VBG O2 Saturation 90.0 VBG Base Excess 2.5 Anion Gap Estim Creat Clear Calc Estimated GFR Random Glucose Calcium Ammonia Troponin I High Sens Assessment and Plan (1) Paroxysmal atrial fibrillation: Status: Acute Plan 88/m with history of complete heart block--has pace maker, history of paroxysmal atrial fibrillation (PAF) on xarelto, BPH, hypertension, congestive heart failure with preserved ejection fraction, gastroesophageal reflux disease, essential hypertension here with weakness, confusion, afib with RVR Fall likely d/t multifactorial --dehydration, afib with rvr -PT eval prior to dc Confusion, ct head ok, ammonia nl, abg ok, no uti , no fever.. monitor for now AFIB with IVR\ - continue core and verapamil -wean off cardizem drip -cardiology for med management -continue xarelto Elevated troponin-likely from afib with rvr -repeat no significant shift BPH on Flomax COPD on fluticasone and vilanterol.? no exacerbation Gastroesophageal reflux disease :continue PPI Essential hypertension :continue home medications Congestive Heart failure with preserved ejection fraction. Continue Lasix DVT prophylaxis: Xarelto Full code Quality Stroke Does the patient have a stroke diagnosis?: No VTE Prior VTE?: No VTE Risk Level:: Medical - moderate - high VTE Device Contraindication: Treatment Not Indicated VTE Drug Contraindication: N/A - Med Ordered
[2024-02-02] MEDS: Tamsulosin HCL 0.4 MG CAPSULE PO (16:42)
[2024-02-02] MEDS: Rivaroxaban 20 MG TABLET PO (16:43)
[2024-02-02] MEDS: Sennosides 8.6 MG TABLET PO (19:52)
[2024-02-02] MEDS: Atorvastatin Calcium 80 MG TABLET PO (19:52)
[2024-02-02] MEDS: Gabapentin 100 MG CAPSULE PO (19:52)
[2024-02-02] MEDS: Sucralfate Oral Suspension 1 GM/10 ML ORAL.SUSP PO (19:53)
[2024-02-03] VITALS (12 sets, daily range): BP systolic 70–158; BP diastolic 46–73; PULSE 68–101; RESP 12–20; TEMP 36.2–36.8; O2SAT 93–98
--- NOTE | 2024-02-03 | ECG_ITS ---
Test Reason : hypotension Blood Pressure : / mmHG Vent. Rate : 083 BPM Atrial Rate : 000 BPM P-R Int : 000 ms QRS Dur : 116 ms QT Int : 446 ms P-R-T Axes : 000 004 -45 degrees QTc Int : 524 ms Atrial fibrillation with frequent ventricular-paced complexes and with premature ventricular or aberrantly conducted complexes Incomplete right bundle branch block Lateral infarct , possibly acute T wave abnormality, consider inferior ischemia Prolonged QT ACUTE ND / STEMI Abnormal ECG When compared with ECG of 01-FEB-2024 12:19, Premature ventricular complexes are no longer Present Vent. rate has decreased BY 15 BPM Referred By: Flaco Back Electronically Signed By:
[2024-02-03] MEDS: Omeprazole 20 MG CAPSULE.DR PO (06:14)
[2024-02-03] MEDS: Fluticasone/Vilanterol 200/25 BLST.W.DEV 1 PUFF INHALE (07:43)
[2024-02-03 08:13] LABS: Hematocrit 34.2 % (42.0-52.0); Hemoglobin 10.6 g/dl (14.0-18.0); Mean Corpuscular Volume 83.8 fL (80.0-98.0); Mean Platelet Volume 9.4 fL (9.4-12.4); Platelet Count 202 X10*3/uL (160-400); Red Blood Count 4.08 X10*6/uL (4.60-5.80); Red Cell Distribution Width 15.4 % (11.0-16.0); White Blood Count 8.2 X10*3/uL (4.8-10.8)
[2024-02-03 08:25] LABS: Anion Gap 13 (12-20); Blood Urea Nitrogen 34 mg/dL (9-16); Calcium 8.6 mg/dL (8.4-10.2); Carbon Dioxide 26 mmol/L (22-29); Chloride 110 mmol/L (96-108); Creatinine Clr Calc Pharmacy 50.9; Estimated Glomerular Filt Rate > 60; Glucose Random 149 mg/dL (60-115); Potassium 3.5 mmol/L (3.3-5.1); Sodium 145 mmol/L (135-145)
[2024-02-03] MEDS: dilTIAZem HCL 125 MG in 0.9 % Sodium Chloride 100 ML 10 MG IVCONT (09:12)
[2024-02-03] MEDS: Losartan Potassium 50 MG TABLET PO (09:19)
[2024-02-03] MEDS: DULoxetine HCl 20 MG CAPSULE.DR PO (09:21)
[2024-02-03] MEDS: Acetaminophen 325 MG TABLET 650 MG PO (09:21)
[2024-02-03] MEDS: Docusate Sodium 100 MG CAPSULE PO ×2 (09:25→20:10)
[2024-02-03] MEDS: Aspirin Enteric Coated 81 MG TABLET.DR PO (09:25)
[2024-02-03] MEDS: Potassium Chloride ER 10 MEQ TABLET.ER PO ×2 (09:25→20:11)
[2024-02-03] MEDS: methylPREDNISolone 4 MG TABLET PO ×2 (09:26→17:18)
[2024-02-03] MEDS: carvediloL 25 MG TABLET PO ×2 (09:26→20:10)
[2024-02-03] MEDS: Ferrous Sulfate 324 MG TABLET.DR PO (09:26)
[2024-02-03] MEDS: Gabapentin 100 MG CAPSULE PO ×2 (09:26→20:11)
[2024-02-03] MEDS: Furosemide 40 MG TABLET PO (09:26)
[2024-02-03] MEDS: Ketorolac Tromethamine 0.5% Op 5 ML DROPS 1 DROP EYE-BOTH ×2 (09:27→20:11)
[2024-02-03] MEDS: Multivitamin TABLET 1 TAB PO (09:27)
[2024-02-03] MEDS: 0.9 % Sodium Chloride Flush 3 ML SYRINGE IVFLUSH ×2 (09:27→15:31)
--- NOTE | 2024-02-03 10:48 | P.PNIM_ITS ---
Subjective Subjective Date of Service: 02/03/24 Interval History: Patient presented wtih fall and has had periods of confusion, and found to be in afib with rvr. Patient remains confused, at time hallucinating, no fever or chills, wbc normal, ammonia, normal, abg no acidosis. He went back in afib with rvr this morning and had to be back on cardizem, and amiodarone started, he had a brief epiosoe of hypotension, diaphresis resulting hattie [employer]. He was moved from chair to bed , and blood pressure promptly improved from SBD of 70 to 118 before fluid was started. Physical Exam 2 Vital Signs: Vital Signs: Last Vital Signs Temp 97.1 F 02/03/24 07:52 Pulse 88 02/03/24 07:52 Resp 20 02/03/24 07:52 BP 118/59 L 02/03/24 07:52 Pulse Ox 97 02/03/24 07:52 O2 Del Method Room Air 02/03/24 07:52 BMI result Body Mass Index 30.9 Const: Other: General: oriented to self, and aware of being in hospital Resp: CTA bilateral CVS: S1,S2, iregular iregular GI: +BS, NT, no distention Skin: No rash Neuro: motor grossly intact Psych: flat affect and intermittent confusion Objective Data Active Medications Acetaminophen (Acetaminophen 325 Mg Tablet) 650 mg PO Q6H PRN PRN Reason: Pain, Mild (Pain Scale 1-3), fever or headache Last Admin: 02/03/24 09:21 Dose: 650 mg Documented By: ALEXA Amiodarone HCl (Amiodarone Hcl 200 Mg Tablet) 400 mg PO BID [facility] Aspirin (Aspirin Enteric Coated 81 Mg Tablet.) 81 mg PO DAILY [facility] Last Admin: 02/03/24 09:25 Dose: 81 mg Documented By: ALEXA Atorvastatin Calcium (Atorvastatin Calcium 80 Mg Tablet) 80 mg PO BEDTIME [facility] Last Admin: 02/02/24 19:52 Dose: 80 mg Documented By: FELICITY Calcium Carbonate (Calcium Carbonate 750 Mg Tab.Chew) 750 mg PO Q4H PRN PRN Reason: Heartburn Carvedilol (Carvedilol 25 Mg Tablet) 25 mg PO BID [facility]; Protocol Last Admin: 02/03/24 09:26 Dose: 25 mg Documented By: ALEXA Docusate Sodium (Docusate Sodium 100 Mg Capsule) 100 mg PO BID [facility] Last Admin: 02/03/24 09:25 Dose: 100 mg Documented By: ALEXA Duloxetine HCl (Duloxetine Hcl 20 Mg Capsule.) 20 mg PO DAILY [facility] Last Admin: 02/03/24 09:21 Dose: 20 mg Documented By: ALEXA Ferrous Sulfate (Ferrous Sulfate 324 Mg Tablet.) 324 mg PO DAILY [facility] Last Admin: 02/03/24 09:26 Dose: 324 mg Documented By: ALEXA Fluticasone Propionate (Fluticasone Propionate Nasal 16 Gm [place]) 1 spray NOSTRIL-B DAILY PRN PRN Reason: Allergy Symptoms Fluticasone/Vilanterol (Fluticasone/Vilanterol 200/25 Blst.W.Dev) 1 puff INHALE DAILY [facility] Last Admin: 02/03/24 07:43 Dose: 1 puff Documented By: BABAK Furosemide (Furosemide 40 Mg Tablet) 40 mg PO DAILY [facility]; Protocol Last Admin: 02/03/24 09:26 Dose: 40 mg Documented By: ALEXA Gabapentin (Gabapentin 100 Mg Capsule) 100 mg PO BID [facility] Last Admin: 02/03/24 09:26 Dose: 100 mg Documented By: ALEXA Diltiazem HCl 125 mg/ Sodium (Chloride) 125 mls @ 0 mls/hr IVCONT .Q0M [facility]; Protocol Last Titration: 02/03/24 10:24 Dose: 0 mg/hr, 0 mls/hr Documented By: ALEXA Ketorolac Tromethamine (Ketorolac Tromethamine 0.5% Op 5 Ml Drops) 1 drop EYE- BOTH BID [facility] Last Admin: 02/03/24 09:27 Dose: 1 drop Documented By: ALEXA Losartan Potassium (Losartan Potassium 50 Mg Tablet) 50 mg PO DAILY [facility]; Protocol Last Admin: 02/03/24 09:19 Dose: 50 mg Documented By: ALEXA Losartan Potassium (Losartan Potassium 25 Mg Tablet) 25 mg PO DAILY [facility]; Protocol Last Admin: 02/03/24 09:20 Dose: Not Given Documented By: ALEXA Non-Admin Reason: Physician Held Med Magnesium Hydroxide (Milk Of Magnesia 30 Ml Oral.Susp) 30 ml PO DAILY PRN PRN Reason: Constipation Melatonin (Melatonin 3 Mg Tablet) 6 mg PO BEDTIME PRN PRN Reason: Insomnia Methylprednisolone (Methylprednisolone 4 Mg Tablet) 2 mg PO DAILY@1200 [facility] Last Admin: 02/02/24 11:35 Dose: 2 mg Documented By: NEL Methylprednisolone (Methylprednisolone 4 Mg Tablet) 4 mg PO BIDWM [facility] Last Admin: 02/03/24 09:26 Dose: 4 mg Documented By: ALEXA Multivitamins/Vitamin C (Multivitamin Tablet) 1 tab PO DAILY [facility] Last Admin: 02/03/24 09:27 Dose: 1 tab Documented By: ALEXA Omeprazole (Omeprazole 20 Mg Capsule.Dr) 20 mg PO DAILY@0630 [facility] Last Admin: 02/03/24 06:14 Dose: 20 mg Documented By: FELICITY Ondansetron HCl (Ondansetron Hcl 4 Mg/2 Ml Vial) 4 mg IVPUSH Q8H PRN PRN Reason: Nausea and Vomiting Polyethylene Glycol (Polyethylene Glycol 3350 17 Gm Powd.Pack) 17 gm PO DAILY PRN PRN Reason: Constipation Potassium Chloride (Potassium Chloride Er 10 Meq Tablet.Er) 10 meq PO BID [facility] Last Admin: 02/03/24 09:25 Dose: 10 meq Documented By: ALEXA Rivaroxaban (Rivaroxaban 20 Mg Tablet) 20 mg PO DAILY@1700 [facility] Last Admin: 02/02/24 16:43 Dose: 20 mg Documented By: NEL Senna (Sennosides 8.6 Mg Tablet) 8.6 mg PO BEDTIME [facility] Last Admin: 02/02/24 19:52 Dose: 8.6 mg Documented By: FELICITY Sodium Chloride (0.9 % Sodium Chloride Flush 3 Ml Syringe) 3 ml IVFLUSH QSHIFT [facility] Last Admin: 02/03/24 09:27 Dose: 3 ml Documented By: ALEXA Sucralfate (Sucralfate Oral Suspension 1 Gm/10 Ml Oral.Susp) 1 gm PO BEDTIME [facility] Last Admin: 02/02/24 19:53 Dose: 1 gm Documented By: FELICITY Tamsulosin HCl (Tamsulosin Hcl 0.4 Mg Capsule) 0.4 mg PO DAILY@1730 [facility] Last Admin: 02/02/24 16:42 Dose: 0.4 mg Documented By: NEL Verapamil HCl (Verapamil Hcl Sr 120 Mg Tablet.Er) 120 mg PO DAILY [facility]; Protocol Last Admin: 02/03/24 09:27 Dose: Not Given Documented By: ALEXA Non-Admin Reason: Physician Held Med Labs 02/03/24 08:03 02/03/24 08:03 Labs: Laboratory Results - last 24 hr 02/02/24 02/02/24 02/03/24 12:37 12:40 08:03 MCV 83.8 MCH 26.0 L MCHC 31.0 RDW 15.4 Plt Count 202 MPV 9.4 Absolute Nucleated RBC 0.000 Nucleated RBC % (auto) 0.0 VBG pH 7.53 H VBG pCO2 29 VBG pO2 59 VBG HCO3 24 VBG O2 Saturation 90.0 VBG Base Excess 2.5 Anion Gap 13 Estim Creat Clear Calc 50.9 Estimated GFR > 60 Random Glucose 149 H Calcium 8.6 D Ammonia 36 Assessment and Plan (1) Atrial fibrillation with RVR: Status: Acute Plan 88/m with history of complete heart block--has pace maker, history of paroxysmal atrial fibrillation (PAF) on xarelto, BPH, hypertension, congestive heart failure with preserved ejection fraction, gastroesophageal reflux disease, essential hypertension here with weakness, confusion, afib with RVR Fall likely d/t multifactorial --dehydration, afib with rvr -PT eval prior to dc Confusion, ct head ok, ammonia nl, abg ok, no uti , no fever., wbc normal , lfts, tsh normal. Because of hallucination asking for Psych input? demtia. Will also get Neuro consult and an EEG AFIB with IVR--has been intermittent RVR requiring cardizem drip. -starting amio 400 mg bid - continue core and verapamil -wean off cardizem drip -cardiology helping with med management -continue xarelto Transient Hypotension with diaphresis, likely vasal episode of orthostatic BP.. improved promptly without intervention, however was given NS 500 and albumin x 1. The episode was not due to sepsis Elevated troponin-likely from afib with rvr -repeat no significant shift BPH on Flomax COPD on fluticasone and vilanterol.? no exacerbation Gastroesophageal reflux disease :continue PPI Essential hypertension: stopping losartan in light of low bp, continue coreg and verapamil Congestive Heart failure with preserved ejection fraction. Continue Lasix DVT prophylaxis: Xarelto Full code will need pt eval before dc, plan discussed with at the bedside Quality Stroke Does the patient have a stroke diagnosis?: No VTE Prior VTE?: No VTE Risk Level:: Medical - moderate - high VTE Device Contraindication: Treatment Not Indicated VTE Drug Contraindication: N/A - Med Ordered
[2024-02-03 10:52] LABS: Alanine Aminotransferase 16 U/L (0-40); Albumin Level 2.9 g/dL (3.5-5.0); Alkaline Phosphatase 49 U/L (39-117); Aspartate Amino Transferase 21 U/L (5-37); Bilirubin Direct 0.1 mg/dL (0.0-0.5); Bilirubin Total 0.3 mg/dL (0.0-1.0); Total Protein 5.4 g/dL (6.5-8.0)
--- NOTE | 2024-02-03 10:56 | MHC.CM.PN ---
Per ROUNDS, Patient is not yet medically cleared for dc (Afib/med adjustments); home/resume services is the goal and CM will follow.
[2024-02-03 11:12] LABS: Thyroid Stimulating Hormone 1.67 uIU/mL (0.32-4.0)
--- NOTE | 2024-02-03 11:27 | PM.CNCAR ---
History of Present Illness History of Present Illness Date of Service: 02/03/24 Requesting physician: Flaco Woodall Consult reason: atrial fibrillation Chief complaint: Afib W/RVR Gen Weakness Dehydration Narrative: I was consulted to see Pal in cardiology consultation today for episodes of atrial fibrillation rapid ventricular response intermittently. Patient has prior history of paroxysmal atrial fibrillation. History mostly obtained from the chart. Patient was prior history of hypertrophic cardiomyopathy and is status post [employer] dual-chamber pacemaker for complete heart block. Patient was brought in to the hospital with confusion and altered mental status. No obvious metabolic cause has been found. Patient is still remains quite confused and was hallucinating telling me that he was seeing mouse running around the room. Patient has prior history of hypertensive urgency as well as hypertension. Brought to the hospital because of the altered mental status. Can not obtain further history from him as he is confused. Patient does not appear to be in any form of distress. There was no reported chest pain. Review of Systems Review of Systems: Yes Unobtainable due to mental status Neurologic: Reports confusion Psychiatric: Psychiatric: Reports confusion PMFSH Past Medical History Medical History Stasis leg ulcer Pacemaker History of TIA (transient ischemic attack) (~2021) History of COVID-19 Tension headache Meningioma Hypertrophic cardiomyopathy Hearing loss Diastolic CHF, 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 Frequency of micturition Chronic abdominal pain Peripheral neuropathy Constipation Diverticulitis Polyarthralgia Primary osteoarthritis of right knee Urinary incontinence History of CVA (cerebrovascular accident) (~2018) Protrusion of lumbar intervertebral disc History of rib fracture Peripheral vascular disease GERD (gastroesophageal reflux disease) Obstructive sleep apnea BPH (benign prostatic hyperplasia) Anxiety and depression Paroxysmal atrial fibrillation COPD (chronic obstructive pulmonary disease) Obesity (BMI 30-39.9) Hypercholesterolemia Hypertension Anemia Current use of anticoagulant therapy Family History Family History Father No problems noted. Mother Hx of type 1 diabetes mellitus Surgical History Surgical History History of pacemaker History of colonoscopy History of total right hip replacement (~2016) History of transurethral resection of prostate History of tonsillectomy History of left knee replacement (~2007) Social History Social History Household Members: Spouse Housing: House Housing Other:: Home for the elderly Do you presently have visiting nurse or other home services: Yes (1 to 3d/wk.) Alcohol intake: never Comment: odinter Patient Tobacco Use Status: Never used Tobacco Years Smoked: 30 yrs ago Smoked in Last 30 Days: No Second Hand Smoke Exposure: No Use of substances other than those prescribed or required for medical reasons: No Currently Displaying Signs/Symptoms of Drug Intoxication Withdrawal: No Have you been hit, kicked, punched, or otherwise hurt by someone within the past year? If so, by whom?: No Do you feel safe in your current relationship?: Yes Is there a partner from a previous relationship who is making you feel unsafe now?: No Are you made to feel afraid or neglected: No Advance Directives: Yes Advance Directives on File: Yes Advance Directives Date on File: 04/06/20 Do you have a plan to hurt others: No Plan Recently lost weight without trying: No Eating poorly because of decreased appetite: No Nutrition Risks: No Nutritional Risk Poor oral hygiene: No service: No Current occupational status: unemployed and retired Current occupation: Right Handed Meds Allergies Allergy/AdvReac Type Severity Reaction Status Date / Time ezetimibe [From Zetia] Allergy Severe Anaphylaxis Verified 02/01/24 11:36 dabigatran etexilate Allergy Intermediate ITCHING Verified 02/01/24 11:36 [From PRADAXA] JORGE L Inhibitors Allergy Mild UNKNOWN, Verified 02/01/24 11:36 [Jorge L Inhibitors] FOUND IN MEDICAL RECORD 04/[address] GIPSON apixaban [From ELIQUIS] Allergy Unknown Rash Verified 02/01/24 11:36 rosuvastatin [Crestor] Allergy Unknown myalgia Verified 02/01/24 11:36 Active Medications: Current Medications Acetaminophen (Acetaminophen 325 Mg Tablet) 650 mg PO Q6H PRN PRN Reason: Pain, Mild (Pain Scale 1-3), fever or headache Last Admin: 02/03/24 09:21 Dose: 650 mg Amiodarone HCl (Amiodarone Hcl 200 Mg Tablet) 400 mg PO BID [facility] Aspirin (Aspirin Enteric Coated 81 Mg Tablet.) 81 mg PO DAILY [facility] Last Admin: 02/03/24 09:25 Dose: 81 mg Atorvastatin Calcium (Atorvastatin Calcium 80 Mg Tablet) 80 mg PO BEDTIME [facility] Last Admin: 02/02/24 19:52 Dose: 80 mg Calcium Carbonate (Calcium Carbonate 750 Mg Tab.Chew) 750 mg PO Q4H PRN PRN Reason: Heartburn Carvedilol (Carvedilol 25 Mg Tablet) 25 mg PO BID [facility]; Protocol Last Admin: 02/03/24 09:26 Dose: 25 mg Docusate Sodium (Docusate Sodium 100 Mg Capsule) 100 mg PO BID [facility] Last Admin: 02/03/24 09:25 Dose: 100 mg Duloxetine HCl (Duloxetine Hcl 20 Mg Capsule.Dr) 20 mg PO DAILY [facility] Last Admin: 02/03/24 09:21 Dose: 20 mg Ferrous Sulfate (Ferrous Sulfate 324 Mg Tablet.Dr) 324 mg PO DAILY [facility] Last Admin: 02/03/24 09:26 Dose: 324 mg Fluticasone Propionate (Fluticasone Propionate Nasal 16 Gm [place]) 1 spray NOSTRIL-B DAILY PRN PRN Reason: Allergy Symptoms Fluticasone/Vilanterol (Fluticasone/Vilanterol 200/25 Blst.W.Dev) 1 puff INHALE DAILY [facility] Last Admin: 02/03/24 07:43 Dose: 1 puff Furosemide (Furosemide 40 Mg Tablet) 40 mg PO DAILY [facility]; Protocol Last Admin: 02/03/24 09:26 Dose: 40 mg Gabapentin (Gabapentin 100 Mg Capsule) 100 mg PO BID [facility] Last Admin: 02/03/24 09:26 Dose: 100 mg Diltiazem HCl 125 mg/ Sodium (Chloride) 125 mls @ 0 mls/hr IVCONT .Q0M [facility]; Protocol Last Titration: 02/03/24 10:24 Dose: 0 mg/hr, 0 mls/hr Ketorolac Tromethamine (Ketorolac Tromethamine 0.5% Op 5 Ml Drops) 1 drop EYE-BOTH BID [facility] Last Admin: 02/03/24 09:27 Dose: 1 drop Losartan Potassium (Losartan Potassium 50 Mg Tablet) 50 mg PO DAILY [facility]; Protocol Last Admin: 02/03/24 09:19 Dose: 50 mg Losartan Potassium (Losartan Potassium 25 Mg Tablet) 25 mg PO DAILY [facility]; Protocol Last Admin: 02/03/24 09:20 Dose: Not Given Magnesium Hydroxide (Milk Of Magnesia 30 Ml Oral.Susp) 30 ml PO DAILY PRN PRN Reason: Constipation Melatonin (Melatonin 3 Mg Tablet) 6 mg PO BEDTIME PRN PRN Reason: Insomnia Methylprednisolone (Methylprednisolone 4 Mg Tablet) 2 mg PO DAILY@1200 [facility] Last Admin: 02/02/24 11:35 Dose: 2 mg Methylprednisolone (Methylprednisolone 4 Mg Tablet) 4 mg PO BIDWM [facility] Last Admin: 02/03/24 09:26 Dose: 4 mg Multivitamins/Vitamin C (Multivitamin Tablet) 1 tab PO DAILY [facility] Last Admin: 02/03/24 09:27 Dose: 1 tab Omeprazole (Omeprazole 20 Mg Capsule.Dr) 20 mg PO DAILY@0630 [facility] Last Admin: 02/03/24 06:14 Dose: 20 mg Ondansetron HCl (Ondansetron Hcl 4 Mg/2 Ml Vial) 4 mg IVPUSH Q8H PRN PRN Reason: Nausea and Vomiting Polyethylene Glycol (Polyethylene Glycol 3350 17 Gm Powd.Pack) 17 gm PO DAILY PRN PRN Reason: Constipation Potassium Chloride (Potassium Chloride Er 10 Meq Tablet.Er) 10 meq PO BID [facility] Last Admin: 02/03/24 09:25 Dose: 10 meq Rivaroxaban (Rivaroxaban 20 Mg Tablet) 20 mg PO DAILY@1700 [facility] Last Admin: 02/02/24 16:43 Dose: 20 mg Senna (Sennosides 8.6 Mg Tablet) 8.6 mg PO BEDTIME [facility] Last Admin: 02/02/24 19:52 Dose: 8.6 mg Sodium Chloride (0.9 % Sodium Chloride Flush 3 Ml Syringe) 3 ml IVFLUSH QSHIFT [facility] Last Admin: 02/03/24 09:27 Dose: 3 ml Sucralfate (Sucralfate Oral Suspension 1 Gm/10 Ml Oral.Susp) 1 gm PO BEDTIME [facility] Last Admin: 02/02/24 19:53 Dose: 1 gm Tamsulosin HCl (Tamsulosin Hcl 0.4 Mg Capsule) 0.4 mg PO DAILY@1730 [facility] Last Admin: 02/02/24 16:42 Dose: 0.4 mg Verapamil HCl (Verapamil Hcl Sr 120 Mg Tablet.Er) 120 mg PO DAILY [facility]; Protocol Last Admin: 02/03/24 09:27 Dose: Not Given Home Medications ?Medication ?Instructions ?Recorded ?Confirmed ?Last Taken ?Type atorvastatin 80 mg tablet 80 mg PO BEDTIME 06/03/20 02/01/24 01/31/24 History carvedilol 25 mg tablet 25 mg PO BID 12/04/20 02/01/24 02/01/24 History potassium chloride 10 mEq 1 tab PO BID 11/14/21 02/01/24 02/01/24 History tablet,extended release fluticasone furoate 200 1 inh inhalation DAILY 12/06/22 02/01/24 02/01/24 History mcg-vilanterol 25 mcg/dose inhalation powder (Breo Ellipta) ferrous sulfate 325 mg (65 mg 325 mg PO DAILY 12/07/22 02/01/24 02/01/24 History iron) tablet (FeroSul) fluticasone propionate 50 1 spray intranasal DAILY PRN 12/07/22 02/01/24 Unknown History mcg/actuation nasal Allergy Symptoms spray,suspension losartan 50 mg tablet 50 mg PO DAILY 12/07/22 02/01/24 02/01/24 History aspirin 81 mg tablet,delayed 81 mg PO DAILY 08/17/23 02/01/24 02/01/24 History release ketorolac 0.5 % eye drops 1 drp ophthalmic (eye) BID 08/17/23 02/01/24 02/01/24 History losartan 25 mg tablet 25 mg PO DAILY 08/17/23 02/01/24 02/01/24 History verapamil 120 mg tablet,extended 120 mg PO DAILY 08/17/23 02/01/24 02/01/24 History release acetaminophen 650 mg 1,300 mg PO Q8H PRN Pain 02/01/24 02/01/24 Unknown History tablet,extended release (Tylenol Arthritis Pain) duloxetine 20 mg capsule,delayed 20 mg PO DAILY 02/01/24 02/01/24 02/01/24 History release gabapentin 100 mg capsule 100 mg PO BID 02/01/24 02/01/24 02/01/24 History methylprednisolone 4 mg tablet 2 mg PO DAILY@1200 02/01/24 02/01/24 01/31/24 History methylprednisolone 4 mg tablet 4 mg PO BID 02/01/24 02/01/24 01/31/24 History dbdcyvqp-pbz-qnrol acid 0.4 1 tab PO DAILY 02/01/24 02/01/24 02/01/24 History mg-lycopene 300 mcg-lutein 250 mcg tablet (CertaVite Senior) rivaroxaban 20 mg tablet (Xarelto) 20 mg PO BEDTIME 02/01/24 02/01/24 02/01/24 History Physical Exam Vital Signs: Vital Signs: Last Vital Signs Temp 97.1 F 02/03/24 07:52 Pulse 88 02/03/24 07:52 Resp 20 02/03/24 07:52 BP 118/59 L 02/03/24 07:52 Pulse Ox 97 02/03/24 07:52 O2 Del Method Room Air 02/03/24 07:52 BMI result Body Mass Index 30.9 Const: General: alert, awake and confusion Nutritional Appearance: obese Orientation/consciousness: confusion HEENT: Head: Yes normocephalic and Yes atraumatic Neck: Neck: Yes trachea midline, Yes supple and Yes no JVD Resp: Effort & Inspection: decreased respiratory effort Auscultation: other (Coarse breath sounds) Cardio: Jugular venous distension: no JVD Rate: regular rate Rhythm: regular rhythm Heart sounds: S1 normal heart sound present, S2 normal heart sound present, no click, no gallops, no murmurs and no rubs GI: Inspection: Yes obesity Auscultation: normal bowel sounds Skin: General skin exam: no rashes or lesions noted Neuro: General: moves all extremities and confusion Extrem: General: Yes no clubbing, cyanosis or edema Objective Labs and Meds 02/03/24 08:03 02/03/24 08:03 Lab results: Laboratory Results - last 24 hr 02/02/24 02/02/24 02/03/24 12:37 12:40 08:03 WBC 8.2 RBC 4.08 L Hgb 10.6 L Hct 34.2 L MCV 83.8 MCH 26.0 L MCHC 31.0 RDW 15.4 Plt Count 202 MPV 9.4 Absolute Nucleated RBC 0.000 Nucleated RBC % (auto) 0.0 VBG pH 7.53 H VBG pCO2 29 VBG pO2 59 VBG HCO3 24 VBG O2 Saturation 90.0 VBG Base Excess 2.5 Sodium 145 Potassium 3.5 Chloride 110 H Carbon Dioxide 26 Anion Gap 13 BUN 34 H Creatinine 1.02 Estim Creat Clear Calc 50.9 Estimated GFR > 60 Random Glucose 149 H Calcium 8.6 D Total Bilirubin 0.3 Direct Bilirubin 0.1 AST 21 ALT 16 Alkaline Phosphatase 49 Ammonia 36 Total Protein 5.4 L Albumin 2.9 L TSH 1.67 Assessment and Plan (1) Atrial fibrillation with RVR: Status: Acute Intermittent episodes of atrial fibrillation this elderly gentleman which is not unusual in patient was hypertrophic cardiomyopathy with structural changes and left atrial enlargement. I do not think this is a cause of his altered mental status at this point time. He seems to be in sinus rhythm currently and still having altered mental status and hallucinations. Need to focus on the underlying cause. Could be related to his underlying dementia which is under recognize and being hospitalized. At this point time given his recurrent episodes of atrial fibrillation risk for recurrent atrial fibrillation future I think amiodarone 400 mg b.i.d. loading for 2 weeks would help with suppression of atrial fibrillation hospitalization related to atrial fibrillation. Continue with full oral anticoagulation, currently on Xarelto. EKG once amiodarone loading is started. Will set up for follow-up as outpatient. (2) Pacemaker: Status: Acute Cardiac pacemaker in-situ for complete heart block. Currently pacemaker is working well with ventricular pacing 100% of the time. Will follow-up remotely as outpatient. (3) Hypertrophic cardiomyopathy: Status: Acute Prior history of hypertrophic cardiomyopathy causing medication use of verapamil and metoprolol. I would discontinue losartan therapy at this could potentiate obstructive physiology although clinically he has currently no obstructive physiology and by last echocardiogram did not have any obstructive physiology. However I see highly variable blood pressure at this point time. Monitor blood pressure closely and continue metoprolol and verapamil on hold on losartan therapy. Adequate hydration needs to be maintained. If blood pressure starts rising can then restart losartan therapy. Avoid diuretic therapy. Will sign of the case. Thank you for allowing me to partake in his care Procedures Date of Service Date of Service: 02/03/24
[2024-02-03] MEDS: methylPREDNISolone 4 MG TABLET 2 MG PO (11:34)
[2024-02-03] MEDS: Amiodarone HCL 200 MG TABLET 400 MG PO ×2 (11:34→20:11)
[2024-02-03] MEDS: Albumin Human 25 % 100 ML IV (12:38)
[2024-02-03] MEDS: 0.9 % Sodium Chloride 1,000 ML 500 ML IVCONT (12:41)
[2024-02-03 12:53] LABS: Glucose, Whole Blood 163 mg/dL (60-115)
[2024-02-03 14:20] LABS: Lactic Acid 2.1 mmol/L (0.5-2.0)
--- NOTE | 2024-02-03 15:08 | PM.NEUROCN ---
History of Present Illness Data of Consult Service Date: 02/03/24 Primary Care Provider: Unknown Physician HPI Reason for consult: Confusion, encephalopathy This is an 88-year-old male with history of paroxysmal atrial fibrillation on anticoagulation, BPH, essential hypertension, congestive heart failure with preserved ejection fraction, gastroesophageal reflux disease, essential hypertension here from home with report of patient having been confused and may have fallen as he was found leaning aginst his bed with presume head strike. Family have been reporting increasing confusion and trouble voiding. Work up troponin I level of [address] head and neck no acute finding. While in the ED went into AFIB with RVR and required iv cardizem.He is now alert and oriented and cooperative and has no complaints PMFSH Past Medical History Medical History Stasis leg ulcer Pacemaker History of TIA (transient ischemic attack) (~2021) History of COVID-19 Tension headache Meningioma Hypertrophic cardiomyopathy Hearing loss Diastolic CHF, 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 Frequency of micturition Chronic abdominal pain Peripheral neuropathy Constipation Diverticulitis Polyarthralgia Primary osteoarthritis of right knee Urinary incontinence History of CVA (cerebrovascular accident) (~2018) Protrusion of lumbar intervertebral disc History of rib fracture Peripheral vascular disease GERD (gastroesophageal reflux disease) Obstructive sleep apnea BPH (benign prostatic hyperplasia) Anxiety and depression Paroxysmal atrial fibrillation COPD (chronic obstructive pulmonary disease) Obesity (BMI 30-39.9) Hypercholesterolemia Hypertension Anemia Current use of anticoagulant therapy Family History Family History Father No problems noted. 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 If so, by whom?: No Do you feel safe in your current relationship?: Yes Is there a partner from a previous relationship who is making you feel unsafe now?: No Are you made to feel afraid or neglected: No Advance Directives: Yes Advance Directives on File: Yes Advance Directives Date on File: 04/06/20 Do you have a plan to hurt others: No Plan Recently lost weight without trying: No Eating poorly because of decreased appetite: No Nutrition Risks: No Nutritional Risk Poor oral hygiene: No service: No Current occupational status: unemployed and retired Current occupation: Right Handed Meds Allergies Allergy/AdvReac Type Severity Reaction Status Date / Time ezetimibe [From Zetia] Allergy Severe Anaphylaxis Verified 02/01/24 11:36 dabigatran etexilate Allergy Intermediate ITCHING Verified 02/01/24 11:36 [From PRADAXA] JORGE L Inhibitors Allergy Mild UNKNOWN, Verified 02/01/24 11:36 [Jorge L Inhibitors] FOUND IN MEDICAL RECORD 04/08 BY PCP PO apixaban [From ELIQUIS] Allergy Unknown Rash Verified 02/01/24 11:36 rosuvastatin [Crestor] Allergy Unknown myalgia Verified 02/01/24 11:36 Active Medications: Current Medications Acetaminophen (Acetaminophen 325 Mg Tablet) 650 mg PO Q6H PRN PRN Reason: Pain, Mild (Pain Scale 1-3), fever or headache Last Admin: 02/03/24 09:21 Dose: 650 mg Amiodarone HCl (Amiodarone Hcl 200 Mg Tablet) 400 mg PO BID [facility] Last Admin: 02/03/24 11:34 Dose: 400 mg Aspirin (Aspirin Enteric Coated 81 Mg Tablet.) 81 mg PO DAILY [facility] Last Admin: 02/03/24 09:25 Dose: 81 mg Atorvastatin Calcium (Atorvastatin Calcium 80 Mg Tablet) 80 mg PO BEDTIME [facility] Last Admin: 02/02/24 19:52 Dose: 80 mg Calcium Carbonate (Calcium Carbonate 750 Mg Tab.Chew) 750 mg PO Q4H PRN PRN Reason: Heartburn Carvedilol (Carvedilol 25 Mg Tablet) 25 mg PO BID [facility]; Protocol Last Admin: 02/03/24 09:26 Dose: 25 mg Docusate Sodium (Docusate Sodium 100 Mg Capsule) 100 mg PO BID [facility] Last Admin: 02/03/24 09:25 Dose: 100 mg Duloxetine HCl (Duloxetine Hcl 20 Mg Capsule.) 20 mg PO DAILY [facility] Last Admin: 02/03/24 09:21 Dose: 20 mg Ferrous Sulfate (Ferrous Sulfate 324 Mg Tablet.) 324 mg PO DAILY [facility] Last Admin: 02/03/24 09:26 Dose: 324 mg Fluticasone Propionate (Fluticasone Propionate Nasal 16 Gm [place]) 1 spray NOSTRIL-B DAILY PRN PRN Reason: Allergy Symptoms Fluticasone/Vilanterol (Fluticasone/Vilanterol 200/25 Blst.W.Dev) 1 puff INHALE DAILY [facility] Last Admin: 02/03/24 07:43 Dose: 1 puff Furosemide (Furosemide 40 Mg Tablet) 40 mg PO DAILY [facility]; Protocol Last Admin: 02/03/24 09:26 Dose: 40 mg Gabapentin (Gabapentin 100 Mg Capsule) 100 mg PO BID [facility] Last Admin: 02/03/24 09:26 Dose: 100 mg Diltiazem HCl 125 mg/ Sodium (Chloride) 125 mls @ 0 mls/hr IVCONT .Q0M [facility]; Protocol Last Titration: 02/03/24 10:24 Dose: 0 mg/hr, 0 mls/hr Lactated Ringer's (Lr) 1,000 mls @ 80 mls/hr IVCONT .[id number] [facility] Ketorolac Tromethamine (Ketorolac Tromethamine 0.5% Op 5 Ml Drops) 1 drop EYE-BOTH BID [facility] Last Admin: 02/03/24 09:27 Dose: 1 drop Magnesium Hydroxide (Milk Of Magnesia 30 Ml Oral.Susp) 30 ml PO DAILY PRN PRN Reason: Constipation Melatonin (Melatonin 3 Mg Tablet) 6 mg PO BEDTIME PRN PRN Reason: Insomnia Methylprednisolone (Methylprednisolone 4 Mg Tablet) 2 mg PO DAILY@1200 [facility] Last Admin: 02/03/24 11:34 Dose: 2 mg Methylprednisolone (Methylprednisolone 4 Mg Tablet) 4 mg PO BIDWM [facility] Last Admin: 02/03/24 09:26 Dose: 4 mg Multivitamins/Vitamin C (Multivitamin Tablet) 1 tab PO DAILY [facility] Last Admin: 02/03/24 09:27 Dose: 1 tab Omeprazole (Omeprazole 20 Mg Capsule.Dr) 20 mg PO DAILY@0630 [facility] Last Admin: 02/03/24 06:14 Dose: 20 mg Ondansetron HCl (Ondansetron Hcl 4 Mg/2 Ml Vial) 4 mg IVPUSH Q8H PRN PRN Reason: Nausea and Vomiting Polyethylene Glycol (Polyethylene Glycol 3350 17 Gm Powd.Pack) 17 gm PO DAILY PRN PRN Reason: Constipation Potassium Chloride (Potassium Chloride Er 10 Meq Tablet.Er) 10 meq PO BID [facility] Last Admin: 02/03/24 09:25 Dose: 10 meq Rivaroxaban (Rivaroxaban 20 Mg Tablet) 20 mg PO DAILY@1700 [facility] Last Admin: 02/02/24 16:43 Dose: 20 mg Senna (Sennosides 8.6 Mg Tablet) 8.6 mg PO BEDTIME [facility] Last Admin: 02/02/24 19:52 Dose: 8.6 mg Sodium Chloride (0.9 % Sodium Chloride Flush 3 Ml Syringe) 3 ml IVFLUSH QSHIFT [facility] Last Admin: 02/03/24 09:27 Dose: 3 ml Sucralfate (Sucralfate Oral Suspension 1 Gm/10 Ml Oral.Susp) 1 gm PO BEDTIME [facility] Last Admin: 02/02/24 19:53 Dose: 1 gm Tamsulosin HCl (Tamsulosin Hcl 0.4 Mg Capsule) 0.4 mg PO DAILY@1730 [facility] Last Admin: 02/02/24 16:42 Dose: 0.4 mg Verapamil HCl (Verapamil Hcl Sr 120 Mg Tablet.Er) 120 mg PO DAILY [facility]; Protocol Last Admin: 02/03/24 09:27 Dose: Not Given Home Medications ?Medication ?Instructions ?Recorded ?Confirmed ?Last Taken ?Type atorvastatin 80 mg tablet 80 mg PO BEDTIME 06/03/20 02/01/24 01/31/24 History carvedilol 25 mg tablet 25 mg PO BID 12/04/20 02/01/24 02/01/24 History potassium chloride 10 mEq 1 tab PO BID 11/14/21 02/01/24 02/01/24 History tablet,extended release fluticasone furoate 200 1 inh inhalation DAILY 12/06/22 02/01/24 02/01/24 History mcg-vilanterol 25 mcg/dose inhalation powder (Breo Ellipta) ferrous sulfate 325 mg (65 mg 325 mg PO DAILY 12/07/22 02/01/24 02/01/24 History iron) tablet (FeroSul) fluticasone propionate 50 1 spray intranasal DAILY PRN 12/07/22 02/01/24 Unknown History mcg/actuation nasal Allergy Symptoms spray,suspension losartan 50 mg tablet 50 mg PO DAILY 12/07/22 02/01/24 02/01/24 History aspirin 81 mg tablet,delayed 81 mg PO DAILY 08/17/23 02/01/24 02/01/24 History release ketorolac 0.5 % eye drops 1 drp ophthalmic (eye) BID 08/17/23 02/01/24 02/01/24 History losartan 25 mg tablet 25 mg PO DAILY 08/17/23 02/01/24 02/01/24 History verapamil 120 mg tablet,extended 120 mg PO DAILY 08/17/23 02/01/24 02/01/24 History release acetaminophen 650 mg 1,300 mg PO Q8H PRN Pain 02/01/24 02/01/24 Unknown History tablet,extended release (Tylenol Arthritis Pain) duloxetine 20 mg capsule,delayed 20 mg PO DAILY 02/01/24 02/01/24 02/01/24 History release gabapentin 100 mg capsule 100 mg PO BID 02/01/24 02/01/24 02/01/24 History methylprednisolone 4 mg tablet 2 mg PO DAILY@1200 02/01/24 02/01/24 01/31/24 History methylprednisolone 4 mg tablet 4 mg PO BID 02/01/24 02/01/24 01/31/24 History qocwhtfl-civ-lpkjl acid 0.4 1 tab PO DAILY 02/01/24 02/01/24 02/01/24 History mg-lycopene 300 mcg-lutein 250 mcg tablet (CertaVite Senior) rivaroxaban 20 mg tablet (Xarelto) 20 mg PO BEDTIME 02/01/24 02/01/24 02/01/24 History Physical Exam Vital Signs: Vital Signs: Last Vital Signs Temp 97.1 F 02/03/24 07:52 Pulse 83 02/03/24 12:00 Resp 12 02/03/24 12:00 BP 110/60 02/03/24 13:15 Pulse Ox 98 02/03/24 12:00 O2 Del Method Room Air 02/03/24 12:00 BMI result Body Mass Index 30.9 Neuro: Other: He is alert, pleasant and cooperative. He is oriented to person, place, month and year but did not know the exact date. He has no complaints. His visual leung are full to confrontation. There is no facial asymmetry or weakness. Tongue protrudes in the midline. There is no drift or asterixis. Muscle tone and strength are normal. Reflexes hypoactive. Plantar response are flexor. Neck is supple Results Labs 02/03/24 08:03 02/03/24 08:03 Labs: Short CBC 02/03/24 Range/Units 08:03 WBC 8.2 (4.8-10.8) X10*3/uL Hgb 10.6 L (14.0-18.0) g/dl Hct 34.2 L (42.0-52.0) % Plt Count 202 (160-400) X10*3/uL BMP 02/03/24 08:03 Sodium 145 Potassium 3.5 Chloride 110 H Carbon Dioxide 26 BUN 34 H Creatinine 1.02 Calcium 8.6 D Liver Function 02/03/24 Range/Units 08:03 Total Bilirubin 0.3 (0.0-1.0) mg/dL Direct Bilirubin 0.1 (0.0-0.5) mg/dL AST 21 (5-37) U/L ALT 16 (0-40) U/L Alkaline Phosphatase 49 (39-117) U/L Albumin 2.9 L (3.5-5.0) g/dL Assessment and Plan (1) Head injury: Qualifiers: Encounter type: initial encounter Qualified Code(s): S09.90XA - Unspecified injury of head, initial encounter Status: Acute And possible fall but no evidence of any significant head trauma. CT scan negative. (2) Acute hypernatremia: Status: Acute Encephalopathy, probably multifactorial related to dehydration and hypernatremia which appears to have resolved at this time. No further neurological workup is indicated unless something changes. Procedures Date of Service Date of Service: 02/03/24
--- OUTSIDE RECORDS SUMMARY | 2024-02-03 15:11 | XMS_ITS | Continuity of Care Document ---
Author Organization [facility] Address [address] [address]- Care Team Providers Care Implementation Analyst Name Role Phone Chuy ARMENTA, Crystal Cortes Primary Care Physician Encounter [facility] [place] Date(s): 01/26/24 - 02/02/24 [facility] [id number] [address]- Attending Physician: Shirley Mancilla Admitting Physician: Shirley Mancilla Referring Physician: Shirley Mancilla Encounter Type: One Time OP Allergies, Adverse Reactions, Alerts Substance Criticality Severity Reaction Reaction Severity Status Lipitor Body Aches Active [...] Dose 81 mg oral delayed release tablet 1 tablet = 81 mg, By Mouth, Daily, 0 Refills, Maintenance, 03/16/23 8:25:00 PM EST, Partial fill upon patient request if the prescription is for a schedule II opioid drug. Start Date: 03/16/23 Status: Ordered Repeat number: 1 atorvastatin 80 mg oral tablet 1 tablet = 80 mg, By Mouth, Daily, # 30 tablet, 11 Refills, Maintenance, Tablet, Route to Pharmacy Electronically, [id number], [id number] Start Date: 12/05/16 Stop Date: 11/30/17 Status: Ordered Quantity: 30.0 Unit: tablet Repeat number: 12 Breo Ellipta 200 mcg-25 mcg/inh inhalation powder 1 puffs, Inhalation, Daily, 0 Refills, Maintenance, 11/17/19 12:32:00 PM EDT, Powder Start Date: 11/17/19 Status: Ordered Repeat number: 1 Carafate 1 gm/10 ml oral suspension 10 mL = 1 Gm, By Mouth, Daily at bedtime, Maintenance, 10/08/23 3:39:00 PM EDT, Partial fill upon patient request if the prescription is for a schedule II opioid drug. Start Date: 10/08/23 Status: Ordered Repeat number: 1 Cerovite Senior Therapeutic Multiple Vitamins with Minerals oral tablet 1 tablet, By Mouth, Daily, # 30 tablet, 5 Refills, Maintenance, 07/02/17 8:44:46 PM EDT, Tablet, [facility], 1 tablet By Mouth Daily,x30 days Start Date: 07/02/17 Stop Date: 12/29/17 Status: Ordered Quantity: 30.0 Unit: tablet Repeat number: 6 Colace sodium 100 mg oral capsule 100 mg, 1, capsule, By Mouth, 2 times a day, Maintenance, 10/08/23 3:39:00 PM EDT, Partial fill uponpatient request if the prescription is for a schedule II opioid drug. Start Date: 10/08/23 Status: Ordered Repeat number: 1 Coreg 25 mg oral tablet 25 mg, By Mouth, 2 times a day, # 60 tablet, Refills 11, Tot. Refills 11, Maintenance, 12/05/16 9:23:00 AM EDT, Route to Pharmacy Electronically, [id number] Start Date: 12/05/16 Stop Date: 11/30/17 Status: Ordered Quantity: 60.0 Unit: tablet Repeat number: 12 FeroSul 325 mg oral tablet 1 tablet = 325 mg, By Mouth, Every Thursday, Thursday and Thursday, 0 Refills, Maintenance, 03/16/23 9:29:00 PM EST, Partial fill upon patient request if the prescription is for a schedule II opioid drug. Start Date: 03/16/23 Status: Ordered Repeat number: 1 ketorolac 0.5% ophthalmic solution 1 drops, Eyes, Both, 2 times a day, Maintenance, 10/08/23 3:39:00 PM EDT, Partial fill upon patient request if the prescription is for a schedule II opioid drug. Start Date: 10/08/23 Status: Ordered Repeat number: 1 levocetirizine = 5 mg, By Mouth, Daily before dinner, 0 Refills, Maintenance, 04/20/23 9:41:00 AM EST, Partial fillupon patient request if the prescription is for a schedule II opioid drug. Start Date: 04/20/23 Status: Ordered Repeat number: 1 losartan 25 mg oral tablet 1 tablet = 25 mg, By Mouth, Daily in AM, 0 Refills, Maintenance, 03/16/23 9:28:00 PM EST, Partial fill upon patient request if the prescription is for a schedule II opioid drug. Start Date: 03/16/23 Status: Ordered Repeat number: 1 losartan 50 mg oral tablet 50 mg, 1, tablet, By Mouth, Daily at bedtime, Maintenance, 10/08/23 3:37:00 PM EDT, Partial fill upon patient request if the prescription is for a schedule II opioid drug. Start Date: 10/08/23 Status: Ordered Repeat number: 1 pantoprazole 40 mg oral delayed release tablet 1 tablet = 40 mg, By Mouth, Daily, # 30 tablet, 0 Refills, Maintenance, 11/17/19 12:47:00 PM EDT, ECTablet Start Date: 11/17/19 Status: Ordered Quantity: 30.0 Unit: tablet Repeat number: 1 Potassium Chloride (Czs-Kjoj-Rse 10) 10 mEq oral tablet, extended release 1 tablet = 10 mEq, By Mouth, 2 times a day with meals, 0 Refills, Maintenance, 03/16/23 9:09:00 PM EST, Partial fill upon patient request if the prescription is for a schedule II opioid drug. Start Date: 03/16/23 Status: Ordered Repeat number: 1 Senna 8.6 mg oral tablet 8.6 mg, 1, tablet, By Mouth, Daily, Maintenance, 10/08/23 3:39:00 PM EDT, Partial fill upon patient request if the prescription is for a schedule II opioid drug. Start Date: 10/08/23 Status: Ordered Repeat number: 1 tamsulosin 0.4 mg oral capsule 0.4 mg, 1, capsule, By Mouth, Daily, Refills 0, Maintenance, 09/10/16 3:59:16 PM EDT Start Date: 09/10/16 Status: Ordered Repeat number: 1 verapamil 120 mg oral tablet, extended release 1 tablet = 120 mg, By Mouth, Daily, Maintenance, 10/08/23 3:38:00 PM EDT, ER Tablet, Partial fill upon patient request if the prescription is for a schedule II opioid drug. Start Date: 10/08/23 Status: Ordered Repeat number: 1 Xarelto 20 mg oral tablet 1 tablet = 20 mg, By Mouth, Daily at bedtime, 0 Refills, Maintenance, 10/08/20 11:21:00 AM EDT, Partial fill upon patient request if the prescription is for a schedule II opioid drug. Start Date: 10/08/20 Status: Ordered Repeat number: 1 Problem List Condition Confirmation Course Effective Dates Status H ealth Status Informant Cutaneous abscess of left lower extremity Confirmed Active BPH (benign prostatic hyperplasia) Confirmed Active COPD without exacerbation Confirmed Active Chronic pain Confirmed Active CAD in [place] artery Confirmed Active De Quervain's tenosynovitis Confirmed [...] years ago; entered on: 01/13/22 Sex Male Sex Representation Male (finding) Patient Care team information Care Team Personnel Name: Raquel Carlos RN Position: [facility] SN RN Member Role: Primary Care Nurse Name: Crystal Vera MD Position: [facility] Physician - Primary Care Member Role: PCP [address] [place] [address]- Telecom: Name: Sofiya Ann RN Position: [facility] RN Member Role: Primary Care Nurse Name: Christelle Chamberlain RN Position: [facility] RN Member Role: Primary Care Nurse Name: Arti Nava RN Position: [facility] RN Member Role: Primary Care Nurse Name: Kimmie Montague RN Position: [facility] RN Member Role: Primary Care Nurse Name: Irene Schwarz RN Position: [facility] RN Member Role: Primary Care Nurse Name: Karmen Fajardo RN Position: [facility] SN RN Member Role: Primary Care Nurse Care Team Related Persons Name: AGGIE TAYLOR Insurance Providers Guarantor name: MIKE TAYLOR Health Plan Information #: 1 Payer: NA Member Number: [id number] Policy Number: NA [place] [facility] [place] #: 2 Payer: NA Member Number: [id number] Policy Number: NA Group Number: NA
--- NOTE | 2024-02-03 15:25 | P.CNPS_ITS ---
History of Present Illness Date of Service: 02/03/2024 Chief Complaint: Afib W/RVR Gen Weakness Dehydration Requesting physician: Flaco Back Discussed with referring provider: Yes Sources of Information: patient interviewed, chart reviewed and crisis/core team assessment reviewed HPI Narrative: Mr. Da Silva is a 88 year-old male who was brought to [facility] [place] [facility] on 02/01/2024 due to unwitnessed fall, increase confusion, difficulty urinating. Found to be in afib with RVR. He has been on cardizem drip. Other pertinent labs include: cbc with elevated WBC (11.3), trending down and also pt on terminal block assembler therapy of medrol (note that it was rx while he was in the ED for back pain, but apparently had been prescribed for some months for meningioma?- either way elevation in WBC may be product of glucocorticoid therapy rather than infection). He also has chronic normocytic anemia on iron in the past. CMP showed elevated BUN 26, with normal Cr 0.89, slightly elevated hypernatremia 146 (probably as result of dehydration and no significant clinical finding/or contributory to his overall presentation). LFTs are wnl. ammonia is also normal. UA without signs of infection. Head CT without acute findings- but with chronic microvascular changes and atrophy. Note also hx of meningioma. Pt seen in his room. He was interview in [place]. His thought process marked with derailment and disorganized. He tells this fiction writer we are in [place], but when trying to assess his orientation to place and situation, he tells this fiction writer he is at home. When asked about month, he states October. When asked about the year he states . He is not sure why he is here. When asked again questions about what is going on presently with him in terms of his medical conditions, pt states I don't know, I get confused sometimes. His speech is mostly unintelligible, no substance in overall sentences. Collateral information was gathered from his and HCP, [place] who reports that day he was brought to the hospital, he was asked questions and would answer with unrelated information and not making much sense. [facility] Medical History Stasis leg ulcer Pacemaker History of TIA (transient ischemic attack) (~2021) History of COVID-19 Tension headache Meningioma Hypertrophic cardiomyopathy Hearing loss Diastolic CHF, 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 Frequency of micturition Chronic abdominal pain Peripheral neuropathy Constipation Diverticulitis Polyarthralgia Primary osteoarthritis of right knee Urinary incontinence History of CVA (cerebrovascular accident) (~2018) Protrusion of lumbar intervertebral disc History of rib fracture Peripheral vascular disease GERD (gastroesophageal reflux disease) Obstructive sleep apnea BPH (benign prostatic hyperplasia) Anxiety and depression Paroxysmal atrial fibrillation COPD (chronic obstructive pulmonary disease) Obesity (BMI 30-39.9) Hypercholesterolemia Hypertension Anemia Current use of anticoagulant therapy Surgical History History of pacemaker History of colonoscopy History of total right hip replacement (~2016) History of transurethral resection of prostate History of tonsillectomy History of left knee replacement (~2007) Diagnostics Vital Signs (24Hr): Vital Signs - 24 hr 02/02/24 15:32 02/02/24 19:16 02/03/24 00:00 Temperature 97.8 F 97.8 F 97.5 F Pulse Rate 80 94 81 Respiratory Rate 18 18 20 Blood Pressure 109/56 L 117/72 158/73 H Pulse Oximetry 97 96 93 Oxygen Delivery Method Room Air Room Air Room Air 02/03/24 04:00 02/03/24 07:45 02/03/24 07:52 Temperature 98.2 F 97.1 F Pulse Rate 70 101 H 88 Respiratory Rate 20 19 20 Blood Pressure 153/69 H 118/59 L Pulse Oximetry 96 97 Oxygen Delivery Method Room Air Room Air 02/03/24 12:00 02/03/24 13:15 Temperature Pulse Rate 83 Respiratory Rate 12 Blood Pressure 70/47 L 110/60 Pulse Oximetry 98 Oxygen Delivery Method Room Air BMI result Body Mass Index 30.9 Labs 02/03/24 08:03 02/03/24 08:03 Labs: Laboratory Results - last 48 hr 02/01/24 02/02/24 02/02/24 17:34 09:58 12:37 WBC 10.9 H RBC 4.47 L Hgb 11.6 L Hct 38.3 L MCV 85.7 MCH 26.0 L MCHC 30.3 L RDW 15.3 Plt Count 210 MPV 9.5 Absolute Nucleated RBC 0.000 Nucleated RBC % (auto) 0.0 VBG pH VBG pCO2 VBG pO2 VBG HCO3 VBG O2 Saturation VBG Base Excess Sodium 145 Potassium 3.5 Chloride 106 Carbon Dioxide 24 Anion Gap 19 BUN 31 H Creatinine 1.26 Estim Creat Clear Calc 41.2 Estimated GFR 54 POC Glucose Random Glucose 146 H Lactic Acid Calcium 8.0 L Total Bilirubin Direct Bilirubin AST ALT Alkaline Phosphatase Ammonia 36 Troponin I High Sens 88.1 H Total Protein Albumin TSH 02/02/24 02/03/24 02/03/24 12:40 08:03 12:23 WBC 8.2 RBC 4.08 L Hgb 10.6 L Hct 34.2 L MCV 83.8 MCH 26.0 L MCHC 31.0 RDW 15.4 Plt Count 202 MPV 9.4 Absolute Nucleated RBC 0.000 Nucleated RBC % (auto) 0.0 VBG pH 7.53 H VBG pCO2 29 VBG pO2 59 VBG HCO3 24 VBG O2 Saturation 90.0 VBG Base Excess 2.5 Sodium 145 Potassium 3.5 Chloride 110 H Carbon Dioxide 26 Anion Gap 13 BUN 34 H Creatinine 1.02 Estim Creat Clear Calc 50.9 Estimated GFR > 60 POC Glucose 163 H Random Glucose 149 H Lactic Acid Calcium 8.6 D Total Bilirubin 0.3 Direct Bilirubin 0.1 AST 21 ALT 16 Alkaline Phosphatase 49 Ammonia Troponin I High Sens Total Protein 5.4 L Albumin 2.9 L TSH 1.67 02/03/24 13:49 WBC RBC Hgb Hct MCV MCH MCHC RDW Plt Count MPV Absolute Nucleated RBC Nucleated RBC % (auto) VBG pH VBG pCO2 VBG pO2 VBG HCO3 VBG O2 Saturation VBG Base Excess Sodium Potassium Chloride Carbon Dioxide Anion Gap BUN Creatinine Estim Creat Clear Calc Estimated GFR POC Glucose Random Glucose Lactic Acid 2.1 H* Calcium Total Bilirubin Direct Bilirubin AST ALT Alkaline Phosphatase Ammonia Troponin I High Sens Total Protein Albumin TSH Imaging Radiology Impressions: ITS Impressions Head CT 02/01/24 12:10 IMPRESSION: HEAD: No acute intracranial hemorrhage or mass effect. CERVICAL SPINE: No acute fracture or subluxation. Straightening of the normal cervical lordosis which may be positional or related to muscular spasm. 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 Electronically signed by: Zackery Regalado MD 02/01/2024 03:37 PM [facility] Cervical Spine CT 02/01/24 13:24 IMPRESSION: HEAD: No acute intracranial hemorrhage or mass effect. CERVICAL SPINE: No acute fracture or subluxation. Straightening of the normal cervical lordosis which may be positional or related to muscular spasm. 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 Electronically signed by: Zackery Regalado MD 02/01/2024 03:37 PM EST RP Lumbar Spine X-Ray 02/01/24 16:45 IMPRESSION: Possible new compression fracture centrally at L1, not well profiled on the crosstable lateral views. Recommend correlation for point tenderness, and consider repeat imaging for cross sectional imaging for further evaluation. Electronically signed by: Laurent Astorga MD 02/01/2024 08:00 PM EST RP Mental Status Exam Mental Status Exam Narrative: Appearance: wearing hospital gown, fair hygiene, MO, some difficulty breathing. Psychomotor: no overt agitation or retardation noted Speech: mumbles, difficult to understand at times even in [place]. Spontaneous. normal tone TP: disorganized with derailment TC: difficult to follow Mood: okay Affect: congruent SI: none HI: nonee VH/AH: no overt signs at time of assessment, but noted to grab things that are not there. Delusions: no overt- confusion and confabulation Memory/cog: alert, not oriented to situation (thinks he is at home), month (October). poor attention Medications Medications Current Medications Acetaminophen (Acetaminophen 325 Mg Tablet) 650 mg PO Q6H PRN PRN Reason: Pain, Mild (Pain Scale 1-3), fever or headache Last Admin: 02/03/24 09:21 Dose: 650 mg Amiodarone HCl (Amiodarone Hcl 200 Mg Tablet) 400 mg PO BID [facility] Last Admin: 02/03/24 11:34 Dose: 400 mg Aspirin (Aspirin Enteric Coated 81 Mg Tablet.Dr) 81 mg PO DAILY [facility] Last Admin: 02/03/24 09:25 Dose: 81 mg Atorvastatin Calcium (Atorvastatin Calcium 80 Mg Tablet) 80 mg PO BEDTIME [facility] Last Admin: 02/02/24 19:52 Dose: 80 mg Calcium Carbonate (Calcium Carbonate 750 Mg Tab.Chew) 750 mg PO Q4H PRN PRN Reason: Heartburn Carvedilol (Carvedilol 25 Mg Tablet) 25 mg PO BID [facility]; Protocol Last Admin: 02/03/24 09:26 Dose: 25 mg Docusate Sodium (Docusate Sodium 100 Mg Capsule) 100 mg PO BID [facility] Last Admin: 02/03/24 09:25 Dose: 100 mg Duloxetine HCl (Duloxetine Hcl 20 Mg Capsule.) 20 mg PO DAILY [facility] Last Admin: 02/03/24 09:21 Dose: 20 mg Ferrous Sulfate (Ferrous Sulfate 324 Mg Tablet.) 324 mg PO DAILY [facility] Last Admin: 02/03/24 09:26 Dose: 324 mg Fluticasone Propionate (Fluticasone Propionate Nasal 16 Gm [place]) 1 spray NOSTRIL-B DAILY PRN PRN Reason: Allergy Symptoms Fluticasone/Vilanterol (Fluticasone/Vilanterol 200/25 Blst.W.Dev) 1 puff INHALE DAILY [facility] Last Admin: 02/03/24 07:43 Dose: 1 puff Furosemide (Furosemide 40 Mg Tablet) 40 mg PO DAILY [facility]; Protocol Last Admin: 02/03/24 09:26 Dose: 40 mg Gabapentin (Gabapentin 100 Mg Capsule) 100 mg PO BID [facility] Last Admin: 02/03/24 09:26 Dose: 100 mg Diltiazem HCl 125 mg/ Sodium (Chloride) 125 mls @ 0 mls/hr IVCONT .Q0M [facility]; Protocol Last Titration: 02/03/24 10:24 Dose: 0 mg/hr, 0 mls/hr Lactated Ringer's (Lr) 1,000 mls @ 80 mls/hr IVCONT .[id number] [facility] Ketorolac Tromethamine (Ketorolac Tromethamine 0.5% Op 5 Ml Drops) 1 drop EYE- BOTH BID [facility] Last Admin: 02/03/24 09:27 Dose: 1 drop Magnesium Hydroxide (Milk Of Magnesia 30 Ml Oral.Susp) 30 ml PO DAILY PRN PRN Reason: Constipation Melatonin (Melatonin 3 Mg Tablet) 6 mg PO BEDTIME PRN PRN Reason: Insomnia Methylprednisolone (Methylprednisolone 4 Mg Tablet) 2 mg PO DAILY@1200 [facility] Last Admin: 02/03/24 11:34 Dose: 2 mg Methylprednisolone (Methylprednisolone 4 Mg Tablet) 4 mg PO BIDWM [facility] Last Admin: 02/03/24 09:26 Dose: 4 mg Multivitamins/Vitamin C (Multivitamin Tablet) 1 tab PO DAILY [facility] Last Admin: 02/03/24 09:27 Dose: 1 tab Omeprazole (Omeprazole 20 Mg Capsule.Dr) 20 mg PO DAILY@0630 [facility] Last Admin: 02/03/24 06:14 Dose: 20 mg Ondansetron HCl (Ondansetron Hcl 4 Mg/2 Ml Vial) 4 mg IVPUSH Q8H PRN PRN Reason: Nausea and Vomiting Polyethylene Glycol (Polyethylene Glycol 3350 17 Gm Powd.Pack) 17 gm PO DAILY PRN PRN Reason: Constipation Potassium Chloride (Potassium Chloride Er 10 Meq Tablet.Er) 10 meq PO BID [facility] Last Admin: 02/03/24 09:25 Dose: 10 meq Rivaroxaban (Rivaroxaban 20 Mg Tablet) 20 mg PO DAILY@1700 [facility] Last Admin: 02/02/24 16:43 Dose: 20 mg Senna (Sennosides 8.6 Mg Tablet) 8.6 mg PO BEDTIME [facility] Last Admin: 02/02/24 19:52 Dose: 8.6 mg Sodium Chloride (0.9 % Sodium Chloride Flush 3 Ml Syringe) 3 ml IVFLUSH QSHIFT [facility] Last Admin: 02/03/24 09:27 Dose: 3 ml Sucralfate (Sucralfate Oral Suspension 1 Gm/10 Ml Oral.Susp) 1 gm PO BEDTIME [facility] Last Admin: 02/02/24 19:53 Dose: 1 gm Tamsulosin HCl (Tamsulosin Hcl 0.4 Mg Capsule) 0.4 mg PO DAILY@1730 [facility] Last Admin: 02/02/24 16:42 Dose: 0.4 mg Verapamil HCl (Verapamil Hcl Sr 120 Mg Tablet.Er) 120 mg PO DAILY [facility]; Protocol Last Admin: 02/03/24 09:27 Dose: Not Given Allergies Allergies Allergy/AdvReac Type Severity Reaction Status Date / Time ezetimibe [From Zetia] Allergy Severe Anaphylaxis Verified 02/01/24 11:36 dabigatran etexilate Allergy Intermediate ITCHING Verified 02/01/24 11:36 [From PRADAXA] JORGE L Inhibitors Allergy Mild UNKNOWN, Verified 02/01/24 11:36 [Jorge L Inhibitors] FOUND IN MEDICAL RECORD 04/[address] GIPSON apixaban [From ELIQUIS] Allergy Unknown Rash Verified 02/01/24 11:36 rosuvastatin [Crestor] Allergy Unknown myalgia Verified 02/01/24 11:36 Assessment & Plan Assessment & Plan (1) Encephalopathy: Status: Acute Code(s): G93.40 - Encephalopathy, unspecified Plan Mr. Da Silva is an 88 year-old male who was brought to [facility] [place] [facility] after unwitnessed fall, increase confusion. Pt found to be in afib with RVR, on cardiazem drip. He presents as not oriented to situation, month, and his speech is disorganized, not following any coherent train of thought and lacking any substance. He is not able to provide any information about his currently medical conditions nor ability to reason. Per , this is not his baseline, although do suspect underlying cognitive impairments. Other labs such as UA which was negative for UTI, Head CT no acute findings (he does have chronic microvascular changes, atrophy), cbc did show initially elevated WBC but note that he is also on glucocorticoid therapy for months. Noted to be dehydrated on admission, with slight increase in Na of 146 but doubt this may have any clinical significance or contributory to delirium and is now resolve. LFT wnl, ammonia wnl. There was some report of urinary retention- bladder scan on 02/02 was 83. Without clear etiology of delirium, would be cautious about addition of antipsychotic for hallucinations s/s to delirium. He currently did not seem to be seeing things that were not there although he has been seen on and off to be reaching to grab things that are not there. Can consider low dose risperidone 0.5mg po TID prn agitation--> monitor QTc<500ms, K>4, Mg>2. Total time managing care of this patient today ____ minutes.
[2024-02-03] MEDS: Lactated Ringers 1,000 ML 80 ML IVCONT (15:31)
[2024-02-03 15:53] LABS: Reflex Lactate? Lactic Acid Added
[2024-02-03 16:30] LABS: ~Lactic Acid-LAB USE ONLY 1.7 mmol/L (0.5-2.0)
--- NOTE | 2024-02-03 16:47 | PC.NURSE ---
LONGITUDINAL FLOAT OPERATOR reproted low BP of 70/47. This RN attempted to get manual BP with no success, charge nurse called to bedside. pt appeared to be diaphoretic with increased confusion and visual hallucinations. PHYSICS AND ASTRONOMY PROFESSOR called at 1222 Pt transferred to bed with max assist and placed into trendelenberg position. Verbal order to give 500 mL NS bolus per Dr Back. see new order, medicated per APR.
[2024-02-03] MEDS: Rivaroxaban 20 MG TABLET PO (17:17)
[2024-02-03] MEDS: Tamsulosin HCL 0.4 MG CAPSULE PO (17:17)
[2024-02-03] MEDS: Melatonin 3 MG TABLET 6 MG PO (20:10)
[2024-02-03] MEDS: Sennosides 8.6 MG TABLET PO (20:10)
[2024-02-03] MEDS: Sucralfate Oral Suspension 1 GM/10 ML ORAL.SUSP PO (20:11)
[2024-02-03] MEDS: Atorvastatin Calcium 80 MG TABLET PO (20:11)
[2024-02-04] VITALS (9 sets, daily range): BP systolic 121–170; BP diastolic 60–90; PULSE 69–99; RESP 17–20; TEMP 36.2–36.8; O2SAT 92–99
--- NOTE | 2024-02-04 | EEG_ITS ---
This is a 16-channel EEG with an EKG lead. The patient is reported awake and confused during the tracing. Background EEG rhythm is mixed theta, beta with some lead and muscle artifacts. Photic stimulation does not produce any significant abnormality. Cardiac lead does not reveal any significant abnormality. Hyperventilation is not performed. No definite sharp wave spikes or paroxysmal tendency noted. IMPRESSION: Generalized slowing with no evidence of seizure disorder. MD ANGEL Miller/TYRESE / [id number]
[2024-02-04] MEDS: Lactated Ringers 1,000 ML 80 ML IVCONT (02:56)
[2024-02-04] MEDS: Omeprazole 20 MG CAPSULE.DR PO (05:33)
[2024-02-04] MEDS: Fluticasone/Vilanterol 200/25 BLST.W.DEV 1 PUFF INHALE (07:50)
[2024-02-04] MEDS: Multivitamin TABLET 1 TAB PO (09:00)
[2024-02-04] MEDS: Furosemide 40 MG TABLET PO (09:00)
[2024-02-04] MEDS: Gabapentin 100 MG CAPSULE PO ×2 (09:00→20:50)
[2024-02-04] MEDS: carvediloL 25 MG TABLET PO ×2 (09:00→20:49)
[2024-02-04] MEDS: methylPREDNISolone 4 MG TABLET PO ×2 (09:00→17:49)
[2024-02-04] MEDS: Aspirin Enteric Coated 81 MG TABLET.DR PO (09:00)
[2024-02-04] MEDS: Amiodarone HCL 200 MG TABLET 400 MG PO ×2 (09:06→20:50)
[2024-02-04] MEDS: VerapamiL HCL SR 120 MG TABLET.ER PO (09:06)
[2024-02-04] MEDS: 0.9 % Sodium Chloride Flush 3 ML SYRINGE IVFLUSH ×2 (09:07→20:51)
[2024-02-04] MEDS: Ferrous Sulfate 324 MG TABLET.DR PO (09:07)
[2024-02-04] MEDS: DULoxetine HCl 20 MG CAPSULE.DR PO (09:07)
[2024-02-04] MEDS: Ketorolac Tromethamine 0.5% Op 5 ML DROPS 1 DROP EYE-BOTH ×2 (09:07→20:51)
[2024-02-04] MEDS: Docusate Sodium 100 MG CAPSULE PO (09:07)
[2024-02-04] MEDS: Potassium Chloride ER 10 MEQ TABLET.ER PO ×2 (09:07→20:50)
--- NOTE | 2024-02-04 10:40 | HO.PM.IMPN ---
Subjective Subjective Date of Service: 02/04/24 Interval History: Patient is still intermittently confused, transient hypotension yesterday resolved, he remains in sinus rythm Review of Systems usion Physical Exam Vital Signs: Vital Signs: Last Vital Signs Temp 97.1 F 02/04/24 08:00 Pulse 75 02/04/24 09:06 Resp 20 02/04/24 08:00 BP 164/75 H 02/04/24 09:06 Pulse Ox 93 02/04/24 08:00 O2 Del Method Room Air 02/04/24 08:00 BMI result Body Mass Index 30.9 Const: Other: General: oriented to self, and aware of being in hospital Resp: CTA bilateral CVS: S1,S2, iregular iregular GI: +BS, NT, no distention Skin: No rash Neuro: motor grossly intact Psych: flat affect and intermittent confusion Neuro: Other: He is alert, pleasant and cooperative. He is oriented to person, place, month and year but did not know the exact date. He has no complaints. His visual leung are full to confrontation. There is no facial asymmetry or weakness. Tongue protrudes in the midline. There is no drift or asterixis. Muscle tone and strength are normal. Reflexes hypoactive. Plantar response are flexor. Neck is supple Objective Data Active Medications Acetaminophen (Acetaminophen 325 Mg Tablet) 650 mg PO Q6H PRN PRN Reason: Pain, Mild (Pain Scale 1-3), fever or headache Last Admin: 02/03/24 09:21 Dose: 650 mg Documented By: ALEXA Albuterol/Ipratropium (Albuterol/Iprat 2.5/0.5mg 3 Ml Ampul.Neb) 3 ml INHALE RQ4H WHILE AWAKE PRN PRN Reason: Shortness of Breath/Wheezing Amiodarone HCl (Amiodarone Hcl 200 Mg Tablet) 400 mg PO BID [facility] Last Admin: 02/04/24 09:06 Dose: 400 mg Documented By: ALEXA Aspirin (Aspirin Enteric Coated 81 Mg Tablet.) 81 mg PO DAILY [facility] Last Admin: 02/04/24 09:00 Dose: 81 mg Documented By: ALEXA Atorvastatin Calcium (Atorvastatin Calcium 80 Mg Tablet) 80 mg PO BEDTIME [facility] Last Admin: 02/03/24 20:11 Dose: 80 mg Documented By: ALEXA Calcium Carbonate (Calcium Carbonate 750 Mg Tab.Chew) 750 mg PO Q4H PRN PRN Reason: Heartburn Carvedilol (Carvedilol 25 Mg Tablet) 25 mg PO BID [facility]; Protocol Last Admin: 02/04/24 09:00 Dose: 25 mg Documented By: ALEXA Docusate Sodium (Docusate Sodium 100 Mg Capsule) 100 mg PO BID [facility] Last Admin: 02/04/24 09:07 Dose: 100 mg Documented By: ALEXA Duloxetine HCl (Duloxetine Hcl 20 Mg Capsule.) 20 mg PO DAILY [facility] Last Admin: 02/04/24 09:07 Dose: 20 mg Documented By: ALEXA Ferrous Sulfate (Ferrous Sulfate 324 Mg Tablet.) 324 mg PO DAILY [facility] Last Admin: 02/04/24 09:07 Dose: 324 mg Documented By: ALEXA Fluticasone Propionate (Fluticasone Propionate Nasal 16 Gm [place]) 1 spray NOSTRIL-B DAILY PRN PRN Reason: Allergy Symptoms Fluticasone/Vilanterol (Fluticasone/Vilanterol 200/25 Blst.W.Dev) 1 puff INHALE DAILY [facility] Last Admin: 02/04/24 07:50 Dose: 1 puff Documented By: ANTONELLA Furosemide (Furosemide 40 Mg Tablet) 40 mg PO DAILY [facility]; Protocol Last Admin: 02/04/24 09:00 Dose: 40 mg Documented By: ALEXA Gabapentin (Gabapentin 100 Mg Capsule) 100 mg PO BID [facility] Last Admin: 02/04/24 09:00 Dose: 100 mg Documented By: ALEXA Ketorolac Tromethamine (Ketorolac Tromethamine 0.5% Op 5 Ml Drops) 1 drop EYE-BOTH BID [facility] Last Admin: 02/04/24 09:07 Dose: 1 drop Documented By: ALEXA Magnesium Hydroxide (Milk Of Magnesia 30 Ml Oral.Susp) 30 ml PO DAILY PRN PRN Reason: Constipation Melatonin (Melatonin 3 Mg Tablet) 6 mg PO BEDTIME PRN PRN Reason: Insomnia Last Admin: 02/03/24 20:10 Dose: 6 mg Documented By: ALEXA Methylprednisolone (Methylprednisolone 4 Mg Tablet) 2 mg PO DAILY@1200 [facility] Last Admin: 02/03/24 11:34 Dose: 2 mg Documented By: CL Methylprednisolone (Methylprednisolone 4 Mg Tablet) 4 mg PO BIDWM [facility] Last Admin: 02/04/24 09:00 Dose: 4 mg Documented By: ALEXA Multivitamins/Vitamin C (Multivitamin Tablet) 1 tab PO DAILY [facility] Last Admin: 02/04/24 09:00 Dose: 1 tab Documented By: ALEXA Omeprazole (Omeprazole 20 Mg Capsule.Dr) 20 mg PO DAILY@0630 [facility] Last Admin: 02/04/24 05:33 Dose: 20 mg Documented By: [place] Ondansetron HCl (Ondansetron Hcl 4 Mg/2 Ml Vial) 4 mg IVPUSH Q8H PRN PRN Reason: Nausea and Vomiting Polyethylene Glycol (Polyethylene Glycol 3350 17 Gm Powd.Pack) 17 gm PO DAILY PRN PRN Reason: Constipation Potassium Chloride (Potassium Chloride Er 10 Meq Tablet.Er) 10 meq PO BID [facility] Last Admin: 02/04/24 09:07 Dose: 10 meq Documented By: ALEXA Rivaroxaban (Rivaroxaban 20 Mg Tablet) 20 mg PO DAILY@1700 [facility] Last Admin: 02/03/24 17:17 Dose: 20 mg Documented By: ALEXA Senna (Sennosides 8.6 Mg Tablet) 8.6 mg PO BEDTIME [facility] Last Admin: 02/03/24 20:10 Dose: 8.6 mg Documented By: ALEXA Sodium Chloride (0.9 % Sodium Chloride Flush 3 Ml Syringe) 3 ml IVFLUSH QSHIFT [facility] Last Admin: 02/04/24 09:07 Dose: 3 ml Documented By: ALEXA Sucralfate (Sucralfate Oral Suspension 1 Gm/10 Ml Oral.Susp) 1 gm PO BEDTIME [facility] Last Admin: 02/03/24 20:11 Dose: 1 gm Documented By: ALEXA Tamsulosin HCl (Tamsulosin Hcl 0.4 Mg Capsule) 0.4 mg PO DAILY@1730 [facility] Last Admin: 02/03/24 17:17 Dose: 0.4 mg Documented By: ALEXA Verapamil HCl (Verapamil Hcl Sr 120 Mg Tablet.Er) 120 mg PO DAILY [facility]; Protocol Last Admin: 02/04/24 09:06 Dose: 120 mg Documented By: ALEXA Labs 02/03/24 08:03 02/03/24 08:03 Labs: Laboratory Results - last 24 hr 02/03/24 02/03/24 02/03/24 08:03 12:23 13:49 POC Glucose 163 H Lactic Acid 2.1 H* Lactic Acid F/U @ 2Hr Total Bilirubin 0.3 Direct Bilirubin 0.1 AST 21 ALT 16 Alkaline Phosphatase 49 Total Protein 5.4 L Albumin 2.9 L TSH 1.67 02/03/24 16:08 POC Glucose Lactic Acid Lactic Acid F/U @ 2Hr 1.7 Total Bilirubin Direct Bilirubin AST ALT Alkaline Phosphatase Total Protein Albumin TSH Assessment and Plan (1) Atrial fibrillation with RVR: Status: Acute Plan 88/m with history of complete heart block--has pace maker, history of paroxysmal atrial fibrillation (PAF) on xarelto, BPH, hypertension, congestive heart failure with preserved ejection fraction, gastroesophageal reflux disease, essential hypertension here with weakness, confusion, afib with RVR Confusion/encephalopathy:, ct head ok, ammonia nl, abg ok, no uti , no fever., wbc normal , lfts, tsh normal. eeg orderred. Seen by neuro: likely multifactorial encephalopathy from dehydration, high Na, and likely underlying dementia. Was also seen by Psych in light of hallucination.--see note from 02/02. He seems to be oveall better today Fall likely d/t multifactorial --dehydration, afib with rvr -PT eval prior to dc AFIB with RVR--has been intermittent RVR requiring cardizem drip. -starting amio 400 mg bid on 02/02, for 1 week, then 200 mg daily - Continue verapamil but give it at night, continue correct -xarelto for stroke prevention -Seen by cardio endorses above management Transient Hypotension with diaphresis yesterday likely vasal episode vs orthostatic BP.. improved promptly without intervention, however was given NS 500 and albumin x 1. Blood has since been on the high side. -Losartan stopped Elevated troponin-likely from afib with rvr -repeat no significant shift BPH on Flomax COPD on fluticasone and vilanterol.? no exacerbation Gastroesophageal reflux disease :continue PPI Essential hypertension: stopping losartan in light of low bp, continue coreg and verapamil Congestive Heart failure with preserved ejection fraction. Continue Lasix DVT prophylaxis: Xarelto Full code will need pt eval before dc, plan discussed with at the bedside Quality Stroke Does the patient have a stroke diagnosis?: No VTE Prior VTE?: No VTE Risk Level:: Medical - moderate - high VTE Device Contraindication: Treatment Not Indicated VTE Drug Contraindication: N/A - Med Ordered
[2024-02-04] MEDS: methylPREDNISolone 4 MG TABLET 2 MG PO (12:32)
[2024-02-04 15:27] LABS: C Reactive Protein 5.13 mg/dL (< or = 0.50)
[2024-02-04] MEDS: Tamsulosin HCL 0.4 MG CAPSULE PO (17:48)
[2024-02-04] MEDS: Rivaroxaban 20 MG TABLET PO (17:48)
[2024-02-04] MEDS: Sucralfate Oral Suspension 1 GM/10 ML ORAL.SUSP PO (20:49)
[2024-02-04] MEDS: Atorvastatin Calcium 80 MG TABLET PO (20:50)
[2024-02-05] VITALS: BP 151/82; PULSE 66; RESP 16; TEMP 36.3; O2SAT 98
[2024-02-05 04:00] VITALS: BP 123/72; PULSE 69; RESP 16; TEMP 36.3; O2SAT 97
[2024-02-05] MEDS: Omeprazole 20 MG CAPSULE.DR PO (06:00)
[2024-02-05 08:00] VITALS: BP 166/79; PULSE 72; RESP 18; TEMP 35.7; O2SAT 96
[2024-02-05 10:22] VITALS: BP 166/79; PULSE 72; O2SAT 96
--- NOTE | 2024-02-05 10:43 | MHC.CM.PN ---
PT is recommending STR; Patient/family is agreeable to a local SNF search. CM will follow.
--- NOTE | 2024-02-05 10:52 | HO.PM.IMPN ---
Subjective Subjective Date of Service: 02/05/24 Interval History: seen and examined offers no complaints Review of Systems Negative except HPI/interval history. Physical Exam Vital Signs: Vital Signs: Last Vital Signs Temp 96.2 F L 02/05/24 08:00 Pulse 72 02/05/24 10:22 Resp 18 02/05/24 08:00 BP 166/79 H 02/05/24 10:22 Pulse Ox 96 02/05/24 10:22 O2 Del Method Room Air 02/05/24 08:00 BMI result Body Mass Index 30.9 Const: Other: General - no acute distress, appears comfortable Cardiovascular - regular rate and rhythm, S1-S2 Lungs - normal respiratory effort, clear to auscultation bilaterally, no wheezing Abdomen - soft, nontender, no rebound or guarding Extremities - no edema bilaterally Neuro - awake and alert, no focal deficits Objective Data Active Medications Acetaminophen (Acetaminophen 325 Mg Tablet) 650 mg PO Q6H PRN PRN Reason: Pain, Mild (Pain Scale 1-3), fever or headache Last Admin: 02/03/24 09:21 Dose: 650 mg Documented By: ALEXA Albuterol/Ipratropium (Albuterol/Iprat 2.5/0.5mg 3 Ml Ampul.Neb) 3 ml INHALE RQ4H WHILE AWAKE PRN PRN Reason: Shortness of Breath/Wheezing Amiodarone HCl (Amiodarone Hcl 200 Mg Tablet) 400 mg PO BID [facility] Last Admin: 02/04/24 20:50 Dose: 400 mg Documented By: UMANG Aspirin (Aspirin Enteric Coated 81 Mg Tablet.) 81 mg PO DAILY [facility] Last Admin: 02/04/24 09:00 Dose: 81 mg Documented By: ALEXA Atorvastatin Calcium (Atorvastatin Calcium 80 Mg Tablet) 80 mg PO BEDTIME [facility] Last Admin: 02/04/24 20:50 Dose: 80 mg Documented By: UMANG Calcium Carbonate (Calcium Carbonate 750 Mg Tab.Chew) 750 mg PO Q4H PRN PRN Reason: Heartburn Carvedilol (Carvedilol 25 Mg Tablet) 25 mg PO BID [facility]; Protocol Last Admin: 02/04/24 20:49 Dose: 25 mg Documented By: UMANG Docusate Sodium (Docusate Sodium 100 Mg Capsule) 100 mg PO BID [facility] Last Admin: 02/04/24 20:50 Dose: Not Given Documented By: UMANG Non-Admin Reason: Patient Refused Duloxetine HCl (Duloxetine Hcl 20 Mg Capsule.) 20 mg PO DAILY [facility] Last Admin: 02/04/24 09:07 Dose: 20 mg Documented By: ALEXA Ferrous Sulfate (Ferrous Sulfate 324 Mg Tablet.) 324 mg PO DAILY [facility] Last Admin: 02/04/24 09:07 Dose: 324 mg Documented By: ALEXA Fluticasone Propionate (Fluticasone Propionate Nasal 16 Gm [place]) 1 spray NOSTRIL-B DAILY PRN PRN Reason: Allergy Symptoms Fluticasone/Vilanterol (Fluticasone/Vilanterol 200/25 Blst.W.Dev) 1 puff INHALE DAILY [facility] Last Admin: 02/05/24 07:32 Dose: Not Given Documented By: TRINIDAD Non-Admin Reason: Patient Asleep Furosemide (Furosemide 40 Mg Tablet) 40 mg PO DAILY [facility]; Protocol Last Admin: 02/04/24 09:00 Dose: 40 mg Documented By: ALEXA Gabapentin (Gabapentin 100 Mg Capsule) 100 mg PO BID [facility] Last Admin: 02/04/24 20:50 Dose: 100 mg Documented By: UMANG Ketorolac Tromethamine (Ketorolac Tromethamine 0.5% Op 5 Ml Drops) 1 drop EYE-BOTH BID [facility] Last Admin: 02/04/24 20:51 Dose: 1 drop Documented By: UMANG Magnesium Hydroxide (Milk Of Magnesia 30 Ml Oral.Susp) 30 ml PO DAILY PRN PRN Reason: Constipation Melatonin (Melatonin 3 Mg Tablet) 6 mg PO BEDTIME PRN PRN Reason: Insomnia Last Admin: 02/03/24 20:10 Dose: 6 mg Documented By: ALEXA Methylprednisolone (Methylprednisolone 4 Mg Tablet) 2 mg PO DAILY@1200 [facility] Last Admin: 02/04/24 12:32 Dose: 2 mg Documented By: ALEXA Methylprednisolone (Methylprednisolone 4 Mg Tablet) 4 mg PO BIDWM [facility] Last Admin: 02/04/24 17:49 Dose: 4 mg Documented By: CÉSAR Multivitamins/Vitamin C (Multivitamin Tablet) 1 tab PO DAILY [facility] Last Admin: 02/04/24 09:00 Dose: 1 tab Documented By: ALEXA Omeprazole (Omeprazole 20 Mg Capsule.Dr) 20 mg PO DAILY@0630 [facility] Last Admin: 02/05/24 06:00 Dose: 20 mg Documented By: UMANG Ondansetron HCl (Ondansetron Hcl 4 Mg/2 Ml Vial) 4 mg IVPUSH Q8H PRN PRN Reason: Nausea and Vomiting Polyethylene Glycol (Polyethylene Glycol 3350 17 Gm Powd.Pack) 17 gm PO DAILY PRN PRN Reason: Constipation Potassium Chloride (Potassium Chloride Er 10 Meq Tablet.Er) 10 meq PO BID [facility] Last Admin: 02/04/24 20:50 Dose: 10 meq Documented By: UMANG Rivaroxaban (Rivaroxaban 20 Mg Tablet) 20 mg PO DAILY@1700 [facility] Last Admin: 02/04/24 17:48 Dose: 20 mg Documented By: CÉSAR Senna (Sennosides 8.6 Mg Tablet) 8.6 mg PO BEDTIME [facility] Last Admin: 02/04/24 20:50 Dose: Not Given Documented By: UMANG Non-Admin Reason: Patient Refused Sodium Chloride (0.9 % Sodium Chloride Flush 3 Ml Syringe) 3 ml IVFLUSH QSHIFT [facility] Last Admin: 02/04/24 20:51 Dose: 3 ml Documented By: UMANG Sucralfate (Sucralfate Oral Suspension 1 Gm/10 Ml Oral.Susp) 1 gm PO BEDTIME [facility] Last Admin: 02/04/24 20:49 Dose: 1 gm Documented By: UMANG Tamsulosin HCl (Tamsulosin Hcl 0.4 Mg Capsule) 0.4 mg PO DAILY@1730 [facility] Last Admin: 02/04/24 17:48 Dose: 0.4 mg Documented By: CÉSAR Verapamil HCl (Verapamil Hcl Sr 120 Mg Tablet.Er) 120 mg PO DAILY [facility]; Protocol Last Admin: 02/04/24 09:06 Dose: 120 mg Documented By: ALEXA Labs 02/03/24 08:03 02/03/24 08:03 Labs: Laboratory Results - last 24 hr 02/04/24 14:59 C-Reactive Protein 5.13 H Microbiology Microbiology Results: Microbiology 02/03/24 13:49 Blood Culture - Preliminary Blood - Venous No growth after 24 hours. 02/03/24 13:49 Blood Culture - Preliminary Blood - Venous No growth after 24 hours. Assessment and Plan (1) Atrial fibrillation with RVR: Status: Acute Plan 88/m with history of complete heart block--has pace maker, history of paroxysmal atrial fibrillation (PAF) on xarelto, BPH, hypertension, congestive heart failure with preserved ejection fraction, gastroesophageal reflux disease, essential hypertension here with weakness, confusion, afib with RVR Confusion/acute encephalopathy ct head ok, ammonia nl, abg ok, no uti , no fever., wbc normal , lfts, tsh normal. eeg ordered - showing generalized slowing without evidence of seizures Seen by neuro: likely multifactorial encephalopathy from dehydration, high Na, and likely underlying dementia. Was also seen by Psych in light of hallucination.--see note from 02/02. seems to be improving Fall likely d/t multifactorial --dehydration, afib with rvr Seen by PT -- recs for STR AFIB with RVR--has been intermittent RVR requiring cardizem drip. -starting amio 400 mg bid on 02/02, for 2 weeks, followed by 200mg daily - Continue verapamil but give it at night, continue correct -xarelto for stroke prevention -Seen by cardio endorses above management Transient Hypotension with diaphresis 02/02 likely vasal episode vs orthostatic BP.. improved promptly without intervention, however was given NS 500 and albumin x 1. Blood has since been on the high side. -Losartan stopped Elevated troponin-likely from afib with rvr -repeat no significant shift BPH on Flomax COPD on fluticasone and vilanterol.? no exacerbation Gastroesophageal reflux disease :continue PPI Essential hypertension: , continue coreg and verapamil; losartan stopped -- see above Congestive Heart failure with preserved ejection fraction. Continue Lasix DVT prophylaxis: Xarelto Full code dispo: STR (when bed available and family agrees) vs home with services Quality Stroke Does the patient have a stroke diagnosis?: No VTE Prior VTE?: No VTE Risk Level:: Medical - moderate - high VTE Device Contraindication: Treatment Not Indicated VTE Drug Contraindication: N/A - Med Ordered
[2024-02-05] MEDS: Aspirin Enteric Coated 81 MG TABLET.DR PO (10:56)
[2024-02-05] MEDS: Potassium Chloride ER 10 MEQ TABLET.ER PO (10:56)
[2024-02-05] MEDS: Multivitamin TABLET 1 TAB PO (10:57)
[2024-02-05] MEDS: VerapamiL HCL SR 120 MG TABLET.ER PO (10:57)
[2024-02-05] MEDS: Ferrous Sulfate 324 MG TABLET.DR PO (10:58)
[2024-02-05] MEDS: methylPREDNISolone 4 MG TABLET PO ×2 (10:58→16:32)
[2024-02-05] MEDS: Amiodarone HCL 200 MG TABLET 400 MG PO ×2 (10:59→17:04)
[2024-02-05] MEDS: Gabapentin 100 MG CAPSULE PO (10:59)
[2024-02-05] MEDS: Furosemide 40 MG TABLET PO (10:59)
[2024-02-05] MEDS: carvediloL 25 MG TABLET PO (10:59)
[2024-02-05] MEDS: DULoxetine HCl 20 MG CAPSULE.DR PO (10:59)
[2024-02-05] MEDS: 0.9 % Sodium Chloride Flush 3 ML SYRINGE IVFLUSH ×2 (11:00→16:31)
[2024-02-05] MEDS: Ketorolac Tromethamine 0.5% Op 5 ML DROPS 1 DROP EYE-BOTH (11:00)
[2024-02-05 12:00] VITALS: BP 130/60; PULSE 70; RESP 16; TEMP 36.3; O2SAT 97
--- NOTE | 2024-02-05 13:59 | P.DS_ITS ---
DS: Providers Provider Date of Service: 02/05/24 Date of admission: 02/01/24 17:30 Primary care physician: Unknown Physician Consults: 02/02/24 11:19 Consult to Cardiology Routine Consulting Provider: [facility] [place] [facility] Reason for consultation: afib with RVR 02/03/24 11:43 Consult to Psychiatry Routine Consulting Provider: [facility] [place] Psych Covering Reason for consultation: confusion, hallucinating, no acute medical problems 02/03/24 13:12 Consult to Neurology Stat Consulting Provider: [facility] Reason for consultation: encephalpathy Has provider been notified: No DS: Diagnosis Discharge Diagnosis (1) Atrial fibrillation with RVR: Status: Acute (2) Encephalopathy: Status: Acute (3) Transient hypotension: Status: Acute DS: Summary Hospital Course Hospital Course: HPI From admission H&P: an 88-year-old male with pertinent history of paroxysmal atrial fibrillation on anticoagulation, BPH, essential hypertension, congestive heart failure with preserved ejection fraction, gastroesophageal reflux disease, essential hypertension here from home with report of patient having been confused and may have fallen as he was found leaning aginst his bed with presume head strike. Family have been reporting increasing confusion and trouble voiding. Work up troponin I level of [address] head and neck no acute finding. While in the ED went into AFIB with RVR and required iv cardizem. Hospital Course: Patient presented to the hospital with a fall and AFib with RVR. He was initiated on IV Cardizem drip and was continued on his anticoagulation. His fall was deemed multifactorial due to dehydration and AFib with RVR. He was treated with fluids and as his cardiac condition improved he improved. He was evaluated by Physical therapy with recommendations for short-term rehabilitation. However the family elected for home with VNA services. Family was informed on the importance of short-term rehabilitation, but declined nonetheless. In regards to his AFib, Cardiology was consulted and recommended suppression with amiodarone. He will be discharged on 400 mg of amiodarone twice a day for a total of 2 weeks with end date 02/16/2024. Starting 02/16/2025 he should be on amiodarone at 200 mg daily. He should follow up with Cardiology. He should continue his other medications as he previously did. Patient's hospital course was complicated by transient hypotension with diaphoresis. This was likely deemed due to a vagal/orthostatic episode. BP i mproved with low-dose fluids and in fact blood pressure is on the higher now. Nonetheless under Cardiology recommendations his losartan has been discontinued. Should his BP increased again this can be re-initiated as an outpatient. Patient's hospital course was further complicated by encephalopathy and possible hallucinations. He was evaluated by both Neurology as well as Psychiatry. Neurology recommended EEG which was done and showed diffuse slowing without evidence of seizure activity. Psychiatry felt this was delirium and did not recommend any specific antipsychotics. He improved without medical intervention and is at baseline. Time Attestation Discharge Coordination Time (in mins): 40 Quality: Safe Use of Opioids Does Pt have an Active Cancer Diagnosis on the Problem List?: No Quality: Stroke Does the patient have a stroke diagnosis?: No Physical Exam Vital Signs: Vital Signs: Last Vital Signs Temp 97.3 F 02/05/24 12:00 Pulse 70 02/05/24 12:00 Resp 16 02/05/24 12:00 BP 130/60 02/05/24 12:00 Pulse Ox 97 02/05/24 12:00 O2 Del Method Room Air 02/05/24 12:00 BMI result Body Mass Index 30.9 Const: Other: General - no acute distress, appears comfortable Cardiovascular - regular rate and rhythm, S1-S2 Lungs - normal respiratory effort, clear to auscultation bilaterally, no wheezing Abdomen - soft, nontender, no rebound or guarding Extremities - no edema bilaterally Neuro - awake and alert, no focal deficits DS: Data Data Completed and Pending Completed studies during hospitalization [Text1]: Procedures Insertion of Endotracheal Airway into Trachea, Via Natural or Artificial Opening Endoscopic (04/01/20) Insertion of Infusion Device into Superior Vena Cava, Percutaneous Approach (04/01/20) Insertion of Pacemaker Lead into Right Atrium, Percutaneous Approach (03/25/22) Insertion of Pacemaker Lead into Right Ventricle, Percutaneous Approach (03/25/22) Insertion of Pacemaker, Dual Chamber into Chest Subcutaneous Tissue and Fascia, Open Approach (03/25/22) Introduction of Remdesivir Anti-infective into Peripheral Vein, Percutaneous Approach, [employer] (04/01/20) Respiratory Ventilation, Greater than 96 Consecutive Hours (04/01/20) Transfusion of Convalescent Plasma (Nonautologous) into Peripheral Vein, Percutaneous Approach, [employer] (04/01/20) Ultrasonography of Superior Vena Cava, Guidance (04/01/20) Labs on day of discharge: Laboratory Results - last 24 hr 02/04/24 14:59 C-Reactive Protein 5.13 H Preliminary micro results at discharge 02/03/24 13:49 Blood Culture - Preliminary Blood - Venous No growth after 24 hours. 02/03/24 13:49 Blood Culture - Preliminary Blood - Venous No growth after 24 hours. Discharge Plan Discharge Anticipated Discharge Date/Time: 02/05/24 13:54 Patient Disposition: Home Health Service Discharge Diagnosis: Encephalopathy A. Fib RVR Referrals: Physician,Unknown J [Primary Care Provider] - 1 Week Discharge Medications: New amiodarone 200 mg tablet See Rx Instructions .ROUTE .COMPLEX Qty: 180 0RF Rx Instructions: Take 400mg twice daily (2 tablets 2 times a day) until February 15; Starting February 15, take 200mg daily (1 tablet once a day) Continued tamsulosin 0.4 mg capsule 0.4 mg PO DAILY 90 Days Qty: 90 3RF furosemide 40 mg tablet 40 mg PO DAILY Qty: 30 5RF docusate sodium 100 mg capsule 100 mg PO BID Qty: 60 5RF sucralfate 100 mg/mL suspension 10 ml PO BEDTIME Qty: 400 3RF pantoprazole 40 mg tablet,delayed release (DR/EC) 40 mg PO DAILY@0630 Qty: 90 3RF atorvastatin 80 mg tablet 80 mg PO BEDTIME potassium chloride 10 mEq tablet extended release 1 tab PO BID fluticasone furoate-vilanterol [Breo Ellipta] 200-25 mcg/dose Blister With Device 1 inh INHALATION DAILY ferrous sulfate [FeroSul] 325 mg (65 mg iron) tablet 325 mg PO DAILY fluticasone propionate 50 mcg/actuation spray,suspension 1 spray intranasal DAILY PRN (Reason: Allergy Symptoms) gabapentin 100 mg capsule 100 mg PO BID duloxetine 20 mg capsule,delayed release(DR/EC) 20 mg PO DAILY CertaVite Senior 0.4 mg-300 mcg- 250 mcg tablet 1 tab PO DAILY methylprednisolone 4 mg tablet 2 mg PO DAILY@1200 methylprednisolone 4 mg tablet 4 mg PO BID acetaminophen [Tylenol Arthritis Pain] 650 mg Tablet Extended Release 1,300 mg PO Q8H PRN (Reason: Pain) Xarelto 20 mg tablet 20 mg PO BEDTIME carvedilol 25 mg tablet 25 mg PO BID ketorolac 0.5 % drops 1 drp ophthalmic (eye) BID aspirin 81 mg tablet,delayed release (DR/EC) 81 mg PO DAILY verapamil 120 mg tablet extended release 120 mg PO DAILY sennosides [senna] 8.6 mg tablet 8.6 mg PO BEDTIME Qty: 90 4RF Discontinued losartan 50 mg tablet 50 mg PO DAILY losartan 25 mg tablet 25 mg PO DAILY Discharge Orders: Discharge Order (Routine); Ordered 02/05/24 Ordered By: Leonardo Crowe Diet: Advance to usual diet Activity on Discharge: As tolerated Stand Alone Forms: Patient Portal Discharge page Print Language: Israeli Care Plan Goals: To stay healthy and out of the hospital. Health Concerns: See discharge summary Plan of Treatment: See discharge summary Assessment: See discharge summary
--- NOTE | 2024-02-05 14:04 | W.MHC.F2F ---
Service Date Service Date: 02/05/24 Encounter Date of encounter: 02/05/24 Reasons for Services Signs and symptoms assessed: ambulation and gait medication (new -- amiodarone) teaching Reason for long term: medication management and teach disease management Reason for physical therapy: home safety and mobility and therapeutic exercises Overseeing Care: Crystal Vera Homebound: Leaving the home is medically contraindicated at this time without the asist of a device and/or another person due th the listed conditions above and below. Reason homebound: unsteady gait / fall risk and cognitively impaired / unsafe Homebound supporting statement: Pt with dementia and unstead gait. Certification: Based on the above findings, I certify that this patient is confined to the home and needs intermittent long term care, physical therapy and/or speech therapy, or continues to need occupational therapy. The patient is under my care, and I have initiated the establishment of the plan of care. The patient will be followed by a physician who will periodically review the plan of care. Time Spent With Patient Time: Total time managing care of this patient today ____ minutes.
[2024-02-05] MEDS: methylPREDNISolone 4 MG TABLET 2 MG PO (14:10)
--- NOTE | 2024-02-05 14:24 | MHC.CM.PN ---
Patient has been medically cleared for dc to home today, with services. A referral has been made to NA, who is aware of today's dc. CM spoke with /HCP/[place] at listed number and addressed IMM. Patient will dc to home today at 4:30PM, via [facility] ([facility] auth # for transport is [id number].
[2024-02-05] MEDS: Tamsulosin HCL 0.4 MG CAPSULE PO (16:31)
[2024-02-05] MEDS: Rivaroxaban 20 MG TABLET PO (16:31)
--- NOTE | 2024-02-06 11:36 | P.CDIM_ITS ---
PROVIDER RESPONSE TEXT: To clarify, the appropriate diagnosis supported by the clinical indicators: Other (explain): Multifactorial including metabolic in the setting of dementia QUERY TEXT: PHYSICIAN'S DOCUMENTATION REQUEST Date of Query: 02/05/2024 12:40 PM EST Patient Name: Pal Da Silva Admit Date: 02/01/2024 Dear Leonardo Crowe MD, A review of the medical record indicates additional documentation may be needed. Please review below and update the documentation accordingly. Clinical Indicators: H&P dated 01/31 - Report of patient having been confused and may have fallen as he was found leaning a gainst his bed presume head strike. Neurology consultation note dated 02/02 - Encephalopathy, probably multifactorial related to dehydrat ion and hypernatremia which appears to have resolved. ? Dementia Progress note 02/03 - Patient is intermittently confused. Patient was also seen by Psych in light of hallucinations. Based on the above, please further specify, in the Progress Notes, the known or suspected type of the documented encephalopathy: Metabolic Toxic Toxic metabolic Other encephalopathy Other (explain) Clinically unable to determine (explain) Thank you, Aneta Dhillon, CCS, CDIS Use of terms such as suspected, likely, concern for, or probable (associated with a specific diagnosi s that is being evaluated, monitored, or treated as if it exists) are acceptable and can be coded in the inpatient se tting, when documented at the time of discharge. Please use your independent medical judgment in providing your response. THIS QUERY IS PART OF THE PERMANENT MEDICAL RECORD
== END 2024-02-05 19:02 | disposition home health service (06) | DRG 308 ==
LOC: HO.ED 12:10 → HO.EDOVER 17:35 → HO.IMC 02-02 02:27
PROVIDERS: Admitting Provider Internal Medicine; Emergency Provider Emergency Medicine; Visit Provider Family Medicine
DX: I48.0 Paroxysmal atrial fibrillation (principal); G93.41 Metabolic encephalopathy; I50.32 Chronic diastolic (congestive) heart failure; E87.0 Hyperosmolality and hypernatremia; E86.0 Dehydration; I42.2 Other hypertrophic cardiomyopathy; I44.2 Atrioventricular block, complete; I25.10 Atherosclerotic heart disease of native coronary artery without angina pectoris; F03.90 Unspecified dementia, unspecified severity, without behavioral disturbance, psychotic disturbance, mood disturbance, and anxiety; N40.0 Benign prostatic hyperplasia without lower urinary tract symptoms; J44.9 Chronic obstructive pulmonary disease, unspecified; I95.9 Hypotension, unspecified; K21.9 Gastro-esophageal reflux disease without esophagitis; I11.0 Hypertensive heart disease with heart failure; W19.XXXA Unspecified fall, initial encounter; Z95.0 Presence of cardiac pacemaker; Z79.01 Long term (current) use of anticoagulants; Z79.51 Long term (current) use of inhaled steroids; Z79.82 Long term (current) use of aspirin; Z79.899 Other long term (current) drug therapy
CPT/HCPCS: 36415; 70450; 72100; 72125; 80048; 80053; 80076; 81003; 82140; 82803; 82947; 83605; 84443; 84484; 85025; 85027; 86140; 87040; 93005; 94640; 95816; 97162; 99285; J7120; P9047

== ENCOUNTER → 2024-02-01 12:11 | Outpatient (BNV) | payer OTHER, SELFPAY | PROVIDERS: Emergency Provider Emergency Medicine; Visit Provider Internal Medicine Cardiovascular Disease | DX: R07.9 Chest pain, unspecified (principal); R94.31 Abnormal electrocardiogram [ECG] [EKG]; I49.3 Ventricular premature depolarization | CPT/HCPCS: 93010 ==

== ENCOUNTER → 2024-02-01 17:30 | Outpatient (BNV) | payer OTHER, SELFPAY | PROVIDERS: Admitting Provider Internal Medicine; Emergency Provider Emergency Medicine; Visit Provider Psychiatry & Neurology Neurology | DX: S09.90XA Unspecified injury of head, initial encounter (principal); E87.0 Hyperosmolality and hypernatremia | CPT/HCPCS: 99222 ==

== ENCOUNTER → 2024-02-01 17:30 | Outpatient (BNV) | payer OTHER, SELFPAY | PROVIDERS: Admitting Provider Internal Medicine; Emergency Provider Emergency Medicine; Visit Provider Internal Medicine | DX: I48.0 Paroxysmal atrial fibrillation (principal) | CPT/HCPCS: 99222; 99232 ==

== ENCOUNTER → 2024-02-01 17:30 | Outpatient (BNV) | payer OTHER, SELFPAY | PROVIDERS: Admitting Provider Internal Medicine; Emergency Provider Emergency Medicine; Visit Provider Internal Medicine Cardiovascular Disease | DX: I48.91 Unspecified atrial fibrillation (principal); Z95.0 Presence of cardiac pacemaker; I42.2 Other hypertrophic cardiomyopathy | CPT/HCPCS: 99222 ==

== ENCOUNTER → 2024-02-01 17:30 | Outpatient (BNV) | payer OTHER, SELFPAY | PROVIDERS: Admitting Provider Internal Medicine; Emergency Provider Emergency Medicine; Visit Provider Social Worker | DX: G93.40 Encephalopathy, unspecified (principal) | CPT/HCPCS: 99232 ==

== ENCOUNTER 2024-02-16 13:54 | Emergency (ER) | payer OTHER, SELFPAY ==
[2024-02-16] VITALS (7 sets, daily range): BP systolic 118–188; BP diastolic 64–102; PULSE 72–100; RESP 16–20; TEMP 36.3–37; O2SAT 93–96; BMI 35.2
--- NOTE | ~2024-02-16 | CT_ITS ---
EXAMINATION: CT CHEST WITHOUT CONTRAST CLINICAL INFORMATION: Abnormal chest radiograph COMPARISON: Chest radiograph 01/27/2024: Low lung volumes with bibasilar atelectasis and possible layering left pleural effusion. Superimposed pneumonia or aspiration especially at the left base should be considered CT chest 04/01/2020 TECHNIQUE: Multidetector volumetric CT imaging of the chest was done. Axial MIP volume rendering provided. Sagittal and coronal reformatted images were obtained. This CT examination was performed using dose optimization techniques as appropriate, variously including the following: *Automated exposure control *Adjustment of mA and/or kV according to patient size (this includes techniques or standardized protocols for targeted exams where dose is matched to indication/reason for exam; i.e. extremities or head) *Use of iterative reconstruction technique DLP: 550 mGy-cm FINDINGS: LUNGS AND PLEURA: There is a large amount of subpleural fat, increased when compared to prior. No significant pleural effusions are seen on either side. There is mild prominence of the interstitium. There is some mild subpleural reticulation suggesting possibly fibrosis. Some small pulmonary nodules are present which may represent fissural lymph nodes (for example 6.6 mm right lower lobe and 10 mm right lower lobe (4:205 and 226). At the time of the prior CT scan, there is diffuse multifocal pneumonia which is significantly improved. There is no new acute finding MEDIASTINUM: Left chest wall pacer with dual leads is present. There is mild cardiac enlargement. No mediastinal or hilar lymphadenopathy. CORONARY ARTERY CALCIFICATION: Present AXILLA: No lymphadenopathy. CHEST WALL: There is marked bilateral gynecomastia. UPPER ABDOMEN: Unremarkable. OSSEOUS STRUCTURES: Multiple chronic left-sided rib fractures are again noted on the left severe degenerative change seen in the right shoulder with probable intra-articular loose bodies. CT/CT chest wo IV con IMPRESSION: 1. No acute intrathoracic disease. 2. Large amount of subpleural fat, increased when compared to prior. 3. Mild prominence of the interstitium with some mild subpleural reticulation suggesting possibly fibrosis. 4. Small pulmonary nodules as described above. 5. Other incidental findings as described above. Fleischner guidelines were followed. Electronically signed by: Klever No MD 02/16/2024 06:28 [facility]
--- NOTE | ~2024-02-16 | CT_ITS ---
EXAMINATION: CT HEAD WITHOUT CONTRAST CLINICAL INFORMATION: Altered mental COMPARISON: 02/01/2024 TECHNIQUE: Contiguous axial imaging was performed from the skull base to vertex without intravenous administration of contrast. This CT examination was performed using dose optimization techniques as appropriate, variously including the following: *Automated exposure control *Adjustment of mA and/or kV according to patient size (this includes techniques or standardized protocols for targeted exams where dose is matched to indication/reason for exam; i.e. extremities or head) *Use of iterative reconstruction technique DLP: 876 mGy-cm FINDINGS: CT examination of the brain shows age-related involutional changes with prominence of the ventricles and sulci. Periventricular white matter hypodensities are evident, likely on the basis of chronic microvascular ischemic disease. Old right anterior capsule lacunar infarct is unchanged. No acute hemorrhage, mass effect or shift is evident. In the posterior fossa, the brainstem, cerebellum and fourth ventricle are unremarkable. The orbits and bony calvarium are intact. The paranasal sinuses and mastoid air cells are well pneumatized and clear. CT/CT head/brain wo IV con IMPRESSION: 1. Age-related involutional changes and microvascular disease. 2. No acute hemorrhage, mass effect, shift or acute intracranial pathology. Electronically signed by: Mukund Sigala MD 02/16/2024 04:50 PM [facility]
--- NOTE | ~2024-02-16 | XR_ITS ---
EXAMINATION: XR CHEST CLINICAL INFORMATION: altered mental COMPARISON: 04/10/2023 TECHNIQUE: Frontal view of the chest was obtained. FINDINGS: There are low lung volumes. Coarse opacities are evident at both lung bases, left more than right. There is haziness at the left lung base which may reflect layering pleural fluid. The cardiac silhouette is magnified by the AP position. Left subclavian pacemaker device is unchanged. Severe posttraumatic deformity of the right humeral head is again evident. XR/XR chest 1V IMPRESSION: Low lung volumes with bibasilar atelectasis and possible layering left pleural effusion. Superimposed pneumonia or aspiration especially at the left base should be considered. Electronically signed by: Mukund Sigala MD 02/16/2024 04:52 PM [facility]
[2024-02-16 14:35] LABS: MANUAL DIFF FLAG NO
[2024-02-16 14:36] LABS: Basophils Percent Auto 0.2 % (0-2); Eosinophils Absolute Auto 0.1 X10*3/uL (0.0-0.4); Eosinophils Percent Auto 0.8 % (0-4); Hematocrit 35.7 % (42.0-52.0); Hemoglobin 10.9 g/dl (14.0-18.0); Imm Gran Abs Auto 0.14 X10*3/uL (0.00-0.03); Imm Gran Pct Auto 1.1 % (0.0-0.4); Lymphocytes Absolute Auto 2.3 X10*3/uL (1.2-4.9); Lymphocytes Percent Auto 17.8 % (20-40); Mean Corpuscular HGB Conc 30.5 g/dl (31.0-36.0); Mean Corpuscular Hemoglobin 25.9 pg (27.0-33.0); Mean Corpuscular Volume 84.8 fL (80.0-98.0); Mean Platelet Volume 8.9 fL (9.4-12.4); Monocytes Percent Auto 7.9 % (2-11); Neutrophils Absolute Auto 9.2 x10*3/uL (2.0-8.3); Neutrophils Percent Auto 72.2 % (45-73); Platelet Count 305 X10*3/uL (160-400); Red Blood Count 4.21 X10*6/uL (4.60-5.80); Red Cell Distribution Width 15.6 % (11.0-16.0); White Blood Count 12.8 X10*3/uL (4.8-10.8)
[2024-02-16 14:40] LABS: Venous Blood Gas Refer to POC result
[2024-02-16 14:40] LABS: VBG Base Excess 9.1 mmol/L; VBG HCO3 33 mmol/L (22-26); VBG pCO2 44 mmHg; VBG pH 7.48 (7.32-7.43); VBG pO2 65 mmHg
[2024-02-16 14:49] LABS: Alanine Aminotransferase 16 U/L (0-40); Alkaline Phosphatase 76 U/L (39-117); Anion Gap 14 (12-20); Aspartate Amino Transferase 24 U/L (5-37); Bilirubin Total 0.4 mg/dL (0.0-1.0); Blood Urea Nitrogen 17 mg/dL (9-16); Calcium 8.8 mg/dL (8.4-10.2); Carbon Dioxide 28 mmol/L (22-29); Chloride 107 mmol/L (96-108); Creatinine Clr Calc Pharmacy 48.3; Estimated Glomerular Filt Rate > 60; Glucose Random 118 mg/dL (60-115); Potassium 3.9 mmol/L (3.3-5.1); Sodium 145 mmol/L (135-145); Total Protein 5.9 g/dL (6.5-8.0)
--- OUTSIDE RECORDS SUMMARY | 2024-02-16 14:51 | XMS_ITS | Continuity of Care Document ---
Author Organization [employer] [place] [employer] Address [address] [place] [phone] Care Team Providers Care Internet Media Planner Name Role Phone HIM CCA OTHER KISHORE ROBERSON Primary Care Provider Assessment No assessment recorded. Plan of Treatment Reminders Order Date Submit Date Provider Last Modified By Organization Details Last Modified Time Details Appointments Urgent Care 2023 01:01P Sophia Castillo MD Not available Not available Not available Lab None recorded. Referral None recorded. Procedures None recorded. Surgeries None recorded. Imaging None recorded. Medication Orders cyclobenz aprine 5 mg tablet 2023 024 [id number], [address], [place], [phone], 01/27/2024 17:57:09 Patient TargetsNo targets recorded. Patient InstructionsNo instructions recorded. Reason for Referral None Reported. Medical Equipment None Reported. Allergies Allergen ID Allergen Name Allergen Category Reaction Reaction Severity Criticality Documentation Date Start Date Code Code System Note Provider Name and Address Organization Details Recorded Time 937 dabigatra n etexilate medicatio n Not available Not available Not available 10/22/2021 86220 42 RxNorm Not Available [facility] - production 4 12:15:20 938 Product containin g angiotens in-conver ting enzyme inhibitor (product) medicatio n Not available Not available Not available 10/22/2021 32034 009 MARYSE Messina MD [address] [place] [address],[address], [place], [phone] , [facility] 17:14:14 939 ezetimibe medicatio n Not available Not available Not available 10/22/2021 61363 8 RxNorm Not Available [facility] - production 4 16:01:50 940 apixaban medicatio n Not available Not available Not available 10/22/2021 45738 30 RxNorm Not Available [facility] 16:01:50 941 Lipitor medicatio n Not available Not available Not available 10/22/2021 72928 5 RxNorm Not Available [facility] 12:15:20 Medications Name Sig Start Date Stop Date [...] Not Available Not Available Not Available ipratropium 0.5 mg-albuterol 3 mg (2.5 mg base)/3 mL nebulization soln Inhale 3 mL by nebulizatio n route. 2023 active Not Available Not Available Not Avai lable albuterol sulfate 2.5 mg/3 mL (0.083 %) solution for nebulization Inhale 3 mL 3 times a day by nebulizatio n route as needed. active Not Available Not Available No t Available cetirizine 10 mg tablet active Not Available Not Available Not Available cefpodoxime 200 mg tablet Take 1 tablet every 12 hours by oral route for 7 days. active Not Available Not Available Not Available amiodarone 200 mg tablet active Not Available Not [...] N ot Available tramadol 50 mg tablet TAKE 1 TABLET BY MOUTH EVERY 8 HOURS NEEDED FOR SEVERE PAIN active Not Available Not Available Not Available ketorolac 0.5 % eye drops INSTILL [...] active Not Available Not Available Not Available dexamethason e 4 mg tablet TAKE 1 TABLET BY MOUTH TWICE DAILY active Not Available Not Available No t Available losartan 25 mg tablet active Not [...] Not Available Not Available Not Avai lable albuterol sulfate HFA 90 mcg/actuatio n aerosol inhaler INHALE 2 PUFFS BY MOUTH FOUR TIMES DAILY FOR 10 DAYS NEEDED FOR COUGH active Not Available Not Available No t Available ferrous sulfate 325 mg (65 mg iron) [...] Not Available Not Available No t Available simethicone 80 mg chewable tablet active Not Available Not Available Not Available cyclobenzapr ine 5 mg tablet TAKE 1 TABLET BY MOUTH THREE TIMES DAILY FOR 4 DAYS active Not Available Not Available N ot Available duloxetine 20 mg capsule,mario alberto yed release active Not Available Not Available Not Available FeroSul 325 mg (65 mg iron) tablet [...] active Not Available Not Available Not Available guaifenesin ER 600 mg tablet, extended release 12 hr TAKE 1 TABLET BY MOUTH EVERY 12 HOURS FOR 10 DAYS FOR COUGH active Not Available Not Available No t Available Breo Ellipta 200 mcg-25 mcg/dose powder [...] /min 100 % 100 % 98.7 [degF] 76392.5 84 g 154 mm[Hg] 75 mm[Hg] Not Available [facility]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 Functional Status None recorded. Mental Status None recorded. Family History Nothing Reported. Medical History No medical history recorded. Past Encounters Encounter ID Performer Location Encounter Start Date Encounter Closed Date Diagnosis/Indication Diagnosis SNOMED-CT Code Diagnosis ICD10 Code [id number] Uziel Crowe MD [facility] - [facility] [address] [place] [phone] 01/27/2024 17:55:12 01/28/2024 08:54:57 Low back pain 981917676 M54.50 Health Concerns Section Related Observation LastModified by Organization Detai ls LastModified Time None Recorded Concern Status LastModified by Organization Details LastModified Time None Recorded Payers Encounter Date Sequence Insurance Name Policy Number Policy Escamilla Covered Member ID Escamilla Member ID Guarantor Name 01/27/2024 1 [facility] - DOS ON OR AFTER 2022 - DUAL ELIGIBLE - [facility] OPTIONS AND ONE CARE (MEDICARE REPLACEMENT/ADV ANTAGE - HMO) Pal Da Silva [id number] Pal Da Silva Notes Date Note Type [...] ................... ................... ................... ................... ................... ................... ........ [facility] Nurse Triage Notes (Irene Payne): Chief Complaints: Back pain PMH: Congestive Heart Failure, COPD/Asthma, Hypertension, Severe Persistent Mental Illness (SPMI), Arrhythmias (e.g., Atrial Fibrillation), Coronary Artery Disease, Sleep Apnea, Stroke, Osteoarthritis, Cholecystectomy, Depression Comments: HPI reviewed- NE ................... ................... ................... ................... ................... ................... ................... ........ Mixer Operator Raw Salt Note From Mark Brock: Smartcare visit for male pt. Pt presents lying supine in bed with . Pt reports 8 days of severe lumbar back pain with a couple of ED visits for same issue. Pt has been diagnosed with paraspinal muscle sprain and prescribed lidocaine patches and tylenol. Pt also given some tramadol though unspecified person from [facility] called him and told him not to take it. V/S taken as listed. Pt afebrile. Pt had severe right lumbar pain and tenderness. No external signs of injury discoloration etc. [place] [facility] [place] Cro[place] who advised pt can take toke of tramadol, try hot compresses, and follow up with PCP. Reviewed red flags for ED. Pt education provided. ................... ................... ................... ................... ................... ................... ................... ........ [facility] Consulted: Uziel Crowe ................... ................... ................... ................... ................... ................... ................... ........ Disposition: Fulfilled Uziel Crowe MD [address] [facility],[address], [place], [phone], [facility] 01/27/2024 22:26:07
--- OUTSIDE RECORDS SUMMARY | 2024-02-16 14:51 | XMS_ITS | Continuity of Care Document ---
Author Organization [employer] Address [address] [place] [phone] Care Team Providers Care Professional Architect Name Role Phone HIM CCA OTHER KISHORE ROBERSON Primary Care Provider Assessment Encounter Date Assessment Date Assessment LastModified by Organization Details LastModified Time 02/07/2024 02/07/2024 I have reviewed and agree with the assessment and plan as documented by the data communications analyst. I provided real time medical direction for this encounter and was immediately available to provide additional phone based assistance as needed. History as noted by data communications analyst. Pt with history of COPD, CHF, Afib on AC. Pt is s/p fall and recent admit to [facility] 6 days ago fro Afib with RVR and d/c home 2 days ago. He was already on AC for his Afib but was started on amiodarone which he continues to take. Pt with 2 complaints today. He reports a non productive cough x several days. No CP or SOB. No fevers or chills. Pt also has noted dysuria x several days, since the hospitalization. No hematuria. No abdominal or flank pain. No nausea or vomiting. On exam, pt appears comfortable, no distress. Vitals normal, afebrile, O2 sat 96% RA. Lungs with mild b/l rhonchi and wheezing. Abdomen soft, non tender. No CVA tenderness. Rapid Covid and Flu both negative. Urine dip: 3+ leukocytes, + Nitrite, Neg blood Impression: Pt with what appears to be an acute UTI as well as bronchitis with mild exacerbation of COPD. Covid and Flu both negative. Urine dip is c/w UTI. He is medicated with a DuoNeb treatment by medic. Urine culture will be sent to [facility]. Pt has albuterol and Brio MDI. Pt is instructed to increase his albuterol MDI to 2 puffs qid. He is also prescribed cefpodoxime 200 mg q12H x7 days to start today. Pt also prescribed guaifenisen 600mg bid for his cough as well. New albuterol MDI also prescribed. Pt is already taking a taper of methylprednisolone for unclear reasons that was started several weeks ago, so will not prescribe any more corticosteroids at this time. Pt and instructed to call and f/u with his primary care team in the next 1-2 days to let them know how he is feeling. They are also told that he should present to the ED for evaluation if he develops any worsening cough, any SOB, any fevers/chills or any vomiting. To Primary Care team: Please call and follow up with this patient in 1-2 days to see how he is feeling and responding to treatment plan. Results of urine Cx sent to [facility] today will also have to be checked. btils Not available 02/07/2024 14:19:35 Plan of Treatment Reminders Order Date Submit Date Provider Last Modified By Organization Details Last Modified Time Details Appointments Urgent Care 2023 01:01P Sophia Castillo MD Not available Not available Not available Lab culture, urine 2023 024 [facility], [address], [place], [phone], 02/08/2024 20:09:15 urinalysi s, dipstick 2023 024 btils Main - [facility], [address] [place] [address], [phone], 02/07/2024 13:33:15 rapid SARS CoV 2 Ag, QL IA, respirato ry specimen 2023 024 [facility] - [facility], [address] [place] [address], [phone], 02/07/2024 13:33:15 rapid flu (A+B) 2023 024 [facility] - [facility], [address] [place] [address], [phone], 02/07/2024 13:33:15 Referral None recorded. Procedures None recorded. Surgeries None recorded. Imaging None recorded. Medication Orders cefpodoxi me 200 mg tablet 2023 [facility][id number], [address], [place], [phone], 02/07/2024 13:33:20 ipratropi um 0.5 mg-albute rol 3 mg (2.5 mg base)/3 mL nebulizat ion soln 2023 [facility], [address] [facility], [place], [address], 02/07/2024 13:33:15 guaifenes in ER 600 mg tablet, extended release 12 hr 2023 [facility] #65159, [address], [place], [phone], 02/07/2024 13:37:50 albuterol sulfate HFA 90 mcg/actua tion aerosol inhaler 2023 [facility] #02081, [address], [place], [phone], 02/07/2024 13:40:51 Patient TargetsNo targets recorded. Patient InstructionsNo instructions recorded. Reason for Referral None Reported. Results Created Date Observation Date Name Description Value Unit Range Abnormal Flag Note LastModifiedBy Organization Detail LastModifiedTime 02/07/20 24 02/07/2024 rapid flu (A+B) Flu negati ve Not Available [facility] [address] [place] [address], [phone], 02/07/2024 13:28:35 02/07/20 24 02/07/2024 rapid SARS CoV 2 Ag, QL IA, respi rator y speci men rapid SARS CoV 2 Ag, QL IA, respiratory specimen negati ve Not Available [facility] [address] [place] [address], [phone], 02/07/2024 13:28:29 Result Notes None recorded. Medical Equipment None Reported. Allergies Allergen ID Allergen Name Allergen Category Reaction Reaction Severity Criticality Documentation Date Start Date Code Code System Note Provider Name and Address Organization Details Recorded Time 937 dabigatra n etexilate medicatio n Not available Not available Not available 10/22/2021 73312 42 RxNorm Not Available [facility] - production 4 12:15:20 938 Product containin g angiotens in-conver ting enzyme inhibitor (product) medicatio n Not available Not available Not available 10/22/2021 81883 009 SNOMED Arti Messina MD [address] [facility],[address], [place], [phone] [place] [address] [employer] 2 17:14:14 939 ezetimibe medicatio n Not available Not available Not available 10/22/2021 26669 8 RxNorm Not Available [facility] - production 4 16:01:50 940 apixaban medicatio n Not available Not available Not available 10/22/2021 07140 30 RxNorm Not Available [facility] - production 4 16:01:50 941 Lipitor medicatio n Not available Not available Not available 10/22/2021 14216 5 [facility] 12:15:20 Medications Name Sig [...] Available N ot Available Vitals Date Recorded Respiratory rate Heart rate Body temperature Oxygen saturation Oxygen saturation in Arterial blood by Pulse oximetry Systolic blood pressure Diastolic blood pressure Provider Name and Address Organization Details Last Updated DateTime 4 18 /min 63 /min 97.2 [degF] 96 % 96 % 131 mm[Hg] 74 mm[Hg] Not Available [facility] - production 4 13:22:28 Social History None recorded. Functional Status None recorded. Mental Status None recorded. Family History Nothing Reported. Medical History No medical history recorded. Past Encounters Encounter ID Performer Location Encounter Start Date Encounter Closed Date Diagnosis/Indication Diagnosis SNOMED-CT Code Diagnosis ICD10 Code [id number] Uziel Crowe MD Main - [address] [phone] 01/27/2024 17:55:12 01/28/2024 08:54:57 Low back pain 606478942 M54.50 [id number] Kurt Pineda MD Main - [address] [phone] 02/07/2024 13:22:25 02/08/2024 11:51:26 Urinary symptoms [id number] R39.9 Cough 61677157 R05.9 Health Concerns Section Related Observation LastModified by Organization Detai ls LastModified Time None Recorded Concern Status LastModified by Organization Details LastModified Time None Recorded Payers Encounter Date Sequence Insurance Name Policy Number Policy Escamilla Covered Member ID Escamilla Member ID Guarantor Name 02/07/2024 1 [facility] - DOS ON OR AFTER 2022 - DUAL ELIGIBLE - [place] OPTIONS AND ONE CARE (MEDICARE REPLACEMENT/ADV ANTAGE - HMO) Pal Da Silva [id number] Pal Da Silva Notes Date Note Type Note Provider Name and Address Organization Details Recorded Time 02/07/2024 text/html This was a supervised home visit with data communications analyst Lalit Lubin. [facility] Nurse Triage Notes (Chaitanya Myles - RN): Reason For Request: Pt's spouse reporting that her recently was discharged from the hospital>spouse reporting cough, congestion and pain with urinationDenies: Increased work of breathing/labored ? with or without fever Unable to speak in full sentences without distress Discoloration of skin -cyanosis Needs to sleep sitting up, can? t catch breath Shortness of breath in setting of confusion Chief Complaints: Cough, Urinary symptomsPMH: Congestive Heart Failure, COPD/Asthma, Hypertension, Severe Persistent Mental Illness (SPMI), Arrhythmias (e.g., Atrial Fibrillation), Coronary Artery Disease, Sleep Apnea, Stroke, Osteoarthritis, Cholecystectomy, DepressionComments: Stencil Typist verified the patient's name//address and phone number. Pt's calling reporting pt having a lot of cough, I can feel a whistle . reports pt has a lot of phlegm but cannot bring it up. also reports pt c/o of pain with urination. Pt's reports pt was recently d/c'd home from the hospital after an admission following a fall and elevated HR. reports she has been elevating HOB for patient; also reports pt able to speak in full, complete sentences at time of call. Education provided on the response time and the patient was advised to monitor reported s/s and seek emergency treatment if needed -Alona Myles RN Chocolate Temperer Organization Information for Lalit Lubin - [employer] Legal Name: [facility] [address] [facility], [place] [id number], Medical Director: [facility] No[facility] [id number] Chocolate Temperer POC Test Results from Lalit Lubin - ALS Urine Dipstick (13:20:10)Urine leukocytes: 3+ LEUUrine nitrites: + NITUrine urobilinogen: - UROUrine protein: 1+ PROUrine pH: 5.0 pHUrine blood: - BLOUrine specific gravity: 1.015 SGUrine ketones: - KETUrine bilirubin: - BILUrine glucose: - GLU Rapid influenza antigen (13:20:11)Flu: - Rapid COVID antigen (13:20:12)COVID: - .................... .................... .................... .................... .................... .................... .................... . Chocolate Temperer Note From Lalit Lubin: This 88-year-old male with a history including but not limited to CHF, COPD, HTN, depression, atrial fibrillation, CAD, stroke, OA [facility] and well known to myself. His requested a visit today to address a dry cough and dysuria for several days. She tells me that he fell at home last Thursday and was taken to [facility]. He was found to be in atrial fibrillation with RVR and was discharged home on Thursday with an amiodarone prescription. Patient denies any chest pain, severe shortness of breath, abdominal discomfort, flank pain, hematuria, fevers, nausea, vomiting, diarrhea.Patient presents awake and alert, and no acute distress, speaking full sentences. His vital signs are reasonably stable and he is afebrile. Nonfocal neurological exam. Diffuse rhonchi. Abdomen is soft, nontender, nondistended. No CVA tenderness. No lower extremity edema. Rapid COVID and flu testing are both negative. Urine dip is indicative of infection. Urine culture is sent to [facility].I treated this patient with a I provided educationduoneb. On the patient's prescriptions and the importance of primary care follow-up the next two days. I instructed the patient and the present to the emergency department for any new or worsening severe symptoms such as chest pain, severe shortness of breath, high fever, altered mental status. The patient and his were given the opportunity to ask questions and are agreeable to this plan. [facility] Orders: culture, urine: Performed .................... .................... .................... .................... .................... .................... .................... . [facility] Consulted: Kurt Pineda .................... .................... .................... .................... .................... .................... .................... . Disposition: Fulfilled Kurt Pineda MD [address] [facility],[address], [place], [phone], KAREN - JILL HOLT 02/07/2024 14:19:47
--- OUTSIDE RECORDS SUMMARY | 2024-02-16 14:51 | XMS_ITS | Data Portability ---
Author Organization [employer] [place] [employer] [facility] [employer] Address [address] [place] [phone] Care Team Providers Care Assessment Nurse Name Role Phone HIM CCA OTHER KISHORE ROBERSON Primary Care Provider Assessment Encounter Date Assessment Date Assessment LastModified by Organization Details LastModified Time 02/07/2024 02/07/2024 I have reviewed and agree with the assessment and plan as documented by the noc technician. I provided real time medical direction for this encounter and was immediately available to provide additional phone based assistance as needed. History as noted by noc technician. Pt with history of COPD, CHF, Afib on AC. Pt is s/p fall and recent admit to [facility] 6 days ago fro Afib with RVR [...] Not available Lab culture, urine 2023 024 GLADYS [facility], [address], [place], [address], 02/08/2024 20:09:15 urinalysi s, dipstick 2023 024 btils Main - [facility], [address] [place] [address], [address], 02/07/2024 13:33:15 rapid SARS CoV 2 Ag, QL IA, respirato ry specimen 2023 024 btils Main - [facility], [address] [place] [address], [address], 02/07/2024 13:33:15 rapid flu (A+B) 2023 024 btils Main - [facility], [address] [place] [address], [address], 02/07/2024 13:33:15 Referral None recorded. Procedures None recorded. Surgeries None recorded. Imaging electroca rdiogram 2023 indiasaranya [facility], [address] [facility], [place], [address], 12/11/2023 23:09:43 Medication Orders cephalexi n 500 mg capsule 2023 [facility], [address] [place], [address], 12/11/2023 21:36:43 cephalexi n 500 mg capsule 2023 [facility], [address] [place], [address], 12/11/2023 22:52:32 cyclobenz aprine 5 mg tablet 2023 GLADYS [facility]12, [facility] [place], [place], [id number], 01/27/2024 17:57:09 cefpodoxi me 200 mg tablet 2023 [facility] #19297, [address] [place], [place], [id number], 02/07/2024 13:33:20 ipratropi um 0.5 mg-albute rol 3 mg (2.5 mg base)/3 mL nebulizat ion soln [facility], [address] [place], [address], 02/07/2024 13:33:15 guaifenes in ER 600 mg tablet, extended release 12 hr 2023 GLADYS [facility] #32222, [address] [place], [place], [id number], 02/07/2024 13:37:50 albuterol sulfate HFA 90 mcg/actua tion aerosol inhaler 2023 024 [facility]54661, [address] [place], [place], [id number], 02/07/2024 13:40:51 Patient TargetsNo targets recorded. Patient InstructionsNo instructions recorded. Reason for Referral None Reported. Results Created Date Observation Date Name Description Value Unit Range Abnormal Flag Note LastModifiedBy Organization Detail LastModifiedTime 10/21/19 24 10/21/2023 rapid flu (A+B) Flu negati ve Not Available Main - [facility] ed [address] [place] [address], [address], 10/21/2023 16:11:34 10/21/19 24 10/21/2023 rapid SARS CoV 2 Ag, QL IA, respi rator y speci men rapid SARS CoV 2 Ag, QL IA, respiratory specimen negati ve Not Available Main - [facility] ed [address] [place] [address], [address], 10/21/2023 16:05:52 10/27/19 24 10/27/2023 rapid flu (A+B) Flu negati ve Not Available Main - [facility] ed [address] [place] [address], [address], 10/27/2023 14:34:47 10/27/19 24 10/27/2023 rapid SARS CoV 2 Ag, QL IA, respi rator y speci men rapid SARS CoV 2 Ag, QL IA, respiratory specimen negati ve Not Available Main - [facility] ed [address] [place] [address], [address], 10/27/2023 14:34:45 02/07/20 24 02/09/2024 URINE CULTU REKAREN urine culture, routine Final report abnormal Not Available [facility] ([facility]) [address] [facility], [place], [address], 02/09/2024 14:06:11 02/07/20 24 02/09/2024 URINE CULTU RE, ROUTI NE result 1 Escher ichia coli abnormal Great er than 100,0 00 colon y formi ng units per mL Cefaz mikey <=4 ug/mL Cefaz mikey with an MELECIO <=16 predi cts susce ptibi lity to the oral agent s cefac jose, cefdi michelle, cefpo doxim e, cefpr ozil, cefur oxime , cepha lexin , and lorac arbef when used for thera py of uncom plica ambrocio urina ry tract infec tions due to E. coli, Klebs iella pneum oniae , and Prote us mirab ilis. Not Available [facility] ([facility]) [address] [facility], [place], [address], 02/09/2024 14:06:11 02/07/20 24 02/09/2024 URINE CULTU REKAREN NE antimicrobia l susceptibili ty Commen t S = Susce ptibl e; I = Inter media te; R = Resis tant P = Posit francis; N = Negat francis MICS are expre ssed in micro grams per mL Antib iotic RSLT# 1 RSLT# 2 RSLT# 3 RSLT# 4 Amoxi cilli n/Cla vulan ic Acid S Ampic illin S Cefep jef S Ceftr iaxon e S Cefur oxime S Cipro floxa blanche S Ertap enem S Genta micin S Imipe nem S Levof loxac in S Merop enem S Nitro furan toin S Piper acill in/Ta zobac read S Tetra cycli ne S Tobra mycin S Trime thopr im/Ross lfa S Not Available [facility] ([facility]) [address] [facility], [place], [address], 02/09/2024 14:06:11 02/07/20 24 02/07/2024 rapid flu (A+B) Flu negati ve Not Available Main - [facility] ed [address] [place] [address], [address], 02/07/2024 13:28:35 02/07/20 24 02/07/2024 rapid SARS CoV 2 Ag, QL IA, respi rator y speci men rapid SARS CoV 2 Ag, QL IA, respiratory specimen negati ve Not Available [facility] ed [address] [place] [address], [address], 02/07/2024 13:28:29 12/11/19 24 12/11/2023 peggy bucio am No observ ation record ed. [address], [address], 12/11/2023 23:09:40 Result Notes None recorded. Procedures Surgical History None recorded. Imaging Results Imaging Date Name Status LastModified by Organization Details LastModified Time 12/11/2023 electrocardiogram completed [address], [address], 12/11/2023 23:09:40 Procedure Notes None recorded. Medical Equipment None Reported. Allergies Allergen ID Allergen Name Allergen Category Reaction Reaction Severity Criticality Documentation Date Start Date Code Code System Note Provider Name and Address Organization Details Recorded Time 937 dabigatra n etexilate medicatio n Not available Not available Not available 10/22/2021 93658 42 RxNorm Not Available [facility] - [facility] 4 12:15:20 938 Product containin g angiotens in-conver ting enzyme inhibitor (product) medicatio n Not available Not available Not available 10/22/2021 93602 009 SNOMED Arti Messina MD [address] [place] [address],[address], [place], [address] , [facility] [employer] 2 17:14:14 939 ezetimibe medicatio n Not available Not available Not available 10/22/2021 22926 8 RxNorm Not Available [facility] - [facility] 4 16:01:50 940 apixaban medicatio n Not available Not available Not available 10/22/2021 50286 30 RxNorm Not Available [facility] - [facility] 4 16:01:50 941 Lipitor medicatio n Not available Not available Not available 10/22/2021 87029 5 RxNorm Not Available [facility] - production 12:15:20 Medications Name Sig Start Date Stop [...] Details Last Updated DateTime 4 98.4 [degF] 46197.3 6 g 18 /min 78 /min 99 % 99 % 157.48 cm 132 mm[Hg] 74 mm[Hg] Not Available [facility] [employer] 4 18:19:34 Date Recorded Oxygen saturation Oxygen saturation in Arterial blood by Pulse oximetry Body temperature Body height Heart rate Body weight Respiratory rate Systolic blood pressure Diastolic blood pressure Provider Name and Address Organization Details Last Updated DateTime 4 98 % 98 % 98.1 [degF] 157.48 cm 75 /min 15582.4 g 19 /min 85 mm[Hg] 52 mm[Hg] Not Available [employer] [facility] [employer] 4 21:22:40 Date Recorded Heart rate Body height Respiratory rate Oxygen saturation Oxygen saturation in Arterial blood by Pulse oximetry Body temperature Body weight Systolic blood pressure Diastolic blood pressure Provider Name and Address Organization Details Last Updated DateTime 4 70 /min 157.48 cm 16 /min 100 % 100 % 98.7 [degF] 53657.5 84 g 154 mm[Hg] 75 mm[Hg] Not Available [facility] [employer] 4 17:55:15 Date Recorded Respiratory rate Heart rate Body temperature Oxygen saturation Oxygen saturation in Arterial blood by Pulse oximetry Systolic blood pressure Diastolic blood pressure Provider Name and Address Organization Details Last Updated DateTime 4 18 /min 63 /min 97.2 [degF] 96 % 96 % 131 mm[Hg] 74 mm[Hg] Not Available [facility] [employer] 4 13:22:28 Date Recorded Respiratory rate Heart rate Oxygen saturation Oxygen saturation in Arterial blood by Pulse oximetry Body temperature Systolic blood pressure Diastolic blood pressure Provider Name and Address Organization Details Last Updated DateTime 22 /min 80 /min 97 % 97 % 99.9 [degF] 114 mm[Hg] 63 mm[Hg] Not Available [facility] - [facility] 13:01:39 Social History None recorded. Functional Status None recorded. Mental Status None recorded. Family History Nothing Reported. Medical History No medical history recorded. Past Encounters Encounter ID Performer Location Encounter Start Date Encounter Closed Date Diagnosis/Indication Diagnosis SNOMED-CT Code Diagnosis ICD10 Code [id number] Emelina Hope MD Main - [facility] [address] [place] [phone] 09/03/2021 13:58:40 10/29/2021 16:07:36 Dizziness 330179199 R42 Acute on c hronic diastolic heart failure 109122302 I50.33 [id number] Arti Messina MD Main - [facility] [address] [place] [phone] 10/22/2021 16:32:35 11/06/2021 11:46:10 Right upper quadrant pain 157128387 R10.11 [id number] Emelina Hope MD Main - [facility] [address] [place] [phone] 12/14/2021 11:53:55 12/16/2021 14:22:24 Left lower quadrant pain 401423044 R10.32 [id number] Valentina Chavarria MD Main - [facility] [address] [place] [phone] 12/18/2021 18:55:27 12/24/2021 15:13:27 Dyspnea 380114290 R06.00 [id number] Laxmi Gomez MD Main - [facility] [address] [place] [phone] 02/19/2022 11:51:07 02/21/2022 13:24:44 Abdominal pain 21014507 R10.9 [id number] Kurt Pineda MD Main - [facility] [address] [place] [address] 06/09/2022 11:05:58 06/10/2022 11:39:18 Left lower quadrant pain 980275001 R10.32 [id number] Marcelina Ruiz MD Main - [facility] [address] [place] [phone] 06/12/2022 11:29:39 06/13/2022 09:48:14 Acute on chronic diastolic heart failure 595827070 I50.33 [id number] Kurt Pineda MD Main - [facility] [address] [place] [phone] 06/24/2022 10:31:23 06/26/2022 09:21:01 Left lower quadrant pain 437852516 R10.32 [id number] ROSALINDA JUNIOR MD Main - [facility] [address] [place], [place] [phone] 08/09/2022 14:57:47 08/09/2022 23:14:31 Left upper quadrant pain 660907169 R10.12 [id number] Melani Cespedes MD Main - [facility] [address] [place], [place] [address] 0 08/11/2022 11:13:36 08/14/2022 15:12:40 Abdominal pain 74995414 R10.9 [id number] Arti Messina MD Main - [facility] [address] [place] [address] 0 09/05/2022 11:41:29 09/07/2022 21:23:47 Essential hypertension 09129501 I10 [id number] Sarita Guzman MD Main - [facility] [address] [place], [place] [phone] 11/26/2022 13:49:56 11/27/2022 00:29:17 Low blood pressure 26325525 I95.9 [id number] Karishma Sofia MD Main - [facility] [address] [place] [phone] 01/19/2023 20:46:48 01/19/2023 22:55:13 Diverticulitis 423546165 K57.92 [id number] Arti Messina MD Main - [facility] [address] [place] [phone] 01/26/2023 12:04:24 01/27/2023 09:25:45 Palpitations 05408223 R00.2 [id number] Salo Arriaza MD Main - [facility] [address] [place] [phone] 02/20/2023 10:51:29 02/25/2023 14:22:46 Headache 98604830 R51.9 [id number] ROSALINDA JUNIOR MD Main - [facility] [address] [place], [place] [phone] 03/05/2023 16:47:27 03/05/2023 22:42:57 Pain in left lower limb 291254183 M79.605 [id number] Skyler Fajardo MD Main - [facility] [address] [place] [address] 03/27/2023 20:07:39 03/29/2023 13:03:35 Localized swelling of left lower leg 5296791777 2925606 R22.42 [id number] Skyler Fajardo MD Main - [facility] [address] [place] [address] 0 05/19/2023 17:26:54 05/19/2023 19:18:07 Congestive heart failure 08710719 I50.9 [id number] Skyler Fajardo MD Main - [facility] [address] [place], [place] [phone] 06/20/2023 17:24:02 06/21/2023 17:15:04 Generalized headache 700581464 R51.9 [id number] Melani Cespedes MD Main - [facility] [address] [place] [address] 07/13/2023 16:19:49 07/14/2023 17:29:31 Left lower quadrant pain 442200864 R10.32 [id number] Lance Guerrero MD Main - [facility] [address] [place], [place] [phone] 10/21/2023 16:04:17 10/21/2023 22:32:37 Viral upper respiratory tract infection 523524386 J06.9 [id number] Rachel Armstrong MD Main - [facility] [address] [place] [phone] 10/27/2023 14:33:08 10/27/2023 22:50:48 Upper respiratory infection 85348692 J06.9 [id number] Lance Guerrero MD Main - [facility] [address] [place] [phone] 11/09/2023 16:12:52 11/09/2023 20:35:57 Subconjunctival hemorrhage of right eye 2612729244 75473 H11.31 [id number] Melani Cespedes MD Main - [facility] [address] [place] [phone] 11/16/2023 18:19:32 11/16/2023 20:41:54 Cough 15688288 R05.9 [id number] EHSAN RODRIGUEZ MD Main - [facility] [address] [place] [address] 12/11/2023 21:22:23 12/12/2023 15:24:29 Cellulitis of toe of right foot 1733166953 L03.031 [id number] Uziel Crowe MD Main - [facility] [address] [place] [phone] 01/27/2024 17:55:12 01/28/2024 08:54:57 Low back pain 159905131 M54.50 [id number] Kurt Pineda MD Main - [facility] [address] [place] [phone] 02/07/2024 13:22:25 02/08/2024 11:51:26 Urinary symptoms 937773582 R39.9 Cough 42374578 R05.9 Health Concerns Section Related Observation LastModified by Organization Detai ls LastModified Time None Recorded Concern Status LastModified by Organization Details LastModified Time None Recorded Advance Directives Directive None Recorded Payers Encounter Date Sequence Insurance Name Policy Number Policy Escamilla Covered Member ID Escamilla Member ID Guarantor Name 11/16/2023 1 [facility] - DOS ON OR AFTER 2022 - DUAL ELIGIBLE - HALF-WAY OPTIONS AND ONE CARE (MEDICARE REPLACEMENT/ADV ANTAGE - HMO) Pal Da Silva [id number] Pal Da Silva 12/11/2023 1 [facility] - DOS ON OR AFTER 2022 - DUAL ELIGIBLE - HALF-WAY OPTIONS AND ONE CARE (MEDICARE REPLACEMENT/ADV ANTAGE - HMO) Pal Da Silva [id number] Pal Da Silva 01/27/2024 1 [facility] - DOS ON OR AFTER 2022 - DUAL ELIGIBLE - HALF-WAY OPTIONS AND ONE CARE (MEDICARE REPLACEMENT/ADV ANTAGE - HMO) Pal Da Silva [id number] Pal Da Silva 02/07/2024 1 [facility] [employer] - DOS ON OR AFTER 2022 - DUAL ELIGIBLE - HALF-WAY OPTIONS AND ONE CARE (MEDICARE REPLACEMENT/ADV ANTAGE - HMO) Pal Da Silva [id number] Pal Da Silva Notes Date Note Type [...] No fever. Speaking full sentences without difficulty .................... .................... .................... .................... .................... .................... .................... . Computer Service Technician Note From Thong Arshad: Dispatched to the [...] advises he has an appt with his table inspector tomorrow. Pt was found sitting on edge [...] Red flags discussed. all times are approx. .................... .................... .................... .................... .................... .................... .................... . Disposition: Ruthann Cespedes MD [address] [place] [address],[address], [place], [address], [employer] 11/16/2023 19:00:53 12/11/2023 text/html HPI: Patient with [...] any additional information to process this visit. Computer Service Technician Organization Information for Jonathan Espinoza Business Legal Name: [facility] [employer] Transportation Address: [address] [place] [address], [place] [address], [employer]: Billy OMALLEY No.: [id number] Computer Service Technician POC Test Results from Jonathan Espinoza EKG (21:20:36) EKG test performed. Attachments uploaded as part of this test result can be found under Documents section. .................... .................... .................... .................... .................... .................... .................... . Computer Service Technician Note From Jonathan Espinoza: Pt chief complaint [...] pt to be in a ventricularly paced rhythm.[facility] unable to acquire a IV access [...] .................... . Disposition: Fulfilled EHSAN RODRIGUEZ MD [address] [place] [address],[address], [place], [address], [employer] 12/11/2023 23:11:06 01/27/2024 text/html HPI: 88 yo [...] [facility] for pain relief and assesment today .................... .................... .................... .................... .................... .................... .................... . [facility] Nurse Triage Notes (Irene Payne): Chief Complaints: Back pain PMH: Congestive Heart Failure, COPD/Asthma, Hypertension, Severe Persistent Mental Illness (SPMI), Arrhythmias (e.g., Atrial Fibrillation), Coronary Artery Disease, Sleep Apnea, Stroke, Osteoarthritis, Cholecystectomy, Depression Comments: HPI reviewed- NE .................... .................... .................... .................... .................... .................... .................... . Computer Service Technician Note From Mark Brock: [facility] visit for male pt. Pt presents lying supine in bed with . Pt reports 8 days of severe lumbar back pain with a couple of ED visits for same issue. Pt has been diagnosed with paraspinal muscle sprain and prescribed lidocaine patches and tylenol. Pt also given some tramadol though unspecified person from [facility] called him and told him not to take it. V/S taken as listed. Pt afebrile. Pt had severe right lumbar pain and tenderness. No external signs of injury discoloration etc. Consulted with [facility] Dr. Crowe who advised pt can take toke of tramadol, try hot compresses, and follow up with PCP. Reviewed red flags for ED. Pt education provided. .................... .................... .................... .................... .................... .................... .................... . [facility] Consulted: Uziel Crowe .................... .................... .................... .................... .................... .................... .................... . Disposition: Fulfilled Uziel Crowe MD [address] [place] [address],[address], [place], [address], [employer] 01/27/2024 22:26:07 02/07/2024 text/html This was a supervised home visit with noc technician Lalit Lubin. [facility] Nurse Triage Notes (Chaitanya Myles - RN): [...] Disease, Sleep Apnea, Stroke, Osteoarthritis, Cholecystectomy, DepressionComments: Concrete Buster Operator verified the patient's name//address and phone number. [...] emergency treatment if needed -Alona Myles RN Computer Service Technician Organization Information for Lalit Lubin - [employer] Legal Name: [facility] TransportationAddres s: [address] [facility] [address] [facility], [place] [address], Medical Director: Billy Manzo [facility] No.: [id number] Computer Service Technician POC Test Results from Lalit Lubin - ALS Urine Dipstick (13:20:10)Urine leukocytes: 3+ LEUUrine nitrites: + NITUrine urobilinogen: - UROUrine protein: 1+ PROUrine pH: 5.0 pHUrine blood: - BLOUrine specific gravity: 1.015 SGUrine ketones: - KETUrine bilirubin: - BILUrine glucose: - GLU Rapid influenza antigen (13:20:11)Flu: - Rapid COVID antigen (13:20:12)COVID: - .................... .................... .................... .................... .................... .................... .................... . Computer Service Technician Note From Lalit Lubin: This 88-year-old male with a history including but not limited to CHF, COPD, HTN, depression, atrial fibrillation, CAD, stroke, OA is well known to [facility] and well known to myself. His requested a visit today to address a dry cough and dysuria for several days. She tells me that he fell at home last Thursday and was taken to [facility]. He was found to be in [...] of infection. Urine culture is sent to [facility]I treated this patient with a I provided [...] questions and are agreeable to this plan. [facility] Lab Orders: culture, urine: Performed .................... .................... .................... .................... .................... .................... .................... . [facility] Consulted: Kurt Pineda .................... .................... .................... .................... .................... .................... .................... . Disposition: Fulfilled Kurt Pineda MD [address] [facility],[address], [place], [address], [employer] 02/07/2024 14:19:47
--- OUTSIDE RECORDS SUMMARY | 2024-02-16 14:52 | XMS_ITS | Continuity of Care Document ---
Author Organization [facility] Address [address] [address]- Care Team Providers Care Evidence Specialist Name Role Phone Chuy ARMENTA, Crystal Cortes Primary Care Physician Encounter [facility] Date(s): 01/29/24 - 02/05/24 [facility] [address] [address]- Attending Physician: Shirley Mancilla Admitting Physician: Shirley Mancilla Referring Physician: Shirley Mancilla Encounter Type: Office Visit Allergies, Adverse Reactions, Alerts Substance Criticality Severity [...] Refills, Maintenance, Tablet, Route to Pharmacy Electronically, [id number], [facility] Start Date: 12/05/16 Stop [...] Unit: tablet Repeat number: 1 Potassium Chloride (Nux-Xkeg-Bzh 10) 10 mEq oral tablet, extended release [...] Active Chronic pain Confirmed Active CAD in pala artery Confirmed Active De Quervain's tenosynovitis Confirmed Active GERD (gastroesophageal reflux disease) Confirmed Active 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 AR (myocardial infarction) 1 Confirmed Active Obstructive sleep [...] Team Personnel Name: Raquel Carlos RN Position: [facility] SN RN Member Role: Primary Care Nurse Name: Crystal Vera MD Position: [facility] Physician - Primary Care Member Role: PCP Address: [address] [place] [address] [employer]: Name: Sofiya Ann RN Position: [facility] RN Member Role: Primary Care Nurse Name: Christelle Chamberlain RN Position: [facility] RN Member Role: Primary Care Nurse Name: Arti Nava RN Position: [facility] RN Member Role: Primary Care Nurse Name: Kimmie Montague RN Position: [facility] RN Member Role: Primary Care Nurse Name: Irene Schwarz RN Position: [facility] RN Member Role: Primary Care Nurse Name: Karmen Fajardo RN Position: [facility] SN RN Member Role: Primary Care Nurse Care Team Related Persons Name: AGGIE TAYLOR Insurance Providers Guarantor name: MIKE TAYLOR Health Plan Information #: 1 Payer: NA Member Number: [id number] Policy Number: NA Group Number: [facility] Health Plan Information #: 2 Payer: NA Member Number: [id number] Policy Number: NA Group Number: NA
--- OUTSIDE RECORDS SUMMARY | 2024-02-16 14:52 | XMS_ITS | Continuity of Care Document ---
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 Plan of Treatment Reminders Order Date Submit Date Provider Last Modified By Organization Details Last Modified Time Details Appointments Urgent Care 2023 01:01P Sophia Castillo MD Not available Not available Not available Lab None recorded. Referral None recorded. Procedures None recorded. Surgeries None recorded. Imaging electroca rdiogram 2023 [facility], [address] [place] [address], [phone], 12/11/2023 23:09:43 Medication Orders cephalexi n 500 mg capsule 2023 024 [facility] [place], [phone], 12/11/2023 21:36:43 cephalexi n 500 mg capsule 2023 024 [facility] [place], [address], 12/11/2023 22:52:32 Patient TargetsNo targets recorded. Patient InstructionsNo instructions recorded. Reason for Referral None Reported. Results Created Date Observation Date Name Description Value Unit Range Abnormal Flag Note LastModifiedBy Organization Detail LastModifiedTime 12/11/1912/11/2023 elect anuel diogr am No observ ation record ed. [facility] [address] [place] [address], [phone], 12/11/2023 23:09:40 Result Notes None recorded. Procedures Surgical History None recorded. Imaging Results Imaging Date Name Status LastModified by Organization Details LastModified Time 12/11/2023 electrocardiogram completed [address], [phone], 12/11/2023 23:09:40 Procedure Notes None recorded. Medical Equipment None Reported. Allergies Allergen ID Allergen Name Allergen Category Reaction Reaction Severity Criticality Documentation Date Start Date Code Code System Note Provider Name and Address Organization Details Recorded Time 937 dabigatra n etexilate medicatio n Not available Not available Not available 10/22/2021 29684 42 RxNorm Not Available [facility] - production 4 12:15:20 938 Product containin g angiotens in-conver ting enzyme inhibitor (product) medicatio n Not available Not available Not available 10/22/2021 23815 009 SNOMED Arti Messina MD [address] [place] [address],[address], [place], [phone] [place] [address] [employer] 2 17:14:14 939 ezetimibe medicatio n Not available Not available Not available 10/22/2021 44891 8 RxNorm Not Available [facility] 16:01:50 940 apixaban medicatio n Not available Not available Not available 10/22/2021 30794 30 RxNorm Not Available [facility] 4 16:01:50 941 Lipitor medicatio n Not available Not available Not available 10/22/2021 47984 5 RxNorm Not Available [facility] - production 4 12:15:20 Medications Name Sig [...] and Address Organization Details Last Updated DateTime 98 % 98 % 98.1 [degF] 157.48 cm 75 /min 53125.4 g 19 /min 85 mm[Hg] 52 mm[Hg] Not Available [facility] - production 21:22:40 Social History None recorded. Functional Status None recorded. Mental Status None recorded. Family History Nothing Reported. Medical History No medical history recorded. Past Encounters Encounter ID Performer Location Encounter Start Date Encounter Closed Date Diagnosis/Indication Diagnosis SNOMED-CT Code Diagnosis ICD10 Code [id number] Melani Cespedes MD [facility] [address] [place] [phone] 11/16/2023 18:19:32 11/16/2023 20:41:54 Cough 49747453 R05.9 [id number] EHSAN RODRIGUEZ MD [facility] [address] [place] [phone] 12/11/2023 21:22:23 12/12/2023 15:24:29 Cellulitis of toe of right foot 2298796930 L03.031 Health Concerns Section Related Observation LastModified by Organization Detai ls LastModified Time None Recorded Concern Status LastModified by Organization Details LastModified Time None Recorded Payers Encounter Date Sequence Insurance Name Policy Number Policy Escamilla Covered Member ID Escamilla Member ID Guarantor Name 12/11/2023 1 [facility] - DOS ON OR AFTER 2022 - DUAL ELIGIBLE - CARE HOME OPTIONS AND ONE CARE (MEDICARE REPLACEMENT/ADV ANTAGE - HMO) Pal Da Silva [id number] Pal Da Silva Notes Date Note Type [...] any additional information to process this visit. [employer] Organization Information for Jonathan Espinoza flatev Business Legal Name: [facility] Address: [address] [place] [address], Property Manager: Billy Manzo MD [place] No.: [id number] [employer] POC Test Results from Jonathan Espinoza [facility] EKG (21:20:36) EKG test performed. Attachments uploaded as part of this test result can be found under Documents section. .................... .................... .................... .................... .................... .................... .................... . [employer] Note From Jonathan Espinoza: Pt chief complaint [...] pt to be in a ventricularly paced rhythm.[facility] unable to acquire a IV access [...] .................... .................... .................... .................... . Disposition: Ruthann RODRIGUEZ MD [address] [facility],[address], [place], [phone], [facility] - [employer] 12/11/2023 23:11:06
--- NOTE | 2024-02-16 16:10 | ED.GENADULT ---
HPI - General Adult General Chief complaint: Behavioral Concerns Stated complaint: DELUSIONS/HALLUCINATIONS,SI,FALL/HIT HEAD RECENTLY Time Seen by Provider: 02/16/24 16:01 Source: patient, RN notes reviewed and old records reviewed Mode of arrival: ambulatory Limitations: no limitations History of Present Illness ED Provider: Kalyan HPI narrative: 88-year-old male with past medical history significant for atrial fibrillation on Eliquis, 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 The patient is presenting from home. He complains of lower back pain. He reports he has fallen twice since October but is unable to explain exactly when his last fall was I spoke to his , [place] who is listed as his healthcare proxy. The patient was home, he has not been himself since being admitted to this hospital 2 weeks ago. She reports that he was somewhat better last week. However since yesterday he has had increasing fatigue, he has been more confused He has not been eating or drinking anything today and was refusing his medications. Per his he has been talking to people who are not there. The patient's called his primary doctor and they were able to have a jig operator evaluate the patient. It was reported that he was not following commands and therefore was transferred to the hospital for evaluation He has not had any reported falls since 02/01/2024 when he was seen in this hospital The patient is alert and oriented x2, he knows the date and his name but does not know where he is Related Data Home Medications ?Medication ?Instructions ?Recorded ?Confirmed atorvastatin 80 mg tablet 80 mg PO BEDTIME 06/03/20 02/17/24 carvedilol 25 mg tablet 25 mg PO BID 12/04/20 02/17/24 potassium chloride 10 mEq 1 tab PO BID 11/14/21 02/17/24 tablet,extended release fluticasone furoate 200 1 inh inhalation DAILY 12/06/22 02/17/24 mcg-vilanterol 25 mcg/dose inhalation powder (Breo Ellipta) ferrous sulfate 325 mg (65 mg 325 mg PO MOWEFR 12/07/22 02/17/24 iron) tablet (FeroSul) fluticasone propionate 50 1 spray intranasal DAILY PRN 12/07/22 02/17/24 mcg/actuation nasal Allergy Symptoms spray,suspension aspirin 81 mg tablet,delayed 81 mg PO DAILY 08/17/23 02/17/24 release ketorolac 0.5 % eye drops 1 drp ophthalmic (eye) BID 08/17/23 02/17/24 verapamil 120 mg tablet,extended 120 mg PO DAILY 08/17/23 02/17/24 release acetaminophen 650 mg 1,300 mg PO Q8H PRN Pain 02/01/24 02/17/24 tablet,extended release (Tylenol Arthritis Pain) duloxetine 20 mg capsule,delayed 20 mg PO DAILY 02/01/24 02/17/24 release gabapentin 100 mg capsule 100 mg PO BID 02/01/24 02/17/24 methylprednisolone 4 mg tablet 2 mg PO DAILY@1200 02/01/24 02/17/24 methylprednisolone 4 mg tablet 4 mg PO BID 02/01/24 02/17/24 dsuqozfm-jvo-twmyt acid 0.4 1 tab PO DAILY 02/01/24 02/17/24 mg-lycopene 300 mcg-lutein 250 mcg tablet (CertaVite Senior) rivaroxaban 20 mg tablet (Xarelto) 20 mg PO DAILY@1700 02/01/24 02/17/24 albuterol sulfate 2.5 mg/3 mL 2.5 mg inhalation Q4H PRN 02/17/24 02/17/24 (0.083 %) solution for nebulization Shortness Of Breath Or Wheezing amiodarone 200 mg tablet 200 mg PO DAILY 02/17/24 02/17/24 Previous Rx's ?Medication ?Instructions ?Recorded tamsulosin 0.4 mg capsule 0.4 mg PO DAILY 90 days #90 caps 03/29/21 furosemide 40 mg tablet 40 mg PO DAILY #30 tabs 12/05/22 docusate sodium 100 mg capsule 100 mg PO BID #60 caps 05/20/23 sucralfate 100 mg/mL oral 10 ml PO BEDTIME #400 mL 11/16/23 suspension sennosides 8.6 mg tablet (senna) 8.6 mg PO BEDTIME #90 tabs 11/18/23 pantoprazole 40 mg tablet,delayed 40 mg PO DAILY@0630 #90 tabs 02/05/24 release risperidone 0.5 mg tablet 0.5 mg PO Q4H PRN agitation #14 02/17/24 (Risperdal) tabs Allergies Allergy/AdvReac Type Severity Reaction Status Date / Time ezetimibe [From Zetia] Allergy Severe Anaphylaxis Verified 02/16/24 14:10 dabigatran etexilate Allergy Intermediate ITCHING Verified 02/16/24 14:10 [From PRADAXA] JORGE L Inhibitors Allergy Mild UNKNOWN, Verified 02/16/24 14:10 [Jorge L Inhibitors] FOUND IN MEDICAL RECORD 04/[address] GIPSON apixaban [From ELIQUIS] Allergy Unknown Rash Verified 02/16/24 14:10 rosuvastatin [Crestor] Allergy Unknown myalgia Verified 02/16/24 14:10 Review of Systems Constitutional: Constitutional: Denies body ache(s), Denies chills, Denies fever(s), Reports frequent falls, Denies headache(s), Reports lethargy and Reports poor appetite ENT: Denies vertigo, Denies dizziness, Denies headache(s) and Denies sore throat Cardiovascular: Cardiovascular: Denies chest pain and Denies dyspnea Respiratory: Respiratory: Denies cough and Denies dyspnea Gastrointestinal: Gastrointestinal: Denies abdominal pain, Denies nausea and Denies vomiting Musculoskeletal: Musculoskeletal: Reports back pain Integumentary/Breasts: Skin/Breast: Denies rash Neurologic: Denies vertigo, Denies dizziness, Reports frequent falls and Denies headache(s) Psychiatric: Psychiatric: Denies anxiety and Denies suicidal ideation [facility] Past Medical History Medical History Stasis leg ulcer Pacemaker History of TIA (transient ischemic attack) (~2021) History of COVID-19 Tension headache Meningioma Hypertrophic cardiomyopathy Hearing loss Diastolic CHF, 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 Frequency of micturition Chronic abdominal pain Peripheral neuropathy Constipation Diverticulitis Polyarthralgia Primary osteoarthritis of right knee Urinary incontinence History of CVA (cerebrovascular accident) (~2018) Protrusion of lumbar intervertebral disc History of rib fracture Peripheral vascular disease GERD (gastroesophageal reflux disease) Obstructive sleep apnea BPH (benign prostatic hyperplasia) Anxiety and depression Paroxysmal atrial fibrillation COPD (chronic obstructive pulmonary disease) Obesity (BMI 30-39.9) Hypercholesterolemia Hypertension Anemia Current use of anticoagulant therapy Surgical History History of pacemaker History of colonoscopy History of total right hip replacement (~2017) History of transurethral resection of prostate History of tonsillectomy History of left knee replacement (~2007) Family History Family History Father No problems noted. 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 Patient Tobacco Use Status: Never used Tobacco Years Smoked: 30 yrs ago Smoked in Last 30 Days: No Second Hand Smoke Exposure: No Advance Directives: Yes Advance Directives on File: Yes Advance Directives Date on File: 04/06/20 service: No Current occupational status: unemployed and retired Current occupation: Right Handed Physical Exam ED Vital Signs: Vital Signs - 24 hr 02/16/24 16:00 02/16/24 17:29 02/16/24 17:36 Temperature 97.4 F Pulse Rate 100 86 88 Respiratory Rate 16 Blood Pressure 141/80 H 131/64 118/81 Pulse Oximetry 93 Oxygen Delivery Method Room Air 02/16/24 18:00 02/16/24 21:58 02/17/24 00:16 Temperature 97.8 F 97.8 F 97.7 F Pulse Rate 72 99 97 Respiratory Rate 16 16 18 Blood Pressure 123/75 149/64 H 153/79 H Pulse Oximetry 95 95 96 Oxygen Delivery Method Room Air Room Air 02/17/24 02:24 02/17/24 04:16 02/17/24 06:17 Temperature 96.9 F 97.5 F Pulse Rate 89 87 Respiratory Rate 19 17 17 Blood Pressure 161/78 H 149/81 H Pulse Oximetry 94 95 Oxygen Delivery Method Room Air Room Air 02/17/24 10:07 02/17/24 11:30 02/17/24 11:37 Temperature 97.3 F Pulse Rate 63 104 H Respiratory Rate 18 18 Blood Pressure 145/73 H 111/58 L 111/58 L Pulse Oximetry 96 Oxygen Delivery Method Room Air 02/17/24 11:38 02/17/24 12:16 Temperature Pulse Rate 104 H 104 H Respiratory Rate Blood Pressure 111/58 L 111/58 L Pulse Oximetry Oxygen Delivery Method BMI result Body Mass Index 35.2 Const General: comfortable, no acute distress, alert and awake Nutritional Appearance: well nourished Orientation/consciousness: oriented to person, No oriented to place and oriented to time HENWV Head: Yes normocephalic and Yes atraumatic Eyes Eyelids: Yes eyelids normal Conjunctivae: conjunctivae normal Sclerae: sclerae normal Corneas: corneas normal Pupils: Equal, round and reactive pupils present EOM: EOMs intact bilaterally Neck Neck: Yes full ROM Resp Effort & Inspection: normal respiratory effort, able to speak in complete sentences and not labored Cardio Rate: regular rate Rhythm: regular rhythm GI Inspection: No distended Palpation (GI): Soft to palpation, not firm, nontender, no guarding and not rigid Skin General skin exam: elasticity normal Neuro General: oriented to person, No oriented to place and oriented to time Cranial nerves: Yes CN's II-XII intact bilaterally, Yes Equal, round and reactive pupils present and Yes Bilaterally intact EOM present Extrem Other: Moving all extremities well without any obvious deformities Course Reevaluation(s) Reevaluation #1: Patient's workup largely unremarkable, chest x-ray showed question of pneumonia/aspiration, the patient is not coughing he did have a white count. He is not hypoxic. I did order a CT scan of the chest to follow-up in his does not show any evidence of pneumonia. Still awaiting urinalysis and tox screen Time: 19:37 Reevaluation #2: Patient's workup is now complete, his urinalysis was completely clear, he is medically cleared for care team/psychiatry evaluation. The patient will be evaluated due to hallucinations, delusions and agitation that was reported by family. Time: 00:49 Additional Reevaluation(s): 02/17/2024 11:00 Kimber Castillo NP Physician observation continues at this time his vital signs are stable. No acute complaints from nursing overnight. He was evaluated by care team and deemed to have psychiatry consultation in the morning for safe and appropriate disposition. Per Psychiatrist Risperidol 0.5 once, then 0.5 Q HS then 0.5 Q 4H PRN for aggitation. Care team discuss this with psychiatry who recommends patient to be discharged home and return if worsening symptoms for possible psych admission. No indication for acute psych admission at this time. Patient to be discharged with Risperdal 0.5 mg q.4 hours as needed for agitation. I feel comfortable with plan. So does family. Medications Administered Generic Name Dose Route Start Last Admin Trade Name Moise PRN Reason Stop Dose Admin Amiodarone HCl 200 mg 02/17/24 11:00 02/17/24 11:38 Amiodarone Hcl 200 Mg Tablet PO 200 mg DAILY DEEPAK Administration Aspirin 81 mg 02/17/24 11:00 02/17/24 11:36 Aspirin Enteric Coated 81 Mg Tablet. PO 81 mg DAILY DEEPAK Administration Carvedilol 25 mg 02/17/24 11:00 02/17/24 11:38 Carvedilol 25 Mg Tablet PO 25 mg BID DEEPAK Administration Protocol Docusate Sodium 100 mg 02/17/24 11:00 02/17/24 11:36 Docusate Sodium 100 Mg Capsule PO 100 mg BID DEEPAK Administration Duloxetine HCl 20 mg 02/17/24 11:00 02/17/24 11:37 Duloxetine Hcl 20 Mg Capsule. PO 20 mg DAILY DEEPAK Administration Ferrous Sulfate 324 mg 02/17/24 11:10 02/17/24 12:17 Ferrous Sulfate 324 Mg Tablet. PO 324 mg MoWeFr@0900 DEEPAK Administration Fluticasone/Vilanterol 1 puff 02/17/24 11:00 02/17/24 14:57 Fluticasone/Vilanterol 200/25 Blst.W.Dev INHALE Not Given RDAILY DEEPAK Furosemide 40 mg 02/17/24 11:00 02/17/24 11:37 Furosemide 40 Mg Tablet PO 40 mg DAILY DEEPAK Administration Protocol Gabapentin 100 mg 02/17/24 11:00 02/17/24 11:36 Gabapentin 100 Mg Capsule PO 100 mg BID DEEPAK Administration Ketorolac Tromethamine 1 drop 02/17/24 11:15 02/17/24 12:17 Ketorolac Tromethamine 0.5% Op 5 Ml Drops EYE-BOTH 1 drop BID DEEPAK Administration Methylprednisolone 2 mg 02/17/24 12:00 02/17/24 12:17 Methylprednisolone 4 Mg Tablet PO 2 mg DAILY@1200 DEEPAK Administration Methylprednisolone 4 mg 02/17/24 11:00 02/17/24 11:57 Methylprednisolone 4 Mg Tablet PO Not Given BID DEEPAK Multivitamins/Vitamin C 1 tab 02/17/24 11:00 02/17/24 11:36 Multivitamin Tablet PO 1 tab DAILY DEEPAK Administration Potassium Chloride 10 meq 02/17/24 11:15 02/17/24 11:38 Potassium Chloride Er 10 Meq Tablet.Er PO 10 meq BID DEEPAK Administration Tamsulosin HCl 0.4 mg 02/17/24 11:00 02/17/24 11:37 Tamsulosin Hcl 0.4 Mg Capsule PO 0.4 mg DAILY DEEPAK Administration Verapamil HCl 120 mg 02/17/24 11:00 02/17/24 12:16 Verapamil Hcl Sr 120 Mg Tablet.Er PO 120 mg DAILY DEEPAK Administration Protocol Discontinued Medications Generic Name Dose Route Start Last Admin Trade Name Moise PRN Reason Stop Dose Admin Risperidone 0.5 mg 02/17/24 13:25 02/17/24 15:14 Risperidone 0.5 Mg Tablet PO 02/17/24 13:26 0.5 mg ONCE ONE Administration Medical Decision Making Medical Decision Making [facility] Narrative: 88-year-old male past medical history as documented above presents for evaluation of altered mental status and weakness. I reviewed his admission from 2 weeks ago, he was reportedly started on amiodarone 400 mg b.i.d. but was plan to decrease to 200 mg b.i.d. starting tomorrow. He has not been compliant with his medications since yesterday as he has been refusing them per his . The patient complains of lower back pain, his x-ray from 2 weeks ago shows a questionable new compression fracture. He is moving all extremities well in trying to get out of bed. Given that he is on an anticoagulation we will get a repeat CT scan of the brain although there has not been any reported traumatic injuries since the fall 2 weeks ago. Plan for basic labs, urinalysis. If medically cleared, the patient may require a psychiatric consult Differential Diagnosis Differential Diagnoses: The differential diagnosis associated with the presentation includes Metabolic encephalopathy Intracranial hemorrhage Delirium Medication noncompliance Dementia Admission/Observation Consideration of admission/observation: Escalation of care including admission/observation considered Lab Data [facility] Lab Attestation statement: I reviewed the patient's lab results. Mild leukocytosis to 12.8 K, there is no significant left shift. The patient has a chronic normocytic anemia which is consistent with baseline no significant metabolic derangement. Patient is random glucose is 118, 02/16/24 14:31 02/16/24 14:31 Labs: Lab Results 12/24/24 12/24/24 12/24/24 Range/Units 14:31 14:35 18:40 WBC 12.8 H (4.8-10.8) X10*3/uL RBC 4.21 L (4.60-5.80) X10*6/uL Hgb 10.9 L (14.0-18.0) g/dl Hct 35.7 L (42.0-52.0) % MCV 84.8 (80.0-98.0) fL MCH 25.9 L (27.0-33.0) pg MCHC 30.5 L (31.0-36.0) g/dl RDW 15.6 (11.0-16.0) % Plt Count 305 D (160-400) X10*3/uL MPV 8.9 L (9.4-12.4) fL Immature Gran % (Auto) 1.1 H (0.0-0.4) % Neut % (Auto) 72.2 (45-73) % Lymph % (Auto) 17.8 L (20-40) % [place] % (Auto) 7.9 (2-11) % Eos % (Auto) 0.8 (0-4) % Baso % (Auto) 0.2 (0-2) % Lymph # (Auto) 2.3 (1.2-4.9) X10*3/uL [place] # (Auto) 1.0 (0.1-1.2) X10*3/uL Eos # (Auto) 0.1 (0.0-0.4) X10*3/uL Baso # (Auto) 0.0 (0.0-0.2) X10*3/uL Abs Immat Gran (auto) 0.14 H (0.00-0.03) X10*3/uL Absolute Neuts (auto) 9.2 H (2.0-8.3) x10*3/uL Absolute Nucleated RBC 0.000 (0.0-0.012) X10*3/uL Nucleated RBC % (auto) 0.0 (0.0-0.2) /100WBC VBG pH 7.48 H (7.32-7.43) VBG pCO2 44 mmHg VBG pO2 65 mmHg VBG HCO3 33 H (22-26) mmol/L VBG O2 Saturation 90.0 % VBG Base Excess 9.1 mmol/L Sodium 145 (135-145) mmol/L Potassium 3.9 (3.3-5.1) mmol/L Chloride 107 (96-108) mmol/L Carbon Dioxide 28 (22-29) mmol/L Anion Gap 14 (12-20) BUN 17 H (9-16) mg/dL Creatinine 1.03 (0.5-1.4) mg/dL Estim Creat Clear Calc 48.3 Estimated GFR > 60 Random Glucose 118 H (60-115) mg/dL Calcium 8.8 (8.4-10.2) mg/dL Total Bilirubin 0.4 (0.0-1.0) mg/dL AST 24 (5-37) U/L ALT 16 (0-40) U/L Alkaline Phosphatase 76 (39-117) U/L Total Protein 5.9 L (6.5-8.0) g/dL Albumin 3.0 L (3.5-5.0) g/dL Urine Color Urine Appearance Urine pH (5.0-9.0) Ur Specific [place] (1.005-1.025) Urine Protein (Neg-Trace) mg/dL Urine Glucose (UA) (Negative) mg/dL Urine Ketones (Negative) mg/dL Urine Blood (Negative) Urine Nitrite (Negative) Ur Leukocyte Esterase (Negative) Urine Opiates Screen (Not Detect) Ur Buprenorphine Scrn (Not Detect) ng/mL Ur Oxycodone Screen (Not Detect) ng/mL Urine Methadone Screen (Not Detect) ng/mL Urine Fentanyl Screen (Not Detect) Ur Barbiturates Screen (Not Detect) Ur Phencyclidine Scrn (Not Detect) Ur Amphetamines Screen (Not Detect) U Benzodiazepines Scrn (Not Detect) Urine Cocaine Screen (Not Detect) U Marijuana (THC) Screen (Not Detect) Influenza Type A (PCR) NEGATIVE (Negative) Influenza Type B (PCR) NEGATIVE (Negative) RSV RNA Qual (PCR) NEGATIVE (Negative) SARS-CoV-2 RNA (RT-PCR) NEGATIVE (Negative) 02/17/24 Range/Units 00:30 WBC (4.8-10.8) X10*3/uL RBC (4.60-5.80) X10*6/uL Hgb (14.0-18.0) g/dl Hct (42.0-52.0) % MCV (80.0-98.0) fL MCH (27.0-33.0) pg MCHC (31.0-36.0) g/dl RDW (11.0-16.0) % Plt Count (160-400) X10*3/uL MPV (9.4-12.4) fL Immature Gran % (Auto) (0.0-0.4) % Neut % (Auto) (45-73) % Lymph % (Auto) (20-40) % [place] % (Auto) (2-11) % Eos % (Auto) (0-4) % Baso % (Auto) (0-2) % Lymph # (Auto) (1.2-4.9) X10*3/uL [place] # (Auto) (0.1-1.2) X10*3/uL Eos # (Auto) (0.0-0.4) X10*3/uL Baso # (Auto) (0.0-0.2) X10*3/uL Abs Immat Gran (auto) (0.00-0.03) X10*3/uL Absolute Neuts (auto) (2.0-8.3) x10*3/uL Absolute Nucleated RBC (0.0-0.012) X10*3/uL Nucleated RBC % (auto) (0.0-0.2) /100WBC VBG pH (7.32-7.43) VBG pCO2 mmHg VBG pO2 mmHg VBG HCO3 (22-26) mmol/L VBG O2 Saturation % VBG Base Excess mmol/L Sodium (135-145) mmol/L Potassium (3.3-5.1) mmol/L Chloride (96-108) mmol/L Carbon Dioxide (22-29) mmol/L Anion Gap (12-20) BUN (9-16) mg/dL Creatinine (0.5-1.4) mg/dL Estim Creat Clear Calc Estimated GFR Random Glucose (60-115) mg/dL Calcium (8.4-10.2) mg/dL Total Bilirubin (0.0-1.0) mg/dL AST (5-37) U/L ALT (0-40) U/L Alkaline Phosphatase (39-117) U/L Total Protein (6.5-8.0) g/dL Albumin (3.5-5.0) g/dL Urine Color Dark Yellow Urine Appearance Clear Urine pH 6.5 (5.0-9.0) Ur Specific [place] 1.020 (1.005-1.025) Urine Protein Trace (Neg-Trace) mg/dL Urine Glucose (UA) Negative (Negative) mg/dL Urine Ketones Trace (Negative) mg/dL Urine Blood Negative (Negative) Urine Nitrite Negative (Negative) Ur Leukocyte Esterase Negative (Negative) Urine Opiates Screen Not Detected (Not Detect) Ur Buprenorphine Scrn Not Detected (Not Detect) ng/mL Ur Oxycodone Screen Not Detected (Not Detect) ng/mL Urine Methadone Screen Not Detected (Not Detect) ng/mL Urine Fentanyl Screen Not Detected (Not Detect) Ur Barbiturates Screen Not Detected (Not Detect) Ur Phencyclidine Scrn Not Detected (Not Detect) Ur Amphetamines Screen Not Detected (Not Detect) U Benzodiazepines Scrn Not Detected (Not Detect) Urine Cocaine Screen Not Detected (Not Detect) U Marijuana (THC) Screen Not Detected (Not Detect) Influenza Type A (PCR) (Negative) Influenza Type B (PCR) (Negative) RSV RNA Qual (PCR) (Negative) SARS-CoV-2 RNA (RT-PCR) (Negative) Independent Interpretation I performed an independent interpretation of an: EKG (The paced rhythm with a rate of 83 beats minute.) Radiology Impression Discussion of test interpretation with radiology: I have reviewed the radiologist's reading. Radiologist Impression: FINDINGS: LUNGS AND PLEURA: There is a large amount of subpleural fat, increased when compared to prior. No significant pleural effusions are seen on either side. There is mild prominence of the interstitium. There is some mild subpleural reticulation suggesting possibly fibrosis. Some small pulmonary nodules are present which may represent fissural lymph nodes (for example 6.6 mm right lower lobe and 10 mm right lower lobe (4:205 and 226). At the time of the prior CT scan, there is diffuse multifocal pneumonia which is significantly improved. There is no new acute finding MEDIASTINUM: Left chest wall pacer with dual leads is present. There is mild cardiac enlargement. No mediastinal or hilar lymphadenopathy. CORONARY ARTERY CALCIFICATION: Present AXILLA: No lymphadenopathy. CHEST WALL: There is marked bilateral gynecomastia. UPPER ABDOMEN: Unremarkable. OSSEOUS STRUCTURES: Multiple chronic left-sided rib fractures are again noted on the left severe degenerative change seen in the right shoulder with probable intra-articular loose bodies. CT/CT chest wo IV con IMPRESSION: 1. No acute intrathoracic disease. 2. Large amount of subpleural fat, increased when compared to prior. 3. Mild prominence of the interstitium with some mild subpleural reticulation suggesting possibly fibrosis. 4. Small pulmonary nodules as described above. 5. Other incidental findings as described above. Fleischner guidelines were followed. Electronically signed by: Klever No MD 02/16/2024 06:28 PM EST RP FINDINGS: There are low lung volumes. Coarse opacities are evident at both lung bases, left more than right. There is haziness at the left lung base which may reflect layering pleural fluid. The cardiac silhouette is magnified by the AP position. Left subclavian pacemaker device is unchanged. Severe posttraumatic deformity of the right humeral head is again evident. XR/XR chest 1V IMPRESSION: Low lung volumes with bibasilar atelectasis and possible layering left pleural effusion. Superimposed pneumonia or aspiration especially at the left base should be considered. Electronically signed by: Mukund Sigala MD 02/16/2024 04:52 PM EST RP Discharge Plan Discharge Clinical Impression: Altered behavior Patient Disposition: Home, Self-Care Additional Instructions: Take your medications as prescribed. If you were prescribed antibiotics today, it is important that you take your medication to their entirety, do not skip any doses, do not finish them early. Follow-up with your primary care provider this week. Return to the emergency department with new or worsening symptoms. Such as fevers, chills, chest pain, shortness of breath, nausea, vomiting, dizziness, headache, vision changes, lethargy In case of emergency call 911 Prescriptions: New risperidone [Risperdal] 0.5 mg tablet 0.5 mg PO Q4H PRN (Reason: agitation) Qty: 14 0RF No Action tamsulosin 0.4 mg capsule 0.4 mg PO DAILY 90 Days Qty: 90 3RF furosemide 40 mg tablet 40 mg PO DAILY Qty: 30 5RF docusate sodium 100 mg capsule 100 mg PO BID Qty: 60 5RF sucralfate 100 mg/mL suspension 10 ml PO BEDTIME Qty: 400 3RF pantoprazole 40 mg tablet,delayed release (DR/EC) 40 mg PO DAILY@0630 Qty: 90 3RF atorvastatin 80 mg tablet 80 mg PO BEDTIME potassium chloride 10 mEq tablet extended release 1 tab PO BID fluticasone furoate-vilanterol [Breo Ellipta] 200-25 mcg/dose Blister With Device 1 inh INHALATION DAILY ferrous sulfate [FeroSul] 325 mg (65 mg iron) tablet 325 mg PO MOWEFR fluticasone propionate 50 mcg/actuation spray,suspension 1 spray intranasal DAILY PRN (Reason: Allergy Symptoms) gabapentin 100 mg capsule 100 mg PO BID duloxetine 20 mg capsule,delayed release(DR/EC) 20 mg PO DAILY CertaVite Senior 0.4 mg-300 mcg- 250 mcg tablet 1 tab PO DAILY methylprednisolone 4 mg tablet 2 mg PO DAILY@1200 methylprednisolone 4 mg tablet 4 mg PO BID acetaminophen [Tylenol Arthritis Pain] 650 mg Tablet Extended Release 1,300 mg PO Q8H PRN (Reason: Pain) Xarelto 20 mg tablet 20 mg PO DAILY@1700 amiodarone 200 mg tablet 200 mg PO DAILY albuterol sulfate 2.5 mg /3 mL (0.083 %) solution for nebulization 2.5 mg inhalation Q4H PRN (Reason: Shortness Of Breath Or Wheezing) carvedilol 25 mg tablet 25 mg PO BID ketorolac 0.5 % drops 1 drp ophthalmic (eye) BID aspirin 81 mg tablet,delayed release (DR/EC) 81 mg PO DAILY verapamil 120 mg tablet extended release 120 mg PO DAILY sennosides [senna] 8.6 mg tablet 8.6 mg PO BEDTIME Qty: 90 4RF Print Language: Pashto
--- NOTE | 2024-02-16 16:26 | ECG_ITS ---
Test Reason : CHECK QTC Blood Pressure : / mmHG Vent. Rate : 098 BPM Atrial Rate : 098 BPM P-R Int : 212 ms QRS Dur : 128 ms QT Int : 390 ms P-R-T Axes : 081 -40 128 degrees QTc Int : 497 ms Atrial-sensed ventricular-paced rhythm with prolonged AV conduction Abnormal ECG When compared with ECG of 03-FEB-2024 12:36, Premature atrial complexes are no longer Present Vent. rate has increased BY 15 BPM Referred By: Ned Biggs Electronically Signed By:Jose F Lee
--- NOTE | 2024-02-16 17:05 | MHC.EDTECH ---
Patient refusing blood work and wants to leave AMA
[2024-02-16 19:24] LABS: Influenza A PCR NEGATIVE (Negative); Influenza B PCR NEGATIVE (Negative); Resp Syncy Virus RNA Qual PCR NEGATIVE (Negative); SARS COV2 PCR INHOUSE NEGATIVE (Negative)
--- NOTE | 2024-02-16 21:00 | MHC.EDTECH ---
Patient inc therefore patient changed and repositioned
[2024-02-17] VITALS (11 sets, daily range): BP systolic 111–161; BP diastolic 58–81; PULSE 63–104; RESP 17–19; TEMP 36.1–36.5; O2SAT 94–97
--- NOTE | 2024-02-17 00:30 | PC.NURSE ---
Straight catheterization for urine. Specimen collected and sent to lab for analysis. Patient tolerated procedure well and fell asleep while catheter was in place draining urine. Prior to straight catheterization, bladder scan stated >350 mL urine noted in bladder. Kalyan LUJAN notified. Warm blanket given, call ragsdale within reach. Sleeping at this time. Care ongoing by this RN.
[2024-02-17 00:37] LABS: Appearance Urine Clear; Color Urine Dark Yellow; Glucose Urine UA Negative (Negative); Leukocyte Esterase Urine Negative (Negative); Nitrite Urine Negative (Negative); PH 6.5 (5.0-9.0); Urine Blood Negative (Negative); Urine Ketones Trace mg/dL (Negative); Urine Protein Trace mg/dL (Neg-Trace)
[2024-02-17 01:18] LABS: Amphetamine Screen Urine Not Detected (Not Detect); Barbiturates, Urine Not Detected (Not Detect); Benzodiazepines Screen Urine Not Detected (Not Detect); Buprenorphine Scr Not Detected (Not Detect); Cannabinoid Screen Urine Not Detected (Not Detect); Cocaine Screen Urine Not Detected (Not Detect); Fentanyl, urine Not Detected (Not Detect); Methadone Screen, Urine Not Detected (Not Detect); Opiate Screen Urine Not Detected (Not Detect); Oxycodone Screen Urine Not Detected (Not Detect); Phencyclidine Screen Urine Not Detected (Not Detect)
--- NOTE | 2024-02-17 02:12 | PC.NURSE ---
Tableau Lead (Memo) to bedside speaking with patient. Gis Application Developer also present. Patient answers questions, but is often falling asleep mid-sentence during questioning. Patient difficult to understand and mumbles. Denies SI/HI. Reports auditory and visual hallucinations, but when asked to elaborate, patient only stated I hear big voices sometimes and is vague. Patient was able to identify his [place] and states that he has 4 children, but was only able to provide 3 names. When the patient requested water and was given the water, patient had to be instructed to drink the water through a straw because he was blowing bubbles through the straw instead of sucking up the water. Plan for psych evaluation and possible placement.
--- NOTE | 2024-02-17 10:43 | PHA.MEDREC ---
Pharmacy Consult ? Medication Reconciliation Pharmacy has completed the medication reconciliation. Med rec done using claims history and discharge from 02/04. Pt previously unsure of medications and is altered today. Spouse was uncertain of medications. Ferrous sulfate was previously entered as a daily medication but claims history shows directions aligning more with [employer] dosing so directions entered to reflect this.
[2024-02-17] MEDS: Gabapentin 100 MG CAPSULE PO (11:36)
[2024-02-17] MEDS: Aspirin Enteric Coated 81 MG TABLET.DR PO (11:36)
[2024-02-17] MEDS: Docusate Sodium 100 MG CAPSULE PO (11:36)
[2024-02-17] MEDS: Multivitamin TABLET 1 TAB PO (11:36)
[2024-02-17] MEDS: Tamsulosin HCL 0.4 MG CAPSULE PO (11:37)
[2024-02-17] MEDS: Furosemide 40 MG TABLET PO (11:37)
[2024-02-17] MEDS: DULoxetine HCl 20 MG CAPSULE.DR PO (11:37)
[2024-02-17] MEDS: carvediloL 25 MG TABLET PO (11:38)
[2024-02-17] MEDS: Potassium Chloride ER 10 MEQ TABLET.ER PO (11:38)
[2024-02-17] MEDS: Amiodarone HCL 200 MG TABLET PO (11:38)
--- NOTE | 2024-02-17 12:02 | PC.NURSE ---
New medication ordered entered. Pt medicate with available doses from pyxis--pharmacy contacted for all doses unavailable and Pt will be medicated upon their arrival. AM dose of Medrol 4mg help per BRONZE PLATER Kimber given time and Pt igncaio for Medrol 2mg at 1200.
[2024-02-17] MEDS: VerapamiL HCL SR 120 MG TABLET.ER PO (12:16)
[2024-02-17] MEDS: methylPREDNISolone 4 MG TABLET 2 MG PO (12:17)
[2024-02-17] MEDS: Ketorolac Tromethamine 0.5% Op 5 ML DROPS 1 DROP EYE-BOTH (12:17)
[2024-02-17] MEDS: Ferrous Sulfate 324 MG TABLET.DR PO (12:17)
--- NOTE | 2024-02-17 13:19 | PM.PSYCN ---
History of Present Illness Date of Service: 02/17/2024 Chief Complaint: DELUSIONS/HALLUCINATIONS,SI,FALL/HIT HEAD RECENTLY Requesting physician: Ned Biggs Discussed with referring provider: Yes Sources of Information: patient interviewed and chart reviewed HPI Narrative: Chief complaint: Behavioral Concerns Stated complaint: DELUSIONS/HALLUCINATIONS,SI,FALL/HIT HEAD RECENTLY Time Seen by Provider: 02/16/24 16:01 Source: patient, RN notes reviewed and old records reviewed Mode of arrival: ambulatory Limitations: no limitations History of Present Illness ED Provider: Kalyan HPI narrative: 88-year-old male with past medical history significant for atrial fibrillation on Eliquis, 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 The patient is presenting from home. He complains of lower back pain. He reports he has fallen twice since October but is unable to explain exactly when his last fall was I spoke to his , [place] who is listed as his healthcare proxy. The patient was home, he has not been himself since being admitted to this hospital 2 weeks ago. She reports that he was somewhat better last week. However since yesterday he has had increasing fatigue, he has been more confused He has not been eating or drinking anything today and was refusing his medications. Per his he has been talking to people who are not there. The patient's called his primary doctor and they were able to have a anti air warfare operations officer evaluate the patient. It was reported that he was not following commands and therefore was transferred to the hospital for evaluation He has not had any reported falls since 02/01/2024 when he was seen in this hospital The patient is alert and oriented x2, he knows the date and his name but does not know where he is I was not able to interview his Past Psychiatric History: Unknown Medical Evaluation Reviewed: Yes Review of Systems Review of Systems Yes Unobtainable due to mental status [facility] Medical History Stasis leg ulcer Pacemaker History of TIA (transient ischemic attack) (~2021) History of COVID-19 Tension headache Meningioma Hypertrophic cardiomyopathy Hearing loss Diastolic CHF, 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 Frequency of micturition Chronic abdominal pain Peripheral neuropathy Constipation Diverticulitis Polyarthralgia Primary osteoarthritis of right knee Urinary incontinence History of CVA (cerebrovascular accident) (~2018) Protrusion of lumbar intervertebral disc History of rib fracture Peripheral vascular disease GERD (gastroesophageal reflux disease) Obstructive sleep apnea BPH (benign prostatic hyperplasia) Anxiety and depression Paroxysmal atrial fibrillation COPD (chronic obstructive pulmonary disease) Obesity (BMI 30-39.9) Hypercholesterolemia Hypertension Anemia Current use of anticoagulant therapy Surgical History History of pacemaker History of colonoscopy History of total right hip replacement (~2016) History of transurethral resection of prostate History of tonsillectomy History of left knee replacement (~2007) Diagnostics Vital Signs (24Hr): Vital Signs - 24 hr 02/16/24 14:07 02/16/24 16:00 02/16/24 17:29 Temperature 98.6 F 97.4 F Pulse Rate 91 100 86 Respiratory Rate 20 16 Blood Pressure 141/74 H 141/80 H 131/64 Pulse Oximetry 96 93 Oxygen Delivery Method Room Air Room Air 02/16/24 17:36 02/16/24 18:00 02/16/24 21:58 Temperature 97.8 F 97.8 F Pulse Rate 88 72 99 Respiratory Rate 16 16 Blood Pressure 118/81 123/75 149/64 H Pulse Oximetry 95 95 Oxygen Delivery Method Room Air 02/17/24 00:16 02/17/24 02:24 02/17/24 04:16 Temperature 97.7 F 96.9 F Pulse Rate 97 89 Respiratory Rate 18 19 17 Blood Pressure 153/79 H 161/78 H Pulse Oximetry 96 94 Oxygen Delivery Method Room Air Room Air 02/17/24 06:17 02/17/24 10:07 02/17/24 11:30 Temperature 97.5 F 97.3 F Pulse Rate 87 63 104 H Respiratory Rate 17 18 18 Blood Pressure 149/81 H 145/73 H 111/58 L Pulse Oximetry 95 96 Oxygen Delivery Method Room Air Room Air 02/17/24 11:37 02/17/24 11:38 02/17/24 12:16 Temperature Pulse Rate 104 H 104 H Respiratory Rate Blood Pressure 111/58 L 111/58 L 111/58 L Pulse Oximetry Oxygen Delivery Method BMI result Body Mass Index 35.2 Labs 02/16/24 14:31 02/16/24 14:31 Labs: Laboratory Results - last 48 hr 1202/16/24 02/16/24 14:31 14:35 18:40 WBC 12.8 H RBC 4.21 L Hgb 10.9 L Hct 35.7 L MCV 84.8 MCH 25.9 L MCHC 30.5 L RDW 15.6 Plt Count 305 D MPV 8.9 L Immature Gran % (Auto) 1.1 H Neut % (Auto) 72.2 Lymph % (Auto) 17.8 L [place] % (Auto) 7.9 Eos % (Auto) 0.8 Baso % (Auto) 0.2 Lymph # (Auto) 2.3 [place] # (Auto) 1.0 Eos # (Auto) 0.1 Baso # (Auto) 0.0 Abs Immat Gran (auto) 0.14 H Absolute Neuts (auto) 9.2 H Absolute Nucleated RBC 0.000 Nucleated RBC % (auto) 0.0 VBG pH 7.48 H VBG pCO2 44 VBG pO2 65 VBG HCO3 33 H VBG O2 Saturation 90.0 VBG Base Excess 9.1 Sodium 145 Potassium 3.9 Chloride 107 Carbon Dioxide 28 Anion Gap 14 BUN 17 H Creatinine 1.03 Estim Creat Clear Calc 48.3 Estimated GFR > 60 Random Glucose 118 H Calcium 8.8 Total Bilirubin 0.4 AST 24 ALT 16 Alkaline Phosphatase 76 Total Protein 5.9 L Albumin 3.0 L Urine Color Urine Appearance Urine pH Ur Specific [place] Urine Protein Urine Glucose (UA) Urine Ketones Urine Blood Urine Nitrite Ur Leukocyte Esterase Urine Opiates Screen Ur Buprenorphine Scrn Ur Oxycodone Screen Urine Methadone Screen Urine Fentanyl Screen Ur Barbiturates Screen Ur Phencyclidine Scrn Ur Amphetamines Screen U Benzodiazepines Scrn Urine Cocaine Screen U Marijuana (THC) Screen Influenza Type A (PCR) NEGATIVE Influenza Type B (PCR) NEGATIVE RSV RNA Qual (PCR) NEGATIVE SARS-CoV-2 RNA (RT-PCR) NEGATIVE 02/17/24 00:30 WBC RBC Hgb Hct MCV MCH MCHC RDW Plt Count MPV Immature Gran % (Auto) Neut % (Auto) Lymph % (Auto) [place] % (Auto) Eos % (Auto) Baso % (Auto) Lymph # (Auto) [place] # (Auto) Eos # (Auto) Baso # (Auto) Abs Immat Gran (auto) Absolute Neuts (auto) Absolute Nucleated RBC Nucleated RBC % (auto) VBG pH VBG pCO2 VBG pO2 VBG HCO3 VBG O2 Saturation VBG Base Excess Sodium Potassium Chloride Carbon Dioxide Anion Gap BUN Creatinine Estim Creat Clear Calc Estimated GFR Random Glucose Calcium Total Bilirubin AST ALT Alkaline Phosphatase Total Protein Albumin Urine Color Dark Yellow Urine Appearance Clear Urine pH 6.5 Ur Specific [place] 1.020 Urine Protein Trace Urine Glucose (UA) Negative Urine Ketones Trace Urine Blood Negative Urine Nitrite Negative Ur Leukocyte Esterase Negative Urine Opiates Screen Not Detected Ur Buprenorphine Scrn Not Detected Ur Oxycodone Screen Not Detected Urine Methadone Screen Not Detected Urine Fentanyl Screen Not Detected Ur Barbiturates Screen Not Detected Ur Phencyclidine Scrn Not Detected Ur Amphetamines Screen Not Detected U Benzodiazepines Scrn Not Detected Urine Cocaine Screen Not Detected U Marijuana (THC) Screen Not Detected Influenza Type A (PCR) Influenza Type B (PCR) RSV RNA Qual (PCR) SARS-CoV-2 RNA (RT-PCR) Imaging Radiology Impressions: ITS Impressions Head CT 02/16/24 16:19 IMPRESSION: 1. Age-related involutional changes and microvascular disease. 2. No acute hemorrhage, mass effect, shift or acute intracranial pathology. Electronically signed by: Mukund Sigala MD 02/16/2024 04:50 PM EST RP Chest X-Ray 02/16/24 16:30 IMPRESSION: Low lung volumes with bibasilar atelectasis and possible layering left pleural effusion. Superimposed pneumonia or aspiration especially at the left base should be considered. Electronically signed by: Mukund Sigala MD 02/16/2024 04:52 PM EST RP Chest CT 02/16/24 17:46 IMPRESSION: 1. No acute intrathoracic disease. 2. Large amount of subpleural fat, increased when compared to prior. 3. Mild prominence of the interstitium with some mild subpleural reticulation suggesting possibly fibrosis. 4. Small pulmonary nodules as described above. 5. Other incidental findings as described above. Fleischner guidelines were followed. Electronically signed by: Klever No MD 02/16/2024 06:28 PM EST RP Mental Status Exam Mental Status Exam Narrative: In today's visit he is alert, oriented to time and person but not place. Speech is impaired. Moderate eye contact. Affect is appropriate and varied. He does appear to be responding to internal stimuli. He admits to auditory hallucinations but not to visual hallucinations. Cognitively he has impaired but could not be tested formally. No SI. No overt delusions. I could not evaluate his gait. Judgment is impaired Medications Medications Current Medications Acetaminophen (Acetaminophen 325 Mg Tablet) 1,300 mg PO Q8H PRN PRN Reason: Pain Albuterol Sulfate (Albuterol Sulfate (0.083%) 2.5 Mg/3 Ml Vial.Jayesh) 2.5 mg INHALE Q4H PRN PRN Reason: Shortness Of Breath Or Wheezing Amiodarone HCl (Amiodarone Hcl 200 Mg Tablet) 200 mg PO DAILY [facility] Last Admin: 02/17/24 11:38 Dose: 200 mg Aspirin (Aspirin Enteric Coated 81 Mg Tablet.) 81 mg PO DAILY [facility] Last Admin: 02/17/24 11:36 Dose: 81 mg Atorvastatin Calcium (Atorvastatin Calcium 80 Mg Tablet) 80 mg PO BEDTIME [facility] Carvedilol (Carvedilol 25 Mg Tablet) 25 mg PO BID [facility]; Protocol Last Admin: 02/17/24 11:38 Dose: 25 mg Docusate Sodium (Docusate Sodium 100 Mg Capsule) 100 mg PO BID [facility] Last Admin: 02/17/24 11:36 Dose: 100 mg Duloxetine HCl (Duloxetine Hcl 20 Mg Capsule.) 20 mg PO DAILY [facility] Last Admin: 02/17/24 11:37 Dose: 20 mg Ferrous Sulfate (Ferrous Sulfate 324 Mg Tablet.) 324 mg PO MoWeFr@0900 [facility] Last Admin: 02/17/24 12:17 Dose: 324 mg Fluticasone Propionate (Fluticasone Propionate Nasal 16 Gm [place]) 1 spray NOSTRIL-B DAILY PRN PRN Reason: Allergy Symptoms Fluticasone/Vilanterol (Fluticasone/Vilanterol 200/25 Blst.W.Dev) 1 puff INHALE RDAILY [facility] Furosemide (Furosemide 40 Mg Tablet) 40 mg PO DAILY [facility]; Protocol Last Admin: 02/17/24 11:37 Dose: 40 mg Gabapentin (Gabapentin 100 Mg Capsule) 100 mg PO BID [facility] Last Admin: 02/17/24 11:36 Dose: 100 mg Ketorolac Tromethamine (Ketorolac Tromethamine 0.5% Op 5 Ml Drops) 1 drop EYE-BOTH BID [facility] Last Admin: 02/17/24 12:17 Dose: 1 drop Methylprednisolone (Methylprednisolone 4 Mg Tablet) 2 mg PO DAILY@1200 [facility] Last Admin: 02/17/24 12:17 Dose: 2 mg Methylprednisolone (Methylprednisolone 4 Mg Tablet) 4 mg PO BID [facility] Last Admin: 02/17/24 11:57 Dose: Not Given Multivitamins/Vitamin C (Multivitamin Tablet) 1 tab PO DAILY [facility] Last Admin: 02/17/24 11:36 Dose: 1 tab Omeprazole (Omeprazole 20 Mg Capsule.Dr) 20 mg PO DAILY@0630 [facility] Potassium Chloride (Potassium Chloride Er 10 Meq Tablet.Er) 10 meq PO BID [facility] Last Admin: 02/17/24 11:38 Dose: 10 meq Rivaroxaban (Rivaroxaban 20 Mg Tablet) 20 mg PO DAILY@1700 [facility] Senna (Sennosides 8.6 Mg Tablet) 8.6 mg PO BEDTIME [facility] Sucralfate (Sucralfate Oral Suspension 1 Gm/10 Ml Oral.Susp) 1 gm PO BEDTIME [facility] Tamsulosin HCl (Tamsulosin Hcl 0.4 Mg Capsule) 0.4 mg PO DAILY [facility] Last Admin: 02/17/24 11:37 Dose: 0.4 mg Verapamil HCl (Verapamil Hcl Sr 120 Mg Tablet.Er) 120 mg PO DAILY [facility]; Protocol Last Admin: 02/17/24 12:16 Dose: 120 mg Allergies Allergies Allergy/AdvReac Type Severity Reaction Status Date / Time ezetimibe [From Zetia] Allergy Severe Anaphylaxis Verified 02/16/24 14:10 dabigatran etexilate Allergy Intermediate ITCHING Verified 02/16/24 14:10 [From PRADAXA] JORGE L Inhibitors Allergy Mild UNKNOWN, Verified 02/16/24 14:10 [Jorge L Inhibitors] FOUND IN MEDICAL RECORD 04/08 BY PCP PO apixaban [From ELIQUIS] Allergy Unknown Rash Verified 02/16/24 14:10 rosuvastatin [Crestor] Allergy Unknown myalgia Verified 02/16/24 14:10 Assessment & Plan Assessment & Plan (1) Psychosis associated with intensive care: Status: Acute Code(s): F29 - Unspecified psychosis not due to a substance or known physiological condition Plan In light of his current presentation and the change with some psychotic features I would suggest using Risperdal 0.5 mg as a 1 time dose and then 0.5 mg q.h.s.. Same can be used on a p.r.n. basis for agitation Q 4 hours. Total time managing care of this patient today ____ minutes.
[2024-02-17] MEDS: risperiDONE 0.5 MG TABLET PO (15:14)
--- NOTE | 2024-02-17 15:26 | MHC.CARE ---
CARE team communicated with Dr Boyle after psychiatric consultation was complete. Recommendation was for starting the pt on Rispderal to manage symptoms of psychosis. Dr Boyle reported to CARE team that if the symptoms do not improve within a couple days, pt can be reassessed for a possible psychiatric admission. This technical document writer communicated this to the ED attending physician Georgette LUJAN and ED nurse. This technical document writer contacted the pt's , [place], and spoke with her and the pt's live-in screener operator about the psychiatrist's recommendations and that family's preference. They reported that they want to keep the pt home as much as they possibly can and are agreeable to having him return today and will have him return to the ED if his symptoms do not improve. They reported they are most concerned about his lack of sleep and the auditory hallucinations. This technical document writer spoke with ED provider about discharge, ED manager etl is arranging transportation home via ambulance.
== END 2024-02-17 16:54 | disposition home or self-care (01) ==
PROVIDERS: Physician Assistant; Student in an Organized Health Care Education/Training Program; Emergency Provider Emergency Medicine
DX: F22 Delusional disorders (principal); R41.82 Altered mental status, unspecified; I48.91 Unspecified atrial fibrillation; M54.50 Low back pain, unspecified; R45.851 Suicidal ideations; R53.83 Other fatigue; R51.9 Headache, unspecified; R94.31 Abnormal electrocardiogram [ECG] [EKG]; I10 Essential (primary) hypertension; Z79.899 Other long term (current) drug therapy; Z86.73 Personal history of transient ischemic attack (TIA), and cerebral infarction without residual deficits; Z79.01 Long term (current) use of anticoagulants; Z91.81 History of falling; Z51.81 Encounter for therapeutic drug level monitoring; Z03.818 Encounter for observation for suspected exposure to other biological agents ruled out
CPT/HCPCS: 0241U; 36415; 70450; 71045; 71250; 80053; 80307; 81003; 82803; 85025; 93005; 99285; S9485

== ENCOUNTER → 2024-02-16 14:49 | Outpatient (BNV) | payer OTHER, SELFPAY | PROVIDERS: Emergency Provider Emergency Medicine; Visit Provider Psychiatry & Neurology Psychiatry | DX: F29 Unspecified psychosis not due to a substance or known physiological condition (principal) | CPT/HCPCS: 99282 ==

== ENCOUNTER → 2024-02-16 16:26 | Outpatient (BNV) | payer OTHER, SELFPAY | PROVIDERS: Emergency Provider Emergency Medicine; Visit Provider Internal Medicine Cardiovascular Disease | DX: R94.31 Abnormal electrocardiogram [ECG] [EKG] (principal) | CPT/HCPCS: 93010 ==

== ENCOUNTER 2024-02-22 17:22 | Inpatient (IN) | payer OTHER, SELFPAY ==
--- NOTE | ~2024-02-22 | CT_ITS ---
CLINICAL HISTORY: ams CT head without contrast Comparison: CT/SR - CT HEAD/BRAIN WO IV CON - 02/16/2024 04:33 PM EST Findings: Cortical carrington-white differentiation is preserved. No intracranial hemorrhage, mass effect or midline shift. Mild cerebral atrophy and compensatory ventriculomegaly. Low attenuation in the periventricular and subcortical white matter consistent with mild chronic small-vessel ischemic gliosis. 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 The visualized paranasal sinuses and mastoid air cells are normal. The orbits are within normal limits. There is no acute fracture. IMPRESSION: 1. No acute intracranial findings This document has been electronically signed by: Rafal Mosley MD on 02/22/2024 19:12:33
--- NOTE | ~2024-02-22 | XR_ITS ---
CLINICAL HISTORY: cough 1 view chest x-ray Comparison: CR/SR - XR CHEST 1V - 02/16/2024 04:31 PM EST Findings: Very low lung volumes. There is blunting of the left costophrenic angle, similar to prior. There is a left subclavian dual lead pacemaker with lead tips in unchanged positions. Moderate cardiomegaly. No acute fracture. Severe osteoarthritis of the right shoulder. IMPRESSION: Blunting of the left costophrenic angle, similar to prior which may be due to scarring, or small pleural effusion. This document has been electronically signed by: Rafal Mosley MD on 02/22/2024 19:05:38
[2024-02-22 17:30] VITALS: BP 134/70; BP 138/88; PULSE 70; PULSE 80; RESP 16; TEMP 36.5; O2SAT 100; O2SAT 93; BMI 32.1
--- NOTE | 2024-02-22 18:00 | ECG_ITS ---
Test Reason : AMS Blood Pressure : / mmHG Vent. Rate : 078 BPM Atrial Rate : 078 BPM P-R Int : 172 ms QRS Dur : 194 ms QT Int : 480 ms P-R-T Axes : 053 -36 124 degrees QTc Int : 547 ms Atrial-sensed ventricular-paced rhythm Abnormal ECG When compared with ECG of 16-FEB-2024 16:57, Vent. rate has decreased BY 20 BPM Referred By: Sravan Manuel Electronically Signed By:DEON DALAL MD
--- OUTSIDE RECORDS SUMMARY | 2024-02-22 18:47 | XMS_ITS | Continuity of Care Document ---
Author Organization [place] - [employer] [facility], [place] [facility] Address [address] [place] [address] Care Team Providers Care Drapery Operator Name Role Phone HIM CCA OTHER KISHORE ROBERSON Primary Care Provider Assessment Encounter Date Assessment Date Assessment LastModified by Organization Details LastModified Time 02/16/2024 02/16/2024 I have reviewed and agree with the assessment and plan as documented by the education counselor. I provided real-time medical direction for this encounter and was immediately available to provide additional phone-based assistance as needed. 88M presenting with worsening hallucinations x 3 days. [facility] and treated with cefpodoxime (sensitive). Family notes that his physical symptoms have improved, but has now developed worsening psychosis, hallucinations. No recent trauma. No other infectious symptoms. O/E: Pt alert, disoriented and having active hallucinations. Normal physical exam otherwise. Overall suspect decline in cognitive status, dementia. No other infectious symptoms discovered on history or physical. Discussed with family re: limitations of home visits. Pt may have worsening dementia and family requesting further support with dealing with new diagnosis. Recommend in person evaluation. For ER transfer. paysola Not available 02/16/2024 13:16:14 Plan of Treatment Reminders Order Date Submit [...] Not available Not available Not available 10/22/2021 10309 42 RxNorm Not Available [facility] - production 4 12:15:20 938 Product containin g angiotens in-conver ting enzyme inhibitor (product) medicatio n Not available Not available Not available 10/22/2021 20958 009 SNOMED Arti Messina MD 30 [facility],[address], [place], [address], [facility] [employer] 2 17:14:14 939 ezetimibe medicatio n Not available Not available Not available 10/22/2021 31775 8 RxNorm Not Available [facility] - production 4 16:01:50 940 apixaban medicatio n Not available Not available Not available 10/22/2021 80959 30 RxNorm Not Available [facility] 4 16:01:50 941 Lipitor medicatio n Not available Not available Not available 10/22/2021 32301 5 RxNorm Not Available [facility] 4 12:15:20 Medications Name Sig [...] active Not Available Not Available Not Available risperidone 0.5 mg tablet TAKE 1 TABLET BY MOUTH EVERY 4 HOURS NEEDED FOR AGITATION active Not Available Not Available No t Available amoxicillin 875 mg-potassium clavulanate 125 mg [...] Vitals Date Recorded Respiratory rate Heart rate Oxygen saturation Oxygen saturation in Arterial blood by Pulse oximetry Body temperature Systolic blood pressure Diastolic blood pressure Provider Name and Address Organization Details Last Updated DateTime 4 22 /min 80 /min 97 % 97 % 99.9 [degF] 114 mm[Hg] 63 mm[Hg] Not Available [facility] - production 4 13:01:39 Social History None recorded. Functional Status None recorded. Mental Status None recorded. Family History Nothing Reported. Medical History No medical history recorded. Past Encounters Encounter ID Performer Location Encounter Start Date Encounter Closed Date Diagnosis/Indication Diagnosis SNOMED-CT Code Diagnosis ICD10 Code [id number] Uziel Crowe MD Main - [address] [phone] 01/27/2024 17:55:12 01/28/2024 08:54:57 Low back pain 682906382 M54.50 [id number] Kurt Pineda MD Main - [address] [address] 02/07/2024 13:22:25 02/08/2024 11:51:26 Urinary symptoms 702785892 R39.9 Cough 30785348 R05.9 [id number] Petra Castillo MD Main - [address] [address] 02/16/2024 13:01:37 02/16/2024 19:06:50 Acute confusion 186970832 R41.0 Health Concerns Section Related Observation LastModified by Organization Detai ls LastModified Time None Recorded Concern Status LastModified by Organization Details LastModified Time None Recorded Payers Encounter Date Sequence Insurance Name Policy Number Policy Escamilla Covered Member ID Escamilla Member ID Guarantor Name 02/16/2024 1 [facility] - DOS ON OR AFTER 2022 - DUAL ELIGIBLE - CARE HOME OPTIONS AND ONE CARE (MEDICARE REPLACEMENT/ADV ANTAGE - HMO) Pal Da Silva [id number] Pal Da Silva Notes Date Note Type Note Provider Name and Address Organization Details Recorded Time 02/16/2024 text/html HPI: He is an 88 year old male with HTN, CHF, CAD, HLD, a-fib on chronic anticoagulation, 3rd degree heart block s/p ppm placement, past CVA, asthma, sleep apnea, obesity, MGUS, arthritis, spinal stenosis, depression, complicated cholecystectomy 2022, OAB, and polymyalgia rheumatica on chronic steroids. His [place] calls stating he has had 3 days of increased confusion and is hallucinating. He is having conversations with people who have in his life. [facility] w/ [facility] They declined ER at this time but are open [facility]. ..................... ..................... ..................... ..................... ..................... ..................... ............... [facility] Nurse Triage Notes (Irene Payne - RN): Chief Complaints: Altered mental status PMH: Congestive Heart Failure, COPD/Asthma, Hypertension, Severe Persistent Mental Illness (SPMI), Arrhythmias (e.g., Atrial Fibrillation), Coronary Artery Disease, Sleep Apnea, Stroke, Osteoarthritis, Cholecystectomy, Depression Comments: HPI reviewed- NE Gin Inspector Organization Information for Deann Crowe Business Legal Name: [employer] ? Address: [address] [place] [address], Correctional Therapy Director: Oliver Salinas MD [facility] No.: [id number] Gin Inspector POC Test Results from Deann Crowe Blood Glucose Measurement (12:56:58) Blood Glucose: 185 mg/dL ..................... ..................... ..................... ..................... ..................... ..................... ............... Gin Inspector Note From Deann Crowe: Upon arrival, patient is 88 year-old male laying on the bed with his and grandchild on the side. Patient is alert x 1 to person, confused. Respiratory effort not labored. Airway is patent speaking complete sentences. Patient? s family informs that patient has a history of delusions, however there is a new onset of hallucinations, worsening since past couple of days. Patient has lots of appetite and has not sleep since past 24 hours. Patient was diagnosed with UTI last week and is currently taking antibiotics for it. Patient denies any chest pain or any headache, nausea, vomiting. Patient denies any pain while urinating or diarrhea. Abdomen soft, no tender. Unable to perform a thorough neuro assessment due to pt not being able to follow commands. Pupils PEARLAA. BGL 185. Skin is pink warm and dry. Patient? s family is concerned, stated ? if this is an early onset of dementia, we don? t know how to treat or help him. We have no idea how to do anything for him and we need some education? . vital assessed and recorded. Patient is advised to go to the ED for further evaluation, pt? s family agreed. SC9 medic called 911 and pt is sent to the [facility] via [facility]. SC9 clear without any incidents ..................... ..................... ..................... ..................... ..................... ..................... ............... [facility] Consulted: Petra Castillo ..................... ..................... ..................... ..................... ..................... ..................... ............... Disposition: Ruthann Castillo MD [address] [facility],[address], [place], [address], JILL FAROOQ 02/16/2024 16:29:26
--- OUTSIDE RECORDS SUMMARY | 2024-02-22 18:47 | XMS_ITS | Continuity of Care Document ---
Author Organization [employer], [place] - [employer] Address [address] [place] [phone] Care Team Providers Care Roller Staker Name Role Phone HIM CCA OTHER KISHORE ROBERSON Primary Care Provider Assessment Encounter Date Assessment Date Assessment LastModified by Organization Details LastModified Time 02/07/2024 02/07/2024 I have reviewed and agree with the assessment and plan as documented by the progressive care manager. I provided real time medical direction for this encounter and was immediately available to provide additional phone based assistance as needed. History as noted by progressive care manager. Pt with history of COPD, CHF, Afib on AC. Pt is s/p fall and recent admit to [facility] 6 days ago fro Afib with [...] Modified Time Details Appointments None recorded. Lab culture, urine 2023 024 [facility], [address] [place] [address], [id number], 4 20:09:15 urinalysis, dipstick 2023 024 btils Main - [facility], [address] [place] [address], [phone], 4 13:33:15 rapid SARS CoV 2 Ag, QL IA, respiratory specimen 2023 024 btils Main - [facility], [address] [place] [address], [phone], 4 13:33:15 rapid flu (A+B) 2023 024 btils Main - [facility], [address] [place] [address], [phone], 4 13:33:15 Referral None recorded. Procedures None recorded. Surgeries None recorded. Imaging None recorded. Medication Orders cefpodoxime 200 mg tablet 2023 [facility]111, [address], [place], [id number], 4 13:33:20 ipratropium 0.5 mg-albutero l 3 mg (2.5 mg base)/3 mL nebulizatio n soln 2023 [facility], [address] [facility], [place], [address], 4 13:33:15 guaifenesin ER 600 mg tablet, extended release 12 hr 2023 [facility] #56230, [address], [place], [id number], 4 13:37:50 albuterol sulfate HFA 90 mcg/actuati on aerosol inhaler 2023 [facility] #26992, [address], [place], [id number], 4 13:40:51 Patient TargetsNo targets recorded. Patient InstructionsNo instructions recorded. Reason for Referral None Reported. Results Created Date Observation Date Name Description Value Unit Range Abnormal Flag Note LastModifiedBy Organization Detail LastModifiedTime 02/07/20 24 02/07/2024 rapid flu (A+B) Flu negati ve Not Available Main - [facility] [address] [place] [address], [phone], 02/07/2024 13:28:35 02/07/20 24 02/07/2024 rapid SARS CoV 2 Ag, QL IA, respi rator y speci men rapid SARS CoV 2 Ag, QL IA, respiratory specimen negati ve Not Available Main - Inst [facility] [address] [place] [address], [phone], 02/07/2024 13:28:29 Result Notes None recorded. Medical Equipment None Reported. Allergies Allergen ID Allergen Name Allergen Category Reaction Reaction Severity Criticality Documentation Date Start Date Code Code System Note Provider Name and Address Organization Details Recorded Time 937 dabigatra n etexilate medicatio n Not available Not available Not available 10/22/2021 80699 42 RxNorm Not Available [facility] - production 4 12:15:20 938 Product containin g angiotens in-conver ting enzyme inhibitor (product) medicatio n Not available Not available Not available 10/22/2021 37616 009 SNOMED Arti Messina MD 30 [facility],[address], [place], [phone], [facility], [employer] 2 17:14:14 939 ezetimibe medicatio n Not available Not available Not available 10/22/2021 95905 8 RxNorm Not Available [facility] - production 4 16:01:50 940 apixaban medicatio n Not available Not available Not available 10/22/2021 48982 30 RxNorm Not Available [facility] - production 4 16:01:50 941 Lipitor medicatio n Not available Not available Not available 10/22/2021 02683 5 RxNorm Not Available [facility] - production [...] Diagnosis/Indication Diagnosis SNOMED-CT Code Diagnosis ICD10 Code [id number] Uziel Crowe MD [facility] - [address] [address] 01/27/2024 17:55:12 01/28/2024 08:54:57 Low back pain [id number] M54.50 [id number] Kurt Pineda MD [address] [address] 02/07/2024 13:22:25 02/08/2024 11:51:26 Urinary symptoms 958008844 R39.9 Cough 80967119 R05.9 Health Concerns Section Related Observation LastModified by Organization Detai ls LastModified Time None Recorded Concern Status LastModified by Organization Details LastModified Time None Recorded Payers Encounter Date Sequence Insurance Name Policy Number Policy Escamilla Covered Member ID Escamilla Member ID Guarantor Name 02/07/2024 1 [facility] - DOS ON OR AFTER 2022 - DUAL ELIGIBLE - RESIDENTIAL OPTIONS AND ONE CARE (MEDICARE REPLACEMENT/ADV ANTAGE - HMO) Pal Da Silva [id number] Pal Da Silva Notes Date Note Type Note Provider Name and Address Organization Details Recorded Time 02/07/2024 text/html This was a supervised home visit with progressive care manager Lalit Lubin. [facility] Nurse Triage Notes (Chaitanya [...] Disease, Sleep Apnea, Stroke, Osteoarthritis, Cholecystectomy, DepressionComments: Charge Nurse verified the patient's name//address and phone number. [...] emergency treatment if needed -Alona Myles RN Electromechanical Inspector Organization Information for Lalit Lubin - Yan[employer] Legal Name: [facility] TransportationAddres s: [address] [facility], [place] [address], Medical Director: Billy [facility] No.: [id number] Electromechanical Inspector POC Test Results from Lalit Lubin - ARNULFO Urine Dipstick (13:20:10)Urine leukocytes: 3+ LEUUrine nitrites: + NITUrine urobilinogen: - UROUrine protein: 1+ PROUrine pH: 5.0 pHUrine blood: - BLOUrine specific gravity: 1.015 SGUrine ketones: - KETUrine bilirubin: - BILUrine glucose: - GLU Rapid influenza antigen (13:20:11)Flu: - Rapid COVID antigen (13:20:12)COVID: - .................... .................... .................... .................... .................... .................... .................... . Electromechanical Inspector Note From Lalit Lubin: This 88-year-old male with a history including but not limited to CHF, COPD, HTN, depression, atrial fibrillation, CAD, stroke, OA is well known to [facility] and well known to myself. His requested a visit today to address a dry cough and dysuria for several days. She tells me that he fell at home last Thursday and was taken to [facility]. He was found to be in atrial [...] questions and are agreeable to this plan. [facility] Lab Orders: culture, urine: Performed .................... .................... .................... .................... .................... .................... .................... . [facility] Consulted: Kurt Pineda .................... .................... .................... .................... .................... .................... .................... . Disposition: Fulfilled Kurt Pineda MD [address] [facility],[address], [place], [address], KAREN - JILL HOLT 02/07/2024 14:19:47
--- OUTSIDE RECORDS SUMMARY | 2024-02-22 18:48 | XMS_ITS | Continuity of Care Document ---
Author Organization [employer] [place] [facility] [place] Address [address] [place] [phone] Care Team Providers Care Manufacturing Recruiter Name Role Phone HIM CCA OTHER KISHORE ROBERSON Primary Care Provider Assessment No assessment recorded. Plan of Treatment Reminders Order Date Submit Date Provider Last Modified By Organization Details Last Modified Time Details Appointments None recorded. Lab None recorded. Referral None recorded. Procedures None recorded. Surgeries None recorded. Imaging None recorded. Medication Orders cyclobenzap rine 5 mg tablet 2023 024 [facility]155, [address], [place], [id number], 4 17:57:09 Patient TargetsNo targets recorded. Patient InstructionsNo instructions recorded. Reason for Referral None Reported. Medical Equipment None Reported. Allergies Allergen ID Allergen Name Allergen Category Reaction Reaction Severity Criticality Documentation Date Start Date Code Code System Note Provider Name and Address Organization Details Recorded Time 937 dabigatra n etexilate medicatio n Not available Not available Not available 10/22/2021 01735 42 RxNorm Not Available [employer] 4 12:15:20 938 Product containin g angiotens in-conver ting enzyme inhibitor (product) medicatio n Not available Not available Not available 10/22/2021 00622 009 SNOMED Arti Messina MD [address] [place] [address],[address], [place], [address] , [facility] 2 17:14:14 939 ezetimibe medicatio n Not available Not available Not available 10/22/2021 05476 8 RxNorm Not Available [employer] 4 16:01:50 940 apixaban medicatio n Not available Not available Not available 10/22/2021 52139 30 RxNorm Not Available [facility] - production 4 16:01:50 941 Lipitor medicatio n Not available Not available Not available 10/22/2021 90413 5 RxNorm Not Available [facility] - production [...] /min 100 % 100 % 98.7 [degF] 25743.5 84 g 154 mm[Hg] 75 mm[Hg] Not Available [facility]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 Functional Status None recorded. Mental Status None recorded. Family History Nothing Reported. Medical History No medical history recorded. Past Encounters Encounter ID Performer Location Encounter Start Date Encounter Closed Date Diagnosis/Indication Diagnosis SNOMED-CT Code Diagnosis ICD10 Code [id number] Uziel Crowe MD Main - [facility] [address] [place] [phone] 01/27/2024 17:55:12 01/28/2024 08:54:57 Low back pain 208000952 M54.50 Health Concerns Section Related Observation LastModified by Organization Detai ls LastModified Time None Recorded Concern Status LastModified by Organization Details LastModified Time None Recorded Payers Encounter Date Sequence Insurance Name Policy Number Policy Escamilla Covered Member ID Escamilla Member ID Guarantor Name 01/27/2024 1 [facility] - DOS ON OR AFTER 2022 - DUAL ELIGIBLE - RETIREMENT OPTIONS AND ONE CARE (MEDICARE REPLACEMENT/ADV ANTAGE - HMO) Pal Da Silva [id number] Pal Da Silva Notes Date Note Type [...] ................... ................... ................... ................... ................... ................... ........ Experimental Mechanic Note From Mark Brock: [facility] visit for male pt. Pt presents lying supine in bed with . Pt reports 8 days of severe lumbar back pain with a couple of ED visits for same issue. Pt has been diagnosed with paraspinal muscle sprain and prescribed lidocaine patches and tylenol. Pt also given some tramadol though unspecified person from [facility] called him and told him not to take it. V/S taken as listed. Pt afebrile. Pt had severe right lumbar pain and tenderness. No external signs of injury discoloration etc. Consulted with [facility] Dr. Crowe who advised pt can take toke of tramadol, try hot compresses, and follow up with PCP. Reviewed red flags for ED. Pt education provided. ................... ................... ................... ................... ................... ................... ................... ........ [facility] Consulted: Uziel Crowe ................... ................... ................... ................... ................... ................... ................... ........ Disposition: Fulfilled Uziel Crowe MD [address] [facility],[address], [place], [address], [employer] 01/27/2024 22:26:07
--- OUTSIDE RECORDS SUMMARY | 2024-02-22 18:48 | XMS_ITS | Continuity of Care Document ---
Author Organization [employer] [place], [place] in - [facility] Address [address] [place] [phone] Care Team Providers Care Concrete Tester Name Role Phone HIM CCA OTHER KISHORE ROBERSON Primary Care Provider Assessment No assessment recorded. Plan of Treatment Reminders Order Date Submit Date Provider Last Modified By Organization Details Last Modified Time Details Appointments None recorded. Lab None recorded. Referral None recorded. Procedures None recorded. Surgeries None recorded. Imaging electrocard iogram 2023 [facility], [address] [place] [address], [phone], 23:09:43 Medication Orders cephalexin 500 mg capsule 2023 024 kenzie [facility], [address] [place], [address], 21:36:43 cephalexin 500 mg capsule 2023 024 Goch[facility], [address] [place], [address], 22:52:32 Patient TargetsNo targets recorded. Patient InstructionsNo instructions recorded. Reason for Referral None Reported. Results Created Date Observation Date Name Description Value Unit Range Abnormal Flag Note LastModifiedBy Organization Detail LastModifiedTime 12/11/1912/11/2023 elect anuel englegr am No observ ation record ed. [employer] [address], [phone], 12/11/2023 23:09:40 Result Notes None recorded. Procedures Surgical History None recorded. Imaging Results Imaging Date Name Status LastModified by Organization Details LastModified Time 12/11/2023 electrocardiogram completed g[facility] - [address], [place], [address], 12/11/2023 23:09:40 Procedure Notes None recorded. Medical Equipment None Reported. Allergies Allergen ID Allergen Name Allergen Category Reaction Reaction Severity Criticality Documentation Date Start Date Code Code System Note Provider Name and Address Organization Details Recorded Time 937 dabigatra n etexilate medicatio n Not available Not available Not available 10/22/2021 18714 42 RxNorm Not Available [facility] - production 4 12:15:20 938 Product containin g angiotens in-conver ting enzyme inhibitor (product) medicatio n Not available Not available Not available 10/22/2021 23728 009 SNOMED Arti Messina MD [address] [place] [address],[address], [place], [address] [place] [address] [employer] 2 17:14:14 939 ezetimibe medicatio n Not available Not available Not available 10/22/2021 69276 8 RxNorm Not Available [facility] - production 4 16:01:50 940 apixaban medicatio n Not available Not available Not available 10/22/2021 55605 30 [facility] 16:01:50 941 Lipitor medicatio n Not available Not available Not available 10/22/2021 35951 5 RxNorm Not Available [facility] - production [...] % 98.1 [degF] 157.48 cm 75 /min 50725.4 g 19 /min 85 mm[Hg] 52 mm[Hg] Not Available [facility] - production 21:22:40 Social History None recorded. Functional Status None recorded. Mental Status None recorded. Family History Nothing Reported. Medical History No medical history recorded. Past Encounters Encounter ID Performer Location Encounter Start Date Encounter Closed Date Diagnosis/Indication Diagnosis SNOMED-CT Code Diagnosis ICD10 Code [id number] Melani Cespedes MD [facility] - [facility] [address] [place] [phone] 11/16/2023 18:19:32 11/16/2023 20:41:54 Cough 90229803 R05.9 [id number] EHSAN RODRIGUEZ MD Main - [facility] [address] [place] [phone] 12/11/2023 21:22:23 12/12/2023 15:24:29 Cellulitis of toe of right foot 1530269299 L03.031 Health Concerns Section Related Observation LastModified by Organization Detai ls LastModified Time None Recorded Concern Status LastModified by Organization Details LastModified Time None Recorded Payers Encounter Date Sequence Insurance Name Policy Number Policy Escamilla Covered Member ID Escamilla Member ID Guarantor Name 12/11/2023 1 [facility] - DOS ON OR AFTER 2022 - DUAL ELIGIBLE - SNF OPTIONS AND ONE CARE (MEDICARE REPLACEMENT/ADV ANTAGE - HMO) Pal Da Silva [id number] Pal Da Silva Notes Date Note Type [...] .................... . CRC Nurse Triage Notes (Suzie Ecsoto): Chief Complaints: Wound Care, Pain, Cellulitis PMH: CHF, COPD/Asthma, Hypertension, Severe Persistent Mental Illness (SPMI) Other Allergies: ROSSANA inhibitors, ezetimibe, dabigatran Comments: CRC RN did not require any additional information to process this visit. Pantograph Transferrer Organization Information for Jonathan Espinoza [employer] Legal Name: [facility] Address: [address] [place] [address], Student Counsellor: Billy Manzo MD [place] No.: [id number] Pantograph Transferrer POC Test Results from Jonathan Espinoza [facility] EKG (21:20:36) EKG test performed. Attachments uploaded as part of this test result can be found under Documents section. .................... .................... .................... .................... .................... .................... .................... . Pantograph Transferrer Note From Jonathan Espinoza: Pt chief complaint [...] pt to be in a ventricularly paced rhythm.[facility] unable to acquire a IV [...] .................... . Disposition: Ruthann RODRIGUEZ MD [address] [facility],[address], [place], [address], [place] - [employer] 12/11/2023 23:11:06
[2024-02-22 18:50] LABS: Influenza A PCR NEGATIVE (Negative); Influenza B PCR NEGATIVE (Negative); Resp Syncy Virus RNA Qual PCR NEGATIVE (Negative); SARS COV2 PCR INHOUSE NEGATIVE (Negative)
--- NOTE | 2024-02-22 19:19 | ED_ITS ---
HPI - Altered Mental Status General Chief Complaint: Altered Mental Status Stated Complaint: AMS,hallucinations Time Seen by Provider: 02/22/24 18:00 Source: patient History of Present Illness ED Provider: Kaleb GARNER narrative: 88-year-old male with past medical history of AFib on AC, BPH, hypertension, congestive heart failure, GERD presents for altered mental status. 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 Per EMS patient has been confused for a few days now experiencing hallucinations. Patient reportedly started new medication however it is unclear what medication this is. Vitals were stable in transport. Per patients patient has 1 day of decreased appetite, visual hallucinations and paranoia. Pt recently started risperidone Related Data Home Medications ?Medication ?Instructions ?Recorded ?Confirmed atorvastatin 80 mg tablet 80 mg PO BEDTIME 06/03/20 02/17/24 carvedilol 25 mg tablet 25 mg PO BID 12/04/20 02/17/24 potassium chloride 10 mEq 1 tab PO BID 11/14/21 02/17/24 tablet,extended release fluticasone furoate 200 1 inh inhalation DAILY 12/06/22 02/17/24 mcg-vilanterol 25 mcg/dose inhalation powder (Breo Ellipta) ferrous sulfate 325 mg (65 mg 325 mg PO MOWEFR 12/07/22 02/17/24 iron) tablet (FeroSul) fluticasone propionate 50 1 spray intranasal DAILY PRN 12/07/22 02/17/24 mcg/actuation nasal Allergy Symptoms spray,suspension aspirin 81 mg tablet,delayed 81 mg PO DAILY 08/17/23 02/17/24 release ketorolac 0.5 % eye drops 1 drp ophthalmic (eye) BID 08/17/23 02/17/24 verapamil 120 mg tablet,extended 120 mg PO DAILY 08/17/23 02/17/24 release acetaminophen 650 mg 1,300 mg PO Q8H PRN Pain 02/01/24 02/17/24 tablet,extended release (Tylenol Arthritis Pain) duloxetine 20 mg capsule,delayed 20 mg PO DAILY 02/01/24 02/17/24 release gabapentin 100 mg capsule 100 mg PO BID 02/01/24 02/17/24 methylprednisolone 4 mg tablet 2 mg PO DAILY@1200 02/01/24 02/17/24 methylprednisolone 4 mg tablet 4 mg PO BID 02/01/24 02/17/24 iitpcpzh-rfv-ngnlc acid 0.4 1 tab PO DAILY 02/01/24 02/17/24 mg-lycopene 300 mcg-lutein 250 mcg tablet (CertaVite Senior) rivaroxaban 20 mg tablet (Xarelto) 20 mg PO DAILY@1700 02/01/24 02/17/24 albuterol sulfate 2.5 mg/3 mL 2.5 mg inhalation Q4H PRN 02/17/24 02/17/24 (0.083 %) solution for nebulization Shortness Of Breath Or Wheezing amiodarone 200 mg tablet 200 mg PO DAILY 02/17/24 02/17/24 Previous Rx's ?Medication ?Instructions ?Recorded tamsulosin 0.4 mg capsule 0.4 mg PO DAILY 90 days #90 caps 03/29/21 furosemide 40 mg tablet 40 mg PO DAILY #30 tabs 12/05/22 docusate sodium 100 mg capsule 100 mg PO BID #60 caps 05/20/23 sucralfate 100 mg/mL oral 10 ml PO BEDTIME #400 mL 11/16/23 suspension sennosides 8.6 mg tablet (senna) 8.6 mg PO BEDTIME #90 tabs 11/18/23 pantoprazole 40 mg tablet,delayed 40 mg PO DAILY@0630 #90 tabs 02/05/24 release risperidone 0.5 mg tablet 0.5 mg PO Q4H PRN agitation #14 02/17/24 (Risperdal) tabs Allergies Allergy/AdvReac Type Severity Reaction Status Date / Time ezetimibe [From Zetia] Allergy Severe Anaphylaxis Verified 02/22/24 17:32 dabigatran etexilate Allergy Intermediate ITCHING Verified 02/22/24 17:32 [From PRADAXA] JORGE L Inhibitors Allergy Mild UNKNOWN, Verified 02/22/24 17:32 [Jorge L Inhibitors] FOUND IN MEDICAL RECORD 04/[address] GIPSON apixaban [From ELIQUIS] Allergy Unknown Rash Verified 02/22/24 17:32 rosuvastatin [Crestor] Allergy Unknown myalgia Verified 02/22/24 17:32 Review of Systems 2 Review of Systems: endorsing hallucinations and decreased appetite [facility] Past Medical History Attestation statement: The following information was validated with the patient. [facility] Narrative: CHF Source: old records reviewed Medical History Stasis leg ulcer Pacemaker History of TIA (transient ischemic attack) (~2021) History of COVID-19 Tension headache Meningioma Hypertrophic cardiomyopathy Hearing loss Diastolic CHF, 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 Frequency of micturition Chronic abdominal pain Peripheral neuropathy Constipation Diverticulitis Polyarthralgia Primary osteoarthritis of right knee Urinary incontinence History of CVA (cerebrovascular accident) (~2018) Protrusion of lumbar intervertebral disc History of rib fracture Peripheral vascular disease GERD (gastroesophageal reflux disease) Obstructive sleep apnea BPH (benign prostatic hyperplasia) Anxiety and depression Paroxysmal atrial fibrillation COPD (chronic obstructive pulmonary disease) Obesity (BMI 30-39.9) Hypercholesterolemia Hypertension Anemia Current use of anticoagulant therapy Surgical History History of pacemaker History of colonoscopy History of total right hip replacement (~2016) History of transurethral resection of prostate History of tonsillectomy History of left knee replacement (~2007) Family History Family History Father No problems noted. 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 Patient Tobacco Use Status: Never used Tobacco Years Smoked: 30 yrs ago Smoked in Last 30 Days: No Second Hand Smoke Exposure: No Use of substances other than those prescribed or required for medical reasons: No Advance Directives: Yes Advance Directives on File: Yes Advance Directives Date on File: 04/06/20 Do you have a plan to hurt others: No Plan service: No Current occupational status: unemployed and retired Current occupation: Right Handed Physical Exam ED Vital Signs: Vital Signs - 24 hr 02/22/24 17:30 02/22/24 19:52 Temperature 97.7 F Pulse Rate 80 Respiratory Rate 16 16 Blood Pressure 134/70 Pulse Oximetry 100 Oxygen Delivery Method Room Air BMI result Body Mass Index 32.1 well appearing; A&Ox4; no focal neurologic deficits appreciated lungs ctab [id number] rrr abd soft, nontender and nondistended Normal lower extremity edema appreciated Medical Decision Making Medical Decision Making [facility] Narrative: 88-year-old male presenting for hallucinations and altered mental status. I am concerned for the following; underlying infection, electrolyte/metabolic disturbance, medication reaction, CVA -labs and imaging studies ordered -I had at length discussion with the patient's who suspects that his symptoms are secondary to him starting risperidone -I reviewed patient's CT and do not appreciate head bleed in the radiologist impression is negative for acute findings -I do not appreciate large consolidation on patient's chest x-ray and radiology impression is notable for small pleural effusion -labs notable for stable H&H, mild leukocytosis, electrolytes within normal limits -no ischemic changes appreciated the patient's EKGs when compared to EKG obtained 02/15 -UA concerning for UTI; antibiotics ordered I consulted overnight hospitalist who accepted the patient for admission Lab Data 02/22/24 20:00 02/22/24 20:00 Labs: Lab Results 02/22/24 02/22/24 02/22/24 Range/Units 18:04 20:00 20:52 WBC 11.7 H (4.8-10.8) X10*3/uL RBC 3.97 L (4.60-5.80) X10*6/uL Hgb 10.1 L (14.0-18.0) g/dl Hct 34.0 L (42.0-52.0) % MCV 85.6 (80.0-98.0) fL MCH 25.4 L (27.0-33.0) pg MCHC 29.7 L (31.0-36.0) g/dl RDW 15.7 (11.0-16.0) % Plt Count 353 (160-400) X10*3/uL MPV 9.3 L (9.4-12.4) fL Immature Gran % (Auto) 1.0 H (0.0-0.4) % Neut % (Auto) 78.2 H (45-73) % Lymph % (Auto) 11.9 L (20-40) % Keith % (Auto) 7.4 (2-11) % Eos % (Auto) 1.2 (0-4) % Baso % (Auto) 0.3 (0-2) % Lymph # (Auto) 1.4 (1.2-4.9) X10*3/uL Keith # (Auto) 0.9 (0.1-1.2) X10*3/uL Eos # (Auto) 0.1 (0.0-0.4) X10*3/uL Baso # (Auto) 0.0 (0.0-0.2) X10*3/uL Abs Immat Gran (auto) 0.12 H (0.00-0.03) X10*3/uL Absolute Neuts (auto) 9.2 H (2.0-8.3) x10*3/uL Absolute Nucleated RBC 0.000 (0.0-0.012) X10*3/uL Nucleated RBC % (auto) 0.0 (0.0-0.2) /100WBC Sodium 142 (135-145) mmol/L Potassium 4.6 (3.3-5.1) mmol/L Chloride 106 (96-108) mmol/L Carbon Dioxide 26 (22-29) mmol/L Anion Gap 15 (12-20) BUN 24 H (9-16) mg/dL Creatinine 1.18 (0.5-1.4) mg/dL Estim Creat Clear Calc 44.8 Estimated GFR 58 Random Glucose 171 H (60-115) mg/dL Calcium 8.3 L (8.4-10.2) mg/dL Phosphorus 3.3 (2.7-4.5) mg/dL Magnesium 2.1 (1.6-2.6) mg/dL Total Bilirubin 0.3 (0.0-1.0) mg/dL Direct Bilirubin 0.1 (0.0-0.5) mg/dL AST 23 (5-37) U/L ALT 11 (0-40) U/L Alkaline Phosphatase 85 (39-117) U/L Ammonia (13-55) umol/L Troponin I High Sens 28.1 D (<3.5-35.0) ng/L Total Protein 5.6 L (6.5-8.0) g/dL Albumin 2.6 L (3.5-5.0) g/dL Urine Color Yellow Urine Appearance Cloudy Urine pH 6.0 (5.0-9.0) Ur Specific [place] 1.025 (1.005-1.025) Urine Protein 30 (1+) H (Neg-Trace) mg/dL Urine Glucose (UA) Negative (Negative) mg/dL Urine Ketones Negative (Negative) mg/dL Urine Blood Small (1+) H (Negative) Urine Nitrite Positive H (Negative) Ur Leukocyte Esterase Large (3+) H (Negative) Urine RBC 6-10 H (0-2) /HPF Urine WBC >50 H (0-5) /HPF Ur Squamous Epith Cells 6-10 (0-2) /HPF Urine Bacteria 4+ (None Seen) Hyaline Casts 3-5 (0-2) /LPF Ethyl Alcohol < 10 mg/dL Influenza Type A (PCR) NEGATIVE (Negative) Influenza Type B (PCR) NEGATIVE (Negative) RSV RNA Qual (PCR) NEGATIVE (Negative) SARS-CoV-2 RNA (RT-PCR) NEGATIVE (Negative) 02/22/24 Range/Units 20:56 WBC (4.8-10.8) X10*3/uL RBC (4.60-5.80) X10*6/uL Hgb (14.0-18.0) g/dl Hct (42.0-52.0) % MCV (80.0-98.0) fL MCH (27.0-33.0) pg MCHC (31.0-36.0) g/dl RDW (11.0-16.0) % Plt Count (160-400) X10*3/uL MPV (9.4-12.4) fL Immature Gran % (Auto) (0.0-0.4) % Neut % (Auto) (45-73) % Lymph % (Auto) (20-40) % Keith % (Auto) (2-11) % Eos % (Auto) (0-4) % Baso % (Auto) (0-2) % Lymph # (Auto) (1.2-4.9) X10*3/uL Keith # (Auto) (0.1-1.2) X10*3/uL Eos # (Auto) (0.0-0.4) X10*3/uL Baso # (Auto) (0.0-0.2) X10*3/uL Abs Immat Gran (auto) (0.00-0.03) X10*3/uL Absolute Neuts (auto) (2.0-8.3) x10*3/uL Absolute Nucleated RBC (0.0-0.012) X10*3/uL Nucleated RBC % (auto) (0.0-0.2) /100WBC Sodium (135-145) mmol/L Potassium (3.3-5.1) mmol/L Chloride (96-108) mmol/L Carbon Dioxide (22-29) mmol/L Anion Gap (12-20) BUN (9-16) mg/dL Creatinine (0.5-1.4) mg/dL Estim Creat Clear Calc Estimated GFR Random Glucose (60-115) mg/dL Calcium (8.4-10.2) mg/dL Phosphorus (2.7-4.5) mg/dL Magnesium (1.6-2.6) mg/dL Total Bilirubin (0.0-1.0) mg/dL Direct Bilirubin (0.0-0.5) mg/dL AST (5-37) U/L ALT (0-40) U/L Alkaline Phosphatase (39-117) U/L Ammonia 26 (13-55) umol/L Troponin I High Sens (<3.5-35.0) ng/L Total Protein (6.5-8.0) g/dL Albumin (3.5-5.0) g/dL Urine Color Urine Appearance Urine pH (5.0-9.0) Ur Specific [place] (1.005-1.025) Urine Protein (Neg-Trace) mg/dL Urine Glucose (UA) (Negative) mg/dL Urine Ketones (Negative) mg/dL Urine Blood (Negative) Urine Nitrite (Negative) Ur Leukocyte Esterase (Negative) Urine RBC (0-2) /HPF Urine WBC (0-5) /HPF Ur Squamous Epith Cells (0-2) /HPF Urine Bacteria (None Seen) Hyaline Casts (0-2) /LPF Ethyl Alcohol mg/dL Influenza Type A (PCR) (Negative) Influenza Type B (PCR) (Negative) RSV RNA Qual (PCR) (Negative) SARS-CoV-2 RNA (RT-PCR) (Negative) Discharge Plan Discharge Clinical Impression: Hallucinations AMS (altered mental status) Qualifiers: Altered mental status type: unspecified Qualified Code(s): R41.82 - Altered mental status, unspecified UTI (urinary tract infection) Qualifiers: Urinary tract infection type: site unspecified Hematuria presence: with hematuria Qualified Code(s): N39.0 - Urinary tract infection, site not specified Patient Disposition: Still a Patient Prescriptions: No Action tamsulosin 0.4 mg capsule 0.4 mg PO DAILY 90 Days Qty: 90 3RF furosemide 40 mg tablet 40 mg PO DAILY Qty: 30 5RF docusate sodium 100 mg capsule 100 mg PO BID Qty: 60 5RF sucralfate 100 mg/mL suspension 10 ml PO BEDTIME Qty: 400 3RF pantoprazole 40 mg tablet,delayed release (DR/EC) 40 mg PO DAILY@0630 Qty: 90 3RF atorvastatin 80 mg tablet 80 mg PO BEDTIME potassium chloride 10 mEq tablet extended release 1 tab PO BID fluticasone furoate-vilanterol [Breo Ellipta] 200-25 mcg/dose Blister With Device 1 inh INHALATION DAILY ferrous sulfate [FeroSul] 325 mg (65 mg iron) tablet 325 mg PO MOWEFR fluticasone propionate 50 mcg/actuation spray,suspension 1 spray intranasal DAILY PRN (Reason: Allergy Symptoms) gabapentin 100 mg capsule 100 mg PO BID duloxetine 20 mg capsule,delayed release(DR/EC) 20 mg PO DAILY CertaVite Senior 0.4 mg-300 mcg- 250 mcg tablet 1 tab PO DAILY methylprednisolone 4 mg tablet 2 mg PO DAILY@1200 methylprednisolone 4 mg tablet 4 mg PO BID acetaminophen [Tylenol Arthritis Pain] 650 mg Tablet Extended Release 1,300 mg PO Q8H PRN (Reason: Pain) Xarelto 20 mg tablet 20 mg PO DAILY@1700 amiodarone 200 mg tablet 200 mg PO DAILY albuterol sulfate 2.5 mg /3 mL (0.083 %) solution for nebulization 2.5 mg inhalation Q4H PRN (Reason: Shortness Of Breath Or Wheezing) risperidone [Risperdal] 0.5 mg tablet 0.5 mg PO Q4H PRN (Reason: agitation) Qty: 14 0RF carvedilol 25 mg tablet 25 mg PO BID ketorolac 0.5 % drops 1 drp ophthalmic (eye) BID aspirin 81 mg tablet,delayed release (DR/EC) 81 mg PO DAILY verapamil 120 mg tablet extended release 120 mg PO DAILY sennosides [senna] 8.6 mg tablet 8.6 mg PO BEDTIME Qty: 90 4RF Print Language: Indonesian
--- NOTE | 2024-02-22 19:23 | PC.NURSE ---
pt very difficult stick, attempted x3, and tech attempted as well x2. nurse on next shift has been notified, will also notify provider. pt worklist will be attempted with the superintendent storage area.
[2024-02-22 19:52] VITALS: RESP 16
[2024-02-22 20:05] LABS: MANUAL DIFF FLAG NO
[2024-02-22 20:11] LABS: Basophils Percent Auto 0.3 % (0-2); Eosinophils Absolute Auto 0.1 X10*3/uL (0.0-0.4); Eosinophils Percent Auto 1.2 % (0-4); Hemoglobin 10.1 g/dl (14.0-18.0); Imm Gran Abs Auto 0.12 X10*3/uL (0.00-0.03); Lymphocytes Absolute Auto 1.4 X10*3/uL (1.2-4.9); Lymphocytes Percent Auto 11.9 % (20-40); Mean Corpuscular HGB Conc 29.7 g/dl (31.0-36.0); Mean Corpuscular Hemoglobin 25.4 pg (27.0-33.0); Mean Corpuscular Volume 85.6 fL (80.0-98.0); Mean Platelet Volume 9.3 fL (9.4-12.4); Monocytes Absolute Auto 0.9 X10*3/uL (0.1-1.2); Monocytes Percent Auto 7.4 % (2-11); Neutrophils Absolute Auto 9.2 x10*3/uL (2.0-8.3); Neutrophils Percent Auto 78.2 % (45-73); Platelet Count 353 X10*3/uL (160-400); Red Blood Count 3.97 X10*6/uL (4.60-5.80); Red Cell Distribution Width 15.7 % (11.0-16.0); White Blood Count 11.7 X10*3/uL (4.8-10.8)
[2024-02-22 20:25] LABS: Alanine Aminotransferase 11 U/L (0-40); Albumin Level 2.6 g/dL (3.5-5.0); Alkaline Phosphatase 85 U/L (39-117); Aspartate Amino Transferase 23 U/L (5-37); Bilirubin Direct 0.1 mg/dL (0.0-0.5); Bilirubin Total 0.3 mg/dL (0.0-1.0); Magnesium 2.1 mg/dL (1.6-2.6); Phosphorus 3.3 mg/dL (2.7-4.5); Total Protein 5.6 g/dL (6.5-8.0)
[2024-02-22 20:27] LABS: Ethanol < 10 mg/dL
[2024-02-22 20:28] LABS: Anion Gap 15 (12-20); Blood Urea Nitrogen 24 mg/dL (9-16); Calcium 8.3 mg/dL (8.4-10.2); Carbon Dioxide 26 mmol/L (22-29); Chloride 106 mmol/L (96-108); Creatinine Clr Calc Pharmacy 44.8; Estimated Glomerular Filt Rate 58; Glucose Random 171 mg/dL (60-115); Potassium 4.6 mmol/L (3.3-5.1); Sodium 142 mmol/L (135-145)
[2024-02-22 20:32] LABS: Troponin-I High Sensitivity 28.1 ng/L (<3.5-35.0)
[2024-02-22 20:59] LABS: Appearance Urine Cloudy; Color Urine Yellow; Glucose Urine UA Negative (Negative); Leukocyte Esterase Urine Large (3+) (Negative); Nitrite Urine Positive (Negative); Specific Gravity - Urine 1.025 (1.005-1.025); UMIC TRIGGER UACC YES; Urine Blood Small (1+) (Negative); Urine Ketones Negative (Negative); Urine Protein 30 (1+) mg/dL (Neg-Trace)
[2024-02-22 21:05] LABS: Bacteria Urine 4+ (None Seen); UACC Culture Trigger YES; WBC Urine >50 /HPF (0-5)
[2024-02-22 21:10] LABS: Ammonia 26 umol/L (13-55)
--- NOTE | 2024-02-22 21:19 | P.HPHOSP_ITS ---
History of Present Illness Date of Service: 02/22/24 Chief Complaint: Altered mentation This is a 88-year-old male with pertinent history of paroxysmal atrial fibrillation on anticoagulation, BPH, hypertension, congestive heart failure with preserved EF, gastroesophageal reflux disease, COPD not on home oxygen, dementia unspecified with behavioral disturbance who sent to the emergency department for evaluation of altered mentation. As per EMS, patient has been confused for a few days and experiencing hallucinations. History obtained with the help of software reliability engineer. Patient thinks it is 1985 and does not know where he is. He has no complaints at the time of my evaluation. Unable to obtain review of systems. As per the , patient has been confused for the last 1-2 days and is with decreased appetite. Also has been having visual hallucinations and paranoia. Review of Systems 2 Review of Systems: Yes Unobtainable due to mental status [facility] History Encephalopathy Head injury Atrial fibrillation with RVR Acute hypernatremia Fall Pacemaker (~2022) Stasis leg ulcer Pacemaker History of TIA (transient ischemic attack) (~2021) History of COVID-19 Tension headache Meningioma Hypertrophic cardiomyopathy Hearing loss Diastolic CHF, 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 Frequency of micturition Chronic abdominal pain Peripheral neuropathy Constipation Diverticulitis Polyarthralgia Primary osteoarthritis of right knee Urinary incontinence History of CVA (cerebrovascular accident) (~2018) Protrusion of lumbar intervertebral disc History of rib fracture Peripheral vascular disease GERD (gastroesophageal reflux disease) Obstructive sleep apnea BPH (benign prostatic hyperplasia) Anxiety and depression Paroxysmal atrial fibrillation COPD (chronic obstructive pulmonary disease) Obesity (BMI 30-39.9) Hypercholesterolemia Hypertension Anemia Current use of anticoagulant therapy Family History Father No problems noted. 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 Patient Tobacco Use Status: Never used Tobacco Years Smoked: 30 yrs ago Smoked in Last 30 Days: No Second Hand Smoke Exposure: No Use of substances other than those prescribed or required for medical reasons: No Advance Directives: Yes Advance Directives on File: Yes Advance Directives Date on File: 04/06/20 Do you have a plan to hurt others: No Plan service: No Current occupational status: unemployed and retired Current occupation: Right Handed Meds Allergies Allergy/AdvReac Type Severity Reaction Status Date / Time ezetimibe [From Zetia] Allergy Severe Anaphylaxis Verified 02/22/24 17:32 dabigatran etexilate Allergy Intermediate ITCHING Verified 02/22/24 17:32 [From PRADAXA] JORGE L Inhibitors Allergy Mild UNKNOWN, Verified 02/22/24 17:32 [Jorge L Inhibitors] FOUND IN MEDICAL RECORD 04/[address] GIPSON apixaban [From ELIQUIS] Allergy Unknown Rash Verified 02/22/24 17:32 rosuvastatin [Crestor] Allergy Unknown myalgia Verified 02/22/24 17:32 Home Medications ?Medication ?Instructions ?Recorded ?Confirmed ?Last Taken ?Type atorvastatin 80 mg tablet 80 mg PO BEDTIME 06/03/20 02/17/24 01/31/24 History carvedilol 25 mg tablet 25 mg PO BID 12/04/20 02/17/24 02/01/24 History potassium chloride 10 mEq 1 tab PO BID 11/14/21 02/17/24 02/01/24 History tablet,extended release fluticasone furoate 200 1 inh inhalation DAILY 12/06/22 02/17/24 02/01/24 History mcg-vilanterol 25 mcg/dose inhalation powder (Breo Ellipta) ferrous sulfate 325 mg (65 mg 325 mg PO MOWEFR 12/07/22 02/17/24 02/01/24 History iron) tablet (FeroSul) fluticasone propionate 50 1 spray intranasal DAILY PRN 12/07/22 02/17/24 Unknown History mcg/actuation nasal Allergy Symptoms spray,suspension aspirin 81 mg tablet,delayed 81 mg PO DAILY 08/17/23 02/17/24 02/01/24 History release ketorolac 0.5 % eye drops 1 drp ophthalmic (eye) BID 08/17/23 02/17/24 02/01/24 History verapamil 120 mg tablet,extended 120 mg PO DAILY 08/17/23 02/17/24 02/01/24 History release acetaminophen 650 mg 1,300 mg PO Q8H PRN Pain 02/01/24 02/17/24 Unknown History tablet,extended release (Tylenol Arthritis Pain) duloxetine 20 mg capsule,delayed 20 mg PO DAILY 02/01/24 02/17/24 02/01/24 History release gabapentin 100 mg capsule 100 mg PO BID 02/01/24 02/17/24 02/01/24 History methylprednisolone 4 mg tablet 2 mg PO DAILY@1200 02/01/24 02/17/24 01/31/24 History methylprednisolone 4 mg tablet 4 mg PO BID 02/01/24 02/17/24 01/31/24 History rivaroxaban 20 mg tablet (Xarelto) 20 mg PO DAILY@1700 02/01/24 02/17/24 02/01/24 History albuterol sulfate 2.5 mg/3 mL 2.5 mg inhalation Q4H PRN 02/17/24 02/17/24 Unknown History (0.083 %) solution for nebulization Shortness Of Breath Or Wheezing amiodarone 200 mg tablet 200 mg PO DAILY 02/17/24 02/17/24 Unknown History albuterol sulfate 90 mcg/actuation inhalation 02/22/24 Unknown History aerosol inhaler guaifenesin 600 mg tablet, 600 mg PO Q12H cough 02/22/24 Unknown History extended release 12 hr losartan 50 mg tablet 50 mg PO DAILY 02/22/24 Unknown History eggzhlgd-qiv-umxej acid 0.4 tab PO 02/22/24 Unknown History mg-lycopene 300 mcg-lutein 250 mcg tablet (CertaVite Senior) Physical Exam 2 Vital Signs and Narrative: Vital Signs: Last Vital Signs Temp 97.7 F 02/22/24 17:30 Pulse 80 02/22/24 17:30 Resp 16 02/22/24 19:52 BP 134/70 02/22/24 17:30 Pulse Ox 100 02/22/24 17:30 O2 Del Method Room Air 02/22/24 17:30 BMI result Body Mass Index 32.1 Elderly male lying in bed in no distress Neck supple, no JVD Regular rate and rhythm, S1-S2 heard Regular breath sounds bilaterally, no wheezing or crackles appreciated Abdomen soft nontender, no guarding, no rigidity Patient is awake, alert and oriented to self, disoriented to place, time and person ; no focal motor deficit Psych: Normal mood No pedal edema Results Labs 02/22/24 20:00 02/22/24 20:00 Labs: Laboratory Results - last 24 hr 02/22/24 02/22/24 02/22/24 18:04 20:00 20:52 MCV 85.6 MCH 25.4 L MCHC 29.7 L RDW 15.7 Plt Count 353 MPV 9.3 L Immature Gran % (Auto) 1.0 H Neut % (Auto) 78.2 H Lymph % (Auto) 11.9 L [place] % (Auto) 7.4 Eos % (Auto) 1.2 Baso % (Auto) 0.3 Lymph # (Auto) 1.4 [place] # (Auto) 0.9 Eos # (Auto) 0.1 Baso # (Auto) 0.0 Abs Immat Gran (auto) 0.12 H Absolute Neuts (auto) 9.2 H Absolute Nucleated RBC 0.000 Nucleated RBC % (auto) 0.0 Anion Gap 15 Estim Creat Clear Calc 44.8 Estimated GFR 58 Random Glucose 171 H Calcium 8.3 L Phosphorus 3.3 Magnesium 2.1 Total Bilirubin 0.3 Direct Bilirubin 0.1 AST 23 ALT 11 Alkaline Phosphatase 85 Ammonia Troponin I High Sens 28.1 D Total Protein 5.6 L Albumin 2.6 L Urine Color Yellow Urine Appearance Cloudy Urine pH 6.0 Ur Specific [place] 1.025 Urine Protein 30 (1+) H Urine Glucose (UA) Negative Urine Ketones Negative Urine Blood Small (1+) H Urine Nitrite Positive H Ur Leukocyte Esterase Large (3+) H Urine RBC 6-10 H Urine WBC >50 H Ur Squamous Epith Cells 6-10 Urine Bacteria 4+ Hyaline Casts 3-5 Ethyl Alcohol < 10 Influenza Type A (PCR) NEGATIVE Influenza Type B (PCR) NEGATIVE RSV RNA Qual (PCR) NEGATIVE SARS-CoV-2 RNA (RT-PCR) NEGATIVE 02/22/24 20:56 MCV MCH MCHC RDW Plt Count MPV Immature Gran % (Auto) Neut % (Auto) Lymph % (Auto) [place] % (Auto) Eos % (Auto) Baso % (Auto) Lymph # (Auto) [place] # (Auto) Eos # (Auto) Baso # (Auto) Abs Immat Gran (auto) Absolute Neuts (auto) Absolute Nucleated RBC Nucleated RBC % (auto) Anion Gap Estim Creat Clear Calc Estimated GFR Random Glucose Calcium Phosphorus Magnesium Total Bilirubin Direct Bilirubin AST ALT Alkaline Phosphatase Ammonia 26 Troponin I High Sens Total Protein Albumin Urine Color Urine Appearance Urine pH Ur Specific [place] Urine Protein Urine Glucose (UA) Urine Ketones Urine Blood Urine Nitrite Ur Leukocyte Esterase Urine RBC Urine WBC Ur Squamous Epith Cells Urine Bacteria Hyaline Casts Ethyl Alcohol Influenza Type A (PCR) Influenza Type B (PCR) RSV RNA Qual (PCR) SARS-CoV-2 RNA (RT-PCR) Assessment and Plan (1) AMS (altered mental status): Qualifiers: Altered mental status type: unspecified Qualified Code(s): R41.82 - Altered mental status, unspecified Status: Acute (2) UTI (urinary tract infection): Qualifiers: Hematuria presence: with hematuria Urinary tract infection type: site unspecified Qualified Code(s): N39.0 - Urinary tract infection, site not specified; R31.9 - Hematuria, unspecified Status: Acute Plan This is a 88-year-old male with pertinent history of paroxysmal atrial fibrillation on anticoagulation, BPH, hypertension, congestive heart failure with preserved EF, gastroesophageal reflux disease, COPD not on home oxygen, dementia unspecified who sent to the emergency department for evaluation of altered mentation. #. Acute metabolic encephalopathy due to acute UTI: Will admit patient with IV antibiotics. Closely monitor mentation. Urine culture pending. No sepsis #.? BPH on Flomax #.? COPD on fluticasone and vilanterol.? No concern for exacerbation at the time of admission #.? Paroxysmal atrial fibrillation :rate well controlled on admission.? Continue Xarelto #.? Gastroesophageal reflux disease :continue PPI #.? Hypertension :continue home medications #. Congestive Heart failure with preserved ejection fraction. Continue Lasix #. Dementia, unspecified with behavioral disturbance: Maintain sleep-wake cycle. On risperidone Med rec pending DVT prophylaxis: Xarelto Full code Admit as inpatient and will require two night minimum hospital stay for IV antibiotics (as above), which is not possible in a lesser acute setting. Quality Stroke Does the patient have a stroke diagnosis?: No VTE Prior VTE?: No VTE Risk Level:: Medical - moderate - high VTE Device Contraindication: Treatment Not Indicated VTE Drug Contraindication: N/A - Med Ordered
[2024-02-22] MEDS: cefTRIAXone sodium 1 GM VIAL IVPUSH (21:25)
[2024-02-22 21:30] VITALS: BP 131/63; PULSE 80; RESP 18; TEMP 36.4; O2SAT 95
--- NOTE | 2024-02-22 21:30 | PC.NURSE ---
Pt medicated per [facility] Plan of care ongoing.
[2024-02-22 22:28] LABS: Troponin-I High Sensitivity 26.2 ng/L (<3.5-35.0)
[2024-02-23 00:02] VITALS: BP 142/69; PULSE 86; RESP 20; O2SAT 94
[2024-02-23] MEDS: 0.9 % Sodium Chloride Flush 3 ML SYRINGE IVFLUSH ×4 (00:09→19:00)
[2024-02-23 02:31] VITALS: BP 127/68; PULSE 92; RESP 18; TEMP 36.7; O2SAT 95
[2024-02-23 02:32] VITALS: BMI 31.5
[2024-02-23 07:36] VITALS: BP 111/52; PULSE 83; RESP 16; TEMP 36; O2SAT 97
[2024-02-23 09:07] LABS: MANUAL DIFF FLAG NO
[2024-02-23 09:10] LABS: Basophils Absolute Auto 0.1 X10*3/uL (0.0-0.2); Basophils Percent Auto 0.5 % (0-2); Eosinophils Absolute Auto 0.1 X10*3/uL (0.0-0.4); Hemoglobin 10.7 g/dl (14.0-18.0); Imm Gran Abs Auto 0.12 X10*3/uL (0.00-0.03); Imm Gran Pct Auto 1.1 % (0.0-0.4); Lymphocytes Absolute Auto 1.7 X10*3/uL (1.2-4.9); Lymphocytes Percent Auto 15.3 % (20-40); Mean Corpuscular HGB Conc 30.6 g/dl (31.0-36.0); Mean Corpuscular Hemoglobin 25.7 pg (27.0-33.0); Mean Corpuscular Volume 84.1 fL (80.0-98.0); Mean Platelet Volume 9.3 fL (9.4-12.4); Monocytes Percent Auto 9.1 % (2-11); Neutrophils Absolute Auto 8.1 x10*3/uL (2.0-8.3); Platelet Count 313 X10*3/uL (160-400); Red Blood Count 4.16 X10*6/uL (4.60-5.80); Red Cell Distribution Width 15.9 % (11.0-16.0); White Blood Count 11.1 X10*3/uL (4.8-10.8)
--- NOTE | 2024-02-23 09:26 | PHA.MEDREC ---
Pharmacy Consult ? Medication Reconciliation Pharmacy has completed the medication reconciliation. Spoke to patient at bedside with help from principal hardware architect services. He didn't know all his meds but was able to confirm them when I listed them off to him. He states the ketorolac eye drops are now TID, and he doesn't take the guaifenesin as that's only when he has a cold. He did not remember when he took his meds last and states he takes nothing over the counter.
--- NOTE | 2024-02-23 13:39 | MHC.CM.PN ---
IMM DELIVERED TO VIA TELEPHONE PT CONTINUES TO HAVE AMS. REQUESTS COPY BE LEFT AT BEDSIDE. PT LIVES WITH SPOUSE AND GRANDSON WHO IS A LIVE IN SEWAGE DISPOSAL ENGINEER. PT IS ACTIVE WITH [facility] FOR SN/PT. PT USES [facility] FOR MOBILITY AND HAS C PAP BUT REFUSES TO WEAR PER . +HCP ON FILE. [facility]: HOME WITH RESUMPTION OF [facility] AND SEWAGE DISPOSAL ENGINEER SERVICES. PT WILL NEED BLS TRANSPORT. CM WILL CONTINUE TO FOLLOW FOR ANY CHANGE TO DC PLAN/NEEDS.
--- NOTE | 2024-02-23 13:49 | P.PNIM_ITS ---
Subjective Subjective Date of Service: 02/23/24 Interval History: seen and examined this AM knows the year and his name; unsure of hospital no other complaints Physical Exam 2 Vital Signs: Vital Signs: Last Vital Signs Temp 96.8 F 02/23/24 07:36 Pulse 83 02/23/24 07:36 Resp 16 02/23/24 07:36 BP 111/52 L 02/23/24 07:36 Pulse Ox 97 02/23/24 07:36 O2 Del Method Room Air 02/23/24 07:36 BMI result Body Mass Index 31.5 Const: Other: General - no acute distress, appears comfortable Cardiovascular - regular rate and rhythm, S1-S2 Lungs - normal respiratory effort, clear to auscultation bilaterally, no wheezing Abdomen - soft, nontender, no rebound or guarding Extremities - no edema bilaterally Neuro - awake and alert, no focal deficits Objective Data Active Medications Acetaminophen (Acetaminophen 325 Mg Tablet) 650 mg PO Q6H PRN PRN Reason: Pain, Mild 1-3,fever,headache Calcium Carbonate (Calcium Carbonate 750 Mg Tab.Chew) 750 mg PO Q4H PRN PRN Reason: Heartburn Ceftriaxone Sodium (Ceftriaxone Sodium 1 Gm Vial) 1 gm IVPUSH Q24H [place]EE[place] Magnesium Hydroxide (Milk Of Magnesia 30 Ml Oral.Susp) 30 ml PO DAILY PRN PRN Reason: Constipation Melatonin (Melatonin 3 Mg Tablet) 6 mg PO BEDTIME PRN PRN Reason: Insomnia Ondansetron HCl (Ondansetron Hcl 4 Mg/2 Ml Vial) 4 mg IVPUSH Q8H PRN PRN Reason: Nausea and Vomiting Sodium Chloride (0.9 % Sodium Chloride Flush 3 Ml Syringe) [address] [facility] Last Admin: 02/23/24 07:26 Dose: 3 ml Documented By: KUMAR Labs 02/23/24 08:36 02/22/24 20:00 Labs: Laboratory Results - last 24 hr 02/22/24 02/22/24 02/22/24 18:04 20:00 20:52 MCV 85.6 MCH 25.4 L MCHC 29.7 L RDW 15.7 Plt Count 353 MPV 9.3 L Immature Gran % (Auto) 1.0 H Neut % (Auto) 78.2 H Lymph % (Auto) 11.9 L [place] % (Auto) 7.4 Eos % (Auto) 1.2 Baso % (Auto) 0.3 Lymph # (Auto) 1.4 [place] # (Auto) 0.9 Eos # (Auto) 0.1 Baso # (Auto) 0.0 Abs Immat Gran (auto) 0.12 H Absolute Neuts (auto) 9.2 H Absolute Nucleated RBC 0.000 Nucleated RBC % (auto) 0.0 Anion Gap 15 Estim Creat Clear Calc 44.8 Estimated GFR 58 Random Glucose 171 H Calcium 8.3 L Phosphorus 3.3 Magnesium 2.1 Total Bilirubin 0.3 Direct Bilirubin 0.1 AST 23 ALT 11 Alkaline Phosphatase 85 Ammonia Troponin I High Sens 28.1 D Total Protein 5.6 L Albumin 2.6 L Urine Color Yellow Urine Appearance Cloudy Urine pH 6.0 Ur Specific [place] 1.025 Urine Protein 30 (1+) H Urine Glucose (UA) Negative Urine Ketones Negative Urine Blood Small (1+) H Urine Nitrite Positive H Ur Leukocyte Esterase Large (3+) H Urine RBC 6-10 H Urine WBC >50 H Ur Squamous Epith Cells 6-10 Urine Bacteria 4+ Hyaline Casts 3-5 Ethyl Alcohol < 10 Influenza Type A (PCR) NEGATIVE Influenza Type B (PCR) NEGATIVE RSV RNA Qual (PCR) NEGATIVE SARS-CoV-2 RNA (RT-PCR) NEGATIVE 02/22/24 02/22/24 02/23/24 20:56 21:58 08:36 MCV 84.1 MCH 25.7 L MCHC 30.6 L RDW 15.9 Plt Count 313 MPV 9.3 L Immature Gran % (Auto) 1.1 H Neut % (Auto) 73.0 Lymph % (Auto) 15.3 L [place] % (Auto) 9.1 Eos % (Auto) 1.0 Baso % (Auto) 0.5 Lymph # (Auto) 1.7 [place] # (Auto) 1.0 Eos # (Auto) 0.1 Baso # (Auto) 0.1 Abs Immat Gran (auto) 0.12 H Absolute Neuts (auto) 8.1 Absolute Nucleated RBC 0.000 Nucleated RBC % (auto) 0.0 Anion Gap Estim Creat Clear Calc Estimated GFR Random Glucose Calcium Phosphorus Magnesium Total Bilirubin Direct Bilirubin AST ALT Alkaline Phosphatase Ammonia 26 Troponin I High Sens 26.2 Total Protein Albumin Urine Color Urine Appearance Urine pH Ur Specific [place] Urine Protein Urine Glucose (UA) Urine Ketones Urine Blood Urine Nitrite Ur Leukocyte Esterase Urine RBC Urine WBC Ur Squamous Epith Cells Urine Bacteria Hyaline Casts Ethyl Alcohol Influenza Type A (PCR) Influenza Type B (PCR) RSV RNA Qual (PCR) SARS-CoV-2 RNA (RT-PCR) Microbiology Microbiology Results: Microbiology 02/22/24 21:06 Urine Culture - Preliminary Urine clean catch - Clean Catch Midstream Culture in progress. Assessment and Plan (1) UTI (urinary tract infection): Status: Acute (2) AMS (altered mental status): Status: Acute Plan 88-year-old male with a past medical history of paroxysmal AFib on anticoagulation, BPH, hypertension, CHF with preserved ejection fraction, GERD, COPD, dementia unspecified who presented to the emergency room with worsening mental status. Found to have acute metabolic encephalopathy due to suspected urinary tract infection. 1. Acute toxic/metabolic encephalopathy due to urinary tract infection Patient appears to be slowly improving Continue IV antibiotics Follow cultures 2. Paroxysmal AFib Started on amiodarone last admission, continue the same On Coreg and verapamil as well, holding Coreg today given soft blood pressure, continue verapamil Continue Xarelto 3. Chronic HFpEF Not in fluid overload Hold Lasix today, consider restarting tomorrow 4. COPD, at baseline Continue his baseline admissions 5. GERD PPI 6. Hypertension Blood pressure is on the softer side today On Coreg and losartan plus verapamil Holding Coreg/losartan, continue verapamil 7. Dementia with unspecified behavioral disturbances Continue nonpharmacologic therapies On p.r.n. risperidone at baseline, we will continue Full Code DVT pptx - Xarelto Quality Stroke Does the patient have a stroke diagnosis?: No VTE Prior VTE?: No VTE Risk Level:: Medical - moderate - high VTE Device Contraindication: Treatment Not Indicated VTE Drug Contraindication: N/A - Med Ordered
[2024-02-23 14:47] LABS: Anion Gap 14 (12-20); Blood Urea Nitrogen 26 mg/dL (9-16); Calcium 8.1 mg/dL (8.4-10.2); Carbon Dioxide 21 mmol/L (22-29); Chloride 110 mmol/L (96-108); Creatinine Clr Calc Pharmacy 46.4; Estimated Glomerular Filt Rate > 60; Glucose Random 115 mg/dL (60-115); Sodium 140 mmol/L (135-145)
[2024-02-23 15:00] VITALS: BP 133/66; PULSE 84
[2024-02-23] MEDS: VerapamiL HCL SR 120 MG TABLET.ER PO (15:00)
[2024-02-23] MEDS: methylPREDNISolone 4 MG TABLET 2 MG PO (15:00)
[2024-02-23] MEDS: Amiodarone HCL 200 MG TABLET PO (15:00)
[2024-02-23 15:05] VITALS: BP 135/61; PULSE 83; RESP 16; TEMP 36.6; O2SAT 96
[2024-02-23] MEDS: Rivaroxaban 20 MG TABLET PO (17:09)
[2024-02-23] MEDS: Docusate Sodium 100 MG CAPSULE PO (19:00)
[2024-02-23] MEDS: Sennosides 8.6 MG TABLET PO (19:00)
[2024-02-23] MEDS: Gabapentin 100 MG CAPSULE PO (19:00)
[2024-02-23] MEDS: methylPREDNISolone 4 MG TABLET PO (19:00)
[2024-02-23] MEDS: Sucralfate Oral Suspension 1 GM/10 ML ORAL.SUSP PO (19:00)
[2024-02-23] MEDS: cefTRIAXone sodium 1 GM VIAL IVPUSH (19:00)
[2024-02-23] MEDS: Atorvastatin Calcium 80 MG TABLET PO (19:00)
[2024-02-23 23:49] VITALS: BP 132/66; PULSE 78; RESP 17; TEMP 36.2; O2SAT 93
[2024-02-24] MEDS: Omeprazole 20 MG CAPSULE.DR PO (05:24)
[2024-02-24 07:56] VITALS: BP 142/73; PULSE 82; RESP 14; TEMP 36.2; O2SAT 95
[2024-02-24] MEDS: DULoxetine HCl 20 MG CAPSULE.DR PO (09:23)
[2024-02-24] MEDS: Amiodarone HCL 200 MG TABLET PO (09:23)
[2024-02-24] MEDS: 0.9 % Sodium Chloride Flush 3 ML SYRINGE IVFLUSH ×4 (09:23→20:21)
[2024-02-24] MEDS: Tamsulosin HCL 0.4 MG CAPSULE PO (09:23)
[2024-02-24] MEDS: Aspirin Enteric Coated 81 MG TABLET.DR PO (09:23)
[2024-02-24] MEDS: Gabapentin 100 MG CAPSULE PO ×2 (09:24→20:19)
[2024-02-24] MEDS: Docusate Sodium 100 MG CAPSULE PO ×2 (09:24→20:19)
[2024-02-24] MEDS: VerapamiL HCL SR 120 MG TABLET.ER PO (09:24)
[2024-02-24] MEDS: methylPREDNISolone 4 MG TABLET PO ×2 (09:24→20:19)
[2024-02-24] MEDS: methylPREDNISolone 4 MG TABLET 2 MG PO (11:32)
--- NOTE | 2024-02-24 12:24 | HO.PM.IMPN ---
Subjective Subjective Date of Service: 02/24/24 Physical Exam Vital Signs: Vital Signs: Last Vital Signs Temp 97.1 F 02/24/24 07:56 Pulse 82 02/24/24 07:56 Resp 14 02/24/24 07:56 BP 142/73 H 02/24/24 07:56 Pulse Ox 95 02/24/24 07:56 O2 Del Method Room Air 02/24/24 07:56 BMI result Body Mass Index 31.5 Objective Data Active Medications Acetaminophen (Acetaminophen 325 Mg Tablet) 650 mg PO Q6H PRN PRN Reason: Pain, Mild 1-3,fever,headache Albuterol Sulfate (Albuterol Sulfate 90 Mcg 8 Gm Inhaler) 1 puff INHALE Q4H PRN PRN Reason: Shortness Of Breath Or Wheezing Amiodarone HCl (Amiodarone Hcl 200 Mg Tablet) 200 mg PO DAILY [facility] Last Admin: 02/24/24 09:23 Dose: 200 mg Documented By: GUERO Aspirin (Aspirin Enteric Coated 81 Mg Tablet.) 81 mg PO DAILY [facility] Last Admin: 02/24/24 09:23 Dose: 81 mg Documented By: GUERO Atorvastatin Calcium (Atorvastatin Calcium 80 Mg Tablet) 80 mg PO BEDTIME [facility] Last Admin: 02/23/24 19:00 Dose: 80 mg Documented By: CK Calcium Carbonate (Calcium Carbonate 750 Mg Tab.Chew) 750 mg PO Q4H PRN PRN Reason: Heartburn Ceftriaxone Sodium (Ceftriaxone Sodium 1 Gm Vial) 1 gm IVPUSH Q24H [facility] Last Admin: 02/23/24 19:00 Dose: 1 gm Documented By: CK Docusate Sodium (Docusate Sodium 100 Mg Capsule) 100 mg PO BID [facility] Last Admin: 02/24/24 09:24 Dose: 100 mg Documented By: GUERO Duloxetine HCl (Duloxetine Hcl 20 Mg Capsule.) 20 mg PO DAILY [facility] Last Admin: 02/24/24 09:23 Dose: 20 mg Documented By: GUERO Fluticasone Propionate (Fluticasone Propionate Nasal 16 Gm [place]) 1 spray NOSTRIL-B DAILY PRN PRN Reason: Allergy Symptoms Fluticasone/Vilanterol (Fluticasone/Vilanterol 200/25 Blst.W.Dev) 1 puff INHALE DAILY [facility] Last Admin: 02/24/24 08:03 Dose: Not Given Documented By: ANTONELLA Non-Admin Reason: Med Not Available Gabapentin (Gabapentin 100 Mg Capsule) 100 mg PO BID [facility] Last Admin: 02/24/24 09:24 Dose: 100 mg Documented By: GUERO Magnesium Hydroxide (Milk Of Magnesia 30 Ml Oral.Susp) 30 ml PO DAILY PRN PRN Reason: Constipation Melatonin (Melatonin 3 Mg Tablet) 6 mg PO BEDTIME PRN PRN Reason: Insomnia Methylprednisolone (Methylprednisolone 4 Mg Tablet) 2 mg PO DAILY@1200 [facility] Last Admin: 02/24/24 11:32 Dose: 2 mg Documented By: GUERO Methylprednisolone (Methylprednisolone 4 Mg Tablet) 4 mg PO BID [facility] Last Admin: 02/24/24 09:24 Dose: 4 mg Documented By: GUERO Omeprazole (Omeprazole 20 Mg Capsule.Dr) 20 mg PO DAILY@0630 [facility] Last Admin: 02/24/24 05:24 Dose: 20 mg Documented By: CK Ondansetron HCl (Ondansetron Hcl 4 Mg/2 Ml Vial) 4 mg IVPUSH Q8H PRN PRN Reason: Nausea and Vomiting Risperidone (Risperidone 0.5 Mg Tablet) 0.5 mg PO Q4H PRN PRN Reason: agitation Rivaroxaban (Rivaroxaban 20 Mg Tablet) 20 mg PO DAILY@1700 [facility] Last Admin: 02/23/24 17:09 Dose: 20 mg Documented By: KUMAR Senna (Sennosides 8.6 Mg Tablet) 8.6 mg PO BEDTIME [facility] Last Admin: 02/23/24 19:00 Dose: 8.6 mg Documented By: CK Sodium Chloride (0.9 % Sodium Chloride Flush 3 Ml Syringe) 3 ml IVFLUSH QSHIFT [facility] Last Admin: 02/24/24 09:23 Dose: 3 ml Documented By: GUERO Sucralfate (Sucralfate Oral Suspension 1 Gm/10 Ml Oral.Susp) 1 gm PO BEDTIME [facility] Last Admin: 02/23/24 19:00 Dose: 1 gm Documented By: CK Tamsulosin HCl (Tamsulosin Hcl 0.4 Mg Capsule) 0.4 mg PO DAILY [facility] Last Admin: 02/24/24 09:23 Dose: 0.4 mg Documented By: HO.GRAZIC Verapamil HCl (Verapamil Hcl Sr 120 Mg Tablet.Er) 120 mg PO DAILY [facility]; Protocol Last Admin: 02/24/24 09:24 Dose: 120 mg Documented By: GUERO Labs 02/23/24 08:36 02/23/24 14:19 Labs: Laboratory Results - last 24 hr 02/23/24 14:19 Anion Gap 14 Estim Creat Clear Calc 46.4 Estimated GFR > 60 Random Glucose 115 Calcium 8.1 L Microbiology Microbiology Results: Microbiology 02/22/24 21:06 Urine Culture - Preliminary Urine clean catch - Clean Catch Midstream Pseudomonas species Enterococcus/Streptococcus sp Assessment and Plan (1) UTI (urinary tract infection): Status: Acute (2) AMS (altered mental status): Status: Acute Plan 88-year-old male with a past medical history of paroxysmal AFib on anticoagulation, BPH, hypertension, CHF with preserved ejection fraction, GERD, COPD, dementia unspecified who presented to the emergency room with worsening mental status. Found to have acute metabolic encephalopathy due to suspected urinary tract infection. Acute toxic/metabolic encephalopathy due to Pseudomonas/Enterococcus UTI Patient appears to be slowly improving Continue IV antibiotics Follow cultures Paroxysmal AFib Started on amiodarone last admission, continue the same On Coreg and verapamil as well, holding Coreg today given soft blood pressure, continue verapamil Continue Xarelto Chronic HFpEF Not in fluid overload Hold Lasix due to soft BP COPD, at baseline Continue his baseline admissions GERD PPI Hypertension Blood pressure is on the softer side today Holding Coreg/losartan, continue verapamil Dementia with unspecified behavioral disturbances Continue nonpharmacologic therapies On p.r.n. risperidone at baseline, we will continue Full Code DVT pptx - Xarelto Quality Stroke Does the patient have a stroke diagnosis?: No VTE Prior VTE?: No VTE Risk Level:: Medical - moderate - high VTE Device Contraindication: Treatment Not Indicated VTE Drug Contraindication: N/A - Med Ordered
[2024-02-24 15:28] VITALS: BP 135/63; PULSE 86; RESP 14; TEMP 36.1; O2SAT 96
[2024-02-24] MEDS: Rivaroxaban 20 MG TABLET PO (16:13)
[2024-02-24] MEDS: Atorvastatin Calcium 80 MG TABLET PO (20:19)
[2024-02-24] MEDS: cefTRIAXone sodium 1 GM VIAL IVPUSH (20:19)
[2024-02-24] MEDS: Sucralfate Oral Suspension 1 GM/10 ML ORAL.SUSP PO (20:19)
[2024-02-24] MEDS: Sennosides 8.6 MG TABLET PO (20:19)
[2024-02-24 23:26] VITALS: BP 167/80; PULSE 78; RESP 16; TEMP 36; O2SAT 95
[2024-02-25] MEDS: Omeprazole 20 MG CAPSULE.DR PO (06:03)
[2024-02-25 07:46] VITALS: BP 172/79; PULSE 84; RESP 16; TEMP 36.3; O2SAT 98
[2024-02-25] MEDS: Docusate Sodium 100 MG CAPSULE PO (08:21)
[2024-02-25] MEDS: VerapamiL HCL SR 120 MG TABLET.ER PO (08:21)
[2024-02-25] MEDS: carvediloL 25 MG TABLET PO (08:21)
[2024-02-25] MEDS: Tamsulosin HCL 0.4 MG CAPSULE PO (08:21)
[2024-02-25] MEDS: DULoxetine HCl 20 MG CAPSULE.DR PO (08:21)
[2024-02-25] MEDS: Aspirin Enteric Coated 81 MG TABLET.DR PO (08:22)
[2024-02-25] MEDS: Amiodarone HCL 200 MG TABLET PO (08:22)
[2024-02-25] MEDS: 0.9 % Sodium Chloride Flush 3 ML SYRINGE IVFLUSH (08:22)
[2024-02-25] MEDS: Gabapentin 100 MG CAPSULE PO (08:22)
[2024-02-25] MEDS: Piperacillin Sodium/Tazobactam 3.375 GM in 0.9 % Sodium Chloride 50 ML IV (08:23)
[2024-02-25] MEDS: methylPREDNISolone 4 MG TABLET PO (08:23)
--- NOTE | 2024-02-25 10:10 | PM.DS ---
DS: Providers Provider Date of Service: 02/25/24 Date of admission: 02/22/24 21:18 Date of discharge: 02/25/24 Primary care physician: Crystal Vera MD DS: Diagnosis Discharge Diagnosis (1) UTI (urinary tract infection): Status: Acute (2) AMS (altered mental status): Status: Acute DS: Summary Hospital Course Hospital Course: HPI from admission H&P: This is a 88-year-old male with pertinent history of paroxysmal atrial fibrillation on anticoagulation, BPH, hypertension, congestive heart failure with preserved EF, gastroesophageal reflux disease, COPD not on home oxygen, dementia unspecified with behavioral disturbance who sent to the emergency department for evaluation of altered mentation. As per EMS, patient has been confused for a few days and experiencing hallucinations. History obtained with the help of computed tomography scanner operator. Patient thinks it is 1985 and does not know where he is. He has no complaints at the time of my evaluation. Unable to obtain review of systems. As per the , patient has been confused for the last 1-2 days and is with decreased appetite. Also has been having visual hallucinations and paranoia. Hospital Course: Patient presented with acute metabolic encephalopathy due urinary tract infection. He was empirically initiated on IV ceftriaxone and his cultures were followed. Cultures ultimately grew Pseudomonas sensitive to fluoroquinolones and Enterococcus faecalis sensitive to ampicillin. He will be transitioned to oral Levaquin and Augmentin for 7 days of treatment. As the patient's infection was treated, his encephalopathy resolved. On the day of discharge the patient is oriented to self, location and situation. The patient was evaluated by Physical therapy who recommended short-term rehab, however family elected for home with services. Time Attestation Discharge Coordination Time (in mins): 40 Quality: Safe Use of Opioids Does Pt have an Active Cancer Diagnosis on the Problem List?: No Quality: Stroke Does the patient have a stroke diagnosis?: No Physical Exam Vital Signs: Vital Signs: Last Vital Signs Temp 97.3 F 02/25/24 07:46 Pulse 84 02/25/24 07:46 Resp 16 02/25/24 07:46 BP 172/79 H 02/25/24 07:46 Pulse Ox 98 02/25/24 07:46 O2 Del Method Room Air 02/25/24 07:46 BMI result Body Mass Index 31.5 Const: Other: General - no acute distress, appears comfortable Cardiovascular - regular rate and rhythm, S1-S2 Lungs - normal respiratory effort, clear to auscultation bilaterally, no wheezing Abdomen - soft, nontender, no rebound or guarding Extremities - no edema bilaterally Neuro - awake and alert, no focal deficits DS: Data Data Completed and Pending Completed studies during hospitalization [Text1]: Procedures Insertion of Endotracheal Airway into Trachea, Via Natural or Artificial Opening Endoscopic (04/01/20) Insertion of Infusion Device into Superior Vena Cava, Percutaneous Approach (04/01/20) Insertion of Pacemaker Lead into Right Atrium, Percutaneous Approach (03/25/22) Insertion of Pacemaker Lead into Right Ventricle, Percutaneous Approach (03/25/22) Insertion of Pacemaker, Dual Chamber into Chest Subcutaneous Tissue and Fascia, Open Approach (03/25/22) Introduction of Remdesivir Anti-infective into Peripheral Vein, Percutaneous Approach, [employer] (04/01/20) Respiratory Ventilation, Greater than 96 Consecutive Hours (04/01/20) Transfusion of Convalescent Plasma (Nonautologous) into Peripheral Vein, Percutaneous Approach, [employer] 5 (04/01/20) Ultrasonography of Superior Vena Cava, Guidance (04/01/20) Discharge Plan Discharge Anticipated Discharge Date/Time: 02/25/24 09:54 Patient Disposition: Home Health Service Discharge Diagnosis: UTI Referrals: [facility] [Outside] - 1 Week (RESUMPTION OF HOME SERVICES, [facility] AND PHYSICAL THERAPY- A NURSE WILL CALL YOU TO SET UP RESUMPTION VISIT) Crystal Vera MD [Primary Care Provider] - 1 Week Discharge Medications: New amoxicillin-pot clavulanate 875-125 mg tablet 1 tab PO Q12H Qty: 14 0RF levofloxacin 250 mg tablet 250 mg PO DAILY Qty: 7 0RF Continued tamsulosin 0.4 mg capsule 0.4 mg PO DAILY 90 Days Qty: 90 3RF furosemide 40 mg tablet 40 mg PO DAILY Qty: 30 5RF docusate sodium 100 mg capsule 100 mg PO BID Qty: 60 5RF sucralfate 100 mg/mL suspension 10 ml PO BEDTIME Qty: 400 3RF pantoprazole 40 mg tablet,delayed release (DR/EC) 40 mg PO DAILY@0630 Qty: 90 3RF atorvastatin 80 mg tablet 80 mg PO BEDTIME potassium chloride 10 mEq tablet extended release 1 tab PO BID fluticasone furoate-vilanterol [Breo Ellipta] 200-25 mcg/dose Blister With Device 1 inh INHALATION DAILY ferrous sulfate [FeroSul] 325 mg (65 mg iron) tablet 325 mg PO MOWEFR fluticasone propionate 50 mcg/actuation spray,suspension 1 spray intranasal DAILY PRN (Reason: Allergy Symptoms) gabapentin 100 mg capsule 100 mg PO BID duloxetine 20 mg capsule,delayed release(DR/EC) 20 mg PO DAILY methylprednisolone 4 mg tablet 2 mg PO DAILY@1200 methylprednisolone 4 mg tablet 4 mg PO BID acetaminophen [Tylenol Arthritis Pain] 650 mg Tablet Extended Release 1,300 mg PO Q8H PRN (Reason: Pain) Xarelto 20 mg tablet 20 mg PO DAILY@1700 amiodarone 200 mg tablet 200 mg PO DAILY albuterol sulfate 2.5 mg /3 mL (0.083 %) solution for nebulization 2.5 mg inhalation Q4H PRN (Reason: Shortness Of Breath Or Wheezing) risperidone [Risperdal] 0.5 mg tablet 0.5 mg PO Q4H PRN (Reason: agitation) Qty: 14 0RF losartan 50 mg tablet 50 mg PO DAILY albuterol sulfate 90 mcg/actuation HFA aerosol inhaler 1 inh INHALATION Q4H PRN (Reason: Shortness Of Breath Or Wheezing) CertaVite Senior 0.4 mg-300 mcg- 250 mcg tablet 1 tab PO DAILY carvedilol 25 mg tablet 25 mg PO BID ketorolac 0.5 % drops 1 drp ophthalmic (eye) TID aspirin 81 mg tablet,delayed release (DR/EC) 81 mg PO DAILY verapamil 120 mg tablet extended release 120 mg PO DAILY sennosides [senna] 8.6 mg tablet 8.6 mg PO BEDTIME Qty: 90 4RF Discharge Orders: Discharge Order (Routine); Ordered 02/25/24 Ordered By: Leonardo Crowe Diet: Advance to usual diet Activity on Discharge: As tolerated Stand Alone Forms: Patient Portal Discharge page Print Language: Serbian Care Plan Goals: To complete treatment for UTI Health Concerns: Urinary tract infection Plan of Treatment: Complete antibiotics for 7 more days Assessment: See discharge summary
[2024-02-25] MEDS: Fluticasone/Vilanterol 200/25 BLST.W.DEV 1 PUFF INHALE (11:05)
[2024-02-25] MEDS: methylPREDNISolone 4 MG TABLET 2 MG PO (11:56)
--- NOTE | 2024-02-25 12:55 | MHC.CM.PN ---
DP: PT HAS BEEN MEDICALLY CLEARED FOR DC HOME WITH [facility]TION OF [facility] SERVICES. [facility] UPDATED ON TODAY'S DC. RN AWARE. BLS TRANSPORT BOOKED FOR 1 PM VIA [facility]. [facility] AUTH FOR TRANSPORTATION OBTAINED, BOOKING ID # [id number]. FAMILY AWARE OF DC PLAN.
== END 2024-02-25 13:58 | disposition home health service (06) | DRG 689 ==
LOC: HO.ED 21:17 → HO.EDOVER 21:27 → HO.S3 02-23 01:01
PROVIDERS: Admitting Provider Student in an Organized Health Care Education/Training Program; Emergency Provider Student in an Organized Health Care Education/Training Program; PCP Internal Medicine; Visit Provider Family Medicine
DX: N39.0 Urinary tract infection, site not specified (principal); G92.8 Other toxic encephalopathy; F03.918 Unspecified dementia, unspecified severity, with other behavioral disturbance; I50.32 Chronic diastolic (congestive) heart failure; I11.0 Hypertensive heart disease with heart failure; I48.0 Paroxysmal atrial fibrillation; B96.5 Pseudomonas (aeruginosa) (mallei) (pseudomallei) as the cause of diseases classified elsewhere; B95.2 Enterococcus as the cause of diseases classified elsewhere; N40.0 Benign prostatic hyperplasia without lower urinary tract symptoms; K21.9 Gastro-esophageal reflux disease without esophagitis; Z20.822 Contact with and (suspected) exposure to COVID-19; Z79.01 Long term (current) use of anticoagulants; Z79.51 Long term (current) use of inhaled steroids; Z79.82 Long term (current) use of aspirin; Z79.899 Other long term (current) drug therapy
CPT/HCPCS: 0241U; 36415; 70450; 71045; 80048; 80076; 80307; 81001; 82140; 83735; 84100; 84484; 85025; 87086; 87088; 87186; 93005; 97162; 99285; J0696; J2543

== ENCOUNTER → 2024-02-22 18:00 | Outpatient (BNV) | payer OTHER, SELFPAY | PROVIDERS: Admitting Provider Student in an Organized Health Care Education/Training Program; Emergency Provider Student in an Organized Health Care Education/Training Program; Visit Provider Internal Medicine Cardiovascular Disease | DX: R41.82 Altered mental status, unspecified (principal); R94.31 Abnormal electrocardiogram [ECG] [EKG] | CPT/HCPCS: 93010 ==

== ENCOUNTER → 2024-02-22 18:40 | Outpatient (BNV) | payer OTHER, SELFPAY | PROVIDERS: Emergency Provider Student in an Organized Health Care Education/Training Program; Visit Provider Radiology Diagnostic Radiology | DX: R41.82 Altered mental status, unspecified (principal); R05.9 Cough, unspecified | CPT/HCPCS: 70450; 71045 ==

== ENCOUNTER → 2024-02-22 21:18 | Outpatient (BNV) | payer OTHER, SELFPAY | PROVIDERS: Admitting Provider Student in an Organized Health Care Education/Training Program; Emergency Provider Student in an Organized Health Care Education/Training Program; Visit Provider Student in an Organized Health Care Education/Training Program | DX: R41.82 Altered mental status, unspecified (principal); N39.0 Urinary tract infection, site not specified; R31.9 Hematuria, unspecified | CPT/HCPCS: 99222 ==

== ENCOUNTER 2024-02-26 14:47 | Emergency (ER) | payer OTHER, SELFPAY ==
--- NOTE | 2024-02-26 14:59 | ED.CPR ---
HPI - CPR General Chief Complaint: Cardiac Arrest/CPR Stated Complaint: CARDIAC ARREST PER EMS Time Seen by Provider: 02/26/24 14:53 Source: EMS and old records reviewed Mode of arrival: EMS Limitations: other (ongoing CPR) History of Present Illness ED Provider: SYLVESTER GARNER narrative: 88 yo male with PMH of atrial fibrillation on xarelto, BPH, HTN, CHF with preserved EF, GERD, COPD not on home oxygen, dementia who had a witnessed arrest following choking on donut - prehospital CPR total time was 1 hr without ROSC and he remained in PE. He had multiple attempts at copious food removed from his airway, Igel, 6 to 7 epi no response, BS in 200s, ongoing CPR without response. BLS CPR was 14 min prior to ALS showing up, no shock advised with BLS or ALS. Per EMS police were there and tried to intervene removed food from airway, BLS did the same, ALS noted difficulty airway with inability to remove obstruction despite forceps and suction. MD complaint: other (choking then collapse) Onset (ago): hour(s) (1) Timing confirmed by: other (EMS) Place: home Bystander CPR performed: Yes AED applied by bystander/first sampler: Yes Shock advised: No Initial findings in the field: no respirations and PEA ROSC in the field: No Associated injuries: No Associated symptoms: other (choking) Known history of: pacemaker Treatments prior to arrival: BMV, other airway device (Igel), chest compressions and epinephrine mgs # (7) Related Data Home Medications ?Medication ?Instructions ?Recorded ?Confirmed atorvastatin 80 mg tablet 80 mg PO BEDTIME 06/03/20 02/23/24 carvedilol 25 mg tablet 25 mg PO BID 12/04/20 02/23/24 potassium chloride 10 mEq 1 tab PO BID 11/14/21 02/23/24 tablet,extended release fluticasone furoate 200 1 inh inhalation DAILY 12/06/22 02/23/24 mcg-vilanterol 25 mcg/dose inhalation powder (Breo Ellipta) ferrous sulfate 325 mg (65 mg 325 mg PO MOWEFR 12/07/22 02/23/24 iron) tablet (FeroSul) fluticasone propionate 50 1 spray intranasal DAILY PRN 12/07/22 02/23/24 mcg/actuation nasal Allergy Symptoms spray,suspension aspirin 81 mg tablet,delayed 81 mg PO DAILY 08/17/23 02/23/24 release ketorolac 0.5 % eye drops 1 drp ophthalmic (eye) TID 08/17/23 02/23/24 verapamil 120 mg tablet,extended 120 mg PO DAILY 08/17/23 02/23/24 release acetaminophen 650 mg 1,300 mg PO Q8H PRN Pain 02/01/24 02/23/24 tablet,extended release (Tylenol Arthritis Pain) duloxetine 20 mg capsule,delayed 20 mg PO DAILY 02/01/24 02/23/24 release gabapentin 100 mg capsule 100 mg PO BID 02/01/24 02/23/24 methylprednisolone 4 mg tablet 2 mg PO DAILY@1200 02/01/24 02/23/24 methylprednisolone 4 mg tablet 4 mg PO BID 02/01/24 02/23/24 rivaroxaban 20 mg tablet (Xarelto) 20 mg PO DAILY@1700 02/01/24 02/23/24 albuterol sulfate 2.5 mg/3 mL 2.5 mg inhalation Q4H PRN 02/17/24 02/23/24 (0.083 %) solution for nebulization Shortness Of Breath Or Wheezing amiodarone 200 mg tablet 200 mg PO DAILY 02/17/24 02/23/24 albuterol sulfate 90 mcg/actuation 1 inh inhalation Q4H PRN Shortness 02/22/24 02/23/24 aerosol inhaler Of Breath Or Wheezing losartan 50 mg tablet 50 mg PO DAILY 02/22/24 02/23/24 jgnzvfad-jfh-zbkyg acid 0.4 1 tab PO DAILY 02/22/24 02/23/24 mg-lycopene 300 mcg-lutein 250 mcg tablet (CertaVite Senior) Previous Rx's ?Medication ?Instructions ?Recorded tamsulosin 0.4 mg capsule 0.4 mg PO DAILY 90 days #90 caps 03/29/21 furosemide 40 mg tablet 40 mg PO DAILY #30 tabs 12/05/22 docusate sodium 100 mg capsule 100 mg PO BID #60 caps 05/20/23 sucralfate 100 mg/mL oral 10 ml PO BEDTIME #400 mL 11/16/23 suspension sennosides 8.6 mg tablet (senna) 8.6 mg PO BEDTIME #90 tabs 11/18/23 pantoprazole 40 mg tablet,delayed 40 mg PO DAILY@0630 #90 tabs 02/05/24 release risperidone 0.5 mg tablet 0.5 mg PO Q4H PRN agitation #14 02/17/24 (Risperdal) tabs amoxicillin 875 mg-potassium 1 tab PO Q12H #14 tabs 02/25/24 clavulanate 125 mg tablet levofloxacin 250 mg tablet 250 mg PO DAILY #7 tabs 02/25/24 Allergies Allergy/AdvReac Type Severity Reaction Status Date / Time ezetimibe [From Zetia] Allergy Severe Anaphylaxis Verified 02/22/24 17:32 dabigatran etexilate Allergy Intermediate ITCHING Verified 02/22/24 17:32 [From PRADAXA] JORGE L Inhibitors Allergy Mild UNKNOWN, Verified 02/22/24 17:32 [Jorge L Inhibitors] FOUND IN MEDICAL RECORD 04/[address] GIPSON apixaban [From ELIQUIS] Allergy Unknown Rash Verified 02/22/24 17:32 rosuvastatin [Crestor] Allergy Unknown myalgia Verified 02/22/24 17:32 Review of Systems Review of Systems: ROS unable to be obtained due to ongoing CPR [facility] Past Medical History Attestation statement: The following information was validated with the patient. Source: old records reviewed Medical History Encephalopathy Head injury Atrial fibrillation with RVR Acute hypernatremia Fall Pacemaker (~2022) Stasis leg ulcer Pacemaker History of TIA (transient ischemic attack) (~2021) History of COVID-19 Tension headache Meningioma Hypertrophic cardiomyopathy Hearing loss Diastolic CHF, 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 Frequency of micturition Chronic abdominal pain Peripheral neuropathy Constipation Diverticulitis Polyarthralgia Primary osteoarthritis of right knee Urinary incontinence History of CVA (cerebrovascular accident) (~2018) Protrusion of lumbar intervertebral disc History of rib fracture Peripheral vascular disease GERD (gastroesophageal reflux disease) Obstructive sleep apnea BPH (benign prostatic hyperplasia) Anxiety and depression Paroxysmal atrial fibrillation COPD (chronic obstructive pulmonary disease) Obesity (BMI 30-39.9) Hypercholesterolemia Hypertension Anemia Current use of anticoagulant therapy Surgical History History of pacemaker History of colonoscopy History of total right hip replacement (~2016) History of transurethral resection of prostate History of tonsillectomy History of left knee replacement (~2007) Family History Family History Father No problems noted. 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 CVS: ongoing chest compressions no heart sounds no pulses, PEA on monitor Respiratory: no respirations, absent breath sounds Abdomen: Soft and obese Skin: Skin cold and dry. pale skin color. Extremities: No lower extremity edema. Neuro: no response to pain, no corneal reflex Course Course Course Narrative: accepted by ME Medical Decision Making Medical Decision Making MDM Narrative: 88 yo male with PMH of PAF on xarelto, BPH, HTN, CHF preserved EF, GERD, COPD not on home oxygen, dementia, here with witnessed arrest from choking at this time the patient had prolonged CPR without ROSC. He was pronounced in the ED after 3 rounds of CPR and cardiac standstill on ECHO. and children notified. Plan for call to certified medical transcriptionist. Family updated and aware time of 1454 cardiac standstill no corneal reflexes absent heart sounds Differential Diagnosis Differential Diagnoses: The differential diagnosis associated with the presentation includes respiratory arrest with cardiac arrest Independent Historian Clinical information obtained from an independent historian. History obtained from or confirmed by: Spouse, EMS and Other (famiy) External Record Review External record reviewed: Inpatient record Procedures Procedure Narrative Procedure Narrative: bedside echo 1454 cardiac standstill noted apical subxiphoid, parasternal Intubation Intubation Type:: Emergency Endotracheal Intubation Intubation Date:: 02/26/24 Time out performed: No sedative: none Laryngoscope: other (glidescope) ET Tube Size: 7.5 ET Tube Uncuffed: Yes Tube Secured Depth (cm): 23 Tube Secured Location: teeth Tube Placement Confirmation: visualized tube passing through cords, equal breath sounds bilaterally and confirmation by capnometry Patient Tolerated Procedure: well and no complications Intubation Complications: difficult intubation (2nd attempt due to airway - very wet and tube slipped, bagged in between) Critical Care Time Critical Care Time Critical Care Time: Yes Total Critical Care Time: 35 Attestation: CPR care, family discussion I attest to this time spent taking care of the patient Discharge Plan Discharge Clinical Impression: Cardiac arrest due to respiratory disorder Patient Disposition: Date/Time: 02/26/24 14:54
--- NOTE | 2024-02-26 15:37 | MHC.EDTECH ---
called ME @ [address] DR PHAN took callled and patient was accepted.
--- OUTSIDE RECORDS SUMMARY | 2024-02-26 16:30 | XMS_ITS | Continuity of Care Document ---
Author Organization [place] - [facility], [place] [facility] Address [address] [place] [id number] Care Team Providers Care Weight And Balance Control Agent Name Role Phone HIM CCA OTHER KISHORE ROBERSON Primary Care Provider Assessment Encounter Date Assessment Date Assessment LastModified by Organization Details LastModified Time 02/16/2024 02/16/2024 I have reviewed and agree with the assessment and plan as documented by the apartment coordinator. I provided real-time medical direction for this encounter and was immediately available to provide additional phone-based assistance as needed. 88M presenting with worsening hallucinations x 3 days. [facility] and [...] Not available Not available Not available 10/22/2021 [id number] 42 RxNorm Not Available [facility] - production 4 12:15:20 938 Product containin g angiotens in-conver ting enzyme inhibitor (product) medicatio n Not available Not available Not available 10/22/2021 69085 009 SNOMED Arti Messina MD [address] [facility],[address], [place], [phone], [facility] [employer]wine 2 17:14:14 939 ezetimibe medicatio n Not available Not available Not available 10/22/2021 41001 8 RxNorm Not Available [facility] - production 4 16:01:50 940 apixaban medicatio n Not available Not available Not available 10/22/2021 76373 30 [facility] Available [facility] 16:01:50 941 Lipitor medicatio n Not available Not available Not available 10/22/2021 35232 5 RxNorm Not Available [facility] 12:15:20 Medications [...] Diagnosis/Indication Diagnosis SNOMED-CT Code Diagnosis ICD10 Code [id number] Uziel Crowe MD Main - [address] [phone] 01/27/2024 17:55:12 01/28/2024 08:54:57 Low back pain [id number] M54.50 [id number] Kurt Pineda MD Main - [address] [address] 02/07/2024 13:22:25 02/08/2024 11:51:26 Urinary symptoms [id number] R39.9 Cough 04359140 R05.9 [id number] Petra Castillo MD Main - [address] [address] 02/16/2024 13:01:37 02/16/2024 19:06:50 Acute confusion [id number] R41.0 Health Concerns Section Related Observation LastModified by Organization Detai ls LastModified Time None Recorded Concern Status LastModified by Organization Details LastModified Time None Recorded Payers Encounter Date Sequence Insurance Name Policy Number Policy Escamilla Covered Member ID Escamilla Member ID Guarantor Name 02/16/2024 1 [facility] - DOS ON OR AFTER 2022 - DUAL ELIGIBLE - PENITENTIARY OPTIONS AND ONE CARE (MEDICARE REPLACEMENT/ADV ANTAGE - HMO) Pal Da Silva [id number] Pal Da Silva Notes Date Note Type [...] in his life. [facility]/ [facility] They declined ER at this time but are open [facility]. ..................... ..................... ..................... ..................... ..................... ..................... ............... [facility] Nurse Triage Notes (Irene Payne - RN): Chief Complaints: Altered mental status PMH: Congestive Heart Failure, COPD/Asthma, Hypertension, Severe Persistent Mental Illness (SPMI), Arrhythmias (e.g., Atrial Fibrillation), Coronary Artery Disease, Sleep Apnea, Stroke, Osteoarthritis, Cholecystectomy, Depression Comments: HPI reviewed- NE Battery Filler Organization Information for Deann Crowe Business Legal Name: [employer] ? Address: [address] [place] [address], Single End Sewer: Oliver Salinas MD [facility] No.: [id number] Battery Filler POC Test Results from Deann Crowe Blood Glucose Measurement (12:56:58) Blood Glucose: 185 mg/dL ..................... ..................... ..................... ..................... ..................... ..................... ............... Battery Filler Note From Deann Crowe: Upon arrival, patient [...] 911 and pt is sent to the [place] ED via [facility]. SC9 clear without any incidents ..................... ..................... ..................... ..................... ..................... ..................... ............... [facility] [place]: Petra Castillo ..................... ..................... ..................... ..................... ..................... ..................... ............... Disposition: Ruthann Castillo MD [address] [facility],[address], [place], [phone], JILL FAROOQ 02/16/2024 16:29:26
--- OUTSIDE RECORDS SUMMARY | 2024-02-26 16:30 | XMS_ITS | Continuity of Care Document ---
Author Organization [facility] [place] [facility] [employer] Address [address] [place] [id number] Care Team Providers Care Grinder Set Up Operator Name Role Phone HIM CCA OTHER KISHORE ROBERSON Primary Care Provider Assessment No assessment recorded. Plan of Treatment Reminders Order Date Submit Date Provider Last Modified By Organization Details Last Modified Time Details Appointments None recorded. Lab None recorded. Referral None recorded. Procedures None recorded. Surgeries None recorded. Imaging None recorded. Medication Orders cyclobenzap rine 5 mg tablet 2023 024 [id number], [address] [place], [place], [phone], 4 17:57:09 Patient TargetsNo targets recorded. Patient InstructionsNo instructions recorded. Reason for Referral None Reported. Medical Equipment None Reported. Allergies Allergen ID Allergen Name Allergen Category Reaction Reaction Severity Criticality Documentation Date Start Date Code Code System Note Provider Name and Address Organization Details Recorded Time 937 dabigatra n etexilate medicatio n Not available Not available Not available 10/22/2021 31983 42 RxNorm Not Available [facility] 4 12:15:20 938 Product containin g angiotens in-conver ting enzyme inhibitor (product) medicatio n Not available Not available Not available 10/22/2021 74988 009 SNOMED Arti Messina MD [address] [place] [address],[address], [place], [phone] , [facility] 2 17:14:14 939 ezetimibe medicatio n Not available Not available Not available 10/22/2021 01395 8 RxNorm Not Available [email or web address] 4 16:01:50 940 apixaban medicatio n Not available Not available Not available 10/22/2021 41546 30 RxNorm Not Available [facility] 4 16:01:50 941 Lipitor medicatio n Not available Not available Not available 10/22/2021 18611 5 RxNorm Not Available [facility] - production [...] /min 100 % 100 % 98.7 [degF] 07078.5 84 g 154 mm[Hg] 75 mm[Hg] Not Available 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 Functional Status None recorded. Mental Status None recorded. Family History Nothing Reported. Medical History No medical history recorded. Past Encounters Encounter ID Performer Location Encounter Start Date Encounter Closed Date Diagnosis/Indication Diagnosis SNOMED-CT Code Diagnosis ICD10 Code [id number] Uziel Crowe MD [facility] [address] [place] [phone] 01/27/2024 17:55:12 01/28/2024 08:54:57 Low back pain 578421334 M54.50 Health Concerns Section Related Observation LastModified by Organization Detai ls LastModified Time None Recorded Concern Status LastModified by Organization Details LastModified Time None Recorded Payers Encounter Date Sequence Insurance Name Policy Number Policy Escamilla Covered Member ID Escamilla Member ID Guarantor Name 01/27/2024 1 [facility] - DOS ON OR AFTER 2022 - DUAL ELIGIBLE - JAIL OPTIONS AND ONE CARE (MEDICARE REPLACEMENT/ADV ANTAGE - HMO) Pal Da Silva [id number] Pal Da Silva Notes Date Note Type [...] ................... ................... ................... ................... ................... ................... ........ Inspector Purchased Parts Note From Mark Brock: [facility] visit for male pt. Pt presents lying supine in bed with . Pt reports 8 days of severe lumbar back pain with a couple of ED visits for same issue. Pt has been diagnosed with paraspinal muscle sprain and prescribed lidocaine patches and tylenol. Pt also given some tramadol though unspecified person from [facility] called him and told him not to take it. V/S taken as listed. Pt afebrile. Pt had severe right lumbar pain and tenderness. No external signs of injury discoloration etc. Consulted with [facility] Dr. Crowe who advised pt can take toke of tramadol, try hot compresses, and follow up with PCP. Reviewed red flags for ED. Pt education provided. ................... ................... ................... ................... ................... ................... ................... ........ [facility] Consulted: Uziel Crowe ................... ................... ................... ................... ................... ................... ................... ........ Disposition: Fulfilled Uziel Crowe MD [address] [facility], [place], [phone], [email or web address] 01/27/2024 22:26:07
--- OUTSIDE RECORDS SUMMARY | 2024-02-26 16:30 | XMS_ITS | Data Portability ---
Author Organization [employer] [place] [facility] [place] Address [address] [place] [phone] Care Team Providers Care Table Maker Name Role Phone HIM CCA OTHER KISHORE ROBERSON Primary Care Provider Assessment Encounter Date Assessment Date Assessment LastModified by Organization Details LastModified Time 02/07/2024 02/07/2024 I have reviewed and agree with the assessment and plan as documented by the forming machine tender. I provided real time medical direction for this encounter and was immediately available to provide additional phone based assistance as needed. History as noted by forming machine tender. Pt with history of COPD, CHF, Afib on AC. Pt is s/p fall and recent admit to [facility] 6 days ago fro Afib with [...] be checked. btils Not available 02/07/2024 14:19:35 02/16/2024 02/16/2024 I have reviewed and agree with the assessment and plan as documented by the forming machine tender. I provided real-time medical direction for this encounter and was immediately available to provide additional phone-based assistance as needed. 88M presenting with worsening hallucinations x 3 days. Pt was seen by [facility] last week for urinary symptoms and treated [...] Appointments None recorded. Lab culture, urine 2023 [facility], [address], [place], [address], 20:09:15 urinalysis, dipstick 2023 024 btils [facility], [address] [place] [address], [address], 13:33:15 rapid SARS CoV 2 Ag, QL IA, respiratory specimen 2023 [facility], [address] [place] [address], [phone], 4 13:33:15 rapid flu (A+B) 2023 [facility], [address] [place] [address], [address], 4 13:33:15 Referral None recorded. Procedures None recorded. Surgeries None recorded. Imaging electrocard iogram 2023 g[facility], [address] [place] [address], [address], 23:09:43 Medication Orders cephalexin 500 mg capsule 2023 [facility], [address] [place], [address], 21:36:43 cephalexin 500 mg capsule 2023 [facility], [address] [place], [address], 22:52:32 cyclobenzap rine 5 mg tablet 2023 [facility]23, [address] [place], [place], [id number], 17:57:09 cefpodoxime 200 mg tablet 2023 [facility] #34191, [address] [place], [place], [id number], 13:33:20 ipratropium 0.5 mg-albutero l 3 mg (2.5 mg base)/3 mL nebulizatio n soln 2023 [facility], [address] [facility], [place], [address], 13:33:15 guaifenesin ER 600 mg tablet, extended release 12 hr 2023 [facility]45836, [address] [place], [place], [id number], 13:37:50 albuterol sulfate HFA 90 mcg/actuati on aerosol inhaler 2023 [facility] #93446, [address], [place], [id number], 13:40:51 Patient TargetsNo targets recorded. Patient InstructionsNo instructions recorded. Reason for Referral None Reported. Results Created Date Observation Date Name Description Value Unit Range Abnormal Flag Note LastModifiedBy Organization Detail LastModifiedTime 10/21/19 24 10/21/2023 rapid flu (A+B) Flu negati ve Not Available [facility] [address] [place] [address], [address], 10/21/2023 16:11:34 10/21/19 24 10/21/2023 rapid SARS CoV 2 Ag, QL IA, respi rator y speci men rapid SARS CoV 2 Ag, QL IA, respiratory specimen negati ve Not Available [facility] [address] [place] [address], [address], 10/21/2023 16:05:52 10/27/19 24 10/27/2023 rapid flu (A+B) Flu negati ve Not Available [facility] [address] [place] [address], [address], 10/27/2023 14:34:47 10/27/19 24 10/27/2023 rapid SARS CoV 2 Ag, QL IA, respi rator y speci men rapid SARS CoV 2 Ag, QL IA, respiratory specimen negati ve Not Available Main - [facility] ed [address] [place] [address], [address], 10/27/2023 14:34:45 02/07/20 24 02/09/2024 URINE CULTU RE, ROUTI NE urine culture, routine Final report abnormal Not Available [facility] ([facility]) [address] [facility], [place], [address], 02/09/2024 14:06:11 02/07/20 24 02/09/2024 URINE CULTU [...] Prote us mirab ilis. Not Available [facility] ([facility]) [address] [facility], [place], [address], 02/09/2024 14:06:11 02/07/20 24 02/09/2024 URINE CULTU RE, ROUTI NE antimicrobia l susceptibili ty Commen t [...] thopr im/Ross lfa S Not Available [facility] ([facility]) [address] [facility], [place], [address], 02/09/2024 14:06:11 02/07/20 24 02/07/2024 rapid flu (A+B) Flu negati ve Not Available Main - [facility] ed [address] [place] [address], [address], 02/07/2024 13:28:35 02/07/20 24 02/07/2024 rapid SARS CoV 2 Ag, QL IA, respi rator y speci men rapid SARS CoV 2 Ag, QL IA, respiratory specimen negati ve Not Available [facility] ed [address] [place] [address], [address], 02/07/2024 13:28:29 12/11/19 24 12/11/2023 elect anuel bucio am No observ ation record ed. [address], [address], 12/11/2023 23:09:40 Result Notes None recorded. Procedures Surgical History None recorded. Imaging Results Imaging Date Name Status LastModified by Organization Details LastModified Time 12/11/2023 electrocardiogram completed [address], [address], 12/11/2023 23:09:40 Procedure Notes None recorded. Medical Equipment None Reported. Allergies Allergen ID Allergen Name Allergen Category Reaction Reaction Severity Criticality Documentation Date Start Date Code Code System Note Provider Name and Address Organization Details Recorded Time 937 dabigatra n etexilate medicatio n Not available Not available Not available 10/22/2021 33565 42 RxNorm Not Available [facility] - production 12:15:20 938 Product containin g angiotens in-conver ting enzyme inhibitor (product) medicatio n Not available Not available Not available 10/22/2021 97472 009 SNOMED Arti Messina MD [address] [facility], [place], [phone], [facility] - [facility], [employer] 2 17:14:14 939 ezetimibe medicatio n Not available Not available Not available 10/22/2021 25967 8 RxNorm Not Available [facility] - production 4 16:01:50 940 apixaban medicatio n Not available Not available Not available 10/22/2021 87381 30 RxNorm Not Available [facility] - production 4 16:01:50 941 Lipitor medicatio n Not available Not available Not available 10/22/2021 05062 5 RxNorm Not Available [facility] - production [...] Details Last Updated DateTime 4 98.4 [degF] 83265.3 6 g 18 /min 78 /min 99 % 99 % 157.48 cm 132 mm[Hg] 74 mm[Hg] Not Available [employer] 4 18:19:34 Date Recorded Oxygen saturation Oxygen saturation in Arterial blood by Pulse oximetry Body temperature Body height Heart rate Body weight Respiratory rate Systolic blood pressure Diastolic blood pressure Provider Name and Address Organization Details Last Updated DateTime 4 98 % 98 % 98.1 [degF] 157.48 cm 75 /min 25295.4 g 19 /min 85 mm[Hg] 52 mm[Hg] Not Available [employer] 4 21:22:40 Date Recorded Heart rate Body height Respiratory rate Oxygen saturation Oxygen saturation in Arterial blood by Pulse oximetry Body temperature Body weight Systolic blood pressure Diastolic blood pressure Provider Name and Address Organization Details Last Updated DateTime 4 70 /min 157.48 cm 16 /min 100 % 100 % 98.7 [degF] 31295.5 84 g 154 mm[Hg] 75 mm[Hg] Not Available [employer] - production 4 17:55:15 Date Recorded Respiratory rate Heart rate Body temperature Oxygen saturation Oxygen saturation in Arterial blood by Pulse oximetry Systolic blood pressure Diastolic blood pressure Provider Name and Address Organization Details Last Updated DateTime 4 18 /min 63 /min 97.2 [degF] 96 % 96 % 131 mm[Hg] 74 mm[Hg] Not Available [employer] - production 13:22:28 Date Recorded Respiratory rate Heart rate Oxygen saturation Oxygen saturation in Arterial blood by Pulse oximetry Body temperature Systolic blood pressure Diastolic blood pressure Provider Name and Address Organization Details Last Updated DateTime 4 22 /min 80 /min 97 % 97 % 99.9 [degF] 114 mm[Hg] 63 mm[Hg] Not Available [employer] - production 13:01:39 Social History None recorded. Functional Status None recorded. Mental Status None recorded. Family History Nothing Reported. Medical History No medical history recorded. Past Encounters Encounter ID Performer Location Encounter Start Date Encounter Closed Date Diagnosis/Indication Diagnosis SNOMED-CT Code Diagnosis ICD10 Code [id number] Emelina Hope MD [facility] [address] [place] [phone] 09/03/2021 13:58:40 10/29/2021 16:07:36 Dizziness 757116107 R42 Acute on c hronic diastolic heart failure 448386606 I50.33 [id number] Arti Messina MD Main [facility] [address] [place] [phone] 10/22/2021 16:32:35 11/06/2021 11:46:10 Right upper quadrant pain 777511148 R10.11 [id number] Emelina Hope MD Main [facility] [address] [place] [phone] 12/14/2021 11:53:55 12/16/2021 14:22:24 Left lower quadrant pain 597174477 R10.32 [id number] Valentina Chavarria MD Main [facility] [address] [place], [place] [address] 0 12/18/2021 18:55:27 12/24/2021 15:13:27 Dyspnea 013201631 R06.00 [id number] Laxmi Gomez MD Main [facility] [address] [place] [phone] 02/19/2022 11:51:07 02/21/2022 13:24:44 Abdominal pain 89564365 R10.9 [id number] Kurt Pineda MD Main - [facility] [address] [place] [phone] 06/09/2022 11:05:58 06/10/2022 11:39:18 Left lower quadrant pain 043816611 R10.32 [id number] Marcelina Ruiz MD Main - [facility] [address] [place] [address] 0 06/12/2022 11:29:39 06/13/2022 09:48:14 Acute on chronic diastolic heart failure 912134807 I50.33 [id number] Kurt Pineda MD Main - [facility] [address] [place] [id number] 06/24/2022 10:31:23 06/26/2022 09:21:01 Left lower quadrant pain 810401146 R10.32 [id number] ROSALINDA JUNIOR MD [facility] [address] [place] [id number] 08/09/2022 14:57:47 08/09/2022 23:14:31 Left upper quadrant pain 884221165 R10.12 [id number] Melani Cespedes MD Main [facility] [address] [place] [phone] 08/11/2022 11:13:36 08/14/2022 15:12:40 Abdominal pain 09885041 R10.9 [id number] Arti Messina MD Main - [facility] [address] [place] [phone] 09/05/2022 11:41:29 09/07/2022 21:23:47 Essential hypertension 40524954 I10 [id number] Sarita Guzman MD Main - [facility] [address] [place] [phone] 11/26/2022 13:49:56 11/27/2022 00:29:17 Low blood pressure 57877827 I95.9 [id number] Karishma Sofia MD [facility] - [facility] [address] [place] [address] 01/19/2023 20:46:48 01/19/2023 22:55:13 Diverticulitis 537776385 K57.92 [id number] Arti Messina MD [facility] [address] [place] [id number] 01/26/2023 12:04:24 01/27/2023 09:25:45 Palpitations 94904160 R00.2 [id number] Salo Arriaza MD [facility] [address] [place], [place] [address] 0 02/20/2023 10:51:29 02/25/2023 14:22:46 Headache 23676330 R51.9 [id number] ROSALINDA JUNIOR MD [facility] - [facility] [address] [place], [place] [phone] 03/05/2023 16:47:27 03/05/2023 22:42:57 Pain in left lower limb 876255318 M79.605 [id number] Skyler Fajardo MD [facility] [address] [place] [id number] 03/27/2023 20:07:39 03/29/2023 13:03:35 Localized swelling of left lower leg 5136438490 1827845 R22.42 [id number] Skyler Fajardo MD [facility] [address] [place] [id number] 05/19/2023 17:26:54 05/19/2023 19:18:07 Congestive heart failure 54716602 I50.9 [id number] Skyler Fajardo MD Main [facility] [address] [place] [id number] 06/20/2023 17:24:02 06/21/2023 17:15:04 Generalized headache 124508937 R51.9 [id number] Melani Cespedes MD Main [facility] [address] [place] [id number] 07/13/2023 16:19:49 07/14/2023 17:29:31 Left lower quadrant pain 698058366 R10.32 [id number] Lance Guerrero MD Main - [facility] [address] [place], [place] [address] 0 10/21/2023 16:04:17 10/21/2023 22:32:37 Viral upper respiratory tract infection 437780120 J06.9 [id number] Rachel Armstrong MD [facility] [address] [place] [address] 0 10/27/2023 14:33:08 10/27/2023 22:50:48 Upper respiratory infection 67174805 J06.9 [id number] Lance Guerrero MD [facility] [address] [place] [address] 0 11/09/2023 16:12:52 11/09/2023 20:35:57 Subconjunctival hemorrhage of right eye 7171916960 24821 H11.31 [id number] Melani Cespedes MD [facility] [address] [place] [address] 0 11/16/2023 18:19:32 11/16/2023 20:41:54 Cough 10559802 R05.9 [id number] EHSAN RODRIGUEZ MD [facility] [address] [place] [address] 0 12/11/2023 21:22:23 12/12/2023 15:24:29 Cellulitis of toe of right foot 8131704206 L03.031 [id number] Uziel Crowe MD [facility] [address] [place] [address] 0 01/27/2024 17:55:12 01/28/2024 08:54:57 Low back pain 303788246 M54.50 [id number] Kurt Pineda MD [facility] [address] [place] [address] 0 02/07/2024 13:22:25 02/08/2024 11:51:26 Urinary symptoms 824931747 R39.9 Cough 47934800 R05.9 [id number] Petra Castillo MD [facility] [address] [place] [address] 0 02/16/2024 13:01:37 02/16/2024 19:06:50 Acute confusion 161345003 R41.0 Health Concerns Section Related Observation LastModified by Organization Detai ls LastModified Time None Recorded Concern Status LastModified by Organization Details LastModified Time None Recorded Advance Directives Directive None Recorded Payers Encounter Date Sequence Insurance Name Policy Number Policy Escamilla Covered Member ID Escamilla Member ID Guarantor Name 11/16/2023 1 [facility] [employer] - DOS ON OR AFTER 2022 - DUAL ELIGIBLE - [facility] OPTIONS AND ONE CARE (MEDICARE REPLACEMENT/ADV ANTAGE - HMO) Pal Da Silva [id number] Pal Da Silva 12/11/2023 1 [facility] - DOS ON OR AFTER 2022 - DUAL ELIGIBLE - [facility] OPTIONS AND ONE CARE (MEDICARE REPLACEMENT/ADV ANTAGE - HMO) Pal Da Silva [id number] Pal Da Silva 01/27/2024 1 [facility] DOS ON OR AFTER 2022 - DUAL ELIGIBLE - [facility] OPTIONS AND ONE CARE (MEDICARE REPLACEMENT/ADV ANTAGE - HMO) Pal Da Silva [id number] Pal Da Silva 02/07/2024 1 [facility] - DOS ON OR AFTER 2022 - DUAL ELIGIBLE - [facility] OPTIONS AND ONE CARE (MEDICARE REPLACEMENT/ADV ANTAGE - HMO) Pal Da Silva [id number] Pal Da Silva 02/16/2024 1 [facility] - DOS ON OR AFTER 2022 - DUAL ELIGIBLE - [facility] OPTIONS AND ONE CARE (MEDICARE REPLACEMENT/ADV ANTAGE - HMO) Pal Da Silva [id number] Pal Da Silva Notes Date Note Type [...] No fever. Speaking full sentences without difficulty ..................... ..................... ..................... ..................... ..................... ..................... ............... 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 Pt was found sitting on edge [...] Red flags discussed. all times are approx. ..................... ..................... ..................... ..................... ..................... ..................... ............... Disposition: Ruthann Cespedes MD [address] [facility] [address], [place], [address], [facility] - [facility] 11/16/2023 19:00:53 12/11/2023 text/html HPI: Patient with [...] to present to ED at this time. ..................... ..................... ..................... ..................... ..................... ..................... ............... CRC Nurse Triage Notes (Suzie Escoto): Chief Complaints: Wound Care, Pain, Cellulitis PMH: CHF, COPD/Asthma, Hypertension, Severe Persistent Mental Illness (SPMI) Other Allergies: ROSSANA inhibitors, ezetimibe, dabigatran Comments: CRC RN did not require any additional information to process this visit. Head Refrigerating Engineer Organization Information for Jonathan Espinoza Business Legal Name: [facility] Address: [address] [place] [address], Paper Sample Clerk: Billy Manzo MD CLIA No.: [id number] Head Refrigerating Engineer POC Test Results from Jonathan Espinoza EKG (21:20:36) EKG test performed. Attachments uploaded as part of this test result can be found under Documents section. ..................... ..................... ..................... ..................... ..................... ..................... ............... Head Refrigerating Engineer Note From Jonathan Espinoza: Pt chief complaint [...] pt to be in a ventricularly paced rhythm.[facility] unable to acquire a IV access [...] Pt given 5000 mg of oral keflex ..................... ..................... ..................... ..................... ..................... ..................... ............... Disposition: Ruthann RODRIGUEZ MD [address], [place], [address], [employer] 12/11/2023 23:11:06 01/27/2024 text/html HPI: 88 yo [...] [facility] for pain relief and assesment today ..................... ..................... ..................... ..................... ..................... ..................... ............... CRC Nurse Triage Notes (Irene Payne): Chief Complaints: Back pain PMH: Congestive Heart Failure, COPD/Asthma, Hypertension, Severe Persistent Mental Illness (SPMI), Arrhythmias (e.g., Atrial Fibrillation), Coronary Artery Disease, Sleep Apnea, Stroke, Osteoarthritis, Cholecystectomy, Depression Comments: HPI reviewed- NE ..................... ..................... ..................... ..................... ..................... ..................... ............... Head Refrigerating Engineer Note From Mark Brock: [facility] visit for male pt. Pt presents lying supine in bed with . Pt reports 8 days of severe lumbar back pain with a couple of ED visits for same issue. Pt has been diagnosed with paraspinal muscle sprain and prescribed lidocaine patches and tylenol. Pt also given some tramadol though unspecified person from [facility] called him and told him not to take it. V/S taken as listed. Pt afebrile. Pt had severe right lumbar pain and tenderness. No external signs of injury discoloration etc. Consulted with [facility] Dr. Crowe who advised pt can take toke of tramadol, try hot compresses, and follow up with PCP. Reviewed red flags for ED. Pt education provided. ..................... ..................... ..................... ..................... ..................... ..................... ............... [facility] Consulted: Uziel Crowe ..................... ..................... ..................... ..................... ..................... ..................... ............... Disposition: Fulfilled Uziel Crowe MD [address] [facility], [place], [address], [employer] 01/27/2024 22:26:07 02/07/2024 text/html This was a super vised home visit with forming machine tender Lalit Lubin. CRC Nurse Triage Notes (Chaitanya Myles - ELMER): Reason For Request: Pt's spouse reporting that [...] Disease, Sleep Apnea, Stroke, Osteoarthritis, Cholecystectomy, DepressionComments: [employer] verified the patient's name//address and phone number. [...] emergency treatment if needed -Alona Myles RN Head Refrigerating Engineer Organization Information for Lalit Lubin Legal Name: [facility] TransportationAddress : [address] [place] [address], [place] [address], USMedical Director: Billy MUNOZA No.: [id number] Head Refrigerating Engineer POC Test Results from Lalit Lubin - ALS Urine Dipstick (13:20:10)Urine leukocytes: 3+ LEUUrine nitrites: + NITUrine urobilinogen: - UROUrine protein: 1+ PROUrine pH: 5.0 pHUrine blood: - BLOUrine specific gravity: 1.015 SGUrine ketones: - KETUrine bilirubin: - BILUrine glucose: - GLU Rapid influenza antigen (13:20:11)Flu: - Rapid COVID antigen (13:20:12)COVID: - ..................... ..................... ..................... ..................... ..................... ..................... ............... Head Refrigerating Engineer Note From Lalit Lubin: This 88-year-old male with a history including but not limited to CHF, COPD, HTN, depression, atrial fibrillation, CAD, stroke, OA is well known to [facility] and well known to myself. His requested a visit today to address a dry cough and dysuria for several days. She tells me that he fell at home last Thursday and was taken to [facility]. He was found to be in atrial [...] of infection. [facility] treated this patient with a I provided [...] questions and are agreeable to this plan. [facility] Lab Orders: culture, urine: Performed ..................... ..................... ..................... ..................... ..................... ..................... ............... [facility] Consulted: uKrt Pineda ..................... ..................... ..................... ..................... ..................... ..................... ............... Disposition: Fulfilled Kurt Pineda MD [address] [facility], [place], [address], [employer] 02/07/2024 14:19:47 02/16/2024 text/html HPI: He is an 88 [...] in his life. Spoke w/ PCP, sending [facility] for eval as family would like to be seen by [facility] first. They declined ER at this time but are open if [facility] thinks they need to go. ..................... ..................... ..................... ..................... ..................... ..................... ............... CRC Nurse Triage Notes (Irene Payne - RN): Chief Complaints: Altered mental status PMH: Congestive Heart Failure, COPD/Asthma, Hypertension, Severe Persistent Mental Illness (SPMI), Arrhythmias (e.g., Atrial Fibrillation), Coronary Artery Disease, Sleep Apnea, Stroke, Osteoarthritis, Cholecystectomy, Depression Comments: HPI reviewed- NE Head Refrigerating Engineer Organization Information for Esequiel Croweutsil [employer] Business Legal Name: [employer] ? Address: [address] [place] [address], Paper Sample Clerk: Oliver Salinas MD CLIA No.: [id number] Head Refrigerating Engineer POC Test Results from Sebastien Deannsil [employer] Blood Glucose Measurement (12:56:58) Blood Glucose: 185 mg/dL ..................... ..................... ..................... ..................... ..................... ..................... ............... Head Refrigerating Engineer Note From Deann Crowe: Upon arrival, patient [...] 911 and pt is sent to the [place] ED via [facility]. SC9 clear without any incidents ..................... ..................... ..................... ..................... ..................... ..................... ............... [facility] Consulted: Petra Castillo ..................... ..................... ..................... ..................... ..................... ..................... ............... Disposition: Fulfilled Petra Castillo MD [address], [place], [address], [facility], [facility] 02/16/2024 16:29:26
--- OUTSIDE RECORDS SUMMARY | 2024-02-26 16:30 | XMS_ITS | Continuity of Care Document ---
Author Organization [employer] - [employer] Address [address] [place] [phone] Care Team Providers Care Residential Builder Name Role Phone HIM CCA OTHER KISHORE ROBERSON Primary Care Provider Assessment Encounter Date Assessment Date Assessment LastModified by Organization Details LastModified Time 02/07/2024 02/07/2024 I have reviewed and agree with the assessment and plan as documented by the geography head. I provided real time medical direction for this encounter and was immediately available to provide additional phone based assistance as needed. History as noted by geography head. Pt with history of COPD, CHF, Afib on AC. Pt is s/p fall and recent admit to [facility] 6 days ago fro Afib [...] None recorded. Lab culture, urine 2023 024 [facility], [address] [place] [address], [address], 4 20:09:15 urinalysis, dipstick 2023 024 [facility], [address] [place] [address], [address], 4 13:33:15 rapid SARS CoV 2 Ag, QL IA, respiratory specimen 2023 024 [facility], [address] [place] [address], [address], 4 13:33:15 rapid flu (A+B) 2023 024 [facility], [address] [place] [address], [address], 4 13:33:15 Referral None recorded. Procedures None recorded. Surgeries None recorded. Imaging None recorded. Medication Orders cefpodoxime 200 mg tablet 2023 [id number], [address] [place], [place], [id number], 4 13:33:20 ipratropium 0.5 mg-albutero l 3 mg (2.5 mg base)/3 mL nebulizatio n soln [facility], [address] [facility], [place], [address], 4 13:33:15 guaifenesin ER 600 mg tablet, extended release 12 hr 2023 [facility] #[id number], [address], [place], [phone], 4 13:37:50 albuterol sulfate HFA 90 mcg/actuati on aerosol inhaler 2023 [facility] #57173, [address], [place], [id number], 4 13:40:51 Patient TargetsNo targets recorded. Patient InstructionsNo instructions recorded. Reason for Referral None Reported. Results Created Date Observation Date Name Description Value Unit Range Abnormal Flag Note LastModifiedBy Organization Detail LastModifiedTime 02/07/20 24 02/07/2024 rapid flu (A+B) Flu negati ve Not Available [facility] [address] [place] [address], [address], 02/07/2024 13:28:35 02/07/20 24 02/07/2024 rapid SARS CoV 2 Ag, QL IA, respi rator y speci men rapid SARS CoV 2 Ag, QL IA, respiratory specimen negati ve Not Available [facility] [address] [place] [address], [address], 02/07/2024 13:28:29 Result Notes None recorded. Medical Equipment None Reported. Allergies Allergen ID Allergen Name Allergen Category Reaction Reaction Severity Criticality Documentation Date Start Date Code Code System Note Provider Name and Address Organization Details Recorded Time 937 dabigatra n etexilate medicatio n Not available Not available Not available 10/22/2021 69263 42 RxNorm Not Available [facility] - production 4 12:15:20 938 Product containin g angiotens in-conver ting enzyme inhibitor (product) medicatio n Not available Not available Not available 10/22/2021 49384 009 SNOMED Arti Messina MD [address] [facility],[address], [place], [phone], [facility], [employer] 2 17:14:14 939 ezetimibe medicatio n Not available Not available Not available 10/22/2021 70867 8 RxNorm Not Available [facility] - production 4 16:01:50 940 apixaban medicatio n Not available Not available Not available 10/22/2021 59712 30 RxNorm Not Available [facility] - production 4 16:01:50 941 Lipitor medicatio n Not available Not available Not available 10/22/2021 02305 5 RxNorm Not Available [facility] - production [...] Diagnosis/Indication Diagnosis SNOMED-CT Code Diagnosis ICD10 Code [id number] Uziel Crowe MD [facility] - [address] [address] 01/27/2024 17:55:12 01/28/2024 08:54:57 Low back pain 490036733 M54.50 [id number] Kurt Pineda MD [address] [address] 02/07/2024 13:22:25 02/08/2024 11:51:26 Urinary symptoms 831016812 R39.9 Cough 72249011 R05.9 Health Concerns Section Related Observation LastModified by Organization Detai ls LastModified Time None Recorded Concern Status LastModified by Organization Details LastModified Time None Recorded Payers Encounter Date Sequence Insurance Name Policy Number Policy Escamilla Covered Member ID Escamilla Member ID Guarantor Name 02/07/2024 1 [facility] - DOS ON OR AFTER 2022 - DUAL ELIGIBLE - [facility] OPTIONS AND ONE CARE (MEDICARE REPLACEMENT/ADV ANTAGE - HMO) Pal Da Silva [id number] Pal Da Silva Notes Date Note Type Note Provider Name and Address Organization Details Recorded Time 02/07/2024 text/html This was a supervised home visit with geography head Lalit Lubin. CRC Nurse Triage Notes (Chaitanya [...] Disease, Sleep Apnea, Stroke, Osteoarthritis, Cholecystectomy, DepressionComments: Drawing In Hand verified the patient's name//address and phone number. [...] emergency treatment if needed -Alona Myles RN Microelectronics Engineer Organization Information for Lalit Lubin - Yan[employer] Legal Name: [facility] TransportationAddres s: [address] [facility], [place] [address], Medical Director: [facility] No.: [id number] Microelectronics Engineer POC Test Results from Lalit Lubin - [employer] Urine Dipstick (13:20:10)Urine leukocytes: 3+ LEUUrine nitrites: + NITUrine urobilinogen: - UROUrine protein: 1+ PROUrine pH: 5.0 pHUrine blood: - BLOUrine specific gravity: 1.015 SGUrine ketones: - KETUrine bilirubin: - BILUrine glucose: - GLU Rapid influenza antigen (13:20:11)Flu: - Rapid COVID antigen (13:20:12)COVID: - .................... .................... .................... .................... .................... .................... .................... . Microelectronics Engineer Note From Lalit Lubin: This 88-year-old [...] home last Thursday and was taken to [facility]. He was found to be in [...] questions and are agreeable to this plan. [facility] Lab Orders: culture, urine: Performed .................... .................... .................... .................... .................... .................... .................... . [facility] Consulted: Kurt Pineda .................... .................... .................... .................... .................... .................... .................... . Disposition: Fulfilled Kurt Pineda MD [address] [facility],[address], [place], [address], KAREN - JILL HOLT 02/07/2024 14:19:47
--- OUTSIDE RECORDS SUMMARY | 2024-02-26 16:31 | XMS_ITS | Continuity of Care Document ---
Author Organization [employer] [place] [employer] - [facility] Address [address] [place] [phone] Care Team Providers Care Leather Tanner Name Role Phone HIM CCA OTHER KISHORE ROBERSON Primary Care Provider Assessment No assessment recorded. Plan of Treatment Reminders Order Date Submit Date Provider Last Modified By Organization Details Last Modified Time Details Appointments None recorded. Lab None recorded. Referral None recorded. Procedures None recorded. Surgeries None recorded. Imaging electrocard iogram 2023 [facility], [address] [place] [address], [address], 23:09:43 Medication Orders cephalexin 500 mg capsule 2023 024 [facility], [address] [place], [address], 21:36:43 cephalexin 500 mg capsule 2023 024 [facility], [address] [place], [address], 22:52:32 Patient TargetsNo targets recorded. Patient InstructionsNo instructions recorded. Reason for Referral None Reported. Results Created Date Observation Date Name Description Value Unit Range Abnormal Flag Note LastModifiedBy Organization Detail LastModifiedTime 12/11/1912/11/2023 elect anuel englegr am No observ ation record ed. [employer] [address], [address], 12/11/2023 23:09:40 Result Notes None recorded. Procedures Surgical History None recorded. Imaging Results Imaging Date Name Status LastModified by Organization Details LastModified Time 12/11/2023 electrocardiogram completed [facility] - [address], [place], [address], 12/11/2023 23:09:40 Procedure Notes None recorded. Medical Equipment None Reported. Allergies Allergen ID Allergen Name Allergen Category Reaction Reaction Severity Criticality Documentation Date Start Date Code Code System Note Provider Name and Address Organization Details Recorded Time 937 dabigatra n etexilate medicatio n Not available Not available Not available 10/22/2021 23946 42 RxNorm Not Available [facility] - production 4 12:15:20 938 Product containin g angiotens in-conver ting enzyme inhibitor (product) medicatio n Not available Not available Not available 10/22/2021 86912 009 SNOMED Arti Messina MD [address] [place] [address],[address], [place], [address] [place] [address] [facility] 2 17:14:14 939 ezetimibe medicatio n Not available Not available Not available 10/22/2021 77373 8 RxNorm Not Available [facility] - production 4 16:01:50 940 apixaban medicatio n Not available Not available Not available 10/22/2021 43785 30 RxNorm Not Available [facility] 4 16:01:50 941 Lipitor medicatio n Not available Not available Not available 10/22/2021 07872 5 RxNorm Not Available [facility] - production [...] % 98.1 [degF] 157.48 cm 75 /min 18735.4 g 19 /min 85 mm[Hg] 52 mm[Hg] Not Available [facility] - production 21:22:40 Social History None recorded. Functional Status None recorded. Mental Status None recorded. Family History Nothing Reported. Medical History No medical history recorded. Past Encounters Encounter ID Performer Location Encounter Start Date Encounter Closed Date Diagnosis/Indication Diagnosis SNOMED-CT Code Diagnosis ICD10 Code [id number] Melani Cespedes MD [facility] [address] [place] [phone] 11/16/2023 18:19:32 11/16/2023 20:41:54 Cough [id number] R05.9 [id number] EHSAN RODRIGUEZ MD [facility] [address] [place] [phone] 12/11/2023 21:22:23 12/12/2023 15:24:29 Cellulitis of toe of right foot [id number] L03.031 Health Concerns Section Related Observation LastModified by Organization Detai ls LastModified Time None Recorded Concern Status LastModified by Organization Details LastModified Time None Recorded Payers Encounter Date Sequence Insurance Name Policy Number Policy Escamilla Covered Member ID Escamilla Member ID Guarantor Name 12/11/2023 1 [facility] - DOS ON OR AFTER 2022 - DUAL ELIGIBLE - [employer] OPTIONS AND ONE CARE (MEDICARE REPLACEMENT/ADV ANTAGE - HMO) Pal Da Silva [id number] Pal Da Silva Notes Date Note Type [...] any additional information to process this visit. [employer] Organization Information for Jonathan Espinoza [employer] Business Legal Name: [facility] Address: [address] [place] [address], Supervisor Public Health Nursing: Billy Manzo MD [place] No.: [id number] [employer] POC Test Results from Jonathan Espinoza [facility] EKG (21:20:36) EKG test performed. Attachments uploaded as part of this test result can be found under Documents section. .................... .................... .................... .................... .................... .................... .................... . [employer] Note From Jonathan Espinoza: Pt chief complaint [...] pt to be in a ventricularly paced rhythm.[facility] unable to acquire a IV access [...] .................... . Disposition: Ruthann RODRIGUEZ MD [address] [facility],[address], [place], [address], [facility]EN - [employer] 12/11/2023 23:11:06
[2024-02-29 10:25] LABS: Glucose, Whole Blood 179 mg/dL (60-115)
== END 2024-02-26 19:31 | disposition expired ==
PROVIDERS: Emergency Provider Emergency Medicine
DX: I46.9 Cardiac arrest, cause unspecified (principal); J98.9 Respiratory disorder, unspecified; I11.0 Hypertensive heart disease with heart failure; I50.33 Acute on chronic diastolic (congestive) heart failure; E78.00 Pure hypercholesterolemia, unspecified; J44.9 Chronic obstructive pulmonary disease, unspecified; D64.9 Anemia, unspecified; I48.0 Paroxysmal atrial fibrillation; I44.2 Atrioventricular block, complete; K21.9 Gastro-esophageal reflux disease without esophagitis; Z95.0 Presence of cardiac pacemaker; Z86.73 Personal history of transient ischemic attack (TIA), and cerebral infarction without residual deficits; Z79.01 Long term (current) use of anticoagulants
CPT/HCPCS: 31500; 82947; 99281; 99285